=== PATIENT | female | born 1950 | race Caucasian/White ===

== ENCOUNTER 2017-03-26 11:20 | Inpatient (IN) | payer OTHER ==
[~2017-03-26] VITALS: Ht 162.6 cm; Wt 91.1 kg
[~2017-03-26 11:20] MED LIST: ALPR-385 PO; CALCTAB7 PO; CITA20TA9 PO; DSY100 PO; EPP3/2 IM; HYDR25TA4 PO; LEVO50TA6 PO; LRS10 PO; MAGN1TAB19 PO; MCRK20 PO; METO50TA17 PO; MORP1TAB12 PO; MRLP17 PO; MULT-506 PO; NORT10CA3 PO; NRV5 PO; PRAZ1CAP PO; PROC5TAB PO; PROM25TA16 PO; PRT40 PO; PTDOPS OPB; RXC5 PO; TRAM-10 PO
[2017-03-26] MEDS ORDERED: SODIUM CHLORIDE 0.9% 1000ML 1,000 ML IV STA (11:36)
--- NOTE | 2017-03-26 11:44 | EMERGENCY ROOM VISIT NOTE ---
History Report prepared by Fariba: Kuldip Bright Under the Supervision of: Dr. Alexx Ortiz D.O. First contact with patient: 11:34 Chief Complaint: CHEST PAIN Stated Complaint: CHEST PAIN Nursing Triage Summary: Pt states she has had chest pain off and on, center of chest, for the past 10- 11 days, was at her FMD office at [facility] (Dr Spann), pain 8 out of 10, and they summoned EMS. Pt was also nauseated, prehospital gave her 4 mg zofran ODT and 1 ntg sublingual. Pt has a port that was not accessed. IV attempt post NTG per paramedics. Pain remains the same. Pt was saturating 90% at the scene and was placed on 2 liters NC O2. Pts BP prior to NTG 114/90 BP post NTG 83/42 History of Present Illness The patient is a 67 year old female who presents to the Emergency Room with complaints of chest pain. The patient went to see her primary care physician today for chest pain which he describes a pressure. She states the pain is constant and in the middle of her chest. She doesn't a history of pulmonary embolism but was sent to the emergency department by ambulance for an abnormal EKG. The patient states that she does feel short of breath. The pain is also worse with exertion. She's had the pain for 11 days and states it is mostly constant but there are times when it feels better. She was given oxygen and nitroglycerin prior to arrival. Her blood pressure did drop prior to arrival. She was also noted to have a low oxygen saturation and was sent to the emergency department for an evaluation. The patient's pulse oxygen saturation was 90% on room air prior to arrival. In our emergency department she was 89% on room air. She feels significantly improved on oxygen. She also has a boot on her left foot for a "bad ankle sprain" he was put on by an orthopedic physician. The patient denies having any vomiting or diarrhea. She was treated with Zofran prior to arrival for nausea. The patient states that she has not had similar symptoms in the past but does state that she has a history of pulmonary embolism which felt different than this encounter. Although she also states that she is not entirely sure. Source of History: patient Onset: 11 days Position: chest Quality: pressure Timing: other (mostly constant) Modifying Factors (Worsening): exertion Associated Symptoms: + SOB, + nausea, No vomiting, No diarrhea Note: Associated symptoms: Low oxygen saturation. Review of Systems See HPI for pertinent positives & negatives. A total of 10 systems reviewed and were otherwise negative. Past Medical & Surgical Medical Problems: (1) Adjustment disorder with depressed mood (2) Cervical spondylolysis (3) Dyslipidemia (4) HTN (hypertension) (5) Hypothyroidism (6) Intra-abdominal abscess (7) Lumbago (8) Post-op pain (9) PTSD (post-traumatic stress disorder) (10) Scoliosis Surgical Problems: (1) H/O colonoscopy (2) H/O ovarian cystectomy (3) H/O repair of right rotator cuff (4) H/o right knee meniscus repair (5) H/O spinal fusion (6) S/P appendectomy Family History Cancer Cardiac disorder BROTHER Diabetes mellitus FH: CHF (congestive heart failure) Heart disease Hypertension FATHER MOTHER Lung disease Social History Smoking Status: Never Smoker Alcohol Use: none Drug Use: none Marital Status: single Housing Status: lives alone Occupation Status: retired Current/Historical Medications Scheduled Amlodipine Besylate (Amlodipine Besylate), 5 MG PO DAILY Calcium Carbonate-Vitamin D W/ (Caltrate 600 Plus), 1 TAB PO BID Citalopram Hydrobromide (Celexa), 1 TAB PO DAILY Hydrochlorothiazide (Hctz), 25 MG PO DAILY Levothyroxine Sodium (Levothyroxine Sodium), 1 TAB PO DAILY Magnesium Oxide (Mg Supplement (Magnesium Oxide), 400 MG PO BID Metoprolol Tartrate (Metoprolol Tartrate), 50 MG PO BID Morphine Sulfate (Morphine Sulfate Er), 30 MG PO Q12 Multivitamin (Multivitamin), 1 TAB PO DAILY Olopatadine Hydrochloride (Pataday), 1 DROPS OPB DAILY Pantoprazole (Pantoprazole Sodium), 40 MG PO QAM Polyethylene (Miralax), 17 GM PO DAILY Potassium Chloride (Klor-Con M20), 20 MEQ PO BID Prazosin Hcl (Minipress), 1 MG PO HS Trazodone HCl (Trazodone HCl), 100 MG PO HS Scheduled PRN Alprazolam (Xanax), 1 MG PO TID PRN for Anxiety Baclofen (Baclofen), 10 MG PO TID PRN for Muscle Spasm Epinephrine (Epipen 2-Lee), 0.3 MG IM UD PRN for ALLERGIC REACTION Oxycodone HCl (Oxycodone HCl), 5 MG PO QID PRN for Breakthrough Pain Prochlorperazine Maleate (Compazine), 10 MG PO for Nausea Promethazine HCl (Promethazine HCl), 25 MG PO BID PRN for Nausea Tramadol (Ultram), 50 MG PO Q6H PRN for Pain Allergies Coded Allergies: Latex (Verified Allergy, Intermediate, RASH, 03/26/17) Nickel (Verified Allergy, Intermediate, SEVERE DERMATITIS, 03/26/17) Aspirin (Verified Adverse Reaction, Unknown, bleeding ulcers, 03/26/17) 03/26/17--dr flores inquired about aspirin allergy & reviewd history--pt has had bleeding in past while on anticoagulation, as of 03/26/17--no gi ulcers present & aspirin ok to give Physical Exam Vital Signs Date Time Temp Pulse Resp B/P (MAP) Pulse Ox O2 Delivery O2 Flow Rate FiO2 03/26/17 13:11 72 17 125/63 94 Nasal Cannula 2.0 03/26/17 12:16 64 03/26/17 12:04 94 Nasal Cannula 2.0 03/26/17 11:59 61 16 116/63 94 Nasal Cannula 2.0 03/26/17 11:29 93 Nasal Cannula 2.0 03/26/17 11:26 36.9 70 17 89 Room Air Physical Exam GENERAL: Patient is awake and alert. She appears uncomfortable and anxious. She is not diaphoretic at this time. EYES: The conjunctivae are clear. The pupils are round and reactive. EARS, NOSE, MOUTH AND THROAT: The nose is without any evidence of any deformity. Mucous membranes are moist tongue is midline NECK: The neck is nontender and supple. RESPIRATORY: Normal respiratory effort is noted there is no evidence of wheezing rhonchi or rales CARDIOVASCULAR: Regular rate and rhythm noted there no murmurs rubs or gallops normal S1 normal S2 GASTROINTESTINAL: The abdomen is soft. Bowel sounds are present in all quadrants. Abdomen is nontender MUSCULOSKELETAL/EXTREMITIES: There is no evidence of gross deformity. There is a bruit on the left ankle. There is tenderness in the left calf. SKIN: There is no obvious evidence of any rash. Bilateral pedal edema was noted left greater than right. NEUROLOGIC: Patient is awake alert and oriented x3. Medical Decision & Procedures ER Provider Diagnostic Interpretation: Radiology results as stated below per my review and radiologist interpretation: CHEST ONE VIEW PORTABLE CLINICAL HISTORY: Respiratory distress. Dyspnea COMPARISON STUDY: Chest radiograph September 23, 2016. FINDINGS: A left subclavian [id number] is in place. There is no pneumothorax. Hazy bibasilar opacities have developed. There is pulmonary vascular congestion without overt edema. IMPRESSION: Interval development of hazy bibasilar opacities. In part, the findings could be related to overlying soft tissues although airspace disease, pulmonary edema or layering pleural effusions could appear similar. Electronically signed by: Gonsalo Villafana M.D. 03/26/2017 12:30 PM Dictated Date/Time: 03/26/2017 12:[address] ANGIOGRAM OF THE CHEST CLINICAL HISTORY: Atypical chest pain. COMPARISON STUDY: Chest x-ray dated 03/26/2017. Chest CT dated 02/16/2015 and 08/07/2014. TECHNIQUE: Following the IV administration of 100 cc of Optiray 320, CT angiogram of the chest was performed from the upper abdomen to the thoracic inlet utilizing the pulmonary embolus protocol. Images are reviewed in the axial, sagittal, and coronal planes. 3-D MIPS images are created and assessed. IV contrast was administered without complication. CT DOSE: 576.96 mGycm FINDINGS: Thyroid: Imaged portions of the thyroid gland are normal in size and attenuation. Thoracic aorta: There is mild ectasia of the ascending thoracic aorta which measures up to 3.9 cm in diameter. The remainder of the thoracic aorta is normal in caliber and the arch demonstrates standard 3-vessel anatomy. No dissection is seen. A left subclavian central venous infusion port is in place. Pulmonary vasculature: The pulmonary trunk is dilated measuring 3.5 cm in diameter. This suggests pulmonary artery hypertension. There are no filling defects identified in main, lobar, or segmental pulmonary branches to suggest pulmonary embolus. Heart: The heart is enlarged and without pericardial effusion. Lungs and pleural spaces: Emphysematous change is noted. There is volume loss in the left lung with hyperinflation of the right lung. Scarring and fibrosis is seen at the left lung base. Previous surgery/resection is not excluded. There is dependent atelectasis. No airspace consolidation is seen typical for pneumonia. Trace pleural effusions are identified. Diffuse intralobular septal thickening suggests a component of congestive failure. Scattered calcified granulomas are observed. The trachea and central airways are clear. Mediastinum: There are subcentimeter mediastinal lymph nodes. These are not pathologically enlarged by size criteria. A right paratracheal node image #193 measures 9 mm in short axis. Gracia: Clear. Axillae: There is no axillary lymphadenopathy. Upper abdomen: There is evidence of hepatic steatosis. A small hiatal hernia is identified. Skeletal structures: The skeletal structures are osteopenic. There are postoperative changes from extensive thoracolumbar laminectomy. Thoracolumbar scoliosis is observed. There is been resection of several left-sided ribs. No lytic or blastic bony lesions are seen. IMPRESSION: 1. There is no evidence of pulmonary embolus in the main, lobar, or segmental pulmonary arteries. 2. Cardiomegaly and emphysema with evidence of pulmonary artery hypertension. 3. There are trace pleural effusions. Diffuse intralobular septal thickening suggests a component of congestive failure. Clinical correlation will be required. 4. There is volume loss in the left lung with compensatory hyperinflation of the right lung. Correlate clinically for a history of previous surgery. 5. Trace pleural effusions are identified. 6. Hepatic steatosis. 7. There is mild ectasia of the ascending thoracic aorta which measures up to 3.9 cm. This is similar in appearance to prior studies. 8. Additional findings as above. Electronically signed by: Ivan Smith M.D. 03/26/2017 1:51 PM Dictated Date/Time: 03/26/2017 1:43 PM Laboratory Results Test 03/26/17 11:50 03/26/17 11:58 03/26/17 12:03 03/26/17 12:11 White Blood Count 6.68 K/uL (4.8-10.8) Red Blood Count 4.27 M/uL (4.2-5.4) Hemoglobin 13.1 g/dL (12.0-16.0) Hematocrit 37.6 % (37-47) Mean Corpuscular Volume 88.1 fL (80-100) Mean Corpuscular Hemoglobin 30.7 pg (25-34) Mean Corpuscular Hemoglobin Concent 34.8 g/dl (32-36) Platelet Count 227 K/uL (130-400) Mean Platelet Volume 9.5 fL (7.4-10.4) Neutrophils (%) (Auto) 58.8 % Lymphocytes (%) (Auto) 29.9 % Monocytes (%) (Auto) 8.5 % Eosinophils (%) (Auto) 2.1 % Basophils (%) (Auto) 0.6 % Neutrophils # (Auto) 3.92 K/uL (1.4-6.5) Lymphocytes # (Auto) 2.00 K/uL (1.2-3.4) Monocytes # (Auto) 0.57 K/uL (0.11-0.59) Eosinophils # (Auto) 0.14 K/uL (0-0.5) Basophils # (Auto) 0.04 K/uL (0-0.2) Prothrombin Time 10.7 SECONDS (9.0-12.0) Prothromb Time International Ratio 1.0 (0.9-1.1) Total Bilirubin 0.4 mg/dl (0.2-1) Direct Bilirubin 0.1 mg/dl (0-0.2) Aspartate Amino Transf (AST/SGOT) 24 U/L (15-37) Alanine Aminotransferase (ALT/SGPT) 27 U/L (12-78) Alkaline Phosphatase 97 U/L (45-117) Total Creatine Kinase 223 U/L (26-192) Creatine Kinase MB 3.6 ng/ml (0.5-3.6) Creatine Kinase MB Ratio 1.6 (0-3.0) Pro-B-Type Natriuretic Peptide 397 pg/ml (0-900) Total Protein 6.9 gm/dl (6.4-8.2) Albumin 3.6 gm/dl (3.4-5.0) Hepatitis C Antibody NEG (NEG) Bedside D-Dimer > 450 ng/mlFEU (0-450) Bedside Hemoglobin 13.3 g/dl (12.0-16.0) Bedside Hematocrit 39 % (37-47) Bedside Sodium 140 mEq/L (135-144) Bedside Potassium 3.7 mEq/L (3.3-5.0) Bedside Chloride 102 mEq/L (101-112) Bedside Total CO2 26 mEq/l (24-31) Bedside Blood Urea Nitrogen 10 mg/dl (7-18) Bedside Creatinine 0.6 mg/dl (0.6-1.3) Bedside Glucose (other) 112 mg/dl (70-99) Bedside Ionized Calcium (Corbin) 1.17 mmol/l (1.12-1.32) Test 03/26/17 13:55 Urine Color YELLOW Urine Appearance CLEAR (CLEAR) Urine pH 5.5 (4.5-7.5) Urine Specific Casper 1.012 (1.000-1.030) Urine Protein NEG (NEG) Urine Glucose (UA) NEG (NEG) Urine Ketones NEG (NEG) Urine Occult Blood NEG (NEG) Urine Nitrite NEG (NEG) Urine Bilirubin NEG (NEG) Urine Urobilinogen NEG (NEG) Urine Leukocyte Esterase NEG (NEG) Laboratory results per my review. Medications Administered Medications (Trade) Dose Ordered Sig/Pablo Route Start Time Stop Time Status Last Admin Dose Admin Sodium Chloride 1,000 ml @ 999 mls/hr Q1H1M STAT IV 03/26/17 11:36 03/26/17 12:36 DC 03/26/17 11:58 999 MLS/HR Morphine Sulfate (MoRPHine SULFATE INJ) 4 mg Q15M PRN IV 03/26/17 14:00 03/26/17 15:19 DC 03/26/17 14:07 4 MG Ondansetron HCl (Zofran Inj) 4 mg NOW STAT IV 03/26/17 13:59 03/26/17 14:01 DC 03/26/17 14:07 4 MG Pantoprazole Sodium 40 mg/ Syringe 10 ml @ 5 mls/min NOW ONCE IV 03/26/17 14:00 03/26/17 14:01 DC 03/26/17 14:20 5 MLS/MIN Alprazolam (Xanax Tab) 1 mg TID PRN PO 03/26/17 14:15 04/25/17 14:14 03/27/17 07:42 1 MG Baclofen (Lioresal Tab) 10 mg TID PRN PO 03/26/17 14:15 04/25/17 14:14 03/27/17 07:43 10 MG Oxycodone HCl (Roxicodone Immediate Rel Tab) 5 mg QID PRN PO 03/26/17 14:15 04/09/17 14:14 03/27/17 13:06 5 MG Tramadol HCl (Ultram Tab) 50 mg Q6H PRN PO 03/26/17 14:15 04/25/17 14:14 03/27/17 13:47 50 MG ECG Indication: chest pain Rate (beats per minute): 63 Rhythm: normal sinus Findings: nonspecific-ST abn (Anterolateral), T-wave inversion (Anterior), no ectopy Change: no significant change (09/17/2016) ED Course 1135: The patient was evaluated in room A9B. A complete history and physical examination were performed. 1136: Ordered NSS 1000 ml @ 999 mls/hr IV. 1358: I reevaluated the patient and she is resting comfortably. The patient verbally expressed understanding and agreement with the treatment plan. The patient will be evaluated for further treatment. 1359: Ordered Zofran Inj 4 mg IV. 1400: Ordered Pantoprazole Sodium 40 mg/Syringe 10 ml @ 5 mls/min IV, Morphine Sulfate Inj 4 mg IV PRN. 1410: I discussed the patient with Dr. Braulio Simental dye tub operator. She will evaluate the patient for further treatment. Medical Decision Prior records/ancillary studies reviewed. Triage Nursing notes reviewed. The patient's history was concerning for chest pain. Differential diagnosis: Etiologies such as cardiac ischemia, aortic dissection, pulmonary embolism, pneumonia, pneumothorax, musculoskeletal, infections, pericarditis, myocarditis , esophageal rupture, gastrointestinal, as well as others were entertained. Medication Reconciliation: I attest that I have personally reviewed the patient' s current medications list. Blood pressure screening: Patient was found to have normal blood pressure on screening and does not require follow-up. The patient is a 67-year-old female who presented to the emergency department from her primary care physician's office with chest pain and abnormal EKG. The patient had ongoing chest pain or the last 9-10 days. She states the pain is intermittent and sometimes associated with exertion as well as shortness of breath. She has a history of venous thromboembolic disease and is currently being treated for an injury on her left ankle. She has a brace on her left ankle. Initially I thought her condition could be consistent with pulmonary embolism because she had a pulse ox that was low in her history was suggestive of venous thromboembolic disease. The patient had a CT the chest which did not show any acute pulmonary embolism but did show some concerning findings which could be consistent with pulmonary hypertension or possibly congestive changes. I discussed the patient's laboratory and radiographic studies with her. She refused aspirin and was treated with nitroglycerin prior to arrival which caused her to have hypotension. She was given a fluid bolus as well as morphine for pain medication. She was feeling much better on subsequent reevaluation. I discussed this case with the on-call [facility] hospitalist. They've agreed to evaluate the patient in emergency apartment further management and disposition. [place] Drug Monitoring Program Search Results: patient reviewed within database, no issues identified Consults Time Called: 1400 Consulting Physician: Dr. Braulio Simental dye tub operator Returned Call: 1410 I discussed the patient with Dr. Braulio Simental dye tub operator. She will evaluate the patient for further treatment. Impression Primary Impression: Chest pain Additional Impressions: Abnormal EKG Hypoxia Elevated troponin Scribe Attestation The scribe's documentation has been prepared under my direction and personally reviewed by me in its entirety. I confirm that the note above accurately reflects all work, treatment, procedures, and medical decision making performed by me. Departure Information Dispostion Being Evaluated By Hospitalist Referrals Charanjit Spann M.D.([facility]) (PCP) Patient Instructions My [facility] Problem Qualifiers Primary Impression: Chest pain Chest pain type: unspecified Qualified Codes: R07.9 - Chest pain, unspecified
[2017-03-26 12:08] LABS: BASO % 0.6 %; BASO ABS # 0.04 K/uL (0-0.2); COMPLETE YES; EOS % 2.1 %; HEMATOCRIT 37.6 % (37-47); IG% 0.1 %; LYMPH % 29.9 %; MEAN CELL VOLUME 88.1 fL (80-100); MEAN CORPUSCULAR HEMOGLOBIN 30.7 pg (25-34); MEAN CORPUSCULAR HGB CONC 34.8 g/dl (32-36); MEAN PLATELET VOLUME 9.5 fL (7.4-10.4); MONO % 8.5 %; NEUT % 58.8 %; PLATELET COUNT 227 K/uL (130-400); RED BLOOD COUNT 4.27 M/uL (4.2-5.4); WHITE BLOOD COUNT 6.68 K/uL (4.8-10.8)
[2017-03-26 12:21] LABS: PARTIAL THROMBOPLASTIN RATIO 1.1; PROTHROMBIN TIME (PATIENT) 10.7 SECONDS (9.0-12.0)
[2017-03-26 12:24] LABS: ISTAT CREATININE 0.6 mg/dl (0.6-1.3); ISTAT HEMOGLOBIN 13.3 g/dl (12.0-16.0); ISTAT IONIZED CALCIUM 1.17 mmol/l (1.12-1.32)
[2017-03-26] MEDS ORDERED: OPTIRAY 320 IV PRN (12:30)
--- NOTE | 2017-03-26 12:32 | DIAGNOSTIC IMAGING REPORT ---
CHEST ONE VIEW PORTABLE CLINICAL HISTORY: Respiratory distress. Dyspnea COMPARISON STUDY: Chest radiograph September 23, 2016. FINDINGS: A left subclavian [id number] is in place. There is no pneumothorax. Hazy bibasilar opacities have developed. There is pulmonary vascular congestion without overt edema. IMPRESSION: Interval development of hazy bibasilar opacities. In part, the findings could be related to overlying soft tissues although airspace disease, pulmonary edema or layering pleural effusions could appear similar. Electronically signed by: Gonsalo Villafana M.D. 03/26/2017 12:30 PM Dictated Date/Time: 03/26/2017 12:26 PM
[2017-03-26 12:36] LABS: BUN/CREATININE RATIO 15.5 (10-20); CALCIUM 8.8 mg/dl (8.5-10.1); CREATININE 0.69 mg/dl (0.60-1.20); POTASSIUM 3.7 mmol/L (3.5-5.1)
[2017-03-26] MEDS ORDERED: LEVO75TA5 PO (12:42)
[2017-03-26 12:44] LABS: CKMB/CK RATIO 1.6 (0-3.0)
--- NOTE | 2017-03-26 13:53 | DIAGNOSTIC IMAGING REPORT ---
CT ANGIOGRAM OF THE CHEST CLINICAL HISTORY: Atypical chest pain. COMPARISON STUDY: Chest x-ray dated 03/26/2017. Chest CT dated 02/16/2015 and 08/07/2014. TECHNIQUE: Following the IV administration of 100 cc of Optiray 320, CT angiogram of the chest was performed from the upper abdomen to the thoracic inlet utilizing the pulmonary embolus protocol. Images are reviewed in the axial, sagittal, and coronal planes. 3-D MIPS images are created and assessed. IV contrast was administered without complication. CT DOSE: 576.96 mGycm FINDINGS: Thyroid: Imaged portions of the thyroid gland are normal in size and attenuation. Thoracic aorta: There is mild ectasia of the ascending thoracic aorta which measures up to 3.9 cm in diameter. The remainder of the thoracic aorta is normal in caliber and the arch demonstrates standard 3-vessel anatomy. No dissection is seen. A left subclavian central venous infusion port is in place. Pulmonary vasculature: The pulmonary trunk is dilated measuring 3.5 cm in diameter. This suggests pulmonary artery hypertension. There are no filling defects identified in main, lobar, or segmental pulmonary branches to suggest pulmonary embolus. Heart: The heart is enlarged and without pericardial effusion. Lungs and pleural spaces: Emphysematous change is noted. There is volume loss in the left lung with hyperinflation of the right lung. Scarring and fibrosis is seen at the left lung base. Previous surgery/resection is not excluded. There is dependent atelectasis. No airspace consolidation is seen typical for pneumonia. Trace pleural effusions are identified. Diffuse intralobular septal thickening suggests a component of congestive failure. Scattered calcified granulomas are observed. The trachea and central airways are clear. Mediastinum: There are subcentimeter mediastinal lymph nodes. These are not pathologically enlarged by size criteria. A right paratracheal node image #193 measures 9 mm in short axis. Gracia: Clear. Axillae: There is no axillary lymphadenopathy. Upper abdomen: There is evidence of hepatic steatosis. A small hiatal hernia is identified. Skeletal structures: The skeletal structures are osteopenic. There are postoperative changes from extensive thoracolumbar laminectomy. Thoracolumbar scoliosis is observed. There is been resection of several left-sided ribs. No lytic or blastic bony lesions are seen. IMPRESSION: 1. There is no evidence of pulmonary embolus in the main, lobar, or segmental pulmonary arteries. 2. Cardiomegaly and emphysema with evidence of pulmonary artery hypertension. 3. There are trace pleural effusions. Diffuse intralobular septal thickening suggests a component of congestive failure. Clinical correlation will be required. 4. There is volume loss in the left lung with compensatory hyperinflation of the right lung. Correlate clinically for a history of previous surgery. 5. Trace pleural effusions are identified. 6. Hepatic steatosis. 7. There is mild ectasia of the ascending thoracic aorta which measures up to 3.9 cm. This is similar in appearance to prior studies. 8. Additional findings as above. Electronically signed by: Ivan Smith M.D. 03/26/2017 1:51 PM Dictated Date/Time: 03/26/2017 1:43 PM
[2017-03-26] MEDS ORDERED: ONDANSETRON INJ 2 MG/ML 2 ML VIAL IV STA (13:59)
[2017-03-26] MEDS ORDERED: MoRPHine SULFATE 4 MG/ML 1 ML CARP\\VIAL IV PRN (14:00)
[2017-03-26] MEDS ORDERED: PANTOprazole INJ 40 MG in SYRINGE 0 ML IV ONE (14:00)
[2017-03-26 14:19] LABS: URINE APPEARANCE CLEAR (CLEAR); URINE BILIRUBIN NEG (NEG); URINE COLOR YELLOW; URINE NITRITE NEG (NEG); URINE PH 5.5 (4.5-7.5); URINE SPECIFIC GRAVITY 1.012 (1.000-1.030); UROBILINOGEN NEG (NEG)
[2017-03-26 14:20] LABS: MANUAL MICROSCOPIC REQUIRED? NO; REVIEW REQ? NO
[2017-03-26] MEDS ORDERED: POLYETHYLENE (MIRALAX) 17 GM PACK PO PRN (14:30)
[2017-03-26] MEDS ORDERED: ENOXAPARIN 40 MG/0.4 ML SYR SC SCH (14:30)
[2017-03-26] MEDS ORDERED: ACETAMINOPHEN 325 MG TAB PO PRN (14:30)
[2017-03-26] MEDS ORDERED: NITROGLYCERIN 0.4 MG SL PER TAB CHARGE SL PRN (14:30)
[2017-03-26] MEDS ORDERED: IV FLUIDS COMPLETED PRN (14:30)
[2017-03-26 15:00] VITALS: BP 125/69; PULSE 61; TEMP 37; O2SAT 94; Ht 162.6 cm; Wt 91.1 kg
--- NOTE | 2017-03-26 15:06 | History and Physical ---
History & Physical Date & Time of Service: Mar 26, 2017 at 14:49 Chief Complaint: Chest Pain Primary Care Physician: Charanjit Spann M.D.(MARGA) History of Present Illness Source: patient The patient is a 67 year old female with PMH as below who presents to the Emergency Room with complaints of chest pain. Patient is supposed to have Breast reduction surgery next week, for which she did see physician in [facility]. Per her, some EKG changes were noted and she was referred to her PCP to evaluate this further. Patient did not have any chest pain during the evaluation at [facility]. But for past 11 days, she has chest pain, left sided - pressure like , non radiating , with no aggravating/relieving factors, associated with some SOB, nausea, but no palpitations, diaphoresis. Denies any cough, worsening of leg swelling, fever, chills. For this, she went to see her PCP today who did EKG which revealed ST segment depressions, which were reviewed by cardiology as well and was referred to ER for further evaluation. Of note, she was supposed to have Stress echo tomorrow. In ED, she c/o chest pain , left sided. Asking for IV pain medications, prefers IV narcotics. EKG- compared to one on 09/17/16 shows no acute changes, has T wave inversions in leads V-V3, q wave in III, which are old, Troponin slightly elevated 0.258 CXR- bibasilar opacities, CT scan done sec to elevated d dimer- no PE, possible pulmonary edema. Will admit her for chest pain with elevated troponin- for further evaluation and mx. Past Medical/Surgical History Medical Problems: (1) Adjustment disorder with depressed mood Status: Chronic (2) Cervical spondylolysis Status: Chronic (3) Dyslipidemia Status: Chronic (4) HTN (hypertension) Status: Chronic (5) Hypothyroidism Status: Chronic (6) Lumbago Status: Chronic (7) Post-op pain Status: Chronic (8) PTSD (post-traumatic stress disorder) Status: Chronic (9) Scoliosis Status: Chronic Surgical Problems: (1) H/O colonoscopy Permanent Comment: 03/08/2015- ischemic colitis, diverticulosis Status: Chronic (2) H/O ovarian cystectomy Status: Chronic (3) H/O repair of right rotator cuff Status: Chronic (4) H/o right knee meniscus repair Status: Chronic (5) H/O spinal fusion Permanent Comment: 1st surgery in [place], then multiple surgeries Dr. Catherine at [facility] Status: Chronic (6) S/P appendectomy Status: Chronic Family History Cancer Cardiac disorder BROTHER Diabetes mellitus FH: CHF (congestive heart failure) Heart disease Hypertension FATHER MOTHER Lung disease Social History Smoking Status: Never Smoker Drug Use: none Marital Status: single Housing status: lives alone Occupational Status: retired Immunizations History of Influenza Vaccine: N/A Influenza Vaccine Date: Jul 26, 2012 History of Tetanus Vaccine?: Yes Tetanus Immunization Date: Jun 19, 2010 History of Pneumococcal: Yes Pneumococcal Date: Jun 01, 2012 History of Hepatitis B Vaccine: No Multi-Drug Resistant Organisms History of MDRO: No Allergies Coded Allergies: Latex (Unverified Allergy, Intermediate, RASH, 03/26/17) Nickel (Verified Allergy, Intermediate, SEVERE DERMATITIS, 03/26/17) Aspirin (Verified Allergy, Unknown, bleeding ulcers, 03/26/17) Home Medications Scheduled Amlodipine Besylate (Amlodipine Besylate), 5 MG PO DAILY Calcium Carbonate-Vitamin D W/ (Caltrate 600 Plus), 1 TAB PO BID Citalopram Hydrobromide (Celexa), 1 TAB PO DAILY Hydrochlorothiazide (Hctz), 25 MG PO DAILY Levothyroxine Sodium (Levothyroxine Sodium), 1 TAB PO DAILY Magnesium Oxide (Mg Supplement (Magnesium Oxide), 400 MG PO BID Metoprolol Tartrate (Metoprolol Tartrate), 50 MG PO BID Morphine Sulfate (Morphine Sulfate Er), 30 MG PO Q12 Multivitamin (Multivitamin), 1 TAB PO DAILY Olopatadine Hydrochloride (Pataday), 1 DROPS OPB DAILY Pantoprazole (Pantoprazole Sodium), 40 MG PO QAM Polyethylene (Miralax), 17 GM PO DAILY Potassium Chloride (Klor-Con M20), 20 MEQ PO BID Prazosin Hcl (Minipress), 1 MG PO HS Trazodone HCl (Trazodone HCl), 100 MG PO HS Scheduled PRN Alprazolam (Xanax), 1 MG PO TID PRN for Anxiety Baclofen (Baclofen), 10 MG PO TID PRN for Muscle Spasm Epinephrine (Epipen 2-Lee), 0.3 MG IM UD PRN for ALLERGIC REACTION Oxycodone HCl (Oxycodone HCl), 5 MG PO QID PRN for Breakthrough Pain Prochlorperazine Maleate (Compazine), 10 MG PO for Nausea Promethazine HCl (Promethazine HCl), 25 MG PO BID PRN for Nausea Tramadol (Ultram), 50 MG PO Q6H PRN for Pain Review of Systems Constitutional: No fever, No chills Eyes: No worsening of vision, No eye pain ENT: No hearing loss, No nasal symptoms Respiratory: No cough, No sputum, No wheezing Cardiovascular: + chest pain, No edema, No palpitations Abdomen: + nausea, No pain, No vomiting, No diarrhea Genitourinary - Female: No dysuria, No urinary frequency Neurologic: No memory loss, No paralysis Endocrine: No fatigue Hematologic / Lymphatic: No abnormal bleeding/bruising Integumentary: No rash Physical Exam Vital Signs Date Time Temp Pulse Resp B/P (MAP) Pulse Ox O2 Delivery O2 Flow Rate FiO2 03/26/17 14:36 72 17 125/63 94 03/26/17 13:11 72 17 125/63 94 Nasal Cannula 2.0 03/26/17 12:16 64 03/26/17 12:04 94 Nasal Cannula 2.0 03/26/17 11:59 61 16 116/63 94 Nasal Cannula 2.0 03/26/17 11:29 93 Nasal Cannula 2.0 03/26/17 11:26 36.9 70 17 89 Room Air General Appearance: no apparent distress Head: normocephalic, atraumatic Eyes: PERRL ENT: hearing grossly normal Neck: supple, no JVD Respiratory/Chest: lungs clear, + pertinent finding (reproducible tenderness) Cardiovascular: regular rate, rhythm, no edema Abdomen/GI: normal bowel sounds, non tender, soft Extremities/Musculoskelatal: normal inspection, no calf tenderness Neurologic/Psych: alert, oriented x 3, + pertinent finding (no deficits) Skin: normal color Diagnostics Laboratory Results Results Past 24 Hours Test 03/26/17 11:50 03/26/17 12:03 03/26/17 12:11 03/26/17 13:55 Range/Units White Blood Count 6.68 4.8-10.8 K/uL Red Blood Count 4.27 4.2-5.4 M/uL Hemoglobin 13.1 12.0-16.0 g/dL Hematocrit 37.6 37-47 % Mean Corpuscular Volume 88.1 80-100 fL Mean Corpuscular Hemoglobin 30.7 25-34 pg Mean Corpuscular Hemoglobin Concent 34.8 32-36 g/dl Platelet Count 227 130-400 K/uL Mean Platelet Volume 9.5 7.4-10.4 fL Neutrophils (%) (Auto) 58.8 % Lymphocytes (%) (Auto) 29.9 % Monocytes (%) (Auto) 8.5 % Eosinophils (%) (Auto) 2.1 % Basophils (%) (Auto) 0.6 % Neutrophils # (Auto) 3.92 1.4-6.5 K/uL Lymphocytes # (Auto) 2.00 1.2-3.4 K/uL Monocytes # (Auto) 0.57 0.11-0.59 K/uL Eosinophils # (Auto) 0.14 0-0.5 K/uL Basophils # (Auto) 0.04 0-0.2 K/uL RDW Standard Deviation 49.9 36.4-46.3 fL RDW Coefficient of Variation 15.5 11.5-14.5 % Immature Granulocyte % (Auto) 0.1 % Immature Granulocyte # (Auto) 0.01 0.00-0.02 K/uL Prothrombin Time 10.7 9.0-12.0 SECONDS Prothromb Time International Ratio 1.0 0.9-1.1 Activated Partial Thromboplast Time 28.9 21.0-31.0 SECONDS Partial Thromboplastin Ratio 1.1 Sodium Level 142 136-145 mmol/L Potassium Level 3.7 3.5-5.1 mmol/L Chloride Level 106 98-107 mmol/L Carbon Dioxide Level 27 21-32 mmol/L Anion Gap 9.0 17.0 16-25 mmol/L Blood Urea Nitrogen 11 7-18 mg/dl Creatinine 0.69 0.60-1.20 mg/dl Est Creatinine Clear Calc Drug Dose 85.1 ml/min Estimated GFR () 102.9 Estimated GFR (Non- 88.8 BUN/Creatinine Ratio 15.5 10-20 Random Glucose 107 70-99 mg/dl Calcium Level 8.8 8.5-10.1 mg/dl Total Bilirubin 0.4 0.2-1 mg/dl Direct Bilirubin 0.1 0-0.2 mg/dl Aspartate Amino Transf (AST/SGOT) 24 15-37 U/L Alanine Aminotransferase (ALT/SGPT) 27 12-78 U/L Alkaline Phosphatase 97 45-117 U/L Total Creatine Kinase 223 26-192 U/L Creatine Kinase MB 3.6 0.5-3.6 ng/ml Creatine Kinase MB Ratio 1.6 0-3.0 Troponin I 0.258 0-0.045 ng/ml Pro-B-Type Natriuretic Peptide 397 0-900 pg/ml Total Protein 6.9 6.4-8.2 gm/dl Albumin 3.6 3.4-5.0 gm/dl Bedside D-Dimer > 450 0-450 ng/mlFEU Bedside Hemoglobin 13.3 12.0-16.0 g/dl Bedside Hematocrit 39 37-47 % Bedside Sodium 140 135-144 mEq/L Bedside Potassium 3.7 3.3-5.0 mEq/L Bedside Chloride 102 101-112 mEq/L Bedside Total CO2 26 24-31 mEq/l Bedside Blood Urea Nitrogen 10 7-18 mg/dl Bedside Creatinine 0.6 0.6-1.3 mg/dl Bedside Glucose (other) 112 70-99 mg/dl Bedside Ionized Calcium (Corbin) 1.17 1.12-1.32 mmol/l Urine Color YELLOW Urine Appearance CLEAR CLEAR Urine pH 5.5 4.5-7.5 Urine Specific [place] 1.012 1.000-1.030 Urine Protein NEG NEG Urine Glucose (UA) NEG NEG Urine Ketones NEG NEG Urine Occult Blood NEG NEG Urine Nitrite NEG NEG Urine Bilirubin NEG NEG Urine Urobilinogen NEG NEG Urine Leukocyte Esterase NEG NEG Diagnostic Radiology CXR IMPRESSION: Interval development of hazy bibasilar opacities. In part, the findings could be related to overlying soft tissues although airspace disease, pulmonary edema or layering pleural effusions could appear similar. CT CHEST IMPRESSION: 1. There is no evidence of pulmonary embolus in the main, lobar, or segmental pulmonary arteries. 2. Cardiomegaly and emphysema with evidence of pulmonary artery hypertension. 3. There are trace pleural effusions. Diffuse intralobular septal thickening suggests a component of congestive failure. Clinical correlation will be required. 4. There is volume loss in the left lung with compensatory hyperinflation of the right lung. Correlate clinically for a history of previous surgery. 5. Trace pleural effusions are identified. 6. Hepatic steatosis. 7. There is mild ectasia of the ascending thoracic aorta which measures up to 3.9 cm. This is similar in appearance to prior studies. 8. Additional findings as above. Impression Assessment and Plan PROBABLE NSTEMI Sent from PCP office for chest pain, EKG changes, to rule out ischemia. Patient c/o chest pain, atypical, reproducible tenderness, not relieved by NTG. Has had multiple episodes of chest pain in past, non cardiac per notes -EKG in ED- T wave inversions V1-V3, Q wave in Lead III, old compared to EKG . -Troponin 0.258 -Allergic to aspirin, but secondary to ulcer---> will go ahead and give it. -IV Heparin - therapeutic per cardiology -Continue with Metoprolol 50 mg PO BID, start Aspirin, Statin -Trend troponin, Echocardiogram, Lipid panel in AM, HBA1C in AM. CT chest done due to elevated d dimer- No PE, possible pulmonary congestion, but clinically not volume overloaded and BNP 397 -Discussed case with cardiology- Considering cardiac cath depending on Echo results. ABNORMAL CT SCAN -Shows ectasia - ascending thoracic aorta up to 3.9 cm -Possible pulmonary congestion, however clinically no signs of congestion, BNP 397 HX OF CYCLICAL VOMITING SYNDROME Has had this issue in past, currently stable ANEMIA, CHRONIC -Stable CHRONIC PAIN ON NARCOTICS- -On Morphine 30 mg q 12 hours at home -Wants more IV narcotics. Received IV morphine 4 mg in ER\ -On Baclofen TID as at home DEPRESSION/ANXIETY -Continue with citalopram HYPERTENSION -Stable -Continue with home medications HYPOTHYROIDISM -Continue with synthroid DVT proph- IV heparin FULL CODE DISPOSITION Admit to telemetry Level of Care Telemetry Resuscitation Status FULL RESUSCITATION VTE Prophylaxis VTE Risk Assessment Done? Y/N: Yes Risk Level: Moderate Given or contraindicated: Other Anticoagulation (IV HEPARIN)
[2017-03-26] MEDS: NITROGLYCERIN OINT 2% 1GM PACKET EXT SCH ×2 (16:00→21:57)
[2017-03-26] MEDS ORDERED: ATORVASTATIN 40 MG TAB PO ONE (16:00)
[2017-03-26] MEDS: HEPARIN 25,000 UNIT/500ML D5W 500 ML IV PRN (16:23)
--- NOTE | 2017-03-26 16:42 | Cardiology Consultation ---
Cardiology Consultation Date of Consultation: Mar 26, 2017 History of Present Illness Ester Lua is a 67 year old female seen in cardiology consultation per the request of Dr Ruma Ramsey for the evaluation of chest discomfort. Care provider today described 10 days of waxing and waning chest discomfort that is been present at rest. She notes discomfort is worse when she takes a deep breath in. It is also resume when she does minimal movement such as moving her arms in bed. She is very concerned about this and is tearful when I talk to her on the telemetry floor in room 240-2. She has a complex past medical history includes chronic lumbar and thoracic back pain. She has been [place] recently [place] [facility] [place] plans for upcoming breast reduction surgery. As part of her preoperative evaluation she underwent an EKG at [facility] on 03/19/17 revealed sinus rhythm with age- indeterminate inferior infarction pattern with Q waves in lead III and AVF that was a chronic finding. There are also T-wave inversions noted in leads V1 to V3. She was counseled that she needed to follow-up with her primary care provider regarding his EKG changes. Although she states that she has had chest pain for 10 days, reportedly she was not having chest pain at the time of the initial EKG. Multiple tracings reviewed that been performed both at [facility] as well as at [facility], and the anterior T-wave inversions as well as age- indeterminate inferior infarction pattern relatively unchanged dating back to at least July 2016. EKG performed in the emergency department today reveal similar changes. There is concern about new ST segment depression on EKG performed the clinic today 03/26/17 for my review this is a limited tracing due to some degree of baseline artifact, and is somewhat helpful in comparison to the other tracings. The patient has an apparent long-standing history of recurrent chest discomfort and was followed by the [facility] [place] practice for many years. Review of her past records left and right heart catheterization took place at [facility] on 06/18/[address] Vance. Per the procedure note the cardiac catheterization was performed due to ongoing chest pain and shortness of breath with a previous stress test. Right sided hemodynamics. The patient went on to have coronary angiography that revealed a left dominant system with a nondominant right coronary artery. Left anterior descending coronary artery reportedly had mild luminal irregularities in the proximal and midportion graded as 20 and 30% stenosis. There is a noted 30% lesion in the left PDA branch. Ongoing medication therapy and risk factor modification was recommended for what was felt to be noncardiac chest discomfort at that time. The patient was seen by Dr Rodriguez cardiology consultation during an inpatient stay in July 2014 at which time was felt that her chest discomfort was musculoskeletal in etiology. In March 2016 the patient had a nonischemic response to dobutamine stress echocardiogram and [facility]. September 2016 the patient had abdominal surgery and chest pain a very mild elevation in her cardiac enzymes at that time. He was felt that her chest discomfort was not cardiac perhaps related to postoperative pain versus esophageal spasm was felt that the troponin elevation was due to postoperative myocardial demand. The patient was treated conservatively without further cardiac testing at that time. History Past Medical History: 1. Chart history of "aspirin allergy "when I spoke to the patient about this she stated that she was producing diagnosed with "ulcers" told not to take aspirin. She last underwent EGD in August 2016 for hematemesis have a hiatal hernia. There was no evidence of bleeding Bleeding. Her stomach was reportedly normal at that time. 2. History of pulmonary embolism 2012 with noted right bicep hematoma prompting discontinuation of anticoagulants and placement of an inferior vena cava filter 3. Chronic lumbar and thoracic back pain postlaminectomy syndrome 4. Postpolio syndrome 5. Post traumatic stress disorder Past Surgical History: 1. Cardiac catheterization 06/18/12 mild nonobstructive coronary atherosclerosis. 2. Abdominal surgery August 2016 with incision and debridement of infection and abdominal wall hematoma line 3. Colonoscopy findings of diverticulosis and ischemic colitis 3. EGD August 2016 as noted above 4. Spinal fusion, 5 past back surgeries Social History: She is single. She is a nonsmoker. No chronic alcohol use. Family History: Positive for CAD, heart attack and both parents Review Of Systems Patient complains of diffuse pain. She also has chest pain. Allergies Coded Allergies: Latex (Verified Allergy, Intermediate, RASH, 03/26/17) Nickel (Verified Allergy, Intermediate, SEVERE DERMATITIS, 03/26/17) Aspirin (Verified Adverse Reaction, Unknown, bleeding ulcers, 03/26/17) 03/26/17--dr flores inquired about aspirin allergy & reviewd history--pt has had bleeding in past while on anticoagulation, as of 6/8/17--no gi ulcers present & aspirin ok to give Medications Reported Home Medications Medications Dose Route/Sig Max Daily Dose Days Date Category Dose Instructions Levothyroxine Sodium 75 Mcg Tab 1 Tab PO DAILY 03/26/17 Reported Pantoprazole Sodium (Pantoprazole) 40 Mg Tab 40 Mg PO QAM 30 09/22/16 Rx Amlodipine Besylate 5 Mg Tab 5 Mg PO DAILY 09/22/16 Reported Oxycodone HCl 5 Mg Tab 5 Mg PO QID PRN 5 09/22/16 Rx Celexa (Citalopram Hydrobromide) 20 Mg Tab 1 Tab PO DAILY 30 07/09/16 Reported Trazodone HCl 100 Mg Tab 100 Mg PO HS 07/09/16 Reported Hctz (Hydrochlorothiazide) 25 Mg Tab 25 Mg PO DAILY 07/09/16 Reported Compazine (Prochlorperazine Maleate) 5 Mg Tab 10 Mg PO PRN 07/09/16 Reported Morphine Sulfate Er (Morphine Sulfate) 30 Mg Tab 30 Mg PO Q12 10 02/11/16 Rx Xanax (Alprazolam) 1 Mg Tab 1 Mg PO TID PRN 10 02/11/16 Rx Miralax (Polyethylene) 17 Gm Pow 17 Gm PO DAILY 30 02/11/16 Rx Klor-Con M20 (Potassium Chloride) 20 Meq Tabcr 20 Meq PO BID 7 02/11/16 Rx Please take twice daily for 1 week and then have your bloodwork checked. Metoprolol Tartrate 50 Mg Tab 50 Mg PO BID 30 02/11/16 Rx Minipress (Prazosin Hcl) 1 Mg Cap 1 Mg PO HS 02/05/16 Reported Pataday (Olopatadine Hydrochloride) 37 Drops/2.5 Ml Soln 1 Drops OPB DAILY 30 02/05/16 Reported Magnesium Oxide (Magnesium Oxide (Mg Supplement) 400 Mg Tab 400 Mg PO BID 02/05/16 Reported Caltrate 600 Plus (Calcium Carbonate-Vitamin D W/) 1 Tab Tab 1 Tab PO BID 06/26/15 Reported Promethazine HCl 25 Mg Tab 25 Mg PO BID PRN 06/26/15 Reported Epipen 2-Lee (Epinephrine) 0.3 Mg Inj 0.3 Mg IM UD PRN 06/26/15 Reported INJECT INTO OUTTER THIGH FOLLOWING DIRECTIONS ON PACKAGE AND TO GO EMERGENCY ROOM. Ultram (Tramadol HCl) 50 Mg Tab 50 Mg PO Q6H PRN 06/26/15 Reported Baclofen 10 Mg Tab 10 Mg PO TID PRN 06/26/15 Reported Multivitamin (Multivitamins) Tab 1 Tab PO DAILY 08/25/11 Reported Physical Exam Vital Signs (Last 8hrs): Last 8 Hrs Date Time Temp Pulse Resp B/P (MAP) Pulse Ox O2 Delivery O2 Flow Rate FiO2 03/26/17 15:00 37.0 61 18 125/69 94 Nasal Cannula 2.0 03/26/17 14:36 72 17 125/63 94 03/26/17 13:11 72 17 125/63 94 Nasal Cannula 2.0 03/26/17 12:16 64 03/26/17 12:04 94 Nasal Cannula 2.0 03/26/17 11:59 61 16 116/63 94 Nasal Cannula 2.0 03/26/17 11:29 93 Nasal Cannula 2.0 03/26/17 11:26 36.9 70 17 89 Room Air General Appearance: Alert and Oriented x3. Mild distress. Head: Normocephalic Atraumatic. Eyes: PERRLA, EOMI, conjunctiva and sclera clear Neck: Supple. No carotid bruits noted. No JVD. No HJD. Respiratory: Breath sounds clear to auscultation bilaterally. No w/r/r. Cardiovascular: Reg rate and rhythm. S1 and S2 noted. No murmurs, rubs, gallops. PMI non displace. Abdomen: Normal bowel sounds, soft nontender. no abdominal bruits. Extremities: No edema, no clubbing or cyanosis. distal pulses 2/4 bilaterally. Neuro: No focal deficits. Data Last Resulted 03/26/17 11:50 Red Blood Count 4.27, Mean Corpuscular Volume 88.1, Mean Corpuscular Hemoglobin 30.7, Mean Corpuscular Hemoglobin Concent 34.8, Mean Platelet Volume 9.5, Neutrophils (%) (Auto) 58.8, Lymphocytes (%) (Auto) 29.9, Monocytes (%) (Auto) 8.5, Eosinophils (%) (Auto) 2.1, Basophils (%) (Auto) 0.6, Neutrophils # (Auto) 3.92, Lymphocytes # (Auto) 2.00, Monocytes # (Auto) 0.57, Eosinophils # (Auto) 0.14, Basophils # (Auto) 0.04 Last Resulted 03/26/17 11:50 Past 24 Hours Test 03/26/17 11:50 Range/Units Creatine Kinase MB 3.6 0.5-3.6 ng/ml Creatine Kinase MB Ratio 1.6 0-3.0 Prothromb Time International Ratio 1.0 0.9-1.1 Prothrombin Time 10.7 9.0-12.0 SECONDS Total Creatine Kinase 223 H 26-192 U/L Troponin I 0.258 *H 0-0.045 ng/ml EKG tracings as outlined above. CTA was negative for pulmonary embolism. Assessment & Plan Impression: 67-year-old female 1. Chest discomfort, ongoing over several days with no acute EKG changes, mild elevation in CPK and troponin, 0.258 ng/ml. 2. Chronic pain syndrome with chart history of chronic back pain, fibromyalgia , breast reduction surgery being contemplated to help treat her chronic pain. Chronic narcotic analgesic dependence. 3. Family history of ischemic heart disease in both parents 4. Long-standing history of recurrent chest pain, cardiac catheterization 2011 with mild nonobstructive CAD. Discussion/recommendations: The patient had a similar mild elevation in her cardiac enzymes on 09/17/16 and 09/18/16 after abdominal surgery was treated conservatively with observation at that time. Although she describes chest discomfort at present, repeat EKG performed 03/26/17 and 1617 hrs. and reviewed independently by the undersigned is relatively unchanged me with age-indeterminate inferior infarction pattern Q waves in lead III and AVF. She has T-wave inversions in leads V1 to V3 which are unchanged compared to tracings dating back to 2016. She does have mild T-wave changes in the lateral precordial leads V4 to V6 which appear to be new. See no ST segment elevation present. After clarifying that she has not had a true allergy to aspirin, requested that the patient receive 324 mg of aspirin stat PCU. Heparin infusion is going to be initiated. Topical nitroglycerin ointment will be applied. She is to maintain her home dose of metoprolol. Atorvastatin has been ordered to start 40 mg by mouth daily first dose as soon as possible. Stat bedside resting echocardiogram was performed and reviewed by the undersigned revealing left ventricular wall motion. Recommend patient remains in telemetry for further observation and cardiac enzymes are going to be trended. No indication for emergent coronary angiography at the present time, further recommendations be forthcoming as her hospital stay develops. The EKG changes difficult to interpret, as there is a chronic nature to them. If she was free of discomfort I would question based on her past history is the anterior T-wave changes are due to her body habitus rather than ischemia. Given her clinical presentation however I think systemic anticoagulation close observation is warranted. Adrianne Flores, DO
[2017-03-26] MEDS ORDERED: ASPIRIN 81 MG CHEW PO SCH (17:00)
--- NOTE | 2017-03-26 17:02 | ECHOCARDIOGRAM REPORT ---
*NOTICE TO RECEIVING DEMOCRAT AGENCY This information is strictly Confidential and protected under [place] law. [place] law prohibits you from making any further disclosure of this information unless further disclosure is expressly permitted by the written consent of the person to whom it pertains or is authorized by law. A general authorization for the release of medical or other information is not sufficient for this purpose. Hospital accepts no responsibility if the information is made available to any other person, INCLUDING THE PATIENT. Interpretation Summary * Name: JOVANNI DE SANTIAGO Study Date: 03/26/2017 03:29 PM BP: 125/63 mmHg * Patient Location: C.2T\S\S240\S\2 HR: 72 * : 1950 (M/d/yyyy) Gender: Female Height: 64 in * Age: 67 yrs Ethnicity: CA Weight: 205 lb * Ordering Physician: Ruma Ramsey. * Referring Physician: Charanjit Spann) * Performed By: Destini Marroquin RDCS * * Reason For Study: Chest pain * BSA: 2.0 m2 * -- Conclusions -- * The left ventricular wall motion is normal. * Ejection Fraction = 55-60%. * Grade I diastolic dysfunction, (abnormal relaxation pattern). * The right ventricle is normal in size and function. * Doppler findings do not suggest pulmonary hypertension. Procedure Details * A complete two-dimensional transthoracic echocardiogram was performed (2D, M-mode, Doppler and color flow Doppler). * A contrast injection of Definity was performed to improve assessment of LV function. * Contrast was injected into an intravenous site in the central line. * One vial of Definity ultrasound contrast was diluted in normal saline to a total volume of 10 ml. A total of '2' ml of solution was administered during imaging. * Lot # [id number] of Definity utilized for procedure. * Expiration date MAY 05. * The attending nurse who injected the contrast agent was Sam Paul RN. Left Ventricle * The left ventricle is normal in size. * There is normal left ventricular wall thickness. * Left ventricular systolic function is normal. * Ejection Fraction = 55-60%. * The left ventricular wall motion is normal. Right Ventricle * The right ventricle is normal in size and function. * The right ventricular systolic function is normal as assessed by tricuspid annular plane systolic excursion (TAPSE) (normal >1.5 cm). Atria * The left atrial size is normal. * Right atrial size is normal. * There is no evidence of atrial septal defect, but resolution does not allow assessment for a patent foramen ovale. Mitral Valve * The mitral valve is normal. * There is no mitral valve stenosis. * Significant mitral regurgitation is absent. Tricuspid Valve * The tricuspid valve is normal. * There is no tricuspid stenosis. * Significant tricuspid regurgitation is absent. * Doppler findings do not suggest pulmonary hypertension. Aortic Valve * The aortic valve is trileaflet. * Aortic stenosis is absent. * There is no significant aortic regurgitation. Pulmonic Valve * The pulmonary valve is not well seen, but the Doppler examination is normal without significant regurgitation or stenosis. Great Vessels * The aortic root and proximal ascending aorta are normal sized. Pericardium/Pleural * There is no pericardial effusion. Great Vessels * Normal inferior vena cava diameter and respiratory variation suggests normal central venous pressure. Left Ventricular Diastolic Function * Grade I diastolic dysfunction, (abnormal relaxation pattern). MMode 2D Measurements and Calculations IVSd 1.1 cm LVIDd 4.0 cm LVIDs 2.7 cm LVPWd 1.1 cm IVS/LVPW 0.98 FS 31.6 % EDV(Teich) 69.2 ml ESV(Teich) 27.5 ml EF(Teich) 60.2 % EDV(cubed) 63.1 ml ESV(cubed) 20.1 ml EF(cubed) 68.1 % LV mass(C)d 142.0 grams LV mass(C)dI 71.8 grams/m\S\2 SV(Teich) 41.7 ml SI(Teich) 21.1 ml/m\S\2 SV(cubed) 42.9 ml SI(cubed) 21.7 ml/m\S\2 Ao root diam 3.3 cm Ao root area 8.5 cm\S\2 ACS 1.9 cm LA dimension 3.0 cm asc Aorta Diam 3.4 cm LA/Ao 0.91 LVOT diam 2.0 cm LVOT area 3.1 cm\S\2 LVAd ap4 30.0 cm\S\2 LVLd ap4 8.0 cm EDV(MOD-sp4) 93.7 ml EDV(sp4-el) 95.8 ml LVAs ap4 17.1 cm\S\2 LVLs ap4 6.3 cm ESV(MOD-sp4) 37.8 ml ESV(sp4-el) 39.6 ml EF(MOD-sp4) 59.7 % EF(sp4-el) 58.7 % LVAd ap2 30.0 cm\S\2 LVLd ap2 7.8 cm EDV(MOD-sp2) 98.4 ml EDV(sp2-el) 98.0 ml LVAs ap2 16.7 cm\S\2 LVLs ap2 5.8 cm ESV(MOD-sp2) 40.1 ml ESV(sp2-el) 40.7 ml EF(MOD-sp2) 59.2 % EF(sp2-el) 58.5 % LVLd %diff -2.93 % EDV(MOD-bp) 98.9 ml LVLs %diff -7.77 % ESV(MOD-bp) 41.3 ml EF(MOD-bp) 58.3 % SV(MOD-sp4) 56.0 ml SI(MOD-sp4) 28.3 ml/m\S\2 SV(MOD-sp2) 58.2 ml SI(MOD-sp2) 29.5 ml/m\S\2 SV(MOD-bp) 57.6 ml SI(MOD-bp) 29.1 ml/m\S\2 SV(sp4-el) 56.2 ml SI(sp4-el) 28.4 ml/m\S\2 SV(sp2-el) 57.4 ml SI(sp2-el) 29.0 ml/m\S\2 Doppler Measurements and Calculations MV E max bipin 79.5 cm/sec MV A max bipin 92.2 cm/sec MV E/A 0.86 MV dec time 0.28 sec Ao V2 max 121.6 cm/sec Ao max PG 5.9 mmHg Ao max PG (full) 2.7 mmHg SHYAM(V,A) 2.3 cm\S\2 SHYAM(V,D) 2.3 cm\S\2 LV V1 max PG 3.2 mmHg LV V1 max 89.7 cm/sec PA V2 max 78.7 cm/sec PA max PG 2.5 mmHg PA acc slope 476.9 cm/sec\S\2 PA acc time 0.09 sec PI max bipin 156.1 cm/sec PI max PG 9.7 mmHg PI dec slope 220.9 cm/sec\S\2 PI P1/2t 207.0 msec TR max bipin 309.5 cm/sec PA pr(Accel) 37.8 mmHg
[2017-03-26] MEDS: TRAMADOL HCL 50 MG TAB PO PRN (17:38)
[2017-03-26] MEDS: ALPRAZOLAM 0.5 MG TAB PO PRN (17:39)
[2017-03-26 20:04] VITALS: BP 107/58; PULSE 71; TEMP 37; O2SAT 93
[2017-03-26] MEDS: MoRPHine SULFATE CR 15 MG TAB (MS CONTIN) PO SCH (20:05)
[2017-03-26] MEDS: POTASSIUM CHLORIDE 20 MEQ TABCR PO SCH (20:07)
[2017-03-26] MEDS: MAGNESIUM OXIDE 400 MG TAB PO SCH (20:08)
[2017-03-26] MEDS: TRAZODONE HCL 100 MG TAB PO SCH (20:08)
[2017-03-26] MEDS: METOPROLOL TARTRATE 50 MG TAB PO SCH (20:08)
[2017-03-26] MEDS: CALCIUM 600MG + VIT D 400 IU TAB PO SCH (20:09)
[2017-03-26] MEDS: PRAZOSIN HCL 1 MG CAP PO SCH (20:09)
[2017-03-26 20:21] VITALS: O2SAT 95
[2017-03-26 21:56] VITALS: BP 107/67
[2017-03-26 23:55] VITALS: BP 96/61; PULSE 59; TEMP 36.9; O2SAT 94
[2017-03-27] VITALS (18 sets, daily range): BP systolic 97–192; BP diastolic 61–122; PULSE 55–83; TEMP 36.5–37.6; O2SAT 90–96
[2017-03-27 00:34] LABS: PARTIAL THROMBOPLASTIN RATIO 1.8
[2017-03-27] MEDS: HEPARIN 25,000 UNIT/500ML D5W 500 ML IV PRN ×2 (01:12→06:31)
[2017-03-27] MEDS ORDERED: HEPARIN IV BOLUS 3,000 UNIT in SYRINGE 0 ML IV ONE (01:15)
[2017-03-27] MEDS: NITROGLYCERIN OINT 2% 1GM PACKET EXT SCH (04:00)
[2017-03-27] MEDS: OXYCODONE HCL IR 5 MG TAB (IMMEDIATE RELEASE) PO PRN ×2 (04:13→13:06)
[2017-03-27] MEDS: LEVOTHYROXINE 75 MCG TAB PO SCH (05:42)
[2017-03-27] MEDS ORDERED: NURSING VERBAL MED ORDER ONE ×2 (06:30→21:45)
[2017-03-27] MEDS ORDERED: ASPIRIN 81 MG CHEW PO SCH (07:00)
[2017-03-27 07:07] LABS: HEMATOCRIT 38.1 % (37-47); MEAN CELL VOLUME 89.4 fL (80-100); MEAN CORPUSCULAR HEMOGLOBIN 29.1 pg (25-34); MEAN CORPUSCULAR HGB CONC 32.5 g/dl (32-36); MEAN PLATELET VOLUME 9.6 fL (7.4-10.4); PLATELET COUNT 219 K/uL (130-400); RED BLOOD COUNT 4.26 M/uL (4.2-5.4); WHITE BLOOD COUNT 6.54 K/uL (4.8-10.8)
[2017-03-27 07:24] LABS: PARTIAL THROMBOPLASTIN RATIO 2.6
[2017-03-27 07:39] LABS: BUN/CREATININE RATIO 12.2 (10-20); CALCIUM 8.4 mg/dl (8.5-10.1); CREATININE 0.76 mg/dl (0.60-1.20); POTASSIUM 3.7 mmol/L (3.5-5.1)
[2017-03-27] MEDS: MoRPHine SULFATE CR 15 MG TAB (MS CONTIN) PO SCH ×2 (07:41→22:04)
[2017-03-27] MEDS: METOPROLOL TARTRATE 50 MG TAB PO SCH ×2 (07:42→22:08)
[2017-03-27] MEDS: ALPRAZOLAM 0.5 MG TAB PO PRN ×2 (07:42→22:06)
[2017-03-27] MEDS: CALCIUM 600MG + VIT D 400 IU TAB PO SCH ×2 (07:42→21:00)
[2017-03-27] MEDS: MAGNESIUM OXIDE 400 MG TAB PO SCH ×2 (07:42→21:00)
[2017-03-27] MEDS: BACLOFEN 10 MG TAB PO PRN (07:43)
[2017-03-27] MEDS: CITALOPRAM 20 MG TAB PO SCH (07:43)
[2017-03-27] MEDS: ATORVASTATIN 40 MG TAB PO SCH (07:43)
[2017-03-27] MEDS: PANTOprazole SOD 40 MG TAB PO SCH (07:44)
[2017-03-27] MEDS: POTASSIUM CHLORIDE 20 MEQ TABCR PO SCH ×2 (07:44→22:10)
[2017-03-27] MEDS: HYDROCHLOROTHIAZIDE 25 MG TAB PO SCH (07:44)
[2017-03-27] MEDS: MULTIVITAMIN TAB PO SCH (07:44)
[2017-03-27] MEDS: POLYETHYLENE (MIRALAX) 17 GM PACK PO SCH (07:45)
[2017-03-27 07:51] LABS: CHOLESTEROL/HDL RATIO 4.1
--- NOTE | 2017-03-27 08:27 | Progress Note ---
Internal Med Progress Note Date of Service: Mar 27, 2017. Provider Documentation: SUBJECTIVE: Seen and examined at bedside. Complains of 5/10 retrosternal chest pain " Pushing like". Also reports associated SOB on exertion and intermittent dizziness. Denies fever , chills, cough. Troponin trended down. Planned for Cardiac cath today. OBJECTIVE: Vital Signs-as noted below Physical Exam: General Appearance:Moderately built and nourished, no apparent distress Head: normocephalic, Atraumatic Eyes: normal inspection, EOMI, PERRL Neck: supple, Trachea midline Respiratory/Chest: Normal breath sounds, CTA Cardiovascular: S1, S2, No murmur Abdomen/GI:Soft, Non tender, Bowel sounds present Extremities/Musculoskelatal:normal inspection, no edema Neurologic/Psych:AAOX3, grossly no focal neurological deficits Skin: normal color, warm Lab data as noted below. ASSESSMENT & PLAN: CHEST PAIN R/O ACS Presents with atypical chest pain, reproducible tenderness, not relieved by NTG. EKG: T wave inversions V1-V3, Q wave in Lead III, old compared to EKG 09/17/16. Troponin: 0.258, 0.32, 0.36, 0.28 On Aspirin, IV heparin infusion, Metoprolol, Lipitor Heparin currently held for cardiac cath Appreciate Cardiology input Lipid panel:wnl HbA1C: pending CT chest: No PE ECHO: left ventricular wall motion is normal, EF:55-60% ABNORMAL CT SCAN Shows ectasia - ascending thoracic aorta up to 3.9 cm Possible pulmonary congestion: clinically no signs of congestion, BNP 397 H/O CYCLICAL VOMITING SYNDROME Stable ANEMIA, CHRONIC Stable CHRONIC BACK PAIN (THORACIC AND LUMBAR) ON NARCOTICS Continue home dose of Morphine 30 mg Q12H Continue Baclofen TID Patient had plastic surgery at [facility] [place] recently and is planned for breast reduction surgery DEPRESSION/ANXIETY Continue citalopram HYPERTENSION Stable Continue home meds HYPOTHYROIDISM Continue synthroid DVT Px: On IV heparin Code Status: FULL CODE DISPOSITION Continue monitoring in Tele PROCEDURES: ECHO: * The left ventricular wall motion is normal. * Ejection Fraction = 55-60%. * Grade I diastolic dysfunction, (abnormal relaxation pattern). * The right ventricle is normal in size and function. * Doppler findings do not suggest pulmonary hypertension. Vital Signs: Date Time Temp Pulse Resp B/P (MAP) Pulse Ox O2 Delivery O2 Flow Rate FiO2 6/9/17 08:00 92 Room Air 2.0 03/27/17 07:45 36.6 56 19 97/61 (73) 92 Room Air 03/27/17 06:37 37.0 65 18 97/62 96 Nasal Cannula 2.0 03/27/17 04:15 Room Air 03/27/17 04:14 37.0 65 18 97/62 (74) 96 Nasal Cannula 2.0 03/27/17 00:00 Room Air 03/26/17 23:55 36.9 59 18 96/61 (73) 94 Room Air 03/26/17 21:56 107/67 (80) 03/26/17 20:21 95 Nasal Cannula 2.0 03/26/17 20:04 37.0 71 18 107/58 (74) 93 Nasal Cannula 2.0 03/26/17 20:00 Nasal Cannula 2.0 03/26/17 15:00 37.0 61 18 125/69 94 Nasal Cannula 2.0 03/26/17 14:36 72 17 125/63 94 03/26/17 13:11 72 17 125/63 94 Nasal Cannula 2.0 03/26/17 12:16 64 03/26/17 12:04 94 Nasal Cannula 2.0 03/26/17 11:59 61 16 116/63 94 Nasal Cannula 2.0 03/26/17 11:29 93 Nasal Cannula 2.0 03/26/17 11:26 36.9 70 17 89 Room Air Lab Results: Results Past 24 Hours Test 03/26/17 11:50 03/26/17 11:58 03/26/17 12:03 03/26/17 12:11 Range/Units White Blood Count 6.68 4.8-10.8 K/uL Red Blood Count 4.27 4.2-5.4 M/uL Hemoglobin 13.1 12.0-16.0 g/dL Hematocrit 37.6 37-47 % Mean Corpuscular Volume 88.1 80-100 fL Mean Corpuscular Hemoglobin 30.7 25-34 pg Mean Corpuscular Hemoglobin Concent 34.8 32-36 g/dl Platelet Count 227 130-400 K/uL Mean Platelet Volume 9.5 7.4-10.4 fL Neutrophils (%) (Auto) 58.8 % Lymphocytes (%) (Auto) 29.9 % Monocytes (%) (Auto) 8.5 % Eosinophils (%) (Auto) 2.1 % Basophils (%) (Auto) 0.6 % Neutrophils # (Auto) 3.92 1.4-6.5 K/uL Lymphocytes # (Auto) 2.00 1.2-3.4 K/uL Monocytes # (Auto) 0.57 0.11-0.59 K/uL Eosinophils # (Auto) 0.14 0-0.5 K/uL Basophils # (Auto) 0.04 0-0.2 K/uL RDW Standard Deviation 49.9 36.4-46.3 fL RDW Coefficient of Variation 15.5 11.5-14.5 % Immature Granulocyte % (Auto) 0.1 % Immature Granulocyte # (Auto) 0.01 0.00-0.02 K/uL Prothrombin Time 10.7 9.0-12.0 SECONDS Prothromb Time International Ratio 1.0 0.9-1.1 Activated Partial Thromboplast Time 28.9 21.0-31.0 SECONDS Partial Thromboplastin Ratio 1.1 Sodium Level 142 136-145 mmol/L Potassium Level 3.7 3.5-5.1 mmol/L Chloride Level 106 98-107 mmol/L Carbon Dioxide Level 27 21-32 mmol/L Anion Gap 9.0 17.0 16-25 mmol/L Blood Urea Nitrogen 11 7-18 mg/dl Creatinine 0.69 0.60-1.20 mg/dl Est Creatinine Clear Calc Drug Dose 85.1 ml/min Estimated GFR () 102.9 Estimated GFR (Non- 88.8 BUN/Creatinine Ratio 15.5 10-20 Random Glucose 107 70-99 mg/dl Calcium Level 8.8 8.5-10.1 mg/dl Total Bilirubin 0.4 0.2-1 mg/dl Direct Bilirubin 0.1 0-0.2 mg/dl Aspartate Amino Transf (AST/SGOT) 24 15-37 U/L Alanine Aminotransferase (ALT/SGPT) 27 12-78 U/L Alkaline Phosphatase 97 45-117 U/L Total Creatine Kinase 223 26-192 U/L Creatine Kinase MB 3.6 0.5-3.6 ng/ml Creatine Kinase MB Ratio 1.6 0-3.0 Troponin I 0.258 0-0.045 ng/ml Pro-B-Type Natriuretic Peptide 397 0-900 pg/ml Total Protein 6.9 6.4-8.2 gm/dl Albumin 3.6 3.4-5.0 gm/dl Hepatitis C Antibody NEG NEG Bedside D-Dimer > 450 0-450 ng/mlFEU Bedside Hemoglobin 13.3 12.0-16.0 g/dl Bedside Hematocrit 39 37-47 % Bedside Sodium 140 135-144 mEq/L Bedside Potassium 3.7 3.3-5.0 mEq/L Bedside Chloride 102 101-112 mEq/L Bedside Total CO2 26 24-31 mEq/l Bedside Blood Urea Nitrogen 10 7-18 mg/dl Bedside Creatinine 0.6 0.6-1.3 mg/dl Bedside Glucose (other) 112 70-99 mg/dl Bedside Ionized Calcium ([place]) 1.17 1.12-1.32 mmol/l Test 03/26/17 13:55 03/26/17 18:19 03/27/17 00:05 03/27/17 00:40 Range/Units Urine Color YELLOW Urine Appearance CLEAR CLEAR Urine pH 5.5 4.5-7.5 Urine Specific [place] 1.012 1.000-1.030 Urine Protein NEG NEG Urine Glucose (UA) NEG NEG Urine Ketones NEG NEG Urine Occult Blood NEG NEG Urine Nitrite NEG NEG Urine Bilirubin NEG NEG Urine Urobilinogen NEG NEG Urine Leukocyte Esterase NEG NEG Troponin I 0.324 0.364 0-0.045 ng/ml Activated Partial Thromboplast Time 46.2 21.0-31.0 SECONDS Partial Thromboplastin Ratio 1.8 Test 03/27/17 06:55 Range/Units White Blood Count 6.54 4.8-10.8 K/uL Red Blood Count 4.26 4.2-5.4 M/uL Hemoglobin 12.4 12.0-16.0 g/dL Hematocrit 38.1 37-47 % Mean Corpuscular Volume 89.4 80-100 fL Mean Corpuscular Hemoglobin 29.1 25-34 pg Mean Corpuscular Hemoglobin Concent 32.5 32-36 g/dl RDW Standard Deviation 51.7 36.4-46.3 fL RDW Coefficient of Variation 15.9 11.5-14.5 % Platelet Count 219 130-400 K/uL Mean Platelet Volume 9.6 7.4-10.4 fL Activated Partial Thromboplast Time 67.8 21.0-31.0 SECONDS Partial Thromboplastin Ratio 2.6 Sodium Level 145 136-145 mmol/L Potassium Level 3.7 3.5-5.1 mmol/L Chloride Level 108 98-107 mmol/L Carbon Dioxide Level 29 21-32 mmol/L Anion Gap 8.0 3-11 mmol/L Blood Urea Nitrogen 9 7-18 mg/dl Creatinine 0.76 0.60-1.20 mg/dl Est Creatinine Clear Calc Drug Dose 76.8 ml/min Estimated GFR () 92.8 Estimated GFR (Non- 80.0 BUN/Creatinine Ratio 12.2 10-20 Random Glucose 123 70-99 mg/dl Calcium Level 8.4 8.5-10.1 mg/dl Troponin I 0.289 0-0.045 ng/ml Triglycerides Level 124 0-150 mg/dl Cholesterol Level 158 0-200 mg/dl HDL Cholesterol 39 mg/dl LDL Cholesterol, Calculated 94 mg/dl VLDL Cholesterol, Calculated 25 mg/dl Cholesterol/HDL Ratio 4.1
[2017-03-27 08:48] LABS: ESTIMATED AVERAGE GLUCOSE 134 mg/dl; HA1C FLAG Normal (Normal)
[2017-03-27] MEDS ORDERED: PANTOprazole SOD 40 MG TAB PO SCH (09:00)
[2017-03-27] MEDS ORDERED: AMLODIPINE BESYLATE 5 MG TAB PO SCH (09:00)
--- NOTE | 2017-03-27 09:03 | CARDIOLOGY PROGRESS NOTE ---
DATE: 03/27/2017 DATE: 03/27/2017. SUBJECTIVE: The patient is seen and examined at the bedside. She continues to note waxing and waning substernal chest discomfort overnight. Peak troponin 0.364, repeat troponin this a.m. 0.289. Topical nitrates have been removed due to hypotension. The patient did receive her a.m. antihypertensive medications. Pain is currently rated as mild. No dysrhythmias on telemetry. Resting 2D transthoracic echo demonstrates normal wall motion without significant valvular disease. The patient notes chronic back pain which is unchanged as well. She received a.m. dose of metoprolol as well. There is a stated aspirin allergy, however, this was confirmed to not be present. She was told to not take NSAIDs due to history of peptic ulcer disease. Also carries a history of biceps hematoma related to prior warfarin therapy. Complex history noted per initial consultation. REVIEW OF SYSTEMS: Significant for chronic pain, low back pain, chest pain, 4-system review including cardiovascular, pulmonary, gastroenterologic, and neurologic systems otherwise negative. LABORATORY DATA: Sodium 145, potassium 3.7, chloride 108, CO2 is 29, BUN is 9, creatinine is 0.76, triglycerides 124, total cholesterol 158, LDL is 94, HDL is 39. White blood cell count 6.54, hemoglobin is 12.4, platelet count 219. PHYSICAL EXAMINATION: VITAL SIGNS: Temperature is 36.6 degrees centigrade, pulse 56 beats per minute and regular, respiratory rate is 19 breaths per minute, blood pressure is 97/61, SaO2 is 92% on 2 liters. GENERAL: NAD, awake, alert and oriented x3, obese. HEAD, EYES, EARS, NOSE, AND THROAT: Mucous membranes moist. No scleral icterus. Conjunctivae pink. NECK: Supple. There is no JVD or HJR. No carotid bruit. HEART: Regular with a normal S1 and S2. No murmur, rub, or gallop. ABDOMEN: Soft, nontender. No rebound or guarding. Normal bowel sounds. EXTREMITIES: Warm and dry. There is no clubbing, cyanosis, or edema. NEUROLOGIC EXAMINATION: Demonstrates no focal motor deficit. FINAL IMPRESSION: 1. A 67-year-old female with several days of chest discomfort, chronically abnormal ECG, and elevated troponin. No new regional wall motion abnormalities per resting 2D transthoracic echo. 2. Chronic pain syndrome. 3. Family history of premature atherosclerotic coronary disease as well as sudden cardiac . 4. Prior history of nonobstructive coronary artery disease. PLAN AND RECOMMENDATIONS: With recurrent waxing and waning chest discomfort in addition to elevated troponin, left heart catheterization with coronary angiography recommended. The risks, benefits, and alternatives to procedure were discussed in depth including but not limited to risk of myocardial infarction, , dysrhythmia, cerebrovascular accident, nephrotoxicity, adverse medication reaction, or decompensation of her generalized medical condition. The patient voices understanding and is agreeable to have procedure and potential percutaneous intervention if necessary. Would prefer bare metal stenting at this time due to patient's history of peptic ulcer disease as well as complications related to warfarin. Further recommendations pending result of cardiac catheterization.
[2017-03-27] MEDS ORDERED: FENTANYL CITRATE INJ 50 MCG/1 ML 2 ML VIAL ONE (09:09)
[2017-03-27] MEDS ORDERED: MIDAZOLAM HCL 1 MG/ML 2ML VIAL ONE (09:09)
[2017-03-27] MEDS ORDERED: HEPARIN SOD (PORCINE) 1000 UNIT/ML 10 ML VIAL ONE (09:09)
[2017-03-27] MEDS ORDERED: NITROGLYCERIN/D5W 100MCG/ML 20ML SYR ONE (09:09)
[2017-03-27] MEDS ORDERED: NiCARDipine HCL INJ 2.5 MG/ML 10 ML AMP ONE (09:09)
--- NOTE | 2017-03-27 10:01 | Procedure Note ---
Pre-Mod Sedation Assessment General Date of Moderate Sedation: Mar 27, 2017. Vital Signs: Vital Signs Past 12 Hours Date Time Temp Pulse Resp B/P (MAP) Pulse Ox O2 Delivery O2 Flow Rate FiO2 03/27/17 08:00 92 Room Air 2.0 03/27/17 07:45 36.6 56 19 97/61 (73) 92 Room Air 03/27/17 06:37 37.0 65 18 97/62 96 Nasal Cannula 2.0 03/27/17 04:15 Room Air 03/27/17 04:14 37.0 65 18 97/62 (74) 96 Nasal Cannula 2.0 03/27/17 00:00 Room Air 03/26/17 23:55 36.9 59 18 96/61 (73) 94 Room Air Review Cardiovascular: regular rate, rhythm, no edema, no murmur Abdomen: normal bowel sounds, non tender Lungs: chest non-tender, lungs clear, normal breath sounds Pre-Sedation Airway Assessment Oral Cavity: WNL Hx of Sleep Apnea: No Smoking Status: Never Smoker Mallampati Classification: Class III ASA Classification: Class III Procedure Planning Contraindications-for Mod Sed: None Yes Notes The planned sedation has been discussed with the patient and consent obtained. I have identified the patient, determined the appropriateness of sedation and have assessed the patient immediately prior to the procedure. All medicine(s) and interventions are by my order.
[2017-03-27] MEDS ORDERED: EPTIFIBATIDE 2 MG/ML 10 ML VIAL IV ONE (10:03)
[2017-03-27] MEDS ORDERED: EPTIFIBATIDE 0.75 MG/ML 75MG VIAL IV ONE (10:03)
--- NOTE | 2017-03-27 10:03 | Procedure Note ---
Post-Mod Sedation Assessment General Date of Moderate Sedation Mar 27, 2017. Vital Signs: Vital Signs Past 12 Hours Date Time Temp Pulse Resp B/P (MAP) Pulse Ox O2 Delivery O2 Flow Rate FiO2 03/27/17 08:00 92 Room Air 2.0 03/27/17 07:45 36.6 56 19 97/61 (73) 92 Room Air 03/27/17 06:37 37.0 65 18 97/62 96 Nasal Cannula 2.0 03/27/17 04:15 Room Air 03/27/17 04:14 37.0 65 18 97/62 (74) 96 Nasal Cannula 2.0 03/27/17 00:00 Room Air 03/26/17 23:55 36.9 59 18 96/61 (73) 94 Room Air Review - Discharge Criteria Vital Signs Stable: Yes Alert/Oriented/Conversant: Yes Returned to Baseline Mental St: Yes Nausea Absent/Minimal: Yes Pain/Discomfort/Absent/Minimal: Yes Normal/Baseline Respirations: Yes Active Bleeding?: No Pt Received D/C Instructions: N/A Prescriptions Given: None Specific Proced. D/C Criteria Distal Pulses Present (Cardiac: Yes Groin site assessed-Card Cath: N/A Voided Prior To Discharge: N/A Discharged Patients Adult Escort/Transportation: N/A
--- NOTE | 2017-03-27 10:21 | Cardiac Catheterization ---
Procedure Note Procedure Date Mar 27, 2017. Pre-Procedure Diagnosis Non STEMI AUC Score 8 Post-Procedure Diagnosis Severe CAD Procedure(s) Performed Coronary Angiography, Left Heart Cath [employer] Dr. Bailey Cartridge Assembler(s) Clarke [employer] Estimated Blood Loss 5cc Medication(s) Heparin, Nitroglycerin, Norepinephrine, Versed, Lidocaine 1% Summary of Findings 99% subtotal Diagonal branch vessel with FAN 1 flow Hemodynamics Rest Ao: 95/54/72 Final Ao: 132/70/97 LV: 124/5/19 Recommendations PCI without planned CABG Specimens None Radiation Exposure (mGy) 489 Contrast (mls) 95 Anesthesia Moderate Sedation, Start time 0919, End time 0950, Sedation RN: Leslie Cm Disposition Patient remained in color laboratory technician for PCI to Diagonal ACC Data Cardiac Status Clinical evaluation leading to the procedure CAD Presntation: Non STEMI Anginal Classification: CCS IV Heart Failure: No Cardiogenic Shock w/in 24Hrs: No Cardiac Arrest w/in 24Hrs: No Imaging studies past 6 months: No Stress studies past 6 months: No Coronary Anatomy Dominant: Left Left Main (% Stenosis): Normal LAD (% Stenosis): Ostial (20%), Mid (20%), Distal (10%) D1 (% Stenosis): Proximal (99% subtotal with FAN 1 flow) Circumflex (% Stenosis): Ostial (0%), Proximal (10%), Mid (10%), Distal (10%) OM1 (% Stenosis): Ostial (20% ), Proximal (30% followed by mild aneurysmal segment then gives rise to superior sub-branch), Mid (gives rise to two branch vessels, 20% ostium of superior sub-branch.), Distal (mild diffuse luminal irregularities 10-20% severity. ) L PL1 (% Stenosis): Normal L PL2 (% Stenosis): Normal L PDA (% Stenosis): Proximal (30%) RCA (% Stenosis): Normal Closure Device Percutaneous Entry Location: Radial Closure Device: Radial Band Recommendations: PCI without planned CABG PCI Indication: PCI for high risk Non-STEMI Intraprocedure Events Significant Dissection: No Perforation: No
[2017-03-27] MEDS ORDERED: CLOPIDOGREL BISULFATE 300 MG TAB PO ONE (10:44)
[2017-03-27] MEDS ORDERED: ATROPINE SULFATE 0.1 MG/ML 5ML SYR IV PRN (10:45)
[2017-03-27] MEDS ORDERED: LORAZEPAM INJ 0.5 MG in SYRINGE 0.75 ML IV PRN (10:45)
[2017-03-27] MEDS ORDERED: EPTIFIBATIDE BOLUS / DRIP IV ONE (10:45)
[2017-03-27] MEDS ORDERED: ONDANSETRON INJ 2 MG/ML 2 ML VIAL IV PRN (10:45)
--- NOTE | 2017-03-27 10:52 | Procedure Note ---
Post-Mod Sedation Assessment General Date of Moderate Sedation Mar 27, 2017. Vital Signs: Vital Signs Past 12 Hours Date Time Temp Pulse Resp B/P (MAP) Pulse Ox O2 Delivery O2 Flow Rate FiO2 03/27/17 10:45 70 16 130/73 (92) 95 Room Air 03/27/17 10:35 70 16 126/73 (90) 95 Room Air 03/27/17 08:00 92 Room Air 2.0 03/27/17 07:45 36.6 56 19 97/61 (73) 92 Room Air 03/27/17 06:37 37.0 65 18 97/62 96 Nasal Cannula 2.0 03/27/17 04:15 Room Air 03/27/17 04:14 37.0 65 18 97/62 (74) 96 Nasal Cannula 2.0 03/27/17 00:00 Room Air 03/26/17 23:55 36.9 59 18 96/61 (73) 94 Room Air Review - Discharge Criteria Vital Signs Stable: Yes Alert/Oriented/Conversant: Yes Returned to Baseline Mental St: Yes Nausea Absent/Minimal: Yes Pain/Discomfort/Absent/Minimal: Yes Normal/Baseline Respirations: Yes Active Bleeding?: No Pt Received D/C Instructions: N/A Prescriptions Given: None Specific Proced. D/C Criteria Distal Pulses Present (Cardiac: Yes Groin site assessed-Card Cath: N/A Voided Prior To Discharge: N/A Discharged Patients Adult Escort/Transportation: N/A
--- NOTE | 2017-03-27 11:03 | Cardiac Catheterization ---
Procedure Note Procedure Date Mar 27, 2017. Pre-Procedure Diagnosis Non STEMI, CAD AUC Score 9 for PCI Post-Procedure Diagnosis Severe CAD, Successful PCI Procedure(s) Performed Coronary Angiography, PTCA, Bare Metal Stent Anesthesiologist Assistant Dr. Manning Rn Infusion(s) JASON Dotson Estimated Blood Loss 20 ml Medication(s) Clopidogrel (600 mg PO post PCI), Heparin, Integrilin, Nicardipine (Intra- arterial and intracoronary) Summary of Findings Clinical indications: Subtotal proximal LAD diagonal stenosis noted on diagnostic angiography by Dr. Francis Bailey. The diagnostic procedure was performed for continued complaints of chest pain and non ST elevation myocardial infarction. Catheterization site: 6 Angolan glide sheath right radial artery inserted at time of diagnostic angiography. Equipment: 6 Angolan EBU 3.75 guide catheter, [employer] [place] guidewire, [employer] Sprinter 2 x 12 millimeter balloon dilatation catheter, [employer] Integrity 2.25 X 18 millimeter bare metal stent. Interventional protocol: Intravenous heparin and Integrilin were administered prior to intervention. Intracoronary nicardipine was administered prior to intervention. Three balloon inflations with the sprinter balloon to maximum pressure of 8 atmospheres and maximum duration 10 seconds. The stent was deployed at a pressure of 11 atmospheres for duration of 45 seconds. Angiography was then performed with the stent delivery balloon still in place. A 2nd inflation with the stent delivery balloon was then performed to an inflation pressure of 11 atmospheres for duration of 13 seconds. follow-up angiography was then performed from orthogonal projections with the guidewire in place a guidewire withdrawn. The patient was hemodynamically stable throughout the procedure. At the start of the diagnostic procedure the patient had been complaining of chest discomfort. When she was awakened after completion of the PCI procedure she still reported residual chest discomfort. Her monitored leads revealed no ST segment changes of myocardial ischemia or injury. Hemostasis: Terumo TR band. Complications:None Findings: Guiding angiography revealed a subtotal 99 percent proximal LAD diagonal stenosis. FAN 1 flow. Following PTCA FAN 2 flow was present in the diagonal. Following deployment of the stent and post stent deployment balloon inflation the residual stenosis at the stent site was 0-10 percent. No evidence of dissection, thrombus, perforation, or distal embolic event. FAN 3 flow into the diagonal. Plan: The patient was given a 600 milligram loading dose of oral clopidogrel post PCI. She will remain on intravenous Integrilin for at least 6 hours post PCI. Post Integrilin CBC will be assessed. She will be continued on aspirin in addition to the clopidogrel. She should be on dual antiplatelet therapy for at least 3 months. Will be continued on atorvastatin and metoprolol. An Guille inhibitor will be added to her medical regimen. She will have continued cardiology follow-up with the [facility] cardiology service. Hemodynamics Rest Ao: 95/54/72 mm Hg ( at time of diagnostic procedure ) Final Ao: 130/66/95 mm Hg LV: NA Recommendations Medical therapy and/or Counseling, PCI without planned CABG Specimens None Radiation Exposure (mGy) Total of 997 for diagnostic and PCI procedures Contrast (mls) Total of 195 ml Visipaque for both procedures Fluids (cc crystalloids) total of 366 ml Drains none Anesthesia No medications for anesthesia given during PCI procedure Procedural Complication(s) None Disposition PCU ACC Data Cardiac Status Clinical evaluation leading to the procedure CAD Presntation: Non STEMI Anginal Classification: CCS IV Heart Failure: No Cardiogenic Shock w/in 24Hrs: No Cardiac Arrest w/in 24Hrs: No Imaging studies past 6 months: Yes Stress studies past 6 months: No Standard Exercise Stress Test: No Stress Echocardiogram: No Stress Testing w/SPECT MPI: No Cardiac CTA: No Coronary Anatomy Dominant: Left (Please see Dr. Bailey's diagnostic report) Left Ventricular Angiography EF (%): NA Diagnostic Physician's Name: Francis Bailey DO Status: Elective Closure Device Percutaneous Entry Location: Radial Closure Device: Radial Band Recommendations: Medical therapy and/or Counseling, PCI without planned CABG PCI Indication: PCI for high risk Non-STEMI Lesion Segment Name: Proximal LAD diagonal Culprit Artery: Yes Stenosis Prior to Rx (%): 99 Chronic Total Occlusion: No IVUS: No FFR: No Pre-Procedure FAN Flow: 1 Previously Treated Lesion: No Lesion Complexity: Non-High/Non-C Lesion Length (mm): 14 Thrombus Present: Yes Bifurcation Lesion: No Guidewire Across Lesion: Yes Guidewire: Stenosis Post-Procedure (%): 0 Post-Procedure FAN Flow: 3 Device(s) Deployed: Yes Type of Device(s): [employer] Integrity 2.25 by 18 millimeter bare metal stent Intraprocedure Events Significant Dissection: No Perforation: No
[2017-03-27 11:20] LABS: BASO % 0.4 %; BASO ABS # 0.03 K/uL (0-0.2); EOS % 4.7 %; HEMATOCRIT 39.6 % (37-47); IG% 0.1 %; LYMPH % 40.2 %; LYMPH ABS # 2.71 K/uL (1.2-3.4); MEAN CELL VOLUME 88.4 fL (80-100); MEAN CORPUSCULAR HEMOGLOBIN 28.8 pg (25-34); MEAN PLATELET VOLUME 9.3 fL (7.4-10.4); MONO % 9.3 %; NEUT % 45.3 %; PLATELET COUNT 230 K/uL (130-400); RED BLOOD COUNT 4.48 M/uL (4.2-5.4); WHITE BLOOD COUNT 6.74 K/uL (4.8-10.8)
[2017-03-27 11:23] LABS: COMPLETE YES; MEAN CORPUSCULAR HGB CONC 32.6 g/dl (32-36)
[2017-03-27] MEDS ORDERED: EPTIFIBATIDE INJ 75 MG PREMIXED IV SCH (11:30)
[2017-03-27] MEDS: TRAMADOL HCL 50 MG TAB PO PRN (13:47)
[2017-03-27] MEDS: ONDANSETRON INJ 2 MG/ML 2 ML VIAL IV PRN ×2 (13:47→20:43)
[2017-03-27] MEDS ORDERED: HydrALAZINE HCL 20 MG/ML VIAL IV. PRN (14:00)
[2017-03-27] MEDS ORDERED: HydrALAZINE HCL 20 MG/ML VIAL ONE (14:03)
[2017-03-27] MEDS ORDERED: Integrelin infusion --> STOP ORDER ONE (18:00)
[2017-03-27] MEDS: PRAZOSIN HCL 1 MG CAP PO SCH (21:00)
[2017-03-27] MEDS ORDERED: PROMETHAZINE HCL INJ 12.5 MG in SODIUM CHLORIDE 0.9% 50ML 50 ML IV ONE (21:45)
--- NOTE | 2017-03-27 22:02 | DIAGNOSTIC IMAGING REPORT ---
ULTRASOUND VENOUS DOPPLER LWR EXT BILA CLINICAL HISTORY: Elevated d-dimer, R/O DVT CHEST PAIN COMPARISON STUDY: 10/16/2016, 09/18/2016 FINDINGS: Real-time and color flow Doppler imaging were performed. Flow was seen within the femoral, popliteal and calf veins with no intraluminal thrombus demonstrated. The saphenous vein is patent. IMPRESSION: No evidence of lower extremity DVT. Electronically signed by: Jhonny Marsh M.D. 03/27/2017 10:00 PM Dictated Date/Time: 03/27/2017 9:59 PM
[2017-03-27] MEDS: TRAZODONE HCL 100 MG TAB PO SCH (22:08)
[2017-03-28] VITALS (12 sets, daily range): BP systolic 156–177; BP diastolic 76–97; PULSE 63–90; TEMP 37–37.7; O2SAT 86–96
[2017-03-28] MEDS: LEVOTHYROXINE 75 MCG TAB PO SCH (05:46)
[2017-03-28] MEDS: PROMETHAZINE HCL INJ 12.5 MG in SODIUM CHLORIDE 0.9% 50ML 50 ML IV PRN ×3 (05:55→18:03)
[2017-03-28 06:50] LABS: HEMATOCRIT 41.3 % (37-47); MEAN CELL VOLUME 86.2 fL (80-100); MEAN CORPUSCULAR HEMOGLOBIN 28.6 pg (25-34); MEAN CORPUSCULAR HGB CONC 33.2 g/dl (32-36); MEAN PLATELET VOLUME 9.5 fL (7.4-10.4); PLATELET COUNT 286 K/uL (130-400); RED BLOOD COUNT 4.79 M/uL (4.2-5.4); WHITE BLOOD COUNT 11.87 K/uL (4.8-10.8)
[2017-03-28 07:00] LABS: PARTIAL THROMBOPLASTIN RATIO 1.2
[2017-03-28 07:24] LABS: BUN/CREATININE RATIO 10.7 (10-20); CALCIUM 8.5 mg/dl (8.5-10.1); CREATININE 0.65 mg/dl (0.60-1.20); MAGNESIUM 1.8 mg/dl (1.8-2.4); POTASSIUM 2.7 mmol/L (3.5-5.1)
[2017-03-28] MEDS: ONDANSETRON INJ 2 MG/ML 2 ML VIAL IV PRN ×3 (08:05→21:38)
[2017-03-28] MEDS ORDERED: MoRPHine SULFATE 2 MG/ML CARP IV ONE ×3 (08:30→19:30)
[2017-03-28] MEDS ORDERED: ACETAMINOPHEN IV 650 MG in EMPTY BAG 0 ML IV PRN (08:30)
[2017-03-28] MEDS: PANTOprazole SOD 40 MG TAB PO SCH (09:00)
[2017-03-28] MEDS: CITALOPRAM 20 MG TAB PO SCH (09:00)
[2017-03-28] MEDS: POTASSIUM CHLORIDE 20 MEQ TABCR PO SCH ×3 (09:00→21:48)
[2017-03-28] MEDS: ATORVASTATIN 40 MG TAB PO SCH (09:00)
[2017-03-28] MEDS ORDERED: POTASSIUM CHLR 20 MEQ / WTR 20 MEQ in PREMIXED WATER 100 ML IV ONE (09:00)
[2017-03-28] MEDS: MAGNESIUM OXIDE 400 MG TAB PO SCH ×3 (09:00→21:48)
[2017-03-28] MEDS ORDERED: ASPIRIN 81 MG ECTAB PO SCH (09:00)
[2017-03-28] MEDS: MoRPHine SULFATE CR 15 MG TAB (MS CONTIN) PO SCH ×2 (09:00→21:36)
[2017-03-28] MEDS: MULTIVITAMIN TAB PO SCH (09:00)
[2017-03-28] MEDS: CALCIUM 600MG + VIT D 400 IU TAB PO SCH ×3 (09:00→21:48)
[2017-03-28] MEDS: POLYETHYLENE (MIRALAX) 17 GM PACK PO SCH (09:00)
--- NOTE | 2017-03-28 09:24 | Progress Note ---
Internal Med Progress Note Date of Service: Mar 28, 2017. Provider Documentation: SUBJECTIVE: Seen and examined at bedside. Complains of nausea, mild abdominal pain. States chest pain is resolving. Has low grade fever today. OBJECTIVE: Vital Signs-as noted below Physical Exam: General Appearance:Moderately built and nourished, no apparent distress Head: normocephalic, Atraumatic Eyes: normal inspection, EOMI, PERRL Neck: supple, Trachea midline Respiratory/Chest: Normal breath sounds, CTA Cardiovascular: S1, S2, No murmur Abdomen/GI:Soft, Non tender, Bowel sounds present Extremities/Musculoskelatal:normal inspection, no edema Neurologic/Psych:AAOX3, grossly no focal neurological deficits Skin: normal color, warm Lab data as noted below. ASSESSMENT & PLAN: NSTEMI: Proximal LAD diagonal stenosis S/P PCI POD #1 Presents with atypical chest pain, reproducible tenderness, not relieved by NTG. EKG: T wave inversions V1-V3, Q wave in Lead III Troponin: 0.258, 0.32, 0.36, 0.28 Continue Aspirin, Plavix, Statins, BB, lisinopril Appreciate Cardiology input Lipid panel:wnl HbA1C: 6.3 Elevated D-dimer: CT chest: No PE, Venous Doppler: No DVT ECHO: left ventricular wall motion is normal, EF:55-60%, Grade I diastolic dysfunction Leukocytosis: Low grade fever today, Complains of mild abd pain Check UA, CXR, Blood cultures, KUB, Procalcitonin Hypokalemia: Secondary to Vomiting Replace and Monitor ABNORMAL CT SCAN Shows ectasia - ascending thoracic aorta up to 3.9 cm Possible pulmonary congestion: clinically no signs of congestion, BNP 397 H/O CYCLICAL VOMITING SYNDROME Continue Antiemetics PRN ANEMIA, CHRONIC Stable CHRONIC BACK PAIN (THORACIC AND LUMBAR) ON NARCOTICS Continue home dose of Morphine 30 mg Q12H Continue Baclofen TID Patient had plastic surgery at [facility] recently and is planned for breast reduction surgery DEPRESSION/ANXIETY Continue citalopram HYPERTENSION Stable Continue home meds HYPOTHYROIDISM Continue Synthroid DVT Px: Lovenox SQ Code Status: FULL CODE DISPOSITION Continue monitoring in Tele PROCEDURES: ECHO: * The left ventricular wall motion is normal. * Ejection Fraction = 55-60%. * Grade I diastolic dysfunction, (abnormal relaxation pattern). * The right ventricle is normal in size and function. * Doppler findings do not suggest pulmonary hypertension. Vital Signs: Date Time Temp Pulse Resp B/P (MAP) Pulse Ox O2 Delivery O2 Flow Rate FiO2 03/30/17 15:01 36.6 78 17 92 Room Air 03/30/17 11:48 36.6 78 17 112/72 (85) 92 Room Air 03/30/17 09:45 94 Room Air 03/30/17 07:24 36.7 62 18 103/68 (80) 94 Room Air 03/30/17 01:19 61 85/55 (65) 03/30/17 00:00 Room Air 03/29/17 22:52 36.9 72 18 91/66 (74) 91 Room Air 03/29/17 17:54 87 162/76 (104) 03/29/17 16:17 18 178/84 (115) 93 Room Air 03/29/17 16:00 Room Air 03/29/17 15:56 37.1 71 16 98 Nasal Cannula Lab Results: Results Past 24 Hours Test 03/29/17 17:42 03/30/17 05:32 Range/Units Influenza Type A (RT-PCR) Neg for Influ A NEG Influenza Type B (RT-PCR) Neg for Influ B NEG White Blood Count 11.60 4.8-10.8 K/uL Red Blood Count 4.64 4.2-5.4 M/uL Hemoglobin 13.5 12.0-16.0 g/dL Hematocrit 40.3 37-47 % Mean Corpuscular Volume 86.9 80-100 fL Mean Corpuscular Hemoglobin 29.1 25-34 pg Mean Corpuscular Hemoglobin Concent 33.5 32-36 g/dl RDW Standard Deviation 49.7 36.4-46.3 fL RDW Coefficient of Variation 15.6 11.5-14.5 % Platelet Count 286 130-400 K/uL Mean Platelet Volume 9.3 7.4-10.4 fL Activated Partial Thromboplast Time 72.0 21.0-31.0 SECONDS Partial Thromboplastin Ratio 2.8 Sodium Level 140 136-145 mmol/L Potassium Level 3.2 3.5-5.1 mmol/L Chloride Level 103 98-107 mmol/L Carbon Dioxide Level 27 21-32 mmol/L Anion Gap 10.0 3-11 mmol/L Blood Urea Nitrogen 23 7-18 mg/dl Creatinine 1.00 0.60-1.20 mg/dl Est Creatinine Clear Calc Drug Dose 58.1 ml/min Estimated GFR () 66.6 Estimated GFR (Non- 57.4 BUN/Creatinine Ratio 23.1 10-20 Random Glucose 81 70-99 mg/dl Calcium Level 8.4 8.5-10.1 mg/dl Magnesium Level 2.1 1.8-2.4 mg/dl
[2017-03-28] MEDS: ASPIRIN 81 MG ECTAB PO SCH (09:51)
[2017-03-28] MEDS: METOPROLOL TARTRATE 50 MG TAB PO SCH ×2 (09:51→21:32)
[2017-03-28] MEDS: LISINOPRIL 5 MG TAB PO SCH (09:51)
[2017-03-28] MEDS: CLOPIDOGREL BISULFATE 75 MG TAB PO SCH (09:52)
--- NOTE | 2017-03-28 11:08 | Cardiology Follow-Up ---
Subjective General Date of Service: Mar 28, 2017. Pt evaluation today including: conversation w/ patient, physical exam, chart review, lab review, review of studies, review of inpatient medication list History of Present Illness The patient is a 67 year old female seen in follow-up. No recurrent chest discomfort overnight. Complains of nausea and vomiting this morning. Chronic back pain unchanged. No dysrhythmias on telemetry. Allergies Coded Allergies: Latex (Verified Allergy, Intermediate, RASH, 03/26/17) Nickel (Verified Allergy, Intermediate, SEVERE DERMATITIS, 03/26/17) Aspirin (Verified Adverse Reaction, Unknown, bleeding ulcers, 03/26/17) 03/26/17--dr flores inquired about aspirin allergy & reviewd history--pt has had bleeding in past while on anticoagulation, as of 03/26/17--no gi ulcers present & aspirin ok to give Social History Smoking Status: Never Smoker Hx Tobacco Use In Past Year?: No Hx Alcohol Use - Type And Amou: No Hx Substance Use - Type And Am: Yes (Benzo / oramorph) Problem List Medical Problems: (1) Abnormal EKG Status: Acute (2) Avulsion of skin of finger Status: Acute (3) Back strain Status: Acute (4) Chest pain Status: Acute (5) Chest pain Status: Acute (6) Diffuse abdominal pain Status: Acute (7) Elevated troponin Status: Acute (8) Hypoxia Status: Acute (9) Neck pain on right side Status: Acute Review of Systems Respiratory: No cough, No sputum, No wheezing, No shortness of breath, No dyspnea on exertion, No dyspnea at rest, No hemoptysis Cardiac: No chest pain, No orthopnea, No PND, No edema, No claudication, No palpitations Physical Exam Vital Signs Last Vital Signs Documentation Date Time Temp Pulse Resp B/P (MAP) Pulse Ox O2 Delivery O2 Flow Rate FiO2 03/28/17 10:00 96 Nasal Cannula 3.0 03/28/17 09:49 70 172/81 (111) 03/28/17 08:14 37.5 03/28/17 07:55 16 Physical Exam Constitutional: General Apperance: overweight Level of Distress: NAD Head: normocephalic, atraumatic ENMT: normal ENT inspection Lungs: Auscultation: no wheezing, no rales/crackles, no rhonchi Cardiovascular: Heart Auscultation: RRR, normal S1, normal S2, no murmurs Peripheral Pulses: Radial Pulse: normal on the left, normal on the right Abdomen: Bowel Sounds: normal Inspection & Palpation: soft, non-distended, no tenderness, guarding & rebound Extremities: no cyanosis, no edema, no clubbing, no ulcers Neurologic: Gait & Station: pertinent finding Cranial Nerves: grossly intact Assessment and Plan Assessment and Plan FINAL IMPRESSION: 1. NSTEMI s/p BMS to Diagonal branch vessel 2. Chronic pain syndrome. 3. Family history of premature atherosclerotic coronary disease as well as sudden cardiac . 4. HTN - BP elevated this AM in setting of nausea and vomitting PLAN AND RECOMMENDATIONS: Continue Plavix for a minimum of 3 months post metal stent implantation. Aspirin to be continued lifelong. Restart amlodipine 5 mg daily. Continue metoprolol and lisinopril in addition to atorvastatin as previously ordered. We 'll arrange for outpatient cardiology follow-up in 2 weeks. Will sign off at this time. Please call with questions. Laboratory Results Last 24 Hours Test 03/27/17 11:12 03/28/17 06:13 03/28/17 09:36 RDW Standard Deviation 50.4 fL 49.4 fL RDW Coefficient of Variation 15.7 % 15.6 % Immature Granulocyte % (Auto) 0.1 % Immature Granulocyte # (Auto) 0.01 K/uL Nucleated RBC Absolute Count (auto) 0.00 K/uL Nucleated Red Blood Cells % 0.0 % White Blood Count 11.87 K/uL Red Blood Count 4.79 M/uL Hemoglobin 13.7 g/dL Hematocrit 41.3 % Mean Corpuscular Volume 86.2 fL Mean Corpuscular Hemoglobin 28.6 pg Mean Corpuscular Hemoglobin Concent 33.2 g/dl Platelet Count 286 K/uL Mean Platelet Volume 9.5 fL Activated Partial Thromboplast Time 31.0 SECONDS Partial Thromboplastin Ratio 1.2 Sodium Level 138 mmol/L Potassium Level 2.7 mmol/L Chloride Level 99 mmol/L Carbon Dioxide Level 30 mmol/L Anion Gap 9.0 mmol/L Blood Urea Nitrogen 7 mg/dl Creatinine 0.65 mg/dl Est Creatinine Clear Calc Drug Dose 89.3 ml/min Estimated GFR () 105.0 Estimated GFR (Non- 90.6 BUN/Creatinine Ratio 10.7 Random Glucose 138 mg/dl Calcium Level 8.5 mg/dl Magnesium Level 1.8 mg/dl
[2017-03-28] MEDS ORDERED: AMLODIPINE BESYLATE 5 MG TAB PO ONE (12:00)
[2017-03-28 12:21] LABS: URINE APPEARANCE CLEAR (CLEAR); URINE BILIRUBIN NEG (NEG); URINE COLOR YELLOW; URINE NITRITE NEG (NEG); URINE PH 7.5 (4.5-7.5); URINE SPECIFIC GRAVITY 1.017 (1.000-1.030); UROBILINOGEN NEG (NEG); ZZUR CULT IF INDIC CLEAN CATCH NO
[2017-03-28 12:22] LABS: MANUAL MICROSCOPIC REQUIRED? NO; REVIEW REQ? NO; SULFASALICYLIC ACID NEG (NEG)
--- NOTE | 2017-03-28 12:28 | DIAGNOSTIC IMAGING REPORT ---
CHEST ONE VIEW PORTABLE CLINICAL HISTORY: Fever and chest pain. COMPARISON STUDY: Chest radiograph and chest CT March 26, 2017. FINDINGS: The patient is rotated. There is a left subclavian [id number]. Left basilar opacity is noted. There is minimal right lower lung opacity which favors atelectasis. There is no evidence of pulmonary edema. There are median sternotomy wires. Cardiomegaly is unchanged. IMPRESSION: Mild bibasilar opacities. Atelectasis is favored although an infectious process within the left lower lung could appear similar. Electronically signed by: Gonsalo Villafana M.D. 03/28/2017 12:26 PM Dictated Date/Time: 03/28/2017 12:24 PM
[2017-03-28] MEDS: ENOXAPARIN 40 MG/0.4 ML SYR SQ SCH (12:54)
--- NOTE | 2017-03-28 13:52 | DIAGNOSTIC IMAGING REPORT ---
KUB CLINICAL HISTORY: Nausea, vomiting, abdominal pain. COMPARISON STUDY: CT of the abdomen and pelvis October 16, 2016. FINDINGS: Levoscoliosis of the lumbar spine is noted. Gas within the sacroiliac joints with adjacent sclerosis is unchanged since prior CT of October 16, 2016. Calcifications projecting of the right lower quadrant were shown to be within the subcutaneous tissues of the right flank by CT. The bowel gas pattern is normal. Pelvic calcifications reflect phleboliths. A moderate amount of stool is noted within the ascending colon. IMPRESSION: No evidence for a bowel obstruction. Electronically signed by: Gonsalo Villafana M.D. 03/28/2017 1:51 PM Dictated Date/Time: 03/28/2017 1:49 PM
[2017-03-28 16:57] LABS: BUN/CREATININE RATIO 14.6 (10-20); CALCIUM 8.4 mg/dl (8.5-10.1); CREATININE 0.61 mg/dl (0.60-1.20); POTASSIUM 2.8 mmol/L (3.5-5.1)
[2017-03-28] MEDS: ALPRAZOLAM 0.5 MG TAB PO PRN (18:28)
[2017-03-28] MEDS: POTASSIUM CHLR 20 MEQ / WTR 20 MEQ in PREMIXED WATER 100 ML IV SCH ×2 (18:28→20:32)
[2017-03-28] MEDS: OXYCODONE HCL IR 5 MG TAB (IMMEDIATE RELEASE) PO PRN (18:29)
[2017-03-28] MEDS ORDERED: NURSING VERBAL MED ORDER ONE (19:15)
[2017-03-28] MEDS: TRAZODONE HCL 100 MG TAB PO SCH (21:32)
[2017-03-28] MEDS: PRAZOSIN HCL 1 MG CAP PO SCH (21:33)
[2017-03-29] VITALS (10 sets, daily range): BP systolic 91–191; BP diastolic 56–90; PULSE 60–87; TEMP 36.8–37.4; O2SAT 90–98
[2017-03-29] MEDS: LEVOTHYROXINE 75 MCG TAB PO SCH (05:41)
[2017-03-29 06:45] LABS: BASO % 0.3 %; BASO ABS # 0.03 K/uL (0-0.2); COMPLETE YES; EOS % 0.6 %; HEMATOCRIT 40.2 % (37-47); IG% 0.1 %; LYMPH % 36.9 %; LYMPH ABS # 4.36 K/uL (1.2-3.4); MEAN CELL VOLUME 87.6 fL (80-100); MEAN CORPUSCULAR HEMOGLOBIN 29.2 pg (25-34); MEAN CORPUSCULAR HGB CONC 33.3 g/dl (32-36); MEAN PLATELET VOLUME 9.3 fL (7.4-10.4); MONO % 12.4 %; NEUT % 49.7 %; PLATELET COUNT 277 K/uL (130-400); RED BLOOD COUNT 4.59 M/uL (4.2-5.4); WHITE BLOOD COUNT 11.83 K/uL (4.8-10.8)
[2017-03-29 06:51] LABS: PARTIAL THROMBOPLASTIN RATIO 1.1
[2017-03-29 07:22] LABS: BUN/CREATININE RATIO 14.7 (10-20); CALCIUM 8.6 mg/dl (8.5-10.1); CREATININE 1.1 mg/dl (0.60-1.20); MAGNESIUM 2.1 mg/dl (1.8-2.4)
[2017-03-29] MEDS ORDERED: POTASSIUM CHLORIDE 10 MEQ TABCR PO ONE (07:30)
[2017-03-29] MEDS: MULTIVITAMIN TAB PO SCH (08:13)
[2017-03-29] MEDS: POTASSIUM CHLR 20 MEQ / WTR 20 MEQ in PREMIXED WATER 100 ML IV SCH ×2 (08:13→10:05)
[2017-03-29] MEDS: ASPIRIN 81 MG ECTAB PO SCH (08:14)
[2017-03-29] MEDS: BACLOFEN 10 MG TAB PO PRN (08:14)
[2017-03-29] MEDS: CLOPIDOGREL BISULFATE 75 MG TAB PO SCH (08:14)
[2017-03-29] MEDS: ONDANSETRON INJ 2 MG/ML 2 ML VIAL IV PRN ×3 (08:14→21:48)
[2017-03-29] MEDS: CALCIUM 600MG + VIT D 400 IU TAB PO SCH ×2 (08:15→21:17)
[2017-03-29] MEDS: LISINOPRIL 5 MG TAB PO SCH (08:15)
[2017-03-29] MEDS: ATORVASTATIN 40 MG TAB PO SCH (08:15)
[2017-03-29] MEDS: POTASSIUM CHLORIDE 20 MEQ TABCR PO SCH ×3 (08:15→20:09)
[2017-03-29] MEDS: METOPROLOL TARTRATE 50 MG TAB PO SCH ×2 (08:16→20:09)
[2017-03-29] MEDS: PANTOprazole SOD 40 MG TAB PO SCH (08:16)
[2017-03-29] MEDS: CITALOPRAM 20 MG TAB PO SCH (08:16)
[2017-03-29] MEDS: POLYETHYLENE (MIRALAX) 17 GM PACK PO SCH (08:17)
[2017-03-29] MEDS: MAGNESIUM OXIDE 400 MG TAB PO SCH ×2 (08:17→21:17)
--- NOTE | 2017-03-29 08:51 | Progress Note ---
Internal Med Progress Note Date of Service: Mar 29, 2017. Provider Documentation: SUBJECTIVE: Seen and examined at bedside. States feeling better today. Denies nausea, vomiting, abdominal pain, chest pain, cough, SOB. Afebrile today. OBJECTIVE: Vital Signs-as noted below Physical Exam: General Appearance:Moderately built and nourished, no apparent distress Head: normocephalic, Atraumatic Eyes: normal inspection, EOMI, PERRL Neck: supple, Trachea midline Respiratory/Chest: Normal breath sounds, LLL minimal creps Cardiovascular: S1, S2, No murmur Abdomen/GI:Soft, Non tender, Bowel sounds present Extremities/Musculoskelatal:normal inspection, no edema Neurologic/Psych:AAOX3, grossly no focal neurological deficits Skin: normal color, warm Lab data as noted below. ASSESSMENT & PLAN: NSTEMI: Proximal LAD diagonal stenosis S/P PCI POD #2 Presents with atypical chest pain, reproducible tenderness, not relieved by NTG. EKG: T wave inversions V1-V3, Q wave in Lead III Troponin: 0.258, 0.32, 0.36, 0.28 Continue Aspirin, Plavix, Statins, BB, lisinopril Appreciate Cardiology input Lipid panel:wnl HbA1C: 6.3 Elevated D-dimer: CT chest: No PE, Venous Doppler: No DVT ECHO: left ventricular wall motion is normal, EF:55-60%, Grade I diastolic dysfunction Leukocytosis: No left shift Procalcitonin negative Stable Fever resolved UA: No signs of UTI Denies cough, SOB CXR:LLL likely atelectasis Blood cultures:Pending KUB:No obstruction Chronic Hypokalemia: Secondary to Vomiting Replace and Monitor Mg levels:wnl ABNORMAL CT SCAN Shows ectasia - ascending thoracic aorta up to 3.9 cm Possible pulmonary congestion: clinically no signs of congestion, BNP 397 H/O CYCLICAL VOMITING SYNDROME Continue Antiemetics PRN ANEMIA, CHRONIC Stable CHRONIC BACK PAIN (THORACIC AND LUMBAR) ON NARCOTICS Continue home dose of Morphine 30 mg Q12H Continue Baclofen TID Patient had plastic surgery at [facility] recently and is planned for breast reduction surgery DEPRESSION/ANXIETY Continue citalopram HYPERTENSION Stable Continue home meds HYPOTHYROIDISM Continue Synthroid DVT Px: Lovenox SQ Code Status: FULL CODE DISPOSITION Transfer to medical floor Plan to discharge tomorrow if stable PROCEDURES: ECHO: * The left ventricular wall motion is normal. * Ejection Fraction = 55-60%. * Grade I diastolic dysfunction, (abnormal relaxation pattern). * The right ventricle is normal in size and function. * Doppler findings do not suggest pulmonary hypertension. Vital Signs: Date Time Temp Pulse Resp B/P (MAP) Pulse Ox O2 Delivery O2 Flow Rate FiO2 03/30/17 15:01 36.6 78 17 92 Room Air 03/30/17 11:48 36.6 78 17 112/72 (85) 92 Room Air 03/30/17 09:45 94 Room Air 03/30/17 07:24 36.7 62 18 103/68 (80) 94 Room Air 03/30/17 01:19 61 85/55 (65) 03/30/17 00:00 Room Air 03/29/17 22:52 36.9 72 18 91/66 (74) 91 Room Air 03/29/17 17:54 87 162/76 (104) 03/29/17 16:17 18 178/84 (115) 93 Room Air 03/29/17 16:00 Room Air 03/29/17 15:56 37.1 71 16 98 Nasal Cannula Lab Results: Results Past 24 Hours Test 03/29/17 17:42 03/30/17 05:32 Range/Units Influenza Type A (RT-PCR) Neg for Influ A NEG Influenza Type B (RT-PCR) Neg for Influ B NEG White Blood Count 11.60 4.8-10.8 K/uL Red Blood Count 4.64 4.2-5.4 M/uL Hemoglobin 13.5 12.0-16.0 g/dL Hematocrit 40.3 37-47 % Mean Corpuscular Volume 86.9 80-100 fL Mean Corpuscular Hemoglobin 29.1 25-34 pg Mean Corpuscular Hemoglobin Concent 33.5 32-36 g/dl RDW Standard Deviation 49.7 36.4-46.3 fL RDW Coefficient of Variation 15.6 11.5-14.5 % Platelet Count 286 130-400 K/uL Mean Platelet Volume 9.3 7.4-10.4 fL Activated Partial Thromboplast Time 72.0 21.0-31.0 SECONDS Partial Thromboplastin Ratio 2.8 Sodium Level 140 136-145 mmol/L Potassium Level 3.2 3.5-5.1 mmol/L Chloride Level 103 98-107 mmol/L Carbon Dioxide Level 27 21-32 mmol/L Anion Gap 10.0 3-11 mmol/L Blood Urea Nitrogen 23 7-18 mg/dl Creatinine 1.00 0.60-1.20 mg/dl Est Creatinine Clear Calc Drug Dose 58.1 ml/min Estimated GFR () 66.6 Estimated GFR (Non- 57.4 BUN/Creatinine Ratio 23.1 10-20 Random Glucose 81 70-99 mg/dl Calcium Level 8.4 8.5-10.1 mg/dl Magnesium Level 2.1 1.8-2.4 mg/dl
[2017-03-29] MEDS: MoRPHine SULFATE CR 15 MG TAB (MS CONTIN) PO SCH ×2 (09:00→20:06)
[2017-03-29] MEDS ORDERED: AMLODIPINE BESYLATE 5 MG TAB PO SCH (09:00)
[2017-03-29] MEDS: ENOXAPARIN 40 MG/0.4 ML SYR SQ SCH (12:51)
[2017-03-29] MEDS: PROMETHAZINE HCL INJ 12.5 MG in SODIUM CHLORIDE 0.9% 50ML 50 ML IV PRN (13:30)
[2017-03-29] MEDS: OXYCODONE HCL IR 5 MG TAB (IMMEDIATE RELEASE) PO PRN (14:12)
[2017-03-29] MEDS: ALPRAZOLAM 0.5 MG TAB PO PRN (14:12)
[2017-03-29] MEDS ORDERED: HydrALAZINE HCL 20 MG/ML VIAL IV. PRN (15:30)
[2017-03-29] MEDS: TRAMADOL HCL 50 MG TAB PO PRN (15:32)
[2017-03-29] MEDS ORDERED: METOPROLOL TARTRATE 1 MG/ML VIAL IV. PRN (16:45)
[2017-03-29] MEDS ORDERED: CLONIDINE HCL 0.1 MG TAB PO PRN (17:30)
[2017-03-29] MEDS: TRAZODONE HCL 100 MG TAB PO SCH (20:07)
[2017-03-29] MEDS: PRAZOSIN HCL 1 MG CAP PO SCH (20:10)
[2017-03-29 20:19] LABS: INFLUENZA A PCR Neg for Influ A (NEG); INFLUENZA B PCR Neg for Influ B (NEG)
[2017-03-29] MEDS ORDERED: SODIUM CHLORIDE 0.9% 500ML 500 ML IV SCH (23:45)
[2017-03-30] MEDS ORDERED: SODIUM CHLORIDE 0.9% 500ML 500 ML IV SCH (00:45)
[2017-03-30 01:19] VITALS: BP 85/55; PULSE 61
[2017-03-30 06:11] LABS: HEMATOCRIT 40.3 % (37-47); MEAN CELL VOLUME 86.9 fL (80-100); MEAN CORPUSCULAR HEMOGLOBIN 29.1 pg (25-34); MEAN CORPUSCULAR HGB CONC 33.5 g/dl (32-36); MEAN PLATELET VOLUME 9.3 fL (7.4-10.4); PLATELET COUNT 286 K/uL (130-400); RED BLOOD COUNT 4.64 M/uL (4.2-5.4)
[2017-03-30 06:34] LABS: PARTIAL THROMBOPLASTIN RATIO 2.8
[2017-03-30] MEDS: LEVOTHYROXINE 75 MCG TAB PO SCH (06:43)
[2017-03-30 06:44] LABS: BUN/CREATININE RATIO 23.1 (10-20); CALCIUM 8.4 mg/dl (8.5-10.1); MAGNESIUM 2.1 mg/dl (1.8-2.4); POTASSIUM 3.2 mmol/L (3.5-5.1)
--- NOTE | 2017-03-30 07:03 | Clinical Documentation Query ---
Dr. [facility] : CLINICAL DOCUMENTATION QUERY Clinical documentation includes a diagnosis of: Acute hypoxic respiratory failure. Due to stringent requirements by our coding department, multiple clinical indicators associated with this diagnosis must be present in order for this to be coded/captured within the medical record. If appropriate, please document 2 or more of the following clinical indicators in daily progress notes and the discharge summary. If you feel the diagnosis of acute respiratory failure was made in error, or do not agree with it, simply discontinue documentation thereof. Acute Respiratory Failure indicators include: * Respirations >28 * Air hunger * Use of accessory muscles of respiration * Inability to speak in full sentences * Cyanosis * Pulse ox <90% RA or <95% on O2 *pH <7.35 or >7.45 * pO2 < 60 mm Hg (or 10mm below COPD patient's baseline) * pCO2 >50mm Hg (or 10mm above COPD patient's baseline) * mechanical ventilation * Increased work of breathing * Tachypnea IF IN AGREEMENT, YOU MUST DOCUMENT ABOVE DIAGNOSTIC STATEMENT IN DAILY PROGRESS NOTES AND DISCHARGE SUMMARY. This document is not part of the patient's record. Thank You, Jason Garcia, RN [phone]
[2017-03-30 07:24] VITALS: BP 103/68; PULSE 62; TEMP 36.7; O2SAT 94
[2017-03-30] MEDS ORDERED: AMLODIPINE BESYLATE 5 MG TAB PO SCH ×2 (08:00)
[2017-03-30] MEDS: METOPROLOL TARTRATE 50 MG TAB PO SCH (09:40)
[2017-03-30] MEDS: ATORVASTATIN 40 MG TAB PO SCH (09:41)
[2017-03-30] MEDS: POTASSIUM CHLORIDE 20 MEQ TABCR PO SCH (09:41)
[2017-03-30] MEDS: CLOPIDOGREL BISULFATE 75 MG TAB PO SCH (09:41)
[2017-03-30] MEDS: PANTOprazole SOD 40 MG TAB PO SCH (09:42)
[2017-03-30] MEDS: CALCIUM 600MG + VIT D 400 IU TAB PO SCH (09:43)
[2017-03-30] MEDS: MULTIVITAMIN TAB PO SCH (09:43)
[2017-03-30] MEDS: BACLOFEN 10 MG TAB PO PRN (09:43)
[2017-03-30 09:45] VITALS: O2SAT 94
[2017-03-30] MEDS: POLYETHYLENE (MIRALAX) 17 GM PACK PO SCH (09:45)
[2017-03-30] MEDS: MAGNESIUM OXIDE 400 MG TAB PO SCH (09:46)
[2017-03-30] MEDS: ASPIRIN 81 MG ECTAB PO SCH (09:46)
[2017-03-30] MEDS: CITALOPRAM 20 MG TAB PO SCH (09:46)
[2017-03-30] MEDS: MoRPHine SULFATE CR 15 MG TAB (MS CONTIN) PO SCH (09:52)
[2017-03-30 11:48] VITALS: BP 112/72; PULSE 78; TEMP 36.6; O2SAT 92
[2017-03-30] MEDS: HYDROCHLOROTHIAZIDE 25 MG TAB PO SCH (12:20)
[2017-03-30] MEDS: ENOXAPARIN 40 MG/0.4 ML SYR SQ SCH (13:23)
[2017-03-30] MEDS: LISINOPRIL 5 MG TAB PO SCH (13:23)
--- NOTE | 2017-03-30 13:48 | Progress Note ---
Internal Med Progress Note Date of Service: Mar 30, 2017. Provider Documentation: SUBJECTIVE: Seen and examined at bedside. States doing well. Nausea resolved. Denies chest pain, SOB, Cough. Afebrile. No new complaints. OBJECTIVE: Vital Signs-as noted below Physical Exam: General Appearance:Moderately built and nourished, no apparent distress Head: normocephalic, Atraumatic Eyes: normal inspection, EOMI, PERRL Neck: supple, Trachea midline Respiratory/Chest: Normal breath sounds, LLL minimal creps Cardiovascular: S1, S2, No murmur Abdomen/GI:Soft, Non tender, Bowel sounds present Extremities/Musculoskelatal:normal inspection, no edema Neurologic/Psych:AAOX3, grossly no focal neurological deficits Skin: normal color, warm Lab data as noted below. ASSESSMENT & PLAN: NSTEMI: Proximal LAD diagonal stenosis S/P PCI POD #2 Presents with atypical chest pain, reproducible tenderness, not relieved by NTG. EKG: T wave inversions V1-V3, Q wave in Lead III Troponin: 0.258, 0.32, 0.36, 0.28 Continue Aspirin, Plavix, Statins, BB, lisinopril Appreciate Cardiology input Lipid panel:wnl HbA1C: 6.3 Elevated D-dimer: CT chest: No PE, Venous Doppler: No DVT ECHO: left ventricular wall motion is normal, EF:55-60%, Grade I diastolic dysfunction Leukocytosis: No left shift Procalcitonin negative Stable Fever resolved UA: No signs of UTI Denies cough, SOB CXR:LLL likely atelectasis Blood cultures:No growth KUB:No obstruction Chronic Hypokalemia: Secondary to Vomiting Replace and Monitor Mg levels:wnl ABNORMAL CT SCAN Shows ectasia - ascending thoracic aorta up to 3.9 cm Possible pulmonary congestion: clinically no signs of congestion, BNP 397 H/O CYCLICAL VOMITING SYNDROME Continue Antiemetics PRN ANEMIA, CHRONIC Stable CHRONIC BACK PAIN (THORACIC AND LUMBAR) ON NARCOTICS Continue home dose of Morphine 30 mg Q12H Continue Baclofen TID Patient had plastic surgery at [facility] recently and is planned for breast reduction surgery DEPRESSION/ANXIETY Continue citalopram HYPERTENSION Stable Continue home meds HYPOTHYROIDISM Continue Synthroid DVT Px: Lovenox SQ Code Status: FULL CODE DISPOSITION Plan to discharge home today Follow up with on 04/02/17 at 9:45am Follow up with your inner diameter grinder tool on 04/06/17 at 1:40pm PROCEDURES: ECHO: * The left ventricular wall motion is normal. * Ejection Fraction = 55-60%. * Grade I diastolic dysfunction, (abnormal relaxation pattern). * The right ventricle is normal in size and function. * Doppler findings do not suggest pulmonary hypertension. Vital Signs: Date Time Temp Pulse Resp B/P (MAP) Pulse Ox O2 Delivery O2 Flow Rate FiO2 03/30/17 11:48 36.6 78 17 112/72 (85) 92 Room Air 03/30/17 09:45 94 Room Air 03/30/17 07:24 36.7 62 18 103/68 (80) 94 Room Air 03/30/17 01:19 61 85/55 (65) 03/30/17 00:00 Room Air 03/29/17 22:52 36.9 72 18 91/66 (74) 91 Room Air 03/29/17 17:54 87 162/76 (104) 03/29/17 16:17 18 178/84 (115) 93 Room Air 03/29/17 16:00 Room Air 03/29/17 15:56 37.1 71 16 98 Nasal Cannula 03/29/17 15:14 191/90 (123) Lab Results: Results Past 24 Hours Test 03/29/17 17:42 03/30/17 05:32 Range/Units Influenza Type A (RT-PCR) Neg for Influ A NEG Influenza Type B (RT-PCR) Neg for Influ B NEG White Blood Count 11.60 4.8-10.8 K/uL Red Blood Count 4.64 4.2-5.4 M/uL Hemoglobin 13.5 12.0-16.0 g/dL Hematocrit 40.3 37-47 % Mean Corpuscular Volume 86.9 80-100 fL Mean Corpuscular Hemoglobin 29.1 25-34 pg Mean Corpuscular Hemoglobin Concent 33.5 32-36 g/dl RDW Standard Deviation 49.7 36.4-46.3 fL RDW Coefficient of Variation 15.6 11.5-14.5 % Platelet Count 286 130-400 K/uL Mean Platelet Volume 9.3 7.4-10.4 fL Activated Partial Thromboplast Time 72.0 21.0-31.0 SECONDS Partial Thromboplastin Ratio 2.8 Sodium Level 140 136-145 mmol/L Potassium Level 3.2 3.5-5.1 mmol/L Chloride Level 103 98-107 mmol/L Carbon Dioxide Level 27 21-32 mmol/L Anion Gap 10.0 3-11 mmol/L Blood Urea Nitrogen 23 7-18 mg/dl Creatinine 1.00 0.60-1.20 mg/dl Est Creatinine Clear Calc Drug Dose 58.1 ml/min Estimated GFR () 66.6 Estimated GFR (Non- 57.4 BUN/Creatinine Ratio 23.1 10-20 Random Glucose 81 70-99 mg/dl Calcium Level 8.4 8.5-10.1 mg/dl Magnesium Level 2.1 1.8-2.4 mg/dl
[2017-03-30] MEDS ORDERED: PLV75 PO (14:01)
[2017-03-30] MEDS ORDERED: ASPEC81 PO (14:01)
[2017-03-30] MEDS ORDERED: LPT40 PO (14:01)
[2017-03-30] MEDS ORDERED: LSN5 PO (14:01)
--- NOTE | 2017-03-30 14:07 | Discharge Summary ---
Discharge Summary Date of Service Mar 30, 2017. Discharge Summary Admission Date: Mar 27, 2017 at 12:10 Discharge Date: Mar 30, 2017 Discharge Disposition: Home Principal Diagnosis: NSTEMI S/P PCI Procedures: ECHO: * The left ventricular wall motion is normal. * Ejection Fraction = 55-60%. * Grade I diastolic dysfunction, (abnormal relaxation pattern). * The right ventricle is normal in size and function. * Doppler findings do not suggest pulmonary hypertension. Cardiac Catheterization: Findings: Guiding angiography revealed a subtotal 99 percent proximal LAD diagonal stenosis. FAN 1 flow. Following PTCA FAN 2 flow was present in the diagonal. Following deployment of the stent and post stent deployment balloon inflation the residual stenosis at the stent site was 0-10 percent. No evidence of dissection, thrombus, perforation, or distal embolic event. FAN 3 flow into the diagonal. Plan: The patient was given a 600 milligram loading dose of oral clopidogrel post PCI. She will remain on intravenous Integrilin for at least 6 hours post PCI. Post Integrilin CBC will be assessed. She will be continued on aspirin in addition to the clopidogrel. She should be on dual antiplatelet therapy for at least 3 months. Will be continued on atorvastatin and metoprolol. An Guille inhibitor will be added to her medical regimen. She will have continued cardiology follow-up with the [facility] cardiology service. CTA: 1. There is no evidence of pulmonary embolus in the main, lobar, or segmental pulmonary arteries. 2. Cardiomegaly and emphysema with evidence of pulmonary artery hypertension. 3. There are trace pleural effusions. Diffuse intralobular septal thickening suggests a component of congestive failure. Clinical correlation will be required. 4. There is volume loss in the left lung with compensatory hyperinflation of the right lung. Correlate clinically for a history of previous surgery. 5. Trace pleural effusions are identified. 6. Hepatic steatosis. 7. There is mild ectasia of the ascending thoracic aorta which measures up to 3.9 cm. This is similar in appearance to prior studies. 8. Additional findings as above. Venous Doppler: No evidence of lower extremity DVT. KUB: No evidence for a bowel obstruction. Consultations: Cardiology Pending Studies/Follow-Up: Follow up with on 04/02/17 at 9:45am Follow up with your patient registration rep on 04/06/17 at 1:40pm Check your blood pressure regularly as advised. Follow up with if your blood pressure is high to get medications adjusted Medication Reconciliation New Medications: Aspirin (Aspirin EC Low Dose) 81 Mg Ectab 81 MG PO QAM for 30 Days, #30 Atorvastatin (Atorvastatin Calcium) 40 Mg Tab 40 MG PO QAM for 30 Days, #30 TAB 2 Refills Clopidogrel Bisulfate (Clopidogrel) 75 Mg Tab 75 MG PO QAM for 30 Days, #30 TAB 2 Refills Lisinopril (Lisinopril) 5 Mg Tab 5 MG PO QAM for 30 Days, #30 TAB 2 Refills Continued Medications: Alprazolam (Xanax) 1 Mg Tab 1 MG PO TID PRN for Anxiety for 10 Days, #30 TABS Amlodipine Besylate (Amlodipine Besylate) 5 Mg Tab 5 MG PO DAILY, TAB Baclofen (Baclofen) 10 Mg Tab 10 MG PO TID PRN for Muscle Spasm Calcium Carbonate-Vitamin D W/ (Caltrate 600 Plus) 1 Tab Tab 1 TAB PO BID, TAB Citalopram Hydrobromide (Celexa) 20 Mg Tab 1 TAB PO DAILY for 30 Days, #90 TAB 3 Refills Epinephrine (Epipen 2-Lee) 0.3 Mg Inj 0.3 MG IM UD PRN for ALLERGIC REACTION INJECT INTO OUTTER THIGH FOLLOWING DIRECTIONS ON PACKAGE AND TO GO EMERGENCY ROOM. Levothyroxine Sodium (Levothyroxine Sodium) 75 Mcg Tab 1 TAB PO DAILY Magnesium Oxide (Mg Supplement (Magnesium Oxide) 400 Mg Tab 400 MG PO BID Metoprolol Tartrate (Metoprolol Tartrate) 50 Mg Tab 50 MG PO BID for 30 Days, #60 TAB Morphine Sulfate (Morphine Sulfate Er) 30 Mg Tab 30 MG PO Q12 for 10 Days, #20 TAB Multivitamin (Multivitamin) Tab 1 TAB PO DAILY, 0 Refills Olopatadine Hydrochloride (Pataday) 37 Drops/2.5 Ml Soln 1 DROPS OPB DAILY for 30 Days, #2.5 ML 3 Refills Oxycodone HCl (Oxycodone HCl) 5 Mg Tab 5 MG PO QID PRN for Breakthrough Pain for 5 Days, #15 TAB 0 Refills Pantoprazole (Pantoprazole Sodium) 40 Mg Tab 40 MG PO QAM for 30 Days, #30 TAB Polyethylene (Miralax) 17 Gm Pow 17 GM PO DAILY for 30 Days Potassium Chloride (Klor-Con M20) 20 Meq Tabcr 20 MEQ PO BID for 7 Days, #14 TABS Please take twice daily for 1 week and then have your bloodwork checked. Prazosin Hcl (Minipress) 1 Mg Cap 1 MG PO HS Prochlorperazine Maleate (Compazine) 5 Mg Tab 10 MG PO PRN for Nausea, TAB Promethazine HCl (Promethazine HCl) 25 Mg Tab 25 MG PO BID PRN for Nausea Tramadol (Ultram) 50 Mg Tab 50 MG PO Q6H PRN for Pain, TAB Trazodone HCl (Trazodone HCl) 100 Mg Tab 100 MG PO HS Discontinued Medications: Hydrochlorothiazide (Hctz) 25 Mg Tab 25 MG PO DAILY, TAB Admission Information HPI (per Admitting provider): The patient is a 67 year old female with PMH as below who presents to the Emergency Room with complaints of chest pain. Patient is supposed to have Breast reduction surgery next week, for which she did see physician in [facility]. Per her, some EKG changes were noted and she was referred to her PCP to evaluate this further. Patient did not have any chest pain during the evaluation at [facility]. But for past 11 days, she has chest pain, left sided - pressure like , non radiating , with no aggravating/relieving factors, associated with some SOB, nausea, but no palpitations, diaphoresis. Denies any cough, worsening of leg swelling, fever, chills. For this, she went to see her PCP today who did EKG which revealed ST segment depressions, which were reviewed by cardiology as well and was referred to ER for further evaluation. Of note, she was supposed to have Stress echo tomorrow. In ED, she c/o chest pain , left sided. Asking for IV pain medications, prefers IV narcotics. EKG- compared to one on 09/17/16 shows no acute changes, has T wave inversions in leads V-V3, q wave in III, which are old, Troponin slightly elevated 0.258 CXR- bibasilar opacities, CT scan done sec to elevated d dimer- no PE, possible pulmonary edema. Will admit her for chest pain with elevated troponin- for further evaluation and mx. Physical Exam (per Admitting): General Appearance: no apparent distress Head: normocephalic, atraumatic Eyes: PERRL ENT: hearing grossly normal Neck: supple, no JVD Respiratory/Chest: lungs clear, + pertinent finding (reproducible tenderness ) Cardiovascular: regular rate, rhythm, no edema Abdomen/GI: normal bowel sounds, non tender, soft Extremities/Musculoskelatal: normal inspection, no calf tenderness Neurologic/Psych: alert, oriented x 3, + pertinent finding (no deficits) Skin: normal color Hospital Course NSTEMI: Proximal LAD diagonal stenosis S/P PCI POD #2 Presents with atypical chest pain, reproducible tenderness, not relieved by NTG. EKG: T wave inversions V1-V3, Q wave in Lead III Troponin: 0.258, 0.32, 0.36, 0.28 Continue Aspirin, Plavix, Statins, BB, lisinopril Appreciate Cardiology input Lipid panel:wnl HbA1C: 6.3 Elevated D-dimer: CT chest: No PE, Venous Doppler: No DVT ECHO: left ventricular wall motion is normal, EF:55-60%, Grade I diastolic dysfunction Leukocytosis: No left shift Procalcitonin negative Stable Fever resolved UA: No signs of UTI Denies cough, SOB CXR:LLL likely atelectasis Blood cultures:No growth KUB:No obstruction Chronic Hypokalemia: Secondary to Vomiting Replace and Monitor Mg levels:wnl ABNORMAL CT SCAN Shows ectasia - ascending thoracic aorta up to 3.9 cm Possible pulmonary congestion: clinically no signs of congestion, BNP 397 H/O CYCLICAL VOMITING SYNDROME Continue Antiemetics PRN ANEMIA, CHRONIC Stable CHRONIC BACK PAIN (THORACIC AND LUMBAR) ON NARCOTICS Continue home dose of Morphine 30 mg Q12H Continue Baclofen TID Patient had plastic surgery at [facility] recently and is planned for breast reduction surgery DEPRESSION/ANXIETY Continue citalopram HYPERTENSION Stable Continue home meds HYPOTHYROIDISM Continue Synthroid DVT Px: Lovenox SQ Code Status: FULL CODE DISPOSITION Plan to discharge home today Follow up with on 04/02/17 at 9:45am Follow up with your patient registration rep on 04/06/17 at 1:40pm PROCEDURES: ECHO: * The left ventricular wall motion is normal. * Ejection Fraction = 55-60%. * Grade I diastolic dysfunction, (abnormal relaxation pattern). * The right ventricle is normal in size and function. * Doppler findings do not suggest pulmonary hypertension. Total time spent on discharge = 37 minutes This includes examination of the patient, discharge planning, medication reconciliation, and communication with other providers. Discharge Instructions Discharge Instructions Date of Service Mar 30, 2017. Admission Reason for Admission: Chest Pain Discharge Discharge Diagnosis / Problem: NSTEMI S/P PCI Discharge Goals Goal(s): Decrease discomfort, Improve function Activity Recommendations Activity Limitations: resume your previous activity Lifting Limitations: gradually increase as tolerated Exercise/Sports Limitations: gradually increase as tolerated . Instructions / Follow-Up Instructions / Follow-Up Follow up with on 04/02/17 at 9:45am Follow up with your patient registration rep on 04/06/17 at 1:40pm Check your blood pressure regularly as advised. Follow up with if your blood pressure is high to get medications adjusted Home Care: * Take your medications exactly as directed. Don't skip doses. * Remember that recovery after a heart attack takes time. Plan to rest for at lease 4-8 weeks while you recover. Then return to normal activity when your doctor says it's okay. * Ask your doctor about joining a heart rehabilitation program. * Tell your doctor if you are feeling depressed. Feelings of sadness are common after a heart attack, but it is important that you speak to someone if you are feeling overwhelmed by these feelings. * If you are having chest pain, call 911 for an ambulance. Do NOT drive yourself to the hospital. * Ask your family members to learn CPR. * Learn to take your own blood pressure and pulse. Keep a record of your results. Ask your doctor when you should seek emergency medical attention. He or she will tell you which blood pressure reading is dangerous. Lifestyle Changes: * Maintain a healthy weight. Get help to lose any extra pounds. * Cut back on salt. * Limit canned, dried, packaged, and fast foods. * Don't add salt to your food. * Season foods with herbs instead of salt when you cook. * Break the smoking habit. Enroll in a stop-smoking program to improve your chances of success. * Limit fatty foods. * Check your lipid levels regularly. (Your doctor can show you how to do this.) * Build up your activity according to your doctor's recommendation. * Ask your doctor when it's okay to resume sexual activity. * Tell your doctor about any erectile dysfunction (ED) medication you are taking. Some ED medications are not safe if you take certain heart medications. * Try to manage stress. Follow Up: It is important for you to keep your follow up appointments with your medical provider. Current Hospital Diet Patient's current hospital diet: AHA Diet (Heart Healthy), Low Sodium Diet (2gm Na) Discharge Diet Recommended Diet: AHA Diet (Heart Healthy), Low Sodium Diet (2gm Na) Procedures Procedures Performed: PCI Pending Studies Studies pending at discharge: no Laboratory Results Hemoglobin A1c Test 03/27/17 06:55 Range/Units Estimated Average Glucose 134 mg/dl Hemoglobin A1c 6.3 H 4.5-5.6 % Lipid Panel Test 03/27/17 06:55 Range/Units Triglycerides Level 124 0-150 mg/dl Cholesterol Level 158 0-200 mg/dl HDL Cholesterol 39 mg/dl Cholesterol/HDL Ratio 4.1 LDL Cholesterol, Calculated 94 mg/dl Medical Emergencies . Who to Call and When: Medical Emergencies: If at any time you feel your situation is an emergency, please call 911 immediately. Call 911 immediately or go to your nearest Emergency Room if you experience any of the following: Warning Signs and Symptoms of a Heart Attack * Chest pain that is not relieved by medication * Shortness of breath . Non-Emergent Contact Non-Emergency issues call your: Primary Care Provider, Qa Consultant Call Non-Emergent contact if: you have a fever, your pain is not controlled, your pain is worsening, your pain is unusual for you, you have any medication questions . . "Provider Documentation" section prepared by Venkatesh Banks. . AMI Core Measures Reason no ASA as I/P: Treatment provided - N/A Reason no ASA at D/C: Treatment provided - N/A Reason no statin as I/P: Treatment provided - N/A Reason no statin at D/C: Treatment provided - N/A VTE Core Measure Inpt VTE Proph given/why not?: Other Anticoagulation (IV HEPARIN), SCD's
[2017-03-30 15:01] VITALS: BP 112/72; PULSE 78; TEMP 36.6; O2SAT 92
[2017-06-18] MEDS ORDERED: TRAZ100T29 PO (14:32)
[2017-06-18] MEDS ORDERED: ALPR1TAB3 PO (14:32)
[2017-06-18] MEDS ORDERED: METO25TA56 PO (14:32)
== END 2017-03-30 16:00 | disposition home or self-care (01) | DRG 249 ==
LOC: EDBD 11:20 → C.EDA 11:25 → C.2T 14:17 → ENRESERV 14:24 → OBSVTOIN 03-27 12:10 → C.2T 03-28 15:33 → ENRESERV 03-29 09:31 → C.4E 03-29 10:28
PROVIDERS: ADMIT Internal Medicine; ATTEND Internal Medicine
PROC: B2111ZZ Fluoroscopy of Multiple Coronary Arteries using Low Osmolar Contrast (ICD-10-PCS; 2017-03-27)
PROC: 4A023N7 Measurement of Cardiac Sampling and Pressure, Left Heart, Percutaneous Approach (ICD-10-PCS; 2017-03-27)
PROC: B2111ZZ Fluoroscopy of Multiple Coronary Arteries using Low Osmolar Contrast (ICD-10-PCS; principal; 2017-03-27 08:00)
PROC: 02703DZ Dilation of Coronary Artery, One Artery with Intraluminal Device, Percutaneous Approach (ICD-10-PCS; principal; 2017-03-27 08:00)
PROC: 3E033PZ Introduction of Platelet Inhibitor into Peripheral Vein, Percutaneous Approach (ICD-10-PCS; principal; 2017-03-27 08:00)
DX: I21.4 Non-ST elevation (NSTEMI) myocardial infarction (principal); I25.10 Atherosclerotic heart disease of native coronary artery without angina pectoris; F43.21 Adjustment disorder with depressed mood; M47.892 Other spondylosis, cervical region; E03.9 Hypothyroidism, unspecified; F43.10 Post-traumatic stress disorder, unspecified; Z98.1 Arthrodesis status; Z83.3 Family history of diabetes mellitus; E78.5 Hyperlipidemia, unspecified; I10 Essential (primary) hypertension; M41.9 Scoliosis, unspecified; Z91.040 Latex allergy status; D64.9 Anemia, unspecified; G89.29 Other chronic pain; K76.0 Fatty (change of) liver, not elsewhere classified; E87.6 Hypokalemia; S61.209A Unspecified open wound of unspecified finger without damage to nail, initial encounter; I77.810 Thoracic aortic ectasia; Z82.49 Family history of ischemic heart disease and other diseases of the circulatory system; M79.7 Fibromyalgia; S39.012A Strain of muscle, fascia and tendon of lower back, initial encounter; R09.02 Hypoxemia; X58.XXXA Exposure to other specified factors, initial encounter; Y92.009 Unspecified place in unspecified non-institutional (private) residence as the place of occurrence of the external cause

== ENCOUNTER 2017-06-03 12:27 | Emergency (ER) | payer OTHER ==
[~2017-06-03 12:27] MED LIST changes: +ASPEC81 PO; -HYDR25TA4 PO; -LEVO50TA6 PO; +LEVO75TA5 PO; +LPT40 PO; +LSN5 PO; -NORT10CA3 PO; +PLV75 PO
[2017-06-03 12:33] VITALS: TEMP 37.2; Ht 162.6 cm
[2017-06-03] MEDS ORDERED: SODIUM CHLORIDE 0.9% 500ML 500 ML IV STA (13:20)
[2017-06-03] MEDS ORDERED: IBUPROFEN 200 MG TAB PO STA (13:20)
[2017-06-03] MEDS ORDERED: ACETAMINOPHEN 500 MG TAB PO STA (13:20)
[2017-06-03] MEDS ORDERED: TRAMADOL HCL 50 MG TAB PO PRN (13:30)
[2017-06-03] MEDS ORDERED: FAMOTIDINE 20 MG TAB PO ONE (13:30)
--- NOTE | 2017-06-03 13:40 | EMERGENCY ROOM VISIT NOTE ---
History Report prepared by Fariba: Zachariah Geronimo Under the Supervision of: Dr. Oskar Corado M.D. First contact with patient: 12:46 Chief Complaint: OTHER COMPLAINT Stated Complaint: SEVER PAIN IN BACK,DIZZY,R HIP/L FOOT PAIN History of Present Illness The patient is a 67 year old white female with a past medical history of IA this summer, PE, DVT, and a filter placement then removal, and a broken left foot who presents to the ED with a cc of worsening right hip pain, left foot pain, and shooting left lower back pain beginning four days ago. Positive headache and fever. Negative sore throat, congestion, cough, urinary symptoms, troubles with bowel or bladder, alcohol use, tobacco use, drug use, or recent falls. She takes aspirin and Plavix, though denies Eliquis or Xarelto. She took Tylenol for pain. She uses a walker. Source of History: patient Onset: four days ago Position: back, foot (left), other (right) Quality: other (shooting) Timing: worsening Associated Symptoms: + fevers, + headache, No sorethroat, No cough, No urinary symptoms Review of Systems See HPI for pertinent positives and negatives. A total of ten systems were reviewed and were otherwise negative. Past Medical & Surgical Medical Problems: (1) Adjustment disorder with depressed mood (2) Cervical spondylolysis (3) Dyslipidemia (4) HTN (hypertension) (5) Hypothyroidism (6) Intra-abdominal abscess (7) Lumbago (8) Post-op pain (9) PTSD (post-traumatic stress disorder) (10) Scoliosis Surgical Problems: (1) H/O colonoscopy (2) H/O ovarian cystectomy (3) H/O repair of right rotator cuff (4) H/o right knee meniscus repair (5) H/O spinal fusion (6) S/P appendectomy Family History Cancer Cardiac disorder BROTHER Diabetes mellitus FH: CHF (congestive heart failure) Heart disease Hypertension FATHER MOTHER Lung disease Social History Smoking Status: Never Smoker Alcohol Use: none Drug Use: none Marital Status: single Housing Status: lives alone Occupation Status: retired Current/Historical Medications Scheduled Amlodipine Besylate (Amlodipine Besylate), 5 MG PO DAILY Aspirin (Aspirin EC Low Dose), 81 MG PO QAM Atorvastatin (Atorvastatin Calcium), 40 MG PO QAM Calcium Carbonate-Vitamin D W/ (Caltrate 600 Plus), 1 TAB PO BID Citalopram Hydrobromide (Celexa), 1 TAB PO DAILY Clopidogrel Bisulfate (Clopidogrel), 75 MG PO QAM Levothyroxine Sodium (Levothyroxine Sodium), 1 TAB PO DAILY Lisinopril (Lisinopril), 5 MG PO QAM Magnesium Oxide (Mg Supplement (Magnesium Oxide), 400 MG PO BID Metoprolol Tartrate (Metoprolol Tartrate), 50 MG PO BID Morphine Sulfate (Morphine Sulfate Er), 30 MG PO Q12 Multivitamin (Multivitamin), 1 TAB PO DAILY Olopatadine Hydrochloride (Pataday), 1 DROPS OPB DAILY Pantoprazole (Pantoprazole Sodium), 40 MG PO QAM Polyethylene (Miralax), 17 GM PO DAILY Potassium Chloride (Klor-Con M20), 20 MEQ PO BID Prazosin Hcl (Minipress), 1 MG PO HS Trazodone HCl (Trazodone HCl), 100 MG PO HS Scheduled PRN Alprazolam (Xanax), 1 MG PO TID PRN for Anxiety Baclofen (Baclofen), 10 MG PO TID PRN for Muscle Spasm Epinephrine (Epipen 2-Lee), 0.3 MG IM UD PRN for ALLERGIC REACTION Oxycodone HCl (Oxycodone HCl), 5 MG PO QID PRN for Breakthrough Pain Prochlorperazine Maleate (Compazine), 10 MG PO for Nausea Promethazine HCl (Promethazine HCl), 25 MG PO BID PRN for Nausea Tramadol (Ultram), 50 MG PO Q6H PRN for Pain Tramadol (Ultram), 50 MG PO Q4H PRN for Pain Allergies Coded Allergies: Latex (Verified Allergy, Intermediate, RASH, 03/26/17) Nickel (Verified Allergy, Intermediate, SEVERE DERMATITIS, 03/26/17) Aspirin (Verified Adverse Reaction, Unknown, bleeding ulcers, 03/26/17) 03/26/17--dr flores inquired about aspirin allergy & reviewd history--pt has had bleeding in past while on anticoagulation, as of 03/26/17--no gi ulcers present & aspirin ok to give Physical Exam Vital Signs Date Time Temp Pulse Resp B/P (MAP) Pulse Ox O2 Delivery O2 Flow Rate FiO2 06/03/17 18:18 94 18 111/71 91 06/03/17 17:48 94 18 111/71 91 Room Air 06/03/17 16:02 96 18 137/74 92 Room Air 06/03/17 14:11 86 18 99/67 92 Room Air 06/03/17 12:33 37.2 96 18 103/74 93 Room Air Physical Exam GENERAL: Awake, alert, uncomfortable-appearing, NAD HENT: Normocephalic, atraumatic. EYES: Normal conjunctiva. Sclera non-icteric. NECK: Supple. No nuchal rigidity. FROM. RESPIRATORY: CTAB, no rhonchi, wheezing, crackles CARDIAC: RRR, no MRG ABDOMEN: Soft, NTND, BS+ MSK: Mild left lower back and left lower rib pain TTP. Right sided lateral hip pain NVI distally. SP/DP/Tib nerve intact. Dorsal mid foot pain. No erythema, calor, NVI distally. Toes warm. Allodynia. No chest wall TTP, no LE edema NEURO: GCS 15, CN 2-12 intact, moves all 4s on command SKIN: No rash or jaundice noted. Medical Decision & Procedures ER Provider Diagnostic Interpretation: X-ray: Per my interpretation, radiologist review. RIGHT PELVIS/UNILATERAL HIP 2-3VIEWS CLINICAL HISTORY: 67 years-old Female presenting with left foot pain, right hip pain, dizziness. TECHNIQUE: Single frontal view of the pelvis and frontal and frog-leg lateral views of the right hip were obtained. COMPARISON: Correlation made to CT from 10/16/2016. FINDINGS: Symphysis pubis and sacroiliac joints congruent. Evidence of osteitis condensans ilii. Bilateral hip joints congruent. No significant degenerative change of the right hip. No acute fracture or malalignment. Extensive surgical material projects over the lower lumbar region. Moderate stool burden noted in the colon, most prominently in the cecum. Extensive degenerative and postsurgical change in the lumbar spine. IMPRESSION: No acute osseous injury of the pelvis or right hip. Electronically signed by: To Watters M.D. 06/03/2017 3:07 PM Dictated Date/Time: 06/03/2017 3:04 PM LEFT FOOT MIN 3 VIEWS ROUTINE CLINICAL HISTORY: pain pain COMPARISON: None. DISCUSSION: Nondisplaced cortical fracture indeterminate age base proximal phalanx fifth toe. Mild soft tissue edema. Moderate generalized degenerative change. Heel spur. There is no evidence for soft tissue swelling. IMPRESSION: Nondisplaced cortical fracture of indeterminate age base proximal phalanx fifth toe. Moderate degenerative change. Heel spur. The above report was generated using voice recognition software. It may contain grammatical, syntax or spelling errors. Electronically signed by: Dann Felix M.D. 06/03/2017 3:05 PM Dictated Date/Time: 06/03/2017 3:03 PM Atypical chest pain. Dizziness. CLINICAL HISTORY: PAIN, DIZZY COMPARISON STUDY: 03/28/2017 FINDINGS: The heart is enlarged. There is a left subclavian A-Port catheter present. There is mild central vascular prominence without evidence of overt edema. Bibasilar opacities are likely atelectatic. There are no pleural effusions. There is no lobar consolidation.[ IMPRESSION: Stable cardiomegaly. Mild central vascular prominence without evidence of overt edema. Bibasilar opacities, likely atelectatic. Electronically signed by: Jhonny Marsh M.D. 06/03/2017 3:05 PM Dictated Date/Time: 06/03/2017 3:03 PM Laboratory Results 06/03/17 13:53 Red Blood Count 4.10, Mean Corpuscular Volume 88.8, Mean Corpuscular Hemoglobin 30.7, Mean Corpuscular Hemoglobin Concent 34.6, Mean Platelet Volume 9.6, Neutrophils (%) (Auto) 67.2, Lymphocytes (%) (Auto) 20.5, Monocytes (%) (Auto) 9.3, Eosinophils (%) (Auto) 2.5, Basophils (%) (Auto) 0.2, Neutrophils # (Auto) 8.55, Lymphocytes # (Auto) 2.61, Monocytes # (Auto) 1.19, Eosinophils # (Auto) 0.32, Basophils # (Auto) 0.03 06/03/17 13:54 Test 06/03/17 13:53 06/03/17 13:54 06/03/17 13:57 06/03/17 17:25 White Blood Count 12.74 K/uL (4.8-10.8) Red Blood Count 4.10 M/uL (4.2-5.4) Hemoglobin 12.6 g/dL (12.0-16.0) Hematocrit 36.4 % (37-47) Mean Corpuscular Volume 88.8 fL (80-100) Mean Corpuscular Hemoglobin 30.7 pg (25-34) Mean Corpuscular Hemoglobin Concent 34.6 g/dl (32-36) Platelet Count 218 K/uL (130-400) Mean Platelet Volume 9.6 fL (7.4-10.4) Neutrophils (%) (Auto) 67.2 % Lymphocytes (%) (Auto) 20.5 % Monocytes (%) (Auto) 9.3 % Eosinophils (%) (Auto) 2.5 % Basophils (%) (Auto) 0.2 % Neutrophils # (Auto) 8.55 K/uL (1.4-6.5) Lymphocytes # (Auto) 2.61 K/uL (1.2-3.4) Monocytes # (Auto) 1.19 K/uL (0.11-0.59) Eosinophils # (Auto) 0.32 K/uL (0-0.5) Basophils # (Auto) 0.03 K/uL (0-0.2) RDW Standard Deviation 46.2 fL (36.4-46.3) RDW Coefficient of Variation 14.1 % (11.5-14.5) Immature Granulocyte % (Auto) 0.3 % Immature Granulocyte # (Auto) 0.04 K/uL (0.00-0.02) Venous Blood pH 7.40 (7.36-7.41) Venous Blood Partial Pressure CO2 43 mmHg (38.0-50.0) Venous Blood Partial Pressure O2 37 mmHg Venous Blood HCO3 26 mmol/L Venous Blood Oxygen Saturation 67.4 % Venous Blood Base Excess 1.1 mEq/L Anion Gap 7.0 mmol/L (3-11) Estimated GFR () 103.9 Estimated GFR (Non- 89.7 BUN/Creatinine Ratio 20.3 (10-20) Calcium Level 8.4 mg/dl (8.5-10.1) Phosphorus Level 3.4 mg/dl (2.5-4.9) Magnesium Level 1.6 mg/dl (1.8-2.4) Bedside Troponin I < 0.030 ng/ml (0-0.045) Urine Color YELLOW Urine Appearance CLEAR (CLEAR) Urine pH 5.0 (4.5-7.5) Urine Specific [place] 1.013 (1.000-1.030) Urine Protein NEG (NEG) Urine Glucose (UA) NEG (NEG) Urine Ketones NEG (NEG) Urine Occult Blood 1+ (NEG) Urine Nitrite NEG (NEG) Urine Bilirubin NEG (NEG) Urine Urobilinogen NEG (NEG) Urine Leukocyte Esterase NEG (NEG) Urine WBC (Auto) 1-5 /hpf (0-5) Urine RBC (Auto) 0-4 /hpf (0-4) Urine Hyaline Casts (Auto) 0 /lpf (0-5) Urine Epithelial Cells (Auto) 0-5 /lpf (0-5) Urine Bacteria (Auto) NEG (NEG) Laboratory results reviewed by me Medications Administered Medications (Trade) Dose Ordered Sig/Pablo Route Start Time Stop Time Status Last Admin Dose Admin Acetaminophen (Tylenol Tab) 1,000 mg NOW STAT PO 06/03/17 13:20 06/03/17 13:24 DC 06/03/17 14:03 1,000 MG Tramadol HCl (Ultram Tab) 50 mg Q4H PRN PO 06/03/17 13:30 07/03/17 13:29 06/03/17 14:09 50 MG Famotidine (Pepcid Tab) 20 mg NOW ONCE PO 06/03/17 13:30 06/03/17 13:31 DC 06/03/17 14:01 20 MG Sodium Chloride 500 ml @ 500 mls/hr Q1H STAT IV 06/03/17 13:20 06/03/17 14:19 DC 06/03/17 14:06 500 MLS/HR Magnesium Oxide (Mag-Ox Tab) 800 mg ONE STAT PO 06/03/17 14:44 06/03/17 14:46 DC 06/03/17 16:06 800 MG Potassium Chloride (Klor-Con Tab) 40 meq ONE STAT PO 06/03/17 14:45 06/03/17 14:47 DC 06/03/17 16:07 40 MEQ Cyclobenzaprine HCl (Flexeril Tab) 10 mg ONE STAT PO 06/03/17 16:03 06/03/17 16:05 DC 06/03/17 16:06 10 MG Heparin Sodium (Porcine) (Heparin 100 Unit/ml 5ml Flush) 5 ml STK-MED ONCE .ROUTE 06/03/17 18:10 06/03/17 18:11 DC 06/03/17 18:10 5 ML ECG Indication: back/shoulder pain Rate (beats per minute): 88 Rhythm: normal sinus Findings: Q waves (Inferior in lead 3 and AVF), left axis deviation, other (T- Wave flattening in the anterior leads. No other STS or TWI) Comparison ECG Date: 03/28/17 Change: no significant change ED Course 1246: The patient was evaluated in room A10. A complete history and physical exam was performed. 1535: I reevaluated the patient, and she is waiting for medications and a urine sample 1636: I revaluated the patient, and she was doing well. 1805: I reevaluated the patient. Discussed results and discharge instructions: She verbalized understanding and agreement. The patient is ready for discharge. Medical Decision The patient is a 67 year old white female with a past medical history of IA this summer, PE, DVT, and a filter placement then removal, and a broken left foot who presents to the ED with a cc of worsening right hip pain, left foot pain, and shooting left lower back pain beginning four days ago. Positive headache and fever. Negative sore throat, congestion, cough, urinary symptoms, troubles with bowel or bladder, alcohol use, tobacco use, drug use, or recent falls. Differential Diagnoses include: Chronic pain, electrolyte abnormality, atypical chest pain, UTI, pyelonephritis, and sciatica. Patient was seen and evaluated at the bedside. Patient did complain of some left-sided flank and rib as well as right hip and left foot pain. Her pain was out of proportion to exam. Patient had no evidence of any shingles. Patient was given pain medication which mildly improved her pain. There was concern for possible atypical referred chest pain given her recent IA. Patient had a negative troponin and her EKG did not show any acute ischemic changes. Patient' s plain films were negative for any acute fracture. She was noted to have a left fifth cortical phalanx fracture. I spoke the patient is apparently old patient does have a hard sole shoe at home. Patient's UA was negative for infection. Patient's pain was improved and patient was able to ambulate at her baseline with the assistance of a walker. Patient was told that if she had any worsening or persistent symptoms she should see her PCP or return to the emergency department. Patient was given strict follow-up discharge, return precautions. Patient agreed with plan of care patient was discharged home. Medication Reconcilliation Current Medication List: was personally reviewed by me Blood Pressure Screening Patient's blood pressure: Normal blood pressure Impression Primary Impression: Closed fracture of phalanx of right fifth toe Additional Impressions: Hypokalemia Hypomagnesemia Chronic pain Scribe Attestation The scribe's documentation has been prepared under my direction and personally reviewed by me in its entirety. I confirm that the note above accurately reflects all work, treatment, procedures, and medical decision making performed by me. Departure Information Dispostion Home / Self-Care Prescriptions Tramadol (Ultram) 50 Mg Tab 50 MG PO Q4H Y for Pain, #15 TAB Prov: Oskar Corado M.D. 06/03/17 Referrals Charanjit Spann M.D.([facility]) (PCP) Forms HOME CARE DOCUMENTATION FORM, IMPORTANT VISIT INFORMATION, WORK / SCHOOL INSTRUCTIONS Patient Instructions ED Fracture, Toe, Open ([place]), Hypokalemia Dc, Hypomagnesemia Dc, My [facility] Additional Instructions Please return to the emergency department if you have worsening or recurrent symptoms not amenable to at-home treatment. Please call for a follow-up appointment with her primary care physician. Please take your medications as prescribed. If you have other concerns and/or complaints please feel free to also call your primary care physician's office or return the ED for further evaluation, management, and treatment. Work Instructions Return To Work: 2 days Specific Date: 06/05/17 Problem Qualifiers Primary Impression: Closed fracture of phalanx of right fifth toe Encounter type: subsequent encounter Fracture healing: with routine healing Qualified Codes: S92.501D - Displaced unspecified fracture of right lesser toe(s), subsequent encounter for fracture with routine healing Additional Impressions: Chronic pain Chronic pain type: other chronic pain Qualified Codes: G89.29 - Other chronic pain
[2017-06-03 14:08] LABS: VEN BLD GAS O2 SATURATION 67.4 %; VEN BLOOD GAS BASE EXCESS 1.1 mEq/L
[2017-06-03 14:18] LABS: BASO % 0.2 %; BASO ABS # 0.03 K/uL (0-0.2); COMPLETE YES; EOS % 2.5 %; HEMATOCRIT 36.4 % (37-47); IG% 0.3 %; LYMPH % 20.5 %; LYMPH ABS # 2.61 K/uL (1.2-3.4); MEAN CELL VOLUME 88.8 fL (80-100); MEAN CORPUSCULAR HEMOGLOBIN 30.7 pg (25-34); MEAN CORPUSCULAR HGB CONC 34.6 g/dl (32-36); MEAN PLATELET VOLUME 9.6 fL (7.4-10.4); MONO % 9.3 %; NEUT % 67.2 %; PLATELET COUNT 218 K/uL (130-400); WHITE BLOOD COUNT 12.74 K/uL (4.8-10.8)
[2017-06-03 14:32] LABS: BLOOD UREA NITROGEN 14 mg/dl (7-18); BUN/CREATININE RATIO 20.3 (10-20); CALCIUM 8.4 mg/dl (8.5-10.1); CARBON DIOXIDE 25 mmol/L (21-32); CHLORIDE 103 mmol/L (98-107); CREATININE 0.67 mg/dl (0.60-1.20); GLUCOSE 86 mg/dl (70-99); MAGNESIUM 1.6 mg/dl (1.8-2.4); PHOSPHORUS 3.4 mg/dl (2.5-4.9); POTASSIUM 3.2 mmol/L (3.5-5.1); SODIUM 135 mmol/L (136-145)
[2017-06-03] MEDS ORDERED: MAGNESIUM OXIDE 400 MG TAB PO STA (14:44)
[2017-06-03] MEDS ORDERED: POTASSIUM CHLORIDE 20 MEQ TABCR PO STA (14:45)
--- NOTE | 2017-06-03 15:06 | DIAGNOSTIC IMAGING REPORT ---
LEFT FOOT MIN 3 VIEWS ROUTINE CLINICAL HISTORY: pain pain COMPARISON: None. DISCUSSION: Nondisplaced cortical fracture indeterminate age base proximal phalanx fifth toe. Mild soft tissue edema. Moderate generalized degenerative change. Heel spur. There is no evidence for soft tissue swelling. IMPRESSION: Nondisplaced cortical fracture of indeterminate age base proximal phalanx fifth toe. Moderate degenerative change. Heel spur. The above report was generated using voice recognition software. It may contain grammatical, syntax or spelling errors. Electronically signed by: Dann Felix M.D. 06/03/2017 3:05 PM Dictated Date/Time: 06/03/2017 3:03 PM
--- NOTE | 2017-06-03 15:06 | DIAGNOSTIC IMAGING REPORT ---
Atypical chest pain. Dizziness. CLINICAL HISTORY: PAIN, DIZZY COMPARISON STUDY: 03/28/2017 FINDINGS: The heart is enlarged. There is a left subclavian A-Port catheter present. There is mild central vascular prominence without evidence of overt edema. Bibasilar opacities are likely atelectatic. There are no pleural effusions. There is no lobar consolidation.[ IMPRESSION: Stable cardiomegaly. Mild central vascular prominence without evidence of overt edema. Bibasilar opacities, likely atelectatic. Electronically signed by: Jhonny Marsh M.D. 06/03/2017 3:05 PM Dictated Date/Time: 06/03/2017 3:03 PM
--- NOTE | 2017-06-03 15:08 | DIAGNOSTIC IMAGING REPORT ---
RIGHT PELVIS/UNILATERAL HIP 2-3VIEWS CLINICAL HISTORY: 67 years-old Female presenting with left foot pain, right hip pain, dizziness. TECHNIQUE: Single frontal view of the pelvis and frontal and frog-leg lateral views of the right hip were obtained. COMPARISON: Correlation made to CT from 10/16/2016. FINDINGS: Symphysis pubis and sacroiliac joints congruent. Evidence of osteitis condensans ilii. Bilateral hip joints congruent. No significant degenerative change of the right hip. No acute fracture or malalignment. Extensive surgical material projects over the lower lumbar region. Moderate stool burden noted in the colon, most prominently in the cecum. Extensive degenerative and postsurgical change in the lumbar spine. IMPRESSION: No acute osseous injury of the pelvis or right hip. Electronically signed by: To Watters M.D. 06/03/2017 3:07 PM Dictated Date/Time: 06/03/2017 3:04 PM
[2017-06-03] MEDS ORDERED: CYCLOBENZAPRINE HCL 5 MG TAB PO STA (16:03)
[2017-06-03 17:38] LABS: URINE APPEARANCE CLEAR (CLEAR); URINE BILIRUBIN NEG (NEG); URINE COLOR YELLOW; URINE EPITHELIAL CELL AUTO 0-5 /lpf (0-5); URINE NITRITE NEG (NEG); URINE SPECIFIC GRAVITY 1.013 (1.000-1.030); UROBILINOGEN NEG (NEG); ZZUR CULT IF INDIC CLEAN CATCH NO
[2017-06-03 17:41] LABS: MANUAL MICROSCOPIC REQUIRED? NO; REVIEW REQ? NO
[2017-06-03] MEDS ORDERED: TRAM-10 PO (18:00)
[2017-06-03 18:18] VITALS: BP 111/71; PULSE 94; O2SAT 91
[2017-06-04] MEDS ORDERED: CYCLOBENZAPRINE HCL 5 MG TAB PO SCH (09:00)
[2017-06-18] MEDS ORDERED: TRAZ100T29 PO (14:32)
[2017-06-18] MEDS ORDERED: METO25TA56 PO (14:32)
[2017-06-18] MEDS ORDERED: ALPR1TAB3 PO (14:32)
== END 2017-06-03 18:20 | disposition home or self-care (01) ==
LOC: C.EDB 12:29 → C.EDA 18:20
DX: S92.501A Displaced unspecified fracture of right lesser toe(s), initial encounter for closed fracture (principal); X58.XXXA Exposure to other specified factors, initial encounter; G89.29 Other chronic pain; E87.6 Hypokalemia; E83.42 Hypomagnesemia; I10 Essential (primary) hypertension; E78.5 Hyperlipidemia, unspecified; E03.9 Hypothyroidism, unspecified; Z98.1 Arthrodesis status; Z98.890 Other specified postprocedural states; Z79.82 Long term (current) use of aspirin; Z79.899 Other long term (current) drug therapy; Z80.9 Family history of malignant neoplasm, unspecified; Z82.49 Family history of ischemic heart disease and other diseases of the circulatory system; Z83.3 Family history of diabetes mellitus

== ENCOUNTER 2017-08-05 12:45 | Emergency (ER) | payer OTHER ==
[~2017-08-05] VITALS: Ht 162.6 cm; Wt 79.0 kg
[~2017-08-05 12:45] MED LIST changes: -ALPR-385 PO; +ALPR1TAB3 PO; +METO25TA56 PO; -METO50TA17 PO; -RXC5 PO; +TRAZ100T29 PO
[2017-08-05 12:46] VITALS: Ht 162.6 cm; Wt 79.0 kg
[2017-08-05] MEDS ORDERED: ACETAMINOPHEN 500 MG TAB PO STA (13:06)
[2017-08-05] MEDS ORDERED: SODIUM CHLORIDE 0.9% 1000ML 1,000 ML IV STA (13:06)
[2017-08-05] MEDS ORDERED: ONDANSETRON INJ 2 MG/ML 2 ML VIAL IV STA (13:06)
[2017-08-05] MEDS ORDERED: OPTIRAY 320 IV PRN (13:15)
[2017-08-05] MEDS ORDERED: TRAMADOL HCL 50 MG TAB PO STA (13:19)
[2017-08-05] MEDS ORDERED: DIAZEPAM 2MG TAB PO ONE (13:30)
--- NOTE | 2017-08-05 13:40 | EMERGENCY ROOM VISIT NOTE ---
History Report prepared by [employer]avi[employer]foreign: Alex Nugent Under the Supervision of: Dr. Oskar Corado M.D. First contact with patient: 12:52 Chief Complaint: FEVER Stated Complaint: HIGH FEVER, VOMITING, PAIN ALL OVER History of Present Illness The patient is a 67 year old white female with a past medical history of NSTEMI , CAD s/p PCI to LAD, HTN who presents to the ED with a cc of waxing and waning fevers beginning a few weeks ago. Fever peaked at 105 degrees last night. Positive low back pain, right sided abdominal pain, dark colored urine, vomiting and body aches. Negative cough, sore throat, ear pain, rashes, chest pain, SOB, loss of bowel or bladder continence. Had diarrhea four days ago but has resolved. No recent travel. No known sick contacts. Most recent back surgery was seven years ago. Taking medications as prescribed. On aspirin and Plavix. No drug, alcohol or tobacco use. Source of History: patient Onset: a few weeks ago Symptom Intensity: 105 degrees Quality: other (fevers) Timing: waxes/wanes Associated Symptoms: + vomiting, + abdominal pain (right side), + back pain (low), + urinary symptoms (dark colored urine), No sorethroat, No cough, No chest pain, No SOB, No rash Note: Positive: body aches. Negative: ear pain, loss of bowel or bladder continence. Review of Systems See HPI for pertinent positives and negatives. A total of ten systems were reviewed and were otherwise negative. Past Medical & Surgical Medical Problems: (1) Adjustment disorder with depressed mood (2) Cervical spondylolysis (3) Dyslipidemia (4) HTN (hypertension) (5) Hypothyroidism (6) Intra-abdominal abscess (7) Lumbago (8) Post-op pain (9) PTSD (post-traumatic stress disorder) (10) Scoliosis Surgical Problems: (1) H/O colonoscopy (2) H/O ovarian cystectomy (3) H/O repair of right rotator cuff (4) H/o right knee meniscus repair (5) H/O spinal fusion (6) S/P appendectomy Family History Cancer Cardiac disorder BROTHER Diabetes mellitus FH: CHF (congestive heart failure) Heart disease Hypertension FATHER MOTHER Lung disease Social History Smoking Status: Never Smoker Alcohol Use: none Drug Use: none Marital Status: single Housing Status: lives alone Occupation Status: retired Current/Historical Medications Scheduled Amlodipine Besylate (Amlodipine Besylate), 5 MG PO DAILY Aspirin (Aspirin EC Low Dose), 81 MG PO QAM Atorvastatin (Atorvastatin Calcium), 40 MG PO QAM Calcium Carbonate-Vitamin D W/ (Caltrate 600 Plus), 1 TAB PO BID Citalopram Hydrobromide (Celexa), 1 TAB PO DAILY Clopidogrel Bisulfate (Clopidogrel), 75 MG PO QAM Levothyroxine Sodium (Levothyroxine Sodium), 1 TAB PO DAILY Lisinopril (Lisinopril), 5 MG PO QAM Magnesium Oxide (Mg Supplement (Magnesium Oxide), 400 MG PO BID Metoprolol Tartrate (Lopressor) (Lopressor), 1 TAB PO BID Morphine Sulfate (Morphine Sulfate Er), 30 MG PO Q12 Multivitamin (Multivitamin), 1 TAB PO DAILY Olopatadine Hydrochloride (Pataday), 1 DROPS OPB DAILY Pantoprazole (Pantoprazole Sodium), 40 MG PO QAM Polyethylene (Miralax), 17 GM PO DAILY Potassium Chloride (Klor-Con M20), 20 MEQ PO BID Prazosin Hcl (Minipress), 1 MG PO HS Trazodone HCl (Trazodone HCl), 100 MG PO HS Trazodone Hcl (Trazodone), 100 MG PO HS Scheduled PRN Alprazolam (Xanax), 1 MG PO BID PRN for Anxiety/Agitation Baclofen (Baclofen), 10 MG PO TID PRN for Muscle Spasm Epinephrine (Epipen 2-Lee), 0.3 MG IM UD PRN for ALLERGIC REACTION Prochlorperazine Maleate (Compazine), 10 MG PO for Nausea Promethazine HCl (Promethazine HCl), 25 MG PO BID PRN for Nausea Tramadol (Ultram), 50 MG PO Q4H PRN for Pain Allergies Coded Allergies: Latex (Verified Allergy, Intermediate, RASH, 03/26/17) Nickel (Verified Allergy, Intermediate, SEVERE DERMATITIS, 03/26/17) Aspirin (Verified Adverse Reaction, Unknown, bleeding ulcers, 03/26/17) 03/26/17--dr flores inquired about aspirin allergy & reviewd history--pt has had bleeding in past while on anticoagulation, as of 03/26/17--no gi ulcers present & aspirin ok to give Physical Exam Vital Signs Date Time Temp Pulse Resp B/P (MAP) Pulse Ox O2 Delivery O2 Flow Rate FiO2 08/05/17 18:50 37.2 82 20 112/69 98 Room Air 08/05/17 17:05 112/69 08/05/17 17:04 37.6 85 20 112/69 95 Room Air 08/05/17 16:40 79 17 08/05/17 16:02 37.6 08/05/17 15:30 83 13 08/05/17 15:25 82 14 08/05/17 15:20 82 9 08/05/17 15:15 82 16 08/05/17 15:10 93 14 08/05/17 15:05 85 18 08/05/17 15:00 88 19 08/05/17 14:55 87 20 08/05/17 14:50 82 18 08/05/17 14:45 83 19 08/05/17 14:40 88 13 08/05/17 14:35 83 14 08/05/17 14:30 81 17 08/05/17 14:25 84 18 08/05/17 14:20 90 17 08/05/17 14:15 87 16 08/05/17 14:10 87 16 08/05/17 14:05 89 17 08/05/17 14:00 86 14 08/05/17 13:55 87 17 08/05/17 13:50 90 20 08/05/17 13:45 90 17 08/05/17 13:40 89 16 08/05/17 13:37 90 08/05/17 12:46 38.0 108 18 106/69 92 Room Air Physical Exam GENERAL: Awake, alert, well-appearing, NAD HENT: Normocephalic, atraumatic. EYES: Normal conjunctiva. Sclera non-icteric. NECK: Supple. No nuchal rigidity. FROM. No signs of meningismus. RESPIRATORY: CTAB, no rhonchi, wheezing, crackles CARDIAC: RRR, no MRG ABDOMEN: Soft, ND, BS+. Diffuse abdominal TTP. MSK: No chest wall TTP, no LE edema NEURO: GCS 15, CN 2-12 intact, moves all 4s on command. No sensory deficits in lower extremities. No saddle anesthesia. Motor and sensory intact to SP/DP and tib nerves. SKIN: No rash or jaundice noted. Medical Decision & Procedures ER Provider Diagnostic Interpretation: Radiology results as stated below per my review and radiologist interpretation: CHEST ONE VIEW PORTABLE FINDINGS: A left subclavian [id number] remains in place. There is no pneumothorax. Cardiomediastinal silhouette is stable. Megaly is unchanged. Bibasilar opacities favor atelectasis. There is no evidence of pulmonary edema. IMPRESSION: 1. No acute cardiopulmonary findings. 2. Bibasilar opacities which favor atelectasis. Electronically signed by: Gonsalo Villafana M.D. 08/05/2017 2:[address] SCAN OF THE ABDOMEN AND PELVIS WITH IV CONTRAST FINDINGS: Lung bases: There is left basilar scarring with chronic volume loss at the left lung base. There is associated leftward shift the mediastinum. No airspace consolidation or pleural effusion is seen. The heart is top normal in size and there is trace pericardial fluid. The lung bases are clear. There is a small hiatal hernia. Liver: The contrast-enhanced liver is top normal in size. The liver demonstrates diffusely diminished attenuation consistent with hepatic steatosis. There is no intrahepatic biliary ductal dilatation. The hepatic veins and portal veins are patent. Gallbladder: Unremarkable. Spleen: Normal in size and attenuation. Pancreas: The pancreas is moderately atrophic grossly unremarkable. Adrenal glands: Unremarkable. Kidneys: The contrast enhanced kidneys demonstrate mild cortical atrophy and are without hydronephrosis. The kidneys enhance symmetrically. Bilateral subcentimeter cortical hypodensities likely represent cysts but are too small for definitive characterization. A 4 mm nonobstructing calculus is again seen in the upper pole of the left kidney. A circumaortic left renal vein is incidentally noted. Abdominal vasculature: The abdominal aorta is normal in course and caliber noting moderate atherosclerotic calcification. Bowel: Postoperative change suggests ileocolic resection with ileocolic anastomosis. No bowel obstruction is seen. There is moderate fecal retention noted in the right colon. There is mild colonic diverticulosis without CT evidence of acute diverticulitis. The appendix is not identified and reported surgically absent Peritoneum: There is no intraperitoneal free air or abdominal ascites. There is a tiny fat-containing umbilical hernia. There is marked fatty atrophy of the left rectus muscle. Lymphadenopathy: None. Pelvic viscera: The bladder is normal as visualized. A small exophytic uterine fibroid is again suggested. No adnexal lesion is seen. Numerous calcified phleboliths are present in the pelvis. Gluteal soft tissue calcifications are observed. Skeletal structures: The skeletal structures are osteopenic. No lytic or blastic bony lesions are identified. There are postoperative changes from extensive laminectomy throughout the entirety of the visualized thoracolumbar spine. There is thoracolumbar scoliosis. Advanced sclerotic changes are seen involving the sacroiliac joints. A bone graft donor site is noted in the left ilium. Postoperative or posttraumatic changes are again seen in the left posterior 8th and 10th ribs. An intrathecal lead catheter fragment versus cerclage wire is present at the level of L3. Soft tissues: Induration/scarring is again seen within the ventral abdominal pannus. No fluid collection is identified. IMPRESSION: 1. There are no acute infectious or inflammatory findings in the abdomen or pelvis. 2. Moderate fecal retention is noted in the right colon. 3. Suspect fibroid uterus. 4. Hepatic steatosis. 5. Extensive postoperative change is again noted in the thoracolumbar spine. There is a cerclage wire versus intrathecal lead fragment present at the level of L3. This is similar to prior studies. 6. Small nonobstructing left renal calculus. 7. Additional findings as above. Electronically signed by: Ivan Smith M.D. 08/05/2017 5:38 PM Laboratory Results 08/05/17 14:25 Red Blood Count 3.60, Mean Corpuscular Volume 90.0, Mean Corpuscular Hemoglobin 29.7, Mean Corpuscular Hemoglobin Concent 33.0, Mean Platelet Volume 9.6, Neutrophils (%) (Auto) 67.3, Lymphocytes (%) (Auto) 19.2, Monocytes (%) (Auto) 10.0, Eosinophils (%) (Auto) 1.9, Basophils (%) (Auto) 0.2, Neutrophils # (Auto ) 9.59, Lymphocytes # (Auto) 2.74, Monocytes # (Auto) 1.43, Eosinophils # (Auto ) 0.27, Basophils # (Auto) 0.03 08/05/17 13:40 Test 08/05/17 13:40 08/05/17 13:41 08/05/17 14:22 08/05/17 14:25 Est Creatinine Clear Calc Drug Dose 73.0 ml/min Estimated GFR () 95.8 Estimated GFR (Non- 82.7 BUN/Creatinine Ratio 19.3 (10-20) Calcium Level 7.3 mg/dl (8.5-10.1) Total Bilirubin 0.5 mg/dl (0.2-1) Direct Bilirubin 0.2 mg/dl (0-0.2) Aspartate Amino Transf (AST/SGOT) 20 U/L (15-37) Alanine Aminotransferase (ALT/SGPT) 18 U/L (12-78) Alkaline Phosphatase 76 U/L (45-117) Total Protein 6.0 gm/dl (6.4-8.2) Albumin 2.6 gm/dl (3.4-5.0) Lipase 45 U/L (73-393) Lactic Acid Level 1.3 mmol/L (0.4-2.0) Magnesium Level 1.2 mg/dl (1.8-2.4) Troponin I < 0.015 ng/ml (0-0.045) Bedside Hemoglobin 11.2 g/dl (12.0-16.0) Bedside Hematocrit 33 % (37-47) Bedside Sodium 134 mEq/L (135-144) Bedside Potassium 4.2 mEq/L (3.3-5.0) Bedside Chloride 100 mEq/L (101-112) Bedside Total CO2 26 mEq/l (24-31) Anion Gap 13.0 mmol/L (16-25) Bedside Blood Urea Nitrogen 18 mg/dl (7-18) Bedside Creatinine 0.9 mg/dl (0.6-1.3) Bedside Glucose (other) 105 mg/dl (70-99) Bedside Ionized Calcium ([place]) 0.97 mmol/l (1.12-1.32) White Blood Count 14.26 K/uL (4.8-10.8) Red Blood Count 3.60 M/uL (4.2-5.4) Hemoglobin 10.7 g/dL (12.0-16.0) Hematocrit 32.4 % (37-47) Mean Corpuscular Volume 90.0 fL (80-100) Mean Corpuscular Hemoglobin 29.7 pg (25-34) Mean Corpuscular Hemoglobin Concent 33.0 g/dl (32-36) Platelet Count 260 K/uL (130-400) Mean Platelet Volume 9.6 fL (7.4-10.4) Neutrophils (%) (Auto) 67.3 % Lymphocytes (%) (Auto) 19.2 % Monocytes (%) (Auto) 10.0 % Eosinophils (%) (Auto) 1.9 % Basophils (%) (Auto) 0.2 % Neutrophils # (Auto) 9.59 K/uL (1.4-6.5) Lymphocytes # (Auto) 2.74 K/uL (1.2-3.4) Monocytes # (Auto) 1.43 K/uL (0.11-0.59) Eosinophils # (Auto) 0.27 K/uL (0-0.5) Basophils # (Auto) 0.03 K/uL (0-0.2) RDW Standard Deviation 48.0 fL (36.4-46.3) RDW Coefficient of Variation 14.4 % (11.5-14.5) Immature Granulocyte % (Auto) 1.4 % Immature Granulocyte # (Auto) 0.20 K/uL (0.00-0.02) Test 08/05/17 14:30 08/05/17 16:55 Influenza Type A Antigen Neg for Influ A (NEG) Influenza Type B Antigen Neg for Influ B (NEG) Urine Color YELLOW Urine Appearance CLEAR (CLEAR) Urine pH 5.0 (4.5-7.5) Urine Specific [place] 1.014 (1.000-1.030) Urine Protein NEG (NEG) Urine Glucose (UA) NEG (NEG) Urine Ketones NEG (NEG) Urine Occult Blood NEG (NEG) Urine Nitrite NEG (NEG) Urine Bilirubin NEG (NEG) Urine Urobilinogen NEG (NEG) Urine Leukocyte Esterase NEG (NEG) Laboratory results reviewed by me Medications Administered Medications (Trade) Dose Ordered Sig/Pablo Route Start Time Stop Time Status Last Admin Dose Admin Sodium Chloride 1,000 ml @ 999 mls/hr Q1H1M STAT IV 08/05/17 13:06 08/05/17 14:06 DC 08/05/17 13:36 999 MLS/HR Ondansetron HCl (Zofran Inj) 4 mg NOW STAT IV 08/05/17 13:06 08/05/17 13:09 DC 08/05/17 13:36 4 MG Acetaminophen (Tylenol Tab) 1,000 mg NOW STAT PO 08/05/17 13:06 08/05/17 13:09 DC 08/05/17 13:38 1,000 MG Tramadol HCl (Ultram Tab) 50 mg NOW STAT PO 08/05/17 13:19 08/05/17 13:20 DC 08/05/17 13:30 50 MG Diazepam (Valium Tab) 2 mg NOW ONCE PO 08/05/17 13:30 08/05/17 13:31 DC 08/05/17 13:30 2 MG Magnesium Oxide (Mag-Ox Tab) 800 mg ONE STAT PO 08/05/17 14:23 08/05/17 14:25 DC 08/05/17 16:00 800 MG Potassium Chloride (Thelma Ciel Elix) 40 meq NOW STAT PO 08/05/17 14:23 08/05/17 14:25 DC 08/05/17 16:02 40 MEQ Sodium Chloride 500 ml @ 500 mls/hr Q1H STAT IV 08/05/17 15:28 08/05/17 16:27 DC 08/05/17 16:01 500 MLS/HR ECG Indication: back/shoulder pain Rate (beats per minute): 79 Rhythm: normal sinus Findings: other (Normal intervals. LAD. Questionable Q waves inferiorly. No other STS changes or TWI. Baseline artifact noted.) Comparison ECG Date: June 03, 2017 Change: no significant change ED Course 1256: The patient was evaluated in room A2. A complete history and physical exam was performed. 1306: Ordered Tylenol Tab 1000 mg PO, Zofran Inj 4 mg IV, Sodium Chloride 1000 ml @ 999 mls/hr IV. 1319: Ordered Ultram Tab 50 mg PO. 1330: Ordered Valium Tab 2 mg PO. 1423: Ordered Thelma Ciel Elix 40 meq PO, Mag-Ox Tab 800 mg PO. 1528: Ordered Sodium Chloride 500 ml @ 500 mls/hr IV. 1920: I reevaluated the patient. Discussed results and discharge instructions: she verbalized understanding and agreement. The patient is ready for discharge. Medical Decision The patient is a 67 year old white female with a past medical history of NSTEMI , CAD s/p PCI to LAD, HTN who presents to the ED with a cc of waxing and waning fevers beginning a few weeks ago. Differential diagnosis: Etiologies such as viral syndrome, otitis, pharyngitis, pneumonia, influenza, meningitis, urinary tract infection, sepsis, bacteremia, as well as others were entertained. Patient was seen and evaluated at the bedside. Patient isn't complaining of feeling sick for the last several weeks. Patient states she had a documented fever of 105 at home. Patient has been complaining of some right-sided flank and abdominal pain. Patient does have a history of chronic back pain and spinal fusion. Last operation was possibly 7 weeks prior. Patient is nontender weight loss, saddle anesthesia, bowel or bladder incontinence, numbness tingling or weakness of the bilateral lower extremities. She is somewhat limited secondary to pain. Patient is having ED treatment plan and is on the known narcs list. Patient denies any sore throat, congestion, cough. Patient denies any chest pain or shortness of breath. Patient does have fairly severe diffuse abdominal pain that is worse on the right abdomen. Patient white count of 14,000. Patient had a CT the abdomen pelvis is negative for acute inflammatory or infectious disease. Patient's hemoglobin was 11. Patient had no major abnormalities in her LFTs or lipase. Patient urine negative. Patient's white count had been as high as 12,000 her last visit. Patient was sleeping comfortably at the bedside when reassessed. Patient still was stating that she had some back pain. Patient is on the no narcotics less given a prior history of a respiratory arrest secondary to narcotic medication in the past. Patient was given additional pain medications. I did discuss the patient's CT of the abdomen pelvis particularly looking at the lumbar spine with the on-call radiologist who made the read. He took a look at this one as well as the old one and stated that there was no significant change noted and unlikely to be an infective process within the spine. We discussed this as we are unable to get an MRI of the spine given this questionable lead that is at L3 could be an issue within the MRI. I discussed the results with the patient. Furthermore given the patient's chronicity of her purported fever if it was truly in her back she would likely be very sick at this time. Patient was then able to call for a ride was able to ambulate albeit with pain with the assistance of a walker. Patient was given strict follow-up, discharge, and return precautions. Patient was also told to follow-up with her prior spinal surgeon who is at [facility] given the concern for this persistent and chronic back pain. Patient was also told to follow up with whomever had placed her prior nerve stimulator in the past. Given upon reassessment patient had no bowel or bladder incontinence or saddle anesthesia, no lower extremity numbness. Medication Reconcilliation Current Medication List: was personally reviewed by me Blood Pressure Screening Patient's blood pressure: Normal blood pressure Blood pressure disposition: Did not require urgent referral Consults Time Called: 1912 Consulting Physician: Dr. Smith -Radiology Returned Call: 1914 Discussed the patient's case. Dr. Smith reformatted previous CT scans for comparison. He states that an abscess is very unlikely. He notes that there is stool with some fecal retention on the current CT. Impression Primary Impression: Fever Additional Impression: Abdominal pain Scribe Attestation The scribe's documentation has been prepared under my direction and personally reviewed by me in its entirety. I confirm that the note above accurately reflects all work, treatment, procedures, and medical decision making performed by me. Departure Information Dispostion Home / Self-Care Referrals Charanjit Spann M.D.([facility]) (PCP) Patient Instructions ED Fever Unconf Cause Ch, My [facility] Additional Instructions Please return to the emergency department if you have worsening or recurrent symptoms not amenable to at-home treatment. Please call for a follow-up appointment with her primary care physician. Please take your medications as prescribed. If you have other concerns and/or complaints please feel free to also call your primary care physician's office or return the ED for further evaluation, management, and treatment. You have been examined and treated today on an emergency basis only. This is not a substitute for, or an effort to provide, complete comprehensive medical care. It is impossible to recognize and treat all injuries or illnesses in a single emergency department visit. It is therefore important that you follow up closely with [facility]. Call as soon as possible for an appointment. Thank you for your time and consideration. I look forward to speaking with you again soon. Please don't hesitate to call us if you have any questions. Problem Qualifiers Primary Impression: Fever Fever type: unspecified Qualified Codes: R50.9 - Fever, unspecified Additional Impression: Abdominal pain Abdominal location: right upper quadrant Qualified Codes: R10.11 - Right upper quadrant pain
[2017-08-05 14:10] LABS: BUN/CREATININE RATIO 19.3 (10-20); CALCIUM 7.3 mg/dl (8.5-10.1); CREATININE 0.74 mg/dl (0.60-1.20); POTASSIUM 3.4 mmol/L (3.5-5.1)
[2017-08-05 14:13] LABS: MAGNESIUM 1.2 mg/dl (1.8-2.4)
[2017-08-05] MEDS ORDERED: POTASSIUM CHLORIDE 20 MEQ/15 ML UDC PO STA (14:23)
[2017-08-05] MEDS ORDERED: MAGNESIUM OXIDE 400 MG TAB PO STA (14:23)
[2017-08-05 14:35] LABS: ISTAT CREATININE 0.9 mg/dl (0.6-1.3); ISTAT HEMOGLOBIN 11.2 g/dl (12.0-16.0); ISTAT IONIZED CALCIUM 0.97 mmol/l (1.12-1.32)
--- NOTE | 2017-08-05 14:45 | DIAGNOSTIC IMAGING REPORT ---
CHEST ONE VIEW PORTABLE CLINICAL HISTORY: Abdominal pain. Fever. Vomiting. COMPARISON STUDY: Chest radiograph June 03, 2017. FINDINGS: A left subclavian Dhknqa-s-Giye remains in place. There is no pneumothorax. Cardiomediastinal silhouette is stable. Megaly is unchanged. Bibasilar opacities favor atelectasis. There is no evidence of pulmonary edema. IMPRESSION: 1. No acute cardiopulmonary findings. 2. Bibasilar opacities which favor atelectasis. Electronically signed by: Gonsalo Villafana M.D. 08/05/2017 2:44 PM Dictated Date/Time: 08/05/2017 2:43 PM
[2017-08-05 14:50] LABS: HEMATOCRIT 32.4 % (37-47); MEAN CORPUSCULAR HEMOGLOBIN 29.7 pg (25-34); MEAN PLATELET VOLUME 9.6 fL (7.4-10.4); PLATELET COUNT 260 K/uL (130-400); WHITE BLOOD COUNT 14.26 K/uL (4.8-10.8)
[2017-08-05 15:00] LABS: BASO % 0.2 %; BASO ABS # 0.03 K/uL (0-0.2); COMPLETE YES; EOS % 1.9 %; IG% 1.4 %; LYMPH % 19.2 %; LYMPH ABS # 2.74 K/uL (1.2-3.4); NEUT % 67.3 %
[2017-08-05] MEDS ORDERED: SODIUM CHLORIDE 0.9% 500ML 500 ML IV STA (15:28)
[2017-08-05 17:15] LABS: URINE APPEARANCE CLEAR (CLEAR); URINE BILIRUBIN NEG (NEG); URINE COLOR YELLOW; URINE NITRITE NEG (NEG); URINE SPECIFIC GRAVITY 1.014 (1.000-1.030); UROBILINOGEN NEG (NEG); ZZUR CULT IF INDIC CLEAN CATCH NO
[2017-08-05 17:23] LABS: MANUAL MICROSCOPIC REQUIRED? NO; REVIEW REQ? NO
--- NOTE | 2017-08-05 17:40 | DIAGNOSTIC IMAGING REPORT ---
CT SCAN OF THE ABDOMEN AND PELVIS WITH IV CONTRAST CLINICAL HISTORY: Generalized abdominal pain. Fever. COMPARISON STUDY: Prior abdominal CT scans, most recently dated 10/16/2016. TECHNIQUE: Following the IV administration of 119 cc of Optiray 320, CT scan of the abdomen and pelvis is performed from the lung bases to the proximal femora. Images are reviewed in the axial, sagittal, and coronal planes. IV contrast was administered without complication. Automated dose control exposure was utilized. CT DOSE: 990.72 mGy.cm FINDINGS: Lung bases: There is left basilar scarring with chronic volume loss at the left lung base. There is associated leftward shift the mediastinum. No airspace consolidation or pleural effusion is seen. The heart is top normal in size and there is trace pericardial fluid. The lung bases are clear. There is a small hiatal hernia. Liver: The contrast-enhanced liver is top normal in size. The liver demonstrates diffusely diminished attenuation consistent with hepatic steatosis. There is no intrahepatic biliary ductal dilatation. The hepatic veins and portal veins are patent. Gallbladder: Unremarkable. Spleen: Normal in size and attenuation. Pancreas: The pancreas is moderately atrophic grossly unremarkable. Adrenal glands: Unremarkable. Kidneys: The contrast enhanced kidneys demonstrate mild cortical atrophy and are without hydronephrosis. The kidneys enhance symmetrically. Bilateral subcentimeter cortical hypodensities likely represent cysts but are too small for definitive characterization. A 4 mm nonobstructing calculus is again seen in the upper pole of the left kidney. A circumaortic left renal vein is incidentally noted. Abdominal vasculature: The abdominal aorta is normal in course and caliber noting moderate atherosclerotic calcification. Bowel: Postoperative change suggests ileocolic resection with ileocolic anastomosis. No bowel obstruction is seen. There is moderate fecal retention noted in the right colon. There is mild colonic diverticulosis without CT evidence of acute diverticulitis. The appendix is not identified and reported surgically absent Peritoneum: There is no intraperitoneal free air or abdominal ascites. There is a tiny fat-containing umbilical hernia. There is marked fatty atrophy of the left rectus muscle. Lymphadenopathy: None. Pelvic viscera: The bladder is normal as visualized. A small exophytic uterine fibroid is again suggested. No adnexal lesion is seen. Numerous calcified phleboliths are present in the pelvis. Gluteal soft tissue calcifications are observed. Skeletal structures: The skeletal structures are osteopenic. No lytic or blastic bony lesions are identified. There are postoperative changes from extensive laminectomy throughout the entirety of the visualized thoracolumbar spine. There is thoracolumbar scoliosis. Advanced sclerotic changes are seen involving the sacroiliac joints. A bone graft donor site is noted in the left ilium. Postoperative or posttraumatic changes are again seen in the left posterior 8th and 10th ribs. An intrathecal lead catheter fragment versus cerclage wire is present at the level of L3. Soft tissues: Induration/scarring is again seen within the ventral abdominal pannus. No fluid collection is identified. IMPRESSION: 1. There are no acute infectious or inflammatory findings in the abdomen or pelvis. 2. Moderate fecal retention is noted in the right colon. 3. Suspect fibroid uterus. 4. Hepatic steatosis. 5. Extensive postoperative change is again noted in the thoracolumbar spine. There is a cerclage wire versus intrathecal lead fragment present at the level of L3. This is similar to prior studies. 6. Small nonobstructing left renal calculus. 7. Additional findings as above. Electronically signed by: Ivan Smith M.D. 08/05/2017 5:38 PM Dictated Date/Time: 08/05/2017 5:29 PM
[2017-08-05 18:50] VITALS: TEMP 37.2
[2017-08-05] MEDS ORDERED: ACETAMINOPHEN 325 MG TAB PO STA (20:05)
[2017-08-05] MEDS ORDERED: CYCLOBENZAPRINE HCL 5 MG TAB PO ONE (20:15)
[2017-08-05 20:50] VITALS: BP 115/76; PULSE 88; O2SAT 98
[2017-08-06] MEDS ORDERED: CYCLOBENZAPRINE HCL 5 MG TAB PO SCH (09:00)
== END 2017-08-05 20:50 | disposition home or self-care (01) ==
LOC: C.EDB 12:47 → C.EDA 20:50
DX: R50.9 Fever, unspecified (principal); R10.9 Unspecified abdominal pain; I10 Essential (primary) hypertension; E78.5 Hyperlipidemia, unspecified; E03.9 Hypothyroidism, unspecified; G89.29 Other chronic pain; M54.9 Dorsalgia, unspecified; Z98.1 Arthrodesis status; Z96.651 Presence of right artificial knee joint; Z98.890 Other specified postprocedural states; Z79.82 Long term (current) use of aspirin; Z79.899 Other long term (current) drug therapy; Z88.6 Allergy status to analgesic agent; Z91.040 Latex allergy status; Z91.09 Other allergy status, other than to drugs and biological substances; Z80.9 Family history of malignant neoplasm, unspecified; Z83.3 Family history of diabetes mellitus; Z82.49 Family history of ischemic heart disease and other diseases of the circulatory system

== ENCOUNTER 2017-08-07 18:50 | Inpatient (IN) | payer OTHER ==
[~2017-08-07] VITALS: Ht 162.6 cm; Wt 90.1 kg
[2017-08-07] MEDS ORDERED: MoRPHine SULFATE IR 15 MG TAB (IMMEDIATE RELEASE) PO STA (19:40)
[2017-08-07] MEDS ORDERED: METOCLOPRAMIDE HCL INJ 5 MG/ML 2 ML VIAL IV STA (19:40)
[2017-08-07] MEDS ORDERED: SODIUM CHLORIDE 0.9% 1000ML 1,000 ML IV STA (19:40)
--- NOTE | 2017-08-07 20:42 | DIAGNOSTIC IMAGING REPORT ---
CHEST ONE VIEW PORTABLE CLINICAL HISTORY: Torus of breath COMPARISON STUDY: 08/05/2017 FINDINGS: The heart remains mildly enlarged. There is a left-sided A-Port catheter unchanged in position. There is stable mild interstitial thickening. There is no lobar consolidation. Bibasilar opacities remain stable and are likely atelectatic. There is a thoracic scoliosis. There are no significant pleural effusions.[ IMPRESSION: 1. Stable cardiomegaly and mild interstitial thickening 2. Bibasilar opacities likely atelectatic Electronically signed by: Jhonny Marsh M.D. 08/07/2017 8:41 PM Dictated Date/Time: 08/07/2017 8:40 PM
[2017-08-07 20:58] LABS: BASO % 0.2 %; BASO ABS # 0.02 K/uL (0-0.2); COMPLETE YES; EOS % 0.5 %; HEMATOCRIT 34.6 % (37-47); IG% 0.5 %; LYMPH % 17.5 %; LYMPH ABS # 2.32 K/uL (1.2-3.4); MEAN CELL VOLUME 87.8 fL (80-100); MEAN CORPUSCULAR HEMOGLOBIN 30.7 pg (25-34); MEAN PLATELET VOLUME 9.5 fL (7.4-10.4); MONO % 6.1 %; NEUT % 75.2 %; PLATELET COUNT 365 K/uL (130-400); RED BLOOD COUNT 3.94 M/uL (4.2-5.4); WHITE BLOOD COUNT 13.24 K/uL (4.8-10.8)
[2017-08-07] MEDS ORDERED: ASPI81TA28 PO (21:21)
[2017-08-07] MEDS ORDERED: TRAM-10 PO (21:21)
[2017-08-07] MEDS ORDERED: POLY335019 PO (21:21)
[2017-08-07] MEDS ORDERED: CLOP1TAB15 PO (21:21)
[2017-08-07] MEDS ORDERED: LISI-729 PO (21:21)
[2017-08-07] MEDS ORDERED: PANT40TA PO (21:21)
[2017-08-07] MEDS ORDERED: CITA10TA8 PO (21:21)
[2017-08-07] MEDS ORDERED: ATOR-24 PO (21:21)
[2017-08-07] MEDS ORDERED: MRPSR30 PO (21:21)
[2017-08-07] MEDS ORDERED: POTA20TA16 PO (21:24)
[2017-08-07 21:27] LABS: BUN/CREATININE RATIO 11.5 (10-20); CREATININE 0.57 mg/dl (0.60-1.20); POTASSIUM 3.5 mmol/L (3.5-5.1)
[2017-08-07] MEDS ORDERED: OXYCODONE HCL IR 5 MG TAB (IMMEDIATE RELEASE) PO STA (21:49)
[2017-08-07 22:21] LABS: URINE APPEARANCE CLEAR (CLEAR); URINE BILIRUBIN NEG (NEG); URINE COLOR YELLOW; URINE NITRITE NEG (NEG); URINE PH 8.5 (4.5-7.5); URINE SPECIFIC GRAVITY 1.006 (1.000-1.030); UROBILINOGEN NEG (NEG); ZZUR CULT IF INDIC CLEAN CATCH NO
[2017-08-07 22:29] LABS: MANUAL MICROSCOPIC REQUIRED? NO; REVIEW REQ? NO
--- NOTE | 2017-08-07 23:01 | EMERGENCY ROOM VISIT NOTE ---
History Report prepared by Fariba: Cherie Lizarraga Under the Supervision of: Dr. Adan Baxter M.D. 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 She states that the pain is so severe that she can no longer get up to go to the bathroom. She had her last dose of morphine last night around 1999. She usually takes some at 0800 in the morning, but was unable to keep her medications down. She has been having nausea and vomiting. She has a history of cyclic vomiting. She reports having throughout her entire body. She has a headache and back pain. She has a history of migraines and back surgery. She complains of fever and chills. She denies any urinary symptoms. She notes that she was seen in the ED several days ago and was discharged on antibiotics for an infection although this is not documented in her ED visit. Later patient remember that she saw an oral surgeon outpatient who thought she may have a dental infection/abscess and was started on Augmentin. Her pain has worsened since her last ED visit. 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 A total of ten systems were reviewed and were otherwise negative. Past Medical & Surgical Medical Problems: (1) Adjustment disorder with depressed mood (2) Cervical spondylolysis (3) Dyslipidemia (4) HTN (hypertension) (5) Hypothyroidism (6) Intra-abdominal abscess (7) Lumbago (8) Post-op pain (9) PTSD (post-traumatic stress disorder) (10) Scoliosis (11) Sepsis Surgical Problems: (1) H/O colonoscopy (2) H/O ovarian cystectomy (3) H/O repair of right rotator cuff (4) H/o right knee meniscus repair (5) H/O spinal fusion (6) S/P appendectomy Family History Cancer Cardiac disorder BROTHER Diabetes mellitus FH: CHF (congestive heart failure) Heart disease Hypertension FATHER MOTHER Lung disease Social History Smoking Status: Never Smoker Alcohol Use: none Drug Use: none Marital Status: single Housing Status: lives alone Occupation Status: retired Current/Historical Medications Scheduled Amlodipine Besylate (Amlodipine Besylate), 5 MG PO DAILY Aspirin (Aspirin Ec), 81 MG PO DAILY Atorvastatin (Lipitor), 40 MG PO DAILY Calcium Carbonate-Vitamin D W/ (Caltrate 600 Plus), 1 TAB PO BID Citalopram Hydrobromide (Celexa), 10 MG PO DAILY Clopidogrel (Plavix), 75 MG PO DAILY Levothyroxine Sodium (Levothyroxine Sodium), 1 TAB PO DAILY Lisinopril (Zestril), 5 MG PO DAILY Magnesium Oxide (Mg Supplement (Magnesium Oxide), 400 MG PO BID Metoprolol Tartrate (Lopressor) (Lopressor), 1 TAB PO BID Morphine Sulfate (Morphine Sulfate ER), 1 TAB PO Q12 Multivitamin (Multivitamin), 1 TAB PO DAILY Olopatadine Hydrochloride (Pataday), 1 DROPS OPB DAILY Pantoprazole (Protonix), 40 MG PO DAILY Polyethylene Glycol 3350 (Miralax), 17 GM PO DAILY Potassium Ext Rel (Klor-Con), 20 MEQ PO BID Prazosin Hcl (Minipress), 1 MG PO HS Trazodone HCl (Trazodone HCl), 100 MG PO HS Scheduled PRN Alprazolam (Xanax), 1 MG PO BID PRN for Anxiety/Agitation Baclofen (Baclofen), 10 MG PO TID PRN for Muscle Spasm Epinephrine (Epipen 2-Lee), 0.3 MG IM UD PRN for ALLERGIC REACTION Prochlorperazine Maleate (Compazine), 10 MG PO for Nausea Promethazine HCl (Promethazine HCl), 25 MG PO BID PRN for Nausea Tramadol (Ultram), 50 MG PO Q4H PRN for Pain Allergies Coded Allergies: Latex (Verified Allergy, Intermediate, RASH, 08/07/17) Nickel (Verified Allergy, Intermediate, SEVERE DERMATITIS, 08/07/17) Aspirin (Verified Adverse Reaction, Unknown, bleeding ulcers, 08/07/17) 03/26/17--dr flores inquired about aspirin allergy & reviewd history--pt has had bleeding in past while on anticoagulation, as of 03/26/17--no gi ulcers present & aspirin ok to give Physical Exam Vital Signs Date Time Temp Pulse Resp B/P (MAP) Pulse Ox O2 Delivery O2 Flow Rate FiO2 08/08/17 00:25 68 08/07/17 23:49 74 133/78 95 Room Air 08/07/17 22:10 98 157/84 08/07/17 21:00 80 129/83 92 Room Air 08/07/17 20:14 83 08/07/17 19:17 37.7 87 145/91 91 Room Air Physical Exam GENERAL: Awake, alert, chronically ill-appearing, uncomfortable, in no distress HENT: Normocephalic, atraumatic. Dry mucous membranes. Mild erosion and ttp to anterior upper gingiva without fluctuance. EYES: Normal conjunctiva. Sclera non-icteric. NECK: Supple. No nuchal rigidity. FROM. No JVD. RESPIRATORY: Clear to auscultation. CARDIAC: Regular rate, normal rhythm. Extremities warm and well perfused. Pulses equal. ABDOMEN: Soft, non-distended. Histrionic generalized pain repsonse to light touch but without discrete focal abd ttp. No rebound or guarding. No masses. RECTAL: Deferred. MUSCULOSKELETAL: Diffuse tenderness to light touch throughout the whole body. No discrete point tenderness in the back. +right straight leg raise. LOWER EXTREMITIES: Calves are equal size bilaterally and non-tender. No edema. No discoloration. 5/5 strength and SILT in BLE NEURO: Normal sensorium. No sensory or motor deficits noted. SKIN: No rash or jaundice noted. Medical Decision & Procedures ER Provider Diagnostic Interpretation: Radiology results as stated below per my review and radiologist interpretation: CHEST ONE VIEW PORTABLE CLINICAL HISTORY: Torus of breath COMPARISON STUDY: 08/05/2017 FINDINGS: The heart remains mildly enlarged. There is a left-sided A-Port catheter unchanged in position. There is stable mild interstitial thickening. There is no lobar consolidation. Bibasilar opacities remain stable and are likely atelectatic. There is a thoracic scoliosis. There are no significant pleural effusions.[ IMPRESSION: 1. Stable cardiomegaly and mild interstitial thickening 2. Bibasilar opacities likely atelectatic Electronically signed by: Jhonny Marsh M.D. 08/07/2017 8:41 PM Dictated Date/Time: 08/07/2017 8:40 PM Laboratory Results 08/07/17 20:41 Test 08/07/17 20:41 08/07/17 22:00 08/08/17 00:10 RDW Standard Deviation 45.8 fL (36.4-46.3) RDW Coefficient of Variation 14.3 % (11.5-14.5) White Blood Count 13.24 K/uL (4.8-10.8) Red Blood Count 3.94 M/uL (4.2-5.4) Hemoglobin 12.1 g/dL (12.0-16.0) Hematocrit 34.6 % (37-47) Mean Corpuscular Volume 87.8 fL (80-100) Mean Corpuscular Hemoglobin 30.7 pg (25-34) Mean Corpuscular Hemoglobin Concent 35.0 g/dl (32-36) Platelet Count 365 K/uL (130-400) Mean Platelet Volume 9.5 fL (7.4-10.4) Neutrophils (%) (Auto) 75.2 % Lymphocytes (%) (Auto) 17.5 % Monocytes (%) (Auto) 6.1 % Eosinophils (%) (Auto) 0.5 % Basophils (%) (Auto) 0.2 % Neutrophils # (Auto) 9.96 K/uL (1.4-6.5) Lymphocytes # (Auto) 2.32 K/uL (1.2-3.4) Monocytes # (Auto) 0.81 K/uL (0.11-0.59) Eosinophils # (Auto) 0.07 K/uL (0-0.5) Basophils # (Auto) 0.02 K/uL (0-0.2) Immature Granulocyte % (Auto) 0.5 % Immature Granulocyte # (Auto) 0.06 K/uL (0.00-0.02) Activated Partial Thromboplast Time 35.5 SECONDS (21.0-31.0) Partial Thromboplastin Ratio 1.4 Anion Gap 7.0 mmol/L (3-11) Est Creatinine Clear Calc Drug Dose 96.5 ml/min Estimated GFR () 109.6 Estimated GFR (Non- 94.6 BUN/Creatinine Ratio 11.5 (10-20) Lactic Acid Level 0.6 mmol/L (0.4-2.0) Calcium Level 9.0 mg/dl (8.5-10.1) Magnesium Level 1.8 mg/dl (1.8-2.4) Total Bilirubin 0.6 mg/dl (0.2-1) Direct Bilirubin 0.2 mg/dl (0-0.2) Aspartate Amino Transf (AST/SGOT) 22 U/L (15-37) Alanine Aminotransferase (ALT/SGPT) 21 U/L (12-78) Alkaline Phosphatase 91 U/L (45-117) Pro-B-Type Natriuretic Peptide 442 pg/ml (0-900) Total Protein 7.2 gm/dl (6.4-8.2) Albumin 2.9 gm/dl (3.4-5.0) Lipase 85 U/L (73-393) Urine Color YELLOW Urine Appearance CLEAR (CLEAR) Urine pH 8.5 (4.5-7.5) Urine Specific [place] 1.006 (1.000-1.030) Urine Protein NEG (NEG) Urine Glucose (UA) NEG (NEG) Urine Ketones 1+ (NEG) Urine Occult Blood NEG (NEG) Urine Nitrite NEG (NEG) Urine Bilirubin NEG (NEG) Urine Urobilinogen NEG (NEG) Urine Leukocyte Esterase NEG (NEG) Procalcitonin < 0.05 ng/ml (0-0.5) Laboratory results reviewed by me Medications Administered Medications (Trade) Dose Ordered Sig/Pablo Route Start Time Stop Time Status Last Admin Dose Admin Sodium Chloride 1,000 ml @ 999 mls/hr Q1H1M STAT IV 08/07/17 19:40 08/07/17 20:40 DC 08/07/17 21:04 999 MLS/HR Metoclopramide HCl (Reglan Inj) 10 mg NOW STAT IV 08/07/17 19:40 08/07/17 19:48 DC 08/07/17 21:05 10 MG Oxycodone HCl (Roxicodone Immediate Rel Tab) 10 mg NOW STAT PO 08/07/17 21:49 08/07/17 21:51 DC 08/07/17 22:08 10 MG Acetaminophen (Tylenol Tab) 650 mg NOW STAT PO 08/07/17 23:54 08/07/17 23:55 DC 08/08/17 02:15 650 MG Ketorolac Tromethamine (Toradol Inj) 15 mg NOW STAT IV 08/08/17 01:09 08/08/17 01:16 DC 08/08/17 02:13 15 MG Metronidazole (Flagyl / Nss) 500 mg NOW STAT IV 08/08/17 01:17 08/08/17 01:18 DC 08/08/17 02:12 500 MG ECG Indication: weakness Rate (beats per minute): 81 Rhythm: normal sinus Findings: no acute ischemic change, other (normal intervals) ED Course 1932: The patient was evaluated in room C2B. A complete history and physical exam was performed. 0: Morphine Sulfate 15 mg PO, Reglan Inj 10 mg IV, NSS 1000 ml @ 999 mls/hr IV. 2148: Oxycodone HCl 10 mg PO. 2214: Upon reexamination, the patient was stable. I discussed the test results and treatment plan with her and her family. The rn case management will speak with her about potential rehab placement. 2300: The rn case management has spoken with the patient. She is agreeable to [facility]. 2320: [facility] does not have any available beds. The patient will be evaluated for further management. The rn case management has updated the patient. 2337: I discussed the patient's case with Dr. Kraft, [facility] hospitalist. The patient will be evaluated for further treatment and disposition. Medical Decision I reviewed the patient's past medical history, medications, and the nursing notes as described above. Differential diagnosis: chronic pain syndrome, chronic back pain, lumbar radiculopathy, UTI, pyelonephritis, diverticulitis, gastroenteritis, gastritis, pneumonia, bronchitis, ACS. The patient is a 67-year-old woman with a past medical history of chronic back pain status post spinal fusion, cyclic vomiting who presents to emergency Department with worsening back and abdominal pain after being seen in the ED 2 days prior for similar symptoms with negative evaluation out presents to the ED because of worsening of the symptoms. Patient reports that she has had a recurrence of her vomiting and thus was unable to take her normal oral medications which include 30 mg of extended release oral morphine twice a day. She reports recently being seen by oral surgery for a question of a frontal upper periapical dental abscess being managed conservatively with oral antibiotics patient is on Augmentin twice a day. Otherwise on exam the patient has diffuse pain throughout but has 5 out of 5 strength in the lower extremities. WBC is 13 which is improved from 2 days ago. Labs otherwise unremarkable including lactate wnl. Chest x-ray is unchanged. UA negative for infection. She does appear clinically dry and reported improvement in her pain after IV fluid hydration, Reglan, oxycodone. Of note the patient did have a CT scan of her abdomen and pelvis 2 days ago that showed no acute findings. Moreover given an unidentified chronic and stable foreign body makes MRI not possible. Nonetheless the patient has no red flag symptoms of urinary retention or bowel incontinence. Despite mild improvement given patient's worsening from her already poor functional baseline in the setting of her chronic back pain and fatigue she would benefit from inpatient rehabilitation for continued supportive care and physical optimization. This was discussed with the family and the patient and all were agreeable. Patient was instructed to continue her oral antibiotics and to follow-up with her oral surgeon as planned. CM assisting for placement to [facility]. Unfortunately, no beds available at [facility] at this time and so patient was admitted to medicine for further management. Case was discussed with Dr. Aliyah Hong [facility] movement the patient for further management. Medication Reconcilliation Current Medication List: was personally reviewed by me Blood Pressure Screening Patient's blood pressure: Normal blood pressure Blood pressure disposition: Did not require urgent referral Consults Time Called: 2323 Consulting Physician: Dr. Kraft [facility] Hospitalist Returned Call: 2330 Discussed the patient's case. The patient will be evaluated for further treatment and disposition. Impression Primary Impression: Dehydration Additional Impression: Lumbar radiculopathy Scribe Attestation The scribe's documentation has been prepared under my direction and personally reviewed by me in its entirety. I confirm that the note above accurately reflects all work, treatment, procedures, and medical decision making performed by me. Departure Information Dispostion Being Evaluated By Hospitalist Referrals Charanjit Spann M.D.([facility]) (PCP) Patient Instructions My [facility] Problem Qualifiers
[2017-08-07] MEDS ORDERED: ACETAMINOPHEN 325 MG TAB PO STA (23:54)
[2017-08-08] MEDS ORDERED: ACETAMINOPHEN 325 MG TAB PO PRN
[2017-08-08 00:16] LABS: PARTIAL THROMBOPLASTIN RATIO 1.4
[2017-08-08 00:21] LABS: MAGNESIUM 1.8 mg/dl (1.8-2.4)
[2017-08-08] MEDS ORDERED: KETOROLAC TROMETHAMINE 30 MG/ML VIAL IV STA (01:09)
[2017-08-08] MEDS ORDERED: METRONIDAZOLE / NSS 500 MG in PREMIXED NSS 100 ML IV ONE (01:15)
[2017-08-08] MEDS ORDERED: METRONIDAZOLE 500MG / 100ML NSS IV STA (01:17)
[2017-08-08] MEDS ORDERED: HYDROmorphone INJ 0.5 MG/0.5 ML SYR IV PRN (01:30)
[2017-08-08] MEDS ORDERED: OPTIRAY 320 IV PRN (01:30)
[2017-08-08] MEDS ORDERED: ONDANSETRON INJ 2 MG/ML 2 ML VIAL IV PRN (01:30)
[2017-08-08] MEDS ORDERED: POLYETHYLENE (MIRALAX) 17 GM PACK PO PRN (01:30)
--- NOTE | 2017-08-08 01:57 | DIAGNOSTIC IMAGING REPORT ---
CT SCAN OF THE RIGHT HIP WITH IV CONTRAST CLINICAL HISTORY: Right hip pain. Fever. COMPARISON STUDY: Pelvic CT dated 08/05/2017. TECHNIQUE: CT scan of the right hip is performed from the bony pelvis to the proximal femora. Images reviewed in the axial, sagittal, and coronal planes. IV contrast was administered without complication A dose lowering technique was utilized adhering to the principles of ALARA. CT DOSE: 514.53 mGy.cm FINDINGS: The skeletal structures are osteopenic. No fracture is identified involving the right hip or the visualized right hemipelvis. Advanced sclerotic change is noted in the sacroiliac joints. Spondylosis and postoperative change is partially visualized in the lower lumbar spine. Mild arthritic change and joint space loss is noted in the right hip. Enthesophytes arise in the greater trochanter of the right femur. No significant joint effusion is seen. The soft tissues overlying the right hip are normal as visualized. No fluid collection is seen. The bladder is normal as imaged. Uterine fibroids are noted. No adnexal lesion is seen. There is no right pelvic sidewall or inguinal lymphadenopathy. The right iliac and femoral vessels are patent as imaged. IMPRESSION: 1. No acute bony abnormality is seen involving the right hip. 2. The overlying soft tissues are normal in appearance. 3. Advanced sclerotic change is identified in the sacroiliac joints. Electronically signed by: Ivan Smith M.D. 08/08/2017 1:56 AM Dictated Date/Time: 08/08/2017 1:51 AM
[2017-08-08 02:47] VITALS: BP 135/79; PULSE 83; TEMP 36.8; O2SAT 93
[2017-08-08] MEDS ORDERED: NSS + 20MEQ KCL 1000ML 1,000 ML IV ONE (03:15)
[2017-08-08 03:21] VITALS: BP 135/79; PULSE 83; TEMP 36.8; O2SAT 93; Ht 162.6 cm; Wt 90.1 kg
[2017-08-08] MEDS: LEVOTHYROXINE 75 MCG TAB PO SCH (06:13)
--- NOTE | 2017-08-08 06:16 | HISTORY & PHYSICAL EXAMINATION ---
DATE OF ADMISSION: 08/08/2017 PRIMARY CARE DOCTOR: Charanjit Spann MD. CHIEF COMPLAINT: Right hip pain. HISTORY OF PRESENT ILLNESS: History obtained from patient and records. Medical history significant for recurrent chronic pain, hypertension, history of CAD sp stenting, mood disorder, scoliosis as per records, chronic pain on narcotics. hx Cdif Recent confinement March 2017 for non-ST elevation MD. Patient found to have subtotal proximal LAD stenosis status post PCI. Patient discharged home. Last few days, the patient noted right hip pain w/ radiation to the right lower extremity different from her usual back pain. No recent falls or trauma. No extremity weakness or numbness. No bowel or bladder incontinence. Stools also noted to be loose. No abdominal pain The patient also noted a low grade fever a few days ago. Ongoing course of Augmentin for a sinus infection. Patient was seen at the Emergency Room a few days ago. CAT scan of the abdomen and pelvis showed moderate fecal retention, fibroid uterus, hepatic steatosis, postop changes in the thoracolumbar spine, small left renal calculus. Patient discharged home despite being uncomfortable. Patient returned to the Emergency Room with worsening pain, unable to walk. MEDICAL HISTORY: As above. SURGERIES: She has had back surgery, gynecologic procedures, shoulder surgery, appendectomy and knee surgery. HOME MEDICATIONS: Include Augmentin, Celexa, Plavix, EpiPen, levothyroxine, Zestril, mag oxide, Lopressor, morphine sulfate, multivitamins, MiraLax, Prazosin, Compazine, Protonix, Klor-Con, promethazine, tramadol, trazodone. ALLERGIES: ASPIRIN, LATEX. FAMILY HISTORY: Diabetes, heart disease. PERSONAL SOCIAL HISTORY: Smoker, no chronic intake of alcoholic beverages. 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 REVIEW OF SYSTEMS: As per HPI, all other ROS negative. PHYSICAL EXAMINATION: VITAL SIGNS: Blood pressure was noted to be 130/78, pulse rate 74, RR 18, temperature is 37.6, sats 92% on room air. GENERAL: Uncomfortable obese, no respiratory distress. SKIN: Normal color, warm. HEENT: [place] conjunctivae. No ptosis. Dry buccal mucosa. NECK: Short neck, supple. CHEST: Decreased breath sounds. No anterior chest wall tenderness. CV: Regular rate and rhythm. Palpable lower extremity pulses. ABDOMEN: Some distention, nontender. BACK : Tenderness on the right hip. Positive straight leg raise/cross leg raise test. EXTREMITIES: Minimal LE edema, no tenderness. No gross deformities. NEUROLOGIC: No gross focality, coherent. LABORATORY DATA: Hemoglobin was 12.1, hematocrit 34, white blood cell count 13.64, platelets 365. Sodium 136, potassium 3.5, chloride 102, CO2 27, BUN 7, creatinine 0.5, glucose noted to be 92. Lactic acid was 0.6. UA, ketones. Chest x-ray, atelectasis. Hip CT, no acute bony abnormality, sclerotic changes, sacroiliac joint. ASSESSMENT: 1. Sepsis. Rule out recurrent Clostridium diff Ongoing Augmentin prescription for sinusitis. 2. Right hip pain, unclear etiology. Different from chronic back pain as per patient History of back surgery. Chronic pain on narcotics. 3. Coronary artery disease, post stenting. 4. Hypertension, stable PLAN: GMF CS, stool C. difficile Flagyl for now for presumptive C. diff. in light of sepsis criteria until C. diff ruled out. Discontinue Flagyl if stool C. diff negative. Analgesia Orthopedics consult R hip pain (Dr. Copeland as per patient's request.) DVT prophylaxis, Lovenox subQ. Full code. MTDD
[2017-08-08 06:58] VITALS: BP 156/72; PULSE 89; TEMP 36.5; O2SAT 96
[2017-08-08 07:34] LABS: BASO % 0.3 %; BASO ABS # 0.03 K/uL (0-0.2); COMPLETE YES; EOS % 2.2 %; HEMATOCRIT 34.9 % (37-47); IG% 0.7 %; LYMPH ABS # 1.98 K/uL (1.2-3.4); MEAN CELL VOLUME 88.6 fL (80-100); MEAN CORPUSCULAR HEMOGLOBIN 30.2 pg (25-34); MEAN CORPUSCULAR HGB CONC 34.1 g/dl (32-36); MEAN PLATELET VOLUME 9.7 fL (7.4-10.4); MONO % 8.2 %; NEUT % 66.6 %; PLATELET COUNT 300 K/uL (130-400); RED BLOOD COUNT 3.94 M/uL (4.2-5.4)
[2017-08-08 07:51] LABS: INR 1.1 (0.9-1.1); PROTHROMBIN TIME (PATIENT) 11.3 SECONDS (9.0-12.0)
[2017-08-08] MEDS: PATADAY~ORDER AWAITING ACTION SCH ×2 (08:38→15:32)
[2017-08-08] MEDS: MoRPHine SULFATE CR 15 MG TAB (MS CONTIN) PO SCH ×2 (08:47→21:45)
[2017-08-08] MEDS: BACLOFEN 10 MG TAB PO PRN (08:48)
[2017-08-08] MEDS: AMOXICILLIN/CLAVULANATE TAB 875 MG TAB PO SCH ×2 (08:49→17:08)
[2017-08-08] MEDS: LISINOPRIL 5 MG TAB PO SCH (08:49)
[2017-08-08] MEDS: CLOPIDOGREL BISULFATE 75 MG TAB PO SCH (08:49)
[2017-08-08] MEDS: AMLODIPINE BESYLATE 5 MG TAB PO SCH (08:49)
[2017-08-08] MEDS: PANTOprazole SOD 40 MG TAB PO SCH (08:49)
[2017-08-08] MEDS: MULTIVITAMIN TAB PO SCH (08:49)
[2017-08-08] MEDS: ASPIRIN 81 MG ECTAB PO SCH (08:50)
[2017-08-08] MEDS: CITALOPRAM 20 MG TAB PO SCH (08:50)
[2017-08-08] MEDS: ATORVASTATIN 20 MG TAB PO SCH (08:50)
[2017-08-08] MEDS: METOPROLOL TARTRATE 25 MG TAB PO SCH ×2 (08:50→21:40)
[2017-08-08] MEDS ORDERED: LIDODERM (LIDOCAINE) PATCH 5% TD ONE (11:17)
[2017-08-08] MEDS: TRAMADOL HCL 50 MG TAB PO PRN ×2 (11:29→17:08)
[2017-08-08] MEDS: ENOXAPARIN 40 MG/0.4 ML SYR SQ SCH (11:31)
--- NOTE | 2017-08-08 11:41 | Progress Note ---
Medicine Progress Note Date & Time of Visit: Aug 08, 2017 at 11:34. Subjective seen resting in bed, mild distress due to pain states pain is mostly from lumbar spine radiating to the right hip denies paresthesias on the right leg denies diarrhea, abdominal pain, tooth pain, cough no other symptoms Objective Last 8 Hrs Date Time Temp Pulse Resp B/P (MAP) Pulse Ox O2 Delivery O2 Flow Rate FiO2 08/08/17 09:00 Room Air 08/08/17 06:58 36.5 89 20 156/72 (100) 96 Room Air Physical Exam: General- oriented x 3, not in distress, speaks in sentences with no effort Eyes- EOMI, anicteric ENT- oropharynx clear Neck- supple, no JVD Lungs- clear to auscultation and percussion Heart- regular rhythm; no murmur, no gallop, no rub appreciated Abdomen- normal bowel sounds, soft, nontender, no masses or hepatosplenomegaly Back- no swelling/erythema/warmth, (+) moderate tenderness Extremities- no pretibial edema, no calf tenderness; peripheral pulses intact poor hip flexion of the right leg due to pain Neuro- alert, oriented x 3;no gross focal deficits Skin- warm & dry Laboratory Results: Last 24 Hours Test 08/07/17 20:41 08/07/17 22:00 08/08/17 00:10 08/08/17 07:07 White Blood Count 13.24 K/uL 9.00 K/uL Red Blood Count 3.94 M/uL 3.94 M/uL Hemoglobin 12.1 g/dL 11.9 g/dL Hematocrit 34.6 % 34.9 % Mean Corpuscular Volume 87.8 fL 88.6 fL Mean Corpuscular Hemoglobin 30.7 pg 30.2 pg Mean Corpuscular Hemoglobin Concent 35.0 g/dl 34.1 g/dl Platelet Count 365 K/uL 300 K/uL Mean Platelet Volume 9.5 fL 9.7 fL Neutrophils (%) (Auto) 75.2 % 66.6 % Lymphocytes (%) (Auto) 17.5 % 22.0 % Monocytes (%) (Auto) 6.1 % 8.2 % Eosinophils (%) (Auto) 0.5 % 2.2 % Basophils (%) (Auto) 0.2 % 0.3 % Neutrophils # (Auto) 9.96 K/uL 5.99 K/uL Lymphocytes # (Auto) 2.32 K/uL 1.98 K/uL Monocytes # (Auto) 0.81 K/uL 0.74 K/uL Eosinophils # (Auto) 0.07 K/uL 0.20 K/uL Basophils # (Auto) 0.02 K/uL 0.03 K/uL RDW Standard Deviation 45.8 fL 47.3 fL RDW Coefficient of Variation 14.3 % 14.5 % Immature Granulocyte % (Auto) 0.5 % 0.7 % Immature Granulocyte # (Auto) 0.06 K/uL 0.06 K/uL Activated Partial Thromboplast Time 35.5 SECONDS Partial Thromboplastin Ratio 1.4 Sodium Level 136 mmol/L Potassium Level 3.5 mmol/L Chloride Level 102 mmol/L Carbon Dioxide Level 27 mmol/L Anion Gap 7.0 mmol/L Blood Urea Nitrogen 7 mg/dl Creatinine 0.57 mg/dl Est Creatinine Clear Calc Drug Dose 96.5 ml/min Estimated GFR () 109.6 Estimated GFR (Non- 94.6 BUN/Creatinine Ratio 11.5 Random Glucose 92 mg/dl Lactic Acid Level 0.6 mmol/L Calcium Level 9.0 mg/dl Magnesium Level 1.8 mg/dl Total Bilirubin 0.6 mg/dl Direct Bilirubin 0.2 mg/dl Aspartate Amino Transf (AST/SGOT) 22 U/L Alanine Aminotransferase (ALT/SGPT) 21 U/L Alkaline Phosphatase 91 U/L Pro-B-Type Natriuretic Peptide 442 pg/ml Total Protein 7.2 gm/dl Albumin 2.9 gm/dl Lipase 85 U/L Urine Color YELLOW Urine Appearance CLEAR Urine pH 8.5 Urine Specific [place] 1.006 Urine Protein NEG Urine Glucose (UA) NEG Urine Ketones 1+ Urine Occult Blood NEG Urine Nitrite NEG Urine Bilirubin NEG Urine Urobilinogen NEG Urine Leukocyte Esterase NEG Procalcitonin < 0.05 ng/ml Prothrombin Time 11.3 SECONDS Prothromb Time International Ratio 1.1 Date/Time Source Procedure Growth Status 08/08/17 00:10 Blood Blood Culture Pending Received 08/08/17 00:05 Blood Blood Culture Pending Received Assessment & Plan 67 year old female with history of Chronic Pain, CAD s/p Stent, HTN, Mood disorder presenting with low back pain radiating to the right hip. LOW BACK PAIN HISTORY OF LUMBAR SPINE SURGERIES - MRI lumbar spine cannot be performed as patient has intrathecal device seen on Ct abd/pelvis 2 days ago Skeletal structures: The skeletal structures are osteopenic. No lytic or blastic bony lesions are identified. There are postoperative changes from extensive laminectomy throughout the entirety of the visualized thoracolumbar spine. There is thoracolumbar scoliosis. Advanced sclerotic changes are seen involving the sacroiliac joints. A bone graft donor site is noted in the left ilium. Postoperative or posttraumatic changes are again seen in the left posterior 8th and 10th ribs. An intrathecal lead catheter fragment versus cerclage wire is present at the level of L3. - add Lidoderm patch, Warm compress continue usual Morphine, PRN Tramadol, Baclofen - titrate analgesics accordingly - will consult Ortho Spine RIGHT HIP PAIN - may be radiculopathy - CT hip: mild arthritis, osteophytes - pain management as noted above Dr. Copeland consulted - monitor DIARRHEA - resolving - check for C diff - on empiric Flagyl Dental Infection - complete Augmentin History of CAD s/p Stent - continue ASA, Plavix, Metoprolol, Lisinopril History of Chronic Pain - pain management as noted above Mood Disorder - continue Trazodone, Citalopram DVT Proph lovenox Disposition pending lives at home PT/OT ordered Current Inpatient Medications: Current Inpatient Medications Medications (Trade) Dose Ordered Sig/Pablo Route Start Time Stop Time Status Last Admin Dose Admin Acetaminophen (Tylenol Tab) 650 mg Q6H PRN PO 08/08/17 00:00 09/07/17 00:00 Ioversol (Optiray 320) 100 ml UD PRN IV 08/08/17 01:30 08/12/17 01:29 Enoxaparin Sodium (Lovenox Inj) 40 mg Q24H SQ 08/08/17 10:00 09/07/17 09:59 Alprazolam (Xanax Tab) 1 mg BID PRN PO 08/08/17 01:30 09/07/17 01:29 Amlodipine Besylate (Norvasc Tab) 5 mg DAILY PO 08/08/17 09:00 09/07/17 08:59 08/08/17 08:49 5 MG Aspirin (Ecotrin Tab) 81 mg DAILY PO 08/08/17 09:00 09/07/17 08:59 08/08/17 08:50 81 MG Atorvastatin Calcium (Lipitor Tab) 40 mg DAILY PO 08/08/17 09:00 09/07/17 08:59 08/08/17 08:50 40 MG Baclofen (Lioresal Tab) 10 mg TID PRN PO 08/08/17 01:30 09/07/17 01:29 08/08/17 08:48 10 MG Citalopram Hydrobromide (celeXA TAB) 10 mg DAILY PO 08/08/17 09:00 09/07/17 08:59 08/08/17 08:50 10 MG Clopidogrel Bisulfate (plAVix TAB) 75 mg DAILY PO 08/08/17 09:00 09/07/17 08:59 08/08/17 08:49 75 MG Levothyroxine Sodium (Synthroid Tab) 75 mcg DAILYBB PO 08/08/17 06:30 09/07/17 06:29 Lisinopril (Zestril Tab) 5 mg DAILY PO 08/08/17 09:00 09/07/17 08:59 08/08/17 08:49 5 MG Metoprolol Tartrate (Lopressor Tab) 25 mg BID PO 08/08/17 09:00 09/07/17 08:59 08/08/17 08:50 25 MG Multivitamins (Multivitamin Tab) 1 tab DAILY PO 08/08/17 09:00 09/07/17 08:59 08/08/17 08:49 1 TAB Pantoprazole Sodium (Protonix Tab) 40 mg DAILY PO 08/08/17 09:00 09/07/17 08:59 08/08/17 08:49 40 MG Tramadol HCl (Ultram Tab) 50 mg Q4H PRN PO 08/08/17 01:30 09/07/17 01:29 Trazodone HCl (Desyrel Tab) 100 mg HS PO 08/08/17 21:00 09/07/17 20:59 Morphine Sulfate (Oramorph Sr Tab) 30 mg Q12 PO 08/08/17 09:00 09/07/17 08:59 08/08/17 08:47 30 MG Miscellaneous Information (Order Awaiting Action) 1 ea QS N/A 08/08/17 08:00 09/07/17 07:59 Prazosin HCl (Prazosin) 1 mg HS PO 08/08/17 21:00 09/07/17 20:59 Ondansetron HCl (Zofran Inj) 4 mg Q6H PRN IV 08/08/17 01:30 09/07/17 01:29 Hydromorphone HCl (Dilaudid Inj) 0.5 mg Q6H PRN IV 08/08/17 01:30 08/22/17 01:29 Potassium Chloride/Sodium Chloride 1,000 ml @ 75 mls/hr [id number] ONCE IV 08/08/17 03:15 08/08/17 16:34 08/08/17 03:44 75 MLS/HR Amoxicillin/ Clavulanate Potassium (Augmentin Tab) 875 mg BIDM PO 08/08/17 08:00 08/10/17 07:59 08/08/17 08:49 875 MG Polyethylene (Miralax Powder Packet) 17 gm DAILY PRN PO 08/08/17 01:30 09/07/17 01:29 Metronidazole (Flagyl Tab) 500 mg TID PO 08/08/17 12:00 08/18/17 11:59
[2017-08-08] MEDS: METRONIDAZOLE 500 MG TAB PO SCH ×2 (12:09→22:22)
--- NOTE | 2017-08-08 13:54 | Orthopedic Consultation ---
Orthopedic Consultation Date of Consultation: Aug 08, 2017. Attending Physician: Kyler Pineda MD Reason for Consultation: Right-sided leg pain History of Present Illness 67-year-old female who has a past medical history of a previous lumbar fusion and need for revision secondary to broken hardware last surgery being about 10 years ago with the first fusion being about [address] Catherine. She's had difficulty off and on with her hip for a number of years. She's never had experience any with pain like this. She states that she has had sciatica in the past and this is worse. She locates her pain posteriorly and states the pain radiates down the leg into the foot. She has been unable to walk secondary to this pain for the last 2 or 3 days. It started about 4 days ago. No acute trauma. No recent illnesses. Past Medical/Surgical History Medical Problems: (1) Abdominal pain Status: Acute (2) Abnormal EKG Status: Acute (3) Avulsion of skin of finger Status: Acute (4) Back strain Status: Acute (5) Chest pain Status: Acute (6) Chest pain Status: Acute (7) Closed fracture of phalanx of right fifth toe Status: Acute (8) Dehydration Status: Acute (9) Diffuse abdominal pain Status: Acute (10) Elevated troponin Status: Acute (11) Fever Status: Acute (12) Hypokalemia Status: Acute (13) Hypomagnesemia Status: Acute (14) Hypoxia Status: Acute (15) Lumbar radiculopathy Status: Acute (16) Neck pain on right side Status: Acute Family History Cancer Cardiac disorder BROTHER Diabetes mellitus FH: CHF (congestive heart failure) Heart disease Hypertension FATHER MOTHER Lung disease Social History Smoking Status: Never Smoker Drug Use: none Marital Status: single Housing Status: lives alone Occupation Status: retired Allergies Coded Allergies: Latex (Verified Allergy, Intermediate, RASH, 08/07/17) Nickel (Verified Allergy, Intermediate, SEVERE DERMATITIS, 08/07/17) Aspirin (Verified Adverse Reaction, Unknown, bleeding ulcers, 08/07/17) 03/26/17--dr flores inquired about aspirin allergy & reviewd history--pt has had bleeding in past while on anticoagulation, as of 03/26/17--no gi ulcers present & aspirin ok to give Home Medications Scheduled Amlodipine Besylate (Amlodipine Besylate), 5 MG PO DAILY Aspirin (Aspirin Ec), 81 MG PO DAILY Atorvastatin (Lipitor), 40 MG PO DAILY Calcium Carbonate-Vitamin D W/ (Caltrate 600 Plus), 1 TAB PO BID Citalopram Hydrobromide (Celexa), 10 MG PO DAILY Clopidogrel (Plavix), 75 MG PO DAILY Levothyroxine Sodium (Levothyroxine Sodium), 1 TAB PO DAILY Lisinopril (Zestril), 5 MG PO DAILY Magnesium Oxide (Mg Supplement (Magnesium Oxide), 400 MG PO BID Metoprolol Tartrate (Lopressor) (Lopressor), 1 TAB PO BID Morphine Sulfate (Morphine Sulfate ER), 1 TAB PO Q12 Multivitamin (Multivitamin), 1 TAB PO DAILY Olopatadine Hydrochloride (Pataday), 1 DROPS OPB DAILY Pantoprazole (Protonix), 40 MG PO DAILY Polyethylene Glycol 3350 (Miralax), 17 GM PO DAILY Potassium Ext Rel (Klor-Con), 20 MEQ PO BID Prazosin Hcl (Minipress), 1 MG PO HS Trazodone HCl (Trazodone HCl), 100 MG PO HS Scheduled PRN Alprazolam (Xanax), 1 MG PO BID PRN for Anxiety/Agitation Baclofen (Baclofen), 10 MG PO TID PRN for Muscle Spasm Epinephrine (Epipen 2-Lee), 0.3 MG IM UD PRN for ALLERGIC REACTION Prochlorperazine Maleate (Compazine), 10 MG PO for Nausea Promethazine HCl (Promethazine HCl), 25 MG PO BID PRN for Nausea Tramadol (Ultram), 50 MG PO Q4H PRN for Pain Current Inpatient Medications Current Inpatient Medications Medications (Trade) Dose Ordered Sig/Pablo Route Start Time Stop Time Status Last Admin Dose Admin Acetaminophen (Tylenol Tab) 650 mg Q6H PRN PO 08/08/17 00:00 09/07/17 00:00 Ioversol (Optiray 320) 100 ml UD PRN IV 08/08/17 01:30 08/12/17 01:29 Enoxaparin Sodium (Lovenox Inj) 40 mg Q24H SQ 08/08/17 10:00 09/07/17 09:59 08/08/17 11:31 40 MG Alprazolam (Xanax Tab) 1 mg BID PRN PO 08/08/17 01:30 09/07/17 01:29 Amlodipine Besylate (Norvasc Tab) 5 mg DAILY PO 08/08/17 09:00 09/07/17 08:59 08/08/17 08:49 5 MG Aspirin (Ecotrin Tab) 81 mg DAILY PO 08/08/17 09:00 09/07/17 08:59 08/08/17 08:50 81 MG Atorvastatin Calcium (Lipitor Tab) 40 mg DAILY PO 08/08/17 09:00 09/07/17 08:59 08/08/17 08:50 40 MG Baclofen (Lioresal Tab) 10 mg TID PRN PO 08/08/17 01:30 09/07/17 01:29 08/08/17 08:48 10 MG Citalopram Hydrobromide (celeXA TAB) 10 mg DAILY PO 08/08/17 09:00 09/07/17 08:59 08/08/17 08:50 10 MG Clopidogrel Bisulfate (plAVix TAB) 75 mg DAILY PO 08/08/17 09:00 09/07/17 08:59 08/08/17 08:49 75 MG Levothyroxine Sodium (Synthroid Tab) 75 mcg DAILYBB PO 08/08/17 06:30 09/07/17 06:29 Lisinopril (Zestril Tab) 5 mg DAILY PO 08/08/17 09:00 09/07/17 08:59 08/08/17 08:49 5 MG Metoprolol Tartrate (Lopressor Tab) 25 mg BID PO 08/08/17 09:00 09/07/17 08:59 08/08/17 08:50 25 MG Multivitamins (Multivitamin Tab) 1 tab DAILY PO 08/08/17 09:00 09/07/17 08:59 08/08/17 08:49 1 TAB Pantoprazole Sodium (Protonix Tab) 40 mg DAILY PO 08/08/17 09:00 09/07/17 08:59 08/08/17 08:49 40 MG Tramadol HCl (Ultram Tab) 50 mg Q4H PRN PO 08/08/17 01:30 09/07/17 01:29 Trazodone HCl (Desyrel Tab) 100 mg HS PO 08/08/17 21:00 09/07/17 20:59 Morphine Sulfate (Oramorph Sr Tab) 30 mg Q12 PO 08/08/17 09:00 09/07/17 08:59 08/08/17 08:47 30 MG Miscellaneous Information (Order Awaiting Action) 1 ea QS N/A 08/08/17 08:00 09/07/17 07:59 Prazosin HCl (Prazosin) 1 mg HS PO 08/08/17 21:00 09/07/17 20:59 Ondansetron HCl (Zofran Inj) 4 mg Q6H PRN IV 08/08/17 01:30 09/07/17 01:29 Hydromorphone HCl (Dilaudid Inj) 0.5 mg Q6H PRN IV 08/08/17 01:30 08/22/17 01:29 Potassium Chloride/Sodium Chloride 1,000 ml @ 75 mls/hr [id number] ONCE IV 08/08/17 03:15 08/08/17 16:34 08/08/17 03:44 75 MLS/HR Amoxicillin/ Clavulanate Potassium (Augmentin Tab) 875 mg BIDM PO 08/08/17 08:00 08/10/17 07:59 08/08/17 08:49 875 MG Polyethylene (Miralax Powder Packet) 17 gm DAILY PRN PO 08/08/17 01:30 09/07/17 01:29 08/08/17 11:31 17 GM Metronidazole (Flagyl Tab) 500 mg TID PO 08/08/17 12:00 08/18/17 11:59 08/08/17 12:09 500 MG Lidocaine (Lidoderm Patch 5%) 1 patch QAM TD 08/09/17 09:00 09/08/17 08:59 Miscellaneous (Remove Lidoderm Patch) 1 ea DAILY@21 N/A 08/08/17 21:00 09/07/17 20:59 Physical Exam Date Time Temp Pulse Resp B/P (MAP) Pulse Ox O2 Delivery O2 Flow Rate FiO2 08/08/17 09:00 Room Air 08/08/17 06:58 36.5 89 20 156/72 (100) 96 Room Air 08/08/17 03:21 36.8 83 18 135/79 93 Room Air 08/08/17 02:47 36.8 83 18 135/79 (97) 93 Room Air 08/08/17 01:52 87 135/82 91 Room Air 08/08/17 00:25 68 08/07/17 23:49 74 133/78 95 Room Air 08/07/17 22:10 98 157/84 08/07/17 21:00 80 129/83 92 Room Air 08/07/17 20:14 83 08/07/17 19:17 37.7 87 145/91 91 Room Air Right lower extremity: Right touch sensation and motor function distally is intact she is able to use FHL, EHL, dorsiflex and plantar flex the foot without deficit. She has no pain with rotation of the leg. She denies any groin pain. She has pain with lifting of the leg that she locates posteriorly and radiates down the leg. Mild tenderness to palpation of the greater trochanter. No tenderness to palpation anteriorly. She is exquisitely tender posteriorly along the region of the SI joint as well as along the lumbar spine. There is a longitudinal incision going along the entirety of the spine that is well-healed. General Appearance: + mild distress Head: normocephalic Eyes: normal inspection Neck: supple Cardiovascular: regular rate, rhythm Laboratory Results Last 24 Hours Test 08/07/17 20:41 08/07/17 22:00 08/08/17 00:10 08/08/17 07:07 White Blood Count 13.24 K/uL 9.00 K/uL Red Blood Count 3.94 M/uL 3.94 M/uL Hemoglobin 12.1 g/dL 11.9 g/dL Hematocrit 34.6 % 34.9 % Mean Corpuscular Volume 87.8 fL 88.6 fL Mean Corpuscular Hemoglobin 30.7 pg 30.2 pg Mean Corpuscular Hemoglobin Concent 35.0 g/dl 34.1 g/dl Platelet Count 365 K/uL 300 K/uL Mean Platelet Volume 9.5 fL 9.7 fL Neutrophils (%) (Auto) 75.2 % 66.6 % Lymphocytes (%) (Auto) 17.5 % 22.0 % Monocytes (%) (Auto) 6.1 % 8.2 % Eosinophils (%) (Auto) 0.5 % 2.2 % Basophils (%) (Auto) 0.2 % 0.3 % Neutrophils # (Auto) 9.96 K/uL 5.99 K/uL Lymphocytes # (Auto) 2.32 K/uL 1.98 K/uL Monocytes # (Auto) 0.81 K/uL 0.74 K/uL Eosinophils # (Auto) 0.07 K/uL 0.20 K/uL Basophils # (Auto) 0.02 K/uL 0.03 K/uL RDW Standard Deviation 45.8 fL 47.3 fL RDW Coefficient of Variation 14.3 % 14.5 % Immature Granulocyte % (Auto) 0.5 % 0.7 % Immature Granulocyte # (Auto) 0.06 K/uL 0.06 K/uL Activated Partial Thromboplast Time 35.5 SECONDS Partial Thromboplastin Ratio 1.4 Sodium Level 136 mmol/L Potassium Level 3.5 mmol/L Chloride Level 102 mmol/L Carbon Dioxide Level 27 mmol/L Anion Gap 7.0 mmol/L Blood Urea Nitrogen 7 mg/dl Creatinine 0.57 mg/dl Est Creatinine Clear Calc Drug Dose 96.5 ml/min Estimated GFR () 109.6 Estimated GFR (Non- 94.6 BUN/Creatinine Ratio 11.5 Random Glucose 92 mg/dl Lactic Acid Level 0.6 mmol/L Calcium Level 9.0 mg/dl Magnesium Level 1.8 mg/dl Total Bilirubin 0.6 mg/dl Direct Bilirubin 0.2 mg/dl Aspartate Amino Transf (AST/SGOT) 22 U/L Alanine Aminotransferase (ALT/SGPT) 21 U/L Alkaline Phosphatase 91 U/L Pro-B-Type Natriuretic Peptide 442 pg/ml Total Protein 7.2 gm/dl Albumin 2.9 gm/dl Lipase 85 U/L Urine Color YELLOW Urine Appearance CLEAR Urine pH 8.5 Urine Specific [place] 1.006 Urine Protein NEG Urine Glucose (UA) NEG Urine Ketones 1+ Urine Occult Blood NEG Urine Nitrite NEG Urine Bilirubin NEG Urine Urobilinogen NEG Urine Leukocyte Esterase NEG Procalcitonin < 0.05 ng/ml Prothrombin Time 11.3 SECONDS Prothromb Time International Ratio 1.1 Assessment & Plan Likely radicular leg pain from the lumbar spine CT scan of the pelvis is normal. She has some degenerative change posts in the femoral acetabular joint as well as over the greater trochanter. She does have some tenderness over the greater trochanter but this isn't really correlating with the symptoms she is experiencing. My feeling is that her pain is coming from the lumbar spine. We will order some lumbar x-rays. There is question as to a wider seen on her CT the pelvis. She doesn't have a history of placement of a lumbar stimulator. Possible this is an old hardware. We will check lumbar spine x-rays have spoken to Dr. Lin about the patient. His lumbar x- rays demonstrate that there is no stimulator and this is old hardware then he would like an MRI of the lumbar spine.
[2017-08-08 15:04] VITALS: BP 134/74; PULSE 68; TEMP 36.6; O2SAT 94
[2017-08-08] MEDS: ALPRAZOLAM 0.5 MG TAB PO PRN (19:09)
[2017-08-08] MEDS ORDERED: PRAZOSIN HCL 1 MG CAP PO SCH (21:00)
[2017-08-08] MEDS: TRAZODONE HCL 100 MG TAB PO SCH (21:38)
[2017-08-08 22:55] VITALS: BP 132/79; PULSE 76; TEMP 36.8; O2SAT 91
[2017-08-09] MEDS: TRAMADOL HCL 50 MG TAB PO PRN ×3 (02:50→15:45)
[2017-08-09] MEDS: LEVOTHYROXINE 75 MCG TAB PO SCH (05:39)
[2017-08-09 06:43] LABS: BUN/CREATININE RATIO 13.7 (10-20); CALCIUM 7.9 mg/dl (8.5-10.1); CREATININE 0.64 mg/dl (0.60-1.20); POTASSIUM 3.7 mmol/L (3.5-5.1)
[2017-08-09 07:12] VITALS: BP 171/81; PULSE 74; TEMP 36.7; O2SAT 92
[2017-08-09] MEDS: CLOPIDOGREL BISULFATE 75 MG TAB PO SCH (08:18)
[2017-08-09] MEDS: ENOXAPARIN 40 MG/0.4 ML SYR SQ SCH (08:18)
[2017-08-09] MEDS: LIDODERM (LIDOCAINE) PATCH 5% TD SCH (08:18)
[2017-08-09] MEDS: BACLOFEN 10 MG TAB PO PRN ×2 (08:18→15:46)
[2017-08-09] MEDS: PANTOprazole SOD 40 MG TAB PO SCH (08:19)
[2017-08-09] MEDS: ASPIRIN 81 MG ECTAB PO SCH (08:19)
[2017-08-09] MEDS: MULTIVITAMIN TAB PO SCH (08:19)
[2017-08-09] MEDS: AMLODIPINE BESYLATE 5 MG TAB PO SCH (08:19)
[2017-08-09] MEDS: CITALOPRAM 20 MG TAB PO SCH (08:19)
[2017-08-09] MEDS: LISINOPRIL 5 MG TAB PO SCH (08:19)
[2017-08-09] MEDS: ATORVASTATIN 20 MG TAB PO SCH (08:19)
[2017-08-09] MEDS: AMOXICILLIN/CLAVULANATE TAB 875 MG TAB PO SCH ×2 (08:20→17:21)
[2017-08-09] MEDS: METOPROLOL TARTRATE 25 MG TAB PO SCH ×2 (08:20→20:42)
[2017-08-09] MEDS: METRONIDAZOLE 500 MG TAB PO SCH ×2 (08:24→15:45)
[2017-08-09] MEDS: MoRPHine SULFATE CR 15 MG TAB (MS CONTIN) PO SCH ×2 (08:25→20:40)
[2017-08-09] MEDS: PATADAY~ORDER AWAITING ACTION SCH ×3 (08:41→15:57)
--- NOTE | 2017-08-09 10:29 | Orthopedic Consultation ---
Orthopedic Consultation Date of Consultation: Aug 09, 2017. Attending Physician: Kyler Pineda MD Reason for Consultation: Back pain History of Present Illness Very pleasant 67-year-old female massive fairly extensive history of spinal surgery in the past. She underwent thoracolumbar decompression depression fusion for scoliosis partially 20 years ago. She required significant revision procedure partially 10 years ago. Her surgery was performed by Dr. Catherine at [facility]. I recently she had onset of significant right buttock SI joint pain. She denies any trauma fall or event. Symptoms are limiting her ability to ambulate. She usually uses a walker to ambulate about her home. She states she normally can walk short distances without difficulty. Her current symptoms limit her ability to stand and ambulate. The pain radiates in the buttock posterior thigh below the knee. Left lower extremities asymptomatic. There are discussion this morning she is in bed. She's not having any significant pain and leg. Denies any fevers chills. She denies any change in bowel bladder function. Past Medical/Surgical History Medical Problems: (1) Abdominal pain Status: Acute (2) Abnormal EKG Status: Acute (3) Avulsion of skin of finger Status: Acute (4) Back strain Status: Acute (5) Chest pain Status: Acute (6) Chest pain Status: Acute (7) Closed fracture of phalanx of right fifth toe Status: Acute (8) Dehydration Status: Acute (9) Diffuse abdominal pain Status: Acute (10) Elevated troponin Status: Acute (11) Fever Status: Acute (12) Hypokalemia Status: Acute (13) Hypomagnesemia Status: Acute (14) Hypoxia Status: Acute (15) Lumbar radiculopathy Status: Acute (16) Neck pain on right side Status: Acute Family History Cancer Cardiac disorder BROTHER Diabetes mellitus FH: CHF (congestive heart failure) Heart disease Hypertension FATHER MOTHER Lung disease Social History Smoking Status: Never Smoker Drug Use: none Marital Status: single Housing Status: lives alone Occupation Status: retired Allergies Coded Allergies: Latex (Verified Allergy, Intermediate, RASH, 08/07/17) Nickel (Verified Allergy, Intermediate, SEVERE DERMATITIS, 08/07/17) Aspirin (Verified Adverse Reaction, Unknown, bleeding ulcers, 08/07/17) 03/26/17--dr flores inquired about aspirin allergy & reviewd history--pt has had bleeding in past while on anticoagulation, as of 03/26/17--no gi ulcers present & aspirin ok to give Home Medications Scheduled Amlodipine Besylate (Amlodipine Besylate), 5 MG PO DAILY Aspirin (Aspirin Ec), 81 MG PO DAILY Atorvastatin (Lipitor), 40 MG PO DAILY Calcium Carbonate-Vitamin D W/ (Caltrate 600 Plus), 1 TAB PO BID Citalopram Hydrobromide (Celexa), 10 MG PO DAILY Clopidogrel (Plavix), 75 MG PO DAILY Levothyroxine Sodium (Levothyroxine Sodium), 1 TAB PO DAILY Lisinopril (Zestril), 5 MG PO DAILY Magnesium Oxide (Mg Supplement (Magnesium Oxide), 400 MG PO BID Metoprolol Tartrate (Lopressor) (Lopressor), 1 TAB PO BID Morphine Sulfate (Morphine Sulfate ER), 1 TAB PO Q12 Multivitamin (Multivitamin), 1 TAB PO DAILY Olopatadine Hydrochloride (Pataday), 1 DROPS OPB DAILY Pantoprazole (Protonix), 40 MG PO DAILY Polyethylene Glycol 3350 (Miralax), 17 GM PO DAILY Potassium Ext Rel (Klor-Con), 20 MEQ PO BID Prazosin Hcl (Minipress), 1 MG PO HS Trazodone HCl (Trazodone HCl), 100 MG PO HS Scheduled PRN Alprazolam (Xanax), 1 MG PO BID PRN for Anxiety/Agitation Baclofen (Baclofen), 10 MG PO TID PRN for Muscle Spasm Epinephrine (Epipen 2-Lee), 0.3 MG IM UD PRN for ALLERGIC REACTION Prochlorperazine Maleate (Compazine), 10 MG PO for Nausea Promethazine HCl (Promethazine HCl), 25 MG PO BID PRN for Nausea Tramadol (Ultram), 50 MG PO Q4H PRN for Pain Current Inpatient Medications Current Inpatient Medications Medications (Trade) Dose Ordered Sig/Pablo Route Start Time Stop Time Status Last Admin Dose Admin Acetaminophen (Tylenol Tab) 650 mg Q6H PRN PO 08/08/17 00:00 09/07/17 00:00 Ioversol (Optiray 320) 100 ml UD PRN IV 08/08/17 01:30 08/12/17 01:29 Enoxaparin Sodium (Lovenox Inj) 40 mg Q24H SQ 08/08/17 10:00 09/07/17 09:59 08/09/17 08:18 40 MG Alprazolam (Xanax Tab) 1 mg BID PRN PO 08/08/17 01:30 09/07/17 01:29 08/08/17 19:09 1 MG Amlodipine Besylate (Norvasc Tab) 5 mg DAILY PO 08/08/17 09:00 09/07/17 08:59 08/09/17 08:19 5 MG Aspirin (Ecotrin Tab) 81 mg DAILY PO 08/08/17 09:00 09/07/17 08:59 08/09/17 08:19 81 MG Atorvastatin Calcium (Lipitor Tab) 40 mg DAILY PO 08/08/17 09:00 09/07/17 08:59 08/09/17 08:19 40 MG Baclofen (Lioresal Tab) 10 mg TID PRN PO 08/08/17 01:30 09/07/17 01:29 08/09/17 08:18 10 MG Citalopram Hydrobromide (celeXA TAB) 10 mg DAILY PO 08/08/17 09:00 09/07/17 08:59 08/09/17 08:19 10 MG Clopidogrel Bisulfate (plAVix TAB) 75 mg DAILY PO 08/08/17 09:00 09/07/17 08:59 08/09/17 08:18 75 MG Levothyroxine Sodium (Synthroid Tab) 75 mcg DAILYBB PO 08/08/17 06:30 09/07/17 06:29 08/09/17 05:39 75 MCG Lisinopril (Zestril Tab) 5 mg DAILY PO 08/08/17 09:00 09/07/17 08:59 08/09/17 08:19 5 MG Metoprolol Tartrate (Lopressor Tab) 25 mg BID PO 08/08/17 09:00 09/07/17 08:59 08/09/17 08:20 25 MG Multivitamins (Multivitamin Tab) 1 tab DAILY PO 08/08/17 09:00 09/07/17 08:59 08/09/17 08:19 1 TAB Pantoprazole Sodium (Protonix Tab) 40 mg DAILY PO 08/08/17 09:00 09/07/17 08:59 08/09/17 08:19 40 MG Tramadol HCl (Ultram Tab) 50 mg Q4H PRN PO 08/08/17 01:30 09/07/17 01:29 08/09/17 02:50 50 MG Trazodone HCl (Desyrel Tab) 100 mg HS PO 08/08/17 21:00 09/07/17 20:59 08/08/17 21:38 100 MG Morphine Sulfate (Oramorph Sr Tab) 30 mg Q12 PO 08/08/17 09:00 09/07/17 08:59 08/09/17 08:25 30 MG Miscellaneous Information (Order Awaiting Action) 1 ea QS N/A 08/08/17 08:00 09/07/17 07:59 Ondansetron HCl (Zofran Inj) 4 mg Q6H PRN IV 08/08/17 01:30 09/07/17 01:29 Hydromorphone HCl (Dilaudid Inj) 0.5 mg Q6H PRN IV 08/08/17 01:30 08/22/17 01:29 Amoxicillin/ Clavulanate Potassium (Augmentin Tab) 875 mg BIDM PO 08/08/17 08:00 08/10/17 07:59 08/09/17 08:20 875 MG Polyethylene (Miralax Powder Packet) 17 gm DAILY PRN PO 08/08/17 01:30 09/07/17 01:29 08/08/17 11:31 17 GM Metronidazole (Flagyl Tab) 500 mg TID PO 08/08/17 12:00 08/18/17 11:59 08/09/17 08:24 500 MG Lidocaine (Lidoderm Patch 5%) 1 patch QAM TD 08/09/17 09:00 09/08/17 08:59 08/09/17 08:18 1 PATCH Miscellaneous (Remove Lidoderm Patch) 1 ea DAILY@21 N/A 08/08/17 21:00 09/07/17 20:59 08/08/17 21:00 1 EA Heparin Sodium (Porcine) (Heparin 100 Unit/ml 5ml Flush) 5 ml PRN PRN FLUSH 08/08/17 18:00 09/07/17 17:59 08/09/17 05:28 5 ML Prazosin HCl (Prazosin) 1 mg HS PO 08/09/17 21:00 09/07/17 20:59 Physical Exam Date Time Temp Pulse Resp B/P (MAP) Pulse Ox O2 Delivery O2 Flow Rate FiO2 08/09/17 08:00 Room Air 08/09/17 07:12 36.7 74 18 171/81 (111) 92 Room Air 08/09/17 00:05 Room Air 08/08/17 22:55 36.8 76 22 132/79 (96) 91 Room Air 08/08/17 20:05 Room Air 08/08/17 16:00 Room Air 08/08/17 15:04 36.6 68 18 134/74 (94) 94 Room Air Patient is alert and oriented appropriately to questioning. She exhibits full sensation to light touch and cold bilateral x-rays. She has increased discomfort with log roll however does not in the groin is more in the posterior lumbosacral junction. She has no gross tension signs. She exhibits reasonable strength to plantar flexion dorsiflexion quadriceps bilaterally. I'm able to reproduce some discomfort with palpation the right SI joint. She is obvious the uncomfortable moving about the bed. Laboratory Results Last 24 Hours Test 08/09/17 05:30 Sodium Level 141 mmol/L Potassium Level 3.7 mmol/L Chloride Level 107 mmol/L Carbon Dioxide Level 26 mmol/L Anion Gap 8.0 mmol/L Blood Urea Nitrogen 9 mg/dl Creatinine 0.64 mg/dl Est Creatinine Clear Calc Drug Dose 90.2 ml/min Estimated GFR () 105.5 Estimated GFR (Non- 91.0 BUN/Creatinine Ratio 13.7 Random Glucose 90 mg/dl Calcium Level 7.9 mg/dl Assessment & Plan Assessment back pain with sciatica. Plan at this time I suspect she may have some underlying significant SI joint dysfunction. CAT scan of the pelvis does demonstrate significant sclerosis of the bilateral SI joints. This would be expected considering the length and duration of her fusion mass at the thoracolumbar spine. Would like to obtain x-rays of the thoracolumbar spine as well as an MRI of the lumbar spine and pelvis. There is been some concern regarding metal in her spine. She does have evidence of sublaminar wires throughout the thoracic spine. This would not limit her from having an MRI. She's had MRIs in the past without difficulty
[2017-08-09] MEDS: ALPRAZOLAM 0.5 MG TAB PO PRN (11:05)
--- NOTE | 2017-08-09 11:48 | DIAGNOSTIC IMAGING REPORT ---
LUMBAR SPINE 2 OR 3 VIEWS CLINICAL HISTORY: back pain COMPARISON STUDY: 06/26/2015 FINDINGS: There is a thoracolumbar scoliosis. There are postsurgical changes of an extensive spinal fusion. Advanced arthritic changes are present within the SI joints right greater than left. No acute fractures are visualized. The bones are osteopenic. IMPRESSION: 1. Postsurgical changes of an extensive spinal fusion 2. No acute fractures 3. Scoliosis 4. Arthritic changes within the SI joints Electronically signed by: Jhonny Marsh M.D. 08/09/2017 11:47 AM Dictated Date/Time: 08/09/2017 11:46 AM
[2017-08-09] MEDS ORDERED: LORAZEPAM 0.5 MG TAB PO PRN (12:30)
[2017-08-09] MEDS ORDERED: NURSING VERBAL MED ORDER ONE (13:00)
[2017-08-09] MEDS ORDERED: LORAZEPAM INJ 0.5 MG in SYRINGE 0.75 ML IV SCH (13:15)
--- NOTE | 2017-08-09 14:53 | DIAGNOSTIC IMAGING REPORT ---
MRI LUMBAR SPINE W/O CONTRAST CLINICAL HISTORY: back and leg pain TECHNIQUE: Sagittal and axial T1, T2 and STIR images were obtained. COMPARISON STUDY: 01/15/2015 OBSERVATIONS: There are postsurgical changes of an extensive spinal fusion. There are no suspicious areas of marrow replacement. There is a prominent scoliosis. L1-2: There is mild facet joint arthropathy. There is minimal indentation of the posterior lateral aspect of the thecal sac to the right of midline. There is mild bilateral foraminal narrowing L2-3: There is minor facet joint arthropathy. There is no significant spinal stenosis. There is mild bilateral foraminal narrowing L3-4: There is no significant spinal stenosis. There is mild bilateral foraminal narrowing L4-5: No disc protrusions or extrusions. No evidence of spinal canal or neural foraminal compromise. L5-S1: There is disc desiccation. There is no significant spinal or foraminal stenosis. There is a small fluid collection posterior to the fusion mass at the L4 level. This remains unchanged from the prior study and is felt to be postsurgical and chronic. The conus medullaris and cauda equina appear normal. IMPRESSION: No significant change from the prior 2014 study. Scoliosis and extensive lumbar fusion. No focal disc herniations. No significant spinal stenosis. Minor multilevel foraminal narrowing. Electronically signed by: Jhonny Marsh M.D. 08/09/2017 2:52 PM Dictated Date/Time: 08/09/2017 2:48 PM
--- NOTE | 2017-08-09 16:01 | DIAGNOSTIC IMAGING REPORT ---
PELVIS WITHOUT CONTRAST (MRI) CLINICAL HISTORY: Severe back and right hip pain. Inability to bear weight on the right hip. COMPARISON STUDY: 01/15/2015 FINDINGS: There are no areas of marrow replacement to indicate neoplasm. There are no areas of marrow edema to indicate occult right hip fracture. There are mild osteoarthritic changes involving the right hip. There is extensive bilateral SI joint edema. There are SI joint erosive changes. The findings are indicative of a bilateral sacroiliitis. There is no pathologic joint effusion within either hip There is right-sided rectus femoris, gluteus medius and gluteus minimus atrophy. IMPRESSION: 1. No evidence of neoplasm 2. No evidence of occult hip fracture 3. Bilateral sacroiliitis 4. Right-sided rectus femoris, gluteus minimus, and gluteus medius atrophy Electronically signed by: Jhonny Marsh M.D. 08/09/2017 4:00 PM Dictated Date/Time: 08/09/2017 3:51 PM
--- NOTE | 2017-08-09 17:26 | Progress Note ---
Medicine Progress Note Date & Time of Visit: Aug 09, 2017 at 17:17. Subjective patient seen resting in bed, sitting up , having dinner states back pain is somewhat improved today, still has difficulty ambulating denies leg weakness, incontinence (+) 3 loose BMs today non bloody no abdominal pain Objective Last 8 Hrs Date Time Temp Pulse Resp B/P (MAP) Pulse Ox O2 Delivery O2 Flow Rate FiO2 08/09/17 16:00 Room Air Physical Exam: General- oriented x 3, not in distress, speaks in sentences with no effort Eyes- anicteric Neck- no JVD Lungs- clear breath sounds bilaterally Heart- regular rhythm; no murmur, normal rate Abdomen- normal bowel sounds, non distended, soft, nontender Back- no swelling/erythema/warmth, (+) moderate tenderness to the lumbar spine and right buttock region Extremities- no pretibial edema, no calf tenderness; peripheral pulses intact poor hip flexion of the right leg due to pain Neuro- alert, oriented x 3;no gross focal deficits Skin- warm & dry Laboratory Results: Last 24 Hours Test 08/09/17 05:30 Sodium Level 141 mmol/L Potassium Level 3.7 mmol/L Chloride Level 107 mmol/L Carbon Dioxide Level 26 mmol/L Anion Gap 8.0 mmol/L Blood Urea Nitrogen 9 mg/dl Creatinine 0.64 mg/dl Est Creatinine Clear Calc Drug Dose 90.2 ml/min Estimated GFR () 105.5 Estimated GFR (Non- 91.0 BUN/Creatinine Ratio 13.7 Random Glucose 90 mg/dl Calcium Level 7.9 mg/dl Assessment & Plan 67 year old female with history of Chronic Pain, CAD s/p Stent, HTN, Mood disorder presenting with low back pain radiating to the right hip. LOW BACK PAIN, LIKELY SECONDARY TO SACROILIITIS HISTORY OF LUMBAR SPINE SURGERIES - MRI pelvis: 1. No evidence of neoplasm 2. No evidence of occult hip fracture 3. Bilateral sacroiliitis 4. Right-sided rectus femoris, gluteus minimus, and gluteus medius atrophy - MRI lumbar spine: : No significant change from the prior 2014 study. Scoliosis and extensive lumbar fusion. No focal disc herniations. No significant spinal stenosis. Minor multilevel foraminal narrowing. - added Lidoderm patch, Warm compress continue usual Morphine, PRN Tramadol, Baclofen - pain slightly improving, still has difficulty ambulating - discussed with Dr. Lin- Pain management consult for possible injection recommended will consult Pain Management service - will likely need transitioning to rehab RIGHT HIP PAIN - CT hip: mild arthritis, osteophytes - pain management as noted above Dr. Howe consulted, appreciate the recommendations - monitor DIARRHEA - (+) 3 loose bms today check c diff stool - on empiric Flagyl--> patient reports she has had at least 3 episodes of c diff colitis--> change to Vanco PO QID - ff up stool for C diff Dental Infection - complete Augmentin Tx x 1 more day (last day tomorrow) History of CAD s/p Stent - continue ASA, Plavix, Metoprolol, Lisinopril History of Chronic Pain - pain management as noted above Mood Disorder - continue Trazodone, Citalopram DVT Proph lovenox Disposition pending lives at home PT/OT ordered, may need inpatient Rehab upon discharge Current Inpatient Medications: Current Inpatient Medications Medications (Trade) Dose Ordered Sig/Pablo Route Start Time Stop Time Status Last Admin Dose Admin Acetaminophen (Tylenol Tab) 650 mg Q6H PRN PO 08/08/17 00:00 09/07/17 00:00 Ioversol (Optiray 320) 100 ml UD PRN IV 08/08/17 01:30 08/12/17 01:29 Enoxaparin Sodium (Lovenox Inj) 40 mg Q24H SQ 08/08/17 10:00 09/07/17 09:59 08/09/17 08:18 40 MG Alprazolam (Xanax Tab) 1 mg BID PRN PO 08/08/17 01:30 09/07/17 01:29 08/09/17 11:05 1 MG Amlodipine Besylate (Norvasc Tab) 5 mg DAILY PO 08/08/17 09:00 09/07/17 08:59 08/09/17 08:19 5 MG Aspirin (Ecotrin Tab) 81 mg DAILY PO 08/08/17 09:00 09/07/17 08:59 08/09/17 08:19 81 MG Atorvastatin Calcium (Lipitor Tab) 40 mg DAILY PO 08/08/17 09:00 09/07/17 08:59 08/09/17 08:19 40 MG Baclofen (Lioresal Tab) 10 mg TID PRN PO 08/08/17 01:30 09/07/17 01:29 08/09/17 15:46 10 MG Citalopram Hydrobromide (celeXA TAB) 10 mg DAILY PO 08/08/17 09:00 09/07/17 08:59 08/09/17 08:19 10 MG Clopidogrel Bisulfate (plAVix TAB) 75 mg DAILY PO 08/08/17 09:00 09/07/17 08:59 08/09/17 08:18 75 MG Levothyroxine Sodium (Synthroid Tab) 75 mcg DAILYBB PO 08/08/17 06:30 09/07/17 06:29 08/09/17 05:39 75 MCG Lisinopril (Zestril Tab) 5 mg DAILY PO 08/08/17 09:00 09/07/17 08:59 08/09/17 08:19 5 MG Metoprolol Tartrate (Lopressor Tab) 25 mg BID PO 08/08/17 09:00 09/07/17 08:59 08/09/17 08:20 25 MG Multivitamins (Multivitamin Tab) 1 tab DAILY PO 08/08/17 09:00 09/07/17 08:59 08/09/17 08:19 1 TAB Pantoprazole Sodium (Protonix Tab) 40 mg DAILY PO 08/08/17 09:00 09/07/17 08:59 08/09/17 08:19 40 MG Tramadol HCl (Ultram Tab) 50 mg Q4H PRN PO 08/08/17 01:30 09/07/17 01:29 08/09/17 15:45 50 MG Trazodone HCl (Desyrel Tab) 100 mg HS PO 08/08/17 21:00 09/07/17 20:59 08/08/17 21:38 100 MG Morphine Sulfate (Oramorph Sr Tab) 30 mg Q12 PO 08/08/17 09:00 09/07/17 08:59 08/09/17 08:25 30 MG Miscellaneous Information (Order Awaiting Action) 1 ea QS N/A 08/08/17 08:00 09/07/17 07:59 Ondansetron HCl (Zofran Inj) 4 mg Q6H PRN IV 08/08/17 01:30 09/07/17 01:29 Hydromorphone HCl (Dilaudid Inj) 0.5 mg Q6H PRN IV 08/08/17 01:30 08/22/17 01:29 Amoxicillin/ Clavulanate Potassium (Augmentin Tab) 875 mg BIDM PO 08/08/17 08:00 08/10/17 07:59 08/09/17 08:20 875 MG Polyethylene (Miralax Powder Packet) 17 gm DAILY PRN PO 08/08/17 01:30 09/07/17 01:29 08/08/17 11:31 17 GM Metronidazole (Flagyl Tab) 500 mg TID PO 08/08/17 12:00 08/18/17 11:59 08/09/17 15:45 500 MG Lidocaine (Lidoderm Patch 5%) 1 patch QAM TD 08/09/17 09:00 09/08/17 08:59 08/09/17 08:18 1 PATCH Miscellaneous (Remove Lidoderm Patch) 1 ea DAILY@21 N/A 08/08/17 21:00 09/07/17 20:59 08/08/17 21:00 1 EA Heparin Sodium (Porcine) (Heparin 100 Unit/ml 5ml Flush) 5 ml PRN PRN FLUSH 08/08/17 18:00 09/07/17 17:59 08/09/17 13:16 5 ML Prazosin HCl (Prazosin) 1 mg HS PO 08/09/17 21:00 09/07/17 20:59
[2017-08-09] MEDS: VANCOMYCIN HCL 125 MG/2.5ML SOLN PO SCH (17:47)
[2017-08-09] MEDS: RASPBERRY SYRUP 5 ML UDP PO SCH (17:47)
[2017-08-09 17:48] VITALS: BP 126/75; PULSE 86; TEMP 36.8; O2SAT 96
[2017-08-09] MEDS: TRAZODONE HCL 100 MG TAB PO SCH (20:41)
[2017-08-09] MEDS: PRAZOSIN HCL 1 MG CAP PO SCH (20:41)
[2017-08-09 20:43] VITALS: BP 142/87; PULSE 81
[2017-08-09 23:01] VITALS: BP 144/86; PULSE 61; TEMP 36.6; O2SAT 92
[2017-08-10] MEDS: RASPBERRY SYRUP 5 ML UDP PO SCH ×5 (00:29→23:48)
[2017-08-10] MEDS: ALPRAZOLAM 0.5 MG TAB PO PRN ×2 (00:29→10:43)
[2017-08-10] MEDS: VANCOMYCIN HCL 125 MG/2.5ML SOLN PO SCH ×5 (00:29→23:47)
[2017-08-10] MEDS: LEVOTHYROXINE 75 MCG TAB PO SCH (06:09)
[2017-08-10 06:14] LABS: BUN/CREATININE RATIO 13.8 (10-20); CALCIUM 8.3 mg/dl (8.5-10.1); CREATININE 0.67 mg/dl (0.60-1.20); POTASSIUM 3.7 mmol/L (3.5-5.1)
[2017-08-10 07:29] VITALS: BP 151/84; PULSE 87; TEMP 36.4; O2SAT 94
[2017-08-10] MEDS: BACLOFEN 10 MG TAB PO PRN (07:50)
[2017-08-10] MEDS: CLOPIDOGREL BISULFATE 75 MG TAB PO SCH (07:50)
[2017-08-10] MEDS: PATADAY~ORDER AWAITING ACTION SCH ×4 (07:50→23:48)
[2017-08-10] MEDS: LISINOPRIL 5 MG TAB PO SCH (07:51)
[2017-08-10] MEDS: ASPIRIN 81 MG ECTAB PO SCH (07:51)
[2017-08-10] MEDS: AMLODIPINE BESYLATE 5 MG TAB PO SCH (07:51)
[2017-08-10] MEDS: METOPROLOL TARTRATE 25 MG TAB PO SCH ×2 (07:51→21:46)
[2017-08-10] MEDS: PANTOprazole SOD 40 MG TAB PO SCH (07:51)
[2017-08-10] MEDS: MULTIVITAMIN TAB PO SCH (07:52)
[2017-08-10] MEDS: CITALOPRAM 20 MG TAB PO SCH (07:52)
[2017-08-10] MEDS: LIDODERM (LIDOCAINE) PATCH 5% TD SCH (07:52)
[2017-08-10 08:00] VITALS: O2SAT 94
[2017-08-10] MEDS: MoRPHine SULFATE CR 15 MG TAB (MS CONTIN) PO SCH ×2 (08:56→21:47)
--- NOTE | 2017-08-10 09:38 | Pain Management Consultation ---
Pain Management Consultation Date of Consultation Aug 10, 2017. Reason for Consultation Acute on chronic pain Pain Location 1 - 2 - History Patient is a 67-year-old white female who was admitted due to acute intractable right-sided lumbosacral pain with radiation towards the gluteal and hip and posterior thigh. She reports occasional pain with travel to the posterior ankle on the right side only. She has a history of chronic low back pain on chronic opiate therapy status post multiple lumbar spine surgeries most recently approximately 10 years ago. She reported onset of her current pain a few days prior to admission without a fall or known injury. She describes the pain as constant, aching, throbbing and sharp in characteristic aggravated with movements. She indicates her pain as ranging between a 2-10/10. She reports moderate pain across the entire lumbar region but it is predominately right- sided at this time. She denies radiation to the groin. She reports chronic use of extended release morphine in the outpatient setting with tramadol for breakthrough pain. She reports antibiotic therapy recently per her dentist and was scheduled this week for dental surgery for abscess. She further reports a history of bare-metal stent placed earlier this summer and remains on Plavix therapy. The patient denies footdrop or falling. She does utilize a 4 point walker for immature activity in the home. She denies any bowel or bladder incontinence and has no further constitutional complaints. Plan of care discussed with Dr. Nette Browne. Past Medical/Surgical History (1) Intra-abdominal abscess (2) Groin pain (3) Chronic pain (4) Sepsis (5) Dehydration (6) Lumbar radiculopathy (7) Scoliosis (8) Cervical spondylolysis (9) HTN (hypertension) (10) Dyslipidemia (11) Adjustment disorder with depressed mood (12) Lumbago (13) Post-op pain (14) PTSD (post-traumatic stress disorder) (15) Hypothyroidism (16) H/O spinal fusion (17) H/O colonoscopy (18) H/o right knee meniscus repair (19) H/O repair of right rotator cuff (20) H/O ovarian cystectomy (21) S/P appendectomy Family History Cancer Cardiac disorder BROTHER Diabetes mellitus FH: CHF (congestive heart failure) Heart disease Hypertension FATHER MOTHER Lung disease Social / Work History Smoking Status: Never smoker Smokeless Tobacco Use: No Alcohol Use: socially Drug Use: none Marital Status: single Housing Status: lives alone Occupation: retired Allergies Coded Allergies: Latex (Verified Allergy, Intermediate, RASH, 08/07/17) Nickel (Verified Allergy, Intermediate, SEVERE DERMATITIS, 08/07/17) Aspirin (Verified Adverse Reaction, Unknown, bleeding ulcers, 08/07/17) 03/26/17--dr flores inquired about aspirin allergy & reviewd history--pt has had bleeding in past while on anticoagulation, as of 03/26/17--no gi ulcers present & aspirin ok to give Medications Current Inpatient Medications Medications (Trade) Dose Ordered Sig/Pablo Route Start Time Stop Time Status Last Admin Dose Admin Acetaminophen (Tylenol Tab) 650 mg Q6H PRN PO 08/08/17 00:00 09/07/17 00:00 Ioversol (Optiray 320) 100 ml UD PRN IV 08/08/17 01:30 08/12/17 01:29 Enoxaparin Sodium (Lovenox Inj) 40 mg Q24H SQ 08/08/17 10:00 09/07/17 09:59 08/09/17 08:18 40 MG Alprazolam (Xanax Tab) 1 mg BID PRN PO 08/08/17 01:30 09/07/17 01:29 08/10/17 00:29 1 MG Amlodipine Besylate (Norvasc Tab) 5 mg DAILY PO 08/08/17 09:00 09/07/17 08:59 08/10/17 07:51 5 MG Aspirin (Ecotrin Tab) 81 mg DAILY PO 08/08/17 09:00 09/07/17 08:59 08/10/17 07:51 81 MG Baclofen (Lioresal Tab) 10 mg TID PRN PO 08/08/17 01:30 09/07/17 01:29 08/10/17 07:50 10 MG Citalopram Hydrobromide (celeXA TAB) 10 mg DAILY PO 08/08/17 09:00 09/07/17 08:59 08/10/17 07:52 10 MG Clopidogrel Bisulfate (plAVix TAB) 75 mg DAILY PO 08/08/17 09:00 09/07/17 08:59 08/10/17 07:50 75 MG Levothyroxine Sodium (Synthroid Tab) 75 mcg DAILYBB PO 08/08/17 06:30 09/07/17 06:29 08/10/17 06:09 75 MCG Lisinopril (Zestril Tab) 5 mg DAILY PO 08/08/17 09:00 09/07/17 08:59 08/10/17 07:51 5 MG Metoprolol Tartrate (Lopressor Tab) 25 mg BID PO 08/08/17 09:00 09/07/17 08:59 08/10/17 07:51 25 MG Multivitamins (Multivitamin Tab) 1 tab DAILY PO 08/08/17 09:00 09/07/17 08:59 08/10/17 07:52 1 TAB Pantoprazole Sodium (Protonix Tab) 40 mg DAILY PO 08/08/17 09:00 09/07/17 08:59 08/10/17 07:51 40 MG Tramadol HCl (Ultram Tab) 50 mg Q4H PRN PO 08/08/17 01:30 09/07/17 01:29 08/09/17 15:45 50 MG Trazodone HCl (Desyrel Tab) 100 mg HS PO 08/08/17 21:00 09/07/17 20:59 08/09/17 20:41 100 MG Morphine Sulfate (Oramorph Sr Tab) 30 mg Q12 PO 08/08/17 09:00 09/07/17 08:59 08/10/17 08:56 30 MG Miscellaneous Information (Order Awaiting Action) 1 ea QS N/A 08/08/17 08:00 09/07/17 07:59 Ondansetron HCl (Zofran Inj) 4 mg Q6H PRN IV 08/08/17 01:30 09/07/17 01:29 Hydromorphone HCl (Dilaudid Inj) 0.5 mg Q6H PRN IV 08/08/17 01:30 08/22/17 01:29 Polyethylene (Miralax Powder Packet) 17 gm DAILY PRN PO 08/08/17 01:30 09/07/17 01:29 08/08/17 11:31 17 GM Lidocaine (Lidoderm Patch 5%) 1 patch QAM TD 08/09/17 09:00 09/08/17 08:59 08/10/17 07:52 1 PATCH Miscellaneous (Remove Lidoderm Patch) 1 ea DAILY@21 N/A 08/08/17:00 09/07/17 20:59 08/09/17 20:41 1 EA Heparin Sodium (Porcine) (Heparin 100 Unit/ml 5ml Flush) 5 ml PRN PRN FLUSH 08/08/17 18:00 09/07/17 17:59 08/10/17 05:32 5 ML Prazosin HCl (Prazosin) 1 mg HS PO 08/09/17 21:00 09/07/17 20:59 08/09/17 20:41 1 MG Vancomycin HCl (Vancomycin Oral Soln) 125 mg Taper Q6H PO 08/09/17 18:00 09/20/17 17:59 08/10/17 06:08 125 MG Raspberry (Raspberry Syrup 5ml Cup) 5 ml Q6H PO 08/09/17 18:00 08/23/17 17:59 08/10/17 06:08 5 ML Review of Systems Patient denies complaints related to cardiac, pulmonary, GI, , endocrine, neurologic, hepatic, renal, ENT, dermatologic or musculoskeletal other than those described above in history of present illness. Physical Exam Height & Weight: Height 5 feet, 4.00 inches. Weight 90.100 (Kilograms) 198 (Pounds) Last Vital Signs Documentation Date Time Temp Pulse Resp B/P (MAP) Pulse Ox O2 Delivery O2 Flow Rate FiO2 08/10/17 08:00 94 Room Air 08/10/17 07:29 36.4 87 20 151/84 (106) Exam: General: Patient sitting upon entering the room in no obvious acute distress. Speech and thought process appropriate. Mood and affect flat. Cognition intact. Back/spine: Complete loss of lumbar lordosis with multiple well-healed midline surgical incisions. Patient is hyperalgesic in the lumbosacral region to light palpation. She is tender over the lower lumbar facet and SI joint locations with difficulty localizing due to hyperalgesic response. No definitive myoneural trigger points were appreciated. Range of motion limited in all planes. Lower extremities: SLR negative bilaterally in the sitting position-moderate increase in axial low back pain bilaterally. Patient unable/unwilling to perform Shonda maneuver. Internal and external rotation of the right hip reproduced low back/gluteal pain. Strength testing is 5/5 the distal lower extremities without deficits. Resisted knee flexion and hip flexion/extension aggravated axial low back pain complaint. Sensation was intact distally to sharp and dull without deficits. Neurologic: Cranial nerves grossly intact. Ambulatory function not witnessed. No evidence of ankle clonus. Laboratory Laboratory Results (Last CBC): 08/08/17 07:07 Red Blood Count 3.94 L, Mean Corpuscular Volume 88.6, Mean Corpuscular Hemoglobin 30.2, Mean Corpuscular Hemoglobin Concent 34.1, Mean Platelet Volume 9.7, Neutrophils (%) (Auto) 66.6, Lymphocytes (%) (Auto) 22.0, Monocytes (%) ( Auto) 8.2, Eosinophils (%) (Auto) 2.2, Basophils (%) (Auto) 0.3, Neutrophils # ( Auto) 5.99, Lymphocytes # (Auto) 1.98, Monocytes # (Auto) 0.74 H, Eosinophils # (Auto) 0.20, Basophils # (Auto) 0.03 Imaging MRI: reports reviewed MRI Findings Patient: JOVANNI DE SANTIAGO Address1: [address] [place] [address] Rec: [id number] Address2: Acct ID: [id number] [facility] Zip: [place] [address] Date: 1950 Sex: F Room/Bed: [facility] Ref Phy: Charanjit Spann M.D.(MARGA) SC: C.MED Att Phy: Kyler Pineda MD Report #: [id number] Barbara Phy: Charanjit Spann M.D.(MARGA) Test: LSWOC Admit Phy: Latrell Kraft M.D. Can Filling Machine Operator: ARY Interpreting Phy: Jhonny Marsh M.D. Diagnosis: SEPSIS Ordering Phy: Omid Lin D.O. Service Date: 08/09/17 Admit Date: 08/07/1710/21/17 MNE: [id number] CONF: DICTATED BY: Jhonny Marsh M.D.]] CC: Omid Lin D.O. Panlilio, Robin A., MD Taylor, William F.JR, M.D.(MARGA) Endcc: [~ rep ct add3]] MRI LUMBAR SPINE W/O CONTRAST CLINICAL HISTORY: back and leg pain TECHNIQUE: Sagittal and axial T1, T2 and STIR images were obtained. COMPARISON STUDY: 01/15/2015 OBSERVATIONS: There are postsurgical changes of an extensive spinal fusion. There are no suspicious areas of marrow replacement. There is a prominent scoliosis. L1-2: There is mild facet joint arthropathy. There is minimal indentation of the posterior lateral aspect of the thecal sac to the right of midline. There is mild bilateral foraminal narrowing L2-3: There is minor facet joint arthropathy. There is no significant spinal stenosis. There is mild bilateral foraminal narrowing L3-4: There is no significant spinal stenosis. There is mild bilateral foraminal narrowing L4-5: No disc protrusions or extrusions. No evidence of spinal canal or neural foraminal compromise. L5-S1: There is disc desiccation. There is no significant spinal or foraminal stenosis. There is a small fluid collection posterior to the fusion mass at the L4 level. This remains unchanged from the prior study and is felt to be postsurgical and chronic. The conus medullaris and cauda equina appear normal. IMPRESSION: No significant change from the prior 2014 study. Scoliosis and extensive lumbar fusion. No focal disc herniations. No significant spinal stenosis. Minor multilevel foraminal narrowing. Electronically signed by: Jhonny Marsh M.D. 08/09/2017 2:52 PM Dictated Date/Time: 08/09/2017 2:48 PM The status of this report is Signed. Draft = Not yet reviewed or approved by Radiologist. Signed = Reviewed and approved by Radiologist. Patient: JOVANNI DE SANTIAGO Address1: [address] [place] [address] Rec: [id number] [facility] [id number] Zip: [place] [address] Date: 1950 Sex: F Room/Bed: [facility] Ref Phy: Charanjit Spann M.D.(MARGA) SC: C.MED Att Phy: Kyler Pineda MD Report #: [id number] Barbara Phy: Charanjit Spann M.D.(MARGA) Test: PWO Admit Phy: Latrell Kraft M.D. Can Filling Machine Operator: ARY Interpreting Phy: Jhonny Marsh M.D. Diagnosis: SEPSIS Ordering Phy: Omid LinO. Service Date: 08/09/17 Admit Date: 08/07/1710/21/17 MNE: [id number] CONF: DICTATED BY: Jhonny Marsh M.D.]] CC: Omid Lin D.O. Panlilio, Robin A., MD Taylor, William F.JR, M.D.(MARGA) Endcc: [~ rep ct add3]] PELVIS WITHOUT CONTRAST (MRI) CLINICAL HISTORY: Severe back and right hip pain. Inability to bear weight on the right hip. COMPARISON STUDY: 01/15/2015 FINDINGS: There are no areas of marrow replacement to indicate neoplasm. There are no areas of marrow edema to indicate occult right hip fracture. There are mild osteoarthritic changes involving the right hip. There is extensive bilateral SI joint edema. There are SI joint erosive changes. The findings are indicative of a bilateral sacroiliitis. There is no pathologic joint effusion within either hip There is right-sided rectus femoris, gluteus medius and gluteus minimus atrophy. IMPRESSION: 1. No evidence of neoplasm 2. No evidence of occult hip fracture 3. Bilateral sacroiliitis 4. Right-sided rectus femoris, gluteus minimus, and gluteus medius atrophy Electronically signed by: Jhonny Marsh M.D. 08/09/2017 4:00 PM Dictated Date/Time: 08/09/2017 3:51 PM The status of this report is Signed. Draft = Not yet reviewed or approved by Radiologist. Signed = Reviewed and approved by Radiologist. CT: reports reviewed CT Findings Patient: JOVANNI DE SANTIAGO Address1: [address] [place] [address] Rec: [id number] Address2: Acct ID: [id number] [facility] Zip: [place] [address] Date: 1950 Sex: F Room/Bed: Ref Phy: Charanjit Spann M.D.(MARGA) SC: CRYSTAL Att Phy: Report #: [id number] Barbara Phy: Charanjit Spann M.D.(MARGA) Test: HIPW Admit Phy: Can Filling Machine Operator: TERE Interpreting Phy: Ivan Smith M.D. Diagnosis: BACK/HIP PAIN Ordering Phy: Latrell Kraft M.D. Service Date: 08/08/17 Admit Date: 08/07/17 MNE: [id number] CONF: DICTATED BY: Ivan Smith M.D.]] CC: Adan Baxter M.D. Oconer, Joseph N., M.D. Taylor, William F.JR, M.D.(MARGA) Endcc: [~ rep ct add3]] CT SCAN OF THE RIGHT HIP WITH IV CONTRAST CLINICAL HISTORY: Right hip pain. Fever. COMPARISON STUDY: Pelvic CT dated 08/05/2017. TECHNIQUE: CT scan of the right hip is performed from the bony pelvis to the proximal femora. Images reviewed in the axial, sagittal, and coronal planes. IV contrast was administered without complication A dose lowering technique was utilized adhering to the principles of ALARA. CT DOSE: 514.53 mGy.cm FINDINGS: The skeletal structures are osteopenic. No fracture is identified involving the right hip or the visualized right hemipelvis. Advanced sclerotic change is noted in the sacroiliac joints. Spondylosis and postoperative change is partially visualized in the lower lumbar spine. Mild arthritic change and joint space loss is noted in the right hip. Enthesophytes arise in the greater trochanter of the right femur. No significant joint effusion is seen. The soft tissues overlying the right hip are normal as visualized. No fluid collection is seen. The bladder is normal as imaged. Uterine fibroids are noted. No adnexal lesion is seen. There is no right pelvic sidewall or inguinal lymphadenopathy. The right iliac and femoral vessels are patent as imaged. IMPRESSION: 1. No acute bony abnormality is seen involving the right hip. 2. The overlying soft tissues are normal in appearance. 3. Advanced sclerotic change is identified in the sacroiliac joints. Electronically signed by: Ivan Smith M.D. 08/08/2017 1:56 AM Dictated Date/Time: 08/08/2017 1:51 AM The status of this report is Signed. Draft = Not yet reviewed or approved by Radiologist. Signed = Reviewed and approved by Radiologist. Radiology: reports reviewed Radiology Findings Patient: JOVANNI DE SANTIAGO Address1: [address] [place] [address] Rec: [id number] Address2: Acct ID: [id number] [facility] Zip: [place] [address] Date: 1950 Sex: F Room/Bed: N275-2 Ref Phy: Charanjit Spann M.D.(MARGA) SC: C.MED Att Phy: Kyler Pineda MD Report #: [id number] Barbara Phy: Charanjit Spann M.D.(MARGA) Test: [id number] Admit Phy: Latrell Kraft M.D. Can Filling Machine Operator: LY Interpreting Phy: Jhonny Marsh M.D. Diagnosis: SEPSIS Ordering Phy: Omid Lin D.O. Service Date: 08/09/17 Admit Date: 08/07/1710/21/17 MNE: PWRSCRIBE CONF: DICTATED BY: Jhonny Marsh M.D.]] CC: Omid Lin D.O. Panlilio, Robin A., MD Taylor, William F.JR, M.D.(MARGA) Endcc: [~ rep ct add3]] LUMBAR SPINE 2 OR 3 VIEWS CLINICAL HISTORY: back pain COMPARISON STUDY: 06/26/2015 FINDINGS: There is a thoracolumbar scoliosis. There are postsurgical changes of an extensive spinal fusion. Advanced arthritic changes are present within the SI joints right greater than left. No acute fractures are visualized. The bones are osteopenic. IMPRESSION: 1. Postsurgical changes of an extensive spinal fusion 2. No acute fractures 3. Scoliosis 4. Arthritic changes within the SI joints Electronically signed by: Jhonny Marsh M.D. 08/09/2017 11:47 AM Dictated Date/Time: 08/09/2017 11:46 AM The status of this report is Signed. Draft = Not yet reviewed or approved by Radiologist. Signed = Reviewed and approved by Radiologist. [place] Drug Monitoring Program Search Results: patient reviewed within database Drug Monitoring Findings: Patient has 50 controlled prescriptions in the past 1 year with 9 prescribers and 3 pharmacies upon review of PDMP. Assessment 1. Sacroiliitis 2. Lumbar postlaminectomy syndrome 3. Chronic opioid dependency 4. Lumbar radicular pain 5. Dental abscess 6. History of bare-metal stent placement March 2017 on clopidogrel therapy 7. Mood disorder Recommendations 1. Patient appears to have evidence of sacroiliitis but is currently a poor candidate for interventional procedure due to dental abscess on antibiotic therapy, vancomycin therapy for possible C. difficile as well as her antiplatelet therapy with clopidogrel status post bare metal stent placement. Would recommend the above issues be resolved prior to consideration of interventional treatment. 2. Consider Medrol Dosepak should there be no contraindication given her current comorbid medical conditions. Will leave to the discretion of hospitalist service. 3. Patient may continue with her chronic extended release morphine and tramadol for breakthrough pain without change in recommendation 4. Continue with Lidoderm patch applied to the affected area. Thank you for allowing us to participate in the care of Mrs. De Santiago
[2017-08-10] MEDS: ENOXAPARIN 40 MG/0.4 ML SYR SQ SCH (10:38)
--- NOTE | 2017-08-10 11:32 | Progress Note ---
Progress Note Date of Service Aug 10, 2017. Progress Note I reviewed with the patient today the results of her MRIs. Again MRI lumbar spine is relatively benign. The MRI of the pelvis does show severe advanced bilateral sacroiliitis. Again I believe this is the major source of her discomfort. When she is cleared of concerns regarding sepsis or infection she would benefit from a trial of SI joint injections. Ultimately she may require SI joint fusion. She understands and agrees.
--- NOTE | 2017-08-10 12:58 | Progress Note ---
Medicine Progress Note Date & Time of Visit: Aug 10, 2017 at 12:54. Subjective patient seen resting in bed, not in distress states back pain is slightly improved today denies leg pain /paresthesias had 3 BMs overnight, pasty no abdominal pain, fever/chills denies other symptoms Objective Last 8 Hrs Date Time Temp Pulse Resp B/P (MAP) Pulse Ox O2 Delivery O2 Flow Rate FiO2 08/10/17 08:00 94 Room Air 08/10/17 07:29 36.4 87 20 151/84 (106) 94 Room Air Physical Exam: General- oriented x 3, not in distress, speaks in sentences with no effort Eyes- anicteric Neck- no JVD Lungs- clear breath sounds bilaterally, no rales/wheezes Heart- regular rhythm; no murmur, normal rate Abdomen- normal bowel sounds, non distended, soft, nontender Back- no swelling/erythema/warmth, (+) moderate tenderness to the lumbar spine and right buttock region Extremities- no pretibial edema, no calf tenderness; peripheral pulses intact poor hip flexion of the right leg due to pain Neuro- alert, oriented x 3;no gross focal deficits Skin- warm & dry Laboratory Results: Last 24 Hours Test 08/10/17 05:34 Sodium Level 143 mmol/L Potassium Level 3.7 mmol/L Chloride Level 108 mmol/L Carbon Dioxide Level 27 mmol/L Anion Gap 8.0 mmol/L Blood Urea Nitrogen 9 mg/dl Creatinine 0.67 mg/dl Est Creatinine Clear Calc Drug Dose 86.2 ml/min Estimated GFR () 103.9 Estimated GFR (Non- 89.7 BUN/Creatinine Ratio 13.8 Random Glucose 90 mg/dl Calcium Level 8.3 mg/dl Assessment & Plan 67 year old female with history of Chronic Pain, CAD s/p Stent, HTN, Mood disorder presenting with low back pain radiating to the right hip. LOW BACK PAIN, LIKELY SECONDARY TO SACROILIITIS HISTORY OF LUMBAR SPINE SURGERIES - MRI pelvis: 1. No evidence of neoplasm 2. No evidence of occult hip fracture 3. Bilateral sacroiliitis 4. Right-sided rectus femoris, gluteus minimus, and gluteus medius atrophy - MRI lumbar spine: : No significant change from the prior 2014 study. Scoliosis and extensive lumbar fusion. No focal disc herniations. No significant spinal stenosis. Minor multilevel foraminal narrowing. - added Lidoderm patch, Warm compress continued usual Morphine, PRN Tramadol, Baclofen - pain gradually improving daily , still has difficulty ambulating discussed with Dr. Lin- Pain management consult for possible injection recommended consulted Pain Management service--> patient not a good candidate for SI joint injection due to dental infection under antibiotic treatment recommend Medrol dosepack but patient declines due to side effects will add Ofirmev IV PRN for pain - will need to transition to Rehab in 1-2 days RIGHT HIP PAIN - CT hip: mild arthritis, osteophytes - pain management as noted above Dr. Howe consulted, appreciate the recommendations - monitor DIARRHEA - (+) 3 pasty BMs over night check c diff stool: pending - on empiric Flagyl--> patient reports she has had at least 3 episodes of c diff colitis--> change to Vanco PO QID day 2 - ff up stool for C diff Dental Infection - completed Augmentin Tx -denies pain on her tooth History of CAD s/p Stent - continue ASA, Plavix, Metoprolol, Lisinopril HTN - not at goal increase Lisinopril History of Chronic Pain - pain management as noted above Mood Disorder - continue Trazodone, Citalopram DVT Proph lovenox Disposition pending lives at home PT/OT ordered, inpatient Rehab upon discharge when accepted Current Inpatient Medications: Current Inpatient Medications Medications (Trade) Dose Ordered Sig/Pablo Route Start Time Stop Time Status Last Admin Dose Admin Acetaminophen (Tylenol Tab) 650 mg Q6H PRN PO 08/08/17 00:00 09/07/17 00:00 Ioversol (Optiray 320) 100 ml UD PRN IV 08/08/17 01:30 08/12/17 01:29 Enoxaparin Sodium (Lovenox Inj) 40 mg Q24H SQ 08/08/17 10:00 09/07/17 09:59 08/10/17 10:38 40 MG Alprazolam (Xanax Tab) 1 mg BID PRN PO 08/08/17 01:30 09/07/17 01:29 08/10/17 10:43 1 MG Amlodipine Besylate (Norvasc Tab) 5 mg DAILY PO 08/08/17 09:00 09/07/17 08:59 08/10/17 07:51 5 MG Aspirin (Ecotrin Tab) 81 mg DAILY PO 08/08/17 09:00 09/07/17 08:59 08/10/17 07:51 81 MG Baclofen (Lioresal Tab) 10 mg TID PRN PO 08/08/17 01:30 09/07/17 01:29 08/10/17 07:50 10 MG Citalopram Hydrobromide (celeXA TAB) 10 mg DAILY PO 08/08/17 09:00 09/07/17 08:59 08/10/17 07:52 10 MG Clopidogrel Bisulfate (plAVix TAB) 75 mg DAILY PO 08/08/17 09:00 09/07/17 08:59 08/10/17 07:50 75 MG Levothyroxine Sodium (Synthroid Tab) 75 mcg DAILYBB PO 08/08/17 06:30 09/07/17 06:29 08/10/17 06:09 75 MCG Lisinopril (Zestril Tab) 5 mg DAILY PO 08/08/17 09:00 09/07/17 08:59 08/10/17 07:51 5 MG Metoprolol Tartrate (Lopressor Tab) 25 mg BID PO 08/08/17 09:00 09/07/17 08:59 08/10/17 07:51 25 MG Multivitamins (Multivitamin Tab) 1 tab DAILY PO 08/08/17 09:00 09/07/17 08:59 08/10/17 07:52 1 TAB Pantoprazole Sodium (Protonix Tab) 40 mg DAILY PO 08/08/17 09:00 09/07/17 08:59 08/10/17 07:51 40 MG Tramadol HCl (Ultram Tab) 50 mg Q4H PRN PO 08/08/17 01:30 09/07/17 01:29 08/09/17 15:45 50 MG Trazodone HCl (Desyrel Tab) 100 mg HS PO 08/08/17 21:00 09/07/17 20:59 08/09/17 20:41 100 MG Morphine Sulfate (Oramorph Sr Tab) 30 mg Q12 PO 08/08/17 09:00 09/07/17 08:59 08/10/17 08:56 30 MG Miscellaneous Information (Order Awaiting Action) 1 ea QS N/A 08/08/17 08:00 09/07/17 07:59 Ondansetron HCl (Zofran Inj) 4 mg Q6H PRN IV 08/08/17 01:30 09/07/17 01:29 Hydromorphone HCl (Dilaudid Inj) 0.5 mg Q6H PRN IV 08/08/17 01:30 08/22/17 01:29 Polyethylene (Miralax Powder Packet) 17 gm DAILY PRN PO 08/08/17 01:30 09/07/17 01:29 08/08/17 11:31 17 GM Lidocaine (Lidoderm Patch 5%) 1 patch QAM TD 08/09/17 09:00 09/08/17 08:59 08/10/17 07:52 1 PATCH Miscellaneous (Remove Lidoderm Patch) 1 ea DAILY@21 N/A 08/08/17 21:00 09/07/17 20:59 08/09/17 20:41 1 EA Heparin Sodium (Porcine) (Heparin 100 Unit/ml 5ml Flush) 5 ml PRN PRN FLUSH 08/08/17 18:00 09/07/17 17:59 08/10/17 05:32 5 ML Prazosin HCl (Prazosin) 1 mg HS PO 08/09/17 21:00 09/07/17 20:59 08/09/17 20:41 1 MG Vancomycin HCl (Vancomycin Oral Soln) 125 mg Taper Q6H PO 08/09/17 18:00 09/20/17 17:59 08/10/17 11:58 125 MG Raspberry (Raspberry Syrup 5ml Cup) 5 ml Q6H PO 08/09/17 18:00 08/23/17 17:59 08/10/17 11:58 5 ML
[2017-08-10 15:41] VITALS: BP 152/98; PULSE 67; TEMP 36.7; O2SAT 92
[2017-08-10 16:00] VITALS: O2SAT 92
[2017-08-10] MEDS: ACETAMINOPHEN IV 100 ML IV PRN (17:32)
[2017-08-10] MEDS: TRAMADOL HCL 50 MG TAB PO PRN ×2 (19:40→23:54)
[2017-08-10] MEDS: TRAZODONE HCL 100 MG TAB PO SCH (21:47)
[2017-08-10] MEDS: PRAZOSIN HCL 1 MG CAP PO SCH (21:48)
[2017-08-11] VITALS (9 sets, daily range): BP systolic 120–146; BP diastolic 78–96; PULSE 67–84; TEMP 36.6–36.9; O2SAT 91–97
[2017-08-11] MEDS: VANCOMYCIN HCL 125 MG/2.5ML SOLN PO SCH ×4 (05:41→23:55)
[2017-08-11] MEDS: RASPBERRY SYRUP 5 ML UDP PO SCH ×4 (05:41→23:55)
[2017-08-11] MEDS: LEVOTHYROXINE 75 MCG TAB PO SCH (05:46)
[2017-08-11 05:57] LABS: BASO % 0.7 %; BASO ABS # 0.05 K/uL (0-0.2); COMPLETE YES; EOS % 4.2 %; HEMATOCRIT 34.1 % (37-47); IG% 0.1 %; LYMPH % 34.6 %; LYMPH ABS # 2.45 K/uL (1.2-3.4); MEAN CELL VOLUME 88.3 fL (80-100); MEAN CORPUSCULAR HEMOGLOBIN 29.8 pg (25-34); MEAN CORPUSCULAR HGB CONC 33.7 g/dl (32-36); MONO % 7.3 %; NEUT % 53.1 %; PLATELET COUNT 433 K/uL (130-400); RED BLOOD COUNT 3.86 M/uL (4.2-5.4); WHITE BLOOD COUNT 7.08 K/uL (4.8-10.8)
[2017-08-11 06:34] LABS: BUN/CREATININE RATIO 18.2 (10-20); CALCIUM 8.5 mg/dl (8.5-10.1); CREATININE 0.63 mg/dl (0.60-1.20); POTASSIUM 3.7 mmol/L (3.5-5.1)
[2017-08-11] MEDS: PATADAY~ORDER AWAITING ACTION SCH ×3 (08:00→23:42)
[2017-08-11] MEDS: CLOPIDOGREL BISULFATE 75 MG TAB PO SCH (09:28)
[2017-08-11] MEDS: LISINOPRIL 10 MG TAB PO SCH (09:28)
[2017-08-11] MEDS: MULTIVITAMIN TAB PO SCH (09:28)
[2017-08-11] MEDS: BACLOFEN 10 MG TAB PO PRN ×2 (09:28→16:23)
[2017-08-11] MEDS: AMLODIPINE BESYLATE 5 MG TAB PO SCH (09:28)
[2017-08-11] MEDS: CITALOPRAM 20 MG TAB PO SCH (09:29)
[2017-08-11] MEDS: ASPIRIN 81 MG ECTAB PO SCH (09:29)
[2017-08-11] MEDS: PANTOprazole SOD 40 MG TAB PO SCH (09:29)
[2017-08-11] MEDS: LIDODERM (LIDOCAINE) PATCH 5% TD SCH (09:29)
[2017-08-11] MEDS: METOPROLOL TARTRATE 25 MG TAB PO SCH ×2 (09:29→20:36)
[2017-08-11] MEDS: ENOXAPARIN 40 MG/0.4 ML SYR SQ SCH (09:30)
[2017-08-11] MEDS: MoRPHine SULFATE CR 15 MG TAB (MS CONTIN) PO SCH ×2 (09:31→20:35)
[2017-08-11] MEDS: TRAMADOL HCL 50 MG TAB PO PRN ×2 (09:38→19:18)
[2017-08-11] MEDS: ALPRAZOLAM 0.5 MG TAB PO PRN ×2 (11:52→23:55)
--- NOTE | 2017-08-11 12:40 | Progress Note ---
Internal Med Progress Note Date of Service: Aug 11, 2017. Provider Documentation: SUBJECTIVE: Seen and examined at bedside States having lower back pain and Right hip pain Diarrhea resolved Aaron Nausea, vomiting, abd pain, chest pain, SOB No other complaints OBJECTIVE: Vital Signs-as noted below Physical Exam: General Appearance:Moderately built and nourished, no apparent distress Head: normocephalic, Atraumatic Eyes: normal inspection, EOMI, PERRL Neck: supple, Trachea midline Respiratory/Chest: Normal breath sounds, CTA Cardiovascular: S1, S2, No murmur Abdomen/GI:Soft, Non tender, Bowel sounds present Back:tenderness of lumbar spine and right buttock region Extremities/Musculoskelatal:normal inspection, no edema Neurologic/Psych:grossly no focal neurological deficits Skin: normal color, warm Lab data as noted below. ASSESSMENT & PLAN: Patient is a 67 yr old female with history of Chronic Pain, CAD s/p Stent, HTN, Mood disorder presenting with low back pain radiating to the right hip. LOW BACK PAIN, Likely secondary to Sacroiliitis H/O Lumbar Spine surgeries MRI pelvis: 1. No evidence of neoplasm 2. No evidence of occult hip fracture 3. Bilateral sacroiliitis 4. Right-sided rectus femoris, gluteus minimus, and gluteus medius atrophy MRI lumbar spine: : No significant change from the prior 2014 study. Scoliosis and extensive lumbar fusion. No focal disc herniations. No significant spinal stenosis. Minor multilevel foraminal narrowing. On Lidoderm patch, Warm compress continued usual Morphine, PRN Tramadol, Baclofen pain gradually improving still has difficulty with ambulation Discussed with Dr. Lin- Pain management consult for possible injection recommended Patient not a good candidate for SI joint injection due to dental infection under antibiotic treatment Recommend Medrol Dosepak but patient declines due to side effects Continue Ofirmev IV PRN for pain Will need Rehab RIGHT HIP PAIN CT hip: mild arthritis, osteophytes pain management as noted above Dr. Howe consulted, appreciate the recommendations monitor DIARRHEA Currently no diarrhea per staff check c diff stool: pending on empiric Flagyl--> patient reports she has had at least 3 episodes of c diff colitis--> change to Vanco PO QID day 3 Dental Infection completed Augmentin Tx denies pain on her tooth History of CAD s/p Stent continue ASA, Plavix, Metoprolol, Lisinopril HTN Continue increased Lisinopril History of Chronic Pain pain management as noted above Mood Disorder continue Trazodone, Citalopram DVT Px lovenox SQ Disposition lives at home PT/OT ordered, inpatient Rehab upon discharge when accepted Vital Signs: Date Time Temp Pulse Resp B/P (MAP) Pulse Ox O2 Delivery O2 Flow Rate FiO2 08/11/17 10:51 36.9 75 18 144/87 (106) 91 Room Air 08/11/17 08:00 92 Room Air 08/11/17 07:29 36.6 67 18 145/91 (109) 92 Room Air 08/11/17 00:06 36.6 75 20 146/84 (104) 93 Room Air 08/11/17 00:00 Room Air 08/10/17 16:00 92 Room Air 08/10/17 15:41 36.7 67 18 152/98 (116) 92 Room Air Lab Results: Results Past 24 Hours Test 08/11/17 05:34 Range/Units White Blood Count 7.08 4.8-10.8 K/uL Red Blood Count 3.86 4.2-5.4 M/uL Hemoglobin 11.5 12.0-16.0 g/dL Hematocrit 34.1 37-47 % Mean Corpuscular Volume 88.3 80-100 fL Mean Corpuscular Hemoglobin 29.8 25-34 pg Mean Corpuscular Hemoglobin Concent 33.7 32-36 g/dl Platelet Count 433 130-400 K/uL Mean Platelet Volume 9.0 7.4-10.4 fL Neutrophils (%) (Auto) 53.1 % Lymphocytes (%) (Auto) 34.6 % Monocytes (%) (Auto) 7.3 % Eosinophils (%) (Auto) 4.2 % Basophils (%) (Auto) 0.7 % Neutrophils # (Auto) 3.75 1.4-6.5 K/uL Lymphocytes # (Auto) 2.45 1.2-3.4 K/uL Monocytes # (Auto) 0.52 0.11-0.59 K/uL Eosinophils # (Auto) 0.30 0-0.5 K/uL Basophils # (Auto) 0.05 0-0.2 K/uL RDW Standard Deviation 45.6 36.4-46.3 fL RDW Coefficient of Variation 14.2 11.5-14.5 % Immature Granulocyte % (Auto) 0.1 % Immature Granulocyte # (Auto) 0.01 0.00-0.02 K/uL Sodium Level 141 136-145 mmol/L Potassium Level 3.7 3.5-5.1 mmol/L Chloride Level 107 98-107 mmol/L Carbon Dioxide Level 27 21-32 mmol/L Anion Gap 7.0 3-11 mmol/L Blood Urea Nitrogen 12 7-18 mg/dl Creatinine 0.63 0.60-1.20 mg/dl Est Creatinine Clear Calc Drug Dose 91.6 ml/min Estimated GFR () 106.1 Estimated GFR (Non- 91.5 BUN/Creatinine Ratio 18.2 10-20 Random Glucose 87 70-99 mg/dl Calcium Level 8.5 8.5-10.1 mg/dl
[2017-08-11] MEDS: ACETAMINOPHEN IV 100 ML IV PRN (18:33)
[2017-08-11] MEDS: TRAZODONE HCL 100 MG TAB PO SCH (20:36)
[2017-08-11] MEDS: PRAZOSIN HCL 1 MG CAP PO SCH (20:37)
[2017-08-12] MEDS: RASPBERRY SYRUP 5 ML UDP PO SCH ×2 (06:15→11:41)
[2017-08-12] MEDS: VANCOMYCIN HCL 125 MG/2.5ML SOLN PO SCH (06:15)
[2017-08-12] MEDS: LEVOTHYROXINE 75 MCG TAB PO SCH (06:16)
[2017-08-12 06:31] LABS: BUN/CREATININE RATIO 20.9 (10-20); CALCIUM 8.5 mg/dl (8.5-10.1); CREATININE 0.62 mg/dl (0.60-1.20); POTASSIUM 3.6 mmol/L (3.5-5.1)
[2017-08-12 07:34] VITALS: BP 124/72; PULSE 57; TEMP 36.4; O2SAT 93
[2017-08-12 07:45] VITALS: O2SAT 92
[2017-08-12] MEDS: PATADAY~ORDER AWAITING ACTION SCH (07:55)
[2017-08-12] MEDS: BACLOFEN 10 MG TAB PO PRN (07:56)
[2017-08-12] MEDS: METOPROLOL TARTRATE 25 MG TAB PO SCH (07:56)
[2017-08-12] MEDS: CLOPIDOGREL BISULFATE 75 MG TAB PO SCH (07:56)
[2017-08-12] MEDS: MULTIVITAMIN TAB PO SCH (07:56)
[2017-08-12] MEDS: PANTOprazole SOD 40 MG TAB PO SCH (07:56)
[2017-08-12] MEDS: CITALOPRAM 20 MG TAB PO SCH (07:56)
[2017-08-12] MEDS: AMLODIPINE BESYLATE 5 MG TAB PO SCH (07:57)
[2017-08-12] MEDS: LISINOPRIL 10 MG TAB PO SCH (07:57)
[2017-08-12] MEDS: ASPIRIN 81 MG ECTAB PO SCH (07:57)
[2017-08-12] MEDS: LIDODERM (LIDOCAINE) PATCH 5% TD SCH (07:57)
[2017-08-12] MEDS: ALPRAZOLAM 0.5 MG TAB PO PRN (08:04)
[2017-08-12] MEDS: MoRPHine SULFATE CR 15 MG TAB (MS CONTIN) PO SCH (08:04)
[2017-08-12 08:05] VITALS: BP 143/81; PULSE 76; TEMP 36.7; O2SAT 92
[2017-08-12] MEDS: ENOXAPARIN 40 MG/0.4 ML SYR SQ SCH (09:50)
[2017-08-12] MEDS: TRAMADOL HCL 50 MG TAB PO PRN (09:52)
--- NOTE | 2017-08-12 11:39 | Progress Note ---
Internal Med Progress Note Date of Service: Aug 12, 2017. Provider Documentation: SUBJECTIVE: Seen and examined at bedside Lower back pain and Right hip pain is controlled Diarrhea resolved Aaron Nausea, vomiting, abd pain, chest pain, SOB No other complaints OBJECTIVE: Vital Signs-as noted below Physical Exam: General Appearance:Moderately built and nourished, no apparent distress Head: normocephalic, Atraumatic Eyes: normal inspection, EOMI, PERRL Neck: supple, Trachea midline Respiratory/Chest: Normal breath sounds, CTA Cardiovascular: S1, S2, No murmur Abdomen/GI:Soft, Non tender, Bowel sounds present Back:tenderness of lumbar spine and right buttock region Extremities/Musculoskelatal:normal inspection, no edema Neurologic/Psych:grossly no focal neurological deficits Skin: normal color, warm Lab data as noted below. ASSESSMENT & PLAN: Patient is a 67 yr old female with history of Chronic Pain, CAD s/p Stent, HTN, Mood disorder presenting with low back pain radiating to the right hip. LOW BACK PAIN, Likely secondary to Sacroiliitis H/O Lumbar Spine surgeries MRI pelvis: 1. No evidence of neoplasm 2. No evidence of occult hip fracture 3. Bilateral sacroiliitis 4. Right-sided rectus femoris, gluteus minimus, and gluteus medius atrophy MRI lumbar spine: : No significant change from the prior 2014 study. Scoliosis and extensive lumbar fusion. No focal disc herniations. No significant spinal stenosis. Minor multilevel foraminal narrowing. On Lidoderm patch, Warm compress continued usual Morphine, PRN Tramadol, Baclofen pain gradually improving still has difficulty with ambulation, planned to be discharged to rehab Discussed with Dr. Lin- Pain management consult for possible injection recommended Patient not a good candidate for SI joint injection due to dental infection under antibiotic treatment Recommend Medrol Dosepak but patient declines due to side effects On Ofirmev IV PRN for pain RIGHT HIP PAIN CT hip: mild arthritis, osteophytes pain management as noted above Dr. Howe consulted, appreciate the recommendations monitor DIARRHEA Currently no diarrhea per staff check c diff stool: Negative on empiric Flagyl--> patient reports she has had at least 3 episodes of c diff colitis--> change to Vanco PO QID day 4 Will DC Vancomycin Dental Infection completed Augmentin Tx denies pain on her tooth History of CAD s/p Stent continue ASA, Plavix, Metoprolol, Lisinopril HTN Continue increased Lisinopril History of Chronic Pain pain management as noted above Mood Disorder continue Trazodone, Citalopram DVT Px lovenox SQ Disposition lives at home Plan to discharge to Rehab facility today Follow up with your PCP in 1 week after being discharged from [facility] Follow up with your Orthopedic surgeon in 2-4 weeks as recommended Seek immediate medical attention if your symptoms reoccur or worsen Vital Signs: Date Time Temp Pulse Resp B/P (MAP) Pulse Ox O2 Delivery O2 Flow Rate FiO2 08/12/17 09:13 36.7 76 18 92 Room Air 08/12/17 08:05 36.7 76 18 143/81 (101) 92 Room Air 08/12/17 07:45 92 Room Air 08/12/17 07:34 36.4 57 16 124/72 (89) 93 Room Air 08/12/17 00:05 Room Air 08/11/17 23:38 36.8 72 16 120/78 (92) 93 Room Air 08/11/17 20:32 75 146/96 (113) 08/11/17 16:00 97 Room Air 08/11/17 15:13 84 97 08/11/17 14:55 36.8 73 18 131/85 (100) 91 Room Air Lab Results: Results Past 24 Hours Test 08/12/17 05:25 Range/Units Sodium Level 142 136-145 mmol/L Potassium Level 3.6 3.5-5.1 mmol/L Chloride Level 108 98-107 mmol/L Carbon Dioxide Level 28 21-32 mmol/L Anion Gap 7.0 3-11 mmol/L Blood Urea Nitrogen 13 7-18 mg/dl Creatinine 0.62 0.60-1.20 mg/dl Est Creatinine Clear Calc Drug Dose 93.1 ml/min Estimated GFR () 106.6 Estimated GFR (Non- 92.0 BUN/Creatinine Ratio 20.9 10-20 Random Glucose 92 70-99 mg/dl Calcium Level 8.5 8.5-10.1 mg/dl Microbiology Results 08/11/17 C.difficile Toxin B Gene (PCR) - Final, Complete No C. difficile toxin B gene detected
[2017-08-12] MEDS ORDERED: TRAM-10 PO (11:42)
[2017-08-12] MEDS ORDERED: MRPSR30 PO (11:42)
[2017-08-12] MEDS ORDERED: LDDP5 TD (11:42)
--- NOTE | 2017-08-12 11:45 | Discharge Summary ---
Discharge Summary Date of Service Aug 12, 2017. Discharge Summary Admission Date: Aug 08, 2017 at 01:19 Discharge Date: Aug 12, 2017 Discharge Disposition: Rehab Principal Diagnosis: Sacroiliitis Procedures: MRI L-Spine: No significant change from the prior 2014 study. Scoliosis and extensive lumbar fusion. No focal disc herniations. No significant spinal stenosis. Minor multilevel foraminal narrowing. Pelvic MRI: 1. No evidence of neoplasm 2. No evidence of occult hip fracture 3. Bilateral sacroiliitis 4. Right-sided rectus femoris, gluteus minimus, and gluteus medius atrophy Consultations: Orthopedics, Pain management Pending Studies/Follow-Up: Follow up with your PCP in 1 week after being discharged from Rehab facility Follow up with your Orthopedic surgeon in 2-4 weeks as recommended Seek immediate medical attention if your symptoms reoccur or worsen Medication Reconciliation New Medications: Lidocaine (Lidocaine) 1 Patch Tdsy 1 PATCH TD QAM for 3 Days, #3 Continued Medications: Alprazolam (Xanax) 1 Mg Tab 1 MG PO BID PRN for Anxiety/Agitation, TAB Amlodipine Besylate (Amlodipine Besylate) 5 Mg Tab 5 MG PO DAILY, TAB Aspirin (Aspirin Ec) 81 Mg Tab 81 MG PO DAILY Atorvastatin (Lipitor) 40 Mg Tab 40 MG PO DAILY, TAB Baclofen (Baclofen) 10 Mg Tab 10 MG PO TID PRN for Muscle Spasm Calcium Carbonate-Vitamin D W/ (Caltrate 600 Plus) 1 Tab Tab 1 TAB PO BID, TAB Citalopram Hydrobromide (Celexa) 10 Mg Tab 10 MG PO DAILY, TAB Clopidogrel (Plavix) 75 Mg Tab 75 MG PO DAILY, TAB Epinephrine (Epipen 2-Lee) 0.3 Mg Inj 0.3 MG IM UD PRN for ALLERGIC REACTION INJECT INTO OUTTER THIGH FOLLOWING DIRECTIONS ON PACKAGE AND TO GO EMERGENCY ROOM. Levothyroxine Sodium (Levothyroxine Sodium) 75 Mcg Tab 1 TAB PO DAILY Lisinopril (Zestril) 5 Mg Tab 5 MG PO DAILY, TAB Magnesium Oxide (Mg Supplement (Magnesium Oxide) 400 Mg Tab 400 MG PO BID Metoprolol Tartrate (Lopressor) (Lopressor) 25 Mg Tab 1 TAB PO BID for 90 Days, #180 TAB 1 Refill Morphine Sulfate (Morphine Sulfate ER) 30 Mg Tabcr 1 TAB PO Q12 for 3 Days, #6 (This prescription has been renewed) Multivitamin (Multivitamin) Tab 1 TAB PO DAILY, 0 Refills Olopatadine Hydrochloride (Pataday) 37 Drops/2.5 Ml Soln 1 DROPS OPB DAILY for 30 Days, #2.5 ML 3 Refills Pantoprazole (Protonix) 40 Mg Tab 40 MG PO DAILY, TAB Polyethylene Glycol 3350 (Miralax) 1 Pow Pow 17 GM PO DAILY, GM Potassium Ext Rel (Klor-Con) 20 Meq Tabcr 20 MEQ PO BID, TAB Prazosin Hcl (Minipress) 1 Mg Cap 1 MG PO HS Prochlorperazine Maleate (Compazine) 5 Mg Tab 10 MG PO PRN for Nausea, TAB Promethazine HCl (Promethazine HCl) 25 Mg Tab 25 MG PO BID PRN for Nausea Tramadol (Ultram) 50 Mg Tab 50 MG PO Q4H PRN for Pain for 3 Days, #12 TAB (This prescription has been renewed) Trazodone HCl (Trazodone HCl) 100 Mg Tab 100 MG PO HS Admission Information HPI (per Admitting provider): CHIEF COMPLAINT: Right hip pain. HISTORY OF PRESENT ILLNESS: History obtained from patient and records. Medical history significant for recurrent chronic pain, hypertension, history of CAD sp stenting, mood disorder, scoliosis as per records, chronic pain on narcotics. hx Cdif Recent confinement March 2017 for non-ST elevation UT. Patient found to have subtotal proximal LAD stenosis status post PCI. Patient discharged home. Last few days, the patient noted right hip pain w/ radiation to the right lower extremity different from her usual back pain. No recent falls or trauma. No extremity weakness or numbness. No bowel or bladder incontinence. Stools also noted to be loose. No abdominal pain The patient also noted a low grade fever a few days ago. Ongoing course of Augmentin for a sinus infection. Patient was seen at the Emergency Room a few days ago. CAT scan of the abdomen and pelvis showed moderate fecal retention, fibroid uterus, hepatic steatosis, postop changes in the thoracolumbar spine, small left renal calculus. Patient discharged home despite being uncomfortable. Patient returned to the Emergency Room with worsening pain, unable to walk. Physical Exam (per Admitting): PHYSICAL EXAMINATION: VITAL SIGNS: Blood pressure was noted to be 130/78, pulse rate 74, RR 18, temperature is 37.6, sats 92% on room air. GENERAL: Uncomfortable obese, no respiratory distress. SKIN: Normal color, warm. HEENT: Sabattus palpebrae conjunctivae. No ptosis. Dry buccal mucosa. NECK: Short neck, supple. CHEST: Decreased breath sounds. No anterior chest wall tenderness. CV: Regular rate and rhythm. Palpable lower extremity pulses. ABDOMEN: Some distention, nontender. BACK : Tenderness on the right hip. Positive straight leg raise/cross leg raise test. EXTREMITIES: Minimal LE edema, no tenderness. No gross deformities. NEUROLOGIC: No gross focality, coherent. Hospital Course Patient is a 67 yr old female with history of Chronic Pain, CAD s/p Stent, HTN, Mood disorder presenting with low back pain radiating to the right hip. LOW BACK PAIN, Likely secondary to Sacroiliitis H/O Lumbar Spine surgeries MRI pelvis: 1. No evidence of neoplasm 2. No evidence of occult hip fracture 3. Bilateral sacroiliitis 4. Right-sided rectus femoris, gluteus minimus, and gluteus medius atrophy MRI lumbar spine: : No significant change from the prior 2014 study. Scoliosis and extensive lumbar fusion. No focal disc herniations. No significant spinal stenosis. Minor multilevel foraminal narrowing. On Lidoderm patch, Warm compress continued usual Morphine, PRN Tramadol, Baclofen pain gradually improving still has difficulty with ambulation, planned to be discharged to rehab Discussed with Dr. Lin- Pain management consult for possible injection recommended Patient not a good candidate for SI joint injection due to dental infection under antibiotic treatment Recommend Medrol Dosepak but patient declines due to side effects On Ofirmev IV PRN for pain RIGHT HIP PAIN CT hip: mild arthritis, osteophytes pain management as noted above Dr. Howe consulted, appreciate the recommendations monitor DIARRHEA Currently no diarrhea per staff check c diff stool: Negative on empiric Flagyl--> patient reports she has had at least 3 episodes of c diff colitis--> change to Vanco PO QID day 4 Will DC Vancomycin Dental Infection completed Augmentin Tx denies pain on her tooth History of CAD s/p Stent continue ASA, Plavix, Metoprolol, Lisinopril HTN Continue increased Lisinopril History of Chronic Pain pain management as noted above Mood Disorder continue Trazodone, Citalopram DVT Px lovenox SQ Disposition lives at home Plan to discharge to Rehab facility today Follow up with your PCP in 1 week after being discharged from [facility] Follow up with your Orthopedic surgeon in 2-4 weeks as recommended Seek immediate medical attention if your symptoms reoccur or worsen Total time spent on discharge = 37 minutes This includes examination of the patient, discharge planning, medication reconciliation, and communication with other providers. Discharge Instructions Discharge Instructions Date of Service Aug 12, 2017. Admission Reason for Admission: Sepsis Discharge Discharge Diagnosis / Problem: Sacroiliitis Discharge Goals Goal(s): Decrease discomfort, Improve function Activity Recommendations Activity Limitations: resume your previous activity Exercise/Sports Limitations: as tolerated . Instructions / Follow-Up Instructions / Follow-Up Follow up with your PCP in 1 week after being discharged from Rehab facility Follow up with your Orthopedic surgeon in 2-4 weeks as recommended Seek immediate medical attention if your symptoms reoccur or worsen Current Hospital Diet Patient's current hospital diet: AHA Diet (Heart Healthy) Discharge Diet Recommended Diet: AHA Diet (Heart Healthy) Pending Studies Studies pending at discharge: no Medical Emergencies . Who to Call and When: Medical Emergencies: If at any time you feel your situation is an emergency, please call 911 immediately. . Non-Emergent Contact Non-Emergency issues call your: Primary Care Provider, Surgeon Call Non-Emergent contact if: you have a fever, your pain is not controlled, your pain is worsening, your pain is unusual for you, your pain is concerning you, you have any medication questions . . "Provider Documentation" section prepared by Venkatesh Banks. . VTE Core Measure Inpt VTE Proph given/why not?: Enoxaparin (Lovenox)SQ <Electronically signed by Venkatesh Banks MD> Signed: 08/12/17 1144 Signed: The status of this report is Signed * If report status is Draft, the document has not been finalized by the responsible provider.
[2017-08-12 15:15] VITALS: BP 119/75; PULSE 62; TEMP 36.7; O2SAT 92
== END 2017-08-12 17:16 | DRG 552 ==
LOC: EDBD 18:50 → C.EDC 18:51 → C.MED 08-08 01:19 → ENRESERV 08-08 01:52
PROVIDERS: ADMIT Internal Medicine; ATTEND Internal Medicine
DX: M46.1 Sacroiliitis, not elsewhere classified (principal); F11.20 Opioid dependence, uncomplicated; M16.11 Unilateral primary osteoarthritis, right hip; M25.751 Osteophyte, right hip; R19.7 Diarrhea, unspecified; E86.0 Dehydration; M54.16 Radiculopathy, lumbar region; M96.1 Postlaminectomy syndrome, not elsewhere classified; I25.10 Atherosclerotic heart disease of native coronary artery without angina pectoris; F39 Unspecified mood [affective] disorder; I10 Essential (primary) hypertension; E78.5 Hyperlipidemia, unspecified; E03.9 Hypothyroidism, unspecified; F43.21 Adjustment disorder with depressed mood; I25.2 Old myocardial infarction; F43.10 Post-traumatic stress disorder, unspecified; F17.200 Nicotine dependence, unspecified, uncomplicated; Z51.81 Encounter for therapeutic drug level monitoring; Z79.899 Other long term (current) drug therapy; Z79.82 Long term (current) use of aspirin; Z79.02 Long term (current) use of antithrombotics/antiplatelets; Z98.1 Arthrodesis status; Z86.19 Personal history of other infectious and parasitic diseases; Z95.5 Presence of coronary angioplasty implant and graft; Z83.3 Family history of diabetes mellitus; Z82.49 Family history of ischemic heart disease and other diseases of the circulatory system

== ENCOUNTER → 2017-10-09 | Outpatient (CLI) | payer OTHER ==
[~2017-10-09] MED LIST changes: +AMOX875T PO; -ASPEC81 PO; +ASPI81TA28 PO; +ATOR-24 PO; +CIPR-255 PO; +CITA10TA8 PO; -CITA20TA9 PO; +CLOP1TAB15 PO; +ESOM20CA PO; +FENT25DI10 TOP; +HYDR25TA5 PO; +LDDP5 TD; +LISI-729 PO; +LISI10TA PO; -LPT40 PO; -LSN5 PO; -MCRK20 PO; +METR-163 PO; -MORP1TAB12 PO; -MRLP17 PO; +MRPSR30 PO; +MULTCAP94 PO; +NTRSL3 UT; +ONDA8TAB62 SL; +PANT40TA PO; -PLV75 PO; +POLY335019 PO; +POTA-639 PO; +PROM1SUP19 PR; -PRT40 PO; +TRAZ-162 PO; -TRAZ100T29 PO; +TRMCR515 TOP; +ZNF4 PO
== END | disposition home or self-care (01) ==
LOC: C.PATH 14:56
PROVIDERS: ATTEND Dentist Oral and Maxillofacial Pathology
DX: L98.0 Pyogenic granuloma (principal)

== ENCOUNTER 2017-11-03 20:29 | Emergency (ER) | payer OTHER ==
[~2017-11-03] VITALS: Ht 162.6 cm; Wt 90.9 kg
[~2017-11-03 20:29] MED LIST changes: -CIPR-255 PO; -METR-163 PO; -OPTIRAY 320 IV PRN
[2017-11-03 20:35] VITALS: TEMP 36.6; Ht 162.6 cm; Wt 90.9 kg
[2017-11-03] MEDS ORDERED: KETOROLAC TROMETHAMINE 30 MG/ML VIAL IV STA (20:46)
[2017-11-03] MEDS ORDERED: CIPROFLOXACIN 500 MG TAB PO STA (20:46)
[2017-11-03] MEDS ORDERED: METRONIDAZOLE 250 MG TAB PO STA (20:46)
[2017-11-03] MEDS ORDERED: CIPR-255 PO (21:11)
[2017-11-03] MEDS ORDERED: METR-163 PO (21:11)
--- NOTE | 2017-11-03 21:12 | EMERGENCY ROOM VISIT NOTE ---
History Report prepared by Fariba: Finn Al Under the Supervision of: Dr. Michael Chavez D.O. First contact with patient: 20:35 Chief Complaint: ABNORMAL DIAGNOSTIC TESTING Stated Complaint: PAIN IN ABD, [place], SENT BY DOC AFTER CT History of Present Illness The patient is a 67 year old female who presents to the Emergency Room with complaints of severe, constant, left sided abdominal pain beginning last evening. The patient states she has not felt well and has had a fever for 6 days. She reports she was evaluated by an at home nurse earlier today. The patient notes she was evaluated by her PCP and had a CT and chest x-ray that showed mild diverticulitis. She states she has a history of diverticulitis and was septic in the same location a year ago. The patient reports she developed a headache today. Source of History: patient Onset: last evening Position: abdomen (left sided) Symptom Intensity: severe Timing: constant Associated Symptoms: + fevers (6 days ago), + headache (today) Review of Systems See HPI for pertinent positives & negatives. A total of 10 systems reviewed and were otherwise negative. Past Medical & Surgical Medical Problems: (1) Adjustment disorder with depressed mood (2) Cervical spondylolysis (3) Dyslipidemia (4) HTN (hypertension) (5) Hypothyroidism (6) Intra-abdominal abscess (7) Lumbago (8) Post-op pain (9) PTSD (post-traumatic stress disorder) (10) Scoliosis (11) Sepsis Surgical Problems: (1) H/O colonoscopy (2) H/O ovarian cystectomy (3) H/O repair of right rotator cuff (4) H/o right knee meniscus repair (5) H/O spinal fusion (6) S/P appendectomy Family History Cancer Cardiac disorder BROTHER Diabetes mellitus FH: CHF (congestive heart failure) Heart disease Hypertension FATHER MOTHER Lung disease Social History Smoking Status: Never Smoker Alcohol Use: none Drug Use: none Marital Status: single Housing Status: lives alone Occupation Status: retired Current/Historical Medications Scheduled Amlodipine Besylate (Amlodipine Besylate), 5 MG PO DAILY Aspirin (Aspirin Ec), 81 MG PO DAILY Atorvastatin (Lipitor), 40 MG PO DAILY Calcium Carbonate-Vitamin D W/ (Caltrate 600 Plus), 1 TAB PO BID Ciprofloxacin Hcl (Cipro), 500 MG PO BID Citalopram Hydrobromide (Celexa), 10 MG PO DAILY Clopidogrel (Plavix), 75 MG PO DAILY Levothyroxine Sodium (Levothyroxine Sodium), 1 TAB PO DAILY Lisinopril (Zestril), 5 MG PO DAILY Magnesium Oxide (Mg Supplement (Magnesium Oxide), 400 MG PO BID Metoprolol Tartrate (Lopressor) (Lopressor), 1 TAB PO BID Metronidazole (Flagyl), 500 MG PO BID Morphine Sulfate (Morphine Sulfate ER), 1 TAB PO Q12 Multivitamin (Multivitamin), 1 TAB PO DAILY Olopatadine Hydrochloride (Pataday), 1 DROPS OPB DAILY Pantoprazole (Protonix), 40 MG PO DAILY Polyethylene Glycol 3350 (Miralax), 17 GM PO DAILY Potassium Ext Rel (Klor-Con), 20 MEQ PO BID Prazosin Hcl (Minipress), 1 MG PO HS Trazodone HCl (Trazodone HCl), 100 MG PO HS Scheduled PRN Alprazolam (Xanax), 1 MG PO BID PRN for Anxiety/Agitation Baclofen (Baclofen), 10 MG PO TID PRN for Muscle Spasm Epinephrine (Epipen 2-Lee), 0.3 MG IM UD PRN for ALLERGIC REACTION Prochlorperazine Maleate (Compazine), 10 MG PO for Nausea Promethazine HCl (Promethazine HCl), 25 MG PO BID PRN for Nausea Tramadol (Ultram), 50 MG PO Q4H PRN for Pain Allergies Coded Allergies: Latex (Verified Allergy, Intermediate, RASH, 11/03/17) Nickel (Verified Allergy, Intermediate, SEVERE DERMATITIS, 11/03/17) Aspirin (Verified Adverse Reaction, Unknown, bleeding ulcers, 08/07/17) 03/26/17--dr flores inquired about aspirin allergy & reviewd history--pt has had bleeding in past while on anticoagulation, as of 03/26/17--no gi ulcers present & aspirin ok to give Physical Exam Vital Signs Date Time Temp Pulse Resp B/P (MAP) Pulse Ox O2 Delivery O2 Flow Rate FiO2 11/03/17 21:15 88 18 111/78 93 11/03/17 20:35 36.6 88 18 111/78 93 Room Air Physical Exam CONSTITUTIONAL/VITAL SIGNS: Reviewed / noted above. GENERAL: Non-toxic in appearance. INTEGUMENTARY: Warm, dry, and [place]. HEAD: Normocephalic. EYES: without scleral icterus or trauma. ENT/OROPHARYNX: clear and moist. LYMPHADENOPATHY/NECK: Is supple without lymphadenopathy or meningismus. RESPIRATORY: Lungs clear and equal. CARDIOVASCULAR: Regular rate and rhythm. GI/ABDOMEN: Soft and tenderness in her LLQ upon palpation. No organomegaly or pulsatile mass. No rebound or guarding. Normal bowel sounds. EXTREMITIES: Warm and well perfused. BACK: No CVA tenderness. NEUROLOGICAL: Intact without focal deficits. PSYCHIATRIC: normal affect. MUSCULOSKELETAL: Normally developed with good muscle tone. Medical Decision & Procedures Medications Administered Medications (Trade) Dose Ordered Sig/Pablo Route Start Time Stop Time Status Last Admin Dose Admin Ketorolac Tromethamine (Toradol Inj) 30 mg NOW STAT IV 11/03/17 20:46 11/03/17 20:48 DC 11/03/17 21:05 30 MG Ciprofloxacin (Cipro Tab) 500 mg NOW STAT PO 11/03/17 20:46 11/03/17 20:48 DC 11/03/17 21:05 500 MG Metronidazole (Flagyl Tab) 500 mg NOW STAT PO 11/03/17 20:46 11/03/17 20:48 DC 11/03/17 21:05 500 MG ED Course 2039: Previous medical records were reviewed. The patient was evaluated in room C08. A complete history and physical examination was performed. I discussed the results of the physical exam with the patient. I also discussed the treatment plan and discharge instructions. She will receive her medication and then be discharged home. 2045: Ordered Metronidazol 500 mg PO, Ciprofloxacin 500 mg PO, Ketorolac Tromethamine 30 mg IV Medical Decision Differential considered: pancreatitis, hepatitis, or acute cholecystitis, AAA, UTI, pyelonephritis, kidney stones, appendicitis, diverticulitis, shingles, bowel obstruction mesenteric ischemia, intussusception, hernia, testicular torsion, ovarian torsion, ruptured ovarian cyst, ectopic , . This is a 67-year-old female who presents to the ED with a chief complaint of left lower quadrant abdominal pain the patient was sent here after having an outpatient CT scan that showed mild diverticulitis. The patient's exam is consistent with this with left lower quadrant abdominal tenderness. Patient was also complaining of a migraine headache. She was treated with IV Toradol. She was given Cipro and Flagyl by mouth. She was discharged on these. Medication Reconcilliation Current Medication List: was personally reviewed by me Blood Pressure Screening Patient's blood pressure: Normal blood pressure Blood pressure disposition: Did not require urgent referral Impression Primary Impression: Diverticulitis Scribe Attestation The scribe's documentation has been prepared under my direction and personally reviewed by me in its entirety. I confirm that the note above accurately reflects all work, treatment, procedures, and medical decision making performed by me. Departure Information Dispostion Home / Self-Care Prescriptions Metronidazole (Flagyl) 500 Mg Tab 500 MG PO BID, #20 TAB Prov: Michael Chavez D.O. 11/03/17 Ciprofloxacin Hcl (CIPRO) 500 Mg Tab 500 MG PO BID, #20 TAB Prov: Michael Chavez D.O. 11/03/17 Referrals Charanjit Spann M.D.(MARGA) (PCP) Forms HOME CARE DOCUMENTATION FORM, IMPORTANT VISIT INFORMATION, WORK / SCHOOL INSTRUCTIONS Patient Instructions My [facility] Additional Instructions Cipro and Flagyl as prescribed. Follow-up with your doctor for further care and evaluation in 1-2 days. Return to the emergency department for worsening or new symptoms or any concerns. You have been examined and treated today on an emergency basis only. This is not a substitute for, or an effort to provide, complete comprehensive medical care. It is impossible to recognize and treat all injuries or illnesses in a single emergency department visit. It is therefore important that you follow up closely with your doctor. Call as soon as possible for an appointment.
[2017-11-03 21:15] VITALS: BP 111/78; PULSE 88; O2SAT 93
== END 2017-11-03 21:16 | disposition home or self-care (01) ==
LOC: C.EDB 20:31 → C.EDC 21:16
DX: K57.92 Diverticulitis of intestine, part unspecified, without perforation or abscess without bleeding (principal); R51 Headache; I10 Essential (primary) hypertension; F43.21 Adjustment disorder with depressed mood; Z79.899 Other long term (current) drug therapy; E03.9 Hypothyroidism, unspecified

== ENCOUNTER → 2017-11-03 | Outpatient (CLI) | payer OTHER ==
[~2017-11-03] MED LIST changes: -AMOX875T PO; -ESOM20CA PO; -FENT25DI10 TOP; -HYDR25TA5 PO; -LISI10TA PO; -MULTCAP94 PO; -NTRSL3 UT; -ONDA8TAB62 SL; +OPTIRAY 320 IV PRN; -POTA-639 PO; +POTA20TA16 PO; -PROM1SUP19 PR; -TRAZ-162 PO; -TRMCR515 TOP; -ZNF4 PO
--- NOTE | 2017-11-03 19:59 | DIAGNOSTIC IMAGING REPORT ---
ABD/PELVIS IV AND ORAL CONT CT DOSE: 728.49 mGy.cm HISTORY: Pelvic pain. Abdominal pain. AB PAIN, R/O DIVERTICULITIS TECHNIQUE: Multiaxial CT images of the abdomen and pelvis were performed following the use of intravenous and oral contrast. A dose lowering technique was utilized adhering to the principles of ALARA. COMPARISON STUDY: 12/06/2016 FINDINGS: Lung bases are clear. Mild fatty infiltration of liver. Gallbladder is negative for distention. Spleen is uniform in appearance as is the pancreas. Several mid mesenteric and peripancreatic nodes unchanged. No bulky adenopathy. Mild cortical scarring of the kidneys with no evidence for hydronephrosis. Chronic sigmoid and descending colonic diverticulosis. Potential minimal acute diverticular change best seen transaxial image 47. Trace pericolonic infiltrative change. No evidence for abscess collection or obstruction. Small fibroid uterus is again noted and appears stable. Bowel pattern throughout is nonobstructive. IMPRESSION: 1. Minimal diverticulitis distal descending colon at the juncture with the sigmoid. 2. No evidence for abscess collection or obstruction. 3. Trace right colonic infiltrative change. 4. Stable small fibroid uterus. The above report was generated using voice recognition software. It may contain grammatical, syntax or spelling errors. Electronically signed by: Dann Felix M.D. 11/03/2017 7:58 PM Dictated Date/Time: 11/03/2017 7:53 PM
== END | disposition home or self-care (01) ==
LOC: C.CTS 17:38
PROVIDERS: ATTEND Family Medicine
DX: R10.32 Left lower quadrant pain (principal); K57.32 Diverticulitis of large intestine without perforation or abscess without bleeding; D25.9 Leiomyoma of uterus, unspecified

== ENCOUNTER → 2017-11-16 | Outpatient (CLI) | payer OTHER ==
[~2017-11-16] MED LIST changes: +CIPR-255 PO; -LDDP5 TD; +METR-163 PO
[2017-11-16 14:03] LABS: BASO % 0.7 %; BASO ABS # 0.05 K/uL (0-0.2); EOS % 3.6 %; EOS ABS # 0.26 K/uL (0-0.5); HEMATOCRIT 40.6 % (37-47); HEMOGLOBIN 13.7 g/dL (12.0-16.0); IG# 0.02 K/uL (0.00-0.02); LYMPH % 33.8 %; LYMPH ABS # 2.47 K/uL (1.2-3.4); MEAN CELL VOLUME 87.7 fL (80-100); MEAN CORPUSCULAR HEMOGLOBIN 29.6 pg (25-34); MEAN CORPUSCULAR HGB CONC 33.7 g/dl (32-36); MEAN PLATELET VOLUME 9.5 fL (7.4-10.4); MONO % 8.2 %; NEUT % 53.4 %; PLATELET COUNT 230 K/uL (130-400); RED CELL DISTRIBUTION WIDTH CV 14.7 % (11.5-14.5)
[2017-11-16 14:28] LABS: ALBUMIN 3.8 gm/dl (3.4-5.0); ALT/SGPT 27 U/L (12-78); BLOOD UREA NITROGEN 15 mg/dl (7-18); CALCIUM 9.2 mg/dl (8.5-10.1); CARBON DIOXIDE 24 mmol/L (21-32); CREATININE 0.82 mg/dl (0.60-1.20); GLUCOSE 123 mg/dl (70-99); SODIUM 139 mmol/L (136-145)
[2017-11-16 14:31] LABS: ALKALINE PHOSPHATASE 115 U/L (45-117); AST/SGOT 22 U/L (15-37); TOTAL PROTEIN 7.5 gm/dl (6.4-8.2)
== END | disposition home or self-care (01) ==
LOC: C.LAB 11:09
PROVIDERS: ATTEND Family Medicine
DX: R10.32 Left lower quadrant pain (principal); K57.32 Diverticulitis of large intestine without perforation or abscess without bleeding

== ENCOUNTER 2019-01-25 11:05 | Observation (INO) ==
[2019-01-25] MEDS ORDERED: ACETAMINOPHEN 1,000 MG/100 ML VIAL IV ONE (12:14)
[2019-01-25] MEDS ORDERED: METOCLOPRAMIDE HCL INJ 5 MG/ML 2 ML VIAL IV STA (12:14)
[2019-01-25] MEDS ORDERED: FAMOTIDINE 20MG/5ML IV PUSH IV STA (12:14)
[2019-01-25] MEDS ORDERED: SODIUM CHLORIDE 0.9% 1000ML 1,000 ML IV SCH (12:15)
[2019-01-25 12:26] LABS: Basophils # (auto) 0.01 K/uL (0-0.2); Basophils % (auto) 0.1 %; Eosinophils # (auto) 0.01 K/uL (0-0.5); Eosinophils % (auto) 0.1 %; Hematocrit (blood only) 44.1 % (37-47); Hemoglobin 15.7 g/dL (12.0-16.0); Immature Granulocytes # (auto) 0.03 K/uL (0.00-0.02); Immature Granulocytes % (auto) 0.2 %; Mean Corpuscular Hgb Conc 35.6 g/dL (32-36); Mean Corpuscular Volume 85.6 fL (80-100); Mean Platelet Volume 9.4 fL (7.4-10.4); Monocytes # (auto) 0.52 K/uL (0.11-0.59); Monocytes % (auto) 3.8 %; Neutrophils # (auto) 11.13 K/uL (1.4-6.5); Neutrophils % (auto) 81.8 %; Platelet Count 290 K/uL (130-400); RDW Coefficient of Variation 13.2 % (11.5-14.5); RDW Standard Deviation 41.3 fL (36.4-46.3); Red Blood Count 5.15 M/uL (4.2-5.4)
--- NOTE | 2019-01-25 12:40 | XRay Report ---
XR chest 1V portable CLINICAL HISTORY: abd Pain pain COMPARISON STUDY: 04/30/2018 FINDINGS: Mild stable cardia megaly. Matang-a-Uhyf present within the superior vena cava. Lungs are considered clear. Chronic bibasilar interstitial change. IMPRESSION: Chronic change. Mild stable cardiomegaly. No acute process. The above report was generated using voice recognition software. It may contain grammatical, syntax or spelling errors. Electronically signed by: Dann Felix M.D. 01/25/2019 12:38 PM
[2019-01-25 12:43] LABS: Alanine Aminotransferase 42 U/L (12-78); Albumin Level 4.2 gm/dl (3.4-5.0); Aspartate Aminotransferase 22 U/L (15-37); BUN Creatinine Ratio 22.3 (10-20); Bilirubin Direct 0.2 mg/dl (0-0.2); Blood Urea Nitrogen 21 mg/dl (7-18); Calcium 9.5 mg/dl (8.5-10.1); Carbon Dioxide 25 mmol/L (21-32); Chloride 102 mmol/L (98-107); Creatinine Clr Calc Pharmacy 57.8 ml/min; Est GFR (African American) 71.2; Est GFR (Non-African American) 61.5; Glucose 177 mg/dl (70-99); Potassium 3.2 mmol/L (3.5-5.1); Sodium 137 mmol/L (136-145)
[2019-01-25 12:48] LABS: Albumin Globulin Ratio 1.1 (0.9-2); Alkaline Phosphatase 117 U/L (45-117); Bilirubin,Total 0.7 mg/dl (0.2-1); Globulin 3.7 gm/dl (2.5-4.0); Phosphorus 2.5 mg/dl (2.5-4.9); Total Protein 7.9 gm/dl (6.4-8.2); Troponin I < 0.015 ng/ml (0-0.045)
[2019-01-25 13:18] LABS: Magnesium 1.7 mg/dl (1.8-2.4)
[2019-01-25] MEDS ORDERED: PROCHLORPERAZINE 2 ML IV ONE (13:29)
[2019-01-25] MEDS ORDERED: fentaNYL citrate 100 MCG/2 ML VIAL IV STA (13:29)
[2019-01-25] MEDS ORDERED: IOVERSOL 100ml IV PRN (13:52)
[2019-01-25] MEDS ORDERED: MAGNESIUM SULFATE / D5W 1 GM/100 ML BAG IV ONE ×2 (13:54→20:00)
--- NOTE | 2019-01-25 14:08 | CT Scan Report ---
CT SCAN OF THE ABDOMEN AND PELVIS WITH IV CONTRAST CLINICAL HISTORY: Generalized abdominal pain. Nausea and vomiting. COMPARISON STUDY: Abdominal CT dated 05/01/2018. TECHNIQUE: Following the IV administration of 93 cc of Optiray 320, CT scan of the abdomen and pelvi s is performed from the lung bases to the proximal femora. Images are reviewed in the axial, sagittal , and coronal planes. IV contrast was administered without complication. A dose lowering technique wa s utilized adhering to the principles of ALARA. CT DOSE: 925.12 mGycm FINDINGS: Lung bases: The heart is top normal in size and without pericardial effusion. The lung bases are enio r noting bibasilar scarring/atelectasis. There is a small to moderate hiatal hernia. Liver: The contrast-enhanced liver is normal in size, contour, and attenuation. There is no intrahepa tic biliary ductal dilatation. The hepatic veins and portal veins are patent. Gallbladder: Unremarkable. Spleen: Normal in size and attenuation. Pancreas: Unremarkable. Adrenal glands: Unremarkable. Kidneys: The contrast enhanced kidneys demonstrate mild cortical atrophy and are without hydronephros is. The kidneys enhance symmetrically. Scattered subcentimeter cortical hypodensities likely represen t cysts but are too small for definitive characterization. A 5 mm nonobstructing calculus is present in the upper pole of the left kidney. Abdominal vasculature: The abdominal aorta is normal in course and caliber noting moderate to advance d atherosclerotic calcification. Bowel: There is mild colonic diverticulosis without CT evidence of acute diverticulitis. No bowel obs truction is seen. Mild/moderate colonic fecal retention is observed. Question mild wall thickening ve rsus underdistention of the right colon. Faint pericolonic stranding is noted. The appendix is not i dentified and reported surgically absent. Peritoneum: There is no intraperitoneal free air or abdominal ascites. Lymphadenopathy: None. Pelvic viscera: The bladder is normal as imaged. There are uterine fibroids. No adnexal lesion is see n. Large gluteal soft tissue calcifications are noted. Skeletal structures: The skeletal structures are osteopenic. There is moderate to advanced lumbar sac ral spondylosis and scoliosis with evidence of DISH. Extensive postlaminectomy change is seen through out the thoracolumbar spine. Advanced degenerative sclerosis is seen in the sacroiliac joints. No lyt ic or blastic lesions are seen. IMPRESSION: 1. Question a mild nonspecific colitis of the right colon. Clinical correlation will be required. 2. Mild colonic diverticulosis without CT evidence of acute diverticulitis. 3. Fibroid uterus. 4. Additional findings as above. Electronically signed by: Ivan Smith M.D. 01/25/2019 2:06 PM
[2019-01-25] MEDS ORDERED: SODIUM CHLORIDE 0.9% 1000ML 1,000 ML IV ONE (14:20)
[2019-01-25] MEDS ORDERED: SUCRALFATE 1 GM/10 ML UDC PO STA (15:14)
[2019-01-25 15:28] LABS: Appearance Urine Clear (Clear); Bilirubin Urine Negative (Negative); Blood Urine Negative (Negative); Color Urine Yellow; Glucose Urine UA Negative (Negative); Ketones Urine Trace (Negative); Leukocyte Esterase Urine Negative (Negative); Nitrite Urine Negative (Negative); Protein Urine Negative (Negative); Specific Gravity Urine > 1.045 (1.000-1.030); Urobilinogen Urine Negative (Negative); pH Urine 5.5 (4.5-7.5)
[2019-01-25] MEDS ORDERED: PROMETHAZINE HCL 25 MG in SODIUM CHLORIDE 0.9% 50 ML IV STA (15:59)
[2019-01-25] MEDS ORDERED: POTASSIUM CHLORIDE 20 MEQ TABCR PO STA (16:23)
[2019-01-25] MEDS ORDERED: PROMETHAZINE 25 MG/51 ML NSS IV ONE (16:30)
[2019-01-25] MEDS ORDERED: LORazepam 1 MG/2 ML VIAL IV STA (18:09)
--- NOTE | 2019-01-25 18:39 | History & Physical Report ---
Date of Service January 25, 2019 Assessment & Plan (1) Cyclic vomiting syndrome: This is a 68 yr old F with signifcant PMH of CAD, HTN, HLD, Hypothyroidism, Chronic pain syndrome, multiple thoracic/lumbar spinal surgeries, post polio syndrome, hx of PTSD who presents to [facility] secondary to intractable n/v x 1 day. In ED CMP revealed potassium 3.2, BUN 21, creatinine 0.94, glucose 177, mag 1.7 LFTs and lipase WNL She was afebrile, WBC 13k Urinalysis negative for infection CXR w/o acute abn CT abd/pelvis revealed nonspecific mild right-sided colitis otherwise no acute abnormality Patient received IV Reglan, Compazine, Phenergan without significant relief She also received 1 g IV mag for magnesium supplementation IV fentanyl for pain relief IV famotidine and Carafate for history of gastritis With intractable nausea vomiting patient will be admitted to observation Admit to med/surg telemetry given hypertension, tachycardia and prolonged QT Spoke with GI Dr. Connor recommending bowel rest, IV antiemetics and fluids IV NS + 40meq KCL 100cc/hr IV/NE phenergan 25mg q6hr prn IV morphine q4hr prn for pain relief bowel rest/clear liquids as tolerated appreciate GI recommendations (2) Hypomagnesemia: repleted with 1g IV mag in ED will repeat additional 1g check mag in a.m. (3) Hypokalemia: Secondary to GI loss Ordered KCl 40 M EQ po; however patient unable to tolerate will add KCL 40meq per Liter of normal saline repeat bmp in am. (4) CAD (coronary artery disease): No chest pain or shortness of breath No acute EKG changes, troponin negative Continue ASA, statin, metoprolol, lisinopril for risk reduction management (5) Hypertension: Blood pressure currently uncontrolled likely in the setting of abdominal pain, nausea, vomiting Treat pain for better BP control Continue amlodipine, lisinopril and metoprolol Hold HCTZ in setting of volume contraction (6) Chronic pain: Patient was to place fentanyl patch yesterday morning 37 mcg as she removed her previous patch but did not do so secondary to ill feeling continue to hold fentanyl patch and place on PRN IV narcotic including morphine will avoid nsaids given hx of chronic gastritis (7) Dyslipidemia: continue statin (8) Depression: Mood currently stable Patient is on multiple antidepressant/antipsychotics including trazodone, Abilify, amitriptyline, mirapex, BuSpar Symptoms likely secondary to cyclic vomiting syndrome however there is concern for serotonin syndrome given multiple serotonergic drug EKG reveals significant QT prolongation Hold trazodone, Mirapex for now Reduce Amitriptyline from 50 mg daily to 25 mg daily Follow EKG closely would not hesitate to involve psychiatry secondary to multiple psychiatric medication (9) QT prolongation: QTC 624ms on most recent ECG holding trazodone and mirapex, amitriptyline reduced to 25mg consider reducing abilify/consulting psych (10) Restless leg syndrome: -Hold Mirapex secondary to concern for QT prolongation and serotonin syndrome (11) Hypothyroidism: check TSH/T4 Continue levothyroxine (12) Hyperglycemia: bsg 177, pt has not had much to eat or drink no hx of T2DM check A1C as well as accuchecks (13) DVT prophylaxis: -SCDS and SQ heparin, per records hx of PE Disposition: to be determined Follow up: PCP Dr. Spann upon discharge Patient was seen and examined in collaboration with Dr. Manning, please see addendum History of Present Illness Chief Complaint: N/V x 1 day. Primary Care Provider: Charanjit Spann MD This is a 68 yr old F with signifcant PMH of CAD, HTN, HLD, Hypothyroidism, Chronic pain syndrome, multiple thoracic/lumbar spinal surgeries, post polio syndrome, hx of PTSD who presents to [facility] secondary to intractable n/v x 1 day. No family at bedside. She has hx of cyclic vomiting syndrome. Last time > 1 year ago. Complains of chills, sweats, lightheaded, dizziness, nausea, recurrent emesis, blood streaked emesis, diffuse abdominal pain. Abdominal pain is constant, diffuse, described as "aching," nothing makes better or worse. Currently 8/10. Poor appetite, unable to tolerate anything po. No new change in medications except increase in amitriptyline from 25mg to 50mg. States her fentanyl patch was removed yesterday morning and she did not place another one due to feeling so poorly. She has a port a cath in [facility] secondary to her recurrent CVS. She denies recent illness, syncope, fall, documented fever, chest pain, palpitations, sob, diarrhea, dysuria, hematuria, increased urg/freq with urination, hematochezia, melena. Last BM yesterday, normal for her. Allergies Allergy/AdvReac Type Severity Reaction Status Date / Time latex Allergy Intermediate RASH Verified 01/25/19 14:31 nickel Allergy Intermediate SEVERE Verified 01/25/19 14:31 DERMATITIS NSAIDS (Non-Steroidal Allergy Intermediate HX OF Verified 01/25/19 14:31 Anti-Inflamma BLEEDING ULCERS aspirin AdvReac Intermediate bleeding Verified 01/25/19 14:31 ulcers Home Medications Home Medications Medication Instructions Recorded Confirmed Type amitriptyline 50 mg PO HS 12/13/18 01/25/19 History amlodipine 5 mg PO QAM 12/13/18 01/25/19 History aripiprazole 10 mg PO HS 12/13/18 01/25/19 History aspirin 81 mg PO QAM 12/13/18 01/25/19 History atorvastatin 40 mg PO QAM 12/13/18 01/25/19 History buspirone 10 mg PO TID 12/13/18 01/25/19 History hydrochlorothiazide 25 mg PO QAM 12/13/18 01/25/19 History hydroxyzine HCl 50 mg PO HS 12/13/18 01/25/19 History levothyroxine 75 mcg PO QAM 12/13/18 01/25/19 History lisinopril 5 mg PO QAM 12/13/18 01/25/19 History metoprolol tartrate 25 mg PO BID 12/13/18 01/25/19 History tizanidine 4 mg PO Q8H PRN 12/13/18 01/25/19 History fentanyl 1 patch TRANSDERMAL Q72H 01/25/19 01/25/19 History pramipexole 0.125 mg PO HS 01/25/19 01/25/19 History tramadol 50 mg PO TID PRN 01/25/19 01/25/19 History trazodone 200 mg PO HS 01/25/19 01/25/19 History Past Med/Surg History Medical History CAD (coronary artery disease) (Chronic) Hypertension (Chronic) Myocardial Infarction (Chronic) 2 YEARS AGO Pulmonary embolism (Chronic) 2 YEARS OLD (UNSURE OF REASON) Deep vein thrombosis (Chronic) 4 YEARS AGO Migraine (Chronic) Restless leg syndrome (Chronic) Anxiety (Chronic) Depression (Chronic) Post traumatic stress disorder (Chronic) Anemia (Chronic) HX OF Hypothyroidism (Chronic) Colitis (Chronic) Osteoarthritis (Chronic) Degenerative disc disease (Chronic) Hyperlipidemia Surgical History History of heart artery stent (Chronic) 2017- STENT PLACED AT [facility] (DR. DAVILA) History of adenoidectomy (Chronic) History of tonsillectomy (Chronic) History of appendectomy (Chronic) History of colonoscopy (Chronic) History of esophagogastroduodenoscopy (EGD) (Chronic) Fusion of spine (Chronic) LUMBAR History of laminectomy (Chronic) LUMBAR Ovarian cyst (Chronic) X 2 History of anesthesia reaction (Chronic) WOKE UP IN MIDDLE OF SPINAL SURGERIES History of cataract surgery (Chronic) LEFT Family History Other Hypertension Social History Communication Ability: Effective Beliefs That Will Affect Care: None marital status: Current Living Situation: Alone current occupational status: retired Feels Safe at Home: Yes Safety Concerns: Feels Safe At This Time Smoking Status: Never smoker Hx Alcohol Use: No Hx Substance Use: No Review of Systems All systems reviewed & are unremarkable except as noted in HPI & below Physical Exam Vital Signs (Past 24 Hours): Last Vital Signs Temp 37.5 C 01/25/19 11:10 Pulse 115 H 01/25/19 17:37 Resp 26 H 01/25/19 17:37 BP 169/97 H 01/25/19 16:20 Pulse Ox 97 01/25/19 17:37 Physical Exam: Gen: WD/WN, F, ill appearing, +distress secondary to pain,sitting up in bed, answers questions appropriately Head: Normocephalic, Atraumatic Eyes: Sclera normal, no conjunctival injection, PERRLA, EOMI ENT: Gross hearing intact, normal pharynx, mucous membranes moist Neck: supple, no adenopathy, No JVD, no bruit, Resp: Clear to auscultation b/l, no wheeze, rales, rhonchi. 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 Extremities: No edema bilaterally Skin: warm, moist, no rash, negative turgor, cap refill < 2sec Neuro: Alert and oriented x 3, speech normal, good mood/affect, cran nerve 2-12 intact grossly : deferred Results & Data Laboratory Results Short CBC 01/25/19 Range/Units 12:13 WBC 13.60 H (4.8-10.8) K/uL Hgb 15.7 (12.0-16.0) g/dL Hct 44.1 (37-47) % Plt Count 290 (130-400) K/uL BMP 01/25/19 12:13 Sodium 137 Potassium 3.2 L Chloride 102 Carbon Dioxide 25 BUN 21 H Creatinine 0.94 Glucose 177 H Calcium 9.5 Cardiac Enzymes 01/25/19 01/25/19 Range/Units 12:13 15:44 Troponin I < 0.015 < 0.015 (0-0.045) ng/ml Liver Function 01/25/19 Range/Units 12:13 Total Bilirubin 0.7 (0.2-1) mg/dl Direct Bilirubin 0.2 (0-0.2) mg/dl AST 22 (15-37) U/L ALT 42 (12-78) U/L Alkaline Phosphatase 117 (45-117) U/L Albumin 4.2 (3.4-5.0) gm/dl Urine 01/25/19 Range/Units 15:14 Urine Color Yellow Urine Appearance Clear (Clear) Urine pH 5.5 (4.5-7.5) Ur Specific [place] > 1.045 H (1.000-1.030) Urine Protein Negative (Negative) Urine Glucose (UA) Negative (Negative) Diagnostic Findings CT abd/pelvis: IMPRESSION: 1. Question a mild nonspecific colitis of the right colon. Clinical correlation will be required. 2. Mild colonic diverticulosis without CT evidence of acute diverticulitis. 3. Fibroid uterus. 4. Additional findings as above. Medications Administered Ioversol (Optiray 320 100ml) 93 ml IV ONCE PRN PRN Reason: Interaction Checking Stop: 01/29/19 13:51 Last Admin: 01/25/19 13:53 Dose: 93 ml Documented by: [id number] Discontinued Medications Famotidine (Pepcid 20mg Iv Push) 20 mg IV ONE STA Stop: 01/25/19 12:15 Last Admin: 01/25/19 12:24 Dose: 20 mg Documented by: [id number] Fentanyl Citrate (Fentanyl Citrate) 50 mcg IV NOW STA Stop: 01/25/19 13:30 Last Admin: 01/25/19 13:35 Dose: 50 mcg Documented by: [id number] Acetaminophen (Ofirmev) 1,000 mg in 100 mls @ 400 mls/hr IV NOW ONE Stop: 01/25/19 12:28 Last Infusion: 01/25/19 12:52 Dose: 0 mls/hr Documented by: [id number] Admin: 01/25/19 12:24 Dose: 400 mls/hr Documented by: [id number] Sodium Chloride (Nss 1000ml) 1,000 mls @ 999 mls/hr IV .Q1H1M COLT Stop: 01/25/19 13:15 Last Infusion: 01/25/19 13:26 Dose: 0 mls/hr Documented by: [id number] Admin: 01/25/19 12:24 Dose: 999 mls/hr Documented by: [id number] Prochlorperazine (Compazine) 2 mls @ 1 mls/min IV ONE ONE Stop: 01/25/19 13:30 Last Admin: 01/25/19 13:35 Dose: 1 mls/min Documented by: [id number] Magnesium Sulfate/Dextrose (Magnesium Sulfate / D5w) 1 gm in 100 mls @ 100 mls/hr IV ONE ONE Stop: 01/25/19 14:53 Last Infusion: 01/25/19 15:44 Dose: 0 mls/hr Documented by: [id number] Admin: 01/25/19 14:22 Dose: 100 mls/hr Documented by: [id number] Sodium Chloride (Nss 1000ml) 1,000 mls @ 999 mls/hr IV .Q1H1M ONE Stop: 01/25/19 15:20 Last Infusion: 01/25/19 16:04 Dose: 0 mls/hr Documented by: [id number] Admin: 01/25/19 14:47 Dose: 999 mls/hr Documented by: [id number] Promethazine HCl 25 mg/ Sodium (Chloride) 51 mls @ 204 mls/hr IV NOW STA Stop: 01/25/19 16:13 Last Admin: 01/25/19 16:33 Dose: Not Given Documented by: [id number] Lorazepam (Ativan) 1 mg in 2 mls @ 2 mls/min IV NOW STA Stop: 01/25/19 18:10 Last Admin: 01/25/19 18:33 Dose: 2 mls/min Documented by: [id number] Metoclopramide HCl (Reglan) 10 mg IV NOW STA Stop: 01/25/19 12:15 Last Admin: 01/25/19 12:24 Dose: 10 mg Documented by: [id number] Promethazine HCl (Phenergan) Confirm Administered Dose 25 mg IV .[facility] Stop: 01/25/19 16:31 Last Admin: 01/25/19 16:33 Dose: 25 mg Documented by: [id number] ECG Rate (beats per minute): 101 Rhythm: sinus tachycardia Findings: + prolonged QT Code Status & VTE Plan Code Status Full Code VTE Prophylaxis Plan VTE Prophylaxis will be ordered: Yes Supervising Physician Co-Signing Physician Notes I have seen and examined the patient and have discussed the case with the provider above. I agree with the assessment and plan as stated. DO Nigel
[2019-01-25] MEDS ORDERED: PROMETHAZINE HCL 25 MG SUPP PR PRN (19:15)
[2019-01-25] MEDS ORDERED: POLYETHYLENE (MIRALAX) 17 GM PACK PO PRN (19:15)
[2019-01-25] MEDS ORDERED: MAGNESIUM HYDROXIDE SUSP 30 ML UDC PO PRN (19:15)
[2019-01-25] MEDS ORDERED: ALUMINUM/MAGNESIUM SUSP 30 ML UDC PO PRN (19:15)
[2019-01-25] MEDS ORDERED: TRAMADOL HCL 50 MG TABLET PO PRN (19:15)
[2019-01-25] MEDS ORDERED: ACETAMINOPHEN 325 MG TAB PO PRN (19:15)
[2019-01-25] MEDS: MoRPHine SULFATE 4 MG/ML 1 ML CARP\\VIAL IV PRN (19:23)
[2019-01-25] MEDS: POTASSIUM CHLORIDE 40 MEQ in SODIUM CHLORIDE 0.9% 1000ML 1,000 ML IV SCH (19:47)
--- NOTE | 2019-01-25 20:40 | Emergency Department Note ---
Entered by Maria Ines Tom acting as a scribe for Adan Baxter MD History of Present Illness General Chief complaint: Vomiting Stated complaint: vomit Time Seen by Provider: 01/25/19 12:12 Source: patient Limitations: no limitations History of Present Illness Provider complaint: nausea and vomiting Onset (ago): day(s) 4 Maximum Pain Intensity: 8 Associated symptoms: + denies other symptoms (diarrhea, congestion ), + fever/chills (fevers no chills ) and + other (+abdominal pain, +dizziness ); no cough Treatments prior to arrival: none The patient is a 68 year old female who presents to the Emergency Room with complaints of nausea and vomiting that began 4 days prior to arrival. The patient states that she has fevers (highest last night at 101), dizziness, and abdominal pain. The patient denies any chills, diarrhea, cough, or congestion. The patient states that she has a history of nausea and vomiting and states that her last episode like this was last year. The patient states that her symptoms feel like her previous episode. The patient denies taking any nausea medication on a daily basis and states that she didn't take any medications prior to arrival. The patient states that she still has her gallbladder. The patient denies taking any blood thinners. The patient denies any allergies to IV contrast. Home Medications Home Medications Medication Instructions Recorded Confirmed Type amitriptyline 50 mg PO HS 12/13/18 01/25/19 History amlodipine 5 mg PO QAM 12/13/18 01/25/19 History aripiprazole 10 mg PO HS 12/13/18 01/25/19 History aspirin 81 mg PO QAM 12/13/18 01/25/19 History atorvastatin 40 mg PO QAM 12/13/18 01/25/19 History buspirone 10 mg PO TID 12/13/18 01/25/19 History hydrochlorothiazide 25 mg PO QAM 12/13/18 01/25/19 History hydroxyzine HCl 50 mg PO HS 12/13/18 01/25/19 History levothyroxine 75 mcg PO QAM 12/13/18 01/25/19 History lisinopril 5 mg PO QAM 12/13/18 01/25/19 History metoprolol tartrate 25 mg PO BID 12/13/18 01/25/19 History tizanidine 4 mg PO Q8H PRN 12/13/18 01/25/19 History fentanyl 1 patch TRANSDERMAL Q72H 01/25/19 01/25/19 History pramipexole 0.125 mg PO HS 01/25/19 01/25/19 History tramadol 50 mg PO TID PRN 01/25/19 01/25/19 History trazodone 200 mg PO HS 01/25/19 01/25/19 History Allergies Allergy/AdvReac Type Severity Reaction Status Date / Time latex Allergy Intermediate RASH Verified 01/25/19 14:31 nickel Allergy Intermediate SEVERE Verified 01/25/19 14:31 DERMATITIS NSAIDS (Non-Steroidal Allergy Intermediate HX OF Verified 01/25/19 14:31 Anti-Inflamma BLEEDING ULCERS aspirin AdvReac Intermediate bleeding Verified 01/25/19 14:31 ulcers Past Med/Surg History Medical History CAD (coronary artery disease) (Chronic) Hypertension (Chronic) Myocardial Infarction (Chronic) 2 YEARS AGO Pulmonary embolism (Chronic) 2 YEARS OLD (UNSURE OF REASON) Deep vein thrombosis (Chronic) 4 YEARS AGO Migraine (Chronic) Restless leg syndrome (Chronic) Anxiety (Chronic) Depression (Chronic) Post traumatic stress disorder (Chronic) Anemia (Chronic) HX OF Hypothyroidism (Chronic) Colitis (Chronic) Osteoarthritis (Chronic) Degenerative disc disease (Chronic) Hyperlipidemia Surgical History History of heart artery stent (Chronic) 2017- STENT PLACED AT [facility] (DR. DAVILA) History of adenoidectomy (Chronic) History of tonsillectomy (Chronic) History of appendectomy (Chronic) History of colonoscopy (Chronic) History of esophagogastroduodenoscopy (EGD) (Chronic) Fusion of spine (Chronic) LUMBAR History of laminectomy (Chronic) LUMBAR Ovarian cyst (Chronic) X 2 History of anesthesia reaction (Chronic) WOKE UP IN MIDDLE OF SPINAL SURGERIES History of cataract surgery (Chronic) LEFT Family History Other Hypertension Social History Preferred Language: Macedonian Communication Ability: Effective Hospice Team Lead Required: No Beliefs That Will Affect Care: None Current Living Situation: Alone current occupational status: retired Feels Safe at Home: Yes Safety Concerns: Feels Safe At This Time Smoking Status: Never smoker Hx Alcohol Use: No Hx Substance Use: No Review of Systems See HPI for pertinent positives & negatives. and A total of 10 systems reviewed and were otherwise negative See HPI for pertinent positives & negatives. A total of 10 systems reviewed and were otherwise negative. Physical Exam Vital Signs Vital Signs - 24 hr 01/25/19 11:09 01/25/19 11:10 01/25/19 11:19 Temperature 37.5 C Temperature Source Oral Sepsis Recent Fever Within 48 Hours No Sepsis New/Unexplained Change in Mental Status No Sepsis Action Taken by Nursing No Action Required Pulse Rate 108 H 112 H 112 H Pulse Rate [Apical] Pulse Rate [Finger] Pulse Rate from SpO2 Sensor 112 H 112 H Pulse Rhythm Regular Pulse Strength [Finger] Respiratory Rate 14 18 18 Respiratory Effort / Characteristics Non-Labored Spontaneous Respiratory Depth Normal Respiratory Pattern Regular Blood Pressure 151/87 H 151/87 H Blood Pressure [Left Arm] Blood Pressure [Right Arm] Blood Pressure Mean 108 108 Blood Pressure Mean [Left Arm] Blood Pressure Mean [Right Arm] Blood Pressure Position [Left Arm] Blood Pressure Position [Right Arm] Pulse Oximetry 96 96 96 Oxygen Delivery Method Room Air 01/25/19 11:20 01/25/19 11:30 01/25/19 11:40 Temperature Temperature Source Sepsis Recent Fever Within 48 Hours Sepsis New/Unexplained Change in Mental Status Sepsis Action Taken by Nursing Pulse Rate 113 H 108 H 111 H Pulse Rate [Apical] Pulse Rate [Finger] Pulse Rate from SpO2 Sensor 111 H 111 H 113 H Pulse Rhythm Pulse Strength [Finger] Respiratory Rate 14 14 17 Respiratory Effort / Characteristics Respiratory Depth Respiratory Pattern Blood Pressure Blood Pressure [Left Arm] Blood Pressure [Right Arm] Blood Pressure Mean Blood Pressure Mean [Left Arm] Blood Pressure Mean [Right Arm] Blood Pressure Position [Left Arm] Blood Pressure Position [Right Arm] Pulse Oximetry 97 95 97 Oxygen Delivery Method 01/25/19 11:50 01/25/19 12:00 01/25/19 12:10 Temperature Temperature Source Sepsis Recent Fever Within 48 Hours Sepsis New/Unexplained Change in Mental Status Sepsis Action Taken by Nursing Pulse Rate 117 H 112 H 113 H Pulse Rate [Apical] Pulse Rate [Finger] Pulse Rate from SpO2 Sensor 117 H 112 H 113 H Pulse Rhythm Pulse Strength [Finger] Respiratory Rate 16 20 16 Respiratory Effort / Characteristics Respiratory Depth Respiratory Pattern Blood Pressure Blood Pressure [Left Arm] Blood Pressure [Right Arm] Blood Pressure Mean Blood Pressure Mean [Left Arm] Blood Pressure Mean [Right Arm] Blood Pressure Position [Left Arm] Blood Pressure Position [Right Arm] Pulse Oximetry 95 95 94 Oxygen Delivery Method 01/25/19 12:20 01/25/19 12:30 01/25/19 12:40 Temperature Temperature Source Sepsis Recent Fever Within 48 Hours Sepsis New/Unexplained Change in Mental Status Sepsis Action Taken by Nursing Pulse Rate 111 H 116 H 111 H Pulse Rate [Apical] Pulse Rate [Finger] Pulse Rate from SpO2 Sensor 111 H 119 H 108 H Pulse Rhythm Pulse Strength [Finger] Respiratory Rate 18 12 17 Respiratory Effort / Characteristics Respiratory Depth Respiratory Pattern Blood Pressure Blood Pressure [Left Arm] Blood Pressure [Right Arm] Blood Pressure Mean Blood Pressure Mean [Left Arm] Blood Pressure Mean [Right Arm] Blood Pressure Position [Left Arm] Blood Pressure Position [Right Arm] Pulse Oximetry 96 98 95 Oxygen Delivery Method 01/25/19 12:50 01/25/19 13:00 01/25/19 13:12 Temperature Temperature Source Sepsis Recent Fever Within 48 Hours Sepsis New/Unexplained Change in Mental Status Sepsis Action Taken by Nursing Pulse Rate 113 H 104 H 93 H Pulse Rate [Apical] Pulse Rate [Finger] Pulse Rate from SpO2 Sensor 112 H Pulse Rhythm Pulse Strength [Finger] Respiratory Rate 13 18 18 Respiratory Effort / Characteristics Respiratory Depth Respiratory Pattern Blood Pressure Blood Pressure [Left Arm] Blood Pressure [Right Arm] Blood Pressure Mean Blood Pressure Mean [Left Arm] Blood Pressure Mean [Right Arm] Blood Pressure Position [Left Arm] Blood Pressure Position [Right Arm] Pulse Oximetry 97 Oxygen Delivery Method 01/25/19 13:20 01/25/19 13:30 01/25/19 13:53 Temperature Temperature Source Sepsis Recent Fever Within 48 Hours Sepsis New/Unexplained Change in Mental Status Sepsis Action Taken by Nursing Pulse Rate 112 H 108 H 110 H Pulse Rate [Apical] Pulse Rate [Finger] Pulse Rate from SpO2 Sensor Pulse Rhythm Pulse Strength [Finger] Respiratory Rate 12 20 Respiratory Effort / Characteristics Respiratory Depth Respiratory Pattern Blood Pressure Blood Pressure [Left Arm] Blood Pressure [Right Arm] Blood Pressure Mean Blood Pressure Mean [Left Arm] Blood Pressure Mean [Right Arm] Blood Pressure Position [Left Arm] Blood Pressure Position [Right Arm] Pulse Oximetry Oxygen Delivery Method 01/25/19 14:00 01/25/19 14:04 01/25/19 14:10 Temperature Temperature Source Sepsis Recent Fever Within 48 Hours Sepsis New/Unexplained Change in Mental Status Sepsis Action Taken by Nursing Pulse Rate 106 H 107 H 108 H Pulse Rate [Apical] Pulse Rate [Finger] Pulse Rate from SpO2 Sensor 106 H 106 H 109 H Pulse Rhythm Pulse Strength [Finger] Respiratory Rate 18 21 26 H Respiratory Effort / Characteristics Respiratory Depth Respiratory Pattern Blood Pressure 163/88 H Blood Pressure [Left Arm] Blood Pressure [Right Arm] Blood Pressure Mean 113 Blood Pressure Mean [Left Arm] Blood Pressure Mean [Right Arm] Blood Pressure Position [Left Arm] Blood Pressure Position [Right Arm] Pulse Oximetry 96 95 94 Oxygen Delivery Method 01/25/19 14:20 01/25/19 14:30 01/25/19 14:40 Temperature Temperature Source Sepsis Recent Fever Within 48 Hours Sepsis New/Unexplained Change in Mental Status Sepsis Action Taken by Nursing Pulse Rate 103 H 106 H 107 H Pulse Rate [Apical] Pulse Rate [Finger] Pulse Rate from SpO2 Sensor 104 H 107 H 98 H Pulse Rhythm Pulse Strength [Finger] Respiratory Rate 14 16 18 Respiratory Effort / Characteristics Respiratory Depth Respiratory Pattern Blood Pressure Blood Pressure [Left Arm] Blood Pressure [Right Arm] Blood Pressure Mean Blood Pressure Mean [Left Arm] Blood Pressure Mean [Right Arm] Blood Pressure Position [Left Arm] Blood Pressure Position [Right Arm] Pulse Oximetry 97 96 95 Oxygen Delivery Method 01/25/19 14:50 01/25/19 15:00 01/25/19 15:13 Temperature Temperature Source Sepsis Recent Fever Within 48 Hours Sepsis New/Unexplained Change in Mental Status Sepsis Action Taken by Nursing Pulse Rate 103 H 106 H Pulse Rate [Apical] Pulse Rate [Finger] Pulse Rate from SpO2 Sensor 100 H 107 H 108 H Pulse Rhythm Pulse Strength [Finger] Respiratory Rate 20 27 H Respiratory Effort / Characteristics Respiratory Depth Respiratory Pattern Blood Pressure Blood Pressure [Left Arm] Blood Pressure [Right Arm] Blood Pressure Mean Blood Pressure Mean [Left Arm] Blood Pressure Mean [Right Arm] Blood Pressure Position [Left Arm] Blood Pressure Position [Right Arm] Pulse Oximetry 97 96 94 Oxygen Delivery Method 01/25/19 15:16 01/25/19 15:20 01/25/19 15:30 Temperature Temperature Source Sepsis Recent Fever Within 48 Hours Sepsis New/Unexplained Change in Mental Status Sepsis Action Taken by Nursing Pulse Rate 110 H 110 H Pulse Rate [Apical] 105 H Pulse Rate [Finger] Pulse Rate from SpO2 Sensor 109 H 111 H Pulse Rhythm Pulse Strength [Finger] Respiratory Rate 20 26 H 25 H Respiratory Effort / Characteristics Non-Labored Respiratory Depth Normal Respiratory Pattern Blood Pressure Blood Pressure [Left Arm] 163/88 H Blood Pressure [Right Arm] Blood Pressure Mean Blood Pressure Mean [Left Arm] 113 Blood Pressure Mean [Right Arm] Blood Pressure Position [Left Arm] Blood Pressure Position [Right Arm] Pulse Oximetry 97 96 98 Oxygen Delivery Method Room Air 01/25/19 15:40 01/25/19 15:50 01/25/19 16:00 Temperature Temperature Source Sepsis Recent Fever Within 48 Hours Sepsis New/Unexplained Change in Mental Status Sepsis Action Taken by Nursing Pulse Rate 107 H 115 H 110 H Pulse Rate [Apical] Pulse Rate [Finger] Pulse Rate from SpO2 Sensor 107 H 115 H 110 H Pulse Rhythm Pulse Strength [Finger] Respiratory Rate 21 24 25 H Respiratory Effort / Characteristics Respiratory Depth Respiratory Pattern Blood Pressure 169/97 H Blood Pressure [Left Arm] Blood Pressure [Right Arm] Blood Pressure Mean 121 Blood Pressure Mean [Left Arm] Blood Pressure Mean [Right Arm] Blood Pressure Position [Left Arm] Blood Pressure Position [Right Arm] Pulse Oximetry 97 98 97 Oxygen Delivery Method 01/25/19 16:10 01/25/19 16:20 01/25/19 16:30 Temperature Temperature Source Sepsis Recent Fever Within 48 Hours Sepsis New/Unexplained Change in Mental Status Sepsis Action Taken by Nursing Pulse Rate 112 H 115 H Pulse Rate [Apical] Pulse Rate [Finger] Pulse Rate from SpO2 Sensor 112 H 116 H 114 H Pulse Rhythm Pulse Strength [Finger] Respiratory Rate 12 19 19 Respiratory Effort / Characteristics Respiratory Depth Respiratory Pattern Blood Pressure 169/97 H Blood Pressure [Left Arm] Blood Pressure [Right Arm] Blood Pressure Mean 121 Blood Pressure Mean [Left Arm] Blood Pressure Mean [Right Arm] Blood Pressure Position [Left Arm] Blood Pressure Position [Right Arm] Pulse Oximetry 97 96 96 Oxygen Delivery Method 01/25/19 16:40 01/25/19 16:50 01/25/19 17:00 Temperature Temperature Source Sepsis Recent Fever Within 48 Hours Sepsis New/Unexplained Change in Mental Status Sepsis Action Taken by Nursing Pulse Rate 113 H 120 H 118 H Pulse Rate [Apical] Pulse Rate [Finger] Pulse Rate from SpO2 Sensor 105 H 120 H 118 H Pulse Rhythm Pulse Strength [Finger] Respiratory Rate 20 19 20 Respiratory Effort / Characteristics Respiratory Depth Respiratory Pattern Blood Pressure 191/110 H Blood Pressure [Left Arm] Blood Pressure [Right Arm] Blood Pressure Mean 137 Blood Pressure Mean [Left Arm] Blood Pressure Mean [Right Arm] Blood Pressure Position [Left Arm] Blood Pressure Position [Right Arm] Pulse Oximetry 94 92 95 Oxygen Delivery Method 01/25/19 17:10 01/25/19 17:20 01/25/19 17:30 Temperature Temperature Source Sepsis Recent Fever Within 48 Hours Sepsis New/Unexplained Change in Mental Status Sepsis Action Taken by Nursing Pulse Rate 113 H 107 H 110 H Pulse Rate [Apical] Pulse Rate [Finger] Pulse Rate from SpO2 Sensor 112 H 108 H 110 H Pulse Rhythm Pulse Strength [Finger] Respiratory Rate 15 21 19 Respiratory Effort / Characteristics Respiratory Depth Respiratory Pattern Blood Pressure Blood Pressure [Left Arm] Blood Pressure [Right Arm] Blood Pressure Mean Blood Pressure Mean [Left Arm] Blood Pressure Mean [Right Arm] Blood Pressure Position [Left Arm] Blood Pressure Position [Right Arm] Pulse Oximetry 96 96 96 Oxygen Delivery Method 01/25/19 17:37 01/25/19 17:40 01/25/19 17:50 Temperature Temperature Source Sepsis Recent Fever Within 48 Hours Sepsis New/Unexplained Change in Mental Status Sepsis Action Taken by Nursing Pulse Rate 112 H 113 H Pulse Rate [Apical] 115 H Pulse Rate [Finger] Pulse Rate from SpO2 Sensor 112 H 113 H Pulse Rhythm Pulse Strength [Finger] Respiratory Rate 26 H 15 19 Respiratory Effort / Characteristics Respiratory Depth Shallow Respiratory Pattern Tachypnea Blood Pressure Blood Pressure [Left Arm] Blood Pressure [Right Arm] Blood Pressure Mean Blood Pressure Mean [Left Arm] Blood Pressure Mean [Right Arm] Blood Pressure Position [Left Arm] Blood Pressure Position [Right Arm] Pulse Oximetry 97 97 96 Oxygen Delivery Method Room Air 01/25/19 18:00 01/25/19 18:33 01/25/19 18:34 Temperature Temperature Source Sepsis Recent Fever Within 48 Hours Sepsis New/Unexplained Change in Mental Status Sepsis Action Taken by Nursing Pulse Rate 113 H 117 H 117 H Pulse Rate [Apical] Pulse Rate [Finger] Pulse Rate from SpO2 Sensor 114 H 117 H 117 H Pulse Rhythm Pulse Strength [Finger] Respiratory Rate 16 18 15 Respiratory Effort / Characteristics Respiratory Depth Respiratory Pattern Blood Pressure 200/115 H 186/112 H Blood Pressure [Left Arm] Blood Pressure [Right Arm] Blood Pressure Mean 143 136 Blood Pressure Mean [Left Arm] Blood Pressure Mean [Right Arm] Blood Pressure Position [Left Arm] Blood Pressure Position [Right Arm] Pulse Oximetry 96 97 96 Oxygen Delivery Method 01/25/19 18:40 01/25/19 19:15 01/25/19 21:24 Temperature 36.8 C Temperature Source Oral Sepsis Recent Fever Within 48 Hours Sepsis New/Unexplained Change in Mental Status Sepsis Action Taken by Nursing Pulse Rate 112 H 112 H Pulse Rate [Apical] 112 H 116 H Pulse Rate [Finger] Pulse Rate from SpO2 Sensor 113 H Pulse Rhythm Pulse Strength [Finger] Respiratory Rate 27 H 18 Respiratory Effort / Characteristics Respiratory Depth Respiratory Pattern Blood Pressure 189/100 H Blood Pressure [Left Arm] 184/112 H 189/107 H Blood Pressure [Right Arm] Blood Pressure Mean 129 Blood Pressure Mean [Left Arm] 136 134 Blood Pressure Mean [Right Arm] Blood Pressure Position [Left Arm] Right Lateral Blood Pressure Position [Right Arm] Pulse Oximetry 96 96 Oxygen Delivery Method Room Air 01/25/19 23:00 01/25/19 23:45 Temperature 36.4 C L Temperature Source Oral Sepsis Recent Fever Within 48 Hours Sepsis New/Unexplained Change in Mental Status Sepsis Action Taken by Nursing Pulse Rate 113 H Pulse Rate [Apical] Pulse Rate [Finger] 101 H Pulse Rate from SpO2 Sensor Pulse Rhythm Pulse Strength [Finger] Normal Respiratory Rate 19 Respiratory Effort / Characteristics Respiratory Depth Normal Respiratory Pattern Blood Pressure Blood Pressure [Left Arm] Blood Pressure [Right Arm] 144/87 H Blood Pressure Mean Blood Pressure Mean [Left Arm] Blood Pressure Mean [Right Arm] 106 Blood Pressure Position [Left Arm] Blood Pressure Position [Right Arm] Lying Pulse Oximetry 93 Oxygen Delivery Method Room Air GENERAL: Awake, alert, uncomfortable-appearing, in no distress HENT: Normocephalic, atraumatic. Oropharynx with dry mucous membranes and otherwise unremarkable. EYES: Normal conjunctiva. Sclera non-icteric. NECK: Supple. No nuchal rigidity. FROM. No JVD. RESPIRATORY: Clear to auscultation. CARDIAC: Tachycardic rate, normal rhythm. Extremities warm and well perfused. Pulses equal. ABDOMEN: Soft, non-distended. Generalized tenderness to palpation. No rebound or guarding. No masses. RECTAL: Deferred. MUSCULOSKELETAL: Chest examination reveals no tenderness. The back is symmetrical on inspection without obvious abnormality. There is no CVA tenderness to palpation. No joint edema. LOWER EXTREMITIES: Calves are equal size bilaterally and non-tender. No edema. No discoloration. NEURO: Normal sensorium. No sensory or motor deficits noted. SKIN: No rash or jaundice noted. Course 1214: The patient was evaluated in room B10, and a complete history and physical examination were performed. 1518: I discussed the patient's case with Dr. Tracee Weber who will evaluate the patient for further hospitalization. Consultations Consultation #1: Dr. Tracee Weber Time: 15:18 Administered Medications Amitriptyline HCl (Elavil) 25 mg PO HS [facility] Stop: 02/24/19 20:59 Last Admin: 01/25/19 22:12 Dose: Not Given Documented by: [id number] Aripiprazole (Abilify) 10 mg PO HS [facility] Stop: 02/24/19 20:59 Last Admin: 01/25/19 22:12 Dose: Not Given Documented by: [id number] Buspirone HCl (Buspar) 10 mg PO TID [facility] Stop: 02/24/19 20:59 Last Admin: 01/25/19 22:12 Dose: Not Given Documented by: [id number] Hydroxyzine HCl (Vistaril) 50 mg PO [facility] Stop: 02/24/19 20:59 Last Admin: 01/25/19 22:12 Dose: Not Given Documented by: [id number] Promethazine HCl 25 mg/ Sodium (Chloride) 51 mls @ 204 mls/hr IV Q6H PRN PRN Reason: Nausea And Vomiting Stop: 02/24/19 19:14 Last Infusion: 01/25/19 21:23 Dose: 0 mls/hr Documented by: [id number] Admin: 01/25/19 21:04 Dose: 204 mls/hr Documented by: [id number] Potassium Chloride 40 meq/ (Sodium Chloride) 1,020 mls @ 100 mls/hr IV .[id number] [facility] Stop: 02/24/19 19:14 Last Admin: 01/25/19 19:47 Dose: 100 mls/hr Documented by: [id number] Metoprolol Tartrate (Lopressor) 25 mg PO BID [facility] Stop: 02/24/19 20:59 Last Admin: 01/25/19 22:12 Dose: Not Given Documented by: [id number] Morphine Sulfate (Morphine Sulfate) 4 mg IV Q4H PRN PRN Reason: Severe Pain Stop: 02/08/19 19:05 Last Admin: 01/25/19 19:23 Dose: 4 mg Documented by: [id number] Discontinued Medications Famotidine (Pepcid 20mg Iv Push) 20 mg IV ONE STA Stop: 01/25/19 12:15 Last Admin: 01/25/19 12:24 Dose: 20 mg Documented by: [id number] Fentanyl Citrate (Fentanyl Citrate) 50 mcg IV NOW STA Stop: 01/25/19 13:30 Last Admin: 01/25/19 13:35 Dose: 50 mcg Documented by: [id number] Acetaminophen (Ofirmev) 1,000 mg in 100 mls @ 400 mls/hr IV NOW ONE Stop: 01/25/19 12:28 Last Infusion: 01/25/19 12:52 Dose: 0 mls/hr Documented by: [id number] Admin: 01/25/19 12:24 Dose: 400 mls/hr Documented by: [id number] Sodium Chloride (Nss 1000ml) 1,000 mls @ 999 mls/hr IV .Q1H1M COLT Stop: 01/25/19 13:15 Last Infusion: 01/25/19 13:26 Dose: 0 mls/hr Documented by: [id number] Admin: 01/25/19 12:24 Dose: 999 mls/hr Documented by: [id number] Prochlorperazine (Compazine) 2 mls @ 1 mls/min IV ONE ONE Stop: 01/25/19 13:30 Last Admin: 01/25/19 13:35 Dose: 1 mls/min Documented by: [id number] Magnesium Sulfate/Dextrose (Magnesium Sulfate / D5w) 1 gm in 100 mls @ 100 mls/hr IV ONE ONE Stop: 01/25/19 14:53 Last Infusion: 01/25/19 15:44 Dose: 0 mls/hr Documented by: [id number] Admin: 01/25/19 14:22 Dose: 100 mls/hr Documented by: [id number] Sodium Chloride (Nss 1000ml) 1,000 mls @ 999 mls/hr IV .Q1H1M ONE Stop: 01/25/19 15:20 Last Infusion: 01/25/19 16:04 Dose: 0 mls/hr Documented by: [id number] Admin: 01/25/19 14:47 Dose: 999 mls/hr Documented by: [id number] Promethazine HCl 25 mg/ Sodium (Chloride) 51 mls @ 204 mls/hr IV NOW STA Stop: 01/25/19 16:13 Last Admin: 01/25/19 16:33 Dose: Not Given Documented by: [id number] Lorazepam (Ativan) 1 mg in 2 mls @ 2 mls/min IV NOW STA Stop: 01/25/19 18:10 Last Admin: 01/25/19 18:33 Dose: 2 mls/min Documented by: [id number] Magnesium Sulfate/Dextrose (Magnesium Sulfate / D5w) 1 gm in 100 mls @ 100 mls/hr IV ONE ONE Stop: 01/25/19 20:59 Last Infusion: 01/25/19 21:04 Dose: 0 mls/hr Documented by: [id number] Admin: 01/25/19 20:09 Dose: 100 mls/hr Documented by: [id number] Ioversol (Optiray 320 100ml) 93 ml IV ONCE PRN PRN Reason: Interaction Checking Stop: 01/29/19 13:51 Last Admin: 01/25/19 13:53 Dose: 93 ml Documented by: [id number] Metoclopramide HCl (Reglan) 10 mg IV NOW STA Stop: 01/25/19 12:15 Last Admin: 01/25/19 12:24 Dose: 10 mg Documented by: [id number] Metoprolol Tartrate (Lopressor) 2.5 mg IV NOW STA Stop: 01/25/19 21:40 Last Admin: 01/25/19 22:08 Dose: 2.5 mg Documented by: [id number] Morphine Sulfate (Morphine Sulfate) 4 mg IV NOW STA Stop: 01/25/19 22:04 Last Admin: 01/25/19 22:26 Dose: 4 mg Documented by: [id number] Potassium Chloride (Klor-Con M20) 40 meq PO NOW STA Stop: 01/25/19 16:24 Last Admin: 01/25/19 21:29 Dose: Not Given Documented by: [id number] Potassium Chloride (Klor-Con M20) 40 meq PO NOW ONE Stop: 01/25/19 21:01 Last Admin: 01/25/19 22:12 Dose: Not Given Documented by: [id number] Promethazine HCl (Phenergan) Confirm Administered Dose 25 mg IV .STK-MED ONE Stop: 01/25/19 16:31 Last Admin: 01/25/19 16:33 Dose: 25 mg Documented by: [id number] Sucralfate (Carafate) 1 gm PO NOW STA Stop: 01/25/19 15:15 Last Admin: 01/25/19 21:29 Dose: Not Given Documented by: [id number] Medical Decision Making Differential Diagnosis Differential diagnoses includes but is not limited to gastritis, peptic ulcer disease, GERD, gallbladder disease, pancreatitis, small bowel obstruction, acute coronary syndrome, pericarditis, ischemic bowel, irritable bowel disease, irritable bowel syndrome, appendicitis, diverticulitis, malignancy, hernia, urinary tract infection, torsion, /ectopic , perforation, trauma, infectious. Home Medications Current Medication List: was personally reviewed by me Laboratory Data Attestation: I reviewed the patient's lab results. Result diagrams: 01/25/19 12:13 01/25/19 12:13 Lab Results 01/25/19 01/25/19 01/25/19 Range/Units 12:13 12:13 15:14 WBC 13.60 H (4.8-10.8) K/uL RBC 5.15 (4.2-5.4) M/uL Hgb 15.7 (12.0-16.0) g/dL Hct 44.1 (37-47) % MCV 85.6 (80-100) fL MCH 30.5 (25-34) pg MCHC 35.6 (32-36) g/dL RDW Std Deviation 41.3 (36.4-46.3) fL RDW Coeff of [place] 13.2 (11.5-14.5) % Plt Count 290 (130-400) K/uL MPV 9.4 (7.4-10.4) fL Immature Gran % (Auto) 0.2 % Neut % (Auto) 81.8 % Lymph % (Auto) 14.0 % [place] % (Auto) 3.8 % Eos % (Auto) 0.1 % Baso % (Auto) 0.1 % Immature Gran # (Auto) 0.03 H (0.00-0.02) K/uL Neut # (Auto) 11.13 H (1.4-6.5) K/uL Lymph # (Auto) 1.90 (1.2-3.4) K/uL [place] # (Auto) 0.52 (0.11-0.59) K/uL Eos # (Auto) 0.01 (0-0.5) K/uL Baso # (Auto) 0.01 (0-0.2) K/uL Sodium 137 (136-145) mmol/L Potassium 3.2 L (3.5-5.1) mmol/L Chloride 102 (98-107) mmol/L Carbon Dioxide 25 (21-32) mmol/L Anion Gap 10.0 (3-11) BUN 21 H (7-18) mg/dl Creatinine 0.94 (0.6-1.2) mg/dl Est Cr Clr Drug Dosing 57.8 ml/min Est GFR ( Amer) 71.2 Est GFR (Non-Af Amer) 61.5 BUN/Creatinine Ratio 22.3 H (10-20) Glucose 177 H (70-99) mg/dl POC Glucose (70-99) Calcium 9.5 (8.5-10.1) mg/dl Phosphorus 2.5 (2.5-4.9) mg/dl Magnesium 1.7 L (1.8-2.4) mg/dl Total Bilirubin 0.7 (0.2-1) mg/dl Direct Bilirubin 0.2 (0-0.2) mg/dl AST 22 (15-37) U/L ALT 42 (12-78) U/L Alkaline Phosphatase 117 (45-117) U/L Troponin I < 0.015 (0-0.045) ng/ml Total Protein 7.9 (6.4-8.2) gm/dl Albumin 4.2 (3.4-5.0) gm/dl Globulin 3.7 (2.5-4.0) gm/dl Albumin/Globulin Ratio 1.1 (0.9-2) Lipase 87 (73-393) U/L TSH (0.300-4.500) uIu/ml Urine Color Yellow Urine Appearance Clear (Clear) Urine pH 5.5 (4.5-7.5) Ur Specific [place] > 1.045 H (1.000-1.030) Urine Protein Negative (Negative) Urine Glucose (UA) Negative (Negative) Urine Ketones Trace H (Negative) Urine Blood Negative (Negative) Urine Nitrite Negative (Negative) Urine Bilirubin Negative (Negative) Urine Urobilinogen Negative (Negative) Ur Leukocyte Esterase Negative (Negative) 01/25/19 01/25/19 01/25/19 Range/Units 15:44 15:44 21:20 WBC (4.8-10.8) K/uL RBC (4.2-5.4) M/uL Hgb (12.0-16.0) g/dL Hct (37-47) % MCV (80-100) fL MCH (25-34) pg MCHC (32-36) g/dL RDW Std Deviation (36.4-46.3) fL RDW Coeff of [place] (11.5-14.5) % Plt Count (130-400) K/uL MPV (7.4-10.4) fL Immature Gran % (Auto) % Neut % (Auto) % Lymph % (Auto) % [place] % (Auto) % Eos % (Auto) % Baso % (Auto) % Immature Gran # (Auto) (0.00-0.02) K/uL Neut # (Auto) (1.4-6.5) K/uL Lymph # (Auto) (1.2-3.4) K/uL [place] # (Auto) (0.11-0.59) K/uL Eos # (Auto) (0-0.5) K/uL Baso # (Auto) (0-0.2) K/uL Sodium (136-145) mmol/L Potassium (3.5-5.1) mmol/L Chloride (98-107) mmol/L Carbon Dioxide (21-32) mmol/L Anion Gap (3-11) BUN (7-18) mg/dl Creatinine (0.6-1.2) mg/dl Est Cr Clr Drug Dosing ml/min Est GFR ( Amer) Est GFR (Non-Af Amer) BUN/Creatinine Ratio (10-20) Glucose (70-99) mg/dl POC Glucose 142 H (70-99) Calcium (8.5-10.1) mg/dl Phosphorus (2.5-4.9) mg/dl Magnesium (1.8-2.4) mg/dl Total Bilirubin (0.2-1) mg/dl Direct Bilirubin (0-0.2) mg/dl AST (15-37) U/L ALT (12-78) U/L Alkaline Phosphatase (45-117) U/L Troponin I < 0.015 (0-0.045) ng/ml Total Protein (6.4-8.2) gm/dl Albumin (3.4-5.0) gm/dl Globulin (2.5-4.0) gm/dl Albumin/Globulin Ratio (0.9-2) Lipase (73-393) U/L TSH 0.432 (0.300-4.500) uIu/ml Urine Color Urine Appearance (Clear) Urine pH (4.5-7.5) Ur Specific [place] (1.000-1.030) Urine Protein (Negative) Urine Glucose (UA) (Negative) Urine Ketones (Negative) Urine Blood (Negative) Urine Nitrite (Negative) Urine Bilirubin (Negative) Urine Urobilinogen (Negative) Ur Leukocyte Esterase (Negative) Imaging Data Radiologist's Impression: Radiology results as stated below per my review and the radiologist's interpretation: XR chest 1V portable CLINICAL HISTORY: abd Pain pain COMPARISON STUDY: 04/30/2018 FINDINGS: Mild stable cardia megaly. [id number] present within the superior vena cava. Lungs are considered clear. Chronic bibasilar interstitial change. IMPRESSION: Chronic change. Mild stable cardiomegaly. No acute process. The above report was generated using voice recognition software. It may contain grammatical, syntax or spelling errors. Electronically signed by: Dann Felix M.D. 01/25/2019 12:[address] SCAN OF THE ABDOMEN AND PELVIS WITH IV CONTRAST CLINICAL HISTORY: Generalized abdominal pain. Nausea and vomiting. COMPARISON STUDY: Abdominal CT dated 05/01/2018. TECHNIQUE: Following the IV administration of 93 cc of Optiray 320, CT scan of the abdomen and pelvis is performed from the lung bases to the proximal femora. Images are reviewed in the axial, sagittal, and coronal planes. IV contrast was administered without complication. A dose lowering technique was utilized adhering to the principles of ALARA. CT DOSE: 925.12 mGycm FINDINGS: Lung bases: The heart is top normal in size and without pericardial effusion. The lung bases are clear noting bibasilar scarring/atelectasis. There is a small to moderate hiatal hernia. Liver: The contrast-enhanced liver is normal in size, contour, and attenuation. There is no intrahepatic biliary ductal dilatation. The hepatic veins and portal veins are patent. Gallbladder: Unremarkable. Spleen: Normal in size and attenuation. Pancreas: Unremarkable. Adrenal glands: Unremarkable. Kidneys: The contrast enhanced kidneys demonstrate mild cortical atrophy and are without hydronephrosis. The kidneys enhance symmetrically. Scattered subcentimeter cortical hypodensities likely represent cysts but are too small for definitive characterization. A 5 mm nonobstructing calculus is present in the upper pole of the left kidney. Abdominal vasculature: The abdominal aorta is normal in course and caliber noting moderate to advanced atherosclerotic calcification. Bowel: There is mild colonic diverticulosis without CT evidence of acute diverticulitis. No bowel obstruction is seen. Mild/moderate colonic fecal retention is observed. Question mild wall thickening versus underdistention of the right colon. Faint pericolonic stranding is noted. The appendix is not identified and reported surgically absent. Peritoneum: There is no intraperitoneal free air or abdominal ascites. Lymphadenopathy: None. Pelvic viscera: The bladder is normal as imaged. There are uterine fibroids. No adnexal lesion is seen. Large gluteal soft tissue calcifications are noted. Skeletal structures: The skeletal structures are osteopenic. There is moderate to advanced lumbar sacral spondylosis and scoliosis with evidence of DISH. Extensive postlaminectomy change is seen throughout the thoracolumbar spine. Advanced degenerative sclerosis is seen in the sacroiliac joints. No lytic or blastic lesions are seen. IMPRESSION: 1. Question a mild nonspecific colitis of the right colon. Clinical correlation will be required. 2. Mild colonic diverticulosis without CT evidence of acute diverticulitis. 3. Fibroid uterus. 4. Additional findings as above. Electronically signed by: Ivan Smith M.D. 01/25/2019 2:06 PM ECG Data Attestation: I personally reviewed and interpreted this ECG as follows: Indication: nausea and vomiting Rate (beats per minute): 106 Rhythm: sinus tachycardia Findings: + other (nonspecific ST abnormalities) and + 1st degree AV block Comparison ECG Date: from (Repeat EKG 01/25/2019) Change: no significant change Blood Pressure Blood Pressure Findings: Elevated blood pressure Blood Pressure Disposition: further management by hospitalist LU Witt The patient is a pleasant 68-year-old woman with a past medical history of cyclic vomiting, chronic pain who presents emergency department with worsening nausea and vomiting over the past several days with associated generalized abdominal pain per hpi. On arrival patient is fatigued and uncomfortable but no acute distress, afebrile with heart rate in the 110s and vital signs otherwise stable. Patient appears clinically dry. She has generalized abdominal tendern ess without peritoneal signs. EKG initially interpreted by machine for possible ST elevation MS however finding more consistent with nonspecific ST changes, repeat EKG unchanged. Troponin negative in the setting of greater than 24 hours of constant symptoms. Repeat 3-hour troponin again negative. Thus cardiac etiology unlikely. WBC 13.6, nonspecific. H/H and platelets within normal limits. Chemistry without acidosis. Magnesium 1.7 with repletion provided. LFTs unremarkable. Lipase within normal limits. UA with trace ketones consistent with the patient's clinically dry appearance but otherwise negative for infection. The abdomen pelvis with question of mild right-sided colitis, how ever given the patient denies any diarrhea findings are not necessarily consistent with patient's presentation. Patient was feeling improved after IV fluids, APAP, Pepcid,, Reglan, Compazine however still with abdominal discomfort and nausea where she feels she cannot tolerate oral intake. Thus, given the patient's persistent symptoms which are likely related to her history of cyclic vomiting reasonable to admit the patient for further management. Of note, the patient does report that she normally wears a fentanyl patch but she did not put this on today because she felt ill. However given that her symptoms began while still wearing her patch, symptoms are thought to be less likely to be related to withdrawal at this time. Case was discussed with Dr. Manning, [facility] [place] [place] hospitalist, who will evaluate the patient for admission. Impression & Plan Cyclical vomiting Discharge Plan Visit Data *Final* Discharge Date/Time: 01/25/19 18:45 Chief Complaint: Vomiting Stated Complaint: vomit ED Provider: Adan Baxter Discharge Problem: Cyclical vomiting Patient Disposition: Admitted As Inpatient Discharge Instructions Interventions: ED Discharge Assessment Last Done: 01/25/19 18:45 Discharge Problem: Cyclical vomiting Qualifiers: Vomiting Intractability: unspecified Nausea presence: with nausea Qualified Code(s): G43.A0 - Cyclical vomiting, not intractable The scribe's documentation has been prepared under my direction and personally reviewed by me in its entirety. I confirm that the note above accurately reflects all work, treatment, procedures, and medical decision making performed by me.
[2019-01-25] MEDS ORDERED: POTASSIUM CHLORIDE 20 MEQ TABCR PO ONE (21:00)
[2019-01-25] MEDS: PROMETHAZINE HCL 25 MG in SODIUM CHLORIDE 0.9% 50 ML IV PRN (21:04)
[2019-01-25] MEDS ORDERED: METOPROLOL TARTRATE 1 MG/ML VIAL IV STA (21:39)
[2019-01-25] MEDS ORDERED: OXYCODONE HCL IR 5 MG TAB (IMMEDIATE RELEASE) PO PRN (22:03)
[2019-01-25] MEDS ORDERED: MoRPHine SULFATE 4 MG/ML 1 ML CARP\\VIAL IV STA (22:03)
[2019-01-25] MEDS: ARIPiprazole 10 MG TAB PO SCH (22:12)
[2019-01-25] MEDS: AMITRIPTYLINE HCL 25 MG TAB PO SCH (22:12)
[2019-01-25] MEDS: METOPROLOL TARTRATE 25 MG TAB PO SCH (22:12)
[2019-01-25] MEDS ORDERED: HEPARIN 100 UNIT/ML 5ML FLUSH FLUSH PRN (23:38)
[2019-01-26] MEDS: MoRPHine SULFATE 4 MG/ML 1 ML CARP\\VIAL IV PRN ×2 (03:50→09:01)
[2019-01-26] MEDS: PROMETHAZINE HCL 25 MG in SODIUM CHLORIDE 0.9% 50 ML IV PRN ×3 (03:58→20:01)
[2019-01-26] MEDS: LEVOTHYROXINE SODIUM 75 MCG TABLET PO SCH (05:41)
[2019-01-26] MEDS: POTASSIUM CHLORIDE 40 MEQ in SODIUM CHLORIDE 0.9% 1000ML 1,000 ML IV SCH ×2 (05:42→15:48)
[2019-01-26 06:45] LABS: Basophils # (auto) 0.05 K/uL (0-0.2); Basophils % (auto) 0.3 %; Eosinophils # (auto) 0.08 K/uL (0-0.5); Eosinophils % (auto) 0.5 %; Hematocrit (blood only) 39.3 % (37-47); Hemoglobin 13.2 g/dL (12.0-16.0); Immature Granulocytes # (auto) 0.03 K/uL (0.00-0.02); Immature Granulocytes % (auto) 0.2 %; Lymphocytes # (auto) 3.74 K/uL (1.2-3.4); Lymphocytes % (auto) 25.4 %; Mean Corpuscular Hgb Conc 33.6 g/dL (32-36); Mean Corpuscular Volume 88.5 fL (80-100); Mean Platelet Volume 9.2 fL (7.4-10.4); Monocytes # (auto) 1.42 K/uL (0.11-0.59); Monocytes % (auto) 9.6 %; Neutrophils # (auto) 9.41 K/uL (1.4-6.5); Platelet Count 265 K/uL (130-400); RDW Coefficient of Variation 13.6 % (11.5-14.5); Red Blood Count 4.44 M/uL (4.2-5.4); White Blood Count 14.73 K/uL (4.8-10.8)
[2019-01-26 06:59] LABS: Albumin Level 3.5 gm/dl (3.4-5.0); BUN Creatinine Ratio 21.7 (10-20); Calcium 8.8 mg/dl (8.5-10.1); Creatinine Clr Calc Pharmacy 82.9 ml/min; Est GFR (African American) 104.1; Est GFR (Non-African American) 89.8; Magnesium 2.3 mg/dl (1.8-2.4); Potassium 3.6 mmol/L (3.5-5.1)
[2019-01-26 07:02] LABS: Albumin Globulin Ratio 1.1 (0.9-2); Bilirubin,Total 0.8 mg/dl (0.2-1); Globulin 3.2 gm/dl (2.5-4.0); Total Protein 6.7 gm/dl (6.4-8.2)
[2019-01-26 07:27] LABS: Estimated Average Glucose 137 mg/dl; Hemoglobin A1C 6.4 % (4.5-5.6)
--- NOTE | 2019-01-26 10:10 | Gastrointestinal Consultation ---
Date of Consultation January 26, 2019 Assessment & Plan (1) Cyclic vomiting syndrome: 69 year old female with history of CVS admitted w/ nausea, vomiting. She has mild leykocytosis w/ stable H&H, plt count. Her LFTs and lipase are non- elevated. CT w/ ?colitis but denies any diarrheal illness. She had a c-scopy 08/05 and recall was not recommended. Since started on anti-emetic regimen w. relief of her vomiting but persistent nausea. To trial clear this AM. Work up of leukocytosis Would collect stool culture, c.diff if she developed diarrhea No plan for repeat c-scopy given recent endoscopic evaluation NPO for bowel rest but can trial clears when ready IV PPI BID while admitted then PO once daily at discharge Would continue anti-emetics as ordered for now If symptoms persist, can discuss emend GI will sign off. Thank you for allowing us to participate in the care of this patient. Please call with any acute changes, questions or concerns. Please see addendum below with additional recommendation from my supervising physician. Present on Admission?: Yes Supervising Physician Co-Signing Physician Notes Late entry: Patient was jory and examined with NUPUR Tsai on 01/26. Her note reflects our findings and plan. History of Present Illness Reason for Consultation: CVS Requesting Physician: Braulio Attending Physician: Ruma Ramsye History of Present Illness 69 year old female admitted w/ N/V, history of CVS, HTN, HLD, Hypothyroidism, Chronic pain syndrome, multiple thoracic/lumbar spinal surgeries and PTSD. GI asked to evalaute for N/V. Pt was seen and evaluated, chart reviewed. Endorses abd pain, N/V that started about 48 hours ago. Emesis was clear, bile to start. Notes as she had persistent vomiting would occasionalyl see blood tinged emesis but denies any coffee ground emesis or hematemesis. Since arrival, started on anti-emetics w/ relief of vomiting. No emesis since ED. Has yet to move her bowels. Denies prior black/bloody stools. No sick contacts. no fever, chills, CP ,SOB. EGD 2015: medium-sized hiatus hernia. No evidence of bleeding, perhaps patient had a Molly -Ferrari tear.-Normal stomach.-Normal examined duodenum Colonoscopy 2017: Preparation of the colon was poor. Sigmoid diverticulosis. The examination was otherwise normal CT 2019: Question a mild nonspecific colitis of the right colon. Clinical correlation will be required.Mild colonic diverticulosis without CT evidence of acute diverticulitis.Fibroid uterus. Allergies Allergy/AdvReac Type Severity Reaction Status Date / Time latex Allergy Intermediate RASH Verified 01/25/19 14:31 nickel Allergy Intermediate SEVERE Verified 01/25/19 14:31 DERMATITIS NSAIDS (Non-Steroidal Allergy Intermediate HX OF Verified 01/25/19 14:31 Anti-Inflamma BLEEDING ULCERS aspirin AdvReac Intermediate bleeding Verified 01/25/19 14:31 ulcers Home Medications Home Medications Medication Instructions Recorded Confirmed Type amitriptyline 50 mg PO HS 12/13/18 01/25/19 History amlodipine 5 mg PO QAM 12/13/18 01/25/19 History aripiprazole 10 mg PO HS 12/13/18 01/25/19 History aspirin 81 mg PO QAM 12/13/18 01/25/19 History atorvastatin 40 mg PO QAM 12/13/18 01/25/19 History buspirone 10 mg PO TID 12/13/18 01/25/19 History hydrochlorothiazide 25 mg PO QAM 12/13/18 01/25/19 History hydroxyzine HCl 50 mg PO HS 12/13/18 01/25/19 History levothyroxine 75 mcg PO QAM 12/13/18 01/25/19 History lisinopril 5 mg PO QAM 12/13/18 01/25/19 History metoprolol tartrate 25 mg PO BID 12/13/18 01/25/19 History tizanidine 4 mg PO Q8H PRN 12/13/18 01/25/19 History fentanyl 1 patch TRANSDERMAL Q72H 01/25/19 01/25/19 History pramipexole 0.125 mg PO HS 01/25/19 01/25/19 History tramadol 50 mg PO TID PRN 01/25/19 01/25/19 History trazodone 200 mg PO HS 01/25/19 01/25/19 History Patient History Medical History CAD (coronary artery disease) (Chronic) Hypertension (Chronic) Myocardial Infarction (Chronic) 2 YEARS AGO Pulmonary embolism (Chronic) 2 YEARS OLD (UNSURE OF REASON) Deep vein thrombosis (Chronic) 4 YEARS AGO Migraine (Chronic) Restless leg syndrome (Chronic) Anxiety (Chronic) Depression (Chronic) Post traumatic stress disorder (Chronic) Anemia (Chronic) HX OF Hypothyroidism (Chronic) Colitis (Chronic) Osteoarthritis (Chronic) Degenerative disc disease (Chronic) Hyperlipidemia Surgical History History of heart artery stent (Chronic) 2017- STENT PLACED AT [facility] (DR. DAVILA) History of adenoidectomy (Chronic) History of tonsillectomy (Chronic) History of appendectomy (Chronic) History of colonoscopy (Chronic) History of esophagogastroduodenoscopy (EGD) (Chronic) Fusion of spine (Chronic) LUMBAR History of laminectomy (Chronic) LUMBAR Ovarian cyst (Chronic) X 2 History of anesthesia reaction (Chronic) WOKE UP IN MIDDLE OF SPINAL SURGERIES History of cataract surgery (Chronic) LEFT Family History Other Hypertension Social History Communication Ability: Effective Beliefs That Will Affect Care: None marital status: Current Living Situation: Alone current occupational status: retired Feels Safe at Home: Yes Safety Concerns: Feels Safe At This Time Smoking Status: Never smoker Hx Alcohol Use: No Hx Substance Use: No Review of Systems Constitutional: no fever, no body aches, no weakness and no weight loss Respiratory: no cough, no dyspnea, no snoring and no wheezing Cardiovascular: no chest pain, no radiating jaw, neck or arm pain and no syncope Gastrointestinal: + belching, + heartburn and + nausea; no abdominal pain, no bloating, no early satiety, no vomiting, no coffee ground emesis, no hematemesis, no pain with swallowing, no dysphagia, no cramping, no excessive flatulence, no change in bowel habits, no change in stools, no constipation, no diarrhea/loose stools, no fecal incontinence, no constant urge to pass stools, no blood in stools, no melena and no problem reported Physical Exam Vital Signs (Past 24 Hours): Last Vital Signs Temp 36.7 C 01/26/19 07:17 Pulse 107 H 01/26/19 07:43 Resp 18 01/26/19 07:17 BP 129/87 01/26/19 07:17 Pulse Ox 94 01/26/19 07:17 Constitutional: well nourished, cooperative and comfortable; no acute distress Respiratory: normal respiratory effort, lungs clear to auscultation Cardiovascular: Rate/Rhythm: + tachycardic Heart Sounds: normal S1 and normal S2 Gastrointestinal (Abdomen): normal bowel sounds, soft, nontender, no hepatosplenomegaly Skin: no rashes, warm and dry Results & Data Laboratory Results 01/26/19 01/26/19 01/26/19 Range/Units 07:38 05:47 05:47 WBC (4.8-10.8) K/uL RBC (4.2-5.4) M/uL Hgb (12.0-16.0) g/dL Hct (37-47) % MCV (80-100) fL MCH (25-34) pg MCHC (32-36) g/dL RDW Std Deviation (36.4-46.3) fL RDW Coeff of [place] (11.5-14.5) % Plt Count (130-400) K/uL MPV (7.4-10.4) fL Immature Gran % (Auto) % Neut % (Auto) % Lymph % (Auto) % [place] % (Auto) % Eos % (Auto) % Baso % (Auto) % Immature Gran # (Auto) (0.00-0.02) K/uL Neut # (Auto) (1.4-6.5) K/uL Lymph # (Auto) (1.2-3.4) K/uL [place] # (Auto) (0.11-0.59) K/uL Eos # (Auto) (0-0.5) K/uL Baso # (Auto) (0-0.2) K/uL Sodium 141 (136-145) mmol/L Potassium 3.6 (3.5-5.1) mmol/L Chloride 108 H (98-107) mmol/L Carbon Dioxide 28 (21-32) mmol/L Anion Gap 5.0 (3-11) BUN 14 (7-18) mg/dl Creatinine 0.64 D (0.6-1.2) mg/dl Est Cr Clr Drug Dosing 82.9 ml/min Est GFR ( Amer) 104.1 Est GFR (Non-Af Amer) 89.8 BUN/Creatinine Ratio 21.7 H (10-20) Glucose 109 H (70-99) mg/dl POC Glucose 109 H (70-99) Estimat Average Glucose 137 mg/dl Hemoglobin A1c 6.4 H (4.5-5.6) % Calcium 8.8 (8.5-10.1) mg/dl Phosphorus (2.5-4.9) mg/dl Magnesium 2.3 (1.8-2.4) mg/dl Total Bilirubin 0.8 (0.2-1) mg/dl Direct Bilirubin (0-0.2) mg/dl AST 16 (15-37) U/L ALT 31 (12-78) U/L Alkaline Phosphatase 91 (45-117) U/L Troponin I (0-0.045) ng/ml Total Protein 6.7 (6.4-8.2) gm/dl Albumin 3.5 (3.4-5.0) gm/dl Globulin 3.2 (2.5-4.0) gm/dl Albumin/Globulin Ratio 1.1 (0.9-2) Lipase (73-393) U/L TSH (0.300-4.500) uIu/ml Urine Color Urine Appearance (Clear) Urine pH (4.5-7.5) Ur Specific [place] (1.000-1.030) Urine Protein (Negative) Urine Glucose (UA) (Negative) Urine Ketones (Negative) Urine Blood (Negative) Urine Nitrite (Negative) Urine Bilirubin (Negative) Urine Urobilinogen (Negative) Ur Leukocyte Esterase (Negative) 01/26/19 01/25/19 01/25/19 Range/Units 05:47 21:20 15:44 WBC 14.73 H (4.8-10.8) K/uL RBC 4.44 (4.2-5.4) M/uL Hgb 13.2 (12.0-16.0) g/dL Hct 39.3 (37-47) % MCV 88.5 (80-100) fL MCH 29.7 (25-34) pg MCHC 33.6 (32-36) g/dL RDW Std Deviation 44.0 (36.4-46.3) fL RDW Coeff of [place] 13.6 (11.5-14.5) % Plt Count 265 (130-400) K/uL MPV 9.2 (7.4-10.4) fL Immature Gran % (Auto) 0.2 % Neut % (Auto) 64.0 % Lymph % (Auto) 25.4 % [place] % (Auto) 9.6 % Eos % (Auto) 0.5 % Baso % (Auto) 0.3 % Immature Gran # (Auto) 0.03 H (0.00-0.02) K/uL Neut # (Auto) 9.41 H (1.4-6.5) K/uL Lymph # (Auto) 3.74 H (1.2-3.4) K/uL [place] # (Auto) 1.42 H (0.11-0.59) K/uL Eos # (Auto) 0.08 (0-0.5) K/uL Baso # (Auto) 0.05 (0-0.2) K/uL Sodium (136-145) mmol/L Potassium (3.5-5.1) mmol/L Chloride (98-107) mmol/L Carbon Dioxide (21-32) mmol/L Anion Gap (3-11) BUN (7-18) mg/dl Creatinine (0.6-1.2) mg/dl Est Cr Clr Drug Dosing ml/min Est GFR ( Amer) Est GFR (Non-Af Amer) BUN/Creatinine Ratio (10-20) Glucose (70-99) mg/dl POC Glucose 142 H (70-99) Estimat Average Glucose mg/dl Hemoglobin A1c (4.5-5.6) % Calcium (8.5-10.1) mg/dl Phosphorus (2.5-4.9) mg/dl Magnesium (1.8-2.4) mg/dl Total Bilirubin (0.2-1) mg/dl Direct Bilirubin (0-0.2) mg/dl AST (15-37) U/L ALT (12-78) U/L Alkaline Phosphatase (45-117) U/L Troponin I (0-0.045) ng/ml Total Protein (6.4-8.2) gm/dl Albumin (3.4-5.0) gm/dl Globulin (2.5-4.0) gm/dl Albumin/Globulin Ratio (0.9-2) Lipase (73-393) U/L TSH 0.432 (0.300-4.500) uIu/ml Urine Color Urine Appearance (Clear) Urine pH (4.5-7.5) Ur Specific [place] (1.000-1.030) Urine Protein (Negative) Urine Glucose (UA) (Negative) Urine Ketones (Negative) Urine Blood (Negative) Urine Nitrite (Negative) Urine Bilirubin (Negative) Urine Urobilinogen (Negative) Ur Leukocyte Esterase (Negative) 01/25/19 01/25/19 01/25/19 Range/Units 15:44 15:14 12:13 WBC (4.8-10.8) K/uL RBC (4.2-5.4) M/uL Hgb (12.0-16.0) g/dL Hct (37-47) % MCV (80-100) fL MCH (25-34) pg MCHC (32-36) g/dL RDW Std Deviation (36.4-46.3) fL RDW Coeff of [place] (11.5-14.5) % Plt Count (130-400) K/uL MPV (7.4-10.4) fL Immature Gran % (Auto) % Neut % (Auto) % Lymph % (Auto) % [place] % (Auto) % Eos % (Auto) % Baso % (Auto) % Immature Gran # (Auto) (0.00-0.02) K/uL Neut # (Auto) (1.4-6.5) K/uL Lymph # (Auto) (1.2-3.4) K/uL [place] # (Auto) (0.11-0.59) K/uL Eos # (Auto) (0-0.5) K/uL Baso # (Auto) (0-0.2) K/uL Sodium 137 (136-145) mmol/L Potassium 3.2 L (3.5-5.1) mmol/L Chloride 102 (98-107) mmol/L Carbon Dioxide 25 (21-32) mmol/L Anion Gap 10.0 (3-11) BUN 21 H (7-18) mg/dl Creatinine 0.94 (0.6-1.2) mg/dl Est Cr Clr Drug Dosing 57.8 ml/min Est GFR ( Amer) 71.2 Est GFR (Non-Af Amer) 61.5 BUN/Creatinine Ratio 22.3 H (10-20) Glucose 177 H (70-99) mg/dl POC Glucose (70-99) Estimat Average Glucose mg/dl Hemoglobin A1c (4.5-5.6) % Calcium 9.5 (8.5-10.1) mg/dl Phosphorus 2.5 (2.5-4.9) mg/dl Magnesium 1.7 L (1.8-2.4) mg/dl Total Bilirubin 0.7 (0.2-1) mg/dl Direct Bilirubin 0.2 (0-0.2) mg/dl AST 22 (15-37) U/L ALT 42 (12-78) U/L Alkaline Phosphatase 117 (45-117) U/L Troponin I < 0.015 < 0.015 (0-0.045) ng/ml Total Protein 7.9 (6.4-8.2) gm/dl Albumin 4.2 (3.4-5.0) gm/dl Globulin 3.7 (2.5-4.0) gm/dl Albumin/Globulin Ratio 1.1 (0.9-2) Lipase 87 (73-393) U/L TSH (0.300-4.500) uIu/ml Urine Color Yellow Urine Appearance Clear (Clear) Urine pH 5.5 (4.5-7.5) Ur Specific [place] > 1.045 H (1.000-1.030) Urine Protein Negative (Negative) Urine Glucose (UA) Negative (Negative) Urine Ketones Trace H (Negative) Urine Blood Negative (Negative) Urine Nitrite Negative (Negative) Urine Bilirubin Negative (Negative) Urine Urobilinogen Negative (Negative) Ur Leukocyte Esterase Negative (Negative) 01/25/19 Range/Units 12:13 WBC 13.60 H (4.8-10.8) K/uL RBC 5.15 (4.2-5.4) M/uL Hgb 15.7 (12.0-16.0) g/dL Hct 44.1 (37-47) % MCV 85.6 (80-100) fL MCH 30.5 (25-34) pg MCHC 35.6 (32-36) g/dL RDW Std Deviation 41.3 (36.4-46.3) fL RDW Coeff of [place] 13.2 (11.5-14.5) % Plt Count 290 (130-400) K/uL MPV 9.4 (7.4-10.4) fL Immature Gran % (Auto) 0.2 % Neut % (Auto) 81.8 % Lymph % (Auto) 14.0 % [place] % (Auto) 3.8 % Eos % (Auto) 0.1 % Baso % (Auto) 0.1 % Immature Gran # (Auto) 0.03 H (0.00-0.02) K/uL Neut # (Auto) 11.13 H (1.4-6.5) K/uL Lymph # (Auto) 1.90 (1.2-3.4) K/uL [place] # (Auto) 0.52 (0.11-0.59) K/uL Eos # (Auto) 0.01 (0-0.5) K/uL Baso # (Auto) 0.01 (0-0.2) K/uL Sodium (136-145) mmol/L Potassium (3.5-5.1) mmol/L Chloride (98-107) mmol/L Carbon Dioxide (21-32) mmol/L Anion Gap (3-11) BUN (7-18) mg/dl Creatinine (0.6-1.2) mg/dl Est Cr Clr Drug Dosing ml/min Est GFR ( Amer) Est GFR (Non-Af Amer) BUN/Creatinine Ratio (10-20) Glucose (70-99) mg/dl POC Glucose (70-99) Estimat Average Glucose mg/dl Hemoglobin A1c (4.5-5.6) % Calcium (8.5-10.1) mg/dl Phosphorus (2.5-4.9) mg/dl Magnesium (1.8-2.4) mg/dl Total Bilirubin (0.2-1) mg/dl Direct Bilirubin (0-0.2) mg/dl AST (15-37) U/L ALT (12-78) U/L Alkaline Phosphatase (45-117) U/L Troponin I (0-0.045) ng/ml Total Protein (6.4-8.2) gm/dl Albumin (3.4-5.0) gm/dl Globulin (2.5-4.0) gm/dl Albumin/Globulin Ratio (0.9-2) Lipase (73-393) U/L TSH (0.300-4.500) uIu/ml Urine Color Urine Appearance (Clear) Urine pH (4.5-7.5) Ur Specific [place] (1.000-1.030) Urine Protein (Negative) Urine Glucose (UA) (Negative) Urine Ketones (Negative) Urine Blood (Negative) Urine Nitrite (Negative) Urine Bilirubin (Negative) Urine Urobilinogen (Negative) Ur Leukocyte Esterase (Negative)
--- NOTE | 2019-01-26 11:08 | Hospitalist Progress Note ---
Date of Service January 26, 2019 Assessment & Plan (1) Cyclic vomiting syndrome: This is a 68 yr old F with significant PMH of CAD, HTN, HLD, Hypothyroidism, Chronic pain syndrome, multiple thoracic/lumbar spinal surgeries, post polio syndrome, hx of PTSD who presents to [facility] secondary to intractable n/v x 1 day. Patient is a known case of cyclical nausea and vomiting with multiple admissions in past Prior hx of similar symptoms with admissions. Leucocytosis with WBC 14.73k- Worsened Work up- LFTs and lipase WNL, CT abd/pelvis- ? Mild nonspecific colitis of right colon, mild colonic diverticulosis, fibroid uterus, UA -neg for infection, CXR- no active disease. On IV Phenergan as needed Discontinue IV Morphine, Decrease frequency of Oxycodone to q 6 hour prn, On tramadol p.o. as needed for pain GI consulted (2) Hypomagnesemia: (3) Hypokalemia: On IV NS with k supplement Resolved (4) CAD (coronary artery disease): No chest pain or shortness of breath No acute EKG changes, troponin negative Continue ASA, statin, metoprolol, lisinopril for risk reduction management (5) Hypertension: Blood pressure stable Continue amlodipine, lisinopril and metoprolol Hold HCTZ in setting of volume contraction (6) Chronic pain: Patient is a known case of chronic pain syndrome, seen by pain management in the past. Does have lumbosacral radiculopathic pain, chronic, sacroiliitis as per prior notes. At home she is on fentanyl 37 mcg q [address] fentanyl patch day of admission morning as she removed her previous patch but did not do so secondary to ill feeling -Will restart fentanyl per home med dosage 37 mcg and discontinue IV narcotics and PO narcotics -will avoid nsaids given hx of chronic gastritis (7) Dyslipidemia: continue statin (8) Depression: Mood currently stable Patient is on multiple antidepressant/antipsychotics including trazodone, Abilify, amitriptyline, mirapex, BuSpar. Held Mirapex, Trazodone on admission, Amitriptyline dose reduced to 25 mg from 50 mg. -QTC has come down to 442 -Monitor QTC -Psychiatry consulted (9) QT prolongation: QTC 624 ms on most recent ECG, now 442 holding trazodone and mirapex, amitriptyline reduced to 25mg Psychiatry consulted (10) Restless leg syndrome: -Holding Mirapex due to QTC prolongation (11) Hypothyroidism: TSH- Normal Continue levothyroxine (12) Hyperglycemia: no hx of T2DM HBA1C 6.4. Discontinue accuchecks (13) DVT prophylaxis: -SCDS and SQ heparin, per records hx of PE Disposition: Expected discharge home when stable Follow up: PCP Dr. Spann upon discharge Subjective Patient is very anxious. Does complain of nausea, on IV medications as needed. Just demanded a dose of antiemetic. No episodes of vomiting since yesterday. Does complain of generalized abdominal pain, using IV morphine for the same. On clear liquid diet, tolerating with antiemetics. Physical Exam Vital Signs (Past 24 Hours): Last Vital Signs Temp 36.7 C 01/26/19 07:17 Pulse 107 H 01/26/19 07:43 Resp 18 01/26/19 07:17 BP 129/87 01/26/19 07:17 Pulse Ox 94 01/26/19 07:17 Physical Exam: GENERAL- AAOX3, No acute distress, anxious NECK- Supple, no JVD LUNGS- Air entry bilaterally equal. No rales, rhonchi, crackles, wheezes heard. HEART- Regular rate and rhythm. No murmurs ABDOMEN- Soft, generalized tenderness even on superficial palpation, nondi stended, bowel sounds present EXTREMITIES- Good peripheral pulses, no edema
[2019-01-26] MEDS: METOPROLOL TARTRATE 25 MG TAB PO SCH ×2 (11:31→20:02)
[2019-01-26] MEDS: ATORVASTATIN 40 MG TAB PO SCH (11:31)
[2019-01-26] MEDS: LISINOPRIL 5 MG TAB PO SCH (11:31)
[2019-01-26] MEDS: AMLODIPINE BESYLATE 5 MG TAB PO SCH (11:32)
[2019-01-26] MEDS: OXYCODONE HCL IR 5 MG TAB (IMMEDIATE RELEASE) PO PRN (15:51)
[2019-01-26] MEDS: AMITRIPTYLINE HCL 25 MG TAB PO SCH (20:01)
[2019-01-26] MEDS: ARIPiprazole 10 MG TAB PO SCH (20:02)
[2019-01-27] MEDS: OXYCODONE HCL IR 5 MG TAB (IMMEDIATE RELEASE) PO PRN ×2 (01:14→09:57)
[2019-01-27] MEDS: POTASSIUM CHLORIDE 40 MEQ in SODIUM CHLORIDE 0.9% 1000ML 1,000 ML IV SCH (02:00)
[2019-01-27] MEDS: LEVOTHYROXINE SODIUM 75 MCG TABLET PO SCH (06:01)
[2019-01-27 06:07] LABS: Hematocrit (blood only) 37.2 % (37-47); Hemoglobin 12.6 g/dL (12.0-16.0); Mean Corpuscular Hgb Conc 33.9 g/dL (32-36); Mean Corpuscular Volume 89.4 fL (80-100); Mean Platelet Volume 9.2 fL (7.4-10.4); Platelet Count 228 K/uL (130-400); RDW Coefficient of Variation 13.6 % (11.5-14.5); RDW Standard Deviation 44.8 fL (36.4-46.3); Red Blood Count 4.16 M/uL (4.2-5.4); White Blood Count 9.04 K/uL (4.8-10.8)
[2019-01-27 06:42] LABS: BUN Creatinine Ratio 16.6 (10-20); Calcium 8.5 mg/dl (8.5-10.1); Creatinine Clr Calc Pharmacy 72.7 ml/min; Est GFR (Non-African American) 82.9; Potassium 4.1 mmol/L (3.5-5.1)
[2019-01-27] MEDS: PROMETHAZINE HCL 25 MG in SODIUM CHLORIDE 0.9% 50 ML IV PRN (09:26)
[2019-01-27] MEDS: LISINOPRIL 5 MG TAB PO SCH (09:56)
[2019-01-27] MEDS: METOPROLOL TARTRATE 25 MG TAB PO SCH (09:56)
[2019-01-27] MEDS: ATORVASTATIN 40 MG TAB PO SCH (09:56)
[2019-01-27] MEDS: AMLODIPINE BESYLATE 5 MG TAB PO SCH (09:56)
--- NOTE | 2019-01-27 11:01 | Hospitalist Progress Note ---
Date of Service January 27, 2019 Assessment & Plan (1) Cyclic vomiting syndrome: This is a 68 yr old F with significant PMH of CAD, HTN, HLD, Hypothyroidism, Chronic pain syndrome, multiple thoracic/lumbar spinal surgeries, post polio syndrome, hx of PTSD who presents to [facility] secondary to intractable n/v x 1 day. Patient is a known case of cyclical nausea and vomiting with multiple admissions in past and evaluation. Colonoscopy 07/2018- No recall was recommended. No associated diarrhea Prior hx of similar symptoms with admissions. Leucocytosis has resolved. Work up- LFTs and lipase WNL, CT abd/pelvis- ? Mild nonspecific colitis of right colon, mild colonic diverticulosis, fibroid uterus, UA -neg for infection, CXR- no active disease. -Discontinued IV narcotics yesterday. Doing well -Not using IV anti emetics now -GI consulted- no further recommendations except PPI once a day on discharge. (2) Hypomagnesemia: Resolved (3) Hypokalemia: On IV NS with k supplement- Discontinue Resolved (4) CAD (coronary artery disease): No chest pain or shortness of breath No acute EKG changes, troponin negative Continue ASA, statin, metoprolol, lisinopril for risk reduction management (5) Hypertension: Blood pressure slightly elevated. Ok to restart HCTZ which was held on admission Continue amlodipine, lisinopril and metoprolol (6) Chronic pain: Patient is a known case of chronic pain syndrome, seen by pain management in the past. Does have lumbosacral radiculopathic pain, chronic, sacroiliitis as per prior notes. At home she is on fentanyl 37 mcg q [address] fentanyl patch day of admission morning as she removed her previous patch but did not do so secondary to ill feeling -Restart fentanyl per home med dosage 37 mcg and discontinue IV narcotics and PO narcotics -will avoid nsaids given hx of chronic gastritis (7) Dyslipidemia: continue statin (8) Depression: Mood currently stable Patient is on multiple antidepressant/antipsychotics including trazodone, Abilify, amitriptyline, mirapex, BuSpar. Held Mirapex, Trazodone on admission, Amitriptyline dose reduced to 25 mg from 50 mg. -QTC has come down to 442 -Patient had a psychiatry appt today, will get one for tomorrow. Can reviewe the medication list tomorrow and follow up outpatient (9) Restless leg syndrome: -Holding Mirapex due to QTC prolongation. She only takes it prn at home (10) Hypothyroidism: TSH- Normal Continue levothyroxine (11) Hyperglycemia: no hx of T2DM HBA1C 6.4. Discontinue accuchecks (12) DVT prophylaxis: -SCDS and SQ heparin, per records hx of PE Disposition: Ok to discharge today evening once able to tolerate PO, Agreeable with the plan Follow up: PCP Dr. Spann upon discharge Subjective Patient is feeling better. No vomiting since admitted. Nausea has improved as well. Abdominal pain has improved Tolerating clear liquid diet well. Eager to advance diet. Physical Exam Vital Signs (Past 24 Hours): Last Vital Signs Temp 36.6 C 01/27/19 07:05 Pulse 64 01/27/19 10:28 Resp 18 01/27/19 07:05 BP 170/95 H 01/27/19 07:05 Pulse Ox 92 01/27/19 07:05 Physical Exam: GENERAL- AAOX3, No acute distress, anxious LUNGS- Air entry bilaterally equal. No rales, rhonchi, crackles, wheezes heard. HEART- Regular rate and rhythm. No murmurs ABDOMEN- Soft, non tender, non distended, Bowel sounds heard. EXTREMITIES- Good peripheral pulses, no edema
[2019-01-27] MEDS ORDERED: hydroCHLOROthiazide 25 MG TAB PO SCH (11:15)
[2019-01-27] MEDS ORDERED: INSULIN REGULAR 250 UNITS in SODIUM CHLORIDE 0.9% 247.5 ML IV SCH (11:15)
[2019-01-27 12:49] LABS: BUN Creatinine Ratio 12.7 (10-20); Calcium 9.1 mg/dl (8.5-10.1); Creatinine Clr Calc Pharmacy 64.4 ml/min; Est GFR (African American) 82.2; Est GFR (Non-African American) 70.9; Magnesium 1.8 mg/dl (1.8-2.4); Phosphorus 2.8 mg/dl (2.5-4.9); Potassium 4.1 mmol/L (3.5-5.1)
[2019-01-27] MEDS ORDERED: INSULIN ASPART 100 UNITS/ML 3 ML PEN SC SCH (13:00)
--- NOTE | 2019-01-27 15:40 | Discharge Summary ---
Date of Service January 27, 2019 Admission HPI Per Admitting Provider This is a 68 yr old F with signifcant PMH of CAD, HTN, HLD, Hypothyroidism, Chronic pain syndrome, multiple thoracic/lumbar spinal surgeries, post polio syndrome, hx of PTSD who presents to [facility] secondary to intractable n/v x 1 day. No family at bedside. She has hx of cyclic vomiting syndrome. Last time > 1 year ago. Complains of chills, sweats, lightheaded, dizziness, nausea, recurrent emesis, blood streaked emesis, diffuse abdominal pain. Abdominal pain is constant, diffuse, described as "aching," nothing makes better or worse. Currently 8/10. Poor appetite, unable to tolerate anything po. No new change in medications except increase in amitriptyline from 25mg to 50mg. States her fentanyl patch was removed yesterday morning and she did not place another one due to feeling so poorly. She has a port a cath in [facility] secondary to her recurrent CVS. She denies recent illness, syncope, fall, documented fever, chest pain, palpitations, sob, diarrhea, dysuria, hematuria, increased urg/freq with urination, hematochezia, melena. Last BM yesterday, normal for her. Principal Diagnosis 1. Cyclic Vomiting Syndrome 2. Hypomagnesemia 3. Hypokalemia 4. Prolonged QTC SECONDARY DIAGNOSIS ON DISCHARGE 1. Hypothyroidism 2. Depression/Anxiety 3. Chronic pain syndrome 4. CAD 5. Pre diabetes 6. Hypertension 7. Dyslipidemia Discharge Exam GENERAL- AAOX3, No acute distress LUNGS- Air entry bilaterally equal. No rales, rhonchi, crackles, wheezes heard. HEART- Regular rate and rhythm. No murmurs ABDOMEN- Soft, non tender, non distended, Bowel sounds heard. EXTREMITIES- Good peripheral pulses, no edema Discharge Data Allergies Allergy/AdvReac Type Severity Reaction Status Date / Time latex Allergy Intermediate RASH Verified 01/25/19 14:31 nickel Allergy Intermediate SEVERE Verified 01/25/19 14:31 DERMATITIS NSAIDS (Non-Steroidal Allergy Intermediate HX OF Verified 01/25/19 14:31 Anti-Inflamma BLEEDING ULCERS aspirin AdvReac Intermediate bleeding Verified 01/25/19 14:31 ulcers Consultations 01/25/19 15:14 ED Decision to Admit Stat 01/25/19 16:21 Consult Gastroenterology Routine 01/25/19 19:15 Consult Case Management - Discharge Planning Routine Ordered Studies 01/25/19 12:19 CT abd pelvis IV con only Stat Hospital Course (1) Cyclic vomiting syndrome: This is a 68 yr old F with significant PMH of CAD, HTN, HLD, Hypothyroidism, Chronic pain syndrome, multiple thoracic/lumbar spinal surgeries, post polio syndrome, hx of PTSD who presents to [facility] secondary to intractable n/v x 1 day. Patient is a known case of cyclical nausea and vomiting with multiple admissions in past and evaluation. Colonoscopy 07/2018- No recall was recommended. No associated diarrhea Prior hx of similar symptoms with admissions. Leucocytosis has resolved. Work up- LFTs and lipase WNL, CT abd/pelvis- ? Mild nonspecific colitis of right colon, mild colonic diverticulosis, fibroid uterus, UA -neg for infection, CXR- no active disease. -Tolerating advanced diet- regular well -Discontinued IV narcotics. Doing well -Not using IV anti emetics now -GI consulted- no further recommendations except PPI once a day on discharge. (2) Hypomagnesemia: Resolved (3) Hypokalemia: On IV NS with k supplement- Discontinue Resolved (4) CAD (coronary artery disease): No chest pain or shortness of breath No acute EKG changes, troponin negative Continue ASA, statin, metoprolol, lisinopril for risk reduction management (5) Hypertension: Blood pressure slightly elevated. Restarted held HCTZ today Continue amlodipine, lisinopril and metoprolol (6) Chronic pain: Patient is a known case of chronic pain syndrome, seen by pain management in the past. Does have lumbosacral radiculopathic pain, chronic, sacroiliitis as per prior notes. At home she is on fentanyl 37 mcg q [address] fentanyl patch day of admission morning as she removed her previous patch but did not do so secondary to ill feeling -Didnt receive fentanyl patch while in the hospital -Received IV Narcotics for a day - discontinued and doing well without it -Continue with Fentanyl patch q72 hours as prior to home -Tramadol 50 mg PO TID prn (7) Dyslipidemia: continue statin (8) Depression: Mood currently stable Patient is on multiple antidepressant/antipsychotics including trazodone, Abilify, amitriptyline, mirapex, BuSpar. Held Mirapex, Trazodone on admission, Amitriptyline dose reduced to 25 mg from 50 mg due to prolonged QTC. However, will continue with all home meds at [employer] doses and recommend follow up with psychiatry in 1-2 days (already had an appt scheduled for today which she will reschedule in next few days) -QTC has come down to 442 -Monitor QTC outpatient while on multiple medications (9) Restless leg syndrome: Restarted Mirapex PRN . She only takes it once in a while (10) Hypothyroidism: TSH- Normal Continue levothyroxine (11) Hyperglycemia: No hx of T2DM HBA1C 6.4. Discontinued accuchecks Need to follow up outpatient Lifestyle modifications discussed (12) DVT prophylaxis: -SCDS and SQ heparin, per records hx of PE Disposition: Ok to discharge today Eager to be discharged Follow up: PCP Dr. Spann upon discharge Total Time Total Time Spent Total Time Spent (In Minutes): 25 minutes Discharge Plan Discharge Items Patient Disposition: Home - Self-Care Reason For Visit: CYCLIC VOMITING SYNDROME Discharge Diagnosis: Cyclic Vomiting Syndrome Condition: Good Discharge Goals: Decrease discomfort Activity: Resume your previous activity Non-emergency contact: Primary Care Provider Call non-emergency contact if: your symptoms worsen Follow-up/Referrals: Charanjit Spann MD [Primary Care Provider] - 01/31/19 11:20 am Diet: Low Fat and Low Sodium (2gm) Addtl Provider Instructions: MEDICATION CHANGES: No changes made to your medication regimen Prescriptions: Continued atorvastatin 40 mg Tablet 40 mg PO QAM RF: 0 amlodipine 5 mg Tablet 5 mg PO QAM RF: 0 aspirin 81 mg Tablet,Delayed Release (Dr/Ec) 81 mg PO QAM RF: 0 levothyroxine 75 mcg Tablet 75 mcg PO QAM RF: 0 buspirone 10 mg Tablet 10 mg PO TID RF: 0 lisinopril 5 mg Tablet 5 mg PO QAM RF: 0 hydrochlorothiazide 25 mg Tablet 25 mg PO QAM RF: 0 metoprolol tartrate 25 mg Tablet 25 mg PO BID RF: 0 tizanidine 4 mg Capsule 4 mg PO Q8H PRN (Reason: Pain) RF: 0 hydroxyzine HCl 50 mg Tablet 50 mg PO HS RF: 0 amitriptyline 50 mg Tablet 50 mg PO HS RF: 0 aripiprazole 10 mg Tablet 10 mg PO HS RF: 0 trazodone 100 mg tablet 200 mg PO HS RF: 0 tramadol 50 mg Tablet 50 mg PO TID PRN (Reason: Pain) RF: 0 pramipexole 0.125 mg Tablet 0.125 mg PO HS RF: 0 fentanyl 37.5 mcg/hour Patch 72 Hour 1 patch TRANSDERMAL Q72H RF: 0 Stand-Alone Forms: [facility]/Other Patient Handouts: Prediabetes, Diabetes Meal Planning Discharge Orders: Discharge Order (Routine); Ordered 01/27/19 Ordered By: Ruma Ramsey Admission Data Admit Date/Time: 01/25/19 16:21 Attending Provider: Ruma Ramsey Admit Provider: Nanda Manning Primary Care Provider: Charanjit Spann Other Providers: Nanda Manning ; Leydi Connor Service: Telemetry Medical Other Pending Studies at Discharge: No
== END 2019-01-27 16:23 | disposition home or self-care (01) ==
LOC: ED 11:05 → 2W 11:05 → SUATTDRO 16:21 → 2W 18:45

== ENCOUNTER 2019-05-12 09:46 | Inpatient (IN) ==
[2019-05-12] MEDS ORDERED: DiphenhydrAMINE HCL 50 MG/ML VIAL IV STA (10:44)
[2019-05-12] MEDS ORDERED: SODIUM CHLORIDE 0.9% 1000ML 2,000 ML IV ONE (10:44)
[2019-05-12] MEDS ORDERED: ONDANSETRON INJ 2 MG/ML 2 ML VIAL IV STA (10:44)
[2019-05-12] MEDS ORDERED: MoRPHine SULFATE 4 MG/ML 1 ML CARP\\VIAL IV STA ×2 (10:44→13:19)
[2019-05-12 11:08] LABS: Basophils # (auto) 0.04 K/uL (0-0.2); Basophils % (auto) 0.3 %; Eosinophils # (auto) 0.09 K/uL (0-0.5); Eosinophils % (auto) 0.6 %; Hematocrit (blood only) 43.3 % (37-47); Hemoglobin 15.4 g/dL (12.0-16.0); Immature Granulocytes # (auto) 0.02 K/uL (0.00-0.02); Immature Granulocytes % (auto) 0.1 %; Lymphocytes # (auto) 3.39 K/uL (1.2-3.4); Lymphocytes % (auto) 22.3 %; Mean Corpuscular Hgb Conc 35.6 g/dL (32-36); Mean Corpuscular Volume 87.8 fL (80-100); Mean Platelet Volume 9.4 fL (7.4-10.4); Monocytes # (auto) 0.95 K/uL (0.11-0.59); Monocytes % (auto) 6.3 %; Neutrophils # (auto) 10.68 K/uL (1.4-6.5); Neutrophils % (auto) 70.4 %; Platelet Count 301 K/uL (130-400); RDW Coefficient of Variation 14.5 % (11.5-14.5); RDW Standard Deviation 46.4 fL (36.4-46.3); Red Blood Count 4.93 M/uL (4.2-5.4); White Blood Count 15.17 K/uL (4.8-10.8)
[2019-05-12 11:16] LABS: Alanine Aminotransferase 27 U/L (12-78); Albumin Level 4.1 gm/dl (3.4-5.0); Aspartate Aminotransferase 21 U/L (15-37); Blood Urea Nitrogen 17 mg/dl (7-18); Calcium 9.2 mg/dl (8.5-10.1); Carbon Dioxide 22 mmol/L (21-32); Chloride 103 mmol/L (98-107); Creatinine Clr Calc Pharmacy 55.1 ml/min; Est GFR (African American) 66.4; Est GFR (Non-African American) 57.3; Glucose 165 mg/dl (70-99); Potassium 3.2 mmol/L (3.5-5.1); Sodium 138 mmol/L (136-145)
[2019-05-12 11:21] LABS: Albumin Globulin Ratio 1.1 (0.9-2); Alkaline Phosphatase 113 U/L (45-117); Bilirubin,Total 0.7 mg/dl (0.2-1); Globulin 3.8 gm/dl (2.5-4.0); Total Protein 7.9 gm/dl (6.4-8.2); Troponin I < 0.015 ng/ml (0-0.045)
--- NOTE | 2019-05-12 12:05 | CT Scan Report ---
ABDOMEN AND PELVIS CT WITHOUT CONTRAST CT DOSE: 645.69 mGy.cm HISTORY: Acute generalized abdominal pain with nausea and vomiting ab pain, n/v TECHNIQUE: Multiaxial CT images of the abdomen and pelvis were performed without contrast. A dose lo wering technique was utilized adhering to the principles of ALARA. COMPARISON STUDY: CT abdomen and pelvis 04/20/2019. FINDINGS: Subsegmental left greater than right bibasilar opacities suggest atelectasis/scarring. Additionally, there are a few pleural calcifications noted about the left lung base. There is no pneumatosis or pne umoperitoneum. The imaged inferior cardiac chambers are unremarkable. Limited evaluation of the solid abdominal organs without the use of IV contrast. Spleen, gallbladder, liver, pancreas and adrenal glands appear unremarkable. No biliary ductal dilation. Mild nonspecific bilateral perinephric stranding. 4 mm nonobstructing calculus of the superior pole left kidney. No r enal or ureteral calculi identified. Ureters and urinary bladder are within normal limits. Pedunculat ed leiomyoma about the posterior uterine fundus redemonstrated, 1.8 cm. No adnexal mass lesions. Calc ified plaque of the abdominal aorta without aneurysm. No adenopathy. Moderate sized hiatal hernia. No bowel obstruction. Long segment mild circumferential bowel wall thic kening is noted about the ascending colon. No significant surrounding pericolonic stranding. Colonic diverticulosis without acute diverticulitis. Appendix is not definitively seen. No secondary signs of acute appendicitis. There is no ascites or mesenteric inflammation. Postoperative changes of the pepe tral abdominal wall. Demineralized appearance of the bones with multilevel degenerative changes of th e spine, pelvis and hips. Evidence of prior hardware removal about the lumbar spine. Calcified granul omata about the subcutaneous gluteal distributions. Chronic sacroiliitis changes with unchanged scler osis of the SI joints. Levoscoliosis of the thoracolumbar spine. IMPRESSION: 1. No bowel obstruction, pneumatosis or pneumoperitoneum. 2. Mild circumferential wall thickening about the ascending colon. Although this may be secondary to partial distention, a nonspecific colitis is a differential consideration. Consider correlation with colonoscopy if clinically warranted. 3. Nonobstructing left nephrolithiasis. 4. Fibroid uterus. 5. Moderate sized hiatal hernia. 6. Additional findings as above. Electronically signed by: Ariel López M.D. 05/12/2019 12:04 PM
[2019-05-12] MEDS ORDERED: PROMETHAZINE 25 MG/51 ML BAG IV STA (12:29)
[2019-05-12] MEDS ORDERED: PROCHLORPERAZINE 2 ML IV ONE (13:19)
[2019-05-12] MEDS ORDERED: SODIUM CHLORIDE 0.9% 1000ML 1,000 ML IV ONE (13:19)
[2019-05-12] MEDS ORDERED: POTASSIUM CHLORIDE / WTR 10 MEQ/100 ML PLCT IV ONE (15:06)
--- NOTE | 2019-05-12 17:20 | History & Physical Report ---
Date of Service May 12, 2019 Assessment & Plan (1) Intractable nausea and vomiting: This is a 69yo F with a PMH of cyclical vomiting syndrome, CAD (s/p stent), HTN, hypothyroidism, chronic pain syndrome and other medical problems listed below who presents with intractable vomiting starting last evening. -History of CVS, with a port in place -Intractable vomiting since yesterday -Will continue IV Phenergan as needed, IV pepcid BID -Monitor hgb -- currently stable at 15.4 -Replaced Fentanyl patch for pain control -IV fluids, clears as tolerated (2) Hypokalemia: Potassium 3.2 -Replacing with K riders (3) CAD (coronary artery disease): H/o stent in 2017 -EKG without ischemic change, troponin negative -Continue aspirin, statin, Lopressor (4) Hypertension: Continue home amlodipine, Lopressor -Holding HCTZ, lisinopril in setting of vomiting, dehydration (5) Restless leg syndrome: Continue Mirapex (6) Hypothyroidism: Continue levothyroxine (7) Mood disorder: Recently stopped Abilify and started Latuda? Need to confirm -Trazodone HS DVT Ppx: SCDs in setting of blood-tinged emesis. May need to transition to SQ Lovenox if hgb remains stable Code status: FULL PCP: Maria Ines Dispo: Med tele observation. Plan to return home once medically stable. Patient seen in collaboration with Dr. De La Cruz. Please see addendum. History of Present Illness Chief Complaint: cyclical vomiting Primary Care Provider: Charanjit Spann MD This is a 69yo F with a PMH of cyclical vomiting syndrome, CAD (s/p stent), HTN, hypothyroidism, chronic pain syndrome and other medical problems listed below who presents with intractable vomiting starting last evening. Patient has history of cyclic vomiting syndrome, most recently admitted in January 2018 but seen in the ED earlier this month for similar symptoms. Endorses diffuse abdominal pain that is constant and aching, similar to previous episodes of intractable vomiting. Has had multiple episodes of bilious vomit with blood- tinged episodes today. Tried taking PO Phenergan at home last evening but could not tolerate. Removed her Fentanyl patch yesterday and did not place another due to feeling poorly. Has a port a cath in L chest wall due to recurrent cyclical vomiting syndrome. Had diarrhea 2 days ago that has since resolved. Denies fever, chills, lightheadedness, visual changes, chest pain, palpitations, SOB, dysuria, diarrhea or constipation. Allergies Allergy/AdvReac Type Severity Reaction Status Date / Time latex Allergy Intermediate RASH Verified 05/12/19 11:23 nickel Allergy Intermediate SEVERE Verified 05/12/19 11:23 DERMATITIS NSAIDS (Non-Steroidal Allergy Intermediate HX OF Verified 05/12/19 11:23 Anti-Inflamma BLEEDING ULCERS aspirin AdvReac Intermediate bleeding Verified 05/12/19 11:23 ulcers Home Medications Home Medications Medication Instructions Recorded Confirmed Type amlodipine [Norvasc] 5 mg PO QAM 12/13/18 05/12/19 History aspirin 81 mg PO QAM 12/13/18 05/12/19 History atorvastatin [Lipitor] 40 mg PO QAM 12/13/18 05/12/19 History buspirone 10 mg PO TID 12/13/18 05/12/19 History hydrochlorothiazide 25 mg PO QAM 12/13/18 05/12/19 History hydroxyzine HCl 50 mg PO HS 12/13/18 05/12/19 History levothyroxine 75 mcg PO QAM 12/13/18 05/12/19 History lisinopril 5 mg PO QAM 12/13/18 05/12/19 History metoprolol tartrate 25 mg PO BID 12/13/18 05/12/19 History tizanidine [Zanaflex] 4 mg PO BID PRN 12/13/18 05/12/19 History fentanyl 1 patch TRANSDERMAL Q72H 01/25/19 05/12/19 History pramipexole [Mirapex] 0.125 mg PO HS 01/25/19 05/12/19 History tramadol [Ultram] 50 mg PO Q8 PRN 01/25/19 05/12/19 History potassium chloride [Klor-Con M20] 20 meq PO BID 03/30/19 05/12/19 History amitriptyline 25 mg PO HS 05/12/19 05/12/19 History ipratropium-albuterol [Combivent 1 puff INHALATION QID 05/12/19 05/12/19 History Respimat] lurasidone [Latuda] 20 mg PO HS 05/12/19 05/12/19 History ondansetron HCl [Zofran] 8 mg PO Q6H PRN 05/12/19 05/12/19 History polyethylene glycol 3350 17 g PO DAILY PRN 05/12/19 05/12/19 History prochlorperazine maleate 10 mg PO BID PRN 05/12/19 05/12/19 History promethazine 25 mg PO Q6H PRN 05/12/19 05/12/19 History promethazine [Phenergan] 25 mg TX Q6H PRN 05/12/19 05/12/19 History trazodone 200 mg PO HS 05/12/19 05/12/19 History Past Med/Surg History Medical History CAD (coronary artery disease) (Chronic) Hypertension (Chronic) Myocardial Infarction (Chronic) 2 YEARS AGO Pulmonary embolism (Chronic) 2 YEARS OLD (UNSURE OF REASON) Deep vein thrombosis (Chronic) 4 YEARS AGO Migraine (Chronic) Restless leg syndrome (Chronic) Anxiety (Chronic) Depression (Chronic) Post traumatic stress disorder (Chronic) Anemia (Chronic) HX OF Hypothyroidism (Chronic) Colitis (Chronic) Osteoarthritis (Chronic) Degenerative disc disease (Chronic) Hyperlipidemia Surgical History History of heart artery stent (Chronic) 2017- STENT PLACED AT [facility] (DR. DAVILA) History of adenoidectomy (Chronic) History of tonsillectomy (Chronic) History of appendectomy (Chronic) History of colonoscopy (Chronic) History of esophagogastroduodenoscopy (EGD) (Chronic) Fusion of spine (Chronic) LUMBAR History of laminectomy (Chronic) LUMBAR Ovarian cyst (Chronic) X 2 History of anesthesia reaction (Chronic) WOKE UP IN MIDDLE OF SPINAL SURGERIES History of cataract surgery (Chronic) LEFT Family History Other Hypertension Social History Preferred Language: Thai Communication Ability: Effective Beliefs That Will Affect Care: None marital status: Current Living Situation: Alone current occupational status: retired Feels Safe at Home: Yes Smoking Status: Never smoker Second Hand Exposure: No Hx Alcohol Use: No Hx Substance Use: No Review of Systems Review of Systems: At least ten systems reviewed and negative except as noted in the HPI. Physical Exam Physical Exam: General Appearance: WD/WN, ill appearing 2/2 pain, vomiting. Cooperative with exam Head: normocephalic, atraumatic Eyes: normal inspection, PERRL, EOMI ENT: hearing grossly normal, pharynx normal (dry mucous membranes) Neck: supple, no JVD, no adenopathy Respiratory/Chest: Left chest wall port. Lungs clear to auscultation. No wheezes, rales or rhonci. No respiratory distress or accessory muscle use Cardiovascular: regular rate, rhythm, no murmur, normal peripheral pulses Abdomen/GI: normal bowel sounds, soft, diffusely tender to palpation, no guarding Extremities/Musculoskelatal: normal inspection, no calf tenderness, normal capillary refill, no pedal edema Neurologic/Psych: alert, anxious mood/affect, oriented x 3 Skin: normal color, warm/dry Results & Data Vital Signs (Past 12 Hours) Vital Signs Temp Pulse Pulse Resp BP BP Pulse Ox 05/12/19 17:00 84 154/71 H 95 05/12/19 16:09 88 L 05/12/19 16:00 80 18 168/86 H 91 05/12/19 14:45 98 H 17 168/88 H 97 05/12/19 13:34 102 H 19 148/82 H 92 05/12/19 12:01 99 H 20 165/87 H 05/12/19 11:22 86 17 91 05/12/19 11:05 83 18 165/87 H 89 L 05/12/19 10:44 94 05/12/19 09:39 37.0 C 93 H 20 127/81 94 Laboratory Results Short CBC 05/12/19 Range/Units 10:11 WBC 15.17 H (4.8-10.8) K/uL Hgb 15.4 (12.0-16.0) g/dL Hct 43.3 (37-47) % Plt Count 301 (130-400) K/uL BMP 05/12/19 10:11 Sodium 138 Potassium 3.2 L Chloride 103 Carbon Dioxide 22 BUN 17 Creatinine 0.99 Glucose 165 H Calcium 9.2 Cardiac Enzymes 05/12/19 05/12/19 Range/Units 10:11 10:11 Troponin I < 0.015 Cancelled (0-0.045) ng/ml Liver Function 05/12/19 Range/Units 10:11 Total Bilirubin 0.7 (0.2-1) mg/dl AST 21 (15-37) U/L ALT 27 (12-78) U/L Alkaline Phosphatase 113 (45-117) U/L Albumin 4.1 (3.4-5.0) gm/dl Diagnostic Findings CT abd/pelvis: IMPRESSION: 1. No bowel obstruction, pneumatosis or pneumoperitoneum. 2. Mild circumferential wall thickening about the ascending colon. Although this may be secondary to partial distention, a nonspecific colitis is a differential consideration. Consider correlation with colonoscopy if clinically warranted. 3. Nonobstructing left nephrolithiasis. 4. Fibroid uterus. 5. Moderate sized hiatal hernia. 6. Additional findings as above. ECG Rhythm: sinus rhythm Findings: + PVC Additional Comments: QTC of 466 (has been prolonged in the past) Supervising Physician Co-Signing Physician Notes I saw this patient with the physician food and nutrition services assistant, I participated in the history, physical, review of systems, and physical exam. I reviewed the medications with the patient and the physician food and nutrition services assistant and helped reconcile the medications. I helped take a detailed family and social history as well. I formulated the assessment and plan personally with the physician food and nutrition services assistant and went over it with the patient. ROS-No Headache, No Visual Changes, + Nausea, + Vomiting, No Fever, No Chills, No Neck Pain or Stiffness, No Chest Pain, No Palpitations, No SOB, No ASENCIO, No Cough, No Sputum, No Wheezing, No Abdominal Pain, No Diarrhea, No Hematemesis, No Hemoptysis, No Unexpected Weight Loss, No Flank pain, No Melena, No Hematochezia, No Frequency, No Urgency, No Burning, No Hematuria, No Rashes, No Diaphoresis. Appetite is Normal Physical Exam Gen-AAO x 3, NAD, Afebrile, obese, tearful Head-NCAT, EOMI, PERRLA, Anicteric Sclera, No Posterior Pharyngeal Erythema Neck-Supple, No JVD, No Thyromegaly, No Masses, No LAD, No Bruits Lungs-Clear to Auscultation Bilaterally, No Rales, No Rhonchi, No Wheezing, No Crepitus Chest-No S4, +S1, +S2, No S3, No Murmurs, No Rubs, No Gallops, No Ectopy Abdomen-Soft, Bowel Sounds Present, Non Tender, Non Distended, No Hepatomegaly, No Splenomegaly, No Palpable Masses, No Rebound, No Rigidity, No Guarding Musculoskeletal-Full Range of Motion Bilaterally, No CVAT Extremities-No Cyanosis, No Clubbing, No Edema Nuero-Cranial Nerves II-XII grossly intact, Motor WNL, DTRs WNL, Strength WNL, Non Focal Psych-Normal Mood (1) Intractable nausea and vomiting Vomiting type: cyclical vomiting Qualified Code(s): G43.A1 - Cyclical vomiting, intractable
--- NOTE | 2019-05-12 17:21 | Emergency Department Note ---
Entered by Charlene Diaz acting as a scribe for Oskar Corado MD History of Present Illness General Chief complaint: Vomiting Stated complaint: nausea Time Seen by Provider: 05/12/19 10:32 Source: patient Mode of arrival: ambulatory Limitations: no limitations History of Present Illness Onset (ago): day(s) (last night) Location: head and abdomen Severity: similar to prior episodes (Cyclic vomiting syndrome) Pain Consistency: + constant Associated symptoms: + headaches, + nausea/vomiting and + other (The patient complains of diarrhea. The patient denies abdominal pain. ) Treatments prior to arrival: none ( Ferrogen ) The patient is a 69 white female w/ PMHx CAD, hypertension, myocardial infarction, heart artery stent, pulmonary embolism, DVT, anxiety, depression, PTSD, adenoidectomy, tonsillectomy, anemia, hypothyroidism, colitis, appendectomy, fusion of spine, DDD, cyclical vomiting, ovarian cystectomy, and appendectomy who presents to the ED w/ CC of constant vomiting beginning last night. She states that these symptoms are similar to past episodes of cyclical vomiting. The patient complains of nausea and headache. She notes that she had diarrhea two days ago. She reports using phenergan but states that she vomited it back up. The patient denies abdominal pain. The patient denies taking blood thinners, trauma, changes in diet, recent travel, or sick contacts. The patient had a negative CT non-contrast completed on 04/20/2019. Home Medications Home Medications Medication Instructions Recorded Confirmed Type amlodipine [Norvasc] 5 mg PO QAM 12/13/18 05/12/19 History aspirin 81 mg PO QAM 12/13/18 05/12/19 History atorvastatin [Lipitor] 40 mg PO QAM 12/13/18 05/12/19 History buspirone 10 mg PO TID 12/13/18 05/12/19 History hydrochlorothiazide 25 mg PO QAM 12/13/18 05/12/19 History hydroxyzine HCl 50 mg PO HS 12/13/18 05/12/19 History levothyroxine 75 mcg PO QAM 12/13/18 05/12/19 History lisinopril 5 mg PO QAM 12/13/18 05/12/19 History metoprolol tartrate 25 mg PO BID 12/13/18 05/12/19 History tizanidine [Zanaflex] 4 mg PO BID PRN 12/13/18 05/12/19 History fentanyl 1 patch TRANSDERMAL Q72H 01/25/19 05/12/19 History pramipexole [Mirapex] 0.125 mg PO HS 01/25/19 05/12/19 History tramadol [Ultram] 50 mg PO Q8 PRN 01/25/19 05/12/19 History potassium chloride [Klor-Con M20] 20 meq PO BID 03/30/19 05/12/19 History amitriptyline 25 mg PO HS 05/12/19 05/12/19 History ipratropium-albuterol [Combivent 1 puff INHALATION QID 05/12/19 05/12/19 History Respimat] lurasidone [Latuda] 20 mg PO HS 05/12/19 05/12/19 History ondansetron HCl [Zofran] 8 mg PO Q6H PRN 05/12/19 05/12/19 History polyethylene glycol 3350 17 g PO DAILY PRN 05/12/19 05/12/19 History prochlorperazine maleate 10 mg PO BID PRN 05/12/19 05/12/19 History promethazine 25 mg PO Q6H PRN 05/12/19 05/12/19 History promethazine [Phenergan] 25 mg NV Q6H PRN 05/12/19 05/12/19 History trazodone 200 mg PO HS 05/12/19 05/12/19 History Allergies Allergy/AdvReac Type Severity Reaction Status Date / Time latex Allergy Intermediate RASH Verified 05/12/19 11:23 nickel Allergy Intermediate SEVERE Verified 05/12/19 11:23 DERMATITIS NSAIDS (Non-Steroidal Allergy Intermediate HX OF Verified 05/12/19 11:23 Anti-Inflamma BLEEDING ULCERS aspirin AdvReac Intermediate bleeding Verified 05/12/19 11:23 ulcers Past Med/Surg History Medical History CAD (coronary artery disease) (Chronic) Hypertension (Chronic) Myocardial Infarction (Chronic) 2 YEARS AGO Pulmonary embolism (Chronic) 2 YEARS OLD (UNSURE OF REASON) Deep vein thrombosis (Chronic) 4 YEARS AGO Migraine (Chronic) Restless leg syndrome (Chronic) Anxiety (Chronic) Depression (Chronic) Post traumatic stress disorder (Chronic) Anemia (Chronic) HX OF Hypothyroidism (Chronic) Colitis (Chronic) Osteoarthritis (Chronic) Degenerative disc disease (Chronic) Hyperlipidemia Surgical History History of heart artery stent (Chronic) 2017- STENT PLACED AT [facility] (DR. DAVILA) History of adenoidectomy (Chronic) History of tonsillectomy (Chronic) History of appendectomy (Chronic) History of colonoscopy (Chronic) History of esophagogastroduodenoscopy (EGD) (Chronic) Fusion of spine (Chronic) LUMBAR History of laminectomy (Chronic) LUMBAR Ovarian cyst (Chronic) X 2 History of anesthesia reaction (Chronic) WOKE UP IN MIDDLE OF SPINAL SURGERIES History of cataract surgery (Chronic) LEFT Family History Other Hypertension Social History Preferred Language: Maori Communication Ability: Effective Beliefs That Will Affect Care: None marital status: Current Living Situation: Alone current occupational status: retired Feels Safe at Home: Yes Smoking Status: Never smoker Second Hand Exposure: No Hx Alcohol Use: No Hx Substance Use: No Review of Systems See HPI for pertinent positives & negatives. and A total of 10 systems reviewed and were otherwise negative Physical Exam Vital Signs Vital Signs - 24 hr 05/12/19 09:39 05/12/19 10:44 05/12/19 11:05 Temperature 37.0 C Temperature Source Oral Sepsis Recent Fever Within 48 Hours No Sepsis New/Unexplained Change in Mental Status No Sepsis Action Taken by Nursing No Action Required Oxygen Flow Rate - Titration Pulse Oximetry Post Tiitration Pulse Rate 93 H 83 Pulse Rate [Apical] Pulse Rate from SpO2 Sensor 87 Pulse Rhythm [Apical] Respiratory Rate 20 18 Respiratory Effort / Characteristics Non-Labored Spontaneous Respiratory Depth Normal Respiratory Pattern Blood Pressure 127/81 165/87 H Blood Pressure [Right Arm] Blood Pressure Mean 96 113 Blood Pressure Mean [Right Arm] Blood Pressure Position Lying Blood Pressure Position [Right Arm] Pulse Oximetry 94 94 89 L Oxygen Delivery Method Room Air Room Air Oxygen Flow Rate 05/12/19 11:22 05/12/19 12:01 05/12/19 13:34 Temperature Temperature Source Sepsis Recent Fever Within 48 Hours Sepsis New/Unexplained Change in Mental Status Sepsis Action Taken by Nursing Oxygen Flow Rate - Titration Pulse Oximetry Post Tiitration Pulse Rate 86 Pulse Rate [Apical] 99 H 102 H Pulse Rate from SpO2 Sensor 86 Pulse Rhythm [Apical] Regular Respiratory Rate 17 20 19 Respiratory Effort / Characteristics Non-Labored Non-Labored Respiratory Depth Normal Normal Respiratory Pattern Regular Blood Pressure Blood Pressure [Right Arm] 165/87 H 148/82 H Blood Pressure Mean Blood Pressure Mean [Right Arm] 113 104 Blood Pressure Position Blood Pressure Position [Right Arm] Sitting Pulse Oximetry 91 92 Oxygen Delivery Method Room Air Room Air Oxygen Flow Rate 05/12/19 14:45 05/12/19 16:00 05/12/19 16:09 Temperature Temperature Source Sepsis Recent Fever Within 48 Hours Sepsis New/Unexplained Change in Mental Status Sepsis Action Taken by Nursing Oxygen Flow Rate - Titration 2 Pulse Oximetry Post Tiitration 94 Pulse Rate Pulse Rate [Apical] 98 H 80 Pulse Rate from SpO2 Sensor Pulse Rhythm [Apical] Regular Respiratory Rate 17 18 Respiratory Effort / Characteristics Respiratory Depth Respiratory Pattern Blood Pressure Blood Pressure [Right Arm] 168/88 H 168/86 H Blood Pressure Mean Blood Pressure Mean [Right Arm] 114 113 Blood Pressure Position Blood Pressure Position [Right Arm] Sitting Pulse Oximetry 97 91 88 L Oxygen Delivery Method Room Air Room Air Room Air Oxygen Flow Rate 0 GENERAL: Uncomfortable appearing, well nourished, mild distress. EYE EXAM: Normal conjunctiva. PERRL, no anisocoria and EOM's grossly intact w/o pain. OROPHARYNX: Moist mucus membranes. Grossly normal dentition. NECK: Supple, no nuchal rigidity, no adenopathy, non-tender. no signs of meningismus. CHEST: She has a port in the left chest. LUNGS: Clear to auscultation. Normal chest wall mechanics. HEART: NSR, no MRG. ABDOMEN: Abdomen soft, normo-active bowel sounds, no masses, no rebound or guarding. Mild diffuse abdominal discomfort, not peritonitic. BACK: No CVA TTP. SKIN: No rashes and no bruising. UPPER EXTREMITIES: Upper extremities are grossly normal. LOWER EXTREMITIES: No pitting edema. No calf pain. NEURO EXAM: A&O x3, cranial nerves II-XII grossly intact, normal speech, moves all 4 extremities on command w/o issue. Course 1041: Past medical records reviewed. The patient was evaluated in room A10. A complete history and physical examination was performed. The patient had a negative CT non-contrast completed on 04/20/2019. 1310: The patient states that her nausea has improved a little. 1454: I reviewed the patient's case with Huong Simental. She will evaluate the patient for further management. Consultations Consultation #1: [id number]: I reviewed the patient's case with Huong Simental. She will evaluate the patient for further management. Time: 14:54 Administered Medications Discontinued Medications Diphenhydramine HCl (Benadryl) 25 mg IV NOW STA Stop: 05/12/19 10:45 Last Admin: 05/12/19 11:01 Dose: 25 mg Documented by: [id number] Sodium Chloride (Nss 1000ml) 2,000 mls @ 999 mls/hr IV .Q2H1M ONE Stop: 05/12/19 12:44 Last Infusion: 05/12/19 13:01 Dose: 0 mls/hr Documented by: [id number] Admin: 05/12/19 11:00 Dose: 999 mls/hr Documented by: [id number] Promethazine HCl (Phenergan) 25 mg in 51 mls @ 204 mls/hr IV NOW STA Stop: 05/12/19 12:43 Last Infusion: 05/12/19 12:55 Dose: 0 mls/hr Documented by: [id number] Admin: 05/12/19 12:40 Dose: 204 mls/hr Documented by: [id number] Prochlorperazine (Compazine) 2 mls @ 1 mls/min IV ONE ONE Stop: 05/12/19 13:20 Last Admin: 05/12/19 13:30 Dose: 1 mls/min Documented by: [id number] Sodium Chloride (Nss 1000ml) 1,000 mls @ 999 mls/hr IV .Q1H1M ONE Stop: 05/12/19 14:19 Last Infusion: 05/12/19 14:37 Dose: 0 mls/hr Documented by: [id number] Admin: 05/12/19 13:36 Dose: 999 mls/hr Documented by: [id number] Potassium Chloride (K Sai / Wtr) 10 meq in 100 mls @ 100 mls/hr IV ONE ONE Stop: 05/12/19 16:05 Last Infusion: 05/12/19 16:32 Dose: 0 mls/hr Documented by: [id number] Admin: 05/12/19 15:30 Dose: 100 mls/hr Documented by: [id number] Morphine Sulfate (Morphine Sulfate) 4 mg IV NOW STA Stop: 05/12/19 10:45 Last Admin: 05/12/19 11:01 Dose: 4 mg Documented by: [id number] Morphine Sulfate (Morphine Sulfate) 4 mg IV NOW STA Stop: 05/12/19 13:20 Last Admin: 05/12/19 13:30 Dose: 4 mg Documented by: [id number] Ondansetron HCl (Zofran) 8 mg IV NOW STA Stop: 05/12/19 10:45 Last Admin: 05/12/19 11:01 Dose: 8 mg Documented by: [id number] Medical Decision Making Differential Diagnosis Differential diagnosis Gastroenteritis, food borne illness, infections, appendicitis, diverticulitis, inflammatory bowel disease, obstruction, GI bleed, biliary pathology, as well as other etiologies were entertained. Medical Records Attestation: I reviewed the patient's medical records. Home Medications Current Medication List: was personally reviewed by me Laboratory Data Attestation: I reviewed the patient's lab results. Result diagrams: 05/12/19 10:11 05/12/19 10:11 Lab Results 05/12/19 05/12/19 05/12/19 Range/Units 10:11 10:11 10:11 WBC 15.17 H (4.8-10.8) K/uL RBC 4.93 (4.2-5.4) M/uL Hgb 15.4 (12.0-16.0) g/dL Hct 43.3 (37-47) % MCV 87.8 (80-100) fL MCH 31.2 (25-34) pg MCHC 35.6 (32-36) g/dL RDW Std Deviation 46.4 H (36.4-46.3) fL RDW Coeff of [place] 14.5 (11.5-14.5) % Plt Count 301 (130-400) K/uL MPV 9.4 (7.4-10.4) fL Immature Gran % (Auto) 0.1 % Neut % (Auto) 70.4 % Lymph % (Auto) 22.3 % [place] % (Auto) 6.3 % Eos % (Auto) 0.6 % Baso % (Auto) 0.3 % Immature Gran # (Auto) 0.02 (0.00-0.02) K/uL Neut # (Auto) 10.68 H (1.4-6.5) K/uL Lymph # (Auto) 3.39 (1.2-3.4) K/uL [place] # (Auto) 0.95 H (0.11-0.59) K/uL Eos # (Auto) 0.09 (0-0.5) K/uL Baso # (Auto) 0.04 (0-0.2) K/uL Sodium 138 (136-145) mmol/L Potassium 3.2 L (3.5-5.1) mmol/L Chloride 103 (98-107) mmol/L Carbon Dioxide 22 (21-32) mmol/L Anion Gap 13.0 H (3-11) BUN 17 (7-18) mg/dl Creatinine 0.99 (0.6-1.2) mg/dl Est Cr Clr Drug Dosing 55.1 ml/min Est GFR ( Amer) 66.4 Est GFR (Non-Af Amer) 57.3 BUN/Creatinine Ratio 17.0 (10-20) Glucose 165 H (70-99) mg/dl Calcium 9.2 (8.5-10.1) mg/dl Magnesium 2.0 Cancelled (1.8-2.4) mg/dl Total Bilirubin 0.7 (0.2-1) mg/dl AST 21 (15-37) U/L ALT 27 (12-78) U/L Alkaline Phosphatase 113 (45-117) U/L Troponin I < 0.015 Cancelled (0-0.045) ng/ml Total Protein 7.9 (6.4-8.2) gm/dl Albumin 4.1 (3.4-5.0) gm/dl Globulin 3.8 (2.5-4.0) gm/dl Albumin/Globulin Ratio 1.1 (0.9-2) Lipase 90 (73-393) U/L Imaging Data Radiologist's Impression: Radiology results as stated below per my review and the radiologist's interpretation: ABDOMEN AND PELVIS CT WITHOUT CONTRAST CT DOSE: 645.69 mGy.cm HISTORY: Acute generalized abdominal pain with nausea and vomiting ab pain, n/v TECHNIQUE: Multiaxial CT images of the abdomen and pelvis were performed without contrast. A dose lowering technique was utilized adhering to the principles of ALARA. COMPARISON STUDY: CT abdomen and pelvis 04/20/2019. FINDINGS: Subsegmental left greater than right bibasilar opacities suggest atelectasis/scarring. Additionally, there are a few pleural calcifications noted about the left lung base. There is no pneumatosis or pneumoperitoneum. The imaged inferior cardiac chambers are unremarkable. Limited evaluation of the solid abdominal organs without the use of IV contrast. Spleen, gallbladder, liver, pancreas and adrenal glands appear unremarkable. No biliary ductal dilation. Mild nonspecific bilateral perinephric stranding. 4 mm nonobstructing calculus of the superior pole left kidney. No renal or ureteral calculi identified. Ureters and urinary bladder are within normal limits. Pedunculated leiomyoma about the posterior uterine fundus redemonstrated, 1.8 cm. No adnexal mass lesions. Calcified plaque of the abdominal aorta without aneurysm. No adenopathy. Moderate sized hiatal hernia. No bowel obstruction. Long segment mild circumferential bowel wall thickening is noted about the ascending colon. No significant surrounding pericolonic stranding. Colonic diverticulosis without acute diverticulitis. Appendix is not definitively seen. No secondary signs of acute appendicitis. There is no ascites or mesenteric inflammation. Postoperative changes of the ventral abdominal wall. Demineralized appearance of the bones with multilevel degenerative changes of the spine, pelvis and hips. Evidence of prior hardware removal about the lumbar spine. Calcified granulomata about the subcutaneous gluteal distributions. Chronic sacroiliitis changes with unchanged sclerosis of the SI joints. Levoscoliosis of the thoracolumbar spine. IMPRESSION: 1. No bowel obstruction, pneumatosis or pneumoperitoneum. 2. Mild circumferential wall thickening about the ascending colon. Although this may be secondary to partial distention, a nonspecific colitis is a differential consideration. Consider correlation with colonoscopy if clinically warranted. 3. Nonobstructing left nephrolithiasis. 4. Fibroid uterus. 5. Moderate sized hiatal hernia. 6. Additional findings as above. Electronically signed by: Ariel López M.D. 05/12/2019 12:04 PM Dictated: 05/12/19 1154 Transcribed: 05/12/19 1154 ECG Data Attestation: I personally reviewed and interpreted this ECG as follows: Indication: vomiting Rate (beats per minute): 75 Rhythm: sinus rhythm Findings: + other (normal axis), + PVC (occasional), + T-wave inversion (lead 3, anteriorly) and + left axis deviation Comparison ECG Date: from (04/20/2019) Change: no significant change (April 2019) Blood Pressure Blood Pressure Findings: Elevated blood pressure Blood Pressure Disposition: further management by hospitalist MDM Narrative The patient is a 69 white female w/ PMHx CAD, hypertension, myocardial infarction, heart artery stent, pulmonary embolism, DVT, anxiety, depression, PTSD, adenoidectomy, tonsillectomy, anemia, hypothyroidism, colitis, appendectomy, fusion of spine, DDD, cyclical vomiting, ovarian cystectomy, and appendectomy who presents to the ED w/ CC of constant vomiting beginning last night. Patient was seen and evaluated the bedside. The patient does have some issues with internal last seen April 22 for similar. The patient does have a known history of CAD and hypertension. The patient's blood work does show mild white count of 15 but normal H&H and platelet count. The patient does have some mild hypokalemia which was ordered for replacement IV. The patient's LFTs and lipase are unremarkable. Troponin was not detectable and the patient's EKG was nonischemic. Patient was trialed multiple rounds of antiemetics and pain medications but was unable to still tolerate by mouth and was still vomiting. Patient CT shows a nonspecific colitis without any other acute findings. Patient is a fibroid uterus but does not complain of any menstrual bleeding. Patient also does have a hiatal hernia which may be contributory. I did discuss this with the hospitalist. The patient was subsequently admitted to the medicine service. Impression & Plan Intractable nausea and vomiting, Dehydration Discharge Plan Visit Data Chief Complaint: Vomiting Stated Complaint: nausea ED Provider: Oskar Corado Discharge Problem: Intractable nausea and vomiting, Dehydration Patient Disposition: Being Evaluated by Hospitalist Discharge Instructions Interventions: ED Discharge Assessment Last Done: 05/12/19 17:08 Discharge Problem: Intractable nausea and vomiting Qualifiers: Vomiting type: cyclical vomiting Qualified Code(s): G43.A1 - Cyclical vomiting, intractable The scribe's documentation has been prepared under my direction and personally reviewed by me in its entirety. I confirm that the note above accurately reflects all work, treatment, procedures, and medical decision making performed by me.
[2019-05-12] MEDS ORDERED: ACETAMINOPHEN 325 MG TAB PO PRN (17:24)
[2019-05-12] MEDS ORDERED: METOPROLOL TARTRATE 1 MG/ML VIAL IV STA (18:13)
[2019-05-12] MEDS: PROMETHAZINE HCL 25 MG in SODIUM CHLORIDE 0.9% 50 ML IV PRN (18:27)
[2019-05-12] MEDS: fentaNYL 12 MCG/HR TDSY TD SCH (18:32)
[2019-05-12] MEDS: fentaNYL 25 MCG/HR TDSY TD SCH (18:34)
[2019-05-12] MEDS: POTASSIUM CHLORIDE / WTR 10 MEQ/100 ML PLCT IV SCH ×2 (18:45→19:53)
[2019-05-12] MEDS: SODIUM CHLORIDE 0.9% 1000ML 1,000 ML IV SCH (18:49)
[2019-05-12] MEDS: METOPROLOL TARTRATE 1 MG/ML VIAL IV SCH (19:32)
[2019-05-12] MEDS: LORazepam 0.5 MG/1 ML VIAL IV PRN (19:45)
[2019-05-12] MEDS: IPRATROPIUM BROMIDE/ALBUTEROL respimat INH INH SCH (19:52)
[2019-05-12] MEDS: AMITRIPTYLINE HCL 25 MG TAB PO SCH (21:42)
[2019-05-12] MEDS: TRAZODONE HCL 100 MG TAB PO SCH (21:42)
[2019-05-12] MEDS: PRAMIPEXOLE DIHYDROCHLO 0.25 MG TAB PO SCH (21:43)
[2019-05-12] MEDS: LURASIDONE HCL 40 MG TAB PO SCH (21:43)
[2019-05-12] MEDS: FAMOTIDINE 20 MG in SYRINGE 3 ML IV SCH (22:11)
[2019-05-13] MEDS: PROMETHAZINE HCL 25 MG in SODIUM CHLORIDE 0.9% 50 ML IV PRN ×2 (00:38→19:04)
[2019-05-13] MEDS: METOPROLOL TARTRATE 1 MG/ML VIAL IV SCH ×6 (00:38→19:26)
[2019-05-13] MEDS: CHECK FENTANYL PATCH PLACEMENT SCH ×3 (00:39→15:52)
[2019-05-13] MEDS: ACETAMINOPHEN 65 ML IV PRN ×3 (02:44→21:59)
[2019-05-13] MEDS: LORazepam 0.5 MG/1 ML VIAL IV PRN ×2 (02:44→16:54)
[2019-05-13] MEDS: SODIUM CHLORIDE 0.9% 1000ML 1,000 ML IV SCH ×2 (05:00→17:02)
[2019-05-13] MEDS: ONDANSETRON INJ 2 MG/ML 2 ML VIAL IV PRN (05:01)
[2019-05-13] MEDS: LEVOTHYROXINE SODIUM 75 MCG TABLET PO SCH (05:06)
[2019-05-13 06:36] LABS: Hematocrit (blood only) 36.9 % (37-47); Hemoglobin 12.8 g/dL (12.0-16.0); Mean Corpuscular Hgb Conc 34.7 g/dL (32-36); Mean Corpuscular Volume 86.2 fL (80-100); Mean Platelet Volume 9.1 fL (7.4-10.4); Platelet Count 251 K/uL (130-400); RDW Coefficient of Variation 14.4 % (11.5-14.5); RDW Standard Deviation 44.5 fL (36.4-46.3); Red Blood Count 4.28 M/uL (4.2-5.4); White Blood Count 13.67 K/uL (4.8-10.8)
[2019-05-13 07:29] LABS: BUN Creatinine Ratio 16.6 (10-20); Calcium 8.4 mg/dl (8.5-10.1); Creatinine Clr Calc Pharmacy 87.9 ml/min; Est GFR (African American) 105.1; Est GFR (Non-African American) 90.7; Magnesium 1.8 mg/dl (1.8-2.4); Potassium 3.3 mmol/L (3.5-5.1)
--- NOTE | 2019-05-13 07:35 | Hospitalist Progress Note ---
Date of Service May 13, 2019 Assessment & Plan (1) Intractable nausea and vomiting: This is a 68 yr old F with significant PMH of CAD, HTN, HLD, Hypothyroidism, Chronic pain syndrome, multiple thoracic/lumbar spinal surgeries, post polio syndrome, hx of PTSD who presents to [facility] secondary to intractable n/v x 1 day. Patient is a known case of cyclical nausea and vomiting with multiple admissions in past and evaluation. Colonoscopy 07/2018- No recall was recommended. No associated diarrhea Prior hx of similar symptoms with admissions. Has a port in situ -Using IV Phenergan every 6 hours, Zofran, IV Ativan [id number]. Avoid narcotics. -IV fluids -Clear liquids---> Advance as tolerated -On fentanyl patch as at home. -GI was consulted during last admission- No further recommendations except PPI once a day on discharge. (2) Hypokalemia: Refusing PO pills. -IV KCL ordered -Monitor (3) CAD (coronary artery disease): H/o stent in 2017 -EKG without ischemic change, troponin negative -Continue aspirin, statin, Lopressor (4) Hypertension: Uncontrolled as refusing PO medications -IV Lopressor 5 mg q 4 hours -Will add IV hydralazine 10 mg q 8 hours PRN for SBP > 180 -Refusing home amlodipine, Lopressor as it is PO -Holding HCTZ, lisinopril in setting of vomiting, dehydration (5) Restless leg syndrome: -Continue Mirapex (6) Hypothyroidism: -Continue levothyroxine (7) Mood disorder: -Recently stopped Abilify and started Latuda? Need to confirm -Trazodone HS DVT Ppx: SCDs in setting of blood-tinged emesis. May need to transition to SQ Lovenox if hgb remains stable Code status: FULL PCP: Maria Ines Dispo: Observation status Continues to be on IV meds and refusing PO due to persistent nausea Subjective Patient states that she is not feeling good and using IV Phenergan, IV Zofran, IV Ativan [id number]. Denies any pain. No vomiting but continues to have nausea. Does not want to eat anything due to nausea. Refused to take PO medications so BP up to 180s Physical Exam Physical Exam: GENERAL- AAOX3, Anxious NECK- Supple, no JVD LUNGS- Air entry bilaterally equal. No rales, rhonchi, crackles, wheezes heard. HEART- Regular rate and rhythm. No murmurs ABDOMEN- Soft, generalized tenderness even on superficial palpation, nondistended, bowel sounds present EXTREMITIES- Good peripheral pulses, no edema Results & Data Vital Signs (Past 12 Hours) Vital Signs Temp Pulse Pulse Resp BP BP Pulse Ox 05/13/19 07:22 36.8 C 76 20 121/78 87 L 05/13/19 05:01 80 158/83 H 05/13/19 04:08 37.1 C 84 18 175/81 H 93 05/13/19 03:17 87 05/13/19 00:38 95 H 182/91 H 05/13/19 00:31 94 H 182/91 H 05/12/19 22:42 36.9 C 92 H 20 161/84 H 96 05/12/19 19:37 37.7 C H 103 H 178/109 H 92 (1) Intractable nausea and vomiting Vomiting type: cyclical vomiting Qualified Code(s): G43.A1 - Cyclical vomiting, intractable
[2019-05-13] MEDS ORDERED: POTASSIUM CHLORIDE 20 MEQ TABCR PO STA (07:52)
[2019-05-13] MEDS: FAMOTIDINE 20 MG in SYRINGE 3 ML IV SCH ×2 (09:34→21:59)
[2019-05-13] MEDS: AMLODIPINE BESYLATE 5 MG TAB PO SCH (09:37)
[2019-05-13] MEDS: ASPIRIN 81 MG ECTAB PO SCH (09:37)
[2019-05-13] MEDS: ATORVASTATIN 40 MG TAB PO SCH (09:37)
[2019-05-13] MEDS: POTASSIUM CHLORIDE 20 MEQ TABCR PO SCH ×2 (09:37→20:20)
[2019-05-13] MEDS: IPRATROPIUM BROMIDE/ALBUTEROL respimat INH INH SCH ×4 (09:38→22:00)
[2019-05-13] MEDS ORDERED: POTASSIUM ACETATE 10 MEQ in 0.9 % SODIUM CHLORIDE 100 ML IV STA (13:28)
[2019-05-13] MEDS: HydrALAZINE HCL 20 MG/ML VIAL IV PRN ×2 (14:45→22:28)
[2019-05-13] MEDS: POTASSIUM CHLORIDE / WTR 10 MEQ/100 ML PLCT IV SCH ×2 (14:51→16:59)
[2019-05-13] MEDS: TRAZODONE HCL 100 MG TAB PO SCH (20:20)
[2019-05-13] MEDS: AMITRIPTYLINE HCL 25 MG TAB PO SCH (20:20)
[2019-05-13] MEDS: LURASIDONE HCL 40 MG TAB PO SCH (20:35)
[2019-05-13] MEDS: PRAMIPEXOLE DIHYDROCHLO 0.25 MG TAB PO SCH (20:35)
[2019-05-14] MEDS: CHECK FENTANYL PATCH PLACEMENT SCH ×4 (00:01→23:46)
[2019-05-14] MEDS: METOPROLOL TARTRATE 1 MG/ML VIAL IV SCH ×7 (00:01→23:46)
[2019-05-14] MEDS: PROMETHAZINE HCL 25 MG in SODIUM CHLORIDE 0.9% 50 ML IV PRN ×3 (03:14→22:14)
[2019-05-14] MEDS: LORazepam 0.5 MG/1 ML VIAL IV PRN ×3 (03:14→19:33)
[2019-05-14] MEDS: SODIUM CHLORIDE 0.9% 1000ML 1,000 ML IV SCH ×2 (05:29→15:33)
[2019-05-14] MEDS: ONDANSETRON INJ 2 MG/ML 2 ML VIAL IV PRN ×4 (05:31→23:46)
[2019-05-14] MEDS: LEVOTHYROXINE SODIUM 75 MCG TABLET PO SCH (06:23)
[2019-05-14 06:50] LABS: Hematocrit (blood only) 42.9 % (37-47); Hemoglobin 15.1 g/dL (12.0-16.0); Mean Corpuscular Hgb Conc 35.2 g/dL (32-36); Mean Platelet Volume 8.9 fL (7.4-10.4); Platelet Count 290 K/uL (130-400); RDW Coefficient of Variation 14.2 % (11.5-14.5); RDW Standard Deviation 45.2 fL (36.4-46.3); Red Blood Count 4.93 M/uL (4.2-5.4); White Blood Count 13.59 K/uL (4.8-10.8)
[2019-05-14 07:20] LABS: BUN Creatinine Ratio 14.5 (10-20); Calcium 8.7 mg/dl (8.5-10.1); Creatinine Clr Calc Pharmacy 80.5 ml/min; Est GFR (African American) 102.5; Est GFR (Non-African American) 88.4; Magnesium 1.8 mg/dl (1.8-2.4); Potassium 3.2 mmol/L (3.5-5.1)
[2019-05-14] MEDS: FAMOTIDINE 20 MG in SYRINGE 3 ML IV SCH ×2 (08:09→20:49)
[2019-05-14] MEDS: IPRATROPIUM BROMIDE/ALBUTEROL respimat INH INH SCH ×4 (08:10→22:14)
[2019-05-14] MEDS: ASPIRIN 81 MG ECTAB PO SCH (08:10)
[2019-05-14] MEDS: POTASSIUM CHLORIDE 20 MEQ TABCR PO SCH ×2 (08:10→23:46)
[2019-05-14] MEDS: ATORVASTATIN 40 MG TAB PO SCH (08:11)
[2019-05-14] MEDS: AMLODIPINE BESYLATE 5 MG TAB PO SCH ×2 (08:11→10:44)
[2019-05-14] MEDS: POTASSIUM CHLORIDE / WTR 10 MEQ/100 ML PLCT IV SCH ×4 (09:32→12:26)
--- NOTE | 2019-05-14 12:37 | Hospitalist Progress Note ---
Date of Service May 14, 2019 Assessment & Plan (1) Intractable nausea and vomiting: This is a 68 yr old F with significant PMH of CAD, HTN, HLD, Hypothyroidism, Chronic pain syndrome, multiple thoracic/lumbar spinal surgeries, post polio syndrome, hx of PTSD who presents to [facility] secondary to intractable n/v x 1 day. Patient is a known case of cyclical nausea and vomiting with multiple admissions in past and evaluation. Colonoscopy 07/2018- No recall was recommended. No associated diarrhea Prior hx of similar symptoms with admissions. Has a port in situ -Using IV Phenergan every 6 hours, Zofran, IV Ativan [id number]. Avoid narcotics. -IV fluids -Clear liquids---> Advance as tolerated -On fentanyl patch as at home. -GI was consulted during last admission- No further recommendations except PPI once a day on discharge. (2) Hypokalemia: Refusing PO pills. -IV KCL 4 bags ordered -Monitor (3) CAD (coronary artery disease): H/o stent in 2017 -EKG without ischemic change, troponin negative -Continue aspirin, statin, Lopressor (4) Hypertension: Uncontrolled as refusing PO medications -IV Lopressor 5 mg q 4 hours -Added IV hydralazine 10 mg q 8 hours PRN for SBP > 180 -Refusing home amlodipine, Lopressor as it is PO (Encouraged her to take it today) -Holding HCTZ, lisinopril in setting of vomiting, dehydration (5) Restless leg syndrome: -Continue Mirapex (6) Hypothyroidism: -Continue levothyroxine (7) Mood disorder: -Recently stopped Abilify and started Latuda? Need to confirm -Trazodone HS DVT Ppx: SCDs in setting of blood-tinged emesis. May need to transition to SQ Lovenox if hgb remains stable Code status: FULL PCP: Maria Ines Dispo: Observation status Continues to be on IV meds and refusing PO due to persistent nausea Encouraging her to advance diet and take PO medications Subjective Patient states that she is not feeling good and using IV Phenergan, IV Zofran, IV Ativan [id number]. Denies any pain. No vomiting but continues to have nausea. Does not want to eat anything due to nausea. Refused to take PO medications so BP up to 170s Physical Exam Physical Exam: GENERAL- AAOX3, Anxious NECK- Supple, no JVD LUNGS- Air entry bilaterally equal. No rales, rhonchi, crackles, wheezes heard. HEART- Regular rate and rhythm. No murmurs ABDOMEN- Soft, generalized tenderness even on superficial palpation, nondisten ded, bowel sounds present EXTREMITIES- Good peripheral pulses, no edema Results & Data Vital Signs (Past 12 Hours) Vital Signs Temp Pulse Pulse Resp BP BP Pulse Ox 05/14/19 12:28 83 178/102 H 05/14/19 08:09 87 178/98 H 05/14/19 07:26 79 05/14/19 07:15 36.9 C 84 16 190/106 H 95 05/14/19 04:27 88 172/100 H 05/14/19 04:23 37.0 C 88 18 172/100 H 95 (1) Intractable nausea and vomiting Vomiting type: cyclical vomiting Qualified Code(s): G43.A1 - Cyclical vomiting, intractable
[2019-05-14] MEDS ORDERED: POTASSIUM CHLORIDE 20 MEQ TABCR PO STA (15:45)
[2019-05-14] MEDS: ACETAMINOPHEN 65 ML IV PRN (16:18)
[2019-05-14] MEDS: TRAZODONE HCL 100 MG TAB PO SCH (20:51)
[2019-05-14] MEDS: LURASIDONE HCL 40 MG TAB PO SCH (20:52)
[2019-05-14] MEDS: PRAMIPEXOLE DIHYDROCHLO 0.25 MG TAB PO SCH (20:52)
[2019-05-14] MEDS: AMITRIPTYLINE HCL 25 MG TAB PO SCH (20:53)
[2019-05-15] MEDS: METOPROLOL TARTRATE 1 MG/ML VIAL IV SCH ×6 (04:19→23:46)
[2019-05-15] MEDS: LORazepam 0.5 MG/1 ML VIAL IV PRN (04:20)
[2019-05-15] MEDS: SODIUM CHLORIDE 0.9% 1000ML 1,000 ML IV SCH ×2 (04:20→15:06)
[2019-05-15] MEDS: PROMETHAZINE HCL 25 MG in SODIUM CHLORIDE 0.9% 50 ML IV PRN ×3 (05:58→19:47)
[2019-05-15] MEDS: LEVOTHYROXINE SODIUM 75 MCG TABLET PO SCH (05:59)
[2019-05-15 07:24] LABS: BUN Creatinine Ratio 17.3 (10-20); Calcium 8.2 mg/dl (8.5-10.1); Creatinine Clr Calc Pharmacy 83.7 ml/min; Est GFR (African American) 103.5; Est GFR (Non-African American) 89.3; Potassium 3.3 mmol/L (3.5-5.1)
[2019-05-15] MEDS: CHECK FENTANYL PATCH PLACEMENT SCH ×3 (07:49→23:46)
[2019-05-15] MEDS: ACETAMINOPHEN 65 ML IV PRN ×3 (07:49→21:00)
[2019-05-15] MEDS: FAMOTIDINE 20 MG in SYRINGE 3 ML IV SCH ×2 (08:35→20:49)
[2019-05-15] MEDS: POTASSIUM CHLORIDE 20 MEQ TABCR PO SCH ×4 (08:35→20:52)
[2019-05-15] MEDS: ATORVASTATIN 40 MG TAB PO SCH (08:35)
[2019-05-15] MEDS: AMLODIPINE BESYLATE 5 MG TAB PO SCH (08:35)
[2019-05-15] MEDS: IPRATROPIUM BROMIDE/ALBUTEROL respimat INH INH SCH ×4 (08:37→20:53)
[2019-05-15] MEDS: ASPIRIN 81 MG ECTAB PO SCH (08:37)
[2019-05-15] MEDS ORDERED: AMLODIPINE BESYLATE 5 MG TAB PO ONE (09:00)
[2019-05-15] MEDS: LISINOPRIL 5 MG TAB PO SCH (09:29)
[2019-05-15] MEDS: fentaNYL 12 MCG/HR TDSY TD SCH (16:56)
[2019-05-15] MEDS: fentaNYL 25 MCG/HR TDSY TD SCH (16:56)
[2019-05-15] MEDS: ONDANSETRON INJ 2 MG/ML 2 ML VIAL IV PRN ×2 (17:56→23:45)
[2019-05-15] MEDS: HEPARIN 100 UNIT/ML 5ML FLUSH FLUSH PRN ×2 (20:09→23:47)
[2019-05-15] MEDS: PRAMIPEXOLE DIHYDROCHLO 0.25 MG TAB PO SCH (20:51)
[2019-05-15] MEDS: AMITRIPTYLINE HCL 25 MG TAB PO SCH (20:52)
[2019-05-15] MEDS: TRAZODONE HCL 100 MG TAB PO SCH (20:53)
[2019-05-15] MEDS: LURASIDONE HCL 40 MG TAB PO SCH (20:57)
[2019-05-16] MEDS: PROMETHAZINE HCL 25 MG in SODIUM CHLORIDE 0.9% 50 ML IV PRN ×2 (03:55→12:42)
[2019-05-16] MEDS: METOPROLOL TARTRATE 1 MG/ML VIAL IV SCH ×3 (03:55→12:41)
[2019-05-16] MEDS: HEPARIN 100 UNIT/ML 5ML FLUSH FLUSH PRN ×3 (05:54→13:03)
[2019-05-16] MEDS: LEVOTHYROXINE SODIUM 75 MCG TABLET PO SCH (06:31)
[2019-05-16 06:53] LABS: Calcium 8.7 mg/dl (8.5-10.1); Creatinine Clr Calc Pharmacy 62.5 ml/min; Est GFR (African American) 77.7; Potassium 3.4 mmol/L (3.5-5.1)
[2019-05-16] MEDS ORDERED: POTASSIUM CHLORIDE 20 MEQ TABCR PO STA (08:28)
[2019-05-16] MEDS: ASPIRIN 81 MG ECTAB PO SCH (08:37)
[2019-05-16] MEDS: AMLODIPINE BESYLATE 5 MG TAB PO SCH (08:37)
[2019-05-16] MEDS: ATORVASTATIN 40 MG TAB PO SCH (08:37)
[2019-05-16] MEDS: LISINOPRIL 5 MG TAB PO SCH (08:37)
[2019-05-16] MEDS: IPRATROPIUM BROMIDE/ALBUTEROL respimat INH INH SCH ×2 (08:38→12:42)
[2019-05-16] MEDS: CHECK FENTANYL PATCH PLACEMENT SCH ×2 (08:38→16:01)
[2019-05-16] MEDS: POTASSIUM CHLORIDE 20 MEQ TABCR PO SCH ×2 (08:39→21:06)
[2019-05-16] MEDS: ONDANSETRON INJ 2 MG/ML 2 ML VIAL IV PRN (08:48)
[2019-05-16] MEDS: FAMOTIDINE 20 MG in SYRINGE 3 ML IV SCH (09:21)
--- NOTE | 2019-05-16 12:43 | Hospitalist Progress Note ---
Date of Service May 16, 2019 Assessment & Plan (1) Intractable nausea and vomiting: This is a 68 yr old F with significant PMH of CAD, HTN, HLD, Hypothyroidism, Chronic pain syndrome, multiple thoracic/lumbar spinal surgeries, post polio syndrome, hx of PTSD who presents to [facility] secondary to intractable n/v x 1 day. Patient is a known case of cyclical nausea and vomiting with multiple admissions in past and evaluation. Colonoscopy 07/2018- No recall was recommended. No associated diarrhea Prior hx of similar symptoms with admissions. Has a port in situ -Contributing factor: Psychological -Per RN, no episodes of vomiting seen since admission. Still continued to use [id number] IV Phenergan, Zofran, Ativan. Ativan was discontinued yesterday. Did not give any narcotics throughout admission. -Tolerating regular diet, though decreased intake. -On fentanyl patch as at home. -GI was consulted during last admission- No further recommendations except PPI once a day on discharge. (2) Hypokalemia: Replaced with Kcl 40 meq x 1 tab (3) CAD (coronary artery disease): H/o stent in 2017 -EKG without ischemic change, troponin negative -Continue aspirin, statin, Lopressor (4) Hypertension: Uncontrolled as was refusing PO medications -Finally taking PO home medications-amlodipine 10 mg, lisinopril 5 mg, metoprolol 25 mg twice daily (5) Restless leg syndrome: -Continue Mirapex (6) Hypothyroidism: -Continue levothyroxine (7) Mood disorder: Depressed mood is contributing to her current symptoms -Recently stopped Abilify and started Latuda? -Trazodone HS -Denies any suicidal ideations or attempts. -Offered to be seen by psychiatrist, refused. -Do strongly recommend outpatient psychiatric follow ups DVT Ppx: SCDs in setting of blood-tinged emesis. May need to transition to SQ Lovenox if hgb remains stable Code status: FULL PCP: Maria Ines Dispo: Observation status Ok to discharge today evening. Subjective Patient is feeling a little better today. Did ambulate yesterday. Continues to be emotional and mood depressed. Denies any suicidal ideations. Asked if she would want to see a psychiatrist, refused. Denies any abdominal pain, vomiting. No episodes of vomiting since admitted to the hospital as reported by RN. Nausea has improved Tolerating p.o. diet though decreased appetite and intake Physical Exam Physical Exam: GENERAL- AAOX3, Emotional NECK- Supple, no JVD LUNGS- Air entry bilaterally equal. No rales, rhonchi, crackles, wheezes heard. HEART- Regular rate and rhythm. No murmurs ABDOMEN- Soft, non tender, nondistended, bowel sounds present EXTREMITIES- Good peripheral pulses, no edema MOOD- Depressed Results & Data Vital Signs (Past 12 Hours) Vital Signs Temp Pulse Pulse Resp BP BP Pulse Ox 05/16/19 12:10 36.9 C 110 H 20 119/79 91 05/16/19 07:07 37.1 C 89 18 163/95 H 93 05/16/19 03:55 94 H 154/97 H 05/16/19 03:10 37 C 94 H 18 154/97 H 93 (1) Intractable nausea and vomiting Vomiting type: cyclical vomiting Qualified Code(s): G43.A1 - Cyclical vomiting, intractable
[2019-05-16] MEDS ORDERED: ACETAMINOPHEN 325 MG TAB PO PRN (12:44)
[2019-05-16] MEDS ORDERED: IPRATROPIUM BROMIDE/ALBUTEROL respimat INH INH PRN (12:44)
[2019-05-16] MEDS ORDERED: FAMOTIDINE 20 MG TAB PO SCH (21:00)
[2019-05-16] MEDS: AMITRIPTYLINE HCL 25 MG TAB PO SCH (21:05)
[2019-05-16] MEDS: TRAZODONE HCL 100 MG TAB PO SCH (21:05)
[2019-05-16] MEDS: PRAMIPEXOLE DIHYDROCHLO 0.25 MG TAB PO SCH (21:06)
[2019-05-16] MEDS: LURASIDONE HCL 40 MG TAB PO SCH (21:06)
[2019-05-16] MEDS: METOPROLOL TARTRATE 25 MG TAB PO SCH (21:06)
[2019-05-16] MEDS: PANTOprazole 40 MG TAB PO SCH (21:57)
[2019-05-17] MEDS: CHECK FENTANYL PATCH PLACEMENT SCH ×4 (00:27→23:41)
[2019-05-17] MEDS: TRAMADOL HCL 50 MG TABLET PO PRN (00:57)
[2019-05-17] MEDS: LEVOTHYROXINE SODIUM 75 MCG TABLET PO SCH (06:00)
[2019-05-17 06:03] LABS: Hematocrit (blood only) 36.5 % (37-47); Hemoglobin 12.7 g/dL (12.0-16.0); Mean Corpuscular Hgb Conc 34.8 g/dL (32-36); Mean Corpuscular Volume 86.7 fL (80-100); Platelet Count 246 K/uL (130-400); RDW Coefficient of Variation 14.7 % (11.5-14.5); RDW Standard Deviation 46.1 fL (36.4-46.3); Red Blood Count 4.21 M/uL (4.2-5.4); White Blood Count 20.82 K/uL (4.8-10.8)
[2019-05-17 06:41] LABS: BUN Creatinine Ratio 11.8 (10-20); Calcium 8.4 mg/dl (8.5-10.1); Creatinine Clr Calc Pharmacy 26.7 ml/min; Est GFR (African American) 28.1; Est GFR (Non-African American) 24.2; Potassium 3.6 mmol/L (3.5-5.1)
[2019-05-17] MEDS: LISINOPRIL 5 MG TAB PO SCH (07:31)
[2019-05-17] MEDS: METOPROLOL TARTRATE 25 MG TAB PO SCH ×2 (07:32→20:53)
[2019-05-17] MEDS: AMLODIPINE BESYLATE 5 MG TAB PO SCH (07:32)
[2019-05-17] MEDS: PANTOprazole 40 MG TAB PO SCH ×2 (07:32→20:42)
[2019-05-17] MEDS: ATORVASTATIN 40 MG TAB PO SCH (07:33)
[2019-05-17] MEDS: POTASSIUM CHLORIDE 20 MEQ TABCR PO SCH ×2 (07:33→20:42)
[2019-05-17] MEDS: ASPIRIN 81 MG ECTAB PO SCH (07:33)
--- NOTE | 2019-05-17 11:38 | Hospitalist Progress Note ---
Date of Service May 17, 2019 Assessment & Plan (1) Blood in the stool: Likely Lower GI bleeding Patient was about to be discharged yesterday evening after improving after cyclical nausea/vomiting episode. However, in the evening she had a large bowel movement with fresh red blood noted by RN to palpation. Prior history of similar episode a few weeks ago. FOBT +ve EGD few years ago, colonoscopy last year with inadequate prep per patient -WBC went up to 20.82, HB 12.7 (Range - 12-13) -Hold Aspirin -Protonix 40 mg PO BID started -Monitor H & H -GI consulted--> discussed case with BOB (2) Intractable nausea and vomiting: Patient is a known case of cyclical nausea and vomiting with multiple admissions in past and evaluation. Colonoscopy 07/2018- No recall was recommended. No associated diarrhea Prior hx of similar symptoms with admissions. Has a port in situ -Contributing factor: Depression, anxiety -Per RN, no episodes of vomiting seen since admission. Still continued to use [id number] IV Phenergan, Zofran, Ativan. So IVs were discontinued. -Tolerated diet but decreased appetite -On fentanyl patch as at home. Avoid narcotics (3) JERE (acute kidney injury): -Creatinine bumped up to 2.02 from 0.87 today -BP dropped down from 150s to 90s -IV Fluids at 100 cc/hour -Monitor trend (4) Hypokalemia: Resolved (5) CAD (coronary artery disease): H/o stent in 2017 -EKG without ischemic change, troponin negative -On aspirin, statin, Lopressor --> Hold aspirin (6) Hypertension: Uncontrolled as was refusing PO medications. Now BP dropping -On home dose - amlodipine 10 mg, lisinopril 5 mg, metoprolol 25 mg twice daily with holding parameters (7) Restless leg syndrome: -Continue Mirapex (8) Hypothyroidism: -Continue levothyroxine (9) Mood disorder: Depressed mood is contributing to her current symptoms -Recently stopped Abilify and started Latuda? -Trazodone HS -Denies any suicidal ideations or attempts. -Offered to be seen by psychiatrist, refused. -Do strongly recommend outpatient psychiatric follow ups DVT Ppx: SCDs in setting of blood-tinged emesis. May need to transition to SQ Lovenox if hgb remains stable Code status: FULL PCP: Maria Ines Dispo: Observation status Ok to discharge today evening. Subjective Patient was feeling better yesterday. Was planning to discharge her yesterday evening when she had a large bowel movement with fresh red blood as per RN, patient. No more episodes since then. Does mention that she had similar episode few weeks ago. Abdominal pain has almost resolved. No nausea, vomiting anymore. Was tolerating p.o. but continued to have poor appetite Physical Exam Physical Exam: GENERAL- AAOX3, Emotional, Not in acute distressed NECK- Supple, no JVD LUNGS- Air entry bilaterally equal. No rales, rhonchi, crackles, wheezes heard. HEART- Regular rate and rhythm. No murmurs ABDOMEN- Soft, non tender, nondistended, bowel sounds present EXTREMITIES- Good peripheral pulses, no edema MOOD- Depressed Results & Data Vital Signs (Past 12 Hours) Vital Signs Temp Pulse Resp BP BP Pulse Ox 05/17/19 07:00 36.7 C 70 20 94/61 L 93 05/17/19 03:15 36.5 C 75 18 92/61 L 91 05/17/19 00:06 36.9 C 77 18 93/63 L 91 (1) Intractable nausea and vomiting Vomiting type: cyclical vomiting Qualified Code(s): G43.A1 - Cyclical vomiting, intractable
[2019-05-17] MEDS: SODIUM CHLORIDE 0.9% 1000ML 1,000 ML IV SCH ×2 (12:12→21:15)
--- NOTE | 2019-05-17 14:26 | Gastrointestinal Consultation ---
Date of Consultation May 17, 2019 Assessment & Plan (1) Rectal bleeding: Patient with a hx of CVS, now reporting BRBPR as well as mild lower abdominal pain. Recent CTAP showing mild circumferential wall thickening of the ascending colon. Prior hx of ischemic colitis. Last colonoscopy in July of 2018 with a poor prep. Would recommend outpatient colonoscopy with a 2 day prep for further evaluation. Supervising Physician Co-Signing Physician Notes Late entry: Patient was seen and examined on 05/17 with Anh Cheng PA-C whose note reflects our findings and plan. History of Present Illness Reason for Consultation: GI bleed Requesting Physician: Ruma Ramsey Attending Physician: Leydi Connor DO History of Present Illness 69yo F with a PMH of CAD (s/p stent), HTN, hypothyroidism, chronic pain syndrome and cyclic vomiting syndrome, who was admitted with intractable n/v. She was improving and was to be discharged to home, however she started to have rectal bleeding last evening. We have been asked to see her. She has a hx of ischemic colitis in 2014. Last colonoscopy was just this past July, but with a poor preparation. This showed diverticulosis but no additional findings. Repeat was not requested as her last one was only a few years prior. She tells me that for the past week, she has been having BMs about 4-5 times daily. Since yesterday, she has had BRB with BMs. Stool was tested today and negative for Cdiff. Blood work shows an elevated WBC of 20.82, Hgb of 12.7, BUN of 24 and creat of 2.02. She reports lower abdominal pain, initially she points to the LLQ, but then c hanges to indicate the RLQ. She reports this as an alternating achy and sharp pain. She continues with nausea but denies any heartburn/reflux. Last EGD was in 2015, showing only a medium hiatal hernia. She is not on a PPI at home. Recent CTAP 05/12/19 showed mild circumferential wall thickening of the ascending colon. Allergies Allergy/AdvReac Type Severity Reaction Status Date / Time latex Allergy Intermediate RASH Verified 05/12/19 11:23 nickel Allergy Intermediate SEVERE Verified 05/12/19 11:23 DERMATITIS NSAIDS (Non-Steroidal Allergy Intermediate HX OF Verified 05/12/19 11:23 Anti-Inflamma BLEEDING ULCERS aspirin AdvReac Intermediate bleeding Verified 05/12/19 11:23 ulcers Home Medications Home Medications Medication Instructions Recorded Confirmed Type amlodipine [Norvasc] 5 mg PO QAM 12/13/18 05/12/19 History atorvastatin [Lipitor] 40 mg PO QAM 12/13/18 05/12/19 History buspirone 10 mg PO TID 12/13/18 05/12/19 History hydroxyzine HCl 50 mg PO HS 12/13/18 05/12/19 History levothyroxine 75 mcg PO QAM 12/13/18 05/12/19 History metoprolol tartrate 25 mg PO BID 12/13/18 05/12/19 History tizanidine [Zanaflex] 4 mg PO BID PRN 12/13/18 05/12/19 History fentanyl 1 patch TRANSDERMAL Q72H 01/25/19 05/12/19 History pramipexole [Mirapex] 0.125 mg PO HS 01/25/19 05/12/19 History tramadol [Ultram] 50 mg PO Q8 PRN 01/25/19 05/12/19 History potassium chloride [Klor-Con M20] 20 meq PO BID 03/30/19 05/12/19 History Combivent Respimat 1 puff INHALATION QID 05/12/19 05/12/19 History Latuda 20 mg PO HS 05/12/19 05/12/19 History amitriptyline 25 mg PO HS 05/12/19 05/12/19 History ondansetron HCl [Zofran] 8 mg PO Q6H PRN 05/12/19 05/12/19 History polyethylene glycol 3350 17 g PO DAILY PRN 05/12/19 05/12/19 History prochlorperazine maleate 10 mg PO BID PRN 05/12/19 05/12/19 History promethazine 25 mg PO Q6H PRN 05/12/19 05/12/19 History promethazine [Phenergan] 25 mg MO Q6H PRN 05/12/19 05/12/19 History trazodone 200 mg PO HS 05/12/19 05/12/19 History pantoprazole 40 mg PO BID 30 Days #60 tab 05/18/19 Rx Patient History Medical History CAD (coronary artery disease) (Chronic) Hypertension (Chronic) Myocardial Infarction (Chronic) 2 YEARS AGO Pulmonary embolism (Chronic) 2 YEARS OLD (UNSURE OF REASON) Deep vein thrombosis (Chronic) 4 YEARS AGO Migraine (Chronic) Restless leg syndrome (Chronic) Anxiety (Chronic) Depression (Chronic) Post traumatic stress disorder (Chronic) Anemia (Chronic) HX OF Hypothyroidism (Chronic) Colitis (Chronic) Osteoarthritis (Chronic) Degenerative disc disease (Chronic) Hyperlipidemia Surgical History History of heart artery stent (Chronic) 2017- STENT PLACED AT [facility] (DR. DAVILA) History of adenoidectomy (Chronic) History of tonsillectomy (Chronic) History of appendectomy (Chronic) History of colonoscopy (Chronic) History of esophagogastroduodenoscopy (EGD) (Chronic) Fusion of spine (Chronic) LUMBAR History of laminectomy (Chronic) LUMBAR Ovarian cyst (Chronic) X 2 History of anesthesia reaction (Chronic) WOKE UP IN MIDDLE OF SPINAL SURGERIES History of cataract surgery (Chronic) LEFT Family History Other Hypertension Social History Preferred Language: [place] Communication Ability: Effective [employer] Paper Interleafer Required: No Beliefs That Will Affect Care: None marital status: Current Living Situation: Alone current occupational status: retired Other Information That Helps Us Care for You: No Feels Safe at Home: Yes Safety Concerns: Feels Safe At This Time Smoking Status: Never smoker Second Hand Exposure: No Hx Alcohol Use: No Hx Substance Use: No Review of Systems Constitutional: no fever, no chills, no fatigue and no weight loss Eyes: no eye pain and no worsening vision Ear, Nose, Mouth, Throat: no ear pain, no hearing loss, no nasal congestion and no sore throat Respiratory: no cough, no chest congestion and no wheezing Cardiovascular: no chest pain and no dyspnea Gastrointestinal: as per Subjective / HPI Genitourinary: no dysuria and no urinary incontinence Musculoskeletal: no joint pain Integumentary: no rash and no pruritus Neurologic: no tingling, no numbness and no dizziness Psychiatric: no suicidal ideation and no confusion Endocrine: no cold intolerance and no heat intolerance Hematologic / Lymphatic: no easy bleeding and no easy bruising Allergy / Immunological: no problem reported Physical Exam Constitutional: no acute distress Eyes: + anicteric sclerae ENMT: external ear and nose normal, oropharynx normal Neck: normal visual inspection Respiratory: normal respiratory effort, lungs clear to auscultation Cardiovascular: Rate/Rhythm: regular rate and regular rhythm Heart Sounds: no murmur Gastrointestinal (Abdomen): Inspection/Auscultation: normal bowel sounds Percussion/Palpation: + abdomen tender (mild diffuse tenderness to palpation) and abdomen soft Musculoskeletal: Head/Neck/Chest: normocephalic and head atraumatic Skin: no rashes, warm and dry Neurologic: moves all extremities; no focal motor deficits Psychiatric: Orientation: alert and oriented x 3 Results & Data Vital Signs (Past 12 Hours) Vital Signs Temp Pulse Resp BP Pulse Ox 05/17/19 11:00 36.7 C 68 20 89/58 L 91 05/17/19 07:00 36.7 C 70 20 94/61 L 93 05/17/19 03:15 36.5 C 75 18 92/61 L 91 Laboratory Results - last 24 hr 05/17/19 05/17/19 05/17/19 05:47 05:47 10:15 WBC 20.82 H RBC 4.21 Hgb 12.7 Hct 36.5 L MCV 86.7 MCH 30.2 MCHC 34.8 RDW Std Deviation 46.1 RDW Coeff of Arden 14.7 H Plt Count 246 MPV 9.0 Sodium 135 L Potassium 3.6 Chloride 102 Carbon Dioxide 24 Anion Gap 9.0 BUN 24 H D Creatinine 2.02 H D Est Cr Clr Drug Dosing 26.7 Est GFR ( Amer) 28.1 Est GFR (Non-Af Amer) 24.2 BUN/Creatinine Ratio 11.8 Glucose 92 Calcium 8.4 L Stool Occult Bld Scrn Stl C. diff Tox B Gene Negative Cdiff Gene 05/17/19 10:15 WBC RBC Hgb Hct MCV MCH MCHC RDW Std Deviation RDW Coeff of Arden Plt Count MPV Sodium Potassium Chloride Carbon Dioxide Anion Gap BUN Creatinine Est Cr Clr Drug Dosing Est GFR ( Amer) Est GFR (Non-Af Amer) BUN/Creatinine Ratio Glucose Calcium Stool Occult Bld Scrn Positive A Stl C. diff Tox B Gene CTAP 05/12/19: IMPRESSION: 1. No bowel obstruction, pneumatosis or pneumoperitoneum. 2. Mild circumferential wall thickening about the ascending colon. Although this may be secondary to partial distention, a nonspecific colitis is a differential consideration. Consider correlation with colonoscopy if clinically warranted. 3. Nonobstructing left nephrolithiasis. 4. Fibroid uterus. 5. Moderate sized hiatal hernia. 6. Additional findings as above.
[2019-05-17] MEDS ORDERED: ONDANSETRON INJ 2 MG/ML 2 ML VIAL IV PRN (17:27)
[2019-05-17] MEDS: TRAZODONE HCL 100 MG TAB PO SCH (20:40)
[2019-05-17] MEDS: PRAMIPEXOLE DIHYDROCHLO 0.25 MG TAB PO SCH (20:41)
[2019-05-17] MEDS: LURASIDONE HCL 40 MG TAB PO SCH (20:42)
[2019-05-17] MEDS: AMITRIPTYLINE HCL 25 MG TAB PO SCH (21:15)
[2019-05-18] MEDS: TRAMADOL HCL 50 MG TABLET PO PRN (02:47)
[2019-05-18] MEDS: LEVOTHYROXINE SODIUM 75 MCG TABLET PO SCH (05:38)
[2019-05-18 06:18] LABS: Basophils # (auto) 0.04 K/uL (0-0.2); Basophils % (auto) 0.3 %; Eosinophils # (auto) 0.28 K/uL (0-0.5); Eosinophils % (auto) 1.8 %; Hemoglobin 10.9 g/dL (12.0-16.0); Immature Granulocytes # (auto) 0.04 K/uL (0.00-0.02); Immature Granulocytes % (auto) 0.3 %; Lymphocytes # (auto) 3.27 K/uL (1.2-3.4); Lymphocytes % (auto) 20.6 %; Mean Corpuscular Hgb Conc 34.1 g/dL (32-36); Mean Corpuscular Volume 88.6 fL (80-100); Mean Platelet Volume 9.1 fL (7.4-10.4); Monocytes # (auto) 1.66 K/uL (0.11-0.59); Monocytes % (auto) 10.5 %; Neutrophils # (auto) 10.57 K/uL (1.4-6.5); Neutrophils % (auto) 66.5 %; Platelet Count 219 K/uL (130-400); RDW Standard Deviation 48.6 fL (36.4-46.3); Red Blood Count 3.61 M/uL (4.2-5.4); White Blood Count 15.86 K/uL (4.8-10.8)
[2019-05-18 07:02] LABS: Albumin Globulin Ratio 0.9 (0.9-2); Albumin Level 2.5 gm/dl (3.4-5.0); BUN Creatinine Ratio 16.6 (10-20); Bilirubin,Total 0.3 mg/dl (0.2-1); Calcium 7.5 mg/dl (8.5-10.1); Creatinine Clr Calc Pharmacy 56.7 ml/min; Est GFR (African American) 69.8; Est GFR (Non-African American) 60.3; Globulin 2.8 gm/dl (2.5-4.0); Magnesium 1.7 mg/dl (1.8-2.4); Potassium 3.6 mmol/L (3.5-5.1); Total Protein 5.3 gm/dl (6.4-8.2)
[2019-05-18] MEDS: METOPROLOL TARTRATE 25 MG TAB PO SCH (07:40)
[2019-05-18] MEDS: ATORVASTATIN 40 MG TAB PO SCH (07:40)
[2019-05-18] MEDS: SODIUM CHLORIDE 0.9% 1000ML 1,000 ML IV SCH ×2 (07:40→16:42)
[2019-05-18] MEDS: PANTOprazole 40 MG TAB PO SCH (07:40)
[2019-05-18] MEDS: CHECK FENTANYL PATCH PLACEMENT SCH ×2 (07:41→16:37)
[2019-05-18] MEDS: POTASSIUM CHLORIDE 20 MEQ TABCR PO SCH (07:41)
--- NOTE | 2019-05-18 13:02 | Hospitalist Progress Note ---
Date of Service May 18, 2019 Assessment & Plan (1) Blood in the stool: Likely Lower GI bleeding Patient was about to be discharged 05/16 evening after improving after cyclical nausea/vomiting episode. However, in the evening she had a large bowel movement with fresh red blood noted by RN.. Prior history of similar episode a few weeks ago. FOBT +ve EGD few years ago, colonoscopy last year with inadequate prep per patient -WBC went up to 20.82, HB 12.7 (Range - 12-13) --> WBC trending down to 15k, HB - 10.9 -Hold Aspirin -Protonix 40 mg PO BID started empirically -GI consulted --> discussed case with BOB--> Plan is for outpatient EGD/Colonoscopy on 05/31/2019 -Stool studies including c diff ordered and pending collection (Ordered as complained of diarrhea but per RN, no stools noted) (2) Intractable nausea and vomiting: Patient is a known case of cyclical nausea and vomiting with multiple admissions in past and evaluation. Colonoscopy 07/2018- No recall was recommended. No associated diarrhea Prior hx of similar symptoms with admissions. Has a port in situ -Contributing factor: Depression, anxiety -Per RN, no episodes of vomiting seen since admission. Still continued to use [id number] IV Phenergan, Zofran, Ativan. So IVs were discontinued. -Tolerated diet better now -On fentanyl patch as at home. Avoid narcotics (3) JERE (acute kidney injury): -Creatinine bumped up to 2.02 from 0.87 and came down in 24 hours after IVF to baseline -Monitor outpatient (4) Hypokalemia: Resolved (5) CAD (coronary artery disease): H/o stent in 2017 -EKG without ischemic change, troponin negative -On aspirin, statin, Lopressor --> Hold aspirin (6) Hypertension: Uncontrolled as was refusing PO medications. Later BP dropped, now better with IVF -On home dose - amlodipine 10 mg, lisinopril 5 mg, metoprolol 25 mg twice daily with holding parameters (7) Restless leg syndrome: -Continue Mirapex (8) Hypothyroidism: -Continue levothyroxine (9) Mood disorder: Depressed mood is contributing to her current symptoms -Recently stopped Abilify and started Latuda? -Trazodone HS -Denies any suicidal ideations or attempts. -Offered to be seen by psychiatrist, refused. -Do strongly recommend outpatient psychiatric follow ups DVT Ppx: SCDs in setting of blood-tinged emesis. May need to transition to SQ Lovenox if hgb remains stable Code status: FULL PCP: Maria Ines Dispo: Observation status changed to inpatient status on 05/17/19 as BRBPR episode. Ok to discharge today evening with EGD/Colonoscopy scheduled for 05/31/2019 at [facility] GI cleared for discharge Subjective Patient is doing much better. She has not had any bloody bowel movement since 48 hours. Nausea vomiting has resolved. Tolerating p.o. diet well. No fever, chills. No abdominal pain Physical Exam Physical Exam: GENERAL- AAOX3, Emotional, Not in acute distressed NECK- Supple, no JVD LUNGS- Air entry bilaterally equal. No rales, rhonchi, crackles, wheezes heard. HEART- Regular rate and rhythm. No murmurs ABDOMEN- Soft, non tender, nondistended, bowel sounds present EXTREMITIES- Good peripheral pulses, no edema MOOD- Depressed Results & Data Vital Signs (Past 12 Hours) Vital Signs Temp Pulse Resp BP BP Pulse Ox 05/18/19 11:13 36.9 C 69 20 120/80 91 05/18/19 07:06 36.8 C 71 20 103/67 90 05/18/19 05:09 37.3 C 73 20 99/64 L 92 (1) Intractable nausea and vomiting Vomiting type: cyclical vomiting Qualified Code(s): G43.A1 - Cyclical vomiting, intractable
--- NOTE | 2019-05-18 13:25 | Gastroenterology Progress Note ---
Date of Service May 18, 2019 Assessment & Plan (1) Rectal bleeding: Patient with a hx of CVS, now with BRBPR as well as mild lower abdominal pain. Recent CTAP showing mild circumferential wall thickening of the ascending colon. Prior hx of ischemic colitis. Last colonoscopy in July of 2018 with a poor prep. Arranged for OP appointment for EGD and colonoscopy with a 2 day prep on 05/31/19 for further evaluation. Patient will be called with procedure time. Supervising Physician Co-Signing Physician Notes I have seen and examined the patient with Francisca Adkins whose note reflects our findings and plan. Subjective Patient continues with lower abdominal discomfort and reports multiple bloody BMs. WBC improving, Hgb 10.9, renal function normalized. Tolerating diet. No further emesis. Review of Systems Constitutional: no fever, no chills, no fatigue and no weight loss Eyes: no eye pain and no worsening vision Ear, Nose, Mouth, Throat: no ear pain, no hearing loss, no nasal congestion and no sore throat Respiratory: no cough, no chest congestion and no wheezing Cardiovascular: no chest pain and no dyspnea Gastrointestinal: as per Subjective / HPI Genitourinary: no dysuria and no urinary incontinence Musculoskeletal: no joint pain Integumentary: no rash and no pruritus Neurologic: no tingling, no numbness and no dizziness Psychiatric: no suicidal ideation and no confusion Endocrine: no cold intolerance and no heat intolerance Hematologic / Lymphatic: no easy bleeding and no easy bruising Allergy / Immunological: no problem reported Physical Exam Constitutional: no acute distress Eyes: + anicteric sclerae ENMT: external ear and nose normal, oropharynx normal Neck: normal visual inspection Respiratory: normal respiratory effort, lungs clear to auscultation Cardiovascular: Rate/Rhythm: regular rate and regular rhythm Heart Sounds: no murmur Gastrointestinal (Abdomen): Inspection/Auscultation: normal bowel sounds Percussion/Palpation: + abdomen tender (RLQ) and abdomen soft Musculoskeletal: Head/Neck/Chest: normocephalic and head atraumatic Skin: no rashes, warm and dry Neurologic: moves all extremities; no focal motor deficits Psychiatric: Orientation: alert and oriented x 3 Results & Data Vital Signs (Past 12 Hours) Vital Signs Temp Pulse Resp BP BP Pulse Ox 05/18/19 11:13 36.9 C 69 20 120/80 91 05/18/19 07:06 36.8 C 71 20 103/67 90 05/18/19 05:09 37.3 C 73 20 99/64 L 92 Laboratory Results - last 24 hr 05/18/19 05/18/19 06:06 06:06 WBC 15.86 H RBC 3.61 L Hgb 10.9 L Hct 32.0 L MCV 88.6 MCH 30.2 MCHC 34.1 RDW Std Deviation 48.6 H RDW Coeff of Arden 15.0 H Plt Count 219 MPV 9.1 Immature Gran % (Auto) 0.3 Neut % (Auto) 66.5 Lymph % (Auto) 20.6 Lares % (Auto) 10.5 Eos % (Auto) 1.8 Baso % (Auto) 0.3 Immature Gran # (Auto) 0.04 H Neut # (Auto) 10.57 H Lymph # (Auto) 3.27 Lares # (Auto) 1.66 H Eos # (Auto) 0.28 Baso # (Auto) 0.04 Sodium 138 Potassium 3.6 Chloride 108 H Carbon Dioxide 25 Anion Gap 5.0 BUN 16 Creatinine 0.95 D Est Cr Clr Drug Dosing 56.7 Est GFR ( Amer) 69.8 Est GFR (Non-Af Amer) 60.3 BUN/Creatinine Ratio 16.6 Glucose 129 H Calcium 7.5 L Magnesium 1.7 L Total Bilirubin 0.3 AST 11 L ALT 16 Alkaline Phosphatase 91 Total Protein 5.3 L Albumin 2.5 L Globulin 2.8 Albumin/Globulin Ratio 0.9
--- NOTE | 2019-05-18 15:48 | Discharge Summary ---
Date of Service May 18, 2019 Admission HPI Per Admitting Provider This is a 69yo F with a PMH of cyclical vomiting syndrome, CAD (s/p stent), HTN, hypothyroidism, chronic pain syndrome and other medical problems listed below who presents with intractable vomiting starting last evening. Patient has history of cyclic vomiting syndrome, most recently admitted in January 2018 but seen in the ED earlier this month for similar symptoms. Endorses diffuse abdominal pain that is constant and aching, similar to previous episodes of intractable vomiting. Has had multiple episodes of bilious vomit with blood- tinged episodes today. Tried taking PO Phenergan at home last evening but could not tolerate. Removed her Fentanyl patch yesterday and did not place another due to feeling poorly. Has a port a cath in L chest wall due to recurrent cyclical vomiting syndrome. Had diarrhea 2 days ago that has since resolved. Denies fever, chills, lightheadedness, visual changes, chest pain, palpitations, SOB, dysuria, diarrhea or constipation. Principal Diagnosis 1. Cyclical nausea/vomiting syndrome 2. Bright red blood per rectum 3. Acute kidney injury Secondary diagnoses on discharge 1. History of CAD with stent 2. Hypertension 3. Restless leg syndrome 4. Hypothyroidism 5. Mood disorder Discharge Exam GENERAL- AAOX3, Emotional, Not in acute distressed NECK- Supple, no JVD LUNGS- Air entry bilaterally equal. No rales, rhonchi, crackles, wheezes heard. HEART- Regular rate and rhythm. No murmurs ABDOMEN- Soft, non tender, nondistended, bowel sounds present EXTREMITIES- Good peripheral pulses, no edema MOOD- Depressed Discharge Data Allergies Allergy/AdvReac Type Severity Reaction Status Date / Time latex Allergy Intermediate RASH Verified 05/12/19 11:23 nickel Allergy Intermediate SEVERE Verified 05/12/19 11:23 DERMATITIS NSAIDS (Non-Steroidal Allergy Intermediate HX OF Verified 05/12/19 11:23 Anti-Inflamma BLEEDING ULCERS aspirin AdvReac Intermediate bleeding Verified 05/12/19 11:23 ulcers Consultations 05/12/19 15:06 ED Decision to Admit Stat 05/17/19 10:44 Consult Gastroenterology Routine Ordered Studies 05/12/19 11:33 CT abd pelvis wo con Stat Hospital Course (1) Blood in the stool: Likely Lower GI bleeding Patient was about to be discharged 05/16 evening after improving after cyclical nausea/vomiting episode. However, in the evening she had a large bowel movement with fresh red blood noted by RN.. Prior history of similar episode a few weeks ago. FOBT +ve EGD few years ago, colonoscopy last year with inadequate prep per patient -WBC went up to 20.82, HB 12.7 (Range - 12-13) --> WBC trending down to 15k, HB - 10.9 -Hold Aspirin till next GI appt for EGD/Colonoscopy -Protonix 40 mg PO BID started empirically -GI consulted --> discussed case with BOB--> Plan is for outpatient EGD/C olonoscopy on 05/31/2019 -Stool studies ordered. C diff - negative, Follow up rest of the stool studies (2) Intractable nausea and vomiting: Patient is a known case of cyclical nausea and vomiting with multiple admissions in past and evaluation. Colonoscopy 07/2018- No recall was recommended. No associated diarrhea Prior hx of similar symptoms with admissions. Has a port in situ -Per RN, no episodes of vomiting seen since admission. Still continued to use [id number] IV Phenergan, Zofran, Ativan. So IVs were discontinued. -Tolerated diet better now . No more nausea, vomiting -On fentanyl patch as at home. Avoid narcotics -For EGD on 05/31/2019 -Appreciate GI inputs (3) JERE (acute kidney injury): -Creatinine bumped up to 2.02 from 0.87 and came down in 24 hours after IVF to baseline -Monitor outpatient (4) Hypokalemia: Resolved (5) CAD (coronary artery disease): H/o stent in 2017 -EKG without ischemic change, troponin negative -On aspirin, statin, Lopressor --> Hold aspirin (6) Hypertension: Uncontrolled as was refusing PO medications. Later BP dropped, now better with IVF -On home dose - amlodipine 10 mg, lisinopril 5 mg, metoprolol 25 mg twice daily with holding parameters (7) Restless leg syndrome: -Continue Mirapex (8) Hypothyroidism: -Continue levothyroxine (9) Mood disorder: Depressed mood is contributing to her current symptoms -Recently stopped Abilify and started Latuda? -Trazodone HS -Denies any suicidal ideations or attempts. -Offered to be seen by psychiatrist, refused. -Do strongly recommend outpatient psychiatric follow ups DVT Ppx: SCDs in setting of blood-tinged emesis. May need to transition to SQ Lovenox if hgb remains stable Code status: FULL PCP: Maria Ines Dispo: Observation status changed to inpatient status on 05/17/19 as BRBPR episode. Ok to discharge today evening with EGD/Colonoscopy scheduled for 05/31/2019 at [facility] GI cleared for discharge Total Time Total Time Spent Total Time Spent (In Minutes): 40 minute Discharge Plan Discharge Items Patient Disposition: Home - Self-Care Reason For Visit: CYCLIC VOMITING SYNDROME Discharge Diagnosis: Cyclical vomiting syndrome Bright red blood per rectum Hypokalemia Discharge Goals: Decrease discomfort Activity: Resume your previous activity Non-emergency contact: Primary Care Provider Call non-emergency contact if: your symptoms worsen Follow-up/Referrals: Leydi Connor [Physician] - (May 31/2019- FOR EGD/COLONOSCOPY. You will receive call from [facility] for time) Charanjit Spann MD [Primary Care Provider] - 05/23/19 11:20 am Diet: Low Sodium (2gm) Addtl Provider Instructions: You were admitted to hospital for nausea and vomiting. You are scheduled for EGD/colonoscopy on 05/31/2019 at [facility]. You will receive a call from there for the timing and preparation specifics. Medication changes Hold Aspirin as you had blood in your stool - hold till next appointment with PCP -Hold amlodipine 5 mg, HCTZ as BP is low -New medication- Protonix 40 mg PO twice a day till further directed by GI MONITOR BP outpatient as held amlodipine, HCTZ ASA held due to bright red blood per rectum Prescriptions: New pantoprazole 40 mg Tablet,Delayed Release (Dr/Ec) 40 mg PO BID 30 Days Qty: 60 RF: 0 Continued atorvastatin [Lipitor] 40 mg Tablet 40 mg PO QAM RF: 0 amlodipine [Norvasc] 5 mg Tablet 5 mg PO QAM RF: 0 levothyroxine 75 mcg Tablet 75 mcg PO QAM RF: 0 buspirone 10 mg Tablet 10 mg PO TID RF: 0 metoprolol tartrate 25 mg Tablet 25 mg PO BID RF: 0 tizanidine [Zanaflex] 4 mg Capsule 4 mg PO BID PRN (Reason: Pain) RF: 0 hydroxyzine HCl 50 mg Tablet 50 mg PO HS RF: 0 tramadol [Ultram] 50 mg Tablet 50 mg PO Q8 PRN (Reason: severe pain) RF: 0 pramipexole [Mirapex] 0.125 mg Tablet 0.125 mg PO HS RF: 0 fentanyl 37.5 mcg/hour Patch 72 Hour 1 patch TRANSDERMAL Q72H RF: 0 potassium chloride [Klor-Con M20] 20 mEq tablet,ER particles/crystals 20 meq PO BID RF: 0 prochlorperazine maleate 5 mg tablet 10 mg PO BID PRN (Reason: Nausea) RF: 0 amitriptyline 25 mg tablet 25 mg PO HS RF: 0 trazodone 100 mg tablet 200 mg PO HS RF: 0 polyethylene glycol 3350 17 gram Powder In Packet 17 g PO DAILY PRN (Reason: Nausea) RF: 0 promethazine [Phenergan] 25 mg Suppository 25 mg SD Q6H PRN (Reason: Nausea) RF: 0 ondansetron HCl [Zofran] 8 mg Tablet 8 mg PO Q6H PRN (Reason: Nausea) RF: 0 promethazine 25 mg Tablet 25 mg PO Q6H PRN (Reason: Nausea) RF: 0 Latuda 20 mg tablet 20 mg PO HS RF: 0 Combivent Respimat 20-100 mcg/actuation Mist 1 puff INHALATION QID RF: 0 Discontinued aspirin 81 mg Tablet,Delayed Release (Dr/Ec) 81 mg PO QAM RF: 0 lisinopril 5 mg Tablet 5 mg PO QAM RF: 0 hydrochlorothiazide 25 mg Tablet 25 mg PO QAM RF: 0 Stand-Alone Forms: [facility] Discharge Orders: Discharge Order (Routine); Ordered 05/18/19 Ordered By: Ruma Ramsey Admission Data Admit Date/Time: 05/12/19 16:34 Attending Provider: Ruma Ramsey Admit Provider: Stan De La Cruz Primary Care Provider: Charanjit Spann Other Providers: Stan De La Cruz ; Leydi Connor Service: Telemetry Medical
[2019-05-18] MEDS ORDERED: HEPARIN 100 UNIT/ML 5ML FLUSH ONE (16:35)
[2019-05-18] MEDS: fentaNYL 12 MCG/HR TDSY TD SCH (16:38)
[2019-05-18] MEDS: fentaNYL 25 MCG/HR TDSY TD SCH (16:38)
== END 2019-05-18 18:28 | disposition home or self-care (01) | DRG 103 ==
LOC: ED 09:46 → 2W 16:34

== ENCOUNTER 2019-05-26 17:05 | Inpatient (IN) ==
[2019-05-26] MEDS ORDERED: ACETAMINOPHEN 1,000 MG/100 ML VIAL IV STA (17:50)
[2019-05-26] MEDS ORDERED: PROCHLORPERAZINE 2 ML IV ONE (17:50)
[2019-05-26] MEDS ORDERED: SODIUM CHLORIDE 0.9% 1000ML 1,000 ML IV SCH (18:00)
--- NOTE | 2019-05-26 18:07 | XRay Report ---
SINGLE VIEW CHEST CLINICAL HISTORY: Atypical chest pain. FINDINGS: An AP, portable, upright chest radiograph is compared to study dated 03/30/2019 and correlat ed with chest CT dated 04/30/2018. The examination is degraded by portable technique and patient rotat ion. A left subclavian central venous infusion port is unchanged in position. Midline sternotomy wir es are noted. The heart is enlarged and there is atherosclerotic calcification of the thoracic aorta. There is mild pulmonary vascular congestion. Emphysema and chronic interstitial thickening are simil ar to previous. There are bibasilar airspace opacities, right greater than left. No large pleural eff usion or pneumothorax is seen. Scattered calcified granulomas are observed. The skeletal structures a re osteopenic. The bony thorax is grossly intact. Degenerative change and scoliosis are noted in the thoracic spine. IMPRESSION: 1. Cardiomegaly and mild pulmonary vascular congestion. 2. There are bibasilar airspace opacities. This could represent atelectasis versus an infectious/infl ammatory pneumonitis. Clinical correlation will be required. 3. Emphysema. Electronically signed by: Ivan Smith M.D. 05/26/2019 6:05 PM
[2019-05-26 18:29] LABS: Basophils # (auto) 0.03 K/uL (0-0.2); Basophils % (auto) 0.2 %; Eosinophils # (auto) 0.39 K/uL (0-0.5); Eosinophils % (auto) 2.4 %; Hemoglobin 10.8 g/dL (12.0-16.0); Immature Granulocytes # (auto) 0.05 K/uL (0.00-0.02); Immature Granulocytes % (auto) 0.3 %; Lymphocytes # (auto) 2.92 K/uL (1.2-3.4); Lymphocytes % (auto) 18.3 %; Mean Corpuscular Hgb Conc 33.8 g/dL (32-36); Mean Corpuscular Volume 89.4 fL (80-100); Monocytes # (auto) 1.18 K/uL (0.11-0.59); Monocytes % (auto) 7.4 %; Neutrophils # (auto) 11.39 K/uL (1.4-6.5); Neutrophils % (auto) 71.4 %; Platelet Count 346 K/uL (130-400); RDW Standard Deviation 46.3 fL (36.4-46.3); Red Blood Count 3.58 M/uL (4.2-5.4); White Blood Count 15.96 K/uL (4.8-10.8)
[2019-05-26 18:46] LABS: Alanine Aminotransferase 17 U/L (12-78); Aspartate Aminotransferase 16 U/L (15-37); BUN Creatinine Ratio 16.3 (10-20); Bilirubin Direct 0.1 mg/dl (0-0.2); Blood Urea Nitrogen 20 mg/dl (7-18); Calcium 8.7 mg/dl (8.5-10.1); Carbon Dioxide 30 mmol/L (21-32); Chloride 99 mmol/L (98-107); Creatinine Clr Calc Pharmacy 45.2 ml/min; Est GFR (African American) 50.6; Est GFR (Non-African American) 43.7; Glucose 102 mg/dl (70-99); Magnesium 1.7 mg/dl (1.8-2.4); Phosphorus 3.8 mg/dl (2.5-4.9); Potassium 3.3 mmol/L (3.5-5.1); Sodium 135 mmol/L (136-145)
[2019-05-26 18:49] LABS: Albumin Globulin Ratio 0.9 (0.9-2); Alkaline Phosphatase 88 U/L (45-117); Bilirubin,Total 0.4 mg/dl (0.2-1); Globulin 3.5 gm/dl (2.5-4.0); Total Protein 6.5 gm/dl (6.4-8.2); Troponin I < 0.015 ng/ml (0-0.045)
[2019-05-26] MEDS ORDERED: SODIUM CHLORIDE 0.9% 1000ML 1,000 ML IV ONE (19:05)
[2019-05-26] MEDS ORDERED: DICYCLOMINE HCL 10 MG/ML 2 ML AMP/VIAL IM ONE (19:08)
--- NOTE | 2019-05-26 19:14 | Emergency Department Note ---
Entered by Mishel Huff acting as a scribe for Adan Baxter MD History of Present Illness General Chief complaint: Illness Stated complaint: AB PAIN Time Seen by Provider: 05/26/19 17:29 Source: patient Limitations: no limitations History of Present Illness Onset (ago): day(s) 1 Location: abdomen (right-sided ) Pain Consistency: + constant Maximum Pain Intensity: 9 Quality: + other (abdominal pain) Associated symptoms: + denies other symptoms (change in BMs), + fever/chills and + other (body aches, intermittent nausea) Treatments prior to arrival: none The patient is a 69 year old female who presents to the Emergency Room with complaints of constant right-sided abdominal pain that worsened last night. She reports that she had abdominal discomfort for the past week. The patient complains of a fever of 100 degrees. She complains of body aches and intermittent nausea. The patient denies any change in BMs, stating that her last BM was yesterday. She reports that she was released from the hospital about a week ago after experiencing cyclic vomiting syndrome. 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 Home Medications Home Medications Medication Instructions Recorded Confirmed Type amlodipine [Norvasc] 5 mg PO QAM 12/13/18 05/26/19 History atorvastatin [Lipitor] 40 mg PO QAM 12/13/18 05/26/19 History buspirone 10 mg PO TID 12/13/18 05/26/19 History hydroxyzine HCl 75 mg PO HS 12/13/18 05/26/19 History levothyroxine 75 mcg PO QAM 12/13/18 05/26/19 History metoprolol tartrate 25 mg PO BID 12/13/18 05/26/19 History tizanidine [Zanaflex] 4 mg PO BID PRN 12/13/18 05/26/19 History pramipexole [Mirapex] 0.125 mg PO HS 01/25/19 05/26/19 History tramadol [Ultram] 50 mg PO Q8 PRN 01/25/19 05/26/19 History potassium chloride [Klor-Con M20] 20 meq PO BID 03/30/19 05/26/19 History ondansetron HCl [Zofran] 8 mg PO Q6H PRN 05/12/19 05/26/19 History polyethylene glycol 3350 17 g PO DAILY PRN 05/12/19 05/26/19 History prochlorperazine maleate 10 mg PO BID PRN 05/12/19 05/26/19 History promethazine 25 mg PO Q6H PRN 05/12/19 05/26/19 History trazodone 200 mg PO HS 05/12/19 05/26/19 History pantoprazole 40 mg PO BID 30 Days #60 tab 05/18/19 05/26/19 Rx C,E,zinc,copper [id number] 1 cap PO QAM 05/23/19 05/26/19 History [Ocuvite Adult 50 Plus] aspirin [Aspir-81] 81 mg PO QAM 05/23/19 05/26/19 History calcium carbonate-vitamin D3 1 cap PO BID 05/23/19 05/26/19 History [Calcium 600 + D(3)] epinephrine 0.3 mg IM Q3H PRN 05/23/19 05/26/19 History hydrochlorothiazide 25 mg PO QAM 05/23/19 05/26/19 History lisinopril 5 mg PO QAM 05/23/19 05/26/19 History magnesium oxide 400 mg PO BID 05/23/19 05/26/19 History nitroglycerin [Nitrostat] 0.3 mg SUBLINGUAL UD 05/23/19 05/26/19 History nystatin 1 applic TOPICAL TID PRN 05/23/19 05/26/19 History olopatadine 1 drp OPHTHALMIC (EYE) QAM 05/23/19 05/26/19 History fentanyl [Duragesic] 1 patch TOPICAL [id number] 05/26/19 05/26/19 History fentanyl [Duragesic] 1 patch TOPICAL [id number] 05/26/19 05/26/19 History ipratropium-albuterol [Combivent 1 puff INHALATION QID PRN 05/26/19 05/26/19 History Respimat] Allergies Allergy/AdvReac Type Severity Reaction Status Date / Time latex Allergy Intermediate Rash Verified 05/26/19 18:58 nickel Allergy Intermediate SEVERE Verified 05/26/19 18:58 DERMATITIS NSAIDS (Non-Steroidal Allergy Intermediate HX OF Verified 05/26/19 18:58 Anti-Inflamma BLEEDING ULCERS-TO AVOID aspirin AdvReac Intermediate bleeding Verified 05/26/19 18:58 ulcers Past Med/Surg History Medical History CAD (coronary artery disease) (Chronic) Hypertension (Chronic) Myocardial Infarction (Chronic) 2 YEARS AGO Pulmonary embolism (Chronic) 2 YEARS OLD (UNSURE OF REASON) Deep vein thrombosis (Chronic) 4 YEARS AGO Migraine (Chronic) Restless leg syndrome (Chronic) Anxiety (Chronic) Depression (Chronic) Post traumatic stress disorder (Chronic) Anemia (Chronic) HX OF Hypothyroidism (Chronic) Colitis (Chronic) Osteoarthritis (Chronic) Degenerative disc disease (Chronic) Chronic back pain TO BILAT LEGS Hyperlipidemia Kidney stones Osteoarthritis SOB (shortness of breath) on exertion Surgical History History of heart artery stent (Chronic) 2017- STENT PLACED AT [facility] (DR. DAVILA) History of adenoidectomy (Chronic) History of tonsillectomy (Chronic) History of appendectomy (Chronic) History of colonoscopy (Chronic) History of esophagogastroduodenoscopy (EGD) (Chronic) Fusion of spine (Chronic) LUMBAR History of laminectomy (Chronic) LUMBAR Ovarian cyst (Chronic) X 2 History of anesthesia reaction (Chronic) WOKE UP IN MIDDLE OF SPINAL SURGERIES History of cataract surgery (Chronic) LEFT AND RIGHT History of vascular access device PORT LEFT UPPER CHEST-IN PLACE Family History Other Hypertension Social History Preferred Language: Greenlandic Communication Ability: Effective Enterer Required: No Beliefs That Will Affect Care: None marital status: Current Living Situation: Alone current occupational status: retired Feels Safe at Home: Yes Smoking Status: Never smoker Second Hand Exposure: No ; Hx Alcohol Use: No Hx Substance Use: No Review of Systems See HPI for pertinent positives & negatives. and A total of 10 systems reviewed and were otherwise negative Physical Exam Vital Signs Vital Signs - 24 hr 05/26/19 17:13 05/26/19 17:18 05/26/19 17:20 Temperature Temperature Source Sepsis Recent Fever Within 48 Hours Sepsis Action Taken by Nursing Pulse Rate 67 66 69 Pulse Rate from SpO2 Sensor 67 66 69 Respiratory Rate 18 19 20 Respiratory Depth Respiratory Pattern Blood Pressure 105/60 Blood Pressure Mean 75 Pulse Oximetry 89 L 89 L 86 L Oxygen Delivery Method Room Air Oxygen Flow Rate 05/26/19 17:30 05/26/19 17:31 05/26/19 17:36 Temperature 37.0 C Temperature Source Oral Sepsis Recent Fever Within 48 Hours Yes Sepsis Action Taken by Nursing No Action Required Pulse Rate 66 70 Pulse Rate from SpO2 Sensor 66 Respiratory Rate 21 26 H Respiratory Depth Shallow Respiratory Pattern Tachypnea Blood Pressure 105/60 Blood Pressure Mean 75 Pulse Oximetry 92 86 L 96 Oxygen Delivery Method Nasal Cannula Room Air Nasal Cannula Oxygen Flow Rate 2 2 05/26/19 17:40 05/26/19 17:50 05/26/19 18:00 Temperature Temperature Source Sepsis Recent Fever Within 48 Hours Sepsis Action Taken by Nursing Pulse Rate 66 63 70 Pulse Rate from SpO2 Sensor 66 63 71 Respiratory Rate 18 17 14 Respiratory Depth Respiratory Pattern Blood Pressure Blood Pressure Mean Pulse Oximetry 93 95 97 Oxygen Delivery Method Oxygen Flow Rate 05/26/19 18:10 05/26/19 18:20 05/26/19 18:24 Temperature Temperature Source Sepsis Recent Fever Within 48 Hours Sepsis Action Taken by Nursing Pulse Rate 62 60 Pulse Rate from SpO2 Sensor 62 60 Respiratory Rate 21 17 Respiratory Depth Respiratory Pattern Blood Pressure 86/47 L Blood Pressure Mean 60 Pulse Oximetry 98 99 92 Oxygen Delivery Method Nasal Cannula Oxygen Flow Rate 2 05/26/19 18:30 05/26/19 18:33 05/26/19 18:40 Temperature Temperature Source Sepsis Recent Fever Within 48 Hours Sepsis Action Taken by Nursing Pulse Rate 62 60 59 L Pulse Rate from SpO2 Sensor 62 62 59 L Respiratory Rate 18 19 17 Respiratory Depth Respiratory Pattern Blood Pressure 90/56 L Blood Pressure Mean 67 Pulse Oximetry 95 97 98 Oxygen Delivery Method Oxygen Flow Rate 05/26/19 18:50 05/26/19 19:00 05/26/19 19:10 Temperature Temperature Source Sepsis Recent Fever Within 48 Hours Sepsis Action Taken by Nursing Pulse Rate 60 65 Pulse Rate from SpO2 Sensor 60 Respiratory Rate 16 16 13 Respiratory Depth Respiratory Pattern Blood Pressure 82/49 L Blood Pressure Mean 60 Pulse Oximetry 97 Oxygen Delivery Method Oxygen Flow Rate 05/26/19 19:15 05/26/19 19:42 05/26/19 19:50 Temperature Temperature Source Sepsis Recent Fever Within 48 Hours Sepsis Action Taken by Nursing Pulse Rate 62 64 65 Pulse Rate from SpO2 Sensor 62 64 65 Respiratory Rate 18 19 16 Respiratory Depth Respiratory Pattern Blood Pressure 90/49 L 103/58 L Blood Pressure Mean 62 73 Pulse Oximetry 98 96 94 Oxygen Delivery Method Oxygen Flow Rate 05/26/19 20:00 05/26/19 20:10 05/26/19 20:20 Temperature Temperature Source Sepsis Recent Fever Within 48 Hours Sepsis Action Taken by Nursing Pulse Rate 66 67 72 Pulse Rate from SpO2 Sensor 66 67 71 Respiratory Rate 16 19 12 Respiratory Depth Respiratory Pattern Blood Pressure 98/52 L Blood Pressure Mean 67 Pulse Oximetry 94 94 93 Oxygen Delivery Method Oxygen Flow Rate 05/26/19 20:30 05/26/19 20:40 05/26/19 20:50 Temperature Temperature Source Sepsis Recent Fever Within 48 Hours Sepsis Action Taken by Nursing Pulse Rate 65 65 69 Pulse Rate from SpO2 Sensor 65 Respiratory Rate 16 15 16 Respiratory Depth Respiratory Pattern Blood Pressure 98/63 L Blood Pressure Mean 74 Pulse Oximetry 95 Oxygen Delivery Method Oxygen Flow Rate 05/26/19 21:00 05/26/19 21:10 05/26/19 21:20 Temperature Temperature Source Sepsis Recent Fever Within 48 Hours Sepsis Action Taken by Nursing Pulse Rate 64 65 62 Pulse Rate from SpO2 Sensor 65 64 62 Respiratory Rate 16 15 14 Respiratory Depth Respiratory Pattern Blood Pressure 106/57 L Blood Pressure Mean 73 Pulse Oximetry 92 92 90 Oxygen Delivery Method Oxygen Flow Rate 05/26/19 21:30 05/26/19 21:40 05/26/19 21:50 Temperature Temperature Source Sepsis Recent Fever Within 48 Hours Sepsis Action Taken by Nursing Pulse Rate 65 62 61 Pulse Rate from SpO2 Sensor 65 Respiratory Rate 15 12 13 Respiratory Depth Respiratory Pattern Blood Pressure 102/49 L Blood Pressure Mean 66 Pulse Oximetry 92 Oxygen Delivery Method Oxygen Flow Rate GENERAL: Awake, alert, chronically ill-appearing, in no distress HENT: Normocephalic, atraumatic. Oropharynx with dry mucous membranes and otherwise unremarkable. EYES: Normal conjunctiva. Sclera non-icteric. NECK: Supple. No nuchal rigidity. FROM. No JVD. RESPIRATORY: Diminish BS at bases otherwise clear. CARDIAC: Regular rate, normal rhythm. Extremities warm and well perfused. Pulses equal. ABDOMEN: Soft, non-distended. Mild right flank and lower abdominal discomfort without discrete tenderness. No rebound or guarding. No masses. RECTAL: Deferred. MUSCULOSKELETAL: Chest examination reveals no tenderness. The back is symmetrical on inspection without obvious abnormality. There is no CVA tenderness to palpation. No joint edema. LOWER EXTREMITIES: Calves are equal size bilaterally and non-tender. No edema. No discoloration. NEURO: Normal sensorium. No sensory or motor deficits noted. SKIN: No rash or jaundice noted. Course 1738: The patient was evaluated in room B12. A complete history and physical exam was performed. 2006: [facility]. He will further evaluate the patient. 2026: I updated the patient on the plan, and she was in agreement. Consultations Consultation #1: [facility] tim zhao case. He will further evaluate the patient. Time: 20:07 Administered Medications Piperacillin Sod/Tazobactam Sod (Zosyn) 4.5 gm in 120 mls @ 30 mls/hr IV NOW ONE Stop: 05/26/19 23:57 Last Infusion: 05/26/19 22:55 Dose: 0 mls/hr Documented by: [id number] Admin: 05/26/19 20:52 Dose: 30 mls/hr Documented by: [id number] Discontinued Medications Dexamethasone (Decadron) 10 mg IV NOW STA Stop: 05/26/19 21:03 Last Admin: 05/26/19 21:46 Dose: 10 mg Documented by: [id number] Dicyclomine HCl (Bentyl) 20 mg IM NOW ONE Stop: 05/26/19 19:09 Last Admin: 05/26/19 19:15 Dose: 20 mg Documented by: [id number] Acetaminophen (Ofirmev) 1,000 mg in 100 mls @ 400 mls/hr IV NOW STA Stop: 05/26/19 18:04 Last Infusion: 05/26/19 19:02 Dose: 0 mls/hr Documented by: [id number] Admin: 05/26/19 18:29 Dose: 400 mls/hr Documented by: [id number] Sodium Chloride (Nss 1000ml) 1,000 mls @ 999 mls/hr IV .Q1H1M COLT Stop: 05/26/19 19:00 Last Infusion: 05/26/19 19:55 Dose: 0 mls/hr Documented by: [id number] Admin: 05/26/19 18:32 Dose: 999 mls/hr Documented by: [id number] Prochlorperazine (Compazine) 2 mls @ 1 mls/min IV ONE ONE Stop: 05/26/19 17:51 Last Admin: 05/26/19 18:33 Dose: 1 mls/min Documented by: [id number] Sodium Chloride (Nss 1000ml) 1,000 mls @ 999 mls/hr IV .Q1H1M ONE Stop: 05/26/19 20:05 Last Infusion: 05/26/19 20:57 Dose: 0 mls/hr Documented by: [id number] Admin: 05/26/19 19:42 Dose: 999 mls/hr Documented by: [id number] Magnesium Sulfate/Dextrose (Magnesium Sulfate / D5w) 1 gm in 100 mls @ 100 mls/hr IV Q1H COLT Stop: 05/26/19 21:14 Last Infusion: 05/26/19 22:02 Dose: 0 mls/hr Documented by: [id number] Admin: 05/26/19 20:57 Dose: 100 mls/hr Documented by: [id number] Infusion: 05/26/19 20:42 Dose: 100 mls/hr Documented by: [id number] Admin: 05/26/19 19:42 Dose: 100 mls/hr Documented by: [id number] Medical Decision Making Differential Diagnosis Etiologies such as biliary colic, cholecystitis, hepatitis, perihepatitis, panc reatitis, cardiac disease, pancreatitis, gastritis, peptic ulcer disease, appendicitis, ovarian torsion, ectopic , pelvic inflammatory disease, cystitis, diverticulitis, mesenteric ischemia, inflammatory bowel disease, ileus, bowel obstruction, aortic pathology, shingles, as well as others were considered. Medical Records Attestation: I reviewed the patient's medical records. Home Medications Current Medication List: was personally reviewed by me Laboratory Data Attestation: I reviewed the patient's lab results. Result diagrams: 05/26/19 18:20 05/26/19 18:20 Lab Results 05/26/19 05/26/19 05/26/19 Range/Units 18:20 18:20 18:20 WBC 15.96 H (4.8-10.8) K/uL RBC 3.58 L (4.2-5.4) M/uL Hgb 10.8 L (12.0-16.0) g/dL Hct 32.0 L (37-47) % MCV 89.4 (80-100) fL MCH 30.2 (25-34) pg MCHC 33.8 (32-36) g/dL RDW Std Deviation 46.3 (36.4-46.3) fL RDW Coeff of [place] 14.0 (11.5-14.5) % Plt Count 346 (130-400) K/uL MPV 9.0 (7.4-10.4) fL Immature Gran % (Auto) 0.3 % Neut % (Auto) 71.4 % Lymph % (Auto) 18.3 % [place] % (Auto) 7.4 % Eos % (Auto) 2.4 % Baso % (Auto) 0.2 % Immature Gran # (Auto) 0.05 H (0.00-0.02) K/uL Neut # (Auto) 11.39 H (1.4-6.5) K/uL Lymph # (Auto) 2.92 (1.2-3.4) K/uL [place] # (Auto) 1.18 H (0.11-0.59) K/uL Eos # (Auto) 0.39 (0-0.5) K/uL Baso # (Auto) 0.03 (0-0.2) K/uL Sodium 135 L (136-145) mmol/L Potassium 3.3 L (3.5-5.1) mmol/L Chloride 99 (98-107) mmol/L Carbon Dioxide 30 (21-32) mmol/L Anion Gap 5.0 (3-11) BUN 20 H (7-18) mg/dl Creatinine 1.24 H (0.6-1.2) mg/dl Est Cr Clr Drug Dosing 45.2 ml/min Est GFR ( Amer) 50.6 Est GFR (Non-Af Amer) 43.7 BUN/Creatinine Ratio 16.3 (10-20) Glucose 102 H (70-99) mg/dl Lactate (0.4-2.0) mmol/L Calcium 8.7 (8.5-10.1) mg/dl Phosphorus 3.8 (2.5-4.9) mg/dl Magnesium 1.7 L (1.8-2.4) mg/dl Total Bilirubin 0.4 (0.2-1) mg/dl Direct Bilirubin 0.1 (0-0.2) mg/dl AST 16 (15-37) U/L ALT 17 (12-78) U/L Alkaline Phosphatase 88 (45-117) U/L Troponin I < 0.015 (0-0.045) ng/ml NT-Pro-B Natriuret Pep 155 (0-900) pg/ml Total Protein 6.5 (6.4-8.2) gm/dl Albumin 3.0 L (3.4-5.0) gm/dl Globulin 3.5 (2.5-4.0) gm/dl Albumin/Globulin Ratio 0.9 (0.9-2) Lipase 52 L (73-393) U/L 05/26/19 Range/Units 20:26 WBC (4.8-10.8) K/uL RBC (4.2-5.4) M/uL Hgb (12.0-16.0) g/dL Hct (37-47) % MCV (80-100) fL MCH (25-34) pg MCHC (32-36) g/dL RDW Std Deviation (36.4-46.3) fL RDW Coeff of [place] (11.5-14.5) % Plt Count (130-400) K/uL MPV (7.4-10.4) fL Immature Gran % (Auto) % Neut % (Auto) % Lymph % (Auto) % [place] % (Auto) % Eos % (Auto) % Baso % (Auto) % Immature Gran # (Auto) (0.00-0.02) K/uL Neut # (Auto) (1.4-6.5) K/uL Lymph # (Auto) (1.2-3.4) K/uL [place] # (Auto) (0.11-0.59) K/uL Eos # (Auto) (0-0.5) K/uL Baso # (Auto) (0-0.2) K/uL Sodium (136-145) mmol/L Potassium (3.5-5.1) mmol/L Chloride (98-107) mmol/L Carbon Dioxide (21-32) mmol/L Anion Gap (3-11) BUN (7-18) mg/dl Creatinine (0.6-1.2) mg/dl Est Cr Clr Drug Dosing ml/min Est GFR ( Amer) Est GFR (Non-Af Amer) BUN/Creatinine Ratio (10-20) Glucose (70-99) mg/dl Lactate 1.0 (0.4-2.0) mmol/L Calcium (8.5-10.1) mg/dl Phosphorus (2.5-4.9) mg/dl Magnesium (1.8-2.4) mg/dl Total Bilirubin (0.2-1) mg/dl Direct Bilirubin (0-0.2) mg/dl AST (15-37) U/L ALT (12-78) U/L Alkaline Phosphatase (45-117) U/L Troponin I (0-0.045) ng/ml NT-Pro-B Natriuret Pep (0-900) pg/ml Total Protein (6.4-8.2) gm/dl Albumin (3.4-5.0) gm/dl Globulin (2.5-4.0) gm/dl Albumin/Globulin Ratio (0.9-2) Lipase (73-393) U/L Imaging Data Radiologist's Impression: Radiology results as stated below per my review and the radiologist's interpretation: SINGLE VIEW CHEST CLINICAL HISTORY: Atypical chest pain. FINDINGS: An AP, portable, upright chest radiograph is compared to study dated 03/30/2019 and correlated with chest CT dated 04/30/2018. The examination is degraded by portable technique and patient rotation. A left subclavian central venous infusion port is unchanged in position. Midline sternotomy wires are noted. The heart is enlarged and there is atherosclerotic calcification of the thoracic aorta. There is mild pulmonary vascular congestion. Emphysema and chronic interstitial thickening are similar to previous. There are bibasilar airspace opacities, right greater than left. No large pleural effusion or pneumothorax is seen. Scattered calcified granulomas are observed. The skeletal structures are osteopenic. The bony thorax is grossly intact. Degenerative change and scoliosis are noted in the thoracic spine. IMPRESSION: 1. Cardiomegaly and mild pulmonary vascular congestion. 2. There are bibasilar airspace opacities. This could represent atelectasis versus an infectious/inflammatory pneumonitis. Clinical correlation will be required. 3. Emphysema. Electronically signed by: Ivan Smith M.D. 05/26/2019 6:[address] SCAN OF THE BRAIN WITHOUT IV CONTRAST CLINICAL HISTORY: Fall. COMPARISON STUDY: CT of the brain dated 02/26/2019. TECHNIQUE: Unenhanced axial CT scan of the brain is performed from the vertex to the skull base. A dose lowering technique was utilized adhering to the principles of ALARA. FINDINGS: Brain parenchyma: The brain parenchyma is normal in appearance. There is no hemorrhage, mass effect, or evidence of acute territorial ischemia by CT criteria. Hernandez-white matter differentiation is preserved. No extra-axial fluid collection is seen. Ventricles, sulci, cisterns: Normal in configuration. Intracranial vasculature: There is mild atherosclerotic calcification of the cavernous carotid and vertebral arteries. Calvarium: There is no depressed calvarial fracture. Sinuses and mastoids: The paranasal sinuses are clear. The mastoid air cells are well pneumatized. Orbits: The bony orbits are grossly intact. IMPRESSION: No acute intracranial abnormality. Electronically signed by: Ivan Smith M.D. 05/26/2019 5:50 PM ECG Data Attestation: I personally reviewed and interpreted this ECG as follows: Indication: abdominal pain Rate (beats per minute): 63 Rhythm: normal sinus Findings: + other (normal axis, no overt acute ischemia) Comparison ECG Date: from (05/12/19) Change: no significant change Blood Pressure Blood Pressure Findings: Low blood pressure Blood Pressure Disposition: further management by hospitalist LU Witt The patient is a pleasant 69-year-old woman with a pmhx of Migraines, chronic pain syndrome, DVT/PE no longer on AC, CAD s/p PCI, RLS, anxiety resents emergency department with feverishness and right flank pain with nausea in setting of being discharged on Thursday after admission for cyclic vomiting per hpi. On arrival the patient is chronically ill-appearing but no acute distress, afebrile stable vital signs. Patient appears clinically dry. She has mild right flank and lower abdominal discomfort without discrete tenderness. EKG unremarkable without evidence of acute ischemia. CXR with bibasilar opacity suspicious for pneumonia/pneumonitis. WC 15.9 similar to prior value. H/H 10.8/32 similar to prior range of values. Platelets within normal limits. Chemistry without acidosis. BUN 20 and creatinine 1.24 slightly increased from patient's recent discharge. Magnesium 1.7 with repletion provided. Troponin negative. LFTs unremarkable. CT abdomen pelvis performed and further clarifies basilar opacities again suspicious for pneumonia/pneumonitis. There is additional evidence of possible colitis. Given the patient's hypoxia, leukocytosis and elevated BUN reasonable admit the patient for further management. Given the patient's recent hospitalization blood cultures will be d rawn and patient will treated initially with Zosyn. Case was discussed with Dr. Miller, [facility] hospitalist, who will evaluate the patient for admission. Impression & Plan Pneumonia, Acute kidney injury, Hypomagnesemia Discharge Plan Visit Data *Final* Discharge Date/Time: 05/26/19 22:48 Chief Complaint: Illness Stated Complaint: AB PAIN ED Provider: Adan Baxter Discharge Problem: Pneumonia, Acute kidney injury, Hypomagnesemia Patient Disposition: Admitted As Inpatient Discharge Instructions Interventions: ED Discharge Assessment Last Done: 05/26/19 22:48 The scribe's documentation has been prepared under my direction and personally reviewed by me in its entirety. I confirm that the note above accurately reflects all work, treatment, procedures, and medical decision making performed by me.
[2019-05-26] MEDS: MAGNESIUM SULFATE / D5W 1 GM/100 ML BAG IV SCH ×2 (19:42→20:57)
--- NOTE | 2019-05-26 19:48 | CT Scan Report ---
CT SCAN OF THE ABDOMEN AND PELVIS WITHOUT IV CONTRAST CLINICAL HISTORY: Nausea. Right-sided abdominal pain. COMPARISON STUDY: Multiple recent prior abdominal CT scans, most recently dated 05/12/2019. TECHNIQUE: CT scan of the abdomen and pelvis is performed from the lung bases to the proximal femora. Images are reviewed in the axial, sagittal, and coronal planes. IV contrast was not administered for this examination as per the referring clinician. Note that the examination was performed in suboptim al fashion without oral and IV contrast. A dose lowering technique was utilized adhering to the princ iplcarmela of KAYLEN. CT DOSE: 850.73 mGy.cm FINDINGS: Lung bases: The heart is normal in size and without pericardial effusion. Postoperative change is sug gested at the left lung base. Trace pleural effusions are identified. Patchy airspace consolidation i s seen at the right lung base. Scarring/atelectasis is noted at both lung bases. There is a small hia jazlyn hernia. Liver: The unenhanced liver is normal in size, contour, and attenuation. There is no intrahepatic mikey iary ductal dilatation. Gallbladder: Unremarkable. Spleen: Normal in size and attenuation. Pancreas: The unenhanced pancreas is mildly atrophic and grossly unremarkable. Adrenal glands: Unremarkable. Kidneys: The unenhanced kidneys demonstrate cortical atrophy and are without hydronephrosis. There is a 4 mm nonobstructing calculus in the left upper pole. No right renal calculi are identified. There is no evidence of contour deforming renal mass lesion. Abdominal vasculature: The abdominal aorta is normal in course and caliber noting moderate to advance d atherosclerotic calcification. Bowel: There is mild colonic diverticulosis without CT evidence of acute diverticulitis. No bowel obs truction is seen. Fecal retention is noted in the right colon. Question mild wall thickening of the d escending colon with faint pericolonic infiltration. The appendix is not identified and reported reed gically absent. Peritoneum: There is no intraperitoneal free air or abdominal ascites. Lymphadenopathy: None. Pelvic viscera: The bladder is partially decompressed and grossly unremarkable. Uterine fibroids are suggested. No adnexal lesion is seen. Large gluteal calcifications are again noted. Skeletal structures: The skeletal structures are osteopenic. There is moderate to advanced lumbosacra l spondylosis and scoliosis with evidence of DISH. Extensive postlaminectomy change is seen throughou t the thoracolumbar spine. Advanced degenerative sclerosis is seen in the sacroiliac joints. A bone g raft donor site is noted in the left ilium. No lytic or blastic lesions are seen. Chronic change is n oted in the left lower ribs. A fragment of an intrathecal catheter is again seen within the central c anal in the upper lumbar region. IMPRESSION: 1. Suboptimal examination without oral and IV contrast. 2. Dependent airspace consolidation is seen at the right lung base and there are trace pleural effusi ons. The appearance suggests pneumonia/aspiration pneumonitis. Clinical correlation will be required and radiographic follow-up to resolution is recommended. 3. Question a mild colitis of the descending colon. Clinical correlation will be required. 4. Left-sided nephrolithiasis. 5. Additional chronic changes as above. Electronically signed by: Ivan Smith M.D. 05/26/2019 7:47 PM
[2019-05-26] MEDS ORDERED: PIPERACILLIN/TAZOBACTAM 4.5 GM/120 ML BAG IV ONE (19:58)
[2019-05-26] MEDS ORDERED: DEXAMETHASONE SOD INJ 4 MG/ML VIAL IV STA (21:02)
[2019-05-26 22:40] LABS: Appearance Urine Clear (Clear); Bacteria Urine Automated Negative (Negative); Bilirubin Urine Negative (Negative); Blood Urine Negative (Negative); Color Urine Yellow; Glucose Urine UA Negative (Negative); Ketones Urine Negative (Negative); Leukocyte Esterase Urine Trace (Negative); Nitrite Urine Negative (Negative); Protein Urine Negative (Negative); RBC Urine Automated 0-4 /hpf (0-4); Specific Gravity Urine 1.011 (1.000-1.030); Urobilinogen Urine Negative (Negative)
[2019-05-26] MEDS ORDERED: POLYETHYLENE (MIRALAX) 17 GM PACK PO PRN (23:21)
[2019-05-26] MEDS ORDERED: TRAMADOL HCL 50 MG TABLET PO PRN (23:21)
[2019-05-26] MEDS ORDERED: NITROGLYCERIN 0.3 MG/1 TAB 100 TAB BTL SL SCH (23:21)
[2019-05-26] MEDS ORDERED: PROCHLORPERAZINE MALEATE 5 MG TAB PO PRN (23:21)
[2019-05-26] MEDS ORDERED: ONDANSETRON 8 MG TABLET PO PRN (23:21)
[2019-05-26] MEDS ORDERED: EPINEPHrine INJ 1 MG/ML AMP IM PRN (23:21)
[2019-05-26] MEDS ORDERED: POTASSIUM CHLORIDE 10 MEQ TABCR PO STA (23:21)
[2019-05-26] MEDS ORDERED: IPRATROPIUM BROMIDE/ALBUTEROL respimat INH INH PRN (23:21)
[2019-05-26] MEDS ORDERED: NITROGLYCERIN SL 0.4 MG/TAB TAB SL PRN (23:21)
[2019-05-26] MEDS ORDERED: PIPERACILL/TAZOBAC CONSULT ACTIVE PRN (23:21)
[2019-05-26] MEDS ORDERED: PROMETHAZINE HCL 25 MG TAB PO PRN (23:21)
[2019-05-26] MEDS ORDERED: HYDROmorphone INJ 0.5 MG/0.5 ML SYR IV STA (23:21)
[2019-05-27] MEDS ORDERED: MAGNESIUM SULFATE / D5W 1 GM/100 ML BAG IV ONE
[2019-05-27] MEDS ORDERED: DOXYCYCLINE HYCLATE 100 MG in DEXTROSE 5% 100 ML IV SCH
--- NOTE | 2019-05-27 00:42 | History and Physical Report ---
DATE OF ADMISSION: 05/26/2019 CHIEF COMPLAINT: Not feeling well. HISTORY OF PRESENT ILLNESS: A 69-year-old female with past medical history significant for cyclic vomiting syndrome, CAD status post stent, hypertension, hypothyroidism, chronic pain syndrome, restless legs syndrome, hypokalemia, mood disorder, who was recently in the hospital with intractable nausea and vomiting that got improved. Also during hospitalization she has some blood in the stool. Her aspirin was held and she was supposed to follow with GI as outpatient on 05/31/2019 for outpatient EGD and colonoscopy. Also at discharge her lisinopril and hydrochlorothiazide was held for hypotension as her blood pressure was dropping at that time. But the patient says after going home, her PCP advised to take those medications and she says since discharge she was not feeling well, but last 1 or 2 days she was feeling dizzy, nauseous and having pain in the right lower chest, radiating to her right upper abdomen, so went to family doctor where she was found to be hypotensive and advised to come to the ER. In the ER, when she came in, her systolic blood pressure was in the 80s, improved with fluids. White count was 15,000. Magnesium was 1.7, potassium was 3.3. Chest x-ray showed bibasilar airspace opacities, possible pneumonitis. CT of the abdomen and pelvis showed consolidation in the right lung base, possible aspiration pneumonitis and question of mild colitis of the descending colon. The patient received IV Zosyn in the ER. Complaining of pain in the lower chest when taking deep breaths, requests for pain medications, and also temp spike at home and the PCP's office. Denies any cough. Denies shortness of breath. Nauseous but no vomiting. Normal bowel and bladder movements. No burning micturition, no hematuria. Denies any black stools or blood in the stools. Appetite is okay, sleeping okay. Ambulating okay. Lives alone. Denies any headache, no blurred vision, no earache, no runny nose, no sore throat, no difficulty swallowing. No rash. Currently resting comfortably and hemodynamically stable. ALLERGIES: ADVIL, ASPIRIN, LATEX, NICKEL, NSAIDS, AND ASPIRIN. PAST MEDICAL HISTORY: As mentioned above. PAST SURGICAL HISTORY: I and D of infection of abdominal wall hematoma, colonoscopy, skin panniculectomy, incision of right tendon sheath of the wrist, appendectomy, spinal fusion x5, back surgeries, removal of ovarian cyst, right meniscal repair, right rotator cuff repair, right trigger finger release. MEDICATIONS: The patient is on levothyroxine 75 mcg daily, Zofran 8 mg p.o. q. 6 hours p.r.n., Protonix 40 mg p.o. b.i.d., Phenergan 25 mg p.o. q. 6 hours p.r.n., fentanyl 37.5 mcg q. 72 hours, Lipitor 40 mg p.o. daily, lisinopril 5 mg p.o. daily, Mirapex 0.125 mg at bedtime, tramadol 50 mg p.o. every 8 hours p.r.n., Lopressor 25 mg p.o. b.i.d., amlodipine 5 mg p.o. daily, olopatadine ophthalmic solution 1 drop in both eyes daily, Zanaflex 4 mg p.o. b.i.d. p.r.n., hydrochlorothiazide 25 mg p.o. daily, Compazine 10 mg p.o. b.i.d. p.r.n., Combivent 1 puff 4 times daily, potassium chloride 20 mEq p.o. b.i.d., BuSpar 10 mg p.o. t.i.d., nitroglycerin p.r.n., aspirin 81 mg p.o. daily, MiraLax 17 g daily p.r.n., epinephrine p.r.n., trazodone 200 mg p.o. at bedtime, calcium carbonate plus vitamin D one tablet b.i.d., Ocuvite Adult 50 one capsule daily, magnesium oxide 400 mg p.o. b.i.d. FAMILY HISTORY: Significant for father has glaucoma, aunt has breast cancer, sister has heart disorder, father has hypertension, mother has hypertension. SOCIAL HISTORY: Lives alone. No smoking, no alcohol, no drug use. REVIEW OF SYMPTOMS: As per HPI. Rest of review of systems negative. PHYSICAL EXAMINATION: GENERAL: The patient is obese, not in acute distress. VITAL SIGNS: Temperature 37, pulse 62, respiratory rate 12, blood pressure 102/49, oxygen 92% on 2 liters. HEENT: No pallor, no icterus. Pupils equal, round, reactive to light. NECK: No JVD, no neck masses, no carotid bruits. CARDIOVASCULAR: S1, S2 heard, regular rate and rhythm, no murmur, no gallop. RESPIRATORY SYSTEM: Normal AP diameter. No accessory muscle use. No wheezing, no crackles. ABDOMEN: Soft, bowel sounds present. Right upper quadrant tenderness present. No guarding, no rigidity, no distention. CENTRAL NERVOUS SYSTEM: Cranial nerves II-XII grossly intact. Nonfocal. EXTREMITIES: No edema, no erythema. LABORATORY DATA: WBC 15.9, hemoglobin 10.8, hematocrit 32, platelets 346. Sodium 135, potassium 3.3, chloride 99, bicarbonate 30, BUN 20, creatinine 1.2, serum glucose 102, lactate 1, calcium 8.7, phosphorus 3.8, magnesium 1.7, total bilirubin 0.4, direct bilirubin 0.1, AST 16, ALT 17, alkaline phosphatase 88, troponin I less than 0.015. BNP 155, lipase 52. IMAGING DATA: CT of the abdomen and pelvis, dependent airspace consolidation is seen in the right lung base and there is trace pleural effusions. Appearance suggests pneumonia, aspiration pneumonitis, question of mild colitis of the descending colon, left-sided nephrolithiasis. Chest x-ray, cardiomegaly, mild pulmonary vascular congestion, bibasilar airspace opacities. EKG: Normal sinus rhythm with rate of 63, no acute ST changes seen. ASSESSMENT AND PLAN: A 69-year-old female who was recently in the hospital for cyclic vomiting syndrome and also at that time she also had GI bleed. Has plan for outpatient EGD and colonoscopy on 05/31/2019. She presents with not feeling well at home, fever, dizziness, and hypotension and found to have right lower lobe pneumonia. 1. Right lower lobe pneumonia, was recently in the hospital, possible aspiration pneumonitis. At this time, she is not having nausea or vomiting. Placed on IV Zosyn in the ER. Will continue IV Zosyn and also placed on IV doxycycline to cover for any atypical coverage and follow the cultures and follow the response. Patient does not have any cough. We will place on clear liquid diet for now. The patient is also having severe pain in the chest when taking deep breaths and was hypotensive on presentation, can consider CT scan of the chest to rule out pulmonary embolism. 2. Hypotension. Last admission, the lisinopril and hydrochlorothiazide was stopped, but the patient is still taking them. She says she was advised to take it by PCP. Will hold her lisinopril and hydrochlorothiazide. Amlodipine and Lopressor with holing parameters.On Iv fluids. 3. History of hypertension. Will continue Lopressor and amlodipine withholding parameters and hold her above medications and follow the blood pressure in the hospital. 4. History of gastrointestinal bleed. The patient currently denies any ongoing gastrointestinal bleed. Aspirin is held from last admission. Hemoglobin is stable at 10.8. Plan for EGD and colonoscopy on 05/31/2019 as outpatient. To consider Consulting GI while she is in the hospital. 5. Mild colitis on the CAT scan. Antibiotics as above . Clear liquid diet for now. 6. Chronic pain. Continue her fentanyl patch, IV Tylenol p.r.n. 7. Electrolyte abnormalities, low potassium and low magnesium, will replace. 8. History of coronary artery disease. Continue Lopressor withholding parameters. Continue with statin. Holding aspirin for GI bleed. 9. Restless legs syndrome. Continue Mirapex. 10. Hypothyroidism. Continue Synthroid. 11. Mood disorder. Recently Abilify was stopped. The patient states she is no longer taking Elavil. On trazodone at bedtime. Question if started on Latuda. Needs psychiatric followup. Currently seems to be stable. 12. Deep venous thrombosis prophylaxis, sequential compression devices for now. 13. Disposition: Admit to med/surg tele. Level 1 full code. PT, OT prior to discharge. Social service to help with discharge planning. [facility]
[2019-05-27] MEDS ORDERED: fentaNYL 25 MCG/HR TDSY TD SCH ×2 (01:00→08:00)
[2019-05-27] MEDS ORDERED: fentaNYL 12 MCG/HR TDSY TD SCH (01:00)
[2019-05-27] MEDS: SODIUM CHLORIDE 0.9% 1000ML 1,000 ML IV SCH ×3 (01:06→15:30)
[2019-05-27] MEDS ORDERED: Nursing to Pharmacy Communication PRN (01:24)
[2019-05-27] MEDS: PIPERACILLIN/TAZOBACTAM 4.5 GM in DEXTROSE 5% 100 ML IV SCH ×3 (04:22→18:36)
[2019-05-27] MEDS: LEVOTHYROXINE SODIUM 75 MCG TABLET PO SCH (05:42)
--- NOTE | 2019-05-27 07:44 | Hospitalist Progress Note ---
Date of Service May 27, 2019 Assessment & Plan (1) Pneumonia: A 69-year-old female who was recently in the hospital for cyclic vomiting syndrome and also had some GI bleeding. Has plan for outpatient EGD and colonoscopy on 05/31/2019. She went to see PCP and c/o lower chest pain, pleuritic, requesting for pain medications, fever spike at home. BP was found to be in 80s so she was sent to ED for further evaluation. Patient is known to our practice for multiple admissions, chronic cyclical vomiting syndrome. Right lower chest pain/ Flank pain : CXR-mild pulmonary vascular congestion, bibasilar opacitiesatelectasis versus infectious/inflammatory pneumonitis. CT abd/pelvis-dependent airspace consolidation in the right lung base, trace pleural effusionpneumonia/possible aspiration pneumonitis. Clinically has no cough, SOB, No fever spikes at PCP office or here. WBC trending down. Doubt if it is aspiration pneumonitis as no episodes of vomiting for more than a week. -Received IV Zosyn in ER. Empicially on IV Zosyn, Doxycycline. Will continue with antibiotics for now and narrow down soon -Work up - CT abd/pelvis-suboptimal exam as no contrast, dependent airspace consolidation in right lung base with trace pleural effusions, likely pneumonia/aspiration pneumonitis. Radiographic follow-up to resolution recommended. Mild colitis in descending colon. -CTA chest ordered- pending results JERE : Baseline around 0.9 , now 1.24 -IVF --> Decrease rate to 75 cc/hours -Hold lisinopril -Monitor trend Hypertension : - Last admission, the lisinopril and hydrochlorothiazide was stopped, but the patient is still taking them. She says she was advised to take it by PCP. She does have labile BP. -Held lisinopril, hydrochlorothiazide, amlodipine. Continue with Metoprolol tartrate 25 mg PO BID. Restart amlodipine as blood pressure going up again. Monitor History of gastrointestinal bleed. The patient currently denies any ongoing gastrointestinal bleed. Aspirin is he ld from last admission. -Hemoglobin is stable at 10.8. -Plan for EGD and colonoscopy on 05/31/2019 as outpatient. Continue with this plan if stabilizes prior to admission. Hx of Cyclical vomiting -Multiple admissions for the same. -Nausea but no vomiting Mild colitis on the CAT scan -Clinically has no abdominal pain, diarrhea. -On IV Zosyn as above -Monitor Hypokalemia/Hypomagnesemia -Mg 1.7,K 3.3 on admission -Resolved -Monitor Chronic pain. -Continue her fentanyl patch, IV Tylenol p.r.n. -Avoid narcotics History of coronary artery disease. -Continue Lopressor withholding parameters. -Continue with statin. -Holding aspirin for recent GI bleed. Restless legs syndrome. -Continue Mirapex. Hypothyroidism. -Continue Synthroid. Mood disorder. Recently Abilify was stopped. The patient states she is no longer taking Elavil. On trazodone at bedtime. Question if started on Latuda. -Needs psychiatric followup. -Currently seems to be stable. Deep venous thrombosis prophylaxis, sequential compression devices for now. Full code Disposition: -PT, OT prior to discharge. -Social service to help with discharge planning. Subjective Patient came in with complaint of right flank/lower chest pain for few days. Denies any vomiting episodes. No cough, shortness of breath, chest tightness associated with that. Denies any urinary symptoms. Does have some nausea which is somewhat chronic. Denies any diarrhea. No complaint of blood in stools. Asking for food. Physical Exam Physical Exam: GENERAL- AAOX3, Emotional, Not in acute distressed NECK- Supple, no JVD LUNGS- Air entry bilaterally equal. No rales, rhonchi, crackles, wheezes heard. HEART- Regular rate and rhythm. No murmurs ABDOMEN- Soft, non tender, nondistended, bowel sounds present EXTREMITIES- Good peripheral pulses, no edema MOOD- Depressed Results & Data Vital Signs (Past 12 Hours) Vital Signs Temp Pulse Pulse Resp BP BP BP 05/27/19 07:21 36.5 C 67 20 149/78 H 05/27/19 04:38 36.6 C 62 16 147/85 H 05/26/19 23:25 36.4 C L 66 18 110/72 05/26/19 23:20 67 05/26/19 22:48 36.6 C 05/26/19 22:40 60 17 05/26/19 22:30 56 L 14 111/62 05/26/19 22:20 59 L 17 05/26/19 22:10 57 L 19 05/26/19 22:00 05/26/19 21:50 61 13 05/26/19 21:40 62 12 05/26/19 21:30 65 15 102/49 L 05/26/19 21:20 62 14 05/26/19 21:10 65 15 05/26/19 21:00 64 16 106/57 L 05/26/19 20:50 69 16 05/26/19 20:40 65 15 05/26/19 20:30 65 16 98/63 L 05/26/19 20:20 72 12 05/26/19 20:10 67 19 05/26/19 20:00 66 16 98/52 L 05/26/19 19:50 65 16 05/26/19 19:42 64 19 103/58 L Pulse Ox 05/27/19 07:21 91 05/27/19 04:38 92 05/26/19 23:25 93 05/26/19 23:20 05/26/19 22:48 05/26/19 22:40 92 05/26/19 22:30 93 05/26/19 22:20 05/26/19 22:10 05/26/19 22:00 90 05/26/19 21:50 05/26/19 21:40 05/26/19 21:30 92 05/26/19 21:20 90 05/26/19 21:10 92 05/26/19 21:00 92 05/26/19 20:50 05/26/19 20:40 05/26/19 20:30 95 05/26/19 20:20 93 05/26/19 20:10 94 05/26/19 20:00 94 05/26/19 19:50 94 05/26/19 19:42 96 (1) Pneumonia Laterality: bilateral Lung location: lower lobe of lung Pneumonia type: due to unspecified organism Qualified Code(s): J18.1 - Lobar pneumonia, unspecified organism
[2019-05-27 07:45] LABS: Basophils # (auto) 0.02 K/uL (0-0.2); Basophils % (auto) 0.2 %; Eosinophils # (auto) 0.01 K/uL (0-0.5); Eosinophils % (auto) 0.1 %; Hematocrit (blood only) 33.6 % (37-47); Hemoglobin 11.3 g/dL (12.0-16.0); Immature Granulocytes # (auto) 0.04 K/uL (0.00-0.02); Immature Granulocytes % (auto) 0.3 %; Lymphocytes # (auto) 1.08 K/uL (1.2-3.4); Lymphocytes % (auto) 8.5 %; Mean Corpuscular Hgb Conc 33.6 g/dL (32-36); Mean Corpuscular Volume 88.4 fL (80-100); Mean Platelet Volume 9.4 fL (7.4-10.4); Monocytes # (auto) 0.21 K/uL (0.11-0.59); Monocytes % (auto) 1.7 %; Neutrophils # (auto) 11.36 K/uL (1.4-6.5); Neutrophils % (auto) 89.2 %; Platelet Count 344 K/uL (130-400); RDW Coefficient of Variation 13.7 % (11.5-14.5); RDW Standard Deviation 44.9 fL (36.4-46.3); White Blood Count 12.72 K/uL (4.8-10.8)
[2019-05-27 08:15] LABS: Calcium 8.8 mg/dl (8.5-10.1); Creatinine Clr Calc Pharmacy 55.4 ml/min; Est GFR (African American) 65.6; Est GFR (Non-African American) 56.6; Magnesium 2.2 mg/dl (1.8-2.4); Potassium 3.7 mmol/L (3.5-5.1)
[2019-05-27] MEDS: PANTOprazole 40 MG TAB PO SCH ×2 (08:19→21:14)
[2019-05-27] MEDS: ATORVASTATIN 40 MG TAB PO SCH (08:20)
[2019-05-27] MEDS: AMLODIPINE BESYLATE 5 MG TAB PO SCH (08:20)
[2019-05-27] MEDS: POTASSIUM CHLORIDE 20 MEQ TABCR PO SCH ×2 (08:21→21:15)
[2019-05-27] MEDS: METOPROLOL TARTRATE 25 MG TAB PO SCH ×2 (08:21→21:14)
[2019-05-27] MEDS: [UNRECOGNIZED DRUG - REMARK] SCH ×2 (08:25→15:30)
[2019-05-27] MEDS: fentaNYL 12 MCG/HR TDSY TD SCH (08:25)
[2019-05-27] MEDS ORDERED: CEROVITE ADV FORMULA TAB PO SCH (09:00)
[2019-05-27] MEDS ORDERED: CALCIUM 600MG + VIT D 400 IU TAB PO SCH (09:00)
[2019-05-27] MEDS ORDERED: NON-FORMULARY MEDICATION (Olopatadine 1 DROPS) OP SCH (09:00)
[2019-05-27] MEDS ORDERED: MAGNESIUM OXIDE 400 MG TAB PO SCH (09:00)
[2019-05-27] MEDS: ACETAMINOPHEN 65 ML IV PRN ×2 (09:03→23:05)
[2019-05-27] MEDS: CALCIUM 600MG + VIT D 400 IU TAB PO SCH (18:38)
[2019-05-27] MEDS: MAGNESIUM OXIDE 400 MG TAB PO SCH (18:39)
[2019-05-27] MEDS: TRAZODONE HCL 100 MG TAB PO SCH (21:13)
[2019-05-27] MEDS: DOXYCYCLINE HYCLATE 100 MG CAP PO SCH (21:15)
[2019-05-27] MEDS: PRAMIPEXOLE DIHYDROCHLO 0.25 MG TAB PO SCH (21:16)
[2019-05-27] MEDS: NYSTATIN CR 15 GM TUBE EXT SCH (22:39)
[2019-05-28] MEDS: [UNRECOGNIZED DRUG - REMARK] SCH ×4 (00:09→23:24)
[2019-05-28] MEDS: PIPERACILLIN/TAZOBACTAM 4.5 GM in DEXTROSE 5% 100 ML IV SCH ×2 (01:24→10:42)
[2019-05-28] MEDS: TIZANIDINE HCL 4 MG TABLET PO PRN (03:26)
[2019-05-28] MEDS: SODIUM CHLORIDE 0.9% 1000ML 1,000 ML IV SCH (03:26)
[2019-05-28] MEDS: MAGNESIUM OXIDE 400 MG TAB PO SCH ×2 (05:50→22:18)
[2019-05-28] MEDS: CALCIUM 600MG + VIT D 400 IU TAB PO SCH ×2 (05:51→22:18)
[2019-05-28] MEDS: CEROVITE ADV FORMULA TAB PO SCH (05:52)
[2019-05-28] MEDS: LEVOTHYROXINE SODIUM 75 MCG TABLET PO SCH (05:52)
[2019-05-28 06:10] LABS: Hematocrit (blood only) 30.4 % (37-47); Hemoglobin 10.2 g/dL (12.0-16.0); Mean Corpuscular Hgb Conc 33.6 g/dL (32-36); Mean Corpuscular Volume 87.6 fL (80-100); Mean Platelet Volume 9.5 fL (7.4-10.4); Platelet Count 303 K/uL (130-400); RDW Coefficient of Variation 13.9 % (11.5-14.5); RDW Standard Deviation 44.4 fL (36.4-46.3); Red Blood Count 3.47 M/uL (4.2-5.4); White Blood Count 13.97 K/uL (4.8-10.8)
[2019-05-28 06:46] LABS: Albumin Level 2.7 gm/dl (3.4-5.0); BUN Creatinine Ratio 13.7 (10-20); Calcium 8.4 mg/dl (8.5-10.1); Creatinine Clr Calc Pharmacy 71.9 ml/min; Est GFR (Non-African American) 77.7; Potassium 3.4 mmol/L (3.5-5.1)
[2019-05-28 06:49] LABS: Albumin Globulin Ratio 0.8 (0.9-2); Bilirubin,Total 0.2 mg/dl (0.2-1); Globulin 3.3 gm/dl (2.5-4.0)
[2019-05-28] MEDS ORDERED: POTASSIUM CHLORIDE 20 MEQ TABCR PO STA (07:58)
[2019-05-28] MEDS ORDERED: [UNRECOGNIZED DRUG - REMARK] SCH (07:59)
[2019-05-28] MEDS ORDERED: fentaNYL 25 MCG/HR TDSY TD SCH (08:00)
[2019-05-28] MEDS: ATORVASTATIN 40 MG TAB PO SCH (08:26)
[2019-05-28] MEDS: PANTOprazole 40 MG TAB PO SCH ×2 (08:26→22:19)
[2019-05-28] MEDS: METOPROLOL TARTRATE 25 MG TAB PO SCH ×2 (08:26→22:17)
[2019-05-28] MEDS: DOXYCYCLINE HYCLATE 100 MG CAP PO SCH (08:28)
[2019-05-28] MEDS: POTASSIUM CHLORIDE 20 MEQ TABCR PO SCH ×2 (08:29→22:21)
[2019-05-28] MEDS ORDERED: AMLODIPINE BESYLATE 5 MG TAB PO SCH (09:00)
[2019-05-28] MEDS: NYSTATIN CR 15 GM TUBE EXT SCH ×2 (10:40→22:19)
[2019-05-28] MEDS: AMLODIPINE BESYLATE 5 MG TAB PO SCH (10:40)
--- NOTE | 2019-05-28 10:55 | Hospitalist Progress Note ---
Date of Service May 28, 2019 Assessment & Plan (1) Pneumonia: A 69-year-old female who was recently in the hospital for cyclic vomiting syndrome and also had some GI bleeding. Has plan for outpatient EGD and colonoscopy on 05/31/2019. She went to see PCP and c/o lower chest pain, pleuritic, requesting for pain medications, fever spike at home. BP was found to be in 80s so she was sent to ED for further evaluation. Patient is known to our practice for multiple admissions, chronic cyclical vomiting syndrome. Right lower chest pain/ Flank pain : Improving CXR-mild pulmonary vascular congestion, bibasilar opacitiesatelectasis versus infectious/inflammatory pneumonitis. CT abd/pelvis-dependent airspace consolidation in the right lung base, trace pleural effusionpneumonia/possible aspiration pneumonitis. Clinically has no cough, SOB, No fever spikes at PCP office or here. WBC trending down. Doubt if it is aspiration pneumonitis as no episodes of vomiting for more than a week. But improving with antibiotics. -Received IV Zosyn in ER. Empicially on IV Zosyn, Doxycycline--> Day 2. Will discontinue IV zosyn and change to Augmentin to complete course of 7 days of antibiotics. -Work up - CT abd/pelvis-suboptimal exam as no contrast, dependent airspace consolidation in right lung base with trace pleural effusions, likely pneumonia/aspiration pneumonitis. Radiographic follow-up to resolution recommended. Mild colitis in descending colon. -CTA chest ordered- pending results JERE : Resolved Baseline around 0.9 , now 0.77 -IVF --> Ok to discontinue -Restart lisinopril as Creatinine stabilized and BP going up. -Monitor trend Hypertension : - Last admission, the lisinopril and hydrochlorothiazide was stopped, but the patient is still taking them. She says she was advised to take it by PCP. She does have labile BP. -Held lisinopril, hydrochlorothiazide, amlodipine. Continue with Metoprolol tartrate 25 mg PO BID. Restarted amlodipine. Today will restart lisinopril. Continue to hold HCTZ. Monitor History of gastrointestinal bleed. The patient currently denies any ongoing gastrointestinal bleed. Aspirin is held from last admission. -Hemoglobin is stable at 10.8. -Plan for EGD and colonoscopy on 05/31/2019 as outpatient. Says she cant do the prep in 2 days. I will request GI to reschedule this. Hx of Cyclical vomiting -Multiple admissions for the same. -Nausea but no vomiting -Tolerating PO diet well. Mild colitis on the CAT scan -Clinically has no abdominal pain, diarrhea or concerns for colitis. -On IV Zosyn as above- Day 2 --> Change to Augmentin with probiotics -Monitor Hypokalemia/Hypomagnesemia -Replete -Monitor Chronic pain. -Continue her fentanyl patch, IV Tylenol p.r.n. -Avoid narcotics History of coronary artery disease. -Continue Lopressor withholding parameters. -Continue with statin. -Holding aspirin for recent GI bleed. Restless legs syndrome. -Continue Mirapex. Hypothyroidism. -Continue Synthroid. Mood disorder. Recently Abilify was stopped. The patient states she is no longer taking Elavil. On trazodone at bedtime. Question if started on Latuda. -Needs psychiatric followup. -Currently seems to be stable. Deep venous thrombosis prophylaxis, sequential compression devices for now. Full code Disposition: -PT, OT prior to discharge. -Social service to help with discharge planning. Likely discharge in 1-2 days if continues to feel better Subjective Patient is feeling much better today. Does have mild right lower chest/flank pain, improving. No nausea, vomiting. No cough, shortness of breath, leg swelling. No fever, chills. Tolerating p.o. diet well. Physical Exam Physical Exam: GENERAL- AAOX3, Emotional, Not in acute distressed NECK- Supple, no JVD LUNGS- Air entry bilaterally equal. No rales, rhonchi, crackles, wheezes heard. HEART- Regular rate and rhythm. No murmurs ABDOMEN- Soft, non tender, nondistended, bowel sounds present EXTREMITIES- Good peripheral pulses, no edema MOOD- Depressed Results & Data Vital Signs (Past 12 Hours) Vital Signs Temp Pulse Pulse Resp BP Pulse Ox 05/28/19 07:40 54 L 05/28/19 07:26 36.4 C L 56 L 16 135/80 90 05/28/19 04:58 36.4 C L 66 18 164/94 H 92 05/28/19 00:00 83 (1) Pneumonia Laterality: bilateral Lung location: lower lobe of lung Pneumonia type: due to unspecified organism Qualified Code(s): J18.1 - Lobar pneumonia, unspecified organism
[2019-05-28] MEDS: HEPARIN 100 UNIT/ML 5ML FLUSH FLUSH PRN ×2 (11:43→17:22)
[2019-05-28] MEDS: ACETAMINOPHEN 325 MG TAB PO PRN ×2 (11:43→23:51)
[2019-05-28] MEDS: SACCHAROMYCES BOULARDII 250 MG CAP PO SCH (12:33)
[2019-05-28] MEDS: LISINOPRIL 20 MG TAB PO SCH (12:33)
[2019-05-28] MEDS: hydroCHLOROthiazide 25 MG TAB PO SCH (15:09)
[2019-05-28] MEDS ORDERED: HydrALAZINE HCL 20 MG/ML VIAL IV PRN (16:16)
[2019-05-28] MEDS: AMOXICILLIN/CLAVULANATE 875 MG TAB PO SCH (17:15)
[2019-05-28] MEDS ORDERED: LORazepam 1 MG/2 ML VIAL IV STA (17:45)
[2019-05-28] MEDS: ONDANSETRON INJ 2 MG/ML 2 ML VIAL IV PRN (19:35)
[2019-05-28] MEDS: PRAMIPEXOLE DIHYDROCHLO 0.25 MG TAB PO SCH (22:20)
[2019-05-28] MEDS: TRAZODONE HCL 100 MG TAB PO SCH (22:21)
[2019-05-29] MEDS: HEPARIN 100 UNIT/ML 5ML FLUSH FLUSH PRN ×4 (00:22→18:36)
[2019-05-29] MEDS: ONDANSETRON INJ 2 MG/ML 2 ML VIAL IV PRN ×2 (01:44→18:36)
[2019-05-29] MEDS: LEVOTHYROXINE SODIUM 75 MCG TABLET PO SCH (05:24)
[2019-05-29 05:41] LABS: Hematocrit (blood only) 31.8 % (37-47); Hemoglobin 10.8 g/dL (12.0-16.0); Mean Corpuscular Volume 88.1 fL (80-100); Mean Platelet Volume 9.3 fL (7.4-10.4); Platelet Count 352 K/uL (130-400); RDW Coefficient of Variation 14.2 % (11.5-14.5); RDW Standard Deviation 45.8 fL (36.4-46.3); Red Blood Count 3.61 M/uL (4.2-5.4); White Blood Count 15.18 K/uL (4.8-10.8)
[2019-05-29 06:06] LABS: BUN Creatinine Ratio 15.7 (10-20); Calcium 8.4 mg/dl (8.5-10.1); Creatinine Clr Calc Pharmacy 85.7 ml/min; Est GFR (African American) 103.5; Est GFR (Non-African American) 89.3; Magnesium 1.5 mg/dl (1.8-2.4); Potassium 3.8 mmol/L (3.5-5.1)
[2019-05-29 06:11] LABS: Troponin I 0.018 ng/ml (0-0.045)
[2019-05-29] MEDS: CALCIUM 600MG + VIT D 400 IU TAB PO SCH ×2 (06:31→18:34)
[2019-05-29] MEDS: MAGNESIUM OXIDE 400 MG TAB PO SCH ×2 (06:31→18:34)
[2019-05-29] MEDS: CEROVITE ADV FORMULA TAB PO SCH (06:32)
[2019-05-29] MEDS: MAGNESIUM SULFATE / D5W 1 GM/100 ML BAG IV SCH ×3 (09:09→11:18)
[2019-05-29] MEDS: [UNRECOGNIZED DRUG - REMARK] SCH ×2 (09:10→16:27)
[2019-05-29] MEDS: METOPROLOL TARTRATE 25 MG TAB PO SCH ×2 (09:10→21:39)
[2019-05-29] MEDS: TIZANIDINE HCL 4 MG TABLET PO PRN (09:10)
[2019-05-29] MEDS: hydroCHLOROthiazide 25 MG TAB PO SCH (09:11)
[2019-05-29] MEDS: AMOXICILLIN/CLAVULANATE 875 MG TAB PO SCH ×2 (09:11→16:28)
[2019-05-29] MEDS: POTASSIUM CHLORIDE 20 MEQ TABCR PO SCH ×2 (09:11→21:41)
[2019-05-29] MEDS: SACCHAROMYCES BOULARDII 250 MG CAP PO SCH (09:12)
[2019-05-29] MEDS: PANTOprazole 40 MG TAB PO SCH ×2 (09:12→21:38)
[2019-05-29] MEDS: AMLODIPINE BESYLATE 5 MG TAB PO SCH (09:12)
[2019-05-29] MEDS: ATORVASTATIN 40 MG TAB PO SCH (09:12)
[2019-05-29] MEDS: LISINOPRIL 20 MG TAB PO SCH (09:12)
[2019-05-29] MEDS: NYSTATIN CR 15 GM TUBE EXT SCH ×2 (09:14→21:41)
--- NOTE | 2019-05-29 11:35 | Hospitalist Progress Note ---
Date of Service May 29, 2019 Assessment & Plan (1) Pneumonia: A 69-year-old female who was recently in the hospital for cyclic vomiting syndrome and also had some GI bleeding. Has plan for outpatient EGD and colonoscopy on 05/31/2019. She went to see PCP and c/o lower chest pain, pleuritic, requesting for pain medications, fever spike at home. BP was found to be in 80s so she was sent to ED for further evaluation. Patient is known to our practice for multiple admissions, chronic cyclical vomiting syndrome. Right lower chest pain/ Flank pain : Improved CXR-mild pulmonary vascular congestion, bibasilar opacitiesatelectasis versus infectious/inflammatory pneumonitis. CT abd/pelvis-dependent airspace consolidation in the right lung base, trace pleural effusionpneumonia/possible aspiration pneumonitis. Clinically has no cough, SOB, No fever spikes at PCP office or here. Doubt if it is aspiration pneumonitis as no episodes of vomiting for more than a week. But improving with antibiotics. -Received IV Zosyn in ER. S/P IV Zosyn, Doxycycline--> Day 2. Discontinued IV zosyn and change to Augmentin to complete course of 7 days of antibiotics on 05/28/19 -Work up - CT abd/pelvis-suboptimal exam as no contrast, dependent airspace consolidation in right lung base with trace pleural effusions, likely pneumonia/aspiration pneumonitis. Radiographic follow-up to resolution recommended. Mild colitis in descending colon. -CTA chest JERE : Resolved Baseline around 0.9 , now 0.77 -S/P IVF -Restarted lisinopril as Creatinine stabilized and BP going up. -Monitor trend Hypertension : - Last admission, the lisinopril and hydrochlorothiazide was stopped, but the patient is still taking them. She says she was advised to take it by PCP. She does have labile BP. -Held lisinopril, hydrochlorothiazide, amlodipine. Continue with Metoprolol tartrate 25 mg PO BID. Restarted amlodipine, lisinopril, HCTZ again as BP up. Monitor outpatient History of gastrointestinal bleed. The patient currently denies any ongoing gastrointestinal bleed. Aspirin is held from last admission. -Hemoglobin is stable at 10.8. -Plan for EGD and colonoscopy on 05/31/2019 as outpatient. Says she cant do the prep in 2 days and already requested them to cancel it Hx of Cyclical vomiting -Multiple admissions for the same. -On and off Nausea but no vomiting -Tolerating PO diet well. Mild colitis on the CAT scan -Clinically has no abdominal pain, diarrhea or concerns for colitis. -S/P IV Zosyn as above- Day 2 --> Changed to Augmentin with probiotics -Monitor Hypokalemia/Hypomagnesemia -Resolved Chronic pain. -Continue her fentanyl patch, IV Tylenol p.r.n. -Avoid narcotics History of coronary artery disease. -Continue Lopressor withholding parameters. -Continue with statin. -Holding aspirin for recent GI bleed--> Will restart as no episodes since last discharge and has CAD. Restless legs syndrome. -Continue Mirapex. Hypothyroidism. -Continue Synthroid. Mood disorder. Recently Abilify was stopped. The patient states she is no longer taking Elavil. On trazodone at bedtime. Question if started on Latuda. -Needs psychiatric followup. -Currently seems to be stable. Deep venous thrombosis prophylaxis, sequential compression devices for now. Full code Disposition: -PT, OT- cleared for discharge -Social service to help with discharge planning Subjective Patient had an episode of chest pain yesterday. EKG did not show acute changes, troponin x2-. Today she feels much better. No nausea, vomiting. No cough, shortness of breath, leg swelling. No fever, chills. Tolerating p.o. diet well. Wants to be discharged home as her dog housekeeper caregiver is leaving tomorrow. Physical Exam Physical Exam: GENERAL- AAOX3, Emotional, Not in acute distressed NECK- Supple, no JVD LUNGS- Air entry bilaterally equal. No rales, rhonchi, crackles, wheezes heard. HEART- Regular rate and rhythm. No murmurs ABDOMEN- Soft, non tender, nondistended, bowel sounds present EXTREMITIES- Good peripheral pulses, no edema MOOD- Depressed Results & Data Vital Signs (Past 12 Hours) Vital Signs Temp Pulse Pulse Resp BP Pulse Ox 05/29/19 07:19 36.5 C 61 18 129/77 94 05/29/19 03:13 37.0 C 67 18 116/67 93 05/29/19 00:52 103 H (1) Pneumonia Laterality: bilateral Lung location: lower lobe of lung Pneumonia type: due to unspecified organism Qualified Code(s): J18.1 - Lobar pneumonia, unspecified organism
[2019-05-29] MEDS ORDERED: LORazepam 0.5 MG TAB PO STA (21:14)
[2019-05-29] MEDS: TRAZODONE HCL 100 MG TAB PO SCH (21:38)
[2019-05-29] MEDS: PRAMIPEXOLE DIHYDROCHLO 0.25 MG TAB PO SCH (21:39)
[2019-05-30] MEDS: [UNRECOGNIZED DRUG - REMARK] SCH ×2 (00:47→08:31)
[2019-05-30] MEDS: HEPARIN 100 UNIT/ML 5ML FLUSH FLUSH PRN ×2 (05:34→11:55)
[2019-05-30 06:06] LABS: Hematocrit (blood only) 35.1 % (37-47); Hemoglobin 11.7 g/dL (12.0-16.0); Mean Corpuscular Hgb Conc 33.3 g/dL (32-36); Mean Corpuscular Volume 88.2 fL (80-100); Mean Platelet Volume 9.5 fL (7.4-10.4); Platelet Count 364 K/uL (130-400); RDW Standard Deviation 45.4 fL (36.4-46.3); Red Blood Count 3.98 M/uL (4.2-5.4); White Blood Count 9.12 K/uL (4.8-10.8)
[2019-05-30] MEDS: CALCIUM 600MG + VIT D 400 IU TAB PO SCH (06:10)
[2019-05-30] MEDS: LEVOTHYROXINE SODIUM 75 MCG TABLET PO SCH (06:10)
[2019-05-30] MEDS: CEROVITE ADV FORMULA TAB PO SCH (06:11)
[2019-05-30] MEDS: MAGNESIUM OXIDE 400 MG TAB PO SCH (06:11)
[2019-05-30 06:34] LABS: Calcium 8.8 mg/dl (8.5-10.1); Creatinine Clr Calc Pharmacy 74.3 ml/min; Est GFR (African American) 92.9; Est GFR (Non-African American) 80.2; Magnesium 2.2 mg/dl (1.8-2.4); Potassium 4.2 mmol/L (3.5-5.1)
[2019-05-30 07:25] VITALS: PULSE 72; O2SAT 91
[2019-05-30] MEDS: AMOXICILLIN/CLAVULANATE 875 MG TAB PO SCH (08:10)
[2019-05-30] MEDS: PANTOprazole 40 MG TAB PO SCH (08:10)
[2019-05-30] MEDS: ATORVASTATIN 40 MG TAB PO SCH (08:10)
[2019-05-30] MEDS: SACCHAROMYCES BOULARDII 250 MG CAP PO SCH (08:10)
[2019-05-30] MEDS: LISINOPRIL 20 MG TAB PO SCH (08:11)
[2019-05-30] MEDS: hydroCHLOROthiazide 25 MG TAB PO SCH (08:11)
[2019-05-30] MEDS: AMLODIPINE BESYLATE 5 MG TAB PO SCH (08:11)
[2019-05-30] MEDS: METOPROLOL TARTRATE 25 MG TAB PO SCH (08:11)
[2019-05-30] MEDS: POTASSIUM CHLORIDE 20 MEQ TABCR PO SCH (08:11)
[2019-05-30] MEDS: fentaNYL 12 MCG/HR TDSY TD SCH (08:32)
--- NOTE | 2019-05-30 10:08 | Hospitalist Progress Note ---
Date of Service May 30, 2019 Assessment & Plan (1) Pneumonia: A 69-year-old female who was recently in the hospital for cyclic vomiting syndrome and also had some GI bleeding. Has plan for outpatient EGD and colonoscopy on 05/31/2019. She went to see PCP and c/o lower chest pain, pleuri tic, requesting for pain medications, fever spike at home. BP was found to be in 80s so she was sent to ED for further evaluation. Patient is known to our practice for multiple admissions, chronic cyclical vomiting syndrome. Right lower chest pain/ Flank pain : Improved CXR- Mild pulmonary vascular congestion, bibasilar opacitiesatelectasis versus infectious/inflammatory pneumonitis. CT abd/pelvis-dependent airspace consolidation in the right lung base, trace pleural effusionpneumonia/possible aspiration pneumonitis. Clinically has no cough, SOB, No fever spikes at PCP office or here. Doubt if it is aspiration pneumonitis as no episodes of vomiting for more than a week. But improving with antibiotics. -Received IV Zosyn in ER. S/P IV Zosyn, Doxycycline--> Day 2. Discontinued IV zosyn and changed to Augmentin to complete course of 7 days of antibiotics on 05/28/19 - Day 3/7 -Work up - CT abd/pelvis-suboptimal exam as no contrast, dependent airspace consolidation in right lung base with trace pleural effusions, likely pneumonia/aspiration pneumonitis. Radiographic follow-up to resolution recommended. Mild colitis in descending colon. -CTA chest JERE : Resolved Baseline around 0.9 , now 0.77 -S/P IVF -Restarted lisinopril as Creatinine stabilized and BP going up. Hypertension : - Last admission, the lisinopril and hydrochlorothiazide was stopped, but the patient is still taking them. She says she was advised to take it by PCP. She does have labile BP. BP was low on admission. -Held lisinopril, hydrochlorothiazide, amlodipine initially. Continue with Metoprolol tartrate 25 mg PO BID. Restarted amlodipine, lisinopril, HCTZ again as BP went up. Monitor outpatient History of gastrointestinal bleed. The patient currently denies any ongoing gastrointestinal bleed. Aspirin is held from last admission. I had held ASA during last admission due to episodes of bleeding and EGD/ Colonoscopy scheduled for 05/31/19. But she canceled it herself. Not re scheduled it yet. -Hemoglobin is stable, No more episodes since last discharge. As has CAD with stent, restarted Aspirin. Instructed to re schedule EGD/Colonoscopy JACK and if has bleeding, call PCP or come to ER. Hx of Cyclical vomiting -Multiple admissions for the same. -On and off Nausea but no vomiting -Tolerating PO diet well. Mild colitis on the CAT scan -Clinically has no abdominal pain, diarrhea or concerns for colitis. -S/P IV Zosyn as above- Day 2 --> Changed to Augmentin with probiotics -Monitor Hypokalemia/Hypomagnesemia -Resolved Chronic pain. -Continue her fentanyl patch, IV Tylenol p.r.n. -Avoid narcotics History of coronary artery disease. -Continue Lopressor withholding parameters. -Continue with statin. -Restarted Aspirin as above Restless legs syndrome. -Continue Mirapex. Hypothyroidism. -Continue Synthroid. Mood disorder. Recently Abilify was stopped. The patient states she is no longer taking Elavil. On trazodone at bedtime. Question if started on Latuda. -Needs psychiatric followup. -Currently seems to be stable. Deep venous thrombosis prophylaxis, sequential compression devices for now. Full code Disposition: -PT, OT- cleared for discharge -Patient is very eager to be discharged today. -OK to discharge home today. Subjective Patient is feeling much better today. Patient is eager to be discharged home. No nausea, vomiting. No cough, shortness of breath, leg swelling. No fever, chills. No melena or fresh red blood in stool Tolerating p.o. diet well. Physical Exam Physical Exam: GENERAL- AAOX3, not in acute distress NECK- Supple, no JVD LUNGS- Air entry bilaterally equal. No rales, rhonchi, crackles, wheezes heard. HEART- Regular rate and rhythm. No murmurs ABDOMEN- Soft, non tender, nondistended, bowel sounds present EXTREMITIES- Good peripheral pulses, no edema MOOD- Depressed Results & Data Vital Signs (Past 12 Hours) Vital Signs Temp Pulse Pulse Resp BP BP Pulse Ox 05/30/19 07:24 36.7 C 72 18 145/85 H 91 05/30/19 06:08 66 144/86 H 05/30/19 04:07 36.7 C 81 18 168/88 H 92 05/29/19 23:12 69 05/29/19 22:26 36.7 C 71 18 121/79 92 (1) Pneumonia Laterality: bilateral Lung location: lower lobe of lung Pneumonia type: due to unspecified organism Qualified Code(s): J18.1 - Lobar pneumonia, unspecified organism
--- NOTE | 2019-05-30 10:14 | Discharge Summary ---
Date of Service May 30, 2019 Admission HPI Per Admitting Provider HISTORY OF PRESENT ILLNESS: A 69-year-old female with past medical history significant for cyclic vomiting syndrome, CAD status post stent, hypertension, hypothyroidism, chronic pain syndrome, restless legs syndrome, hypokalemia, mood disorder, who was recently in the hospital with intractable nausea and vomiting that got improved. Also during hospitalization she has some blood in the stool. Her aspirin was held and she was supposed to follow with GI as outpatient on 05/31/2019 for outpatient EGD and colonoscopy. Also at discharge her lisinopril and hydrochlorothiazide was held for hypotension as her blood pressure was dropping at that time. But the patient says after going home, her PCP advised to take those medications and she says since discharge she was not feeling well, but last 1 or 2 days she was feeling dizzy, nauseous and having pain in the right lower chest, radiating to her right upper abdomen, so went to family doctor where she was found to be hypotensive and advised to come to the ER. In the ER, when she came in, her systolic blood pressure was in the 80s, improved with fluids. White count was 15,000. Magnesium was 1.7, potassium was 3.3. Chest x-ray showed bibasilar airspace opacities, possible pneumonitis. CT of the abdomen and pelvis showed consolidation in the right lung base, possible aspiration pneumonitis and question of mild colitis of the descending colon. The patient received IV Zosyn in the ER. Complaining of pain in the lower chest when taking deep breaths, requests for pain medications, and also temp spike at home and the PCP's office. Denies any cough. Denies shortness of breath. Nauseous but no vomiting. Normal bowel and bladder movements. No burning micturition, no hematuria. Denies any black stools or blood in the stools. Appetite is okay, sleeping okay. Ambulating okay. Lives alone. Denies any headache, no blurred vision, no earache, no runny nose, no sore throat, no difficulty swallowing. No rash. Currently resting comfortably and hemodynamically stable. Principal Diagnosis 1. Possible pneumonia 2. Mild acute kidney injury Secondary diagnoses on discharge 1. Hypertension 2. History of GI bleed 4. History of cyclical vomiting 5. History of CAD with stent 6. Restless leg syndrome 7. Hypothyroidism 8. Mood disorder 9. Chronic pain next para Discharge Exam GENERAL- AAOX3, not in acute distress NECK- Supple, no JVD LUNGS- Air entry bilaterally equal. No rales, rhonchi, crackles, wheezes heard. HEART- Regular rate and rhythm. No murmurs ABDOMEN- Soft, non tender, nondistended, bowel sounds present EXTREMITIES- Good peripheral pulses, no edema MOOD- Depressed Discharge Data Allergies Allergy/AdvReac Type Severity Reaction Status Date / Time latex Allergy Intermediate Rash Verified 05/26/19 18:58 nickel Allergy Intermediate SEVERE Verified 05/26/19 18:58 DERMATITIS NSAIDS (Non-Steroidal Allergy Intermediate HX OF Verified 05/26/19 18:58 Anti-Inflamma BLEEDING ULCERS-TO AVOID aspirin AdvReac Intermediate bleeding Verified 05/26/19 18:58 ulcers Consultations 05/26/19 19:58 ED Decision to Admit Stat Ordered Studies 05/26/19 19:10 CT abd pelvis wo con Stat 05/26/19 21:54 CT angio chest PE protocol Urgent Hospital Course (1) Pneumonia: A 69-year-old female who was recently in the hospital for cyclic vomiting syndrome and also had some GI bleeding. Has plan for outpatient EGD and colonoscopy on 05/31/2019. She went to see PCP and c/o lower chest pain, pleuritic, requesting for pain medications, fever spike at home. BP was found to be in 80s so she was sent to ED for further evaluation. Patient is known to our practice for multiple admissions, chronic cyclical vomiting syndrome. Right lower chest pain/ Flank pain : Resolved Possible Pneumonia CXR- Mild pulmonary vascular congestion, bibasilar opacitiesatelectasis versus infectious/inflammatory pneumonitis. CT abd/pelvis-dependent airspace consolidation in the right lung base, trace pleural effusionpneumonia/possible aspiration pneumonitis. Clinically has no cough, SOB, No fever spikes at PCP office or here. Doubt if it is aspiration pneumonitis as no episodes of vomiting for more than a week. But improving with antibiotics. -Received IV Zosyn in ER. S/P IV Zosyn, Doxycycline--> Day 2. Discontinued IV zosyn and changed to Augmentin to complete course of 7 days of antibiotics on 05/28/19 - Day 3/7 -Work up - CT abd/pelvis-suboptimal exam as no contrast, dependent airspace consolidation in right lung base with trace pleural effusions, likely pneumonia/aspiration pneumonitis. Radiographic follow-up to resolution recommended. Mild colitis in descending colon. -CTA chest JERE : Resolved Baseline around 0.9 , now 0.77 -S/P IVF -Restarted lisinopril as Creatinine stabilized and BP going up. Hypertension : - Last admission, the lisinopril and hydrochlorothiazide was stopped, but the patient is still taking them. She says she was advised to take it by PCP. She does have labile BP. BP was low on admission. -Held lisinopril, hydrochlorothiazide, amlodipine initially. Continue with Metoprolol tartrate 25 mg PO BID. Restarted amlodipine, lisinopril, HCTZ again as BP went up. Monitor outpatient History of gastrointestinal bleed. The patient currently denies any ongoing gastrointestinal bleed. Aspirin is held from last admission. I had held ASA during last admission due to episodes of bleeding and EGD/ Colonoscopy scheduled for 05/31/19. But she canceled it herself. Not re scheduled it yet. -Hemoglobin is stable, No more episodes since last discharge. As has CAD with stent, restarted Aspirin. Instructed to re schedule EGD/Colonoscopy JACK and if has bleeding, call PCP or come to ER. Hx of Cyclical vomiting -Multiple admissions for the same. -On and off Nausea but no vomiting -Tolerating PO diet well. Mild colitis on the CAT scan -Clinically has no abdominal pain, diarrhea or concerns for colitis. -S/P IV Zosyn as above- Day 2 --> Changed to Augmentin with probiotics -Monitor Hypokalemia/Hypomagnesemia -Resolved Chronic pain. -Continue her fentanyl patch, IV Tylenol p.r.n. -Avoid narcotics History of coronary artery disease. -Continue Lopressor withholding parameters. -Continue with statin. -Restarted Aspirin as above Restless legs syndrome. -Continue Mirapex. Hypothyroidism. -Continue Synthroid. Mood disorder. Recently Abilify was stopped. The patient states she is no longer taking Elavil. On trazodone at bedtime. Question if started on Latuda. -Needs psychiatric followup. -Currently seems to be stable. Deep venous thrombosis prophylaxis, sequential compression devices for now. Full code Disposition: -PT, OT- cleared for discharge -Patient is very eager to be discharged today. -OK to discharge home today. Total Time Total Time Spent Total Time Spent (In Minutes): 38 minutes Discharge Plan Discharge Items Patient Disposition: Home - Self-Care Reason For Visit: ILLNESS Discharge Diagnosis: 1. Possible pneumonia 2. Mild acute kidney injury Discharge Goals: Decrease discomfort Activity: Resume your previous activity Non-emergency contact: Primary Care Provider Call non-emergency contact if: your symptoms worsen Follow-up/Referrals: Charanjit Spann MD [Primary Care Provider] - 06/03/19 12:30 pm Diet: Low Sodium (2gm) Addtl Provider Instructions: You were admitted to the hospital for right lower chest pain/ Pain, possible pneumonia. You were given IV antibiotics, oral antibiotics, IV fluids. Medication changes 1. Continue with lisinopril, hydrochlorothiazide, amlodipine, metoprolol for yo ur blood pressure as prior to admission. 2. Restart aspirin 81 mg daily. 3. New medicationAugmentin p.o. twice a day for 4 more days to complete course of 7 days of antibiotics for possible pneumonia. 4. Recommend outpatient probiotics to be taken along with Augmentin Monitor 1. Blood pressure especially when you have episodes of vomiting. 2. Monitor for any fresh red blood in stool or dark tarry stools. If significant bleeding, call middle school director or PCP or come to ED. Please call gastroenterology to reschedule your EGD/colonoscopy since one is scheduled on 05/31/2019 was canceled. Prescriptions: New amoxicillin-pot clavulanate 875-125 mg Tablet 1 tab PO BIDM 4 Days Qty: 8 RF: 0 Florastor 250 mg Capsule 250 mg PO DAILY 30 Days Qty: 30 RF: 0 Continued nitroglycerin [Nitrostat] 0.3 mg Tablet, Sublingual 0.3 mg sublingual UD RF: 0 aspirin [Aspir-81] 81 mg Tablet,Delayed Release (Dr/Ec) 81 mg PO QAM RF: 0 magnesium oxide 400 mg (241.3 mg magnesium) Tablet 400 mg PO BID RF: 0 lisinopril 5 mg Tablet 5 mg PO QAM RF: 0 hydrochlorothiazide 25 mg Tablet 25 mg PO QAM RF: 0 nystatin 100,000 unit/gram Powder 1 applic TOPICAL TID PRN (Reason: BREAKOUTS) RF: 0 Calcium 600 + D(3) 600 mg calcium- 200 unit Capsule 1 cap PO BID RF: 0 olopatadine 0.2 % Drops 1 drp OPHTHALMIC (EYE) QAM RF: 0 epinephrine 0.3 mg/0.3 mL Syringe 0.3 mg IM Q3H PRN (Reason: Allergic Reaction) RF: 0 Ocuvite Adult 50 Plus 250-5-1 mg Capsule 1 cap PO QAM RF: 0 atorvastatin [Lipitor] 40 mg Tablet 40 mg PO QAM RF: 0 amlodipine [Norvasc] 5 mg Tablet 5 mg PO QAM RF: 0 levothyroxine 75 mcg Tablet 75 mcg PO QAM RF: 0 buspirone 10 mg Tablet 10 mg PO TID RF: 0 metoprolol tartrate 25 mg Tablet 25 mg PO BID RF: 0 tizanidine [Zanaflex] 4 mg Capsule 4 mg PO BID PRN (Reason: Muscle Spasm) RF: 0 hydroxyzine HCl 50 mg Tablet 75 mg PO HS RF: 0 tramadol [Ultram] 50 mg Tablet 50 mg PO Q8 PRN (Reason: severe pain) RF: 0 pramipexole [Mirapex] 0.125 mg Tablet 0.125 mg PO HS RF: 0 potassium chloride [Klor-Con M20] 20 mEq tablet,ER particles/crystals 20 meq PO BID RF: 0 prochlorperazine maleate 5 mg tablet 10 mg PO BID PRN (Reason: Nausea) RF: 0 trazodone 100 mg tablet 200 mg PO HS RF: 0 polyethylene glycol 3350 17 gram Powder In Packet 17 g PO DAILY PRN (Reason: Constipation) RF: 0 ondansetron HCl [Zofran] 8 mg Tablet 8 mg PO Q6H PRN (Reason: Nausea) RF: 0 promethazine 25 mg Tablet 25 mg PO Q6H PRN (Reason: Nausea) RF: 0 pantoprazole 40 mg Tablet,Delayed Release (Dr/Ec) 40 mg PO BID 30 Days Qty: 60 RF: 0 fentanyl [Duragesic] 25 mcg/hr patch 72 hour 1 patch topical [id number] RF: 0 fentanyl [Duragesic] 12 mcg/hr patch 72 hour 1 patch topical [id number] RF: 0 Combivent Respimat 20-100 mcg/actuation Mist 1 puff INHALATION QID PRN (Reason: Shortness Of Breath Or Wheezing) RF: 0 Stand-Alone Forms: My [facility] Discharge Orders: Discharge Order (Routine); Ordered 05/30/19 Ordered By: Ruma Ramsey Admission Data Admit Date/Time: 05/26/19 21:51 Attending Provider: Ruma Ramsey Admit Provider: Reyes Miller Primary Care Provider: Charanjit Spann Other Providers: Reyes Miller Service: Telemetry Medical
[2019-05-30] MEDS: NYSTATIN CR 15 GM TUBE EXT SCH (11:11)
[2019-05-30 11:24] VITALS: BP 146/91; TEMP 97.9
== END 2019-05-30 12:45 | disposition home or self-care (01) | DRG 194 ==
LOC: ED 17:05 → 2N 21:51

== ENCOUNTER 2019-06-18 14:55 | Inpatient (IN) ==
[2019-06-18] MEDS ORDERED: SODIUM CHLORIDE 0.9% 1000ML 1,000 ML IV SCH (15:30)
[2019-06-18 15:46] LABS: Basophils # (auto) 0.05 K/uL (0-0.2); Basophils % (auto) 0.2 %; Eosinophils # (auto) 0.54 K/uL (0-0.5); Eosinophils % (auto) 2.2 %; Hematocrit (blood only) 37.9 % (37-47); Hemoglobin 12.6 g/dL (12.0-16.0); Immature Granulocytes # (auto) 0.06 K/uL (0.00-0.02); Immature Granulocytes % (auto) 0.2 %; Lymphocytes # (auto) 3.89 K/uL (1.2-3.4); Lymphocytes % (auto) 16.1 %; Mean Corpuscular Hemoglobin 29.4 pg (25-34); Mean Corpuscular Hgb Conc 33.2 g/dL (32-36); Mean Corpuscular Volume 88.3 fL (80-100); Mean Platelet Volume 9.4 fL (7.4-10.4); Monocytes # (auto) 1.77 K/uL (0.11-0.59); Monocytes % (auto) 7.3 %; Platelet Count 302 K/uL (130-400); RDW Coefficient of Variation 14.9 % (11.5-14.5); RDW Standard Deviation 48.1 fL (36.4-46.3); Red Blood Count 4.29 M/uL (4.2-5.4); White Blood Count 24.11 K/uL (4.8-10.8)
[2019-06-18 15:58] LABS: INR 1.1 (0.9-1.1); Partial Thromboplastin Ratio 1.2; Partial Thromboplastin Time 31.3 Seconds (21.0-31.0); Prothrombin Time 11.1 Seconds (9.0-12.0)
[2019-06-18 16:03] LABS: Alanine Aminotransferase 16 U/L (12-78); Albumin Level 3.7 gm/dl (3.4-5.0); Aspartate Aminotransferase 11 U/L (15-37); BUN Creatinine Ratio 10.6 (10-20); Blood Urea Nitrogen 22 mg/dl (7-18); Calcium 8.9 mg/dl (8.5-10.1); Carbon Dioxide 26 mmol/L (21-32); Chloride 102 mmol/L (98-107); Creatinine Clr Calc Pharmacy 27.9 ml/min; Est GFR (African American) 27.7; Est GFR (Non-African American) 23.9; Glucose 119 mg/dl (70-99); Potassium 3.5 mmol/L (3.5-5.1); Sodium 135 mmol/L (136-145)
[2019-06-18 16:06] LABS: Alkaline Phosphatase 95 U/L (45-117); Globulin 3.6 gm/dl (2.5-4.0); Total Protein 7.3 gm/dl (6.4-8.2)
--- NOTE | 2019-06-18 16:15 | XRay Report ---
XR chest 1V portable CLINICAL HISTORY: 69 years-old Female presenting with Sepsis, weakness, low blood pressure. TECHNIQUE: Portable upright AP view of the chest was obtained. COMPARISON: 05/26/[address] from FINDINGS: Breakage of median sternotomy wires noted. Curvilinear radiodensity projecting over the right heart i s of uncertain etiology but unchanged from prior exam. Left subclavian Mediport terminates at the sup erior cavoatrial junction. Atherosclerosis of the aortic arch. Cardiac silhouette enlarged. Bandlike opacity at the right lung base. No new focal opacity. No large effusion or pneumothorax. Scoliotic cu rvature of the thoracic spine. IMPRESSION: 1. Cardiomegaly. 2. Minimal right basilar atelectasis slightly decreased from prior. Electronically signed by: To Watters M.D. 06/18/2019 4:14 PM
[2019-06-18] MEDS ORDERED: SODIUM CHLORIDE 0.9% 1000ML 1,000 ML IV ONE (16:30)
[2019-06-18] MEDS ORDERED: PIPERACILL/TAZOBAC CONSULT ACTIVE PRN (16:32)
[2019-06-18] MEDS ORDERED: PIPERACILLIN/TAZOBACTAM 4.5 GM/120 ML BAG IV ONE (16:32)
[2019-06-18] MEDS ORDERED: VANCOMYCIN HCL 2,250 MG in SODIUM CHLORIDE 0.9% 500 ML IV ONE (16:33)
[2019-06-18] MEDS ORDERED: VANCOMYCIN CONSULT ACTIVE PRN (16:33)
[2019-06-18] MEDS ORDERED: LEVOFLOXACIN/D5W 750 MG/150 ML BAG IV SCH (16:45)
[2019-06-18] MEDS ORDERED: ACETAMINOPHEN 325 MG TAB PO STA (16:47)
[2019-06-18 16:56] LABS: Troponin I < 0.015 ng/ml (0-0.045)
--- NOTE | 2019-06-18 18:19 | History & Physical Report ---
Date of Service June 18, 2019 Assessment & Plan (1) Sepsis: (2) Pneumonia: This is a 69yo F with a PMH of CAD (s/p stent), HTN, hypothyroidism, chronic pain syndrome, cyclical vomiting syndrome and recent aspiration PNA with presents with fever and weakness for the past 3 days. -Meets sepsis criteria with fever this morning at 102.8, BP of 66/51 and leukocytosis of 24 -BP improved after 2 L IV fluids. Lactate and procalcitonin wnl -Recently admitted with aspiration PNA, treated with zosyn and then completed PO courses of doxy, then clinda -CXR with minimal right basilar atelectasis slightly decreased from prior. Ordered CT chest without contrast -Blood cultures pending (from both port and peripheral sites) -Continue empiric vanc and zosyn -IV fluid resuscitation (3) Acute respiratory failure with hypoxia: Hypoxic at 87% initially, now 94% on 4 L NC (does not require home O2) -In setting of pneumonia -Wean O2 as tolerated (4) Acute kidney injury: Creatinine elevated at 2.04 (baseline ~0.7-0.8) -In setting of poor PO intake, lisinopril, hctz -Hold HCTZ, lisinopril -Daily BMP (5) Hypertension: Continue amlodipine and Lopressor with hold parameters -Holding HCTZ, lisinopril in acute kidney injury (6) CAD (coronary artery disease): H/o stent in 2017 -Endorses chest discomfort upon arrival that since resolved -EKG with ? inferior lead changes, initial troponin negative -Continue trending troponin -Continue aspirin, statin, lopressor with hold parameters (7) Hypothyroidism: Continue levothyroxine (8) Mood disorder: Continue Buspar, trazodone HS (9) Restless leg syndrome: Continue Mirapex DVT Ppx: SCDs for now with h/o rectal bleed Code status: FULL PCP: Maria Ines Dispo: OBSERVATION as readmit. May need to be changed to in-patient status. Plan to return home once medically stable. Patient seen in collaboration with Dr. Miller. Please see addendum. History of Present Illness Chief Complaint: Fever, cough, generalized weakness Primary Care Provider: Charanjit Spann MD This is a 69yo F with a PMH of CAD (s/p stent), HTN, hypothyroidism, chronic pain syndrome, cyclical vomiting syndrome and recent aspiration PNA with presents with fever and weakness for the past 3 days. Patient was recently admitted from May 26- for possible aspiration pneumonia and acute kidney injury. In April, patient was admitted for cyclic vomiting syndrome and potentially aspirated at that point or after. Was treated with Zosyn and doxy and discharged on 7-day course of doxy. Followed up with PCP, who gave an additional 7-day course of clindamycin. Patient was feeling well until approximately 3 days ago, when she noted that her blood pressure was low, devel oped fever (T-max of 102.8 this morning) as well as generalized weakness. Had some chest tightness and shortness of breath this morning prior to arrival that of since resolved. Denies any sputum production or wheezing. Minimal nausea but no vomiting. No dysuria, diarrhea or constipation. Initially presented with hypotension with BP 66/51 and hypoxia at 87% on room air. Does not require home O2. Afebrile. Was given 2 L of IV fluid resuscitation with improved BP to 92/50. Also with leukocytosis of 24 K but lactic and procalcitonin levels within normal limits. Creatinine elevated at 2.04. Has been told recently to discontinue lisinopril and hydrochlorothiazide due to worsening kidney function, but patient recently resumed due to labile hypertension and reported home BP with systolic BP >200. Has noted a low BP for the past few days with associated lightheadedness. CXR with cardiomegaly and minimal right basilar atelectasis slightly decreased from prior. UA is pending. Allergies Allergy/AdvReac Type Severity Reaction Status Date / Time latex Allergy Intermediate Rash Verified 06/18/19 16:31 nickel Allergy Intermediate SEVERE Verified 06/18/19 16:31 DERMATITIS NSAIDS (Non-Steroidal Allergy Intermediate HX OF Verified 06/18/19 16:31 Anti-Inflamma BLEEDING ULCERS-TO AVOID aspirin AdvReac Intermediate bleeding Verified 06/18/19 16:31 ulcers Home Medications Home Medications Medication Instructions Recorded Confirmed Type amlodipine [Norvasc] 5 mg PO QAM 12/13/18 06/18/19 History atorvastatin [Lipitor] 40 mg PO QAM 12/13/18 06/18/19 History buspirone 10 mg PO TID 12/13/18 06/18/19 History hydroxyzine HCl 75 mg PO HS 12/13/18 06/18/19 History levothyroxine 75 mcg PO QAM 12/13/18 06/18/19 History metoprolol tartrate 25 mg PO BID 12/13/18 06/18/19 History tizanidine [Zanaflex] 4 mg PO BID PRN 12/13/18 06/18/19 History pramipexole [Mirapex] 0.125 mg PO HS 01/25/19 06/18/19 History tramadol [Ultram] 50 mg PO Q8 PRN 01/25/19 06/18/19 History potassium chloride [Klor-Con M20] 20 meq PO BID 03/30/19 06/18/19 History ondansetron HCl [Zofran] 8 mg PO Q6H PRN 05/12/19 06/18/19 History polyethylene glycol 3350 17 g PO DAILY PRN 05/12/19 06/18/19 History prochlorperazine maleate 10 mg PO BID PRN 05/12/19 06/18/19 History promethazine 25 mg PO Q6H PRN 05/12/19 06/18/19 History trazodone 200 mg PO HS 05/12/19 06/18/19 History Calcium 600 + D(3) 1 cap PO BID 05/23/19 06/18/19 History Ocuvite Adult 50 Plus 1 cap PO QAM 05/23/19 06/18/19 History aspirin [Aspir-81] 81 mg PO QAM 05/23/19 06/18/19 History epinephrine 0.3 mg IM Q3H PRN 05/23/19 06/18/19 History hydrochlorothiazide 25 mg PO QAM 05/23/19 06/18/19 History lisinopril 5 mg PO QAM 05/23/19 06/18/19 History magnesium oxide 400 mg PO BID 05/23/19 06/18/19 History nitroglycerin [Nitrostat] 0.3 mg SUBLINGUAL UD 05/23/19 06/18/19 History nystatin 1 applic TOPICAL TID PRN 05/23/19 06/18/19 History olopatadine 1 drp OPHTHALMIC (EYE) QAM 05/23/19 06/18/19 History Combivent Respimat 1 puff INHALATION QID PRN 05/26/19 06/18/19 History fentanyl [Duragesic] 1 patch TOPICAL [id number] 05/26/19 06/18/19 History fentanyl [Duragesic] 1 patch TOPICAL [id number] 05/26/19 06/18/19 History Saccharomyces boulardii [Florastor] 250 mg PO DAILY 30 Days #30 cap 05/30/19 06/18/19 Rx Past Med/Surg History Medical History CAD (coronary artery disease) (Chronic) Hypertension (Chronic) Myocardial Infarction (Chronic) 2 YEARS AGO Pulmonary embolism (Chronic) 4 YEARS OLD (UNSURE OF REASON) Deep vein thrombosis (Chronic) 4 YEARS AGO Migraine (Chronic) Restless leg syndrome (Chronic) Anxiety (Chronic) Depression (Chronic) Post traumatic stress disorder (Chronic) Anemia (Chronic) HX OF Hypothyroidism (Chronic) Colitis (Chronic) Osteoarthritis (Chronic) Degenerative disc disease (Chronic) Chronic back pain TO BILAT LEGS Hyperlipidemia Kidney stones Osteoarthritis SOB (shortness of breath) on exertion Surgical History History of heart artery stent (Chronic) 2017- STENT PLACED AT [facility] (DR. DAVILA) History of adenoidectomy (Chronic) History of tonsillectomy (Chronic) History of appendectomy (Chronic) History of colonoscopy (Chronic) History of esophagogastroduodenoscopy (EGD) (Chronic) Fusion of spine (Chronic) LUMBAR History of laminectomy (Chronic) LUMBAR Ovarian cyst (Chronic) X 2 History of anesthesia reaction (Chronic) WOKE UP IN MIDDLE OF SPINAL SURGERIES History of cataract surgery (Chronic) LEFT AND RIGHT History of vascular access device PORT LEFT UPPER CHEST-IN PLACE Family History Other Hypertension Social History Preferred Language: Occitan Communication Ability: Effective Statistical Consultant Required: No Beliefs That Will Affect Care: None marital status: Current Living Situation: Alone current occupational status: retired Other Information That Helps Us Care for You: No Feels Safe at Home: Yes Safety Concerns: Feels Safe At This Time Smoking Status: Never smoker Second Hand Exposure: No ; Hx Alcohol Use: No Hx Substance Use: No Review of Systems Review of Systems: At least ten systems reviewed and negative except as noted in the HPI. Physical Exam Physical Exam: General Appearance: WD/WN, vitals as above, NAD, sitting up in bed, pleasant, conversing easily, appears chronically ill, 93% on 4L NC O2 Head: normocephalic, atraumatic Eyes: normal inspection, PERRL, conjunctivae normal, anicteric sclerae ENT: external ear and nose normal, oropharynx with dry mucous membranes Neck: trachea midline, no thyromegaly normal visual inspection Respiratory: normal respiratory effort, lungs with decreased air movement bi laterally, no wheeze, rales, rhonchi. Normal insp/exp effort, no accessory muscle use Cardiovascular: regular rate, rhythm, no murmur, normal peripheral pulses. Vessels: no JVD or carotid bruit Chest: normal inspection of chest. L chest port, no surrounding edema/erythema Abdomen/GI: normal bowel sounds, soft, nontender, no hepatosplenomegaly Extremities/Musculoskelatal: no cyanosis or clubbing, extremities motor strength 5/5 Neurologic: PERRL, EOMI, accommodation nl, no face palsy, no dysarthria CN's II-XI intact bilaterally and moves all extremities Psychiatric: A+Ox3, euthymic affect Skin: no rashes, normal color, warm/dry Results & Data Vital Signs (Past 12 Hours) Vital Signs Temp Pulse Pulse Resp BP BP Pulse Ox 06/18/19 17:55 68 16 92/51 L 93 06/18/19 17:35 69 20 92/51 L 92 06/18/19 17:00 69 19 126/62 96 06/18/19 16:31 70 20 97/43 L 97 06/18/19 16:00 69 20 92/50 L 97 06/18/19 15:45 72 20 85/45 L 94 06/18/19 15:40 67 20 92/47 L 92 06/18/19 15:36 71 12 89/45 L 92 06/18/19 15:28 75 20 66/51 L 92 06/18/19 15:25 78 87 L 06/18/19 15:10 87 L 06/18/19 14:57 36.8 C 83 16 101/66 96 Laboratory Results Short CBC 06/18/19 Range/Units 15:25 WBC 24.11 H (4.8-10.8) K/uL Hgb 12.6 (12.0-16.0) g/dL Hct 37.9 (37-47) % Plt Count 302 (130-400) K/uL BMP 06/18/19 15:25 Sodium 135 L Potassium 3.5 Chloride 102 Carbon Dioxide 26 BUN 22 H Creatinine 2.04 H Glucose 119 H Calcium 8.9 Cardiac Enzymes 06/18/19 Range/Units 15:25 Troponin I < 0.015 (0-0.045) ng/ml Liver Function 06/18/19 Range/Units 15:25 Total Bilirubin 1.0 (0.2-1) mg/dl AST 11 L (15-37) U/L ALT 16 (12-78) U/L Alkaline Phosphatase 95 (45-117) U/L Albumin 3.7 (3.4-5.0) gm/dl Diagnostic Findings CXR: IMPRESSION: 1. Cardiomegaly. 2. Minimal right basilar atelectasis slightly decreased from prior. Supervising Physician Co-Signing Physician Notes Care coordinated with Huong Murphy. Agree with above note. Patient seen and examined. Please refer to her notes for full details. Vital signs reviewed. Physical exam: General exam: Alert and oriented. Not in acute distress. CVS: S1 and S2 heard, regular rate and rhythm, no murmurs. RS: Clear to auscultation, no wheezing or crackles. ABD: Soft, bowel sounds present, nontender, no distention. ERP DEVELOPER: Nonfocal. EXT: No edema, no erythema. Labs: Reviewed. Assessment and plan: 69 Who was recently admitted for nausea/vomiting and hospitalization complicated by possible gi bleed and anemia and was discharge to followup as out patient was readmitted for aspiration pneumonia and hypotension. Improved and discharged comes back with not feeling well, , hypotension, fevers . On presentation was hypotensive. Improved with fluids, Leukocytosis. Sepsis Source unclear will do ct chest follow cultures has a port-possible line infection? continue iv vanco and zosyn and iv ns@125ml/hr close monitor in tele HTN Plan was to stop lisnopril and hctz but was restarted as blood pressure got elevated labile htn to continue amlodipine and lopressor with hold parameters hold lisinopril and hctz Kevin from above fluids holding hctz and lisnoipril follow labs Other diagnosis and plan of care as per []. Reyes quinones MD. (1) Sepsis Sepsis acute organ dysfunction status: unspecified Sepsis type: sepsis due to unspecified organism Qualified Code(s): A41.9 - Sepsis, unspecified organism (2) Pneumonia Laterality: unspecified laterality Lung location: unspecified part of lung Pneumonia type: due to unspecified organism Qualified Code(s): J18.9 - Pneumonia, unspecified organism
[2019-06-18] MEDS ORDERED: ACETAMINOPHEN 325 MG TAB PO PRN (19:24)
[2019-06-18] MEDS ORDERED: ONDANSETRON INJ 2 MG/ML 2 ML VIAL IV PRN (19:24)
[2019-06-18] MEDS ORDERED: TIZANIDINE HCL 4 MG TABLET PO PRN (19:24)
[2019-06-18] MEDS ORDERED: EPINEPHRINE ADULT AUTO-INJECT 0.3 MG SYR IM PRN (19:24)
[2019-06-18] MEDS ORDERED: POLYETHYLENE (MIRALAX) 17 GM PACK PO PRN (19:24)
[2019-06-18] MEDS ORDERED: IPRATROPIUM BROMIDE/ALBUTEROL respimat INH INH PRN (19:24)
[2019-06-18] MEDS ORDERED: TRAMADOL HCL 50 MG TABLET PO PRN (19:24)
[2019-06-18] MEDS ORDERED: NYSTATIN POWDER 15GM BTL EXT PRN (19:24)
[2019-06-18] MEDS ORDERED: NITROGLYCERIN 0.3 MG/1 TAB 100 TAB BTL SL SCH (20:30)
--- NOTE | 2019-06-18 20:47 | CT Scan Report ---
CT chest wo con CLINICAL HISTORY: 69 years-old Female presenting with sepsis 2/2 ? PNA. TECHNIQUE: Multidetector CT imaging of the chest was performed without the use of intravenous contras t. IV contrast: None. One or more dose lowering techniques were used consistent with the principles o f ALARA (as low as reasonably achievable), including automatic exposure control, mA or kV adjustment to individual patient size, and/or use of iterative reconstruction. COMPARISON: 05/18/2018. CT DOSE (mGy.cm): The estimated cumulative dose is 468.14 mGy.cm. 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 Soft tissues: Left subclavian Mediport terminates in the lower SVC. Normal thyroid. No axillary, supr aclavicular, or mediastinal lymphadenopathy. Evaluation of the jaime limited without intravenous contr ast. Few scattered subcentimeter mediastinal lymph nodes are nonspecific. Trace atherosclerosis of th e aorta. Normal heart size. Coronary artery calcification. No pericardial or pleural effusion. Upper abdomen normal. Lungs and airways: No pneumothorax. Central airways patent. Pulmonary arteries are not significantly enlarged relative to adjacent bronchi. No interlobular septal thickening. Mild upper lobe predominant centrilobular and paraseptal emphysema. Bandlike opacities extensively in the left lower lobe and to a lesser degree in the dependent right lower lobe and medial right middle lobe likely extensive atel ectasis. Musculoskeletal: Degenerative changes of the spine. Posterior thoracic fusion wires. Postsurgical robbie nges of the posterior lateral left eighth rib. IMPRESSION: 1. Emphysema. No focal infiltrate to suggest pneumonia. 2. Scattered basilar predominant atelectasis or scarring. Electronically signed by: To Watters M.D. 06/18/2019 8:46 PM
[2019-06-18] MEDS ORDERED: fentaNYL 25 MCG/HR TDSY TD SCH (21:00)
[2019-06-18] MEDS ORDERED: fentaNYL 12 MCG/HR TDSY TD SCH (21:00)
[2019-06-18] MEDS: SODIUM CHLORIDE 0.9% 1000ML 1,000 ML IV SCH (21:10)
[2019-06-18] MEDS: METOPROLOL TARTRATE 25 MG TAB PO SCH (21:12)
[2019-06-18] MEDS: POTASSIUM CHLORIDE 20 MEQ TABCR PO SCH (21:14)
[2019-06-18] MEDS: MAGNESIUM OXIDE 400 MG TAB PO SCH (21:14)
[2019-06-18] MEDS: TRAZODONE HCL 100 MG TAB PO SCH (21:15)
[2019-06-18] MEDS: CALCIUM 600MG + VIT D 400 IU TAB PO SCH (21:16)
[2019-06-18] MEDS: PRAMIPEXOLE DIHYDROCHLO 0.25 MG TAB PO SCH (21:16)
[2019-06-18] MEDS: PIPERACILLIN/TAZOBACTAM 3.375 GM in DEXTROSE 5% 100 ML IV SCH (21:17)
--- NOTE | 2019-06-18 21:19 | Pharmacy Report ---
Pharmacy Abx Dose Short Note - Date of Service June 18, 2019 - Assessment & Plan Assessment 69 year old F receiving Vancomycin/Zosyn for treatment of sepsis secondary to pneumonia Day # 1 of antimicrobial therapy. Pt admitted for sepsis secondary to pneumonia. Recent admission for possible aspiration pneumonia. She developed a fever (tmax 102.8) as well as generalized weakness. Had some chest tightness and shortness of breath. Denies any sputum production or wheezing. Plan Vancomycin * Estimated PK parameters: Vd = 0.7 L/kg; Mateo 0.028 hr-1; T1/2 24.5 hrs * Patient CrCl elevated from baseline * Received Vancomycin 2250mg loading dose (24.3 mg/kg) * Did not order maintenance dose since kidney function may improve. Zosyn: * Received Zosyn 4.5gm IV loading dose. * Continue with Zosyn 3.375gm IV q8h extended infusion Pharmacy will continue to follow and will adjust dose/frequency as necessary. Thank you.
[2019-06-18 22:39] LABS: Appearance Urine Clear (Clear); Bilirubin Urine Negative (Negative); Blood Urine Negative (Negative); Color Urine Yellow; Glucose Urine UA Negative (Negative); Ketones Urine Negative (Negative); Leukocyte Esterase Urine Negative (Negative); Nitrite Urine Negative (Negative); Protein Urine Negative (Negative); Specific Gravity Urine 1.014 (1.000-1.030); Urobilinogen Urine Negative (Negative)
[2019-06-19] MEDS: CHECK FENTANYL PATCH PLACEMENT SCH ×4 (00:14→23:32)
[2019-06-19] MEDS ORDERED: HEPARIN 100 UNIT/ML 5ML FLUSH FLUSH PRN (00:33)
[2019-06-19 04:04] LABS: Hematocrit (blood only) 35.3 % (37-47); Hemoglobin 11.6 g/dL (12.0-16.0); Mean Corpuscular Hemoglobin 28.9 pg (25-34); Mean Corpuscular Hgb Conc 32.9 g/dL (32-36); Mean Corpuscular Volume 87.8 fL (80-100); Mean Platelet Volume 9.3 fL (7.4-10.4); Platelet Count 243 K/uL (130-400); RDW Coefficient of Variation 14.9 % (11.5-14.5); RDW Standard Deviation 47.9 fL (36.4-46.3); Red Blood Count 4.02 M/uL (4.2-5.4); White Blood Count 11.95 K/uL (4.8-10.8)
[2019-06-19 04:21] LABS: BUN Creatinine Ratio 13.9 (10-20); Blood Urea Nitrogen 16 mg/dl (7-18); Calcium 8.6 mg/dl (8.5-10.1); Carbon Dioxide 28 mmol/L (21-32); Chloride 111 mmol/L (98-107); Creatinine Clr Calc Pharmacy 46.6 ml/min; Est GFR (African American) 53.7; Est GFR (Non-African American) 46.4; Glucose 129 mg/dl (70-99); Troponin I < 0.015 ng/ml (0-0.045)
[2019-06-19 04:36] LABS: Sodium 142 mmol/L (136-145)
[2019-06-19] MEDS: LEVOTHYROXINE SODIUM 75 MCG TABLET PO SCH (06:14)
[2019-06-19] MEDS: PIPERACILLIN/TAZOBACTAM 3.375 GM in DEXTROSE 5% 100 ML IV SCH ×3 (06:14→21:51)
[2019-06-19] MEDS: SODIUM CHLORIDE 0.9% 1000ML 1,000 ML IV SCH ×3 (06:14→20:35)
[2019-06-19] MEDS: ASPIRIN 81 MG ECTAB PO SCH (08:01)
[2019-06-19] MEDS: CALCIUM 600MG + VIT D 400 IU TAB PO SCH ×2 (08:01→20:37)
[2019-06-19] MEDS: SACCHAROMYCES BOULARDII 250 MG CAP PO SCH (08:01)
[2019-06-19] MEDS: POTASSIUM CHLORIDE 20 MEQ TABCR PO SCH ×2 (08:01→20:37)
[2019-06-19] MEDS: CEROVITE ADV FORMULA TAB PO SCH (08:02)
[2019-06-19] MEDS: MAGNESIUM OXIDE 400 MG TAB PO SCH ×2 (08:02→20:36)
[2019-06-19] MEDS: ATORVASTATIN 40 MG TAB PO SCH (08:02)
[2019-06-19] MEDS: METOPROLOL TARTRATE 25 MG TAB PO SCH ×2 (08:02→20:38)
[2019-06-19] MEDS: AMLODIPINE BESYLATE 5 MG TAB PO SCH (08:02)
--- NOTE | 2019-06-19 12:04 | Hospitalist Progress Note ---
Date of Service June 19, 2019 Assessment & Plan (1) SIRS (systemic inflammatory response syndrome): Present with fever and weakness on admission Febrile with Temp 102.8, leukocytosis of 24 and hypotension in the ER Lactate and procalcitonin wnl CT chest showed Emphysema. No focal infiltrate to suggest pneumonia. CXR showed minimal right basilar atelectasis slightly decreased from prior. Blood cultures pending (from both port and peripheral sites) Received IV vanco, Levaquin and Zosyn in the ER Continue empiric vanc and zosyn Clinically improves (2) Acute respiratory failure with hypoxia: Possible related to Bronchitis Hypoxic at 87% initially on admission CT chest showed Emphysema. No focal infiltrate to suggest pneumonia. Saturated well on RA Clinically improves (3) Acute kidney injury: Possible related to poor oral intake, hypotension and diuretic Creatinine elevated at 2.04 on admission (baseline ~0.7-0.8) Received IVF Continue to hold lisinopril and HCTZ Monitor BMP (4) Hypertension: BP stable Continue amlodipine and Lopressor with hold parameters Continue to hold HCTZ, lisinopril in acute kidney injury (5) CAD (coronary artery disease): H/o stent in 2017 Pleuritic chest pain on presentation Troponin x 3 negative Continue aspirin, statin, lopressor with hold parameters (6) Hypothyroidism: Continue levothyroxine (7) Mood disorder: Continue Buspar, trazodone HS (8) Restless leg syndrome: Continue Mirapex Weakness Possible related to acute illness Has been feeling better Will let ambulate in the Hallway with nursing by her side Fall precaution DVT Ppx: SCDs for now with h/o rectal bleed Code status: FULL PCP: Maria Ines Dispo: Will discharge home once medically stable Subjective Pt was seen and examined Lying in bed with no distress Pt said that she feels much better today Denies any chest pain, palpitation, dizziness and SOB Physical Exam Physical Exam: General- No acute distress Head- atraumatic Eyes- PERRL, EOMI, ENT- oropharynx clear Neck- supple, no JVD Lungs- clear to auscultation Heart- regular rhythm; no murmur Abdomen- normal bowel sounds, soft, nontender Extremities- no calf tenderness Neuro- alert, oriented x 3; PERRL, EOMI; no facial palsy; no dysarthria Skin- warm & dry Results & Data Vital Signs (Past 12 Hours) Vital Signs Temp Pulse Pulse Pulse Resp BP BP 06/19/19 11:06 36.7 C 62 18 111/69 06/19/19 08:10 71 06/19/19 07:24 37.1 C 76 16 136/79 06/19/19 03:45 36.6 C 71 14 156/91 H Pulse Ox 06/19/19 11:06 91 06/19/19 08:10 06/19/19 07:24 90 06/19/19 03:45 94
--- NOTE | 2019-06-19 12:06 | Emergency Department Note ---
Entered by Pat James acting as a scribe for History of Present Illness General Chief complaint: Hypotension Stated complaint: HYPOTENSION Time Seen by Provider: 06/18/19 15:02 Source: patient History of Present Illness Onset (ago): day(s) (this morning) Severity: moderate (81/40) Pain Consistency: + other (episode) Quality: + other (hypotension) Associated symptoms: + denies other symptoms (abdominal pain, urinary symptoms, abnormal bowel movements), + chest pain, + cough, + fever/chills (fever) and + shortness of breath; no nausea/vomiting (vomiting) and no rash The patient is a 69 year old female w/ PMHx CAD, HTN, NH, PE, DVT, Migraine, Anxiety, Depression, PTSD, Anemia, Hypothyroidism, Kidney Stones, Colitis., Osteoarthritis, and HLD who presents to the ED w/ CC of an episode of hypotension starting this morning. The patient states that a few weeks ago she was admitted to the hospital for hypotension for a week. She states that when she was discharged and followed up with her PCP she was taken off all her medications for hypertension. She reports that since then she has been keeping track of her blood pressures. The patient states that this past week she has had blood pressures that are 200 something over 100 something. She reports that she decided to take a Lisinopril, but today she was having low blood pressures of 94/53, 86/41, and 81/40. She states that she called her PCP who told her to come to the ED. The patient complains of a fever of 103, a dry cough, nondescript chest pain, and shortness of breath. She notes that she is on Clindamycin because she has aspiration pneumonia from her last visit in the hospital with her cyclical vomiting syndrome. The patient denies vomiting, abdominal pain, urinary symptoms, abnormal bowel movements, rash, and a history of cancer. Home Medications Home Medications Medication Instructions Recorded Confirmed Type amlodipine [Norvasc] 5 mg PO QAM 12/13/18 06/18/19 History atorvastatin [Lipitor] 40 mg PO QAM 12/13/18 06/18/19 History buspirone 10 mg PO TID 12/13/18 06/18/19 History hydroxyzine HCl 75 mg PO HS 12/13/18 06/18/19 History levothyroxine 75 mcg PO QAM 12/13/18 06/18/19 History metoprolol tartrate 25 mg PO BID 12/13/18 06/18/19 History tizanidine [Zanaflex] 4 mg PO BID PRN 12/13/18 06/18/19 History pramipexole [Mirapex] 0.125 mg PO HS 01/25/19 06/18/19 History tramadol [Ultram] 50 mg PO Q8 PRN 01/25/19 06/18/19 History potassium chloride [Klor-Con M20] 20 meq PO BID 03/30/19 06/18/19 History ondansetron HCl [Zofran] 8 mg PO Q6H PRN 05/12/19 06/18/19 History polyethylene glycol 3350 17 g PO DAILY PRN 05/12/19 06/18/19 History prochlorperazine maleate 10 mg PO BID PRN 05/12/19 06/18/19 History promethazine 25 mg PO Q6H PRN 05/12/19 06/18/19 History trazodone 200 mg PO HS 05/12/19 06/18/19 History Calcium 600 + D(3) 1 cap PO BID 05/23/19 06/18/19 History Ocuvite Adult 50 Plus 1 cap PO QAM 05/23/19 06/18/19 History aspirin [Aspir-81] 81 mg PO QAM 05/23/19 06/18/19 History epinephrine 0.3 mg IM Q3H PRN 05/23/19 06/18/19 History hydrochlorothiazide 25 mg PO QAM 05/23/19 06/18/19 History lisinopril 5 mg PO QAM 05/23/19 06/18/19 History magnesium oxide 400 mg PO BID 05/23/19 06/18/19 History nitroglycerin [Nitrostat] 0.3 mg SUBLINGUAL UD 05/23/19 06/18/19 History nystatin 1 applic TOPICAL TID PRN 05/23/19 06/18/19 History olopatadine 1 drp OPHTHALMIC (EYE) QAM 05/23/19 06/18/19 History Combivent Respimat 1 puff INHALATION QID PRN 05/26/19 06/18/19 History fentanyl [Duragesic] 1 patch TOPICAL [id number] 05/26/19 06/18/19 History fentanyl [Duragesic] 1 patch TOPICAL [id number] 05/26/19 06/18/19 History Saccharomyces boulardii [Florastor] 250 mg PO DAILY 30 Days #30 cap 05/30/19 06/18/19 Rx Allergies Allergy/AdvReac Type Severity Reaction Status Date / Time latex Allergy Intermediate Rash Verified 06/18/19 16:31 nickel Allergy Intermediate SEVERE Verified 06/18/19 16:31 DERMATITIS NSAIDS (Non-Steroidal Allergy Intermediate HX OF Verified 06/18/19 16:31 Anti-Inflamma BLEEDING ULCERS-TO AVOID aspirin AdvReac Intermediate bleeding Verified 06/18/19 16:31 ulcers Past Med/Surg History Medical History CAD (coronary artery disease) (Chronic) Hypertension (Chronic) Myocardial Infarction (Chronic) 2 YEARS AGO Pulmonary embolism (Chronic) 2 YEARS OLD (UNSURE OF REASON) Deep vein thrombosis (Chronic) 4 YEARS AGO Migraine (Chronic) Restless leg syndrome (Chronic) Anxiety (Chronic) Depression (Chronic) Post traumatic stress disorder (Chronic) Anemia (Chronic) HX OF Hypothyroidism (Chronic) Colitis (Chronic) Osteoarthritis (Chronic) Degenerative disc disease (Chronic) Chronic back pain TO BILAT LEGS Hyperlipidemia Kidney stones Osteoarthritis SOB (shortness of breath) on exertion Surgical History History of heart artery stent (Chronic) 2017-1 STENT PLACED AT [facility] (DR. DAVILA) History of adenoidectomy (Chronic) History of tonsillectomy (Chronic) History of appendectomy (Chronic) History of colonoscopy (Chronic) History of esophagogastroduodenoscopy (EGD) (Chronic) Fusion of spine (Chronic) LUMBAR History of laminectomy (Chronic) LUMBAR Ovarian cyst (Chronic) X 2 History of anesthesia reaction (Chronic) WOKE UP IN MIDDLE OF SPINAL SURGERIES History of cataract surgery (Chronic) LEFT AND RIGHT History of vascular access device PORT LEFT UPPER CHEST-IN PLACE Family History Other Hypertension Social History Preferred Language: Eritrean Communication Ability: Effective 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 and A total of 10 systems reviewed and were otherwise negative Physical Exam Vital Signs Vital Signs - 24 hr 06/18/19 14:57 06/18/19 15:10 06/18/19 15:25 Temperature 36.8 C Temperature Source Oral Sepsis Recent Fever Within 48 Hours No Sepsis New/Unexplained Change in Mental Status No Sepsis Action Taken by Nursing No Action Required Pulse Rate 83 78 Pulse Rate [Apical] Pulse Rhythm Regular Pulse Rhythm [Apical] Pulse Strength [Apical] Respiratory Rate 16 Respiratory Effort / Characteristics Non-Labored Respiratory Depth Normal Respiratory Pattern Blood Pressure 101/66 Blood Pressure [Right Arm] Blood Pressure Mean 77 Blood Pressure Mean [Right Arm] Blood Pressure Position [Right Arm] Pulse Oximetry 96 87 L 87 L Oxygen Delivery Method Room Air Room Air Room Air Oxygen Flow Rate 06/18/19 15:28 06/18/19 15:36 06/18/19 15:40 Temperature Temperature Source Sepsis Recent Fever Within 48 Hours Sepsis New/Unexplained Change in Mental Status Sepsis Action Taken by Nursing Pulse Rate Pulse Rate [Apical] 75 71 67 Pulse Rhythm Pulse Rhythm [Apical] Regular Regular Regular Pulse Strength [Apical] Normal Normal Normal Respiratory Rate 20 12 20 Respiratory Effort / Characteristics Non-Labored Spontaneous Non-Labored Spontaneous Non-Labored Spontaneous Respiratory Depth Normal Normal Normal Respiratory Pattern Regular Regular Regular Blood Pressure Blood Pressure [Right Arm] 66/51 L 89/45 L 92/47 L Blood Pressure Mean Blood Pressure Mean [Right Arm] 56 59 62 Blood Pressure Position [Right Arm] Sitting Sitting Sitting Pulse Oximetry 92 92 92 Oxygen Delivery Method Nasal Cannula Nasal Cannula Nasal Cannula Oxygen Flow Rate 2 2 3 06/18/19 15:45 06/18/19 16:00 06/18/19 16:31 Temperature Temperature Source Sepsis Recent Fever Within 48 Hours Sepsis New/Unexplained Change in Mental Status Sepsis Action Taken by Nursing Pulse Rate Pulse Rate [Apical] 72 69 70 Pulse Rhythm Pulse Rhythm [Apical] Regular Regular Regular Pulse Strength [Apical] Normal Normal Normal Respiratory Rate 20 20 20 Respiratory Effort / Characteristics Non-Labored Spontaneous Non-Labored Spontaneous Non-Labored Spontaneous Respiratory Depth Normal Normal Normal Respiratory Pattern Regular Regular Regular Blood Pressure Blood Pressure [Right Arm] 85/45 L 92/50 L 97/43 L Blood Pressure Mean Blood Pressure Mean [Right Arm] 58 64 61 Blood Pressure Position [Right Arm] Sitting Sitting Sitting Pulse Oximetry 94 97 97 Oxygen Delivery Method Nasal Cannula Nasal Cannula Nasal Cannula Oxygen Flow Rate 2 4 4 06/18/19 17:00 06/18/19 17:35 06/18/19 17:55 Temperature Temperature Source Sepsis Recent Fever Within 48 Hours Sepsis New/Unexplained Change in Mental Status Sepsis Action Taken by Nursing Pulse Rate Pulse Rate [Apical] 69 69 68 Pulse Rhythm Pulse Rhythm [Apical] Regular Regular Regular Pulse Strength [Apical] Normal Normal Normal Respiratory Rate 19 20 16 Respiratory Effort / Characteristics Non-Labored Spontaneous Non-Labored Spontaneous Non-Labored Spontaneous Respiratory Depth Normal Normal Normal Respiratory Pattern Regular Regular Regular Blood Pressure Blood Pressure [Right Arm] 126/62 92/51 L 92/51 L Blood Pressure Mean Blood Pressure Mean [Right Arm] 83 64 64 Blood Pressure Position [Right Arm] Sitting Sitting Sitting Pulse Oximetry 96 92 93 Oxygen Delivery Method Nasal Cannula Nasal Cannula Nasal Cannula Oxygen Flow Rate 4 4 4 GENERAL: Mildly ill appearing, well nourished. Nasal cannula in place. EYE EXAM: Normal conjunctiva. PERRL, no anisocoria and EOM's grossly intact w/o pain. OROPHARYNX: Moist mucous membranes. Grossly normal dentition. NECK: Supple, no nuchal rigidity, no adenopathy, non-tender. No signs of meningismus. LUNGS: Clear to auscultation. Normal chest wall mechanics. HEART: NSR, no MRG. ABDOMEN: Abdomen soft, non-tender, normo-active bowel sounds, no masses, no rebound or guarding. BACK: No CVA TTP. SKIN: No rashes and no bruising. UPPER EXTREMITIES: Upper extremities are grossly normal. LOWER EXTREMITIES: No pitting edema. No calf pain. NEURO EXAM: A&O x3, cranial nerves II-XII grossly intact, normal speech, moves all 4 extremities on command w/o issue. Course 1516: Past medical records reviewed. The patient was evaluated in room C8. A complete history and physical exam was performed. 1636: I reevaluated the patient and updated her on her test results. I discussed the treatment plan with her. She verbally agrees and understands. 1647: I discussed the patient's case with BOB Helm Hospitalist. She will evaluate the patient for further management under Dr. Miller's service. Consultations Consultation #1: I discussed the patient's case with BOB Helmist. She will evaluate the patient for further management under Dr. Miller's service. Time: 16:47 Administered Medications Amlodipine Besylate (Norvasc) 5 mg PO QAM [facility] Stop: 07/19/19 08:59 Last Admin: 06/19/19 08:02 Dose: 5 mg Documented by: [id number] Aspirin (Ecotrin Ectab) 81 mg PO QAM [facility] Stop: 07/19/19 08:59 Last Admin: 06/19/19 08:01 Dose: 81 mg Documented by: [id number] Atorvastatin Calcium (Lipitor) 40 mg PO QAM [facility] Stop: 07/19/19 08:59 Last Admin: 06/19/19 08:02 Dose: 40 mg Documented by: [id number] Buspirone HCl (Buspar) 10 mg PO TID COLT Stop: 07/18/19 20:59 Last Admin: 06/19/19 08:01 Dose: 10 mg Documented by: [id number] Admin: 06/18/19 21:16 Dose: 10 mg Documented by: [id number] Fentanyl (Duragesic) 25 mcg TD Q72H COLT Stop: 07/02/19 20:59 Last Admin: 06/18/19 21:24 Dose: 25 mcg Documented by: [id number] Fentanyl (Duragesic) 12 mcg TD Q72H COLT Stop: 07/02/19 20:59 Last Admin: 06/18/19 21:25 Dose: 12 mcg Documented by: [id number] Hydroxyzine HCl (Vistaril) 75 mg PO HS COLT Stop: 07/18/19 20:59 Last Admin: 06/18/19 21:13 Dose: 75 mg Documented by: [id number] Sodium Chloride (Nss 1000ml) 1,000 mls @ 125 mls/hr IV .Q8H COLT Stop: 07/18/19 19:23 Last Admin: 06/19/19 06:14 Dose: 125 mls/hr Documented by: [id number] Infusion: 06/19/19 05:10 Dose: 125 mls/hr Documented by: [id number] Admin: 06/18/19 21:10 Dose: 125 mls/hr Documented by: [id number] Piperacillin Sod/Tazobactam (Sod 3.375 gm/ Dextrose) 115 mls @ 28.75 mls/hr IV Q8H [facility]; Protocol Stop: 06/25/19 21:59 Last Infusion: 06/19/19 10:14 Dose: 0 mls/hr Documented by: [id number] Admin: 06/19/19 06:14 Dose: 28.8 mls/hr Documented by: [id number] Infusion: 06/19/19 01:17 Dose: 0 mls/hr Documented by: [id number] Admin: 06/18/19 21:17 Dose: 28.8 mls/hr Documented by: [id number] Levothyroxine [facility] ([facility]throid) [facility] Stop: 07/19/19 06:29 Last Admin: 06/19/19 06:14 Dose: 75 mcg Documented by: [id number] Magnesium Oxide (Mag-Ox) 400 mg PO BID [facility] Stop: 07/18/19 20:59 Last Admin: 06/19/19 08:02 Dose: 400 mg Documented by: [id number] Admin: 06/18/19 21:14 Dose: 400 mg Documented by: [id number] Metoprolol Tartrate (Lopressor) 25 mg PO BID [facility] Stop: 07/18/19 20:59 Last Admin: 06/19/19 08:02 Dose: 25 mg Documented by: [id number] Admin: 06/18/19 21:12 Dose: 25 mg Documented by: [id number] Miscellaneous (Order Awaiting Action) 1 ea N/A QS [facility] Stop: 07/19/19 00:00 Last Admin: 06/19/19 08:03 Dose: Not Given Documented by: [id number] Admin: 06/19/19 00:11 Dose: Not Given Documented by: [id number] Miscellaneous (Fentanyl Patch Check Placement) 1 ea N/A QS [facility] Stop: 07/19/19 00:00 Last Admin: 06/19/19 08:03 Dose: 1 ea Documented by: [id number] Admin: 06/19/19 00:14 Dose: 1 ea Documented by: [id number] Multivitamins/Minerals (Multivitamin W/ Minerals Tab) 1 tab PO QAM COLT Stop: 07/19/19 08:59 Last Admin: 06/19/19 08:02 Dose: 1 tab Documented by: [id number] Multivitamins/Minerals (Caltrate Plus) 1 tab PO BID COLT Stop: 07/18/19 20:59 Last Admin: 06/19/19 08:01 Dose: 1 tab Documented by: [id number] Admin: 06/18/19 21:16 Dose: 1 tab Documented by: [id number] Potassium Chloride (Klor-Con M20) 20 meq PO BID COLT Stop: 07/18/19 20:59 Last Admin: 06/19/19 08:01 Dose: 20 meq Documented by: [id number] Admin: 06/18/19 21:14 Dose: 20 meq Documented by: [id number] Pramipexole Dihydrochloride (Mirapex) 0.125 mg PO HS COLT Stop: 07/18/19 20:59 Last Admin: 06/18/19 21:16 Dose: 0.125 mg Documented by: [id number] Saccharomyces Boulardii (Florastor) 250 mg PO DAILY COLT Stop: 07/19/19 08:59 Last Admin: 06/19/19 08:01 Dose: 250 mg Documented by: [id number] Tizanidine HCl (Zanaflex) 4 mg PO BID PRN PRN Reason: Muscle Spasm Stop: 07/18/19 19:23 Last Admin: 06/19/19 08:07 Dose: 4 mg Documented by: [id number] Trazodone HCl (Desyrel) 200 mg PO HS COLT Stop: 07/18/19 20:59 Last Admin: 06/18/19 21:15 Dose: 200 mg Documented by: [id number] Discontinued Medications Acetaminophen (Tylenol) 650 mg PO NOW STA Stop: 06/18/19 16:48 Last Admin: 06/18/19 16:54 Dose: 650 mg Documented by: [id number] Sodium Chloride (Nss 1000ml) 1,000 mls @ 999 mls/hr IV .Q1H1M COLT Stop: 06/18/19 16:30 Last Infusion: 06/18/19 16:41 Dose: 0 mls/hr Documented by: [id number] Admin: 06/18/19 15:28 Dose: 999 mls/hr Documented by: [id number] Sodium Chloride (Nss 1000ml) 1,000 mls @ 999 mls/hr IV .Q1H1M ONE Stop: 06/18/19 17:30 Last Infusion: 06/18/19 17:43 Dose: 0 mls/hr Documented by: [id number] Admin: 06/18/19 16:42 Dose: 999 mls/hr Documented by: [id number] Piperacillin Sod/Tazobactam Sod (Zosyn) 4.5 gm in 120 mls @ 240 mls/hr IV NOW ONE Stop: 06/18/19 17:01 Last Infusion: 06/18/19 17:24 Dose: 0 mls/hr Documented by: [id number] Admin: 06/18/19 16:54 Dose: 240 mls/hr Documented by: [id number] Vancomycin HCl 2,250 mg/ (Sodium Chloride) 545 mls @ 200 mls/hr IV NOW ONE Stop: 06/18/19 19:16 Last Infusion: 06/18/19 22:30 Dose: 0 mls/hr Documented by: [id number] Admin: 06/18/19 18:03 Dose: 200 mls/hr Documented by: [id number] Levofloxacin/Dextrose (Levaquin/D5w) 750 mg in 150 mls @ 100 mls/hr IV Q24H COLT Stop: 06/20/19 16:44 Last Infusion: 06/18/19 19:05 Dose: 0 mls/hr Documented by: [id number] Admin: 06/18/19 16:54 Dose: 100 mls/hr Documented by: [id number] Medical Decision Making Differential Diagnosis Differential Diagnosis includes but is not limited to dehydration, stroke, anemia, hypoglycemia, hyponatremia, hypernatremia, urinary tract infection, pneumonia, bronchitis, sepsis, gastroenteritis, additional abdominal pathology, metabolic abnormalities and infections. Medical Records Attestation: I reviewed the patient's medical records. Home Medications Current Medication List: was personally reviewed by me Laboratory Data Attestation: I reviewed the patient's lab results. Result diagrams: 06/19/19 03:24 06/19/19 03:24 Lab Results 06/18/19 06/18/19 06/18/19 Range/Units 15:25 15:25 15:25 WBC 24.11 H (4.8-10.8) K/uL RBC 4.29 (4.2-5.4) M/uL Hgb 12.6 (12.0-16.0) g/dL Hct 37.9 (37-47) % MCV 88.3 (80-100) fL MCH 29.4 (25-34) pg MCHC 33.2 (32-36) g/dL RDW Std Deviation 48.1 H (36.4-46.3) fL RDW Coeff of [place]den 14.9 H (11.5-14.5) % Plt Count 302 (130-400) K/uL MPV 9.4 (7.4-10.4) fL Immature Gran % (Auto) 0.2 % Neut % (Auto) 74.0 % Lymph % (Auto) 16.1 % [place] % (Auto) 7.3 % Eos % (Auto) 2.2 % Baso % (Auto) 0.2 % Immature Gran # (Auto) 0.06 H (0.00-0.02) K/uL Neut # (Auto) 17.80 H (1.4-6.5) K/uL Lymph # (Auto) 3.89 H (1.2-3.4) K/uL [place] # (Auto) 1.77 H (0.11-0.59) K/uL Eos # (Auto) 0.54 H (0-0.5) K/uL Baso # (Auto) 0.05 (0-0.2) K/uL PT 11.1 (9.0-12.0) Seconds INR 1.1 (0.9-1.1) APTT 31.3 H (21.0-31.0) Seconds PTT Ratio 1.2 Sodium 135 L (136-145) mmol/L Potassium 3.5 (3.5-5.1) mmol/L Chloride 102 (98-107) mmol/L Carbon Dioxide 26 (21-32) mmol/L Anion Gap 7.0 (3-11) BUN 22 H (7-18) mg/dl Creatinine 2.04 H (0.6-1.2) mg/dl Est Cr Clr Drug Dosing 27.9 ml/min Est GFR ( Amer) 27.7 Est GFR (Non-Af Amer) 23.9 BUN/Creatinine Ratio 10.6 (10-20) Glucose 119 H (70-99) mg/dl POC Lactic Acid Clay (0.90-1.70) mmol/L Lactate (0.4-2.0) mmol/L Calcium 8.9 (8.5-10.1) mg/dl Total Bilirubin 1.0 (0.2-1) mg/dl AST 11 L (15-37) U/L ALT 16 (12-78) U/L Alkaline Phosphatase 95 (45-117) U/L Troponin I < 0.015 (0-0.045) ng/ml Total Protein 7.3 (6.4-8.2) gm/dl Albumin 3.7 (3.4-5.0) gm/dl Globulin 3.6 (2.5-4.0) gm/dl Albumin/Globulin Ratio 1.0 (0.9-2) Procalcitonin (0-0.5) ng/ml Hepatitis C Ab Screen (Neg) 06/18/19 06/18/19 06/18/19 Range/Units 15:25 15:25 15:32 WBC (4.8-10.8) K/uL RBC (4.2-5.4) M/uL Hgb (12.0-16.0) g/dL Hct (37-47) % MCV (80-100) fL MCH (25-34) pg MCHC (32-36) g/dL RDW Std Deviation (36.4-46.3) fL RDW Coeff of [place]den (11.5-14.5) % Plt Count (130-400) K/uL MPV (7.4-10.4) fL Immature Gran % (Auto) % Neut % (Auto) % Lymph % (Auto) % [place] % (Auto) % Eos % (Auto) % Baso % (Auto) % Immature Gran # (Auto) (0.00-0.02) K/uL Neut # (Auto) (1.4-6.5) K/uL Lymph # (Auto) (1.2-3.4) K/uL [place] # (Auto) (0.11-0.59) K/uL Eos # (Auto) (0-0.5) K/uL Baso # (Auto) (0-0.2) K/uL PT (9.0-12.0) Seconds INR (0.9-1.1) APTT (21.0-31.0) Seconds PTT Ratio Sodium (136-145) mmol/L Potassium (3.5-5.1) mmol/L Chloride (98-107) mmol/L Carbon Dioxide (21-32) mmol/L Anion Gap (3-11) BUN (7-18) mg/dl Creatinine (0.6-1.2) mg/dl Est Cr Clr Drug Dosing ml/min Est GFR ( Amer) Est GFR (Non-Af Amer) BUN/Creatinine Ratio (10-20) Glucose (70-99) mg/dl POC Lactic Acid Clay 1.51 (0.90-1.70) mmol/L Lactate (0.4-2.0) mmol/L Calcium (8.5-10.1) mg/dl Total Bilirubin (0.2-1) mg/dl AST (15-37) U/L ALT (12-78) U/L Alkaline Phosphatase (45-117) U/L Troponin I (0-0.045) ng/ml Total Protein (6.4-8.2) gm/dl Albumin (3.4-5.0) gm/dl Globulin (2.5-4.0) gm/dl Albumin/Globulin Ratio (0.9-2) Procalcitonin < 0.05 (0-0.5) ng/ml Hepatitis C Ab Screen Neg (Neg) 06/18/19 Range/Units 15:53 WBC (4.8-10.8) K/uL RBC (4.2-5.4) M/uL Hgb (12.0-16.0) g/dL Hct (37-47) % MCV (80-100) fL MCH (25-34) pg MCHC (32-36) g/dL RDW Std Deviation (36.4-46.3) fL RDW Coeff of [place]den (11.5-14.5) % Plt Count (130-400) K/uL MPV (7.4-10.4) fL Immature Gran % (Auto) % Neut % (Auto) % Lymph % (Auto) % [place] % (Auto) % Eos % (Auto) % Baso % (Auto) % Immature Gran # (Auto) (0.00-0.02) K/uL Neut # (Auto) (1.4-6.5) K/uL Lymph # (Auto) (1.2-3.4) K/uL [place] # (Auto) (0.11-0.59) K/uL Eos # (Auto) (0-0.5) K/uL Baso # (Auto) (0-0.2) K/uL PT (9.0-12.0) Seconds INR (0.9-1.1) APTT (21.0-31.0) Seconds PTT Ratio Sodium (136-145) mmol/L Potassium (3.5-5.1) mmol/L Chloride (98-107) mmol/L Carbon Dioxide (21-32) mmol/L Anion Gap (3-11) BUN (7-18) mg/dl Creatinine (0.6-1.2) mg/dl Est Cr Clr Drug Dosing ml/min Est GFR ( Amer) Est GFR (Non-Af Amer) BUN/Creatinine Ratio (10-20) Glucose (70-99) mg/dl POC Lactic Acid Clay (0.90-1.70) mmol/L Lactate 1.8 (0.4-2.0) mmol/L Calcium (8.5-10.1) mg/dl Total Bilirubin (0.2-1) mg/dl AST (15-37) U/L ALT (12-78) U/L Alkaline Phosphatase (45-117) U/L Troponin I (0-0.045) ng/ml Total Protein (6.4-8.2) gm/dl Albumin (3.4-5.0) gm/dl Globulin (2.5-4.0) gm/dl Albumin/Globulin Ratio (0.9-2) Procalcitonin (0-0.5) ng/ml Hepatitis C Ab Screen (Neg) Imaging Data Radiologist's Impression: Radiology results as stated below per my review and the radiologist's interpretation: XR chest 1V portable CLINICAL HISTORY: 69 years-old Female presenting with Sepsis, weakness, low blood pressure. TECHNIQUE: Portable upright AP view of the chest was obtained. COMPARISON: 05/26/[address] from FINDINGS: Breakage of median sternotomy wires noted. Curvilinear radiodensity projecting over the right heart is of uncertain etiology but unchanged from prior exam. Left subclavian Mediport terminates at the superior cavoatrial junction. Atherosclerosis of the aortic arch. Cardiac silhouette enlarged. Bandlike opac ity at the right lung base. No new focal opacity. No large effusion or pneumothorax. Scoliotic curvature of the thoracic spine. IMPRESSION: 1. Cardiomegaly. 2. Minimal right basilar atelectasis slightly decreased from prior. Electronically signed by: To Watters M.D. 06/18/2019 4:14 PM ECG Data Attestation: I personally reviewed and interpreted this ECG as follows: Indication: SOB/dyspnea Rate (beats per minute): 78 Rhythm: normal sinus Findings: + other (normal intervals), + Q waves (inferiorly), + T-wave inversion (V2 and lead 3) and + left axis deviation Comparison ECG Date: from (05/28/2019) Change: the following changes noted (PVCs are no longer present and the Q wave is old) Blood Pressure Blood Pressure Findings: Low blood pressure Blood Pressure Disposition: further management by hospitalist LU Narrative The patient is a 69 year old female w/ PMHx CAD, HTN, NH, PE, DVT, Migraine, Anxiety, Depression, PTSD, Anemia, Hypothyroidism, Kidney Stones, Colitis., Osteoarthritis, and HLD who presents to the ED w/ CC of an episode of hypotension starting this morning. Was seen and evaluate. The patient did present with concern for lower blood pressure and associated fever. The patient was recently admitted and discharged with a diagnosis of aspiration pneumonia secondary to cyclical vomiting. Upon presentation the patient was mildly ill in appearance. The patient was given IV fluids and blood work was obtained. The patient was initially little hypoxic and at 88% the patient has complained of a nonproductive cough. The patient did have a white count greater than 24 with a left shift. The patient's chest x-ray did not show any obvious consolidation but given the concerns with the hypoxia fever and elevated white counts I believe the pneumonia is a real possibility. The patient was covered for possible resistance given the recent treatment with clindamycin as an outpatient for aspiration pneumonia. Patient was subsequently admitted to the medicine service. Impression & Plan Sepsis, Pneumonia, Hypoxia Critical Care Time Critical Care Time: Yes Total Critical Care Time: 52 I have personally spent greater than 52 minutes of critical care time in direct management of this patient. This includes bedside care, interpretation of diagnostic studies, and testing, discussion with consultants, patient, and family members, and other require inpatient management activities. This 52 minutes is in excess of all separately billable procedures. Discharge Plan Visit Data *Final* Discharge Date/Time: 06/18/19 19:11 Chief Complaint: Hypotension Stated Complaint: HYPOTENSION ED Provider: Oskar Corado Discharge Problem: Sepsis, Pneumonia, Hypoxia Patient Disposition: Admitted As Inpatient Discharge Instructions Interventions: ED Discharge Assessment Last Done: 06/18/19 19:11 Discharge Problem: Sepsis Qualifiers: Sepsis type: sepsis due to unspecified organism Sepsis acute organ dysfunction status: unspecified Qualified Code(s): A41.9 - Sepsis, unspecified organism Pneumonia Qualifiers: Pneumonia type: due to unspecified organism Laterality: unspecified laterality Lung location: unspecified part of lung Qualified Code(s): J18.9 - Pneumonia, unspecified organism The scribe's documentation has been prepared under my direction and personally reviewed by me in its entirety. I confirm that the note above accurately reflects all work, treatment, procedures, and medical decision making performed by me.
[2019-06-19] MEDS ORDERED: Nursing to Pharmacy Communication ONE (16:15)
[2019-06-19] MEDS ORDERED: COUGH DROP (SUGAR FREE) LOZ 24 LOZ/1 BOX BUCCAL PRN (16:28)
[2019-06-19] MEDS ORDERED: COUGH DROP (SUGAR FREE) LOZ 24 LOZ/1 BOX BUCCAL ONE (16:28)
[2019-06-19] MEDS ORDERED: guaiFENesin SUGAR FREE 100 MG/5 ML UDC PO PRN (16:43)
[2019-06-19] MEDS: PRAMIPEXOLE DIHYDROCHLO 0.25 MG TAB PO SCH (20:37)
[2019-06-19] MEDS: TRAZODONE HCL 100 MG TAB PO SCH (20:38)
[2019-06-20] MEDS ORDERED: LORazepam 0.5 MG TAB PO STA (02:35)
[2019-06-20 06:14] LABS: Hematocrit (blood only) 36.2 % (37-47); Mean Corpuscular Hemoglobin 29.2 pg (25-34); Mean Corpuscular Hgb Conc 33.1 g/dL (32-36); Mean Corpuscular Volume 88.1 fL (80-100); Mean Platelet Volume 9.6 fL (7.4-10.4); Platelet Count 274 K/uL (130-400); RDW Coefficient of Variation 14.5 % (11.5-14.5); RDW Standard Deviation 46.8 fL (36.4-46.3); Red Blood Count 4.11 M/uL (4.2-5.4); White Blood Count 8.98 K/uL (4.8-10.8)
[2019-06-20] MEDS: PIPERACILLIN/TAZOBACTAM 3.375 GM in DEXTROSE 5% 100 ML IV SCH ×2 (06:14→14:24)
[2019-06-20] MEDS: LEVOTHYROXINE SODIUM 75 MCG TABLET PO SCH (06:15)
[2019-06-20 06:52] LABS: BUN Creatinine Ratio 9.7 (10-20); Calcium 8.9 mg/dl (8.5-10.1); Creatinine Clr Calc Pharmacy 67.1 ml/min; Est GFR (African American) 83.4
[2019-06-20] MEDS: METOPROLOL TARTRATE 25 MG TAB PO SCH (08:10)
[2019-06-20] MEDS: AMLODIPINE BESYLATE 5 MG TAB PO SCH (08:10)
[2019-06-20] MEDS: ATORVASTATIN 40 MG TAB PO SCH (08:10)
[2019-06-20] MEDS: ASPIRIN 81 MG ECTAB PO SCH (08:10)
[2019-06-20] MEDS: CHECK FENTANYL PATCH PLACEMENT SCH ×2 (08:10→16:49)
[2019-06-20] MEDS: CEROVITE ADV FORMULA TAB PO SCH (08:10)
[2019-06-20] MEDS: POTASSIUM CHLORIDE 20 MEQ TABCR PO SCH (08:11)
[2019-06-20] MEDS: MAGNESIUM OXIDE 400 MG TAB PO SCH (08:11)
[2019-06-20] MEDS: SACCHAROMYCES BOULARDII 250 MG CAP PO SCH (08:11)
[2019-06-20] MEDS: CALCIUM 600MG + VIT D 400 IU TAB PO SCH (08:11)
[2019-06-20] MEDS: SODIUM CHLORIDE 0.9% 1000ML 1,000 ML IV SCH (10:01)
[2019-06-20] MEDS ORDERED: hydroCHLOROthiazide 25 MG TAB PO SCH (10:15)
[2019-06-20] MEDS ORDERED: LISINOPRIL 5 MG TAB PO SCH (10:15)
--- NOTE | 2019-06-20 13:53 | Hospitalist Progress Note ---
Date of Service June 20, 2019 Assessment & Plan (1) SIRS (systemic inflammatory response syndrome): Present with fever and weakness on admission Febrile with Temp 102.8 (as per pt), leukocytosis of 24 and hypotension in the ER Lactate and procalcitonin wnl CT chest showed Emphysema. No focal infiltrate to suggest pneumonia. CXR showed minimal right basilar atelectasis slightly decreased from prior. Blood cultures collected on 06/18 no growth so far (from both port and peripheral sites) Received IV vanco, Levaquin and Zosyn in the ER Vanco was discontinue since MRSA screen negative On IV zosyn Clinically improves (2) Acute respiratory failure with hypoxia: Possible related to Bronchitis Hypoxic at 87% initially on admission CT chest showed Emphysema. No focal infiltrate to suggest pneumonia. Saturated well on RA On IV Zosyn, will change to oral Clinically improves (3) Acute kidney injury: Possible related to poor oral intake, hypotension and diuretic Creatinine elevated at 2.04 on admission (baseline ~0.7-0.8) Creatinine today 0.8 Lisinopril and HCTZ resumed Check BMP in 1 week Resolved (4) Hypertension: BP elevated Continue amlodipine and Lopressor with hold parameters HCTZ, lisinopril were on hold for acute kidney injury, now resume Continue monitor BMP and bring BP log on your next appt with PCP (5) CAD (coronary artery disease): H/o stent in 2017 Pleuritic chest pain on presentation Troponin x 3 negative Continue aspirin, statin, lopressor with hold parameters (6) Hypothyroidism: Continue levothyroxine (7) Mood disorder: Continue Buspar, trazodone HS (8) Restless leg syndrome: Continue Mirapex Weakness Possible related to acute illness Has been feeling better Has been ambulated in the Hallway with nurse by her side Fall precaution DVT Ppx: SCDs for now with h/o rectal bleed Code status: FULL PCP: Maria Ines Dispo: Will discharge home today Follow up appointment with your PCP Dr. Spann on 06/23 @ 10AM Follow up with your nephrology Dr. Becker on 06/24 @ 11:20 AM Check BMP within 1 week Monitor your blood pressure Subjective Pt was seen and examined Lying in bed with no distress Pt said that she feels much better Denies any chest pain, palpitation, dizziness and SOB Physical Exam Physical Exam: General- No acute distress Head- atraumatic Eyes- PERRL, EOMI, ENT- oropharynx clear Neck- supple, no JVD Lungs- clear to auscultation Heart- regular rhythm; no murmur Abdomen- normal bowel sounds, soft, nontender Extremities- no calf tenderness Neuro- alert, oriented x 3; PERRL, EOMI; no facial palsy; no dysarthria Skin- warm & dry Results & Data Vital Signs (Past 12 Hours) Vital Signs Temp Pulse Pulse Resp BP BP Pulse Ox 06/20/19 10:59 37.1 C 63 18 159/88 H 92 06/20/19 08:10 61 06/20/19 07:54 36.5 C 67 18 183/93 H 93 06/20/19 03:32 36.8 C 67 18 161/90 H 91
[2019-06-20] MEDS ORDERED: DOXYCYCLINE HYCLATE 100 MG CAP PO SCH (15:00)
[2019-06-20] MEDS ORDERED: fentaNYL 25 MCG/HR TDSY TD SCH (16:00)
[2019-06-20] MEDS ORDERED: fentaNYL 12 MCG/HR TDSY TD SCH (16:00)
[2019-06-21] MEDS ORDERED: CHECK FENTANYL PATCH PLACEMENT SCH
--- NOTE | 2019-06-21 08:57 | Discharge Summary ---
Date of Service June 20, 2019 Admission HPI Per Admitting Provider This is a 69yo F with a PMH of CAD (s/p stent), HTN, hypothyroidism, chronic pain syndrome, cyclical vomiting syndrome and recent aspiration PNA with presents with fever and weakness for the past 3 days. Patient was recently admitted from May 26- for possible aspiration pneumonia and acute kidney injury. In April, patient was admitted for cyclic vomiting syndrome and potentially aspirated at that point or after. Was treated with Zosyn and doxy and discharged on 7-day course of doxy. Followed up with PCP, who gave an additional 7-day course of clindamycin. Patient was feeling well until approximately 3 days ago, when she noted that her blood pressure was low, developed fever (T-max of 102.8 this morning) as well as generalized weakness. Had some chest tightness and shortness of breath this morning prior to arrival that of since resolved. Denies any sputum production or wheezing. Minimal nausea but no vomiting. No dysuria, diarrhea or constipation. Initially presented with hypotension with BP 66/51 and hypoxia at 87% on room air. Does not require home O2. Afebrile. Was given 2 L of IV fluid resuscitation with improved BP to 92/50. Also with leukocytosis of 24 K but lactic and procal citonin levels within normal limits. Creatinine elevated at 2.04. Has been told recently to discontinue lisinopril and hydrochlorothiazide due to worsening kidney function, but patient recently resumed due to labile hypertension and reported home BP with systolic BP >200. Has noted a low BP for the past few days with associated lightheadedness. CXR with cardiomegaly and minimal right basilar atelectasis slightly decreased from prior. UA is pending. Admission Exam Per Admitting Provider General Appearance: WD/WN, vitals as above, NAD, sitting up in bed, pleasant, conversing easily, appears chronically ill, 93% on 4L NC O2 Head: normocephalic, atraumatic Eyes: normal inspection, PERRL, conjunctivae normal, anicteric sclerae ENT: external ear and nose normal, oropharynx with dry mucous membranes Neck: trachea midline, no thyromegaly normal visual inspection Respiratory: normal respiratory effort, lungs with decreased air movement bilaterally, no wheeze, rales, rhonchi. Normal insp/exp effort, no accessory muscle use Cardiovascular: regular rate, rhythm, no murmur, normal peripheral pulses. Vessels: no JVD or carotid bruit Chest: normal inspection of chest. L chest port, no surrounding edema/erythema Abdomen/GI: normal bowel sounds, soft, nontender, no hepatosplenomegaly Extremities/Musculoskelatal: no cyanosis or clubbing, extremities motor strength 5/5 Neurologic: PERRL, EOMI, accommodation nl, no face palsy, no dysarthria CN's II-XI intact bilaterally and moves all extremities Psychiatric: A+Ox3, euthymic affect Skin: no rashes, normal color, warm/dry Principal Diagnosis SIRS (systemic inflammatory response syndrome) Acute respiratory failure with hypoxia Acute Kidney Injury Hypertension Restless leg syndrome Hypothyroidism CAD (coronary artery disease) Weakness Discharge Exam General- No acute distress Head- atraumatic Eyes- PERRL, EOMI, ENT- oropharynx clear Neck- supple, no JVD Lungs- clear to auscultation Heart- regular rhythm; no murmur Abdomen- normal bowel sounds, soft, nontender Extremities- no calf tenderness Neuro- alert, oriented x 3; PERRL, EOMI; no facial palsy; no dysarthria Skin- warm & dry Discharge Data Allergies Allergy/AdvReac Type Severity Reaction Status Date / Time latex Allergy Intermediate Rash Verified 06/18/19 16:31 nickel Allergy Intermediate SEVERE Verified 06/18/19 16:31 DERMATITIS NSAIDS (Non-Steroidal Allergy Intermediate HX OF Verified 06/18/19 16:31 Anti-Inflamma BLEEDING ULCERS-TO AVOID aspirin AdvReac Intermediate bleeding Verified 06/18/19 16:31 ulcers Consultations 06/18/19 16:47 ED Decision to Admit Stat Ordered Studies 06/18/19 20:18 CT chest wo con Routine CT chest wo con CLINICAL HISTORY: 69 years-old Female presenting with sepsis 2/2 ? PNA. TECHNIQUE: Multidetector CT imaging of the chest was performed without the use of intravenous contrast. IV contrast: None. One or more dose lowering techniques were used consistent with the principles of ALARA (as low as reasonably achievable), including automatic exposure control, mA or kV adjustment to individual patient size, and/or use of iterative reconstruction. COMPARISON: 05/18/2018. CT DOSE (mGy.cm): The estimated cumulative dose is 468.14 mGy.cm. FINDINGS: Supervisor Sample topogram: Unremarkable. Soft tissues: Left subclavian Mediport terminates in the lower SVC. Normal thyroid. No axillary, supraclavicular, or mediastinal lymphadenopathy. Evaluation of the jaime limited without intravenous contrast. Few scattered subcentimeter mediastinal lymph nodes are nonspecific. Trace atherosclerosis of the aorta. Normal heart size. Coronary artery calcification. No pericardial or pleural effusion. Upper abdomen normal. Lungs and airways: No pneumothorax. Central airways patent. Pulmonary arteries are not significantly enlarged relative to adjacent bronchi. No interlobular septal thickening. Mild upper lobe predominant centrilobular and paraseptal emphysema. Bandlike opacities extensively in the left lower lobe and to a lesser degree in the dependent right lower lobe and medial right middle lobe likely extensive atelectasis. Musculoskeletal: Degenerative changes of the spine. Posterior thoracic fusion wires. Postsurgical changes of the posterior lateral left eighth rib. IMPRESSION: 1. Emphysema. No focal infiltrate to suggest pneumonia. 2. Scattered basilar predominant atelectasis or scarring. Electronically signed by: To Watters M.D. 06/18/2019 8:46 PM Dictated: 06/18/192039 Transcribed: 06/18/192039 XR chest 1V portable CLINICAL HISTORY: 69 years-old Female presenting with Sepsis, weakness, low blood pressure. TECHNIQUE: Portable upright AP view of the chest was obtained. COMPARISON: 05/26/[address] from FINDINGS: Breakage of median sternotomy wires noted. Curvilinear radiodensity projecting over the right heart is of uncertain etiology but unchanged from prior exam. Left subclavian Mediport terminates at the superior cavoatrial junction. Athe rosclerosis of the aortic arch. Cardiac silhouette enlarged. Bandlike opacity at the right lung base. No new focal opacity. No large effusion or pneumothorax. Scoliotic curvature of the thoracic spine. IMPRESSION: 1. Cardiomegaly. 2. Minimal right basilar atelectasis slightly decreased from prior. Electronically signed by: To Watters M.D. 06/18/2019 4:14 PM Dictated: 06/18/19 1611 Transcribed: 06/18/19 1611 Hospital Course (1) SIRS (systemic inflammatory response syndrome): Present with fever and weakness on admission Febrile with Temp 102.8 (as per pt), leukocytosis of 24 and hypotension in the ER Lactate and procalcitonin wnl CT chest showed Emphysema. No focal infiltrate to suggest pneumonia. CXR showed minimal right basilar atelectasis slightly decreased from prior. Blood cultures collected on 06/18 no growth so far (from both port and peripheral sites) Received IV vanco, Levaquin and Zosyn in the ER Vanco was discontinue since MRSA screen negative On IV zosyn Clinically improves (2) Acute respiratory failure with hypoxia: Possible related to Bronchitis Hypoxic at 87% initially on admission CT chest showed Emphysema. No focal infiltrate to suggest pneumonia. Saturated well on RA On IV Zosyn, will change to oral Clinically improves (3) Acute kidney injury: Possible related to poor oral intake, hypotension and diuretic Creatinine elevated at 2.04 on admission (baseline ~0.7-0.8) Creatinine today 0.8 Lisinopril and HCTZ resumed Check BMP in 1 week Resolved (4) Hypertension: BP elevated Continue amlodipine and Lopressor with hold parameters HCTZ, lisinopril were on hold for acute kidney injury, now resume Continue monitor BMP and bring BP log on your next appt with PCP (5) CAD (coronary artery disease): H/o stent in 2017 Pleuritic chest pain on presentation Troponin x 3 negative Continue aspirin, statin, lopressor with hold parameters (6) Hypothyroidism: Continue levothyroxine (7) Mood disorder: Continue Buspar, trazodone HS (8) Restless leg syndrome: Continue Mirapex Weakness Possible related to acute illness Has been feeling better Has been ambulated in the Hallway with nurse by her side Fall precaution DVT Ppx: SCDs for now with h/o rectal bleed Code status: FULL PCP: Maria Ines Dispo: Will discharge home today Follow up appointment with your PCP Dr. Spann on 06/23 @ 10AM Follow up with your nephrology Dr. Becker on 06/24 @ 11:20 AM Check BMP within 1 week Monitor your blood pressure Total Time Total Time Spent Total Time Spent (In Minutes): 35 minutes Total Time Includes: Examination of the Patient, Discharge Planning, Medication Reconciliation, Communication With Other Providers and Other Discharge Plan Discharge Items Patient Disposition: Home - Self-Care Reason For Visit: SEPSIS 2/2 PNA Discharge Diagnosis: SIRS (systemic inflammatory response syndrome) Acute respiratory failure with hypoxia Acute Kidney Injury Hypertension Restless leg syndrome Hypothyroidism CAD (coronary artery disease) Weakness Discharge Goals: Decrease discomfort, Improve disease control, Increase independence and Improve nutritional status Activity: Resume your previous activity Activity Comment: As tolerated Non-emergency contact: Primary Care Provider and 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 Spann on 06/23 @ 10AM Follow up with your nephrology Dr. Becker on 06/24 @ 11:20 AM Check BMP within 1 week to monitor kidney function Monitor your blood pressure and bring your blood pressure log at your next appointment with your physician blood culture negative so far for bacteria, your physician will be able to discuss the final result with you Do not drive or operate any machine while on fentanyl patch If you become drowsy and lethargy, please hold next dose or remove the fentanyl patch Fall precaution Prescriptions: New doxycycline hyclate 100 mg tablet 100 mg PO BID 4 Days Qty: 8 RF: 0 Continued nitroglycerin [Nitrostat] 0.3 mg Tablet, Sublingual 0.3 mg sublingual UD RF: 0 aspirin [Aspir-81] 81 mg Tablet,Delayed Release (Dr/Ec) 81 mg PO QAM RF: 0 magnesium oxide 400 mg (241.3 mg magnesium) Tablet 400 mg PO BID RF: 0 lisinopril 5 mg Tablet 5 mg PO QAM RF: 0 hydrochlorothiazide 25 mg Tablet 25 mg PO QAM RF: 0 nystatin 100,000 unit/gram Powder 1 applic TOPICAL TID PRN (Reason: BREAKOUTS) RF: 0 Calcium 600 + D(3) 600 mg calcium- 200 unit Capsule 1 cap PO BID RF: 0 olopatadine 0.2 % Drops 1 drp OPHTHALMIC (EYE) QAM RF: 0 epinephrine 0.3 mg/0.3 mL Syringe 0.3 mg IM Q3H PRN (Reason: Allergic Reaction) RF: 0 Ocuvite Adult 50 Plus 250-5-1 mg Capsule 1 cap PO QAM RF: 0 atorvastatin [Lipitor] 40 mg Tablet 40 mg PO QAM RF: 0 amlodipine [Norvasc] 5 mg Tablet 5 mg PO QAM RF: 0 levothyroxine 75 mcg Tablet 75 mcg PO QAM RF: 0 buspirone 10 mg Tablet 10 mg PO TID RF: 0 metoprolol tartrate 25 mg Tablet 25 mg PO BID RF: 0 tizanidine [Zanaflex] 4 mg Capsule 4 mg PO BID PRN (Reason: Muscle Spasm) RF: 0 hydroxyzine HCl 50 mg Tablet 75 mg PO HS RF: 0 tramadol [Ultram] 50 mg Tablet 50 mg PO Q8 PRN (Reason: severe pain) RF: 0 pramipexole [Mirapex] 0.125 mg Tablet 0.125 mg PO HS RF: 0 potassium chloride [Klor-Con M20] 20 mEq tablet,ER particles/crystals 20 meq PO BID RF: 0 prochlorperazine maleate 5 mg tablet 10 mg PO BID PRN (Reason: Nausea) RF: 0 trazodone 100 mg tablet 200 mg PO HS RF: 0 polyethylene glycol 3350 17 gram Powder In Packet 17 g PO DAILY PRN (Reason: Constipation) RF: 0 ondansetron HCl [Zofran] 8 mg Tablet 8 mg PO Q6H PRN (Reason: Nausea) RF: 0 promethazine 25 mg Tablet 25 mg PO Q6H PRN (Reason: Nausea) RF: 0 fentanyl [Duragesic] 25 mcg/hr patch 72 hour 1 patch topical [id number] RF: 0 fentanyl [Duragesic] 12 mcg/hr patch 72 hour 1 patch topical [id number] RF: 0 Combivent Respimat 20-100 mcg/actuation Mist 1 puff INHALATION QID PRN (Reason: Shortness Of Breath Or Wheezing) RF: 0 Florastor 250 mg Capsule 250 mg PO DAILY 30 Days Qty: 30 RF: 0 Stand-Alone Forms: [facility] Discharge Orders: Discharge Order (Routine); Ordered 06/20/19 Ordered By: Carissa Trevino Admission Data Admit Date/Time: 06/19/19 12:28 Attending Provider: Carissa Trevino Admit Provider: Reyes Miller Primary Care Provider: Charanjit Spann Other Providers: Reyes Miller Service: Telemetry Other Interventions: Discharge Summary Assessment (RN) Last Done: 06/20/19 17:01 DC Date/Time DO NOT enter until pt leaves facility: 06/20/19 18:20
== END 2019-06-20 18:20 | disposition home or self-care (01) | DRG 871 ==
LOC: ED 14:55 → 2S 14:55

== ENCOUNTER 2019-07-03 16:00 | Inpatient (IN) ==
[2019-07-03] MEDS ORDERED: ALBUT/IPRATROP 3MG/0.5MG NEB 3 ML VIAL INH STA (16:26)
[2019-07-03] MEDS ORDERED: MoRPHine SULFATE 4 MG/ML 1 ML CARP\\VIAL IV STA ×2 (16:57→18:21)
[2019-07-03 17:30] LABS: Base Excess VBG 2.8 mEq/L; Oxygen Saturation VBG 72.9 %; pH VBG 7.41 (7.36-7.41)
[2019-07-03 17:33] LABS: Basophils # (auto) 0.07 K/uL (0-0.2); Basophils % (auto) 0.8 %; Eosinophils # (auto) 0.57 K/uL (0-0.5); Eosinophils % (auto) 6.2 %; Hematocrit (blood only) 34.2 % (37-47); Hemoglobin 11.4 g/dL (12.0-16.0); Immature Granulocytes # (auto) 0.01 K/uL (0.00-0.02); Immature Granulocytes % (auto) 0.1 %; Lymphocytes # (auto) 2.61 K/uL (1.2-3.4); Lymphocytes % (auto) 28.6 %; Mean Corpuscular Hgb Conc 33.3 g/dL (32-36); Mean Corpuscular Volume 88.4 fL (80-100); Mean Platelet Volume 9.2 fL (7.4-10.4); Monocytes # (auto) 0.68 K/uL (0.11-0.59); Monocytes % (auto) 7.4 %; Neutrophils # (auto) 5.19 K/uL (1.4-6.5); Neutrophils % (auto) 56.9 %; Platelet Count 285 K/uL (130-400); RDW Coefficient of Variation 14.6 % (11.5-14.5); RDW Standard Deviation 46.7 fL (36.4-46.3); Red Blood Count 3.87 M/uL (4.2-5.4); White Blood Count 9.13 K/uL (4.8-10.8)
[2019-07-03 17:45] LABS: Partial Thromboplastin Ratio 0.9; Partial Thromboplastin Time 25.1 Seconds (21.0-31.0); Prothrombin Time 10.6 Seconds (9.0-12.0)
[2019-07-03 17:53] LABS: Alanine Aminotransferase 20 U/L (12-78); Albumin Level 3.1 gm/dl (3.4-5.0); Aspartate Aminotransferase 17 U/L (15-37); BUN Creatinine Ratio 19.1 (10-20); Bilirubin Direct < 0.1 mg/dl (0-0.2); Blood Urea Nitrogen 15 mg/dl (7-18); Carbon Dioxide 27 mmol/L (21-32); Chloride 106 mmol/L (98-107); Creatinine Clr Calc Pharmacy 72.8 ml/min; Est GFR (African American) 88.6; Est GFR (Non-African American) 76.5; Glucose 119 mg/dl (70-99); Magnesium 1.8 mg/dl (1.8-2.4); Potassium 4.5 mmol/L (3.5-5.1); Sodium 140 mmol/L (136-145)
[2019-07-03] MEDS ORDERED: ALBUT/IPRATROP 3MG/0.5MG NEB 3 ML VIAL NEB STA ×2 (17:57→19:27)
[2019-07-03] MEDS ORDERED: methylPREDNISolone 125 MG/2 ML VIAL IV STA (17:57)
[2019-07-03 17:58] LABS: Albumin Globulin Ratio 0.8 (0.9-2); Alkaline Phosphatase 104 U/L (45-117); Bilirubin,Total 0.3 mg/dl (0.2-1); Globulin 3.9 gm/dl (2.5-4.0); NT Pro B Type Natriuretic Pept 236 pg/ml (0-900); Troponin I < 0.015 ng/ml (0-0.045)
--- NOTE | 2019-07-03 18:05 | XRay Report ---
XR chest 2V routine CLINICAL HISTORY: Chest pain and shortness of breath. COMPARISON STUDY: Chest radiograph and chest CT June 18, 2019. FINDINGS: Left subclavian [id number]-[id number] is in place. There are median sternotomy wires. No pneumothor ax or pleural effusion is noted. Cardiomediastinal silhouette is stable. Minimal left lung opacity fa vors atelectasis or scarring. IMPRESSION: Minimal left mid and lower lung opacity which favors atelectasis or scarring. Electronically signed by: Gonsalo Villafana M.D. 07/03/2019 6:04 PM
[2019-07-03] MEDS ORDERED: ACETAMINOPHEN 500 MG TAB PO STA (18:21)
[2019-07-03 18:36] LABS: Appearance Urine Clear (Clear); Bilirubin Urine Negative (Negative); Blood Urine Negative (Negative); Color Urine Yellow; Glucose Urine UA Negative (Negative); Ketones Urine Negative (Negative); Leukocyte Esterase Urine Negative (Negative); Nitrite Urine Negative (Negative); Protein Urine Negative (Negative); Urobilinogen Urine Negative (Negative)
[2019-07-03] MEDS ORDERED: OPTIRAY 320 125ml IV PRN (19:07)
--- NOTE | 2019-07-03 19:23 | CT Scan Report ---
CT ANGIOGRAPHY OF THE CHEST, PULMONARY EMBOLUS PROTOCOL CLINICAL HISTORY: Shortness of breath and cough. COMPARISON STUDY: Chest CT June 18, 2019. Chest radiograph performed earlier today. TECHNIQUE: Following IV administration of 120 mL of Optiray-320, helical axial images of the chest we re obtained utilizing the pulmonary embolus protocol. Maximal intensity projections and sagittal and coronal reformats were viewed on an independent 3D workstation. IV contrast was administered withou t complication. Automated exposure control was utilized for the study. A dose lowering technique wa s utilized adhering to the principles of ALARA. CT DOSE: 878.45 mGy.cm FINDINGS: Left subclavian Eavjti-f-Mrjf is in place. There are median sternotomy wires. No pulmonary emboli are identified. The heart is mildly enlarged. There is no thoracic aortic dissection. Moderat e coronary artery calcification is noted. Postoperative findings within the spine are noted. There is scoliosis. Postoperative findings within the left chest wall are noted. Subpleural opacity is unchan ged. This favors scarring. There is no consolidation to suggest pneumonia. Mild emphysema is present. There is no pneumothorax or pleural effusion. No suspicious osseous lesions within the bony thorax a re noted. Upper abdomen is unremarkable. IMPRESSION: 1. No pulmonary emboli identified. 2. No acute intrathoracic findings. No change in appearance of the chest. Subpleural left lung opacit ies suggestive of scarring or atelectasis. 2. Mild emphysema. Electronically signed by: Gonsalo Villafana M.D. 07/03/2019 7:20 PM
[2019-07-03] MEDS ORDERED: MAGNESIUM SULFATE / D5W 1 GM/100 ML BAG IV ONE (19:38)
--- NOTE | 2019-07-03 20:18 | History & Physical Report ---
Date of Service July 03, 2019 Assessment & Plan (1) Acute hypoxemic respiratory failure: COPD on previous imaging, no previous diagnosis Secondary to viral bronchitis Rule out flu Rule out underlying pulmonary hypertension Hypertensive urgency secondary to abrupt cessation of multiple home antihypertensives Possible beta-dory withdrawal Anxiety contributory Worsening migraine attack from uncontrolled blood pressure CAD sp stenting hyperlipidemia on statin Rx Chronic anemia, hemoglobin at baseline chronic pain on narcotics prediabetes as per records, hemoglobin A1c of 6.19 January 2019 Medical telemetry Supplemental O2 Baseline ABG Flu swab short course prednisone course, nebs RTC TTE rule out for pulmonary hypertension Outpatient PFTs May benefit from Pulmonary evaluation Resume home beta-dory Rx; may need gradual addition of other previous home Rx Update hemoglobin A1c DVT prophylaxis. Lovenox subcu Full code History of Present Illness Chief Complaint: High blood pressure, shortness of breath, headache Primary Care Provider: Charanjit Spann MD History obtained from patient and records. Medical history significant for CAD sp stenting, HTN, hyperlipidemia, PTSD/mood disorder, post polio syndrome/scoliosis as per records, chronic pain on narcotics, prediabetes as per records, chronic anemia baseline hemoglobin of 11, migraine. Recent confinement 2 weeks ago for respiratory failure secondary to bronchitis, acute renal failure. Patient improved upon discharge. Erratic BP at home as per records. High and low. Worsening migraine with erratic BP episodes. SBP range 120-180s as per patient. Patient seen on follow-up at PCPs office 2 days ago. SBP noted to be 100. Patient's PCP recommended stopping home JULIA inhibitor, lisinopril, HCTZ, Norvasc, and beta-dory. Patient instructed to take Norvasc as needed. Yesterday, patient noted cough symptoms productive of clear sputum with some shortness of breath. Unknown sick contacts. SBP at home 192 230s as per outpatient records unresponsive to clonidine Rx. Patient complaining of worsening shortness of breath, throbbing right-sided migraine attack , back pain symptoms. At the ER, O2 sats noted to be 80s on room air. Patient received Solu-Medrol and neb treatment for possible COPD exacerbation. 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 Allergies Allergy/AdvReac Type Severity Reaction Status Date / Time latex Allergy Intermediate Rash Verified 06/18/19 16:31 nickel Allergy Intermediate SEVERE Verified 06/18/19 16:31 DERMATITIS NSAIDS (Non-Steroidal Allergy Intermediate HX OF Verified 06/18/19 16:31 Anti-Inflamma BLEEDING ULCERS-TO AVOID aspirin AdvReac Intermediate bleeding Verified 06/18/19 16:31 ulcers Home Medications Home Medications Medication Instructions Recorded Confirmed Type atorvastatin [Lipitor] 40 mg PO QAM 12/13/18 07/03/19 History buspirone 10 mg PO TID 12/13/18 07/03/19 History hydroxyzine HCl 75 mg PO HS 12/13/18 07/03/19 History levothyroxine 75 mcg PO QAM 12/13/18 07/03/19 History tizanidine [Zanaflex] 4 mg PO BID PRN 12/13/18 07/03/19 History pramipexole [Mirapex] 0.125 mg PO HS 01/25/19 07/03/19 History tramadol [Ultram] 50 mg PO Q8 PRN 01/25/19 07/03/19 History potassium chloride [Klor-Con M20] 20 meq PO BID 03/30/19 07/03/19 History ondansetron HCl [Zofran] 8 mg PO Q6H PRN 05/12/19 07/03/19 History polyethylene glycol 3350 17 g PO DAILY PRN 05/12/19 07/03/19 History prochlorperazine maleate 10 mg PO BID PRN 05/12/19 07/03/19 History promethazine 25 mg PO Q6H PRN 05/12/19 07/03/19 History trazodone 200 mg PO HS 05/12/19 07/03/19 History Calcium 600 + D(3) 1 cap PO BID 05/23/19 07/03/19 History Ocuvite Adult 50 Plus 1 cap PO QAM 05/23/19 07/03/19 History aspirin [Aspir-81] 81 mg PO QAM 05/23/19 07/03/19 History epinephrine 0.3 mg IM Q3H PRN 05/23/19 07/03/19 History magnesium oxide 400 mg PO BID 05/23/19 07/03/19 History nitroglycerin [Nitrostat] 0.3 mg SUBLINGUAL UD 05/23/19 07/03/19 History nystatin 1 applic TOPICAL TID PRN 05/23/19 07/03/19 History olopatadine 1 drp OPHTHALMIC (EYE) QAM 05/23/19 07/03/19 History fentanyl [Duragesic] 1 patch TOPICAL [id number] 05/26/19 07/03/19 History fentanyl [Duragesic] 1 patch TOPICAL [id number] 05/26/19 07/03/19 History clonidine HCl 0.2 mg PO QAM 07/03/19 07/03/19 History mirtazapine 7.5 mg PO HS 07/03/19 07/03/19 History pantoprazole 40 mg PO QAM 07/03/19 07/03/19 History Past Med/Surg History Medical History CAD (coronary artery disease) (Chronic) Hypertension (Chronic) Myocardial Infarction (Chronic) 2 YEARS AGO Pulmonary embolism (Chronic) 2 YEARS OLD (UNSURE OF REASON) Deep vein thrombosis (Chronic) 4 YEARS AGO Migraine (Chronic) Restless leg syndrome (Chronic) Anxiety (Chronic) Depression (Chronic) Post traumatic stress disorder (Chronic) Anemia (Chronic) HX OF Hypothyroidism (Chronic) Colitis (Chronic) Osteoarthritis (Chronic) Degenerative disc disease (Chronic) Chronic back pain TO BILAT LEGS Hyperlipidemia Kidney stones Osteoarthritis SOB (shortness of breath) on exertion Surgical History History of heart artery stent (Chronic) 2017- STENT PLACED AT [facility] (DR. DAVILA) History of adenoidectomy (Chronic) History of tonsillectomy (Chronic) History of appendectomy (Chronic) History of colonoscopy (Chronic) History of esophagogastroduodenoscopy (EGD) (Chronic) Fusion of spine (Chronic) LUMBAR History of laminectomy (Chronic) LUMBAR Ovarian cyst (Chronic) X 2 History of anesthesia reaction (Chronic) WOKE UP IN MIDDLE OF SPINAL SURGERIES History of cataract surgery (Chronic) LEFT AND RIGHT History of vascular access device PORT LEFT UPPER CHEST-IN PLACE Family History Other Hypertension Social History Preferred Language: Swedish Communication Ability: Effective Personal Development Coach Required: No Beliefs That Will Affect Care: None marital status: Current Living Situation: Alone current occupational status: retired Feels Safe at Home: Yes Safety Concerns: Feels Safe At This Time Smoking Status: Never smoker Second Hand Exposure: No ; Hx Alcohol Use: No Hx Substance Use: No Review of Systems Review of Systems: As per HPI, all 10 systems reviewed, all other ROS negative Physical Exam Physical Exam: GENERAL: uncomfortable, obese, no respiratory distress SKIN: Pallor, warm HEENT: Wearing sunglasses, pale palpebral conjunctivae, no ptosis, dry buccal mucosa NECK : Supple, short neck, no tenderness CHEST : Decreased breath sounds, no tenderness HEART : RRR, no obvious murmurs ABDOMEN: Some distention, nontender EXTREMITIES : Minimal LE swelling, no LE tenderness, no other conspicuous deformities noted NEUROLOGIC : Coherent, no facial asymmetry, no other gross focality Results & Data Vital Signs (Past 12 Hours) Vital Signs Temp Pulse Pulse Resp BP BP Pulse Ox 07/03/19 20:00 165/86 H 92 07/03/19 19:50 91 07/03/19 19:40 96 07/03/19 19:37 83 18 94 07/03/19 19:32 91 H 24 158/97 H 92 07/03/19 19:30 158/97 H 90 07/03/19 19:28 154/97 H 07/03/19 19:00 90 07/03/19 18:21 70 16 94 07/03/19 18:20 94 07/03/19 17:40 71 91 07/03/19 17:30 94 07/03/19 17:20 65 92 07/03/19 17:10 67 91 07/03/19 17:00 77 94 07/03/19 16:50 75 92 07/03/19 16:40 91 07/03/19 16:30 134/92 92 07/03/19 16:20 92 07/03/19 16:10 94 07/03/19 16:09 36.8 C 73 73 10 L 153/99 H 153/99 H 87 L 07/03/19 16:08 76 18 90 07/03/19 16:04 77 10 L 153/99 H 88 L Laboratory Results Laboratory Results WBC 9.13 K/uL (4.8-10.8) 07/03/19 17:15 RBC 3.87 M/uL (4.2-5.4) L 07/03/19 17:15 Hgb 11.4 g/dL (12.0-16.0) L 07/03/19 17:15 Hct 34.2 % (37-47) L 07/03/19 17:15 MCV 88.4 fL (80-100) 07/03/19 17:15 MCH 29.5 pg (25-34) 07/03/19 17:15 MCHC 33.3 g/dL (32-36) 07/03/19 17:15 RDW Std Deviation 46.7 fL (36.4-46.3) H 07/03/19 17:15 RDW Coeff of [place] 14.6 % (11.5-14.5) H 07/03/19 17:15 Plt Count 285 K/uL (130-400) 07/03/19 17:15 MPV 9.2 fL (7.4-10.4) 07/03/19 17:15 Immature Gran % (Auto) 0.1 % 07/03/19 17:15 Neut % (Auto) 56.9 % 07/03/19 17:15 Lymph % (Auto) 28.6 % 07/03/19 17:15 Cameron % (Auto) 7.4 % 07/03/19 17:15 Eos % (Auto) 6.2 % 07/03/19 17:15 Baso % (Auto) 0.8 % 07/03/19 17:15 Immature Gran # (Auto) 0.01 K/uL (0.00-0.02) 07/03/19 17:15 Neut # (Auto) 5.19 K/uL (1.4-6.5) 07/03/19 17:15 Lymph # (Auto) 2.61 K/uL (1.2-3.4) 07/03/19 17:15 Cameron # (Auto) 0.68 K/uL (0.11-0.59) H 07/03/19 17:15 Eos # (Auto) 0.57 K/uL (0-0.5) H 07/03/19 17:15 Baso # (Auto) 0.07 K/uL (0-0.2) 07/03/19 17:15 PT 10.6 Seconds (9.0-12.0) 07/03/19 17:15 INR 1.0 (0.9-1.1) 07/03/19 17:15 APTT 25.1 Seconds (21.0-31.0) 07/03/19 17:15 PTT Ratio 0.9 07/03/19 17:15 VBG pH 7.41 (7.36-7.41) 07/03/19 17:19 VBG pCO2 46 mmHg (38-50) 07/03/19 17:19 VBG pO2 41 mmHg 07/03/19 17:19 VBG HCO3 28 mmol/L 07/03/19 17:19 VBG O2 Saturation 72.9 % 07/03/19 17:19 VBG Base Excess 2.8 mEq/L 07/03/19 17:19 Barometric Pressure 735.0 mm/Hg 07/03/19 17:19 Sodium 140 mmol/L (136-145) 07/03/19 17:15 Potassium 4.5 mmol/L (3.5-5.1) 07/03/19 17:15 Chloride 106 mmol/L (98-107) 07/03/19 17:15 Carbon Dioxide 27 mmol/L (21-32) 07/03/19 17:15 Anion Gap 7.0 (3-11) 07/03/19 17:15 BUN 15 mg/dl (7-18) 07/03/19 17:15 Creatinine 0.78 mg/dl (0.6-1.2) 07/03/19 17:15 Est Cr Clr Drug Dosing 72.8 ml/min 07/03/19 17:15 Est GFR ( Amer) 88.6 07/03/19 17:15 Est GFR (Non-Af Amer) 76.5 07/03/19 17:15 BUN/Creatinine Ratio 19.1 (10-20) 07/03/19 17:15 Glucose 119 mg/dl (70-99) H 07/03/19 17:15 Lactate 1.2 mmol/L (0.4-2.0) 07/03/19 17:26 Calcium 8.0 mg/dl (8.5-10.1) L 07/03/19 17:15 Magnesium 1.8 mg/dl (1.8-2.4) 07/03/19 17:15 Total Bilirubin 0.3 mg/dl (0.2-1) 07/03/19 17:15 Direct Bilirubin < 0.1 mg/dl (0-0.2) 07/03/19 17:15 AST 17 U/L (15-37) 07/03/19 17:15 ALT 20 U/L (12-78) 07/03/19 17:15 Alkaline Phosphatase 104 U/L (45-117) 07/03/19 17:15 Troponin I < 0.015 ng/ml (0-0.045) 07/03/19 17:15 NT-Pro-B Natriuret Pep 236 pg/ml (0-900) 07/03/19 17:15 Total Protein 7.0 gm/dl (6.4-8.2) 07/03/19 17:15 Albumin 3.1 gm/dl (3.4-5.0) L 07/03/19 17:15 Globulin 3.9 gm/dl (2.5-4.0) 07/03/19 17:15 Albumin/Globulin Ratio 0.8 (0.9-2) L 07/03/19 17:15 Lipase 46 U/L (73-393) L 07/03/19 17:15 Urine Color Yellow 07/03/19 18:15 Urine Appearance Clear (Clear) 07/03/19 18:15 Urine pH 7.0 (4.5-7.5) 07/03/19 18:15 Ur Specific [place] 1.010 (1.000-1.030) 07/03/19 18:15 Urine Protein Negative (Negative) 07/03/19 18:15 Urine Glucose (UA) Negative (Negative) 07/03/19 18:15 Urine Ketones Negative (Negative) 07/03/19 18:15 Urine Blood Negative (Negative) 07/03/19 18:15 Urine Nitrite Negative (Negative) 07/03/19 18:15 Urine Bilirubin Negative (Negative) 07/03/19 18:15 Urine Urobilinogen Negative (Negative) 07/03/19 18:15 Ur Leukocyte Esterase Negative (Negative) 07/03/19 18:[address] head: No acute intracranial CT chest: 1. No pulmonary emboli identified. 2. No acute intrathoracic findings. No change in appearance of the chest. Subpleural left lung opacities suggestive of scarring or atelectasis. 2. Mild emphysema. EKG as per my interpretation: Rate 55, sinus bradycardia, LAD, LAFB, inferior infarct
[2019-07-03] MEDS ORDERED: TRAMADOL HCL 50 MG TABLET PO STA (20:20)
--- NOTE | 2019-07-03 20:31 | Emergency Department Note ---
Entered by Corina Britt acting as a scribe for Jamaal Bentley History of Present Illness General Chief complaint: Referred by Doctor Stated complaint: REFERRED BY DOCTOR, HTN, SOB Time Seen by Provider: 07/03/19 16:31 Source: patient History of Present Illness Onset (ago): day(s) 2 Location: chest Pain Consistency: + constant Maximum Pain Intensity: 7 Current Pain Intensity: 7 Quality: + other (pressure) Associated symptoms: + denies other symptoms (denies blood with cough, blood in stool and urine), + chest pain and + cough The patient is a 69 year old female who presents to the Emergency Room with complaints of persistent chest pain that started 2 days ago. She reports that this is her 4th time in hospital since March. She believes she has some type of infection, but is not sure what the source is. She was referred to [facility] by Hola Anders, who is the patients PCP. She has experienced shortness of breath and chest pain, which she describes as a pressure in the middle of her chest. She states that the pain does not radiate anywhere else, and rates it as a 7. The patient also complains of cough with sputum, but denies the presence of blood. She denies vomiting and blood in her stool or urine. She notes that she has a port that was placed about 10 years ago for cyclic vomiting. The patient travelled 2 weeks ago to the [facility], and has had no recent surgeries or traumas. The patient has no history of smoking. Home Medications Home Medications Medication Instructions Recorded Confirmed Type atorvastatin [Lipitor] 40 mg PO QAM 12/13/18 07/03/19 History buspirone 10 mg PO TID 12/13/18 07/03/19 History hydroxyzine HCl 75 mg PO HS 12/13/18 07/03/19 History levothyroxine 75 mcg PO QAM 12/13/18 07/03/19 History tizanidine [Zanaflex] 4 mg PO BID PRN 12/13/18 07/03/19 History pramipexole [Mirapex] 0.125 mg PO HS 01/25/19 07/03/19 History tramadol [Ultram] 50 mg PO Q8 PRN 01/25/19 07/03/19 History potassium chloride [Klor-Con M20] 20 meq PO BID 03/30/19 07/03/19 History ondansetron HCl [Zofran] 8 mg PO Q6H PRN 05/12/19 07/03/19 History polyethylene glycol 3350 17 g PO DAILY PRN 05/12/19 07/03/19 History prochlorperazine maleate 10 mg PO BID PRN 05/12/19 07/03/19 History promethazine 25 mg PO Q6H PRN 05/12/19 07/03/19 History trazodone 200 mg PO HS 05/12/19 07/03/19 History Calcium 600 + D(3) 1 cap PO BID 05/23/19 07/03/19 History Ocuvite Adult 50 Plus 1 cap PO QAM 05/23/19 07/03/19 History aspirin [Aspir-81] 81 mg PO QAM 05/23/19 07/03/19 History epinephrine 0.3 mg IM Q3H PRN 05/23/19 07/03/19 History magnesium oxide 400 mg PO BID 05/23/19 07/03/19 History nitroglycerin [Nitrostat] 0.3 mg SUBLINGUAL UD 05/23/19 07/03/19 History nystatin 1 applic TOPICAL TID PRN 05/23/19 07/03/19 History olopatadine 1 drp OPHTHALMIC (EYE) QAM 05/23/19 07/03/19 History fentanyl [Duragesic] 1 patch TOPICAL CQ72HR 05/26/19 07/03/19 History fentanyl [Duragesic] 1 patch TOPICAL [id number] 05/26/19 07/03/19 History clonidine HCl 0.2 mg PO QAM 07/03/19 07/03/19 History mirtazapine 7.5 mg PO HS 07/03/19 07/03/19 History pantoprazole 40 mg PO QAM 07/03/19 07/03/19 History Allergies Allergy/AdvReac Type Severity Reaction Status Date / Time latex Allergy Intermediate Rash Verified 06/18/19 16:31 nickel Allergy Intermediate SEVERE Verified 06/18/19 16:31 DERMATITIS NSAIDS (Non-Steroidal Allergy Intermediate HX OF Verified 06/18/19 16:31 Anti-Inflamma BLEEDING ULCERS-TO AVOID aspirin AdvReac Intermediate bleeding Verified 06/18/19 16:31 ulcers Past Med/Surg History Medical History CAD (coronary artery disease) (Chronic) Hypertension (Chronic) Myocardial Infarction (Chronic) 2 YEARS AGO Pulmonary embolism (Chronic) 2 YEARS OLD (UNSURE OF REASON) Deep vein thrombosis (Chronic) 4 YEARS AGO Migraine (Chronic) Restless leg syndrome (Chronic) Anxiety (Chronic) Depression (Chronic) Post traumatic stress disorder (Chronic) Anemia (Chronic) HX OF Hypothyroidism (Chronic) Colitis (Chronic) Osteoarthritis (Chronic) Degenerative disc disease (Chronic) Chronic back pain TO BILAT LEGS Hyperlipidemia Kidney stones Osteoarthritis SOB (shortness of breath) on exertion Surgical History History of heart artery stent (Chronic) 2017- STENT PLACED AT [facility] (DR. DAVILA) History of adenoidectomy (Chronic) History of tonsillectomy (Chronic) History of appendectomy (Chronic) History of colonoscopy (Chronic) History of esophagogastroduodenoscopy (EGD) (Chronic) Fusion of spine (Chronic) LUMBAR History of laminectomy (Chronic) LUMBAR Ovarian cyst (Chronic) X 2 History of anesthesia reaction (Chronic) WOKE UP IN MIDDLE OF SPINAL SURGERIES History of cataract surgery (Chronic) LEFT AND RIGHT History of vascular access device PORT LEFT UPPER CHEST-IN PLACE Family History Other Hypertension Social History Preferred Language: British Communication Ability: Effective Life Enrichment Director Required: No Beliefs That Will Affect Care: None marital status: Current Living Situation: Alone current occupational status: retired Feels Safe at Home: Yes Smoking Status: Never smoker Second Hand Exposure: No ; Hx Alcohol Use: No Hx Substance Use: No Review of Systems See HPI for pertinent positives & negatives. and A total of 10 systems reviewed and were otherwise negative Physical Exam Vital Signs Vital Signs - 24 hr 07/03/19 16:04 07/03/19 16:08 07/03/19 16:09 Temperature 36.8 C Temperature Source Oral Sepsis Recent Fever Within 48 Hours No Sepsis New/Unexplained Change in Mental Status No Sepsis Action Taken by Nursing No Action Required Pulse Rate 77 76 73 Pulse Rate [Finger] 73 Pulse Rate from SpO2 Sensor 76 76 Respiratory Rate 10 L 18 10 L Respiratory Effort / Characteristics Blood Pressure 153/99 H 153/99 H Blood Pressure [Right Arm] 153/99 H Blood Pressure Mean 117 117 Blood Pressure Mean [Right Arm] 117 Pulse Oximetry 88 L 90 87 L Oxygen Delivery Method Room Air Nasal Cannula Room Air Oxygen Flow Rate 2 07/03/19 16:10 07/03/19 16:20 07/03/19 16:30 Temperature Temperature Source Sepsis Recent Fever Within 48 Hours Sepsis New/Unexplained Change in Mental Status Sepsis Action Taken by Nursing Pulse Rate Pulse Rate [Finger] Pulse Rate from SpO2 Sensor 77 76 74 Respiratory Rate Respiratory Effort / Characteristics Blood Pressure 134/92 Blood Pressure [Right Arm] Blood Pressure Mean 106 Blood Pressure Mean [Right Arm] Pulse Oximetry 94 92 92 Oxygen Delivery Method Nasal Cannula Nasal Cannula Nasal Cannula Oxygen Flow Rate 2 2 2 07/03/19 16:40 07/03/19 16:50 07/03/19 17:00 Temperature Temperature Source Sepsis Recent Fever Within 48 Hours Sepsis New/Unexplained Change in Mental Status Sepsis Action Taken by Nursing Pulse Rate 75 77 Pulse Rate [Finger] Pulse Rate from SpO2 Sensor 80 74 76 Respiratory Rate Respiratory Effort / Characteristics Blood Pressure Blood Pressure [Right Arm] Blood Pressure Mean Blood Pressure Mean [Right Arm] Pulse Oximetry 91 92 94 Oxygen Delivery Method Nasal Cannula Nasal Cannula Nasal Cannula Oxygen Flow Rate 2 2 2 07/03/19 17:10 07/03/19 17:20 07/03/19 17:30 Temperature Temperature Source Sepsis Recent Fever Within 48 Hours Sepsis New/Unexplained Change in Mental Status Sepsis Action Taken by Nursing Pulse Rate 67 65 Pulse Rate [Finger] Pulse Rate from SpO2 Sensor 73 66 88 Respiratory Rate Respiratory Effort / Characteristics Blood Pressure Blood Pressure [Right Arm] Blood Pressure Mean Blood Pressure Mean [Right Arm] Pulse Oximetry 91 92 94 Oxygen Delivery Method Nasal Cannula Nasal Cannula Nasal Cannula Oxygen Flow Rate 2 2 2 07/03/19 17:40 07/03/19 18:20 07/03/19 18:21 Temperature Temperature Source Sepsis Recent Fever Within 48 Hours Sepsis New/Unexplained Change in Mental Status Sepsis Action Taken by Nursing Pulse Rate 71 Pulse Rate [Finger] 70 Pulse Rate from SpO2 Sensor 71 68 Respiratory Rate 16 Respiratory Effort / Characteristics Blood Pressure Blood Pressure [Right Arm] Blood Pressure Mean Blood Pressure Mean [Right Arm] Pulse Oximetry 91 94 94 Oxygen Delivery Method Nasal Cannula Nasal Cannula Room Air Oxygen Flow Rate 2 2 07/03/19 18:30 07/03/19 18:40 07/03/19 18:50 Temperature Temperature Source Sepsis Recent Fever Within 48 Hours Sepsis New/Unexplained Change in Mental Status Sepsis Action Taken by Nursing Pulse Rate Pulse Rate [Finger] Pulse Rate from SpO2 Sensor 84 87 88 Respiratory Rate Respiratory Effort / Characteristics Blood Pressure Blood Pressure [Right Arm] Blood Pressure Mean Blood Pressure Mean [Right Arm] Pulse Oximetry Oxygen Delivery Method Nasal Cannula Nasal Cannula Nasal Cannula Oxygen Flow Rate 2 2 2 07/03/19 19:00 07/03/19 19:28 07/03/19 19:30 Temperature Temperature Source Sepsis Recent Fever Within 48 Hours Sepsis New/Unexplained Change in Mental Status Sepsis Action Taken by Nursing Pulse Rate Pulse Rate [Finger] Pulse Rate from SpO2 Sensor 87 84 86 Respiratory Rate Respiratory Effort / Characteristics Blood Pressure 154/97 H 158/97 H Blood Pressure [Right Arm] Blood Pressure Mean 116 117 Blood Pressure Mean [Right Arm] Pulse Oximetry 90 90 Oxygen Delivery Method Nasal Cannula Nasal Cannula Nasal Cannula Oxygen Flow Rate 2 2 2 07/03/19 19:32 07/03/19 19:37 07/03/19 19:40 Temperature Temperature Source Sepsis Recent Fever Within 48 Hours Sepsis New/Unexplained Change in Mental Status Sepsis Action Taken by Nursing Pulse Rate Pulse Rate [Finger] 91 H 83 Pulse Rate from SpO2 Sensor 83 Respiratory Rate 24 18 Respiratory Effort / Characteristics Non-Labored Spontaneous Blood Pressure Blood Pressure [Right Arm] 158/97 H Blood Pressure Mean Blood Pressure Mean [Right Arm] 117 Pulse Oximetry 92 94 96 Oxygen Delivery Method Nasal Cannula Nasal Cannula Nasal Cannula Oxygen Flow Rate 2 3 2 07/03/19 19:50 07/03/19 20:00 Temperature Temperature Source Sepsis Recent Fever Within 48 Hours Sepsis New/Unexplained Change in Mental Status Sepsis Action Taken by Nursing Pulse Rate Pulse Rate [Finger] Pulse Rate from SpO2 Sensor 88 92 H Respiratory Rate Respiratory Effort / Characteristics Blood Pressure 165/86 H Blood Pressure [Right Arm] Blood Pressure Mean 112 Blood Pressure Mean [Right Arm] Pulse Oximetry 91 92 Oxygen Delivery Method Nasal Cannula Nasal Cannula Oxygen Flow Rate 2 2 GENERAL: She is oriented to person, place, and time. She appears well-developed and well-nourished. She does not appear distressed. HENT: Exam performed. Head: Normocephalic and atraumatic. Right Ear: External ear normal. No mastoid tenderness. Left Ear: External ear normal. No mastoid tenderness. Mouth/Throat: The oropharynx is clear and moist. No trismus in the jaw. No dental abscesses or uvula swelling. No oropharyngeal exudate or tonsillar abscesses. EYES: Conjunctivae and EOM are normal. Pupils are equal, round, and reactive to light. Right eye exhibits no discharge. Left eye exhibits no discharge. No scleral icterus. NECK: Normal range of motion. Neck supple. No JVD present. No spinous process tenderness present. No carotid bruit present. No rigidity. No tracheal deviation and normal range of motion present. No Brudzinski's sign and no Kernig's sign noted. CV: Normal rate, regular rhythm, normal heart sounds and intact distal pulses. There is no peripheral edema. Palpable radial pulses bue. PULM/CHEST: Rales and rhonchi over the right lower lobe. No respiratory distress. No stridor. She has no wheezes. Chest Wall: She exhibits no tenderness. ABD: The abdomen is soft. Bowel sounds are normal. She has no distension. No mass is present. There is no tenderness. There is no rebound, no guarding, no Sylvester's sign and no tenderness at McBurney's point. Rovsig negative MUSC/SKEL: Normal range of motion. There is no peripheral edema, tenderness or deformity. LYMPH: No cervical adenopathy. NEURO: She is alert and oriented to person, place, and time. She has normal strength. No cranial nerve deficit or sensory deficit. Coordination and gait normal. GCS eye subscore is 4. GCS verbal subscore is 5. GCS motor subscore is 6. cerbellar tests wnl. SKIN: Skin is warm and dry. She is not diaphoretic. PSYCH: She has a normal mood and affect. Her behavior is normal. Judgment and thought content normal. Course 1632: Past medical records reviewed. The patient was evaluated in room C02B. A complete history and physical exam was performed. The patient was in the hospital from June 18- June 20 for SIRS. She had a CT of the chest w/o contrast on June 18, which showed emphysema and no focal infiltrate. Patient was found to be hypoxic on room air on arrival. She is needed placed on 2 L nasal cannula which improved her oxygen saturation. 1919: The patient's vital signs are stable, and labs and imaging are within normal limits. The patient reports minimal improvement with DuoNeb treatment and Solumedrol. I spoke to Barber Kraft, [facility] hospitalist, who agreed to take over the care of the patient. The patient verbally expressed understanding and agreement of the treatment plan. The patient will be evaluated for further treatment. Administered Medications Magnesium Sulfate/Dextrose (Magnesium Sulfate / D5w) 1 gm in 100 mls @ 100 mls/hr IV ONE ONE Stop: 07/03/19 20:37 Last Admin: 07/03/19 20:03 Dose: 100 mls/hr Documented by: [id number] Ioversol (Optiray 320 125ml) 120 ml IV ONCE PRN PRN Reason: Interaction Checking Stop: 07/07/19 19:06 Last Admin: 07/03/19 19:08 Dose: 120 ml Documented by: [id number] Discontinued Medications Acetaminophen (Tylenol) 1,000 mg PO NOW STA Stop: 07/03/19 18:22 Last Admin: 07/03/19 18:41 Dose: 1,000 mg Documented by: [id number] Albuterol (Duoneb) 3 ml INH NOW STA Stop: 07/03/19 16:27 Last Admin: 07/03/19 16:41 Dose: Not Given Documented by: [id number] Albuterol (Duoneb) 3 ml NEB NOW STA Stop: 07/03/19 17:58 Last Admin: 07/03/19 18:17 Dose: 3 ml Documented by: [id number] Albuterol (Duoneb) 3 ml NEB NOW STA Stop: 07/03/19 19:28 Last Admin: 07/03/19 19:36 Dose: 3 ml Documented by: [id number] Methylprednisolone (Solumedrol) 125 mg IV NOW STA Stop: 07/03/19 17:58 Last Admin: 07/03/19 18:44 Dose: 125 mg Documented by: [id number] Morphine Sulfate (Morphine Sulfate) 4 mg IV NOW STA Stop: 07/03/19 16:58 Last Admin: 07/03/19 17:21 Dose: 4 mg Documented by: [id number] Morphine Sulfate (Morphine Sulfate) 2 mg IV NOW STA Stop: 07/03/19 18:22 Last Admin: 07/03/19 19:30 Dose: 2 mg Documented by: [id number] Medical Decision Making Medical Records Attestation: I reviewed the patient's medical records. Home Medications Current Medication List: was personally reviewed by me Laboratory Data Attestation: I reviewed the patient's lab results. Result diagrams: 07/03/19 17:15 07/03/19 17:15 Lab Results 07/03/19 07/03/19 07/03/19 Range/Units 17:15 17:15 17:15 WBC 9.13 (4.8-10.8) K/uL RBC 3.87 L (4.2-5.4) M/uL Hgb 11.4 L (12.0-16.0) g/dL Hct 34.2 L (37-47) % MCV 88.4 (80-100) fL MCH 29.5 (25-34) pg MCHC 33.3 (32-36) g/dL RDW Std Deviation 46.7 H (36.4-46.3) fL RDW Coeff of Arden 14.6 H (11.5-14.5) % Plt Count 285 (130-400) K/uL MPV 9.2 (7.4-10.4) fL Immature Gran % (Auto) 0.1 % Neut % (Auto) 56.9 % Lymph % (Auto) 28.6 % Mckenzie % (Auto) 7.4 % Eos % (Auto) 6.2 % Baso % (Auto) 0.8 % Immature Gran # (Auto) 0.01 (0.00-0.02) K/uL Neut # (Auto) 5.19 (1.4-6.5) K/uL Lymph # (Auto) 2.61 (1.2-3.4) K/uL Mckenzie # (Auto) 0.68 H (0.11-0.59) K/uL Eos # (Auto) 0.57 H (0-0.5) K/uL Baso # (Auto) 0.07 (0-0.2) K/uL PT 10.6 (9.0-12.0) Seconds INR 1.0 (0.9-1.1) APTT 25.1 (21.0-31.0) Seconds PTT Ratio 0.9 VBG pH (7.36-7.41) VBG pCO2 (38-50) mmHg VBG pO2 mmHg VBG HCO3 mmol/L VBG O2 Saturation % VBG Base Excess mEq/L Barometric Pressure mm/Hg Sodium 140 (136-145) mmol/L Potassium 4.5 (3.5-5.1) mmol/L Chloride 106 (98-107) mmol/L Carbon Dioxide 27 (21-32) mmol/L Anion Gap 7.0 (3-11) BUN 15 (7-18) mg/dl Creatinine 0.78 (0.6-1.2) mg/dl Est Cr Clr Drug Dosing 72.8 ml/min Est GFR ( Amer) 88.6 Est GFR (Non-Af Amer) 76.5 BUN/Creatinine Ratio 19.1 (10-20) Glucose 119 H (70-99) mg/dl Lactate (0.4-2.0) mmol/L Calcium 8.0 L (8.5-10.1) mg/dl Magnesium 1.8 (1.8-2.4) mg/dl Total Bilirubin 0.3 (0.2-1) mg/dl Direct Bilirubin < 0.1 (0-0.2) mg/dl AST 17 (15-37) U/L ALT 20 (12-78) U/L Alkaline Phosphatase 104 (45-117) U/L Troponin I < 0.015 (0-0.045) ng/ml NT-Pro-B Natriuret Pep 236 (0-900) pg/ml Total Protein 7.0 (6.4-8.2) gm/dl Albumin 3.1 L (3.4-5.0) gm/dl Globulin 3.9 (2.5-4.0) gm/dl Albumin/Globulin Ratio 0.8 L (0.9-2) Lipase 46 L (73-393) U/L Urine Color Urine Appearance (Clear) Urine pH (4.5-7.5) Ur Specific [place] (1.000-1.030) Urine Protein (Negative) Urine Glucose (UA) (Negative) Urine Ketones (Negative) Urine Blood (Negative) Urine Nitrite (Negative) Urine Bilirubin (Negative) Urine Urobilinogen (Negative) Ur Leukocyte Esterase (Negative) 07/03/19 07/03/19 07/03/19 Range/Units 17:19 17:26 18:15 WBC (4.8-10.8) K/uL RBC (4.2-5.4) M/uL Hgb (12.0-16.0) g/dL Hct (37-47) % MCV (80-100) fL MCH (25-34) pg MCHC (32-36) g/dL RDW Std Deviation (36.4-46.3) fL RDW Coeff of Arden (11.5-14.5) % Plt Count (130-400) K/uL MPV (7.4-10.4) fL Immature Gran % (Auto) % Neut % (Auto) % Lymph % (Auto) % Mckenzie % (Auto) % Eos % (Auto) % Baso % (Auto) % Immature Gran # (Auto) (0.00-0.02) K/uL Neut # (Auto) (1.4-6.5) K/uL Lymph # (Auto) (1.2-3.4) K/uL Mckenzie # (Auto) (0.11-0.59) K/uL Eos # (Auto) (0-0.5) K/uL Baso # (Auto) (0-0.2) K/uL PT (9.0-12.0) Seconds INR (0.9-1.1) APTT (21.0-31.0) Seconds PTT Ratio VBG pH 7.41 (7.36-7.41) VBG pCO2 46 (38-50) mmHg VBG pO2 41 mmHg VBG HCO3 28 mmol/L VBG O2 Saturation 72.9 % VBG Base Excess 2.8 mEq/L Barometric Pressure 735.0 mm/Hg Sodium (136-145) mmol/L Potassium (3.5-5.1) mmol/L Chloride (98-107) mmol/L Carbon Dioxide (21-32) mmol/L Anion Gap (3-11) BUN (7-18) mg/dl Creatinine (0.6-1.2) mg/dl Est Cr Clr Drug Dosing ml/min Est GFR ( Amer) Est GFR (Non-Af Amer) BUN/Creatinine Ratio (10-20) Glucose (70-99) mg/dl Lactate 1.2 (0.4-2.0) mmol/L Calcium (8.5-10.1) mg/dl Magnesium (1.8-2.4) mg/dl Total Bilirubin (0.2-1) mg/dl Direct Bilirubin (0-0.2) mg/dl AST (15-37) U/L ALT (12-78) U/L Alkaline Phosphatase (45-117) U/L Troponin I (0-0.045) ng/ml NT-Pro-B Natriuret Pep (0-900) pg/ml Total Protein (6.4-8.2) gm/dl Albumin (3.4-5.0) gm/dl Globulin (2.5-4.0) gm/dl Albumin/Globulin Ratio (0.9-2) Lipase (73-393) U/L Urine Color Yellow Urine Appearance Clear (Clear) Urine pH 7.0 (4.5-7.5) Ur Specific [place] 1.010 (1.000-1.030) Urine Protein Negative (Negative) Urine Glucose (UA) Negative (Negative) Urine Ketones Negative (Negative) Urine Blood Negative (Negative) Urine Nitrite Negative (Negative) Urine Bilirubin Negative (Negative) Urine Urobilinogen Negative (Negative) Ur Leukocyte Esterase Negative (Negative) Imaging Data Radiologist's Impression: Radiology results as stated below per my review and the radiologist's interpretation: XR chest 2V routine CLINICAL HISTORY: Chest pain and shortness of breath. COMPARISON STUDY: Chest radiograph and chest CT June 18, 2019. FINDINGS: Left subclavian [id number] is in place. There are median sternotomy wires. No pneumothorax or pleural effusion is noted. Cardiomediastinal silhouette is stable. Minimal left lung opacity favors atelectasis or scarring. IMPRESSION: Minimal left mid and lower lung opacity which favors atelectasis or scarring. Electronically signed by: Gonsalo Villafana M.D. 07/03/2019 6:04 PM ECG Data Attestation: I personally reviewed and interpreted this ECG as follows: Indication: chest pain Rate (beats per minute): 57 Rhythm: sinus rhythm Findings: + other (PQ, QRS, and QTC intervals are within normal limits. ) and + T-wave inversion (in lead 3 only); no ST depression and no ST elevation Blood Pressure Blood Pressure Findings: Elevated blood pressure Blood Pressure Disposition: further management by hospitalist LU Witt 1632: Past medical records reviewed. The patient was evaluated in room C02B. A complete history and physical exam was performed. The patient was in the hospital from June 18- June 20 for SIRS. She had a CT of the chest w/o contrast on June 18, which showed emphysema and no focal infiltrate. Patient was found to be hypoxic on room air on arrival. She is needed placed on 2 L nasal cannula which improved her oxygen saturation. 1919: The patient's vital signs are stable, and labs and imaging are within normal limits. The patient reports minimal improvement with DuoNeb treatment and Solumedrol. I spoke to Barber Kraft, [facility] hospitalist, who agreed to take over the care of the patient. The patient verbally expressed understanding and agreement of the treatment plan. The patient will be evaluated for further andrew tment. Impression & Plan Hypoxia, Emphysema of lung Critical Care Time Critical Care Time: Yes Total Critical Care Time: 72 I have personally spent 72 minutes of critical care time in the direct management of this patient. This includes bedside care, interpretation of diagnostic studies, and testing, discussion with consultants, patient, and family members, and other required patient management activities. This 72 minutes is in excess of all separately billable procedures. Discharge Plan Visit Data Chief Complaint: Referred by Doctor Stated Complaint: REFERRED BY DOCTOR, HTN, SOB ED Provider: Jamaal Bentley Discharge Problem: Hypoxia, Emphysema of lung Forms Stand Alone Forms: My [facility] Prescriptions Prescriptions: No Action nitroglycerin [Nitrostat] 0.3 mg Tablet, Sublingual 0.3 mg sublingual UD RF: 0 aspirin [Aspir-81] 81 mg Tablet,Delayed Release (Dr/Ec) 81 mg PO QAM RF: 0 magnesium oxide 400 mg (241.3 mg magnesium) Tablet 400 mg PO BID RF: 0 nystatin 100,000 unit/gram Powder 1 applic TOPICAL TID PRN (Reason: BREAKOUTS) RF: 0 Calcium 600 + D(3) 600 mg calcium- 200 unit Capsule 1 cap PO BID RF: 0 olopatadine 0.2 % Drops 1 drp OPHTHALMIC (EYE) QAM RF: 0 epinephrine 0.3 mg/0.3 mL Syringe 0.3 mg IM Q3H PRN (Reason: Allergic Reaction) RF: 0 Ocuvite Adult 50 Plus 250-5-1 mg Capsule 1 cap PO QAM RF: 0 clonidine HCl 0.1 mg tablet 0.2 mg PO QAM RF: 0 pantoprazole 40 mg tablet,delayed release (DR/EC) 40 mg PO QAM RF: 0 mirtazapine 7.5 mg tablet 7.5 mg PO HS RF: 0 atorvastatin [Lipitor] 40 mg Tablet 40 mg PO QAM RF: 0 levothyroxine 75 mcg Tablet 75 mcg PO QAM RF: 0 buspirone 10 mg Tablet 10 mg PO TID RF: 0 tizanidine [Zanaflex] 4 mg Capsule 4 mg PO BID PRN (Reason: Muscle Spasm) RF: 0 hydroxyzine HCl 50 mg Tablet 75 mg PO HS RF: 0 tramadol [Ultram] 50 mg Tablet 50 mg PO Q8 PRN (Reason: severe pain) RF: 0 pramipexole [Mirapex] 0.125 mg Tablet 0.125 mg PO HS RF: 0 potassium chloride [Klor-Con M20] 20 mEq tablet,ER particles/crystals 20 meq PO BID RF: 0 prochlorperazine maleate 5 mg tablet 10 mg PO BID PRN (Reason: Nausea) RF: 0 trazodone 100 mg tablet 200 mg PO HS RF: 0 polyethylene glycol 3350 17 gram Powder In Packet 17 g PO DAILY PRN (Reason: Constipation) RF: 0 ondansetron HCl [Zofran] 8 mg Tablet 8 mg PO Q6H PRN (Reason: Nausea) RF: 0 promethazine 25 mg Tablet 25 mg PO Q6H PRN (Reason: Nausea) RF: 0 fentanyl [Duragesic] 25 mcg/hr patch 72 hour 1 patch topical [id number] RF: 0 fentanyl [Duragesic] 12 mcg/hr patch 72 hour 1 patch topical [id number] RF: 0 Discharge Problem: Emphysema of lung Qualifiers: Emphysema type: unspecified Qualified Code(s): J43.9 - Emphysema, unspecified The scribe's documentation has been prepared under my direction and personally reviewed by me in its entirety. I confirm that the note above accurately reflects all work, treatment, procedures, and medical decision making performed by me.
[2019-07-03] MEDS ORDERED: METOPROLOL TARTRATE 25 MG TAB PO SCH (20:35)
--- NOTE | 2019-07-03 21:20 | CT Scan Report ---
CT OF THE HEAD WITHOUT CONTRAST CLINICAL HISTORY: Headache. COMPARISON STUDY: Head CT April 20, 2019. CT DOSE: 537.48 mGy.cm TECHNIQUE: Helical axial images of the head were obtained without IV contrast. Automated exposure con trol was utilized for the study. A dose lowering technique was utilized adhering to the principles o f ALARA. FINDINGS: Intravascular contrast from recent contrast-enhanced chest CT is noted. No acute intracrani al hemorrhage, midline shift or mass effect is present. The ventricular system is unremarkable. The b asilar cisterns are patent. No extra-axial collections are present. There are no findings to suggest acute dural sinus thrombosis or acute territorial infarct. No significant calvarial abnormalities are present. Visualized portions of the sinuses and mastoid air cells are clear. IMPRESSION: No acute intracranial findings. Electronically signed by: Gonsalo Villafana M.D. 07/03/2019 9:19 PM
[2019-07-03 21:39] LABS: Influenza A virus by PCR Neg for Influ A (Neg); Influenza B virus by PCR Neg for Influ B (Neg)
[2019-07-03] MEDS ORDERED: GLUCAGON FOR INJ 1 MG VIAL SQ PRN (22:12)
[2019-07-03] MEDS ORDERED: fentaNYL 25 MCG/HR TDSY TD SCH (22:12)
[2019-07-03] MEDS ORDERED: CARBOHYDRATES FOR HYPOGLYCEMIA PO PRN (22:12)
[2019-07-03] MEDS ORDERED: NITROGLYCERIN SL 0.4 MG/TAB TAB SL PRN (22:12)
[2019-07-03] MEDS ORDERED: ACETAMINOPHEN 325 MG TAB PO PRN (22:12)
[2019-07-03] MEDS ORDERED: LORazepam 0.25 MG/0.5 ML VIAL IV PRN (22:12)
[2019-07-03] MEDS ORDERED: TRAMADOL HCL 50 MG TABLET PO PRN (22:12)
[2019-07-03] MEDS ORDERED: POLYETHYLENE (MIRALAX) 17 GM PACK PO PRN (22:12)
[2019-07-03] MEDS ORDERED: DEXTROSE 50% 50 ML SYRINGE IV PRN (22:12)
[2019-07-03] MEDS ORDERED: INSULIN GLARGINE SOLOSTAR 100 UNITS/ML 3 ML PEN SQ STA (22:12)
[2019-07-03] MEDS ORDERED: GLUCOSE 40% GEL 15 GM TUBE PO PRN (22:12)
[2019-07-03] MEDS ORDERED: fentaNYL 12 MCG/HR TDSY TD SCH (22:12)
[2019-07-03] MEDS ORDERED: GLUCOSE 10 TABS/TUBE PO PRN (22:12)
[2019-07-03] MEDS ORDERED: SODIUM CHLORIDE 0.45 % 1,000 ML IV STA (22:12)
[2019-07-03] MEDS ORDERED: PROMETHAZINE HCL 12.5 MG in SODIUM CHLORIDE 0.9% 50 ML IV PRN (22:12)
[2019-07-03 23:07] LABS: Base Excess ABG -1.1 mEq/L (-9-1.8); HCO3 ABG 24 mmol/L (19-24); Oxygen Saturation ABG 92.7 % (90-95); PCO2 ABG 40 mmHg (35-46); PO2 ABG 67 mm/Hg (80-95)
[2019-07-03 23:13] LABS: Allen Test Pos (Pos)
[2019-07-03] MEDS: INSULIN ASPART 100 UNITS/ML 3 ML PEN SC SCH (23:42)
[2019-07-03] MEDS: MIRTAZAPINE TAB 15 MG TAB PO SCH (23:43)
[2019-07-04] MEDS ORDERED: fentaNYL 25 MCG/HR TDSY TD SCH ×2 (00:20→01:00)
[2019-07-04] MEDS ORDERED: [UNRECOGNIZED DRUG - REMARK] SCH (01:00)
[2019-07-04] MEDS ORDERED: fentaNYL 12 MCG/HR TDSY TD SCH (01:00)
[2019-07-04] MEDS ORDERED: XOPENEX/ATROVENT 1.25mg/0.5MG NEB COMBO NEB SCH (01:00)
[2019-07-04] MEDS: LEVALBUTEROL 1.25MG/0.5ML NEB INH SCH ×3 (01:04→12:51)
[2019-07-04] MEDS: IPRATROPIUM BROMIDE NEB SOLN 0.02% 2.5 ML VIAL INH SCH ×3 (01:04→12:51)
[2019-07-04] MEDS: MoRPHine SULFATE 4 MG/ML 1 ML CARP\\VIAL IV PRN ×4 (03:22→21:55)
[2019-07-04] MEDS: TIZANIDINE HCL 4 MG TABLET PO PRN ×2 (05:44→18:04)
[2019-07-04 06:25] LABS: Basophils # (auto) 0.01 K/uL (0-0.2); Basophils % (auto) 0.1 %; Hematocrit (blood only) 38.4 % (37-47); Hemoglobin 12.7 g/dL (12.0-16.0); Immature Granulocytes # (auto) 0.03 K/uL (0.00-0.02); Immature Granulocytes % (auto) 0.2 %; Lymphocytes # (auto) 1.49 K/uL (1.2-3.4); Lymphocytes % (auto) 12.1 %; Mean Corpuscular Hgb Conc 33.1 g/dL (32-36); Mean Corpuscular Volume 87.7 fL (80-100); Mean Platelet Volume 9.5 fL (7.4-10.4); Monocytes # (auto) 0.18 K/uL (0.11-0.59); Monocytes % (auto) 1.5 %; Neutrophils # (auto) 10.57 K/uL (1.4-6.5); Neutrophils % (auto) 86.1 %; Platelet Count 282 K/uL (130-400); RDW Coefficient of Variation 14.4 % (11.5-14.5); RDW Standard Deviation 45.9 fL (36.4-46.3); Red Blood Count 4.38 M/uL (4.2-5.4); White Blood Count 12.28 K/uL (4.8-10.8)
[2019-07-04 07:02] LABS: BUN Creatinine Ratio 14.1 (10-20); Blood Urea Nitrogen 13 mg/dl (7-18); Calcium 9.7 mg/dl (8.5-10.1); Carbon Dioxide 27 mmol/L (21-32); Chloride 104 mmol/L (98-107); Creatinine Clr Calc Pharmacy 62.7 ml/min; Est GFR (African American) 73.6; Est GFR (Non-African American) 63.5; Glucose 191 mg/dl (70-99); Sodium 138 mmol/L (136-145)
[2019-07-04 07:07] LABS: Troponin I < 0.015 ng/ml (0-0.045)
[2019-07-04 07:15] LABS: Estimated Average Glucose 137 mg/dl; Hemoglobin A1C 6.4 % (4.5-5.6)
[2019-07-04] MEDS: CHECK FENTANYL SCH ×4 (07:44→17:01)
[2019-07-04] MEDS ORDERED: INSULIN GLARGINE SOLOSTAR 100 UNITS/ML 3 ML PEN SQ SCH (09:00)
[2019-07-04] MEDS: DOCUSATE SODIUM 100 MG CAP PO SCH (09:19)
[2019-07-04] MEDS: predniSONE 20 MG TAB PO SCH (09:19)
[2019-07-04] MEDS: CEROVITE ADV FORMULA TAB PO SCH (09:20)
[2019-07-04] MEDS: ENOXAPARIN INJ 30 MG/0.3 ML SYR SQ SCH (09:20)
[2019-07-04] MEDS: PANTOprazole 40 MG TAB PO SCH (09:20)
[2019-07-04] MEDS: ASPIRIN 81 MG ECTAB PO SCH (09:21)
[2019-07-04] MEDS: ATORVASTATIN 40 MG TAB PO SCH (09:21)
[2019-07-04] MEDS: INSULIN GLARGINE SOLOSTAR 100 UNITS/ML 3 ML PEN SQ SCH (09:22)
[2019-07-04] MEDS: INSULIN ASPART 100 UNITS/ML 3 ML PEN SC SCH ×4 (09:23→20:33)
--- NOTE | 2019-07-04 12:37 | Hospitalist Progress Note ---
Date of Service July 04, 2019 Assessment & Plan (1) Hypertensive urgency: Was brought to the ER after she stopped taking all her BP meds that was instructed by her physician She Said that her BP has been running high in the last few days Pt said that she has episodic HTN, tachycardia, diaphoresis and anxiety SBP at home was in the 230 Will resume BP meds Will review outpatient chart to check if she had work up done for Pheochromocytoma ECHO showed no wall motion abnormality and EF above 70 Acute respiratory failure with hypoxia Oxygen sat 87 on RA and RR 10 on admission Possible related to COPD exacerbation CTA chest negative for PE CXR showed minimal left mid and lower lung opacity which favors atelectasis or scarring. Received IV solumedrol IV in the ER Continue prednisone for now Headache Mostly related to Elevated BP CT head negative for acute intracranial abnormality Continue current management CAD (coronary artery disease): H/o stent in 2017 Denies any chest pain Continue aspirin, statin, lopressor with hold parameters Hypothyroidism: Continue levothyroxine Mood disorder: Continue Buspar, trazodone HS Restless leg syndrome: Continue Mirapex DVT Ppx: On Lovenox subq Code status: FULL PCP: Maria Ines High Pt was was seen and examined Sitting in bed with no distress Pt said that she is having headache when her BP elevates She said that the morphine helps with the headache but would like to get it more frequent I explained to her that i will not give her morphine q4hr because it will increase her risk of dependence She said that her blood pressure fluctuates from high and low Denies any chest pain, palpitation, dizziness and fever Physical Exam Physical Exam: General- No acute distress Head- atraumatic Eyes- PERRL, EOMI, ENT- oropharynx clear Neck- supple, no JVD Lungs- clear to auscultation Heart- regular rhythm; no murmur Abdomen- normal bowel sounds, soft, nontender Extremities- no calf tenderness Neuro- alert, oriented x 3; PERRL, EOMI; no facial palsy; no dysarthria Skin- warm & dry Results & Data Vital Signs (Past 12 Hours) Vital Signs Temp Pulse Pulse Resp BP BP Pulse Ox 07/04/19 11:02 36.6 C 66 18 177/78 H 91 07/04/19 07:54 36.6 C 79 18 160/74 H 90 07/04/19 07:29 63 07/04/19 07:01 57 L 16 96 07/04/19 04:00 36.6 C 74 20 147/73 H 93 07/04/19 01:04 80 18 95
[2019-07-04] MEDS ORDERED: HydrALAZINE HCL 20 MG/ML VIAL IV PRN (13:55)
[2019-07-04] MEDS ORDERED: LEVALBUTEROL 1.25MG/0.5ML NEB INH PRN (13:57)
[2019-07-04] MEDS ORDERED: IPRATROPIUM BROMIDE NEB SOLN 0.02% 2.5 ML VIAL INH PRN (13:57)
[2019-07-04] MEDS: AMLODIPINE BESYLATE 5 MG TAB PO SCH (14:28)
[2019-07-04] MEDS: PRAMIPEXOLE DIHYDROCHLO 0.25 MG TAB PO SCH (20:19)
[2019-07-04] MEDS: TRAZODONE HCL 100 MG TAB PO SCH (20:20)
[2019-07-04] MEDS: MIRTAZAPINE TAB 15 MG TAB PO SCH (21:18)
[2019-07-05] MEDS: CHECK FENTANYL SCH ×6 (01:08→16:25)
[2019-07-05] MEDS ORDERED: fentaNYL 25 MCG/HR TDSY TD ONE (01:15)
[2019-07-05] MEDS: MoRPHine SULFATE 4 MG/ML 1 ML CARP\\VIAL IV PRN ×3 (05:32→18:30)
[2019-07-05] MEDS: ATORVASTATIN 40 MG TAB PO SCH (08:17)
[2019-07-05] MEDS: ASPIRIN 81 MG ECTAB PO SCH (08:18)
[2019-07-05] MEDS: predniSONE 20 MG TAB PO SCH (08:18)
[2019-07-05] MEDS: AMLODIPINE BESYLATE 5 MG TAB PO SCH (08:18)
[2019-07-05] MEDS: PANTOprazole 40 MG TAB PO SCH (08:18)
[2019-07-05] MEDS: DOCUSATE SODIUM 100 MG CAP PO SCH (08:18)
[2019-07-05] MEDS: CEROVITE ADV FORMULA TAB PO SCH (08:18)
[2019-07-05] MEDS: INSULIN ASPART 100 UNITS/ML 3 ML PEN SC SCH ×3 (08:22→16:58)
[2019-07-05] MEDS: INSULIN GLARGINE SOLOSTAR 100 UNITS/ML 3 ML PEN SQ SCH (08:23)
[2019-07-05] MEDS: ENOXAPARIN INJ 30 MG/0.3 ML SYR SQ SCH (08:24)
[2019-07-05] MEDS ORDERED: hydroCHLOROthiazide 25 MG TAB PO SCH (09:15)
--- NOTE | 2019-07-05 09:55 | Nephrology Consultation ---
Date of Consultation July 05, 2019 Assessment & Plan (1) Hypertensive urgency: Patient with labile hypertension recently. Based on home blood pressure readings, blood pressure has been uncontrolled for over a week. Recommend starting hydrochlorthiazide 25 mg daily. Target systolic blood pressure less than 140. Patient's headache and back pain should be controlled as this can aggravate blood pressure. Patient should not take clonidine on a as needed basis as it causes rebound hypertension. Patient can be discharged if blood pressure improves. She will continue further work-up for causes of secondary hypertension as an outpatient when she follows up with Dr. Becker (2) Hypoxia: Likely due to bronchitis. Patient is on prednisone which also increase his blood pressure. Recommend down titrating or even stopping prednisone. Pat ient saturating well on room air. History of Present Illness Reason for Consultation: Uncontrolled hypertension Requesting Physician: Carissa Trevino MD Attending Physician: Carissa Trevino MD History of Present Illness This is a 69yoF with PMH of CAD sp stenting, HTN, hyperlipidemia, PTSD/mood disorder, post polio syndrome/scoliosis as per records, chronic pain on narc otics, prediabetes as per records, chronic anemia baseline hemoglobin of 11 and migraine who was admitted on 07/03/2019 with uncontrolled hypertension. Had systolic blood pressure was 200s. I am seeing her for labile hypertension. She was recently admitted for bronchitis and acute renal failure in setting of sepsis. Her antihypertensives were stopped. She was previously on amlodipine, metoprolol, hydrochlorothiazide and lisinopril. 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 Patient has a log of home blood pressures and these have been consistently high between 160- 190 for the past 1 week. She was admitted this time again with shortness of breath and cough. Blood pressure is improving now in the 160s. She is on amlodipine 5 mg daily. She is also complaining of headache and back pain. No vomiting or diarrhea. No urinary symptoms. Allergies Allergy/AdvReac Type Severity Reaction Status Date / Time latex Allergy Intermediate Rash Verified 06/18/19 16:31 nickel Allergy Intermediate SEVERE Verified 06/18/19 16:31 DERMATITIS NSAIDS (Non-Steroidal Allergy Intermediate HX OF Verified 06/18/19 16:31 Anti-Inflamma BLEEDING ULCERS-TO AVOID aspirin AdvReac Intermediate bleeding Verified 06/18/19 16:31 ulcers Home Medications Home Medications Medication Instructions Recorded Confirmed Type atorvastatin [Lipitor] 40 mg PO QAM 12/13/18 07/03/19 History buspirone 10 mg PO TID 12/13/18 07/03/19 History hydroxyzine HCl 75 mg PO HS 12/13/18 07/03/19 History levothyroxine 75 mcg PO QAM 12/13/18 07/03/19 History tizanidine [Zanaflex] 4 mg PO BID PRN 12/13/18 07/03/19 History pramipexole [Mirapex] 0.125 mg PO HS 01/25/19 07/03/19 History tramadol [Ultram] 50 mg PO Q8 PRN 01/25/19 07/03/19 History potassium chloride [Klor-Con M20] 20 meq PO BID 03/30/19 07/03/19 History ondansetron HCl [Zofran] 8 mg PO Q6H PRN 05/12/19 07/03/19 History polyethylene glycol 3350 17 g PO DAILY PRN 05/12/19 07/03/19 History prochlorperazine maleate 10 mg PO BID PRN 05/12/19 07/03/19 History promethazine 25 mg PO Q6H PRN 05/12/19 07/03/19 History trazodone 200 mg PO HS 05/12/19 07/03/19 History Calcium 600 + D(3) 1 cap PO BID 05/23/19 07/03/19 History Ocuvite Adult 50 Plus 1 cap PO QAM 05/23/19 07/03/19 History aspirin [Aspir-81] 81 mg PO QAM 05/23/19 07/03/19 History epinephrine 0.3 mg IM Q3H PRN 05/23/19 07/03/19 History magnesium oxide 400 mg PO BID 05/23/19 07/03/19 History nitroglycerin [Nitrostat] 0.3 mg SUBLINGUAL UD 05/23/19 07/03/19 History nystatin 1 applic TOPICAL TID PRN 05/23/19 07/03/19 History olopatadine 1 drp OPHTHALMIC (EYE) QAM 05/23/19 07/03/19 History fentanyl [Duragesic] 1 patch TOPICAL [id number] 05/26/19 07/03/19 History fentanyl [Duragesic] 1 patch TOPICAL [id number] 05/26/19 07/03/19 History clonidine HCl 0.2 mg PO QAM 07/03/19 07/03/19 History mirtazapine 7.5 mg PO HS 07/03/19 07/03/19 History pantoprazole 40 mg PO QAM 07/03/19 07/03/19 History Patient History Medical History CAD (coronary artery disease) (Chronic) Hypertension (Chronic) Myocardial Infarction (Chronic) 2 YEARS AGO Pulmonary embolism (Chronic) 2 YEARS OLD (UNSURE OF REASON) Deep vein thrombosis (Chronic) 4 YEARS AGO Migraine (Chronic) Restless leg syndrome (Chronic) Anxiety (Chronic) Depression (Chronic) Post traumatic stress disorder (Chronic) Anemia (Chronic) HX OF Hypothyroidism (Chronic) Colitis (Chronic) Osteoarthritis (Chronic) Degenerative disc disease (Chronic) Chronic back pain TO BILAT LEGS Hyperlipidemia Kidney stones Osteoarthritis SOB (shortness of breath) on exertion Surgical History History of heart artery stent (Chronic) 2017- STENT PLACED AT [facility] (DR. DAVILA) History of adenoidectomy (Chronic) History of tonsillectomy (Chronic) History of appendectomy (Chronic) History of colonoscopy (Chronic) History of esophagogastroduodenoscopy (EGD) (Chronic) Fusion of spine (Chronic) LUMBAR History of laminectomy (Chronic) LUMBAR Ovarian cyst (Chronic) X 2 History of anesthesia reaction (Chronic) WOKE UP IN MIDDLE OF SPINAL SURGERIES History of cataract surgery (Chronic) LEFT AND RIGHT History of vascular access device PORT LEFT UPPER CHEST-IN PLACE Family History Other Hypertension Social History Preferred Language: Spanish Communication Ability: Effective Nozzle Tender Required: No Beliefs That Will Affect Care: None marital status: Single Current Living Situation: Alone current occupational status: retired Feels Safe at Home: Yes Safety Concerns: Feels Safe At This Time Smoking Status: Never smoker Second Hand Exposure: No ; Hx Alcohol Use: No Hx Substance Use: No Review of Systems Review of Systems: All systems reviewed & are unremarkable except as noted in HPI & below Physical Exam Physical Exam: General exam: Appears comfortable, no acute distress HEENT: Pupils are equal and reactive to light Neck: No JVD, neck is supple trachea is midline Respiratory system: Clear breath sounds bilaterally. Gastrointestinal: Abdomen is soft, non distended, non tender, bowel sounds are present CVS: Regular rate and rhythm. No murmurs, rubs or gallops Musculoskeletal: No joint or muscle tenderness Extremities: Non tender, no edema, peripheral pulses are present Neuro: Oriented, no tremors, no focal neurological deficits Skin: No rashes Results & Data Vital Signs (Past 12 Hours) Vital Signs Temp Pulse Pulse Resp BP BP Pulse Ox 07/05/19 08:30 80 158/75 H 07/05/19 07:00 66 07/05/19 06:39 36.4 C 70 18 176/99 H 92 07/05/19 04:00 36.5 C 69 20 170/82 H 92 07/04/19 23:55 69 07/04/19 23:24 36.5 C 72 21 159/88 H 90 Laboratory Results Laboratory Results - last 24 hr 07/04/19 07/04/19 07/04/19 11:27 16:20 20:31 POC Glucose 209 H 175 H 149 H 07/05/19 07:38 POC Glucose 113 H
[2019-07-05] MEDS ORDERED: LORazepam 0.5 MG TAB PO PRN (16:55)
[2019-07-05] MEDS: TIZANIDINE HCL 4 MG TABLET PO PRN (19:32)
--- NOTE | 2019-07-05 19:32 | Hospitalist Progress Note ---
Date of Service July 05, 2019 Assessment & Plan (1) Hypertensive urgency: Was brought to the ER after she stopped taking all her BP meds that was instructed by her physician She Said that her BP has been running high in the last few days Pt said that she has episodic HTN, tachycardia, diaphoresis and anxiety SBP at home was in the 230 On Amlodipine 5 mg daily Nephro on board recommended to resume HCTZ 25 mg daily Patient should not take clonidine on a as needed basis as it causes rebound hypertension. She will need outpatient work-up for causes of secondary hypertension ECHO showed no wall motion abnormality and EF above 70 Advised pt to follow a low salt diet Follow up with your PCP Dr. Spann on 07/07 @ 9:45 AM Acute respiratory failure with hypoxia Oxygen sat 87 on RA and RR 10 on admission Possible related to COPD exacerbation CTA chest negative for PE CXR showed minimal left mid and lower lung opacity which favors atelectasis or scarring. Received IV solumedrol IV in the ER Will dicharge on a low dose of prednisone Headache Mostly related to Elevated BP CT head negative for acute intracranial abnormality Continue current management CAD (coronary artery disease): H/o stent in 2017 Denies any chest pain Continue aspirin, statin, lopressor with hold parameters Hypothyroidism: Continue levothyroxine Mood disorder: Continue Buspar, trazodone HS Restless leg syndrome: Continue Mirapex DVT Ppx: On Lovenox subq Code status: FULL Disposition Discharge home today Subjective Pt was seen and examined Lying in bed with no distress Pt said that she is very anxious about her BP She is asking for something to calm her down I explained to her that anxiety will make her BP elevates She is very anxious to go home today Denies any chest pain, palpitation, dizziness and SOB Physical Exam Physical Exam: General- No acute distress Head- atraumatic Eyes- PERRL, EOMI, ENT- oropharynx clear Neck- supple, no JVD Lungs- clear to auscultation Heart- regular rhythm; no murmur Abdomen- normal bowel sounds, soft, nontender Extremities- no calf tenderness Neuro- alert, oriented x 3; PERRL, EOMI; no facial palsy; no dysarthria Skin- warm & dry Results & Data Vital Signs (Past 12 Hours) Vital Signs Temp Pulse Pulse Resp BP BP Pulse Ox 07/05/19 18:50 36.5 C 81 18 161/97 H 94 07/05/19 16:36 83 07/05/19 16:31 69 07/05/19 16:23 160/92 H 07/05/19 15:01 36.6 C 74 17 173/83 H 92 07/05/19 14:17 78 16 167/84 H 07/05/19 11:55 187/94 H 07/05/19 11:00 36.8 C 75 18 93 07/05/19 08:30 80 158/75 H
[2019-07-05] MEDS: TRAZODONE HCL 100 MG TAB PO SCH (19:36)
[2019-07-05] MEDS: PRAMIPEXOLE DIHYDROCHLO 0.25 MG TAB PO SCH (19:38)
[2019-07-05] MEDS: MIRTAZAPINE TAB 15 MG TAB PO SCH (19:40)
[2019-07-07] MEDS ORDERED: 25 mcg patch: fentaNYL PATCH REMOVE & WASTE SCH (00:59)
--- NOTE | 2019-07-08 09:27 | Discharge Summary ---
Date of Service July 05, 2019 Admission HPI Per Admitting Provider History obtained from patient and records. Medical history significant for CAD sp stenting, HTN, hyperlipidemia, PTSD/mood disorder, post polio syndrome/scoliosis as per records, chronic pain on narcotics, prediabetes as per records, chronic anemia baseline hemoglobin of 11, migraine. Recent confinement 2 weeks ago for respiratory failure secondary to bronchitis, acute renal failure. Patient improved upon discharge. Erratic BP at home as per records. High and low. Worsening migraine with erratic BP episodes. SBP range 120-180s as per patient. Patient seen on follow-up at PCPs office 2 days ago. SBP noted to be 100. Patient's PCP recommended stopping home JULIA inhibitor, lisinopril, HCTZ, Norvasc, and beta-dory. Patient instructed to take Norvasc as needed. Yesterday, patient noted cough symptoms productive of clear sputum with some shortness of breath. Unknown sick contacts. SBP at home 192 230s as per outpatient records unresponsive to clonidine Rx. Patient complaining of worsening shortness of breath, throbbing right-sided migraine attack , back pain symptoms. At the ER, O2 sats noted to be 80s on room air. Patient received Solu-Medrol and neb treatment for possible COPD exacerbation. 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 Admission Exam Per Admitting Provider GENERAL: uncomfortable, obese, no respiratory distress SKIN: Pallor, warm HEENT: Wearing sunglasses, pale palpebral conjunctivae, no ptosis, dry buccal mucosa NECK : Supple, short neck, no tenderness CHEST : Decreased breath sounds, no tenderness HEART : RRR, no obvious murmurs ABDOMEN: Some distention, nontender EXTREMITIES : Minimal LE swelling, no LE tenderness, no other conspicuous deformities noted NEUROLOGIC : Coherent, no facial asymmetry, no other gross focality Principal Diagnosis Hypertensive Urgency Acute respiratory failure with hypoxia Headache Restless leg syndrome Hypothyroidism CAD (coronary artery disease) Mood disorder Discharge Exam General- No acute distress Head- atraumatic Eyes- PERRL, EOMI, ENT- oropharynx clear Neck- supple, no JVD Lungs- clear to auscultation Heart- regular rhythm; no murmur Abdomen- normal bowel sounds, soft, nontender Extremities- no calf tenderness Neuro- alert, oriented x 3; PERRL, EOMI; no facial palsy; no dysarthria Skin- warm & dry Discharge Data Allergies Allergy/AdvReac Type Severity Reaction Status Date / Time latex Allergy Intermediate Rash Verified 06/18/19 16:31 nickel Allergy Intermediate SEVERE Verified 06/18/19 16:31 DERMATITIS NSAIDS (Non-Steroidal Allergy Intermediate HX OF Verified 06/18/19 16:31 Anti-Inflamma BLEEDING ULCERS-TO AVOID aspirin AdvReac Intermediate bleeding Verified 06/18/19 16:31 ulcers Consultations 07/03/19 19:27 ED Decision to Admit Stat 07/05/19 08:25 Consult Nephrology Routine Ordered Studies 07/03/19 18:04 CT angio chest PE protocol Stat 07/03/19 20:16 CT head/brain wo con Stat CT OF THE HEAD WITHOUT CONTRAST CLINICAL HISTORY: Headache. COMPARISON STUDY: Head CT April 20, 2019. CT DOSE: 537.48 mGy.cm TECHNIQUE: Helical axial images of the head were obtained without IV contrast. Automated exposure control was utilized for the study. A dose lowering technique was utilized adhering to the principles of ALARA. FINDINGS: Intravascular contrast from recent contrast-enhanced chest CT is noted. No acute intracranial hemorrhage, midline shift or mass effect is present. The ventricular system is unremarkable. The basilar cisterns are patent. No extra-axial collections are present. There are no findings to suggest acute dural sinus thrombosis or acute territorial infarct. No significant calvarial abnormalities are present. Visualized portions of the sinuses and mastoid air cells are clear. IMPRESSION: No acute intracranial findings. Electronically signed by: Gonsalo Villafana M.D. 07/03/2019 9:19 PM Dictated: 07/03/192116 Transcribed: 07/03/192116 CT ANGIOGRAPHY OF THE CHEST, PULMONARY EMBOLUS PROTOCOL CLINICAL HISTORY: Shortness of breath and cough. COMPARISON STUDY: Chest CT June 18, 2019. Chest radiograph performed earlier today. TECHNIQUE: Following IV administration of 120 mL of Optiray-320, helical axial images of the chest were obtained utilizing the pulmonary embolus protocol. Maximal intensity projections and sagittal and coronal reformats were viewed on an independent 3D workstation. IV contrast was administered without complication. Automated exposure control was utilized for the study. A dose lowering technique was utilized adhering to the principles of ALARA. CT DOSE: 878.45 mGy.cm FINDINGS: Left subclavian Ypxgwx-d-Obop is in place. There are median sternotomy wires. No pulmonary emboli are identified. The heart is mildly enlarged. There is no thoracic aortic dissection. Moderate coronary artery calcification is noted. Postoperative findings within the spine are noted. There is scoliosis. Postoperative findings within the left chest wall are noted. Subpleural opacity is unchanged. This favors scarring. There is no consolidation to suggest pneumonia. Mild emphysema is present. There is no pneumothorax or pleural effusion. No suspicious osseous lesions within the bony thorax are noted. Upper abdomen is unremarkable. IMPRESSION: 1. No pulmonary emboli identified. 2. No acute intrathoracic findings. No change in appearance of the chest. Subpleural left lung opacities suggestive of scarring or atelectasis. 2. Mild emphysema. Electronically signed by: Gonsalo Villafana M.D. 07/03/2019 7:20 PM Dictated: 07/03/191912 Transcribed: 07/03/191912 XR chest 2V routine CLINICAL HISTORY: Chest pain and shortness of breath. COMPARISON STUDY: Chest radiograph and chest CT June 18, 2019. FINDINGS: Left subclavian Oqrocx-f-Dudn is in place. There are median sternotomy wires. No pneumothorax or pleural effusion is noted. Cardiomediastinal silhouette is stable. Minimal left lung opacity favors atelectasis or scarring. IMPRESSION: Minimal left mid and lower lung opacity which favors atelectasis or scarring. Electronically signed by: Gonsalo Villafana M.D. 07/03/2019 6:04 PM Dictated: 07/03/191800 Transcribed: 07/03/191800 Hospital Course (1) Hypertensive urgency: Was brought to the ER after she stopped taking all her BP meds that was instructed by her physician She Said that her BP has been running high in the last few days Pt said that she has episodic HTN, tachycardia, diaphoresis and anxiety SBP at home was in the 230 On Amlodipine 5 mg daily Nephro on board recommended to resume HCTZ 25 mg daily Patient should not take clonidine on a as needed basis as it causes rebound hypertension. She will need outpatient work-up for causes of secondary hypertension ECHO showed no wall motion abnormality and EF above 70 Advised pt to follow a low salt diet Follow up with your PCP Dr. Spann on 07/07 @ 9:45 AM Acute respiratory failure with hypoxia Oxygen sat 87 on RA and RR 10 on admission Possible related to COPD exacerbation CTA chest negative for PE CXR showed minimal left mid and lower lung opacity which favors atelectasis or scarring. Received IV solumedrol IV in the ER Will dicharge on a low dose of prednisone Headache Mostly related to Elevated BP CT head negative for acute intracranial abnormality Continue current management CAD (coronary artery disease): H/o stent in 2017 Denies any chest pain Continue aspirin, statin, lopressor with hold parameters Hypothyroidism: Continue levothyroxine Mood disorder: Continue Buspar, trazodone HS Restless leg syndrome: Continue Mirapex DVT Ppx: On Lovenox subq Code status: FULL Disposition Discharge home today Total Time Total Time Spent Total Time Spent (In Minutes): 35 minutes Total Time Includes: Examination of the Patient, Discharge Planning, Medication Reconciliation, Communication With Other Providers and Other Discharge Plan Discharge Items Patient Disposition: Home - Self-Care Reason For Visit: RESP FAILURE Discharge Diagnosis: Hypertensive Urgency Activity: Resume your previous activity Non-emergency contact: Primary Care Provider and Denture Contour Wire Specialist Call non-emergency contact if: you have any medication questions and your temperature is above 101 Follow-up/Referrals: Charanjit Spann MD [Primary Care Provider] - Diet: Heart Healthy and Low Sodium (2gm) Addtl Attending Provider Instructions: Follow up with your primary care provider Dr. Spann on 07/07 @ 9:45 AM Follow up a low sat diet Monitor Blood pressure and bring your blood pressure log at your next follow appointment with your physician Pending Studies at Discharge: No Stand-Alone Forms: My [facility] Medications and DC Order Prescriptions: New amlodipine [Norvasc] 5 mg Tablet 5 mg PO QAM 30 Days Qty: 30 RF: 0 hydrochlorothiazide 25 mg Tablet 25 mg PO QAM 30 Days Qty: 30 RF: 0 Continued nitroglycerin [Nitrostat] 0.3 mg Tablet, Sublingual 0.3 mg sublingual UD RF: 0 aspirin [Aspir-81] 81 mg Tablet,Delayed Release (Dr/Ec) 81 mg PO QAM RF: 0 magnesium oxide 400 mg (241.3 mg magnesium) Tablet 400 mg PO BID RF: 0 nystatin 100,000 unit/gram Powder 1 applic TOPICAL TID PRN (Reason: BREAKOUTS) RF: 0 Calcium 600 + D(3) 600 mg calcium- 200 unit Capsule 1 cap PO BID RF: 0 olopatadine 0.2 % Drops 1 drp OPHTHALMIC (EYE) QAM RF: 0 epinephrine 0.3 mg/0.3 mL Syringe 0.3 mg IM Q3H PRN (Reason: Allergic Reaction) RF: 0 Ocuvite Adult 50 Plus 250-5-1 mg Capsule 1 cap PO QAM RF: 0 pantoprazole 40 mg tablet,delayed release (DR/EC) 40 mg PO QAM RF: 0 mirtazapine 7.5 mg tablet 7.5 mg PO HS RF: 0 atorvastatin [Lipitor] 40 mg Tablet 40 mg PO QAM RF: 0 levothyroxine 75 mcg Tablet 75 mcg PO QAM RF: 0 buspirone 10 mg Tablet 10 mg PO TID RF: 0 tizanidine [Zanaflex] 4 mg Capsule 4 mg PO BID PRN (Reason: Muscle Spasm) RF: 0 hydroxyzine HCl 50 mg Tablet 75 mg PO HS RF: 0 tramadol [Ultram] 50 mg Tablet 50 mg PO Q8 PRN (Reason: severe pain) RF: 0 pramipexole [Mirapex] 0.125 mg Tablet 0.125 mg PO HS RF: 0 potassium chloride [Klor-Con M20] 20 mEq tablet,ER particles/crystals 20 meq PO BID RF: 0 prochlorperazine maleate 5 mg tablet 10 mg PO BID PRN (Reason: Nausea) RF: 0 trazodone 100 mg tablet 200 mg PO HS RF: 0 polyethylene glycol 3350 17 gram Powder In Packet 17 g PO DAILY PRN (Reason: Constipation) RF: 0 ondansetron HCl [Zofran] 8 mg Tablet 8 mg PO Q6H PRN (Reason: Nausea) RF: 0 promethazine 25 mg Tablet 25 mg PO Q6H PRN (Reason: Nausea) RF: 0 fentanyl [Duragesic] 25 mcg/hr patch 72 hour 1 patch topical [id number] RF: 0 fentanyl [Duragesic] 12 mcg/hr patch 72 hour 1 patch topical [id number] RF: 0 Discontinued clonidine HCl 0.1 mg tablet 0.2 mg PO QAM RF: 0 Discharge Orders: Discharge Order (Routine); Ordered 07/05/19 Ordered By: Carissa Pineda/Other Patient Handouts: Prediabetes, Diabetes Meal Planning Admission Data Admit Date/Time: 07/03/19 21:31 Attending Provider: Carissa Trevino Admit Provider: Latrell Kraft Primary Care Provider: Charanjit Spann Other Providers: Latrell Kraft ; Nando Bhatt Other Interventions: Discharge Summary Assessment (RN) Last Done: 07/05/19 20:30 DC Date/Time DO NOT enter until pt leaves facility: 07/05/19 21:01
== END 2019-07-05 21:01 | disposition home or self-care (01) | DRG 190 ==
LOC: ED 16:00 → 2W 21:31
DX: G43.909 Migraine, unspecified, not intractable, without status migrainosus; Z79.899 Other long term (current) drug therapy; Z86.718 Personal history of other venous thrombosis and embolism; Z86.711 Personal history of pulmonary embolism; Y63.6 Underdosing and nonadministration of necessary drug, medicament or biological substance; Z82.49 Family history of ischemic heart disease and other diseases of the circulatory system; I25.10 Atherosclerotic heart disease of native coronary artery without angina pectoris; E78.5 Hyperlipidemia, unspecified; Z88.6 Allergy status to analgesic agent; J20.8 Acute bronchitis due to other specified organisms; G89.29 Other chronic pain; J96.01 Acute respiratory failure with hypoxia; I10 Essential (primary) hypertension; E03.9 Hypothyroidism, unspecified; F41.9 Anxiety disorder, unspecified; F32.9 Major depressive disorder, single episode, unspecified; J44.0 Chronic obstructive pulmonary disease with (acute) lower respiratory infection; Z95.5 Presence of coronary angioplasty implant and graft; Z91.040 Latex allergy status; J44.1 Chronic obstructive pulmonary disease with (acute) exacerbation; Z79.891 Long term (current) use of opiate analgesic; Z91.048 Other nonmedicinal substance allergy status; I25.2 Old myocardial infarction; G25.81 Restless legs syndrome; T46.5X6A Underdosing of other antihypertensive drugs, initial encounter; Z79.82 Long term (current) use of aspirin; I16.0 Hypertensive urgency

== ENCOUNTER 2019-07-30 12:26 | Inpatient (IN) ==
[~2019-07-30 12:26] MED LIST changes: -ALPR1TAB3 PO; -ASPI81TA28 PO; -ATOR-24 PO; -CALCTAB7 PO; -CIPR-255 PO; -CITA10TA8 PO; -CLOP1TAB15 PO; -DSY100 PO; -EPP3/2 IM; +HydrALAZINE HCL 20 MG/ML VIAL IV ONE; -LEVO75TA5 PO; -LISI-729 PO; -LRS10 PO; -MAGN1TAB19 PO; -METO25TA56 PO; -METR-163 PO; -MRPSR30 PO; -MULT-506 PO; -NRV5 PO; -PANT40TA PO; -POLY335019 PO; -POTA20TA16 PO; -PRAZ1CAP PO; -PROC5TAB PO; -PROM25TA16 PO; -PTDOPS OPB; -TRAM-10 PO
[2019-07-30] MEDS ORDERED: PROMETHAZINE HCL 25 MG in SODIUM CHLORIDE 0.9% 50 ML IV STA (12:39)
[2019-07-30] MEDS ORDERED: ONDANSETRON INJ 2 MG/ML 2 ML VIAL IV STA ×2 (12:39→14:32)
[2019-07-30] MEDS ORDERED: KETOROLAC TROMETHAMINE 15 MG/ML VIAL IV ONE (12:39)
[2019-07-30] MEDS ORDERED: SODIUM CHLORIDE 0.9% 1000ML 2,000 ML IV ONE (12:39)
[2019-07-30] MEDS ORDERED: PROMETHAZINE 25 MG/51 ML NSS IV ONE (12:44)
--- NOTE | 2019-07-30 13:48 | XRay Report ---
XR abdomen 2V w PA chest HISTORY: 69 years-old Female vomiting acute vomiting COMPARISON: Chest radiographs and CTA chest 07/03/2019 TECHNIQUE: PA view of the chest with lateral decubitus and supine views of the abdomen FINDINGS: Cardiac silhouette is enlarged, unchanged. Prior median sternotomy. Stable positioning of left subcla vian Cnckav-m-Joms catheter. No pneumothorax. Unchanged blunting of the costophrenic angles. Hazy lef t greater than right bibasilar opacities. There is no pneumothorax or overt pulmonary edema. Degenera tive changes of the shoulders and spine. Thoracolumbar sigmoidal scoliosis. There is no pneumatosis or pneumoperitoneum identified. No definite urolith. Bowel gas pattern appear s nonobstructive. Multiple pelvic basin calcifications suggest probable phleboliths. Severe degenerat dawn changes of the SI joints. Multilevel degenerative bony fusion of the lumbar spine. IMPRESSION: 1. Cardiomegaly without overt pulmonary edema. 2. Bibasilar opacities suggest atelectasis with pneumonitis considered less likely. 3. Nonobstructive bowel gas pattern. 4. No pneumoperitoneum. The above report was generated using voice recognition software. It may contain grammatical, syntax o r spelling errors. Electronically signed by: Ariel López M.D. 07/30/2019 1:47 PM
[2019-07-30 14:15] LABS: Basophils # (auto) 0.02 K/uL (0-0.2); Basophils % (auto) 0.1 %; Hematocrit (blood only) 41.3 % (37-47); Hemoglobin 14.4 g/dL (12.0-16.0); Immature Granulocytes # (auto) 0.04 K/uL (0.00-0.02); Immature Granulocytes % (auto) 0.2 %; Lymphocytes # (auto) 1.63 K/uL (1.2-3.4); Lymphocytes % (auto) 9.4 %; Mean Corpuscular Hemoglobin 29.3 pg (25-34); Mean Corpuscular Hgb Conc 34.9 g/dL (32-36); Mean Corpuscular Volume 84.1 fL (80-100); Mean Platelet Volume 9.3 fL (7.4-10.4); Monocytes # (auto) 0.97 K/uL (0.11-0.59); Monocytes % (auto) 5.6 %; Neutrophils # (auto) 14.68 K/uL (1.4-6.5); Neutrophils % (auto) 84.7 %; Platelet Count 399 K/uL (130-400); RDW Coefficient of Variation 14.3 % (11.5-14.5); Red Blood Count 4.91 M/uL (4.2-5.4); White Blood Count 17.34 K/uL (4.8-10.8)
[2019-07-30 14:25] LABS: Albumin Level 4.1 gm/dl (3.4-5.0); BUN Creatinine Ratio 26.6 (10-20); Calcium 9.4 mg/dl (8.5-10.1); Creatinine Clr Calc Pharmacy 67.9 ml/min; Est GFR (Non-African American) 74.2; Potassium 3.4 mmol/L (3.5-5.1)
[2019-07-30 14:28] LABS: Bilirubin,Total 0.5 mg/dl (0.2-1); Globulin 4.1 gm/dl (2.5-4.0); Total Protein 8.2 gm/dl (6.4-8.2)
[2019-07-30] MEDS ORDERED: METOCLOPRAMIDE HCL INJ 5 MG/ML 2 ML VIAL IV STA (14:32)
[2019-07-30] MEDS: POTASSIUM CHLORIDE / WTR 10 MEQ/100 ML PLCT IV SCH ×2 (15:01→17:09)
[2019-07-30] MEDS ORDERED: LABETALOL HCL IV 5 MG/ML 20ML IV STA (15:02)
[2019-07-30] MEDS ORDERED: PANTOprazole 80 MG in DEXTROSE 5% 100 ML IV SCH (16:00)
--- NOTE | 2019-07-30 16:25 | Emergency Department Note ---
Entered by Zaida Sanderson acting as a scribe for History of Present Illness General Chief complaint: Vomiting Stated complaint: vomit Time Seen by Provider: 07/30/19 12:28 Source: patient History of Present Illness Onset (ago): hour(s) (this morning) Location: abdomen Pain Consistency: + other (episodic ) Quality: + other (vomiting) Associated symptoms: + other (Positive abdominal cramping. Negative urinary symptoms, vaginal discharge, vaginal bleeding. ); no chest pain and no cough The patient is a 69 year old female who presents to the ED with complaints of vomiting beginning this morning. As per nursing staff, the patient has cyclic vomiting syndrome and was last at the ED on 07/28. The patient states she has had this syndrome for the past couple decades. She states she has flare ups about every month. She has abdominal cramping but she denies any urinary symptoms, vaginal discharge, vaginal bleeding, cough, chest pain. She notes that she has been admitted multiple times for this before in the past. Patient denies any fevers, cough, congestion, chest pain or shortness of breath. She notes that there are no exacerbating or remitting factors but she was unable to take her Phenergan which she normally takes. She is unable to keep any of her medications down. Home Medications Home Medications Medication Instructions Recorded Confirmed Type atorvastatin [Lipitor] 40 mg PO QAM 12/13/18 07/30/19 History buspirone 10 mg PO TID 12/13/18 07/30/19 History hydroxyzine HCl 75 mg PO HS 12/13/18 07/30/19 History levothyroxine 75 mcg PO QAM 12/13/18 07/30/19 History tizanidine [Zanaflex] 4 mg PO BID PRN 12/13/18 07/30/19 History pramipexole [Mirapex] 0.125 mg PO HS 01/25/19 07/30/19 History tramadol [Ultram] 50 mg PO Q8 PRN 01/25/19 07/30/19 History potassium chloride [Klor-Con M20] 20 meq PO BID 03/30/19 07/30/19 History ondansetron HCl [Zofran] 8 mg PO Q6H PRN 05/12/19 07/30/19 History polyethylene glycol 3350 17 g PO DAILY PRN 05/12/19 07/30/19 History prochlorperazine maleate 10 mg PO BID PRN 05/12/19 07/30/19 History promethazine 25 mg PO Q6H PRN 05/12/19 07/30/19 History trazodone 200 mg PO HS 05/12/19 07/30/19 History Calcium 600 + D(3) 1 cap PO BID 05/23/19 07/30/19 History Ocuvite Adult 50 Plus 1 cap PO QAM 05/23/19 07/30/19 History aspirin [Aspir-81] 81 mg PO QAM 05/23/19 07/30/19 History epinephrine 0.3 mg IM Q3H PRN 05/23/19 07/30/19 History magnesium oxide 400 mg PO BID 05/23/19 07/30/19 History nitroglycerin [Nitrostat] 0.3 mg SUBLINGUAL UD 05/23/19 07/30/19 History nystatin 1 applic TOPICAL TID PRN 05/23/19 07/30/19 History olopatadine 1 drp OPHTHALMIC (EYE) QAM 05/23/19 07/30/19 History fentanyl [Duragesic] 1 patch TOPICAL CQ72HR 05/26/19 07/30/19 History fentanyl [Duragesic] 1 patch TOPICAL CQ72HR 05/26/19 07/30/19 History mirtazapine 7.5 mg PO HS 07/03/19 07/30/19 History pantoprazole 40 mg PO QAM 07/03/19 07/30/19 History amlodipine [Norvasc] 5 mg PO QAM 30 Days #30 tab 07/05/19 07/30/19 Rx hydrochlorothiazide 25 mg PO QAM 30 Days #30 tab 07/05/19 07/30/19 Rx Allergies Allergy/AdvReac Type Severity Reaction Status Date / Time latex Allergy Intermediate Rash Verified 07/30/19 13:57 nickel Allergy Intermediate SEVERE Verified 07/30/19 13:57 DERMATITIS NSAIDS (Non-Steroidal Allergy Intermediate HX OF Verified 07/30/19 13:57 Anti-Inflamma BLEEDING ULCERS-TO AVOID aspirin AdvReac Intermediate bleeding Verified 07/30/19 13:57 ulcers Past Med/Surg History Medical History CAD (coronary artery disease) (Chronic) Hypertension (Chronic) Myocardial Infarction (Chronic) 2 YEARS AGO Pulmonary embolism (Chronic) 2 YEARS OLD (UNSURE OF REASON) Deep vein thrombosis (Chronic) 4 YEARS AGO Migraine (Chronic) Restless leg syndrome (Chronic) Anxiety (Chronic) Depression (Chronic) Post traumatic stress disorder (Chronic) Anemia (Chronic) HX OF Hypothyroidism (Chronic) Colitis (Chronic) Osteoarthritis (Chronic) Degenerative disc disease (Chronic) Chronic back pain TO BILAT LEGS Hyperlipidemia Kidney stones Osteoarthritis SOB (shortness of breath) on exertion Surgical History History of heart artery stent (Chronic) 2017- STENT PLACED AT [facility] (DR. DAVILA) History of adenoidectomy (Chronic) History of tonsillectomy (Chronic) History of appendectomy (Chronic) History of colonoscopy (Chronic) History of esophagogastroduodenoscopy (EGD) (Chronic) Fusion of spine (Chronic) LUMBAR History of laminectomy (Chronic) LUMBAR Ovarian cyst (Chronic) X 2 History of anesthesia reaction (Chronic) WOKE UP IN MIDDLE OF SPINAL SURGERIES History of cataract surgery (Chronic) LEFT AND RIGHT History of vascular access device PORT LEFT UPPER CHEST-IN PLACE Family History Other Hypertension Social History Preferred Language: Kinyarwanda Communication Ability: Effective Campaign Marketing Specialist Required: No Beliefs That Will Affect Care: None marital status: Single Current Living Situation: Alone current occupational status: retired Feels Safe at Home: Yes Smoking Status: Never smoker Second Hand Exposure: No ; Hx Alcohol Use: No Hx Substance Use: No Review of Systems See HPI for pertinent positives & negatives. and A total of 10 systems reviewed and were otherwise negative Physical Exam Vital Signs Vital Signs - 24 hr 07/30/19 12:34 07/30/19 12:39 07/30/19 13:53 Temperature 37.1 C Temperature Source Oral Sepsis Recent Fever Within 48 Hours No Sepsis New/Unexplained Change in Mental Status No Sepsis Action Taken by Nursing No Action Required Pulse Rate 108 H Pulse Rate from SpO2 Sensor 96 H Respiratory Rate 20 Blood Pressure 163/93 H 185/109 H Blood Pressure Mean 116 134 Pulse Oximetry 94 93 Oxygen Delivery Method Room Air Room Air Room Air 07/30/19 14:00 07/30/19 14:31 07/30/19 14:39 Temperature Temperature Source Sepsis Recent Fever Within 48 Hours Sepsis New/Unexplained Change in Mental Status Sepsis Action Taken by Nursing Pulse Rate Pulse Rate from SpO2 Sensor 88 94 H Respiratory Rate Blood Pressure 119/82 180/154 H 191/88 H Blood Pressure Mean 94 162 122 Pulse Oximetry 94 94 Oxygen Delivery Method Room Air Room Air 07/30/19 15:00 07/30/19 15:12 Temperature Temperature Source Sepsis Recent Fever Within 48 Hours Sepsis New/Unexplained Change in Mental Status Sepsis Action Taken by Nursing Pulse Rate 105 H 92 H Pulse Rate from SpO2 Sensor Respiratory Rate 23 24 Blood Pressure 181/110 H 168/120 H Blood Pressure Mean 133 136 Pulse Oximetry 91 93 Oxygen Delivery Method Room Air Room Air GENERAL: : Sitting up in bed. Dry heaving. Chronically ill appearing. Disheveled EYE EXAM: normal conjunctiva OROPHARYNX: no exudate, no erythema, lips, buccal mucosa, and tongue normal and mucous membranes are moist NECK: supple, no nuchal rigidity, no adenopathy, non-tender LUNGS: Clear to auscultation. Normal chest wall mechanics HEART: no murmurs, S1 normal and S2 normal ABDOMEN: abdomen soft, non-tender, normo-active bowel sounds, no masses, no rebound or guarding. BACK: Back is symmetrical on inspection and there is no deformity, no midline tenderness, no CVA tenderness. SKIN: no rashes and no bruising UPPER EXTREMITIES: upper extremities are grossly normal. LOWER EXTREMITIES: No pitting edema. NEURO EXAM: Normal sensorium, cranial nerves II-XII grossly intact, normal spe ech, no gross weakness of arms, no gross weakness of legs. Course ED COURSE: Vital signs were reviewed and showed hypertensive The patients medical record was reviewed The above diagnostic studies were performed and reviewed. ED treatments and interventions as stated above. 1233: The patient was evaluated in room C6. A complete history and physical examination was performed. 1400: I checked on the patient at this time. She is feeling slightly better and does not have vomiting. 1433: I checked on the patient at this time. She has more vomiting. 1500: Discussed the patient's case [facility] The patient will be evaluated for further management by Dr[facility]. 1505: Upon reevaluation, the patient still has vomiting. I discussed my findings with the patient and she understands and agrees with the treatment plan. Based on the patients age, coexisting illnesses, exam and lab findings the decision to treat as an inpatient was made. The patient remained stable while under my care. The patient will be evaluated for further management. Administered Medications Potassium Chloride (K Sai / Wtr) 10 meq in 100 mls @ 100 mls/hr IV Q1H COLT Stop: 07/30/19 16:59 Last Admin: 07/30/19 15:01 Dose: 100 mls/hr Documented by: [id number] Discontinued Medications Promethazine HCl 25 mg/ Sodium (Chloride) 51 mls @ 204 mls/hr IV NOW STA Stop: 07/30/19 12:53 Last Infusion: 07/30/19 13:56 Dose: 0 mls/hr Documented by: [id number] Admin: 07/30/19 13:09 Dose: 204 mls/hr Documented by: [id number] Sodium Chloride (Nss 1000ml) 2,000 mls @ 999 mls/hr IV .Q2H1M ONE Stop: 07/30/19 14:39 Last Admin: 07/30/19 13:10 Dose: 999 mls/hr Documented by: [id number] Ketorolac Tromethamine (Toradol) 10 mg IV NOW ONE Stop: 07/30/19 12:40 Last Admin: 07/30/19 13:10 Dose: 10 mg Documented by: [id number] Labetalol HCl (Normodyne) 10 mg IV NOW STA Stop: 07/30/19 15:03 Last Admin: 07/30/19 15:08 Dose: 10 mg Documented by: [id number] Cosigned by: [id number] Metoclopramide HCl (Reglan) 10 mg IV NOW STA Stop: 07/30/19 14:33 Last Admin: 07/30/19 14:39 Dose: 10 mg Documented by: [id number] Ondansetron HCl (Zofran) 4 mg IV NOW STA Stop: 07/30/19 12:40 Last Admin: 07/30/19 13:10 Dose: 4 mg Documented by: [id number] Ondansetron HCl (Zofran) 4 mg IV NOW STA Stop: 07/30/19 14:33 Last Admin: 07/30/19 14:39 Dose: 4 mg Documented by: [id number] Promethazine HCl (Phenergan) Confirm Administered Dose 25 mg IV .The [employer] ONE Stop: 07/30/19 12:45 Last Admin: 07/30/19 13:10 Dose: Not Given Documented by: [id number] Medical Decision Making Differential Diagnosis Differential diagnoses includes but is not limited to gastritis, peptic ulcer disease, GERD, gallbladder disease, pancreatitis, small bowel obstruction, acute coronary syndrome, pericarditis, ischemic bowel, irritable bowel disease, irritable bowel syndrome, appendicitis, diverticulitis, malignancy, hernia, urinary tract infection, torsion, /ectopic (if female), perforation, trauma, infectious. Medical Records Attestation: I reviewed the patient's medical records. Home Medications Current Medication List: was personally reviewed by me Laboratory Data Attestation: I reviewed the patient's lab results. Result diagrams: 07/30/19 13:40 07/30/19 13:40 Lab Results 07/30/19 07/30/19 Range/Units 13:40 13:40 WBC 17.34 H (4.8-10.8) K/uL RBC 4.91 (4.2-5.4) M/uL Hgb 14.4 (12.0-16.0) g/dL Hct 41.3 (37-47) % MCV 84.1 (80-100) fL MCH 29.3 (25-34) pg MCHC 34.9 (32-36) g/dL RDW Std Deviation 44.0 (36.4-46.3) fL RDW Coeff of [place] 14.3 (11.5-14.5) % Plt Count 399 (130-400) K/uL MPV 9.3 (7.4-10.4) fL Immature Gran % (Auto) 0.2 % Neut % (Auto) 84.7 % Lymph % (Auto) 9.4 % [place] % (Auto) 5.6 % Eos % (Auto) 0.0 % Baso % (Auto) 0.1 % Immature Gran # (Auto) 0.04 H (0.00-0.02) K/uL Neut # (Auto) 14.68 H (1.4-6.5) K/uL Lymph # (Auto) 1.63 (1.2-3.4) K/uL [place] # (Auto) 0.97 H (0.11-0.59) K/uL Eos # (Auto) 0.00 (0-0.5) K/uL Baso # (Auto) 0.02 (0-0.2) K/uL Sodium 136 (136-145) mmol/L Potassium 3.4 L (3.5-5.1) mmol/L Chloride 104 (98-107) mmol/L Carbon Dioxide 25 (21-32) mmol/L Anion Gap 8.0 (3-11) BUN 21 H (7-18) mg/dl Creatinine 0.80 (0.6-1.2) mg/dl Est Cr Clr Drug Dosing 67.9 ml/min Est GFR ( Amer) 86.0 Est GFR (Non-Af Amer) 74.2 BUN/Creatinine Ratio 26.6 H (10-20) Glucose 209 H (70-99) mg/dl Calcium 9.4 (8.5-10.1) mg/dl Total Bilirubin 0.5 (0.2-1) mg/dl AST 17 (15-37) U/L ALT 32 (12-78) U/L Alkaline Phosphatase 103 (45-117) U/L Total Protein 8.2 (6.4-8.2) gm/dl Albumin 4.1 (3.4-5.0) gm/dl Globulin 4.1 H (2.5-4.0) gm/dl Albumin/Globulin Ratio 1.0 (0.9-2) Lipase 71 L (73-393) U/L Imaging Data Radiologist's Impression: Radiology results as stated below per my review and the radiologist's interpretation: XR abdomen 2V w PA chest HISTORY: 69 years-old Female vomiting acute vomiting COMPARISON: Chest radiographs and CTA chest 07/03/2019 TECHNIQUE: PA view of the chest with lateral decubitus and supine views of the abdomen FINDINGS: Cardiac silhouette is enlarged, unchanged. Prior median sternotomy. Stable positioning of left subclavian Efhyif-p-[id number] catheter. No pneumothorax. Unchanged blunting of the costophrenic angles. Hazy left greater than right bibasilar opacities. There is no pneumothorax or overt pulmonary edema. Degenerative changes of the shoulders and spine. Thoracolumbar sigmoidal scoliosis. There is no pneumatosis or pneumoperitoneum identified. No definite urolith. Bowel gas pattern appears nonobstructive. Multiple pelvic basin calcifications suggest probable phleboliths. Severe degenerative changes of the SI joints. Multilevel degenerative bony fusion of the lumbar spine. IMPRESSION: 1. Cardiomegaly without overt pulmonary edema. 2. Bibasilar opacities suggest atelectasis with pneumonitis considered less likely. 3. Nonobstructive bowel gas pattern. 4. No pneumoperitoneum. The above report was generated using voice recognition software. It may contain grammatical, syntax or spelling errors. Electronically signed by: Ariel López M.D. 07/30/2019 1:47 PM Blood Pressure Blood Pressure Findings: Elevated blood pressure Blood Pressure Disposition: further management by hospitalist LU Narrative Patient is a 69-year-old female with a past medical history of CAD, narcotic dependence and cyclical vomiting syndrome who presents the ER for persistent vomiting which started this morning. She notes this feels exactly like her previous episodes. She denies any marijuana smoking. Labs were obtained and IV was established. Patient was significantly hypertensive with systolics in the 190s. Labs show leukocytosis 17,000. No significant anemia. BMP with mild hypokalemia. LFTs bilirubin was unremarkable. Lipase was normal. Complete benign abdominal exam. Patient was given IV fluids, IV Zofran, IV Phenergan, IV Reglan and additional Zofran. She had improvement of her symptoms but still persistent vomiting. Obstruction series was unremarkable. Patient was updated bedside. Discussed with the hospitalist. She was given IV labetalol secondary to her hypertension per her request the hospitalist. She was admitted for furt her work-up. Impression & Plan Cyclical vomiting syndrome, Hypokalemia, Hypertension Discharge Plan Visit Data Chief Complaint: Vomiting Stated Complaint: vomit ED Provider: Krystian Molina Discharge Problem: Cyclical vomiting syndrome, Hypokalemia, Hypertension Patient Disposition: Being Evaluated by Hospitalist Forms Stand Alone Forms: My [employer] Prescriptions Prescriptions: No Action nitroglycerin [Nitrostat] 0.3 mg Tablet, Sublingual 0.3 mg sublingual UD RF: 0 aspirin [Aspir-81] 81 mg Tablet,Delayed Release (Dr/Ec) 81 mg PO QAM RF: 0 magnesium oxide 400 mg (241.3 mg magnesium) Tablet 400 mg PO BID RF: 0 nystatin 100,000 unit/gram Powder 1 applic TOPICAL TID PRN (Reason: BREAKOUTS) RF: 0 Calcium 600 + D(3) 600 mg calcium- 200 unit Capsule 1 cap PO BID RF: 0 olopatadine 0.2 % Drops 1 drp OPHTHALMIC (EYE) QAM RF: 0 epinephrine 0.3 mg/0.3 mL Syringe 0.3 mg IM Q3H PRN (Reason: Allergic Reaction) RF: 0 Ocuvite Adult 50 Plus 250-5-1 mg Capsule 1 cap PO QAM RF: 0 pantoprazole 40 mg tablet,delayed release (DR/EC) 40 mg PO QAM RF: 0 mirtazapine 7.5 mg tablet 7.5 mg PO HS RF: 0 amlodipine [Norvasc] 5 mg Tablet 5 mg PO QAM 30 Days Qty: 30 RF: 0 hydrochlorothiazide 25 mg Tablet 25 mg PO QAM 30 Days Qty: 30 RF: 0 atorvastatin [Lipitor] 40 mg Tablet 40 mg PO QAM RF: 0 levothyroxine 75 mcg Tablet 75 mcg PO QAM RF: 0 buspirone 10 mg Tablet 10 mg PO TID RF: 0 tizanidine [Zanaflex] 4 mg Capsule 4 mg PO BID PRN (Reason: Muscle Spasm) RF: 0 hydroxyzine HCl 50 mg Tablet 75 mg PO HS RF: 0 tramadol [Ultram] 50 mg Tablet 50 mg PO Q8 PRN (Reason: severe pain) RF: 0 pramipexole [Mirapex] 0.125 mg Tablet 0.125 mg PO HS RF: 0 potassium chloride [Klor-Con M20] 20 mEq tablet,ER particles/crystals 20 meq PO BID RF: 0 prochlorperazine maleate 5 mg tablet 10 mg PO BID PRN (Reason: Nausea) RF: 0 trazodone 100 mg tablet 200 mg PO HS RF: 0 polyethylene glycol 3350 17 gram Powder In Packet 17 g PO DAILY PRN (Reason: Constipation) RF: 0 ondansetron HCl [Zofran] 8 mg Tablet 8 mg PO Q6H PRN (Reason: Nausea) RF: 0 promethazine 25 mg Tablet 25 mg PO Q6H PRN (Reason: Nausea) RF: 0 fentanyl [Duragesic] 25 mcg/hr patch 72 hour 1 patch topical [id number] RF: 0 fentanyl [Duragesic] 12 mcg/hr patch 72 hour 1 patch topical [id number] RF: 0 Referrals Referrals: Charanjit Spann MD [Primary Care Provider] - Discharge Problem: Hypertension Qualifiers: Hypertension type: unspecified Qualified Code(s): I10 - Essential (primary) h ypertension The scribe's documentation has been prepared under my direction and personally reviewed by me in its entirety. I confirm that the note above accurately reflects all work, treatment, procedures, and medical decision making performed by me.
[2019-07-30 16:29] LABS: Magnesium 1.9 mg/dl (1.8-2.4)
[2019-07-30] MEDS ORDERED: ACETAMINOPHEN 325 MG TAB PO PRN (16:52)
[2019-07-30] MEDS ORDERED: AMLODIPINE BESYLATE 5 MG TAB PO SCH (16:52)
[2019-07-30] MEDS: PANTOprazole 40 MG in DEXTROSE 5% 100 ML IV SCH ×2 (16:54→22:36)
--- NOTE | 2019-07-30 16:54 | History & Physical Report ---
Date of Service July 30, 2019 Assessment & Plan (1) Cyclical vomiting: (2) Intractable nausea and vomiting: HEME POSITIVE GASTRIC CONTENTS -Admit to [facility] with telemetry -Patient presenting from home with reports of persistent nausea and vomiting that began at 5 AM this morning -History of cyclic vomiting syndrome -Continue supportive care with IVF, PRN antiemetics -Gastric contents tested heme positive - ? Due to gastritis /Molly-Ferrari tear from persistent vomiting -Hgb stable at 14.4 -PPI bolus and drip -GI consult -EGD 2015 showed hiatal hernia; colonoscopy 2017 showed sigmoid diverticulosis -Abdominal pain on exam likely secondary to persistent vomiting, if does not improve consider CT ABD/pelvis (3) Hypertensive urgency: -Has BP noted to be 190/120 -Weekly multifactorial secondary to missed morning medications and persistent vomiting -Received IV labetalol 10 mg in the ED -Continue home amlodipine -Provide additional PRN labetalol if needed -will hold HCTZ due to persistent vomiting and while receiving IVF (4) Diarrhea: -Check stool culture and C. difficile (5) Leukocytosis: -WBC 17 K -Likely stress-induced due to vomiting -No obvious sources of infection at this time (6) CAD (coronary artery disease): -Appears stable, no reports of chest pain -Holding aspirin due to heme positive emesis -Continue statin (7) Chronic pain: -Continue chronic frontal patch (8) Mood disorder: (9) Depression: (10) Anxiety: -Continue home medications (11) Hypothyroidism: -Continue levothyroxine (12) DVT prophylaxis: -SCDs due to heme positive emesis History of Present Illness Chief Complaint: Nausea and vomiting Primary Care Provider: Charanjit Spann MD 69-year-old female who presents to the ED with nausea and vomiting. Patient reports she woke up at around 5 AM and felt very nauseous and has had several episodes of vomiting. She denies hematemesis however describes emesis as coffee-ground at times. She has diffuse abdominal pain. No fevers or chills. She reports she developed diarrhea yesterday. Denies bright red bleeding per rectum and dark tarry stools. No chest pain or shortness of breath. She denies lightheadedness, dizziness, diaphoresis, syncopal events. No urinary symptoms. In the ED, chest and abdominal x-ray is negative for acute findings. Gastric contents tested heme positive. Labs show WBC 17 K, K+ 3.4, other labs unremarkable. BP is hypertensive. Patient was given IVF, IV Reglan, IV Zofran, IV Phenergan with minimal relief in symptoms. She was also given labetalol for the high blood pressure. Allergies Allergy/AdvReac Type Severity Reaction Status Date / Time latex Allergy Intermediate Rash Verified 07/30/19 13:57 nickel Allergy Intermediate SEVERE Verified 07/30/19 13:57 DERMATITIS NSAIDS (Non-Steroidal Allergy Intermediate HX OF Verified 07/30/19 13:57 Anti-Inflamma BLEEDING ULCERS-TO AVOID aspirin AdvReac Intermediate bleeding Verified 07/30/19 13:57 ulcers Home Medications Home Medications Medication Instructions Recorded Confirmed Type atorvastatin [Lipitor] 40 mg PO QAM 12/13/18 07/30/19 History buspirone 10 mg PO TID 12/13/18 07/30/19 History hydroxyzine HCl 75 mg PO HS 12/13/18 07/30/19 History levothyroxine 75 mcg PO QAM 12/13/18 07/30/19 History tizanidine [Zanaflex] 4 mg PO BID PRN 12/13/18 07/30/19 History pramipexole [Mirapex] 0.125 mg PO HS 01/25/19 07/30/19 History tramadol [Ultram] 50 mg PO Q8 PRN 01/25/19 07/30/19 History potassium chloride [Klor-Con M20] 20 meq PO BID 03/30/19 07/30/19 History ondansetron HCl [Zofran] 8 mg PO Q6H PRN 05/12/19 07/30/19 History polyethylene glycol 3350 17 g PO DAILY PRN 05/12/19 07/30/19 History prochlorperazine maleate 10 mg PO BID PRN 05/12/19 07/30/19 History promethazine 25 mg PO Q6H PRN 05/12/19 07/30/19 History trazodone 200 mg PO HS 05/12/19 07/30/19 History Calcium 600 + D(3) 1 cap PO BID 05/23/19 07/30/19 History Ocuvite Adult 50 Plus 1 cap PO QAM 05/23/19 07/30/19 History aspirin [Aspir-81] 81 mg PO QAM 05/23/19 07/30/19 History epinephrine 0.3 mg IM Q3H PRN 05/23/19 07/30/19 History magnesium oxide 400 mg PO BID 05/23/19 07/30/19 History nitroglycerin [Nitrostat] 0.3 mg SUBLINGUAL UD 05/23/19 07/30/19 History nystatin 1 applic TOPICAL TID PRN 05/23/19 07/30/19 History olopatadine 1 drp OPHTHALMIC (EYE) QAM 05/23/19 07/30/19 History fentanyl [Duragesic] 1 patch TOPICAL CQ72HR 05/26/19 07/30/19 History fentanyl [Duragesic] 1 patch TOPICAL CQ72HR 05/26/19 07/30/19 History mirtazapine 7.5 mg PO HS 07/03/19 07/30/19 History pantoprazole 40 mg PO QAM 07/03/19 07/30/19 History amlodipine [Norvasc] 5 mg PO QAM 30 Days #30 tab 07/05/19 07/30/19 Rx hydrochlorothiazide 25 mg PO QAM 30 Days #30 tab 07/05/19 07/30/19 Rx Past Med/Surg History Medical History Hyperlipidemia (Chronic) Chronic pain (Chronic) Scoliosis (Chronic) Cervical spondylolysis (Chronic) Dyslipidemia (Chronic) Cyclical vomiting (Chronic) Mood disorder (Chronic) CAD (coronary artery disease) (Chronic) 2016-BMS to LAD Hypertension (Chronic) Myocardial Infarction (Chronic) 2 YEARS AGO Pulmonary embolism (Chronic) 2 YEARS OLD (UNSURE OF REASON) Deep vein thrombosis (Chronic) 4 YEARS AGO Migraine (Chronic) Restless leg syndrome (Chronic) Anxiety (Chronic) Depression (Chronic) Post traumatic stress disorder (Chronic) Anemia (Chronic) HX OF Hypothyroidism (Chronic) Colitis (Chronic) Osteoarthritis (Chronic) Degenerative disc disease (Chronic) Surgical History History of vascular access device (Chronic) PORT LEFT UPPER CHEST-IN PLACE H/O spinal fusion (Chronic) "1[place] in [place], then [place] [facility] [place] H/O repair of right rotator cuff (Chronic) H/O ovarian cystectomy (Chronic) History of heart artery stent (Chronic) 2017- STENT PLACED AT [facility] (DR. DAVILA) History of adenoidectomy (Chronic) History of tonsillectomy (Chronic) History of appendectomy (Chronic) Fusion of spine (Chronic) LUMBAR History of laminectomy (Chronic) LUMBAR Ovarian cyst (Chronic) X 2 History of anesthesia reaction (Chronic) WOKE UP IN MIDDLE OF SPINAL SURGERIES History of cataract surgery (Chronic) LEFT AND RIGHT Family History Mother Hypertension Father Hypertension Social History Preferred Language: Arabic Communication Ability: Effective Patient Access Manager Required: No Beliefs That Will Affect Care: None marital status: Single Current Living Situation: Alone current occupational status: retired Feels Safe at Home: Yes Smoking Status: Never smoker Second Hand Exposure: No ; Hx Alcohol Use: No Hx Substance Use: No Review of Systems Review of Systems: ROS per HPI, all other systems reviewed and negative Physical Exam Constitutional: WD/WN, vitals as above + ill appearing; no acute distress Eyes: PERRL, conjunctivae normal, anicteric sclerae ENMT: external ear and nose normal, oropharynx normal Respiratory: normal respiratory effort, lungs clear to auscultation Cardiovascular: Rate/Rhythm: regular rate and regular rhythm Vessels: normal peripheral pulses Extremities: no edema Gastrointestinal (Abdomen): Inspection/Auscultation: normal bowel sounds; abdomen not distended Percussion/Palpation: + abdomen tender (Diffusely) and abdomen soft; no hepatosplenomegaly Musculoskeletal: no cyanosis or clubbing, extremities motor strength 5/5 Skin: no rashes, warm and dry Neurologic: PERRL, EOMI, accommodation nl, no face palsy, no dysarthria Psychiatric: A+Ox3, euthymic affect Results & Data Vital Signs (Past 12 Hours) Vital Signs Temp Pulse Resp BP Pulse Ox 07/30/19 16:30 84 27 H 169/93 H 93 07/30/19 16:00 83 27 H 174/91 H 93 07/30/19 15:30 82 23 190/120 H 91 07/30/19 15:12 92 H 24 168/120 H 93 07/30/19 15:00 105 H 23 181/110 H 91 07/30/19 14:39 191/88 H 07/30/19 14:31 180/154 H 94 07/30/19 14:00 119/82 94 07/30/19 13:53 185/109 H 93 07/30/19 12:39 37.1 C 108 H 20 163/93 H 94 Laboratory Results Short CBC 07/30/19 Range/Units 13:40 WBC 17.34 H (4.8-10.8) K/uL Hgb 14.4 (12.0-16.0) g/dL Hct 41.3 (37-47) % Plt Count 399 (130-400) K/uL BMP 07/30/19 13:40 Sodium 136 Potassium 3.4 L Chloride 104 Carbon Dioxide 25 BUN 21 H Creatinine 0.80 Glucose 209 H Calcium 9.4 Liver Function 07/30/19 Range/Units 13:40 Total Bilirubin 0.5 (0.2-1) mg/dl AST 17 (15-37) U/L ALT 32 (12-78) U/L Alkaline Phosphatase 103 (45-117) U/L Albumin 4.1 (3.4-5.0) gm/dl Diagnostic Findings CHEST/ABD X-RAY IMPRESSION: 1. Cardiomegaly without overt pulmonary edema. 2. Bibasilar opacities suggest atelectasis with pneumonitis considered less likely. 3. Nonobstructive bowel gas pattern. 4. No pneumoperitoneum. Code Status & VTE Plan Code Status Patient is a full code as per my discussion with her. VTE Prophylaxis Plan VTE Prophylaxis will be ordered: Yes Supervising Physician Co-Signing Physician Notes Attending addendum The patient was seen and examined in the emergency room She woke up with abdominal discomfort associated with nausea vomiting and diarrhea since this morning She lives alone and denies to have any special food as of last night or yesterday She has had this problem before and known to have cyclic vomiting syndrome without apparent cause Has been feeling any better since admission On examination Moderate distress at rest due to abdominal discomfort and nausea Noted to have high blood pressure but otherwise hemodynamically stable Chest-clear to auscultate bilaterally Heart-S1, S2-regular Abdomen-not distended, soft, tender in the epigastrium, bowel sounds present Extremities-trace edema bilateral [employer]-she is alert awake and oriented x3, Admission labs and imaging studies reviewed Noted to have heme positive vomitus-likely has Molly-Ferrari tear secondary to vomiting We will get intravenous fluids and symptomatic management for nausea and vomiting GI consulted And agree with assessment plan as outlined above by Tika Sotelo
[2019-07-30] MEDS ORDERED: SODIUM CHLORIDE 0.9% 1000ML 1,000 ML IV SCH (18:00)
[2019-07-30] MEDS ORDERED: HYDROmorphone INJ 0.5 MG/0.5 ML SYR IV STA (18:11)
[2019-07-30] MEDS: ONDANSETRON INJ 2 MG/ML 2 ML VIAL IV PRN (18:30)
[2019-07-30 19:16] LABS: Hematocrit (blood only) 39.3 % (37-47); Hemoglobin 13.6 g/dL (12.0-16.0)
[2019-07-30] MEDS: fentaNYL 12 MCG/HR TDSY TD SCH (19:33)
[2019-07-30] MEDS: fentaNYL 25 MCG/HR TDSY TD SCH (19:33)
[2019-07-30 19:59] LABS: Appearance Urine Clear (Clear); Bacteria Urine Automated Negative (Negative); Bilirubin Urine Negative (Negative); Blood Urine Negative (Negative); Color Urine Yellow; Glucose Urine UA Trace (Negative); Ketones Urine Negative (Negative); Leukocyte Esterase Urine Negative (Negative); Nitrite Urine Negative (Negative); Protein Urine Trace (Negative); RBC Urine Automated 0-4 /hpf (0-4); Specific Gravity Urine 1.017 (1.000-1.030); Urobilinogen Urine Negative (Negative); pH Urine 6.5 (4.5-7.5)
[2019-07-30] MEDS: PROMETHAZINE HCL 12.5 MG in SODIUM CHLORIDE 0.9% 50 ML IV PRN (20:28)
[2019-07-30] MEDS ORDERED: LORazepam 0.25 MG/0.5 ML VIAL IV STA (20:38)
[2019-07-30] MEDS ORDERED: LACTATED RINGER'S 1,000 ML IV ONE (20:40)
[2019-07-30] MEDS ORDERED: CARBOHYDRATES FOR HYPOGLYCEMIA PO PRN (20:52)
[2019-07-30] MEDS ORDERED: GLUCOSE 40% GEL 15 GM TUBE PO PRN (20:52)
[2019-07-30] MEDS ORDERED: GLUCOSE 10 TABS/TUBE PO PRN (20:52)
[2019-07-30] MEDS ORDERED: GLUCAGON FOR INJ 1 MG VIAL SQ PRN (20:52)
[2019-07-30] MEDS ORDERED: DEXTROSE 50% 50 ML SYRINGE IV PRN (20:52)
[2019-07-30] MEDS ORDERED: metroNIDAZOLE 500 MG/100 ML BAG IV STA (20:59)
[2019-07-30] MEDS ORDERED: ACETAMINOPHEN 65 ML IV ONE (21:00)
[2019-07-30] MEDS ORDERED: POTASSIUM CHLORIDE 40 MEQ in SODIUM CHLORIDE 0.9% 1000ML 1,000 ML IV STA (21:01)
[2019-07-30] MEDS ORDERED: MAGNESIUM SULFATE / D5W 1 GM/100 ML BAG IV ONE (21:30)
[2019-07-30] MEDS: PRAMIPEXOLE DIHYDROCHLO 0.25 MG TAB PO SCH (21:46)
[2019-07-30] MEDS: MAGNESIUM OXIDE 400 MG TAB PO SCH (21:46)
[2019-07-30] MEDS: TRAZODONE HCL 100 MG TAB PO SCH (21:46)
[2019-07-30] MEDS: CALCIUM 600MG + VIT D 400 IU TAB PO SCH (21:46)
[2019-07-30] MEDS: INSULIN ASPART 100 UNITS/ML 3 ML PEN SC SCH (21:49)
[2019-07-30] MEDS: MIRTAZAPINE TAB 15 MG TAB PO SCH (21:49)
[2019-07-30] MEDS ORDERED: IOVERSOL 100ml IV PRN (22:25)
[2019-07-30] MEDS: LORazepam 0.25 MG/0.5 ML VIAL IV ONE ×2 (22:40→22:47)
--- NOTE | 2019-07-30 22:44 | CT Scan Report ---
ABDOMEN AND PELVIS CT WITH IV CONTRAST CT DOSE: 684.78 mGy.cm HISTORY: Acute abdominal pain with fever worsening abd pain, fever TECHNIQUE: Multiaxial CT images of the abdomen and pelvis were performed following the IV administrat ion of 93 cc of Optiray 320, A dose lowering technique was utilized adhering to the principles of AL MARTHA. COMPARISON STUDY: Acute abdominal series radiographs of same day, CT abdomen and pelvis 05/26/2019 and 01/25/2019. FINDINGS: Chronic left hemidiaphragmatic elevation with subsegmental bibasilar atelectasis/scarring. No pneumat osis or pneumoperitoneum. The imaged inferior cardiac chambers appear unremarkable. Trace pericardial effusion. The liver, spleen, gallbladder, pancreas and adrenal glands appear unremarkable. 4 mm nono bstructing calculus of the superior pole left kidney. 9 mm intermediate attenuating lesion of the int erpolar anterior right kidney is indeterminate and unchanged from 01/25/2019. Ureters are unremarkable. No obstructive uropathy. Urinary bladder, uterus and adnexa are unremarkable. Calcified plaque of th e abdominal aorta without aneurysm. No adenopathy. Small hiatal hernia with mild wall thickening of the distal esophagus. No bowel obstruction. Mild col onic diverticulosis without acute diverticulitis. Partial distention with wall thickening of the colo n. The appendix is surgically absent. No ascites or mesenteric inflammation. Multiple calcific granul omata of the gluteal subcutaneous tissues. Metallic wire noted about the posterior aspect of the mid lumbar spine. Severe degenerative changes of the SI joints with multilevel degenerative bony fusion. Lumbar levoscoliosis. IMPRESSION: 1. No bowel obstruction. 2. Circumferential wall thickening of the colon involving the ascending, transverse and descending se gments may be secondary to partial distention versus a mild colitis. Correlate clinically. 3. Nonobstructing left nephrolithiasis. 4. Small hiatal hernia with mild wall thickening of the distal esophagus. 5. Colonic diverticulosis without acute diverticulitis. 6. Additional findings as above. Electronically signed by: Ariel López M.D. 07/30/2019 10:41 PM
[2019-07-30] MEDS ORDERED: HydrALAZINE HCL 20 MG/ML VIAL IV ONE (22:45)
[2019-07-30] MEDS: CHECK FENTANYL PATCH PLACEMENT SCH (23:43)
[2019-07-30] MEDS: TRAMADOL HCL 50 MG TABLET PO PRN (23:56)
[2019-07-31] MEDS ORDERED: LORazepam 0.5 MG/1 ML VIAL IV STA (00:41)
[2019-07-31] MEDS ORDERED: AMLODIPINE BESYLATE 5 MG TAB PO SCH (00:45)
[2019-07-31] MEDS: ONDANSETRON INJ 2 MG/ML 2 ML VIAL IV PRN ×3 (01:25→17:30)
[2019-07-31] MEDS: PANTOprazole 40 MG in DEXTROSE 5% 100 ML IV SCH ×4 (03:13→20:23)
[2019-07-31] MEDS ORDERED: LABETALOL HCL IV 5 MG/ML 20ML IV STA (03:21)
[2019-07-31] MEDS: PROMETHAZINE HCL 12.5 MG in SODIUM CHLORIDE 0.9% 50 ML IV PRN ×2 (03:30→22:06)
--- NOTE | 2019-07-31 04:20 | Hospitalist Progress Note ---
Date of Service July 31, 2019 Subjective Overnight developments : Worsening abdominal discomfort, nausea/vomiting episodes, fever spike upon arrival at the floor as per RN. Patient refusing oral medications. SBP 180 to 190s as per RN. CT abdomen pelvis: 1. No bowel obstruction. 2. Circumferential wall thickening of the colon involving the ascending, transverse and descending segments may be secondary to partial distention versus a mild colitis. Correlate clinically. 3. Nonobstructing left nephrolithiasis. 4. Small hiatal hernia with mild wall thickening of the distal esophagus. 5. Colonic diverticulosis without acute diverticulitis. AP Colitis History of nonbloody diarrhea as per records Rule out C. difficile Possible sepsis Hypertensive urgency Cultures, check lactic acid Follow C. difficile IV Flagyl 1 dose for now given possible sepsis. Oral vancomycin course if stool C. difficile positive Increased Norvasc dose, initiate Coreg if still uncontrolled (prior beta-dory Rx for hx CAD, CHF as per records) Will relay to AM provider Results & Data Vital Signs (Past 12 Hours) Vital Signs Temp Pulse Pulse Resp BP BP BP 07/31/19 03:18 36.8 C 116 H 18 187/110 H 07/31/19 01:14 100 H 195/119 H 07/30/19 23:36 36.8 C 100 H 18 189/95 H 07/30/19 23:21 37.7 C H 97 H 20 187/92 H 07/30/19 22:31 101 H 07/30/19 20:06 37.7 C H 92 H 20 183/81 H 07/30/19 19:04 91 H 07/30/19 17:17 37.3 C 20 195/100 H 07/30/19 16:30 84 27 H 169/93 H Pulse Ox 07/31/19 03:18 92 07/31/19 01:14 07/30/19 23:36 93 07/30/19 23:21 94 07/30/19 22:31 07/30/19 20:06 92 07/30/19 19:04 07/30/19 17:17 91 07/30/19 16:30 93
[2019-07-31] MEDS ORDERED: AMLODIPINE BESYLATE 5 MG TAB PO ONE (04:21)
[2019-07-31] MEDS: LEVOTHYROXINE SODIUM 75 MCG TABLET PO SCH (05:56)
[2019-07-31] MEDS ORDERED: METOPROLOL TARTRATE 25 MG TAB PO SCH (06:25)
[2019-07-31 06:27] LABS: Hematocrit (blood only) 39.4 % (37-47); Hemoglobin 13.7 g/dL (12.0-16.0); Mean Corpuscular Hemoglobin 29.3 pg (25-34); Mean Corpuscular Hgb Conc 34.8 g/dL (32-36); Mean Corpuscular Volume 84.4 fL (80-100); Mean Platelet Volume 8.9 fL (7.4-10.4); Platelet Count 411 K/uL (130-400); RDW Coefficient of Variation 14.3 % (11.5-14.5); RDW Standard Deviation 44.4 fL (36.4-46.3); Red Blood Count 4.67 M/uL (4.2-5.4); White Blood Count 15.46 K/uL (4.8-10.8)
[2019-07-31 06:51] LABS: Calcium 8.7 mg/dl (8.5-10.1); Creatinine Clr Calc Pharmacy 80.7 ml/min; Est GFR (African American) 102.5; Est GFR (Non-African American) 88.4; Potassium 3.4 mmol/L (3.5-5.1)
[2019-07-31] MEDS ORDERED: POTASSIUM CHLORIDE 20 MEQ TABCR PO STA (07:47)
[2019-07-31] MEDS: carvediloL 3.125 MG TAB PO SCH ×2 (08:47→20:30)
[2019-07-31] MEDS: CHECK FENTANYL PATCH PLACEMENT SCH ×3 (08:49→23:23)
[2019-07-31] MEDS: ATORVASTATIN 40 MG TAB PO SCH (08:49)
[2019-07-31] MEDS: CALCIUM 600MG + VIT D 400 IU TAB PO SCH ×2 (08:49→20:30)
[2019-07-31] MEDS: MAGNESIUM OXIDE 400 MG TAB PO SCH ×2 (08:50→20:31)
[2019-07-31] MEDS: CEROVITE ADV FORMULA TAB PO SCH (08:50)
[2019-07-31] MEDS: INSULIN ASPART 100 UNITS/ML 3 ML PEN SC SCH ×4 (09:07→21:35)
[2019-07-31] MEDS: TRAMADOL HCL 50 MG TABLET PO PRN ×2 (11:34→18:59)
[2019-07-31] MEDS ORDERED: Nursing to Pharmacy Communication ONE (13:43)
--- NOTE | 2019-07-31 14:10 | Hospitalist Progress Note ---
Date of Service July 31, 2019 Assessment & Plan (1) Intractable nausea and vomiting: (2) Cyclical vomiting: HEME POSITIVE GASTRIC CONTENTS Present on admission with episodes of nausea an vomiting CT abd/pelvis showed circumferential wall thickening of the colon involving the ascending, transverse and descending segments may be secondary to partial distention versus a mild colitis. KUB showed nonobstructive bowel gas pattern. Continue clear liquid diet gastro on board On PPI drip, will transition to IV BID Hemoglobin stable Continue Phenergan and Zofran Continue IV flagyl for now Clinically improves significantly Hypertensive urgency Amlodipine increased to 10 mg daily HCTZ 25 mg on board due to vomiting Advised pt to follow a low salt diet Will add Hydralazine PRN Elevated WBC Possible related to colitis vs reactive Temp 37.7 WBC trending down Continue Flagyl IV for now Monitor CBC CAD (coronary artery disease) H/o stent in 2017 Denies any chest pain Continue aspirin, statin, lopressor with hold parameters Hypothyroidism Continue levothyroxine Mood disorder: Continue Buspar, trazodone HS Restless leg syndrome: Continue Mirapex DVT Ppx: On Lovenox subq Code status: FULL Subjective Pt was seen and examined. Lying in bed sleeping. When I woke her, she said that she feels sick She said she feels nauseated but has not vomited since last night She said that she does have abdominal tenderness Denies any chest pain, palpitation, dizziness and SOB Physical Exam Physical Exam: General- No acute distress Head- atraumatic Eyes- PERRL, EOMI, ENT- oropharynx clear Neck- supple, no JVD Lungs- clear to auscultation Heart- regular rhythm; no murmur Abdomen- normal bowel sounds, +tenderness Extremities- no calf tenderness Neuro- alert, oriented x 3; PERRL, EOMI; no facial palsy; no dysarthria Skin- warm & dry Results & Data Vital Signs (Past 12 Hours) Vital Signs Temp Pulse Resp BP Pulse Ox 07/31/19 11:48 36.8 C 95 H 20 185/110 H 95 07/31/19 07:47 37.0 C 101 H 20 177/100 H 93 07/31/19 05:50 98 H 166/94 H 07/31/19 03:18 36.8 C 116 H 18 187/110 H 92
[2019-07-31] MEDS ORDERED: LABETALOL HCL IV 5 MG/ML 20ML IV ONE (19:15)
[2019-07-31] MEDS ORDERED: HydrALAZINE HCL 20 MG/ML VIAL IV PRN (19:16)
[2019-07-31] MEDS: PRAMIPEXOLE DIHYDROCHLO 0.25 MG TAB PO SCH (20:31)
[2019-07-31] MEDS: TRAZODONE HCL 100 MG TAB PO SCH (20:31)
[2019-07-31] MEDS: MIRTAZAPINE TAB 15 MG TAB PO SCH (20:32)
[2019-07-31] MEDS ORDERED: carvediloL 3.125 MG TAB PO ONE (21:04)
[2019-08-01] MEDS: PANTOprazole 40 MG in DEXTROSE 5% 100 ML IV SCH ×2 (01:05→06:39)
[2019-08-01] MEDS: ONDANSETRON INJ 2 MG/ML 2 ML VIAL IV PRN ×3 (01:07→14:41)
[2019-08-01] MEDS: PROMETHAZINE HCL 12.5 MG in SODIUM CHLORIDE 0.9% 50 ML IV PRN ×2 (05:08→19:06)
[2019-08-01] MEDS: LEVOTHYROXINE SODIUM 75 MCG TABLET PO SCH (05:25)
[2019-08-01] MEDS ORDERED: HydrALAZINE HCL 20 MG/ML VIAL IV PRN ×2 (05:39→08:38)
[2019-08-01] MEDS: carvediloL 6.25 MG TAB PO SCH ×2 (06:38→20:00)
[2019-08-01] MEDS: AMLODIPINE BESYLATE 5 MG TAB PO SCH (06:38)
[2019-08-01] MEDS: INSULIN ASPART 100 UNITS/ML 3 ML PEN SC SCH ×4 (07:28→20:46)
[2019-08-01] MEDS: CHECK FENTANYL PATCH PLACEMENT SCH ×2 (07:38→15:43)
[2019-08-01] MEDS: MAGNESIUM OXIDE 400 MG TAB PO SCH ×2 (08:13→20:01)
[2019-08-01] MEDS: CALCIUM 600MG + VIT D 400 IU TAB PO SCH ×2 (08:13→20:00)
[2019-08-01] MEDS: ATORVASTATIN 40 MG TAB PO SCH (08:13)
[2019-08-01] MEDS: CEROVITE ADV FORMULA TAB PO SCH (08:13)
[2019-08-01] MEDS ORDERED: POTASSIUM CHLORIDE 20 MEQ TABCR PO STA (08:42)
[2019-08-01] MEDS ORDERED: carvediloL 6.25 MG TAB PO SCH (09:00)
[2019-08-01] MEDS ORDERED: AMLODIPINE BESYLATE 5 MG TAB PO SCH (09:00)
--- NOTE | 2019-08-01 09:07 | Gastrointestinal Consultation ---
Date of Consultation August 01, 2019 Assessment & Plan (1) Diarrhea: 69 year old female with history of CVS admitted w/ nausea, vomiting and diarrhea. She has mild leykocytosis w/ stable H&H, plt count. Her LFTs and lipase are non-elevated and her BUN is normal. CT w/ ?colitis which has been on prior CTs as well but she does note recent issues with watery, frequent stools. There was concern for heme + gastric specimen, she did have an episode of emesis this AM which was clear w/o any coffee ground appearance or hematemesis Submit stool studies OP colonoscopy NPO for bowel rest but can trial clears when ready IV PPI BID while admitted then PO once daily at discharge Would continue anti-emetics (zofran, phenergan) as ordered for now If symptoms persist, can discuss emend Thank you for allowing us to participate in the care of this patient. Please call with any acute changes, questions or concerns. Please see addendum below with additional recommendation from my supervising physician. Present on Admission?: Yes (2) Intractable nausea and vomiting: Present on Admission?: Yes Supervising Physician Co-Signing Physician Notes I have performed a history and physical examination of this patient and reviewed the electronic medical record. Specifically, on physical examination there is mild abdominal tenderness. I suggest a trial of Imitrex for her cyclic vomiting. I have discussed the case with NUPUR Allen. The above note reflects my findings, conclusions, and recommendations. Alexx Mckenzie MD History of Present Illness Reason for Consultation: N/V Requesting Physician: Uriel Attending Physician: Carissa Trevino MD History of Present Illness 69 year old female admitted w/ N/V, history of CVS, HTN, HLD, Hypothyroidism, Chronic pain syndrome, multiple thoracic/lumbar spinal surgeries and PTSD. GI asked to evalaute for N/V. Pt was seen and evaluated, chart reviewed. Endorses abd pain, N/V that started about 48 hours ago. Emesis was clear, bile to start. Suggests that two days ago she noted some BRB in her vomit but has had clear, bilious emesis since. She did just vomit earlier this AM and this appears to be clear. No black/bloody stools. She does have epigastric abd pain. Constant. Slightly improved w/ emesis. CT: No bowel obstruction.Circumferential wall thickening of the colon involving the ascending, transverse and descending segments may be secondary to partial distention versus a mild colitis. Correlate clinically.Nonobstructing left ne phrolithiasis. Small hiatal hernia with mild wall thickening of the distal esophagus. Colonic diverticulosis without acute diverticulitis.Additional findings as above. Allergies Allergy/AdvReac Type Severity Reaction Status Date / Time latex Allergy Intermediate Rash Verified 07/30/19 13:57 nickel Allergy Intermediate SEVERE Verified 07/30/19 13:57 DERMATITIS NSAIDS (Non-Steroidal Allergy Intermediate HX OF Verified 07/30/19 13:57 Anti-Inflamma BLEEDING ULCERS-TO AVOID aspirin AdvReac Intermediate bleeding Verified 07/30/19 13:57 ulcers Home Medications Home Medications Medication Instructions Recorded Confirmed Type atorvastatin [Lipitor] 40 mg PO QAM 12/13/18 07/30/19 History buspirone 10 mg PO TID 12/13/18 07/30/19 History hydroxyzine HCl 75 mg PO HS 12/13/18 07/30/19 History levothyroxine 75 mcg PO QAM 12/13/18 07/30/19 History tizanidine [Zanaflex] 4 mg PO BID PRN 12/13/18 07/30/19 History pramipexole [Mirapex] 0.125 mg PO HS 01/25/19 07/30/19 History tramadol [Ultram] 50 mg PO Q8 PRN 01/25/19 07/30/19 History potassium chloride [Klor-Con M20] 20 meq PO BID 03/30/19 07/30/19 History ondansetron HCl [Zofran] 8 mg PO Q6H PRN 05/12/19 07/30/19 History polyethylene glycol 3350 17 g PO DAILY PRN 05/12/19 07/30/19 History prochlorperazine maleate 10 mg PO BID PRN 05/12/19 07/30/19 History promethazine 25 mg PO Q6H PRN 05/12/19 07/30/19 History trazodone 200 mg PO HS 05/12/19 07/30/19 History Calcium 600 + D(3) 1 cap PO BID 05/23/19 07/30/19 History Ocuvite Adult 50 Plus 1 cap PO QAM 05/23/19 07/30/19 History aspirin [Aspir-81] 81 mg PO QAM 05/23/19 07/30/19 History epinephrine 0.3 mg IM Q3H PRN 05/23/19 07/30/19 History magnesium oxide 400 mg PO BID 05/23/19 07/30/19 History nitroglycerin [Nitrostat] 0.3 mg SUBLINGUAL UD 05/23/19 07/30/19 History nystatin 1 applic TOPICAL TID PRN 05/23/19 07/30/19 History olopatadine 1 drp OPHTHALMIC (EYE) QAM 05/23/19 07/30/19 History fentanyl [Duragesic] 1 patch TOPICAL [id number] 05/26/19 07/30/19 History fentanyl [Duragesic] 1 patch TOPICAL [id number] 05/26/19 07/30/19 History mirtazapine 7.5 mg PO HS 07/03/19 07/30/19 History pantoprazole 40 mg PO QAM 07/03/19 07/30/19 History amlodipine [Norvasc] 5 mg PO QAM 30 Days #30 tab 07/05/19 07/30/19 Rx hydrochlorothiazide 25 mg PO QAM 30 Days #30 tab 07/05/19 07/30/19 Rx Patient History Medical History Hyperlipidemia (Chronic) Chronic pain (Chronic) Scoliosis (Chronic) Cervical spondylolysis (Chronic) Dyslipidemia (Chronic) Cyclical vomiting (Chronic) Mood disorder (Chronic) CAD (coronary artery disease) (Chronic) 2016-BMS to LAD Hypertension (Chronic) Myocardial Infarction (Chronic) 2 YEARS AGO Pulmonary embolism (Chronic) 2 YEARS OLD (UNSURE OF REASON) Deep vein thrombosis (Chronic) 4 YEARS AGO Migraine (Chronic) Restless leg syndrome (Chronic) Anxiety (Chronic) Depression (Chronic) Post traumatic stress disorder (Chronic) Anemia (Chronic) HX OF Hypothyroidism (Chronic) Colitis (Chronic) Osteoarthritis (Chronic) Degenerative disc disease (Chronic) Surgical History History of vascular access device (Chronic) PORT LEFT UPPER CHEST-IN PLACE H/O spinal fusion (Chronic) "1st surgery in [place], then multiple surgeries Dr. Catherine at [facility] [place]" H/O repair of right rotator cuff (Chronic) H/O ovarian cystectomy (Chronic) History of heart artery stent (Chronic) 2017- STENT PLACED AT [facility] [place] (DR. DAVILA) History of adenoidectomy (Chronic) History of tonsillectomy (Chronic) History of appendectomy (Chronic) Fusion of spine (Chronic) LUMBAR History of laminectomy (Chronic) LUMBAR Ovarian cyst (Chronic) X 2 History of anesthesia reaction (Chronic) WOKE UP IN MIDDLE OF SPINAL SURGERIES History of cataract surgery (Chronic) LEFT AND RIGHT Family History Mother Hypertension Father Hypertension Social History Preferred Language: Kazakh Communication Ability: Effective Doctor Of Naprapathic Medicine Required: No Beliefs That Will Affect Care: None marital status: Single Current Living Situation: Alone current occupational status: retired Other Information That Helps Us Care for You: No Feels Safe at Home: Yes Safety Concerns: Feels Safe At This Time Smoking Status: Never smoker Second Hand Exposure: No ; Hx Alcohol Use: No Hx Substance Use: No Review of Systems Constitutional: no fever and no chills Respiratory: no cough Cardiovascular: no chest pain Gastrointestinal: + abdominal pain, + heartburn, + nausea and + vomiting; no coffee ground emesis, no hematemesis, no pain with swallowing, no dysphagia, no cramping, no excessive flatulence, no change in bowel habits, no change in stools, no constipation, no diarrhea/loose stools, no fecal incontinence, no constant urge to pass stools, no melena and no problem reported Physical Exam Constitutional: no acute distress and not ill appearing Neck: trachea midline Cardiovascular: Rate/Rhythm: regular rate and regular rhythm Gastrointestinal (Abdomen): Inspection/Auscultation: abdomen normal to inspection and normal bowel sounds Percussion/Palpation: + abdomen tender and abdomen soft; no guarding and abdomen not rigid Skin: no rashes, warm and dry Results & Data Vital Signs (Past 12 Hours) Vital Signs Temp Pulse Pulse Resp BP BP Pulse Ox 08/01/19 08:27 173/103 H 08/01/19 07:14 93 H 08/01/19 07:00 37.0 C 98 H 16 180/104 H 90 08/01/19 05:25 95 H 173/100 H 08/01/19 03:30 36.9 C 86 20 181/107 H 92 08/01/19 01:48 90 07/31/19 22:30 36.9 C 95 H 18 158/92 H 95 07/31/19 21:46 169/85 H
[2019-08-01 09:24] LABS: Hemoglobin 14.7 g/dL (12.0-16.0); Mean Corpuscular Hemoglobin 28.9 pg (25-34); Mean Corpuscular Hgb Conc 34.2 g/dL (32-36); Mean Corpuscular Volume 84.5 fL (80-100); Mean Platelet Volume 8.8 fL (7.4-10.4); Platelet Count 400 K/uL (130-400); RDW Standard Deviation 43.4 fL (36.4-46.3); Red Blood Count 5.09 M/uL (4.2-5.4); White Blood Count 12.63 K/uL (4.8-10.8)
[2019-08-01] MEDS: hydroCHLOROthiazide 25 MG TAB PO SCH (09:38)
[2019-08-01 09:57] LABS: BUN Creatinine Ratio 20.8 (10-20); Calcium 9.4 mg/dl (8.5-10.1); Creatinine Clr Calc Pharmacy 77.7 ml/min; Est GFR (African American) 101.5; Est GFR (Non-African American) 87.6; Potassium 3.6 mmol/L (3.5-5.1)
[2019-08-01] MEDS: PANTOprazole 40 MG in SYRINGE 0 ML IV SCH ×2 (11:47→20:01)
[2019-08-01] MEDS: TRAMADOL HCL 50 MG TABLET PO PRN (13:49)
[2019-08-01] MEDS: LORazepam 0.5 MG TAB PO PRN (16:14)
[2019-08-01] MEDS ORDERED: LABETALOL HCL IV 5 MG/ML 20ML IV ONE (19:00)
--- NOTE | 2019-08-01 19:33 | Hospitalist Progress Note ---
Date of Service August 01, 2019 Assessment & Plan (1) Intractable nausea and vomiting: (2) Cyclical vomiting: HEME POSITIVE GASTRIC CONTENTS Present on admission with episodes of nausea an vomiting CT abd/pelvis showed circumferential wall thickening of the colon involving the ascending, transverse and descending segments may be secondary to partial distention versus a mild colitis. KUB showed nonobstructive bowel gas pattern. Continue clear liquid diet gastro on board recommended intranasal imitrex (not sure if this is a good option due to elevate BP ) Transition to IV PPI BID Hemoglobin stable Continue Phenergan and Zofran Continue IV flagyl for now Will encourage to try clear liquid diet Hypertensive urgency Seems to be related with Anxiety Continue Amlodipine 10 mg daily Will HCTZ 25 mg since Vomiting improves Advised pt to follow a low salt diet On Hydralazine PRN Elevated WBC Possible related to colitis vs reactive Temp 37.7 WBC trending down to 12K Continue Flagyl IV for now Monitor CBC CAD (coronary artery disease) H/o stent in 2017 Denies any chest pain Continue aspirin, statin, lopressor with hold parameters Hypothyroidism Continue levothyroxine Mood disorder: Continue Buspar, trazodone HS Anxiety Anxiety has gotten worst As been request for Ativan Psych Consult as per patient request Restless leg syndrome: Continue Mirapex DVT Ppx: On Lovenox subq Code status: FULL Subjective Pt was seen and examined Lying in bed with no distress Pt said that she is not feeling well She said that she is very anxious She said that the Ativan works and asking for more Last episode of vomiting was this morning Has not been eating much due to dry hives Physical Exam Physical Exam: General- No acute distress Head- atraumatic Eyes- PERRL, EOMI, ENT- oropharynx clear Neck- supple, no JVD Lungs- clear to auscultation Heart- regular rhythm; no murmur Abdomen- normal bowel sounds, +tenderness Extremities- no calf tenderness Neuro- alert, oriented x 3; PERRL, EOMI; no facial palsy; no dysarthria Skin- warm & dry Results & Data Vital Signs (Past 12 Hours) Vital Signs Temp Pulse Resp BP BP Pulse Ox 08/01/19 19:28 36.7 C 93 H 17 153/93 H 96 08/01/19 18:04 167/105 H 08/01/19 16:52 174/110 H 08/01/19 15:40 24 170/109 H 08/01/19 15:22 97 08/01/19 11:00 36.7 C 98 H 18 175/109 H 93 08/01/19 09:33 150/86 H 08/01/19 08:27 173/103 H
[2019-08-01] MEDS: PRAMIPEXOLE DIHYDROCHLO 0.25 MG TAB PO SCH (20:01)
[2019-08-01] MEDS: TRAZODONE HCL 100 MG TAB PO SCH (20:01)
[2019-08-01] MEDS: MIRTAZAPINE TAB 15 MG TAB PO SCH (20:02)
[2019-08-02] MEDS: CHECK FENTANYL PATCH PLACEMENT SCH ×4 (00:05→23:48)
[2019-08-02] MEDS: PROMETHAZINE HCL 12.5 MG in SODIUM CHLORIDE 0.9% 50 ML IV PRN (00:39)
[2019-08-02] MEDS: LORazepam 0.5 MG TAB PO PRN ×2 (04:19→15:34)
[2019-08-02] MEDS: LEVOTHYROXINE SODIUM 75 MCG TABLET PO SCH (06:30)
[2019-08-02] MEDS: HEPARIN 100 UNIT/ML 5ML FLUSH FLUSH PRN ×2 (07:30→09:34)
[2019-08-02] MEDS: INSULIN ASPART 100 UNITS/ML 3 ML PEN SC SCH ×4 (08:17→21:11)
[2019-08-02] MEDS: MAGNESIUM OXIDE 400 MG TAB PO SCH ×2 (08:18→21:08)
[2019-08-02] MEDS: CALCIUM 600MG + VIT D 400 IU TAB PO SCH ×2 (08:18→21:08)
[2019-08-02] MEDS: CEROVITE ADV FORMULA TAB PO SCH (08:18)
[2019-08-02] MEDS: hydroCHLOROthiazide 25 MG TAB PO SCH (08:18)
[2019-08-02] MEDS: carvediloL 6.25 MG TAB PO SCH ×2 (08:18→21:14)
[2019-08-02] MEDS: ATORVASTATIN 40 MG TAB PO SCH (08:18)
[2019-08-02] MEDS: ONDANSETRON INJ 2 MG/ML 2 ML VIAL IV PRN (08:19)
[2019-08-02] MEDS: AMLODIPINE BESYLATE 5 MG TAB PO SCH (08:19)
[2019-08-02] MEDS: PANTOprazole 40 MG in SYRINGE 0 ML IV SCH ×2 (08:19→21:07)
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
[2019-08-02 10:21] LABS: BUN Creatinine Ratio 24.1 (10-20); Calcium 9.6 mg/dl (8.5-10.1); Creatinine Clr Calc Pharmacy 57.1 ml/min; Est GFR (African American) 70.7; Potassium 3.3 mmol/L (3.5-5.1)
[2019-08-02] MEDS: SODIUM CHLORIDE 0.9% 1000ML 1,000 ML IV SCH (13:39)
[2019-08-02] MEDS: TRAMADOL HCL 50 MG TABLET PO PRN (15:34)
--- NOTE | 2019-08-02 17:16 | Hospitalist Progress Note ---
Date of Service August 02, 2019 Assessment & Plan (1) Intractable nausea and vomiting: (2) Cyclical vomiting: HEME POSITIVE GASTRIC CONTENTS Present on admission with episodes of nausea an vomiting CT abd/pelvis showed circumferential wall thickening of the colon involving the ascending, transverse and descending segments may be secondary to partial distention versus a mild colitis. KUB showed nonobstructive bowel gas pattern. Continue clear liquid diet gastro on board recommended intranasal imitrex (not sure if this is a good option due to elevate BP ) Continue IV PPI BID Hemoglobin stable Continue Phenergan and Zofran Continue IV flagyl for now Tolerated diet as tolerated Hypertensive urgency Seems to be related with Anxiety BP improved Continue Amlodipine 10 mg daily resumed HCTZ 25 mg since Vomiting improves Advised pt to follow a low salt diet On Hydralazine PRN Hyponatremia Due to poor oral intake due to nausea and vomiting Na dropped to 126 today Starting on IVF with NSS If Na continues to drop, will hold HCTZ again Monitor BMP Elevated WBC Possible related to colitis vs reactive Temp 37.7 WBC trending down to 12K Continue Flagyl IV for now Monitor CBC CAD (coronary artery disease) H/o stent in 2017 Denies any chest pain Continue aspirin, statin, lopressor with hold parameters Hypothyroidism Continue levothyroxine Mood disorder: Continue Buspar, trazodone HS Anxiety Anxiety has gotten worst As been asking for more for Ativan Psych on board recommended to start on hydralazine prn for anxiety Due to history of abusing benzodiazepines and narcotic medications no benzo on discharge OK to continue Lorazepam 0.5 mg q12h prn while inpatient Continue monitor closely Restless leg syndrome: Continue Mirapex DVT Ppx: On Lovenox subq Code status: FULL Subjective Pt was seen and examined Lying in bed with no distress Pt has been sleeping for most of the day today She said that she vomited this morning She said that she feels a little better today Nurse said that she asked for a chicken salad for dinner She said that her nausea improves Denies any chest pain, palpitation and SOB Physical Exam Physical Exam: General- No acute distress Head- atraumatic Eyes- PERRL, EOMI, ENT- oropharynx clear Neck- supple, no JVD Lungs- clear to auscultation Heart- regular rhythm; no murmur Abdomen- normal bowel sounds, +tenderness Extremities- no calf tenderness Neuro- alert, oriented x 3; PERRL, EOMI; no facial palsy; no dysarthria Skin- warm & dry Results & Data Vital Signs (Past 12 Hours) Vital Signs Temp Pulse Pulse Pulse Resp BP BP 08/02/19 15:27 36.9 C 92 H 18 136/79 08/02/19 14:54 101 H 08/02/19 08:37 100 H 08/02/19 08:03 37.2 C 100 H 17 155/92 H Pulse Ox 08/02/19 15:27 90 08/02/19 14:54 08/02/19 08:37 08/02/19 08:03 91
[2019-08-02] MEDS: fentaNYL 12 MCG/HR TDSY TD SCH (18:05)
[2019-08-02] MEDS: fentaNYL 25 MCG/HR TDSY TD SCH (18:05)
[2019-08-02] MEDS: TRAZODONE HCL 100 MG TAB PO SCH (21:08)
[2019-08-02] MEDS: MIRTAZAPINE TAB 15 MG TAB PO SCH (21:09)
[2019-08-02] MEDS: PRAMIPEXOLE DIHYDROCHLO 0.25 MG TAB PO SCH (21:09)
[2019-08-03] MEDS: SODIUM CHLORIDE 0.9% 1000ML 1,000 ML IV SCH ×2 (02:41→17:05)
[2019-08-03] MEDS: LORazepam 0.5 MG TAB PO PRN ×2 (04:57→17:47)
[2019-08-03] MEDS: LEVOTHYROXINE SODIUM 75 MCG TABLET PO SCH (04:58)
[2019-08-03 06:11] LABS: Hematocrit (blood only) 40.9 % (37-47); Hemoglobin 14.1 g/dL (12.0-16.0); Mean Corpuscular Hemoglobin 28.7 pg (25-34); Mean Corpuscular Hgb Conc 34.5 g/dL (32-36); Mean Corpuscular Volume 83.3 fL (80-100); Mean Platelet Volume 8.7 fL (7.4-10.4); Platelet Count 356 K/uL (130-400); RDW Standard Deviation 42.5 fL (36.4-46.3); Red Blood Count 4.91 M/uL (4.2-5.4); White Blood Count 12.41 K/uL (4.8-10.8)
[2019-08-03 06:51] LABS: BUN Creatinine Ratio 30.5 (10-20); Calcium 8.6 mg/dl (8.5-10.1); Creatinine Clr Calc Pharmacy 61.7 ml/min; Est GFR (African American) 77.7; Potassium 3.1 mmol/L (3.5-5.1)
[2019-08-03] MEDS: carvediloL 6.25 MG TAB PO SCH ×2 (08:32→20:41)
[2019-08-03] MEDS: CEROVITE ADV FORMULA TAB PO SCH (08:32)
[2019-08-03] MEDS: AMLODIPINE BESYLATE 5 MG TAB PO SCH (08:32)
[2019-08-03] MEDS: ATORVASTATIN 40 MG TAB PO SCH (08:32)
[2019-08-03] MEDS: MAGNESIUM OXIDE 400 MG TAB PO SCH ×2 (08:33→20:42)
[2019-08-03] MEDS: hydroCHLOROthiazide 25 MG TAB PO SCH (08:33)
[2019-08-03] MEDS: CALCIUM 600MG + VIT D 400 IU TAB PO SCH ×2 (08:33→20:41)
[2019-08-03] MEDS: INSULIN ASPART 100 UNITS/ML 3 ML PEN SC SCH ×4 (08:34→20:47)
[2019-08-03] MEDS: CHECK FENTANYL PATCH PLACEMENT SCH ×2 (08:34→16:21)
[2019-08-03] MEDS: PANTOprazole 40 MG in SYRINGE 0 ML IV SCH (08:37)
[2019-08-03] MEDS: TRAMADOL HCL 50 MG TABLET PO PRN ×2 (08:51→17:05)
[2019-08-03] MEDS: ONDANSETRON INJ 2 MG/ML 2 ML VIAL IV PRN ×2 (08:52→15:03)
[2019-08-03] MEDS ORDERED: POTASSIUM CHLORIDE 20 MEQ TABCR PO STA (10:25)
[2019-08-03] MEDS: POTASSIUM CHLORIDE / WTR 10 MEQ/100 ML PLCT IV SCH ×3 (11:26→13:27)
--- NOTE | 2019-08-03 11:58 | Hospitalist Progress Note ---
Date of Service August 03, 2019 Assessment & Plan (1) Intractable nausea and vomiting: HEME POSITIVE GASTRIC CONTENTS -Admit to [facility] with telemetry -Patient presented from home with reports of persistent nausea and vomiting that began at 5 AM this morning -History of cyclic vomiting syndrome -Managed with supportive care including intravenous fluid and intravenous PPI initially -Gastric contents tested heme positive - ? Due to gastritis /Molly-Ferrari tear from persistent vomiting -EGD 2015 showed hiatal hernia; colonoscopy 2018 showed sigmoid diverticulosis -Appreciate GI input and recommendation -Clinically little better -Diet advanced (2) Cyclical vomiting: HEME POSITIVE GASTRIC CONTENTS Present on admission with episodes of nausea an vomiting CT abd/pelvis showed circumferential wall thickening of the colon involving the ascending, transverse and descending segments may be secondary to partial distention versus a mild colitis. KUB showed nonobstructive bowel gas pattern. Has been getting symptomatic management Clinically better and diet advanced No more vomiting as of this morning Hypertensive urgency Seems to be related with Anxiety BP improved Continue Amlodipine 10 mg daily resumed HCTZ 25 mg since Vomiting improves Blood pressure is controlled Hyponatremia Due to poor oral intake due to nausea and vomiting Na dropped to 126 today Starting on IVF with NSS If Na continues to drop, will hold HCTZ again Sodium level has been normal today at 134 Elevated WBC Possible related to colitis vs reactive Temp 37.7 WBC trending down to 12K Continue Flagyl IV for now CBC remains at 12.4,slightly elevated CAD (coronary artery disease) H/o stent in 2017 Continue aspirin, statin, lopressor with hold parameters Denies any chest pain Hypothyroidism Continue levothyroxine Mood disorder: Continue Buspar, trazodone HS Anxiety Anxiety has gotten worst As been asking for more for Ativan Psych on board recommended to start on hydralazine prn for anxiety Due to history of abusing benzodiazepines and narcotic medications no benzo on discharge OK to continue Lorazepam 0.5 mg q12h prn while inpatient Continue monitor closely Will not provide any benzodiazepines on discharge PT and OT has been ordered Like to be discharged this afternoon or tomorrow morning Restless leg syndrome: Continue Mirapex DVT Ppx: On Lovenox subq Code status: FULL Subjective 08/03 The patient was seen and examined in medical telemetry unit She denies any nausea and vomiting today but has had nausea last night She remains weak and lethargic the hospital and has not been up and about Denies any significant symptoms today and has been tolerating advance diet Review of Systems Review of Systems: All systems reviewed and are unremarkable except as noted below Gastrointestinal: + bloating and + nausea; no abdominal pain and no vomiting Musculoskeletal: No acute arthritis in any of the joint Physical Exam Physical Exam: Lying in bed comfortably, does look depressed Constitutional: WD/WN, vitals as above + ill appearing; no acute distress Eyes: PERRL, conjunctivae normal, anicteric sclerae ENMT: external ear and nose normal, oropharynx normal Neck: trachea midline, no thyromegaly Respiratory: normal respiratory effort; no respiratory distress Cardiovascular: Rate/Rhythm: regular rate and regular rhythm Vessels: normal peripheral pulses Extremities: no edema Gastrointestinal (Abdomen): Inspection/Auscultation: normal bowel sounds; abdomen not distended Percussion/Palpation: abdomen soft; abdomen nontender (Diffusely) and no hepatosplenomegaly Musculoskeletal: No acute arthritis in any joint Skin: no rashes, warm and dry Neurologic: moves all extremities; no focal motor deficits Alert, 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 Generally weak Psychiatric: A+Ox3, euthymic affect Results & Data Vital Signs (Past 12 Hours) Vital Signs Temp Pulse Pulse Resp BP BP Pulse Ox 08/03/19 07:24 82 08/03/19 07:12 36.6 C 80 20 125/79 92 08/03/19 04:14 36.6 C 78 18 126/85 92 Laboratory Results Short CBC 08/03/19 Range/Units 06:00 WBC 12.41 H (4.8-10.8) K/uL Hgb 14.1 (12.0-16.0) g/dL Hct 40.9 (37-47) % Plt Count 356 (130-400) K/uL BMP 08/03/19 06:00 Sodium 134 L D Potassium 3.1 L Chloride 100 Carbon Dioxide 27 BUN 27 H Creatinine 0.87 Glucose 97 Calcium 8.6 Medications Administered Current Inpatient Medications Acetaminophen (Tylenol) 650 mg PO Q4H PRN PRN Reason: pain/fever Stop: 08/29/19 16:51 Amlodipine Besylate (Norvasc) 10 mg PO [facility] Stop: 08/31/19 05:44 Last Admin: 08/03/19 08:32 Dose: 10 mg Documented by: Atorvastatin Calcium (Lipitor) 40 mg PO [facility] Stop: 08/30/19 08:59 Last Admin: 08/03/19 08:32 Dose: 40 mg Documented by: Buspirone HCl (Buspar) 10 mg PO TID [facility] Stop: 08/29/19 20:59 Last Admin: 08/03/19 08:32 Dose: 10 mg Documented by: Carvedilol (Coreg) 6.25 mg PO BID [facility] Stop: 08/31/19 05:44 Last Admin: 08/03/19 08:32 Dose: 6.25 mg Documented by: Dextrose (Dextrose 50%) 25 - 50 ml IV UD PRN; Protocol PRN Reason: Hypoglycemia Protocol Stop: 08/29/19 20:51 Fentanyl (Duragesic) 25 mcg TD Q72H [facility] Stop: 08/13/19 17:59 Last Admin: 08/02/19 18:05 Dose: 25 mcg Documented by: Fentanyl (Duragesic) 12 mcg TD Q72H [facility] Stop: 08/13/19 17:59 Last Admin: 08/02/19 18:05 Dose: 12 mcg Documented by: Glucagon (Glucagen) 1 mg SQ UD PRN; Protocol PRN Reason: Hypoglycemia Protocol Stop: 08/29/19 20:51 Glucose (Dex4 Glucose) 4 - 8 tabs PO UD PRN; Protocol PRN Reason: Hypoglycemia Protocol Stop: 08/29/19 20:51 Glucose (Glucose 40%) 15 - 30 gm PO UD PRN; Protocol PRN Reason: Hypoglycemia Protocol Stop: 08/29/19 20:51 Heparin Sodium (Porcine) (Heparin Sod 100 Unit/Ml Flush) 5 ml FLUSH PRN PRN PRN Reason: Flush Stop: 08/30/19 00:29 Last Admin: 08/02/19 09:34 Dose: 5 ml Documented by: Hydralazine HCl (Hydralazine Hcl) 10 mg IV Q6H PRN PRN Reason: SBP above 170 Stop: 08/30/19 19:15 Last Admin: 08/01/19 15:41 Dose: 10 mg Documented by: Hydrochlorothiazide (Hctz) 25 mg PO QAM [facility] Stop: 08/31/19 09:29 Last Admin: 08/03/19 08:33 Dose: 25 mg Documented by: Hydroxyzine HCl (Vistaril) 25 mg PO Q4H PRN PRN Reason: Anxiety Stop: 09/01/19 12:09 Last Admin: 08/02/19 19:40 Dose: 25 mg Documented by: Hydroxyzine HCl (Vistaril) 100 mg PO HS COLT Stop: 09/01/19 20:59 Last Admin: 08/02/19 21:09 Dose: 100 mg Documented by: Promethazine HCl 12.5 mg/ (Sodium Chloride) 50.5 mls @ 202 mls/hr IV Q6H PRN PRN Reason: Nausea And Vomiting Stop: 08/29/19 16:51 Last Infusion: 08/02/19 00:54 Dose: Infused Documented by: Pantoprazole Sodium 40 mg/ (Syringe) 10 mls @ 5 mls/min IV BID@0900,2100 [facility] Stop: 08/31/19 08:59 Last Admin: 08/03/19 08:37 Dose: 5 mls/min Documented by: Sodium Chloride (Nss 1000ml) 1,000 mls @ 70 mls/hr IV .[id number] [facility] Stop: 09/01/19 12:44 Last Admin: 08/03/19 02:41 Dose: 70 mls/hr Documented by: Potassium Chloride (K Sai / Wtr) 10 meq in 100 mls @ 100 mls/hr IV Q1H COLT Stop: 08/03/19 13:59 Last Admin: 08/03/19 11:26 Dose: 100 mls/hr Documented by: Insulin Aspart (Novolog Flexpen) 0 units SC ACHS COLT Stop: 08/29/19 20:59 Last Admin: 08/03/19 08:34 Dose: Not Given Documented by: Ioversol (Optiray 320 100ml) 93 ml IV ONCE PRN PRN Reason: Interaction Checking Stop: 08/03/19 22:24 Last Admin: 07/30/19 22:27 Dose: 93 ml Documented by: Levothyroxine Sodium (Synthroid) 75 mcg PO DAILYBB COLT Stop: 08/30/19 06:29 Last Admin: 08/03/19 04:58 Dose: 75 mcg Documented by: Lorazepam (Ativan) 0.5 mg PO Q12H PRN PRN Reason: Anxiety Stop: 08/31/19 15:41 Last Admin: 08/03/19 04:57 Dose: 0.5 mg Documented by: Magnesium Oxide (Mag-Ox) 400 mg PO BID [facility] Stop: 08/29/19 20:59 Last Admin: 08/03/19 08:33 Dose: 400 mg Documented by: Mirtazapine (Remeron) 7.5 mg PO HS [facility] Stop: 08/29/19 20:59 Last Admin: 08/02/19 21:09 Dose: 7.5 mg Documented by: Miscellaneous (Fentanyl Patch Check Placement) 1 ea N/A QS [facility] Stop: 08/30/19 00:00 Last Admin: 08/03/19 08:34 Dose: 1 ea Documented by: Hannahcellaneous (Fentanyl Patch Remove & Waste) 1 ea N/A Q3D [facility] Stop: 09/01/19 17:59 Last Admin: 08/02/19 18:05 Dose: 1 ea Documented by: Hannahcellaneous (Order Awaiting Action) 1 ea N/A QS [facility] Stop: 08/30/19 00:00 Last Admin: 08/03/19 08:33 Dose: Not Given Documented by: Miscellaneous (Fentanyl Patch Remove & Waste) 1 ea N/A Q3D [facility] Stop: 09/01/19 17:59 Last Admin: 08/02/19 18:05 Dose: 1 ea Documented by: Miscellaneous (Carbohydrates For Hypoglycemia) 15 - 30 gm PO UD PRN PRN Reason: Hypoglycemia Treatment Stop: 08/29/19 20:51 Multivitamins/Minerals (Caltrate Plus) 1 tab PO BID [facility] Stop: 08/29/19 20:59 Last Admin: 08/03/19 08:33 Dose: 1 tab Documented by: Multivitamins/Minerals (Multivitamin W/ Minerals Tab) 1 tab PO QAM [facility] Stop: 08/30/19 08:59 Last Admin: 08/03/19 08:32 Dose: 1 tab Documented by: Ondansetron HCl (Zofran) 4 mg IV Q6H PRN PRN Reason: Nausea Stop: 08/29/19 16:51 Last Admin: 08/03/19 08:52 Dose: 4 mg Documented by: Pramipexole Dihydrochloride (Mirapex) 0.125 mg PO HS [facility] Stop: 08/29/19 20:59 Last Admin: 08/02/19 21:09 Dose: 0.125 mg Documented by: Tramadol HCl (Ultram) 50 mg PO Q8 PRN PRN Reason: severe pain Stop: 08/29/19 16:51 Last Admin: 08/03/19 08:51 Dose: 50 mg Documented by: Trazodone HCl (Desyrel) 200 mg PO HS COLT Stop: 08/29/19 20:59 Last Admin: 08/02/19 21:08 Dose: 200 mg Documented by:
[2019-08-03] MEDS: PANTOprazole 40 MG TAB PO SCH (20:40)
[2019-08-03] MEDS: MIRTAZAPINE TAB 15 MG TAB PO SCH (20:42)
[2019-08-03] MEDS: TRAZODONE HCL 100 MG TAB PO SCH (20:42)
[2019-08-03] MEDS: PRAMIPEXOLE DIHYDROCHLO 0.25 MG TAB PO SCH (20:42)
[2019-08-04] MEDS: CHECK FENTANYL PATCH PLACEMENT SCH ×2 (00:14→09:29)
[2019-08-04] MEDS: ONDANSETRON INJ 2 MG/ML 2 ML VIAL IV PRN (01:47)
[2019-08-04] MEDS: LORazepam 0.5 MG TAB PO PRN (06:30)
[2019-08-04] MEDS: SODIUM CHLORIDE 0.9% 1000ML 1,000 ML IV SCH (06:30)
[2019-08-04] MEDS: LEVOTHYROXINE SODIUM 75 MCG TABLET PO SCH (06:31)
[2019-08-04] MEDS: carvediloL 6.25 MG TAB PO SCH (08:46)
[2019-08-04] MEDS: AMLODIPINE BESYLATE 5 MG TAB PO SCH (08:46)
[2019-08-04] MEDS: CALCIUM 600MG + VIT D 400 IU TAB PO SCH (08:46)
[2019-08-04] MEDS: CEROVITE ADV FORMULA TAB PO SCH (08:46)
[2019-08-04] MEDS: hydroCHLOROthiazide 25 MG TAB PO SCH (08:46)
[2019-08-04] MEDS: PANTOprazole 40 MG TAB PO SCH (08:46)
[2019-08-04] MEDS: ATORVASTATIN 40 MG TAB PO SCH (08:46)
[2019-08-04] MEDS: MAGNESIUM OXIDE 400 MG TAB PO SCH (08:46)
[2019-08-04] MEDS: INSULIN ASPART 100 UNITS/ML 3 ML PEN SC SCH (08:47)
[2019-08-04 09:30] LABS: Basophils # (auto) 0.05 K/uL (0-0.2); Basophils % (auto) 0.5 %; Eosinophils # (auto) 0.46 K/uL (0-0.5); Hematocrit (blood only) 37.6 % (37-47); Hemoglobin 12.5 g/dL (12.0-16.0); Immature Granulocytes # (auto) 0.02 K/uL (0.00-0.02); Immature Granulocytes % (auto) 0.2 %; Lymphocytes # (auto) 2.73 K/uL (1.2-3.4); Lymphocytes % (auto) 29.9 %; Mean Corpuscular Hemoglobin 28.3 pg (25-34); Mean Corpuscular Hgb Conc 33.2 g/dL (32-36); Mean Corpuscular Volume 85.3 fL (80-100); Mean Platelet Volume 8.8 fL (7.4-10.4); Monocytes # (auto) 1.31 K/uL (0.11-0.59); Monocytes % (auto) 14.4 %; Neutrophils # (auto) 4.55 K/uL (1.4-6.5); Platelet Count 312 K/uL (130-400); RDW Coefficient of Variation 14.1 % (11.5-14.5); RDW Standard Deviation 44.2 fL (36.4-46.3); Red Blood Count 4.41 M/uL (4.2-5.4); White Blood Count 9.12 K/uL (4.8-10.8)
--- NOTE | 2019-08-04 09:46 | Communication Note ---
Date of Service: August 04, 2019 Received records from [facility] regarding outpatient psychiatric treatment. Lurasidone 20mg was listed as an active medication, not originally entered on patient's home medication list. It has been restarted, to be taken daily with dinner. Home psychiatric medication list includes: 1. Mirtazapine 7.5mg qHS 2. Hydroxyzine 75mg qHS 3. Latuda 20mg qHS with food 4. Buspirone 10mg TID; with 10mg prn dose available once daily 5. Trazodone 200mg qHS Continue current treatment plan, with hydroxyzine 25mg q4h prn being offered for anxiety. She has only utilized one dose per day over the last two days. Review of patient's case with psychiatric nurse liaison suggested patient was to be evaluated today to determine if appropriate to return home, or if an inpatient physical rehabilitation stay would be recommended. We will continue to follow along with her case. Will need to confirm she has scheduled aftercare appointments at [facility] for therapy and psychiatry.
[2019-08-04 09:56] LABS: Potassium 3.1 mmol/L (3.5-5.1)
--- NOTE | 2019-08-04 10:01 | Hospitalist Progress Note ---
Date of Service August 04, 2019 Assessment & Plan (1) Intractable nausea and vomiting: (2) Cyclical vomiting: Cyclic vomitting syndrome HEME POSITIVE GASTRIC CONTENTS - likely 2/2 gastritis vs wesly-naseem tear from vomiting Present on admission with episodes of nausea an vomiting CT abd/pelvis showed circumferential wall thickening of the colon involving the ascending, transverse and descending segments may be secondary to partial distention versus a mild colitis. KUB showed nonobstructive bowel gas pattern. Has been getting symptomatic management Clinically better and diet advanced No more vomiting, but continues with nausea GI on board - recommend daily PPI, supportive care fo [facility], recommend OP colonoscopy EGD 2015 showed hiatal hernia; colonoscopy 2017 showed sigmoid diverticulosis Hypokalemia K 3.1 today give 40meq x 1 now and 20meq at Noon will discharge home on daily potassium supplements Hypertensive urgency HTN Seems to be related with Anxiety BP improved Continue Amlodipine 10 mg daily, HCTZ 25 mg Blood pressure is controlled Hyponatremia 2/2 to N/V and poor po intake Na 137 today Elevated WBC Possible related to colitis vs reactive she remains afebrile WBC now normal CAD (coronary artery disease) H/o stent in 2017 Continue aspirin, statin, lopressor with hold parameters Denies any chest pain Hypothyroidism Continue levothyroxine Mood disorder/Anxiety: Psych on board Pt to be on latuda per [facility] Continue Buspar, trazodone HS, Remeron restart Latuda recently started on hydroxyzine which is improving sx Due to history of abusing benzodiazepines and narcotic medications no benzo on discharge OK to continue Lorazepam 0.5 mg q12h prn while inpatient Continue monitor closely Will not provide any benzodiazepines on discharge Restless leg syndrome: Continue Mirapex DVT Ppx: On Lovenox subq Code status: FULL Disposition: Discharge today Supervising Physician Co-Signing Physician Notes Attending addendum The patient was seen and examined in the medical telemetry unit She denies any symptoms today except some weakness Complains of nausea but no vomiting as of this morning She will be going home this afternoon On examination No apparent distress at rest Hemodynamically stable Chest-clear to auscultate bilaterally Heart-S1-S2, regular Abdomen-soft, distended, nontender, bowel some present Extremities-trace edema bilateral 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 No focal neuro deficit Labs noted today. Potassium is low at 3.1 We will give supplemental potassium and will have regular dose of potassium at discharge Follow-up appointment with primary care doc within 7 days Agree with assessment plan as outlined above. Ritika Sotelo Subjective Patient was seen and examined in room 275-2. Follow-up cyclic vomiting syndrome. Patient overall feels much improved today. Continues to have nausea and generalized abdominal pain, but without vomiting. She had one BM yesterday described as diarrhea. She denies any fever, chills, sweats, lightheadedness, dizziness, chest pain, shortness of breath, emesis, dysuria, increased urge ncy/frequency with urination, melena, hematochezia. Nurse at bedside states patient tolerating p.o. intake much improved. She feels ready for discharge today. He was back to her baseline. Review of Systems Review of Systems: All systems reviewed & are unremarkable except as noted in HPI & below Physical Exam Physical Exam: Gen: WD/WN, anxious and slightly tearful, female, NAD, A&O x3 HEENT: Normocephalic, atraumatic, conjunctivae moist, sclerae anicteric, mucous membranes moist. Lung: Clear to Auscultation bilaterally, no wheezes/rales/rhonchi Heart: Regular rate, regular rhythm, normal S1/S2, no rubs, or gallops Abdomen: Soft, generalized abdominal tenderness, no rebound, guarding, rigidity, ND +BS x 4 Extremities: No edema Skin: Warm, no rash, negative turgor. Results & Data Vital Signs (Past 12 Hours) Vital Signs Temp Pulse Pulse Resp BP BP Pulse Ox 08/04/19 07:26 88 08/04/19 07:00 36.7 C 88 18 121/77 91 08/04/19 04:11 36.6 C 87 20 115/74 92 08/04/19 00:18 88 08/03/19 23:24 36.8 C 88 20 118/71 92 Laboratory Results Short CBC 08/04/19 Range/Units 09:17 WBC 9.12 (4.8-10.8) K/uL Hgb 12.5 (12.0-16.0) g/dL Hct 37.6 (37-47) % Plt Count 312 (130-400) K/uL Medications Administered Amlodipine Besylate (Norvasc) mg PO QAM [facility] Stop: 08/31/19 05:44 Last Admin: 08/04/19 08:46 Dose: 10 mg Documented by: [id number] Admin: 08/03/19 08:32 Dose: 10 mg Documented by: [id number] Admin: 08/02/19 08:19 Dose: 10 mg Documented by: [id number] Admin: 08/01/19 06:38 Dose: 10 mg Documented by: [id number] Atorvastatin Calcium ([facility]) [facility] Stop: 08/30/19 08:59 Last Admin: 08/04/19 08:46 Dose: 40 mg Documented by: [id number] Admin: 08/03/19 08:32 Dose: 40 mg Documented by: [id number] Admin: 08/02/19 08:18 Dose: 40 mg Documented by: [id number] Admin: 08/01/19 08:13 Dose: 40 mg Documented by: [id number] Admin: 07/31/19 08:49 Dose: 40 mg Documented by: [id number] Buspirone HCl (Buspar) 10 mg PO TID [facility] Stop: 08/29/19 20:59 Last Admin: 08/04/19 08:46 Dose: 10 mg Documented by: [id number] Admin: 08/03/19 20:41 Dose: 10 mg Documented by: [id number] Admin: 08/03/19 13:27 Dose: 10 mg Documented by: [id number] Admin: 08/03/19 08:32 Dose: 10 mg Documented by: [id number] Admin: 08/02/19 21:09 Dose: 10 mg Documented by: [id number] Admin: 08/02/19 13:39 Dose: 10 mg Documented by: [id number] Admin: 08/02/19 08:18 Dose: 10 mg Documented by: [id number] Admin: 08/01/19 20:00 Dose: 10 mg Documented by: [id number] Admin: 08/01/19 13:49 Dose: 10 mg Documented by: [id number] Admin: 08/01/19 08:13 Dose: 10 mg Documented by: [id number] Admin: 07/31/19 20:30 Dose: 10 mg Documented by: [id number] Admin: 07/31/19 14:22 Dose: 10 mg Documented by: [id number] Admin: 07/31/19 08:49 Dose: 10 mg Documented by: [id number] Admin: 07/30/19 21:46 Dose: Not Given Documented by: [id number] Carvedilol (Coreg) 6.25 mg PO BID COLT Stop: 08/31/19 05:44 Last Admin: 08/04/19 08:46 Dose: 6.25 mg Documented by: [id number] Admin: 08/03/19 20:41 Dose: 6.25 mg Documented by: [id number] Admin: 08/03/19 08:32 Dose: 6.25 mg Documented by: [id number] Admin: 08/02/19 21:14 Dose: 6.25 mg Documented by: [id number] Admin: 08/02/19 08:18 Dose: 6.25 mg Documented by: [id number] Admin: 08/01/19 20:00 Dose: 6.25 mg Documented by: [id number] Admin: 08/01/19 06:38 Dose: 6.25 mg Documented by: [id number] Fentanyl (Duragesic) 25 mcg TD Q72H COLT Stop: 08/13/19 17:59 Last Admin: 08/02/19 18:05 Dose: 25 mcg Documented by: [id number] Admin: 07/30/19 19:33 Dose: 25 mcg Documented by: [id number] Fentanyl (Duragesic) 12 mcg TD Q72H COLT Stop: 08/13/19 17:59 Last Admin: 08/02/19 18:05 Dose: 12 mcg Documented by: [id number] Admin: 07/30/19 19:33 Dose: 12 mcg Documented by: [id number] Heparin Sodium (Porcine) (Heparin Sod 100 Unit/Ml Flush) 5 ml FLUSH PRN PRN PRN Reason: Flush Stop: 08/30/19 00:29 Last Admin: 08/02/19 09:34 Dose: 5 ml Documented by: [id number] Admin: 08/02/19 07:30 Dose: 5 ml Documented by: [id number] Hydralazine HCl (Hydralazine Hcl) 10 mg IV Q6H PRN PRN Reason: SBP above 170 Stop: 08/30/19 19:15 Last Admin: 08/01/19 15:41 Dose: 10 mg Documented by: [id number] Hydrochlorothiazide (Hctz) 25 mg PO QAM [facility] Stop: 08/31/19 09:29 Last Admin: 08/04/19 08:46 Dose: 25 mg Documented by: [id number] Admin: 08/03/19 08:33 Dose: 25 mg Documented by: [id number] Admin: 08/02/19 08:18 Dose: 25 mg Documented by: [id number] Admin: 08/01/19 09:38 Dose: 25 mg Documented by: [id number] Hydroxyzine HCl (Vistaril) 25 mg PO Q4H PRN PRN Reason: Anxiety Stop: 09/01/19 12:09 Last Admin: 08/03/19 19:36 Dose: 25 mg Documented by: [id number] Admin: 08/02/19 19:40 Dose: 25 mg Documented by: [id number] Hydroxyzine HCl (Vistaril) 100 mg PO HS COLT Stop: 09/01/19 20:59 Last Admin: 08/03/19 20:40 Dose: 100 mg Documented by: [id number] Admin: 08/02/19 21:09 Dose: 100 mg Documented by: [id number] Promethazine HCl 12.5 mg/ (Sodium Chloride) 50.5 mls @ 202 mls/hr IV Q6H PRN PRN Reason: Nausea And Vomiting Stop: 08/29/19 16:51 Last Infusion: 08/02/19 00:54 Dose: 0 mls/hr Documented by: [id number] Admin: 08/02/19 00:39 Dose: 202 mls/hr Documented by: [id number] Infusion: 08/01/19 19:33 Dose: 0 mls/hr Documented by: [id number] Admin: 08/01/19 19:06 Dose: 202 mls/hr Documented by: [id number] Infusion: 08/01/19 05:28 Dose: 0 mls/hr Documented by: [id number] Admin: 08/01/19 05:08 Dose: 202 mls/hr Documented by: [id number] Infusion: 07/31/19 22:40 Dose: 0 mls/hr Documented by: [id number] Admin: 07/31/19 22:06 Dose: 202 mls/hr Documented by: [id number] Infusion: 07/31/19 03:52 Dose: 0 mls/hr Documented by: [id number] Admin: 07/31/19 03:30 Dose: 202 mls/hr Documented by: [id number] Infusion: 07/30/19 20:46 Dose: 0 mls/hr Documented by: [id number] Admin: 07/30/19 20:28 Dose: 202 mls/hr Documented by: [id number] Sodium Chloride (Nss 1000ml) 1,000 mls @ 70 mls/hr IV .[id number] COLT Stop: 09/01/19 12:44 Last Admin: 08/04/19 06:30 Dose: 70 mls/hr Documented by: [id number] Infusion: 08/04/19 06:30 Dose: 70 mls/hr Documented by: [id number] Admin: 08/03/19 17:05 Dose: 70 mls/hr Documented by: [id number] Infusion: 08/03/19 16:59 Dose: 70 mls/hr Documented by: [id number] Admin: 08/03/19 02:41 Dose: 70 mls/hr Documented by: [id number] Infusion: 08/03/19 02:41 Dose: 70 mls/hr Documented by: [id number] Admin: 08/02/19 13:39 Dose: 70 mls/hr Documented by: [id number] Insulin Aspart (Novolog Flexpen) 0 units SC ACHS COLT Stop: 08/29/19 20:59 Last Admin: 08/04/19 08:47 Dose: Not Given Documented by: [id number] Cosigned by: [id number] Admin: 08/03/19 20:47 Dose: Not Given Documented by: [id number] Cosigned by: [id number] Admin: 08/03/19 17:45 Dose: Not Given Documented by: [id number] Cosigned by: [id number] Admin: 08/03/19 13:05 Dose: Not Given Documented by: [id number] Cosigned by: [id number] Admin: 08/03/19 08:34 Dose: Not Given Documented by: [id number] Cosigned by: [id number] Admin: 08/02/19 21:11 Dose: Not Given Documented by: [id number] Cosigned by: [id number] Admin: 08/02/19 17:41 Dose: Not Given Documented by: [id number] Cosigned by: [id number] Admin: 08/02/19 12:17 Dose: Not Given Documented by: [id number] Cosigned by: [id number] Admin: 08/02/19 08:17 Dose: Not Given Documented by: [id number] Cosigned by: [id number] Admin: 08/01/19 20:46 Dose: Not Given Documented by: [id number] Cosigned by: [id number] Admin: 08/01/19 17:02 Dose: Not Given Documented by: [id number] Cosigned by: [id number] Admin: 08/01/19 11:47 Dose: Not Given Documented by: [id number] Cosigned by: [id number] Admin: 08/01/19 07:28 Dose: Not Given Documented by: [id number] Cosigned by: [id number] Admin: 07/31/19 21:35 Dose: Not Given Documented by: [id number] Admin: 07/31/19 17:29 Dose: Not Given Documented by: [id number] Cosigned by: [id number] Admin: 07/31/19 12:29 Dose: Not Given Documented by: [id number] Cosigned by: [id number] Admin: 07/31/19 09:07 Dose: Not Given Documented by: [id number] Cosigned by: [id number] Admin: 07/30/19 21:49 Dose: Not Given Documented by: [id number] Cosigned by: [id number] Levothyroxine Sodium (Synthroid) 75 mcg PO DAILYBB COLT Stop: 08/30/19 06:29 Last Admin: 08/04/19 06:31 Dose: 75 mcg Documented by: [id number] Admin: 08/03/19 04:58 Dose: 75 mcg Documented by: [id number] Admin: 08/02/19 06:30 Dose: 75 mcg Documented by: [id number] Admin: 08/01/19 05:25 Dose: 75 mcg Documented by: [id number] Admin: 07/31/19 05:56 Dose: 75 mcg Documented by: [id number] Lorazepam (Ativan) 0.5 mg PO Q12H PRN PRN Reason: Anxiety Stop: 08/31/19 15:41 Last Admin: 08/04/19 06:30 Dose: 0.5 mg Documented by: [id number] Admin: 08/03/19 17:47 Dose: 0.5 mg Documented by: [id number] Admin: 08/03/19 04:57 Dose: 0.5 mg Documented by: [id number] Admin: 08/02/19 15:34 Dose: 0.5 mg Documented by: [id number] Admin: 08/02/19 04:19 Dose: 0.5 mg Documented by: [id number] Admin: 08/01/19 16:14 Dose: 0.5 mg Documented by: [id number] Magnesium Oxide (Mag-Ox) 400 mg PO BID COLT Stop: 08/29/19 20:59 Last Admin: 08/04/19 08:46 Dose: 400 mg Documented by: [id number] Admin: 08/03/19 20:42 Dose: 400 mg Documented by: [id number] Admin: 08/03/19 08:33 Dose: 400 mg Documented by: [id number] Admin: 08/02/19 21:08 Dose: 400 mg Documented by: [id number] Admin: 08/02/19 08:18 Dose: 400 mg Documented by: [id number] Admin: 08/01/19 20:01 Dose: 400 mg Documented by: [id number] Admin: 08/01/19 08:13 Dose: 400 mg Documented by: [id number] Admin: 07/31/19 20:31 Dose: 400 mg Documented by: [id number] Admin: 07/31/19 08:50 Dose: 400 mg Documented by: [id number] Admin: 07/30/19 21:46 Dose: Not Given Documented by: [id number] Mirtazapine (Remeron) 7.5 mg PO HS COLT Stop: 08/29/19 20:59 Last Admin: 08/03/19 20:42 Dose: 7.5 mg Documented by: [id number] Admin: 08/02/19 21:09 Dose: 7.5 mg Documented by: [id number] Admin: 08/01/19 20:02 Dose: 7.5 mg Documented by: [id number] Admin: 07/31/19 20:32 Dose: 7.5 mg Documented by: [id number] Admin: 07/30/19 21:49 Dose: Not Given Documented by: [id number] Miscellaneous (Fentanyl Patch Check Placement) 1 ea N/A QS COLT Stop: 08/30/19 00:00 Last Admin: 08/04/19 09:29 Dose: 1 ea Documented by: [id number] Admin: 08/04/19 00:14 Dose: 1 ea Documented by: [id number] Admin: 08/03/19 16:21 Dose: 1 ea Documented by: [id number] Admin: 08/03/19 08:34 Dose: 1 ea Documented by: [id number] Admin: 08/02/19 23:48 Dose: 1 ea Documented by: [id number] Admin: 08/02/19 16:53 Dose: 1 ea Documented by: [id number] Admin: 08/02/19 08:18 Dose: 1 ea Documented by: [id number] Admin: 08/02/19 00:05 Dose: 1 ea Documented by: [id number] Admin: 08/01/19 15:43 Dose: 1 ea Documented by: [id number] Admin: 08/01/19 07:38 Dose: 1 ea Documented by: [id number] Admin: 07/31/19 23:23 Dose: 1 ea Documented by: [id number] Admin: 07/31/19 15:30 Dose: 1 ea Documented by: [id number] Admin: 07/31/19 08:49 Dose: 1 ea Documented by: [id number] Admin: 07/30/19 23:43 Dose: 1 ea Documented by: [id number] Miscellaneous (Fentanyl Patch Remove & Waste) 1 ea N/A Q3D COLT Stop: 09/01/19 17:59 Last Admin: 08/02/19 18:05 Dose: 1 ea Documented by: [id number] Cosigned by: [id number] Miscellaneous (Order Awaiting Action) 1 ea N/A QS COLT Stop: 08/30/19 00:00 Last Admin: 08/04/19 09:28 Dose: Not Given Documented by: [id number] Admin: 08/04/19 00:15 Dose: Not Given Documented by: [id number] Admin: 08/03/19 16:11 Dose: Not Given Documented by: [id number] Admin: 08/03/19 08:33 Dose: Not Given Documented by: [id number] Admin: 08/02/19 23:48 Dose: Not Given Documented by: [id number] Admin: 08/02/19 16:53 Dose: Not Given Documented by: [id number] Admin: 08/02/19 06:56 Dose: Not Given Documented by: [id number] Admin: 08/02/19 00:01 Dose: Not Given Documented by: [id number] Admin: 08/01/19 15:45 Dose: Not Given Documented by: [id number] Admin: 08/01/19 09:04 Dose: Not Given Documented by: [id number] Admin: 07/31/19 23:23 Dose: Not Given Documented by: [id number] Admin: 07/31/19 15:31 Dose: Not Given Documented by: [id number] Admin: 07/31/19 08:49 Dose: Not Given Documented by: [id number] Admin: 07/30/19 23:44 Dose: Not Given Documented by: [id number] Miscellaneous (Fentanyl Patch Remove & Waste) 1 ea N/A Q3D COLT Stop: 09/01/19 17:59 Last Admin: 08/02/19 18:05 Dose: 1 ea Documented by: [id number] Cosigned by: [id number] Multivitamins/Minerals (Caltrate Plus) 1 tab PO BID COLT Stop: 08/29/19 20:59 Last Admin: 08/04/19 08:46 Dose: 1 tab Documented by: [id number] Admin: 08/03/19 20:41 Dose: 1 tab Documented by: [id number] Admin: 08/03/19 08:33 Dose: 1 tab Documented by: [id number] Admin: 08/02/19 21:08 Dose: 1 tab Documented by: [id number] Admin: 08/02/19 08:18 Dose: 1 tab Documented by: [id number] Admin: 08/01/19 20:00 Dose: 1 tab Documented by: [id number] Admin: 08/01/19 08:13 Dose: 1 tab Documented by: [id number] Admin: 07/31/19 20:30 Dose: 1 tab Documented by: [id number] Admin: 07/31/19 08:49 Dose: 1 tab Documented by: [id number] Admin: 07/30/19 21:46 Dose: Not Given Documented by: [id number] Multivitamins/Minerals (Multivitamin W/ Minerals Tab) 1 tab PO QAM COLT Stop: 08/30/19 08:59 Last Admin: 08/04/19 08:46 Dose: 1 tab Documented by: [id number] Admin: 08/03/19 08:32 Dose: 1 tab Documented by: [id number] Admin: 08/02/19 08:18 Dose: 1 tab Documented by: [id number] Admin: 08/01/19 08:13 Dose: 1 tab Documented by: [id number] Admin: 07/31/19 08:50 Dose: 1 tab Documented by: [id number] Ondansetron HCl (Zofran) 4 mg IV Q6H PRN PRN Reason: Nausea Stop: 08/29/19 16:51 Last Admin: 08/04/19 01:47 Dose: 4 mg Documented by: [id number] Admin: 08/03/19 15:03 Dose: 4 mg Documented by: [id number] Admin: 08/03/19 08:52 Dose: 4 mg Documented by: [id number] Admin: 08/02/19 08:19 Dose: 4 mg Documented by: [id number] Admin: 08/01/19 14:41 Dose: 4 mg Documented by: [id number] Admin: 08/01/19 08:41 Dose: 4 mg Documented by: [id number] Admin: 08/01/19 01:07 Dose: 4 mg Documented by: [id number] Admin: 07/31/19 17:30 Dose: 4 mg Documented by: [id number] Admin: 07/31/19 09:40 Dose: 4 mg Documented by: [id number] Admin: 07/31/19 01:25 Dose: 4 mg Documented by: [id number] Admin: 07/30/19 18:30 Dose: 4 mg Documented by: [id number] Pantoprazole Sodium (Protonix) 40 mg PO BID COLT Stop: 09/02/19 20:59 Last Admin: 08/04/19 08:46 Dose: 40 mg Documented by: [id number] Admin: 08/03/19 20:40 Dose: 40 mg Documented by: [id number] Pramipexole Dihydrochloride (Mirapex) 0.125 mg PO HS COLT Stop: 08/29/19 20:59 Last Admin: 08/03/19 20:42 Dose: 0.125 mg Documented by: [id number] Admin: 08/02/19 21:09 Dose: 0.125 mg Documented by: [id number] Admin: 08/01/19 20:01 Dose: 0.125 mg Documented by: [id number] Admin: 07/31/19 20:31 Dose: 0.125 mg Documented by: [id number] Admin: 07/30/19 21:46 Dose: Not Given Documented by: [id number] Tramadol HCl (Ultram) 50 mg PO Q8 PRN PRN Reason: severe pain Stop: 08/29/19 16:51 Last Admin: 08/03/19 17:05 Dose: 50 mg Documented by: [id number] Admin: 08/03/19 08:51 Dose: 50 mg Documented by: [id number] Admin: 08/02/19 15:34 Dose: 50 mg Documented by: [id number] Admin: 08/01/19 13:49 Dose: 50 mg Documented by: [id number] Admin: 07/31/19 18:59 Dose: 50 mg Documented by: [id number] Admin: 07/31/19 11:34 Dose: 50 mg Documented by: [id number] Admin: 07/30/19 23:56 Dose: 50 mg Documented by: [id number] Trazodone HCl (Desyrel) 200 mg PO HS [facility] Stop: 08/29/19 20:59 Last Admin: 08/03/19 20:42 Dose: 200 mg Documented by: [id number] Admin: 08/02/19 21:08 Dose: 200 mg Documented by: [id number] Admin: 08/01/19 20:01 Dose: 200 mg Documented by: [id number] Admin: 07/31/19 20:31 Dose: 200 mg Documented by: [id number] Admin: 07/30/19 21:46 Dose: Not Given Documented by: [id number] Discontinued Medications [facility] Stop: 08/29/19 16:51 Last Admin: 07/30/19 18:09 Dose: 5 mg Documented by: [id number] Amlodipine Besylate (Norvasc) 5 mg PO [facility] Stop: 08/30/19 00:44 Last Admin: 07/31/19 01:24 Dose: 5 mg Documented by: [id number] Amlodipine Besylate (Norvasc) 5 mg PO NOW ONE Stop: 07/31/19 04:22 Last Admin: 07/31/19 05:56 Dose: 5 mg Documented by: [id number] Carvedilol (Coreg) 3.125 mg PO BID [facility] Stop: 08/30/19 06:29 Last Admin: 07/31/19 20:30 Dose: 3.125 mg Documented by: [id number] Admin: 07/31/19 08:47 Dose: 3.125 mg Documented by: [id number] Carvedilol (Coreg) 3.125 mg PO NOW ONE Stop: 07/31/19 21:05 Last Admin: 07/31/19 21:44 Dose: 3.125 mg Documented by: [id number] Hydralazine HCl (Hydralazine Hcl) 5 mg IV NOW ONE Stop: 07/30/19 22:46 Last Admin: 07/30/19 23:37 Dose: 5 mg Documented by: [id number] Hydralazine HCl (Hydralazine Hcl) 10 mg IV Q6H PRN PRN Reason: sbp Stop: 08/30/19 19:15 Last Admin: 08/01/19 07:30 Dose: 10 mg Documented by: [id number] Hydromorphone HCl (Dilaudid) 0.25 mg IV NOW STA Stop: 07/30/19 18:12 Last Admin: 07/30/19 18:28 Dose: 0.25 mg Documented by: [id number] Hydroxyzine HCl (Vistaril) 75 mg PO HS COLT Stop: 08/29/19 20:59 Last Admin: 08/01/19 20:02 Dose: 75 mg Documented by: [id number] Admin: 07/31/19 20:33 Dose: 75 mg Documented by: [id number] Admin: 07/30/19 21:49 Dose: Not Given Documented by: [id number] Promethazine HCl 25 mg/ Sodium (Chloride) 51 mls @ 204 mls/hr IV NOW STA Stop: 07/30/19 12:53 Last Infusion: 07/30/19 13:56 Dose: 0 mls/hr Documented by: [id number] Admin: 07/30/19 13:09 Dose: 204 mls/hr Documented by: [id number] Sodium Chloride (Nss 1000ml) 2,000 mls @ 999 mls/hr IV .Q2H1M ONE Stop: 07/30/19 14:39 Last Infusion: 07/30/19 16:33 Dose: 0 mls/hr Documented by: [id number] Admin: 07/30/19 13:10 Dose: 999 mls/hr Documented by: [id number] Potassium Chloride (K Sai / Wtr) 10 meq in 100 mls @ 100 mls/hr IV Q1H COLT Stop: 07/30/19 16:59 Last Infusion: 07/30/19 18:18 Dose: 0 mls/hr Documented by: [id number] Admin: 07/30/19 17:09 Dose: 100 mls/hr Documented by: [id number] Infusion: 07/30/19 16:33 Dose: 0 mls/hr Documented by: [id number] Admin: 07/30/19 15:01 Dose: 100 mls/hr Documented by: [id number] Pantoprazole Sodium 80 mg/ (Dextrose) 120 mls @ 480 mls/hr IV TODAY@1600 COLT Stop: 07/30/19 16:14 Last Infusion: 07/30/19 17:09 Dose: 0 mls/hr Documented by: [id number] Admin: 07/30/19 16:33 Dose: 480 mls/hr Documented by: [id number] Pantoprazole Sodium 40 mg/ (Dextrose) 100 mls @ 20 mls/hr IV Q5H COLT Stop: 08/29/19 16:29 Last Infusion: 08/01/19 11:18 Dose: 0 mls/hr Documented by: [id number] Infusion: 08/01/19 11:17 Dose: 0 mls/hr Documented by: [id number] Admin: 08/01/19 06:39 Dose: 20 mls/hr Documented by: [id number] Infusion: 08/01/19 06:27 Dose: 20 mls/hr Documented by: [id number] Infusion: 08/01/19 05:27 Dose: 20 mls/hr Documented by: [id number] Infusion: 08/01/19 05:05 Dose: 0 mls/hr Documented by: [id number] Admin: 08/01/19 01:05 Dose: 20 mls/hr Documented by: [id number] Infusion: 08/01/19 01:05 Dose: 20 mls/hr Documented by: [id number] Admin: 07/31/19 20:23 Dose: 20 mls/hr Documented by: [id number] Infusion: 07/31/19 20:23 Dose: 20 mls/hr Documented by: [id number] Admin: 07/31/19 15:24 Dose: 20 mls/hr Documented by: [id number] Infusion: 07/31/19 15:24 Dose: 20 mls/hr Documented by: [id number] Admin: 07/31/19 10:56 Dose: 20 mls/hr Documented by: [id number] Infusion: 07/31/19 08:50 Dose: 0 mls/hr Documented by: [id number] Admin: 07/31/19 03:13 Dose: 20 mls/hr Documented by: [id number] Infusion: 07/31/19 03:13 Dose: 20 mls/hr Documented by: [id number] Admin: 07/30/19 22:36 Dose: 20 mls/hr Documented by: [id number] Infusion: 07/30/19 21:54 Dose: 20 mls/hr Documented by: [id number] Admin: 07/30/19 16:54 Dose: 20 mls/hr Documented by: [id number] Sodium Chloride (Nss 1000ml) 1,000 mls @ 100 mls/hr IV .Q10H COLT Stop: 08/29/19 17:59 Last Infusion: 07/30/19 20:47 Dose: 0 mls/hr Documented by: [id number] Admin: 07/30/19 18:05 Dose: 100 mls/hr Documented by: [id number] Acetaminophen (Ofirmev) 65 mls @ 200 mls/hr IV NOW ONE Stop: 07/30/19 21:19 Last Infusion: 07/30/19 22:56 Dose: 0 mls/hr Documented by: [id number] Admin: 07/30/19 22:35 Dose: 200 mls/hr Documented by: [id number] Lactated Ringer's (Lr) 1,000 mls @ 50 mls/hr IV .Q20H ONE Stop: 07/31/19 16:39 Last Admin: 07/31/19 11:18 Dose: Not Given Documented by: [id number] Metronidazole (Flagyl) 500 mg in 100 mls @ 100 mls/hr IV NOW STA Stop: 07/30/19 21:58 Last Infusion: 07/30/19 23:44 Dose: 0 mls/hr Documented by: [id number] Admin: 07/30/19 21:38 Dose: 100 mls/hr Documented by: [id number] Potassium Chloride 40 meq/ (Sodium Chloride) 1,020 mls @ 50 mls/hr IV .[id number] STA Stop: 07/31/19 17:24 Last Infusion: 07/31/19 17:32 Dose: 0 mls/hr Documented by: [id number] Admin: 07/30/19 21:43 Dose: 50 mls/hr Documented by: [id number] Magnesium Sulfate/Dextrose (Magnesium Sulfate / D5w) 1 gm in 100 mls @ 100 mls/hr IV ONE ONE Stop: 07/30/19 22:29 Last Infusion: 07/30/19 23:57 Dose: 0 mls/hr Documented by: [id number] Admin: 07/30/19 22:57 Dose: 100 mls/hr Documented by: [id number] Lorazepam (Ativan) 0.25 mg in 0.5 mls @ 0.5 mls/min IV NOW ONE Stop: 07/30/19 21:46 Last Admin: 07/30/19 22:47 Dose: 0.5 mls/min Documented by: [id number] Lorazepam (Ativan) 0.5 mg in 1 mls @ 1 mls/min IV NOW STA Stop: 07/31/19 00:42 Last Admin: 07/31/19 01:24 Dose: 1 mls/min Documented by: [id number] Pantoprazole Sodium 40 mg/ (Syringe) 10 mls @ 5 mls/min IV BID@0900,2100 COLT Stop: 08/31/19 08:59 Last Admin: 08/03/19 08:37 Dose: 5 mls/min Documented by: [id number] Admin: 08/02/19 21:07 Dose: 5 mls/min Documented by: [id number] Admin: 08/02/19 08:19 Dose: 5 mls/min Documented by: [id number] Admin: 08/01/19 20:01 Dose: 5 mls/min Documented by: [id number] Admin: 08/01/19 11:47 Dose: 5 mls/min Documented by: [id number] Potassium Chloride (K Sai / Wtr) 10 meq in 100 mls @ 100 mls/hr IV Q1H COLT Stop: 08/03/19 13:59 Last Infusion: 08/03/19 14:28 Dose: 0 mls/hr Documented by: [id number] Admin: 08/03/19 13:27 Dose: 100 mls/hr Documented by: [id number] Infusion: 08/03/19 13:26 Dose: 0 mls/hr Documented by: [id number] Admin: 08/03/19 12:27 Dose: 100 mls/hr Documented by: [id number] Infusion: 08/03/19 12:26 Dose: 100 mls/hr Documented by: [id number] Admin: 08/03/19 11:26 Dose: 100 mls/hr Documented by: [id number] Ioversol (Optiray 320 100ml) 93 ml IV ONCE PRN PRN Reason: Interaction Checking Stop: 08/03/19 22:24 Last Admin: 07/30/19 22:27 Dose: 93 ml Documented by: [id number] Ketorolac Tromethamine (Toradol) 10 mg IV NOW ONE Stop: 07/30/19 12:40 Last Admin: 07/30/19 13:10 Dose: 10 mg Documented by: [id number] Labetalol HCl (Normodyne) 10 mg IV NOW STA Stop: 07/30/19 15:03 Last Admin: 07/30/19 15:08 Dose: 10 mg Documented by: [id number] Cosigned by: [id number] Labetalol HCl (Normodyne) 10 mg IV NOW STA Stop: 07/31/19 03:22 Last Admin: 07/31/19 03:35 Dose: 10 mg Documented by: [id number] Cosigned by: [id number] Labetalol HCl (Normodyne) 5 mg IV NOW ONE Stop: 07/31/19 19:16 Last Admin: 07/31/19 19:39 Dose: 5 mg Documented by: [id number] Cosigned by: [id number] Labetalol HCl (Normodyne) 5 mg IV ONE ONE Stop: 08/01/19 19:01 Last Admin: 08/01/19 18:59 Dose: 5 mg Documented by: [id number] Cosigned by: [id number] Metoclopramide HCl (Reglan) 10 mg IV NOW STA Stop: 07/30/19 14:33 Last Admin: 07/30/19 14:39 Dose: 10 mg Documented by: [id number] Metoprolol Tartrate (Lopressor) 25 mg PO BID COLT Stop: 08/30/19 06:24 Last Admin: 07/31/19 11:17 Dose: Not Given Documented by: [id number] Ondansetron HCl (Zofran) 4 mg IV NOW STA Stop: 07/30/19 12:40 Last Admin: 07/30/19 13:10 Dose: 4 mg Documented by: [id number] Ondansetron HCl (Zofran) 4 mg IV NOW STA Stop: 07/30/19 14:33 Last Admin: 07/30/19 14:39 Dose: 4 mg Documented by: [id number] Potassium Chloride (Klor-Con M20) 40 meq PO NOW STA Stop: 07/31/19 07:48 Last Admin: 07/31/19 08:47 Dose: 40 meq Documented by: [id number] Potassium Chloride (Klor-Con M20) 30 meq PO NOW STA Stop: 08/01/19 08:43 Last Admin: 08/01/19 11:07 Dose: Not Given Documented by: [id number] Potassium Chloride (Klor-Con M20) 20 meq PO NOW STA Stop: 08/03/19 10:26 Last Admin: 08/03/19 11:25 Dose: 20 meq Documented by: [id number] Promethazine HCl (Phenergan) Confirm Administered Dose 25 mg IV .STK-MED ONE Stop: 07/30/19 12:45 Last Admin: 07/30/19 13:10 Dose: Not Given Documented by: [id number]
[2019-08-04 10:08] LABS: BUN Creatinine Ratio 19.5 (10-20); Creatinine Clr Calc Pharmacy 57.1 ml/min; Est GFR (African American) 70.7; Magnesium 1.8 mg/dl (1.8-2.4)
[2019-08-04] MEDS ORDERED: POTASSIUM CHLORIDE 20 MEQ TABCR PO ONE ×2 (10:30→12:00)
--- NOTE | 2019-08-04 11:25 | Discharge Summary ---
Date of Service August 04, 2019 Admission HPI Per Admitting Provider Ester Lua is a 69-year-old female admitted medically on 07/30/19 after presenting to the ED with nausea and vomiting. Pt has a history of cyclical vomiting syndrome, and has required inpatient hospitalizations for this in the past. PMH includes hypothyroidism, osteoarthritis, HLD, scoliosis, cervical spondylolysis, CAD, HTN, history of PR, RLS, migraines, anxiety, depression, and PTSD. Psychiatric consultation was requested to evaluate patient for severe anxiety. Patient's case was reviewed with psychiatric nurse liaison and psychiatrist. Hospital documentation reviewed prior to evaluation. Pt was cooperative with psychiatric evaluation. She admits to this provider, "I don't feel very good at all." She states she has been experiencing vomiting for the past "several days." Her medical issues have reportedly been contributing to exacerbation of anxiety and worsening depression. Pt states she has experienced symptoms of depression and anxiety for "over a year." She admits that these episodes have correlated with worsening health. Pt states that she had been getting poor sleep for the past "couple years." In the last 3 nights, the patient claims she has only gotten 2 hours of sleep. She admits this is in- part due to her frequent vomiting. Pt reports poor appetite, low energy, decreased motivation/productivity, difficulty attending to ADLs, feeling "scattered" and feelings of hopelessness. Pt reports thoughts of feeling life is not worth living in this amount of pain, but denies plan or intent to harm herself. She does admit that she would be concerned about returning home in her current condition due to the presence of these thoughts. Pt denies previous inpatient psychiatric treatment, but admits to having had at least two intentional overdoses. The last overdose was over 15 years ago. Pt admits to increased anxiety and occasional panic attacks - reporting the most recent was yesterday while in the hospital. Pt admits that being hospitalized is greatly contributing to her anxiety. Pt verbalized agreement with signing and [facility] so that outpatient records could be obtained from her outpatient psychiatric prescriber at [facility]. Pt denies HI, SIB, A/V hallucinations, paranoia, significant criteria for raegan/hypomania, OCD, PTSD, eating disorder, and other specific psychiatric symptoms. Admission Exam Per Admitting Provider Constitutional: WD/WN, vitals as above + ill appearing; no acute distress Eyes: PERRL, conjunctivae normal, anicteric sclerae ENMT: externl ear and nose normal, oropharynx normal Respirtory: normal respiratory effort, lungs clear to auscultation Cardiovascular: Rate/Rhythm: regular rate and regular rhythm Vessels: normal peripheral pulses Extremities: no edema Gastrointestinal (Abdomen): Inspection/Auscultation: normal bowel sounds; abdomen not distended Percussion/Palpation: + abdomen tender (Diffusely) and abdomen soft; no hepatosplenomegaly Musculoskeletal: no cyanosis or clubbing, extremities motor strength 5/5 Skin: no rashes, warm and dry Neurologic: PERRL, EOMI, accommodation nl, no face palsy, no dysarthria Psychiatric: A+Ox3, euthymic affect Principal Diagnosis Cyclic vomiting syndrome Electrolyte abnormality with hyponatremia and hypokalemia Nonspecific colitis Hypertension with hypertensive urgency Anxiety Discharge Exam Gen: WD/WN, anxious and slightly tearful, female, NAD, A&O x3 HEENT: Normocephalic, atraumatic, conjunctivae moist, sclerae anicteric, mucous membranes moist. Lung: Clear to Auscultation bilaterally, no wheezes/rales/rhonchi Heart: Regular rate, regular rhythm, normal S1/S2, no rubs, or gallops Abdomen: Soft, generalized abdominal tenderness, no rebound, guarding, rigidity, ND +BS x 4 Extremities: No edema Skin: Warm, no rash, negative turgor. Discharge Data Allergies Allergy/AdvReac Type Severity Reaction Status Date / Time latex Allergy Intermediate Rash Verified 07/30/19 13:57 nickel Allergy Intermediate SEVERE Verified 07/30/19 13:57 DERMATITIS NSAIDS (Non-Steroidal Allergy Intermediate HX OF Verified 07/30/19 13:57 Anti-Inflamma BLEEDING ULCERS-TO AVOID aspirin AdvReac Intermediate bleeding Verified 07/30/19 13:57 ulcers Consultations Consultation GI: (1) Diarrhea: 69 year old female with history of CVS admitted w/ nausea, vomiting and diarrhea. She has mild leykocytosis w/ stable H&H, plt count. Her LFTs and lipase are non-elevated and her BUN is normal. CT w/ ?colitis which has been on prior CTs as well but she does note recent issues with watery, frequent stools. There was concern for heme + gastric specimen, she did have an episode of emesis this AM which was clear w/o any coffee ground appearance or hematemesis Submit stool studies OP colonoscopy NPO for bowel rest but can trial clears when ready IV PPI BID while admitted then PO once daily at discharge Would continue anti-emetics (zofran, phenergan) as ordered for now If symptoms persist, can discuss emend Thank you for allowing us to participate in the care of this patient. Please call with any acute changes, questions or concerns. Please see addendum below with additional recommendation from my supervising physician. Present on Admission?: Yes (2) Intractable nausea and vomiting: Present on Admission?: Yes Consultation Psych: Impression 69-year-old female admitted medically on 07/30/2019 due to intractable nausea and vomiting. Patient has a history of cyclical vomiting syndrome, and has required inpatient hospitalizations for this in the past. Psychiatric consultation was requested to evaluate patient for severe anxiety. Patient psychiatric medications are managed through [facility], and she was agreeable with signing a release of information for these records to be obtained. She reports her greatest concerns at this time are anxiety and difficulty sleeping. Reviewed with patient her current medication regimen and appropriate medication changes to target these concerns. Patient questioned if lorazepam could be provided more frequently to manage her anxiety. Reviewed with patient that lorazepam, although helpful as a acute rescue medication, is not recommended for continued use at this time. It was explained that she is on several medications that target anxiety that could be optimized. Concerns about interactions between rather strong pain medications and benzodiazepines were also explained to the patient, risks of this include sedation, confusion, respiratory depression, and other significant concerns. Patient also has a reported history of abusing benzodiazepines and narcotic medications, as it was reported she was found unresponsive in 2012 due to this activity. Agree with current dosing schedule of lorazepam on an inpatient basis; however, would recommend the medication not be continued on discharge. Discussed with patient the recommendation to add PRN hydroxyzine 25 mg every 4 hours to manage acute anxiety. We will also increase her at bedtime dose to 100 mg to assist with difficulty sleeping. We will begin with these medication recommendations, and review outpatient records when available for further considerations. Goal will be to manage patient's anxiety to a suitable degree, but also somewhat hesitant to make major medication adjustments that could worsen nausea and vomiting and this acute phase. Of note, patient filled a prescription for 20 mg of lurasidone on 07/11/19 and this medication was not listed on patient's home medication regimen. We will confirm with [facility] records that this medication has not been discontinued, and add to medication regimen if it remains active. Additional future considerations include: Could consider discontinuation of mirtazapine, as 7.5mg is a rather low dose, and not likely providing significant benefit in regard to targeting mood/anxiety or improving sleep. Hydroxyzine can be titrated beyond 100mg if needed to continue to treatment insomnia. Trazodone could also be titrated beyond 200mg if it has historically been helpful for sleep, would likely also provide additional benefits for mood and anxiety. It is possible to optimize the most effective medications in order to reduce polypharmacy. Would advice against prescribing any habit-forming or abusable sleep aids. Will await outpatient records before making any other changes; as it seems her history is somewhat complicated and more information would be beneficial. Dr. Lina Alvarenga was directly involved in review and discussion of the patient's case and participated in medical decision making regarding treatment recommendations. (1) Anxiety: 08/02/19 - Added hydroxyzine 25mg q4h prn, which should be used as primary medication to manage acute anxiety - Increased hydroxyzine to 100mg qHS to improve sleep - Would not advise increasing lorazepam frequency beyond the currently scheduled time - would advise against prescribing lorazepam on discharge - Continue mirtazapine, trazodone, and buspirone as scheduled - will request records from [facility] for additional information on patient's medication history - Will make additional recommendations based on response and length of stay - as it may be possible to reduce HS polypharmacy by consolidating medications - Pt is established with both therapy and medication management at [facility]; recommend follow-up as scheduled - At this time, patient does not meet criteria for inpatient psychiatric treatment - please update our service about any changes in perceived safety Ordered Studies CT Abd/Pelvis: IMPRESSION: 1. No bowel obstruction. 2. Circumferential wall thickening of the colon involving the ascending, transverse and descending segments may be secondary to partial distention versus a mild colitis. Correlate clinically. 3. Nonobstructing left nephrolithiasis. 4. Small hiatal hernia with mild wall thickening of the distal esophagus. 5. Colonic diverticulosis without acute diverticulitis. 6. Additional findings as above. CXR: IMPRESSION: 1. Cardiomegaly without overt pulmonary edema. 2. Bibasilar opacities suggest atelectasis with pneumonitis considered less likely. 3. Nonobstructive bowel gas pattern. 4. No pneumoperitoneum. Hospital Course (1) Intractable nausea and vomiting: (2) Cyclical vomiting: Cyclic vomitting syndrome HEME POSITIVE GASTRIC CONTENTS - likely 2/2 gastritis vs wesly-naseem tear from vomiting Present on admission with episodes of nausea an vomiting CT abd/pelvis showed circumferential wall thickening of the colon involving the ascending, transverse and descending segments may be secondary to partial distention versus a mild colitis. KUB showed nonobstructive bowel gas pattern. [place] to be a nonspecific colitis -improved with supportive care IV Fluids, antiemetics, bowel rest Did not require antibiotics Leukocytosis resolved - felt to be reactive Clinically better and diet advanced No more vomiting, but continues with nausea GI on board - recommend daily PPI, supportive care fo CVS, recommend OP colonoscopy EGD 2015 showed hiatal hernia; colonoscopy 2017 showed sigmoid diverticulosis Hypokalemia K 3.1 day of discharge give 40meq x 1 now and 20meq at Noon will discharge home on daily potassium supplements Hypertensive urgency HTN Seems to be related with Anxiety BP improved Amlodipine increased to 10mg daily and Coreg 6.25mg was added twice daily continue HCTZ 25 mg Blood pressure is controlled Hyponatremia 2/2 to N/V and poor po intake Na 137 today Elevated WBC Possible related to colitis vs reactive she remains afebrile WBC now normal CAD (coronary artery disease) H/o stent in 2017 Continue aspirin, statin, BB Denies any chest pain Hypothyroidism Continue levothyroxine Mood disorder/Anxiety: Psych on board Pt to be on latuda per [facility] Continue Buspar, trazodone HS, Remeron restart Latuda recently started on hydroxyzine which is improving sx Due to history of abusing benzodiazepines and narcotic medications no benzo on discharge OK to continue Lorazepam 0.5 mg q12h prn while inpatient Continue monitor closely Will not provide any benzodiazepines on discharge Restless leg syndrome: Continue Mirapex Total Time Total Time Spent Total Time Spent (In Minutes): 75 minutes Total Time Includes: Examination of the Patient, Discharge Planning, Medication Reconciliation and Communication With Other Providers Discharge Plan Discharge Items Patient Disposition: Home - Self-Care Reason For Visit: INTRACTABLE N/V Discharge Diagnosis: Cyclic Vomiting Syndrome Electrolyte abnormality - low sodium, low potassium in setting of GI Loss High Blood Pressure Anxiety Condition on Discharge: Good Activity: Resume your previous activity Bathing: No limitations Exercise/Sports: Gradually increase as tolerated Driving/Machine Use: Resume 3 days after discharge Weightbearing: Full weightbearing Non-emergency contact: Primary Care Provider, Chief Of Planning and Psychiatrist Call non-emergency contact if: you have any medication questions, your pain is not controlled, your pain is worsening, your pain is unusual for you, your pain is concerning for you and your temperature is above 101 Follow-up/Referrals: [facility] [Outside] - 08/08/19 11:00 am (follow up appointment with Alba) Katelyn Blanco [Nurse Practitioner] - 08/09/19 12:15 pm Charanjit Spann MD [Primary Care Provider] - 08/10/19 9:45 am Diet: Heart Healthy Ambulatory Orders: Basic Metabolic Panel (Routine) Timeframe: 5 Days Location: Determined by Patient Ordered By: Ritika Pagan Attending Provider Instructions: MEDICATION CHANGES: Amlodipine has been increased to 10mg daily Your Hydroxyzine has been increased to 100mg at bed time You have been started on Hydroxyzine 25mg every 6hrs as needed for anxiety You have been started on Coreg 6.25mg twice daily for high blood pressure SUMMARY OF HOSPITAL STAY You were admitted to [facility] due to intractable nausea and vomiting likely secondary to your Cyclic vomiting syndrome You tested gastric contents (vomit) tested positive for blood, likely secondary to multiple episodes of vomiting Your symptoms improved with supportive care with IV fluids, anti-emetics and bowel rest You electrolytes were abnormal including sodium and potassium. These have since been replaced You were seen and evaluated by the GI team who recommends out patient colonoscopy - a follow up appt has been arranged You were seen and evaluated by inpatient psychiatry team who increased your hydroxyzine to 100mg at bed time and 25mg every 6hrs as needed Your symptoms have improved and you are being discharge home PENDING TEST RESULTS: None RECOMMENDATIONS FOR FOLLOW-UP: Please keep all scheduled follow up appointments as scheduled including PCP, GI and Psychiatry Take all other medications as previously prescribed You are scheduled to have basic metabolic panel (lab work) to monitor your potassium level with in 5 days of discharge Your blood pressure was very high during your stay in the hospital. Your amlodipine was increased to 10mg daily. You were also started on a new medication for blood pressure called Coreg twice daily. I advise you to check your blood pressure twice daily and keep a log of your blood pressure. Take this log with you to your follow up appointment with Dr. Spann. Goal blood pressure for you is < 140/90. OTHER INSTRUCTIONS: Seek medical attention if you have: * temperature above 101 * chest pain or trouble breathing * abdominal pain, nausea, vomiting * diarrhea, dark stools or bloody stools * any unanswered questions or concerns Call 911 if symptoms are severe. Please take good care of yourself. Call if you have any questions or problems. You can reach a [facility] hospitalist on duty at [facility] 24 hours a day by calling [phone]. My pager number # is [phone]. Pending Studies at Discharge: No Stand-Alone Forms: My [facility] Medications and DC Order Prescriptions: New hydroxyzine HCl 25 mg Tablet 25 mg PO Q6H PRN (Reason: anxiety) 14 Days Qty: 56 RF: 0 hydrochlorothiazide 25 mg Tablet 25 mg PO QAM 30 Days Qty: 30 RF: 0 hydroxyzine HCl 25 mg tablet 100 mg PO HS 30 Days Qty: 120 RF: 0 carvedilol 6.25 mg Tablet 6.25 mg PO BID 30 Days Qty: 60 RF: 0 amlodipine [Norvasc] 5 mg Tablet 10 mg PO QAM 30 Days Qty: 60 RF: 0 Continued nitroglycerin [Nitrostat] 0.3 mg Tablet, Sublingual 0.3 mg sublingual UD RF: 0 aspirin [Aspir-81] 81 mg Tablet,Delayed Release (Dr/Ec) 81 mg PO QAM RF: 0 magnesium oxide 400 mg (241.3 mg magnesium) Tablet 400 mg PO BID RF: 0 nystatin 100,000 unit/gram Powder 1 applic TOPICAL TID PRN (Reason: BREAKOUTS) RF: 0 Calcium 600 + D(3) 600 mg calcium- 200 unit Capsule 1 cap PO BID RF: 0 olopatadine 0.2 % Drops 1 drp OPHTHALMIC (EYE) QAM RF: 0 epinephrine 0.3 mg/0.3 mL Syringe 0.3 mg IM Q3H PRN (Reason: Allergic Reaction) RF: 0 Ocuvite Adult 50 Plus 250-5-1 mg Capsule 1 cap PO QAM RF: 0 pantoprazole 40 mg tablet,delayed release (DR/EC) 40 mg PO QAM RF: 0 mirtazapine 7.5 mg tablet 7.5 mg PO HS RF: 0 buspirone 10 mg PO DAILY PRN (Reason: Anxiety) RF: 0 Latuda 20 mg Tablet 20 mg PO HS RF: 0 atorvastatin [Lipitor] 40 mg Tablet 40 mg PO QAM RF: 0 levothyroxine 75 mcg Tablet 75 mcg PO QAM RF: 0 buspirone 10 mg Tablet 10 mg PO TID RF: 0 tizanidine [Zanaflex] 4 mg Capsule 4 mg PO BID PRN (Reason: Muscle Spasm) RF: 0 tramadol [Ultram] 50 mg Tablet 50 mg PO Q8 PRN (Reason: severe pain) RF: 0 pramipexole [Mirapex] 0.125 mg Tablet 0.125 mg PO HS RF: 0 potassium chloride [Klor-Con M20] 20 mEq tablet,ER particles/crystals 20 meq PO BID RF: 0 prochlorperazine maleate 5 mg tablet 10 mg PO BID PRN (Reason: Nausea) RF: 0 trazodone 100 mg tablet 200 mg PO HS RF: 0 polyethylene glycol 3350 17 gram Powder In Packet 17 g PO DAILY PRN (Reason: Constipation) RF: 0 ondansetron HCl [Zofran] 8 mg Tablet 8 mg PO Q6H PRN (Reason: Nausea) RF: 0 promethazine 25 mg Tablet 25 mg PO Q6H PRN (Reason: Nausea) RF: 0 fentanyl [Duragesic] 25 mcg/hr patch 72 hour 1 patch topical [id number] RF: 0 fentanyl [Duragesic] 12 mcg/hr patch 72 hour 1 patch topical [id number] RF: 0 Discontinued hydroxyzine HCl 50 mg Tablet 75 mg PO HS RF: 0 Discharge Orders: Discharge Order (Routine); Ordered 08/04/19 Ordered By: Ritika Tran Admission Data Admit Date/Time: 07/30/19 15:31 Attending Provider: Ramírez Sotelo Admit Provider: Ramírez Sotelo Primary Care Provider: Charanjit Spann Other Providers: Ramírez Sotelo ; Lisandro Lechuga ; Magdi Bowdne ; Carissa Trevino Supervising Physician Co-Signing Physician Notes Attending addendum: The patient was seen and examined before discharge today She has been feeling a lot better and except minimal weakness she denies any other significant symptoms Her nausea persists but no more vomiting Denies any other symptoms at this morning On examination Sitting at the edge of the bed without any symptoms Chest-decreased breath sounds bilaterally without any crackles Heart S1-S2 regular-, Abdomen-soft nontender, bowel sounds present Extremities-trace edema bilateral Discharge instructions and medications reviewed Agree with the plan as outlined above by BOB Shepherd DR
[2019-08-04] MEDS ORDERED: LURASIDONE HCL 40 MG TAB PO SCH (15:30)
== END 2019-08-04 12:13 | disposition home or self-care (01) | DRG 391 ==
LOC: ED 12:26 → 2N 15:31 → SUATTDRO 15:31 → 2N 16:28

== ENCOUNTER 2019-08-21 13:52 | Inpatient (IN) ==
[2019-08-21] MEDS ORDERED: SODIUM CHLORIDE 0.9% 1000ML 1,000 ML IV ONE (14:14)
[2019-08-21 15:09] LABS: Influenza A virus by PCR Neg for Influ A (Neg); Influenza B virus by PCR Neg for Influ B (Neg)
[2019-08-21 15:47] LABS: Basophils # (auto) 0.03 K/uL (0-0.2); Basophils % (auto) 0.4 %; Hematocrit (blood only) 35.3 % (37-47); Hemoglobin 11.7 g/dL (12.0-16.0); Immature Granulocytes # (auto) 0.01 K/uL (0.00-0.02); Immature Granulocytes % (auto) 0.1 %; Lymphocytes # (auto) 2.33 K/uL (1.2-3.4); Lymphocytes % (auto) 27.7 %; Mean Corpuscular Hgb Conc 33.1 g/dL (32-36); Mean Corpuscular Volume 84.4 fL (80-100); Mean Platelet Volume 8.9 fL (7.4-10.4); Monocytes # (auto) 0.79 K/uL (0.11-0.59); Monocytes % (auto) 9.4 %; Neutrophils # (auto) 4.74 K/uL (1.4-6.5); Neutrophils % (auto) 56.4 %; Platelet Count 300 K/uL (130-400); RDW Coefficient of Variation 14.4 % (11.5-14.5); RDW Standard Deviation 44.6 fL (36.4-46.3); Red Blood Count 4.18 M/uL (4.2-5.4)
[2019-08-21 16:04] LABS: Alanine Aminotransferase 18 U/L (12-78); Albumin Level 3.3 gm/dl (3.4-5.0); Aspartate Aminotransferase 14 U/L (15-37); Bilirubin Direct 0.2 mg/dl (0-0.2); Blood Urea Nitrogen 9 mg/dl (7-18); Calcium 9.1 mg/dl (8.5-10.1); Carbon Dioxide 30 mmol/L (21-32); Chloride 104 mmol/L (98-107); Est GFR (African American) 88.6; Est GFR (Non-African American) 76.5; Glucose 109 mg/dl (70-99); Lipase 34 U/L (73-393); Potassium 3.7 mmol/L (3.5-5.1); Sodium 140 mmol/L (136-145)
[2019-08-21 16:05] LABS: INR 1.1 (0.9-1.1); Partial Thromboplastin Ratio 0.9; Partial Thromboplastin Time 24.2 Seconds (21.0-31.0); Prothrombin Time 10.9 Seconds (9.0-12.0)
[2019-08-21 16:09] LABS: Alkaline Phosphatase 95 U/L (45-117); Bilirubin,Total 0.6 mg/dl (0.2-1); Total Protein 6.9 gm/dl (6.4-8.2); Troponin I < 0.015 ng/ml (0-0.045)
--- NOTE | 2019-08-21 17:07 | Ultrasound Report ---
ULTRASOUND RIGHT LOWER EXTREMITY VENOUS CLINICAL HISTORY: Right lower extremity edema and erythema. COMPARISON STUDY: Bilateral lower extremity venous ultrasound dated 03/27/2017. TECHNIQUE: Real-time, grayscale, and color Doppler sonography of the deep veins of the right lower ex tremity was performed from the inguinal crease to the calf. Compression and augmentation were utilize d. FINDINGS: There is no sonographic evidence of deep venous thrombosis identified in the right lower ex tremity. The common femoral, superficial femoral, and popliteal veins are patent and normally philippe sible. The greater saphenous vein and the profunda femoris vein at the junction with the common femor al vein are clear. The visualized calf veins are patent. Soft tissue edema is noted in the calf. IMPRESSION: There is no sonographic evidence of deep venous thrombosis identified in the right lower extremity. Electronically signed by: Ivan Smith M.D. 08/21/2019 5:05 PM
[2019-08-21 17:18] LABS: D Dimer 730 ug/L FEU (0-500)
[2019-08-21] MEDS ORDERED: OPTIRAY 320 125ml IV PRN (17:44)
--- NOTE | 2019-08-21 18:07 | CT Scan Report ---
CT ANGIOGRAM OF THE CHEST CLINICAL HISTORY: Dyspnea. COMPARISON STUDY: Chest x-ray dated 07/30/2019. Chest CT scans dated 07/03/2019 and 02/16/2015. TECHNIQUE: Following the IV administration of 81 cc of Optiray 320, CT angiogram of the chest was per formed from the upper abdomen to the thoracic inlet utilizing the pulmonary embolus protocol. Images are reviewed in the axial, sagittal, and coronal planes. 3-D MIPS images are created and assessed. IV contrast was administered without complication. A dose lowering technique was utilized adhering to the principles of ALARA. CT DOSE: 508.13 mGy.cm FINDINGS: Thyroid: Imaged portions of the thyroid gland are normal in size and attenuation. Thoracic aorta: The thoracic aorta is normal in caliber and demonstrates standard 3-vessel arch anato my. No dissection is seen. Pulmonary vasculature: The pulmonary trunk is dilated measuring 3.5 cm in diameter. This suggests pul monary artery hypertension. There are no filling defects identified in main, lobar, or segmental pulm onary branches to suggest pulmonary embolus. Heart: A left subclavian central venous infusion port is in place. The heart is enlarged and without pericardial effusion. The coronary arteries are densely calcified. Lungs and pleural spaces: Emphysematous change is noted. There is volume loss in the left lung with p ostoperative change and scarring/fibrosis at the left lung base. Scarring/atelectasis is also noted a t the right lung base. No airspace consolidation is seen typical for pneumonia. Mild intralobular sep jazlyn thickening is identified. There are scattered calcified granulomas. Mediastinum: Mildly enlarged paratracheal node on image #179 is unchanged and measures 11 mm in short axis. Gracia: Prominent right hilar nodes measure up to 13 mm in short axis. Axillae: There is no axillary lymphadenopathy. Upper abdomen: There is a small hiatal hernia. Partially visualized upper abdominal viscera is within normal limits. Skeletal structures: The skeletal structures are osteopenic. Degenerative change and scoliosis are no марина throughout the thoracic spine with extensive postlaminectomy change. Postoperative change is note d within several left-sided ribs. No lytic or blastic bony lesions are seen. IMPRESSION: 1. There is no evidence of pulmonary embolus in the main, lobar, or segmental pulmonary arteries. 2. Cardiomegaly and emphysema with evidence of pulmonary artery hypertension. 3. There is no airspace consolidation or pleural effusion. Chronic parenchymal changes are detailed a chiqui. 4. Mild intralobular septal thickening is noted in the upper lobes. This could represent a component of mild acute versus chronic congestion. Clinical correlation will be required. 5. Additional findings as above. Electronically signed by: Ivan Smith M.D. 08/21/2019 6:06 PM
[2019-08-21] MEDS ORDERED: ALBUT/IPRATROP 3MG/0.5MG NEB 3 ML VIAL NEB STA (18:39)
[2019-08-21] MEDS ORDERED: PIPERACILL/TAZOBAC CONSULT ACTIVE PRN (18:58)
[2019-08-21] MEDS ORDERED: PIPERACILLIN/TAZOBACTAM 3.375 GM in DEXTROSE 5% 100 ML IV SCH (19:00)
[2019-08-21] MEDS ORDERED: PRAMIPEXOLE DIHYDROCHLO 0.25 MG TAB PO PRN (19:01)
--- NOTE | 2019-08-21 19:20 | History & Physical Report ---
Date of Service August 21, 2019 Assessment & Plan (1) Cellulitis of right lower extremity: -right lower extremity cellulitis -right lower extremity erythema and swelling and pain x 3 days -send blood cultures -empirically start on Zosyn -acetaminophen prn (2) Hypoxia: -Patient denies supplementary oxygen use at home. She reports she is in the workup for sleep study a outpatient to investigate whether she has obstructive sleep apnea but does not have CPAP at home. -Patient denies smoking history or history of asthma -emergency room physician started patient on supplementary oxygen as oxygen saturation was 88% -continue supplementary oxygen for now and titrate down as needed to target above 92% -CTA in the ED on this admission did not show evidence of pulmonary embolism -no lung congestion on CT imaging -no sonographic evidence of deep venous thrombosis identified in the right lower extremity (3) Bilateral lower extremity edema: -continue home dose HCTZ 25 mg daily -IV Lasix 20 mg x 1 given in the ED -monitor leg swelling and renal function before resuming Lasix -no lung congestion on CT imaging -echocardiogram in 06/2019 with normal systolic function -send BNP -patient denies use of steroids recently -a possibility of the swelling may be from recent hospital discharge in July 2019 in which patient was started on amlodipine (4) Hypertension: -continue home dose HCTZ 25 mg daily -IV Lasix 20 mg x 1 given in the ED -monitor leg swelling and renal function before resuming Lasix -continue home dose amlodipine 10 mg daily -outpatient chart review of carvedilol 12.5 mg tablet as 1 tab by mouth BID; but last hospital discharge in July 2019 discharge as carvedilol 6.25 mg BID which will be the dosing being continued for now History of Cyclic vomiting syndrome -no current vomiting symptoms -anti-emetics prn CAD (coronary artery disease) -history of stent in 2017 -Continue aspirin, statin, carvedilol Hypothyroidism -Continue levothyroxine Mood disorder/Anxiety -mood currently is stable; on multiple medications: -mirtazapine 7.5 mg tablet HS -buspirone 10 mg TID -Latuda 20 mg Tablet HS -Trazadone 200 mg HS History of chronic back pain -secondary to history of back surgeries -on Fentanyl patches chronically -pain appears controlled at this time Restless leg syndrome -Continue Mirapex DVT prophylaxis: Lovenox 40 mg daily Full Code son Hanna in [place] [phone] History of Present Illness This is a 69 year old Female who presented to the emergency after being sent by primary care doctor because right lower extremity erythema and swelling and pain x 3 days. patient also reported shortness of breath. With these symptoms, the primary care doctor sent patient to emergency room to rule out pulmonary embolism or DVT. CTA in the ED on this admission did not show evidence of pulmonary embolism. no lung congestion on CT imaging. no sonographic evidence of deep venous thrombosis identified in the right lower extremity. However, emergency room physician started patient on supplementary oxygen as oxygen saturation was 88%. Patient denies supplementary oxygen use at home. She reports she is in the workup for sleep study a outpatient to investigate whether she has obstructive sleep apnea but does not have CPAP at home. -Patient denies smoking history or history of asthma. she reports that the bilateral swelling of her legs are new for her. Patient denies symptoms of fever. no chest pain. no palpitations. no abdomen pain. Primary Care Provider: Charanjit Spann MD Allergies Allergy/AdvReac Type Severity Reaction Status Date / Time latex Allergy Intermediate Rash Verified 08/21/19 14:45 nickel Allergy Intermediate SEVERE Verified 08/21/19 14:45 DERMATITIS NSAIDS (Non-Steroidal Allergy Intermediate HX OF Verified 08/21/19 14:45 Anti-Inflamma BLEEDING ULCERS-TO AVOID aspirin AdvReac Intermediate bleeding Verified 08/21/19 14:45 ulcers Home Medications Home Medications Medication Instructions Recorded Confirmed Type atorvastatin [Lipitor] 40 mg PO QAM 12/13/18 08/21/19 History buspirone 10 mg PO TID 12/13/18 08/21/19 History levothyroxine 75 mcg PO QAM 12/13/18 08/21/19 History tizanidine [Zanaflex] 4 mg PO BID PRN 12/13/18 08/21/19 History pramipexole [Mirapex] 0.125 mg PO HS PRN 01/25/19 08/21/19 History tramadol [Ultram] 50 mg PO Q8 PRN 01/25/19 08/21/19 History potassium chloride [Klor-Con M20] 20 meq PO BID 03/30/19 08/21/19 History ondansetron HCl [Zofran] 8 mg PO Q6H PRN 05/12/19 08/21/19 History polyethylene glycol 3350 17 g PO DAILY PRN 05/12/19 08/21/19 History prochlorperazine maleate 10 mg PO BID PRN 05/12/19 08/21/19 History promethazine 25 mg PO Q6H PRN 05/12/19 08/21/19 History Calcium 600 + D(3) 1 cap PO BID 05/23/19 08/21/19 History Ocuvite Adult 50 Plus 1 cap PO QAM 05/23/19 08/21/19 History aspirin [Aspir-81] 81 mg PO QAM 05/23/19 08/21/19 History epinephrine 0.3 mg IM Q3H PRN 05/23/19 08/21/19 History magnesium oxide 400 mg PO BID 05/23/19 08/21/19 History nitroglycerin [Nitrostat] 0.3 mg SUBLINGUAL UD PRN 05/23/19 08/21/19 History nystatin 1 applic TOPICAL TID PRN 05/23/19 08/21/19 History olopatadine 1 drp OPHTHALMIC (EYE) QAM 05/23/19 08/21/19 History fentanyl [Duragesic] 1 patch TOPICAL [id number] 05/26/19 08/21/19 History fentanyl [Duragesic] 1 patch TOPICAL [id number] 05/26/19 08/21/19 History mirtazapine 7.5 mg PO HS 07/03/19 08/21/19 History pantoprazole 40 mg PO QAM 07/03/19 08/21/19 History Latuda 20 mg PO QPM 08/04/19 08/21/19 History carvedilol 6.25 mg PO BID 30 Days #60 tab 08/04/19 08/21/19 Rx hydrochlorothiazide 25 mg PO QAM 30 Days #30 tab 08/04/19 08/21/19 Rx amlodipine [Norvasc] 10 mg PO QAM 08/21/19 08/21/19 History hydroxyzine HCl 100 mg PO HS 08/21/19 08/21/19 History trazodone 200 mg PO HS 08/21/19 08/21/19 History Past Med/Surg History Social History Preferred Language: German Communication Ability: Effective Superintendent Stations Required: No Beliefs That Will Affect Care: None marital status: Single Current Living Situation: Alone current occupational status: retired Feels Safe at Home: Yes Safety Concerns: Feels Safe At This Time Smoking Status: Never smoker Second Hand Exposure: No ; Hx Alcohol Use: No Hx Substance Use: No Review of Systems Review of Systems: All systems reviewed & are unremarkable except as noted in HPI & below Physical Exam Eyes: PERRL, conjunctivae normal, anicteric sclerae EOM intact bilaterally Neck: normal visual inspection Cardiovascular: Rate/Rhythm: regular rate and regular rhythm Gastrointestinal (Abdomen): normal bowel sounds, soft, nontender, no hepatosplenomegaly Musculoskeletal: Head/Neck/Chest: normocephalic and head atraumatic bilateral 1+ edema of lower extremities with erythema of the right leg Neurologic: PERRL, EOMI, accommodation nl, no face palsy, no dysarthria CN's II-XI intact bilaterally Psychiatric: A+Ox3, euthymic affect Results & Data Vital Signs (Past 12 Hours) Vital Signs Temp Pulse Pulse Resp BP Pulse Ox 08/21/19 18:55 78 18 95 08/21/19 18:34 77 15 93 08/21/19 18:02 76 19 92 08/21/19 18:01 76 20 175/86 H 93 08/21/19 18:00 77 19 92 08/21/19 17:30 75 18 134/83 91 08/21/19 17:09 80 12 92 08/21/19 16:30 83 23 123/82 08/21/19 16:27 88 L 08/21/19 16:00 77 22 140/72 93 08/21/19 15:41 75 21 130/75 94 08/21/19 15:30 72 16 08/21/19 15:00 68 14 08/21/19 14:30 63 13 08/21/19 14:25 99 08/21/19 14:22 64 17 08/21/19 14:18 60 13 124/70 91 08/21/19 13:56 36.5 C 86 16 92/67 L 99
[2019-08-21] MEDS ORDERED: PIPERACILLIN/TAZOBACTAM 4.5 GM in DEXTROSE 5% 100 ML IV ONE (20:00)
[2019-08-21] MEDS ORDERED: ACETAMINOPHEN 325 MG TAB PO PRN (20:09)
[2019-08-21] MEDS ORDERED: FUROSEMIDE 20 MG in SYRINGE 0 ML IV ONE (20:15)
--- NOTE | 2019-08-21 20:27 | Emergency Department Note ---
Entered by Mariel Nieto acting as a scribe for Jamaal Bentley History of Present Illness General Chief complaint: Shortness of Breath/Dyspnea Stated complaint: DVT Time Seen by Provider: 08/21/19 14:09 Source: patient History of Present Illness Onset (ago): day(s) (couple) Location: lower extremity (right leg swelling) Pain Consistency: + other (worsening) Maximum Pain Intensity: 7 Relieved By: + none Associated symptoms: + denies other symptoms (coughing up blood, diarrhea, suicidal ideations, and homicidal ideation), + shortness of breath and + other (right leg pain); no chest pain and no nausea/vomiting The patient is a 69 year old F who presents to the Emergency Room with complaints of worsening lower right leg swelling that occurred a couple of days ago. The patient notes that she got her lower right leg wrapped by the on-call doctor at [facility]. She adds that she is in the ED because she is afraid of a blood clot. She notes that she is currently experiencing right leg pain and shortness of breath. She denies that she is currently experiencing chest pain, coughing up blood, nausea, vomiting, diarrhea, suicidal and homicidal ideations. She notes that the last time she had a blood clot, was 4 years ago, in her lung and leg. She adds that she was placed on IV blood thinning medications in the ED which caused her to experience internal bleeding. She notes that this is why she is not currently on any blood thinning medications. Home Medications Home Medications Medication Instructions Recorded Confirmed Type atorvastatin [Lipitor] 40 mg PO QAM 12/13/18 08/21/19 History buspirone 10 mg PO TID 12/13/18 08/21/19 History levothyroxine 75 mcg PO QAM 12/13/18 08/21/19 History tizanidine [Zanaflex] 4 mg PO BID PRN 12/13/18 08/21/19 History pramipexole [Mirapex] 0.125 mg PO HS PRN 01/25/19 08/21/19 History tramadol [Ultram] 50 mg PO Q8 PRN 01/25/19 08/21/19 History potassium chloride [Klor-Con M20] 20 meq PO BID 03/30/19 08/21/19 History ondansetron HCl [Zofran] 8 mg PO Q6H PRN 05/12/19 08/21/19 History polyethylene glycol 3350 17 g PO DAILY PRN 05/12/19 08/21/19 History prochlorperazine maleate 10 mg PO BID PRN 05/12/19 08/21/19 History promethazine 25 mg PO Q6H PRN 05/12/19 08/21/19 History Calcium 600 + D(3) 1 cap PO BID 05/23/19 08/21/19 History Ocuvite Adult 50 Plus 1 cap PO QAM 05/23/19 08/21/19 History aspirin [Aspir-81] 81 mg PO QAM 05/23/19 08/21/19 History epinephrine 0.3 mg IM Q3H PRN 05/23/19 08/21/19 History magnesium oxide 400 mg PO BID 05/23/19 08/21/19 History nitroglycerin [Nitrostat] 0.3 mg SUBLINGUAL UD PRN 05/23/19 08/21/19 History nystatin 1 applic TOPICAL TID PRN 05/23/19 08/21/19 History olopatadine 1 drp OPHTHALMIC (EYE) QAM 05/23/19 08/21/19 History fentanyl [Duragesic] 1 patch TOPICAL [id number] 05/26/19 08/21/19 History fentanyl [Duragesic] 1 patch TOPICAL [id number] 05/26/19 08/21/19 History mirtazapine 7.5 mg PO HS 07/03/19 08/21/19 History pantoprazole 40 mg PO QAM 07/03/19 08/21/19 History Latuda 20 mg PO QPM 08/04/19 08/21/19 History carvedilol 6.25 mg PO BID 30 Days #60 tab 08/04/19 08/21/19 Rx hydrochlorothiazide 25 mg PO QAM 30 Days #30 tab 08/04/19 08/21/19 Rx amlodipine [Norvasc] 10 mg PO QAM 08/21/19 08/21/19 History hydroxyzine HCl 100 mg PO HS 08/21/19 08/21/19 History trazodone 200 mg PO HS 08/21/19 08/21/19 History Allergies Allergy/AdvReac Type Severity Reaction Status Date / Time latex Allergy Intermediate Rash Verified 08/21/19 14:45 nickel Allergy Intermediate SEVERE Verified 08/21/19 14:45 DERMATITIS NSAIDS (Non-Steroidal Allergy Intermediate HX OF Verified 08/21/19 14:45 Anti-Inflamma BLEEDING ULCERS-TO AVOID aspirin AdvReac Intermediate bleeding Verified 08/21/19 14:45 ulcers Past Med/Surg History Social History Preferred Language: Icelandic Communication Ability: Effective [employer] Consultant Required: No Beliefs That Will Affect Care: None marital status: Single Current Living Situation: Alone current occupational status: retired Feels Safe at Home: Yes Safety Concerns: Feels Safe At This Time Smoking Status: Never smoker Second Hand Exposure: No ; Hx Alcohol Use: No Hx Substance Use: No Review of Systems See HPI for pertinent positives & negatives. and A total of 10 systems reviewed and were otherwise negative Physical Exam Vital Signs Vital Signs - 24 hr 08/21/19 13:56 08/21/19 14:18 08/21/19 14:22 Temperature 36.5 C Temperature Source Oral Sepsis Recent Fever Within 48 Hours No Sepsis New/Unexplained Change in Mental Status No Sepsis Action Taken by Nursing No Action Required Pulse Rate 86 60 64 Pulse Rate [Apical] Pulse Rate from SpO2 Sensor 60 64 Respiratory Rate 16 13 17 Respiratory Effort / Characteristics Non-Labored Respiratory Depth Normal Blood Pressure 92/67 L 124/70 Blood Pressure [Right Arm] Blood Pressure Mean 75 88 Blood Pressure Mean [Right Arm] Blood Pressure Position Sitting Pulse Oximetry 99 91 Oxygen Delivery Method Room Air Oxygen Flow Rate 08/21/19 14:25 08/21/19 14:30 08/21/19 15:00 Temperature Temperature Source Sepsis Recent Fever Within 48 Hours Sepsis New/Unexplained Change in Mental Status Sepsis Action Taken by Nursing Pulse Rate 63 68 Pulse Rate [Apical] Pulse Rate from SpO2 Sensor 62 Respiratory Rate 13 14 Respiratory Effort / Characteristics Respiratory Depth Blood Pressure Blood Pressure [Right Arm] Blood Pressure Mean Blood Pressure Mean [Right Arm] Blood Pressure Position Pulse Oximetry 99 Oxygen Delivery Method Room Air Oxygen Flow Rate 08/21/19 15:30 08/21/19 15:41 08/21/19 16:00 Temperature Temperature Source Sepsis Recent Fever Within 48 Hours Sepsis New/Unexplained Change in Mental Status Sepsis Action Taken by Nursing Pulse Rate 72 75 77 Pulse Rate [Apical] Pulse Rate from SpO2 Sensor 70 74 Respiratory Rate 16 21 22 Respiratory Effort / Characteristics Respiratory Depth Blood Pressure 130/75 140/72 Blood Pressure [Right Arm] Blood Pressure Mean 93 94 Blood Pressure Mean [Right Arm] Blood Pressure Position Pulse Oximetry 94 93 Oxygen Delivery Method Oxygen Flow Rate 08/21/19 16:27 08/21/19 16:30 08/21/19 17:09 Temperature Temperature Source Sepsis Recent Fever Within 48 Hours Sepsis New/Unexplained Change in Mental Status Sepsis Action Taken by Nursing Pulse Rate 83 80 Pulse Rate [Apical] Pulse Rate from SpO2 Sensor 78 Respiratory Rate 23 12 Respiratory Effort / Characteristics Respiratory Depth Blood Pressure 123/82 Blood Pressure [Right Arm] Blood Pressure Mean 95 Blood Pressure Mean [Right Arm] Blood Pressure Position Pulse Oximetry 88 L 92 Oxygen Delivery Method Room Air Oxygen Flow Rate 08/21/19 17:30 08/21/19 18:00 08/21/19 18:01 Temperature Temperature Source Sepsis Recent Fever Within 48 Hours Sepsis New/Unexplained Change in Mental Status Sepsis Action Taken by Nursing Pulse Rate 75 77 76 Pulse Rate [Apical] Pulse Rate from SpO2 Sensor 75 77 77 Respiratory Rate 18 19 20 Respiratory Effort / Characteristics Respiratory Depth Blood Pressure 134/83 175/86 H Blood Pressure [Right Arm] Blood Pressure Mean 100 115 Blood Pressure Mean [Right Arm] Blood Pressure Position Pulse Oximetry 91 92 93 Oxygen Delivery Method Oxygen Flow Rate 08/21/19 18:02 08/21/19 18:34 08/21/19 18:55 Temperature Temperature Source Sepsis Recent Fever Within 48 Hours Sepsis New/Unexplained Change in Mental Status Sepsis Action Taken by Nursing Pulse Rate 76 77 Pulse Rate [Apical] 78 Pulse Rate from SpO2 Sensor 76 77 Respiratory Rate 19 15 18 Respiratory Effort / Characteristics Spontaneous Respiratory Depth Blood Pressure Blood Pressure [Right Arm] Blood Pressure Mean Blood Pressure Mean [Right Arm] Blood Pressure Position Pulse Oximetry 92 93 95 Oxygen Delivery Method Nasal Cannula Nasal Cannula Oxygen Flow Rate 2 1.5 08/21/19 19:20 Temperature Temperature Source Sepsis Recent Fever Within 48 Hours Sepsis New/Unexplained Change in Mental Status Sepsis Action Taken by Nursing Pulse Rate Pulse Rate [Apical] 79 Pulse Rate from SpO2 Sensor Respiratory Rate 20 Respiratory Effort / Characteristics Respiratory Depth Blood Pressure Blood Pressure [Right Arm] 138/78 Blood Pressure Mean Blood Pressure Mean [Right Arm] 98 Blood Pressure Position Pulse Oximetry 92 Oxygen Delivery Method Nasal Cannula Oxygen Flow Rate 2 GENERAL: She is oriented to person, place, and time. She appears well-developed and well-nourished. She does not appear distressed. HENT: Exam performed. - Head: Normocephalic and atraumatic. - Right Ear: External ear normal. No mastoid tenderness. - Left Ear: External ear normal. No mastoid tenderness. - Mouth/Throat: The oropharynx is clear and moist. No trismus in the jaw. No dental abscesses or uvula swelling. No oropharyngeal exudate or tonsillar abscesses. EYES: Conjunctivae and EOM are normal. Pupils are equal, round, and reactive to light. Right eye exhibits no discharge. Left eye exhibits no discharge. No scleral icterus. NECK: Normal range of motion. Neck supple. No JVD present. No spinous process tenderness present. No carotid bruit present. No rigidity. No tracheal deviation and normal range of motion present. No Brudzinski's sign and no Kernig's sign noted. CV: Normal rate, regular rhythm, normal heart sounds and intact distal pulses. There is no peripheral edema. Palpable radial pulses bue. PULM/CHEST: Effort normal and breath sounds normal. No respiratory distress. No stridor. She has no wheezes. She has no rales. Chest Wall: She exhibits no tenderness. ABD: The abdomen is soft. Bowel sounds are normal. She has no distension. No mass is present. There is no tenderness. There is no rebound, no guarding, no Mu rphy's sign and no tenderness at McBurney's point. Rovsig negative MUSC/SKEL: Normal range of motion. There is no peripheral edema, tenderness or deformity. LYMPH: No cervical adenopathy. NEURO: She is alert and oriented to person, place, and time. She has normal strength. No cranial nerve deficit or sensory deficit. Coordination and gait normal. GCS eye subscore is 4. GCS verbal subscore is 5. GCS motor subscore is 6. cerbellar tests wnl. SKIN: Skin is warm and dry. She is not diaphoretic. Mild erythema over the posterior right lower extremity. PSYCH: She has a normal mood and affect. Her behavior is normal. Judgment and thought content normal. Course 1412: The patient was evaluated in room C9. A complete history and physical exam was performed. The EMR was reviewed and shows that the patient has a history of cyclic vomiting syndrome, mood disorder, HTN, CAD, PE, DVT, migraines, PTSD, and an appendectomy. The records also shows that the patient was discharged on August 04 after having cyclic vomiting and hyponatremia. The patient was met with psychiatric at that time. 1832: The patient became hypoxic on room air. She was started on 2L nasal cannula. Labs within normal limits with the exception of an elevated d-dimer test. Ultrasound negative for DVT. Given the patient's hypoxia and elevated d- dimer, CTA was performed to rule out PE. CTA negative for PE. The patient is still not wheezing on physical exam. Given the patient's long history of emphysema, the patient will be admitted to the [facility] service. I reviewed the patient's case with Dr. Carreno, [facility] Hospitalist. He will evaluate the patient for further management. Administered Medications Ioversol (Optiray 320 125ml) 81 ml IV ONCE PRN PRN Reason: Interaction Checking Stop: 08/25/19 17:43 Last Admin: 08/21/19 17:45 Dose: 81 ml Documented by: [id number] Discontinued Medications Albuterol (Duoneb) 3 ml NEB NOW STA Stop: 08/21/19 18:40 Last Admin: 08/21/19 18:52 Dose: 3 ml Documented by: [id number] Sodium Chloride (Nss 1000ml) 1,000 mls @ 999 mls/hr IV .Q1H1M ONE Stop: 08/21/19 15:14 Last Infusion: 08/21/19 16:56 Dose: 0 mls/hr Documented by: [id number] Admin: 08/21/19 15:42 Dose: 999 mls/hr Documented by: [id number] Medical Decision Making Medical Records Attestation: I reviewed the patient's medical records. Home Medications Current Medication List: was personally reviewed by me Laboratory Data Attestation: I reviewed the patient's lab results. Result diagrams: 08/21/19 15:35 08/21/19 15:36 Lab Results 08/21/19 08/21/19 08/21/19 Range/Units 15:35 15:35 15:36 WBC 8.40 (4.8-10.8) K/uL RBC 4.18 L (4.2-5.4) M/uL Hgb 11.7 L (12.0-16.0) g/dL Hct 35.3 L (37-47) % MCV 84.4 (80-100) fL MCH 28.0 (25-34) pg MCHC 33.1 (32-36) g/dL RDW Std Deviation 44.6 (36.4-46.3) fL RDW Coeff of [place] 14.4 (11.5-14.5) % Plt Count 300 (130-400) K/uL MPV 8.9 (7.4-10.4) fL Immature Gran % (Auto) 0.1 % Neut % (Auto) 56.4 % Lymph % (Auto) 27.7 % [place] % (Auto) 9.4 % Eos % (Auto) 6.0 % Baso % (Auto) 0.4 % Immature Gran # (Auto) 0.01 (0.00-0.02) K/uL Neut # (Auto) 4.74 (1.4-6.5) K/uL Lymph # (Auto) 2.33 (1.2-3.4) K/uL [place] # (Auto) 0.79 H (0.11-0.59) K/uL Eos # (Auto) 0.50 (0-0.5) K/uL Baso # (Auto) 0.03 (0-0.2) K/uL ESR (0-21) mm/hr PT (9.0-12.0) Seconds INR (0.9-1.1) APTT (21.0-31.0) Seconds PTT Ratio D-Dimer (0-500) ug/L FEU Sodium 140 (136-145) mmol/L Potassium 3.7 (3.5-5.1) mmol/L Chloride 104 (98-107) mmol/L Carbon Dioxide 30 (21-32) mmol/L Anion Gap 6.0 (3-11) BUN 9 (7-18) mg/dl Creatinine 0.78 (0.6-1.2) mg/dl Est Cr Clr Drug Dosing 72.0 ml/min Est GFR ( Amer) 88.6 Est GFR (Non-Af Amer) 76.5 BUN/Creatinine Ratio 12.0 (10-20) Glucose 109 H (70-99) mg/dl Lactate 1.3 (0.4-2.0) mmol/L Calcium 9.1 (8.5-10.1) mg/dl Total Bilirubin 0.6 (0.2-1) mg/dl Direct Bilirubin 0.2 (0-0.2) mg/dl AST 14 L (15-37) U/L ALT 18 (12-78) U/L Alkaline Phosphatase 95 (45-117) U/L Troponin I < 0.015 (0-0.045) ng/ml C-Reactive Protein (0-0.29) mg/dl NT-Pro-B Natriuret Pep (0-900) pg/ml Total Protein 6.9 (6.4-8.2) gm/dl Albumin 3.3 L (3.4-5.0) gm/dl Lipase 34 L (73-393) U/L 08/21/19 08/21/19 08/21/19 Range/Units 15:36 15:36 15:36 WBC (4.8-10.8) K/uL RBC (4.2-5.4) M/uL Hgb (12.0-16.0) g/dL Hct (37-47) % MCV (80-100) fL MCH (25-34) pg MCHC (32-36) g/dL RDW Std Deviation (36.4-46.3) fL RDW Coeff of [place]den (11.5-14.5) % Plt Count (130-400) K/uL MPV (7.4-10.4) fL Immature Gran % (Auto) % Neut % (Auto) % Lymph % (Auto) % [place] % (Auto) % Eos % (Auto) % Baso % (Auto) % Immature Gran # (Auto) (0.00-0.02) K/uL Neut # (Auto) (1.4-6.5) K/uL Lymph # (Auto) (1.2-3.4) K/uL [place] # (Auto) (0.11-0.59) K/uL Eos # (Auto) (0-0.5) K/uL Baso # (Auto) (0-0.2) K/uL ESR 19 (0-21) mm/hr PT 10.9 (9.0-12.0) Seconds INR 1.1 (0.9-1.1) APTT 24.2 (21.0-31.0) Seconds PTT Ratio 0.9 D-Dimer 730 H* (0-500) ug/L FEU Sodium (136-145) mmol/L Potassium (3.5-5.1) mmol/L Chloride (98-107) mmol/L Carbon Dioxide (21-32) mmol/L Anion Gap (3-11) BUN (7-18) mg/dl Creatinine (0.6-1.2) mg/dl Est Cr Clr Drug Dosing ml/min Est GFR ( Amer) Est GFR (Non-Af Amer) BUN/Creatinine Ratio (10-20) Glucose (70-99) mg/dl Lactate (0.4-2.0) mmol/L Calcium (8.5-10.1) mg/dl Total Bilirubin (0.2-1) mg/dl Direct Bilirubin (0-0.2) mg/dl AST (15-37) U/L ALT (12-78) U/L Alkaline Phosphatase (45-117) U/L Troponin I (0-0.045) ng/ml C-Reactive Protein (0-0.29) mg/dl NT-Pro-B Natriuret Pep (0-900) pg/ml Total Protein (6.4-8.2) gm/dl Albumin (3.4-5.0) gm/dl Lipase (73-393) U/L 08/21/19 08/21/19 Range/Units 15:36 15:36 WBC (4.8-10.8) K/uL RBC (4.2-5.4) M/uL Hgb (12.0-16.0) g/dL Hct (37-47) % MCV (80-100) fL MCH (25-34) pg MCHC (32-36) g/dL RDW Std Deviation (36.4-46.3) fL RDW Coeff of [place] (11.5-14.5) % Plt Count (130-400) K/uL MPV (7.4-10.4) fL Immature Gran % (Auto) % Neut % (Auto) % Lymph % (Auto) % [place] % (Auto) % Eos % (Auto) % Baso % (Auto) % Immature Gran # (Auto) (0.00-0.02) K/uL Neut # (Auto) (1.4-6.5) K/uL Lymph # (Auto) (1.2-3.4) K/uL [place] # (Auto) (0.11-0.59) K/uL Eos # (Auto) (0-0.5) K/uL Baso # (Auto) (0-0.2) K/uL ESR (0-21) mm/hr PT (9.0-12.0) Seconds INR (0.9-1.1) APTT (21.0-31.0) Seconds PTT Ratio D-Dimer (0-500) ug/L FEU Sodium (136-145) mmol/L Potassium (3.5-5.1) mmol/L Chloride (98-107) mmol/L Carbon Dioxide (21-32) mmol/L Anion Gap (3-11) BUN (7-18) mg/dl Creatinine (0.6-1.2) mg/dl Est Cr Clr Drug Dosing ml/min Est GFR ( Amer) Est GFR (Non-Af Amer) BUN/Creatinine Ratio (10-20) Glucose (70-99) mg/dl Lactate (0.4-2.0) mmol/L Calcium (8.5-10.1) mg/dl Total Bilirubin (0.2-1) mg/dl Direct Bilirubin (0-0.2) mg/dl AST (15-37) U/L ALT (12-78) U/L Alkaline Phosphatase (45-117) U/L Troponin I (0-0.045) ng/ml C-Reactive Protein < 0.29 (0-0.29) mg/dl NT-Pro-B Natriuret Pep 124 (0-900) pg/ml Total Protein (6.4-8.2) gm/dl Albumin (3.4-5.0) gm/dl Lipase (73-393) U/L Imaging Data Radiologist's Impression: Radiology results as stated below per my review and the radiologist's interpretation: CT ANGIOGRAM OF THE CHEST CLINICAL HISTORY: Dyspnea. COMPARISON STUDY: Chest x-ray dated 07/30/2019. Chest CT scans dated 07/03/2019 and 02/16/2015. TECHNIQUE: Following the IV administration of 81 cc of Optiray 320, CT angiogram of the chest was performed from the upper abdomen to the thoracic inlet utilizing the pulmonary embolus protocol. Images are reviewed in the axial, sagittal, and coronal planes. 3-D MIPS images are created and assessed. IV contrast was administered without complication. A dose lowering technique was utilized adhering to the principles of ALARA. CT DOSE: 508.13 mGy.cm FINDINGS: Thyroid: Imaged portions of the thyroid gland are normal in size and attenuation. Thoracic aorta: The thoracic aorta is normal in caliber and demonstrates standard 3-vessel arch anatomy. No dissection is seen. Pulmonary vasculature: The pulmonary trunk is dilated measuring 3.5 cm in diameter. This suggests pulmonary artery hypertension. There are no filling defects identified in main, lobar, or segmental pulmonary branches to suggest pulmonary embolus. Heart: A left subclavian central venous infusion port is in place. The heart is enlarged and without pericardial effusion. The coronary arteries are densely calcified. Lungs and pleural spaces: Emphysematous change is noted. There is volume loss in the left lung with postoperative change and scarring/fibrosis at the left lung base. Scarring/atelectasis is also noted at the right lung base. No airspace consolidation is seen typical for pneumonia. Mild intralobular septal thickening is identified. There are scattered calcified granulomas. Mediastinum: Mildly enlarged paratracheal node on image #179 is unchanged and measures 11 mm in short axis. Gracia: Prominent right hilar nodes measure up to 13 mm in short axis. Axillae: There is no axillary lymphadenopathy. Upper abdomen: There is a small hiatal hernia. Partially visualized upper abdominal viscera is within normal limits. Skeletal structures: The skeletal structures are osteopenic. Degenerative change and scoliosis are noted throughout the thoracic spine with extensive p ostlaminectomy change. Postoperative change is noted within several left-sided ribs. No lytic or blastic bony lesions are seen. IMPRESSION: 1. There is no evidence of pulmonary embolus in the main, lobar, or segmental pulmonary arteries. 2. Cardiomegaly and emphysema with evidence of pulmonary artery hypertension. 3. There is no airspace consolidation or pleural effusion. Chronic parenchymal changes are detailed above. 4. Mild intralobular septal thickening is noted in the upper lobes. This could represent a component of mild acute versus chronic congestion. Clinical correlation will be required. 5. Additional findings as above. Electronically signed by: Ivan Smith M.D. 08/21/2019 6:06 PM ULTRASOUND RIGHT LOWER EXTREMITY VENOUS CLINICAL HISTORY: Right lower extremity edema and erythema. COMPARISON STUDY: Bilateral lower extremity venous ultrasound dated 03/27/2017. TECHNIQUE: Real-time, grayscale, and color Doppler sonography of the deep veins of the right lower extremity was performed from the inguinal crease to the calf. Compression and augmentation were utilized. FINDINGS: There is no sonographic evidence of deep venous thrombosis identified in the right lower extremity. The common femoral, superficial femoral, and popli teal veins are patent and normally compressible. The greater saphenous vein and the profunda femoris vein at the junction with the common femoral vein are clear. The visualized calf veins are patent. Soft tissue edema is noted in the calf. IMPRESSION: There is no sonographic evidence of deep venous thrombosis identified in the right lower extremity. Electronically signed by: Ivan Smith M.D. 08/21/2019 5:05 PM ECG Data Attestation: I personally reviewed and interpreted this ECG as follows: Indication: + SOB/dyspnea Rate (beats per minute): 67 Rhythm: + sinus rhythm ECG Intervals/blocks: + Normal QRS ECG ST segments: no ST depression and no ST elevation ECG Findings: + Other (GA, QRS, and QTc intervals within normal limits) Blood Pressure Blood Pressure Findings: Elevated blood pressure Blood Pressure Disposition: further management by hospitalist LU Narrative 1412: The patient was evaluated in room C9. A complete history and physical exam was performed. The EMR was reviewed and shows that the patient has a history of cyclic vomiting syndrome, mood disorder, HTN, CAD, PE, DVT, migraines, PTSD, and an appendectomy. The records also shows that the patient was discharged on August 04 after having cyclic vomiting and hyponatremia. The patient was met with psychiatric at that time. 1833: The patient became hypoxic on room air. She was started on 2L nasal cannula. Labs within normal limits with the exception of an elevated d-dimer test. Ultrasound negative for DVT. Given the patient's hypoxia and elevated d- dimer, CTA was performed to rule out PE. CTA negative for PE. The patient is still not wheezing on physical exam. Given the patient's long history of emphysema, the patient will be admitted to the [facility] service. I reviewed the patient's case with Dr. Carreno, [facility] Hospitalist. He will evaluate the patient for further management. Impression & Plan Hypoxia Critical Care Time Critical Care Time: Yes Total Critical Care Time: 57 I have personally spent 57 minutes of critical care time in the direct management of this patient. This includes bedside care, interpretation of diagnostic studies, and testing, discussion with consultants, patient, and family members, and other required patient management activities. This 57 minutes is in excess of all separately billable procedures. Discharge Plan Visit Data *Final* Discharge Date/Time: 08/21/19 19:54 Chief Complaint: Shortness of Breath/Dyspnea Stated Complaint: DVT ED Provider: Jamaal Bentley Discharge Problem: Hypoxia Patient Disposition: Admitted As Inpatient Discharge Instructions Interventions: ED Discharge Assessment Last Done: 08/21/19 19:54 The scribe's documentation has been prepared under my direction and personally reviewed by me in its entirety. I confirm that the note above accurately reflects all work, treatment, procedures, and medical decision making performed by me.
[2019-08-21] MEDS ORDERED: fentaNYL 25 MCG/HR TDSY TD SCH (21:00)
[2019-08-21] MEDS: ONDANSETRON INJ 2 MG/ML 2 ML VIAL IV SCH (21:03)
[2019-08-21] MEDS: TRAZODONE HCL 100 MG TAB PO SCH (21:06)
[2019-08-21] MEDS: MIRTAZAPINE TAB 15 MG TAB PO SCH (21:06)
[2019-08-21] MEDS: CALCIUM 600MG + VIT D 400 IU TAB PO SCH (21:06)
[2019-08-21] MEDS: CARVEDILOL 6.25 MG TAB PO SCH (21:06)
[2019-08-22] MEDS: CHECK FENTANYL PATCH PLACEMENT SCH ×3 (00:08→15:35)
[2019-08-22] MEDS: PIPERACILLIN/TAZOBACTAM 4.5 GM in DEXTROSE 5% 100 ML IV SCH ×2 (01:19→08:42)
[2019-08-22] MEDS: ONDANSETRON INJ 2 MG/ML 2 ML VIAL IV SCH ×4 (01:19→20:26)
[2019-08-22 05:19] LABS: Basophils # (auto) 0.03 K/uL (0-0.2); Basophils % (auto) 0.4 %; Eosinophils # (auto) 0.46 K/uL (0-0.5); Eosinophils % (auto) 6.7 %; Hematocrit (blood only) 35.3 % (37-47); Hemoglobin 11.6 g/dL (12.0-16.0); Lymphocytes # (auto) 1.84 K/uL (1.2-3.4); Lymphocytes % (auto) 26.7 %; Mean Corpuscular Hgb Conc 32.9 g/dL (32-36); Mean Corpuscular Volume 85.1 fL (80-100); Mean Platelet Volume 8.8 fL (7.4-10.4); Monocytes # (auto) 0.64 K/uL (0.11-0.59); Monocytes % (auto) 9.3 %; Neutrophils # (auto) 3.91 K/uL (1.4-6.5); Neutrophils % (auto) 56.9 %; Platelet Count 297 K/uL (130-400); RDW Coefficient of Variation 14.4 % (11.5-14.5); RDW Standard Deviation 44.9 fL (36.4-46.3); Red Blood Count 4.15 M/uL (4.2-5.4); White Blood Count 6.88 K/uL (4.8-10.8)
[2019-08-22] MEDS: LEVOTHYROXINE SODIUM 75 MCG TABLET PO SCH (05:24)
[2019-08-22 05:36] LABS: Albumin Level 2.9 gm/dl (3.4-5.0); BUN Creatinine Ratio 11.5 (10-20); Calcium 8.7 mg/dl (8.5-10.1); Creatinine Clr Calc Pharmacy 63.8 ml/min; Est GFR (African American) 76.6; Est GFR (Non-African American) 66.1; Magnesium 1.6 mg/dl (1.8-2.4); Potassium 3.3 mmol/L (3.5-5.1)
[2019-08-22 05:39] LABS: Albumin Globulin Ratio 0.9 (0.9-2); Bilirubin,Total 0.6 mg/dl (0.2-1); Globulin 3.4 gm/dl (2.5-4.0); Phosphorus 5.3 mg/dl (2.5-4.9); Total Protein 6.3 gm/dl (6.4-8.2)
[2019-08-22] MEDS: CEROVITE ADV FORMULA TAB PO SCH (08:42)
[2019-08-22] MEDS: hydroCHLOROthiazide 25 MG TAB PO SCH (08:42)
[2019-08-22] MEDS: ATORVASTATIN 40 MG TAB PO SCH (08:42)
[2019-08-22] MEDS: ASPIRIN 81 MG ECTAB PO SCH (08:42)
[2019-08-22] MEDS: AMLODIPINE BESYLATE 5 MG TAB PO SCH (08:42)
[2019-08-22] MEDS: PANTOprazole 40 MG TAB PO SCH (08:42)
[2019-08-22] MEDS: CARVEDILOL 6.25 MG TAB PO SCH ×2 (08:42→20:36)
[2019-08-22] MEDS: CALCIUM 600MG + VIT D 400 IU TAB PO SCH ×2 (08:43→20:30)
[2019-08-22] MEDS: ENOXAPARIN INJ 40 MG/0.4 ML SYR SQ SCH (08:43)
[2019-08-22] MEDS ORDERED: POTASSIUM CHLORIDE 20 MEQ TABCR PO STA (11:44)
--- NOTE | 2019-08-22 12:44 | Hospitalist Progress Note ---
Date of Service August 22, 2019 Assessment & Plan (1) Cellulitis of right lower extremity: Right leg cellulitis No fevers since admission Blood cultures in lab Was on zosyn Will change to ceftriaxone for now (2) Hypoxia: Denied supplementary oxygen use at home. States she is in the workup for sleep study a outpatient to investigate whether she has obstructive sleep apnea but does not have CPAP at home. In the ER, patient was started on supplementary oxygen as oxygen saturation was 88% CTA in the ED on this admission did not show evidence of pulmonary embolism nor pneumonia. Patient does report cough and headache. Stated she had low grade temp before admission. Possible URI Currently on 1l/min of oxygen. Has not had any low spO2 since after that recording in ER. Take off oxygen and monitor (3) Bilateral lower extremity edema: Left leg edema has resolved. Still has some swelling around right cellulitic leg Got lasix yesterday I/O yesterday was 1540/[address] chest not suggestive of heart failure Continue home dose HCTZ 25 mg daily Echocardiogram in 06/2019 with normal systolic function (4) Hypertension: Continue home dose HCTZ 25 mg daily, amlodipine 10 mg daily and coreg 6.125mg bid (5) CAD (coronary artery disease): s/p stent in 2017 Continue aspirin, statin, carvedilol (6) Mood disorder: Stable Continue home meds -mirtazapine 7.5 mg tablet HS, buspirone 10 mg TID, Latuda 20 mg Tablet HS, Trazadone 200 mg HS (7) Restless leg syndrome: Continue Mirapex (8) Hypothyroidism: Continue levothyroxine (9) Chronic pain: Chronic back pain secondary to history of back surgeries On Fentanyl patches chronically (10) DVT prophylaxis: Lovenox sq Full Code son Hanna in [place] [phone] Subjective Patient reports she feels much better. No fevers, chills, nausea or vomiting. Still has dry cough but improving Denied any shortness of breath today Reports leg swelling is improved. Stated she occasionally has feet swelling but never involving the legs. Still has right leg pain Review of Systems Review of Systems: All systems reviewed and unremarkable except for mentioned above. Physical Exam Constitutional: well developed and well nourished; no acute distress Eyes: PERRL, conjunctivae normal, anicteric sclerae ENMT: external ear and nose normal, oropharynx normal Neck: trachea midline, no thyromegaly Respiratory: normal respiratory effort, lungs clear to auscultation Cardiovascular: RRR, no murmur, no edema Heart Sounds: normal S1 and normal S2 Gastrointestinal (Abdomen): normal bowel sounds, soft, nontender, no hepatosplenomegaly Musculoskeletal: Erythema and tenderness over medial part of distal right leg associated with swelling. No swelling of left leg Neurologic: PERRL, EOMI, accommodation nl, no face palsy, no dysarthria Psychiatric: A+Ox3, euthymic affect Results & Data Vital Signs (Past 12 Hours) Vital Signs Temp Pulse Resp BP Pulse Ox 08/22/19 11:45 36.8 C 67 15 140/65 92 08/22/19 08:46 93 08/22/19 08:20 93 08/22/19 07:50 36.6 C 67 19 138/61 91 08/22/19 05:24 93 08/22/19 01:24 93 Laboratory Results Short CBC 08/21/19 08/22/19 Range/Units 15:35 04:45 WBC 8.40 6.88 (4.8-10.8) K/uL Hgb 11.7 L 11.6 L (12.0-16.0) g/dL Hct 35.3 L 35.3 L (37-47) % Plt Count 300 297 (130-400) K/uL BMP 08/21/19 08/22/19 15:36 04:45 Sodium 140 141 Potassium 3.7 3.3 L Chloride 104 102 Carbon Dioxide 30 33 H BUN 9 10 Creatinine 0.78 0.88 Glucose 109 H 127 H Calcium 9.1 8.7 Cardiac Enzymes 08/21/19 Range/Units 15:36 Troponin I < 0.015 (0-0.045) ng/ml Liver Function 08/21/19 08/22/19 Range/Units 15:36 04:45 Total Bilirubin 0.6 0.6 (0.2-1) mg/dl Direct Bilirubin 0.2 (0-0.2) mg/dl AST 14 L 11 L (15-37) U/L ALT 18 17 (12-78) U/L Alkaline Phosphatase 95 88 (45-117) U/L Albumin 3.3 L 2.9 L (3.4-5.0) gm/dl
[2019-08-22] MEDS: cefTRIAXone SODIUM 2,000 MG in DEXTROSE 5% 50 ML IV SCH (15:41)
[2019-08-22] MEDS ORDERED: TRAMADOL HCL 50 MG TABLET PO PRN (16:46)
[2019-08-22] MEDS: MIRTAZAPINE TAB 15 MG TAB PO SCH (20:28)
[2019-08-22] MEDS: TRAZODONE HCL 100 MG TAB PO SCH (20:30)
[2019-08-23] MEDS: CHECK FENTANYL PATCH PLACEMENT SCH ×3 (00:26→15:23)
[2019-08-23] MEDS ORDERED: LORazepam 0.5 MG TAB PO STA ×2 (00:43→22:15)
[2019-08-23] MEDS: ONDANSETRON INJ 2 MG/ML 2 ML VIAL IV SCH ×4 (02:15→19:56)
[2019-08-23] MEDS: LEVOTHYROXINE SODIUM 75 MCG TABLET PO SCH (05:36)
[2019-08-23 06:22] LABS: Hematocrit (blood only) 36.9 % (37-47); Mean Corpuscular Hemoglobin 27.9 pg (25-34); Mean Corpuscular Hgb Conc 32.5 g/dL (32-36); Mean Corpuscular Volume 85.8 fL (80-100); Mean Platelet Volume 9.4 fL (7.4-10.4); Platelet Count 294 K/uL (130-400); RDW Coefficient of Variation 14.4 % (11.5-14.5); White Blood Count 5.41 K/uL (4.8-10.8)
[2019-08-23 06:58] LABS: BUN Creatinine Ratio 13.5 (10-20); Calcium 9.2 mg/dl (8.5-10.1); Creatinine Clr Calc Pharmacy 79.1 ml/min; Est GFR (African American) 99.3; Est GFR (Non-African American) 85.7; Potassium 3.5 mmol/L (3.5-5.1)
[2019-08-23] MEDS: CARVEDILOL 6.25 MG TAB PO SCH ×2 (08:45→20:02)
[2019-08-23] MEDS: CALCIUM 600MG + VIT D 400 IU TAB PO SCH ×2 (08:45→19:59)
[2019-08-23] MEDS: hydroCHLOROthiazide 25 MG TAB PO SCH (08:46)
[2019-08-23] MEDS: ASPIRIN 81 MG ECTAB PO SCH (08:46)
[2019-08-23] MEDS: ATORVASTATIN 40 MG TAB PO SCH (08:46)
[2019-08-23] MEDS: ENOXAPARIN INJ 40 MG/0.4 ML SYR SQ SCH (08:46)
[2019-08-23] MEDS: CEROVITE ADV FORMULA TAB PO SCH (08:47)
[2019-08-23] MEDS: PANTOprazole 40 MG TAB PO SCH (08:47)
[2019-08-23] MEDS: AMLODIPINE BESYLATE 5 MG TAB PO SCH (08:47)
[2019-08-23] MEDS: cefTRIAXone SODIUM 2,000 MG in DEXTROSE 5% 50 ML IV SCH (15:33)
[2019-08-23] MEDS ORDERED: LURASIDONE HCL 40 MG TAB PO SCH (16:30)
--- NOTE | 2019-08-23 17:32 | Hospitalist Progress Note ---
Date of Service August 23, 2019 Assessment & Plan (1) Cellulitis of right lower extremity: Was sent from PCP office for RLE erythema, tenderness and swelling Doppler of LE showed no sonographic evidence of deep venous thrombosis identified in the right lower extremity. Blood cultures no growth Was starting on IV Zosyn, then transition to IV Rocephin RLE erythema resolved Pain and swelling improve Will transition to Keflex for 7 days (2) Hypoxia: Denied supplementary oxygen use at home. States she is in the workup for sleep study a outpatient to investigate whether she has obstructive sleep apnea but does not have CPAP at home. In the ER, patient was started on supplementary oxygen as oxygen saturation was 88% CTA in the ED on this admission did not show evidence of pulmonary embolism nor pneumonia. Saturated on RA currently (3) Bilateral lower extremity edema: Swelling improves significantly BNP and CT chest not suggestive of heart failure Continue home dose HCTZ 25 mg daily Echocardiogram in 06/2019 with normal systolic function Clinically improves (4) Hypertension: Continue home dose HCTZ 25 mg daily, amlodipine 10 mg daily and coreg 6.125mg bid BP stable (5) CAD (coronary artery disease): s/p stent in 2017 Continue aspirin, statin, carvedilol Stable (6) Mood disorder: Stable Continue home meds -mirtazapine 7.5 mg tablet HS, buspirone 10 mg TID, Latuda 20 mg Tablet HS, Trazadone 200 mg HS (7) Restless leg syndrome: Continue Mirapex (8) Hypothyroidism: Continue levothyroxine (9) Chronic pain: Chronic back pain secondary to history of back surgeries On Fentanyl patches chronically (10) DVT prophylaxis: Lovenox sq CODE STATUS Full Code Disposition Follow up with your primary care provider Dr. Spann on 08/26@ 11:00 Subjective Pt was seen and examined Lying in bed with no distress Erythema resolved in the leg Denies any chest pain, palpitation, dizziness and SOB Physical Exam Physical Exam: General- No acute distress Head- atraumatic Eyes- PERRL, EOMI, ENT- oropharynx clear Neck- supple, no JVD Lungs- clear to auscultation Heart- regular rhythm; no murmur Abdomen- normal bowel sounds, +tenderness Extremities- no calf tenderness, erythema improves significantly Neuro- alert, oriented x 3; PERRL, EOMI; no facial palsy; no dysarthria Skin- warm & dry Results & Data Vital Signs (Past 12 Hours) Vital Signs Temp Pulse Resp BP Pulse Ox 08/23/19 15:12 36.8 C 76 18 107/67 91 08/23/19 13:29 94 08/23/19 08:42 75 122/79 93 08/23/19 07:15 36.7 C 72 18 135/75 92
[2019-08-23] MEDS: cephALEXin 500 MG CAP PO SCH (19:55)
[2019-08-23] MEDS: TRAZODONE HCL 100 MG TAB PO SCH (20:01)
[2019-08-23] MEDS: MIRTAZAPINE TAB 15 MG TAB PO SCH (20:01)
[2019-08-24] MEDS: CHECK FENTANYL PATCH PLACEMENT SCH ×2 (00:20→07:56)
[2019-08-24] MEDS: ONDANSETRON INJ 2 MG/ML 2 ML VIAL IV SCH ×2 (02:54→09:12)
[2019-08-24] MEDS: LEVOTHYROXINE SODIUM 75 MCG TABLET PO SCH (06:09)
[2019-08-24 06:50] LABS: Hematocrit (blood only) 38.2 % (37-47); Hemoglobin 12.7 g/dL (12.0-16.0); Mean Corpuscular Hemoglobin 28.2 pg (25-34); Mean Corpuscular Hgb Conc 33.2 g/dL (32-36); Mean Corpuscular Volume 84.9 fL (80-100); Mean Platelet Volume 9.2 fL (7.4-10.4); Platelet Count 337 K/uL (130-400); RDW Coefficient of Variation 14.3 % (11.5-14.5); RDW Standard Deviation 44.4 fL (36.4-46.3); White Blood Count 7.41 K/uL (4.8-10.8)
[2019-08-24 07:26] LABS: BUN Creatinine Ratio 11.8 (10-20); Calcium 9.7 mg/dl (8.5-10.1); Creatinine Clr Calc Pharmacy 67.7 ml/min; Est GFR (African American) 82.2; Est GFR (Non-African American) 70.9; Potassium 3.3 mmol/L (3.5-5.1)
[2019-08-24] MEDS: cephALEXin 500 MG CAP PO SCH (07:58)
[2019-08-24] MEDS: ASPIRIN 81 MG ECTAB PO SCH (09:13)
[2019-08-24] MEDS: CALCIUM 600MG + VIT D 400 IU TAB PO SCH (09:13)
[2019-08-24] MEDS: CARVEDILOL 6.25 MG TAB PO SCH (09:13)
[2019-08-24] MEDS: CEROVITE ADV FORMULA TAB PO SCH (09:14)
[2019-08-24] MEDS: hydroCHLOROthiazide 25 MG TAB PO SCH (09:14)
[2019-08-24] MEDS: ENOXAPARIN INJ 40 MG/0.4 ML SYR SQ SCH (09:14)
[2019-08-24] MEDS: ATORVASTATIN 40 MG TAB PO SCH (09:14)
[2019-08-24] MEDS: PANTOprazole 40 MG TAB PO SCH (09:15)
[2019-08-24] MEDS: AMLODIPINE BESYLATE 5 MG TAB PO SCH (09:15)
--- NOTE | 2019-08-24 10:21 | Discharge Summary ---
Date of Service August 24, 2019 Admission HPI Per Admitting Provider This is a 69 year old Female who presented to the emergency after being sent by primary care doctor because right lower extremity erythema and swelling and pain x 3 days. patient also reported shortness of breath. With these symptoms, the primary care doctor sent patient to emergency room to rule out pulmonary embolism or DVT. CTA in the ED on this admission did not show evidence of pulmonary embolism. no lung congestion on CT imaging. no sonographic evidence of deep venous thrombosis identified in the right lower extremity. However, emergency room physician started patient on supplementary oxygen as oxygen sa turation was 88%. Patient denies supplementary oxygen use at home. She reports she is in the workup for sleep study a outpatient to investigate whether she has obstructive sleep apnea but does not have CPAP at home. -Patient denies smoking history or history of asthma. she reports that the bilateral swelling of her legs are new for her. Patient denies symptoms of fever. no chest pain. no palpitations. no abdomen pain. Admission Exam Per Admitting Provider Eyes: PERRL, conjunctivae normal, anicteric sclerae EOM intact bilaterally Neck: normal visual inspection Cardiovascular: regular rate and regular rhythm Gastrointestinal: normal bowel sounds, soft, nontender, no hepatosplenomegaly Musculoskeletal: Head/Neck/Chest: normocephalic and head atraumatic bilateral 1+ edema of lower extremities with erythema of the right leg Neurologic: PERRL, EOMI, accommodation nl, no face palsy, no dysarthria CN's II-XI intact bilaterally Psychiatric: A+Ox3, euthymic affect Principal Diagnosis Cellulitis of right lower extremity Hypoxia Bilateral lower extremity edema: Hypertension CAD (coronary artery disease): Mood disorder Restless leg syndrome Hypothyroidism: Chronic pain: Discharge Exam General- No acute distress Head- atraumatic Eyes- PERRL, EOMI, ENT- oropharynx clear Neck- supple, no JVD Lungs- clear to auscultation Heart- regular rhythm; no murmur Abdomen- normal bowel sounds, +tenderness Extremities- no calf tenderness, erythema improves significantly Neuro- alert, oriented x 3; PERRL, EOMI; no facial palsy; no dysarthria Skin- warm & dry Discharge Data Allergies Allergy/AdvReac Type Severity Reaction Status Date / Time latex Allergy Intermediate Rash Verified 08/21/19 14:45 nickel Allergy Intermediate SEVERE Verified 08/21/19 14:45 DERMATITIS NSAIDS (Non-Steroidal Allergy Intermediate HX OF Verified 08/21/19 14:45 Anti-Inflamma BLEEDING ULCERS-TO AVOID aspirin AdvReac Intermediate bleeding Verified 08/21/19 14:45 ulcers Consultations 08/21/19 18:36 ED Decision to Admit Stat Ordered Studies 08/21/19 14:15 US venous doppler LE RT Stat 08/21/19 17:27 CT angio chest PE protocol Stat CT ANGIOGRAM OF THE CHEST CLINICAL HISTORY: Dyspnea. COMPARISON STUDY: Chest x-ray dated 07/30/2019. Chest CT scans dated 07/03/2019 and 02/16/2015. TECHNIQUE: Following the IV administration of 81 cc of Optiray 320, CT angiogram of the chest was performed from the upper abdomen to the thoracic inlet utilizing the pulmonary embolus protocol. Images are reviewed in the axial, sagittal, and coronal planes. 3-D MIPS images are created and assessed. IV contrast was administered without complication. A dose lowering technique was utilized adhering to the principles of ALARA. CT DOSE: 508.13 mGy.cm FINDINGS: Thyroid: Imaged portions of the thyroid gland are normal in size and attenuation. Thoracic aorta: The thoracic aorta is normal in caliber and demonstrates standard 3-vessel arch anatomy. No dissection is seen. Pulmonary vasculature: The pulmonary trunk is dilated measuring 3.5 cm in diameter. This suggests pulmonary artery hypertension. There are no filling defects identified in main, lobar, or segmental pulmonary branches to suggest pulmonary embolus. Heart: A left subclavian central venous infusion port is in place. The heart is enlarged and without pericardial effusion. The coronary arteries are densely calcified. Lungs and pleural spaces: Emphysematous change is noted. There is volume loss in the left lung with postoperative change and scarring/fibrosis at the left lung base. Scarring/atelectasis is also noted at the right lung base. No airspace consolidation is seen typical for pneumonia. Mild intralobular septal thickening is identified. There are scattered calcified granulomas. Mediastinum: Mildly enlarged paratracheal node on image #179 is unchanged and measures 11 mm in short axis. Gracia: Prominent right hilar nodes measure up to 13 mm in short axis. Axillae: There is no axillary lymphadenopathy. Upper abdomen: There is a small hiatal hernia. Partially visualized upper abdominal viscera is within normal limits. Skeletal structures: The skeletal structures are osteopenic. Degenerative change and scoliosis are noted throughout the thoracic spine with extensive postlaminectomy change. Postoperative change is noted within several left-sided ribs. No lytic or blastic bony lesions are seen. IMPRESSION: 1. There is no evidence of pulmonary embolus in the main, lobar, or segmental pulmonary arteries. 2. Cardiomegaly and emphysema with evidence of pulmonary artery hypertension. 3. There is no airspace consolidation or pleural effusion. Chronic parenchymal changes are detailed above. 4. Mild intralobular septal thickening is noted in the upper lobes. This could represent a component of mild acute versus chronic congestion. Clinical correlation will be required. 5. Additional findings as above. Electronically signed by: Ivan Smith M.D. 08/21/2019 6:06 PM Dictated: 08/21/[id number] Transcribed: 08/21/191757 ULTRASOUND RIGHT LOWER EXTREMITY VENOUS CLINICAL HISTORY: Right lower extremity edema and erythema. COMPARISON STUDY: Bilateral lower extremity venous ultrasound dated 03/27/2017. TECHNIQUE: Real-time, grayscale, and color Doppler sonography of the deep veins of the right lower extremity was performed from the inguinal crease to the calf. Compression and augmentation were utilized. FINDINGS: There is no sonographic evidence of deep venous thrombosis identified in the right lower extremity. The common femoral, superficial femoral, and popliteal veins are patent and normally compressible. The greater saphenous vein and the profunda femoris vein at the junction with the common femoral vein are clear. The visualized calf veins are patent. Soft tissue edema is noted in the calf. IMPRESSION: There is no sonographic evidence of deep venous thrombosis identified in the right lower extremity. Electronically signed by: Ivan Smith M.D. 08/21/2019 5:05 PM Dictated: 08/21/191704 Transcribed: 08/21/191704 Hospital Course (1) Cellulitis of right lower extremity: Was sent from PCP office for RLE erythema, tenderness and swelling Doppler of LE showed no sonographic evidence of deep venous thrombosis identified in the right lower extremity. Blood cultures no growth Was starting on IV Zosyn, then transition to IV Rocephin RLE erythema resolved Pain and swelling improve Will transition to Keflex for 7 days (2) Hypoxia: Denied supplementary oxygen use at home. States she is in the workup for sleep study a outpatient to investigate whether she has obstructive sleep apnea but does not have CPAP at home. In the ER, patient was started on supplementary oxygen as oxygen saturation was 88% CTA in the ED on this admission did not show evidence of pulmonary embolism nor pneumonia. Saturated on RA currently (3) Bilateral lower extremity edema: Swelling improves significantly BNP and CT chest not suggestive of heart failure Continue home dose HCTZ 25 mg daily Echocardiogram in 06/2019 with normal systolic function Clinically improves (4) Hypertension: Continue home dose HCTZ 25 mg daily, amlodipine 10 mg daily and coreg 6.125mg bid BP stable (5) CAD (coronary artery disease): s/p stent in 2017 Continue aspirin, statin, carvedilol Stable (6) Mood disorder: Stable Continue home meds -mirtazapine 7.5 mg tablet HS, buspirone 10 mg TID, Latuda 20 mg Tablet HS, Trazadone 200 mg HS (7) Restless leg syndrome: Continue Mirapex (8) Hypothyroidism: Continue levothyroxine (9) Chronic pain: Chronic back pain secondary to history of back surgeries On Fentanyl patches chronically (10) DVT prophylaxis: Lovenox sq CODE STATUS Full Code Disposition Follow up with your primary care provider Dr. Spann on 08/26@ 11:00 Total Time Total Time Spent Total Time Spent (In Minutes): 35 minutes Total Time Includes: Examination of the Patient, Discharge Planning, Medication Reconciliation, Communication With Other Providers and Other Discharge Plan Discharge Items Patient Disposition: Home - Self-Care Reason For Visit: RIGHT LOWER EXTREMITY CELLULITIS, HYPOXIA Discharge Diagnosis: Cellulitis of right lower extremity Hypoxia Bilateral lower extremity edema: Hypertension Activity: Resume your previous activity Activity Comment: As tolerated Non-emergency contact: Primary Care Provider Call non-emergency contact if: you have any medication questions and your t emperature is above 101 Follow-up/Referrals: Charanjit Spann MD [Primary Care Provider] - Diet: Regular Addtl Attending Provider Instructions: Follow up with your primary care provider Dr. Spann on 08/26 @ 11:00 AM Continue follow up with your provider for outpatient sleep study Do not drive and operate any machine while on fentanyl patch Pending Studies at Discharge: No Stand-Alone Forms: [facility], Smoking Cessation Medications and DC Order Prescriptions: New cephalexin 500 mg Capsule 500 mg PO BIDM 7 Days Qty: 14 RF: 0 Continued nitroglycerin [Nitrostat] 0.3 mg Tablet, Sublingual 0.3 mg sublingual UD PRN (Reason: Chest Pain) RF: 0 aspirin [Aspir-81] 81 mg Tablet,Delayed Release (Dr/Ec) 81 mg PO QAM RF: 0 magnesium oxide 400 mg (241.3 mg magnesium) Tablet 400 mg PO BID RF: 0 nystatin 100,000 unit/gram Powder 1 applic TOPICAL TID PRN (Reason: BREAKOUTS) RF: 0 Calcium 600 + D(3) 600 mg calcium- 200 unit Capsule 1 cap PO BID RF: 0 olopatadine 0.2 % Drops 1 drp OPHTHALMIC (EYE) QAM RF: 0 epinephrine 0.3 mg/0.3 mL Syringe 0.3 mg IM Q3H PRN (Reason: Allergic Reaction) RF: 0 Ocuvite Adult 50 Plus 250-5-1 mg Capsule 1 cap PO QAM RF: 0 pantoprazole 40 mg tablet,delayed release (DR/EC) 40 mg PO QAM RF: 0 mirtazapine 7.5 mg tablet 7.5 mg PO HS RF: 0 Latuda 20 mg Tablet 20 mg PO QPM RF: 0 hydrochlorothiazide 25 mg Tablet 25 mg PO QAM 30 Days Qty: 30 RF: 0 carvedilol 6.25 mg Tablet 6.25 mg PO BID 30 Days Qty: 60 RF: 0 atorvastatin [Lipitor] 40 mg Tablet 40 mg PO QAM RF: 0 levothyroxine 75 mcg Tablet 75 mcg PO QAM RF: 0 buspirone 10 mg Tablet 10 mg PO TID RF: 0 tizanidine [Zanaflex] 4 mg Capsule 4 mg PO BID PRN (Reason: Muscle Spasm) RF: 0 tramadol [Ultram] 50 mg Tablet 50 mg PO Q8 PRN (Reason: severe pain) RF: 0 pramipexole [Mirapex] 0.125 mg Tablet 0.125 mg PO HS PRN (Reason: Restless Leg(S)) RF: 0 potassium chloride [Klor-Con M20] 20 mEq tablet,ER particles/crystals 20 meq PO BID RF: 0 prochlorperazine maleate 5 mg tablet 10 mg PO BID PRN (Reason: Nausea) RF: 0 polyethylene glycol 3350 17 gram Powder In Packet 17 g PO DAILY PRN (Reason: Constipation) RF: 0 ondansetron HCl [Zofran] 8 mg Tablet 8 mg PO Q6H PRN (Reason: Nausea) RF: 0 promethazine 25 mg Tablet 25 mg PO Q6H PRN (Reason: Nausea) RF: 0 fentanyl [Duragesic] 25 mcg/hr patch 72 hour 1 patch topical [id number] RF: 0 fentanyl [Duragesic] 12 mcg/hr patch 72 hour 1 patch topical [id number] RF: 0 hydroxyzine HCl 25 mg tablet 100 mg PO HS RF: 0 amlodipine [Norvasc] 5 mg tablet 10 mg PO QAM RF: 0 trazodone 100 mg tablet 200 mg PO HS RF: 0 Discharge Orders: Discharge Order (Routine); Ordered 08/23/19 Ordered By: Carissa Pineda/Other Patient Handouts: Cellulitis Dc Admission Data Admit Date/Time: 08/21/19 19:24 Attending Provider: Carissa Trevino Admit Provider: Stan Carreno Primary Care Provider: Charanjit Spann Other Providers: Stan Carreno ; Soco Nguyen I. Other Interventions: Discharge Summary Assessment (RN) Last Done: 08/24/19 10:14
== END 2019-08-24 11:42 | disposition home or self-care (01) | DRG 603 ==
LOC: ED 13:52 → SUATTDRO 19:24 → 3W 19:24

== ENCOUNTER 2019-11-18 13:18 | Inpatient (IN) ==
[2019-11-18] MEDS ORDERED: HYDROmorphone INJ 0.5 MG/0.5 ML SYR IV STA ×3 (14:30→18:59)
[2019-11-18 15:49] LABS: Basophils # (auto) 0.03 K/uL (0-0.2); Basophils % (auto) 0.4 %; Eosinophils # (auto) 0.32 K/uL (0-0.5); Eosinophils % (auto) 3.8 %; Hematocrit (blood only) 42.1 % (37-47); Hemoglobin 14.4 g/dL (12.0-16.0); Immature Granulocytes # (auto) 0.01 K/uL (0.00-0.02); Immature Granulocytes % (auto) 0.1 %; Lymphocytes # (auto) 2.54 K/uL (1.2-3.4); Lymphocytes % (auto) 30.1 %; Mean Corpuscular Hemoglobin 28.4 pg (25-34); Mean Corpuscular Hgb Conc 34.2 g/dL (32-36); Mean Platelet Volume 9.1 fL (7.4-10.4); Monocytes % (auto) 11.8 %; Neutrophils # (auto) 4.55 K/uL (1.4-6.5); Neutrophils % (auto) 53.8 %; Platelet Count 331 K/uL (130-400); RDW Coefficient of Variation 16.7 % (11.5-14.5); RDW Standard Deviation 50.3 fL (36.4-46.3); Red Blood Count 5.07 M/uL (4.2-5.4); White Blood Count 8.45 K/uL (4.8-10.8)
[2019-11-18 16:05] LABS: Albumin Level 3.9 gm/dl (3.4-5.0); BUN Creatinine Ratio 18.1 (10-20); Calcium 9.5 mg/dl (8.5-10.1); Creatinine Clr Calc Pharmacy 70.6 ml/min; Est GFR (African American) 88.6; Est GFR (Non-African American) 76.5; Potassium 3.4 mmol/L (3.5-5.1)
[2019-11-18 16:08] LABS: Bilirubin,Total 0.6 mg/dl (0.2-1); Globulin 4.1 gm/dl (2.5-4.0)
--- NOTE | 2019-11-18 16:35 | CT Scan Report ---
ABDOMEN AND PELVIS CT WITHOUT CONTRAST CT DOSE: 677.63 mGy.cm HISTORY: Acute right flank and right hip pain rt flank pain and into hip TECHNIQUE: Multiaxial CT images of the abdomen and pelvis were performed without contrast. A dose lo wering technique was utilized adhering to the principles of ALARA. COMPARISON STUDY: CT abdomen and pelvis 07/30/2019 FINDINGS: Chronic left hemidiaphragmatic elevation with left basilar atelectasis/scarring. Pleural calcificatio ns at the level of the left lung base are also noted. There is no pneumatosis or pneumoperitoneum. Ca rdiomegaly. Limited evaluation of the solid abdominal organs without the use of IV contrast. Within t he limitations of the exam the spleen, pancreas, gallbladder and adrenal glands are unremarkable. [place] er is also unremarkable. 4 mm nonobstructing calculus of the superior pole left kidney. No ureteral calculi or obstructive uro ector identified. The ureters appear normal. Phleboliths are noted within the pelvis. Urinary bladder , uterus and adnexa are unremarkable. Calcified plaque of the aorta without aneurysm. No adenopathy. Small hiatal hernia with mild wall thickening of the distal esophagus redemonstrated. No small bowel obstruction. Colonic diverticulosis without acute diverticulitis. Terminal ileum is unremarkable. Aleisha endectomy. No ascites or mesenteric inflammation. Soft tissue calcifications of the upper right thigh . Metallic wires noted about the mid lumbar spine. Severe degenerative changes of the SI joints with erosions. Multilevel degenerative bony fusion and lumbar levoscoliosis. No acute fracture identified. Evidence of prior hardware removal of the lumbar spine. No acute fracture or dislocation identified, specifically the right hip appears intact. IMPRESSION: 1. No bowel obstruction or bowel wall thickening. Prior appendectomy. 2. Colonic diverticulosis without acute diverticulitis. 3. Nonobstructing left nephrolithiasis. No ureteral calculi or obstructive uropathy. 4. Small hiatal hernia with mild wall thickening of the distal esophagus. 5. Bilateral sacroiliitis. 6. Additional findings as above. ACT 112: Negative or not required by law. The above report was generated using voice recognition software. It may contain grammatical, syntax o r spelling errors. Electronically signed by: Ariel López M.D. 11/18/2019 4:34 PM
--- NOTE | 2019-11-18 17:25 | Ultrasound Report ---
US venous doppler LE RT HISTORY: 69 years-old Female eval for DVT acute pain and swelling of the right lower extremity COMPARISON: Duplex venous Doppler study 08/21/2019 TECHNIQUE: Multiple real-time sonographic images of the right lower extremity deep venous structures were obtained assessing grayscale appearance, color and spectral flow FINDINGS: Flow, compressibility, phasicity and augmentation of the right lower extremity deep venous structures . IMPRESSION: No sonographic evidence of deep venous thrombosis. ACT 112: Negative or not required by law. The above report was generated using voice recognition software. It may contain grammatical, syntax o r spelling errors. Electronically signed by: Ariel López M.D. 11/18/2019 5:24 PM
[2019-11-18 19:01] LABS: Appearance Urine Clear (Clear); Bilirubin Urine Negative (Negative); Blood Urine Negative (Negative); Color Urine Yellow; Glucose Urine UA Negative (Negative); Ketones Urine Negative (Negative); Leukocyte Esterase Urine Negative (Negative); Nitrite Urine Negative (Negative); Protein Urine Negative (Negative); Specific Gravity Urine 1.017 (1.000-1.030); Urobilinogen Urine Negative (Negative); pH Urine 6.5 (4.5-7.5)
--- NOTE | 2019-11-18 20:06 | Emergency Department Note ---
Entered by Olivia Mcdaniel acting as a scribe for Jason Vallejo MD History of Present Illness General Chief complaint: Leg Injury/Pain Time Seen by Provider: 11/18/19 14:23 Source: patient Mode of arrival: wheelchair Limitations: no limitations History of Present Illness Onset (ago): day(s) 2 Location: back (low back) and hip (right hip) Radiation: non-radiation Pain Consistency: + constant Maximum Pain Intensity: 8 Current Pain Intensity: 8 Relieved By: + none Exacerbated By: + movement Associated symptoms: + other (-abdominal pain, -hematuria or dysuria); no chest pain, no fever/chills, no nausea/vomiting and no shortness of breath Treatments prior to arrival: other (Fentanyl patch) The patient is a 69 year old female who presents to the ED with complaints of right hip and low back pain. She states last week she fractured her right foot and was placed in a walking boot by [facility]. She states after being placed in the boot, she was unable to walk because of pain in her right hip and low back. She rates her discomfort as an 8/10 in severity. Movement worsens her pain. She denies any falls. She denies any numbness or weakness in the legs. She denies any recent fevers or chills or saddle anesthesia. She denies any chest pain, shortness of breath, nausea, vomiting or abdominal pain. The patient states she is on a fentanyl patch for her history of back pain. She notes her current pain feels like her typical back pain. She denies any recent hematuria or dysuria. She does have a history of a DVT in her left leg. She is not currently on blood thinners. Home Medications Home Medications Medication Instructions Recorded Confirmed Type atorvastatin [Lipitor] 40 mg PO QAM 12/13/18 11/18/19 History buspirone 10 mg PO TID 12/13/18 11/18/19 History levothyroxine 75 mcg PO QAM 12/13/18 11/18/19 History tizanidine [Zanaflex] 4 mg PO BID PRN 12/13/18 11/18/19 History pramipexole [Mirapex] 0.125 mg PO HS PRN 01/25/19 11/18/19 History tramadol [Ultram] 50 mg PO Q8 PRN 01/25/19 11/18/19 History potassium chloride [Klor-Con M20] 20 meq PO BID 03/30/19 11/18/19 History ondansetron HCl [Zofran] 8 mg PO Q6H PRN 05/12/19 11/18/19 History polyethylene glycol 3350 17 g PO DAILY PRN 05/12/19 11/18/19 History prochlorperazine maleate 10 mg PO BID PRN 05/12/19 11/18/19 History promethazine 25 mg PO Q6H PRN 05/12/19 11/18/19 History Calcium 600 + D(3) 1 cap PO BID 05/23/19 11/18/19 History Ocuvite Adult 50 Plus 1 cap PO QAM 05/23/19 11/18/19 History aspirin [Aspir-81] 81 mg PO QAM 05/23/19 11/18/19 History epinephrine 0.3 mg IM Q3H PRN 05/23/19 11/18/19 History magnesium oxide 400 mg PO BID 05/23/19 11/18/19 History nitroglycerin [Nitrostat] 0.3 mg SUBLINGUAL UD PRN 05/23/19 11/18/19 History nystatin 1 applic TOPICAL TID PRN 05/23/19 11/18/19 History olopatadine 1 drp OPB QAM 05/23/19 11/18/19 History fentanyl [Duragesic] 1 patch TOPICAL [id number] 05/26/19 11/18/19 History fentanyl [Duragesic] 1 patch TOPICAL [id number] 05/26/19 11/18/19 History mirtazapine 7.5 mg PO HS 07/03/19 11/18/19 History pantoprazole 40 mg PO QAM 07/03/19 11/18/19 History Latuda 20 mg PO QPM 08/04/19 11/18/19 History amlodipine [Norvasc] 10 mg PO QAM 08/21/19 11/18/19 History hydroxyzine HCl 100 mg PO HS 08/21/19 11/18/19 History trazodone 200 mg PO HS 08/21/19 11/18/19 History acetaminophen [Tylenol Extra 500 mg PO Q6H PRN 11/18/19 11/18/19 History Strength] Allergies Allergy/AdvReac Type Severity Reaction Status Date / Time latex Allergy Intermediate Rash Verified 11/18/19 14:54 nickel Allergy Intermediate SEVERE Verified 11/18/19 14:54 DERMATITIS NSAIDS (Non-Steroidal Allergy Intermediate HX OF Verified 11/18/19 14:54 Anti-Inflamma BLEEDING ULCERS-TO AVOID aspirin AdvReac Intermediate bleeding Verified 11/18/19 14:54 ulcers Past Med/Surg History Medical History Anemia (Chronic) HX OF Anxiety (Chronic) CAD (coronary artery disease) (Chronic) 2017-[facility] to LAD Cervical spondylolysis (Chronic) Chronic pain (Chronic) Colitis (Chronic) Cyclical vomiting (Chronic) Deep vein thrombosis (Chronic) 4 YEARS AGO Degenerative disc disease (Chronic) Depression (Chronic) Dyslipidemia (Chronic) Hyperlipidemia (Chronic) Hypertension (Chronic) Hypothyroidism (Chronic) Migraine (Chronic) Mood disorder (Chronic) Myocardial Infarction (Chronic) 2 YEARS AGO Osteoarthritis (Chronic) Post traumatic stress disorder (Chronic) Pulmonary embolism (Chronic) 2 YEARS OLD (UNSURE OF REASON) Restless leg syndrome (Chronic) Scoliosis (Chronic) Surgical History Fusion of spine (Chronic) LUMBAR H/O ovarian cystectomy (Chronic) H/O repair of right rotator cuff (Chronic) H/O spinal fusion (Chronic) "1st surgery in [place], then multiple surgeries Dr. Catherine at [facility]" History of adenoidectomy (Chronic) History of anesthesia reaction (Chronic) WOKE UP IN MIDDLE OF SPINAL SURGERIES History of appendectomy (Chronic) History of cataract surgery (Chronic) LEFT AND RIGHT History of heart artery stent (Chronic) 2017-1 STENT PLACED AT [facility] (DR. DAVILA) History of laminectomy (Chronic) LUMBAR History of tonsillectomy (Chronic) History of vascular access device (Chronic) PORT LEFT UPPER CHEST-IN PLACE Ovarian cyst (Chronic) X 2 Family History Mother Hypertension Father Hypertension Social History Preferred Language: Icelandic Communication Ability: Effective Perishable Fruit Inspector Required: No Beliefs That Will Affect Care: None marital status: Single Current Living Situation: Alone current occupational status: retired Other Information That Helps Us Care for You: No Feels Safe at Home: Yes Safety Concerns: Feels Safe At This Time Smoking Status: Never smoker Second Hand Exposure: No ; Hx Alcohol Use: No Hx Substance Use: No Review of Systems See HPI for pertinent positives & negatives. and A total of 10 systems reviewed and were otherwise negative Physical Exam Vital Signs Vital Signs - 24 hr 11/18/19 13:37 11/18/19 14:19 11/18/19 15:18 Temperature 36.7 C Temperature Source Oral Pulse Rate 78 Pulse Rate [Right Finger] 70 75 Pulse Rhythm [Right Finger] Pulse Strength [Right Finger] Respiratory Rate 18 18 16 Respiratory Effort / Characteristics Non-Labored Spontaneous Respiratory Depth Normal Respiratory Pattern Blood Pressure 122/74 Blood Pressure [Right Arm] 131/72 117/69 Blood Pressure Mean 90 Blood Pressure Mean [Right Arm] 91 85 Blood Pressure Position [Right Arm] Pulse Oximetry 92 92 92 Oxygen Delivery Method Room Air Room Air Room Air Sepsis Recent Fever Within 48 Hours No Sepsis New/Unexplained Change in Mental Status No Sepsis Action Taken by Nursing No Action Required 11/18/19 16:37 11/18/19 17:32 11/18/19 17:35 Temperature Temperature Source Pulse Rate Pulse Rate [Right Finger] 75 73 79 Pulse Rhythm [Right Finger] Regular Pulse Strength [Right Finger] Normal Respiratory Rate 16 22 20 Respiratory Effort / Characteristics Non-Labored Spontaneous Respiratory Depth Normal Respiratory Pattern Blood Pressure Blood Pressure [Right Arm] 120/76 131/77 131/77 Blood Pressure Mean Blood Pressure Mean [Right Arm] 90 95 95 Blood Pressure Position [Right Arm] Lying Pulse Oximetry 92 92 92 Oxygen Delivery Method Room Air Room Air Room Air Nasal Cannula Sepsis Recent Fever Within 48 Hours Sepsis New/Unexplained Change in Mental Status Sepsis Action Taken by Nursing 11/18/19 18:22 11/18/19 19:53 Temperature Temperature Source Pulse Rate Pulse Rate [Right Finger] 81 73 Pulse Rhythm [Right Finger] Pulse Strength [Right Finger] Respiratory Rate 19 12 Respiratory Effort / Characteristics Non-Labored Spontaneous Respiratory Depth Normal Respiratory Pattern Regular Blood Pressure Blood Pressure [Right Arm] 128/85 130/81 Blood Pressure Mean Blood Pressure Mean [Right Arm] 99 97 Blood Pressure Position [Right Arm] Pulse Oximetry 93 93 Oxygen Delivery Method Room Air Room Air Sepsis Recent Fever Within 48 Hours Sepsis New/Unexplained Change in Mental Status Sepsis Action Taken by Nursing General: Non-ill appearing older female in no acute distress. HEENT: Normal cephalic atraumatic. Pupils are equal round and reactive to light. Extraocular movements are intact. Oropharynx is pink with moist mucous membranes. No swelling of the mouth lips or tongue. Neck: Supple with a midline trachea. No meningeal signs or stiffness, no JVD or bruits. No Stridor. Chest: Clear to auscultation bilaterally. No wheezes or rhonchi. No increased work of breathing. Heart: regular rate and rhythm. Abdomen: Soft nontender, nondistended without rebound guarding or rigidity. Extremities: No cyanosis clubbing or edema. No calf tenderness or asymmetry Spine/Back. Tender to palpation in the lower back and right flank, pain with movement of the right leg. No CVA tenderness Skin: Good turgor without rashes. Neurologic exam: Cranial nerves two through 12 are intact. Motor and sensation are intact and symmetrical throughout. Course Course 1434: The patient was evaluated in room B3B and a complete history and physical were performed. 1630: I reevaluated the patient. She is resting comfortably. 1899: I reevaluated the patient. She does not feel she is safe to go home. I have ordered more pain medicine and will consult with the hospital medicine team. 1903: I discussed the patients case with NUPUR Vega, [facility] Hospitalist. The patient will be further evaluated. Administered Medications Discontinued Medications Hydromorphone HCl (Dilaudid) 0.5 mg IV NOW STA Stop: 11/18/19 14:31 Last Admin: 11/18/19 15:40 Dose: 0.5 mg Documented by: [id number] Hydromorphone HCl (Dilaudid) 0.5 mg IV NOW STA Stop: 11/18/19 18:36 Last Admin: 11/18/19 18:40 Dose: 0.5 mg Documented by: [id number] Hydromorphone HCl (Dilaudid) 0.5 mg IV NOW STA Stop: 11/18/19 19:00 Last Admin: 11/18/19 19:54 Dose: 0.5 mg Documented by: [id number] Medical Decision Making Differential Diagnosis The differential diagnoses considered include DVT, musculoskeletal, trauma, kidney stone, infection, electrolyte or metabolic abnormality. Medical Records Attestation: I reviewed the patient's medical records. Home Medications Current Medication List: was personally reviewed by me Laboratory Data Attestation: I reviewed the patient's lab results. Result diagrams: 11/18/19 15:30 11/18/19 15:30 Lab Results 11/18/19 11/18/19 11/18/19 Range/Units 15:30 15:30 15:30 WBC 8.45 (4.8-10.8) K/uL RBC 5.07 (4.2-5.4) M/uL Hgb 14.4 (12.0-16.0) g/dL Hct 42.1 (37-47) % MCV 83.0 (80-100) fL MCH 28.4 (25-34) pg MCHC 34.2 (32-36) g/dL RDW Std Deviation 50.3 H (36.4-46.3) fL RDW Coeff of Arden 16.7 H (11.5-14.5) % Plt Count 331 (130-400) K/uL MPV 9.1 (7.4-10.4) fL Immature Gran % (Auto) 0.1 % Neut % (Auto) 53.8 % Lymph % (Auto) 30.1 % Ramsey % (Auto) 11.8 % Eos % (Auto) 3.8 % Baso % (Auto) 0.4 % Immature Gran # (Auto) 0.01 (0.00-0.02) K/uL Neut # (Auto) 4.55 (1.4-6.5) K/uL Lymph # (Auto) 2.54 (1.2-3.4) K/uL Ramsey # (Auto) 1.00 H (0.11-0.59) K/uL Eos # (Auto) 0.32 (0-0.5) K/uL Baso # (Auto) 0.03 (0-0.2) K/uL Sodium 138 (136-145) mmol/L Potassium 3.4 L (3.5-5.1) mmol/L Chloride 104 (98-107) mmol/L Carbon Dioxide 29 (21-32) mmol/L Anion Gap 5.0 (3-11) BUN 14 (7-18) mg/dl Creatinine 0.78 (0.6-1.2) mg/dl Est Cr Clr Drug Dosing 70.6 ml/min Est GFR ( Amer) 88.6 Est GFR (Non-Af Amer) 76.5 BUN/Creatinine Ratio 18.1 (10-20) Glucose 105 H (70-99) mg/dl Calcium 9.5 (8.5-10.1) mg/dl Magnesium 1.9 (1.8-2.4) mg/dl Total Bilirubin 0.6 (0.2-1) mg/dl AST 18 (15-37) U/L ALT 25 (12-78) U/L Alkaline Phosphatase 94 (45-117) U/L Total Protein 8.0 (6.4-8.2) gm/dl Albumin 3.9 (3.4-5.0) gm/dl Globulin 4.1 H (2.5-4.0) gm/dl Albumin/Globulin Ratio 1.0 (0.9-2) Lipase 57 L (73-393) U/L Urine Color Urine Appearance (Clear) Urine pH (4.5-7.5) Ur Specific Pierpont (1.000-1.030) Urine Protein (Negative) Urine Glucose (UA) (Negative) Urine Ketones (Negative) Urine Blood (Negative) Urine Nitrite (Negative) Urine Bilirubin (Negative) Urine Urobilinogen (Negative) Ur Leukocyte Esterase (Negative) Hepatitis C Ab Screen (Neg) 11/18/19 11/18/19 Range/Units 15:31 18:30 WBC (4.8-10.8) K/uL RBC (4.2-5.4) M/uL Hgb (12.0-16.0) g/dL Hct (37-47) % MCV (80-100) fL MCH (25-34) pg MCHC (32-36) g/dL RDW Std Deviation (36.4-46.3) fL RDW Coeff of Arden (11.5-14.5) % Plt Count (130-400) K/uL MPV (7.4-10.4) fL Immature Gran % (Auto) % Neut % (Auto) % Lymph % (Auto) % Ramsey % (Auto) % Eos % (Auto) % Baso % (Auto) % Immature Gran # (Auto) (0.00-0.02) K/uL Neut # (Auto) (1.4-6.5) K/uL Lymph # (Auto) (1.2-3.4) K/uL Ramsey # (Auto) (0.11-0.59) K/uL Eos # (Auto) (0-0.5) K/uL Baso # (Auto) (0-0.2) K/uL Sodium (136-145) mmol/L Potassium (3.5-5.1) mmol/L Chloride (98-107) mmol/L Carbon Dioxide (21-32) mmol/L Anion Gap (3-11) BUN (7-18) mg/dl Creatinine (0.6-1.2) mg/dl Est Cr Clr Drug Dosing ml/min Est GFR ( Amer) Est GFR (Non-Af Amer) BUN/Creatinine Ratio (10-20) Glucose (70-99) mg/dl Calcium (8.5-10.1) mg/dl Magnesium (1.8-2.4) mg/dl Total Bilirubin (0.2-1) mg/dl AST (15-37) U/L ALT (12-78) U/L Alkaline Phosphatase (45-117) U/L Total Protein (6.4-8.2) gm/dl Albumin (3.4-5.0) gm/dl Globulin (2.5-4.0) gm/dl Albumin/Globulin Ratio (0.9-2) Lipase (73-393) U/L Urine Color Yellow Urine Appearance Clear (Clear) Urine pH 6.5 (4.5-7.5) Ur Specific [place] 1.017 (1.000-1.030) Urine Protein Negative (Negative) Urine Glucose (UA) Negative (Negative) Urine Ketones Negative (Negative) Urine Blood Negative (Negative) Urine Nitrite Negative (Negative) Urine Bilirubin Negative (Negative) Urine Urobilinogen Negative (Negative) Ur Leukocyte Esterase Negative (Negative) Hepatitis C Ab Screen Neg (Neg) Imaging Data Radiologist's Impression: Radiology results as stated below per my review and the radiologist's interpretation: ABDOMEN AND PELVIS CT WITHOUT CONTRAST CT DOSE: 677.63 mGy.cm HISTORY: Acute right flank and right hip pain rt flank pain and into hip TECHNIQUE: Multiaxial CT images of the abdomen and pelvis were performed without contrast. A dose lowering technique was utilized adhering to the principles of ALARA. COMPARISON STUDY: CT abdomen and pelvis 07/30/2019 FINDINGS: Chronic left hemidiaphragmatic elevation with left basilar atelectasis/scarring. Pleural calcifications at the level of the left lung base are also noted. There is no pneumatosis or pneumoperitoneum. Cardiomegaly. Limited evaluation of the solid abdominal organs without the use of IV contrast. Within the limitations of the exam the spleen, pancreas, gallbladder and adrenal glands are unremarkable. Liver is also unremarkable. 4 mm nonobstructing calculus of the superior pole left kidney. No ureteral calculi or obstructive uropathy identified. The ureters appear normal. Phleboliths are noted within the pelvis. Urinary bladder, uterus and adnexa are unremarkable. Calcified plaque of the aorta without aneurysm. No adenopathy. Small hiatal hernia with mild wall thickening of the distal esophagus redemonstrated. No small bowel obstruction. Colonic diverticulosis without acute diverticulitis. Terminal ileum is unremarkable. Appendectomy. No ascites or mese nteric inflammation. Soft tissue calcifications of the upper right thigh. Metallic wires noted about the mid lumbar spine. Severe degenerative changes of the SI joints with erosions. Multilevel degenerative bony fusion and lumbar levoscoliosis. No acute fracture identified. Evidence of prior hardware removal of the lumbar spine. No acute fracture or dislocation identified, specifically the right hip appears intact. IMPRESSION: 1. No bowel obstruction or bowel wall thickening. Prior appendectomy. 2. Colonic diverticulosis without acute diverticulitis. 3. Nonobstructing left nephrolithiasis. No ureteral calculi or obstructive uropathy. 4. Small hiatal hernia with mild wall thickening of the distal esophagus. 5. Bilateral sacroiliitis. 6. Additional findings as above. ACT 112: Negative or not required by law. The above report was generated using voice recognition software. It may contain grammatical, syntax or spelling errors. Electronically signed by: Ariel López M.D. 11/18/2019 4:34 PM US venous doppler LE RT HISTORY: 69 years-old Female eval for DVT acute pain and swelling of the right lower extremity COMPARISON: Duplex venous Doppler study 08/21/2019 TECHNIQUE: Multiple real-time sonographic images of the right lower extremity deep venous structures were obtained assessing grayscale appearance, color and spectral flow FINDINGS: Flow, compressibility, phasicity and augmentation of the right lower extremity deep venous structures. IMPRESSION: No sonographic evidence of deep venous thrombosis. ACT 112: Negative or not required by law. The above report was generated using voice recognition software. It may contain grammatical, syntax or spelling errors. Electronically signed by: Ariel López M.D. 11/18/2019 5:24 PM MDM Narrative This patient comes in as described above. she is having pain in her right hip and back. She tells me she broke her right foot and was in a boot for 2 days but the boot was causing her worse in his symptoms so she stopped it. The foot is not causing any problems. She said when she broke her foot she did not fall so there is no injury to the back or hip. She has chronic back problems. She has no new numbness weakness. no change in bowel or bladder function. No fever or chills. IV access was established and she was given Dilaudid 0.5 mg IV. I did a CAT scan of her abdomen it was unremarkable. Ultrasound the right leg shows no DVT. She has no acute electrolyte or metabolic abnormality. she has nothing that shows any definite UTI. She did receive additional Dilaudid IV. she has a difficult time walking she tells me she lives by herself and does not feel she safe to go home. I did have her case briefer talk to her the patient does not feel that she is safe to be at home and does not feel she can participate in rehab yet. I did consult [facility] to admit/observe her for further inpatient treatment and evaluation for her back and hip pain. Impression & Plan Low back pain, Hip pain, right, Ambulatory dysfunction, Intractable back pain Discharge Plan Visit Data *Final* Discharge Date/Time: 11/18/19 21:07 Chief Complaint: Leg Injury/Pain ED Provider: Jason Vallejo Discharge Problem: Low back pain, Hip pain, right, Ambulatory dysfunction, Intractable back pain Patient Disposition: Admitted As Inpatient Discharge Instructions Interventions: ED Discharge Assessment Last Done: 11/18/19 21:07 Discharge Problem: Low back pain Qualifiers: Chronicity: acute Back pain laterality: right Sciatica presence: with sciatica Sciatica laterality: sciatica of right side Qualified Code(s): M54.41 - Lumbago with sciatica, right side The scribe's documentation has been prepared under my direction and personally reviewed by me in its entirety. I confirm that the note above accurately reflect s all work, treatment, procedures, and medical decision making performed by me.
[2019-11-18] MEDS ORDERED: POTASSIUM CHLORIDE 20 MEQ TABCR PO STA (20:09)
[2019-11-18] MEDS ORDERED: TRAMADOL HCL 50 MG TABLET PO PRN (20:09)
--- NOTE | 2019-11-18 20:41 | History & Physical Report ---
Date of Service November 18, 2019 Assessment & Plan (1) Intractable back pain: Secondary to fall due to gait instability after orthotic device use for recent right ankle sprain CAD sp stenting HTN, stable hyperlipidemia on statin Rx PTSD/mood disorder, at baseline post polio syndrome/scoliosis as per records chronic pain on Fentanyl patch prediabetes as per records, recent hemoglobin A1c of 6.22 June 2019 OBS GMF Analgesia, Lidoderm patch trial for radiculopathy symptoms PT OT eval Update hemoglobin A1c DVT prophylaxis. Lovenox subcu Full code History of Present Illness Chief Complaint: Intractable back pain Primary Care Provider: Charanjit Spann MD History obtained from patient and records. Medical history significant for CAD sp stenting, HTN, hyperlipidemia, PTSD/mood disorder, post polio syndrome/scoliosis as per records, chronic pain on Fentanyl patch, prediabetes as per records, migraine. Recent confinement August 2019 for cellulitis right lower extremity. Last week, patient caught her foot trying to get out of a car. Subsequent right foot/ankle swelling. No R ankle/tibia/fibula fractures on outpatient imaging. Right foot x-ray showed soft tissue swelling. Seen by [facility] outpatient 3 days ago. Impression was right lateral ankle sprain. Medial malleolus fracture felt to be chronic and not from acute injury as per note. Walking boot for right foot recommended. Gait instability noted today after patient tried using right foot boot causing patient to fall down landing on her bottom. Achy right hip/low back pain. No head trauma. No chest pain, no S OB. No unusual urinary incontinence. Intractable back pain at the ER. 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 Allergies Allergy/AdvReac Type Severity Reaction Status Date / Time latex Allergy Intermediate Rash Verified 11/18/19 14:54 nickel Allergy Intermediate SEVERE Verified 11/18/19 14:54 DERMATITIS NSAIDS (Non-Steroidal Allergy Intermediate HX OF Verified 11/18/19 14:54 Anti-Inflamma BLEEDING ULCERS-TO AVOID aspirin AdvReac Intermediate bleeding Verified 11/18/19 14:54 ulcers Home Medications Home Medications Medication Instructions Recorded Confirmed Type atorvastatin [Lipitor] 40 mg PO QAM 12/13/18 11/18/19 History buspirone 10 mg PO TID 12/13/18 11/18/19 History levothyroxine 75 mcg PO QAM 12/13/18 11/18/19 History tizanidine [Zanaflex] 4 mg PO BID PRN 12/13/18 11/18/19 History pramipexole [Mirapex] 0.125 mg PO HS PRN 01/25/19 11/18/19 History tramadol [Ultram] 50 mg PO Q8 PRN 01/25/19 11/18/19 History potassium chloride [Klor-Con M20] 20 meq PO BID 03/30/19 11/18/19 History ondansetron HCl [Zofran] 8 mg PO Q6H PRN 05/12/19 11/18/19 History polyethylene glycol 3350 17 g PO DAILY PRN 05/12/19 11/18/19 History prochlorperazine maleate 10 mg PO BID PRN 05/12/19 11/18/19 History promethazine 25 mg PO Q6H PRN 05/12/19 11/18/19 History Calcium 600 + D(3) 1 cap PO BID 05/23/19 11/18/19 History Ocuvite Adult 50 Plus 1 cap PO QAM 05/23/19 11/18/19 History aspirin [Aspir-81] 81 mg PO QAM 05/23/19 11/18/19 History epinephrine 0.3 mg IM Q3H PRN 05/23/19 11/18/19 History magnesium oxide 400 mg PO BID 05/23/19 11/18/19 History nitroglycerin [Nitrostat] 0.3 mg SUBLINGUAL UD PRN 05/23/19 11/18/19 History nystatin 1 applic TOPICAL TID PRN 05/23/19 11/18/19 History olopatadine 1 drp OPB QAM 05/23/19 11/18/19 History fentanyl [Duragesic] 1 patch TOPICAL [id number] 05/26/19 11/18/19 History fentanyl [Duragesic] 1 patch TOPICAL [id number] 05/26/19 11/18/19 History mirtazapine 7.5 mg PO HS 07/03/19 11/18/19 History pantoprazole 40 mg PO QAM 07/03/19 11/18/19 History Latuda 20 mg PO QPM 08/04/19 11/18/19 History amlodipine [Norvasc] 10 mg PO QAM 08/21/19 11/18/19 History hydroxyzine HCl 100 mg PO HS 08/21/19 11/18/19 History trazodone 200 mg PO HS 08/21/19 11/18/19 History acetaminophen [Tylenol Extra 500 mg PO Q6H PRN 11/18/19 11/18/19 History Strength] Past Med/Surg History Medical History Anemia (Chronic) HX OF Anxiety (Chronic) CAD (coronary artery disease) (Chronic) 2017- to LAD Cervical spondylolysis (Chronic) Chronic pain (Chronic) Colitis (Chronic) Cyclical vomiting (Chronic) Deep vein thrombosis (Chronic) 4 YEARS AGO Degenerative disc disease (Chronic) Depression (Chronic) Dyslipidemia (Chronic) Hyperlipidemia (Chronic) Hypertension (Chronic) Hypothyroidism (Chronic) Migraine (Chronic) Mood disorder (Chronic) Myocardial Infarction (Chronic) 2 YEARS AGO Osteoarthritis (Chronic) Post traumatic stress disorder (Chronic) Pulmonary embolism (Chronic) 2 YEARS OLD (UNSURE OF REASON) Restless leg syndrome (Chronic) Scoliosis (Chronic) Surgical History Fusion of spine (Chronic) LUMBAR H/O ovarian cystectomy (Chronic) H/O repair of right rotator cuff (Chronic) H/O spinal fusion (Chronic) "1st surgery in [place], then multiple surgeries Dr. Catherine at [facility] [place]" History of adenoidectomy (Chronic) History of anesthesia reaction (Chronic) WOKE UP IN MIDDLE OF SPINAL SURGERIES History of appendectomy (Chronic) History of cataract surgery (Chronic) LEFT AND RIGHT History of heart artery stent (Chronic) 2017- STENT PLACED AT [facility] (DR. 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 Required: No Beliefs That Will Affect Care: None marital status: Single Current Living Situation: Alone current occupational status: retired Other Information That Helps Us Care for You: No Feels Safe at Home: Yes Safety Concerns: Feels Safe At This Time Smoking Status: Never smoker Second Hand Exposure: No ; Hx Alcohol Use: No Hx Substance Use: No Review of Systems Review of Systems: As per HPI, all 10 systems reviewed, all other ROS negative Physical Exam Physical Exam: GENERAL: uncomfortable, obese, no respiratory distress SKIN: Normal color, warm HEENT: pale palpebral conjunctivae, no ptosis, dry buccal mucosa NECK : Supple, short neck, no tenderness CHEST : Decreased breath sounds, no tenderness HEART : RRR, no obvious murmurs ABDOMEN: Some distention, nontender BACK : Low back tenderness, positive R straight leg raise test EXTREMITIES : Minimal LE swelling, minimal right foot swelling with tenderness, no other conspicuous deformities noted NEUROLOGIC : Coherent, no facial asymmetry, no other gross focality Results & Data Vital Signs (Past 12 Hours) Vital Signs Temp Pulse Pulse Resp BP BP Pulse Ox 11/18/19 19:53 73 12 130/81 93 11/18/19 18:22 81 19 128/85 93 11/18/19 17:35 79 20 131/77 92 11/18/19 17:32 73 22 131/77 92 11/18/19 16:37 75 16 120/76 92 11/18/19 15:18 75 16 117/69 92 11/18/19 14:19 70 18 131/72 92 11/18/19 13:37 36.7 C 78 18 122/74 92 Laboratory Results Laboratory Results WBC 8.45 K/uL (4.8-10.8) 11/18/19 15:30 RBC 5.07 M/uL (4.2-5.4) 11/18/19 15:30 Hgb 14.4 g/dL (12.0-16.0) 11/18/19 15:30 Hct 42.1 % (37-47) 11/18/19 15:30 MCV 83.0 fL (80-100) 11/18/19 15:30 MCH 28.4 pg (25-34) 11/18/19 15:30 MCHC 34.2 g/dL (32-36) 11/18/19 15:30 RDW Std Deviation 50.3 fL (36.4-46.3) H 11/18/19 15:30 RDW Coeff of [place] 16.7 % (11.5-14.5) H 11/18/19 15:30 Plt Count 331 K/uL (130-400) 11/18/19 15:30 MPV 9.1 fL (7.4-10.4) 11/18/19 15:30 Immature Gran % (Auto) 0.1 % 11/18/19 15:30 Neut % (Auto) 53.8 % 11/18/19 15:30 Lymph % (Auto) 30.1 % 11/18/19 15:30 [place] % (Auto) 11.8 % 11/18/19 15:30 Eos % (Auto) 3.8 % 11/18/19 15:30 Baso % (Auto) 0.4 % 11/18/19 15:30 Immature Gran # (Auto) 0.01 K/uL (0.00-0.02) 11/18/19 15:30 Neut # (Auto) 4.55 K/uL (1.4-6.5) 11/18/19 15:30 Lymph # (Auto) 2.54 K/uL (1.2-3.4) 11/18/19 15:30 [place] # (Auto) 1.00 K/uL (0.11-0.59) H 11/18/19 15:30 Eos # (Auto) 0.32 K/uL (0-0.5) 11/18/19 15:30 Baso # (Auto) 0.03 K/uL (0-0.2) 11/18/19 15:30 Sodium 138 mmol/L (136-145) 11/18/19 15:30 Potassium 3.4 mmol/L (3.5-5.1) L 11/18/19 15:30 Chloride 104 mmol/L (98-107) 11/18/19 15:30 Carbon Dioxide 29 mmol/L (21-32) 11/18/19 15:30 Anion Gap 5.0 (3-11) 11/18/19 15:30 BUN 14 mg/dl (7-18) 11/18/19 15:30 Creatinine 0.78 mg/dl (0.6-1.2) 11/18/19 15:30 Est Cr Clr Drug Dosing 70.6 ml/min 11/18/19 15:30 Est GFR ( Amer) 88.6 11/18/19 15:30 Est GFR (Non-Af Amer) 76.5 11/18/19 15:30 BUN/Creatinine Ratio 18.1 (10-20) 11/18/19 15:30 Glucose 105 mg/dl (70-99) H 11/18/19 15:30 Calcium 9.5 mg/dl (8.5-10.1) 11/18/19 15:30 Total Bilirubin 0.6 mg/dl (0.2-1) 11/18/19 15:30 AST 18 U/L (15-37) 11/18/19 15:30 ALT 25 U/L (12-78) 11/18/19 15:30 Alkaline Phosphatase 94 U/L (45-117) 11/18/19 15:30 Total Protein 8.0 gm/dl (6.4-8.2) 11/18/19 15:30 Albumin 3.9 gm/dl (3.4-5.0) 11/18/19 15:30 Globulin 4.1 gm/dl (2.5-4.0) H 11/18/19 15:30 Albumin/Globulin Ratio 1.0 (0.9-2) 11/18/19 15:30 Lipase 57 U/L (73-393) L 11/18/19 15:30 Urine Color Yellow 11/18/19 18:30 Urine Appearance Clear (Clear) 11/18/19 18:30 Urine pH 6.5 (4.5-7.5) 11/18/19 18:30 Ur Specific [place] 1.017 (1.000-1.030) 11/18/19 18:30 Urine Protein Negative (Negative) 11/18/19 18:30 Urine Glucose (UA) Negative (Negative) 11/18/19 18:30 Urine Ketones Negative (Negative) 11/18/19 18:30 Urine Blood Negative (Negative) 11/18/19 18:30 Urine Nitrite Negative (Negative) 11/18/19 18:30 Urine Bilirubin Negative (Negative) 11/18/19 18:30 Urine Urobilinogen Negative (Negative) 11/18/19 18:30 Ur Leukocyte Esterase Negative (Negative) 11/18/19 18:[address] of the pelvis: 1. No bowel obstruction or bowel wall thickening. Prior appendectomy. 2. Colonic diverticulosis without acute diverticulitis. 3. Nonobstructing left nephrolithiasis. No ureteral calculi or obstructive uropathy. 4. Small hiatal hernia with mild wall thickening of the distal esophagus. 5. Bilateral sacroiliitis. 6. Additional findings as above. RLE venous Dopplers: No sonographic evidence of deep venous thrombosis.
[2019-11-18] MEDS ORDERED: MoRPHine SULFATE 4 MG/ML 1 ML CARP\\VIAL IV PRN (20:48)
[2019-11-18] MEDS ORDERED: ACETAMINOPHEN 325 MG TAB PO PRN (20:48)
[2019-11-18] MEDS ORDERED: PROMETHAZINE HCL 12.5 MG in SODIUM CHLORIDE 0.9% 50 ML IV PRN (21:34)
[2019-11-18] MEDS ORDERED: PRAMIPEXOLE DIHYDROCHLO 0.25 MG TAB PO PRN (21:34)
[2019-11-18] MEDS ORDERED: TRAZODONE HCL 100 MG TAB PO SCH (21:34)
[2019-11-18] MEDS ORDERED: POLYETHYLENE (MIRALAX) 17 GM PACK PO PRN (21:34)
[2019-11-18] MEDS ORDERED: TIZANIDINE HCL 4 MG TABLET PO PRN (21:34)
[2019-11-18] MEDS ORDERED: fentaNYL 12 MCG/HR TDSY TD SCH (22:00)
[2019-11-18] MEDS ORDERED: fentaNYL 25 MCG/HR TDSY TD SCH (22:00)
[2019-11-18] MEDS ORDERED: NSS + 20MEQ KCL 20 MEQ/1,000 ML BAG IV ONE (22:00)
[2019-11-18] MEDS: CALCIUM 600MG + VIT D 400 IU TAB PO SCH (23:16)
[2019-11-18] MEDS: LIDOCAINE 5% 1 PATCH TD SCH (23:18)
[2019-11-18] MEDS: OXYCODONE HCL IR 5 MG TAB (IMMEDIATE RELEASE) PO PRN (23:25)
[2019-11-18] MEDS: MIRTAZAPINE TAB 15 MG TAB PO SCH (23:26)
[2019-11-19] MEDS: CHECK FENTANYL PATCH PLACEMENT SCH ×3 (00:08→17:41)
[2019-11-19] MEDS: OXYCODONE HCL IR 5 MG TAB (IMMEDIATE RELEASE) PO PRN (05:00)
[2019-11-19 06:34] LABS: Basophils # (auto) 0.04 K/uL (0-0.2); Basophils % (auto) 0.5 %; Eosinophils # (auto) 0.47 K/uL (0-0.5); Eosinophils % (auto) 6.4 %; Hematocrit (blood only) 41.3 % (37-47); Hemoglobin 13.7 g/dL (12.0-16.0); Lymphocytes # (auto) 2.83 K/uL (1.2-3.4); Lymphocytes % (auto) 38.2 %; Mean Corpuscular Hemoglobin 27.8 pg (25-34); Mean Corpuscular Hgb Conc 33.2 g/dL (32-36); Mean Corpuscular Volume 83.9 fL (80-100); Mean Platelet Volume 9.1 fL (7.4-10.4); Monocytes # (auto) 0.92 K/uL (0.11-0.59); Monocytes % (auto) 12.4 %; Neutrophils # (auto) 3.14 K/uL (1.4-6.5); Neutrophils % (auto) 42.5 %; Platelet Count 324 K/uL (130-400); RDW Coefficient of Variation 16.7 % (11.5-14.5); RDW Standard Deviation 51.1 fL (36.4-46.3); Red Blood Count 4.92 M/uL (4.2-5.4)
[2019-11-19] MEDS: LEVOTHYROXINE SODIUM 75 MCG TABLET PO SCH (06:34)
[2019-11-19 07:11] LABS: BUN Creatinine Ratio 18.1 (10-20); Creatinine Clr Calc Pharmacy 67.7 ml/min; Est GFR (African American) 82.2; Est GFR (Non-African American) 70.9; Magnesium 1.9 mg/dl (1.8-2.4); Potassium 3.6 mmol/L (3.5-5.1)
[2019-11-19] MEDS ORDERED: PANTOprazole 40 MG TAB PO SCH (09:00)
[2019-11-19] MEDS ORDERED: ASPIRIN 81 MG ECTAB PO SCH (09:00)
[2019-11-19] MEDS: CALCIUM 600MG + VIT D 400 IU TAB PO SCH ×2 (09:59→21:02)
[2019-11-19] MEDS: AMLODIPINE BESYLATE 5 MG TAB PO SCH (09:59)
[2019-11-19] MEDS: ENOXAPARIN INJ 40 MG/0.4 ML SYR SQ SCH (10:00)
[2019-11-19] MEDS: ATORVASTATIN 40 MG TAB PO SCH (10:00)
[2019-11-19] MEDS ORDERED: IBUPROFEN 600 MG TAB PO PRN (10:23)
[2019-11-19] MEDS: ACETAMINOPHEN 500 MG TAB PO SCH ×2 (11:19→21:04)
--- NOTE | 2019-11-19 14:42 | Hospitalist Progress Note ---
Date of Service November 19, 2019 Subjective Patient sprained her right ankle approximately one week ago and was seen by orthopedics as outpatient. Xray revealed evidence of an old (not acute) fracture of the malleolus and she was diagnosed with an acute sprain. She was given a boot to walk around with 24/7 and started to notice right hip and lower back pain that became severe prompting an ER visit. She is on chronic Fentanyl for chronic post-operative back pain. She states the morphine helped her overn ight, and that is really the only thing that has worked. She doesn't like th ice application but does prefer the heat. She is otherwise able to move slowly to a standing position and denies any loss of sensation. Review of Systems Review of Systems: All systems reviewed & are unremarkable except as noted in Subjective Physical Exam Physical Exam: CONSTITUTIONAL: WNWD, vitals as above, generally well- appearing but guarded. EYES: normal conjunctivae, no scleral icterus ENT: MMM RESPIRATORY: clear to auscultation bilaterally, no crackles, rales or wheezes, normal respiratory effort CARDIOVASCULAR: regular rate and rhythm, S1 and 2 heard without murmurs, gallops or rubs, no JVD, no peripheral edema GASTROINTESTINAL: soft, nontender, nondistended MUSCULOSKELETAL: strength 5/5 throughout, head is normocephalic and atraumatic, ambulatory. She is severely tender to palpation around her lumbar paraspinal musculature on both sides R>L. No pain to palpation of right gluteus or piriformis. She also had some lateral right upper thigh pain to palpation. SKIN: warm and dry NEUROLOGIC: CN 2-12 grossly intact, normal cognition, normal speech, attempted to perform SLR but she was too painful on the right side. PSYCHIATRIC: alert cooperative and oriented to person, place and time. Results & Data ([facility]) Vital Signs (Past 12 Hours) Vital Signs Temp Pulse Resp BP Pulse Ox 11/19/19 07:41 36.5 C 75 16 153/87 H 93 Laboratory Results Short CBC 11/18/19 11/19/19 Range/Units 15:30 05:33 WBC 8.45 7.40 (4.8-10.8) K/uL Hgb 14.4 13.7 (12.0-16.0) g/dL Hct 42.1 41.3 (37-47) % Plt Count 331 324 (130-400) K/uL BMP 11/18/19 11/19/19 15:30 05:33 Sodium 138 139 Potassium 3.4 L 3.6 Chloride 104 105 Carbon Dioxide 29 27 BUN 14 15 Creatinine 0.78 0.83 Glucose 105 H 124 H Calcium 9.5 9.0 Liver Function 11/18/19 Range/Units 15:30 Total Bilirubin 0.6 (0.2-1) mg/dl AST 18 (15-37) U/L ALT 25 (12-78) U/L Alkaline Phosphatase 94 (45-117) U/L Albumin 3.9 (3.4-5.0) gm/dl Urine 11/18/19 Range/Units 18:30 Urine Color Yellow Urine Appearance Clear (Clear) Urine pH 6.5 (4.5-7.5) Ur Specific [place] 1.017 (1.000-1.030) Urine Protein Negative (Negative) Urine Glucose (UA) Negative (Negative) Diagnostic Findings ABDOMEN AND PELVIS CT WITHOUT CONTRAST FINDINGS: Chronic left hemidiaphragmatic elevation with left basilar atelectasis/scarring. Pleural calcifications at the level of the left lung base are also noted. There is no pneumatosis or pneumoperitoneum. Cardiomegaly. Limited evaluation of the solid abdominal organs without the use of IV contrast. Within the limitations of the exam the spleen, pancreas, gallbladder and adrenal glands are unremarkable. Liver is also unremarkable. 4 mm nonobstructing calculus of the superior pole left kidney. No ureteral calculi or obstructive uropathy identified. The ureters appear normal. Phleboliths are noted within the pelvis. Urinary bladder, uterus and adnexa are unremarkable. Calcified plaque of the aorta without aneurysm. No adenopathy. Small hiatal hernia with mild wall thickening of the distal esophagus redemonstrated. No small bowel obstruction. Colonic diverticulosis without acute diverticulitis. Terminal ileum is unremarkable. Appendectomy. No ascites or mesenteric inflammation. Soft tissue calcifications of the upper right thigh. Metallic wires noted about the mid lumbar spine. Severe degenerative changes of the SI joints with erosions. Multilevel degenerative bony fusion and lumbar levoscoliosis. No acute fracture identified. Evidence of prior hardware removal of the lumbar spine. No acute fracture or dislocation identified, specifically the right hip appears intact. IMPRESSION: 1. No bowel obstruction or bowel wall thickening. Prior appendectomy. 2. Colonic diverticulosis without acute diverticulitis. 3. Nonobstructing left nephrolithiasis. No ureteral calculi or obstructive uropathy. 4. Small hiatal hernia with mild wall thickening of the distal esophagus. 5. Bilateral sacroiliitis. 6. Additional findings as above. US venous doppler LE RT FINDINGS: Flow, compressibility, phasicity and augmentation of the right lower extremity deep venous structures. IMPRESSION: No sonographic evidence of deep venous thrombosis. Medications Administered Current Inpatient Medications Acetaminophen (Tylenol) 1,000 mg PO Q8 [facility] Stop: 12/19/19 10:59 Last Admin: 11/19/19 11:19 Dose: 1,000 mg Documented by: Amlodipine Besylate (Norvasc) 10 mg PO QAM [facility] Stop: 12/19/19 08:59 Last Admin: 11/19/19 09:59 Dose: 10 mg Documented by: Aspirin (Ecotrin Ectab) 81 mg PO QAM [facility] Stop: 12/19/19 08:59 Last Admin: 11/19/19 09:59 Dose: 81 mg Documented by: Atorvastatin Calcium (Lipitor) 40 mg PO QAM [facility] Stop: 12/19/19 08:59 Last Admin: 11/19/19 10:00 Dose: 40 mg Documented by: Buspirone HCl (Buspar) 10 mg PO TID [facility] Stop: 12/18/19 21:33 Last Admin: 11/19/19 14:21 Dose: 10 mg Documented by: Diazepam (Valium) 5 mg PO TID [facility] Stop: 12/19/19 14:29 Enoxaparin Sodium (Lovenox) 40 mg SQ QAM [facility] Stop: 12/19/19 08:59 Last Admin: 11/19/19 10:00 Dose: 40 mg Documented by: Fentanyl (Duragesic) 25 mcg TD Q72H [facility] Stop: 12/02/19 21:59 Last Admin: 11/18/19 23:25 Dose: 25 mcg Documented by: Fentanyl (Duragesic) 12 mcg TD Q72H [facility] Stop: 12/02/19 21:59 Last Admin: 11/18/19 23:24 Dose: 12 mcg Documented by: Heparin Sodium (Porcine) (Heparin Sod 100 Unit/Ml Flush) 5 ml FLUSH PRN PRN PRN Reason: Flush Stop: 12/19/19 01:14 Hydroxyzine HCl (Vistaril) 100 mg PO [facility] Stop: 12/18/19 21:33 Last Admin: 11/18/19 23:17 Dose: 100 mg Documented by: Promethazine HCl 12.5 mg/ (Sodium Chloride) 50.5 mls @ 202 mls/hr IV Q6H PRN PRN Reason: Nausea And Vomiting Stop: 12/18/19 21:33 Ibuprofen (Motrin) 600 mg PO Q8H [facility] Stop: 12/19/19 21:59 Levothyroxine Sodium (Synthroid) 75 mcg PO DAILYBB [facility] Stop: 12/19/19 06:29 Last Admin: 11/19/19 06:34 Dose: 75 mcg Documented by: Lidocaine (Lidoderm 5%) 1 patch TD DAILY@2200 [facility] Stop: 12/18/19 21:59 Last Admin: 11/18/19 23:18 Dose: 1 patch Documented by: Lurasidone HCl (Latuda) 20 mg PO QDD [facility] Stop: 12/19/19 16:29 Mirtazapine (Remeron) 7.5 mg PO [facility] Stop: 12/18/19 21:33 Last Admin: 11/18/19 23:26 Dose: 7.5 mg Documented by: Miscellaneous (Remove Lidoderm Patch) 1 ea N/A DAILY@1000 [facility] Stop: 12/19/19 09:59 Last Admin: 11/19/19 10:01 Dose: 1 ea Documented by: Miscellaneous (Fentanyl Patch Remove & Waste) 2 ea N/A Q3D@2159 [facility] Stop: 12/21/19 21:58 Miscellaneous (Fentanyl Patch Check Placement) 2 ea N/A QS [facility] Stop: 12/19/19 00:00 Last Admin: 11/19/19 08:23 Dose: 2 ea Documented by: Miscellaneous (Order Awaiting Action) 1 ea N/A QAM [facility] Stop: 12/19/19 08:59 Last Admin: 11/19/19 09:58 Dose: Not Given Documented by: Multivitamins/Minerals (Caltrate Plus) 1 tab PO BID [facility] Stop: 12/18/19 21:33 Last Admin: 11/19/19 09:59 Dose: 1 tab Documented by: Pantoprazole Sodium (Protonix) 40 mg PO BID [facility] Stop: 12/19/19 20:59 Polyethylene Glycol (Miralax Powder Packet) 17 gm PO DAILY PRN PRN Reason: Constipation Stop: 12/18/19 21:33 Pramipexole Dihydrochloride (Mirapex) 0.125 mg PO HS PRN PRN Reason: Restless Leg(S) Stop: 12/18/19 21:33 Trazodone HCl (Desyrel) 200 mg PO HS [facility] Stop: 12/18/19 21:33 Last Admin: 11/18/19 23:26 Dose: 200 mg Documented by:
[2019-11-19] MEDS: diazePAM 5 MG TABLET PO SCH ×2 (14:56→21:03)
[2019-11-19] MEDS: HEPARIN 100 UNIT/ML 5ML FLUSH FLUSH PRN (14:56)
[2019-11-19] MEDS ORDERED: LURASIDONE HCL 40 MG TAB PO SCH (16:30)
[2019-11-19] MEDS: PANTOprazole 40 MG TAB PO SCH (21:02)
[2019-11-19] MEDS: MIRTAZAPINE TAB 15 MG TAB PO SCH (21:03)
[2019-11-19] MEDS: LIDOCAINE 5% 1 PATCH TD SCH (21:04)
[2019-11-19] MEDS: IBUPROFEN 600 MG TAB PO SCH (21:04)
[2019-11-20] MEDS: CHECK FENTANYL PATCH PLACEMENT SCH ×3 (00:41→16:19)
[2019-11-20] MEDS ORDERED: LORazepam 0.5 MG TAB PO STA (01:21)
[2019-11-20] MEDS: ACETAMINOPHEN 500 MG TAB PO SCH ×2 (05:54→14:22)
[2019-11-20] MEDS: IBUPROFEN 600 MG TAB PO SCH ×2 (05:55→14:22)
[2019-11-20] MEDS: LEVOTHYROXINE SODIUM 75 MCG TABLET PO SCH (05:55)
[2019-11-20] MEDS: HEPARIN 100 UNIT/ML 5ML FLUSH FLUSH PRN ×2 (06:00→15:20)
[2019-11-20 06:22] LABS: Hematocrit (blood only) 42.5 % (37-47); Hemoglobin 14.1 g/dL (12.0-16.0); Mean Corpuscular Hemoglobin 27.8 pg (25-34); Mean Corpuscular Hgb Conc 33.2 g/dL (32-36); Mean Corpuscular Volume 83.7 fL (80-100); Mean Platelet Volume 9.2 fL (7.4-10.4); Platelet Count 308 K/uL (130-400); RDW Coefficient of Variation 16.4 % (11.5-14.5); RDW Standard Deviation 49.8 fL (36.4-46.3); Red Blood Count 5.08 M/uL (4.2-5.4); White Blood Count 6.58 K/uL (4.8-10.8)
[2019-11-20 06:53] LABS: BUN Creatinine Ratio 19.8 (10-20); Calcium 9.3 mg/dl (8.5-10.1); Creatinine Clr Calc Pharmacy 71.2 ml/min; Est GFR (African American) 87.3; Est GFR (Non-African American) 75.3; Potassium 3.4 mmol/L (3.5-5.1)
[2019-11-20] MEDS: ENOXAPARIN INJ 40 MG/0.4 ML SYR SQ SCH (08:52)
[2019-11-20] MEDS: ATORVASTATIN 40 MG TAB PO SCH (08:52)
[2019-11-20] MEDS: CALCIUM 600MG + VIT D 400 IU TAB PO SCH (08:52)
[2019-11-20] MEDS: diazePAM 5 MG TABLET PO SCH ×2 (08:53→14:22)
[2019-11-20] MEDS: AMLODIPINE BESYLATE 5 MG TAB PO SCH (08:53)
[2019-11-20] MEDS: PANTOprazole 40 MG TAB PO SCH (09:49)
--- NOTE | 2019-11-20 14:40 | Discharge Summary ---
Date of Service November 20, 2019 Admission HPI Per Admitting Provider History obtained from patient and records. Medical history significant for CAD sp stenting, HTN, hyperlipidemia, PTSD/mood disorder, post polio syndrome/scoliosis as per records, chronic pain on Fentanyl patch, prediabetes as per records, migraine. Recent confinement August 2019 for cellulitis right lower extremity. Last week, patient caught her foot trying to get out of a car. Subsequent right foot/ankle swelling. No R ankle/tibia/fibula fractures on outpatient imaging. Right foot x-ray showed soft tissue swelling. Seen by [facility] outpatient 3 days ago. Impression was right lateral ankle sprain. Medial malleolus fracture felt to be chronic and not from acute injury as per note. Walking boot for right foot recommended. Gait instability noted today after patient tried using right foot boot causing patient to fall down landing on her bottom. Achy right hip/low back pain. No head trauma. No chest pain, no S OB. No unusual urinary incontinence. Intractable back pain at the ER. 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 Admission Exam Per Admitting Provider GENERAL: uncomfortable, obese, no respiratory distress SKIN: Normal color, warm HEENT: pale palpebral conjunctivae, no ptosis, dry buccal mucosa NECK : Supple, short neck, no tenderness CHEST : Decreased breath sounds, no tenderness HEART : RRR, no obvious murmurs ABDOMEN: Some distention, nontender BACK : Low back tenderness, positive R straight leg raise test EXTREMITIES : Minimal LE swelling, minimal right foot swelling with tenderness, no other conspicuous deformities noted NEUROLOGIC : Coherent, no facial asymmetry, no other gross focality Principal Diagnosis Acute on chronic pain pain-musculoskeletal etiology Discharge Data Allergies Allergy/AdvReac Type Severity Reaction Status Date / Time latex Allergy Intermediate Rash Verified 11/18/19 14:54 nickel Allergy Intermediate SEVERE Verified 11/18/19 14:54 DERMATITIS NSAIDS (Non-Steroidal Allergy Intermediate HX OF Verified 11/18/19 14:54 Anti-Inflamma BLEEDING ULCERS-TO AVOID aspirin AdvReac Intermediate bleeding Verified 11/18/19 14:54 ulcers Consultations 11/18/19 19:06 ED Decision to Admit Stat 11/18/19 20:48 Consult Case Management - Discharge Planning Stat Ordered Studies 11/18/19 14:30 CT abd pelvis wo con Stat US venous doppler LE RT Stat Hospital Course (1) Low back pain: 69-year-old female with a history of chronic opiate use presented with intractable back pain. She reported using a walking boot given to her by orthopedic provider after an ankle sprain. She subsequently developed nontraumatic compensatory right-sided lower back pain and right hip pain after a few days. She was admitted to the hospitalist service and placed on a Lidoderm patch with additional opiates to help manage her pain. The following day she was placed on a trial of Valium and NSAIDs which helped her significantly overnight and she was able to walk more closely to her baseline the following day. Physical therapy evaluated her and cleared her for safety to return home. At time of discharge she was hemodynamically stable and afebrile and tolerating p.o. She was mentating and ambulating at baseline. Physical exam revealed improved tenderness in the lower back area to palpation and improved range of motion throughout. She was sent home in stable condition with close primary care follow-up recommended. Total Time Total Time Spent Total Time Spent (In Minutes): 60 Total Time Includes: Examination of the Patient, Discharge Planning, Medication Reconciliation and Communication With Other Providers Discharge Plan Discharge Items Patient Disposition: Home - Home Health Services Reason For Visit: BACK PAIN Discharge Diagnosis: Acute on chronic pain pain-musculoskeletal etiology Condition on Discharge: Good Activity: Resume your previous activity Non-emergency contact: Primary Care Provider Call non-emergency contact if: you have any medication questions, your symptoms worsen, your pain is not controlled, your pain is worsening, your pain is unusual for you, your pain is concerning for you and you have a fever Follow-up/Referrals: Charanjit Spann MD [Primary Care Provider] - Diet: Heart Healthy Addtl Attending Provider Instructions: Please take all medications as instructed on discharge list below. You are being sent home with additional Home Health services for physical and occupational therapy. Out of caution, it is recommended that you avoid TRAZODONE and ZANAFLEX while taking the VALIUM to avoid potentially severe medication interactions. Please do not drink ALCOHOL while taking the VALIUM, either. To make it easier on your stomach while on the IBUPROFEN, please consider taking PROTONIX provided twice daily, holding your daily baby ASPIRIN, and taking the IBUPROFEN with food. It is recommended that you follow up with your primary care physician within one week to ensure you are still doing well with your pain after going home. Someone from our office will contact you regarding this on Thursday. As we discussed it will be important to call your Orthopedics office regarding your intolerance of the walking boot they provided, as they may want you to have an alternative therapy. It was a pleasure taking care of you! Please call if you have any questions or problems. You can reach a [facility] hospitalist on duty at [facility] 24 hours a day by calling [phone]. Take care of yourself. Nanda Manning, [facility] Center[facility] Pending Studies at Discharge: No Stand-Alone Forms: My [facility], Smoking Cessation Medications and DC Order Prescriptions: New acetaminophen 500 mg Tablet 1,000 mg PO Q8 7 Days Qty: 42 RF: 1 ibuprofen 600 mg Tablet 600 mg PO Q8H 7 Days Qty: 21 RF: 1 diazepam 5 mg Tablet 5 mg PO TID 7 Days Qty: 21 RF: 0 lidocaine 5 % Adhesive Patch,Medicated 1 patch transdermal DAILY@2200 7 Days Qty: 15 RF: 1 pantoprazole 40 mg Tablet,Delayed Release (Dr/Ec) 40 mg PO BID 7 Days Qty: 14 RF: 1 Continued nitroglycerin [Nitrostat] 0.3 mg Tablet, Sublingual 0.3 mg sublingual UD PRN (Reason: Chest Pain) RF: 0 aspirin [Aspir-81] 81 mg Tablet,Delayed Release (Dr/Ec) 81 mg PO QAM RF: 0 magnesium oxide 400 mg (241.3 mg magnesium) Tablet 400 mg PO BID RF: 0 nystatin 100,000 unit/gram Powder 1 applic TOPICAL TID PRN (Reason: BREAKOUTS) RF: 0 Calcium 600 + D(3) 600 mg calcium- 200 unit Capsule 1 cap PO BID RF: 0 olopatadine 0.2 % Drops 1 drp OPB QAM RF: 0 epinephrine 0.3 mg/0.3 mL Syringe 0.3 mg IM Q3H PRN (Reason: Allergic Reaction) RF: 0 Ocuvite Adult 50 Plus 250-5-1 mg Capsule 1 cap PO QAM RF: 0 pantoprazole 40 mg tablet,delayed release (DR/EC) 40 mg PO QAM RF: 0 mirtazapine 7.5 mg tablet 7.5 mg PO HS RF: 0 Latuda 20 mg Tablet 20 mg PO QPM RF: 0 atorvastatin [Lipitor] 40 mg Tablet 40 mg PO QAM RF: 0 levothyroxine 75 mcg Tablet 75 mcg PO QAM RF: 0 buspirone 10 mg Tablet 10 mg PO TID RF: 0 tramadol [Ultram] 50 mg Tablet 50 mg PO Q8 PRN (Reason: severe pain) RF: 0 pramipexole [Mirapex] 0.125 mg Tablet 0.125 mg PO HS PRN (Reason: Restless Leg(S)) RF: 0 potassium chloride [Klor-Con M20] 20 mEq tablet,ER particles/crystals 20 meq PO BID RF: 0 prochlorperazine maleate 5 mg tablet 10 mg PO BID PRN (Reason: Nausea) RF: 0 polyethylene glycol 3350 17 gram Powder In Packet 17 g PO DAILY PRN (Reason: Constipation) RF: 0 ondansetron HCl [Zofran] 8 mg Tablet 8 mg PO Q6H PRN (Reason: Nausea) RF: 0 promethazine 25 mg Tablet 25 mg PO Q6H PRN (Reason: Nausea) RF: 0 fentanyl [Duragesic] 25 mcg/hr patch 72 hour 1 patch topical [id number] RF: 0 fentanyl [Duragesic] 12 mcg/hr patch 72 hour 1 patch topical [id number] RF: 0 hydroxyzine HCl 25 mg tablet 100 mg PO HS RF: 0 amlodipine [Norvasc] 5 mg tablet 10 mg PO QAM RF: 0 Discontinued tizanidine [Zanaflex] 4 mg Capsule 4 mg PO BID PRN (Reason: Muscle Spasm) RF: 0 trazodone 100 mg tablet 200 mg PO HS RF: 0 acetaminophen [Tylenol Extra Strength] 500 mg Tablet 500 mg PO Q6H PRN (Reason: Pain) RF: 0 Discharge Orders: Discharge Order (Routine); Ordered 11/20/19 Ordered By: Nanda Pineda/Other Patient Handouts: Back Pain Relieve Admission Data Admit Date/Time: 11/19/19 14:36 Attending Provider: Nanda Manning Admit Provider: Latrell Kraft Primary Care Provider: Charanjit Spann Other Providers: [facility],Health ; [facility] ; [facility] Other Interventions: Discharge Summary Assessment (RN) Last Done: 11/20/19 15:08 DC Date/Time DO NOT enter until pt leaves facility: 11/20/19 17:03
== END 2019-11-20 17:03 | disposition home health service (06) | DRG 552 ==
LOC: ED 13:18 → 3W 13:18

== ENCOUNTER 2020-01-30 16:45 | Inpatient (IN) ==
--- NOTE | 2020-01-30 17:30 | Emergency Department Note ---
History of Present Illness General Chief complaint: Shortness of Breath/Dyspnea Stated complaint: SOB, FEVER Time Seen by Provider: 01/30/20 16:50 History of Present Illness Maximum Pain Intensity: 8 The patient is a 70-year-old female who presented to the emergency department from her primary care physician's office for an evaluation of cough fever and hypoxia. The patient started noticing cough and difficulty breathing over the last few days. She also complains of severe headache as well as joint pain. The patient has no specific exposure to coronavirus but when she was seen by her primary care physician she was sent to our emergency department specifically for a work-up of coronavirus. The patient states that she also has been noticing nausea but no vomiting. She is had no diarrhea. She denies having any leg swelling or leg pain but does complain of joint pain in her lower extremities. The patient complains of very significant weakness over her entire body. She di d take Tylenol for the fever recently. Home Medications Home Medications Medication Instructions Recorded Confirmed Type atorvastatin [Lipitor] 40 mg PO QAM 12/13/18 01/30/20 History buspirone 10 mg PO TID 12/13/18 01/30/20 History levothyroxine 75 mcg PO QAM 12/13/18 01/30/20 History pramipexole [Mirapex] 0.125 mg PO HS PRN 01/25/19 01/30/20 History tramadol [Ultram] 50 mg PO Q8 PRN 01/25/19 01/30/20 History potassium chloride [Klor-Con M20] 20 meq PO BID 03/30/19 01/30/20 History ondansetron HCl [Zofran] 8 mg PO Q6H PRN 05/12/19 01/30/20 History polyethylene glycol 3350 17 g PO DAILY PRN 05/12/19 01/30/20 History prochlorperazine maleate 10 mg PO BID PRN 05/12/19 01/30/20 History promethazine 25 mg PO Q6H PRN 05/12/19 01/30/20 History Calcium 600 + D(3) 1 cap PO BID 05/23/19 01/30/20 History Ocuvite Adult 50 Plus 1 cap PO QAM 05/23/19 01/30/20 History aspirin [Aspir-81] 81 mg PO QAM 05/23/19 01/30/20 History epinephrine 0.3 mg IM Q3H PRN 05/23/19 01/30/20 History magnesium oxide 400 mg PO BID 05/23/19 01/30/20 History nitroglycerin [Nitrostat] 0.3 mg SUBLINGUAL UD PRN 05/23/19 01/30/20 History nystatin 1 applic TOPICAL TID PRN 05/23/19 01/30/20 History olopatadine 1 drp OPB QAM 05/23/19 01/30/20 History fentanyl [Duragesic] 1 patch TOPICAL [id number] 05/26/19 01/30/20 History fentanyl [Duragesic] 1 patch TOPICAL [id number] 05/26/19 01/30/20 History mirtazapine 7.5 mg PO HS 07/03/19 01/30/20 History pantoprazole 40 mg PO QAM 07/03/19 01/30/20 History Latuda 20 mg PO QPM 08/04/19 01/30/20 History amlodipine [Norvasc] 10 mg PO QAM 08/21/19 01/30/20 History hydroxyzine HCl 100 mg PO HS 08/21/19 01/30/20 History acetaminophen 1,000 mg PO Q8 7 Days #42 tab 11/20/19 01/30/20 Rx gabapentin 600 mg PO HS 01/30/20 01/30/20 History ibuprofen 600 mg PO Q8H PRN 01/30/20 01/30/20 History Allergies Allergy/AdvReac Type Severity Reaction Status Date / Time latex Allergy Intermediate Rash Verified 01/30/20 19:40 nickel Allergy Intermediate SEVERE Verified 01/30/20 19:40 DERMATITIS NSAIDS (Non-Steroidal Allergy Intermediate HX OF Verified 01/30/20 19:40 Anti-Inflamma BLEEDING ULCERS-TO AVOID aspirin AdvReac Intermediate bleeding Verified 01/30/20 19:40 ulcers Past Med/Surg History Medical History Anemia (Chronic) HX OF Anxiety (Chronic) CAD (coronary artery disease) (Chronic) 2017-[facility] to LAD Cervical spondylolysis (Chronic) Chronic pain (Chronic) Colitis (Chronic) Cyclical vomiting (Chronic) Deep vein thrombosis (Chronic) 4 YEARS AGO Degenerative disc disease (Chronic) Depression (Chronic) Dyslipidemia (Chronic) Hyperlipidemia (Chronic) Hypertension (Chronic) Hypothyroidism (Chronic) Migraine (Chronic) Mood disorder (Chronic) Myocardial Infarction (Chronic) 2 YEARS AGO Osteoarthritis (Chronic) Post traumatic stress disorder (Chronic) Pulmonary embolism (Chronic) 2 YEARS OLD (UNSURE OF REASON) Restless leg syndrome (Chronic) Scoliosis (Chronic) Surgical History Fusion of spine (Chronic) LUMBAR H/O ovarian cystectomy (Chronic) H/O repair of right rotator cuff (Chronic) H/O spinal fusion (Chronic) "1st surgery in [place], then multiple surgeries Dr. Catherine at [facility] [place]" History of adenoidectomy (Chronic) History of anesthesia reaction (Chronic) WOKE UP IN MIDDLE OF SPINAL SURGERIES History of appendectomy (Chronic) History of cataract surgery (Chronic) LEFT AND RIGHT History of heart artery stent (Chronic) 2017- STENT PLACED AT [facility] (DR. DAVILA) History of laminectomy (Chronic) LUMBAR History of tonsillectomy (Chronic) History of vascular access device (Chronic) PORT LEFT UPPER CHEST-IN PLACE Ovarian cyst (Chronic) X 2 Family History Mother Hypertension Father Hypertension Social History Preferred Language: [place] Communication Ability: Effective Delivery Technician Required: No Beliefs That Will Affect Care: None marital status: Single Current Living Situation: Alone current occupational status: retired Other Information That Helps Us Care for You: No Feels Safe at Home: Yes Safety Concerns: Feels Safe At This Time Smoking Status: Never smoker Second Hand Exposure: No ; Hx Alcohol Use: No Hx Substance Use: No Review of Systems See HPI for pertinent positives & negatives. and A total of 10 systems reviewed and were otherwise negative Physical Exam Vital Signs Vital Signs - 24 hr 01/30/20 16:53 01/30/20 18:43 01/30/20 19:02 Temperature 37.2 C 37.1 C Temperature Source Oral Oral Pulse Rate 90 Pulse Rate [Apical] 81 Pulse Rate from SpO2 Sensor 86 Pulse Rhythm [Apical] Regular Pulse Strength [Apical] Normal Respiratory Rate 14 16 23 Respiratory Effort / Characteristics Non-Labored Spontaneous Non-Labored Spontaneous Respiratory Depth Normal Normal Respiratory Pattern Regular Regular Blood Pressure 126/84 145/50 H Blood Pressure [Left Arm] 115/86 Blood Pressure Mean 98 65 Blood Pressure Mean [Left Arm] 95 Blood Pressure Position [Left Arm] Sitting Pulse Oximetry 83 L 91 95 Oxygen Delivery Method Room Air Nasal Cannula Nasal Cannula Oxygen Flow Rate 4 4 Sepsis Recent Fever Within 48 Hours Yes Sepsis New/Unexplained Change in Mental Status No Sepsis Action Taken by Nursing No Action Required 01/30/20 19:31 01/30/20 20:00 01/30/20 20:31 Temperature Temperature Source Pulse Rate 86 Pulse Rate [Apical] Pulse Rate from SpO2 Sensor 88 89 89 Pulse Rhythm [Apical] Pulse Strength [Apical] Respiratory Rate 12 18 Respiratory Effort / Characteristics Respiratory Depth Respiratory Pattern Blood Pressure 136/81 147/75 H 118/66 Blood Pressure [Left Arm] Blood Pressure Mean 110 93 97 Blood Pressure Mean [Left Arm] Blood Pressure Position [Left Arm] Pulse Oximetry 90 94 95 Oxygen Delivery Method Oxygen Flow Rate Sepsis Recent Fever Within 48 Hours Sepsis New/Unexplained Change in Mental Status Sepsis Action Taken by Nursing 01/30/20 20:45 01/30/20 21:00 01/30/20 21:01 Temperature Temperature Source Pulse Rate Pulse Rate [Apical] Pulse Rate from SpO2 Sensor 83 96 H 105 H Pulse Rhythm [Apical] Pulse Strength [Apical] Respiratory Rate Respiratory Effort / Characteristics Respiratory Depth Respiratory Pattern Blood Pressure 132/83 Blood Pressure [Left Arm] Blood Pressure Mean 88 Blood Pressure Mean [Left Arm] Blood Pressure Position [Left Arm] Pulse Oximetry 85 L 89 L 95 Oxygen Delivery Method Room Air Nasal Cannula Nasal Cannula Oxygen Flow Rate 3 3 Sepsis Recent Fever Within 48 Hours Sepsis New/Unexplained Change in Mental Status Sepsis Action Taken by Nursing 01/30/20 21:18 01/30/20 21:30 01/30/20 22:00 Temperature Temperature Source Pulse Rate Pulse Rate [Apical] 88 Pulse Rate from SpO2 Sensor 87 88 Pulse Rhythm [Apical] Pulse Strength [Apical] Respiratory Rate 22 Respiratory Effort / Characteristics Spontaneous Respiratory Depth Respiratory Pattern Blood Pressure 154/92 H Blood Pressure [Left Arm] Blood Pressure Mean 111 Blood Pressure Mean [Left Arm] Blood Pressure Position [Left Arm] Pulse Oximetry 94 95 90 Oxygen Delivery Method Nasal Cannula Nasal Cannula Nasal Cannula Oxygen Flow Rate 4 3 3 Sepsis Recent Fever Within 48 Hours Sepsis New/Unexplained Change in Mental Status Sepsis Action Taken by Nursing 01/30/20 22:22 04/13/20 22:30 Temperature Temperature Source Pulse Rate 76 74 Pulse Rate [Apical] Pulse Rate from SpO2 Sensor 75 73 Pulse Rhythm [Apical] Pulse Strength [Apical] Respiratory Rate 14 16 Respiratory Effort / Characteristics Respiratory Depth Respiratory Pattern Blood Pressure 141/90 H 122/74 Blood Pressure [Left Arm] Blood Pressure Mean 103 89 Blood Pressure Mean [Left Arm] Blood Pressure Position [Left Arm] Pulse Oximetry 96 97 Oxygen Delivery Method Nasal Cannula Nasal Cannula Oxygen Flow Rate 4 4 Sepsis Recent Fever Within 48 Hours Sepsis New/Unexplained Change in Mental Status Sepsis Action Taken by Nursing GENERAL: The patient is awake and alert. She is somewhat anxious appearing and appears to be uncomfortable. EYES: The conjunctivae are clear. The pupils are round and reactive. EARS, NOSE, MOUTH AND THROAT: The nose is without any evidence of any deformity. Mucous membranes are dry NECK: The neck is nontender and supple. RESPIRATORY: Shallow respirations were noted. There were diminished breath sounds in the left lung field. Rales were noted at both bases. CARDIOVASCULAR: Regular rate and rhythm noted there no murmurs rubs or gallops normal S1 normal S2. GASTROINTESTINAL: The abdomen is soft. Abdomen is nontender. MUSCULOSKELETAL/EXTREMITIES: There is no evidence of gross deformity full range of motion is noted in the hips and shoulders. SKIN: Trace pedal edema was noted bilaterally. NEUROLOGIC: Patient is awake alert and oriented x3. Course Course 2000: I discussed this case with Dr. Avendaño who is on-call for the [facility] hospitalist group. He is agreed to evaluate the patient in the emergency department for further management and disposition. Administered Medications Amlodip[facility] ([facility]) [facility] Stop: 03/01/20 08:59 Last Admin: 01/31/20 08:24 Dose: 10 mg Documented by: [id number] Aspirin (Ecotrin Ectab) 81 mg PO QAM [facility] Stop: 03/01/20 08:59 Last Admin: 01/31/20 08:24 Dose: 81 mg Documented by: [id number] Atorvastatin Calcium (Lipitor) 40 mg PO QAM [facility] Stop: 03/01/20 08:59 Last Admin: 01/31/20 08:24 Dose: 40 mg Documented by: [id number] Buspirone HCl (Buspar) 10 mg PO TID [facility] Stop: 03/01/20 08:59 Last Admin: 04/14/20 08:24 Dose: 10 mg Documented by: [id number] Fentanyl (Duragesic) 25 mcg TD Q3D@0900 [facility] Stop: 02/14/20 08:59 Last Admin: 01/31/20 08:43 Dose: 25 mcg Documented by: [id number] Fentanyl (Duragesic) 12 mcg TD Q3D@0900 [facility] Stop: 02/14/20 08:59 Last Admin: 01/31/20 08:43 Dose: 12 mcg Documented by: [id number] Gabapentin (Neurontin) 600 mg PO HS [facility] Stop: 03/01/20 00:59 Last Admin: 01/31/20 01:36 Dose: 600 mg Documented by: [id number] Guaifenesin (Mucinex) 600 mg PO Q12 [facility] Stop: 03/01/20 00:59 Last Admin: 01/31/20 08:23 Dose: 600 mg Documented by: [id number] Admin: 01/31/20 01:35 Dose: 600 mg Documented by: [id number] Heparin Sodium/Dextrose (Heparin Sodium/Dextrose) 25,000 units in 500 mls @ 25 mls/hr IV .Q20H [facility]; Protocol Stop: 02/29/20 22:44 Last Titration: 01/31/20 11:05 Dose: 1,250 units/hr, 25 mls/hr Documented by: [id number] Cosigned by: [id number] Titration: 01/31/20 06:56 Dose: 1,250 units/hr, 25 mls/hr Documented by: [id number] Cosigned by: [id number] Admin: 01/30/20 23:25 Dose: 1,250 units/hr, 25 mls/hr Documented by: [id number] Cosigned by: [id number] Potassium Chloride 40 meq/ (Sodium Chloride) 1,020 mls @ 50 mls/hr IV .[id number] ONE Stop: 01/31/20 21:23 Last Admin: 01/31/20 01:37 Dose: 50 mls/hr Documented by: [id number] Levothyroxine Sodium (Synthroid) 75 mcg PO DAILYBB [facility] Stop: 03/01/20 06:29 Last Admin: 01/31/20 06:22 Dose: 75 mcg Documented by: [id number] Miscellaneous (Fentanyl Patch Remove & Waste) 1 ea N/A Q3D@0859 [facility] Stop: 03/01/20 08:58 Last Admin: 01/31/20 08:43 Dose: Not Given Documented by: [id number] Miscellaneous (Fentanyl Patch Check Placement) 1 ea N/A QS COLT Stop: 03/01/20 07:59 Last Admin: 01/31/20 08:41 Dose: Not Given Documented by: [id number] Miscellaneous (Fentanyl Patch Remove & Waste) 1 ea N/A Q72H COLT Stop: 03/01/20 08:58 Last Admin: 01/31/20 08:43 Dose: Not Given Documented by: [id number] Miscellaneous (Fentanyl Patch Check Placement) 1 ea N/A QS [facility] Stop: 03/01/20 07:59 Last Admin: 01/31/20 08:42 Dose: Not Given Documented by: [id number] Multivitamins/Minerals (Multivitamin W/ Minerals Tab) 1 tab PO QAM [facility] Stop: 03/01/20 08:59 Last Admin: 01/31/20 08:24 Dose: 1 tab Documented by: [id number] Pantoprazole Sodium (Protonix) 40 mg PO QAM [facility] Stop: 03/01/20 08:59 Last Admin: 01/31/20 08:25 Dose: 40 mg Documented by: [id number] Tramadol HCl (Ultram) 25 - 50 mg PO Q4H PRN PRN Reason: Pain Stop: 02/29/20 20:41 Last Admin: 01/31/20 06:29 Dose: 50 mg Documented by: [id number] Admin: 01/30/20 23:07 Dose: 50 mg Documented by: [id number] Discontinued Medications Albuterol (Duoneb) 3 ml NEB NOW STA Stop: 01/30/20 20:42 Last Admin: 01/30/20 21:13 Dose: 3 ml Documented by: [id number] Heparin Sodium/Dextrose (Heparin Sodium/Dextrose) Confirm Administered Dose 25,000 units IV .STK-MED ONE Stop: 01/30/20 23:13 Last Admin: 01/30/20 23:31 Dose: Not Given Documented by: [id number] Potassium Chloride (K Sai / Wtr) 10 meq in 100 mls @ 100 mls/hr IV ONE ONE Stop: 01/30/20 19:22 Last Infusion: 01/30/20 20:21 Dose: 0 mls/hr Documented by: [id number] Admin: 01/30/20 19:16 Dose: 100 mls/hr Documented by: [id number] Magnesium Sulfate/Dextrose (Magnesium Sulfate / D5w) 1 gm in 100 mls @ 100 mls/hr IV Q1H COLT Stop: 01/30/20 23:44 Last Admin: 01/31/20 01:53 Dose: Not Given Documented by: [id number] Infusion: 01/31/20 01:33 Dose: 0 mls/hr Documented by: [id number] Admin: 01/30/20 23:07 Dose: 100 mls/hr Documented by: [id number] Ioversol (Optiray 320 125ml) 118 ml IV ONCE PRN PRN Reason: Interaction Checking Stop: 02/03/20 21:44 Last Admin: 01/30/20 21:46 Dose: 1 ml Documented by: [id number] Ketorolac Tromethamine (Toradol) 15 mg IV NOW ONE Stop: 01/30/20 22:51 Last Admin: 01/30/20 23:04 Dose: Not Given Documented by: [id number] Miscellaneous (Order Awaiting Action) 1 ea N/A QS COLT Stop: 03/01/20 07:59 Last Admin: 01/31/20 08:26 Dose: Not Given Documented by: [id number] Morphine Sulfate (Morphine Sulfate) 2 mg IV NOW STA Stop: 01/30/20 21:37 Last Admin: 01/30/20 22:35 Dose: Not Given Documented by: [id number] Potassium Chloride (Klor-Con M10) 20 meq PO NOW STA Stop: 01/30/20 18:24 Last Admin: 01/30/20 19:16 Dose: 20 meq Documented by: [id number] Potassium Chloride (Klor-Con M10) 50 meq PO NOW STA Stop: 01/30/20 20:40 Last Admin: 01/30/20 23:07 Dose: 50 meq Documented by: [id number] Potassium Chloride (Klor-Con M10) Confirm Administered Dose 50 meq PO .STK-MED ONE Stop: 01/30/20 23:01 Last Admin: 01/30/20 23:31 Dose: Not Given Documented by: [id number] Potassium Chloride (Klor-Con M10) 50 meq PO ONE ONE Stop: 01/31/20 01:01 Last Admin: 01/31/20 01:34 Dose: 50 meq Documented by: [id number] Potassium Chloride (Klor-Con M20) 40 meq PO NOW STA Stop: 01/31/20 08:14 Last Admin: 01/31/20 08:42 Dose: 40 meq Documented by: [id number] Sumatriptan Succinate (Imitrex) 6 mg SQ NOW STA Stop: 01/30/20 22:40 Last Admin: 01/30/20 23:08 Dose: 6 mg Documented by: [id number] Medical Decision Making Differential Diagnosis Reactive airway disease, pneumonia, pneumothorax, COPD, CHF, infections, cardiac ischemia, pulmonary embolism, musculoskeletal, gastrointestinal, as well as other pathologies. Medical Records Attestation: I reviewed the patient's medical records. Home Medications Current Medication List: was personally reviewed by me Laboratory Data Attestation: I reviewed the patient's lab results. Result diagrams: 01/31/20 06:56 01/31/20 06:56 Lab Results 01/30/20 01/30/20 01/30/20 Range/Units 17:25 17:25 17:25 WBC 10.72 (4.8-10.8) K/uL RBC 4.04 L (4.2-5.4) M/uL Hgb 11.8 L (12.0-16.0) g/dL Hct 34.0 L (37-47) % MCV 84.2 (80-100) fL MCH 29.2 (25-34) pg MCHC 34.7 (32-36) g/dL RDW Std Deviation 44.4 (36.4-46.3) fL RDW Coeff of [place] 14.7 H (11.5-14.5) % Plt Count 253 (130-400) K/uL MPV 9.8 (7.4-10.4) fL Immature Gran % (Auto) 0.1 % Neut % (Auto) 57.0 % Lymph % (Auto) 27.1 % [place] % (Auto) 12.3 % Eos % (Auto) 3.1 % Baso % (Auto) 0.4 % Immature Gran # (Auto) 0.01 (0.00-0.02) K/uL Neut # (Auto) 6.12 (1.4-6.5) K/uL Lymph # (Auto) 2.90 (1.2-3.4) K/uL [place] # (Auto) 1.32 H (0.11-0.59) K/uL Eos # (Auto) 0.33 (0-0.5) K/uL Baso # (Auto) 0.04 (0-0.2) K/uL PT 11.2 (9.0-12.0) Seconds INR 1.1 (0.9-1.1) APTT 25.3 (21.0-31.0) Seconds PTT Ratio 0.9 D-Dimer (0-500) ug/L FEU VBG pH (7.36-7.41) VBG pCO2 (38-50) mmHg VBG pO2 mmHg VBG HCO3 mmol/L VBG O2 Saturation % VBG Base Excess mEq/L Barometric Pressure mm/Hg Sodium 135 L (136-145) mmol/L Potassium 2.3 L* (3.5-5.1) mmol/L Chloride 98 (98-107) mmol/L Carbon Dioxide 33 H (21-32) mmol/L Anion Gap 5.0 (3-11) BUN 18 (7-18) mg/dl Creatinine 0.92 (0.6-1.2) mg/dl Est Cr Clr Drug Dosing 61.2 ml/min Est GFR ( Amer) 72.1 Est GFR (Non-Af Amer) 62.2 BUN/Creatinine Ratio 19.0 (10-20) Glucose 133 H (70-99) mg/dl Lactate (0.4-2.0) mmol/L Calcium 8.3 L (8.5-10.1) mg/dl Magnesium 1.8 (1.8-2.4) mg/dl Total Bilirubin 0.6 (0.2-1) mg/dl AST 110 H (15-37) U/L ALT 52 (12-78) U/L Alkaline Phosphatase 91 (45-117) U/L Troponin I < 0.015 (0-0.045) ng/ml Total Protein 6.7 (6.4-8.2) gm/dl Albumin 3.2 L (3.4-5.0) gm/dl Globulin 3.5 (2.5-4.0) gm/dl Albumin/Globulin Ratio 0.9 (0.9-2) Procalcitonin (0-0.5) ng/ml Urine Color Urine Appearance (Clear) Urine pH (4.5-7.5) Ur Specific [place] (1.000-1.030) Urine Protein (Negative) Urine Glucose (UA) (Negative) Urine Ketones (Negative) Urine Blood (Negative) Urine Nitrite (Negative) Urine Bilirubin (Negative) Urine Urobilinogen (Negative) Ur Leukocyte Esterase (Negative) Adenovirus (PCR) (NotDetected) B. pertussis DNA (PCR) (NotDetected) B.parapertussis DNA PCR (NotDetected) C. pneumoniae DNA (PCR) (NotDetected) Coronavirus OC43 (PCR) (NotDetected) Coronavirus HKU1 (PCR) (NotDetected) Coronavirus 229E (PCR) (NotDetected) Coronavirus NL63 (PCR) (NotDetected) Human Metapneumovir PCR (NotDetected) Influenza Type A (PCR) (NotDetected) Influenza Type B (PCR) (NotDetected) M. pneumoniae (PCR) (NotDetected) Parainfluenza 1 (PCR) (NotDetected) Parainfluenza 2 (PCR) (NotDetected) Parainfluenza 3 (PCR) (NotDetected) Parainfluenza 4 (PCR) (NotDetected) RSV (PCR) (NotDetected) Entero/Rhino (PCR) (NotDetected) 01/30/20 01/30/20 01/30/20 Range/Units 17:25 17:25 17:25 WBC (4.8-10.8) K/uL RBC (4.2-5.4) M/uL Hgb (12.0-16.0) g/dL Hct (37-47) % MCV (80-100) fL MCH (25-34) pg MCHC (32-36) g/dL RDW Std Deviation (36.4-46.3) fL RDW Coeff of [place] (11.5-14.5) % Plt Count (130-400) K/uL MPV (7.4-10.4) fL Immature Gran % (Auto) % Neut % (Auto) % Lymph % (Auto) % [place] % (Auto) % Eos % (Auto) % Baso % (Auto) % Immature Gran # (Auto) (0.00-0.02) K/uL Neut # (Auto) (1.4-6.5) K/uL Lymph # (Auto) (1.2-3.4) K/uL [place] # (Auto) (0.11-0.59) K/uL Eos # (Auto) (0-0.5) K/uL Baso # (Auto) (0-0.2) K/uL PT (9.0-12.0) Seconds INR (0.9-1.1) APTT (21.0-31.0) Seconds PTT Ratio D-Dimer (0-500) ug/L FEU VBG pH 7.42 H (7.36-7.41) VBG pCO2 56 H (38-50) mmHg VBG pO2 43 mmHg VBG HCO3 35 mmol/L VBG O2 Saturation 74.0 % VBG Base Excess 9.1 mEq/L Barometric Pressure 724.0 mm/Hg Sodium (136-145) mmol/L Potassium (3.5-5.1) mmol/L Chloride (98-107) mmol/L Carbon Dioxide (21-32) mmol/L Anion Gap (3-11) BUN (7-18) mg/dl Creatinine (0.6-1.2) mg/dl Est Cr Clr Drug Dosing ml/min Est GFR ( Amer) Est GFR (Non-Af Amer) BUN/Creatinine Ratio (10-20) Glucose (70-99) mg/dl Lactate 1.1 (0.4-2.0) mmol/L Calcium (8.5-10.1) mg/dl Magnesium (1.8-2.4) mg/dl Total Bilirubin (0.2-1) mg/dl AST (15-37) U/L ALT (12-78) U/L Alkaline Phosphatase (45-117) U/L Troponin I (0-0.045) ng/ml Total Protein (6.4-8.2) gm/dl Albumin (3.4-5.0) gm/dl Globulin (2.5-4.0) gm/dl Albumin/Globulin Ratio (0.9-2) Procalcitonin < 0.05 (0-0.5) ng/ml Urine Color Urine Appearance (Clear) Urine pH (4.5-7.5) Ur Specific [place] (1.000-1.030) Urine Protein (Negative) Urine Glucose (UA) (Negative) Urine Ketones (Negative) Urine Blood (Negative) Urine Nitrite (Negative) Urine Bilirubin (Negative) Urine Urobilinogen (Negative) Ur Leukocyte Esterase (Negative) Adenovirus (PCR) (NotDetected) B. pertussis DNA (PCR) (NotDetected) B.parapertussis DNA PCR (NotDetected) C. pneumoniae DNA (PCR) (NotDetected) Coronavirus OC43 (PCR) (NotDetected) Coronavirus HKU1 (PCR) (NotDetected) Coronavirus 229E (PCR) (NotDetected) Coronavirus NL63 (PCR) (NotDetected) Human Metapneumovir PCR (NotDetected) Influenza Type A (PCR) (NotDetected) Influenza Type B (PCR) (NotDetected) M. pneumoniae (PCR) (NotDetected) Parainfluenza 1 (PCR) (NotDetected) Parainfluenza 2 (PCR) (NotDetected) Parainfluenza 3 (PCR) (NotDetected) Parainfluenza 4 (PCR) (NotDetected) RSV (PCR) (NotDetected) Entero/Rhino (PCR) (NotDetected) 01/30/20 01/30/20 01/30/20 Range/Units 17:25 17:25 17:30 WBC (4.8-10.8) K/uL RBC (4.2-5.4) M/uL Hgb (12.0-16.0) g/dL Hct (37-47) % MCV (80-100) fL MCH (25-34) pg MCHC (32-36) g/dL RDW Std Deviation (36.4-46.3) fL RDW Coeff of [place] (11.5-14.5) % Plt Count (130-400) K/uL MPV (7.4-10.4) fL Immature Gran % (Auto) % Neut % (Auto) % Lymph % (Auto) % [place] % (Auto) % Eos % (Auto) % Baso % (Auto) % Immature Gran # (Auto) (0.00-0.02) K/uL Neut # (Auto) (1.4-6.5) K/uL Lymph # (Auto) (1.2-3.4) K/uL [place] # (Auto) (0.11-0.59) K/uL Eos # (Auto) (0-0.5) K/uL Baso # (Auto) (0-0.2) K/uL PT (9.0-12.0) Seconds INR (0.9-1.1) APTT (21.0-31.0) Seconds PTT Ratio D-Dimer 920 H* (0-500) ug/L FEU VBG pH (7.36-7.41) VBG pCO2 (38-50) mmHg VBG pO2 mmHg VBG HCO3 mmol/L VBG O2 Saturation % VBG Base Excess mEq/L Barometric Pressure mm/Hg Sodium (136-145) mmol/L Potassium (3.5-5.1) mmol/L Chloride (98-107) mmol/L Carbon Dioxide (21-32) mmol/L Anion Gap (3-11) BUN (7-18) mg/dl Creatinine (0.6-1.2) mg/dl Est Cr Clr Drug Dosing ml/min Est GFR ( Amer) Est GFR (Non-Af Amer) BUN/Creatinine Ratio (10-20) Glucose (70-99) mg/dl Lactate (0.4-2.0) mmol/L Calcium (8.5-10.1) mg/dl Magnesium (1.8-2.4) mg/dl Total Bilirubin (0.2-1) mg/dl AST (15-37) U/L ALT (12-78) U/L Alkaline Phosphatase (45-117) U/L Troponin I (0-0.045) ng/ml Total Protein (6.4-8.2) gm/dl Albumin (3.4-5.0) gm/dl Globulin (2.5-4.0) gm/dl Albumin/Globulin Ratio (0.9-2) Procalcitonin (0-0.5) ng/ml Urine Color Urine Appearance (Clear) Urine pH (4.5-7.5) Ur Specific [place] (1.000-1.030) Urine Protein (Negative) Urine Glucose (UA) (Negative) Urine Ketones (Negative) Urine Blood (Negative) Urine Nitrite (Negative) Urine Bilirubin (Negative) Urine Urobilinogen (Negative) Ur Leukocyte Esterase (Negative) Adenovirus (PCR) Not Detected (NotDetected) B. pertussis DNA (PCR) Not Detected (NotDetected) B.parapertussis DNA PCR Not Detected (NotDetected) C. pneumoniae DNA (PCR) Not Detected (NotDetected) Coronavirus OC43 (PCR) Not Detected (NotDetected) Coronavirus HKU1 (PCR) Not Detected (NotDetected) Coronavirus 229E (PCR) Not Detected (NotDetected) Coronavirus NL63 (PCR) Not Detected (NotDetected) Human Metapneumovir PCR Not Detected (NotDetected) Influenza Type A (PCR) Not Detected Neg for Influ A (NotDetected) Influenza Type B (PCR) Not Detected Neg for Influ B (NotDetected) M. pneumoniae (PCR) Not Detected (NotDetected) Parainfluenza 1 (PCR) Not Detected (NotDetected) Parainfluenza 2 (PCR) Not Detected (NotDetected) Parainfluenza 3 (PCR) Not Detected (NotDetected) Parainfluenza 4 (PCR) Not Detected (NotDetected) RSV (PCR) Not Detected (NotDetected) Entero/Rhino (PCR) Not Detected (NotDetected) 01/30/20 Range/Units 20:15 WBC (4.8-10.8) K/uL RBC (4.2-5.4) M/uL Hgb (12.0-16.0) g/dL Hct (37-47) % MCV (80-100) fL MCH (25-34) pg MCHC (32-36) g/dL RDW Std Deviation (36.4-46.3) fL RDW Coeff of [place] (11.5-14.5) % Plt Count (130-400) K/uL MPV (7.4-10.4) fL Immature Gran % (Auto) % Neut % (Auto) % Lymph % (Auto) % [place] % (Auto) % Eos % (Auto) % Baso % (Auto) % Immature Gran # (Auto) (0.00-0.02) K/uL Neut # (Auto) (1.4-6.5) K/uL Lymph # (Auto) (1.2-3.4) K/uL [place] # (Auto) (0.11-0.59) K/uL Eos # (Auto) (0-0.5) K/uL Baso # (Auto) (0-0.2) K/uL PT (9.0-12.0) Seconds INR (0.9-1.1) APTT (21.0-31.0) Seconds PTT Ratio D-Dimer (0-500) ug/L FEU VBG pH (7.36-7.41) VBG pCO2 (38-50) mmHg VBG pO2 mmHg VBG HCO3 mmol/L VBG O2 Saturation % VBG Base Excess mEq/L Barometric Pressure mm/Hg Sodium (136-145) mmol/L Potassium (3.5-5.1) mmol/L Chloride (98-107) mmol/L Carbon Dioxide (21-32) mmol/L Anion Gap (3-11) BUN (7-18) mg/dl Creatinine (0.6-1.2) mg/dl Est Cr Clr Drug Dosing ml/min Est GFR ( Amer) Est GFR (Non-Af Amer) BUN/Creatinine Ratio (10-20) Glucose (70-99) mg/dl Lactate (0.4-2.0) mmol/L Calcium (8.5-10.1) mg/dl Magnesium (1.8-2.4) mg/dl Total Bilirubin (0.2-1) mg/dl AST (15-37) U/L ALT (12-78) U/L Alkaline Phosphatase (45-117) U/L Troponin I (0-0.045) ng/ml Total Protein (6.4-8.2) gm/dl Albumin (3.4-5.0) gm/dl Globulin (2.5-4.0) gm/dl Albumin/Globulin Ratio (0.9-2) Procalcitonin (0-0.5) ng/ml Urine Color Yellow Urine Appearance Clear (Clear) Urine pH 6.0 (4.5-7.5) Ur Specific [place] 1.015 (1.000-1.030) Urine Protein Negative (Negative) Urine Glucose (UA) Negative (Negative) Urine Ketones Negative (Negative) Urine Blood Negative (Negative) Urine Nitrite Negative (Negative) Urine Bilirubin Negative (Negative) Urine Urobilinogen Negative (Negative) Ur Leukocyte Esterase Negative (Negative) Adenovirus (PCR) (NotDetected) B. pertussis DNA (PCR) (NotDetected) B.parapertussis DNA PCR (NotDetected) C. pneumoniae DNA (PCR) (NotDetected) Coronavirus OC43 (PCR) (NotDetected) Coronavirus HKU1 (PCR) (NotDetected) Coronavirus 229E (PCR) (NotDetected) Coronavirus NL63 (PCR) (NotDetected) Human Metapneumovir PCR (NotDetected) Influenza Type A (PCR) (NotDetected) Influenza Type B (PCR) (NotDetected) M. pneumoniae (PCR) (NotDetected) Parainfluenza 1 (PCR) (NotDetected) Parainfluenza 2 (PCR) (NotDetected) Parainfluenza 3 (PCR) (NotDetected) Parainfluenza 4 (PCR) (NotDetected) RSV (PCR) (NotDetected) Entero/Rhino (PCR) (NotDetected) Imaging Data Radiologist's Impression: XR chest 1V portable CLINICAL HISTORY: SEPSIS dyspnea COMPARISON STUDY: 07/30/2019 FINDINGS: Mild chronic stable cardiomegaly. Central catheter in superior vena cava. Chronic bibasilar interstitial change. Chronic left basilar pleural reactive change. IMPRESSION: Chronic stable cardiomegaly with chronic bibasilar interstitial as well as pleural thickening type change. ACT 112: Negative or not required by law. The above report was generated using voice recognition software. It may contain grammatical, syntax or spelling errors. Electronically signed by: Dann Felix M.D. 01/30/2020 6:24 PM Dictated: 01/30/201822 Transcribed: 01/30/201822 ECG Data Attestation: I personally reviewed and interpreted this ECG as follows: Indication: + SOB/dyspnea Rate (beats per minute): 82 Additional Comments: EKG was obtained in the emergency department. My interpretation is normal sinus rhythm at [address]pm[address] Inferior and lateral ST segment depressions were noted. There was no ectopy. ST segment abnormalities are new compared to a tracing from August 23, 2019. Blood Pressure Blood Pressure Findings: Elevated blood pressure Blood Pressure Disposition: further management by hospitalist MDM Narrative The patient is a 70-year-old female who presented to the emergency department for an evaluation of cough. The patient had low-grade fever and cough. She was at her primary care physician's office and was also noted to have hypoxia. She was sent to the emergency department specifically for an evaluation as well as a work-up for possible coronavirus. The patient was found to have a chest x-ray which revealed no acute infiltrate. She was feeling much better on supplemental oxygen. I discussed the patient's laboratory and radiographic studies with her. Because of her hypoxia as well as the possibility for underlying coronavirus I discussed her case with the on-call [facility] hospitalist group. They have agreed to evaluate the patient in the emergency department for further management and disposition. Impression & Plan Hypoxia, Cough, Headache Discharge Plan Visit Data *Final* Discharge Date/Time: 01/30/20 23:41 Chief Complaint: Shortness of Breath/Dyspnea Stated Complaint: SOB, FEVER ED Provider: Alexx Ortiz Discharge Problem: Hypoxia, Cough, Headache Patient Disposition: Admitted As Inpatient Condition: Good Discharge Instructions Interventions: ED Discharge Assessment Last Done: 01/30/20 23:41 Discharge Problem: Headache Qualifiers: Headache type: unspecified Headache chronicity pattern: acute headache Intrac tability: not intractable Qualified Code(s): R51 - Headache
[2020-01-30 17:51] LABS: Basophils # (auto) 0.04 K/uL (0-0.2); Basophils % (auto) 0.4 %; Eosinophils # (auto) 0.33 K/uL (0-0.5); Eosinophils % (auto) 3.1 %; Hemoglobin 11.8 g/dL (12.0-16.0); Immature Granulocytes # (auto) 0.01 K/uL (0.00-0.02); Immature Granulocytes % (auto) 0.1 %; Lymphocytes % (auto) 27.1 %; Mean Corpuscular Hemoglobin 29.2 pg (25-34); Mean Corpuscular Hgb Conc 34.7 g/dL (32-36); Mean Corpuscular Volume 84.2 fL (80-100); Mean Platelet Volume 9.8 fL (7.4-10.4); Monocytes # (auto) 1.32 K/uL (0.11-0.59); Monocytes % (auto) 12.3 %; Neutrophils # (auto) 6.12 K/uL (1.4-6.5); Platelet Count 253 K/uL (130-400); RDW Coefficient of Variation 14.7 % (11.5-14.5); RDW Standard Deviation 44.4 fL (36.4-46.3); Red Blood Count 4.04 M/uL (4.2-5.4); White Blood Count 10.72 K/uL (4.8-10.8)
[2020-01-30 17:53] LABS: Base Excess VBG 9.1 mEq/L; pH VBG 7.42 (7.36-7.41)
[2020-01-30 18:04] LABS: INR 1.1 (0.9-1.1); Partial Thromboplastin Ratio 0.9; Partial Thromboplastin Time 25.3 Seconds (21.0-31.0); Prothrombin Time 11.2 Seconds (9.0-12.0)
[2020-01-30 18:22] LABS: Alanine Aminotransferase 52 U/L (12-78); Albumin Globulin Ratio 0.9 (0.9-2); Albumin Level 3.2 gm/dl (3.4-5.0); Alkaline Phosphatase 91 U/L (45-117); Aspartate Aminotransferase 110 U/L (15-37); Bilirubin,Total 0.6 mg/dl (0.2-1); Blood Urea Nitrogen 18 mg/dl (7-18); Calcium 8.3 mg/dl (8.5-10.1); Carbon Dioxide 33 mmol/L (21-32); Chloride 98 mmol/L (98-107); Creatinine Clr Calc Pharmacy 61.2 ml/min; Est GFR (African American) 72.1; Est GFR (Non-African American) 62.2; Globulin 3.5 gm/dl (2.5-4.0); Glucose 133 mg/dl (70-99); Magnesium 1.8 mg/dl (1.8-2.4); Potassium 2.3 mmol/L (3.5-5.1); Sodium 135 mmol/L (136-145); Total Protein 6.7 gm/dl (6.4-8.2); Troponin I < 0.015 ng/ml (0-0.045)
[2020-01-30] MEDS ORDERED: POTASSIUM CHLORIDE / WTR 10 MEQ/100 ML PLCT IV ONE (18:23)
[2020-01-30] MEDS ORDERED: POTASSIUM CHLORIDE 10 MEQ TABCR PO STA ×2 (18:23→20:39)
--- NOTE | 2020-01-30 18:26 | XRay Report ---
XR chest 1V portable CLINICAL HISTORY: SEPSIS dyspnea COMPARISON STUDY: 07/30/2019 FINDINGS: Mild chronic stable cardiomegaly. Central catheter in superior vena cava. Chronic bibasilar interstitial change. Chronic left basilar pleural reactive change. IMPRESSION: Chronic stable cardiomegaly with chronic bibasilar interstitial as well as pleural thick ening type change. ACT 112: Negative or not required by law. The above report was generated using voice recognition software. It may contain grammatical, syntax or spelling errors. Electronically signed by: Dann Felix M.D. 01/30/2020 6:24 PM
[2020-01-30 18:27] LABS: Influenza A virus by PCR Neg for Influ A (Neg); Influenza B virus by PCR Neg for Influ B (Neg)
[2020-01-30 19:34] LABS: Adenovirus PCR Not Detected (NotDetected); Bordetella parapertussis PCR Not Detected (NotDetected); Bordetella pertussis PCR Not Detected (NotDetected); Chlamydia pneumoniae PCR Not Detected (NotDetected); Coronavirus 229E PCR Not Detected (NotDetected); Coronavirus HKU1 PCR Not Detected (NotDetected); Coronavirus NL63 PCR Not Detected (NotDetected); Coronavirus OC43PCR Not Detected (NotDetected); Human Metapneumovirus PCR Not Detected (NotDetected); Influenza A PCR Not Detected (NotDetected); Influenza B PCR Not Detected (NotDetected); Mycoplasma pneumoniae PCR Not Detected (NotDetected); Parainfluenza Virus 1 PCR Not Detected (NotDetected); Parainfluenza Virus 2 PCR Not Detected (NotDetected); Parainfluenza Virus 3 PCR Not Detected (NotDetected); Parainfluenza Virus 4 PCR Not Detected (NotDetected); Respiratory Syncytial VirusPCR Not Detected (NotDetected); Rhinovirus/Enterovirus PCR Not Detected (NotDetected)
[2020-01-30 20:29] LABS: Appearance Urine Clear (Clear); Bilirubin Urine Negative (Negative); Blood Urine Negative (Negative); Color Urine Yellow; Glucose Urine UA Negative (Negative); Ketones Urine Negative (Negative); Leukocyte Esterase Urine Negative (Negative); Nitrite Urine Negative (Negative); Protein Urine Negative (Negative); Specific Gravity Urine 1.015 (1.000-1.030); Urobilinogen Urine Negative (Negative)
[2020-01-30 20:32] LABS: D Dimer 920 ug/L FEU (0-500)
[2020-01-30] MEDS ORDERED: ALBUT/IPRATROP 3MG/0.5MG NEB 3 ML VIAL NEB STA (20:41)
[2020-01-30] MEDS ORDERED: PROMETHAZINE HCL 12.5 MG in SODIUM CHLORIDE 0.9% 50 ML IV PRN (21:36)
[2020-01-30] MEDS ORDERED: MoRPHine SULFATE 2 MG/ML CARP IV STA (21:36)
--- NOTE | 2020-01-30 21:37 | History & Physical Report ---
Date of Service January 30, 2020 Assessment & Plan (1) Acute hypoxemic respiratory failure: Differentials include : Viral pneumonitis (rule out COVID-19) Recurrent PE Hypokalemia secondary to illness Acute migraine attack prior to illness hx CAD sp stenting HTN, stable hyperlipidemia on statin Rx PTSD/mood disorder hx post polio syndrome/scoliosis as per records chronic pain on Fentanyl patch prediabetes as per records, hemoglobin A1c of 6.19 November 2019 New onset anemia Medical telemetry Supplemental O2 Supportive management for viral pneumonitis for now until COVID-19 testing results available Isolation precautions until COVID-19 testing results back. VQ scan, LE venous Dopplers for PE work-up (CT angio precluded by unavailability of requisite IV access for contrast dye) IV Heparin until recurrent PE/DVT ruled out Replace potassium Imitrex for migraine attack, judicious narcotic use Anemia work-up, transfuse if hemoglobin less than 8 and or for symptomatic anemia DVT prophylaxis. IV heparin Full code Text document was generated using [employer] voice recognition software. It may contain grammatical or spelling errors. Kindly contact undersigned for clarification of any documentation item in question. History of Present Illness Chief Complaint: Shortness of breath Primary Care Provider: Charanjit Spann MD History obtained from patient and records. Medical history significant for CAD sp stenting, HTN, hyperlipidemia, PTSD/mood disorder, post polio syndrome/scoliosis as per records, chronic pain on Fentanyl patch, prediabetes as per records, migraine. Recent confinement November 2019 for low back pain. Few days history of dry cough, low-grade fever at home, and shortness of breath. No chest pain. No known sick contacts/recent out-of-town travel. Denies abdominal pain/black/bloody stools. Good BM. Fair appetite. Worsening migraine symptoms with new onset neck pain without antecedent trauma. O2 sats 80s upon arrival at the ER. 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 Allergies Allergy/AdvReac Type Severity Reaction Status Date / Time latex Allergy Intermediate Rash Verified 01/30/20 19:40 nickel Allergy Intermediate SEVERE Verified 01/30/20 19:40 DERMATITIS NSAIDS (Non-Steroidal Allergy Intermediate HX OF Verified 01/30/20 19:40 Anti-Inflamma BLEEDING ULCERS-TO AVOID aspirin AdvReac Intermediate bleeding Verified 01/30/20 19:40 ulcers Home Medications Home Medications Medication Instructions Recorded Confirmed Type atorvastatin [Lipitor] 40 mg PO QAM 12/13/18 01/30/20 History buspirone 10 mg PO TID 12/13/18 01/30/20 History levothyroxine 75 mcg PO QAM 12/13/18 01/30/20 History pramipexole [Mirapex] 0.125 mg PO HS PRN 01/25/19 01/30/20 History tramadol [Ultram] 50 mg PO Q8 PRN 01/25/19 01/30/20 History potassium chloride [Klor-Con M20] 20 meq PO BID 03/30/19 01/30/20 History ondansetron HCl [Zofran] 8 mg PO Q6H PRN 05/12/19 01/30/20 History polyethylene glycol 3350 17 g PO DAILY PRN 05/12/19 01/30/20 History prochlorperazine maleate 10 mg PO BID PRN 05/12/19 01/30/20 History promethazine 25 mg PO Q6H PRN 05/12/19 01/30/20 History Calcium 600 + D(3) 1 cap PO BID 05/23/19 01/30/20 History Ocuvite Adult 50 Plus 1 cap PO QAM 05/23/19 01/30/20 History aspirin [Aspir-81] 81 mg PO QAM 05/23/19 01/30/20 History epinephrine 0.3 mg IM Q3H PRN 05/23/19 01/30/20 History magnesium oxide 400 mg PO BID 05/23/19 01/30/20 History nitroglycerin [Nitrostat] 0.3 mg SUBLINGUAL UD PRN 05/23/19 01/30/20 History nystatin 1 applic TOPICAL TID PRN 05/23/19 01/30/20 History olopatadine 1 drp OPB QAM 05/23/19 01/30/20 History fentanyl [Duragesic] 1 patch TOPICAL [id number] 05/26/19 01/30/20 History fentanyl [Duragesic] 1 patch TOPICAL [id number] 05/26/19 01/30/20 History mirtazapine 7.5 mg PO HS 07/03/19 01/30/20 History pantoprazole 40 mg PO QAM 07/03/19 01/30/20 History Latuda 20 mg PO QPM 08/04/19 01/30/20 History amlodipine [Norvasc] 10 mg PO QAM 08/21/19 01/30/20 History hydroxyzine HCl 100 mg PO HS 08/21/19 01/30/20 History acetaminophen 1,000 mg PO Q8 7 Days #42 tab 11/20/19 01/30/20 Rx gabapentin 600 mg PO HS 01/30/20 01/30/20 History ibuprofen 600 mg PO Q8H PRN 01/30/20 01/30/20 History Past Med/Surg History Medical History Anemia (Chronic) HX OF Anxiety (Chronic) CAD (coronary artery disease) (Chronic) 2017-BMS to LAD Cervical spondylolysis (Chronic) Chronic pain (Chronic) Colitis (Chronic) Cyclical vomiting (Chronic) Deep vein thrombosis (Chronic) 4 YEARS AGO Degenerative disc disease (Chronic) Depression (Chronic) Dyslipidemia (Chronic) Hyperlipidemia (Chronic) Hypertension (Chronic) Hypothyroidism (Chronic) Migraine (Chronic) Mood disorder (Chronic) Myocardial Infarction (Chronic) 2 YEARS AGO Osteoarthritis (Chronic) Post traumatic stress disorder (Chronic) Pulmonary embolism (Chronic) 2 YEARS OLD (UNSURE OF REASON) Restless leg syndrome (Chronic) Scoliosis (Chronic) Surgical History Fusion of spine (Chronic) LUMBAR H/O ovarian cystectomy (Chronic) H/O repair of right rotator cuff (Chronic) H/O spinal fusion (Chronic) "1st surgery in [place], then multiple surgeries Dr. Catherine at [facility]" History of adenoidectomy (Chronic) History of anesthesia reaction (Chronic) WOKE UP IN MIDDLE OF SPINAL SURGERIES History of appendectomy (Chronic) History of cataract surgery (Chronic) LEFT AND RIGHT History of heart artery stent (Chronic) 2017- STENT PLACED AT [facility] (DR. 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 Beliefs That Will Affect Care: None marital status: Single Current Living Situation: Alone current occupational status: retired Other Information That Helps Us Care for You: No Feels Safe at Home: Yes Safety Concerns: Feels Safe At This Time Smoking Status: Never smoker Second Hand Exposure: No ; Hx Alcohol Use: No Hx Substance Use: No Review of Systems Review of Systems: As per HPI, all 10 systems reviewed, all other ROS negative Physical Exam Physical Exam: GENERAL: uncomfortable, obese, no respiratory distress SKIN: Normal color, warm HEENT: pink palpebral conjunctivae, no ptosis, dry buccal mucosa, nasal cannula in place NECK : Short neck, some limitation in neck motion CHEST : Decreased breath sounds, no tenderness HEART : RRR, no obvious murmurs ABDOMEN: Some distention, nontender EXTREMITIES : Minimal LE swelling, no LE tenderness, no other conspicuous deformities noted NEUROLOGIC : Coherent, no facial asymmetry, no other gross focality Results & Data Results & Data ([facility]) Vital Signs (Past 12 Hours) Vital Signs Temp Pulse Pulse Resp BP BP Pulse Ox 01/30/20 21:18 88 22 94 01/30/20 20:31 118/66 95 01/30/20 20:00 18 147/75 H 94 01/30/20 19:31 86 12 136/81 90 01/30/20 19:02 23 145/50 H 95 01/30/20 18:43 37.1 C 81 16 115/86 91 01/30/20 16:53 37.2 C 90 14 126/84 83 L Laboratory Results Laboratory Results WBC 10.72 K/uL (4.8-10.8) 01/30/20 17:25 RBC 4.04 M/uL (4.2-5.4) L 01/30/20 17:25 Hgb 11.8 g/dL (12.0-16.0) L 01/30/20 17:25 Hct 34.0 % (37-47) L 01/30/20 17:25 MCV 84.2 fL (80-100) 01/30/20 17:25 MCH 29.2 pg (25-34) 01/30/20: MCHC 34.7 g/dL (32-36) 01/30/20: RDW Std Deviation 44.4 fL (36.4-46.3) 01/30/20: RDW Coeff of [place] 14.7 % (11.5-14.5) H 01/30/20: Plt Count 253 K/uL (130-400) 01/30/20: MPV 9.8 fL (7.4-10.4) 01/30/20: Immature Gran % (Auto) 0.1 % 01/30/20: Neut % (Auto) 57.0 % 01/30/20: Lymph % (Auto) 27.1 % 01/30/20: [place] % (Auto) 12.3 % 01/30/20: Eos % (Auto) 3.1 % 01/30/20: Baso % (Auto) 0.4 % 01/30/20: Immature Gran # (Auto) 0.01 K/uL (0.00-0.02) 01/30/20: Neut # (Auto) 6.12 K/uL (1.4-6.5) 01/30/20: Lymph # (Auto) 2.90 K/uL (1.2-3.4) 01/30/20: [place] # (Auto) 1.32 K/uL (0.11-0.59) H 01/30/20: Eos # (Auto) 0.33 K/uL (0-0.5) 01/30/20: Baso # (Auto) 0.04 K/uL (0-0.2) 01/30/20: PT 11.2 Seconds (9.0-12.0) 01/30/20: INR 1.1 (0.9-1.1) 01/30/20: APTT 25.3 Seconds (21.0-31.0) 01/30/20: PTT Ratio 0.9 01/30/20: D-Dimer 920 ug/L FEU (0-500) H* 01/30/20 17:30 VBG pH 7.42 (7.36-7.41) H 01/30/20 17:25 VBG pCO2 56 mmHg (38-50) H 01/30/20 17:25 VBG pO2 43 mmHg 01/30/20 17:25 VBG HCO3 35 mmol/L 01/30/20 17:25 VBG O2 Saturation 74.0 % 01/30/20 17:25 VBG Base Excess 9.1 mEq/L 01/30/20 17:25 Barometric Pressure 724.0 mm/Hg 01/30/20 17:25 Sodium 135 mmol/L (136-145) L 01/30/20 17:25 Potassium 2.3 mmol/L (3.5-5.1) L* 01/30/20 17:25 Chloride 98 mmol/L (98-107) 01/30/20 17:25 Carbon Dioxide 33 mmol/L (21-32) H 01/30/20 17:25 Anion Gap 5.0 (3-11) 01/30/20 17:25 BUN 18 mg/dl (7-18) 01/30/20 17:25 Creatinine 0.92 mg/dl (0.6-1.2) 01/30/20 17:25 Est Cr Clr Drug Dosing 61.2 ml/min 01/30/20 17:25 Est GFR ( Amer) 72.1 01/30/20 17:25 Est GFR (Non-Af Amer) 62.2 01/30/20 17:25 BUN/Creatinine Ratio 19.0 (10-20) 01/30/20 17:25 Glucose 133 mg/dl (70-99) H 01/30/20 17:25 Lactate 1.1 mmol/L (0.4-2.0) 01/30/20 17:25 Calcium 8.3 mg/dl (8.5-10.1) L 01/30/20 17:25 Magnesium 1.8 mg/dl (1.8-2.4) 01/30/20 17:25 Total Bilirubin 0.6 mg/dl (0.2-1) 01/30/20 17:25 AST 110 U/L (15-37) H 01/30/20 17:25 ALT 52 U/L (12-78) 01/30/20 17:25 Alkaline Phosphatase 91 U/L (45-117) 01/30/20 17:25 Troponin I < 0.015 ng/ml (0-0.045) 01/30/20 17:25 Total Protein 6.7 gm/dl (6.4-8.2) 01/30/20: Albumin 3.2 gm/dl (3.4-5.0) L 01/30/20: Globulin 3.5 gm/dl (2.5-4.0) 01/30/20: Albumin/Globulin Ratio 0.9 (0.9-2) 01/30/20: Procalcitonin < 0.05 ng/ml (0-0.5) 01/30/20: Urine Color Yellow 01/30/20 20:15 Urine Appearance Clear (Clear) 01/30/20 20:15 Urine pH 6.0 (4.5-7.5) 01/30/20 20:15 Ur Specific [place] 1.015 (1.000-1.030) 01/30/20 20:15 Urine Protein Negative (Negative) 01/30/20 20:15 Urine Glucose (UA) Negative (Negative) 01/30/20 20:15 Urine Ketones Negative (Negative) 01/30/20 20: Urine Blood Negative (Negative) 01/30/20 20:15 Urine Nitrite Negative (Negative) 01/30/20 20:15 Urine Bilirubin Negative (Negative) 01/30/20 20:15 Urine Urobilinogen Negative (Negative) 01/30/20 20:15 Ur Leukocyte Esterase Negative (Negative) 01/30/20 20:15 Adenovirus (PCR) Not Detected (NotDetected) 01/30/20 17:25 B. pertussis DNA (PCR) Not Detected (NotDetected) 01/30/20 17:25 B.parapertussis DNA PCR Not Detected (NotDetected) 01/30/20 17:25 C. pneumoniae DNA (PCR) Not Detected (NotDetected) 01/30/20 17:25 Coronavirus OC43 (PCR) Not Detected (NotDetected) 01/30/20 17:25 Coronavirus HKU1 (PCR) Not Detected (NotDetected) 01/30/20 17:25 Coronavirus 229E (PCR) Not Detected (NotDetected) 01/30/20 17:25 Coronavirus NL63 (PCR) Not Detected (NotDetected) 01/30/20 17:25 Human Metapneumovir PCR Not Detected (NotDetected) 01/30/20 17:25 Influenza Type A (PCR) Neg for Influ A (Neg) 01/30/20 17:25 Influenza Type A (PCR) Not Detected (NotDetected) 01/30/20 17:25 Influenza Type B (PCR) Neg for Influ B (Neg) 01/30/20 17:25 Influenza Type B (PCR) Not Detected (NotDetected) 01/30/20 17:25 M. pneumoniae (PCR) Not Detected (NotDetected) 01/30/20 17:25 Parainfluenza 1 (PCR) Not Detected (NotDetected) 01/30/20 17:25 Parainfluenza 2 (PCR) Not Detected (NotDetected) 01/30/20 17:25 Parainfluenza 3 (PCR) Not Detected (NotDetected) 01/30/20 17:25 Parainfluenza 4 (PCR) Not Detected (NotDetected) 01/30/20 17:25 RSV (PCR) Not Detected (NotDetected) 01/30/20 17:25 Entero/Rhino (PCR) Not Detected (NotDetected) 01/30/20 17:25 Diagnostic Findings Chest x-ray : Chronic stable cardiomegaly with chronic bibasilar interstitial as well as pleural thickening type change. CT head:No acute intracranial abnormality. CT cervical spine:No fractures within the cervical spine. Generalized degenerative change EKG as per my interpretation : Rate 80, NSR, LAD, LAFB, inferior infarct, T wave flattening inferior, and septal leads
[2020-01-30] MEDS ORDERED: OPTIRAY 320 125ml IV PRN (21:45)
[2020-01-30] MEDS ORDERED: SUMAtriptan succinate 6 MG/0.5 ML VIAL SQ STA (22:39)
--- NOTE | 2020-01-30 22:40 | CT Scan Report ---
CT head/brain wo con CT DOSE: 729.78 mGycm HISTORY: Mental status change avalos TECHNIQUE: Multiaxial CT images of the head were performed without the use of intravenous contrast. A dose lowering technique was utilized adhering to the principles of ALARA. Comparison: 07/03/2019 Findings: The paranasal sinuses and mastoid air cells are clear. The calvarium and skull base are int act. The ventricles and sulci are within normal limits. There is no mass, hematoma, midline shift, or acute infarct. Impression: No acute intracranial abnormality. ACT 112: Negative or not required by law. The above report was generated using voice recognition software. It may contain grammatical, syntax or spelling errors. Electronically signed by: Dann Felix M.D. 01/30/2020 10:39 PM
--- NOTE | 2020-01-30 22:42 | CT Scan Report ---
CT cervical spine wo con CT DOSE: 418.06 mGycm HISTORY: Pain neck pain TECHNIQUE: Multiaxial CT images of the cervical spine were performed and reformatted in the sagittal and coronal plane without the use of contrast. A dose lowering technique was utilized adhering to th e principles of ALARA. COMPARISON: None. FINDINGS: No fractures. No subluxation. Prevertebral soft tissues and the C1-C2 interval are intact. No pneumothorax. Moderate generalized degenerative change throughout. IMPRESSION:: No fractures within the cervical spine. Generalized degenerative change ACT 112: Negative or not required by law. The above report was generated using voice recognition software. It may contain grammatical, syntax or spelling errors. Electronically signed by: Dann Felix M.D. 01/30/2020 10:41 PM
[2020-01-30] MEDS ORDERED: KETOROLAC TROMETHAMINE 15 MG/ML VIAL IV ONE (22:50)
[2020-01-30] MEDS ORDERED: POTASSIUM CHLORIDE 10 MEQ TABCR PO ONE (23:00)
[2020-01-30] MEDS ORDERED: Heparin IV Standard *NO* Bolus IV SCH (23:00)
[2020-01-30] MEDS: MAGNESIUM SULFATE / D5W 1 GM/100 ML BAG IV SCH (23:07)
[2020-01-30] MEDS: TRAMADOL HCL 50 MG TABLET PO PRN (23:07)
[2020-01-30] MEDS ORDERED: HEPARIN 25000 UNIT/500 ML D5W IV ONE (23:12)
[2020-01-30] MEDS: HEPARIN SODIUM/DEXTROSE 25,000 UNITS/500 ML BAG IV SCH (23:25)
[2020-01-31] MEDS ORDERED: TIZANIDINE HCL 4 MG TABLET PO PRN (00:26)
[2020-01-31] MEDS ORDERED: POLYETHYLENE (MIRALAX) 17 GM PACK PO PRN (00:26)
[2020-01-31] MEDS ORDERED: ACETAMINOPHEN 325 MG TAB PO PRN (00:26)
[2020-01-31] MEDS ORDERED: ALBUT/IPRATROP 3MG/0.5MG NEB 3 ML VIAL NEB PRN (00:26)
[2020-01-31] MEDS ORDERED: PRAMIPEXOLE DIHYDROCHLO 0.25 MG TAB PO PRN (00:26)
[2020-01-31] MEDS ORDERED: OXYCODONE HCL IR 5 MG TAB (IMMEDIATE RELEASE) PO PRN (00:26)
[2020-01-31] MEDS ORDERED: IBUPROFEN 600 MG TAB PO PRN (00:34)
[2020-01-31] MEDS ORDERED: POTASSIUM CHLORIDE 10 MEQ TABCR PO ONE (01:00)
[2020-01-31] MEDS ORDERED: POTASSIUM CHLORIDE 40 MEQ in SODIUM CHLORIDE 0.9% 1000ML 1,000 ML IV ONE (01:00)
[2020-01-31] MEDS: guaiFENesin 600 MG TABCR PO SCH ×3 (01:35→19:59)
[2020-01-31] MEDS: GABAPENTIN 600 MG TAB PO SCH ×2 (01:36→19:56)
[2020-01-31] MEDS ORDERED: HEPARIN 100 UNIT/ML 5ML FLUSH FLUSH PRN (01:43)
[2020-01-31] MEDS: MAGNESIUM SULFATE / D5W 1 GM/100 ML BAG IV SCH (01:53)
[2020-01-31] MEDS: LEVOTHYROXINE SODIUM 75 MCG TABLET PO SCH (06:22)
[2020-01-31] MEDS: TRAMADOL HCL 50 MG TABLET PO PRN ×2 (06:29→17:15)
[2020-01-31] MEDS ORDERED: XOPENEX/ATROVENT 1.25mg/0.5MG NEB COMBO NEB SCH (07:00)
[2020-01-31] MEDS ORDERED: LEVALBUTEROL 1.25MG/0.5ML NEB INH SCH (07:00)
[2020-01-31] MEDS ORDERED: IPRATROPIUM BROMIDE NEB SOLN 0.02% 2.5 ML VIAL INH SCH (07:00)
--- NOTE | 2020-01-31 07:00 | Ultrasound Report ---
ULTRASOUND BILATERAL LOWER EXTREMITY VENOUS CLINICAL HISTORY: Lower extremity edema. COMPARISON STUDY: Right lower extremity venous ultrasound dated 11/18/2019. Bilateral lower extremity venous ultrasound dated 03/27/2017. TECHNIQUE: Real-time, grayscale, and color Doppler sonography of the deep veins of the right and left lower extremity was performed from the inguinal crease to the calf. Compression and augmentation wer e utilized. FINDINGS: Right lower extremity: There is age indeterminant nonocclusive deep venous thrombosis identified in t he right calf within one of the posterior tibial veins. The Remaining calf vessels are patent. The co mmon femoral, superficial femoral, and popliteal veins are patent and normally compressible. The grea ter saphenous vein and the profunda femoris vein at the junction with the common femoral vein are cachorro ar. Left lower extremity: There is no sonographic evidence of deep venous thrombosis in the left lower ex tremity. The common femoral, superficial femoral, and popliteal veins are patent and normally philippe sible. The greater saphenous vein and the profunda femoris vein at the junction with the common femor al vein are clear. The visualized calf veins are patent. IMPRESSION: 1. There is age indeterminant and nonocclusive deep venous thrombosis identified in the right calf wi thin 1 of the posterior tibial veins. 2. The remaining deep veins of the right lower extremity are clear. 3. There is no sonographic evidence of deep venous thrombosis in the left lower extremity. ACT 112: Negative or not required by law. Electronically signed by: Ivan Smith M.D. 01/31/2020 6:59 AM
[2020-01-31 07:24] LABS: Basophils # (auto) 0.03 K/uL (0-0.2); Basophils % (auto) 0.4 %; Eosinophils # (auto) 0.36 K/uL (0-0.5); Hematocrit (blood only) 34.1 % (37-47); Hemoglobin 11.4 g/dL (12.0-16.0); Immature Granulocytes # (auto) 0.02 K/uL (0.00-0.02); Immature Granulocytes % (auto) 0.3 %; Lymphocytes # (auto) 2.23 K/uL (1.2-3.4); Lymphocytes % (auto) 30.7 %; Mean Corpuscular Hemoglobin 28.7 pg (25-34); Mean Corpuscular Hgb Conc 33.4 g/dL (32-36); Mean Corpuscular Volume 85.9 fL (80-100); Mean Platelet Volume 9.8 fL (7.4-10.4); Monocytes # (auto) 0.74 K/uL (0.11-0.59); Monocytes % (auto) 10.2 %; Neutrophils # (auto) 3.88 K/uL (1.4-6.5); Neutrophils % (auto) 53.4 %; Platelet Count 263 K/uL (130-400); RDW Coefficient of Variation 14.9 % (11.5-14.5); RDW Standard Deviation 46.1 fL (36.4-46.3); Red Blood Count 3.97 M/uL (4.2-5.4); Reticulocyte % 2.9 % (0.5-2.0); Reticulocytes # 0.12 10^6/uL (0.02-0.10); White Blood Count 7.26 K/uL (4.8-10.8)
[2020-01-31 08:08] LABS: BUN Creatinine Ratio 18.3 (10-20); Blood Urea Nitrogen 13 mg/dl (7-18); Calcium 8.5 mg/dl (8.5-10.1); Carbon Dioxide 34 mmol/L (21-32); Chloride 104 mmol/L (98-107); Creatinine Clr Calc Pharmacy 82.8 ml/min; Est GFR (African American) 101.3; Est GFR (Non-African American) 87.4; Ferritin 65.2 ng/ml (8-388); Glucose 121 mg/dl (70-99); Iron 37 mcg/dl (35-150); Potassium 2.8 mmol/L (3.5-5.1); Sodium 141 mmol/L (136-145); Total Iron Binding Capacity 252 mcg/dl (250-450); Transferrin 206 mg/dl (200-360); Troponin I < 0.015 ng/ml (0-0.045)
[2020-01-31] MEDS ORDERED: POTASSIUM CHLORIDE 20 MEQ TABCR PO STA ×2 (08:13→16:25)
[2020-01-31] MEDS: ASPIRIN 81 MG ECTAB PO SCH (08:24)
[2020-01-31] MEDS: ATORVASTATIN 40 MG TAB PO SCH (08:24)
[2020-01-31] MEDS: AMLODIPINE BESYLATE 5 MG TAB PO SCH (08:24)
[2020-01-31] MEDS: CEROVITE ADV FORMULA TAB PO SCH (08:24)
[2020-01-31] MEDS: PANTOprazole 40 MG TAB PO SCH (08:25)
[2020-01-31] MEDS: CHECK FENTANYL PATCH PLACEMENT SCH ×6 (08:41→23:07)
[2020-01-31] MEDS ORDERED: fentaNYL 25 MCG/HR TDSY TD SCH (09:00)
[2020-01-31] MEDS ORDERED: fentaNYL 12 MCG/HR TDSY TD SCH (09:00)
[2020-01-31 10:13] LABS: Partial Thromboplastin Ratio 2.2
--- NOTE | 2020-01-31 13:21 | Hospitalist Progress Note ---
Date of Service January 31, 2020 Assessment & Plan (1) Acute hypoxemic respiratory failure: Acute respiratory failure with hypoxia H/O moderate to severe obstructive sleep apnea, nocturnal hypoxemia To R/O COVID; R/O Acute PE Unclear etiology CXR:Chronic stable cardiomegaly with chronic bibasilar interstitial as well as pleural thickening type change. Influenza screen, bio fire negative SARS coV-2: Pending Elevated D-Dimer NM Perfusion scan:pending Procalcitonin: <0.05 Troponin X 2:Negative Continue IV heparin for now Consider CTA, ECHO once COVID ruled out Continue supplemental oxygen as needed Chest pain, SOB improved and patient denies cough Continue isolation precautions till COVID-19 ruled out Age indeterminant DVT: --Venous Doppler:There is age indeterminant and nonocclusive deep venous thrombosis identified in the right calf within 1 of the posterior tibial veins. The remaining deep veins of the right lower extremity are clear. There is no sonographic evidence of deep venous thrombosis in the left lower extremity. 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 Obstructive sleep apnea Nocturnal hypoxemia CPAP at bedtime DVT Px: on IV heparin Code Status Full code Disposition Lives alone at home PT OT prior to discharge Admission and Anticipated Discharge Date Admission Date: January 30, 2020 Subjective Patient is seen and examined at bedside States feeling better today States having bilateral leg pain right greater than left Shortness of breath improved Chest pain resolved Denies any cough, dizziness, nausea, abdominal pain Review of Systems Review of Systems: All systems reviewed & are unremarkable except as noted in HPI & below Physical Exam Physical Exam: Physical Exam: Vitals signs as noted above General Appearance:Obese, no apparent distress Head: normocephalic, Atraumatic Eyes: normal inspection, EOMI Neck: supple, Trachea midline Respiratory/Chest: Normal breath sounds, CTA Cardiovascular: S1, S2, No murmur Abdomen/GI:Soft, Non tender, Bowel sounds present Extremities/Musculoskelatal:normal inspection, +Calf tender R> L Neurologic/Psych:AAOX3, grossly no focal neurological deficits Skin: normal color, warm Results & Data Results & Data ([facility]) Vital Signs (Past 12 Hours) Vital Signs Temp Pulse Pulse Resp BP Pulse Ox 01/31/20 11:37 36.6 C 76 18 114/69 92 01/31/20 08:05 20 92 01/31/20 08:00 36.9 C 80 20 123/72 86 L 01/31/20 07:18 95 H Laboratory Results Short CBC 01/30/20 01/31/20 Range/Units 17:25 06:56 WBC 10.72 7.26 (4.8-10.8) K/uL Hgb 11.8 L 11.4 L (12.0-16.0) g/dL Hct 34.0 L 34.1 L (37-47) % Plt Count 253 263 (130-400) K/uL BMP 01/30/20 01/31/20 17:25 06:56 Sodium 135 L 141 Potassium 2.3 L* 2.8 L D Chloride 98 104 Carbon Dioxide 33 H 34 H BUN 18 13 Creatinine 0.92 0.68 Glucose 133 H 121 H Calcium 8.3 L 8.5 Cardiac Enzymes 01/30/20 01/31/20 Range/Units 17:25 06:56 Troponin I < 0.015 < 0.015 (0-0.045) ng/ml Liver Function 01/30/20 Range/Units 17:25 Total Bilirubin 0.6 (0.2-1) mg/dl AST 110 H (15-37) U/L ALT 52 (12-78) U/L Alkaline Phosphatase 91 (45-117) U/L Albumin 3.2 L (3.4-5.0) gm/dl Urine 01/30/20 Range/Units 20:15 Urine Color Yellow Urine Appearance Clear (Clear) Urine pH 6.0 (4.5-7.5) Ur Specific Mcdonald 1.015 (1.000-1.030) Urine Protein Negative (Negative) Urine Glucose (UA) Negative (Negative)
[2020-01-31] MEDS ORDERED: ARTIFICIAL TEARS OP PRN (14:13)
[2020-01-31 15:47] LABS: BUN Creatinine Ratio 11.7 (10-20); Calcium 8.5 mg/dl (8.5-10.1); Creatinine Clr Calc Pharmacy 70.4 ml/min; Est GFR (African American) 85.4; Est GFR (Non-African American) 73.7; Potassium 3.1 mmol/L (3.5-5.1)
--- NOTE | 2020-01-31 15:53 | Electrocardiogram Report ---
Test Reason : Blood Pressure : / mmHG Vent. Rate : 082 BPM Atrial Rate : 082 BPM P-R Int : 184 ms QRS Dur : 102 ms QT Int : 384 ms P-R-T Axes : 057 -17 038 degrees QTc Int : 448 ms Normal sinus rhythm Low voltage QRS Inferior infarct (cited on or before 18-JUN-2019) Cannot rule out Anterior infarct , age undetermined Abnormal ECG When compared with ECG of 23-AUG-2019 04:59, QRS axis Shifted right Minimal criteria for Anterior infarct are now Present Confirmed by Broderick Stewart ([id number]) on 01/31/2020 3:52:49 PM Referred By: Charanjit Spann Confirmed By:Broderick Stewart
[2020-01-31] MEDS: HEPARIN SODIUM/DEXTROSE 25,000 UNITS/500 ML BAG IV SCH (17:16)
[2020-01-31] MEDS ORDERED: LURASIDONE HCL 40 MG TAB PO SCH (21:00)
[2020-01-31] MEDS ORDERED: MIRTAZAPINE TAB 15 MG TAB PO SCH (21:00)
[2020-01-31] MEDS ORDERED: LORazepam 0.5 MG TAB PO STA (23:48)
[2020-02-01 03:25] LABS: SARS CoV2 RNA (COVID-19) NOT DETECTED (NOT DETECTED)
[2020-02-01] MEDS: LEVOTHYROXINE SODIUM 75 MCG TABLET PO SCH (06:14)
[2020-02-01 06:21] LABS: Hemoglobin 11.6 g/dL (12.0-16.0); Mean Corpuscular Hemoglobin 29.5 pg (25-34); Mean Corpuscular Hgb Conc 34.1 g/dL (32-36); Mean Corpuscular Volume 86.5 fL (80-100); Mean Platelet Volume 9.4 fL (7.4-10.4); Platelet Count 249 K/uL (130-400); RDW Coefficient of Variation 15.3 % (11.5-14.5); RDW Standard Deviation 47.4 fL (36.4-46.3); Red Blood Count 3.93 M/uL (4.2-5.4); White Blood Count 7.59 K/uL (4.8-10.8)
[2020-02-01 06:41] LABS: Partial Thromboplastin Ratio 3.4
[2020-02-01 06:48] LABS: Albumin Level 2.8 gm/dl (3.4-5.0); BUN Creatinine Ratio 12.3 (10-20); Calcium 8.5 mg/dl (8.5-10.1); Creatinine Clr Calc Pharmacy 77.9 ml/min; Est GFR (African American) 109.3; Est GFR (Non-African American) 94.3; Magnesium 1.7 mg/dl (1.8-2.4); Potassium 2.9 mmol/L (3.5-5.1)
[2020-02-01 06:51] LABS: Albumin Globulin Ratio 0.8 (0.9-2); Bilirubin,Total 0.5 mg/dl (0.2-1); Globulin 3.7 gm/dl (2.5-4.0); Total Protein 6.5 gm/dl (6.4-8.2)
[2020-02-01 07:12] LABS: Partial Thromboplastin Time 94.1 Seconds (21.0-31.0)
[2020-02-01] MEDS ORDERED: POTASSIUM CHLORIDE 20 MEQ TABCR PO ONE ×2 (08:00→13:00)
[2020-02-01] MEDS: MAGNESIUM SULFATE / D5W 1 GM/100 ML BAG IV SCH ×2 (08:11→09:12)
[2020-02-01] MEDS: AMLODIPINE BESYLATE 5 MG TAB PO SCH (08:12)
[2020-02-01] MEDS: ATORVASTATIN 40 MG TAB PO SCH (08:12)
[2020-02-01] MEDS: ASPIRIN 81 MG ECTAB PO SCH (08:12)
[2020-02-01] MEDS: guaiFENesin 600 MG TABCR PO SCH (08:12)
[2020-02-01] MEDS: CEROVITE ADV FORMULA TAB PO SCH (08:13)
[2020-02-01] MEDS: PANTOprazole 40 MG TAB PO SCH (08:13)
[2020-02-01] MEDS: CHECK FENTANYL PATCH PLACEMENT SCH ×2 (08:14)
[2020-02-01] MEDS: HEPARIN SODIUM/DEXTROSE 25,000 UNITS/500 ML BAG IV SCH (08:18)
[2020-02-01] MEDS: POTASSIUM CHLORIDE / WTR 10 MEQ/100 ML PLCT IV SCH ×2 (08:22→09:12)
[2020-02-01] MEDS ORDERED: MAGNESIUM OXIDE 400 MG TAB PO SCH (09:00)
--- NOTE | 2020-02-01 11:58 | Nuclear Medicine Report ---
NM pul perfusion HISTORY: 70 years-old Female sob, covid test negative, pls relay result to acute shortness of lynn ath COMPARISON: Duplex venous Doppler study 01/31/2020, CTA chest 08/21/2019, VQ scan 09/18/2016 TECHNIQUE: Pulmonary perfusion study was obtained following the intravenous administration of 5.6 mCi technetium 99 MAA. Ventilation portion of the study was not conducted secondary to current instituti onal droplet precautions. FINDINGS: A chest radiograph was obtained on 01/30/2020 which demonstrated cardiomegaly with emphysema and chron ic bibasilar interstitial coarsening. No large segmental perfusion defects identified. There is however decreased perfusion within the left lung base which appears unchanged from the 2016 study. This is likely related to cardiomegaly with l eft lung base atelectasis. IMPRESSION: Low probability of pulmonary embolus. ACT 112: Negative or not required by law. The above report was generated using voice recognition software. It may contain grammatical, syntax o r spelling errors. Electronically signed by: Ariel López M.D. 02/01/2020 11:56 AM
[2020-02-01 12:34] LABS: Potassium 3.3 mmol/L (3.5-5.1)
[2020-02-01 12:36] LABS: Magnesium 2.1 mg/dl (1.8-2.4)
[2020-02-01 12:37] LABS: Partial Thromboplastin Ratio 1.7
[2020-02-01 12:39] LABS: Partial Thromboplastin Time 46.1 Seconds (21.0-31.0)
--- NOTE | 2020-02-01 13:32 | Hospitalist Progress Note ---
Date of Service February 01, 2020 Assessment & Plan (1) Acute hypoxemic respiratory failure: Acute respiratory failure with hypoxia H/O moderate to severe obstructive sleep apnea, nocturnal hypoxemia Age indeterminant DVT -oxygen saturation measured as 86% in the ED -CXR: Chronic stable cardiomegaly with chronic bibasilar interstitial as well as pleural thickening type change. -Influenza screen, bio fire negative -SARS coV-2: Pending -Elevated D-Dimer -Venous Doppler 01/31/2020: There is age indeterminant and nonocclusive deep venous thrombosis identified in the right calf within 1 of the posterior tibial veins. The remaining deep veins of the right lower extremity are clear. There is no sonographic evidence of deep venous thrombosis in the left lower extremity -patient was given supplementary oxygen in hospital stay -Patient was placed on IV heparin anticoagulation empirically in the hospital because of respiratory symptoms without presence of acute lung infiltrates (only Chronic bibasilar interstitial change. Chronic left basilar pleural reactive change.) -Patient could not get imaging studies to rule out pulmonary embolism until initial COVID-19 test returned with results and the results on 02/01/2020 is negative (no COVID 19) and because of problems with obtaining IV access for CTA scan -A Nuclear Ventilation/Perfusion was requested but only the Perfusion portion could be performed on 02/01/2020 as per current hospital policy and the results of "Low probability of pulmonary embolus" -patient on room air and discussed with patient the pulmonary embolism is likely ruled out, but hospitalist did recommend systemic anticoagulation because of continued right leg pain. Hospitalist advised against Xarelto or Eliquis because of history of GI bleed risks. Hospitalist advised Warfarin but noted that this would require further bridging with Warfarin and patient did not wish to stay for this strategy. Patient prefers to not be anticoagulated as outpatient at this time and wishes to go home -For pain management of affected right leg, Hospitalist Doctor recommends no m ore than 2000 mg a day of acetaminophen for any further right leg pain, Ice to leg and Right Leg Elevation when laying on the bed, and ambulation as tolerated. Hospitalist Doctor also recommends follow up with primary care doctor -Patient has upcoming primary care appointment with 02/06/2020 11:20 AM Provider Coleman Vidal MD Department [facility] but because recently the clinics have not been able to see patients in the clinics in person and so a telemedicine primary care encounter can be done with Dr. Charanjit Spann. In either outpatient follow up methods, advise that patient talk with primary care doctor in regards to deep vein thrombosis Hypokalemia Hypomagnesemia H/O cyclic vomiting syndrome - Patient should continue home oral magnesium and oral potassium supplements. 02/01/2020 serum potassium was 2.9 and increased to 3.3 with IV and oral supplements. additional 40 of potassium meq given before. 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 breathing on room air. no chest pain. no shortness of breath. speaks in full sentences. no vomiting. test results and medical management discussed thoroughly. Patient wishes to go home Review of Systems Review of Systems: All systems reviewed & are unremarkable except as noted in HPI & below Physical Exam Constitutional: WD/WN, vitals as above + obese Eyes: PERRL, conjunctivae normal, anicteric sclerae EOM intact bilaterally ENMT: external ear and nose normal, oropharynx normal Neck: normal visual inspection Respiratory: normal respiratory effort, lungs clear to auscultation Cardiovascular: Rate/Rhythm: regular rate and regular rhythm Gastrointestinal (Abdomen): normal bowel sounds, soft, nontender, no hepatosplenomegaly Musculoskeletal: Head/Neck/Chest: normocephalic Extremities: + lower leg abnormality (right leg/calf pain on palpation) Neurologic: PERRL, EOMI, accommodation nl, no face palsy, no dysarthria Psychiatric: A+Ox3, euthymic affect Results & Data Results & Data ([facility]) Vital Signs (Past 12 Hours) Vital Signs Temp Pulse Pulse Pulse Resp BP Pulse Ox 02/01/20 13:21 36.5 C 76 89 22 139/80 91 02/01/20 12:00 36.5 C 89 22 139/80 91 02/01/20 09:41 36.7 C 78 20 149/92 H 02/01/20 07:13 80 02/01/20 05:24 36.6 C 78 18 124/77 90
--- NOTE | 2020-02-01 13:33 | Discharge Summary ---
Date of Service February 01, 2020 Admission HPI Per Admitting Provider History obtained from patient and records. Medical history significant for CAD sp stenting, HTN, hyperlipidemia, PTSD/mood disorder, post polio syndrome/scoliosis as per records, chronic pain on Fentanyl patch, prediabetes as per records, migraine. Recent confinement November 2019 for low back pain. Few days history of dry cough, low-grade fever at home, and shortness of breath. No chest pain. No known sick contacts/recent out-of-town travel. Denies abdominal pain/black/bloody stools. Good BM. Fair appetite. Worsening migraine symptoms with new onset neck pain without antecedent trauma. O2 sats 80s upon arrival at the ER. 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 Principal Diagnosis Acute Respiratory Failure with Hypoxia (resolved), Elevated D-Dimer, Deep Vein Thrombosis, Hypokalemia, Hypomagnesemia , Obstructive Sleep Apnea Discharge Exam Constitutional WD/WN, vitals as above + obese Eyes PERRL, conjunctivae normal, anicteric sclerae EOM intact bilaterally ENMT external ear and nose normal, oropharynx normal Neck normal visual inspection Respiratory normal respiratory effort, lungs clear to auscultation Cardiovascular Rate/Rhythm: regular rate and regular rhythm Gastrointestinal (Abdomen) normal bowel sounds, soft, nontender, no hepatosplenomegaly Musculoskeletal Head/Neck/Chest: normocephalic Extremities: + lower leg abnormality (right leg/calf pain on palpation) Neurologic PERRL, EOMI, accommodation nl, no face palsy, no dysarthria Psychiatric A+Ox3, euthymic affect Discharge Data Allergies Allergy/AdvReac Type Severity Reaction Status Date / Time latex Allergy Intermediate Rash Verified 01/30/20 19:40 nickel Allergy Intermediate SEVERE Verified 01/30/20 19:40 DERMATITIS NSAIDS (Non-Steroidal Allergy Intermediate HX OF Verified 01/30/20 19:40 Anti-Inflamma BLEEDING ULCERS-TO AVOID aspirin AdvReac Intermediate bleeding Verified 01/30/20 19:40 ulcers Consultations 01/30/20 19:54 ED Decision to Admit Stat Ordered Studies 01/30/20 21:34 CT cervical spine wo con Urgent CT head/brain wo con Urgent 01/31/20 00:26 US venous doppler LE BI Routine Hospital Course (1) Acute hypoxemic respiratory failure: Acute respiratory failure with hypoxia H/O moderate to severe obstructive sleep apnea, nocturnal hypoxemia Age indeterminant DVT -oxygen saturation measured as 86% in the ED -CXR: Chronic stable cardiomegaly with chronic bibasilar interstitial as well as pleural thickening type change. -Influenza screen, bio fire negative -SARS coV-2: Pending -Elevated D-Dimer -Venous Doppler 01/31/2020: There is age indeterminant and nonocclusive deep venous thrombosis identified in the right calf within 1 of the posterior tibial veins. The remaining deep veins of the right lower extremity are clear. There is no sonographic evidence of deep venous thrombosis in the left lower extremity -patient was given supplementary oxygen in hospital stay -Patient was placed on IV heparin anticoagulation empirically in the hospital because of respiratory symptoms without presence of acute lung infiltrates (only Chronic bibasilar interstitial change. Chronic left basilar pleural reactive change.) -Patient could not get imaging studies to rule out pulmonary embolism until initial COVID-19 test returned with results and the results on 02/01/2020 is negative (no COVID 19) and because of problems with obtaining IV access for CTA scan -A Nuclear Ventilation/Perfusion was requested but only the Perfusion portion could be performed on 02/01/2020 as per current hospital policy and the results of "Low probability of pulmonary embolus" -patient on room air and discussed with patient the pulmonary embolism is likely ruled out, but hospitalist did recommend systemic anticoagulation because of continued right leg pain. Hospitalist advised against Xarelto or Eliquis because of history of GI bleed risks. Hospitalist advised Warfarin but noted that this would require further bridging with Warfarin and patient did not wish to stay for this strategy. Patient prefers to not be anticoagulated as outpatient at this time and wishes to go home -For pain management of affected right leg, Hospitalist Doctor recommends no more than 2000 mg a day of acetaminophen for any further right leg pain, Ice to leg and Right Leg Elevation when laying on the bed, and ambulation as tolerated. Hospitalist Doctor also recommends follow up with primary care doctor -Patient has upcoming primary care appointment with 02/06/2020 11:20 AM Provider Coleman Vidal MD Department [facility] but because recently the clinics have not been able to see patients in the clinics in person and so a telemedicine primary care encounter can be done with Dr. Charanjit Spann. In either outpatient follow up methods, advise that patient talk with primary care doctor in regards to deep vein thrombosis Hypokalemia Hypomagnesemia H/O cyclic vomiting syndrome - Patient should continue home oral magnesium and oral potassium supplements. 02/01/2020 serum potassium was 2.9 and increased to 3.3 with IV and oral supplements. additional 40 of potassium meq given before. 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 Obstructive sleep apnea Nocturnal hypoxemia -CPAP at bedtime Discharge Diagnosis: Acute Respiratory Failure with Hypoxia (resolved), Elevated D-Dimer, Deep Vein Thrombosis, Hypokalemia, Hypomagnesemia , Obstructive Sleep Apnea Total Time Total Time Spent Total Time Spent (In Minutes): 40 minutes Total Time Includes: Examination of the Patient, Discharge Planning, Medication Reconciliation and Communication With Other Providers Discharge Plan Discharge Items Patient Disposition: Home - Home Health Services Reason For Visit: RESP FAILURE Discharge Diagnosis: Acute Respiratory Failure with Hypoxia (resolved), Elevated D-Dimer, Deep Vein Thrombosis, Hypokalemia, Hypomagnesemia, Obstructive Sleep Apnea Condition on Discharge: Good Activity: Resume your previous activity Non-emergency contact: Primary Care Provider Call non-emergency contact if: you have any medication questions Follow-up/Referrals: Charanjit Spann MD [Primary Care Provider] - 02/06/20 11:20 am Diet: Regular and Heart Healthy Addtl Attending Provider Instructions: Patient has upcoming primary care appointment with 02/06/2020 11:20 AM Provider Coleman Vidal MD Department [facility] but because recently the clinics have not been able to see patients in the clinics in person and so a telemedicine primary care encounter can be done with Dr. Charanjit Spann. In either outpatient follow up methods, advise that patient talk with primary care doctor in regards to deep vein thrombosis Venous Doppler 01/31/2020: There is age indeterminant and nonocclusive deep venous thrombosis identified in the right calf within 1 of the posterior tibial veins. The remaining deep veins of the right lower extremity are clear. There is no sonographic evidence of deep venous thrombosis in the left lower extremity Patient was placed on IV heparin anticoagulation empirically in the hospital because of respiratory symptoms without presence of acute lung infiltrates (only Chronic bibasilar interstitial change. Chronic left basilar pleural reactive change.) Patient could not get imaging studies to rule out pulmonary embolism until initial COVID-19 test returned with results and the results on 02/01/2020 is negative (no COVID 19) and because of problems with obtaining IV access for CTA scan A Nuclear Ventilation/Perfusion was requested but only the Perfusion portion could be performed as per current hospital policy and the results of "Low probability of pulmonary embolus" Discussed with patient the pulmonary embolism is likely ruled out, but hospitalist did recommend systemic anticoagulation because of continued right leg pain. Hospitalist advised against Xarelto or Eliquis because of history of GI bleed risks. Hospitalist advised Warfarin but noted that this would require further bridging with Warfarin and patient did not wish to stay for this strategy. Patient prefers to not be anticoagulated as outpatient at this time and wishes to go home For pain management of affected right leg, Hospitalist Doctor recommends no more than 2000 mg a day of acetaminophen for any further right leg pain, Ice to leg and Right Leg Elevation when laying on the bed, and ambulation as tolerated. Hospitalist Doctor also recommends follow up with primary care doctor Patient should continue home oral magnesium and oral potassium supplements. 02/01/2020 serum potassium was 2.9 and increased to 3.3 with IV and oral supplements. additional 40 of potassium meq given before. 02/01/2020 serum magnesium 1.7 and increased to 2.1 after IV magnesium Pending Studies at Discharge: No Stand-Alone Forms: [employer], Smoking Cessation Medications and DC Order Prescriptions: New acetaminophen 325 mg tablet 325 mg PO Q6H PRN (Reason: fever or pain) 5 Days Qty: 20 RF: 0 Continued nitroglycerin [Nitrostat] 0.3 mg Tablet, Sublingual 0.3 mg sublingual UD PRN (Reason: Chest Pain) RF: 0 aspirin [Aspir-81] 81 mg Tablet,Delayed Release (Dr/Ec) 81 mg PO QAM RF: 0 magnesium oxide 400 mg (241.3 mg magnesium) Tablet 400 mg PO BID RF: 0 nystatin 100,000 unit/gram Powder 1 applic TOPICAL TID PRN (Reason: BREAKOUTS) RF: 0 Calcium 600 + D(3) 600 mg calcium- 200 unit Capsule 1 cap PO BID RF: 0 olopatadine 0.2 % Drops 1 drp OPB QAM RF: 0 epinephrine 0.3 mg/0.3 mL Syringe 0.3 mg IM Q3H PRN (Reason: Allergic Reaction) RF: 0 Ocuvite Adult 50 Plus 250-5-1 mg Capsule 1 cap PO QAM RF: 0 pantoprazole 40 mg tablet,delayed release (DR/EC) 40 mg PO QAM RF: 0 mirtazapine 7.5 mg tablet 7.5 mg PO HS RF: 0 Latuda 20 mg Tablet 20 mg PO QPM RF: 0 gabapentin 300 mg capsule 600 mg PO HS RF: 0 atorvastatin [Lipitor] 40 mg Tablet 40 mg PO QAM RF: 0 levothyroxine 75 mcg Tablet 75 mcg PO QAM RF: 0 buspirone 10 mg Tablet 10 mg PO TID RF: 0 tramadol [Ultram] 50 mg Tablet 50 mg PO Q8 PRN (Reason: severe pain) RF: 0 pramipexole [Mirapex] 0.125 mg Tablet 0.125 mg PO HS PRN (Reason: Restless Leg(S)) RF: 0 potassium chloride [Klor-Con M20] 20 mEq tablet,ER particles/crystals 20 meq PO BID RF: 0 prochlorperazine maleate 5 mg tablet 10 mg PO BID PRN (Reason: Nausea) RF: 0 polyethylene glycol 3350 17 gram Powder In Packet 17 g PO DAILY PRN (Reason: Constipation) RF: 0 ondansetron HCl [Zofran] 8 mg Tablet 8 mg PO Q6H PRN (Reason: Nausea) RF: 0 promethazine 25 mg Tablet 25 mg PO Q6H PRN (Reason: Nausea) RF: 0 fentanyl [Duragesic] 25 mcg/hr patch 72 hour 1 patch topical [id number] RF: 0 fentanyl [Duragesic] 12 mcg/hr patch 72 hour 1 patch topical [id number] RF: 0 hydroxyzine HCl 25 mg tablet 100 mg PO HS RF: 0 amlodipine [Norvasc] 5 mg tablet 10 mg PO QAM RF: 0 Discontinued ibuprofen 600 mg tablet 600 mg PO Q8H PRN (Reason: Pain) RF: 0 acetaminophen 500 mg Tablet 1,000 mg PO Q8 7 Days Qty: 42 RF: 1 Discharge Orders: Discharge Order (Routine); Ordered 02/01/20 Ordered By: Stan Carreno Admission Data Admit Date/Time: 01/30/20 22:50 Attending Provider: Stan Carreno Admit Provider: Latrell Kraft Primary Care Provider: Charanjit Spann Other Providers: Latrell Kraft ; [facility]
== END 2020-02-01 14:35 | disposition home health service (06) | DRG 189 ==
LOC: ED 16:45 → SUATTDRO 22:50 → 2W 22:50

== ENCOUNTER 2020-02-27 12:30 | Inpatient (IN) ==
--- NOTE | 2020-02-27 13:15 | Emergency Department Note ---
Impression & Plan Hypoxia, SOB (shortness of breath), Weakness, Edema ED Provider Note NAME: JOVANNI DE SANTIAGO AGE: 70 SEX: F : 1950 ARRIVES VIA: Walk-In INFORMANT: [Patient] ED PROVIDER(S): [Ivan Vang MD] CHIEF COMPLAINT: Shortness of breath, right leg swelling HISTORY OF PRESENT ILLNESS: The patient is a 70-year-old female presents to the ED with shortness of breath and increased swelling of her right leg. The patient has noticed these symptoms for a few days now. Today is the worst day. In triage, her O2 saturation was documented at 85%, she was placed on oxygen. Of note, she does not wear oxygen regularly. The patient has noticed that her right leg is more swollen and red. It is more painful. Pain is moderate in severity. Touching the area makes the pain worse, nothing makes the pain better. She has a known DVT in this leg diagnosed last month. She is not currently on anticoagulation because of issues in the past with internal bleeding. There has been no increased cough. She has had no known coronavirus exposures. She was tested for coronavirus last month and her test was negative. There has been no vomiting, no diarrhea. She does not have any chest pain. She does feel bloated, she feels that her pants are tighter, she feels that she has gained fluid. She does take hydrochlorothiazide regularly. REVIEW OF SYSTEMS: See HPI for pertinent positives and negatives. A total of ten systems were reviewed and were otherwise negative. PMHx/PSHx: See Below SOCIAL HISTORY: See Below. PHYSICAL EXAM: GENERAL: Patient is in no acute distress. HEENT: No acute trauma, normocephalic atraumatic, mucous membranes moist, no femi al congestion, no scleral icterus. NECK: No stridor, no adenopathy, no meningismus, trachea is midline. LUNGS: Clear to auscultation bilaterally, no wheeze, no rhonchi, breath sounds equal. HEART: Without murmurs gallops or rubs, regular rate and rhythm. ABDOMEN: Soft, nontender, bowel sounds positive, no hernias, no peritonitis. EXTREMITIES: No cyanosis. The patient does have edema to her right lower extremity. There is some erythema involving the ankle, dorsal foot and distal right leg. The entire area of erythema is tender to touch. There is some slight increased warmth. No drainage. NEUROLOGIC: Oriented x 3, no acute motor or sensory deficits, no focal weakness. SKIN: No rash, no jaundice, no diaphoresis. DIFFERENTIAL DIAGNOSIS: Infection, dehydration, metabolic abnormality, worsening DVT, PE, CHF, hypo/hyperglycemia, electrolyte disturbance, anemia, hypoxia, cardiac sources, intracerebral event, toxicologic, neurologic, as well as other pathologies. EMERGENCY DEPARTMENT COURSE/PROCEDURES: ECG: Indication is shortness of breath. There is a sinus bradycardia with a rate of 56. There are no PVCs, no ST elevation. A potential old inferior infarct was noted. Continuous Cardiac Monitoring: An order was placed for continuous cardiac monitoring. The monitor shows a rate of 68 with normal sinus rhythm. MEDICAL DECISION MAKING: There is no leukocytosis. Patient does not have any concerning anemia. There is a normal platelet count. No coagulopathy. Renal panel testing does show a lower potassium at 3, no kidney failure. Lactic acid level is not elevated making sepsis less likely. No concerning liver enzyme elevation. EKG shows a sinus bradycardia, no acute ischemia. Cardiac enzyme testing x1 is not consistent with acute cardiac injury. Chest film shows potential atelectasis or pneumonia. Chest CT does not show PE, there was no pneumonia seen. Right leg ultrasound does not show any DVT. The deep venous clot seen previously has resolved. The patient presents with shortness of breath, edema. She was concerned for worsening DVT or possibly PE. The patient received IV potassium to replace her lower value. The patient presents hypoxic, short of breath and weak. The cause for her findings is unclear. She is not stable for discharge with the hypoxia diagnosis. She is still requiring oxygen supplementation. She does not wear oxygen as an outpatient. Further work-up, possibly a pulmonary consult is required. I spoke to the patient, I talked with case management. The on-call hospitalist has been consulted. Past Med/Surg History Medical History Anemia (Chronic) HX OF Anxiety (Chronic) CAD (coronary artery disease) (Chronic) 2017-[facility] to LAD Cervical spondylolysis (Chronic) Chronic pain (Chronic) Colitis (Chronic) Cyclical vomiting (Chronic) Deep vein thrombosis (Chronic) 4 YEARS AGO Degenerative disc disease (Chronic) Depression (Chronic) Dyslipidemia (Chronic) Hyperlipidemia (Chronic) Hypertension (Chronic) Hypothyroidism (Chronic) Migraine (Chronic) Mood disorder (Chronic) Myocardial Infarction (Chronic) 2 YEARS AGO Osteoarthritis (Chronic) Post traumatic stress disorder (Chronic) Pulmonary embolism (Chronic) 2 YEARS OLD (UNSURE OF REASON) Restless leg syndrome (Chronic) Scoliosis (Chronic) Surgical History Fusion of spine (Chronic) LUMBAR H/O ovarian cystectomy (Chronic) H/O repair of right rotator cuff (Chronic) H/O spinal fusion (Chronic) "1st surgery in [place], then multiple surgeries Dr. Catherine at [facility] [place]" History of adenoidectomy (Chronic) History of anesthesia reaction (Chronic) WOKE UP IN MIDDLE OF SPINAL SURGERIES History of appendectomy (Chronic) History of cataract surgery (Chronic) LEFT AND RIGHT History of heart artery stent (Chronic) 2017- STENT PLACED AT [facility] (DR. DAVILA) History of laminectomy (Chronic) LUMBAR History of tonsillectomy (Chronic) History of vascular access device (Chronic) PORT LEFT UPPER CHEST-IN PLACE Ovarian cyst (Chronic) X 2 Family History Mother Hypertension Father Hypertension Social History Preferred Language: [place] Communication Ability: Effective Pit Clerk Required: No Beliefs That Will Affect Care: None marital status: Current Living Situation: Alone current occupational status: retired Other Information That Helps Us Care for You: No Feels Safe at Home: Yes Safety Concerns: Feels Safe At This Time Smoking Status: Never smoker Second Hand Exposure: No ; Hx Alcohol Use: No Hx Substance Use: No Allergies Allergies Allergy/AdvReac Type Severity Reaction Status Date / Time latex Allergy Intermediate Rash Verified 02/27/20 16:45 nickel Allergy Intermediate SEVERE Verified 02/27/20 16:45 DERMATITIS NSAIDS (Non-Steroidal Allergy Intermediate HX OF Verified 02/27/20 16:45 Anti-Inflamma BLEEDING ULCERS-TO AVOID aspirin AdvReac Intermediate bleeding Verified 02/27/20 16:45 ulcers Home Meds Home Medications Medication Instructions Recorded Confirmed atorvastatin [Lipitor] 40 mg PO QAM 12/13/18 02/27/20 buspirone 10 mg PO TID 12/13/18 02/27/20 levothyroxine 75 mcg PO QAM 12/13/18 02/27/20 pramipexole [Mirapex] 0.125 mg PO HS PRN 01/25/19 02/27/20 tramadol [Ultram] 50 mg PO Q8 PRN 01/25/19 02/27/20 potassium chloride [Klor-Con M20] 20 meq PO BID 03/30/19 02/27/20 ondansetron HCl [Zofran] 8 mg PO Q6H PRN 05/12/19 02/27/20 polyethylene glycol 3350 17 g PO DAILY PRN 05/12/19 02/27/20 prochlorperazine maleate 10 mg PO BID PRN 05/12/19 02/27/20 promethazine 25 mg PO Q6H PRN 05/12/19 02/27/20 Calcium 600 + D(3) 1 cap PO BID 05/23/19 02/27/20 Ocuvite Adult 50 Plus 1 cap PO QAM 05/23/19 02/27/20 aspirin [Aspir-81] 81 mg PO QAM 05/23/19 02/27/20 epinephrine 0.3 mg IM Q3H PRN 05/23/19 02/27/20 magnesium oxide 400 mg PO BID 05/23/19 02/27/20 nitroglycerin [Nitrostat] 0.3 mg SUBLINGUAL UD PRN 05/23/19 02/27/20 nystatin 1 applic TOPICAL TID PRN 05/23/19 02/27/20 olopatadine 1 drp OPB QAM 05/23/19 02/27/20 fentanyl [Duragesic] 1 patch TOPICAL [id number] 05/26/19 02/27/20 fentanyl [Duragesic] 1 patch TOPICAL [id number] 05/26/19 02/27/20 mirtazapine 7.5 mg PO HS 07/03/19 02/27/20 pantoprazole 40 mg PO QAM 07/03/19 02/27/20 Latuda 20 mg PO QPM 08/04/19 02/27/20 hydroxyzine HCl 100 mg PO HS 08/21/19 02/27/20 gabapentin 600 mg PO HS 01/30/20 02/27/20 amlodipine 20 mg PO DAILY 02/27/20 02/27/20 carvedilol 12.5 mg PO BID 02/27/20 02/27/20 diazepam 5 mg PO BID PRN 02/27/20 02/27/20 hydrochlorothiazide 25 mg PO DAILY 02/27/20 02/27/20 trazodone 300 mg PO HS 02/27/20 02/27/20 Results & Data (ED) Vital Signs Vital Signs - 24 hr 02/27/20 12:31 02/27/20 12:33 02/27/20 13:09 Temperature 37.0 C Temperature Source Oral Pulse Rate 80 Pulse Rate from SpO2 Sensor Respiratory Rate 20 Respiratory Effort / Characteristics Non-Labored Non-Labored Respiratory Depth Normal Normal Respiratory Pattern Regular Blood Pressure 136/69 Blood Pressure Mean 91 Blood Pressure Position Sitting Pulse Oximetry 85 L 86 L Oxygen Delivery Method Oxymask Room Air Oxymask Oxygen Flow Rate 2 2 Sepsis Recent Fever Within 48 Hours No Sepsis New/Unexplained Change in Mental Status No Sepsis Action Taken by Nursing No Action Required Oxygen Flow Rate - Titration 7 Fraction of Inspired Oxygen - Titration 94 02/27/20 15:07 02/27/20 15:10 02/27/20 15:20 Temperature Temperature Source Pulse Rate 55 L 56 L 54 L Pulse Rate from SpO2 Sensor 55 L 56 L 55 L Respiratory Rate 12 9 L 19 Respiratory Effort / Characteristics Respiratory Depth Respiratory Pattern Blood Pressure 95/58 L 92/53 L 100/60 Blood Pressure Mean 75 78 65 Blood Pressure Position Pulse Oximetry 90 90 95 Oxygen Delivery Method Oxymask Oxymask Oxymask Oxygen Flow Rate Sepsis Recent Fever Within 48 Hours Sepsis New/Unexplained Change in Mental Status Sepsis Action Taken by Nursing Oxygen Flow Rate - Titration Fraction of Inspired Oxygen - Titration 02/27/20 16:33 02/27/20 17:00 02/27/20 17:30 Temperature Temperature Source Pulse Rate 61 60 60 Pulse Rate from SpO2 Sensor 61 61 60 Respiratory Rate 25 H 8 L 22 Respiratory Effort / Characteristics Respiratory Depth Respiratory Pattern Blood Pressure 113/70 105/68 103/63 Blood Pressure Mean 83 78 79 Blood Pressure Position Pulse Oximetry 95 89 L 91 Oxygen Delivery Method Oxygen Flow Rate Sepsis Recent Fever Within 48 Hours Sepsis New/Unexplained Change in Mental Status Sepsis Action Taken by Nursing Oxygen Flow Rate - Titration Fraction of Inspired Oxygen - Titration Home Medications Current Medication List: was personally reviewed by me Laboratory Data Attestation: I reviewed the patient's lab results. Result diagrams: 02/27/20 13:50 02/27/20 13:50 Lab Results 02/27/20 02/27/20 02/27/20 Range/Units 13:50 13:50 13:50 WBC 8.36 (4.8-10.8) K/uL RBC 3.92 L (4.2-5.4) M/uL Hgb 11.3 L (12.0-16.0) g/dL Hct 34.1 L (37-47) % MCV 87.0 (80-100) fL MCH 28.8 (25-34) pg MCHC 33.1 (32-36) g/dL RDW Std Deviation 47.7 H (36.4-46.3) fL RDW Coeff of [place] 15.3 H (11.5-14.5) % Plt Count 237 (130-400) K/uL MPV 9.8 (7.4-10.4) fL Immature Gran % (Auto) 0.2 % Neut % (Auto) 53.8 % Lymph % (Auto) 28.0 % [place] % (Auto) 11.6 % Eos % (Auto) 5.9 % Baso % (Auto) 0.5 % Immature Gran # (Auto) 0.02 (0.00-0.02) K/uL Neut # (Auto) 4.50 (1.4-6.5) K/uL Lymph # (Auto) 2.34 (1.2-3.4) K/uL [place] # (Auto) 0.97 H (0.11-0.59) K/uL Eos # (Auto) 0.49 (0-0.5) K/uL Baso # (Auto) 0.04 (0-0.2) K/uL PT 11.3 (9.0-12.0) Seconds INR 1.1 (0.9-1.1) APTT 28.8 (21.0-31.0) Seconds PTT Ratio 1.0 Sodium 139 (136-145) mmol/L Potassium 3.0 L (3.5-5.1) mmol/L Chloride 102 (98-107) mmol/L Carbon Dioxide 31 (21-32) mmol/L Anion Gap 6.0 (3-11) BUN 14 (7-18) mg/dl Creatinine 0.77 (0.6-1.2) mg/dl Est Cr Clr Drug Dosing 73.1 ml/min Est GFR ( Amer) 89.4 Est GFR (Non-Af Amer) 77.1 BUN/Creatinine Ratio 18.5 (10-20) Glucose 123 H (70-99) mg/dl Lactate (0.4-2.0) mmol/L Calcium 8.2 L (8.5-10.1) mg/dl Magnesium 1.9 (1.8-2.4) mg/dl Total Bilirubin 0.4 (0.2-1) mg/dl AST 23 (15-37) U/L ALT 22 (12-78) U/L Alkaline Phosphatase 77 (45-117) U/L Troponin I < 0.015 (0-0.045) ng/ml NT-Pro-B Natriuret Pep (0-900) pg/ml Total Protein 6.6 (6.4-8.2) gm/dl Albumin 3.0 L (3.4-5.0) gm/dl Globulin 3.6 (2.5-4.0) gm/dl Albumin/Globulin Ratio 0.8 L (0.9-2) TSH 0.940 (0.300-4.500) uIu/ml 02/27/20 02/27/20 Range/Units 13:50 13:50 WBC (4.8-10.8) K/uL RBC (4.2-5.4) M/uL Hgb (12.0-16.0) g/dL Hct (37-47) % MCV (80-100) fL MCH (25-34) pg MCHC (32-36) g/dL RDW Std Deviation (36.4-46.3) fL RDW Coeff of [place] (11.5-14.5) % Plt Count (130-400) K/uL MPV (7.4-10.4) fL Immature Gran % (Auto) % Neut % (Auto) % Lymph % (Auto) % [place] % (Auto) % Eos % (Auto) % Baso % (Auto) % Immature Gran # (Auto) (0.00-0.02) K/uL Neut # (Auto) (1.4-6.5) K/uL Lymph # (Auto) (1.2-3.4) K/uL [place] # (Auto) (0.11-0.59) K/uL Eos # (Auto) (0-0.5) K/uL Baso # (Auto) (0-0.2) K/uL PT (9.0-12.0) Seconds INR (0.9-1.1) APTT (21.0-31.0) Seconds PTT Ratio Sodium (136-145) mmol/L Potassium (3.5-5.1) mmol/L Chloride (98-107) mmol/L Carbon Dioxide (21-32) mmol/L Anion Gap (3-11) BUN (7-18) mg/dl Creatinine (0.6-1.2) mg/dl Est Cr Clr Drug Dosing ml/min Est GFR ( Amer) Est GFR (Non-Af Amer) BUN/Creatinine Ratio (10-20) Glucose (70-99) mg/dl Lactate 1.4 (0.4-2.0) mmol/L Calcium (8.5-10.1) mg/dl Magnesium (1.8-2.4) mg/dl Total Bilirubin (0.2-1) mg/dl AST (15-37) U/L ALT (12-78) U/L Alkaline Phosphatase (45-117) U/L Troponin I (0-0.045) ng/ml NT-Pro-B Natriuret Pep 531 (0-900) pg/ml Total Protein (6.4-8.2) gm/dl Albumin (3.4-5.0) gm/dl Globulin (2.5-4.0) gm/dl Albumin/Globulin Ratio (0.9-2) TSH (0.300-4.500) uIu/ml Administered Medications Discontinued Medications Furosemide (Lasix) 40 mg IV NOW STA Stop: 02/27/20 18:14 Last Admin: 02/27/20 19:01 Dose: 40 mg Documented by: [id number] Potassium Chloride (K Sai / Wtr) 10 meq in 100 mls @ 100 mls/hr IV ONE ONE Stop: 02/27/20 15:33 Last Infusion: 02/27/20 17:34 Dose: 0 mls/hr Documented by: [id number] Admin: 02/27/20 16:35 Dose: 100 mls/hr Documented by: [id number] Ioversol (Optiray 320 125ml) 120 ml IV ONCE PRN PRN Reason: Interaction Checking Stop: 03/02/20 16:32 Last Admin: 02/27/20 16:33 Dose: 120 ml Documented by: [id number] Potassium Chloride (Klor-Con M20) 40 meq PO NOW STA Stop: 02/27/20 18:14 Last Admin: 02/27/20 19:01 Dose: 40 meq Documented by: [id number] Imaging Data Radiologist's Impression: XR chest 1V portable HISTORY: 70 years-old Female weakness acute weakness COMPARISON: Chest radiograph 01/30/2020, CT abdomen pelvis 11/18/2019. TECHNIQUE: Portable AP view of the chest FINDINGS: Patient is slightly rotated. Left subclavian [id number]-[id number] catheter redemonstrated. Prior median sternotomy. Cardiomegaly. Radiodensities project in the left lung base including a nodular 3.0 cm opacity are new from comparison. Additionally, there are subtle bibasilar and left midlung opacities. No pneumot horax, large pleural effusion or overt pulmonary edema. Degenerative changes of the shoulders and spine. Sigmoidal scoliosis of the thoracolumbar spine. IMPRESSION: 1. Mild bibasilar and left midlung opacities suggest atelectasis versus pneumonitis. 2. Additional radiodensities projecting over the left lung base are new from 01/30/2020 and may be external to the patient. 3. Cardiomegaly without overt pulmonary edema. RIGHT LOWER EXTREMITY VENOUS DOPPLER CLINICAL HISTORY: poss worse dvt COMPARISON STUDY: Bilateral lower extremity venous Doppler ultrasound January 31, 2020. TECHNIQUE: Sonography of the deep venous system of the right lower extremity was performed. Compression and augmentation were evaluated. FINDINGS: The right common femoral, superficial femoral and popliteal veins were compressible. Augmentation was normal. Flow was shown within the deep calf vessels. The thrombus within the right posterior tibial vein on exam of January 31, 2020 was not visualized on this exam IMPRESSION: No evidence of deep venous thrombus within the right lower extremity. The thrombus within the right posterior tibial vein on exam of January 31, 2020 was not visualized on this exam. CT ANGIOGRAM OF THE CHEST CLINICAL HISTORY: Shortness of breath. SUSPECTED PULMONARY EMBOLISM. COMPARISON STUDY: Chest x-ray dated 02/27/2020, CT scan dated 08/21/2019 TECHNIQUE: Following the IV administration of 120 mL of Optiray-320, CT angiogram of the thorax was performed from the thoracic inlet to the lung bases utilizing the pulmonary embolus protocol. Images are reviewed in the axial, sagittal, and coronal planes. IV contrast was administered without complication. MIP imaging was performed. A dose lowering technique was utilized adhering to the principles of ALARA. CT DOSE: 553.08 mGycm FINDINGS: There are stable borderline enlarged mediastinal and right hilar lymph nodes. The ascending thoracic aorta measures 35 mm. There are coronary artery calcifications present. There are no pulmonary artery filling defects to indicate acute pulmonary embolism. Evaluation is mildly limited due to respiratory motion artifact. There are no significant pleural effusions There are dependent basilar opacities, statistically atelectatic. There is equivocal mild septal edema. There are postsurgical changes of an extensive posterior spinal fusion IMPRESSION: 1. No evidence of acute pulmonary embolism 2. Mild cardiomegaly. Coronary calcifications. Suspected mild pulmonary arterial hypertension. 3. Dependent airspace opacity statistically atelectatic 4. Equivocal mild septal edema 5. Study mildly compromised due to respiratory motion artifact Blood Pressure Blood Pressure Findings: Normal blood pressure Discharge Plan Visit Data *Final* Discharge Date/Time: 02/27/20 19:15 Chief Complaint: Shortness of Breath/Dyspnea Stated Complaint: blood clot calf, sob ED Provider: Ivan Vang Discharge Problem: Hypoxia, SOB (shortness of breath), Weakness, Edema Patient Disposition: Admitted As Inpatient Condition: Fair Discharge Instructions Interventions: ED Discharge Assessment Last Done: 02/27/20 19:15 Discharge Problem: Edema Qualifiers: Edema type: unspecified Qualified Code(s): R60.9 - Edema, unspecified
--- NOTE | 2020-02-27 13:38 | XRay Report ---
XR chest 1V portable HISTORY: 70 years-old Female weakness acute weakness COMPARISON: Chest radiograph 01/30/2020, CT abdomen pelvis 11/18/2019. TECHNIQUE: Portable AP view of the chest FINDINGS: Patient is slightly rotated. Left subclavian [id number]-o-Yrnj catheter redemonstrated. Prior median ster notomy. Cardiomegaly. Radiodensities project in the left lung base including a nodular 3.0 cm opacity are new from comparison. Additionally, there are subtle bibasilar and left midlung opacities. No pne umothorax, large pleural effusion or overt pulmonary edema. Degenerative changes of the shoulders and spine. Sigmoidal scoliosis of the thoracolumbar spine. IMPRESSION: 1. Mild bibasilar and left midlung opacities suggest atelectasis versus pneumonitis. 2. Additional radiodensities projecting over the left lung base are new from 01/30/2020 and may be ext ernal to the patient. 3. Cardiomegaly without overt pulmonary edema. ACT 112: Negative or not required by law. The above report was generated using voice recognition software. It may contain grammatical, syntax o r spelling errors. Electronically signed by: Ariel López M.D. 02/27/2020 1:36 PM
[2020-02-27 14:00] LABS: Basophils # (auto) 0.04 K/uL (0-0.2); Basophils % (auto) 0.5 %; Eosinophils # (auto) 0.49 K/uL (0-0.5); Eosinophils % (auto) 5.9 %; Hematocrit (blood only) 34.1 % (37-47); Hemoglobin 11.3 g/dL (12.0-16.0); Immature Granulocytes # (auto) 0.02 K/uL (0.00-0.02); Immature Granulocytes % (auto) 0.2 %; Lymphocytes # (auto) 2.34 K/uL (1.2-3.4); Mean Corpuscular Hemoglobin 28.8 pg (25-34); Mean Corpuscular Hgb Conc 33.1 g/dL (32-36); Mean Platelet Volume 9.8 fL (7.4-10.4); Monocytes # (auto) 0.97 K/uL (0.11-0.59); Monocytes % (auto) 11.6 %; Neutrophils % (auto) 53.8 %; Platelet Count 237 K/uL (130-400); RDW Coefficient of Variation 15.3 % (11.5-14.5); RDW Standard Deviation 47.7 fL (36.4-46.3); Red Blood Count 3.92 M/uL (4.2-5.4); White Blood Count 8.36 K/uL (4.8-10.8)
[2020-02-27 14:18] LABS: Alanine Aminotransferase 22 U/L (12-78); Aspartate Aminotransferase 23 U/L (15-37); BUN Creatinine Ratio 18.5 (10-20); Blood Urea Nitrogen 14 mg/dl (7-18); Calcium 8.2 mg/dl (8.5-10.1); Carbon Dioxide 31 mmol/L (21-32); Chloride 102 mmol/L (98-107); Creatinine Clr Calc Pharmacy 73.1 ml/min; Est GFR (African American) 89.4; Est GFR (Non-African American) 77.1; Glucose 123 mg/dl (70-99); Magnesium 1.9 mg/dl (1.8-2.4); Sodium 139 mmol/L (136-145)
[2020-02-27 14:21] LABS: INR 1.1 (0.9-1.1); Partial Thromboplastin Time 28.8 Seconds (21.0-31.0); Prothrombin Time 11.3 Seconds (9.0-12.0)
[2020-02-27 14:28] LABS: Albumin Globulin Ratio 0.8 (0.9-2); Alkaline Phosphatase 77 U/L (45-117); Bilirubin,Total 0.4 mg/dl (0.2-1); Globulin 3.6 gm/dl (2.5-4.0); Total Protein 6.6 gm/dl (6.4-8.2); Troponin I < 0.015 ng/ml (0-0.045)
[2020-02-27] MEDS ORDERED: POTASSIUM CHLORIDE / WTR 10 MEQ/100 ML PLCT IV ONE (14:34)
--- NOTE | 2020-02-27 16:28 | Ultrasound Report ---
RIGHT LOWER EXTREMITY VENOUS DOPPLER CLINICAL HISTORY: poss worse dvt COMPARISON STUDY: Bilateral lower extremity venous Doppler ultrasound January 31, 2020. TECHNIQUE: Sonography of the deep venous system of the right lower extremity was performed. Compress ion and augmentation were evaluated. FINDINGS: The right common femoral, superficial femoral and popliteal veins were compressible. Augme ntation was normal. Flow was shown within the deep calf vessels. The thrombus within the right mechanical engineering specialist ior tibial vein on exam of January 31, 2020 was not visualized on this exam IMPRESSION: No evidence of deep venous thrombus within the right lower extremity. The thrombus within the right posterior tibial vein on exam of January 31, 2020 was not visualized on this exam. ACT 112: Negative or not required by law. Electronically signed by: Gonsalo Villafana M.D. 02/27/2020 4:27 PM
[2020-02-27] MEDS ORDERED: OPTIRAY 320 125ml IV PRN (16:33)
--- NOTE | 2020-02-27 16:45 | CT Scan Report ---
CT ANGIOGRAM OF THE CHEST CLINICAL HISTORY: Shortness of breath. SUSPECTED PULMONARY EMBOLISM. COMPARISON STUDY: Chest x-ray dated 02/27/2020, CT scan dated 08/21/2019 TECHNIQUE: Following the IV administration of 120 mL of Optiray-320, CT angiogram of the thorax was p erformed from the thoracic inlet to the lung bases utilizing the pulmonary embolus protocol. Images a re reviewed in the axial, sagittal, and coronal planes. IV contrast was administered without complica tion. MIP imaging was performed. A dose lowering technique was utilized adhering to the principles o f ALARA. CT DOSE: 553.08 mGycm FINDINGS: There are stable borderline enlarged mediastinal and right hilar lymph nodes. The ascending thoracic aorta measures 35 mm. There are coronary artery calcifications present. There are no pulmonary artery filling defects to indicate acute pulmonary embolism. Evaluation is mil dly limited due to respiratory motion artifact. There are no significant pleural effusions There are dependent basilar opacities, statistically atelectatic. There is equivocal mild septal candi a. There are postsurgical changes of an extensive posterior spinal fusion IMPRESSION: 1. No evidence of acute pulmonary embolism 2. Mild cardiomegaly. Coronary calcifications. Suspected mild pulmonary arterial hypertension. 3. Dependent airspace opacity statistically atelectatic 4. Equivocal mild septal edema 5. Study mildly compromised due to respiratory motion artifact ACT 112: Negative or not required by law. Electronically signed by: Jhonny Marsh M.D. 02/27/2020 4:44 PM
[2020-02-27 18:05] LABS: Base Excess ABG 4.7 mEq/L (-9-1.8); HCO3 ABG 31 mmol/L (19-24); Oxygen Saturation ABG 92.5 % (90-95); PCO2 ABG 56 mmHg (35-46); PO2 ABG 70 mmHg (80-95); pH ABG 7.36 (7.35-7.45)
[2020-02-27 18:06] LABS: Allen Test Pos (Pos)
[2020-02-27] MEDS ORDERED: FUROSEMIDE 40 MG/4 ML VIAL IV STA (18:13)
[2020-02-27] MEDS ORDERED: POTASSIUM CHLORIDE 20 MEQ TABCR PO STA (18:13)
[2020-02-27] MEDS ORDERED: POLYETHYLENE (MIRALAX) 17 GM PACK PO PRN (19:36)
[2020-02-27] MEDS ORDERED: ACETAMINOPHEN 325 MG TAB PO PRN (19:36)
[2020-02-27] MEDS ORDERED: fentaNYL 25 MCG/HR TDSY TD SCH (20:00)
[2020-02-27] MEDS ORDERED: fentaNYL 12 MCG/HR TDSY TD SCH (20:00)
--- NOTE | 2020-02-27 20:23 | History & Physical Report ---
Date of Service February 27, 2020 Assessment & Plan (1) Acute respiratory failure with hypoxia: -admit to med/surg with tele -patient presenting from home with reports of shortness of breath, lower extremity edema (R>L), and right calf pain -recent admission to [facility] 01/29-01/31 for hypoxia. During admission, COVID testing was negative. Patient underwent a VQ with perfusion only that showed low PE probability. Venous doppler show age indeterminate non occlusive DVT in the right posterior tibial vein. Patient was offered anticoagulation with Lovenox bridge to Coumadin however she declined due to history of GI bleeding. -in the ED today, patient was hypoxic on room air at 85% which improved with 3L via oxymask -RLE venous doppler no longer shows the previous thrombus. CTA chest negative for PE. -given lower extremity edema and reported 10lb weight gain, consider CHF. Will trial Lasix 40mg IV x 1. Echo 06/2019 EF > 70%, grade I diastolic dysfunction. Update echo. Check proBNP. Also noted that patient is on a high dose of amlodipine (20mg daily) which could be contributing to lower extremity edema. Will reduce dose to 10mg daily. -check ABG -history of severe HOLLY, unable to tolerate CPAP -monitor response to above treatments, may need pulmonary eval (2) Chest pain: (3) CAD (coronary artery disease): -patient reports chest pain yesterday morning that resolved after 3 SL nitro -initial trop negative, EKG without acute ST changes -continue to cycle cardiac enzymes and check resting echo -cardio consult for chest pain and possible CHF -continue ASA, statin, beta dory (4) Hypertension: -BP currently controlled -reducing amlodipine dose as above, holding HCTZ while receiving IV Lasix, continue carvedilol (5) Chronic pain: -continue home fentanyl patch and PRN tramdol (6) Hypothyroidism: -continue levothyroxine (7) Anxiety: (8) Depression: -continue home meds (9) DVT prophylaxis: -SQ Lovenox Admission and Anticipated Discharge Date Admission Date: February 27, 2020 History of Present Illness Chief Complaint: Shortness of Breath, Right Leg Swelling and Pain Primary Care Provider: Charanjit Spann MD 70 year old female with PMH CAD, HTN, chronic pain, cyclic vomiting, and other problems listed below who presents to the ED with reports of shortness of breath and right leg pain and swelling. Patient recently admitted to [facility] 01/29-01/31 for evaluation of hypoxia. During admission, COVID testing was negative. Patient underwent a VQ with perfusion only that showed low PE probability. Venous doppler show age indeterminate non occlusive DVT in the right posterior tibial vein. Patient was offered anticoagulation with Lovenox bridge to Coumadin however she declined and was discharged. She was able to be weaned from oxygen before discharge as well. Patient reports yesterday morning she woke up with left sided chest pain that was radiating into her left shoulder. She took 3 SL nitro and the pain subsequently subsided. No further episodes of chest pain. Patient notes worsening shortness of breath with exertion as well as at rest that began yesterday as well. She notes increasing BLLE edema, right greater than left, and reports right calf pain. She reports a 10lb weight gain over the past week. No cough or sputum production. Denies fever and chills. No lightheadedness, dizziness, diaphoresis, or syncopal event. Denies abdominal pain, nausea, vomiting, and diarrhea. No urinary symptoms. Upon arrival to the ED, patient is found to be hypoxic on room air at 85%. This improved with oxygen 3L via oxymak. RLE venous doppler is negative for DVT. CTA chest is negative for PE. Allergies Allergy/AdvReac Type Severity Reaction Status Date / Time latex Allergy Intermediate Rash Verified 02/27/20 16:45 nickel Allergy Intermediate SEVERE Verified 02/27/20 16:45 DERMATITIS NSAIDS (Non-Steroidal Allergy Intermediate HX OF Verified 02/27/20 16:45 Anti-Inflamma BLEEDING ULCERS-TO AVOID aspirin AdvReac Intermediate bleeding Verified 02/27/20 16:45 ulcers Home Medications Home Medications Medication Instructions Recorded Confirmed Type atorvastatin [Lipitor] 40 mg PO QAM 12/13/18 02/27/20 History buspirone 10 mg PO TID 12/13/18 02/27/20 History levothyroxine 75 mcg PO QAM 12/13/18 02/27/20 History pramipexole [Mirapex] 0.125 mg PO HS PRN 01/25/19 02/27/20 History tramadol [Ultram] 50 mg PO Q8 PRN 01/25/19 02/27/20 History potassium chloride [Klor-Con M20] 20 meq PO BID 03/30/19 02/27/20 History ondansetron HCl [Zofran] 8 mg PO Q6H PRN 05/12/19 02/27/20 History polyethylene glycol 3350 17 g PO DAILY PRN 05/12/19 02/27/20 History prochlorperazine maleate 10 mg PO BID PRN 05/12/19 02/27/20 History promethazine 25 mg PO Q6H PRN 05/12/19 02/27/20 History Calcium 600 + D(3) 1 cap PO BID 05/23/19 02/27/20 History Ocuvite Adult 50 Plus 1 cap PO QAM 05/23/19 02/27/20 History aspirin [Aspir-81] 81 mg PO QAM 05/23/19 02/27/20 History epinephrine 0.3 mg IM Q3H PRN 05/23/19 02/27/20 History magnesium oxide 400 mg PO BID 05/23/19 02/27/20 History nitroglycerin [Nitrostat] 0.3 mg SUBLINGUAL UD PRN 05/23/19 02/27/20 History nystatin 1 applic TOPICAL TID PRN 05/23/19 02/27/20 History olopatadine 1 drp OPB QAM 05/23/19 02/27/20 History fentanyl [Duragesic] 1 patch TOPICAL [id number] 05/26/19 02/27/20 History fentanyl [Duragesic] 1 patch TOPICAL [id number] 05/26/19 02/27/20 History mirtazapine 7.5 mg PO HS 07/03/19 02/27/20 History pantoprazole 40 mg PO QAM 07/03/19 02/27/20 History Latuda 20 mg PO QPM 08/04/19 02/27/20 History hydroxyzine HCl 100 mg PO HS 08/21/19 02/27/20 History gabapentin 600 mg PO HS 01/30/20 02/27/20 History amlodipine 20 mg PO DAILY 02/27/20 02/27/20 History carvedilol 12.5 mg PO BID 02/27/20 02/27/20 History diazepam 5 mg PO BID PRN 02/27/20 02/27/20 History hydrochlorothiazide 25 mg PO DAILY 02/27/20 02/27/20 History trazodone 300 mg PO HS 02/27/20 02/27/20 History Past Med/Surg History Medical History (Updated 02/28/20 @ 17:22 by Yoel Ramos DO) Anemia (Chronic) HX OF Anxiety (Chronic) CAD (coronary artery disease) (Chronic) 2017-BMS to LAD Cervical spondylolysis (Chronic) Chronic pain (Chronic) Colitis (Chronic) Cyclical vomiting (Chronic) Deep vein thrombosis (Chronic) 4 YEARS AGO Degenerative disc disease (Chronic) Depression (Chronic) Dyslipidemia (Chronic) GI bleed history of. declining anticoagulation due to hx of GIB. Hyperlipidemia (Chronic) Hypertension (Chronic) Hypothyroidism (Chronic) Migraine (Chronic) Mood disorder (Chronic) Myocardial Infarction (Chronic) 2 YEARS AGO Osteoarthritis (Chronic) Post traumatic stress disorder (Chronic) Pulmonary embolism (Chronic) 2 YEARS OLD (UNSURE OF REASON) Restless leg syndrome (Chronic) Scoliosis (Chronic) Surgical History Fusion of spine (Chronic) LUMBAR H/O ovarian cystectomy (Chronic) H/O repair of right rotator cuff (Chronic) H/O spinal fusion (Chronic) "1st surgery in [place], then multiple surgeries Dr. Catherine at [facility]" History of adenoidectomy (Chronic) History of anesthesia reaction (Chronic) WOKE UP IN MIDDLE OF SPINAL SURGERIES History of appendectomy (Chronic) History of cataract surgery (Chronic) LEFT AND RIGHT History of heart artery stent (Chronic) 2017- STENT PLACED AT [facility] (DR. DAVILA) History of laminectomy (Chronic) LUMBAR History of tonsillectomy (Chronic) History of vascular access device (Chronic) PORT LEFT UPPER CHEST-IN PLACE Ovarian cyst (Chronic) X 2 Family History Mother Hypertension Father Hypertension Social History Preferred Language: Uzbek Communication Ability: Effective Mattress Maker Required: No Beliefs That Will Affect Care: None marital status: Single Current Living Situation: Alone current occupational status: retired Other Information That Helps Us Care for You: No Feels Safe at Home: Yes Safety Concerns: Feels Safe At This Time Smoking Status: Never smoker Second Hand Exposure: No ; Hx Alcohol Use: No Hx Substance Use: No Review of Systems Review of Systems: ROS per HPI, all other systems reviewed and negative Physical Exam Constitutional: WD/WN, vitals as above Eyes: PERRL, conjunctivae normal, anicteric sclerae ENMT: external ear and nose normal, oropharynx normal Respiratory: normal respiratory effort; no respiratory distress Auscultation: + crackles (faint, BL bases) Cardiovascular: Rate/Rhythm: regular rate and regular rhythm Vessels: normal peripheral pulses Extremities: + edema (+1-2 pitting BLLE, R > L ) Gastrointestinal (Abdomen): normal bowel sounds, soft, nontender, no hepatosplenomegaly Musculoskeletal: no cyanosis or clubbing, extremities motor strength 5/5 Skin: no rashes, warm and dry Neurologic: PERRL, EOMI, accommodation nl, no face palsy, no dysarthria Psychiatric: A+Ox3, euthymic affect Results & Data Results & Data ([facility]) Vital Signs (Past 12 Hours) Vital Signs Temp Pulse Pulse Resp BP BP Pulse Ox 02/27/20 19:03 68 18 115/60 93 02/27/20 19:00 57 L 13 115/60 92 02/27/20 18:30 63 12 115/63 90 02/27/20 18:00 67 25 H 97/60 L 91 02/27/20 17:30 60 22 103/63 91 02/27/20 17:00 60 8 L 105/68 89 L 02/27/20 16:33 61 25 H 113/70 95 02/27/20 15:20 54 L 19 100/60 95 02/27/20 15:10 56 L 9 L 92/53 L 90 02/27/20 15:07 55 L 12 95/58 L 90 02/27/20 13:09 86 L 02/27/20 12:33 37.0 C 80 20 136/69 85 L Laboratory Results Short CBC 02/27/20 Range/Units 13:50 WBC 8.36 (4.8-10.8) K/uL Hgb 11.3 L (12.0-16.0) g/dL Hct 34.1 L (37-47) % Plt Count 237 (130-400) K/uL BMP 02/27/20 13:50 Sodium 139 Potassium 3.0 L Chloride 102 Carbon Dioxide 31 BUN 14 Creatinine 0.77 Glucose 123 H Calcium 8.2 L Cardiac Enzymes 02/27/20 Range/Units 13:50 Troponin I < 0.015 (0-0.045) ng/ml Liver Function 02/27/20 Range/Units 13:50 Total Bilirubin 0.4 (0.2-1) mg/dl AST 23 (15-37) U/L ALT 22 (12-78) U/L Alkaline Phosphatase 77 (45-117) U/L Albumin 3.0 L (3.4-5.0) gm/dl Diagnostic Findings CTA CHEST IMPRESSION: 1. No evidence of acute pulmonary embolism 2. Mild cardiomegaly. Coronary calcifications. Suspected mild pulmonary arterial hypertension. 3. Dependent airspace opacity statistically atelectatic 4. Equivocal mild septal edema 5. Study mildly compromised due to respiratory motion artifact RLE VENOUS DOPPLER IMPRESSION: No evidence of deep venous thrombus within the right lower extremity. The thrombus within the right posterior tibial vein on exam of January 31, 2020 was not visualized on this exam. CXR IMPRESSION: 1. Mild bibasilar and left midlung opacities suggest atelectasis versus pneumo nitis. 2. Additional radiodensities projecting over the left lung base are new from 01/30/2020 and may be external to the patient. 3. Cardiomegaly without overt pulmonary edema. Code Status & VTE Plan Code Status Patient is a full code as per my discussion with her. VTE Prophylaxis Plan VTE Prophylaxis will be ordered: Yes Supervising Physician Co-Signing Physician Notes Attending Addendum: delayed entry date of service noted above care coordinated with NUPUR Doherty please refer to her notes for full details, I agree with her notes patient seen and examined, records reviewed by myself as well on exam, patient seen resting in bed, somewhat tired, on 2 L oxymask no active shortness of breath, chest pain reports RLE pain no fever/chills, cough, sputum production no other symptoms VS noted and reviewed oriented x 3, not in distress, speaks in sentences with no effort nor accessory muscle use normal rate, regular rhythm, no murmurs clear breath sounds bilaterally non distended, soft, nontender (+) grade 1 lower leg edema, erythema, warmth no neuro deficits WBC 8.3 Hg [address] chest: septal edema ASSESSMENT AND PLAN ACUTE ON CHRONIC CHF EXACERBATION lasix 40mg IV re-eval in AM echo cardiology consulted CAD Chest pain r/o ACS serial troponin echo other diagnoses and plan of care as per NUPUR Doherty's notes Kyler Pineda MD
[2020-02-27] MEDS ORDERED: carvediloL 12.5 MG TAB PO SCH (21:00)
[2020-02-27] MEDS ORDERED: TRAZODONE HCL 100 MG TAB PO SCH (21:00)
[2020-02-27] MEDS ORDERED: MAGNESIUM OXIDE 400 MG TAB PO SCH (21:00)
[2020-02-27] MEDS ORDERED: MIRTAZAPINE TAB 15 MG TAB PO SCH (21:00)
[2020-02-27] MEDS ORDERED: POTASSIUM CHLORIDE 20 MEQ TABCR PO ONE (21:00)
[2020-02-27] MEDS ORDERED: CALCIUM 600MG + VIT D 400 IU TAB PO SCH (21:00)
[2020-02-27] MEDS ORDERED: POTASSIUM CHLORIDE 20 MEQ TABCR PO SCH (21:00)
[2020-02-27] MEDS ORDERED: GABAPENTIN 300 MG CAP PO SCH (21:00)
[2020-02-27] MEDS: TRAMADOL HCL 50 MG TABLET PO PRN (21:20)
[2020-02-27] MEDS: ENOXAPARIN INJ 40 MG/0.4 ML SYR SQ SCH (21:21)
[2020-02-27] MEDS: POTASSIUM CHLORIDE 20 MEQ TABCR PO SCH (21:22)
[2020-02-27] MEDS: GABAPENTIN 300 MG CAP PO SCH (21:23)
[2020-02-27] MEDS: MIRTAZAPINE TAB 15 MG TAB PO SCH (21:24)
[2020-02-27] MEDS: TRAZODONE HCL 100 MG TAB PO SCH (21:25)
[2020-02-27] MEDS: MAGNESIUM OXIDE 400 MG TAB PO SCH (21:25)
[2020-02-27] MEDS: LURASIDONE HCL 40 MG TAB PO SCH (21:26)
[2020-02-28] MEDS: CHECK FENTANYL PATCH PLACEMENT SCH ×3 (00:54→16:01)
[2020-02-28] MEDS ORDERED: TRAMADOL HCL 50 MG TABLET PO STA (01:07)
[2020-02-28 02:14] LABS: Hematocrit (blood only) 33.7 % (37-47); Hemoglobin 11.1 g/dL (12.0-16.0); Mean Corpuscular Hemoglobin 28.7 pg (25-34); Mean Corpuscular Hgb Conc 32.9 g/dL (32-36); Mean Corpuscular Volume 87.1 fL (80-100); Mean Platelet Volume 9.2 fL (7.4-10.4); Platelet Count 227 K/uL (130-400); RDW Coefficient of Variation 15.2 % (11.5-14.5); RDW Standard Deviation 48.3 fL (36.4-46.3); Red Blood Count 3.87 M/uL (4.2-5.4); White Blood Count 7.33 K/uL (4.8-10.8)
[2020-02-28 02:32] LABS: BUN Creatinine Ratio 14.9 (10-20); Blood Urea Nitrogen 11 mg/dl (7-18); Calcium 7.8 mg/dl (8.5-10.1); Carbon Dioxide 35 mmol/L (21-32); Chloride 103 mmol/L (98-107); Creatinine Clr Calc Pharmacy 80.4 ml/min; Est GFR (African American) 98.6; Est GFR (Non-African American) 85.1; Glucose 115 mg/dl (70-99); Potassium 3.2 mmol/L (3.5-5.1); Sodium 143 mmol/L (136-145)
[2020-02-28 02:36] LABS: Troponin I < 0.015 ng/ml (0-0.045)
[2020-02-28] MEDS: LEVOTHYROXINE SODIUM 75 MCG TABLET PO SCH (04:11)
[2020-02-28] MEDS ORDERED: LEVOTHYROXINE SODIUM 75 MCG TABLET PO SCH (06:30)
[2020-02-28] MEDS: TRAMADOL HCL 50 MG TABLET PO PRN ×2 (08:49→16:02)
[2020-02-28] MEDS: MAGNESIUM OXIDE 400 MG TAB PO SCH ×2 (08:50→20:34)
[2020-02-28] MEDS: PANTOprazole 40 MG TAB PO SCH (08:51)
[2020-02-28] MEDS: CALCIUM 600MG + VIT D 400 IU TAB PO SCH ×2 (08:51→20:37)
[2020-02-28] MEDS: carvediloL 12.5 MG TAB PO SCH ×2 (08:51→20:32)
[2020-02-28] MEDS: POTASSIUM CHLORIDE 20 MEQ TABCR PO SCH ×2 (08:51→20:34)
[2020-02-28] MEDS: CEROVITE ADV FORMULA TAB PO SCH (08:52)
[2020-02-28] MEDS: ASPIRIN 81 MG ECTAB PO SCH (08:52)
[2020-02-28] MEDS: ATORVASTATIN 40 MG TAB PO SCH (08:52)
[2020-02-28] MEDS: AMLODIPINE BESYLATE 5 MG TAB PO SCH (08:52)
[2020-02-28] MEDS ORDERED: CEROVITE ADV FORMULA TAB PO SCH (09:00)
[2020-02-28] MEDS ORDERED: ASPIRIN 81 MG ECTAB PO SCH (09:00)
[2020-02-28] MEDS ORDERED: AMLODIPINE BESYLATE 5 MG TAB PO SCH (09:00)
[2020-02-28] MEDS ORDERED: ATORVASTATIN 40 MG TAB PO SCH (09:00)
[2020-02-28] MEDS ORDERED: PANTOprazole 40 MG TAB PO SCH (09:00)
[2020-02-28] MEDS ORDERED: POTASSIUM CHLORIDE 20 MEQ TABCR PO STA (09:58)
--- NOTE | 2020-02-28 10:17 | Hospitalist Progress Note ---
Date of Service February 28, 2020 Assessment & Plan (1) Acute diastolic (congestive) heart failure: (2) Acute respiratory failure with hypoxia: Acute on Chronic Diastolic CHF exacerbation per [employer]UST[employer]IA Doherty's notes: -patient presenting from home with reports of shortness of breath, lower extr emity edema (R>L), and right calf pain -recent admission to [facility] 01/29-01/31 for hypoxia. During admission, COVID testing was negative. Patient underwent a VQ with perfusion only that showed low PE prob ability. Venous doppler show age indeterminate non occlusive DVT in the right posterior tibial vein. Patient was offered anticoagulation with Lovenox bridge to Coumadin however she declined due to history of GI bleeding. -in the ED today, patient was hypoxic on room air at 85% which improved with 3L via oxymask -RLE venous doppler no longer shows the previous thrombus. CTA chest negative for PE. -given lower extremity edema and reported 10lb weight gain, consider CHF. Will trial Lasix 40mg IV x 1. Echo 06/2019 EF > 70%, grade I diastolic dysfunction. Update echo. Check proBNP. Also noted that patient is on a high dose of amlodipine (20mg daily) which could be contributing to lower extremity edema. Will reduce dose to 10mg daily. -history of severe HOLLY, unable to tolerate CPAP 02/28/20 clinically improved, no dyspnea, still at 2 L oxymask- wean off another dose of Lasix 20mg IV today with additional K echo: pending [employer] Commerce Web Developer consulted, appreciate the recommendations (3) Cellulitis of right leg: start Cephalexin 500mg QID with probiotics monitor daily (4) Chest pain: (5) CAD (coronary artery disease): -patient reports chest pain day prior to admission that resolved after 3 SL nitro - trop x 3 negative EKG no signs of acute ischemic - echo: pending - [employer] Commerce Web Developer consulted -continue ASA, statin, beta dory (6) Hypertension: -BP currently controlled -reducing amlodipine dose (from usual 20mg to 10mg), holding HCTZ while receiving IV Lasix, continue carvedilol (7) Chronic pain: -continue home fentanyl patch and PRN tramdol (8) Hypothyroidism: -continue levothyroxine (9) Anxiety: (10) Depression: -continue home meds (11) DVT prophylaxis: -SQ Lovenox Admission and Anticipated Discharge Date Admission Date: February 27, 2020 Subjective ff up for volume overload, acute on chronic diastolic CHF exacerbation, hypoxia seen resting in bed, watching TV, more comfortable on 2 L via oxymask states she feels improved today compared to yesterday no dyspnea, no cough/sputum/chills denies chest pain mild R Lower leg discomfort no other symptoms Review of Systems Review of Systems: All systems reviewed & are unremarkable except as noted in HPI & below Physical Exam Physical Exam: General- oriented x 3, not in distress, speaks in sentences with no effort or accessory muscle use Eyes- anicteric Neck- no JVD Lungs- clear breath sounds bilaterally, no rales/wheezes Heart- normal rate, regular rhythm; no murmurs Abdomen- normal bowel sounds, nondistended, soft, nontender Extremities- (+) grade 1 lower leg edema r>l right lower leg: mild erythema/warmth, no tenderness Neuro- alert, oriented x 3; no gross focal neurologic deficits Skin- warm & dry Results & Data Results & Data ([facility]) Vital Signs (Past 12 Hours) Vital Signs Temp Pulse Pulse Resp BP Pulse Ox Pulse Ox 02/28/20 09:55 62 02/28/20 07:28 62 02/28/20 07:11 36.8 C 67 18 134/79 91 02/28/20 04:10 37.1 C 61 19 117/70 94 02/28/20 01:29 64 02/27/20 23:55 37.1 C 62 20 118/71 93 02/27/20 23:45 93 Laboratory Results Laboratory Results - last 24 hr 02/27/20 02/27/20 02/27/20 13:50 13:50 13:50 WBC 8.36 RBC 3.92 L Hgb 11.3 L Hct 34.1 L MCV 87.0 MCH 28.8 MCHC 33.1 RDW Std Deviation 47.7 H RDW Coeff of Arden 15.3 H Plt Count 237 MPV 9.8 Immature Gran % (Auto) 0.2 Neut % (Auto) 53.8 Lymph % (Auto) 28.0 Garrett % (Auto) 11.6 Eos % (Auto) 5.9 Baso % (Auto) 0.5 Immature Gran # (Auto) 0.02 Neut # (Auto) 4.50 Lymph # (Auto) 2.34 Garrett # (Auto) 0.97 H Eos # (Auto) 0.49 Baso # (Auto) 0.04 PT 11.3 INR 1.1 APTT 28.8 PTT Ratio 1.0 ABG pH ABG pCO2 ABG pO2 ABG HCO3 ABG O2 Saturation ABG Base Excess Kaleb Test Barometric Pressure Oxygen Given Sodium 139 Potassium 3.0 L Chloride 102 Carbon Dioxide 31 Anion Gap 6.0 BUN 14 Creatinine 0.77 Est Cr Clr Drug Dosing 73.1 Est GFR ( Amer) 89.4 Est GFR (Non-Af Amer) 77.1 BUN/Creatinine Ratio 18.5 Glucose 123 H Lactate Calcium 8.2 L Magnesium 1.9 Total Bilirubin 0.4 AST 23 ALT 22 Alkaline Phosphatase 77 Troponin I < 0.015 NT-Pro-B Natriuret Pep Total Protein 6.6 Albumin 3.0 L Globulin 3.6 Albumin/Globulin Ratio 0.8 L TSH 0.940 02/27/20 02/27/20 02/27/20 13:50 13:50 17:54 WBC RBC Hgb Hct MCV MCH MCHC RDW Std Deviation RDW Coeff of Arden Plt Count MPV Immature Gran % (Auto) Neut % (Auto) Lymph % (Auto) Garrett % (Auto) Eos % (Auto) Baso % (Auto) Immature Gran # (Auto) Neut # (Auto) Lymph # (Auto) Garrett # (Auto) Eos # (Auto) Baso # (Auto) PT INR APTT PTT Ratio ABG pH 7.36 ABG pCO2 56 H ABG pO2 70 L ABG HCO3 31 H ABG O2 Saturation 92.5 ABG Base Excess 4.7 H Kaleb Test Pos Barometric Pressure 731.4 Oxygen Given FLOW RATE 7 Sodium Potassium Chloride Carbon Dioxide Anion Gap BUN Creatinine Est Cr Clr Drug Dosing Est GFR ( Amer) Est GFR (Non-Af Amer) BUN/Creatinine Ratio Glucose Lactate 1.4 Calcium Magnesium Total Bilirubin AST ALT Alkaline Phosphatase Troponin I NT-Pro-B Natriuret Pep 531 Total Protein Albumin Globulin Albumin/Globulin Ratio TSH 02/27/20 02/28/20 02/28/20 20:23 02:04 02:04 WBC 7.33 RBC 3.87 L Hgb 11.1 L Hct 33.7 L MCV 87.1 MCH 28.7 MCHC 32.9 RDW Std Deviation 48.3 H RDW Coeff of Arden 15.2 H Plt Count 227 MPV 9.2 Immature Gran % (Auto) Neut % (Auto) Lymph % (Auto) Garrett % (Auto) Eos % (Auto) Baso % (Auto) Immature Gran # (Auto) Neut # (Auto) Lymph # (Auto) Garrett # (Auto) Eos # (Auto) Baso # (Auto) PT INR APTT PTT Ratio ABG pH ABG pCO2 ABG pO2 ABG HCO3 ABG O2 Saturation ABG Base Excess Kaleb Test Barometric Pressure Oxygen Given Sodium 143 Potassium 3.2 L Chloride 103 Carbon Dioxide 35 H Anion Gap 5.0 BUN 11 Creatinine 0.71 Est Cr Clr Drug Dosing 80.4 Est GFR ( Amer) 98.6 Est GFR (Non-Af Amer) 85.1 BUN/Creatinine Ratio 14.9 Glucose 115 H Lactate Calcium 7.8 L Magnesium Total Bilirubin AST ALT Alkaline Phosphatase Troponin I < 0.015 < 0.015 NT-Pro-B Natriuret Pep Total Protein Albumin Globulin Albumin/Globulin Ratio TSH
[2020-02-28] MEDS ORDERED: FUROSEMIDE 20 MG in SYRINGE 0 ML IV ONE (10:30)
[2020-02-28] MEDS: HEPARIN 100 UNIT/ML 5ML FLUSH FLUSH PRN ×2 (10:43→17:04)
[2020-02-28] MEDS ORDERED: FUROSEMIDE 40 MG in SYRINGE 0 ML IV SCH (12:00)
[2020-02-28] MEDS ORDERED: POTASSIUM CHLORIDE 20 MEQ TABCR PO ONE (12:15)
[2020-02-28] MEDS: LACTOBACILLUS ACIDOPHILUS (FLORANEX) TAB PO SCH ×2 (12:18→16:02)
[2020-02-28] MEDS: cephALEXin 500 MG CAP PO SCH ×3 (12:19→20:32)
[2020-02-28] MEDS: LURASIDONE HCL 40 MG TAB PO SCH (16:03)
[2020-02-28] MEDS ORDERED: fentaNYL 25 MCG/HR TDSY TD SCH (16:30)
[2020-02-28] MEDS ORDERED: fentaNYL 12 MCG/HR TDSY TD SCH (16:30)
--- NOTE | 2020-02-28 16:31 | Cardiology Consultation ---
Date of Consultation February 28, 2020 Assessment & Plan (1) Acute diastolic (congestive) heart failure: (2) Chest pain: (3) Acute respiratory failure with hypoxia: (4) Hypoxia: (5) CAD (coronary artery disease): (6) Pulmonary embolism: (7) GI bleed: The patient presents with acute decompensated diastolic heart failure and will require diuresis. 2D echocardiogram shows no new wall motion abnormalities and diastolic dysfunction with normal LV systolic function. I do not believe this represents an acute ischemic event and believe the most prudent course of action would be to titrate her medications and discharge to home with outpatient nuclear stress testing to follow. To that end, we will give her 2 doses of IV Lasix today and follow her volume status clinically. Ideally, I would like to add spironolactone as well however I am not sure her blood pressure be able to handle at this point. Electrolytes should be followed and replaced as necessary. History of Present Illness Reason for Consultation: SOB Requesting Physician: Dr. Pineda Attending Physician: Kyler Pineda MD History of Present Illness It was my pleasure to see Ms. Lua in consultation today February 28, 2020. She is a very pleasant yet medically complex 70-year-old woman who was previously followed with Dr. Mendez of our cardiology practice. She presented to [facility] emergency department on 02/27/2020 with complaints of chest heaviness. She states that that a.m. she woke up with a heaviness sensation across her chest. She took 3 sublingual nitroglycerin and eventually the pain subsided without further recurrence. She was concerned though and sought attention at the emergency department. Upon further questioning she admits that she has been having worsening shortness of breath that began a few days prior to presentation along with increasing lower extremity edema particularly on the right. She states that she is had approximately 10 pound weight gain in the past week. She was recently made to [facility] for hypoxia and her work-up at that time was unremarkable. She is currently resting comfortably without complaint. She does have a history of coronary artery disease receiving PCI to the LAD in the past and states that her presenting chest discomfort was in no way similar to the chest discomfort associated prior to stenting. Allergies Allergy/AdvReac Type Severity Reaction Status Date / Time latex Allergy Intermediate Rash Verified 02/27/20 16:45 nickel Allergy Intermediate SEVERE Verified 02/27/20 16:45 DERMATITIS NSAIDS (Non-Steroidal Allergy Intermediate HX OF Verified 02/27/20 16:45 Anti-Inflamma BLEEDING ULCERS-TO AVOID aspirin AdvReac Intermediate bleeding Verified 02/27/20 16:45 ulcers Home Medications Home Medications Medication Instructions Recorded Confirmed Type atorvastatin [Lipitor] 40 mg PO QAM 12/13/18 02/27/20 History buspirone 10 mg PO TID 12/13/18 02/27/20 History levothyroxine 75 mcg PO QAM 12/13/18 02/27/20 History pramipexole [Mirapex] 0.125 mg PO HS PRN 01/25/19 02/27/20 History tramadol [Ultram] 50 mg PO Q8 PRN 01/25/19 02/27/20 History potassium chloride [Klor-Con M20] 20 meq PO BID 03/30/19 02/27/20 History ondansetron HCl [Zofran] 8 mg PO Q6H PRN 05/12/19 02/27/20 History polyethylene glycol 3350 17 g PO DAILY PRN 05/12/19 02/27/20 History prochlorperazine maleate 10 mg PO BID PRN 05/12/19 02/27/20 History promethazine 25 mg PO Q6H PRN 05/12/19 02/27/20 History Calcium 600 + D(3) 1 cap PO BID 05/23/19 02/27/20 History Ocuvite Adult 50 Plus 1 cap PO QAM 05/23/19 02/27/20 History aspirin [Aspir-81] 81 mg PO QAM 05/23/19 02/27/20 History epinephrine 0.3 mg IM Q3H PRN 05/23/19 02/27/20 History magnesium oxide 400 mg PO BID 05/23/19 02/27/20 History nitroglycerin [Nitrostat] 0.3 mg SUBLINGUAL UD PRN 05/23/19 02/27/20 History nystatin 1 applic TOPICAL TID PRN 05/23/19 02/27/20 History olopatadine 1 drp OPB QAM 05/23/19 02/27/20 History fentanyl [Duragesic] 1 patch TOPICAL [id number] 05/26/19 02/27/20 History fentanyl [Duragesic] 1 patch TOPICAL [id number] 05/26/19 02/27/20 History mirtazapine 7.5 mg PO HS 07/03/19 02/27/20 History pantoprazole 40 mg PO QAM 07/03/19 02/27/20 History Latuda 20 mg PO QPM 08/04/19 02/27/20 History hydroxyzine HCl 100 mg PO HS 08/21/19 02/27/20 History gabapentin 600 mg PO HS 01/30/20 02/27/20 History amlodipine 20 mg PO DAILY 02/27/20 02/27/20 History carvedilol 12.5 mg PO BID 02/27/20 02/27/20 History diazepam 5 mg PO BID PRN 02/27/20 02/27/20 History hydrochlorothiazide 25 mg PO DAILY 02/27/20 02/27/20 History trazodone 300 mg PO HS 02/27/20 02/27/20 History Patient History Medical History Anemia (Chronic) HX OF Anxiety (Chronic) CAD (coronary artery disease) (Chronic) 2016-BMS to [facility]AD Cervical spondylolysis (Chronic) Chronic pain (Chronic) Colitis (Chronic) Cyclical vomiting (Chronic) Deep vein thrombosis (Chronic) 4 YEARS AGO Degenerative disc disease (Chronic) Depression (Chronic) Dyslipidemia (Chronic) Hyperlipidemia (Chronic) Hypertension (Chronic) Hypothyroidism (Chronic) Migraine (Chronic) Mood disorder (Chronic) Myocardial Infarction (Chronic) 2 YEARS AGO Osteoarthritis (Chronic) Post traumatic stress disorder (Chronic) Pulmonary embolism (Chronic) 2 YEARS OLD (UNSURE OF REASON) Restless leg syndrome (Chronic) Scoliosis (Chronic) Surgical History Fusion of spine (Chronic) LUMBAR H/O ovarian cystectomy (Chronic) H/O repair of right rotator cuff (Chronic) H/O spinal fusion (Chronic) "1st surgery in [place], then multiple surgeries Dr. Catherine at [facility] [place]" History of adenoidectomy (Chronic) History of anesthesia reaction (Chronic) WOKE UP IN MIDDLE OF SPINAL SURGERIES History of appendectomy (Chronic) History of cataract surgery (Chronic) LEFT AND RIGHT History of heart artery stent (Chronic) 2016- STENT PLACED AT [facility] (DR. MENDEZ) History of laminectomy (Chronic) LUMBAR History of tonsillectomy (Chronic) History of vascular access device (Chronic) PORT LEFT UPPER CHEST-IN PLACE Ovarian cyst (Chronic) X 2 Family History Mother Hypertension Father Hypertension Social History Preferred Language: Lao Communication Ability: Effective [employer] Installer Required: No Beliefs That Will Affect Care: None marital status: Single Current Living Situation: Alone current occupational status: retired Other Information That Helps Us Care for You: No Feels Safe at Home: Yes Safety Concerns: Feels Safe At This Time Smoking Status: Never smoker Second Hand Exposure: No ; Hx Alcohol Use: No Hx Substance Use: No Review of Systems Review of Systems: All systems reviewed & are unremarkable except as noted in HPI & below Physical Exam Physical Exam: General: Awake, alert and oriented x 3. No acute distress. HEENT: Normocephalic, atraumatic. Pupils equal, round and reactive to light and accommodation. Extraocular muscles are intact. Anicteric sclera. Moist mucous membranes. Neck: No JVD. No bruit. Cardiovascular: Regular. Positive S-4. Normal S-1 and S-2. No S-3. No murmurs or rubs. Pulmonary: Clear to auscultation B/L. No rales, rhonchi or wheezing Abdomen: Bowel sounds x 4, soft. No rebound, guarding or tenderness. No organomegaly. Extremities: No clubbing, cyanosis or edema. +2 pedal pulses bilaterally. Skin: Warm and dry. Results & Data ([facility]) Vital Signs (Past 12 Hours) Vital Signs Temp Pulse Pulse Resp BP BP Pulse Ox 02/28/20 11:28 36.5 C 78 02/28/20 11:00 128/84 02/28/20 09:55 62 02/28/20 07:28 62 02/28/20 07:11 36.8 C 67 18 134/79 91 02/28/20 04:10 37.1 C 61 19 117/70 94 Laboratory Results Laboratory Results - last 24 hr 02/27/20 02/27/20 02/27/20 13:50 17:54 20:23 WBC RBC Hgb Hct MCV MCH MCHC RDW Std Deviation RDW Coeff of Arden Plt Count MPV ABG pH 7.36 ABG pCO2 56 H ABG pO2 70 L ABG HCO3 31 H ABG O2 Saturation 92.5 ABG Base Excess 4.7 H Kaleb Test Pos Barometric Pressure 731.4 Oxygen Given FLOW RATE 7 Sodium Potassium Chloride Carbon Dioxide Anion Gap BUN Creatinine Est Cr Clr Drug Dosing Est GFR ( Amer) Est GFR (Non-Af Amer) BUN/Creatinine Ratio Glucose Calcium Troponin I < 0.015 NT-Pro-B Natriuret Pep 531 02/28/20 02/28/20 02:04 02:04 WBC 7.33 RBC 3.87 L Hgb 11.1 L Hct 33.7 L MCV 87.1 MCH 28.7 MCHC 32.9 RDW Std Deviation 48.3 H RDW Coeff of Arden 15.2 H Plt Count 227 MPV 9.2 ABG pH ABG pCO2 ABG pO2 ABG HCO3 ABG O2 Saturation ABG Base Excess Kaleb Test Barometric Pressure Oxygen Given Sodium 143 Potassium 3.2 L Chloride 103 Carbon Dioxide 35 H Anion Gap 5.0 BUN 11 Creatinine 0.71 Est Cr Clr Drug Dosing 80.4 Est GFR ( Amer) 98.6 Est GFR (Non-Af Amer) 85.1 BUN/Creatinine Ratio 14.9 Glucose 115 H Calcium 7.8 L Troponin I < 0.015 NT-Pro-B Natriuret Pep Medications Administered Current Inpatient Medications Acetaminophen (Tylenol) 650 mg PO Q4H PRN PRN Reason: Pain or Fever Stop: 03/28/20 19:35 Amlodipine Besylate (Norvasc) 10 mg PO DAILY@0800 [facility] Stop: 03/29/20 07:59 Last Admin: 02/28/20 08:52 Dose: 10 mg Documented by: Aspirin (Ecotrin Ectab) 81 mg PO DAILY@0800 [facility] Stop: 03/29/20 07:59 Last Admin: 02/28/20 08:52 Dose: 81 mg Documented by: Atorvastatin Calcium (Lipitor) 40 mg PO DAILY@0800 [facility] Stop: 03/29/20 07:59 Last Admin: 02/28/20 08:52 Dose: 40 mg Documented by: Buspirone HCl (Buspar) 10 mg PO TID@0800,1200,2000 [facility] Stop: 03/29/20 07:59 Last Admin: 02/28/20 12:18 Dose: 10 mg Documented by: Carvedilol (Coreg) 12.5 mg PO BID@799,1999 [facility] Stop: 03/29/20 07:59 Last Admin: 02/28/20 08:51 Dose: 12.5 mg Documented by: Cephalexin HCl (Keflex) 500 mg PO Q6H [facility] Stop: 03/06/20 13:59 Last Admin: 02/28/20 13:45 Dose: 500 mg Documented by: Enoxaparin Sodium (Lovenox) 40 mg SQ Q24H [facility] Stop: 03/28/20 19:59 Last Admin: 02/27/20 21:21 Dose: 40 mg Documented by: Fentanyl (Duragesic) 25 mcg TD Q3D [facility] Stop: 03/13/20 16:29 Last Admin: 02/28/20 16:59 Dose: 25 mcg Documented by: Fentanyl (Duragesic) 12 mcg TD Q3D [facility] Stop: 03/13/20 16:29 Last Admin: 02/28/20 16:59 Dose: 12 mcg Documented by: Gabapentin (Neurontin) 600 mg PO DAILY@1999 [facility] Stop: 03/28/20 20:59 Last Admin: 02/27/20 21:23 Dose: 600 mg Documented by: Heparin Sodium (Porcine) (Heparin Sod 100 Unit/Ml Flush) 5 ml FLUSH PRN PRN PRN Reason: Flush Stop: 03/28/20 20:34 Last Admin: 02/28/20 17:04 Dose: 5 ml Documented by: Hydroxyzine HCl (Vistaril) 100 mg PO DAILY@1999 [facility] Stop: 03/28/20 20:59 Last Admin: 02/27/20 21:21 Dose: 100 mg Documented by: Furosemide 40 mg/ Syringe 4 mls @ 4 mls/min IV BID@0800,1800 [facility] Stop: 03/29/20 17:59 Last Admin: 02/28/20 17:02 Dose: 4 mls/min Documented by: Lactobacillus Acidophilus (Floranex) 4 tab PO TID@0800,1200,1700 [facility] Stop: 03/29/20 11:59 Last Admin: 02/28/20 16:02 Dose: 4 tab Documented by: Lactobacillus Acidophilus (Floranex) 4 tab PO HS@1999 [facility] Stop: 06/11/20 19:59 Levothyroxine Sodium (Synthroid) 75 mcg PO DAILY@0400 [facility] Stop: 03/29/20 03:59 Last Admin: 02/28/20 04:11 Dose: 75 mcg Documented by: Lurasidone HCl (Latuda) 20 mg PO DAILY@1700 [facility] Stop: 03/28/20 19:59 Last Admin: 02/28/20 16:03 Dose: 20 mg Documented by: Magnesium Oxide (Mag-Ox) 400 mg PO BID@ [facility] Stop: 03/28/20 20:59 Last Admin: 02/28/20 08:50 Dose: 400 mg Documented by: Mirtazapine (Remeron) 7.5 mg PO DAILY@1999 [facility] Stop: 03/28/20 20:59 Last Admin: 02/27/20 21:24 Dose: 7.5 mg Documented by: Miscellaneous (Order Awaiting Action) 1 ea N/A QS [facility] Stop: 03/29/20 00:00 Last Admin: 02/28/20 16:02 Dose: Not Given Documented by: Miscellaneous (Fentanyl Patch Remove & Waste) 1 ea N/A Q3D [facility] Stop: 04/01/20 16:29 Miscellaneous (Fentanyl Patch Check Placement) 1 ea N/A QS [facility] Stop: 03/30/20 00:00 Multivitamins/Minerals (Caltrate Plus) 1 tab PO BID@ [facility] Stop: 03/29/20 07:59 Last Admin: 02/28/20 08:51 Dose: 1 tab Documented by: Multivitamins/Minerals (Multivitamin W/ Minerals Tab) 1 tab PO DAILY@0800 [facility] Stop: 03/29/20 07:59 Last Admin: 02/28/20 08:52 Dose: 1 tab Documented by: Pantoprazole Sodium (Protonix) 40 mg PO DAILY@0800 [facility] Stop: 03/29/20 07:59 Last Admin: 02/28/20 08:51 Dose: 40 mg Documented by: Polyethylene Glycol (Miralax Powder Packet) 17 gm PO DAILY PRN PRN Reason: Constipation Stop: 03/28/20 19:35 Potassium Chloride (Klor-Con M20) 40 meq PO BID@ [facility] Stop: 03/29/20 19:59 Tramadol HCl (Ultram) 50 mg PO Q8H PRN PRN Reason: severe pain Stop: 03/28/20 19:35 Last Admin: 02/28/20 16:02 Dose: 50 mg Documented by: Trazodone HCl (Desyrel) 300 mg PO DAILY@1999 [facility] Stop: 03/28/20 20:59 Last Admin: 02/27/20 21:25 Dose: 300 mg Documented by:
[2020-02-28] MEDS: FUROSEMIDE 40 MG in SYRINGE 0 ML IV SCH (17:02)
[2020-02-28] MEDS ORDERED: LACTOBACILLUS ACIDOPHILUS (FLORANEX) TAB PO SCH (20:00)
[2020-02-28] MEDS: MIRTAZAPINE TAB 15 MG TAB PO SCH (20:33)
[2020-02-28] MEDS: GABAPENTIN 300 MG CAP PO SCH (20:34)
[2020-02-28] MEDS: TRAZODONE HCL 100 MG TAB PO SCH (20:37)
[2020-02-28] MEDS: ENOXAPARIN INJ 40 MG/0.4 ML SYR SQ SCH (20:39)
--- NOTE | 2020-02-28 22:04 | Electrocardiogram Report ---
Test Reason : Blood Pressure : / mmHG Vent. Rate : 056 BPM Atrial Rate : 056 BPM P-R Int : 184 ms QRS Dur : 094 ms QT Int : 480 ms P-R-T Axes : 044 -17 020 degrees QTc Int : 463 ms Sinus bradycardia Low voltage QRS Inferior infarct (cited on or before 18-JUN-2019) Nonspecific T wave abnormality Abnormal ECG When compared with ECG of 30-JAN-2020 16:58, No significant change was found Confirmed by Broderick Stewart ([id number]) on 02/28/2020 10:04:01 PM Referred By: REFERRED SELF Confirmed By:Broderick Stewart
[2020-02-29] MEDS: cephALEXin 500 MG CAP PO SCH ×3 (01:05→14:55)
[2020-02-29] MEDS: CHECK FENTANYL PATCH PLACEMENT SCH ×2 (01:05→07:55)
[2020-02-29] MEDS: LEVOTHYROXINE SODIUM 75 MCG TABLET PO SCH (04:22)
--- NOTE | 2020-02-29 05:30 | Electrocardiogram Report ---
Test Reason : Blood Pressure : / mmHG Vent. Rate : 061 BPM Atrial Rate : 061 BPM P-R Int : 182 ms QRS Dur : 094 ms QT Int : 460 ms P-R-T Axes : 064 -16 036 degrees QTc Int : 463 ms Normal sinus rhythm Low voltage QRS Cannot rule out Anterior infarct , age undetermined Possible Inferior infarct Abnormal ECG When compared with ECG of 27-FEB-2020 14:28, No significant change was found Confirmed by Broderick Stewart ([id number]) on 02/29/2020 5:30:25 AM Referred By: REFERRED SELF Confirmed By:Broderick Stewart
[2020-02-29] MEDS: carvediloL 12.5 MG TAB PO SCH (07:51)
[2020-02-29] MEDS: ATORVASTATIN 40 MG TAB PO SCH (07:51)
[2020-02-29] MEDS: POTASSIUM CHLORIDE 20 MEQ TABCR PO SCH (07:51)
[2020-02-29] MEDS: AMLODIPINE BESYLATE 5 MG TAB PO SCH (07:52)
[2020-02-29] MEDS: LACTOBACILLUS ACIDOPHILUS (FLORANEX) TAB PO SCH ×2 (07:52→11:11)
[2020-02-29] MEDS: ASPIRIN 81 MG ECTAB PO SCH (07:53)
[2020-02-29] MEDS: CALCIUM 600MG + VIT D 400 IU TAB PO SCH (07:53)
[2020-02-29] MEDS: MAGNESIUM OXIDE 400 MG TAB PO SCH (07:54)
[2020-02-29] MEDS: FUROSEMIDE 40 MG in SYRINGE 0 ML IV SCH (07:54)
[2020-02-29] MEDS: PANTOprazole 40 MG TAB PO SCH (07:54)
[2020-02-29] MEDS: HEPARIN 100 UNIT/ML 5ML FLUSH FLUSH PRN ×2 (08:00→17:18)
[2020-02-29] MEDS: TRAMADOL HCL 50 MG TABLET PO PRN (08:07)
[2020-02-29] MEDS ORDERED: POTASSIUM CHLORIDE 20 MEQ TABCR PO STA (09:14)
[2020-02-29] MEDS: CEROVITE ADV FORMULA TAB PO SCH (11:10)
[2020-02-29] MEDS ORDERED: FUROSEMIDE 20 MG TAB PO PRN (12:05)
--- NOTE | 2020-02-29 13:09 | Hospitalist Progress Note ---
Date of Service February 29, 2020 Assessment & Plan (1) Acute respiratory failure with hypoxia: Acute on Chronic Diastolic CHF exacerbation Pulmonary embolism has been ruled out Recent admission to [facility] 01/29-01/31 for hypoxia. During admission, COVID testing was negative. Patient underwent a VQ with perfusion only that showed low PE probability. Venous doppler show age indeterminate non occlusive DVT in the right posterior tibial vein. Patient was offered anticoagulation with Lovenox bridge to Coumadin however she declined due to history of GI bleeding. Clinically improved, no dyspnea, still at 2 L oxymask- wean off Another dose of Lasix 20mg IV on 02/28/2020 with additional K 2D echocardiogram shows no new wall motion abnormalities and diastolic dysfunction with normal LV systolic function. Appreciate cardiology input and recommendation Clinically much better 2 steps O2 saturation test showed she will need oxygen with ambulation She wants to go home today and hopefully she will be discharged this afternoon Right Leg Cellulitis -RLE venous doppler no longer shows the previous thrombus. CTA chest negative for PE. -given lower extremity edema and reported 10lb weight gain, consider CHF. Will trial Lasix 40mg IV x 1. Echo 06/2019 EF > 70%, grade I diastolic dysfunction. Update echo. Check proBNP. Also noted that patient is on a high dose of amlodipine (20mg daily) which could be contributing to lower extremity edema. Will reduce dose to 10mg daily. Continue current antibiotic - (2) Chest pain: No acute ACS Likely will have outpatient nuclear stress testing in future (3) CAD (coronary artery disease): -patient reports chest pain day prior to admission that resolved after 3 SL nitro - trop x 3 negative EKG no signs of acute ischemic -continue ASA, statin, beta dory (4) Hypertension: -BP currently controlled -reducing amlodipine dose (from usual 20mg to 10mg), holding HCTZ while receiving IV Lasix, continue carvedilol (5) Chronic pain: -continue home fentanyl patch and PRN tramdol (6) Hypothyroidism: -continue levothyroxine (7) Anxiety: (8) Depression: -continue home meds (9) DVT prophylaxis: -SQ Lovenox Likely discharge this afternoon Admission and Anticipated Discharge Date Admission Date: February 27, 2020 Subjective The patient was seen and examined in medical telemetry unit She denies any complaints of shortness of breath and/or chest pain at rest Her leg swelling and redness have improved She has been ambulating without any significant shortness of breath and she wants to go home Review of Systems Review of Systems: All systems reviewed and are unremarkable except as noted below Respiratory: + dyspnea on exertion; no cough and no dyspnea Cardiovascular: no chest pain and no dyspnea at rest Physical Exam Physical Exam: Lying in bed comfortably Constitutional: well developed, well nourished and + obese; no acute distress and not ill appearing Eyes: PERRL, conjunctivae normal, anicteric sclerae ENMT: external ear and nose normal, oropharynx normal Neck: trachea midline, no thyromegaly Respiratory: normal respiratory effort; no respiratory distress Auscultation: lungs clear to auscultation bilaterally Cardiovascular: Rate/Rhythm: regular rate and regular rhythm Heart Sounds: no murmur Extremities: + edema (Bilateral leg edema with dusky discoloration involving the right leg) Gastrointestinal (Abdomen): Inspection/Auscultation: abdomen normal to inspection and normal bowel sounds; abdomen not distended Percussion/Palpation: abdomen soft; abdomen nontender Musculoskeletal: No acute arthritis in any joints Neurologic: moves all extremities; no focal motor deficits Lymphatic: no cervical or axillary lymphadenopathy Results & Data Results & Data ([facility]) Vital Signs (Past 12 Hours) Vital Signs Temp Pulse Pulse Pulse Pulse Pulse Pulse 02/29/20 11:17 36.7 C 59 L 02/29/20 09:36 81 83 61 54 L 02/29/20 07:28 61 02/29/20 07:21 36.7 C 69 02/29/20 04:00 36.9 C 54 L Resp Resp Resp Resp Resp BP BP 02/29/20 11:17 18 100/64 02/29/20 09:36 20 18 18 18 02/29/20 07:28 02/29/20 07:21 18 148/84 H 02/29/20 04:00 20 118/73 Pulse Ox Pulse Ox Pulse Ox Pulse Ox Pulse Ox 02/29/20 11:17 94 02/29/20 09:36 90 86 L 91 91 02/29/20 07:28 02/29/20 07:21 90 02/29/20 04:00 95 Diagnostic Findings CTA: IMPRESSION: 1. No evidence of acute pulmonary embolism 2. Mild cardiomegaly. Coronary calcifications. Suspected mild pulmonary arterial hypertension. 3. Dependent airspace opacity statistically atelectatic 4. Equivocal mild septal edema 5. Study mildly compromised due to respiratory motion artifact Medications Administered Current Inpatient Medications Acetaminophen (Tylenol) 650 mg PO Q4H PRN PRN Reason: Pain or Fever Stop: 03/28/20 19:35 Last Admin: 02/29/20 11:14 Dose: 650 mg Documented by: Amlodipine Besylate (Norvasc) 10 mg PO DAILY@0800 [facility] Stop: 03/29/20 07:59 Last Admin: 02/29/20 07:52 Dose: 10 mg Documented by: Aspirin (Ecotrin Ectab) 81 mg PO DAILY@0800 [facility] Stop: 03/29/20 07:59 Last Admin: 02/29/20 07:53 Dose: 81 mg Documented by: Atorvastatin Calcium (Lipitor) 40 mg PO DAILY@0800 [facility] Stop: 03/29/20 07:59 Last Admin: 02/29/20 07:51 Dose: 40 mg Documented by: Buspirone HCl (Buspar) 10 mg PO TID@0800,1200,1999 [facility] Stop: 03/29/20 07:59 Last Admin: 02/29/20 11:11 Dose: 10 mg Documented by: Carvedilol (Coreg) 12.5 mg PO BID@00,1999 [facility] Stop: 03/29/20 07:59 Last Admin: 02/29/20 07:51 Dose: 12.5 mg Documented by: Cephalexin HCl (Keflex) 500 mg PO Q6H [facility] Stop: 03/06/20 13:59 Last Admin: 02/29/20 07:50 Dose: 500 mg Documented by: Enoxaparin Sodium (Lovenox) 40 mg SQ Q24H [facility] Stop: 03/28/20 19:59 Last Admin: 02/28/20 20:39 Dose: 40 mg Documented by: Fentanyl (Duragesic) 25 mcg TD Q3D [facility] Stop: 03/13/20 16:29 Last Admin: 02/28/20 16:59 Dose: 25 mcg Documented by: Fentanyl (Duragesic) 12 mcg TD Q3D [facility] Stop: 03/13/20 16:29 Last Admin: 02/28/20 16:59 Dose: 12 mcg Documented by: Furosemide (Lasix) 20 mg PO QAM [facility] Stop: 03/31/20 08:59 Furosemide (Lasix) 20 mg PO QPM PRN PRN Reason: Shortness Of Breath Stop: 03/30/20 20:59 Gabapentin (Neurontin) 600 mg PO DAILY@1999 [facility] Stop: 03/28/20 20:59 Last Admin: 02/28/20 20:34 Dose: 600 mg Documented by: Heparin Sodium (Porcine) (Heparin Sod 100 Unit/Ml Flush) 5 ml FLUSH PRN PRN PRN Reason: Flush Stop: 03/28/20 20:34 Last Admin: 02/29/20 08:00 Dose: 5 ml Documented by: Hydroxyzine HCl (Vistaril) 100 mg PO DAILY@1999 [facility] Stop: 03/28/20 20:59 Last Admin: 02/28/20 20:36 Dose: 100 mg Documented by: Lactobacillus Acidophilus (Floranex) 4 tab PO TID@0800,1200,170 [facility] Stop: 03/29/20 11:59 Last Admin: 02/29/20 11:11 Dose: 4 tab Documented by: Lactobacillus Acidophilus (Floranex) 4 tab PO HS@1999 [facility] Stop: 03/29/20 19:59 Last Admin: 02/28/20 20:38 Dose: 4 tab Documented by: Levothyroxine Sodium (Synthroid) 75 mcg PO DAILY@040 [facility] Stop: 03/29/20 03:59 Last Admin: 02/29/20 04:22 Dose: 75 mcg Documented by: Lurasidone HCl (Latuda) 20 mg PO DAILY@170 [facility] Stop: 03/28/20 19:59 Last Admin: 02/28/20 16:03 Dose: 20 mg Documented by: Magnesium Oxide (Mag-Ox) 400 mg PO BID@ [facility] Stop: 03/28/20 20:59 Last Admin: 02/29/20 07:54 Dose: 400 mg Documented by: Mirtazapine (Remeron) 7.5 mg PO DAILY@1999 [facility] Stop: 03/28/20 20:59 Last Admin: 02/28/20 20:33 Dose: 7.5 mg Documented by: Miscellaneous (Order Awaiting Action) 1 ea N/A QS [facility] Stop: 03/29/20 00:00 Last Admin: 02/29/20 07:55 Dose: Not Given Documented by: Miscellaneous (Fentanyl Patch Remove & Waste) 1 ea N/A Q3D [facility] Stop: 04/01/20 16:29 Miscellaneous (Fentanyl Patch Check Placement) 1 ea N/A QS [facility] Stop: 03/30/20 00:00 Last Admin: 02/29/20 07:55 Dose: 1 ea Documented by: Multivitamins/Minerals (Caltrate Plus) 1 tab PO BID@ [facility] Stop: 03/29/20 07:59 Last Admin: 02/29/20 07:53 Dose: 1 tab Documented by: Multivitamins/Minerals (Multivitamin W/ Minerals Tab) 1 tab PO DAILY@08 [facility] Stop: 03/29/20 07:59 Last Admin: 02/29/20 11:10 Dose: 1 tab Documented by: Pantoprazole Sodium (Protonix) 40 mg PO DAILY@08 [facility] Stop: 03/29/20 07:59 Last Admin: 02/29/20 07:54 Dose: 40 mg Documented by: Polyethylene Glycol (Miralax Powder Packet) 17 gm PO DAILY PRN PRN Reason: Constipation Stop: 03/28/20 19:35 Potassium Chloride (Klor-Con M20) 40 meq PO BID@ [facility] Stop: 03/29/20 19:59 Last Admin: 02/29/20 07:51 Dose: 40 meq Documented by: Tramadol HCl (Ultram) 50 mg PO Q8H PRN PRN Reason: severe pain Stop: 03/28/20 19:35 Last Admin: 02/29/20 08:07 Dose: 50 mg Documented by: Trazodone HCl (Desyrel) 300 mg PO DAILY@1999 [facility] Stop: 03/28/20 20:59 Last Admin: 02/28/20 20:37 Dose: 300 mg Documented by:
--- NOTE | 2020-02-29 14:06 | Cardiology Progress Note ---
Date of Service February 29, 2020 Assessment & Plan (1) Acute diastolic (congestive) heart failure: (2) Chest pain: (3) Acute respiratory failure with hypoxia: (4) Hypoxia: (5) CAD (coronary artery disease): (6) Pulmonary embolism: (7) GI bleed: The patient presents with acute decompensated diastolic heart failure and will require diuresis. 2D echocardiogram shows no new wall motion abnormalities and diastolic dysfunction with normal LV systolic function. I do not believe this represents an acute ischemic event and believe the most prudent course of action would be to titrate her medications and discharge to home with outpatient nuclear stress testing to follow. She has diuresed very well and she may be discharged to home from a cardiac standpoint. She should be started on Lasix 20 mg p.o. every morning with an afternoon dose as needed along with potassium supplementation. A BMP should be drawn in 1 week as an outpatient as well. My office will call to arrange follow-up as an outpatient. Subjective Patient seen and examined, medical records reviewed. States that she is feeling well. Has not had any recurrences of chest discomfort and her breathing is back to baseline. Lower extremity edema has also improved. She is tolerating her medications well and has had brisk diuresis overnight. Telemetry reviewed: Normal sinus rhythm without arrhythmia or significant ectopy. Review of Systems Review of Systems: All systems reviewed & are unremarkable except as noted in HPI & below Physical Exam Physical Exam: General: Awake, alert and oriented x 3. No acute distress. HEENT: Normocephalic, atraumatic. Pupils equal, round and reactive to light and accommodation. Extraocular muscles are intact. Anicteric sclera. Moist mucous membranes. Neck: No JVD. No bruit. Cardiovascular: Regular. Positive S-4. Normal S-1 and S-2. No S-3. No murmurs or rubs. Pulmonary: Clear to auscultation B/L. No rales, rhonchi or wheezing Abdomen: Bowel sounds x 4, soft. No rebound, guarding or tenderness. No organomegaly. Extremities: No clubbing, cyanosis or edema. +2 pedal pulses bilaterally. Skin: Warm and dry. Results & Data Vital Signs (Past 12 Hours) Vital Signs Temp Pulse Pulse Pulse Pulse Pulse Pulse 02/29/20 11:17 36.7 C 59 L 02/29/20 09:36 81 83 61 54 L 02/29/20 07:28 61 02/29/20 07:21 36.7 C 69 02/29/20 04:00 36.9 C 54 L Resp Resp Resp Resp Resp BP BP 02/29/20 11:17 18 100/64 02/29/20 09:36 20 18 18 18 02/29/20 07:28 02/29/20 07:21 18 148/84 H 02/29/20 04:00 20 118/73 Pulse Ox Pulse Ox Pulse Ox Pulse Ox Pulse Ox 02/29/20 11:17 94 02/29/20 09:36 90 86 L 91 91 02/29/20 07:28 02/29/20 07:21 90 02/29/20 04:00 95
--- NOTE | 2020-03-01 05:58 | Electrocardiogram Report ---
Test Reason : Blood Pressure : / mmHG Vent. Rate : 061 BPM Atrial Rate : 061 BPM P-R Int : 190 ms QRS Dur : 090 ms QT Int : 440 ms P-R-T Axes : 066 -25 025 degrees QTc Int : 442 ms Sinus rhythm with marked sinus arrhythmia Low voltage QRS Cannot rule out Anterior infarct (cited on or before 18-JUN-2019) Nonspecific T wave abnormality Abnormal ECG When compared with ECG of 28-FEB-2020 06:50, No significant change was found Confirmed by Broderick Stewart ([id number]) on 03/01/2020 5:58:43 AM Referred By: REFERRED SELF Confirmed By:Broderick Stewart
--- NOTE | 2020-03-01 07:57 | Discharge Summary ---
Date of Service March 01, 2020 Admission HPI Per Admitting Provider 70 year old female with PMH CAD, HTN, chronic pain, cyclic vomiting, and other problems listed below who presents to the ED with reports of shortness of breath and right leg pain and swelling. Patient recently admitted to [facility] 01/29-01/31 for evaluation of hypoxia. During admission, COVID testing was negative. Patient underwent a VQ with perfusion only that showed low PE probability. Venous doppler show age indeterminate non occlusive DVT in the right posterior tibial vein. Patient was offered anticoagulation with Lovenox bridge to Coumadin however she declined and was discharged. She was able to be weaned from oxygen before discharge as well. Patient reports yesterday morning she woke up with left sided chest pain that was radiating into her left shoulder. She took 3 SL nitro and the pain subsequently subsided. No further episodes of chest pain. Patient notes worsening shortness of breath with exertion as well as at rest that began yesterday as well. She notes increasing BLLE edema, right greater than left, and reports right calf pain. She reports a 10lb weight gain over the past week. No cough or sputum production. Denies fever and chills. No lightheadedness, dizziness, diaphoresis, or syncopal event. Denies abdominal pain, nausea, vomiting, and diarrhea. No urinary symptoms. Upon arrival to the ED, patient is found to be hypoxic on room air at 85%. This improved with oxygen 3L via oxymak. RLE venous doppler is negative for DVT. CTA chest is negative for PE. Admission Exam Per Admitting Provider Constitutional: WD/WN, vitals as above Eyes: PERRL, conjunctivae normal, anicteric sclerae ENMT: external ear and nose normal, oropharynx normal Respiratory: normal respiratory effort; no respiratory distress Auscu ltation: + crackles (faint, BL bases) Cardiovascular: Rate/Rhythm: regular rate and regular rhythm Vessels: normal peripheral pulses Extremities: + edema (+1-2 pitting BLLE, R > L ) Gastrointestinal (Abdomen): normal bowel sounds, soft, nontender, no hepatosplenomegaly Musculoskeletal: no cyanosis or clubbing, extremities motor strength 5/5 Skin: no rashes, warm and dry Neurologic: PERRL, EOMI, accommodation nl, no face palsy, no dysarthria Psychiatric: A+Ox3, euthymic affect Principal Diagnosis Acute on chronic diastolic congestive heart failure, acute respiratory failure with hypoxemia, right leg cellulitis, CAD, hypertension Discharge Exam Constitutional well developed, well nourished and + obese; no acute distress and not ill appearing Eyes PERRL, conjunctivae normal, anicteric sclerae ENMT external ear and nose normal, oropharynx normal Neck trachea midline, no thyromegaly Respiratory normal respiratory effort; no respiratory distress Auscultation: lungs clear to auscultation bilaterally Cardiovascular Rate/Rhythm: regular rate and regular rhythm Heart Sounds: no murmur Extremities: + edema (Bilateral leg edema with dusky discoloration involving the right leg) Gastrointestinal (Abdomen) Inspection/Auscultation: abdomen normal to inspection and normal bowel sounds; abdomen not distended Percussion/Palpation: abdomen soft; abdomen nontender Neurologic moves all extremities; no focal motor deficits Lymphatic no cervical or axillary lymphadenopathy Discharge Data Allergies Allergy/AdvReac Type Severity Reaction Status Date / Time latex Allergy Intermediate Rash Verified 02/27/20 16:45 nickel Allergy Intermediate SEVERE Verified 02/27/20 16:45 DERMATITIS NSAIDS (Non-Steroidal Allergy Intermediate HX OF Verified 02/27/20 16:45 Anti-Inflamma BLEEDING ULCERS-TO AVOID aspirin AdvReac Intermediate bleeding Verified 02/27/20 16:45 ulcers Consultations 02/27/20 17:26 ED Decision to Admit Stat 02/27/20 19:36 Consult Cardiology Routine Ordered Studies 02/27/20 13:08 US venous doppler LE RT Stat 02/27/20 14:59 CT angio chest PE protocol Stat Hospital Course (1) Acute respiratory failure with hypoxia: Acute on Chronic Diastolic CHF exacerbation Pulmonary embolism has been ruled out Recent admission to [facility] 01/29-01/31 for hypoxia. During admission, COVID testing was negative. Patient underwent a VQ with perfusion only that showed low PE probability. Venous doppler show age indeterminate non occlusive DVT in the right posterior tibial vein. Patient was offered anticoagulation with Lovenox bridge to Coumadin however she declined due to history of GI bleeding. Clinically improved, no dyspnea, still at 2 L oxymask- wean off Another dose of Lasix 20mg IV on 02/28/2020 with additional K 2D echocardiogram shows no new wall motion abnormalities and diastolic dysfunction with normal LV systolic function. Appreciate cardiology input and recommendation Clinically much better 2 steps O2 saturation test showed she will need oxygen with ambulation She wants to go home today and hopefully she will be discharged this afternoon Right Leg Cellulitis -RLE venous doppler no longer shows the previous thrombus. CTA chest negative for PE. -given lower extremity edema and reported 10lb weight gain, consider CHF. Will trial Lasix 40mg IV x 1. Echo 06/2019 EF > 70%, grade I diastolic dysfunction. Update echo. Check proBNP. Also noted that patient is on a high dose of amlodipine (20mg daily) which could be contributing to lower extremity edema. Will reduce dose to 10mg daily. Continue current antibiotic - (2) Chest pain: No acute ACS Likely will have outpatient nuclear stress testing in future (3) CAD (coronary artery disease): -patient reports chest pain day prior to admission that resolved after 3 SL nitro - trop x 3 negative EKG no signs of acute ischemic -continue ASA, statin, beta dory (4) Hypertension: -BP currently controlled -reducing amlodipine dose (from usual 20mg to 10mg), holding HCTZ while receiving IV Lasix, continue carvedilol (5) Chronic pain: -continue home fentanyl patch and PRN tramdol (6) Hypothyroidism: -continue levothyroxine (7) Anxiety: (8) Depression: -continue home meds (9) DVT prophylaxis: -SQ Lovenox Likely discharge this afternoon Total Time Total Time Spent Total Time Spent (In Minutes): 35 minutes Total Time Includes: Examination of the Patient, Discharge Planning, Medication Reconciliation and Communication With Other Providers Discharge Plan Discharge Items Patient Disposition: Home - Self-Care Reason For Visit: HYPOXIA Discharge Diagnosis: Acute on chronic diastolic congestive heart failure, acute respiratory failure with hypoxemia, right leg cellulitis, CAD, hypertension Condition on Discharge: Fair Activity: Resume your previous activity Non-emergency contact: Primary Care Provider Call non-emergency contact if: you have any medication questions and your symptoms worsen Follow-up/Referrals: Charanjit Spann MD [Primary Care Provider] - 03/07/20 10:40 am (03/07/2020 10:40 AM Adelso Baez DO [facility]. Please have a basic metabolic panel done during your visit to monitor kidney function and electrolytes. Cardiology office will call with an appointment ) Diet: Heart Healthy Addtl Attending Provider Instructions: Please take precaution to avoid falls Please take oxygen as prescribed Pending Studies at Discharge: No Stand-Alone Forms: My [facility], Smoking Cessation Medications and DC Order Prescriptions: New cephalexin 500 mg Capsule 500 mg PO .3 times daily Qty: 15 RF: 0 furosemide 20 mg Tablet 20 mg PO QAM Qty: 30 RF: 0 furosemide 20 mg Tablet 20 mg PO QPM PRN (Reason: edema) Qty: 30 RF: 0 Continued nitroglycerin [Nitrostat] 0.3 mg Tablet, Sublingual 0.3 mg sublingual UD PRN (Reason: Chest Pain) RF: 0 aspirin [Aspir-81] 81 mg Tablet,Delayed Release (Dr/Ec) 81 mg PO QAM RF: 0 magnesium oxide 400 mg (241.3 mg magnesium) Tablet 400 mg PO BID RF: 0 nystatin 100,000 unit/gram Powder 1 applic TOPICAL TID PRN (Reason: BREAKOUTS) RF: 0 Calcium 600 + D(3) 600 mg calcium- 200 unit Capsule 1 cap PO BID RF: 0 olopatadine 0.2 % Drops 1 drp OPB QAM RF: 0 epinephrine 0.3 mg/0.3 mL Syringe 0.3 mg IM Q3H PRN (Reason: Allergic Reaction) RF: 0 Ocuvite Adult 50 Plus 250-5-1 mg Capsule 1 cap PO QAM RF: 0 pantoprazole 40 mg tablet,delayed release (DR/EC) 40 mg PO QAM RF: 0 mirtazapine 7.5 mg tablet 7.5 mg PO HS RF: 0 Latuda 20 mg Tablet 20 mg PO QPM RF: 0 gabapentin 300 mg capsule 600 mg PO HS RF: 0 carvedilol 12.5 mg tablet 12.5 mg PO BID RF: 0 amlodipine 10 mg tablet 20 mg PO DAILY RF: 0 trazodone 150 mg tablet 300 mg PO HS RF: 0 diazepam 5 mg tablet 5 mg PO BID PRN (Reason: Anxiety) RF: 0 atorvastatin [Lipitor] 40 mg Tablet 40 mg PO QAM RF: 0 levothyroxine 75 mcg Tablet 75 mcg PO QAM RF: 0 buspirone 10 mg Tablet 10 mg PO TID RF: 0 tramadol [Ultram] 50 mg Tablet 50 mg PO Q8 PRN (Reason: severe pain) RF: 0 pramipexole [Mirapex] 0.125 mg Tablet 0.125 mg PO HS PRN (Reason: Restless Leg(S)) RF: 0 potassium chloride [Klor-Con M20] 20 mEq tablet,ER particles/crystals 20 meq PO BID RF: 0 prochlorperazine maleate 5 mg tablet 10 mg PO BID PRN (Reason: Nausea) RF: 0 polyethylene glycol 3350 17 gram Powder In Packet 17 g PO DAILY PRN (Reason: Constipation) RF: 0 ondansetron HCl [Zofran] 8 mg Tablet 8 mg PO Q6H PRN (Reason: Nausea) RF: 0 promethazine 25 mg Tablet 25 mg PO Q6H PRN (Reason: Nausea) RF: 0 fentanyl [Duragesic] 25 mcg/hr patch 72 hour 1 patch topical [id number] RF: 0 fentanyl [Duragesic] 12 mcg/hr patch 72 hour 1 patch topical [id number] RF: 0 hydroxyzine HCl 25 mg tablet 100 mg PO HS RF: 0 Discontinued hydrochlorothiazide 25 mg tablet 25 mg PO DAILY RF: 0 Discharge Orders: Discharge Order (Routine); Ordered 02/29/20 Ordered By: Ramírez Sotelo Admission Data Admit Date/Time: 02/27/20 17:41 Attending Provider: Ramírez Sotelo Admit Provider: Kyler Pineda Primary Care Provider: Charanjit Spann Other Providers: Kyler Pineda ; Yoel Ramos Other Interventions: Discharge Summary Assessment (RN) Last Done: 02/29/20 15:43 DC Date/Time DO NOT enter until pt leaves facility: 02/29/20 18:41
[2020-03-01] MEDS ORDERED: FUROSEMIDE 20 MG TAB PO SCH (09:00)
== END 2020-02-29 18:41 | disposition home or self-care (01) | DRG 291 ==
LOC: ED 12:30 → SUATTDRO 17:41 → 2N 17:41

== ENCOUNTER 2020-04-02 17:24 | Inpatient (IN) ==
[2020-04-02] MEDS ORDERED: PROCHLORPERAZINE 2 ML IV ONE (17:37)
[2020-04-02] MEDS ORDERED: DEXAMETHASONE **PF** INJ 10 MG/ML VIAL IV ONE (17:37)
[2020-04-02] MEDS ORDERED: ACETAMINOPHEN 1,000 MG/100 ML VIAL IV STA (17:37)
[2020-04-02] MEDS ORDERED: SODIUM CHLORIDE 0.9% 500 ML IV ONE (17:37)
[2020-04-02] MEDS ORDERED: DiphenhydrAMINE HCL 50 MG/ML VIAL IV STA (17:37)
--- NOTE | 2020-04-02 18:05 | Emergency Department Note ---
Impression & Plan Migraine, Chronic pain ED Provider Note NAME: JOVANNI DE SANTIAGO AGE: 70 SEX: F ARRIVES VIA: Ambulance INFORMANT: Patient, ED PROVIDER(S): Adan Baxter MD CHIEF COMPLAINT: Migraine PLAN: Disposition: Admit MEDICAL DECISION MAKING: The patient is a pleasant 70-year-old woman with a past medical history of chronic migraines, chronic pain syndrome, CAD, hypertension, osteoarthritis, laminectomy who presents emerged department with development of migraine which began yesterday that she reports is typical of her migraines and began abruptly focused on the right side of her head. Prior to this she reports feeling healthy and denies any fevers, chills, cough, congestion, nausea, vomiting, diarrhea, urinary symptoms. On arrival patient is comfortable no acute distress, afebrile stable vital signs. She is neurologically intact. She mabel ears clinically dry. Given the patient reports that her migraine is typical in character and severity in the setting of her reassuring exam we did agree there is no need for blood work or imaging at this time. Will treat with migraine cocktail. Unfortunately the patient's sx did not improved with initial IVF, Compazine, Apap, Diphenhydramine, Decadron. Therefore CT head was performed and was negative. Subsequently given Haldol in 500cc NSS but also denied improvement. Magnesium given but also denies improvement. Thus, patient was agreeable with admission for intractable migraine. Depakote ordered for additional attempt at symptoms improvement. Case was discussed with Dr. Miller, [facility] hospitalist, who will evaluate the patient for admission. Additional blood work per admitting team. Triage Nursing notes reviewed and agree them. Prior medical records reviewed Vital Signs: reviewed and remarkable for no significant abnormalities Differential diagnosis: Migraine headache, meningitis, sinusitis, CO exposure, ICH, SAH, infection, tumor, headache, sinus thrombosis, arterial dissection, as well as other pa thologies. ER treatment provided: See below. Imaging studies: CT SCAN OF THE BRAIN WITHOUT IV CONTRAST CLINICAL HISTORY: Migraine headache. COMPARISON STUDY: CT of the brain dated 01/30/2020. TECHNIQUE: Unenhanced axial CT scan of the brain is performed from the vertex to the skull base. A dose lowering technique was utilized adhering to the principles of ALARA. CT DOSE: 614.27 mGy.cm FINDINGS: Brain parenchyma: There is mild age-related involutional change. There is no hemorrhage, mass effect, or evidence of acute territorial ischemia by CT criteria. Hernandez-white matter differentiation is preserved. No extra-axial fluid collection is seen. Ventricles, sulci, cisterns: Prominent secondary to involutional change. Intracranial vasculature: There is atherosclerotic calcification of the cavernous carotid and vertebral arteries. Calvarium: Unremarkable. Sinuses and mastoids: The visualized paranasal sinuses are clear. The mastoid air cells are well pneumatized. Orbits: The bony orbits are grossly intact. There are bilateral ocular lens implants. IMPRESSION: There is no hemorrhage, mass effect, or evidence of acute territo rial ischemia by CT criteria. Consultation(s): Case was discussed with Dr. Miller, [facility] hospitalist, who will evaluate the patient for admission. HPI: The patient is a pleasant 70-year-old woman with a past medical history of chronic migraines, chronic pain syndrome, CAD, hypertension, osteoarthritis, laminectomy who presents emerged department with development of migraine which began yesterday that she reports is typical of her migraines and began abruptly focused on the right side of her head. Prior to this she reports feeling healt hy and denies any fevers, chills, cough, congestion, nausea, vomiting, diarrhea, urinary symptoms. ROS: See above HPI for pertinent positives & negatives. A total of 10 systems reviewed and were otherwise negative. PAST MEDICAL HISTORY:See Below PAST SURGICAL HISTORY:See Below FAMILY HISTORY:See Below SOCIAL HISTORY:See Below HOME MEDICATIONS:See Below ALLERGIES:See Below VITALS:See Below PHYSICAL EXAMINATION: GENERAL: Awake, alert, uncomfortable-appearing, in no distress HENT: Normocephalic, atraumatic. Oropharynx with dry mucous membranes and otherwise unremarkable. EYES: Normal conjunctiva. Sclera non-icteric. EOMI. No nystamgus. PEARRL. NECK: Supple. No nuchal rigidity. FROM. No JVD. RESPIRATORY: Clear to auscultation. CARDIAC: Regular rate, normal rhythm. Extremities warm and well perfused. Pulses equal. ABDOMEN: Soft, non-distended. No tenderness to palpation. No rebound or guarding. No masses. RECTAL: Deferred. MUSCULOSKELETAL: Chest examination reveals no tenderness. The back is symmetrical on inspection without obvious abnormality. There is no CVA tenderness to palpation. No joint edema. LOWER EXTREMITIES: Calves are equal size bilaterally and non-tender. No edema. No discoloration. NEURO: Normal sensorium. No sensory or motor deficits noted. 5/5 strength and SILT x 4 extremities. Cerebellar function intact including glrqrq-zv-[id number], alternating palms, [id number]. DTRs wnl. No clonus. SKIN: No rash or jaundice noted. Adan Baxter MD Past Med/Surg History Medical History Anemia (Chronic) HX OF Anxiety (Chronic) CAD (coronary artery disease) (Chronic) 2017-[facility] to [facility] Cervical spondylolysis (Chronic) Chronic pain (Chronic) Colitis (Chronic) Cyclical vomiting (Chronic) Deep vein thrombosis (Chronic) 4 YEARS AGO Degenerative disc disease (Chronic) Depression (Chronic) Dyslipidemia (Chronic) GI bleed history of. declining anticoagulation due to hx of GIB. Hyperlipidemia (Chronic) Hypertension (Chronic) Hypothyroidism (Chronic) Migraine (Chronic) Mood disorder (Chronic) Myocardial Infarction (Chronic) 2 YEARS AGO Osteoarthritis (Chronic) Post traumatic stress disorder (Chronic) Pulmonary embolism (Chronic) 2 YEARS OLD (UNSURE OF REASON) Restless leg syndrome (Chronic) Scoliosis (Chronic) Surgical History Fusion of spine (Chronic) LUMBAR H/O ovarian cystectomy (Chronic) H/O repair of right rotator cuff (Chronic) H/O spinal fusion (Chronic) "1st surgery in [place], then multiple surgeries Dr. Catherine at [facility]" History of adenoidectomy (Chronic) History of anesthesia reaction (Chronic) WOKE UP IN MIDDLE OF SPINAL SURGERIES History of appendectomy (Chronic) History of cataract surgery (Chronic) LEFT AND RIGHT History of heart artery stent (Chronic) 2017- STENT PLACED AT [facility] (DR. 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: No Beliefs That Will Affect Care: None marital status: Single Current Living Situation: Alone current occupational status: retired Other Information That Helps Us Care for You: No Feels Safe at Home: Yes Safety Concerns: Feels Safe At This Time Smoking Status: Never smoker Second Hand Exposure: No ; Hx Alcohol Use: No Hx Substance Use: No Allergies Allergies Allergy/AdvReac Type Severity Reaction Status Date / Time latex Allergy Intermediate Rash Verified 04/03/20 00:24 nickel Allergy Intermediate SEVERE Verified 04/03/20 00:24 DERMATITIS NSAIDS (Non-Steroidal Allergy Intermediate HX OF Verified 04/03/20 00:24 Anti-Inflamma BLEEDING ULCERS-TO AVOID aspirin AdvReac Intermediate bleeding Verified 04/03/20 00:24 ulcers Home Meds Home Medications Medication Instructions Recorded Confirmed atorvastatin [Lipitor] 40 mg PO QAM 12/13/18 04/02/20 buspirone 10 mg PO TID 12/13/18 04/02/20 levothyroxine 75 mcg PO QAM 12/13/18 04/02/20 pramipexole [Mirapex] 0.125 mg PO HS PRN 01/25/19 04/03/20 tramadol [Ultram] 50 mg PO Q8 PRN 01/25/19 04/02/20 polyethylene glycol 3350 17 g PO DAILY PRN 05/12/19 04/03/20 prochlorperazine maleate 10 mg PO BID PRN 05/12/19 04/03/20 promethazine 25 mg PO Q6H PRN 05/12/19 04/03/20 Calcium 600 + D(3) 1 cap PO BID 05/23/19 04/02/20 Ocuvite Adult 50 Plus 1 cap PO QAM 05/23/19 04/03/20 aspirin [Aspir-81] 81 mg PO QAM 05/23/19 04/02/20 epinephrine 0.3 mg IM Q3H PRN 05/23/19 04/03/20 magnesium oxide 400 mg PO BID 05/23/19 04/03/20 nitroglycerin [Nitrostat] 0.3 mg SUBLINGUAL UD PRN 05/23/19 04/03/20 olopatadine 1 drp OPB QAM 05/23/19 04/03/20 fentanyl [Duragesic] 1 patch TOPICAL [id number] 05/26/19 04/03/20 fentanyl [Duragesic] 1 patch TOPICAL [id number] 05/26/19 04/03/20 mirtazapine 7.5 mg PO HS 07/03/19 04/03/20 pantoprazole 40 mg PO QAM 07/03/19 04/03/20 Latuda 20 mg PO QPM 08/04/19 04/02/20 gabapentin 600 mg PO HS 01/30/20 04/03/20 amlodipine 10 mg PO DAILY 02/27/20 04/03/20 carvedilol 12.5 mg PO BID 02/27/20 04/02/20 diazepam 5 mg PO HS PRN 02/27/20 04/02/20 hydroxyzine HCl 25 mg PO BID PRN 04/03/20 04/03/20 tizanidine 4 mg PO BID PRN 04/03/20 04/03/20 trazodone 200 mg PO HS 04/03/20 04/03/20 Previous Rx's Medication Instructions Recorded furosemide 20 mg PO QAM #30 tab 02/29/20 furosemide 20 mg PO QPM PRN #30 tab 02/29/20 Results & Data (ED) Vital Signs Vital Signs - 24 hr 04/02/20 17:33 04/02/20 17:45 04/02/20 17:47 Temperature 36.7 C Temperature Source Oral Pulse Rate 90 91 H 98 H Pulse Rate [Apical] Pulse Rate from SpO2 Sensor 90 90 Respiratory Rate 21 20 17 Respiratory Effort / Characteristics Non-Labored Respiratory Depth Normal Blood Pressure 169/89 H 151/89 H Blood Pressure [Right Arm] Blood Pressure Mean 111 109 Blood Pressure Mean [Right Arm] Blood Pressure Position Sitting Pulse Oximetry 92 92 92 Oxygen Delivery Method Room Air Sepsis Recent Fever Within 48 Hours No Sepsis Action Taken by Nursing No Action Required 04/02/20 17:50 04/02/20 17:53 04/02/20 18:00 Temperature Temperature Source Pulse Rate 91 H 98 H 88 Pulse Rate [Apical] Pulse Rate from SpO2 Sensor 91 H 98 H Respiratory Rate 18 26 H 23 Respiratory Effort / Characteristics Respiratory Depth Blood Pressure 171/105 H 151/89 H Blood Pressure [Right Arm] Blood Pressure Mean 131 119 Blood Pressure Mean [Right Arm] Blood Pressure Position Pulse Oximetry 92 92 Oxygen Delivery Method Sepsis Recent Fever Within 48 Hours Sepsis Action Taken by Nursing 04/02/20 18:10 04/02/20 18:20 04/02/20 18:30 Temperature Temperature Source Pulse Rate 84 80 78 Pulse Rate [Apical] Pulse Rate from SpO2 Sensor Respiratory Rate 13 22 19 Respiratory Effort / Characteristics Respiratory Depth Blood Pressure 151/92 H Blood Pressure [Right Arm] Blood Pressure Mean 115 Blood Pressure Mean [Right Arm] Blood Pressure Position Pulse Oximetry Oxygen Delivery Method Sepsis Recent Fever Within 48 Hours Sepsis Action Taken by Nursing 04/02/20 18:31 04/02/20 18:48 04/02/20 20:00 Temperature Temperature Source Pulse Rate 73 84 Pulse Rate [Apical] 81 Pulse Rate from SpO2 Sensor Respiratory Rate 16 14 13 Respiratory Effort / Characteristics Respiratory Depth Blood Pressure 150/94 H Blood Pressure [Right Arm] 151/92 H Blood Pressure Mean 122 Blood Pressure Mean [Right Arm] 111 Blood Pressure Position Pulse Oximetry 92 90 Oxygen Delivery Method Room Air Sepsis Recent Fever Within 48 Hours Sepsis Action Taken by Nursing 04/02/20 20:30 04/02/20 21:00 04/02/20 21:30 Temperature Temperature Source Pulse Rate 86 80 82 Pulse Rate [Apical] Pulse Rate from SpO2 Sensor Respiratory Rate 20 18 20 Respiratory Effort / Characteristics Respiratory Depth Blood Pressure 147/89 H 127/68 142/75 H Blood Pressure [Right Arm] Blood Pressure Mean 102 81 92 Blood Pressure Mean [Right Arm] Blood Pressure Position Pulse Oximetry 90 91 94 Oxygen Delivery Method Room Air Sepsis Recent Fever Within 48 Hours Sepsis Action Taken by Nursing 04/02/20 22:00 04/02/20 22:30 04/02/20 23:55 Temperature Temperature Source Pulse Rate 83 86 Pulse Rate [Apical] 94 H Pulse Rate from SpO2 Sensor Respiratory Rate 20 13 21 Respiratory Effort / Characteristics Respiratory Depth Blood Pressure 134/75 135/65 Blood Pressure [Right Arm] 160/96 H Blood Pressure Mean 107 104 Blood Pressure Mean [Right Arm] 117 Blood Pressure Position Pulse Oximetry 91 93 92 Oxygen Delivery Method Room Air Sepsis Recent Fever Within 48 Hours Sepsis Action Taken by Nursing Administered Medications Heparin Sodium (Porcine) (Heparin Sod 100 Unit/Ml Flush) 5 ml FLUSH PRN PRN PRN Reason: Flush Stop: 05/03/20 01:54 Last Admin: 04/03/20 02:01 Dose: 5 ml Documented by: [id number] Discontinued Medications Dexamethasone Sodium Phosphate (Decadron Pf) 10 mg IV NOW ONE Stop: 04/02/20 17:38 Last Admin: 04/02/20 17:55 Dose: 10 mg Documented by: [id number] Diphenhydramine HCl (Benadryl) 25 mg IV NOW STA Stop: 04/02/20 17:38 Last Admin: 04/02/20 17:54 Dose: 25 mg Documented by: [id number] Hydromorphone HCl (Dilaudid) 1 mg IV NOW STA Stop: 04/03/20 01:40 Last Admin: 04/03/20 01:50 Dose: 1 mg Documented by: [id number] Sodium Chloride (Nss) 500 mls @ 999 mls/hr IV .Q31M ONE Stop: 04/02/20 18:07 Last Infusion: 04/02/20 18:53 Dose: 0 mls/hr Documented by: [id number] Admin: 04/02/20 17:55 Dose: 999 mls/hr Documented by: [id number] Acetaminophen (Ofirmev) 1,000 mg in 100 mls @ 400 mls/hr IV NOW STA Stop: 04/02/20 17:51 Last Infusion: 04/02/20 19:09 Dose: 0 mls/hr Documented by: [id number] Infusion: 04/02/20 18:50 Dose: 400 mls/hr Documented by: [id number] Admin: 04/02/20 17:55 Dose: 400 mls/hr Documented by: [id number] Prochlorperazine (Compazine) 2 mls @ 1 mls/min IV ONE ONE Stop: 04/02/20 17:38 Last Admin: 04/02/20 17:55 Dose: 1 mls/min Documented by: [id number] Haloperidol Lactate 5 mg/ (Sodium Chloride) 501 mls @ 999 mls/hr IV NOW STA Stop: 04/02/20 20:43 Last Infusion: 04/02/20 21:21 Dose: 0 mls/hr Documented by: [id number] Admin: 04/02/20 20:49 Dose: 999 mls/hr Documented by: [id number] Magnesium Sulfate/Dextrose (Magnesium Sulfate / D5w) 1 gm in 100 mls @ 50 mls/hr IV ONE ONE Stop: 04/03/20 00:36 Last Infusion: 04/02/20 23:47 Dose: 0 mls/hr Documented by: [id number] Admin: 04/02/20 22:45 Dose: 50 mls/hr Documented by: [id number] Valproic Acid 1,000 mg/ (Dextrose) 110 mls @ 110 mls/hr IV NOW STA Stop: 04/02/20 23:12 Last Infusion: 04/03/20 00:50 Dose: 0 mls/hr Documented by: [id number] Admin: 04/02/20 23:54 Dose: 110 mls/hr Documented by: [id number] Blood Pressure Blood Pressure Findings: Elevated blood pressure Blood Pressure Disposition: elevated BP felt to be situational Discharge Plan Visit Data *Final* Discharge Date/Time: 04/03/20 01:05 Chief Complaint: Headache ED Provider: Adan Baxter Discharge Problem: Migraine, Chronic pain Patient Disposition: Admitted As Inpatient Discharge Instructions Interventions: ED Discharge Assessment Last Done: 04/03/20 01:05 Discharge Problem: Migraine Qualifiers: Migraine type: unspecified Status migrainosus presence: without status migrainosus Intractability: intractable Qualified Code(s): G43.919 - Migraine, unspecified, intractable, without status migrainosus
[2020-04-02] MEDS ORDERED: HALOPERIDOL LACTATE 5 MG in SODIUM CHLORIDE 0.9% 500 ML IV STA (20:13)
--- NOTE | 2020-04-02 20:49 | CT Scan Report ---
CT SCAN OF THE BRAIN WITHOUT IV CONTRAST CLINICAL HISTORY: Migraine headache. COMPARISON STUDY: CT of the brain dated 01/30/2020. TECHNIQUE: Unenhanced axial CT scan of the brain is performed from the vertex to the skull base. A do se lowering technique was utilized adhering to the principles of ALARA. CT DOSE: 614.27 mGy.cm FINDINGS: Brain parenchyma: There is mild age-related involutional change. There is no hemorrhage, mass effect, or evidence of acute territorial ischemia by CT criteria. Hernandez-white matter differentiation is prese rved. No extra-axial fluid collection is seen. Ventricles, sulci, cisterns: Prominent secondary to involutional change. Intracranial vasculature: There is atherosclerotic calcification of the cavernous carotid and vertebr al arteries. Calvarium: Unremarkable. Sinuses and mastoids: The visualized paranasal sinuses are clear. The mastoid air cells are well pneu matized. Orbits: The bony orbits are grossly intact. There are bilateral ocular lens implants. IMPRESSION: There is no hemorrhage, mass effect, or evidence of acute territorial ischemia by CT calin chaves. ACT 112: Negative or not required by law. Electronically signed by: Ivan Smith M.D. 04/02/2020 8:47 PM
[2020-04-02] MEDS ORDERED: MAGNESIUM SULFATE / D5W 1 GM/100 ML BAG IV ONE (22:37)
[2020-04-02] MEDS ORDERED: VALPROATE SOD 1,000 MG in DEXTROSE 5% 100 ML IV STA (23:11)
[2020-04-03] MEDS ORDERED: EPINEPHRINE ADULT AUTO-INJECT 0.3 MG SYR IM PRN (01:39)
[2020-04-03] MEDS ORDERED: TRAMADOL HCL 50 MG TABLET PO PRN (01:39)
[2020-04-03] MEDS ORDERED: HYDROmorphone INJ 1 MG/ML SYRINGE IV STA (01:39)
[2020-04-03] MEDS ORDERED: POLYETHYLENE (MIRALAX) 17 GM PACK PO PRN (01:39)
[2020-04-03] MEDS ORDERED: ACETAMINOPHEN 325 MG TAB PO PRN (01:39)
[2020-04-03] MEDS ORDERED: PRAMIPEXOLE DIHYDROCHLO 0.25 MG TAB PO PRN (01:39)
[2020-04-03] MEDS ORDERED: FUROSEMIDE 20 MG TAB PO PRN (01:39)
[2020-04-03] MEDS ORDERED: ONDANSETRON INJ 2 MG/ML 2 ML VIAL IV PRN (01:39)
[2020-04-03] MEDS ORDERED: TIZANIDINE HCL 4 MG TABLET PO PRN (01:39)
[2020-04-03] MEDS ORDERED: diazePAM 5 MG TABLET PO PRN (01:39)
[2020-04-03] MEDS: HEPARIN 100 UNIT/ML 5ML FLUSH FLUSH PRN ×5 (02:01→22:29)
--- NOTE | 2020-04-03 03:15 | History and Physical Report ---
DATE OF ADMISSION: 04/03/2020 CHIEF COMPLAINT: Severe headache. HISTORY OF PRESENT ILLNESS: This 70-year-old female with past medical history significant for hyperlipidemia, hypothyroidism, prediabetes, hypertension, CAD, GERD, idiopathic scoliosis, cervical spondylolysis, postpolio syndrome, chronic pain syndrome, failed back surgical syndrome, recurrent depression, obesity, history of non-ST elevated myocardial infarction, generalized anxiety disorder, history of DVT, presents with severe headache. The patient has history of migraines. She says last episode was in August. She does not take any pain medication for migraine. Since yesterday 5 a.m., she started to have severe pain in the right side of the head, it was not getting better, so she came to the ER. It is her typical migraine. In the ER, she received Decadron, Benadryl, Compazine, Tylenol, magnesium, Haldol. ER physician as per algorithm is going to give Depakote. The patient says that her neurologist told her that to give morphine when she has severe pain.She was requesting for morphine. She says lights bothering her, sounds bothering her and denies any dizziness, no blurred vision, no earache, no runny nose, no sore throat, no cough, no chest pain, no shortness of breath, no fever, no chills. Nausea is better. No abdominal pain. Normal bowel and bladder movements. Otherwise, ambulates okay. ALLERGIES: LATEX, NICKEL, NSAIDS AND ASPIRIN. PAST MEDICAL HISTORY: As mentioned above. PAST SURGICAL HISTORY: I and D of the infection of the abdominal wall hematoma, colonoscopy, cataract surgery, EGDs, excision of excessive skin and subcutaneous tissue including lipectomy, abdominal infraumbilical panniculectomy, incision of the right wrist tendon sheath, spinal fuse surgery x5, appendectomy, ovarian cystectomy, right meniscal repair, right rotator cuff repair, right trigger finger release. MEDICATIONS: The patient is on Mirapex 0.125 mg p.o. at bedtime p.r.n., atorvastatin 40 mg p.o. a.m., Lasix 20 mg daily and 20 mg p.m. p.r.n., Zanaflex 4 mg p.o. t.i.d. p.r.n., fentanyl patch 37.5 mcg q.72 hours, hydrochlorothiazide 25 mg p.o. daily, amlodipine 10 mg p.o. daily, Valium 5 mg p.o. at bedtime p.r.n., tramadol 50 mg p.o. t.i.d. p.r.n., gabapentin 600 mg p.o. at bedtime, Protonix 40 mg p.o. daily, levothyroxine 75 mcg p.o. daily, promethazine 25 mg p.o. q. 6 hours p.r.n., hydroxyzine 25 mg p.o. q. 6 hours p.r.n. for anxiety, atorvastatin 100 mg p.o. at bedtime, Coreg 12.5 mg p.o. b.i.d., Latuda 20 mg p.o. daily, Remeron 7.5 mg p.o. every night, nitroglycerin 0.3 mg sublingual p.r.n., olopatadine 0.2% ophthalmic solution 1 drop into both eyes daily, potassium chloride 20 mEq p.o. b.i.d., BuSpar 10 mg p.o. t.i.d., aspirin 81 mg p.o. daily, MiraLax 17 g p.o. daily p.r.n., epinephrine p.r.n. for allergy, trazodone 200 mg p.o. at bedtime, calcium carbonate plus vitamin D 1 tablet b.i.d., multivitamins 1 tablet daily, magnesium oxide 400 mg p.o. b.i.d. FAMILY HISTORY: Significant for aunt has breast cancer. Father has glaucoma, legally blind in one eye. Sister has heart disorder. Father has hypertension. Mother has hypertension. SOCIAL HISTORY: Single. No smoking, no alcohol, no drug use. REVIEW OF SYMPTOMS: As per HPI. Rest of review of symptoms negative. PHYSICAL EXAMINATION: GENERAL: The patient is obese, seems to be having significant pain. VITAL SIGNS: Temperature 36.7, pulse 94, respiratory rate 21, blood pressure 160/96, oxygen 92% on room air. HEENT: No pallor, no icterus. Pupils equal, round, reactive to light. NECK: No JVD, no neck masses seen. CARDIOVASCULAR: S1, S2 heard, regular rate and rhythm, no murmur, no gallop. RESPIRATORY SYSTEM: Normal AP diameter. No accessory muscle use. No wheezing, no crackles. ABDOMEN: Soft, bowel sounds present, nontender. No distention. CENTRAL NERVOUS SYSTEM: Alert and oriented. Obeys commands. Moves extremities. EXTREMITIES: Mild trace pedal edema present, no erythema seen. LABORATORY DATA: Not done. IMAGING: CT of the head, no acute findings. ASSESSMENT AND PLAN: This is a 70-year-old female who presents with migraine attack. 1. Severe headache, intractable migraine, The patient received multiple medicines in the ER, but not helping. The patient requests for pain medication. We will give IV Dilaudid p.r.n. and monitor. If still not getting better, we will consider MRI, monitor in the medical floor. 2. History of coronary artery disease. Continue home medication of statin, aspirin, Coreg. Currently stable. 3. History of chronic pain syndrome: Continue home fentanyl patch. 4. Depression and anxiety: Continue Valium p.r.n., hydroxyzine, Remeron, BuSpar, trazodone. 5. Hyperlipidemia. Continue statin. 6. Hypertension. Continue her diuretics and Coreg, amlodipine and hydrochlorothiazide. Monitor the blood pressure. 7. Gastroesophageal reflux disease: On PPI. 8. Hypothyroidism: On Synthroid. 9. Pre-diabetes. We will follow HbA1c level. 10. Deep venous thrombosis prophylaxis, sequential compression devices. DISPOSITION: Observe in medical floor. Level 1 full code. Expect discharge home and follow with family doctor. MICHELLE
[2020-04-03] MEDS: HYDROmorphone INJ 0.5 MG/0.5 ML SYR IV PRN ×5 (05:49→22:29)
[2020-04-03] MEDS: LEVOTHYROXINE SODIUM 75 MCG TABLET PO SCH (05:49)
[2020-04-03 06:26] LABS: Hematocrit (blood only) 40.9 % (37-47); Hemoglobin 14.1 g/dL (12.0-16.0); Immature Granulocytes # (auto) 0.01 K/uL (0.00-0.02); Immature Granulocytes % (auto) 0.1 %; Lymphocytes # (auto) 1.96 K/uL (1.2-3.4); Lymphocytes % (auto) 21.1 %; Mean Corpuscular Hemoglobin 29.1 pg (25-34); Mean Corpuscular Hgb Conc 34.5 g/dL (32-36); Mean Corpuscular Volume 84.3 fL (80-100); Mean Platelet Volume 8.9 fL (7.4-10.4); Monocytes # (auto) 0.16 K/uL (0.11-0.59); Monocytes % (auto) 1.7 %; Neutrophils # (auto) 7.17 K/uL (1.4-6.5); Neutrophils % (auto) 77.1 %; Platelet Count 327 K/uL (130-400); RDW Coefficient of Variation 14.8 % (11.5-14.5); RDW Standard Deviation 45.3 fL (36.4-46.3); Red Blood Count 4.85 M/uL (4.2-5.4)
[2020-04-03 06:44] LABS: Estimated Average Glucose 140 mg/dl; Hemoglobin A1C 6.5 % (4.5-5.6)
[2020-04-03 07:04] LABS: Calcium 9.3 mg/dl (8.5-10.1); Creatinine Clr Calc Pharmacy 70.4 ml/min; Est GFR (African American) 89.4; Est GFR (Non-African American) 77.1; Magnesium 2.1 mg/dl (1.8-2.4); Potassium 3.8 mmol/L (3.5-5.1)
[2020-04-03] MEDS: CALCIUM 600MG + VIT D 400 IU TAB PO SCH ×2 (08:14→20:28)
[2020-04-03] MEDS: MAGNESIUM OXIDE 400 MG TAB PO SCH ×2 (08:15→20:28)
[2020-04-03] MEDS: AMLODIPINE BESYLATE 5 MG TAB PO SCH (08:15)
[2020-04-03] MEDS: PANTOprazole 40 MG TAB PO SCH (08:15)
[2020-04-03] MEDS: carvediloL 12.5 MG TAB PO SCH ×2 (08:15→20:28)
[2020-04-03] MEDS: FUROSEMIDE 20 MG TAB PO SCH (08:15)
[2020-04-03] MEDS: POTASSIUM CHLORIDE 20 MEQ TABCR PO SCH ×2 (08:16→20:27)
[2020-04-03] MEDS: ASPIRIN 81 MG ECTAB PO SCH (08:16)
[2020-04-03] MEDS: ATORVASTATIN 40 MG TAB PO SCH (08:16)
[2020-04-03] MEDS: CEROVITE ADV FORMULA TAB PO SCH (08:18)
[2020-04-03] MEDS ORDERED: 25mcg patch: fentaNYL PATCH REMOVE & WASTE SCH ×2 (08:59→16:59)
[2020-04-03] MEDS ORDERED: 12mcg patch: fentaNYL PATCH REMOVE & WASTE SCH (08:59)
[2020-04-03] MEDS ORDERED: fentaNYL 12 MCG/HR TDSY TD SCH (09:00)
[2020-04-03] MEDS ORDERED: fentaNYL 25 MCG/HR TDSY TD SCH ×2 (09:00→17:00)
[2020-04-03] MEDS: CHECK FENTANYL SCH ×3 (15:51→23:56)
[2020-04-03] MEDS ORDERED: CHECK FENTANYL SCH (16:00)
[2020-04-03] MEDS ORDERED: Nursing to Pharmacy Communication SCH (16:00)
--- NOTE | 2020-04-03 18:55 | Hospitalist Progress Note ---
Date of Service April 03, 2020 Assessment & Plan (1) Intractable migraine: -This is a 70-year-old female who presents with migraine attack. -patient is upgraded from observation status to full admission because of intractable migraine headache which has improved in severity so far but still p ersistent -continue current pain regimen and will need re-assessment tomorrow History of chronic pain syndrome -Continue home fentanyl patch. -Depression and anxiety -Continue Valium p.r.n., hydroxyzine, Remeron, BuSpar, trazodone. History of coronary artery disease -Continue home medication of statin, aspirin, Coreg. Hyperlipidemia -Continue statin. Hypertension -Continue her diuretics and Coreg, amlodipine and hydrochlorothiazide. Gastroesophageal reflux disease -On PPI. Hypothyroidism -On Synthroid. Pre-diabetes vs borderline diabetes -HbA1c 6.5 -counseling on diet and excercise Deep venous thrombosis prophylaxis, sequential compression devices. Admission and Anticipated Discharge Date Admission Date: April 03, 2020 Subjective Patient reporting relief with the headaches but still persistent. She will be upgraded to full admission for the intractable migraine headache. no chest pain. no shortness of breath. no abdomen pain. no nausea. no vomiting. no visual disturbances Review of Systems Review of Systems: All systems reviewed & are unremarkable except as noted in Subjective Physical Exam Eyes: PERRL, conjunctivae normal, anicteric sclerae EOM intact bilaterally Neck: trachea midline, no thyromegaly normal visual inspection Respiratory: normal respiratory effort, lungs clear to auscultation Cardiovascular: Rate/Rhythm: regular rhythm Gastrointestinal (Abdomen): normal bowel sounds, soft, nontender, no hepatosplenomegaly Musculoskeletal: Head/Neck/Chest: normocephalic and head atraumatic Neurologic: PERRL, EOMI, accommodation nl, no face palsy, no dysarthria CN's II-XI intact bilaterally Psychiatric: A+Ox3, euthymic affect Results & Data Results & Data ([facility]) Vital Signs (Past 12 Hours) Vital Signs Temp Resp BP Pulse Ox 04/03/20 07:27 36.5 C 16 132/78 93
[2020-04-03] MEDS ORDERED: LURASIDONE HCL 40 MG TAB PO SCH (21:00)
[2020-04-03] MEDS ORDERED: TRAZODONE HCL 100 MG TAB PO SCH ×2 (21:00)
[2020-04-03] MEDS ORDERED: GABAPENTIN 300 MG CAP PO SCH (21:00)
[2020-04-03] MEDS ORDERED: MIRTAZAPINE TAB 15 MG TAB PO SCH (21:00)
[2020-04-04] MEDS: LEVOTHYROXINE SODIUM 75 MCG TABLET PO SCH (05:59)
[2020-04-04] MEDS: HYDROmorphone INJ 0.5 MG/0.5 ML SYR IV PRN ×3 (06:02→14:02)
[2020-04-04] MEDS: HEPARIN 100 UNIT/ML 5ML FLUSH FLUSH PRN ×3 (06:03→17:13)
[2020-04-04] MEDS: PANTOprazole 40 MG TAB PO SCH (08:48)
[2020-04-04] MEDS: carvediloL 12.5 MG TAB PO SCH (08:48)
[2020-04-04] MEDS: CALCIUM 600MG + VIT D 400 IU TAB PO SCH (08:48)
[2020-04-04] MEDS: MAGNESIUM OXIDE 400 MG TAB PO SCH (08:48)
[2020-04-04] MEDS: FUROSEMIDE 20 MG TAB PO SCH (08:48)
[2020-04-04] MEDS: ATORVASTATIN 40 MG TAB PO SCH (08:48)
[2020-04-04] MEDS: CHECK FENTANYL SCH ×4 (08:49→16:31)
[2020-04-04] MEDS: ASPIRIN 81 MG ECTAB PO SCH (08:49)
[2020-04-04] MEDS: AMLODIPINE BESYLATE 5 MG TAB PO SCH (08:49)
[2020-04-04] MEDS: POTASSIUM CHLORIDE 20 MEQ TABCR PO SCH (08:49)
[2020-04-04] MEDS: CEROVITE ADV FORMULA TAB PO SCH (08:49)
--- NOTE | 2020-04-04 14:18 | Hospitalist Progress Note ---
Date of Service April 04, 2020 Assessment & Plan (1) Intractable migraine: -This is a 70-year-old female who presents with migraine attack. Acute migraine attack -CT head: No acute process There is no hemorrhage, mass effect, or evidence of acute territorial ischemia by CT criteria. -Patient was given Decadron, Compazine, Benadryl, etc. at the ER While admitted, she was given PRN Dilaudid with improvement of symptoms -Patient today reports migraine is almost resolved She reports that she is ready to go back home today -We will prescribe Tylenol 1 g 3 times daily PRN for headache, will also start with magnesium and B2 for migraine prophylaxis -Follow-up with PCP on Thursday as per discharge instructions History of chronic pain syndrome -Continue home fentanyl patch. -Depression and anxiety Stable -Continue Valium p.r.n., hydroxyzine, Remeron, BuSpar, trazodone. History of coronary artery disease No cardiac symptoms -Continue home medication of statin, aspirin, Coreg. Hyperlipidemia -Continue statin. Hypertension Stable -Continue her diuretics and Coreg, amlodipine and hydrochlorothiazide. Gastroesophageal reflux disease -On PPI. Hypothyroidism -On Synthroid. Pre-diabetes vs borderline diabetes -HbA1c 6.5 -counseling on diet and excercise Deep venous thrombosis prophylaxis, sequential compression devices. Plan of care discussed with patient in detail and at length All questions answered She is understanding, agreeable, comfortable with plan of care Admission and Anticipated Discharge Date Admission Date: April 03, 2020 Subjective Follow-up for intractable migraine Seen resting in bed, comfortable, in good spirits States she feels much better today, right-sided headache is almost resolved Denies dizziness, changes in vision, focal weakness or numbness, nausea No chest pain, shortness of breath, palpitations No other symptoms States that she is ready and would like to be discharged today Review of Systems Review of Systems: All systems reviewed & are unremarkable except as noted in HPI & below Physical Exam Physical Exam: General- oriented x 3, not in distress, speaks in sentences with no effort or accessory muscle use Head- atraumatic Eyes- PERRL, EOMI, anicteric ENT- oropharynx clear Neck- supple, no JVD, no adenopathy, no thyromegaly; carotids +2/2, no bruits appreciated Lungs- clear to auscultation bilaterally, no rales/wheezes Heart- normal rate, regular rhythm; no murmur, no gallop, no rub appreciated Abdomen- normal bowel sounds, nondistended, soft, nontender, no masses or hepatosplenomegaly Extremities-trace edema left lower leg, no edema on the right lower leg, no calf tenderness; peripheral pulses intact Neuro- alert, oriented x 3; CN 2-12 grossly intact; motor 5/5 bilaterally;sensation 100% on all extremities; no other gross focal neurologic deficits Skin- warm & dry Results & Data Results & Data ([facility]) Vital Signs (Past 12 Hours) Vital Signs Temp Pulse Resp BP Pulse Ox 04/04/20 07:24 36.6 C 61 18 153/88 H 94
--- NOTE | 2020-04-04 14:50 | Ultrasound Report ---
LEFT LOWER EXTREMITY VENOUS DOPPLER CLINICAL HISTORY: left leg edema, r/o DVT COMPARISON STUDY: Bilateral lower extremity venous Doppler ultrasound January 31, 2020 TECHNIQUE: Sonography of the deep venous system of the left lower extremity was performed. Compressi on and augmentation were evaluated. FINDINGS: The left common femoral, superficial femoral and popliteal veins were compressible. Augmen tation was normal. Flow was shown within the deep calf vessels. IMPRESSION: No evidence of deep venous thrombus within the left lower extremity. ACT 112: Negative or not required by law. Electronically signed by: Gonsalo Villafana M.D. 04/04/2020 2:48 PM
--- NOTE | 2020-04-04 16:39 | Discharge Summary ---
Date of Service April 04, 2020 Admission HPI Per Admitting Provider CHIEF COMPLAINT: Severe headache. HISTORY OF PRESENT ILLNESS: This 70-year-old female with past medical history significant for hyperlipidemia, hypothyroidism, prediabetes, hypertension, CAD, GERD, idiopathic scoliosis, cervical spondylolysis, postpolio syndrome, chronic pain syndrome, failed back surgical syndrome, recurrent depression, obesity, history of non-ST elevated myocardial infarction, generalized anxiety disorder, history of DVT, presents with severe headache. The patient has history of migraines. She says last episode was in August. She does not take any pain medication for migraine. Since yesterday 5 a.m., she started to have severe pain in the right side of the head, it was not getting better, so she came to the ER. It is her typical migraine. In the ER, she received Decadron, Benadryl, Compazine, Tylenol, magnesium, Haldol. ER physician as per algorithm is going to give Depakote. The patient says that her neurologist told her that to give morphine when she has severe pain.She was requesting for morphine. She says lights bothering her, sounds bothering her and denies any dizziness, no blurred vision, no earache, no runny nose, no sore throat, no cough, no chest pain, no shortness of breath, no fever, no chills. Nausea is better. No abdominal pain. Normal bowel and bladder movements. Otherwise, ambulates okay. Admission Exam Per Admitting Provider PHYSICAL EXAMINATION: GENERAL: The patient is obese, seems to be having significant pain. VITAL SIGNS: Temperature 36.7, pulse 94, respiratory rate 21, blood pressure 160/96, oxygen 92% on room air. HEENT: No pallor, no icterus. Pupils equal, round, reactive to light. NECK: No JVD, no neck masses seen. CARDIOVASCULAR: S1, S2 heard, regular rate and rhythm, no murmur, no gallop. RESPIRATORY SYSTEM: Normal AP diameter. No accessory muscle use. No wheezing, no crackles. ABDOMEN: Soft, bowel sounds present, nontender. No distention. CENTRAL NERVOUS SYSTEM: Alert and oriented. Obeys commands. Moves extremities. EXTREMITIES: Mild trace pedal edema present, no erythema seen. Principal Diagnosis ACUTE MIGRAINE ATTACK Discharge Exam General- oriented x 3, not in distress, speaks in sentences with no effort or accessory muscle use Head- atraumatic Eyes- PERRL, EOMI, anicteric ENT- oropharynx clear Neck- supple, no JVD, no adenopathy, no thyromegaly; carotids +2/2, no bruits appreciated Lungs- clear to auscultation bilaterally, no rales/wheezes Heart- normal rate, regular rhythm; no murmur, no gallop, no rub appreciated Abdomen- normal bowel sounds, nondistended, soft, nontender, no masses or hepatosplenomegaly Extremities-trace edema left lower leg, no edema on the right lower leg, no calf tenderness; peripheral pulses intact Neuro- alert, oriented x 3; CN 2-12 grossly intact; motor 5/5 bilaterally;se nsation 100% on all extremities; no other gross focal neurologic deficits Skin- warm & dry Discharge Data Allergies Allergy/AdvReac Type Severity Reaction Status Date / Time latex Allergy Intermediate Rash Verified 04/03/20 00:24 nickel Allergy Intermediate SEVERE Verified 04/03/20 00:24 DERMATITIS NSAIDS (Non-Steroidal Allergy Intermediate HX OF Verified 04/03/20 00:24 Anti-Inflamma BLEEDING ULCERS-TO AVOID aspirin AdvReac Intermediate bleeding Verified 04/03/20 00:24 ulcers Consultations 04/02/20 23:15 ED Decision to Admit Stat 04/03/20 01:39 Consult Case Management - Discharge Planning Routine Ordered Studies 04/02/20 19:47 CT head/brain wo con Stat FINDINGS: Brain parenchyma: There is mild age-related involutional change. There is no hemorrhage, mass effect, or evidence of acute territorial ischemia by CT criteria. Hernandez-white matter differentiation is preserved. No extra-axial fluid collection is seen. Ventricles, sulci, cisterns: Prominent secondary to involutional change. Intracranial vasculature: There is atherosclerotic calcification of the cavernous carotid and vertebral arteries. Calvarium: Unremarkable. Sinuses and mastoids: The visualized paranasal sinuses are clear. The mastoid air cells are well pneumatized. Orbits: The bony orbits are grossly intact. There are bilateral ocular lens implants. IMPRESSION: There is no hemorrhage, mass effect, or evidence of acute territorial ischemia by CT criteria. 04/04/20 14:30 US venous doppler LE LT Stat FINDINGS: The left common femoral, superficial femoral and popliteal veins were compressible. Augmentation was normal. Flow was shown within the deep calf vessels. IMPRESSION: No evidence of deep venous thrombus within the left lower extremity. Hospital Course (1) Intractable migraine: Acute migraine attack -CT head: No acute process There is no hemorrhage, mass effect, or evidence of acute territorial ischemia by CT criteria. -Patient was given Decadron, Compazine, Benadryl, etc. at the ER While admitted, she was given PRN Dilaudid with subsequent resolution of symptoms -recommended Tylenol 1 g 3 times daily PRN for headache, will also start vitamin b2 400mg daily for migraine prophylaxis, already on Magnesium supplement -Follow-up with PCP on Thursday as per discharge instructions History of coronary artery disease No cardiac symptoms -Continue home medication of statin, aspirin, Coreg. Hyperlipidemia -Continue statin. Hypertension Stable -Continue her diuretics and Coreg, amlodipine and hydrochlorothiazide. History of chronic pain syndrome -Continue home fentanyl patch. Depression and anxiety Stable -Continue Valium p.r.n., hydroxyzine, Remeron, BuSpar, trazodone. Gastroesophageal reflux disease -On PPI. Hypothyroidism -On Synthroid. Pre-diabetes vs borderline diabetes -HbA1c 6.5 -counseling on diet and exerrcise Plan of care discussed with patient in detail and at length All questions answered She is understanding, agreeable, comfortable with plan of care Total Time Total Time Spent Total Time Spent (In Minutes): 45 minutes Discharge Plan Discharge Items Patient Disposition: Home - Self-Care Reason For Visit: SEVERE HEADACHE Discharge Diagnosis: Acute Migraine Attack Activity: Resume your previous activity Activity Comment: Resume activity gradually as tolerated Lifting: Gradually increase as tolerated Exercise/Sports: Gradually increase as tolerated Driving/Machine Use: No driving Non-emergency contact: Primary Care Provider Call non-emergency contact if: you have any medication questions, your symptoms worsen, your pain is not controlled, your pain is worsening, your pain is unusual for you, your pain is concerning for you and you have a fever Follow-up/Referrals: Charanjit Vasquez MD [Primary Care Provider] - 04/09/20 10:40 am Diet: Heart Healthy Addtl Attending Provider Instructions: YOUR NEW MEDICATIONS IS VITAMIN B2 400MG DAILY FOR MIGRAINE PROPHYLAXIS. YOU MAY ALSO USE TYLENOL 1,000MG (EVERY 4-6 HOURS NEEDED) THREE TIMES A DAY NEED FOR MIGRAINE HEADACHE. DO NOT EXCEED MORE THAN 3,000MG OF TYLENOL WITHIN 24 HOURS. CALL PRIMARY CARE PHYSICIAN OR RETURN TO THE ER IMMEDIATELY IF WITH RECURRENCE OR WORSENING OF SYMPTOMS. PLEASE FOLLOW UP WITH DR. SALEEM (ASSOCIATE OF DR. VASQUEZ) ON THURSDAY APRIL 09, 2020 AT 10:40AM. Pending Studies at Discharge: No Stand-Alone Forms: My [facility] [employer], Smoking Cessation Medications and DC Order Prescriptions: New riboflavin (vitamin B2) 400 mg tablet 400 mg PO DAILY Qty: 30 RF: 1 Continued nitroglycerin [Nitrostat] 0.3 mg Tablet, Sublingual 0.3 mg sublingual UD PRN (Reason: Chest Pain) RF: 0 aspirin [Aspir-81] 81 mg Tablet,Delayed Release (Dr/Ec) 81 mg PO QAM RF: 0 magnesium oxide 400 mg (241.3 mg magnesium) Tablet 400 mg PO BID RF: 0 Calcium 600 + D(3) 600 mg calcium- 200 unit Capsule 1 cap PO BID RF: 0 olopatadine 0.2 % Drops 1 drp OPB QAM RF: 0 epinephrine 0.3 mg/0.3 mL Syringe 0.3 mg IM Q3H PRN (Reason: Allergic Reaction) RF: 0 Ocuvite Adult 50 Plus 250-5-1 mg Capsule 1 cap PO QAM RF: 0 pantoprazole 40 mg tablet,delayed release (DR/EC) 40 mg PO QAM RF: 0 mirtazapine 7.5 mg tablet 7.5 mg PO HS RF: 0 Latuda 20 mg Tablet 20 mg PO QPM RF: 0 gabapentin 300 mg capsule 600 mg PO HS RF: 0 carvedilol 12.5 mg tablet 12.5 mg PO BID RF: 0 amlodipine 10 mg tablet 10 mg PO DAILY RF: 0 diazepam 5 mg tablet 5 mg PO HS PRN (Reason: Anxiety) RF: 0 furosemide 20 mg Tablet 20 mg PO QAM Qty: 30 RF: 0 furosemide 20 mg Tablet 20 mg PO QPM PRN (Reason: edema) Qty: 30 RF: 0 atorvastatin [Lipitor] 40 mg Tablet 40 mg PO QAM RF: 0 levothyroxine 75 mcg Tablet 75 mcg PO QAM RF: 0 buspirone 10 mg Tablet 10 mg PO TID RF: 0 tramadol [Ultram] 50 mg Tablet 50 mg PO Q8 PRN (Reason: severe pain) RF: 0 pramipexole [Mirapex] 0.125 mg Tablet 0.125 mg PO HS PRN (Reason: Restless Leg(S)) RF: 0 prochlorperazine maleate 5 mg tablet 10 mg PO BID PRN (Reason: Nausea) RF: 0 polyethylene glycol 3350 17 gram Powder In Packet 17 g PO DAILY PRN (Reason: Constipation) RF: 0 promethazine 25 mg Tablet 25 mg PO Q6H PRN (Reason: Nausea) RF: 0 fentanyl [Duragesic] 25 mcg/hr patch 72 hour 1 patch topical [id number] RF: 0 fentanyl [Duragesic] 12 mcg/hr patch 72 hour 1 patch topical [id number] RF: 0 hydroxyzine HCl 25 mg tablet 25 mg PO BID PRN (Reason: Anxiety) RF: 0 tizanidine 4 mg tablet 4 mg PO BID PRN (Reason: Muscle Spasm) RF: 0 trazodone 100 mg Tablet 200 mg PO HS RF: 0 Discharge Orders: Discharge Order (Routine); Ordered 04/04/20 Ordered By: Kyler Pineda/Other Patient Handouts: A1C Admission Data Admit Date/Time: 04/03/20 18:55 Attending Provider: Kyler Pineda Admit Provider: Reyes Miller Primary Care Provider: Charanjit Vasquez Other Providers: Reyes Miller ; Stan Carreno
== END 2020-04-04 17:22 | disposition home or self-care (01) | DRG 103 ==
LOC: 3N 17:24 → ED 17:24 → 3N 04-03 01:05 → SUATTDRO 04-03 18:55

== ENCOUNTER 2020-04-11 11:07 | Inpatient (IN) ==
[2020-04-11 12:12] LABS: Basophils # (auto) 0.05 K/uL (0-0.2); Basophils % (auto) 0.5 %; Eosinophils # (auto) 0.36 K/uL (0-0.5); Eosinophils % (auto) 3.6 %; Hematocrit (blood only) 43.2 % (37-47); Hemoglobin 14.8 g/dL (12.0-16.0); Immature Granulocytes # (auto) 0.01 K/uL (0.00-0.02); Immature Granulocytes % (auto) 0.1 %; Lymphocytes # (auto) 2.89 K/uL (1.2-3.4); Lymphocytes % (auto) 29.1 %; Mean Corpuscular Hemoglobin 29.3 pg (25-34); Mean Corpuscular Hgb Conc 34.3 g/dL (32-36); Mean Corpuscular Volume 85.5 fL (80-100); Mean Platelet Volume 9.2 fL (7.4-10.4); Monocytes # (auto) 0.88 K/uL (0.11-0.59); Monocytes % (auto) 8.9 %; Neutrophils # (auto) 5.73 K/uL (1.4-6.5); Neutrophils % (auto) 57.8 %; Platelet Count 301 K/uL (130-400); RDW Coefficient of Variation 15.1 % (11.5-14.5); Red Blood Count 5.05 M/uL (4.2-5.4); White Blood Count 9.92 K/uL (4.8-10.8)
[2020-04-11 12:33] LABS: Albumin Level 3.8 gm/dl (3.4-5.0); BUN Creatinine Ratio 18.2 (10-20); Calcium 9.5 mg/dl (8.5-10.1); Creatinine Clr Calc Pharmacy 60.1 ml/min; Est GFR (African American) 76.1; Est GFR (Non-African American) 65.6; Potassium 3.6 mmol/L (3.5-5.1)
[2020-04-11 12:35] LABS: INR 1.1 (0.9-1.1); Partial Thromboplastin Ratio 2.2; Prothrombin Time 11.2 Seconds (9.0-12.0)
[2020-04-11 12:36] LABS: Bilirubin,Total 0.5 mg/dl (0.2-1); Globulin 3.9 gm/dl (2.5-4.0); Total Protein 7.7 gm/dl (6.4-8.2)
[2020-04-11] MEDS ORDERED: PROCHLORPERAZINE 5 MG/ML 2 ML VIAL IV STA (12:49)
[2020-04-11] MEDS ORDERED: DiphenhydrAMINE HCL 50 MG/ML VIAL IV STA (12:49)
[2020-04-11] MEDS ORDERED: MAGNESIUM SULFATE / D5W 1 GM/100 ML BAG IV STA (12:50)
[2020-04-11 12:52] LABS: Partial Thromboplastin Time 61.1 Seconds (21.0-31.0)
--- NOTE | 2020-04-11 12:57 | Emergency Department Note ---
History of Present Illness General Chief complaint: Headache Time Seen by Provider: 04/11/20 12:33 Source: patient History of Present Illness Provider complaint: Headache Onset (ago): hour(s) Location: head and left Radiation: non-radiation Pain Consistency: + constant Maximum Pain Intensity: 8 Quality: + other (Throbbing) Exacerbated By: + other (Bright lights) Associated symptoms: + nausea/vomiting (Nausea without vomiting) and + weakness (Generalized); no chest pain, no cough, no fever/chills and no shortness of breath This is a 70-year-old female with a history of chronic migraines presenting with a migraine headache starting late yesterday evening. The patient describes it as her usual headache. Its on the left side of her head. She describes it as throbbing. It is worse with bright lights. She rates it an 8 out of 10 in severity. It is not the worst headache of her life. She states she was just recently admitted for migraines and discharged last week. Prior to that she stated that her migraines were getting better and she was not having any. She denies any head injury. She denies any recent fever, cough or cold symptoms, ch est discomfort, shortness of breath, abdominal pain, black or bloody stools or known COVID-19 exposure. She does state that the headache is accompanied by some nausea. She has not vomiting. She denies any focal numbness or weakness. She does state that sometime about 3 AM in the morning she got up to go to the bathroom. She slid down to the ground because she felt her legs go weak. She stated it was more on the right side than the left. She try to get up but she felt weak all over. She denies any other associated symptoms. She currently states she feels weak and has difficulty getting up. She called her PCP who told her to go to the emergency department and called an ambulance for her. Home Medications Home Medications Medication Instructions Recorded Confirmed Type atorvastatin [Lipitor] 40 mg PO QAM 12/13/18 04/11/20 History buspirone 10 mg PO TID 12/13/18 04/11/20 History levothyroxine 75 mcg PO QAM 12/13/18 04/11/20 History pramipexole [Mirapex] 0.125 mg PO HS PRN 01/25/19 04/11/20 History tramadol [Ultram] 50 mg PO Q8 PRN 01/25/19 04/11/20 History polyethylene glycol 3350 17 g PO DAILY PRN 05/12/19 04/11/20 History prochlorperazine maleate 10 mg PO BID PRN 05/12/19 04/11/20 History promethazine 25 mg PO Q6H PRN 05/12/19 04/11/20 History Calcium 600 + D(3) 1 cap PO BID 05/23/19 04/11/20 History Ocuvite Adult 50 Plus 1 cap PO QAM 05/23/19 04/11/20 History aspirin [Aspir-81] 81 mg PO QAM 05/23/19 04/11/20 History epinephrine 0.3 mg IM Q3H PRN 05/23/19 04/11/20 History magnesium oxide 400 mg PO BID 05/23/19 04/11/20 History nitroglycerin [Nitrostat] 0.3 mg SUBLINGUAL UD PRN 05/23/19 04/11/20 History olopatadine 1 drp OPB QAM 05/23/19 04/11/20 History fentanyl [Duragesic] 1 patch TOPICAL [id number] 05/26/19 04/11/20 History fentanyl [Duragesic] 1 patch TOPICAL [id number] 05/26/19 04/11/20 History mirtazapine 7.5 mg PO HS 07/03/19 04/11/20 History pantoprazole 40 mg PO QAM 07/03/19 04/11/20 History Latuda 20 mg PO QPM 08/04/19 04/11/20 History gabapentin 600 mg PO HS 01/30/20 04/11/20 History amlodipine 10 mg PO DAILY 02/27/20 04/11/20 History carvedilol 12.5 mg PO BID 02/27/20 04/11/20 History diazepam 5 mg PO HS PRN 02/27/20 04/11/20 History furosemide 20 mg PO QAM #30 tab 02/29/20 04/11/20 Rx furosemide 20 mg PO QPM PRN #30 tab 02/29/20 04/11/20 Rx hydroxyzine HCl 25 mg PO BID PRN 04/03/20 04/11/20 History tizanidine 4 mg PO BID PRN 04/03/20 04/11/20 History trazodone 200 mg PO HS 04/03/20 04/11/20 History riboflavin (vitamin B2) 400 mg PO DAILY #30 tab 04/04/20 04/11/20 Rx Allergies Allergy/AdvReac Type Severity Reaction Status Date / Time latex Allergy Intermediate Rash Verified 04/11/20 11:28 nickel Allergy Intermediate SEVERE Verified 04/11/20 11:28 DERMATITIS NSAIDS (Non-Steroidal Allergy Intermediate HX OF Verified 04/11/20 11:28 Anti-Inflamma BLEEDING ULCERS-TO AVOID aspirin AdvReac Intermediate bleeding Verified 04/11/20 11:28 ulcers Past Med/Surg History Medical History (Updated 04/11/20 @ 18:05 by Francis Avery MD) Anemia (Chronic) HX OF Anxiety (Chronic) CAD (coronary artery disease) (Chronic) 2017-BMS to LAD Cervical spondylolysis (Chronic) Chronic heart failure with preserved ejection fraction (HFpEF) Chronic pain (Chronic) Colitis (Chronic) Cyclical vomiting (Chronic) Deep vein thrombosis (Chronic) 4 YEARS AGO Degenerative disc disease (Chronic) Depression (Chronic) Dyslipidemia (Chronic) GI bleed history of. declining anticoagulation due to hx of GIB. Hyperlipidemia (Chronic) Hypertension (Chronic) Hypothyroidism (Chronic) Migraine (Chronic) Mood disorder (Chronic) Myocardial Infarction (Chronic) 2 YEARS AGO Osteoarthritis (Chronic) Post traumatic stress disorder (Chronic) Pulmonary embolism (Chronic) 2 YEARS OLD (UNSURE OF REASON) Restless leg syndrome (Chronic) Scoliosis (Chronic) Surgical History Fusion of spine (Chronic) LUMBAR H/O ovarian cystectomy (Chronic) H/O repair of right rotator cuff (Chronic) H/O spinal fusion (Chronic) "1st surgery in [place], then multiple [place] Dr. Catherine [place] [facility] [place] History of adenoidectomy (Chronic) History of anesthesia reaction (Chronic) WOKE UP IN MIDDLE OF SPINAL SURGERIES History of appendectomy (Chronic) History of cataract surgery (Chronic) LEFT AND RIGHT History of heart artery stent (Chronic) 2017- STENT PLACED AT [facility] (DR. DAVILA) History of laminectomy (Chronic) LUMBAR History of tonsillectomy (Chronic) History of vascular access device (Chronic) PORT LEFT UPPER CHEST-IN PLACE Ovarian cyst (Chronic) X 2 Family History Mother Hypertension Father Hypertension Social History Preferred Language: Bolivian Communication Ability: Effective Publicity Director Required: No Beliefs That Will Affect Care: None marital status: Single Current Living Situation: Alone current occupational status: retired Other Information That Helps Us Care for You: Yes Feels Safe at Home: Yes Safety Concerns: Feels Safe At This Time Smoking Status: Never smoker Second Hand Exposure: No ; Hx Alcohol Use: No Hx Substance Use: No Review of Systems See HPI for pertinent positives & negatives. and A total of 10 systems reviewed and were otherwise negative Physical Exam Vital Signs Vital Signs - 24 hr 04/11/20 11:11 04/11/20 11:21 04/11/20 11:25 Temperature 36.9 C Temperature Source Oral Pulse Rate 83 90 84 Pulse Rate from SpO2 Sensor 83 85 Respiratory Rate 20 18 24 Blood Pressure 142/102 H 142/102 H Blood Pressure Mean 113 115 Pulse Oximetry 97 Oxygen Delivery Method Room Air Oxygen Flow Rate Sepsis Recent Fever Within 48 Hours No Sepsis New/Unexplained Change in Mental Status No Sepsis Action Taken by Nursing No Action Required Oxygen Flow Rate - Titration Pulse Oximetry Post Tiitration 04/11/20 11:30 04/11/20 12:00 04/11/20 12:01 Temperature Temperature Source Pulse Rate 87 81 85 Pulse Rate from SpO2 Sensor 87 82 85 Respiratory Rate 23 15 16 Blood Pressure 157/102 H Blood Pressure Mean 117 Pulse Oximetry 95 95 Oxygen Delivery Method Oxygen Flow Rate 2 2 Sepsis Recent Fever Within 48 Hours Sepsis New/Unexplained Change in Mental Status Sepsis Action Taken by Nursing Oxygen Flow Rate - Titration Pulse Oximetry Post Tiitration 04/11/20 12:04 04/11/20 12:30 04/11/20 12:31 Temperature Temperature Source Pulse Rate 82 80 Pulse Rate from SpO2 Sensor 82 76 Respiratory Rate 21 24 Blood Pressure 162/110 H Blood Pressure Mean 143 Pulse Oximetry 93 95 Oxygen Delivery Method Room Air Oxygen Flow Rate 2 2 Sepsis Recent Fever Within 48 Hours Sepsis New/Unexplained Change in Mental Status Sepsis Action Taken by Nursing Oxygen Flow Rate - Titration 2 Pulse Oximetry Post Tiitration 94 04/11/20 13:00 04/11/20 13:24 04/11/20 13:30 Temperature Temperature Source Pulse Rate 80 79 78 Pulse Rate from SpO2 Sensor 79 Respiratory Rate 17 19 20 Blood Pressure 165/110 H 155/99 H 174/102 H Blood Pressure Mean 120 110 133 Pulse Oximetry 96 Oxygen Delivery Method Oxygen Flow Rate 2 3 3 Sepsis Recent Fever Within 48 Hours Sepsis New/Unexplained Change in Mental Status Sepsis Action Taken by Nursing Oxygen Flow Rate - Titration Pulse Oximetry Post Tiitration 04/11/20 13:31 04/11/20 14:00 04/11/20 14:27 Temperature Temperature Source Pulse Rate 79 81 82 Pulse Rate from SpO2 Sensor Respiratory Rate 23 20 17 Blood Pressure 156/103 H 166/104 H Blood Pressure Mean 115 122 Pulse Oximetry Oxygen Delivery Method Oxygen Flow Rate 3 3 3 Sepsis Recent Fever Within 48 Hours Sepsis New/Unexplained Change in Mental Status Sepsis Action Taken by Nursing Oxygen Flow Rate - Titration Pulse Oximetry Post Tiitration 04/11/20 14:30 04/11/20 14:31 04/11/20 15:00 Temperature Temperature Source Pulse Rate 81 79 78 Pulse Rate from SpO2 Sensor Respiratory Rate 20 14 22 Blood Pressure 172/98 H Blood Pressure Mean 117 Pulse Oximetry Oxygen Delivery Method Oxygen Flow Rate 3 Sepsis Recent Fever Within 48 Hours Sepsis New/Unexplained Change in Mental Status Sepsis Action Taken by Nursing Oxygen Flow Rate - Titration Pulse Oximetry Post Tiitration 04/11/20 15:01 04/11/20 15:02 Temperature Temperature Source Pulse Rate 80 77 Pulse Rate from SpO2 Sensor Respiratory Rate 19 23 Blood Pressure 158/90 H Blood Pressure Mean 95 Pulse Oximetry Oxygen Delivery Method Oxygen Flow Rate 3 Sepsis Recent Fever Within 48 Hours Sepsis New/Unexplained Change in Mental Status Sepsis Action Taken by Nursing Oxygen Flow Rate - Titration Pulse Oximetry Post Tiitration Constitutional: Vital signs reviewed. Eyes: Pupils are equal round reactive to light. Conjunctiva are noninjected. ENT: Pharynx is clear without erythema or exudate. Mucous membranes are moist. Neck supple without meningeal signs. Respiratory: Clear to auscultation bilaterally. Breath sounds are equal bilaterally. Cardiovascular: Regular rate and rhythm. No rubs or gallops. GI: Soft, nondistended and nontender. Bowel sounds are present. Musculoskeletal: No peripheral edema. No lower extremity tenderness. Integumentary: No cyanosis. or jaundice. Neurologic: The patient is awake and alert. Cranial nerves II-XII are intact. Motor is 5 out of 5 all extremities. Sensation is intact to light touch all extremities. Normal speech. No pronator drift. No limb ataxia. Psychiatric: Normal affect. Not anxious appearing. Course Administered Medications Discontinued Medications Amlodipine Besylate (Norvasc) 10 mg PO NOW ONE Stop: 04/11/20 15:17 Last Admin: 04/11/20 15:57 Dose: 10 mg Documented by: [id number] Diphenhydramine HCl (Benadryl) 25 mg IV NOW STA Stop: 04/11/20 12:50 Last Admin: 04/11/20 12:59 Dose: 25 mg Documented by: [id number] Sodium Chloride (Nss) 500 mls @ 999 mls/hr IV .Q31M COLT Stop: 04/11/20 13:30 Last Infusion: 04/11/20 14:09 Dose: 0 mls/hr Documented by: [id number] Admin: 04/11/20 12:59 Dose: 999 mls/hr Documented by: [id number] Magnesium Sulfate/Dextrose (Magnesium Sulfate / D5w) 1 gm in 100 mls @ 100 mls/hr IV NOW STA Stop: 04/11/20 13:49 Last Infusion: 04/11/20 14:08 Dose: 0 mls/hr Documented by: [id number] Admin: 04/11/20 12:59 Dose: 100 mls/hr Documented by: [id number] Meclizine HCl (Antivert) 25 mg PO NOW STA Stop: 04/11/20 15:29 Last Admin: 04/11/20 15:56 Dose: 25 mg Documented by: [id number] Prochlorperazine (Compazine) 10 mg IV NOW STA Stop: 04/11/20 12:50 Last Admin: 04/11/20 12:59 Dose: 10 mg Documented by: [id number] Medical Decision Making Differential Diagnosis Migraine headache, tension headache, status migrainosus, anemia, cardiac, infection, CVA Medical Records Attestation: I reviewed the patient's medical records. The patient was just admitted to the hospital earlier this month for status migrainosus. She was treated with Dilaudid as needed which got rid of her headache. Home Medications Current Medication List: was personally reviewed by me Laboratory Data Attestation: I reviewed the patient's lab results. Result diagrams: 04/11/20 12:00 04/11/20 12:00 Lab Results 04/11/20 04/11/20 04/11/20 Range/Units 12:00 12:00 12:00 WBC 9.92 (4.8-10.8) K/uL RBC 5.05 (4.2-5.4) M/uL Hgb 14.8 (12.0-16.0) g/dL Hct 43.2 (37-47) % MCV 85.5 (80-100) fL MCH 29.3 (25-34) pg MCHC 34.3 (32-36) g/dL RDW Std Deviation 47.0 H (36.4-46.3) fL RDW Coeff of [place]den 15.1 H (11.5-14.5) % Plt Count 301 (130-400) K/uL MPV 9.2 (7.4-10.4) fL Immature Gran % (Auto) 0.1 % Neut % (Auto) 57.8 % Lymph % (Auto) 29.1 % [place] % (Auto) 8.9 % Eos % (Auto) 3.6 % Baso % (Auto) 0.5 % Neut # (Auto) 5.73 (1.4-6.5) K/uL Lymph # (Auto) 2.89 (1.2-3.4) K/uL [place] # (Auto) 0.88 H (0.11-0.59) K/uL Eos # (Auto) 0.36 (0-0.5) K/uL Baso # (Auto) 0.05 (0-0.2) K/uL Immature Gran # (Auto) 0.01 (0.00-0.02) K/uL PT 11.2 (9.0-12.0) Seconds INR 1.1 (0.9-1.1) APTT 61.1 H* (21.0-31.0) Seconds PTT Ratio 2.2 Sodium 138 (136-145) mmol/L Potassium 3.6 (3.5-5.1) mmol/L Chloride 106 (98-107) mmol/L Carbon Dioxide 26 (21-32) mmol/L Anion Gap 7.0 (3-11) BUN 16 (7-18) mg/dl Creatinine 0.88 (0.6-1.2) mg/dl Est Cr Clr Drug Dosing 60.1 ml/min Est GFR ( Amer) 76.1 Est GFR (Non-Af Amer) 65.6 BUN/Creatinine Ratio 18.2 (10-20) Glucose 123 H (70-99) mg/dl Calcium 9.5 (8.5-10.1) mg/dl Total Bilirubin 0.5 (0.2-1) mg/dl AST 12 L (15-37) U/L ALT 25 (12-78) U/L Alkaline Phosphatase 115 (45-117) U/L Troponin I (0-0.045) ng/ml Total Protein 7.7 (6.4-8.2) gm/dl Albumin 3.8 (3.4-5.0) gm/dl Globulin 3.9 (2.5-4.0) gm/dl Albumin/Globulin Ratio 1.0 (0.9-2) TSH (0.300-4.500) uIu/ml 04/11/20 Range/Units 12:00 WBC (4.8-10.8) K/uL RBC (4.2-5.4) M/uL Hgb (12.0-16.0) g/dL Hct (37-47) % MCV (80-100) fL MCH (25-34) pg MCHC (32-36) g/dL RDW Std Deviation (36.4-46.3) fL RDW Coeff of Arden (11.5-14.5) % Plt Count (130-400) K/uL MPV (7.4-10.4) fL Immature Gran % (Auto) % Neut % (Auto) % Lymph % (Auto) % [place] % (Auto) % Eos % (Auto) % Baso % (Auto) % Neut # (Auto) (1.4-6.5) K/uL Lymph # (Auto) (1.2-3.4) K/uL Bill[place] # (Auto) (0.11-0.59) K/uL Eos # (Auto) (0-0.5) K/uL Baso # (Auto) (0-0.2) K/uL Immature Gran # (Auto) (0.00-0.02) K/uL PT (9.0-12.0) Seconds INR (0.9-1.1) APTT (21.0-31.0) Seconds PTT Ratio Sodium (136-145) mmol/L Potassium (3.5-5.1) mmol/L Chloride (98-107) mmol/L Carbon Dioxide (21-32) mmol/L Anion Gap (3-11) BUN (7-18) mg/dl Creatinine (0.6-1.2) mg/dl Est Cr Clr Drug Dosing ml/min Est GFR ( Amer) Est GFR (Non-Af Amer) BUN/Creatinine Ratio (10-20) Glucose (70-99) mg/dl Calcium (8.5-10.1) mg/dl Total Bilirubin (0.2-1) mg/dl AST (15-37) U/L ALT (12-78) U/L Alkaline Phosphatase (45-117) U/L Troponin I < 0.015 (0-0.045) ng/ml Total Protein (6.4-8.2) gm/dl Albumin (3.4-5.0) gm/dl Globulin (2.5-4.0) gm/dl Albumin/Globulin Ratio (0.9-2) TSH 0.341 (0.300-4.500) uIu/ml Imaging Data Radiologist's Impression: XR chest 1V portable CLINICAL HISTORY: weak eval for pna dyspnea COMPARISON STUDY: 02/27/2020 FINDINGS: Improved aeration left lung base. No focal infiltrate current time. D iaphragms are smooth. Central catheter in superior vena cava. IMPRESSION: Improved densities left lung base. No acute process. ACT 112: Negative or not required by law. The above report was generated using voice recognition software. It may contain grammatical, syntax or spelling errors. Electronically signed by: Dann Felix M.D. 04/11/2020 1:26 PM Dictated: 04/11/20 1325 Transcribed: 04/11/[address] DOSE: 823.12 mGy.cm HISTORY: Headache/right leg weak eval for cva TECHNIQUE: Multiaxial CT images of the head were performed without the use of intravenous contrast. Automated exposure control was utilized for this study. A dose lowering technique was utilized adhering to the principles of ALARA. Comparison: Head CT 04/02/2020. Findings: The paranasal sinuses and mastoid air cells are clear. The calvarium and skull base are intact. The ventricles and sulci are within normal limits. There is no mass, hematoma, midline shift, or acute infarct. Impression: No acute intracranial abnormality. ACT 112: Negative or not required by law. Electronically signed by: Bulmaro Zavaleta M.D. 04/11/2020 1:35 PM Dictated: 04/11/20 1324 Transcribed: 04/11/20 1324 ECG Data Attestation: I personally reviewed and interpreted this ECG as follows: Indication: + other (weak) Rate (beats per minute): 81 Rhythm: + normal sinus ECG Intervals/blocks: no Left bundle branch block ECG ST segments: no ST elevation ECG Findings: + Q waves (Leads III and aVF) and + Other (Low voltage QRS); no PVCs Comparison ECG Date: from (February 29, 2020) Change: the following changes noted (Q wave in aVF is new today) Blood Pressure Blood Pressure Findings: Elevated blood pressure Blood Pressure Disposition: Referred to patients primary care provider [facility] Narrative I did evaluate the patient as noted above. The patient is presenting with a migraine headache as well as generalized weakness. She is at the point where she cannot stand on her own. She states that she lives by herself. IV access was established. I did place an order for continuous cardiac monitoring. The monitor showed no sinus rhythm at a rate of 88. I did order and personally review the patient's 12-lead EKG as described above. She has no acute ischemic changes on her twelve-lead EKG. There is a Q wave in aVF which was not present previously. She denies having any chest pain or shortness of breath. I did order and personally reviewed the images of the patient's chest x-ray as described above. She has no evidence of pneumonia. I did order a urine analysis. I did order and review the patient's blood work as noted in the electronic medical record. CBC does not demonstrate leukocytosis or anemia. Electrolytes are unremarkable. Troponin is negative. She did mention that she felt like she had worsening right-sided weakness initially this morning. I therefore felt a CT to evaluate with stroke was reasonable and she was agreeable. I did order a CT of the head. I did review the images myself as well as the radiology report as described above. There is no evidence of bleed or stroke. I did treat her with IV fluids with normal saline, magnesium, Benadryl and Compazine. I did reevaluate the patient. She continues to have a headache and states that she is too weak. We did attempt to get her up but she collapsed back onto the bed after standing for short period. I did discuss case with the hospitalist and test case developer. She will be hospitalized for further care and management. Impression & Plan Generalized weakness, Migraine Discharge Plan Visit Data *Final* Discharge Date/Time: 04/11/20 15:47 Chief Complaint: Headache ED Provider: Francis Avery Discharge Problem: Generalized weakness, Migraine Patient Disposition: Admitted As Inpatient Discharge Instructions Interventions: ED Discharge Assessment Last Done: 04/11/20 15:47
[2020-04-11] MEDS ORDERED: SODIUM CHLORIDE 0.9% 500 ML IV SCH (13:00)
--- NOTE | 2020-04-11 13:27 | XRay Report ---
XR chest 1V portable CLINICAL HISTORY: weak eval for pna dyspnea COMPARISON STUDY: 02/27/2020 FINDINGS: Improved aeration left lung base. No focal infiltrate current time. Diaphragms are smooth. Central catheter in superior vena cava. IMPRESSION: Improved densities left lung base. No acute process. ACT 112: Negative or not required by law. The above report was generated using voice recognition software. It may contain grammatical, syntax or spelling errors. Electronically signed by: Dann Felix M.D. 04/11/2020 1:26 PM
[2020-04-11 13:29] LABS: Thyroid Stimulating Hormone 0.341 uIu/ml (0.300-4.500); Troponin I < 0.015 ng/ml (0-0.045)
--- NOTE | 2020-04-11 13:36 | CT Scan Report ---
HEAD CT NONCONTRAST CT DOSE: 823.12 mGy.cm HISTORY: Headache/right leg weak eval for cva TECHNIQUE: Multiaxial CT images of the head were performed without the use of intravenous contrast. A utomated exposure control was utilized for this study. A dose lowering technique was utilized adheri ng to the principles of ALARA. Comparison: Head CT 04/02/2020. Findings: The paranasal sinuses and mastoid air cells are clear. The calvarium and skull base are int act. The ventricles and sulci are within normal limits. There is no mass, hematoma, midline shift, or acute infarct. Impression: No acute intracranial abnormality. ACT 112: Negative or not required by law. Electronically signed by: Bulmaro Zavaleta M.D. 04/11/2020 1:35 PM
--- NOTE | 2020-04-11 14:06 | Electrocardiogram Report ---
Test Reason : Blood Pressure : / mmHG Vent. Rate : 081 BPM Atrial Rate : 081 BPM P-R Int : 184 ms QRS Dur : 096 ms QT Int : 390 ms P-R-T Axes : 067 011 054 degrees QTc Int : 453 ms Normal sinus rhythm Low voltage QRS Inferior infarct , age undetermined Cannot rule out Anterior infarct (cited on or before 18-JUN-2019) Abnormal ECG When compared with ECG of 29-FEB-2020 06:56, Inferior infarct is now Present Non-specific change in ST segment in Inferior leads Confirmed by Alexx Duarte ([id number]) on 04/11/2020 2:06:06 PM Referred By: Confirmed By:Alexx Duarte
[2020-04-11] MEDS ORDERED: AMLODIPINE BESYLATE 5 MG TAB PO ONE (15:16)
[2020-04-11] MEDS ORDERED: MECLIZINE HCL 25 MG TAB PO STA (15:28)
--- NOTE | 2020-04-11 15:47 | History & Physical Report ---
Date of Service April 11, 2020 Assessment & Plan (1) Dizziness: (2) Ambulatory dysfunction: Mrs. Lua is a 70-year-old female with significant PMH of CAD, chronic diastolic CHF, HTN, HLD, hypothyroidism, prediabetes, CVS, GERD, failed back syndrome, postpolio syndrome, depression with anxiety, PTSD, history of DVT who presents to ED secondary to dizziness and off-balance x12 hours. Symptoms consistent with vertigo in nature. No recent or reported URI symptoms; therefore, likely not vestibular neuritis or labyrinthitis, ear exam benign, nystagmus May be BPPV in nature. CT head negative for acute abnormality. Admit to medical Meclizine 25 mg p.o. 3 times daily as needed Consult PT OT consider Anil maneuver Received IVF in ED -BMP otherwise unremarkable will not continue IVF Fall precautions If symptoms persistent or do not improve with PT measure consider MRI She otherwise has no neurofocal deficit prn antiemetics (3) Intractable migraine: Patient with complaints of right-sided eye pain with phonophobia and photophobia Also has associated nausea Likely component of migraine Did receive migraine cocktail in ED Monitor symptoms (4) CAD (coronary artery disease): Denies chest pain or shortness of breath Continue ASA, statin, carvedilol (5) Chronic heart failure with preserved ejection fraction (HFpEF): She is euvolemic Continue Coreg, Lasix Daily weights, strict I's and O's Heart healthy diet (6) Hypertension: Blood pressure elevated in ED He did not take her morning meds Give amlodipine 10 mg x 1 now Continue Coreg, amlodipine, Lasix (7) Hyperlipidemia: continue statin (8) Hypothyroidism: continue levothyroxine (9) Cyclical vomiting: has hx of CVS this has been stable (10) Chronic pain: Continue fentanyl patch, PRN tramadol (11) Restless leg syndrome: Continue Mirapex as needed (12) Depression: with anxiety, PTSD continue latuda, BuSpar, trazodone Mood stable (13) DVT prophylaxis: SQ Heparin pt with hx of DVT/PE Disposition: admit to medical Follow up: PCP Dr. Spann upon discharge Pt was seen and examined in collaboration with Dr. Niño, please see addendum History of Present Illness Chief Complaint: dizziness and off balance x 12 hours. Primary Care Provider: Charanjit Spann MD Mrs. Lua is a 70-year-old female with significant PMH of CAD, chronic diastolic CHF, HTN, HLD, hypothyroidism, prediabetes, CVS, GERD, failed back syndrome, postpolio syndrome, depression with anxiety, PTSD, history of DVT who presents to ED secondary to dizziness and off-balance x12 hours. She states that she awoke this morning and went to sit up at her bedside. When she tried to get up to go to the bathroom she, "collapsed." She denies syncope or loss of consciousness. She did not hit head or have any injuries. When she collapsed she felt extremely weak in her bilateral upper and lower extremities. She lives alone had a very difficult time returning herself to bed. When she did return to bed she got up a few hours later and tried to go to the bathroom again and when she went to stand up she, "collapsed again." At that time when she was able to get up she called PCP who recommended ED evaluation for possible stroke. At the time of collapse she admits to being dizzy and describes this as a spinning sensation. She overall felt off balance and had associated nausea. She does have history of cyclic vomiting syndrome and this nausea was different. Complains of R frontal headache, sharp, 8/10, nothing made better/worse, similar to migrainein past. During episode she denied any diaphoresis, chest pain, palpitations, shortness of breath, change in vision, change in hearing, tinnitus, emesis, abdominal pain, change in bowel or urinary habits. She further denies any recent URI symptoms including sinus congestion, rhinorrhea, sore throat or cough. She does have history of depression and overall feels that this is stable at this point. She also history of chronic pain syndrome and is on fentanyl patch. She removed her patch this morning but did not replace it. She do not take any of her a.m. meds. Her appetite is overall been reduced for the past few days but she has been drinking adequate fluid intake. She denies any prior history of vertigo. In ED patient was hemodynamically stable although she was hypotensive with a BP of 158/90. She underwent CBC, CMP, troponin and TSH was relatively unremarkable. Chest x- ray was negative acute abnormality. Head CT was negative for acute abnormality. She did receive IV fluids, IV diphenhydramine, 1 g IV magnesium and prochlorperazine in ED without much relief. Allergies Allergy/AdvReac Type Severity Reaction Status Date / Time latex Allergy Intermediate Rash Verified 04/11/20 11:28 nickel Allergy Intermediate SEVERE Verified 04/11/20 11:28 DERMATITIS NSAIDS (Non-Steroidal Allergy Intermediate HX OF Verified 04/11/20 11:28 Anti-Inflamma BLEEDING ULCERS-TO AVOID aspirin AdvReac Intermediate bleeding Verified 04/11/20 11:28 ulcers Home Medications Home Medications Medication Instructions Recorded Confirmed Type atorvastatin [Lipitor] 40 mg PO QAM 12/13/18 04/11/20 History buspirone 10 mg PO TID 12/13/18 04/11/20 History levothyroxine 75 mcg PO QAM 12/13/18 04/11/20 History pramipexole [Mirapex] 0.125 mg PO HS PRN 01/25/19 04/11/20 History tramadol [Ultram] 50 mg PO Q8 PRN 01/25/19 04/11/20 History polyethylene glycol 3350 17 g PO DAILY PRN 05/12/19 04/11/20 History prochlorperazine maleate 10 mg PO BID PRN 05/12/19 04/11/20 History promethazine 25 mg PO Q6H PRN 05/12/19 04/11/20 History Calcium 600 + D(3) 1 cap PO BID 05/23/19 04/11/20 History Ocuvite Adult 50 Plus 1 cap PO QAM 05/23/19 04/11/20 History aspirin [Aspir-81] 81 mg PO QAM 05/23/19 04/11/20 History epinephrine 0.3 mg IM Q3H PRN 05/23/19 04/11/20 History magnesium oxide 400 mg PO BID 05/23/19 04/11/20 History nitroglycerin [Nitrostat] 0.3 mg SUBLINGUAL UD PRN 05/23/19 04/11/20 History olopatadine 1 drp OPB QAM 05/23/19 04/11/20 History fentanyl [Duragesic] 1 patch TOPICAL [id number] 05/26/19 04/11/20 History fentanyl [Duragesic] 1 patch TOPICAL [id number] 05/26/19 04/11/20 History mirtazapine 7.5 mg PO HS 07/03/19 04/11/20 History pantoprazole 40 mg PO QAM 07/03/19 04/11/20 History Latuda 20 mg PO QPM 08/04/19 04/11/20 History gabapentin 600 mg PO HS 01/30/20 04/11/20 History amlodipine 10 mg PO DAILY 02/27/20 04/11/20 History carvedilol 12.5 mg PO BID 02/27/20 04/11/20 History diazepam 5 mg PO HS PRN 02/27/20 04/11/20 History furosemide 20 mg PO QAM #30 tab 02/29/20 04/11/20 Rx furosemide 20 mg PO QPM PRN #30 tab 02/29/20 04/11/20 Rx hydroxyzine HCl 25 mg PO BID PRN 04/03/20 04/11/20 History tizanidine 4 mg PO BID PRN 04/03/20 04/11/20 History trazodone 200 mg PO HS 04/03/20 04/11/20 History riboflavin (vitamin B2) 400 mg PO DAILY #30 tab 04/04/20 04/11/20 Rx Past Med/Surg History Medical History (Updated 04/11/20 @ 18:05 by Francis Avery MD) Anemia (Chronic) HX OF Anxiety (Chronic) CAD (coronary artery disease) (Chronic) 2017-[facility] to LAD Cervical spondylolysis (Chronic) Chronic heart failure with preserved ejection fraction (HFpEF) Chronic pain (Chronic) Colitis (Chronic) Cyclical vomiting (Chronic) Deep vein thrombosis (Chronic) 4 YEARS AGO Degenerative disc disease (Chronic) Depression (Chronic) Dyslipidemia (Chronic) GI bleed history of. declining anticoagulation due to hx of GIB. Hyperlipidemia (Chronic) Hypertension (Chronic) Hypothyroidism (Chronic) Migraine (Chronic) Mood disorder (Chronic) Myocardial Infarction (Chronic) 2 YEARS AGO Osteoarthritis (Chronic) Post traumatic stress disorder (Chronic) Pulmonary embolism (Chronic) 4 YEARS OLD (UNSURE OF REASON) Restless leg syndrome (Chronic) Scoliosis (Chronic) Surgical History Fusion of spine (Chronic) LUMBAR H/O ovarian cystectomy (Chronic) H/O repair of right rotator cuff (Chronic) H/O spinal fusion (Chronic) "1st surgery in [place], then multiple surgeries Dr. Catherine at [facility]" History of adenoidectomy (Chronic) History of anesthesia reaction (Chronic) WOKE UP IN MIDDLE OF SPINAL SURGERIES History of appendectomy (Chronic) History of cataract surgery (Chronic) LEFT AND RIGHT History of heart artery stent (Chronic) 2017- STENT PLACED AT [facility] (DR. DAVILA) History of laminectomy (Chronic) LUMBAR History of tonsillectomy (Chronic) History of vascular access device (Chronic) PORT LEFT UPPER CHEST-IN PLACE Ovarian cyst (Chronic) X 2 Family History Mother Hypertension Father Hypertension Social History Preferred Language: [place]ian Communication Ability: Effective Campaign Assistant Required: No Beliefs That Will Affect Care: None marital status: Single Current Living Situation: Alone current occupational status: retired Other Information That Helps Us Care for You: Yes Feels Safe at Home: Yes Safety Concerns: Feels Safe At This Time Smoking Status: Never smoker Second Hand Exposure: No ; Hx Alcohol Use: No Hx Substance Use: No Review of Systems Review of Systems: All systems reviewed & are unremarkable except as noted in HPI & below Physical Exam Physical Exam: Constitutional: WD/WN,acutely ill appearing, F, vitals as above,lying in bed, pleasant, conversing easily Head: Normocephalic, Atraumatic Eyes: PERRL, conjunctivae normal,no nystagmus anicteric sclerae +phonophobia ENMT: external ear WNL, TM white, good anatomical landmarks,nose normal, oropharynx normal Neck: trachea midline, no thyromegaly normal visual inspection Respiratory: normal respiratory effort, lungs clear to auscultation, no wheeze, rales, rhonchi. Normal insp/exp effort, no accessory muscle use Cardiovascular: RRR, no murmur, no edema Vessels: no JVD or carotid bruit Chest: normal inspection of chest Abdomen: normal bowel sounds, soft, nontender, no hepatosplenomegaly Musculoskeletal: no cyanosis or clubbing, extremities motor strength 5/5 Skin: no rashes, warm and dry normal turgor Neurologic: +dizziness with rapid head movements/position change improves with rest, PERRL, EOMI, accommodation nl, no face palsy, no dysarthria CN's II-XI intact bilaterally and moves all extremities, point to point negative, heel to aviles negative Psychiatric: A+Ox3, euthymic affect Lymphatic: no cervical or axillary lymphadenopathy : deferred Results & Data Results & Data ([facility]) Vital Signs (Past 12 Hours) Vital Signs Temp Pulse Resp BP Pulse Ox 04/11/20 15:01 80 19 158/90 H 04/11/20 15:00 78 22 04/11/20 14:31 79 14 04/11/20 14:30 81 20 172/98 H 04/11/20 14:27 82 17 166/104 H 04/11/20 14:00 81 20 156/103 H 04/11/20 13:31 79 23 04/11/20 13:30 78 20 174/102 H 04/11/20 13:24 79 19 155/99 H 04/11/20 13:00 80 17 165/110 H 96 04/11/20 12:31 80 24 95 04/11/20 12:30 82 21 162/110 H 93 04/11/20 12:01 85 16 157/102 H 95 04/11/20 12:00 81 15 95 04/11/20 11:30 87 23 04/11/20 11:25 84 24 04/11/20 11:21 36.9 C 90 18 142/102 H 97 04/11/20 11:11 83 20 142/102 H Laboratory Results Short CBC 04/11/20 Range/Units 12:00 WBC 9.92 (4.8-10.8) K/uL Hgb 14.8 (12.0-16.0) g/dL Hct 43.2 (37-47) % Plt Count 301 (130-400) K/uL BMP 04/11/20 12:00 Sodium 138 Potassium 3.6 Chloride 106 Carbon Dioxide 26 BUN 16 Creatinine 0.88 Glucose 123 H Calcium 9.5 Cardiac Enzymes 04/11/20 Range/Units 12:00 Troponin I < 0.015 (0-0.045) ng/ml Liver Function 04/11/20 Range/Units 12:00 Total Bilirubin 0.5 (0.2-1) mg/dl AST 12 L (15-37) U/L ALT 25 (12-78) U/L Alkaline Phosphatase 115 (45-117) U/L Albumin 3.8 (3.4-5.0) gm/dl Diagnostic Findings Head CT: Impression: No acute intracranial abnormality. CXR: IMPRESSION: Improved densities left lung base. No acute process. Medications Administered Discontinued Medications Diphenhydramine HCl (Benadryl) 25 mg IV NOW STA Stop: 04/11/20 12:50 Last Admin: 04/11/20 12:59 Dose: 25 mg Documented by: [id number] Sodium Chloride (Nss) 500 mls @ 999 mls/hr IV .Q31M COLT Stop: 04/11/20 13:30 Last Infusion: 04/11/20 14:09 Dose: 0 mls/hr Documented by: [id number] Admin: 04/11/20 12:59 Dose: 999 mls/hr Documented by: [id number] Magnesium Sulfate/Dextrose (Magnesium Sulfate / D5w) 1 gm in 100 mls @ 100 mls/hr IV NOW STA Stop: 04/11/20 13:49 Last Infusion: 04/11/20 14:08 Dose: 0 mls/hr Documented by: [id number] Admin: 04/11/20 12:59 Dose: 100 mls/hr Documented by: [id number] Prochlorperazine (Compazine) 10 mg IV NOW STA Stop: 04/11/20 12:50 Last Admin: 04/11/20 12:59 Dose: 10 mg Documented by: [id number] ECG Rate (beats per minute): 81 Rhythm: normal sinus Findings: + nonspecific-ST abn and + Q waves (inferior) Code Status & VTE Plan Code Status Full Code VTE Prophylaxis Plan VTE Prophylaxis will be ordered: Yes Supervising Physician Co-Signing Physician Notes Attending addendum: pt Seen and examined, care coordinated with Ritika Mayer PA-C This is a 70-year-old female with past medical history of cyclic vomiting syndrome, chronic migraine, Was recently discharged from [facility] approximately a week ago for intractable headache Getting admitted today secondary to severe generalized weakness, dizzy spell, ambulatory dysfunction Patient mentioned her symptom got worse last night, not able to sit up on bed due to profound dizzy spell, No focal weakness, no visual change, has chronic headache due to her migraine CT head noncontrast shows no acute change Physical exam: As per Ritika Mayer PA-C Assessment and plan: Dizzy spell/headache: Patient symptom gets worse with change of position, turning head side by side, possible benign positional vertigo? Ordered for PRN meclizine PT OT consulted Will benefit with Anil maneuver High blood pressure: Has not taken any of her a.m. meds this morning Blood pressure was slightly elevated SBP 150s, Ordered to give amlodipine 10 mg a.m. med now All her outpatient BP meds resumed Please refer to further documentation by Ritika Mayer PA-C for discussion of other chronic issues Ellen Niño MD
[2020-04-11] MEDS ORDERED: EPINEPHRINE 0.3 MG IM PRN (17:22)
[2020-04-11] MEDS ORDERED: PRAMIPEXOLE DIHYDROCHLO 0.25 MG TAB PO PRN (17:22)
[2020-04-11] MEDS ORDERED: diazePAM 5 MG TABLET PO PRN (17:22)
[2020-04-11] MEDS ORDERED: ACETAMINOPHEN 325 MG TAB PO PRN (17:22)
[2020-04-11] MEDS ORDERED: PROCHLORPERAZINE MALEATE 10 MG TAB PO PRN (17:22)
[2020-04-11] MEDS ORDERED: MECLIZINE HCL 25 MG TAB PO PRN (17:22)
[2020-04-11] MEDS ORDERED: POLYETHYLENE (MIRALAX) 17 GM PACK PO PRN ×2 (17:22)
[2020-04-11] MEDS ORDERED: FUROSEMIDE 20 MG TAB PO PRN ×2 (17:22)
[2020-04-11] MEDS ORDERED: ALUMINUM/MAGNESIUM SUSP 30 ML UDC PO PRN (17:22)
[2020-04-11] MEDS ORDERED: PROMETHAZINE HCL 25 MG TAB PO PRN (17:22)
[2020-04-11] MEDS ORDERED: NITROGLYCERIN 0.3 MG/1 TAB 100 TAB BTL SL PRN (17:22)
[2020-04-11] MEDS ORDERED: TIZANIDINE HCL 4 MG TABLET PO PRN (17:22)
[2020-04-11] MEDS ORDERED: MAGNESIUM HYDROXIDE SUSP 30 ML UDC PO PRN (17:22)
[2020-04-11] MEDS ORDERED: fentaNYL 12 MCG/HR TDSY TD SCH (18:00)
[2020-04-11] MEDS: fentaNYL 25 MCG/HR TDSY TD SCH (18:20)
[2020-04-11] MEDS ORDERED: HEPARIN 100 UNIT/ML 5ML FLUSH ONE (18:26)
[2020-04-11] MEDS: LURASIDONE HCL 40 MG TAB PO SCH (19:35)
[2020-04-11] MEDS: MIRTAZAPINE TAB 15 MG TAB PO SCH (20:06)
[2020-04-11] MEDS: GABAPENTIN 300 MG CAP PO SCH (20:07)
[2020-04-11] MEDS: MAGNESIUM OXIDE 400 MG TAB PO SCH (20:08)
[2020-04-11] MEDS: TRAZODONE HCL 100 MG TAB PO SCH (20:09)
[2020-04-11] MEDS: carvediloL 12.5 MG TAB PO SCH (20:09)
[2020-04-11 20:10] LABS: Appearance Urine Cloudy (Clear); Bacteria Urine Automated Negative (Negative); Bilirubin Urine Negative (Negative); Blood Urine Negative (Negative); Color Urine Yellow; Glucose Urine UA Negative (Negative); Ketones Urine Negative (Negative); Leukocyte Esterase Urine Negative (Negative); Nitrite Urine Negative (Negative); Protein Urine Negative (Negative); RBC Urine Automated 0-4 /hpf (0-4); Specific Gravity Urine 1.016 (1.000-1.030); Urobilinogen Urine Negative (Negative)
[2020-04-11] MEDS: CALCIUM 600MG + VIT D 400 IU TAB PO SCH (20:10)
[2020-04-11] MEDS: TRAMADOL HCL 50 MG TABLET PO PRN (20:30)
[2020-04-11] MEDS: HEPARIN SOD 5,000 UNIT/0.5 ML VIAL SQ SCH (21:55)
[2020-04-12] MEDS: CHECK FENTANYL PATCH PLACEMENT SCH ×8 (00:09→23:50)
[2020-04-12] MEDS: HEPARIN SOD 5,000 UNIT/0.5 ML VIAL SQ SCH ×3 (05:48→21:30)
[2020-04-12] MEDS: LEVOTHYROXINE SODIUM 75 MCG TABLET PO SCH (05:48)
[2020-04-12 06:58] LABS: BUN Creatinine Ratio 16.5 (10-20); Calcium 9.1 mg/dl (8.5-10.1); Creatinine Clr Calc Pharmacy 64.5 ml/min; Est GFR (African American) 82.9; Est GFR (Non-African American) 71.5; Magnesium 2.2 mg/dl (1.8-2.4); Potassium 3.5 mmol/L (3.5-5.1)
[2020-04-12] MEDS: TRAMADOL HCL 50 MG TABLET PO PRN (08:24)
[2020-04-12] MEDS: ONDANSETRON INJ 2 MG/ML 2 ML VIAL IV PRN (08:24)
[2020-04-12] MEDS: CALCIUM 600MG + VIT D 400 IU TAB PO SCH ×2 (08:25→20:22)
[2020-04-12] MEDS: carvediloL 12.5 MG TAB PO SCH ×2 (08:25→20:22)
[2020-04-12] MEDS: FUROSEMIDE 20 MG TAB PO SCH (08:26)
[2020-04-12] MEDS: ATORVASTATIN 40 MG TAB PO SCH (08:26)
[2020-04-12] MEDS: ASPIRIN 81 MG ECTAB PO SCH (08:26)
[2020-04-12] MEDS: MAGNESIUM OXIDE 400 MG TAB PO SCH ×2 (08:26→20:20)
[2020-04-12] MEDS: PANTOprazole 40 MG TAB PO SCH (08:27)
[2020-04-12] MEDS: AMLODIPINE BESYLATE 5 MG TAB PO SCH (08:27)
[2020-04-12] MEDS: CEROVITE ADV FORMULA TAB PO SCH (08:27)
[2020-04-12] MEDS ORDERED: NON-FORMULARY MEDICATION (Riboflavin (Vitamin B2) 400 MG) PO SCH (09:00)
[2020-04-12] MEDS: HYDROmorphone INJ 0.5 MG/0.5 ML SYR IV PRN ×2 (13:08→19:07)
--- NOTE | 2020-04-12 14:52 | Hospitalist Progress Note ---
Date of Service April 12, 2020 Assessment & Plan (1) Dizziness: Severe dizziness with nausea but no other associated symptoms Dizziness is worse with movement and with ambulation Neck movement causes dizziness to be worse Slightly better this morning CT scan of the head has been negative We will ask for physical therapy and Anil maneuver (2) Ambulatory dysfunction: Mrs. Lua is a 70-year-old female with significant PMH of CAD, chronic younger tolic CHF, HTN, HLD, hypothyroidism, prediabetes, CVS, GERD, failed back syndrome, postpolio syndrome, depression with anxiety, PTSD, history of DVT who presents to ED secondary to dizziness and off-balance x12 hours. Consult PT OT consider Anil maneuver Received IVF in ED -BMP otherwise unremarkable will not continue IVF (3) Intractable migraine: Patient with complaints of right-sided eye pain with phonophobia and photophobia Also has associated nausea Likely component of migraine Did receive migraine cocktail in ED Will try Zomig for migraine Prior treatment with Imitrex failed (4) CAD (coronary artery disease): Denies chest pain or shortness of breath Continue ASA, statin, carvedilol Denies any acute cardiac symptoms (5) Chronic heart failure with preserved ejection fraction (HFpEF): She is euvolemic Continue Coreg, Lasix Daily weights, strict I's and O's Heart healthy diet (6) Hypertension: Blood pressure elevated in ED He did not take her morning meds Give amlodipine 10 mg x 1 now Continue Coreg, amlodipine, Lasix Blood pressure remains at the upper side of normal (7) Hyperlipidemia: continue statin (8) Hypothyroidism: continue levothyroxine (9) Cyclical vomiting: has hx of CVS this has been stable (10) Chronic pain: Continue fentanyl patch, PRN tramadol (11) Restless leg syndrome: Continue Mirapex as needed (12) Depression: with anxiety, PTSD continue latuda, BuSpar, trazodone Mood stable (13) DVT prophylaxis: SQ Heparin pt with hx of DVT/PE Disposition: admit to medical Follow up: PCP Dr. Spann upon discharge Pt was seen and examined in collaboration with Dr. Niño, please see addendum (14) Chronic back pain: History of chronic back pain without radiation Has been on pain medication We will give small dose of Dilaudid IV while in the hospital and continue PT evaluation Admission and Anticipated Discharge Date Admission Date: April 11, 2020 Subjective The patient was seen and examined in medical floor She has multiple medical conditions as mentioned in H&P including history of migraine nonresponsive to Imitrex was admitted with dizziness, headache and ambulatory dysfunction She complains to have severe pain at the back which is causing more problem with her dizziness Headache is little better and she did participate with physical therapy Review of Systems Review of Systems: All systems reviewed and are unremarkable except as noted below Musculoskeletal: + back pain (Severe back pain without radiation with history of chronic back pain); no radicular pain Neurologic: + dizziness and + headache(s) Physical Exam Physical Exam: Lying in bed comfortably but looks depressed Constitutional: + acute distress (Back pain) and + ill appearing Eyes: PERRL, conjunctivae normal, anicteric sclerae ENMT: external ear and nose normal, oropharynx normal Neck: trachea midline, no thyromegaly Respiratory: normal respiratory effort; no respiratory distress Auscultation: lungs clear to auscultation bilaterally Cardiovascular: Rate/Rhythm: regular rate and regular rhythm Heart Sounds: no murmur Gastrointestinal (Abdomen): Inspection/Auscultation: abdomen normal to inspection; abdomen not distended Percussion/Palpation: abdomen soft; abdomen nontender Musculoskeletal: No acute arthritis in any joints Neurologic: moves all extremities; no focal motor deficits Psychiatric: Affect: + anxious affect Mood: + depressed mood Results & Data Results & Data ([facility]) Vital Signs (Past 12 Hours) Vital Signs Temp Pulse Resp BP Pulse Ox 04/12/20 07:11 36.6 C 74 18 151/88 H 91 Laboratory Results [facility] 04/12/20 06:16 Sodium 141 Potassium 3.5 Chloride 107 Carbon Dioxide 28 BUN 14 Creatinine 0.82 Glucose 121 H Calcium 9.1 Urine 04/11/20 Range/Units 19:55 Urine Color Yellow Urine Appearance Cloudy A (Clear) Urine pH 7.0 (4.5-7.5) Ur Specific [place] 1.016 (1.000-1.030) Urine Protein Negative (Negative) Urine Glucose (UA) Negative (Negative) Medications Administered Current Inpatient Medications Acetaminophen (Tylenol) 650 mg PO Q4H PRN PRN Reason: pain/fever Stop: 05/11/20 17:21 Al Hydrox/Mg Hydrox/Simethicone (Maalox) 30 ml PO Q6H PRN PRN Reason: Dyspepsia Stop: 05/11/20 17:21 Amlodipine Besylate (Norvasc) 10 mg PO DAILY [facility] Stop: 05/12/20 08:59 Last Admin: 04/12/20 08:27 Dose: 10 mg Documented by: Aspirin (Ecotrin Ectab) 81 mg PO QAM [facility] Stop: 05/12/20 08:59 Last Admin: 04/12/20 08:26 Dose: 81 mg Documented by: Atorvastatin Calcium (Lipitor) 40 mg PO QAM [facility] Stop: 05/12/20 08:59 Last Admin: 04/12/20 08:26 Dose: 40 mg Documented by: Buspirone HCl (Buspar) 10 mg PO TID [facility] Stop: 05/11/20 20:59 Last Admin: 04/12/20 13:54 Dose: 10 mg Documented by: Carvedilol (Coreg) 12.5 mg PO BID [facility] Stop: 05/11/20 20:59 Last Admin: 04/12/20 08:25 Dose: 12.5 mg Documented by: Diazepam (Valium) 5 mg PO HS PRN PRN Reason: Anxiety Stop: 05/11/20 17:21 Last Admin: 04/11/20 22:01 Dose: 5 mg Documented by: Fentanyl (Duragesic) 12 mcg TD Q72H [facility] Stop: 04/25/20 17:59 Last Admin: 04/11/20 18:20 Dose: 12 mcg Documented by: Fentanyl (Duragesic) 25 mcg TD Q72H [facility] Stop: 04/25/20 17:59 Last Admin: 04/11/20 18:20 Dose: 25 mcg Documented by: Furosemide (Lasix) 20 mg PO QAM [facility] Stop: 05/12/20 08:59 Last Admin: 04/12/20 08:26 Dose: 20 mg Documented by: Furosemide (Lasix) 20 mg PO QPM PRN PRN Reason: edema Stop: 05/11/20 17:21 Furosemide (Lasix) 20 mg PO QPM PRN PRN Reason: edema Stop: 05/11/20 17:21 Gabapentin (Neurontin) 600 mg PO HS [facility] Stop: 05/11/20 20:59 Last Admin: 04/11/20 20:07 Dose: 600 mg Documented by: Heparin Sodium (Porcine) (Heparin Sodium (Porcine)) 5,000 units SQ Q8 [facility] Stop: 05/11/20 21:59 Last Admin: 04/12/20 13:54 Dose: 5,000 units Documented by: Heparin Sodium (Porcine) (Heparin Sod 100 Unit/Ml Flush) 5 ml FLUSH PRN PRN PRN Reason: Flush Stop: 05/11/20 18:40 Hydromorphone HCl (Dilaudid) 0.5 mg IV Q6H PRN PRN Reason: Pain Stop: 04/26/20 11:11 Last Admin: 04/12/20 13:08 Dose: 0.5 mg Documented by: Hydroxyzine HCl (Vistaril) 25 mg PO BID PRN PRN Reason: Anxiety Stop: 05/11/20 17:21 Levothyroxine Sodium (Synthroid) 75 mcg PO DAILYBB [facility] Stop: 05/12/20 06:29 Last Admin: 04/12/20 05:48 Dose: 75 mcg Documented by: Lurasidone HCl (Latuda) 20 mg PO QDD [facility] Stop: 05/11/20 17:59 Last Admin: 04/11/20 19:35 Dose: 20 mg Documented by: Magnesium Hydroxide (Milk Of Magnesia) 30 ml PO Q6H PRN PRN Reason: Constipation Stop: 05/11/20 17:21 Magnesium Oxide (Mag-Ox) 400 mg PO BID [facility] Stop: 05/11/20 20:59 Last Admin: 04/12/20 08:26 Dose: 400 mg Documented by: Meclizine HCl (Antivert) 25 mg PO Q6H PRN PRN Reason: Dizziness or Vertigo Stop: 05/11/20 17:21 Mirtazapine (Remeron) 7.5 mg PO HS [facility] Stop: 05/11/20 20:59 Last Admin: 04/11/20 20:06 Dose: 7.5 mg Documented by: Miscellaneous (Fentanyl Patch Remove & Waste) 1 ea N/A Q72H [facility] Stop: 05/14/20 17:59 Miscellaneous (Fentanyl Patch Check Placement) 1 ea N/A QS [facility] Stop: 05/12/20 00:00 Last Admin: 04/12/20 08:24 Dose: 1 ea Documented by: Miscellaneous (Order Awaiting Action) 1 ea N/A QS [facility] Stop: 05/12/20 00:00 Last Admin: 04/12/20 07:30 Dose: Not Given Documented by: Miscellaneous (Fentanyl Patch Remove & Waste) 1 ea N/A Q72H [facility] Stop: 05/14/20 17:59 Miscellaneous (Fentanyl Patch Check Placement) 1 ea N/A QS [facility] Stop: 05/12/20 00:00 Last Admin: 04/12/20 08:24 Dose: 1 ea Documented by: Multivitamins/Minerals (Multivitamin W/ Minerals Tab) 1 tab PO QAM [facility] Stop: 05/12/20 08:59 Last Admin: 04/12/20 08:27 Dose: 1 tab Documented by: Multivitamins/Minerals (Caltrate Plus) 1 tab PO BID [facility] Stop: 05/11/20 20:59 Last Admin: 04/12/20 08:25 Dose: 1 tab Documented by: Nitroglycerin (Nitrostat) 0.3 mg SL UD PRN PRN Reason: Chest Pain Stop: 05/11/20 17:21 Ondansetron HCl (Zofran) 4 mg IV Q6H PRN PRN Reason: Nausea Stop: 05/11/20 17:21 Last Admin: 04/12/20 08:24 Dose: 4 mg Documented by: Pantoprazole Sodium (Protonix) 40 mg PO QAM [facility] Stop: 05/12/20 08:59 Last Admin: 04/12/20 08:27 Dose: 40 mg Documented by: Polyethylene Glycol (Miralax Powder Packet) 17 gm PO DAILY PRN PRN Reason: Constipation Stop: 05/11/20 17:21 Pramipexole Dihydrochloride (Mirapex) 0.125 mg PO HS PRN PRN Reason: Restless Leg(S) Stop: 05/11/20 17:21 Prochlorperazine (Compazine) 10 mg PO BID PRN PRN Reason: Nausea Stop: 05/11/20 17:21 Promethazine HCl (Phenergan) 25 mg PO Q6H PRN PRN Reason: Nausea Stop: 05/11/20 17:21 Last Admin: 04/12/20 13:08 Dose: 25 mg Documented by: Tizanidine HCl (Zanaflex) 4 mg PO BID PRN PRN Reason: Muscle Spasm Stop: 05/11/20 17:21 Tramadol HCl (Ultram) 50 mg PO Q8 PRN PRN Reason: severe pain Stop: 07/24/20 17:21 Last Admin: 04/12/20 08:24 Dose: 50 mg Documented by: Trazodone HCl (Desyrel) 200 mg PO HS COLT Stop: 05/11/20 20:59 Last Admin: 04/11/20 20:09 Dose: 200 mg Documented by:
[2020-04-12] MEDS: LURASIDONE HCL 40 MG TAB PO SCH (17:20)
[2020-04-12] MEDS: HEPARIN 100 UNIT/ML 5ML FLUSH FLUSH PRN (19:07)
[2020-04-12] MEDS: MIRTAZAPINE TAB 15 MG TAB PO SCH (20:21)
[2020-04-12] MEDS: TRAZODONE HCL 100 MG TAB PO SCH (20:21)
[2020-04-12] MEDS: GABAPENTIN 300 MG CAP PO SCH (20:22)
[2020-04-13] MEDS: HYDROmorphone INJ 0.5 MG/0.5 ML SYR IV PRN ×2 (01:16→07:55)
[2020-04-13] MEDS: HEPARIN SOD 5,000 UNIT/0.5 ML VIAL SQ SCH ×3 (05:50→21:43)
[2020-04-13] MEDS: LEVOTHYROXINE SODIUM 75 MCG TABLET PO SCH (05:50)
[2020-04-13] MEDS: CHECK FENTANYL PATCH PLACEMENT SCH ×5 (07:51→23:43)
[2020-04-13] MEDS: CALCIUM 600MG + VIT D 400 IU TAB PO SCH ×2 (07:52→20:09)
[2020-04-13] MEDS: carvediloL 12.5 MG TAB PO SCH ×2 (07:52→20:07)
[2020-04-13] MEDS: ASPIRIN 81 MG ECTAB PO SCH (07:53)
[2020-04-13] MEDS: FUROSEMIDE 20 MG TAB PO SCH (07:53)
[2020-04-13] MEDS: ATORVASTATIN 40 MG TAB PO SCH (07:53)
[2020-04-13] MEDS: MAGNESIUM OXIDE 400 MG TAB PO SCH ×2 (07:54→20:11)
[2020-04-13] MEDS: AMLODIPINE BESYLATE 5 MG TAB PO SCH (07:54)
[2020-04-13] MEDS: CEROVITE ADV FORMULA TAB PO SCH (07:54)
[2020-04-13] MEDS: PANTOprazole 40 MG TAB PO SCH (07:54)
[2020-04-13] MEDS: ONDANSETRON INJ 2 MG/ML 2 ML VIAL IV PRN (07:55)
[2020-04-13] MEDS: HEPARIN 100 UNIT/ML 5ML FLUSH FLUSH PRN ×2 (07:55→14:22)
--- NOTE | 2020-04-13 12:23 | Hospitalist Progress Note ---
Date of Service April 13, 2020 Assessment & Plan (1) Dizziness: Severe dizziness with nausea but no other associated symptoms Dizziness could due to Intractable Migraine Dizziness is worse with movement and with ambulation Neck movement causes dizziness to be worse Slightly better this morning CT scan of the head has been negative We will ask for physical therapy and Anil maneuver Symptomatically much improved today 04/13/2020 Has been ambulating in the room without any difficulty Will be discharged home this afternoon (2) Ambulatory dysfunction: Mrs. Lua is a 70-year-old female with significant PMH of CAD, chronic diastolic CHF, HTN, HLD, hypothyroidism, prediabetes, CVS, GERD, failed back syndrome, postpolio syndrome, depression with anxiety, PTSD, history of DVT who presents to ED secondary to dizziness and off-balance x12 hours. Consult PT OT consider Anil maneuver Received IVF in ED -BMP otherwise unremarkable will not continue IVF Has had PT and OT evaluation Recommended to go home (3) Intractable migraine: Patient with complaints of right-sided eye pain with phonophobia and photophobia Also has associated nausea Likely component of migraine Did receive migraine cocktail in ED Will try Zomig for migraine-nonformulary in the hospital Prior treatment with Imitrex failed Headache is much controlled (4) CAD (coronary artery disease): Denies chest pain or shortness of breath Continue ASA, statin, carvedilol Denies any acute cardiac symptoms (5) Chronic heart failure with preserved ejection fraction (HFpEF): She is euvolemic Continue Coreg, Lasix Daily weights, strict I's and O's Heart healthy diet (6) Hypertension: Blood pressure elevated in ED He did not take her morning meds Give amlodipine 10 mg x 1 now Continue Coreg, amlodipine, Lasix Blood pressure remains at the upper side of normal (7) Hyperlipidemia: continue statin (8) Hypothyroidism: continue levothyroxine (9) Cyclical vomiting: has hx of CVS this has been stable (10) Chronic pain: Continue fentanyl patch, PRN tramadol (11) Restless leg syndrome: Continue Mirapex as needed (12) Depression: with anxiety, PTSD continue latuda, BuSpar, trazodone Mood stable (13) DVT prophylaxis: SQ Heparin pt with hx of DVT/PE Disposition: admit to medical Follow up: PCP Dr. Spann upon discharge Discharged home this afternoon (14) Chronic back pain: History of chronic back pain without radiation Has been on pain medication We will give small dose of Dilaudid IV while in the hospital and continue PT evaluation Admission and Anticipated Discharge Date Admission Date: April 12, 2020 Subjective The patient was seen and examined in medical floor She has multiple medical conditions as mentioned in H&P including history of migraine nonresponsive to Imitrex was admitted with dizziness, headache and ambulatory dysfunction She complains to have severe pain at the back which is causing more problem with her dizziness Headache is little better and she did participate with physical therapy 04/13/2020 The patient was seen and examined in the medical floor She has been feeling a lot better Her headache is controlled and dizziness is much improved She has been ambulating in the room without any problem and she wants to go home Review of Systems Review of Systems: All systems reviewed and are unremarkable except as noted below Musculoskeletal: + back pain (Severe back pain without radiation with history of chronic back pain); no radicular pain Neurologic: no dizziness and no headache(s) Physical Exam Physical Exam: Lying in bed comfortably but looks depressed Constitutional: + ill appearing; no acute distress (Back pain) Eyes: PERRL, conjunctivae normal, anicteric sclerae ENMT: external ear and nose normal, oropharynx normal Neck: trachea midline, no thyromegaly Respiratory: normal respiratory effort; no respiratory distress Auscultation: lungs clear to auscultation bilaterally Cardiovascular: Rate/Rhythm: regular rate and regular rhythm Heart Sounds: no murmur Gastrointestinal (Abdomen): Inspection/Auscultation: abdomen normal to inspection; abdomen not distended Percussion/Palpation: abdomen soft; abdomen nontender Musculoskeletal: No acute arthritis involving any joints Neurologic: moves all extremities; no focal motor deficits Psychiatric: Affect: + anxious affect Mood: + depressed mood Results & Data Results & Data ([facility]) Vital Signs (Past 12 Hours) Vital Signs Temp Pulse Resp BP BP Pulse Ox 04/13/20 12:19 83 16 114/78 95 04/13/20 08:00 36.5 C 73 18 143/92 H 91 04/13/20 03:34 36.8 C 83 19 110/72 90 Medications Administered Current Inpatient Medications Acetaminophen (Tylenol) 650 mg PO Q4H PRN PRN Reason: pain/fever Stop: 05/11/20 17:21 Al Hydrox/Mg Hydrox/Simethicone (Maalox) 30 ml PO Q6H PRN PRN Reason: Dyspepsia Stop: 05/11/20 17:21 Amlodipine Besylate (Norvasc) 10 mg PO DAILY [facility] Stop: 05/12/20 08:59 Last Admin: 04/13/20 07:54 Dose: 10 mg Documented by: Aspirin (Ecotrin Ectab) 81 mg PO QAM [facility] Stop: 05/12/20 08:59 Last Admin: 04/13/20 07:53 Dose: 81 mg Documented by: Atorvastatin Calcium (Lipitor) 40 mg PO QAM [facility] Stop: 05/12/20 08:59 Last Admin: 04/13/20 07:53 Dose: 40 mg Documented by: Buspirone HCl (Buspar) 10 mg PO TID [facility] Stop: 05/11/20 20:59 Last Admin: 04/13/20 07:52 Dose: 10 mg Documented by: Carvedilol (Coreg) 12.5 mg PO BID [facility] Stop: 05/11/20 20:59 Last Admin: 04/13/20 07:52 Dose: 12.5 mg Documented by: Diazepam (Valium) 5 mg PO HS PRN PRN Reason: Anxiety Stop: 05/11/20 17:21 Last Admin: 04/11/20 22:01 Dose: 5 mg Documented by: Fentanyl (Duragesic) 12 mcg TD Q72H [facility] Stop: 04/25/20 17:59 Last Admin: 04/11/20 18:20 Dose: 12 mcg Documented by: Fentanyl (Duragesic) 25 mcg TD Q72H [facility] Stop: 04/25/20 17:59 Last Admin: 04/11/20 18:20 Dose: 25 mcg Documented by: Furosemide (Lasix) 20 mg PO QAM [facility] Stop: 05/12/20 08:59 Last Admin: 04/13/20 07:53 Dose: 20 mg Documented by: Furosemide (Lasix) 20 mg PO QPM PRN PRN Reason: edema Stop: 05/11/20 17:21 Furosemide (Lasix) 20 mg PO QPM PRN PRN Reason: edema Stop: 05/11/20 17:21 Gabapentin (Neurontin) 600 mg PO HS [facility] Stop: 05/11/20 20:59 Last Admin: 04/12/20 20:22 Dose: 600 mg Documented by: Heparin Sodium (Porcine) (Heparin Sodium (Porcine)) 5,000 units SQ Q8 [facility] Stop: 05/11/20 21:59 Last Admin: 04/13/20 05:50 Dose: 5,000 units Documented by: Heparin Sodium (Porcine) (Heparin Sod 100 Unit/Ml Flush) 5 ml FLUSH PRN PRN PRN Reason: Flush Stop: 05/11/20 18:40 Last Admin: 04/13/20 07:55 Dose: 5 ml Documented by: Hydromorphone HCl (Dilaudid) 0.5 mg IV Q6H PRN PRN Reason: Pain Stop: 04/26/20 11:11 Last Admin: 04/13/20 07:55 Dose: 0.5 mg Documented by: Hydroxyzine HCl (Vistaril) 25 mg PO BID PRN PRN Reason: Anxiety Stop: 05/11/20 17:21 Levothyroxine Sodium (Synthroid) 75 mcg PO DAILYBB [facility] Stop: 05/12/20 06:29 Last Admin: 04/13/20 05:50 Dose: 75 mcg Documented by: Lurasidone HCl (Latuda) 20 mg PO QDD [facility] Stop: 05/11/20 17:59 Last Admin: 04/12/20 17:20 Dose: 20 mg Documented by: Magnesium Hydroxide (Milk Of Magnesia) 30 ml PO Q6H PRN PRN Reason: Constipation Stop: 05/11/20 17:21 Magnesium Oxide (Mag-Ox) 400 mg PO BID [facility] Stop: 05/11/20 20:59 Last Admin: 04/13/20 07:54 Dose: 400 mg Documented by: Meclizine HCl (Antivert) 25 mg PO Q6H PRN PRN Reason: Dizziness or Vertigo Stop: 05/11/20 17:21 Mirtazapine (Remeron) 7.5 mg PO HS [facility] Stop: 05/11/20 20:59 Last Admin: 04/12/20 20:21 Dose: 7.5 mg Documented by: Miscellaneous (Fentanyl Patch Remove & Waste) 1 ea N/A Q72H [facility] Stop: 05/14/20 17:59 Miscellaneous (Fentanyl Patch Check Placement) 1 ea N/A QS [facility] Stop: 05/12/20 00:00 Last Admin: 04/13/20 07:51 Dose: 1 ea Documented by: Miscellaneous (Order Awaiting Action) 1 ea N/A QS [facility] Stop: 05/12/20 00:00 Last Admin: 04/13/20 07:51 Dose: Not Given Documented by: Miscellaneous (Fentanyl Patch Remove & Waste) 1 ea N/A Q72H [facility] Stop: 05/14/20 17:59 Miscellaneous (Fentanyl Patch Check Placement) 1 ea N/A QS [facility] Stop: 05/12/20 00:00 Last Admin: 04/13/20 07:51 Dose: 1 ea Documented by: Multivitamins/Minerals (Multivitamin W/ Minerals Tab) [facility] Stop: 05/12/20 08:59 Last Admin: 04/13/20 07:54 Dose: 1 tab Documented by: Multivitamins/Minerals (Caltrate Plus) 1 tab PO BID [facility] Stop: 05/11/20 20:59 Last Admin: 04/13/20 07:52 Dose: 1 tab Documented by: Nitroglycerin (Nitrostat) 0.3 mg SL UD PRN PRN Reason: Chest Pain Stop: 05/11/20 17:21 Ondansetron HCl (Zofran) 4 mg IV Q6H PRN PRN Reason: Nausea Stop: 05/11/20 17:21 Last Admin: 04/13/20 07:55 Dose: 4 mg Documented by: Pantoprazole Sodium (Protonix) 40 mg PO QAM [facility] Stop: 05/12/20 08:59 Last Admin: 04/13/20 07:54 Dose: 40 mg Documented by: Polyethylene Glycol (Miralax Powder Packet) 17 gm PO DAILY PRN PRN Reason: Constipation Stop: 05/11/20 17:21 Pramipexole Dihydrochloride (Mirapex) 0.125 mg PO HS PRN PRN Reason: Restless Leg(S) Stop: 05/11/20 17:21 Prochlorperazine (Compazine) 10 mg PO BID PRN PRN Reason: Nausea Stop: 05/11/20 17:21 Last Admin: 04/12/20 16:40 Dose: 10 mg Documented by: Promethazine HCl (Phenergan) 25 mg PO Q6H PRN PRN Reason: Nausea Stop: 05/11/20 17:21 Last Admin: 04/12/20 13:08 Dose: 25 mg Documented by: Tizanidine HCl (Zanaflex) 4 mg PO BID PRN PRN Reason: Muscle Spasm Stop: 05/11/20 17:21 Tramadol HCl (Ultram) 50 mg PO Q8 PRN PRN Reason: severe pain Stop: 05/11/20 17:21 Last Admin: 04/12/20 08:24 Dose: 50 mg Documented by: Trazodone HCl (Desyrel) 200 mg PO HS [facility]T Stop: 05/11/20 20:59 Last Admin: 04/12/20 20:21 Dose: 200 mg Documented by:
--- NOTE | 2020-04-13 13:56 | XRay Report ---
XR chest 1V portable CLINICAL HISTORY: Low pulse ox dyspnea COMPARISON STUDY: 04/11/2020 FINDINGS: Unchanging pleural reactive change left lung base. Lungs otherwise appear clear. Mild promi nence of the pulmonary vasculature IMPRESSION: 1. Mild stable cardiomegaly. 2. Unchanging pleural-based density left lung base. 3. Developing pulmonary vascular congestion. ACT 112: Negative or not required by law. The above report was generated using voice recognition software. It may contain grammatical, syntax or spelling errors. Electronically signed by: Dann Felix M.D. 04/13/2020 1:55 PM
[2020-04-13] MEDS ORDERED: FUROSEMIDE 40 MG in SYRINGE 0 ML IV ONE (14:15)
[2020-04-13] MEDS ORDERED: NALOXONE HCL 0.4 MG/1 ML VIAL/CARP IV STA (14:21)
[2020-04-13 14:28] LABS: iSTAT Allen Test Pass; iSTAT Art Bld Gas pCO2 Correct 72 mmHg (35-46); iSTAT Art Bld Gas pH Corrected 7.265 (7.35-7.45); iSTAT Arterial Blood Gas HCO3 33 meg/L (19-24); iSTAT Arterial Blood Gas pCO2 71 mmHg (35-46); iSTAT Arterial Blood Gas pH 7.27 (7.35-7.45); iSTAT Arterial Blood Gas pO2 70 mmHg (80-95); iSTAT Arterial Blood Gas pO2 C 71; iSTAT Carbon Dioxide 35 mmol/L (24-31); iSTAT Hematocrit 44 % (37-47); iSTAT Potassium 4.1 mmol/L (3.3-5.0); iSTAT Site R Radial; iSTAT Sodium 140 mmol/L (135-144)
[2020-04-13 14:59] LABS: Allen Test Pos (Pos); Base Excess ABG 1.3 mEq/L (-9-1.8); HCO3 ABG 29 mmol/L (19-24); Oxygen Saturation ABG 99.3 % (90-95); PCO2 ABG 60 mmHg (35-46); PO2 ABG 181 mmHg (80-95)
--- NOTE | 2020-04-13 15:57 | Electrocardiogram Report ---
Test Reason : Blood Pressure : / mmHG Vent. Rate : 081 BPM Atrial Rate : 081 BPM P-R Int : 190 ms QRS Dur : 092 ms QT Int : 396 ms P-R-T Axes : 056 -49 039 degrees QTc Int : 460 ms Normal sinus rhythm Left axis deviation Low voltage QRS Inferior infarct (cited on or before 18-JUN-2019) Cannot rule out Anterior infarct (cited on or before 18-JUN-2019) Abnormal ECG When compared with ECG of 11-APR-2020 11:44, Non-specific change in ST segment in Inferior leads Confirmed by Alexx Duarte ([id number]) on 04/13/2020 3:57:04 PM Referred By: Charanjit Spann Confirmed By:Alexx Duarte
[2020-04-13] MEDS: LURASIDONE HCL 40 MG TAB PO SCH (18:25)
[2020-04-13] MEDS: fentaNYL 25 MCG/HR TDSY TD SCH (20:02)
[2020-04-13] MEDS: TRAZODONE HCL 100 MG TAB PO SCH (20:07)
[2020-04-13] MEDS: MIRTAZAPINE TAB 15 MG TAB PO SCH (20:11)
[2020-04-13] MEDS: GABAPENTIN 300 MG CAP PO SCH (20:13)
[2020-04-13] MEDS: TRAMADOL HCL 50 MG TABLET PO PRN (23:51)
[2020-04-14] MEDS: HEPARIN 100 UNIT/ML 5ML FLUSH FLUSH PRN ×2 (05:58→13:00)
[2020-04-14] MEDS: LEVOTHYROXINE SODIUM 75 MCG TABLET PO SCH (06:04)
[2020-04-14] MEDS: HEPARIN SOD 5,000 UNIT/0.5 ML VIAL SQ SCH (06:04)
[2020-04-14 06:31] LABS: Basophils # (auto) 0.05 K/uL (0-0.2); Basophils % (auto) 0.5 %; Eosinophils # (auto) 0.52 K/uL (0-0.5); Eosinophils % (auto) 5.4 %; Hematocrit (blood only) 42.3 % (37-47); Hemoglobin 13.4 g/dL (12.0-16.0); Immature Granulocytes # (auto) 0.01 K/uL (0.00-0.02); Immature Granulocytes % (auto) 0.1 %; Lymphocytes # (auto) 3.75 K/uL (1.2-3.4); Lymphocytes % (auto) 38.9 %; Mean Corpuscular Hemoglobin 28.3 pg (25-34); Mean Corpuscular Hgb Conc 31.7 g/dL (32-36); Mean Corpuscular Volume 89.2 fL (80-100); Mean Platelet Volume 9.1 fL (7.4-10.4); Monocytes # (auto) 0.69 K/uL (0.11-0.59); Monocytes % (auto) 7.2 %; Neutrophils # (auto) 4.63 K/uL (1.4-6.5); Neutrophils % (auto) 47.9 %; Platelet Count 281 K/uL (130-400); RDW Coefficient of Variation 14.9 % (11.5-14.5); RDW Standard Deviation 49.1 fL (36.4-46.3); Red Blood Count 4.74 M/uL (4.2-5.4); White Blood Count 9.65 K/uL (4.8-10.8)
[2020-04-14 07:12] LABS: BUN Creatinine Ratio 12.4 (10-20); Creatinine Clr Calc Pharmacy 48.4 ml/min; Est GFR (African American) 57.5; Est GFR (Non-African American) 49.6; Potassium 3.6 mmol/L (3.5-5.1)
[2020-04-14] MEDS: CHECK FENTANYL PATCH PLACEMENT SCH (09:19)
[2020-04-14] MEDS: PANTOprazole 40 MG TAB PO SCH (09:21)
[2020-04-14] MEDS: AMLODIPINE BESYLATE 5 MG TAB PO SCH (09:22)
[2020-04-14] MEDS: MAGNESIUM OXIDE 400 MG TAB PO SCH (09:22)
[2020-04-14] MEDS: CEROVITE ADV FORMULA TAB PO SCH (09:22)
[2020-04-14] MEDS: ATORVASTATIN 40 MG TAB PO SCH (09:22)
[2020-04-14] MEDS: ASPIRIN 81 MG ECTAB PO SCH (09:22)
[2020-04-14] MEDS: FUROSEMIDE 20 MG TAB PO SCH (09:22)
[2020-04-14] MEDS: carvediloL 12.5 MG TAB PO SCH (09:22)
[2020-04-14] MEDS: CALCIUM 600MG + VIT D 400 IU TAB PO SCH (09:23)
[2020-04-14] MEDS: TRAMADOL HCL 50 MG TABLET PO PRN (09:29)
--- NOTE | 2020-04-14 12:12 | Hospitalist Progress Note ---
Date of Service April 14, 2020 Assessment & Plan (1) Dizziness: Severe dizziness with nausea but no other associated symptoms Dizziness could due to Intractable Migraine Dizziness is worse with movement and with ambulation Neck movement causes dizziness to be worse Slightly better this morning CT scan of the head has been negative We will ask for physical therapy and Anil maneuver Symptomatically much improved today 04/13/2020 Has been ambulating in the room without any difficulty Denies any symptoms as of this morning and has been ambulating without any dizziness Will be discharged home this afternoon Semi-responsiveness with desaturation P was called yesterday afternoon with decreased responsiveness and very low O2 saturation Was noted to have fentanyl patch in the mouth and the patient denies to put that patch in her mouth by herself and she cannot remember anything after she complained to have some itchiness involving that patch area. This morning she is asymptomatic and wants to go home She is mentally clear and knows that if she takes any patch orally or if she takes any medication overdose with narcotic she may She assured me repeatedly that she will not do it again and she knows the consequences of overmedication with narcotics She will be discharged home this afternoon (2) Ambulatory dysfunction: Mrs. Lua is a 70-year-old female with significant PMH of CAD, chronic diastolic CHF, HTN, HLD, hypothyroidism, prediabetes, CVS, GERD, failed back syndrome, postpolio syndrome, depression with anxiety, PTSD, history of DVT who presents to ED secondary to dizziness and off-balance x12 hours. Consult PT OT consider Anil maneuver Received IVF in ED -BMP otherwise unremarkable will not continue IVF Has had PT and OT evaluation Recommended to go home (3) Intractable migraine: Patient with complaints of right-sided eye pain with phonophobia and photophobia Also has associated nausea Likely component of migraine Did receive migraine cocktail in ED Will try Zomig for migraine-nonformulary in the hospital Prior treatment with Imitrex failed Headache is much controlled (4) CAD (coronary artery disease): Denies chest pain or shortness of breath Continue ASA, statin, carvedilol Denies any acute cardiac symptoms (5) Chronic heart failure with preserved ejection fraction (HFpEF): She is euvolemic Continue Coreg, Lasix Daily weights, strict I's and O's Heart healthy diet (6) Hypertension: Blood pressure elevated in ED He did not take her morning meds Give amlodipine 10 mg x 1 now Continue Coreg, amlodipine, Lasix Blood pressure remains at the upper side of normal (7) Hyperlipidemia: continue statin (8) Hypothyroidism: continue levothyroxine (9) Cyclical vomiting: has hx of CVS this has been stable (10) Chronic pain: Continue fentanyl patch, PRN tramadol (11) Restless leg syndrome: Continue Mirapex as needed (12) Depression: with anxiety, PTSD continue latuda, BuSpar, trazodone Mood stable (13) DVT prophylaxis: SQ Heparin pt with hx of DVT/PE Disposition: admit to medical Follow up: PCP Dr. Spann upon discharge Discharged home this afternoon (14) Chronic back pain: History of chronic back pain without radiation Has been on pain medication We will give small dose of Dilaudid IV while in the hospital and continue PT evaluation Admission and Anticipated Discharge Date Admission Date: April 12, 2020 Subjective The patient was seen and examined in medical floor She has multiple medical conditions as mentioned in H&P including history of migraine nonresponsive to Imitrex was admitted with dizziness, headache and ambulatory dysfunction She complains to have severe pain at the back which is causing more problem with her dizziness Headache is little better and she did participate with physical therapy 04/13/2020 The patient was seen and examined in the medical floor She has been feeling a lot better Her headache is controlled and dizziness is much improved She has been ambulating in the room without any problem and she wants to go home 04/14/2020 The patient was seen and examined in medical floor She cannot remember what happened yesterday that she was very unresponsive or semi-responsive with decreasing oxygen saturation She remembered that she reached the area with the fentanyl patch and after that she cannot remember anything She is mentally clear that if she should use the patch she may She mentioned that she will need the patch to control the pain without the patch she will be miserable Denies any symptoms as of this morning and she wants to go home Review of Systems Review of Systems: All systems reviewed and are unremarkable except as noted below Musculoskeletal: + back pain (Severe back pain without radiation with history of chronic back pain); no radicular pain Physical Exam Physical Exam: Lying in bed comfortably but looks depressed Constitutional: + ill appearing; no acute distress (Back pain) Eyes: PERRL, conjunctivae normal, anicteric sclerae ENMT: external ear and nose normal, oropharynx normal Neck: trachea midline, no thyromegaly Respiratory: normal respiratory effort; no respiratory distress Auscul tation: lungs clear to auscultation bilaterally Cardiovascular: Rate/Rhythm: regular rate and regular rhythm Heart Sounds: no murmur Gastrointestinal (Abdomen): Inspection/Auscultation: abdomen normal to inspection; abdomen not distended Percussion/Palpation: abdomen soft; abdomen nontender Neurologic: moves all extremities; no focal motor deficits Psychiatric: Affect: + anxious affect Mood: + depressed mood Results & Data Results & Data ([facility]) Vital Signs (Past 12 Hours) Vital Signs Temp Pulse Resp BP Pulse Ox 04/14/20 06:23 36.6 C 72 20 115/77 94 Laboratory Results Short CBC 04/14/20 Range/Units 05:58 WBC 9.65 (4.8-10.8) K/uL Hgb 13.4 (12.0-16.0) g/dL Hct 42.3 (37-47) % Plt Count 281 (130-400) K/uL BMP 04/14/20 05:58 Sodium 142 Potassium 3.6 Chloride 103 Carbon Dioxide 35 H BUN 14 Creatinine 1.11 Glucose 138 H Calcium 9.0 Medications Administered Current Inpatient Medications Acetaminophen (Tylenol) 650 mg PO Q4H PRN PRN Reason: pain/fever Stop: 05/11/20 17:21 Al Hydrox/Mg Hydrox/Simethicone (Maalox) 30 ml PO Q6H PRN PRN Reason: Dyspepsia Stop: 05/11/20 17:21 Amlodipine Besylate (Norvasc) 10 mg PO DAILY [facility] Stop: 05/12/20 08:59 Last Admin: 04/14/20 09:22 Dose: 10 mg Documented by: Aspirin (Ecotrin Ectab) 81 mg PO QAM [facility] Stop: 05/12/20 08:59 Last Admin: 04/14/20 09:22 Dose: 81 mg Documented by: Atorvastatin Calcium (Lipitor) 40 mg PO QAM [facility] Stop: 05/12/20 08:59 Last Admin: 04/14/20 09:22 Dose: 40 mg Documented by: Buspirone HCl (Buspar) 10 mg PO TID [facility] Stop: 05/11/20 20:59 Last Admin: 04/14/20 09:23 Dose: 10 mg Documented by: Carvedilol (Coreg) 12.5 mg PO BID [facility] Stop: 05/11/20 20:59 Last Admin: 04/14/20 09:22 Dose: 12.5 mg Documented by: Diazepam (Valium) 5 mg PO HS PRN PRN Reason: Anxiety Stop: 05/11/20 17:21 Last Admin: 04/11/20 22:01 Dose: 5 mg Documented by: Fentanyl (Duragesic) 25 mcg TD Q72H [facility] Stop: 04/25/20 17:59 Last Admin: 04/13/20 20:02 Dose: 25 mcg Documented by: Furosemide (Lasix) 20 mg PO QAM [facility] Stop: 05/12/20 08:59 Last Admin: 04/14/20 09:22 Dose: 20 mg Documented by: Furosemide (Lasix) 20 mg PO QPM PRN PRN Reason: edema Stop: 05/11/20 17:21 Furosemide (Lasix) 20 mg PO QPM PRN PRN Reason: edema Stop: 05/11/20 17:21 Gabapentin (Neurontin) 600 mg PO HS [facility] Stop: 05/11/20 20:59 Last Admin: 04/13/20 20:13 Dose: 600 mg Documented by: Heparin Sodium (Porcine) (Heparin Sodium (Porcine)) 5,000 units SQ Q8 [facility] Stop: 05/11/20 21:59 Last Admin: 04/14/20 06:04 Dose: 5,000 units Documented by: Heparin Sodium (Porcine) (Heparin Sod 100 Unit/Ml Flush) 5 ml FLUSH PRN PRN PRN Reason: Flush Stop: 05/11/20 18:40 Last Admin: 04/14/20 05:58 Dose: 5 ml Documented by: Hydroxyzine HCl (Vistaril) 25 mg PO BID PRN PRN Reason: Anxiety Stop: 05/11/20 17:21 Levothyroxine Sodium (Synthroid) 75 mcg PO DAILYBB [facility] Stop: 05/12/20 06:29 Last Admin: 04/14/20 06:04 Dose: 75 mcg Documented by: Lurasidone HCl (Latuda) 20 mg PO QDD [facility] Stop: 05/11/20 17:59 Last Admin: 04/13/20 18:25 Dose: 20 mg Documented by: Magnesium Hydroxide (Milk Of Magnesia) 30 ml PO Q6H PRN PRN Reason: Constipation Stop: 05/11/20 17:21 Magnesium Oxide (Mag-Ox) 400 mg PO BID [facility] Stop: 05/11/20 20:59 Last Admin: 04/14/20 09:22 Dose: 400 mg Documented by: Meclizine HCl (Antivert) 25 mg PO Q6H PRN PRN Reason: Dizziness or Vertigo Stop: 05/11/20 17:21 Mirtazapine (Remeron) 7.5 mg PO HS [facility] Stop: 05/11/20 20:59 Last Admin: 04/13/20 20:11 Dose: 7.5 mg Documented by: Miscellaneous (Fentanyl Patch Remove & Waste) 1 ea N/A Q72H [facility] Stop: 05/14/20 17:59 Miscellaneous (Fentanyl Patch Check Placement) 1 ea N/A QS [facility] Stop: 05/12/20 00:00 Last Admin: 04/14/20 09:19 Dose: 1 ea Documented by: Miscellaneous (Order Awaiting Action) 1 ea N/A QS [facility] Stop: 05/12/20 00:00 Last Admin: 04/14/20 09:53 Dose: Not Given Documented by: Multivitamins/Minerals (Multivitamin W/ Minerals Tab) 1 tab PO QAM [facility] Stop: 05/12/20 08:59 Last Admin: 04/14/20 09:22 Dose: 1 tab Documented by: Multivitamins/Minerals (Caltrate Plus) 1 tab PO BID [facility] Stop: 05/11/20 20:59 Last Admin: 04/14/20 09:23 Dose: 1 tab Documented by: Nitroglycerin (Nitrostat) 0.3 mg SL UD PRN PRN Reason: Chest Pain Stop: 05/11/20 17:21 Ondansetron HCl (Zofran) 4 mg IV Q6H PRN PRN Reason: Nausea Stop: 05/11/20 17:21 Last Admin: 04/13/20 07:55 Dose: 4 mg Documented by: Pantoprazole Sodium (Protonix) 40 mg PO QAM [facility] Stop: 05/12/20 08:59 Last Admin: 04/14/20 09:21 Dose: 40 mg Documented by: Polyethylene Glycol (Miralax Powder Packet) 17 gm PO DAILY PRN PRN Reason: Constipation Stop: 05/11/20 17:21 Pramipexole Dihydrochloride (Mirapex) 0.125 mg PO HS PRN PRN Reason: Restless Leg(S) Stop: 05/11/20 17:21 Prochlorperazine (Compazine) 10 mg PO BID PRN PRN Reason: Nausea Stop: 05/11/20 17:21 Last Admin: 04/12/20 16:40 Dose: 10 mg Documented by: Promethazine HCl (Phenergan) 25 mg PO Q6H PRN PRN Reason: Nausea Stop: 05/11/20 17:21 Last Admin: 04/12/20 13:08 Dose: 25 mg Documented by: Tizanidine HCl (Zanaflex) 4 mg PO BID PRN PRN Reason: Muscle Spasm Stop: 05/11/20 17:21 Tramadol HCl (Ultram) 50 mg PO Q8 PRN PRN Reason: severe pain Stop: 05/11/20 17:21 Last Admin: 04/14/20 09:29 Dose: 50 mg Documented by: Trazodone HCl (Desyrel) 200 mg PO HS [facility]T Stop: 05/11/20 20:59 Last Admin: 04/13/20 20:07 Dose: 200 mg Documented by:
--- NOTE | 2020-04-15 07:57 | Discharge Summary ---
Date of Service April 15, 2020 Admission HPI Per Admitting Provider Mrs. Lua is a 70-year-old female with significant PMH of CAD, chronic diastolic CHF, HTN, HLD, hypothyroidism, prediabetes, CVS, GERD, failed back syndrome, postpolio syndrome, depression with anxiety, PTSD, history of DVT who presents to ED secondary to dizziness and off-balance x12 hours. She states that she awoke this morning and went to sit up at her bedside. When she tried to get up to go to the bathroom she, "collapsed." She denies syncope or loss of consciousness. She did not hit head or have any injuries. When she collapsed she felt extremely weak in her bilateral upper and lower extremities. She lives alone had a very difficult time returning herself to bed. When she did return to bed she got up a few hours later and tried to go to the bathroom again and when she went to stand up she, "collapsed again." At that time when she was able to get up she called PCP who recommended ED evaluation for possible stroke. At the time of collapse she admits to being dizzy and describes this as a spinning sensation. She overall felt off balance and had associated nausea. She does have history of cyclic vomiting syndrome and this nausea was different. Complains of R frontal headache, sharp, 8/10, nothing made better/worse, similar to migrainein past. During episode she denied any diaphoresis, chest pain, palpitations, shortness of breath, change in vision, change in hearing, tinnitus, emesis, abdominal pain, change in bowel or urinary habits. She further denies any recent URI symptoms including sinus congestion, rhinorrhea, sore throat or cough. She does have history of depression and overall feels that this is stable at this point. She also history of chronic pain syndrome and is on fentanyl patch. She removed her patch this morning but did not replace it. She do not take any of her a.m. meds. Her appetite is overall been reduced for the past few days but she has been drinking adequate fluid intake. She denies any prior history of vertigo. In ED patient was hemodynamically stable although she was hypotensive with a BP of 158/90. She underwent CBC, CMP, troponin and TSH was relatively unremarkable. Chest x- ray was negative acute abnormality. Head CT was negative for acute abnormality. She did receive IV fluids, IV diphenhydramine, 1 g IV magnesium and prochlorperazine in ED without much relief. Admission Exam Per Admitting Provider Physical Exam: Constitutional: WD/WN,acutely ill appearing, F, vitals as above,lying in bed, pleasant, conversing easily Head: Normocephalic, Atraumatic Eyes: PERRL, conjunctivae normal,no nystagmus anicteric sclerae +phonophobia ENMT: external ear WNL, TM white, good anatomical landmarks,nose normal, oropharynx normal Neck: trachea midline, no thyromegaly normal visual inspection Respiratory: normal respiratory effort, lungs clear to auscultation, no wheeze, rales, rhonchi. Normal insp/exp effort, no accessory muscle use Cardiovascular: RRR, no murmur, no edema Vessels: no JVD or carotid bruit Chest: normal inspection of chest Abdomen: normal bowel sounds, soft, nontender, no hepatosplenomegaly Musculoskeletal: no cyanosis or clubbing, extremities motor strength 5/5 Skin: no rashes, warm and dry normal turgor Neurologic: +dizziness with rapid head movements/position change improves with rest, PERRL, EOMI, accommodation nl, no face palsy, no dysarthria CN's II-XI intact bilaterally and moves all extremities, point to point negative, heel to aviles negative Psychiatric: A+Ox3, euthymic affect Lymphatic: no cervical or axillary lymphadenopathy : deferred Principal Diagnosis Dizziness likely labyrinthine and is improved, intractable migraine, chronic CHF with preserved EF, hypertension, ambulatory dysfunction, chronic pain Discharge Exam Constitutional + ill appearing; no acute distress (Back pain) Eyes PERRL, conjunctivae normal, anicteric sclerae ENMT external ear and nose normal, oropharynx normal Neck trachea midline, no thyromegaly Respiratory normal respiratory effort; no respiratory distress Auscultation: lungs clear to auscultation bilaterally Cardiovascular Rate/Rhythm: regular rate and regular rhythm Heart Sounds: no murmur Gastrointestinal (Abdomen) Inspection/Auscultation: abdomen normal to inspection; abdomen not distended Percussion/Palpation: abdomen soft; abdomen nontender Neurologic moves all extremities; no focal motor deficits Psychiatric Affect: + anxious affect Mood: + depressed mood Discharge Data Allergies Allergy/AdvReac Type Severity Reaction Status Date / Time latex Allergy Intermediate Rash Verified 04/11/20 11:28 nickel Allergy Intermediate SEVERE Verified 04/11/20 11:28 DERMATITIS NSAIDS (Non-Steroidal Allergy Intermediate HX OF Verified 04/11/20 11:28 Anti-Inflamma BLEEDING ULCERS-TO AVOID aspirin AdvReac Intermediate bleeding Verified 04/11/20 11:28 ulcers Consultations 04/11/20 14:59 ED Decision to Admit Stat 04/11/20 17:22 Consult Case Management - Discharge Planning Routine Ordered Studies 04/11/20 12:49 CT head/brain wo con Stat Hospital Course (1) Dizziness: Severe dizziness with nausea but no other associated symptoms Dizziness could due to Intractable Migraine Dizziness is worse with movement and with ambulation Neck movement causes dizziness to be worse Slightly better this morning CT scan of the head has been negative We will ask for physical therapy and Anil maneuver Symptomatically much improved today 04/13/2020 Has been ambulating in the room without any difficulty Denies any symptoms as of this morning and has been ambulating without any dizziness Will be discharged home this afternoon Semi-responsiveness with desaturation P was called yesterday afternoon with decreased responsiveness and very low O2 saturation Was noted to have fentanyl patch in the mouth and the patient denies to put that patch in her mouth by herself and she cannot remember anything after she complained to have some itchiness involving that patch area. This morning she is asymptomatic and wants to go home She is mentally clear and knows that if she takes any patch orally or if she takes any medication overdose with narcotic she may She assured me repeatedly that she will not do it again and she knows the consequences of overmedication with narcotics She will be discharged home this afternoon (2) Ambulatory dysfunction: Mrs. Lua is a 70-year-old female with significant PMH of CAD, chronic diastolic CHF, HTN, HLD, hypothyroidism, prediabetes, CVS, GERD, failed back syndrome, postpolio syndrome, depression with anxiety, PTSD, history of DVT who presents to ED secondary to dizziness and off-balance x12 hours. Consult PT OT consider Anil maneuver Received IVF in ED -BMP otherwise unremarkable will not continue IVF Has had PT and OT evaluation Recommended to go home (3) Intractable migraine: Patient with complaints of right-sided eye pain with phonophobia and photophobia Also has associated nausea Likely component of migraine Did receive migraine cocktail in ED Will try Zomig for migraine-nonformulary in the hospital Prior treatment with Imitrex failed Headache is much controlled (4) CAD (coronary artery disease): Denies chest pain or shortness of breath Continue ASA, statin, carvedilol Denies any acute cardiac symptoms (5) Chronic heart failure with preserved ejection fraction (HFpEF): She is euvolemic Continue Coreg, Lasix Daily weights, strict I's and O's Heart healthy diet (6) Hypertension: Blood pressure elevated in ED He did not take her morning meds Give amlodipine 10 mg x 1 now Continue Coreg, amlodipine, Lasix Blood pressure remains at the upper side of normal (7) Hyperlipidemia: continue statin (8) Hypothyroidism: continue levothyroxine (9) Cyclical vomiting: has hx of CVS this has been stable (10) Chronic pain: Continue fentanyl patch, PRN tramadol (11) Restless leg syndrome: Continue Mirapex as needed (12) Depression: with anxiety, PTSD continue latuda, BuSpar, trazodone Mood stable (13) DVT prophylaxis: SQ Heparin pt with hx of DVT/PE Disposition: admit to medical Follow up: PCP Dr. Spann upon discharge Discharged home this afternoon (14) Chronic back pain: History of chronic back pain without radiation Has been on pain medication We will give small dose of Dilaudid IV while in the hospital and continue PT evaluation Total Time Total Time Spent Total Time Spent (In Minutes): 35 minutes Total Time Includes: Examination of the Patient, Discharge Planning, Medication Reconciliation and Communication With Other Providers Discharge Plan Discharge Items Patient Disposition: Home - Self-Care Reason For Visit: HEADACHE/WEAKNESS Discharge Diagnosis: Dizziness likely labyrinthine and is improved, intractable migraine, chronic CHF with preserved EF, hypertension, ambulatory dysfunction, chronic pain Activity: Resume your previous activity Non-emergency contact: Primary Care Provider Call non-emergency contact if: you have any medication questions and your symptoms worsen Follow-up/Referrals: Charanjit Spann MD [Primary Care Provider] - 04/19/20 2:00 pm (04/19/2020 2:00 PM Provider Charanjit Spann MD Department Family Practice [facility] ) Diet: Heart Healthy Addtl Attending Provider Instructions: Please take precaution to avoid falls Pending Studies at Discharge: No Stand-Alone Forms: My [employer], Smoking Cessation Medications and DC Order Prescriptions: Continued nitroglycerin [Nitrostat] 0.3 mg Tablet, Sublingual 0.3 mg sublingual UD PRN (Reason: Chest Pain) RF: 0 aspirin [Aspir-81] 81 mg Tablet,Delayed Release (Dr/Ec) 81 mg PO QAM RF: 0 magnesium oxide 400 mg (241.3 mg magnesium) Tablet 400 mg PO BID RF: 0 Calcium 600 + D(3) 600 mg calcium- 200 unit Capsule 1 cap PO BID RF: 0 olopatadine 0.2 % Drops 1 drp OPB QAM RF: 0 epinephrine 0.3 mg/0.3 mL Syringe 0.3 mg IM Q3H PRN (Reason: Allergic Reaction) RF: 0 Ocuvite Adult 50 Plus 250-5-1 mg Capsule 1 cap PO QAM RF: 0 pantoprazole 40 mg tablet,delayed release (DR/EC) 40 mg PO QAM RF: 0 mirtazapine 7.5 mg tablet 7.5 mg PO HS RF: 0 Latuda 20 mg Tablet 20 mg PO QPM RF: 0 gabapentin 300 mg capsule 600 mg PO HS RF: 0 carvedilol 12.5 mg tablet 12.5 mg PO BID RF: 0 amlodipine 10 mg tablet 10 mg PO DAILY RF: 0 diazepam 5 mg tablet 5 mg PO HS PRN (Reason: Anxiety) RF: 0 furosemide 20 mg Tablet 20 mg PO QAM Qty: 30 RF: 0 furosemide 20 mg Tablet 20 mg PO QPM PRN (Reason: edema) Qty: 30 RF: 0 atorvastatin [Lipitor] 40 mg Tablet 40 mg PO QAM RF: 0 levothyroxine 75 mcg Tablet 75 mcg PO QAM RF: 0 buspirone 10 mg Tablet 10 mg PO TID RF: 0 tramadol [Ultram] 50 mg Tablet 50 mg PO Q8 PRN (Reason: severe pain) RF: 0 pramipexole [Mirapex] 0.125 mg Tablet 0.125 mg PO HS PRN (Reason: Restless Leg(S)) RF: 0 prochlorperazine maleate 5 mg tablet 10 mg PO BID PRN (Reason: Nausea) RF: 0 polyethylene glycol 3350 17 gram Powder In Packet 17 g PO DAILY PRN (Reason: Constipation) RF: 0 promethazine 25 mg Tablet 25 mg PO Q6H PRN (Reason: Nausea) RF: 0 fentanyl [Duragesic] 25 mcg/hr patch 72 hour 1 patch topical [id number] RF: 0 fentanyl [Duragesic] 12 mcg/hr patch 72 hour 1 patch topical [id number] RF: 0 hydroxyzine HCl 25 mg tablet 25 mg PO BID PRN (Reason: Anxiety) RF: 0 tizanidine 4 mg tablet 4 mg PO BID PRN (Reason: Muscle Spasm) RF: 0 trazodone 100 mg Tablet 200 mg PO HS RF: 0 riboflavin (vitamin B2) 400 mg tablet 400 mg PO DAILY Qty: 30 RF: 1 Discharge Orders: Discharge Order (Routine); Ordered 04/14/20 Ordered By: Ramírez Pineda/Other Patient Handouts: Opioid Use Risks, ED Overdose, Opiate Admission Data Admit Date/Time: 04/12/20 14:25 Attending Provider: Ramírez Sotelo Admit Provider: Ellen Niño Primary Care Provider: Charanjit Spann Other Providers: Ellen Niño Other Interventions: Discharge Summary Assessment (RN) Last Done: 04/14/20 12:45 DC Date/Time DO NOT enter until pt leaves facility: 04/14/20 13:27
== END 2020-04-14 13:27 | disposition home or self-care (01) | DRG 103 ==
LOC: ED 11:07 → 2N 11:07 → SUATTDRO 15:33 → 2N 15:47 → 3N 04-13 12:13

== ENCOUNTER 2020-10-05 16:20 | Inpatient (IN) ==
[2020-10-05] MEDS ORDERED: ACETAMINOPHEN 325 MG TAB PO STA (16:41)
--- NOTE | 2020-10-05 17:06 | Emergency Department Note ---
Impression & Plan Hypoxia, Fall, Acute confusion, DVT (deep venous thrombosis) ED Provider Note NAME: JOVANNI DE SANTIAGO AGE: 70 SEX: F : 1950 ARRIVES VIA: Ambulance INFORMANT: Patient ED PROVIDER(S): Krystian Molina DO CHIEF COMPLAINT: Left and right hand pain as well as a headache and neck pain HPI: Patient is a 70-year-old female presents ER following falling out of bed. She fell a height of about 3 feet this morning. She is complaining of pain on her left third and fourth digits tracking into the palm of the hand as well as pain on her right fifth metacarpal but no pain anywhere else in that hand. She also complains of midline cervical pain and a headache which feels consistent with her previous migraines following hitting her head. Headache is worse with movement. She denies any change in vision. No chest pain, shortness of breath, nausea, vomiting or diarrhea. No cough or runny nose. She is on CPAP at night but no oxygen. She denies taking any narcotics. ROS: See above HPI for pertinent positives & negatives. A total of 10 systems reviewed and were otherwise negative. PAST MEDICAL HISTORY:See Below PAST SURGICAL HISTORY:See Below FAMILY HISTORY:See Below SOCIAL HISTORY:See Below HOME MEDICATIONS:See Below ALLERGIES:See Below VITALS:See Below PHYSICAL EXAMINATION: GENERAL: alert, disheveled, nontoxic HEAD: normal cephalic, atraumatic EYE EXAM: normal conjunctiva, pupils are pinpoint OROPHARYNX: Mask in place NECK: Mild midline mid cervical tenderness and paraspinal pain CHEST: stable to compression anteriorly and posteriorly LUNGS: clear to auscultation. Normal chest wall mechanics HEART: no murmurs, S1 normal and S2 normal ABDOMEN: abdomen soft, non-tender, normo-active bowel sounds, no masses, no rebound or guarding. PELVIS: stable to compression anteriorly and posteriorly BACK: Back is symmetrical on inspection and there is no deformity, no midline tenderness, no CVA tenderness. UPPER EXTREMITIES: No tenderness throughout bilateral shoulders, humerus, elbow tract through the mid radial ulna and to the wrist. Left hand with tenderness over the third and fourth digits tracking into the middle of the hand. No sign ificant swelling. Skin is intact. Radial pulses are 2 out of 4 bilaterally. Right hand with minimal tenderness over the distal aspect of the fifth metacarpal. LOWER EXTREMITIES: full active and passive range of motion of all joints without tenderness to palpation NEURO EXAM: Alert and oriented to person and place but falls asleep quickly cranial nerves II-XII grossly intact, normal speech, no gross weakness of arms, no gross weakness of legs. GCS: 15. MEDICAL DECISION MAKING: Patient is a 70-year-old female who presents the ER for multiple complaints following a fall out of bed at a height of about 3 feet. There is no obvious signs of any trauma on her. She was slightly elevated. She did have pinpoint pupils. On review of her chart does have a history of what appears to be an appropriate use of narcotics. IV was established blood work was obtained. Labs show no significant leukocytosis or anemia. INR was unremarkable. BMP with a potassium of 2.7. This was repleted with 40 mEq of potassium. She is given IV fluids and IV Zofran. Troponin was negative. Lipase unremarkable. Alcohol was negative. X-rays of bilateral hands and CT of the head and cervical spine were unremarkable. Patient was hypoxic at 87% on room air. Remains on 2 L nasal cannula. Was updated bedside. Tempted to obtain CT angio of the chest but the IV blew and consequently obtain Dopplers. Dopplers did not result until patient was admitted which did show a right peroneal DVT. As patient was admitted I discussed with Dr. Avendaño and he notes he will put in the orders for anticoagulation. favor that this likely cause of her prior hypoxia and she likely has PEs. Triage Nursing notes reviewed. Prior medical records reviewed Vital Signs: reviewed and remarkable for hypoxia Differential diagnosis: Differential diagnoses include major intracranial, cervical, spinal, thoracic, abdominal, pelvic and neurologic injury. Fracture, contusion, sprain, strain, laceration, abrasions included as well. ER treatment provided: See below Diagnostics interpreted by me: ECG: Sinus tachycardia rate of 102 Left axis No PVCs T wave inversion in septal leads Nonspecific ST wave changes in the high lateral leads QTC 497 No significant changes from 04/13/2020 Cardiac Monitoring: An order was placed for continuous cardiac monitoring. The monitor shows a rate of 80 with sinus rhythm. Laboratory studies: As stated above and show below. Imaging studies: CT head and cervical spine showed no acute pathology X-rays of the bilateral hands showed no acute fractures duplex shows DVT Consultation(s): Patient was discussed with admitted to Dr. Negron ED COURSE: Procedures: none Critical Care: I have personally spent 32 minutes of critical care time in the direct management of this patient. This includes bedside care, interpretation of diagnostic studies, and testing, discussion with consultants, patient, and family members, and other required patient management activities. This 32 minutes is in excess of all separately billable procedures. Past Med/Surg History Medical History (Updated 10/05/20 @ 21:49 by Krystian Molina DO) Anemia HX OF Anxiety CAD (coronary artery disease) 2017-[facility] to LAD Cervical spondylolysis Chronic heart failure with preserved ejection fraction (HFpEF) Chronic pain Colitis Cyclical vomiting Deep vein thrombosis 4 YEARS AGO Degenerative disc disease Depression Dyslipidemia GI bleed history of. declining anticoagulation due to hx of GIB. Hyperlipidemia Hypertension Hypothyroidism Migraine Mood disorder Myocardial Infarction 2 YEARS AGO Osteoarthritis Post traumatic stress disorder Pulmonary embolism 2 YEARS OLD (UNSURE OF REASON) Restless leg syndrome Scoliosis Surgical History Fusion of spine LUMBAR H/O ovarian cystectomy H/O repair of right rotator cuff H/O spinal fusion "1st surgery in [place], then multiple surgeries Dr. Catherine at [facility]" History of adenoidectomy History of anesthesia reaction WOKE UP IN MIDDLE OF SPINAL SURGERIES History of appendectomy History of cataract surgery LEFT AND RIGHT History of heart artery stent 2017- STENT PLACED AT [facility] (DR. DAVILA) History of laminectomy LUMBAR History of tonsillectomy History of vascular access device PORT LEFT UPPER CHEST-IN PLACE Ovarian cyst X 2 Family History Mother Hypertension Father Hypertension Social History Smoking Status: Never smoker Second Hand Exposure: No; Hx Alcohol Use: No Hx Substance Use: No Preferred Language: Palestinian Communication Ability: Effective Spanish Medical Interpreter Required: No Beliefs That Will Affect Care: None marital status: Single Current Living Situation: Alone current occupational status: retired Feels Safe at Home: Yes Assistive Devices: Oxygen - Continuous and Walker Allergies Allergies Allergy/AdvReac Type Severity Reaction Status Date / Time latex Allergy Intermediate Rash Verified 10/05/20 21:30 nickel Allergy Intermediate SEVERE Verified 10/05/20 21:30 DERMATITIS NSAIDS (Non-Steroidal Allergy Intermediate HX OF Verified 10/05/20 21:30 Anti-Inflamma BLEEDING ULCERS-TO AVOID adhesive tape AdvReac Intermediate SKIN Verified 10/05/20 21:30 IRRITATION aspirin AdvReac Intermediate bleeding Verified 10/05/20 21:30 ulcers Home Meds Home Medications Medication Instructions Recorded Confirmed atorvastatin [Lipitor] 40 mg PO QAM 12/13/18 04/11/20 buspirone 10 mg PO TID 12/13/18 04/11/20 levothyroxine 75 mcg PO QAM 12/13/18 04/11/20 pramipexole [Mirapex] 0.125 mg PO HS PRN 01/25/19 04/11/20 tramadol [Ultram] 50 mg PO Q8 PRN 01/25/19 04/11/20 polyethylene glycol 3350 17 g PO DAILY PRN 05/12/19 04/11/20 prochlorperazine maleate 10 mg PO BID PRN 05/12/19 04/11/20 promethazine 25 mg PO Q6H PRN 05/12/19 04/11/20 Calcium 600 + D(3) 1 cap PO BID 05/23/19 04/11/20 Ocuvite Adult 50 Plus 1 cap PO QAM 05/23/19 04/11/20 aspirin [Aspir-81] 81 mg PO QAM 05/23/19 04/11/20 epinephrine 0.3 mg IM Q3H PRN 05/23/19 04/11/20 magnesium oxide 400 mg PO BID 05/23/19 04/11/20 nitroglycerin [Nitrostat] 0.3 mg SUBLINGUAL UD PRN 05/23/19 04/11/20 olopatadine 1 drp OPB QAM 05/23/19 04/11/20 fentanyl [Duragesic] 1 patch TOPICAL [id number] 05/26/19 04/11/20 fentanyl [Duragesic] 1 patch TOPICAL [id number] 05/26/19 04/11/20 mirtazapine 7.5 mg PO HS 07/03/19 04/11/20 pantoprazole 40 mg PO QAM 07/03/19 04/11/20 Latuda 20 mg PO QPM 08/04/19 04/11/20 gabapentin 600 mg PO HS 01/30/20 04/11/20 amlodipine 10 mg PO DAILY 02/27/20 04/11/20 carvedilol 12.5 mg PO BID 02/27/20 04/11/20 diazepam 5 mg PO HS PRN 02/27/20 04/11/20 hydroxyzine HCl 25 mg PO BID PRN 04/03/20 04/11/20 tizanidine 4 mg PO BID PRN 04/03/20 04/11/20 trazodone 200 mg PO HS 04/03/20 04/11/20 Previous Rx's Medication Instructions Recorded furosemide 20 mg PO QAM #30 tab 02/29/20 furosemide 20 mg PO QPM PRN #30 tab 02/29/20 riboflavin (vitamin B2) 400 mg PO DAILY #30 tab 04/04/20 Results & Data (ED) Vital Signs Vital Signs - 24 hr 10/05/20 16:29 10/05/20 17:51 10/05/20 18:35 Temperature 37.1 C Temperature Source Oral Pulse Rate 106 H 99 H Pulse Rate [Apical] 99 H 95 H Respiratory Rate 20 18 18 Respiratory Effort / Characteristics Blood Pressure 105/87 Blood Pressure [Left Arm] 127/76 119/77 Blood Pressure Mean 93 Blood Pressure Mean [Left Arm] 93 91 Blood Pressure Position [Left Arm] Pulse Oximetry 88 L 96 93 Oxygen Delivery Method Room Air Nasal Cannula Nasal Cannula Oxygen Flow Rate 2 2 Sepsis Recent Fever Within 48 Hours No Sepsis New/Unexplained Change in Mental Status No Sepsis Action Taken by Nursing No Action Required 10/05/20 19:00 10/05/20 20:00 10/05/20 21:12 Temperature Temperature Source Pulse Rate Pulse Rate [Apical] 87 87 90 Respiratory Rate 21 20 19 Respiratory Effort / Characteristics Blood Pressure Blood Pressure [Left Arm] 118/64 129/61 122/77 Blood Pressure Mean Blood Pressure Mean [Left Arm] 82 83 92 Blood Pressure Position [Left Arm] Lying Pulse Oximetry 93 94 94 Oxygen Delivery Method Nasal Cannula Room Air Room Air Oxygen Flow Rate 2 Sepsis Recent Fever Within 48 Hours Sepsis New/Unexplained Change in Mental Status Sepsis Action Taken by Nursing 10/05/20 21:20 Temperature Temperature Source Pulse Rate Pulse Rate [Apical] 83 Respiratory Rate 18 Respiratory Effort / Characteristics Non-Labored Spontaneous Blood Pressure Blood Pressure [Left Arm] Blood Pressure Mean Blood Pressure Mean [Left Arm] Blood Pressure Position [Left Arm] Pulse Oximetry 94 Oxygen Delivery Method Nasal Cannula Oxygen Flow Rate 2 Sepsis Recent Fever Within 48 Hours Sepsis New/Unexplained Change in Mental Status Sepsis Action Taken by Nursing Laboratory Data Result diagrams: 10/05/20 17:06 10/05/20 17:06 Lab Results 10/05/20 10/05/20 10/05/20 Range/Units 17:06 17:06 17:06 WBC 10.32 (4.8-10.8) K/uL RBC 4.51 (4.2-5.4) M/uL Hgb 13.5 (12.0-16.0) g/dL Hct 38.9 (37-47) % MCV 86.3 (80-100) fL MCH 29.9 (25-34) pg MCHC 34.7 (32-36) g/dL RDW Std Deviation 43.4 (36.4-46.3) fL RDW Coeff of [place] 13.7 (11.5-14.5) % Plt Count 309 (130-400) K/uL MPV 9.7 (7.4-10.4) fL Immature Gran % (Auto) 0.2 % Neut % (Auto) 56.1 % Lymph % (Auto) 28.4 % [facility] % (Auto) 9.8 % Eos % (Auto) 4.9 % Baso % (Auto) 0.6 % Neut # (Auto) 5.79 (1.4-6.5) K/uL Lymph # (Auto) 2.93 (1.2-3.4) K/uL [facility] # (Auto) 1.01 H (0.11-0.59) K/uL Eos # (Auto) 0.51 H (0-0.5) K/uL Baso # (Auto) 0.06 (0-0.2) K/uL Immature Gran # (Auto) 0.02 (0.00-0.02) K/uL PT 11.1 (9.0-12.0) Seconds INR 1.1 (0.9-1.1) APTT 28.0 (21.0-31.0) Seconds PTT Ratio 1.0 Sodium 141 (136-145) mmol/L Potassium 2.7 L (3.5-5.1) mmol/L Chloride 100 (98-107) mmol/L Carbon Dioxide 34 H (21-32) mmol/L Anion Gap 7.0 (3-11) BUN 17 (7-18) mg/dl Creatinine 1.08 (0.6-1.2) mg/dl Est Cr Clr Drug Dosing 53.5 ml/min Est GFR ( Amer) 59.4 Est GFR (Non-Af Amer) 51.2 BUN/Creatinine Ratio 15.6 (10-20) Glucose 206 H (70-99) mg/dl Calcium 8.2 L (8.5-10.1) mg/dl Magnesium 1.7 L (1.8-2.4) mg/dl Total Bilirubin 0.5 (0.2-1) mg/dl AST 19 (15-37) U/L ALT 26 (12-78) U/L Alkaline Phosphatase 117 (45-117) U/L Troponin I < 0.015 (0-0.045) ng/ml Total Protein 7.5 (6.4-8.2) gm/dl Albumin 3.6 (3.4-5.0) gm/dl Globulin 3.9 (2.5-4.0) gm/dl Albumin/Globulin Ratio 0.9 (0.9-2) Lipase 60 L (73-393) U/L Ethyl Alcohol mg/dL (0-3) mg/dl COVID-19 Eval Order SARS-CoV-2, RNA, NAAT (NEGATIVE) 10/05/20 10/05/20 10/05/20 Range/Units 17:31 18:41 18:41 WBC (4.8-10.8) K/uL RBC (4.2-5.4) M/uL Hgb (12.0-16.0) g/dL Hct (37-47) % MCV (80-100) fL MCH (25-34) pg MCHC (32-36) g/dL RDW Std Deviation (36.4-46.3) fL RDW Coeff of [place]den (11.5-14.5) % Plt Count (130-400) K/uL MPV (7.4-10.4) fL Immature Gran % (Auto) % Neut % (Auto) % Lymph % (Auto) % [facility] % (Auto) % Eos % (Auto) % Baso % (Auto) % Neut # (Auto) (1.4-6.5) K/uL Lymph # (Auto) (1.2-3.4) K/uL [facility] # (Auto) (0.11-0.59) K/uL Eos # (Auto) (0-0.5) K/uL Baso # (Auto) (0-0.2) K/uL Immature Gran # (Auto) (0.00-0.02) K/uL PT (9.0-12.0) Seconds INR (0.9-1.1) APTT (21.0-31.0) Seconds PTT Ratio Sodium (136-145) mmol/L Potassium (3.5-5.1) mmol/L Chloride (98-107) mmol/L Carbon Dioxide (21-32) mmol/L Anion Gap (3-11) BUN (7-18) mg/dl Creatinine (0.6-1.2) mg/dl Est Cr Clr Drug Dosing ml/min Est GFR ( Amer) Est GFR (Non-Af Amer) BUN/Creatinine Ratio (10-20) Glucose (70-99) mg/dl Calcium (8.5-10.1) mg/dl Magnesium (1.8-2.4) mg/dl Total Bilirubin (0.2-1) mg/dl AST (15-37) U/L ALT (12-78) U/L Alkaline Phosphatase (45-117) U/L Troponin I (0-0.045) ng/ml Total Protein (6.4-8.2) gm/dl Albumin (3.4-5.0) gm/dl Globulin (2.5-4.0) gm/dl Albumin/Globulin Ratio (0.9-2) Lipase (73-393) U/L Ethyl Alcohol mg/dL < 3.0 (0-3) mg/dl COVID-19 Eval Order Covid19 IDNow [facility] SARS-CoV-2, RNA, NAAT NEGATIVE (NEGATIVE) Administered Medications Discontinued Medications Acetaminophen (Acetaminophen 325 Mg Tab) 650 mg PO NOW STA Stop: 10/05/20 16:42 Last Admin: 10/05/20 18:02 Dose: Not Given Documented by: [id number] Albuterol (Albut/Ipratrop 3mg/0.5mg Neb 3 Ml Vial) 3 ml NEB NOW STA Stop: 10/05/20 20:04 Last Admin: 10/05/20 21:20 Dose: 3 ml Documented by: [id number] Ioversol (Optiray 320 125ml) 118 ml IV ONCE ONE Stop: 10/05/20 19:44 Last Admin: 10/05/20 19:43 Dose: 118 ml Documented by: [id number] Ketorolac Tromethamine (Ketorolac Tromethamine 15 Mg/Ml Vial) 10 mg IV NOW ONE Stop: 10/05/20 19:20 Last Admin: 10/05/20 19:35 Dose: 10 mg Documented by: [id number] Ondansetron HCl (Ondansetron Inj 2 Mg/Ml 2 Ml Vial) 4 mg IV NOW STA Stop: 10/05/20 19:20 Last Admin: 10/05/20 19:35 Dose: 4 mg Documented by: [id number] Potassium Chloride (Potassium Chloride 10 Meq Tabcr) 40 meq PO NOW STA Stop: 10/05/20 18:12 Last Admin: 10/05/20 18:44 Dose: 40 meq Documented by: [id number] Discharge Plan Visit Data Chief Complaint: Fall Stated Complaint: FALL, HEADACHE, L HAND PAIN, BACK PAIN ED Provider: Krystian Molina Discharge Problem: Hypoxia, Fall, Acute confusion, DVT (deep venous thrombosis) Forms Stand Alone Forms: [facility] Prescriptions Prescriptions: No Action nitroglycerin [Nitrostat] 0.3 mg Tablet, Sublingual 0.3 mg sublingual UD PRN (Reason: Chest Pain) RF: 0 Calcium 600 + D(3) 600 mg calcium- 200 unit Capsule 1 cap PO BID RF: 0 olopatadine 0.2 % Drops 1 drp OPB QAM RF: 0 epinephrine 0.3 mg/0.3 mL Syringe 0.3 mg IM Q3H PRN (Reason: Allergic Reaction) RF: 0 Ocuvite Adult 50 Plus 250-5-1 mg Capsule 1 cap PO QAM RF: 0 pantoprazole 40 mg tablet,delayed release (DR/EC) 40 mg PO QAM RF: 0 Latuda 20 mg Tablet 20 mg PO QPM RF: 0 gabapentin 300 mg capsule 600 mg PO HS RF: 0 carvedilol 12.5 mg tablet 12.5 mg PO BID RF: 0 amlodipine 10 mg tablet 10 mg PO DAILY RF: 0 metformin 500 mg Tablet 500 mg PO BIDM RF: 0 doxepin 50 mg Capsule 50 mg PO HS RF: 0 lorazepam 0.5 mg Tablet 0.5 mg PO HS RF: 0 aspirin 81 mg Tablet,Chewable 81 mg PO DAILY RF: 0 duloxetine 60 mg Capsule,Delayed Release(Dr/Ec) 60 mg PO DAILY RF: 0 potassium chloride 20 mEq Tablet Extended Release 40 meq PO DAILY RF: 0 furosemide 20 mg tablet 20 mg PO DAILY RF: 0 atorvastatin [Lipitor] 40 mg Tablet 40 mg PO QAM RF: 0 levothyroxine 75 mcg Tablet 75 mcg PO DAILYBB RF: 0 buspirone 10 mg Tablet 10 mg PO TID RF: 0 polyethylene glycol 3350 17 gram Powder In Packet 17 g PO DAILY PRN (Reason: Constipation) RF: 0 promethazine 25 mg Tablet 25 mg PO Q6H PRN (Reason: Nausea) RF: 0 hydroxyzine HCl 25 mg tablet 25 mg PO BID PRN (Reason: Anxiety) RF: 0 tizanidine 4 mg tablet 4 mg PO BID PRN (Reason: Muscle Spasm) RF: 0 trazodone 100 mg Tablet 200 mg PO HS RF: 0 Discharge Problem: Fall Qualifiers: Encounter type: initial encounter Qualified Code(s): W19.XXXA - Unspecified fall, initial encounter DVT (deep venous thrombosis) Qualifiers: DVT location: lower extremity Affected thrombotic vein of extremity: unspecified vein of extremity Chronicity: unspecified Laterality: unspecified laterality Qualified Code(s): I82.409 - Acute embolism and thrombosis of unspecified deep veins of unspecified lower extremity
[2020-10-05 17:15] LABS: Basophils # (auto) 0.06 K/uL (0-0.2); Basophils % (auto) 0.6 %; Eosinophils # (auto) 0.51 K/uL (0-0.5); Eosinophils % (auto) 4.9 %; Hematocrit (blood only) 38.9 % (37-47); Hemoglobin 13.5 g/dL (12.0-16.0); Immature Granulocytes # (auto) 0.02 K/uL (0.00-0.02); Immature Granulocytes % (auto) 0.2 %; Lymphocytes # (auto) 2.93 K/uL (1.2-3.4); Lymphocytes % (auto) 28.4 %; Mean Corpuscular Hemoglobin 29.9 pg (25-34); Mean Corpuscular Hgb Conc 34.7 g/dL (32-36); Mean Corpuscular Volume 86.3 fL (80-100); Mean Platelet Volume 9.7 fL (7.4-10.4); Monocytes # (auto) 1.01 K/uL (0.11-0.59); Monocytes % (auto) 9.8 %; Neutrophils # (auto) 5.79 K/uL (1.4-6.5); Neutrophils % (auto) 56.1 %; Platelet Count 309 K/uL (130-400); RDW Coefficient of Variation 13.7 % (11.5-14.5); RDW Standard Deviation 43.4 fL (36.4-46.3); Red Blood Count 4.51 M/uL (4.2-5.4); White Blood Count 10.32 K/uL (4.8-10.8)
[2020-10-05 17:25] LABS: INR 1.1 (0.9-1.1); Prothrombin Time 11.1 Seconds (9.0-12.0)
[2020-10-05 17:31] LABS: Alanine Aminotransferase 26 U/L (12-78); Albumin Level 3.6 gm/dl (3.4-5.0); Aspartate Aminotransferase 19 U/L (15-37); BUN Creatinine Ratio 15.6 (10-20); Blood Urea Nitrogen 17 mg/dl (7-18); Calcium 8.2 mg/dl (8.5-10.1); Carbon Dioxide 34 mmol/L (21-32); Chloride 100 mmol/L (98-107); Creatinine Clr Calc Pharmacy 53.5 ml/min; Est GFR (African American) 59.4; Est GFR (Non-African American) 51.2; Glucose 206 mg/dl (70-99); Lipase 60 U/L (73-393); Potassium 2.7 mmol/L (3.5-5.1); Sodium 141 mmol/L (136-145)
--- NOTE | 2020-10-05 17:33 | XRay Report ---
XR chest 1V portable CLINICAL HISTORY: Atypical chest pain COMPARISON STUDY: 04/13/2020 FINDINGS: There is a left subclavian A-Port catheter present. There are postsurgical changes of midli ne sternotomy. The study is limited from a technical standpoint. There is increased right hilar densi ty which may be related to technical factors. The left lung base is obscured due to abdominal fold. T he upper lung zones are generally clear.[ IMPRESSION: 1. Moderately limited study from a technical standpoint 2. No evidence of lobar consolidation 3. Increased right hilar density possibly related to technical factors. 4. No evidence of failure ACT 112: Negative or not required by law. Electronically signed by: Jhonny Marsh M.D. 10/05/2020 5:31 PM
[2020-10-05 17:36] LABS: Albumin Globulin Ratio 0.9 (0.9-2); Alkaline Phosphatase 117 U/L (45-117); Bilirubin,Total 0.5 mg/dl (0.2-1); Globulin 3.9 gm/dl (2.5-4.0); Total Protein 7.5 gm/dl (6.4-8.2); Troponin I < 0.015 ng/ml (0-0.045)
--- NOTE | 2020-10-05 17:38 | XRay Report ---
XR hand LT min 3V routine CLINICAL HISTORY: Left hand pain status post trauma COMPARISON: None. DISCUSSION: No acute fractures or dislocations are visualized. There are moderate arthritic changes. There are chronic deformities of the second third carpal heads. IMPRESSION: 1. No acute fractures or dislocations 2. Degenerative change ACT 112: Negative or not required by law. Electronically signed by: Jhonny Marsh M.D. 10/05/2020 5:37 PM
--- NOTE | 2020-10-05 17:39 | XRay Report ---
XR hand RT min 3V routine CLINICAL HISTORY: Pain status post trauma COMPARISON: None. DISCUSSION: No acute fractures or dislocations are visualized. There are degenerative changes present . IMPRESSION: 1. Degenerative change 2. No acute fractures or dislocations identified. ACT 112: Negative or not required by law. Electronically signed by: Jhonny Marsh M.D. 10/05/2020 5:38 PM
[2020-10-05] MEDS ORDERED: POTASSIUM CHLORIDE 10 MEQ TABCR PO STA (18:11)
--- NOTE | 2020-10-05 18:15 | CT Scan Report ---
CT head/brain wo con CLINICAL HISTORY: Head pain status post trauma COMPARISON STUDY: 04/11/2020 TECHNIQUE: Axial CT of the brain is performed from the vertex to the skull base. IV contrast was not administered for this examination. A dose lowering technique was utilized adhering to the principles of ALARA. CT DOSE: 912.23 mGycm FINDINGS: No intra or extra-axial mass lesions are visualized. There is no CT evidence of acute cortical infarc tion. There is no evidence of midline shift. There is no acute hemorrhage. No calvarial fractures ar e visualized. There is no evidence of pathologic ventricular dilatation. There is no evidence of acute sinusitis IMPRESSION: No acute intracranial findings ACT 112: Negative or not required by law. Electronically signed by: Jhonny Marsh M.D. 10/05/2020 6:14 PM
--- NOTE | 2020-10-05 18:18 | CT Scan Report ---
CT OF THE CERVICAL SPINE CLINICAL HISTORY: Neck pain status post trauma COMPARISON STUDY: January 30, 2020 CT DOSE: 566.27 mGycm TECHNIQUE: CT scan of the cervical spine was performed from the skull base to the thoracic inlet. Latha ges are reviewed in the axial, sagittal, and coronal planes. IV contrast was not administered for thi s examination. A dose lowering technique was utilized adhering to the principles of ALARA. FINDINGS: The visualized portions of the lung apices reveal no evidence of pneumothorax. There is apical emphys adelaida The prevertebral soft tissues are normal. No fractures or subluxations are visualized. There are multilevel degenerative changes IMPRESSION: No evidence of acute fracture or traumatic subluxation. ACT 112: Negative or not required by law. Electronically signed by: Jhonny Marsh M.D. 10/05/2020 6:17 PM
[2020-10-05] MEDS ORDERED: ONDANSETRON INJ 2 MG/ML 2 ML VIAL IV STA (19:19)
[2020-10-05] MEDS ORDERED: KETOROLAC TROMETHAMINE 15 MG/ML VIAL IV ONE (19:19)
[2020-10-05] MEDS ORDERED: OPTIRAY 320 125ml IV ONE (19:43)
[2020-10-05] MEDS ORDERED: ALBUT/IPRATROP 3MG/0.5MG NEB 3 ML VIAL NEB STA (20:03)
--- NOTE | 2020-10-05 20:04 | CT Scan Report ---
CT ANGIOGRAM OF THE CHEST CLINICAL HISTORY: Shortness of breath COMPARISON STUDY: Chest x-ray dated 10/05/2020 TECHNIQUE: Following the IV administration of 118 mL of Optiray-320, CT angiogram of the thorax was p erformed from the thoracic inlet to the lung bases utilizing the pulmonary embolus protocol. Images a re reviewed in the axial, sagittal, and coronal planes. IV contrast was administered without complica tion. MIP imaging was performed. A dose lowering technique was utilized adhering to the principles o f ALARA. CT DOSE: 573.73 mGy.cm FINDINGS: There is mild hepatic steatosis There are minimally enlarged mediastinal lymph nodes including a 12 mm subcarinal lymph node. The ascending thoracic aorta measures 37 mm. There are coronary artery calcifications. There were no pulmonary artery filling defects to indicate acute pulmonary embolism. No pleural effusions are visualized. There is no lobar consolidation. There are dependent atelectatic changes. There is a persistent 1 cm pleural-based opacity within the left lower lobe, likely representing focal atelectasis. There are sc attered granulomatous calcifications. There are postsurgical changes involving the spine and left ribs.. IMPRESSION: 1. Minimally enlarged mediastinal lymph nodes 2. No evidence of acute pulmonary embolism 3. Basilar atelectasis 4. 1 cm pleural-based opacity within the left lower lobe likely representing focal atelectasis 5. Postsurgical changes involving the spine and left ribs. ACT 112: Negative or not required by law. Electronically signed by: Jhonny Marsh M.D. 10/05/2020 8:03 PM
[2020-10-05 20:15] LABS: Magnesium 1.7 mg/dl (1.8-2.4)
--- NOTE | 2020-10-05 21:02 | Ultrasound Report ---
US venous doppler LE BI CLINICAL HISTORY: Hypoxia. COMPARISON STUDY: 04/04/2020 FINDINGS: Grayscale, color-flow, and spectral Doppler waveform analysis was performed. On the right, no thrombus was visualized in the common femoral superficial femoral or popliteal veins . There is a short segment of thrombosis within one of the paired posterior tibial veins. No thrombus is visualized within the anterior tibial or peroneal veins on the right. The left, there is no intraluminal thrombus, femoral superficial femoral popliteal and proximal trifu rcation veins of the calf. IMPRESSION: 1. Right peroneal vein DVT. No evidence of [id number] thrombus 2. No evidence of left lower extremity DVT. ACT 112: Negative or not required by law. Electronically signed by: Jhonny Marsh M.D. 10/05/2020 9:00 PM
[2020-10-05] MEDS ORDERED: POTASSIUM CHLORIDE CRTAB 20 MEQ TABCR PO STA (21:21)
--- NOTE | 2020-10-05 21:22 | History & Physical Report ---
Date of Service October 05, 2020 Assessment & Plan (1) Hypoxia: Acute hypoxemic respiratory failure hx HOLLY, CPAP intolerance, probable OHS given hypercapnia on ABGs from prior admissions. Possibly from atelectasis, poor inspiratory effort from mild sedation from home neuropsychotropic meds/polypharmacy Patient currently more awake. Recurrent DVT Patient refused anticoagulation following documentation of DVT during January 2020 confinement hx CAD sp stenting Chronic diastolic heart failure (EF 55 to 59%, TTE 2019), euvolemic (although patient complaining of fluid retention. HTN, stable hyperlipidemia on statin Rx PTSD/mood disorder hx post polio syndrome/scoliosis as per records chronic pain, at baseline, off fentanyl patch following inpatient incident documenting drug misuse 6 months ago DM2 on oral medications, well-controlled as of recent hemoglobin A1c of 25 March 2020 Hypokalemia secondary to home diuretic Rx Medical telemetry Supplemental O2 Baseline ABG IV Heparin for now for recurrent DVT Defer discussion regarding oral anticoagulant choice between AM provider and tim nickerson. Fluid restriction, resume home diuretic in a.m. if creatinine stable post IV contrast administration. Basal insulin, ISS BG goal [id number], carb count coverage PT OT eval Social service RE discharge planning (Current living situation needs to be assessed if patient to be discharged home on oral anticoagulation given recurrent falls/rolling of the bed incidents likely from oversedation secondary to polypharmacy.) DVT prophylaxis. IV heparin Full code Text document was generated using [employer] voice recognition software. It may contain grammatical or spelling errors. Kindly contact undersigned for clarification of any documentation item in question. History of Present Illness Chief Complaint: Fall from bed Primary Care Provider: Charanjit Spann MD History obtained from patient and records. Medical history significant for chronic diastolic heart failure (EF 55 to 59%, TTE 2019), HOLLY CPAP noncompliance, CAD sp stenting, HTN, hyperlipidemia, PTSD/mood disorder, post polio syndrome/scoliosis as per records, chronic pain, hx drug misuse as per records, DM2 on oral medications, hx DVT (patient refused anticoagulation), cyclic vomiting syndrome as per records. Patient admitted January 2020 for hypoxemic respiratory failure. Found to have age-indeterminate DVT on ultrasound of the lower extremities on PE work-up. Patient refused anticoagulation at time of confinement as per documentation. Last confinement April 2020 for dizziness. During confinement, hong clark called for narcotic overdose. Patient found to have her Fentanyl patch in her mouth. Patient subsequently weaned off from her home Fentanyl to tramadol as needed. Patient fell out of bed while she was sleeping today. Has happened before. Complaining of left hand pain and achy headache, neck pain symptoms. Headache slightly worse with motion. Bilateral achy hand pain. Patient denies chest pain, S OB, cough symptoms. On and off swelling of the hands and legs with weight up and down as per patient At the ER, patient noted to have episodic sleepiness as per ER provider. 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 Allergies Allergy/AdvReac Type Severity Reaction Status Date / Time latex Allergy Intermediate Rash Verified 10/05/20 21:30 nickel Allergy Intermediate SEVERE Verified 10/05/20 21:30 DERMATITIS NSAIDS (Non-Steroidal Allergy Intermediate HX OF Verified 10/05/20 21:30 Anti-Inflamma BLEEDING ULCERS-TO AVOID adhesive tape AdvReac Intermediate SKIN Verified 10/05/20 21:30 IRRITATION aspirin AdvReac Intermediate bleeding Verified 10/05/20 21:30 ulcers Home Medications Medication Instructions Recorded Confirmed Type atorvastatin [Lipitor] 40 mg PO QAM 12/13/18 10/05/20 History buspirone 10 mg PO TID 12/13/18 10/05/20 History levothyroxine 75 mcg PO DAILYBB 12/13/18 10/05/20 History polyethylene glycol 3350 17 g PO DAILY PRN 05/12/19 10/05/20 History promethazine 25 mg PO Q6H PRN 05/12/19 10/05/20 History Calcium 600 + D(3) 1 cap PO BID 05/23/19 10/05/20 History Ocuvite Adult 50 Plus 1 cap PO QAM 05/23/19 10/05/20 History epinephrine 0.3 mg IM Q3H PRN 05/23/19 10/05/20 History nitroglycerin [Nitrostat] 0.3 mg SUBLINGUAL UD PRN 05/23/19 10/05/20 History olopatadine 1 drp OPB QAM 05/23/19 10/05/20 History pantoprazole 40 mg PO QAM 07/03/19 10/05/20 History Latuda 20 mg PO QPM 08/04/19 10/05/20 History gabapentin 600 mg PO HS 01/30/20 10/05/20 History amlodipine 10 mg PO DAILY 02/27/20 10/05/20 History carvedilol 12.5 mg PO BID 02/27/20 10/05/20 History hydroxyzine HCl 25 mg PO BID PRN 04/03/20 10/05/20 History tizanidine 4 mg PO BID PRN 04/03/20 10/05/20 History trazodone 200 mg PO HS 04/03/20 10/05/20 History aspirin 81 mg PO DAILY 10/05/20 10/05/20 History doxepin 50 mg PO HS 10/05/20 10/05/20 History duloxetine 60 mg PO DAILY 10/05/20 10/05/20 History furosemide 20 mg PO DAILY 10/05/20 10/05/20 History lorazepam 0.5 mg PO HS 10/05/20 10/05/20 History metformin 500 mg PO BIDM 10/05/20 10/05/20 History potassium chloride 40 meq PO DAILY 10/05/20 10/05/20 History Past Med/Surg History Medical History (Updated 10/05/20 @ 21:49 by Krystian Molina DO) Anemia HX OF Anxiety CAD (coronary artery disease) 2016-BMS to LAD Cervical spondylolysis Chronic heart failure with preserved ejection fraction (HFpEF) Chronic pain Colitis Cyclical vomiting Deep vein thrombosis 4 YEARS AGO Degenerative disc disease Depression Dyslipidemia GI bleed history of. declining anticoagulation due to hx of GIB. Hyperlipidemia Hypertension Hypothyroidism Migraine Mood disorder Myocardial Infarction 2 YEARS AGO Osteoarthritis Post traumatic stress disorder Pulmonary embolism 2 YEARS OLD (UNSURE OF REASON) Restless leg syndrome Scoliosis Surgical History Fusion of spine LUMBAR H/O ovarian cystectomy H/O repair of right rotator cuff H/O spinal fusion "1st surgery in [place], then multiple surgeries Dr. Catherine at [facility] [place] History of adenoidectomy History of anesthesia reaction WOKE UP IN MIDDLE OF SPINAL SURGERIES History of appendectomy History of cataract surgery LEFT AND RIGHT History of heart artery stent 2017- STENT PLACED AT [facility] (DR. DAVILA) History of laminectomy LUMBAR History of tonsillectomy History of vascular access device PORT LEFT UPPER CHEST-IN PLACE Ovarian cyst X 2 Family History Mother Hypertension Father Hypertension Social History Smoking Status: Never smoker Second Hand Exposure: No; Hx Alcohol Use: No Hx Substance Use: No Preferred Language: Trinidadian Communication Ability: Effective Teacher Of Family And Consumer Science Required: No Beliefs That Will Affect Care: None marital status: Single Current Living Situation: Alone current occupational status: retired Feels Safe at Home: Yes Assistive Devices: Oxygen - Continuous and Walker Review of Systems Review of Systems: As per HPI, all 10 systems reviewed, all other ROS negative Physical Exam Physical Exam: GENERAL: slightly uncomfortable, obese, no respiratory distress SKIN: Normal color, warm HEENT: Johnson palpebral conjunctivae, no ptosis, dry buccal mucosa, nasal cannula in place NECK : Supple, short neck, no tenderness CHEST : Decreased breath sounds, no tenderness HEART : RRR, no obvious murmurs ABDOMEN: Some distention, nontender EXTREMITIES : Minimal LE swelling/RLE tenderness, no other conspicuous deformities noted NEUROLOGIC : Coherent, no facial asymmetry, no other gross focality Results & Data Results & Data ([facility]) Vital Signs (Past 12 Hours) Vital Signs Temp Pulse Pulse Resp BP BP Pulse Ox 10/05/20 21:20 83 18 94 10/05/20 19:00 87 21 118/64 93 10/05/20 18:35 95 H 18 119/77 93 10/05/20 17:51 99 H 99 H 18 127/76 96 10/05/20 16:29 37.1 C 106 H 20 105/87 88 L Laboratory Results Laboratory Results WBC 10.32 K/uL (4.8-10.8) 10/05/20 17:06 RBC 4.51 M/uL (4.2-5.4) 10/05/20 17:06 Hgb 13.5 g/dL (12.0-16.0) 10/05/20 17:06 Hct 38.9 % (37-47) 10/05/20 17:06 MCV 86.3 fL (80-100) 10/05/20 17:06 MCH 29.9 pg (25-34) 10/05/20 17:06 MCHC 34.7 g/dL (32-36) 10/05/20 17:06 RDW Std Deviation 43.4 fL (36.4-46.3) 10/05/20 17:06 RDW Coeff of [place] 13.7 % (11.5-14.5) 10/05/20 17:06 Plt Count 309 K/uL (130-400) 10/05/20 17:06 MPV 9.7 fL (7.4-10.4) 10/05/20 17:06 Immature Gran % (Auto) 0.2 % 10/05/20 17:06 Neut % (Auto) 56.1 % 10/05/20 17:06 Lymph % (Auto) 28.4 % 10/05/20 17:06 Cooper % (Auto) 9.8 % 10/05/20 17:06 Eos % (Auto) 4.9 % 10/05/20 17:06 Baso % (Auto) 0.6 % 10/05/20 17:06 Neut # (Auto) 5.79 K/uL (1.4-6.5) 10/05/20 17:06 Lymph # (Auto) 2.93 K/uL (1.2-3.4) 10/05/20 17:06 Cooper # (Auto) 1.01 K/uL (0.11-0.59) H 10/05/20 17:06 Eos # (Auto) 0.51 K/uL (0-0.5) H 10/05/20 17:06 Baso # (Auto) 0.06 K/uL (0-0.2) 10/05/20 17:06 Immature Gran # (Auto) 0.02 K/uL (0.00-0.02) 10/05/20 17:06 PT 11.1 Seconds (9.0-12.0) 10/05/20 17:06 INR 1.1 (0.9-1.1) 10/05/20 17:06 APTT 28.0 Seconds (21.0-31.0) 10/05/20 17:06 PTT Ratio 1.0 10/05/20 17:06 Sodium 141 mmol/L (136-145) 10/05/20 17:06 Potassium 2.7 mmol/L (3.5-5.1) L 10/05/20 17:06 Chloride 100 mmol/L (98-107) 10/05/20 17:06 Carbon Dioxide 34 mmol/L (21-32) H 10/05/20 17:06 Anion Gap 7.0 (3-11) 10/05/20 17:06 BUN 17 mg/dl (7-18) 10/05/20 17:06 Creatinine 1.08 mg/dl (0.6-1.2) 10/05/20 17:06 Est Cr Clr Drug Dosing 53.5 ml/min 10/05/20 17:06 Est GFR ( Amer) 59.4 10/05/20 17:06 Est GFR (Non-Af Amer) 51.2 10/05/20 17:06 BUN/Creatinine Ratio 15.6 (10-20) 10/05/20 17:06 Glucose 206 mg/dl (70-99) H 10/05/20 17:06 Calcium 8.2 mg/dl (8.5-10.1) L 10/05/20 17:06 Magnesium 1.7 mg/dl (1.8-2.4) L 10/05/20 17:06 Total Bilirubin 0.5 mg/dl (0.2-1) 10/05/20 17:06 AST 19 U/L (15-37) 10/05/20 17:06 ALT 26 U/L (12-78) 10/05/20 17:06 Alkaline Phosphatase 117 U/L (45-117) 10/05/20 17:06 Troponin I < 0.015 ng/ml (0-0.045) 10/05/20 17:06 Total Protein 7.5 gm/dl (6.4-8.2) 10/05/20 17:06 Albumin 3.6 gm/dl (3.4-5.0) 10/05/20 17:06 Globulin 3.9 gm/dl (2.5-4.0) 10/05/20 17:06 Albumin/Globulin Ratio 0.9 (0.9-2) 10/05/20 17:06 Lipase 60 U/L (73-393) L 10/05/20 17:06 Ethyl Alcohol mg/dL < 3.0 mg/dl (0-3) 10/05/20 17:31 COVID-19 Eval Order Covid19 [facility]Now [facility] 10/05/20 18:41 SARS-CoV-2, RNA, NAAT NEGATIVE (NEGATIVE) 10/05/20 18:[address] head: No acute intracranial findings CT cervical spine: No evidence of acute fracture or traumatic subluxation. CT chest: 1. Minimally enlarged mediastinal lymph nodes 2. No evidence of acute pulmonary embolism 3. Basilar atelectasis 4. 1 cm pleural-based opacity within the left lower lobe likely representing focal atelectasis 5. Postsurgical changes involving the spine and left ribs. LE venous Dopplers: 1. Right peroneal vein DVT. No evidence of dtycj-wzl-crrf thrombus 2. No evidence of left lower extremity DVT. Bilateral hand x-rays: 1. No acute fractures or dislocations 2. Degenerative change EKG as per my interpretation : Rate 105, sinus tachycardia, LAD, LAFB, inferior infarct, T wave abnormalities inferior and anterolateral leads Code Status & VTE Plan VTE Prophylaxis Plan VTE Prophylaxis will be ordered: Yes
[2020-10-05 22:05] LABS: Base Excess ABG 8.2 mEq/L (-9-1.8); HCO3 ABG 34 mmol/L (19-24); Oxygen Saturation ABG 94.6 % (90-95); PCO2 ABG 50 mmHg (35-46); PO2 ABG 73 mmHg (80-95); pH ABG 7.45 (7.35-7.45)
[2020-10-05 22:05] LABS: NT Pro B Type Natriuretic Pept 51 pg/ml (0-900)
[2020-10-05 22:07] LABS: Allen Test Pos (Pos)
[2020-10-05] MEDS ORDERED: Heparin IV Adult Wt-Based Standard *NO* Bolus Protocol STA (22:07)
[2020-10-05] MEDS ORDERED: GLUCOSE 40% GEL 15 GM TUBE PO PRN (22:44)
[2020-10-05] MEDS ORDERED: GLUCOSE 10 TABS/TUBE PO PRN (22:44)
[2020-10-05] MEDS ORDERED: CARBOHYDRATES FOR HYPOGLYCEMIA PO PRN (22:44)
[2020-10-05] MEDS ORDERED: MAGNESIUM SULFATE / D5W 1 GM/100 ML BAG IV ONE (22:44)
[2020-10-05] MEDS ORDERED: DEXTROSE 50% 50 ML SYRINGE IV PRN (22:44)
[2020-10-05] MEDS ORDERED: tiZANidine HCL 4 MG TABLET PO PRN (22:44)
[2020-10-05] MEDS ORDERED: GLUCAGON FOR INJ 1 MG VIAL SQ PRN (22:44)
[2020-10-05] MEDS ORDERED: POLYETHYLENE (MIRALAX) 17 GM PACK PO PRN (22:44)
[2020-10-05] MEDS ORDERED: PROMETHAZINE HCL 12.5 MG in SODIUM CHLORIDE 0.9% 50 ML IV PRN (22:44)
[2020-10-05] MEDS: INSULIN ASPART 100 UNITS/ML 3 ML PEN SC SCH (23:51)
[2020-10-05] MEDS: carvediloL 12.5 MG TAB PO SCH (23:51)
[2020-10-05] MEDS: HEPARIN SODIUM/DEXTROSE 25,000 UNITS/500 ML BAG IV SCH (23:52)
[2020-10-06] MEDS ORDERED: LORazepam 0.5 MG TAB PO PRN (00:49)
[2020-10-06] MEDS: LURASIDONE HCL 40 MG TAB PO SCH ×2 (01:38→20:45)
[2020-10-06] MEDS: GABAPENTIN 300 MG CAP PO SCH ×2 (01:39→20:45)
[2020-10-06] MEDS: DOXEPIN HCL 50 MG CAPSULE PO SCH ×2 (01:40→20:46)
[2020-10-06] MEDS: traZODone HCL 100 MG TAB PO SCH ×2 (01:40→20:45)
[2020-10-06] MEDS: ALBUMIN 25% 12.5 GM/50 ML VIAL IV SCH ×2 (03:42→04:20)
[2020-10-06 03:53] LABS: Appearance Urine Clear (Clear); Bilirubin Urine Negative (Negative); Blood Urine Negative (Negative); Color Urine Yellow; Glucose Urine UA Negative (Negative); Ketones Urine Negative (Negative); Leukocyte Esterase Urine Negative (Negative); Nitrite Urine Negative (Negative); Protein Urine Negative (Negative); Specific Gravity Urine > 1.045 (1.000-1.030); Urobilinogen Urine Negative (Negative); pH Urine 5.5 (4.5-7.5)
[2020-10-06 04:20] LABS: Amphetamines+Metham, Urine Neg (Neg); Barbiturates, Urine Neg (Neg); Benzodiazepine, Urine Neg (Neg); Cocaine, Urine Neg (Neg); MDMA (Ecstacy), Urine Pos (Neg); Methadone, Urine Neg (Neg); Opiate, Urine Neg (Neg); Phencyclidine, Urine Neg (Neg)
[2020-10-06 06:02] LABS: Estimated Average Glucose 163 mg/dl; Hemoglobin A1C 7.3 % (4.5-5.6)
[2020-10-06 06:10] LABS: Basophils # (auto) 0.03 K/uL (0-0.2); Basophils % (auto) 0.3 %; Eosinophils # (auto) 0.53 K/uL (0-0.5); Eosinophils % (auto) 5.7 %; Hematocrit (blood only) 35.7 % (37-47); Hemoglobin 12.2 g/dL (12.0-16.0); Immature Granulocytes # (auto) 0.01 K/uL (0.00-0.02); Immature Granulocytes % (auto) 0.1 %; Lymphocytes # (auto) 4.03 K/uL (1.2-3.4); Lymphocytes % (auto) 43.4 %; Mean Corpuscular Hgb Conc 34.2 g/dL (32-36); Mean Corpuscular Volume 87.7 fL (80-100); Mean Platelet Volume 9.7 fL (7.4-10.4); Monocytes # (auto) 0.66 K/uL (0.11-0.59); Monocytes % (auto) 7.1 %; Neutrophils # (auto) 4.03 K/uL (1.4-6.5); Neutrophils % (auto) 43.4 %; Platelet Count 290 K/uL (130-400); RDW Coefficient of Variation 13.9 % (11.5-14.5); RDW Standard Deviation 44.2 fL (36.4-46.3); Red Blood Count 4.07 M/uL (4.2-5.4); White Blood Count 9.29 K/uL (4.8-10.8)
[2020-10-06] MEDS: LEVOTHYROXINE SODIUM 75 MCG TABLET PO SCH (06:18)
[2020-10-06 06:29] LABS: INR 1.1 (0.9-1.1); Partial Thromboplastin Ratio 1.7; Prothrombin Time 11.1 Seconds (9.0-12.0)
[2020-10-06 06:44] LABS: BUN Creatinine Ratio 17.7 (10-20); Calcium 8.2 mg/dl (8.5-10.1); Est GFR (African American) 82.9; Est GFR (Non-African American) 71.5; Magnesium 2.1 mg/dl (1.8-2.4); Potassium 2.7 mmol/L (3.5-5.1)
[2020-10-06] MEDS: INSULIN GLARGINE SOLOSTAR 100 UNITS/ML 3 ML PEN SC SCH (10:31)
[2020-10-06] MEDS: OLOPATADINE~ORDER AWAITING ACTION SCH ×2 (10:31→16:22)
[2020-10-06] MEDS: FUROSEMIDE 20 MG TAB PO SCH (10:31)
[2020-10-06] MEDS: POTASSIUM CHLORIDE / WTR 10 MEQ/100 ML PLCT IV SCH ×2 (10:31→10:41)
[2020-10-06] MEDS: INSULIN ASPART 100 UNITS/ML 3 ML PEN SC SCH ×4 (10:31→21:02)
[2020-10-06] MEDS: ASPIRIN 81 MG ECTAB PO SCH (10:32)
[2020-10-06] MEDS: DULoxetine HCL 60 MG CAP PO SCH (10:32)
[2020-10-06] MEDS: CALCIUM 600MG + VIT D 400 IU TAB PO SCH ×2 (10:32→20:45)
[2020-10-06] MEDS: carvediloL 12.5 MG TAB PO SCH ×2 (10:33→20:45)
[2020-10-06] MEDS: PANTOprazole 40 MG TAB PO SCH (10:33)
[2020-10-06] MEDS: amLODIPine BESYLATE 5 MG TAB PO SCH (10:33)
[2020-10-06] MEDS: ATORVASTATIN 40 MG TAB PO SCH (10:33)
[2020-10-06] MEDS: CEROVITE ADV FORMULA TAB PO SCH (10:34)
[2020-10-06] MEDS: POTASSIUM CHLORIDE CRTAB 20 MEQ TABCR PO SCH (10:35)
[2020-10-06] MEDS: busPIRone 5 MG TAB PO SCH ×4 (10:37→20:44)
--- NOTE | 2020-10-06 10:52 | Electrocardiogram Report ---
Test Reason : Blood Pressure : / mmHG Vent. Rate : 102 BPM Atrial Rate : 102 BPM P-R Int : 184 ms QRS Dur : 082 ms QT Int : 368 ms P-R-T Axes : 037 -28 056 degrees QTc Int : 479 ms Poor data quality, interpretation may be adversely affected Sinus tachycardia Low voltage QRS possible Inferior infarct (cited on or before 18-JUN-2019) Cannot rule out Anterior infarct (cited on or before 18-JUN-2019) Abnormal ECG When compared with ECG of 13-APR-2020 13:36, ST now depressed in Lateral leads Confirmed by Dennis Diana ([id number]) on 10/06/2020 10:52:00 AM Referred By: REFERRED SELF Confirmed By:Kuldip Diana
[2020-10-06] MEDS ORDERED: POTASSIUM CHLORIDE CRTAB 20 MEQ TABCR PO ONE (16:00)
[2020-10-06] MEDS: ACETAMINOPHEN 325 MG TAB PO PRN (17:05)
[2020-10-06] MEDS: HEPARIN SODIUM/DEXTROSE 25,000 UNITS/500 ML BAG IV SCH (17:08)
--- NOTE | 2020-10-06 17:12 | Hospitalist Progress Note ---
Date of Service October 06, 2020 Assessment & Plan (1) Hypoxia: Acute on Chronic hypoxic respiratory failure Acute Metabolic/Toxic Encephalopathy Uses 3 L of oxygen supplemental oxygen at bedtime--as per patient Likely multifactorial--H/O HOLLY, Possible OHS, Atelectasis, polypharmacy, ma rijuana use --CTA:Minimally enlarged mediastinal lymph nodes. No evidence of acute pulmonary embolism. Basilar atelectasis. 1 cm pleural-based opacity within the left lower lobe likely representing focal atelectasis. Postsurgical changes involving the spine and left ribs. -CT Head:No acute intracranial findings -H/O CPAP Intolerance -Hold sedating meds until more awake and alert -continue supplemental oxygen Recurrent DVT Venous Doppler:Right peroneal vein DVT. No evidence of nonlh-llq-nfhg thrombus. No evidence of left lower extremity DVT. Previously refused anticoagulation for DVT in the past as per documentation:January 2020 H/O BRBPR in the past and Colitis on CT scan Out patient Colonoscopy, Endoscopy not contributory in the past Currently interested in anticoagulation Denies recurrent falls Continue IV heparin Monitor CBC, and for bleeding issues Will transition to oral anticoagulation if no bleeding issues Unwitnessed Fall Fell out of bed during sleep ? Polypharmacy/marijuana use contributed Imaging studies reviewed Fall precautions PT/OT Hypokalemia Hypomagnesemia On Chronic potassium supplements Diuretics contributing Replace electrolytes as needed H/O CAD S/P Stent Chronic diastolic heart failure Continue home medications No signs of decompensation Hypertension Continue amlodipine, carvedilol Monitor Hyperlipidemia on statin PTSD/mood disorder Chronic Pain Off fentanyl patch from prior admission ? Concern for Narcotic abuse Resume home medications as able DM II HbA1C:7.3 Hold PO meds Utilize Insulin therapy while hospitalized Monitor BGs Hypothyroidism Continue levothyroxine DVT Px: on IV Heparin Code Status Full Code Disposition PT/OT prior to discharge Case management o help with discharge planning Admission and Anticipated Discharge Date Admission Date: October 05, 2020 Subjective Patient is seen and examined at bedside Very sleepy, lethargic this morning but later more alert and awake States having frontal headache, right leg pain and chronic back pain Admits to using marijuana but states using it 1 month ago Reports using oxygen 3 L at bedtime usually Denies chest pain, dizziness, nausea, abdominal pain Offers no other complaints Review of Systems Review of Systems: All systems reviewed & are unremarkable except as noted in HPI & below Physical Exam Physical Exam: Physical Exam: Vitals signs as noted above General Appearance:Obese, no apparent distress Head: normocephalic, Atraumatic Eyes: normal inspection, EOMI Neck: supple, Trachea midline Respiratory/Chest: Normal breath sounds, CTA Cardiovascular: S1, S2, No murmur Abdomen/GI:Soft, Non tender, Bowel sounds present Extremities/Musculoskelatal:normal inspection, 1+ B/L LE edema Neurologic/Psych:grossly no focal neurological deficits Skin: normal color, warm Results & Data Results & Data ([facility]) Vital Signs (Past 12 Hours) Vital Signs Temp Pulse Pulse Resp BP BP Pulse Ox 10/06/20 16:52 67 10/06/20 15:53 36.8 C 73 20 122/77 91 10/06/20 11:33 36.9 C 71 18 100/58 L 90 10/06/20 09:00 75 10/06/20 07:20 36.7 C 73 18 117/64 90 Laboratory Results Short CBC 10/05/20 10/06/20 Range/Units 17:06 05:39 WBC 10.32 9.29 (4.8-10.8) K/uL Hgb 13.5 12.2 (12.0-16.0) g/dL Hct 38.9 35.7 L (37-47) % Plt Count 309 290 (130-400) K/uL BMP 10/05/20 10/06/20 17:06 05:39 Sodium 141 141 Potassium 2.7 L 2.7 L Chloride 100 100 Carbon Dioxide 34 H 34 H BUN 17 15 Creatinine 1.08 0.82 Glucose 206 H 134 H Calcium 8.2 L 8.2 L Cardiac Enzymes 10/05/20 Range/Units 17:06 Troponin I < 0.015 (0-0.045) ng/ml Liver Function 10/05/20 Range/Units 17:06 Total Bilirubin 0.5 (0.2-1) mg/dl AST 19 (15-37) U/L ALT 26 (12-78) U/L Alkaline Phosphatase 117 (45-117) U/L Albumin 3.6 (3.4-5.0) gm/dl Urine 10/06/20 Range/Units 03:45 Urine Color Yellow Urine Appearance Clear (Clear) Urine pH 5.5 (4.5-7.5) Ur Specific [place] > 1.045 H (1.000-1.030) Urine Protein Negative (Negative) Urine Glucose (UA) Negative (Negative)
[2020-10-06] MEDS ORDERED: GABAPENTIN 300 MG CAP PO SCH (21:00)
[2020-10-06] MEDS ORDERED: DOXEPIN HCL 50 MG CAPSULE PO SCH (21:00)
[2020-10-06] MEDS ORDERED: traZODone HCL 100 MG TAB PO SCH (21:00)
[2020-10-06] MEDS ORDERED: LORazepam 0.5 MG TAB PO SCH (21:00)
[2020-10-06] MEDS ORDERED: LURASIDONE HCL 40 MG TAB PO SCH (21:00)
[2020-10-06] MEDS ORDERED: HEPARIN 100 UNIT/ML 5ML FLUSH FLUSH PRN (22:50)
[2020-10-07] MEDS: OLOPATADINE~ORDER AWAITING ACTION SCH ×3 (00:51→15:06)
[2020-10-07] MEDS: ACETAMINOPHEN 325 MG TAB PO PRN (01:24)
[2020-10-07] MEDS: LEVOTHYROXINE SODIUM 75 MCG TABLET PO SCH (06:20)
[2020-10-07 07:01] LABS: Basophils # (auto) 0.04 K/uL (0-0.2); Basophils % (auto) 0.5 %; Eosinophils % (auto) 7.9 %; Hematocrit (blood only) 36.6 % (37-47); Hemoglobin 12.2 g/dL (12.0-16.0); Immature Granulocytes # (auto) 0.01 K/uL (0.00-0.02); Immature Granulocytes % (auto) 0.1 %; Lymphocytes # (auto) 3.22 K/uL (1.2-3.4); Lymphocytes % (auto) 42.2 %; Mean Corpuscular Hemoglobin 29.7 pg (25-34); Mean Corpuscular Hgb Conc 33.3 g/dL (32-36); Mean Corpuscular Volume 89.1 fL (80-100); Mean Platelet Volume 9.8 fL (7.4-10.4); Monocytes # (auto) 0.65 K/uL (0.11-0.59); Monocytes % (auto) 8.5 %; Neutrophils # (auto) 3.11 K/uL (1.4-6.5); Neutrophils % (auto) 40.8 %; Platelet Count 258 K/uL (130-400); RDW Standard Deviation 45.4 fL (36.4-46.3); Red Blood Count 4.11 M/uL (4.2-5.4); White Blood Count 7.63 K/uL (4.8-10.8)
[2020-10-07 07:26] LABS: INR 1.1 (0.9-1.1); Partial Thromboplastin Ratio 2.2; Prothrombin Time 11.5 Seconds (9.0-12.0)
[2020-10-07 07:53] LABS: BUN Creatinine Ratio 14.5 (10-20); Calcium 8.8 mg/dl (8.5-10.1); Creatinine Clr Calc Pharmacy 70.7 ml/min; Est GFR (African American) 85.4; Est GFR (Non-African American) 73.7; Magnesium 2.2 mg/dl (1.8-2.4); Potassium 3.5 mmol/L (3.5-5.1)
[2020-10-07 08:36] LABS: Partial Thromboplastin Time 62.4 Seconds (21.0-31.0)
[2020-10-07] MEDS: INSULIN ASPART 100 UNITS/ML 3 ML PEN SC SCH ×4 (09:45→20:29)
[2020-10-07] MEDS: INSULIN GLARGINE SOLOSTAR 100 UNITS/ML 3 ML PEN SC SCH (09:45)
[2020-10-07] MEDS: PANTOprazole 40 MG TAB PO SCH (09:47)
[2020-10-07] MEDS: CEROVITE ADV FORMULA TAB PO SCH (09:47)
[2020-10-07] MEDS: carvediloL 12.5 MG TAB PO SCH ×2 (09:47→20:23)
[2020-10-07] MEDS: amLODIPine BESYLATE 5 MG TAB PO SCH (09:47)
[2020-10-07] MEDS: busPIRone 5 MG TAB PO SCH ×3 (09:47→20:23)
[2020-10-07] MEDS: ATORVASTATIN 40 MG TAB PO SCH (09:47)
[2020-10-07] MEDS: ASPIRIN 81 MG ECTAB PO SCH (09:47)
[2020-10-07] MEDS: POTASSIUM CHLORIDE CRTAB 20 MEQ TABCR PO SCH (09:47)
[2020-10-07] MEDS: FUROSEMIDE 20 MG TAB PO SCH (09:47)
[2020-10-07] MEDS: CALCIUM 600MG + VIT D 400 IU TAB PO SCH ×2 (09:47→20:23)
[2020-10-07] MEDS: DULoxetine HCL 60 MG CAP PO SCH (10:02)
[2020-10-07] MEDS ORDERED: BUTALBITAL/ACETAMIN/CAFFEINE TAB PO PRN (10:43)
[2020-10-07] MEDS: traMADol HCL 50 MG TABLET PO PRN ×2 (11:41→21:44)
[2020-10-07] MEDS: HEPARIN SODIUM/DEXTROSE 25,000 UNITS/500 ML BAG IV SCH (12:05)
--- NOTE | 2020-10-07 14:40 | Hospitalist Progress Note ---
Date of Service October 07, 2020 Assessment & Plan (1) Hypoxia: Acute on Chronic hypoxic respiratory failure Acute Metabolic/Toxic Encephalopathy Uses 3 L of oxygen supplemental oxygen at bedtime--as per patient Likely multifactorial--H/O HOLLY, Possible OHS, Atelectasis, polypharmacy, ma rijuana use --CTA:Minimally enlarged mediastinal lymph nodes. No evidence of acute pulmonary embolism. Basilar atelectasis. 1 cm pleural-based opacity within the left lower lobe likely representing focal atelectasis. Postsurgical changes involving the spine and left ribs. -CT Head:No acute intracranial findings -H/O CPAP Intolerance -Denies overdosing on home meds -Resumed home meds-- monitor for excessive sedation -continue supplemental oxygen Recurrent DVT Venous Doppler:Right peroneal vein DVT. No evidence of qvbzx-gxe-eodp thrombus. No evidence of left lower extremity DVT. Previously refused anticoagulation for DVT in the past as per documentation:January 2020 H/O BRBPR in the past and Colitis on CT scan Out patient Colonoscopy, Endoscopy not contributory in the past Currently interested in anticoagulation Denies recurrent falls Continue IV heparin Monitor CBC, and for bleeding issues Will transition to oral anticoagulation if no bleeding issues--patient prefers Eliquis No bleeding issues currently Unwitnessed Fall Fell out of bed during sleep ? Polypharmacy/marijuana use contributed Imaging studies reviewed Fall precautions PT/OT eval completed Hypokalemia Hypomagnesemia On Chronic potassium supplements Diuretics contributing Replace electrolytes as needed H/O CAD S/P Stent Chronic diastolic heart failure Continue home medications No signs of decompensation Hypertension Continue amlodipine, carvedilol Monitor Hyperlipidemia on statin PTSD/mood disorder Chronic Pain H/O migraine Off fentanyl patch from prior admission ? Concern for Narcotic abuse Continue home meds with caution DM II HbA1C:7.3 Hold PO meds Utilize Insulin therapy while hospitalized Monitor BGs Hypothyroidism Continue levothyroxine DVT Px: on IV Heparin Code Status Full Code Disposition PT/OT prior to discharge Case management to help with discharge planning Admission and Anticipated Discharge Date Admission Date: October 05, 2020 Subjective Patient is seen and examined at bedside Alert, awake, oriented today States having headache secondary to migraine Also reports chronic back pain Offers no other complaints Denies chest pain, dyspnea, dizziness, nausea, abdominal pain Review of Systems Review of Systems: All systems reviewed & are unremarkable except as noted in HPI & below Physical Exam Physical Exam: Physical Exam: Vitals signs as noted above General Appearance:Obese, no apparent distress Head: normocephalic, Atraumatic Eyes: normal inspection, EOMI Neck: supple, Trachea midline Respiratory/Chest: Normal breath sounds, CTA Cardiovascular: S1, S2, No murmur Abdomen/GI:Soft, Non tender, Bowel sounds present Extremities/Musculoskelatal:normal inspection, 1+ B/L LE edema Neurologic/Psych:grossly no focal neurological deficits Skin: normal color, warm Results & Data Results & Data ([facility]) Vital Signs (Past 12 Hours) Vital Signs Temp Pulse Pulse Resp BP BP Pulse Ox 10/07/20 11:53 36.5 C 66 18 123/74 91 10/07/20 08:36 36.6 C 63 20 120/72 90 10/07/20 08:00 54 L 10/07/20 04:22 36.7 C 89 20 109/72 93 Laboratory Results Short CBC 10/07/20 Range/Units 06:30 WBC 7.63 (4.8-10.8) K/uL Hgb 12.2 (12.0-16.0) g/dL Hct 36.6 L (37-47) % Plt Count 258 (130-400) K/uL BMP 10/07/20 06:30 Sodium 144 Potassium 3.5 D Chloride 105 Carbon Dioxide 34 H BUN 12 Creatinine 0.80 Glucose 129 H Calcium 8.8
[2020-10-07] MEDS: traZODone HCL 100 MG TAB PO SCH (20:24)
[2020-10-07] MEDS: GABAPENTIN 300 MG CAP PO SCH (20:24)
[2020-10-07] MEDS: DOXEPIN HCL 50 MG CAPSULE PO SCH (20:24)
[2020-10-07] MEDS: LURASIDONE HCL 40 MG TAB PO SCH (20:24)
[2020-10-08] MEDS: OLOPATADINE~ORDER AWAITING ACTION SCH ×2 (00:17→09:32)
[2020-10-08] MEDS: LEVOTHYROXINE SODIUM 75 MCG TABLET PO SCH (06:21)
[2020-10-08 06:32] LABS: Hemoglobin 12.7 g/dL (12.0-16.0); Mean Corpuscular Hemoglobin 29.9 pg (25-34); Mean Corpuscular Hgb Conc 33.4 g/dL (32-36); Mean Corpuscular Volume 89.4 fL (80-100); Mean Platelet Volume 9.7 fL (7.4-10.4); Platelet Count 278 K/uL (130-400); RDW Coefficient of Variation 14.1 % (11.5-14.5); RDW Standard Deviation 45.8 fL (36.4-46.3); Red Blood Count 4.25 M/uL (4.2-5.4); White Blood Count 10.25 K/uL (4.8-10.8)
[2020-10-08 06:55] LABS: BUN Creatinine Ratio 9.4 (10-20); Calcium 9.3 mg/dl (8.5-10.1); Creatinine Clr Calc Pharmacy 68.2 ml/min; Est GFR (African American) 81.7; Est GFR (Non-African American) 70.4; Potassium 3.6 mmol/L (3.5-5.1)
[2020-10-08] MEDS: HEPARIN SODIUM/DEXTROSE 25,000 UNITS/500 ML BAG IV SCH (07:27)
[2020-10-08 08:18] LABS: Partial Thromboplastin Ratio 2.6
[2020-10-08 08:20] LABS: Partial Thromboplastin Time 71.7 Seconds (21.0-31.0)
[2020-10-08] MEDS: INSULIN ASPART 100 UNITS/ML 3 ML PEN SC SCH ×2 (09:33→12:50)
[2020-10-08] MEDS: POTASSIUM CHLORIDE CRTAB 20 MEQ TABCR PO SCH (09:36)
[2020-10-08] MEDS: CEROVITE ADV FORMULA TAB PO SCH (09:36)
[2020-10-08] MEDS: DULoxetine HCL 60 MG CAP PO SCH (09:36)
[2020-10-08] MEDS: FUROSEMIDE 20 MG TAB PO SCH (09:36)
[2020-10-08] MEDS: amLODIPine BESYLATE 5 MG TAB PO SCH (09:37)
[2020-10-08] MEDS: ASPIRIN 81 MG ECTAB PO SCH (09:37)
[2020-10-08] MEDS: ATORVASTATIN 40 MG TAB PO SCH (09:37)
[2020-10-08] MEDS: busPIRone 5 MG TAB PO SCH (09:38)
[2020-10-08] MEDS: CALCIUM 600MG + VIT D 400 IU TAB PO SCH (09:38)
[2020-10-08] MEDS: PANTOprazole 40 MG TAB PO SCH (09:38)
[2020-10-08] MEDS: carvediloL 12.5 MG TAB PO SCH (09:38)
[2020-10-08] MEDS: INSULIN GLARGINE SOLOSTAR 100 UNITS/ML 3 ML PEN SC SCH (09:39)
[2020-10-08] MEDS: traMADol HCL 50 MG TABLET PO PRN (09:43)
[2020-10-08] MEDS ORDERED: APIXABAN 5 MG TABLET PO SCH (11:15)
--- NOTE | 2020-10-08 12:08 | Hospitalist Progress Note ---
Date of Service October 08, 2020 Assessment & Plan (1) Hypoxia: Acute on Chronic hypoxic respiratory failure Acute Metabolic/Toxic Encephalopathy Uses 3 L of oxygen supplemental oxygen at bedtime--as per patient Likely multifactorial--H/O HOLLY, Possible OHS, Atelectasis, polypharmacy, ma rijuana use --CTA:Minimally enlarged mediastinal lymph nodes. No evidence of acute pulmonary embolism. Basilar atelectasis. 1 cm pleural-based opacity within the left lower lobe likely representing focal atelectasis. Postsurgical changes involving the spine and left ribs. -CT Head:No acute intracranial findings -H/O CPAP Intolerance -Denies overdosing on home meds -Resumed home meds- monitor for excessive sedation -continue supplemental oxygen at bedtime -Mental status back to baseline Recurrent DVT Venous Doppler:Right peroneal vein DVT. No evidence of oajbm-rjw-auyk thrombus. No evidence of left lower extremity DVT. Previously refused anticoagulation for DVT in the past as per documentation:January 2020 H/O BRBPR in the past and Colitis on CT scan Out patient Colonoscopy, Endoscopy not contributory in the past Currently interested in anticoagulation Denies recurrent falls Received IV heparin Monitor CBC, and for bleeding issues Will transition to Eliquis (patient understands the risk for bleeding, and falls while on blood thinner--but prefers to continue anticoagulation) No bleeding issues Unwitnessed Fall Fell out of bed during sleep ? Polypharmacy/marijuana use contributed Imaging studies reviewed Fall precautions PT/OT eval completed Not interested in rehab facility placement Explained about fall risk while on blood thinner, but refuses rehab placement Hypokalemia Hypomagnesemia On Chronic potassium supplements Diuretics likely contributing Replace electrolytes as needed H/O CAD S/P Stent Chronic diastolic heart failure Continue home medications No signs of decompensation Hypertension Continue amlodipine, carvedilol Monitor Hyperlipidemia on statin PTSD/mood disorder Chronic Pain H/O migraine Off fentanyl patch from prior admission ? Concern for Narcotic abuse Continue home meds with caution DM II HbA1C:7.3 Hold PO meds Utilize Insulin therapy while hospitalized Monitor BGs Hypothyroidism Continue levothyroxine DVT Px: Eliquis Code Status Full Code Disposition Refuses Rehab placement Case management to help with discharge planning Admission and Anticipated Discharge Date Admission Date: October 05, 2020 Subjective Patient is seen and examined at bedside No new complaints Mental status at baseline Headache resolved Reports chronic back pain Denies any bleeding issues while on IV heparin Denies chest pain, dyspnea, dizziness, nausea, abdominal pain Eager to get discharged Not interested in Rehab placement Review of Systems Review of Systems: All systems reviewed & are unremarkable except as noted in HPI & below Physical Exam Physical Exam: Physical Exam: Vitals signs as noted above General Appearance:Obese, no apparent distress Head: normocephalic, Atraumatic Eyes: normal inspection, EOMI Neck: supple, Trachea midline Respiratory/Chest: Normal breath sounds, CTA Cardiovascular: S1, S2, No murmur Abdomen/GI:Soft, Non tender, Bowel sounds present Extremities/Musculoskelatal:normal inspection, 1+ B/L LE edema Neurologic/Psych:grossly no focal neurological deficits Skin: normal color, warm Results & Data Results & Data ([facility]) Vital Signs (Past 12 Hours) Vital Signs Temp Pulse Resp BP BP Pulse Ox 10/08/20 11:50 36.5 C 76 20 135/84 91 10/08/20 08:27 37.0 C 88 20 133/81 91 10/08/20 04:44 36.7 C 77 20 126/79 96 Laboratory Results Short CBC 10/08/20 Range/Units 06:06 WBC 10.25 (4.8-10.8) K/uL Hgb 12.7 (12.0-16.0) g/dL Hct 38.0 (37-47) % Plt Count 278 (130-400) K/uL [facility] 10/08/20 06:06 Sodium 144 Potassium 3.6 Chloride 105 Carbon Dioxide 33 H BUN 8 Creatinine 0.83 Glucose 125 H Calcium 9.3
--- NOTE | 2020-10-08 12:30 | Discharge Summary ---
Date of Service October 08, 2020 Admission HPI Per Admitting Provider History obtained from patient and records. Medical history significant for chronic diastolic heart failure (EF 55 to 59%, TTE 2019), HOLLY CPAP noncompliance, CAD sp stenting, HTN, hyperlipidemia, PTSD/mood disorder, post polio syndrome/scoliosis as per records, chronic pain, hx drug misuse as per records, DM2 on oral medications, hx DVT (patient refused anticoagulation), cyclic vomiting syndrome as per records. Patient admitted January 2020 for hypoxemic respiratory failure. Found to have age-indeterminate DVT on ultrasound of the lower extremities on PE work-up. Patient refused anticoagulation at time of confinement as per documentation. Last confinement April 2020 for dizziness. During confinement, hong clark called for narcotic overdose. Patient found to have her Fentanyl patch in her mouth. Patient subsequently weaned off from her home Fentanyl to tramadol as needed. Patient fell out of bed while she was sleeping today. Has happened before. Complaining of left hand pain and achy headache, neck pain symptoms. Headache slightly worse with motion. Bilateral achy hand pain. Patient denies chest pain, S OB, cough symptoms. On and off swelling of the hands and legs with weight up and down as per patient At the ER, patient noted to have episodic sleepiness as per ER provider. 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 Admission Exam Per Admitting Provider Physical Exam Physical Exam: GENERAL: slightly uncomfortable, obese, no respiratory distress SKIN: Normal color, warm HEENT: [place] palpebral conjunctivae, no ptosis, dry buccal mucosa, nasal cannula in place NECK : Supple, short neck, no tenderness CHEST : Decreased breath sounds, no tenderness HEART : RRR, no obvious murmurs ABDOMEN: Some distention, nontender EXTREMITIES : Minimal LE swelling/RLE tenderness, no other conspicuous deformities noted NEUROLOGIC : Coherent, no facial asymmetry, no other gross focality Principal Diagnosis Acute on Chronic hypoxic respiratory failure Acute Metabolic/Toxic Encephalopathy Recurrent DVT Unwitnessed Fall Hypokalemia Hypomagnesemia Discharge Data Allergies Allergy/AdvReac Type Severity Reaction Status Date / Time latex Allergy Intermediate Rash Verified 10/05/20 21:30 nickel Allergy Intermediate SEVERE Verified 10/05/20 21:30 DERMATITIS NSAIDS (Non-Steroidal Allergy Intermediate HX OF Verified 10/05/20 21:30 Anti-Inflamma BLEEDING ULCERS-TO AVOID adhesive tape AdvReac Intermediate SKIN Verified 10/05/20 21:30 IRRITATION aspirin AdvReac Intermediate bleeding Verified 10/05/20 21:30 ulcers Consultations 10/05/20 19:54 ED Decision to Admit Stat 10/05/20 22:44 Consult Case Management - Discharge Planning Routine Procedures Performed CTA:Minimally enlarged mediastinal lymph nodes. No evidence of acute pulmonary embolism. Basilar atelectasis. 1 cm pleural-based opacity within the left lower lobe likely representing focal atelectasis. Postsurgical changes involving the spine and left ribs. CT Head:No acute intracranial findings Venous Doppler:Right peroneal vein DVT. No evidence of [id number] thrombus. No evidence of left lower extremity DVT. Ordered Studies 10/05/20 16:40 CT cervical spine wo con Stat CT head/brain wo con Stat 10/05/20 18:35 CT angio chest PE protocol Stat 10/05/20 19:54 US venous doppler LE BI Stat Hospital Course (1) Hypoxia: Acute on Chronic hypoxic respiratory failure Acute Metabolic/Toxic Encephalopathy Uses 3 L of oxygen supplemental oxygen at bedtime--as per patient Likely multifactorial--H/O HOLLY, Possible OHS, Atelectasis, polypharmacy, marijuana use --CTA:Minimally enlarged mediastinal lymph nodes. No evidence of acute pulmonary embolism. Basilar atelectasis. 1 cm pleural-based opacity within the left lower lobe likely representing focal atelectasis. Postsurgical changes involving the spine and left ribs. -CT Head:No acute intracranial findings -H/O CPAP Intolerance -Denies overdosing on home meds -Resumed home meds- monitor for excessive sedation -continue supplemental oxygen at bedtime -Mental status back to baseline Recurrent DVT Venous Doppler:Right peroneal vein DVT. No evidence of oxirf-qeq-vzcw thrombus. No evidence of left lower extremity DVT. Previously refused anticoagulation for DVT in the past as per documentation:January 2020 H/O BRBPR in the past and Colitis on CT scan Out patient Colonoscopy, Endoscopy not contributory in the past Currently interested in anticoagulation Denies recurrent falls Received IV heparin Monitor CBC, and for bleeding issues Will transition to Eliquis (patient understands the risk for bleeding, and falls while on blood thinner--but prefers to continue anticoagulation) No bleeding issues Unwitnessed Fall Fell out of bed during sleep ? Polypharmacy/marijuana use contributed Imaging studies reviewed Fall precautions PT/OT naye completed Not interested in rehab facility placement Explained about fall risk while on blood thinner, but refuses rehab placement Hypokalemia Hypomagnesemia On Chronic potassium supplements Diuretics likely contributing Replace electrolytes as needed H/O CAD S/P Stent Chronic diastolic heart failure Continue home medications No signs of decompensation Hypertension Continue amlodipine, carvedilol Monitor Hyperlipidemia on statin PTSD/mood disorder Chronic Pain H/O migraine Off fentanyl patch from prior admission ? Concern for Narcotic abuse Continue home meds with caution DM II HbA1C:7.3 Hold PO meds Utilize Insulin therapy while hospitalized Monitor BGs Hypothyroidism Continue levothyroxine DVT Px: Eliquis Code Status Full Code Disposition Refuses Rehab placement Case management to help with discharge planning Total Time Total Time Spent Total Time Spent (In Minutes): 43 minutes Total Time Includes: Examination of the Patient, Discharge Planning, Medication Reconciliation, Communication With Other Providers and Other Discharge Plan Discharge Items Patient Disposition: Home - Home Health Services Reason For Visit: RESP FAILURE Discharge Diagnosis: Acute on Chronic hypoxic respiratory failure Acute Metabolic/Toxic Encephalopathy Recurrent DVT Unwitnessed Fall Hypokalemia Hypomagnesemia Activity: Per Instructions section Exercise/Sports: Gradually increase as tolerated Non-emergency contact: Primary Care Provider Call non-emergency contact if: you have any medication questions, your symptoms worsen, your pain is not controlled, your pain is worsening, your pain is unusual for you, your pain is concerning for you and you have a fever Follow-up/Referrals: Charanjit Spann MD [Primary Care Provider] - (Date & Time 10/15/2020 11:20 AM Provider Charanjit Spann MD Department Family [facility] ) Diet: Carb Consistent or DM2 and Heart Healthy Addtl Attending Provider Instructions: Follow up with your Primary Care Physician with on 10/15/2020 11:20 AM Eliquis (Apixaban) Dosing: Start taking Eliquis 10 mg twice a day for 7 days, then take 5mg twice a day. Please discuss with your physician for duration of anticoagulation (Eliquis) therapy. Get blood test(Hypercoagulability Work up ) as outpatient to determine the cause of your blood clots. If you have any bleeding issues, stop Eliquis and discuss with your physician for further instructions. Seek immediate medical attention if your symptoms reoccur or worsen Pending Studies at Discharge: No Stand-Alone Forms: My [facility], Smoking Cessation Medications and DC Order Prescriptions: New Eliquis 5 mg Tablet 5 mg PO UD Qty: 74 RF: 0 Continued nitroglycerin [Nitrostat] 0.3 mg Tablet, Sublingual 0.3 mg sublingual UD PRN (Reason: Chest Pain) RF: 0 Calcium 600 + D(3) 600 mg calcium- 200 unit Capsule 1 cap PO BID RF: 0 olopatadine 0.2 % Drops 1 drp OPB QAM RF: 0 epinephrine 0.3 mg/0.3 mL Syringe 0.3 mg IM Q3H PRN (Reason: Allergic Reaction) RF: 0 Ocuvite Adult 50 Plus 250-5-1 mg Capsule 1 cap PO QAM RF: 0 pantoprazole 40 mg tablet,delayed release (DR/EC) 40 mg PO QAM RF: 0 Latuda 20 mg Tablet 20 mg PO QPM RF: 0 gabapentin 300 mg capsule 600 mg PO HS RF: 0 carvedilol 12.5 mg tablet 12.5 mg PO BID RF: 0 amlodipine 10 mg tablet 10 mg PO DAILY RF: 0 metformin 500 mg Tablet 500 mg PO BIDM RF: 0 doxepin 50 mg Capsule 50 mg PO HS RF: 0 lorazepam 0.5 mg Tablet 0.5 mg PO HS RF: 0 aspirin 81 mg Tablet,Chewable 81 mg PO DAILY RF: 0 duloxetine 60 mg Capsule,Delayed Release(Dr/Ec) 60 mg PO DAILY RF: 0 potassium chloride 20 mEq Tablet Extended Release 40 meq PO DAILY RF: 0 furosemide 20 mg tablet 20 mg PO DAILY RF: 0 atorvastatin [Lipitor] 40 mg Tablet 40 mg PO QAM RF: 0 levothyroxine 75 mcg Tablet 75 mcg PO DAILYBB RF: 0 buspirone 10 mg Tablet 10 mg PO TID RF: 0 polyethylene glycol 3350 17 gram Powder In Packet 17 g PO DAILY PRN (Reason: Constipation) RF: 0 promethazine 25 mg Tablet 25 mg PO Q6H PRN (Reason: Nausea) RF: 0 hydroxyzine HCl 25 mg tablet 25 mg PO BID PRN (Reason: Anxiety) RF: 0 tizanidine 4 mg tablet 4 mg PO BID PRN (Reason: Muscle Spasm) RF: 0 trazodone 100 mg Tablet 200 mg PO HS RF: 0 Discharge Orders: Discharge Order (Routine); Ordered 10/08/20 Ordered By: Venkatesh Banks Admission Data Admit Date/Time: 10/05/20 21:16 Attending Provider: Venkatesh Banks Admit Provider: Latrell Kraft Primary Care Provider: Charanjit Spann Other Providers: Latrell Kraft ; [facility],Home Healthcare Other Interventions: Discharge Summary Assessment (RN) Last Done: 10/08/20 12:31
[2020-10-09 12:57] LABS: MDA negative; MDEA negative; MDMA (Ecstasy) Urine, Confirm negative; Marijuana Quant, GCMS Urine 1580 ng/mL (<5)
== END 2020-10-08 14:54 | disposition home health service (06) ==
LOC: ED 16:20 → 2N 21:16

== ENCOUNTER 2021-02-15 03:24 | Observation (INO) ==
[2021-02-15 04:16] LABS: Basophils # (auto) 0.06 K/uL (0-0.2); Basophils % (auto) 0.6 %; Eosinophils % (auto) 4.7 %; Hematocrit (blood only) 35.5 % (37-47); Hemoglobin 12.6 g/dL (12.0-16.0); Immature Granulocytes # (auto) 0.02 K/uL (0.00-0.02); Immature Granulocytes % (auto) 0.2 %; Lymphocytes # (auto) 2.28 K/uL (1.2-3.4); Lymphocytes % (auto) 21.4 %; Mean Corpuscular Hemoglobin 29.6 pg (25-34); Mean Corpuscular Hgb Conc 35.5 g/dL (32-36); Mean Corpuscular Volume 83.3 fL (80-100); Mean Platelet Volume 9.4 fL (7.4-10.4); Monocytes # (auto) 1.06 K/uL (0.11-0.59); Neutrophils # (auto) 6.73 K/uL (1.4-6.5); Neutrophils % (auto) 63.1 %; Platelet Count 339 K/uL (130-400); RDW Coefficient of Variation 14.9 % (11.5-14.5); RDW Standard Deviation 45.2 fL (36.4-46.3); Red Blood Count 4.26 M/uL (4.2-5.4); White Blood Count 10.65 K/uL (4.8-10.8)
[2021-02-15 04:23] LABS: iSTAT Creatinine 0.9 mg/dl (0.6-1.3); iSTAT Hemoglobin 12.6 g/dl (12.0-16.0); iSTAT Ionized Calcium 1.1 mmol/l (1.12-1.32); iSTAT Potassium 2.9 mmol/L (3.3-5.0)
[2021-02-15 04:27] LABS: Partial Thromboplastin Time 26.7 Seconds (21.0-31.0); Prothrombin Time 10.5 Seconds (9.0-12.0)
[2021-02-15 04:34] LABS: Appearance Urine Cloudy (Clear); Bacteria Urine Automated Negative (Negative); Blood Urine Negative (Negative); Color Urine Dark Yellow; Epithelial Cell Urine Auto >30 /lpf (0-5); Glucose Urine UA Negative (Negative); Ketones Urine Trace (Negative); Leukocyte Esterase Urine Trace (Negative); Nitrite Urine Negative (Negative); Protein Urine 1+ (Negative); Specific Gravity Urine 1.025 (1.000-1.030); Urobilinogen Urine Negative (Negative); pH Urine 5.5 (4.5-7.5)
[2021-02-15 04:34] LABS: Amphetamines+Metham, Urine Neg (Neg); Barbiturates, Urine Neg (Neg); Benzodiazepine, Urine Pos (Neg); Cocaine, Urine Neg (Neg); MDMA (Ecstacy), Urine Pos (Neg); Methadone, Urine Neg (Neg); Opiate, Urine Pos (Neg); Phencyclidine, Urine Neg (Neg)
[2021-02-15 04:35] LABS: Bilirubin Urine 1+ (Negative)
[2021-02-15 04:37] LABS: Alanine Aminotransferase 24 U/L (12-78); Albumin Level 3.7 gm/dl (3.4-5.0); Aspartate Aminotransferase 27 U/L (15-37); BUN Creatinine Ratio 15.6 (10-20); Blood Urea Nitrogen 16 mg/dl (7-18); Calcium 8.6 mg/dl (8.5-10.1); Carbon Dioxide 29 mmol/L (21-32); Chloride 105 mmol/L (98-107); Creatinine Clr Calc Pharmacy 61.8 ml/min; Est GFR (African American) 64.7; Est GFR (Non-African American) 55.8; Glucose 198 mg/dl (70-99); Magnesium 1.4 mg/dl (1.8-2.4); Sodium 139 mmol/L (136-145)
[2021-02-15 04:43] LABS: Albumin Globulin Ratio 0.9 (0.9-2); Alkaline Phosphatase 154 U/L (45-117); Bilirubin,Total 0.4 mg/dl (0.2-1); Globulin 3.9 gm/dl (2.5-4.0); Total Protein 7.6 gm/dl (6.4-8.2); Troponin I < 0.015 ng/ml (0-0.045)
[2021-02-15 04:45] LABS: Cast Urine Automated >30 /lpf (0-5); RBC Urine Automated 0-4 /hpf (0-4)
[2021-02-15] MEDS ORDERED: OPTIRAY 350 500ml IV ONE (05:00)
[2021-02-15] MEDS ORDERED: POTASSIUM CHLORIDE 20 MEQ/15 ML UDC PO STA (06:19)
--- NOTE | 2021-02-15 06:30 | CT Scan Report ---
CT OF THE HEAD WITHOUT CONTRAST CLINICAL HISTORY: Stroke Like Symptoms COMPARISON STUDY: Head CT October 05, 2020. CT DOSE: 1306.28 mGy.cm TECHNIQUE: Helical axial images of the head were obtained without IV contrast. Automated exposure con trol was utilized for the study. A dose lowering technique was utilized adhering to the principles o f ALARA. FINDINGS: No acute intracranial hemorrhage, midline shift or mass effect is present. The ventricular system is unremarkable. The basal cisterns are patent. No extra-axial collections are present. There are no findings to suggest acute dural sinus thrombosis or acute territorial infarct. No significant calvarial abnormalities are present. Visualized portions of the sinuses and mastoid air cells are cachorro ar. IMPRESSION: No acute intracranial findings. No change in appearance of the brain. ACT 112: Negative or not required by law. Electronically signed by: Gonsalo Villafana M.D. 02/15/2021 6:28 AM
[2021-02-15 06:32] LABS: Influenza A virus by PCR Negative (Neg); Influenza B virus by PCR Negative (Neg); RSV by PCR Negative (Neg); SARS CoV2 RNA(COVID-19) InHosp NEGATIVE (Negative)
[2021-02-15] MEDS: MAGNESIUM SULFATE / D5W 1 GM/100 ML BAG IV SCH ×2 (06:36→10:23)
[2021-02-15] MEDS: POTASSIUM CHLORIDE / WTR 10 MEQ/100 ML PLCT IV SCH ×7 (06:36→21:59)
--- NOTE | 2021-02-15 06:41 | CT Scan Report ---
CT ANGIOGRAPHY OF THE NECK WITH CONTRAST CLINICAL HISTORY: Stroke Like Symptoms COMPARISON STUDY: Cervical spine CT December 14, 2020. Technique: CT angiography of the carotid and vertebral arteries was obtained using Optir[employer] and 3D rec onstruction on an independent workstation. NASCET criteria was utilized. Automated exposure control was utilized for the study. A dose lowering technique was utilized adhering to the principles of ALA RA. Findings: Mild emphysema is noted within the lung apices. There is no cervical lymphadenopathy. There is no acute cervical spine fracture. The bilateral common carotid, cervical internal carotid and pool tebral arteries are patent. There is mild plaque within the proximal right internal carotid artery wi thout significant stenosis. The right vertebral artery is dominant. No dissection within the major ve ssels within neck is noted. No aneurysm within the neck is noted. CTA of the head will be reported se inez. Left subclavian [id number] is incidentally noted. IMPRESSION: Mild atherosclerotic plaque within the proximal right internal carotid artery. No stenosis or dissect ion within the major vessels of the neck. ACT 112: Negative or not required by law. Electronically signed by: Gonsalo Villafana M.D. 02/15/2021 6:39 AM
--- NOTE | 2021-02-15 07:18 | Emergency Department Note ---
ED Visit Note I saw this patient in conjunction with Chelly Turner PA-C. I agree with her decision making and treatment plan. .
--- NOTE | 2021-02-15 07:18 | CT Scan Report ---
HEAD CTA HISTORY: Confusion. Stroke Like Symptoms TECHNIQUE: Multiaxial CT images of the head were performed both before and after the intravenous admi nistration of contrast to evaluate the major cerebral vessels. Maximum intensity projection images we re also obtained. A dose lowering technique was utilized adhering to the principles of ALARA. COMPARISON: None. FINDINGS: There is no mass, hematoma, midline shift, or acute infarct. Visualized intracranial internal medicine specialist al carotid arteries, distal vertebral arteries, and basilar artery are widely patent. There is no sig nificant stenosis, occlusion, or aneurysm seen within the bilateral ACAs, MCAs, or bilingual counter sales [employer]. The major du ral venous sinuses appear patent. IMPRESSION: No significant stenosis, occlusion, or aneurysm within the [place]. ACT 112: Negative or not required by law. Electronically signed by: Bulmaro Zavaleta M.D. 02/15/2021 7:17 AM
--- NOTE | 2021-02-15 07:34 | Emergency Department Note ---
History of Present Illness General Chief complaint: Confusion Stated complaint: ALTERED MENTAL STATUS Time Seen by Provider: 02/15/21 03:30 Source: patient and EMS Mode of arrival: EMS Limitations: altered mental status History of Present Illness This patient is a 71-year-old female who presents to the emergency department via EMS for evaluation of altered mental status. Per EMS, patient was found wandering around in a neighbor's house, who thought she was sleepwalking and called 911. Patient was confused with intermittent aphasia on EMS arrival. EMS reported that the patient was found with several pill bottles laying around her. Most of the pill bottles were brought to the ED. These include oxycodone, lorazepam, gabapentin and trazodone. Per the neighbors, patient has been acting oddly lately. Home Medications Medication Instructions Recorded Confirmed Type atorvastatin [Lipitor] 40 mg PO QAM 12/13/18 02/15/21 History buspirone 10 mg PO TID PRN 12/13/18 02/15/21 History levothyroxine 75 mcg PO DAILYBB 12/13/18 02/15/21 History polyethylene glycol 3350 17 g PO DAILY PRN 05/12/19 10/05/20 History promethazine 25 mg PO Q6H PRN 05/12/19 10/05/20 History Calcium 600 + D(3) 1 cap PO BID 05/23/19 10/05/20 History Ocuvite Adult 50 Plus 1 cap PO QAM 05/23/19 10/05/20 History epinephrine 0.3 mg IM Q3H PRN 05/23/19 10/05/20 History nitroglycerin [Nitrostat] 0.3 mg SUBLINGUAL UD PRN 05/23/19 02/15/21 History olopatadine 1 drp OPB QAM 05/23/19 02/15/21 History pantoprazole 40 mg PO QAM 07/03/19 02/15/21 History Latuda 20 mg PO QPM 08/04/19 02/15/21 History amlodipine 10 mg PO DAILY 02/27/20 02/15/21 History carvedilol 12.5 mg PO BIDM 02/27/20 02/15/21 History tizanidine 4 mg PO BID PRN 04/03/20 02/15/21 History trazodone 100 mg PO HS 04/03/20 02/15/21 History aspirin 81 mg PO DAILY 10/05/20 10/05/20 History duloxetine 60 mg PO DAILY 10/05/20 02/15/21 History furosemide 20 mg PO DAILY 10/05/20 02/15/21 History metformin 500 mg PO BIDM 10/05/20 02/15/21 History potassium chloride 40 meq PO DAILY 10/05/20 02/15/21 History Eliquis 5 mg PO UD #74 tab 10/08/20 02/15/21 Rx lidocaine 1 patch TOP DAILY PRN #15 ea 12/14/20 Rx duloxetine 30 mg PO DAILY 02/15/21 02/15/21 History loperamide 2 mg PO QID PRN 02/15/21 02/15/21 History metformin 1,000 mg PO BIDM 02/15/21 02/15/21 History nystatin 1 applic TOPICAL DAILY PRN 02/15/21 02/15/21 History oxycodone 10 mg PO Q6H PRN 02/15/21 02/15/21 History pramipexole 0.125 mg PO HS PRN 02/15/21 02/15/21 History Allergies Allergy/AdvReac Type Severity Reaction Status Date / Time latex Allergy Intermediate Rash Verified 10/05/20 21:30 nickel Allergy Intermediate SEVERE Verified 10/05/20 21:30 DERMATITIS NSAIDS (Non-Steroidal Allergy Intermediate HX OF Verified 10/05/20 21:30 Anti-Inflamma BLEEDING ULCERS-TO AVOID adhesive tape AdvReac Intermediate SKIN Verified 10/05/20 21:30 IRRITATION aspirin AdvReac Intermediate bleeding Verified 10/05/20 21:30 ulcers Past Med/Surg History Medical History Anemia HX OF Anxiety CAD (coronary artery disease) 2017-BMS to LAD Cervical spondylolysis Chronic heart failure with preserved ejection fraction (HFpEF) Chronic pain Colitis Cyclical vomiting Deep vein thrombosis 4 YEARS AGO Degenerative disc disease Depression Dyslipidemia GI bleed history of. declining anticoagulation due to hx of GIB. Hyperlipidemia Hypertension Hypothyroidism Migraine Mood disorder Myocardial Infarction 2 YEARS AGO Osteoarthritis Post traumatic stress disorder Pulmonary embolism 2 YEARS OLD (UNSURE OF REASON) Restless leg syndrome Scoliosis Surgical History Fusion of spine LUMBAR H/O ovarian cystectomy H/O repair of right rotator cuff H/O spinal fusion "1st surgery in [place], then multiple surgeries Dr. Catherine at [facility] [place] History of adenoidectomy History of anesthesia reaction WOKE UP IN MIDDLE OF SPINAL SURGERIES History of appendectomy History of cataract surgery LEFT AND RIGHT History of heart artery stent 2017-1 STENT PLACED AT [facility] (DR. DAVILA) History of laminectomy LUMBAR History of tonsillectomy History of vascular access device PORT LEFT UPPER CHEST-IN PLACE Ovarian cyst X 2 Family History Mother Hypertension Father Hypertension Social History Smoking Status: Never smoker Second Hand Exposure: No; Hx Alcohol Use: No Hx Substance Use: Yes Last Used Substance: Days (ago) Preferred Language: Mohawk Communication Ability: Effective Visual Impairment: Limited Hearing Ability: Normal Jamb Cutter Required: No Beliefs That Will Affect Care: None marital status: Single Current Living Situation: Alone current occupational status: retired Feels Safe at Home: Yes Assistive Devices: Walker Review of Systems A total of 10 systems reviewed and were otherwise negative Physical Exam Vital Signs Vital Signs - 24 hr 02/15/21 03:36 02/15/21 03:48 02/15/21 05:32 Temperature 37 C Temperature Source Oral Pulse Rate 98 H 95 H 92 H Pulse Rate from SpO2 Sensor 95 H Pulse Rhythm Respiratory Rate 18 19 16 Respiratory Effort / Characteristics Non-Labored Spontaneous Respiratory Depth Normal Respiratory Pattern Regular Blood Pressure 203/116 H 143/73 H 138/76 Blood Pressure Mean 145 96 96 Blood Pressure Position Lying Pulse Oximetry 94 91 98 Oxygen Delivery Method Room Air Room Air Oxygen Flow Rate Sepsis Recent Fever Within 48 Hours No Sepsis New/Unexplained Change in Mental Status No Sepsis Action Taken by Nursing No Action Required Oxygen Flow Rate - Titration Pulse Oximetry Post Tiitration 02/15/21 05:58 02/15/21 05:59 02/15/21 06:00 Temperature Temperature Source Pulse Rate 89 88 89 Pulse Rate from SpO2 Sensor Pulse Rhythm Regular Regular Respiratory Rate 16 16 16 Respiratory Effort / Characteristics Respiratory Depth Respiratory Pattern Blood Pressure 132/80 Blood Pressure Mean 97 Blood Pressure Position Pulse Oximetry 86 L 93 94 Oxygen Delivery Method Room Air Nasal Cannula Nasal Cannula Oxygen Flow Rate 2 2 Sepsis Recent Fever Within 48 Hours Sepsis New/Unexplained Change in Mental Status Sepsis Action Taken by Nursing Oxygen Flow Rate - Titration Pulse Oximetry Post Tiitration 02/15/21 06:16 02/15/21 06:30 Temperature Temperature Source Pulse Rate 89 Pulse Rate from SpO2 Sensor Pulse Rhythm Respiratory Rate 14 Respiratory Effort / Characteristics Respiratory Depth Respiratory Pattern Blood Pressure 125/70 Blood Pressure Mean 88 Blood Pressure Position Pulse Oximetry 88 L 94 Oxygen Delivery Method Room Air Nasal Cannula Oxygen Flow Rate 2 Sepsis Recent Fever Within 48 Hours Sepsis New/Unexplained Change in Mental Status Sepsis Action Taken by Nursing Oxygen Flow Rate - Titration 2 Pulse Oximetry Post Tiitration 94 VITALS: Vitals are noted on the nurse's note and reviewed by myself. GENERAL: This is a 71-year-old female, in no acute distress, well-developed well-nourished. SKIN: The skin was without rashes. HEAD: Normocephalic atraumatic. EARS: External auditory canals clear, tympanic membranes pearly head without erythema or effusion bilaterally. EYES: Pupils equal round and reactive to light and accommodation. Extraocular movements intact. NOSE: Patent, turbinates without inflammation or discharge. MOUTH: Mucous membranes moist. Tonsils are not enlarged. Pharynx without erythema or exudate. NECK: Supple without nuchal rigidity. No lymphadenopathy. HEART: Regular rate and rhythm without murmurs gallops or rubs. LUNGS: Clear to auscultation bilaterally without wheezes, rales or rhonchi. No retractions or accessory muscle use. ABDOMEN: Positive bowel sounds x 4. Soft, nontender to palpation. MUSCULOSKELETAL: Full range of motion throughout strength 5/5 throughout. NEURO: Patient is alert to person and place, but not time. She displays intermi ttent expressive aphasia. Negative Romberg/pronator drift. Normal [id number] testing. Course Administered Medications Discontinued Medications Amlodipine Besylate (Amlodipine Besylate 5 Mg Tab) 10 mg PO DAILY [facility] Stop: 03/17/21 09:59 Last Admin: 02/16/21 07:41 Dose: 10 mg Documented by: [id number] Admin: 02/15/21 10:47 Dose: 10 mg Documented by: [id number] Aspirin (Aspirin 81 Mg Ectab) 81 mg PO DAILY [facility] Stop: 03/17/21 09:59 Last Admin: 02/16/21 07:38 Dose: 81 mg Documented by: [id number] Admin: 02/15/21 10:47 Dose: 81 mg Documented by: [id number] Atorvastatin Calcium (Atorvastatin 40 Mg Tab) 40 mg PO QAM COLT Stop: 03/17/21 09:59 Last Admin: 02/16/21 07:41 Dose: 40 mg Documented by: [id number] Admin: 02/15/21 10:47 Dose: 40 mg Documented by: [id number] Carvedilol (Carvedilol 12.5 Mg Tab) 12.5 mg PO BIDM COLT Stop: 03/17/21 16:59 Last Admin: 02/16/21 17:26 Dose: 12.5 mg Documented by: [id number] Admin: 02/16/21 07:41 Dose: 12.5 mg Documented by: [id number] Admin: 02/15/21 17:38 Dose: 12.5 mg Documented by: [id number] Furosemide (Furosemide 20 Mg Tab) 40 mg PO DAILY COLT Stop: 03/17/21 08:59 Last Admin: 02/16/21 07:38 Dose: 40 mg Documented by: [id number] Admin: 02/15/21 14:16 Dose: 40 mg Documented by: [id number] Magnesium Sulfate/Dextrose (Magnesium Sulfate / D5w) 1 gm in 100 mls @ 50 mls/hr IV Q2H COLT Stop: 02/15/21 10:18 Last Infusion: 02/15/21 12:27 Dose: 0 mls/hr Documented by: [id number] Admin: 02/15/21 10:23 Dose: 50 mls/hr Documented by: [id number] Infusion: 02/15/21 08:06 Dose: 0 mls/hr Documented by: [id number] Admin: 02/15/21 06:36 Dose: 50 mls/hr Documented by: [id number] Potassium Chloride (K Sai / Wtr) 10 meq in 100 mls @ 100 mls/hr IV Q1H COLT Stop: 02/15/21 10:18 Last Infusion: 02/15/21 19:24 Dose: 0 mls/hr Documented by: [id number] Admin: 02/15/21 17:36 Dose: 40 mls/hr Documented by: [id number] Infusion: 02/15/21 15:18 Dose: 40 mls/hr Documented by: [id number] Admin: 02/15/21 12:48 Dose: 40 mls/hr Documented by: [id number] Infusion: 02/15/21 12:43 Dose: 40 mls/hr Documented by: [id number] Infusion: 02/15/21 10:28 Dose: 40 mls/hr Documented by: [id number] Admin: 02/15/21 10:22 Dose: 100 mls/hr Documented by: [id number] Infusion: 02/15/21 08:05 Dose: 0 mls/hr Documented by: [id number] Admin: 02/15/21 06:36 Dose: 100 mls/hr Documented by: [id number] Sodium Chloride (Nss 1000ml) 1,000 mls @ 75 mls/hr IV .[id number] COLT Stop: 03/17/21 08:59 Last Admin: 02/16/21 12:40 Dose: 75 mls/hr Documented by: [id number] Infusion: 02/16/21 12:31 Dose: 75 mls/hr Documented by: [id number] Admin: 02/15/21 23:11 Dose: 75 mls/hr Documented by: [id number] Infusion: 02/15/21 22:36 Dose: 75 mls/hr Documented by: [id number] Admin: 02/15/21 09:16 Dose: 75 mls/hr Documented by: [id number] Potassium Chloride (K Sai / Wtr) 10 meq in 100 mls @ 100 mls/hr IV Q1H COLT Stop: 02/15/21 15:44 Last Admin: 02/15/21 13:28 Dose: Not Given Documented by: [id number] Admin: 02/15/21 13:28 Dose: Not Given Documented by: [id number] Potassium Chloride (K Sai / Wtr) 10 meq in 100 mls @ 100 mls/hr IV Q1H COLT Stop: 02/15/21 22:29 Last Infusion: 02/15/21 23:20 Dose: 0 mls/hr Documented by: [id number] Admin: 02/15/21 21:59 Dose: 100 mls/hr Documented by: [id number] Infusion: 02/15/21 21:55 Dose: 100 mls/hr Documented by: [id number] Admin: 02/15/21 20:55 Dose: 100 mls/hr Documented by: [id number] Insulin Aspart (Insulin Aspart 100 Units/Ml 3 Ml Pen) 0 units SC ACHS COLT Stop: 03/17/21 08:40 Last Admin: 02/16/21 17:23 Dose: Not Given Documented by: [id number] Admin: 02/16/21 12:01 Dose: Not Given Documented by: [id number] Admin: 02/16/21 07:37 Dose: Not Given Documented by: [id number] Admin: 02/15/21 21:00 Dose: Not Given Documented by: [id number] Cosigned by: [id number] Admin: 02/15/21 17:36 Dose: Not Given Documented by: [id number] Admin: 02/15/21 12:15 Dose: Not Given Documented by: [id number] Admin: 02/15/21 10:20 Dose: Not Given Documented by: [id number] Ioversol (Optiray 350 500ml) 125 ml IV ONCE ONE Stop: 02/15/21 05:01 Last Admin: 02/15/21 05:00 Dose: 103 ml Documented by: [id number] Levothyroxine Sodium (Levothyroxine Sodium 75 Mcg Tablet) 75 mcg PO DAILYBB [facility] Stop: 03/18/21 06:29 Last Admin: 02/16/21 06:05 Dose: 75 mcg Documented by: [id number] Miscellaneous (Olopatadine 0.2%: Order Awaiting Action) 1 ea N/A QS [facility] Stop: 03/17/21 15:59 Last Admin: 02/16/21 16:27 Dose: Not Given Documented by: [id number] Admin: 02/16/21 07:42 Dose: Not Given Documented by: [id number] Admin: 02/16/21 00:01 Dose: Not Given Documented by: [id number] Admin: 02/15/21 16:02 Dose: Not Given Documented by: [id number] Pantoprazole Sodium (Pantoprazole 40 Mg Tab) 40 mg PO QAM COLT Stop: 03/18/21 08:59 Last Admin: 02/16/21 07:38 Dose: 40 mg Documented by: [id number] Polyethylene Glycol (Polyethylene (Miralax) 17 Gm Pack) 17 gm PO DAILY COLT Stop: 03/17/21 13:59 Last Admin: 02/16/21 07:41 Dose: 17 gm Documented by: [id number] Admin: 02/15/21 16:01 Dose: 17 gm Documented by: [id number] Potassium Chloride (Potassium Chloride 20 Meq/15 Ml Udc) 40 meq PO NOW STA Stop: 02/15/21 06:20 Last Admin: 02/15/21 08:08 Dose: Not Given Documented by: [id number] Potassium Chloride (Potassium Chloride Crtab 20 Meq Tabcr) 40 meq PO DAILY COLT Stop: 03/18/21 08:59 Last Admin: 02/16/21 07:42 Dose: 40 meq Documented by: [id number] Potassium Chloride (Potassium Chloride Crtab 20 Meq Tabcr) 60 meq PO ONE ONE Stop: 02/15/21 12:42 Last Admin: 02/15/21 14:16 Dose: 60 meq Documented by: [id number] Potassium Chloride (Potassium Chloride Crtab 20 Meq Tabcr) 20 meq PO NOW STA Stop: 02/16/21 06:30 Last Admin: 02/16/21 07:36 Dose: 20 meq Documented by: [id number] Medical Decision Making Differential Diagnosis Infection, hypoglycemia, electrolyte abnormalities, overdose, toxicologic, cardiac sources, intracerebral event, neurologic, trauma, as well as other pathologies. Home Medications Current Medication List: was personally reviewed by me Laboratory Data Attestation: I reviewed the patient's lab results. Result diagrams: 02/16/21 06:26 02/16/21 06:26 Lab Results 02/15/21 02/15/21 02/15/21 Range/Units 04:05 04:06 04:06 WBC 10.65 (4.8-10.8) K/uL RBC 4.26 (4.2-5.4) M/uL Hgb 12.6 (12.0-16.0) g/dL POC Hgb (12.0-16.0) g/dl Hct 35.5 L (37-47) % POC Hct (37-47) % MCV 83.3 (80-100) fL MCH 29.6 (25-34) pg MCHC 35.5 (32-36) g/dL RDW Std Deviation 45.2 (36.4-46.3) fL RDW Coeff of Arden 14.9 H (11.5-14.5) % Plt Count 339 (130-400) K/uL MPV 9.4 (7.4-10.4) fL Immature Gran % (Auto) 0.2 % Neut % (Auto) 63.1 % Lymph % (Auto) 21.4 % Antelope % (Auto) 10.0 % Eos % (Auto) 4.7 % Baso % (Auto) 0.6 % Neut # (Auto) 6.73 H (1.4-6.5) K/uL Lymph # (Auto) 2.28 (1.2-3.4) K/uL Antelope # (Auto) 1.06 H (0.11-0.59) K/uL Eos # (Auto) 0.50 (0-0.5) K/uL Baso # (Auto) 0.06 (0-0.2) K/uL Immature Gran # (Auto) 0.02 (0.00-0.02) K/uL PT 10.5 (9.0-12.0) Seconds INR 1.0 (0.9-1.1) APTT 26.7 (21.0-31.0) Seconds PTT Ratio 1.0 POC Sodium (135-144) mmol/L Sodium (136-145) mmol/L POC Potassium (3.3-5.0) mmol/L Potassium (3.5-5.1) mmol/L POC Chloride (101-112) mmol/L Chloride (98-107) mmol/L Carbon Dioxide (21-32) mmol/L POC Total CO2 (24-31) mmol/L Anion Gap (3-11) POC Anion Gap (16-25) mmol/L POC BUN (7-18) mg/dl BUN (7-18) mg/dl Creatinine (0.6-1.2) mg/dl POC Creatinine (0.6-1.3) mg/dl Est Cr Clr Drug Dosing ml/min Est GFR ( Amer) Est GFR (Non-Af Amer) BUN/Creatinine Ratio (10-20) Glucose (70-99) mg/dl POC Glucose (other) (70-99) mg/dl Calcium (8.5-10.1) mg/dl POC Ioniz Calcium Corbin (1.12-1.32) mmol/l Magnesium (1.8-2.4) mg/dl Total Bilirubin (0.2-1) mg/dl AST (15-37) U/L ALT (12-78) U/L Alkaline Phosphatase (45-117) U/L Troponin I (0-0.045) ng/ml Total Protein (6.4-8.2) gm/dl Albumin (3.4-5.0) gm/dl Globulin (2.5-4.0) gm/dl Albumin/Globulin Ratio (0.9-2) Specimen Hemolysis Urine Color Dark Yellow Urine Appearance Cloudy A (Clear) Urine pH 5.5 (4.5-7.5) Ur Specific Clayton 1.025 (1.000-1.030) Urine Protein 1+ H (Negative) Urine Glucose (UA) Negative (Negative) Urine Ketones Trace H (Negative) Urine Blood Negative (Negative) Urine Nitrite Negative (Negative) Urine Bilirubin 1+ H (Negative) Urine Urobilinogen Negative (Negative) Ur Leukocyte Esterase Trace H (Negative) Urine WBC (Auto) 5-10 H (0-5) /hpf Urine RBC (Auto) 0-4 (0-4) /hpf U Hyaline Cast (Auto) >30 H (0-5) /lpf U Epithel Cells (Auto) >30 H (0-5) /lpf Urine Bacteria (Auto) Negative (Negative) Ur Renal Epithelial Cell Not Reportable Urine Opiates Screen (Neg) Ur Methadone, Qual (Neg) Urine Barbiturates (Neg) Ur Phencyclidine (PCP) (Neg) U Amphetamin/Meth Scrn (Neg) MDMA (Ecstasy) Screen (Neg) U Benzodiazepines Scrn (Neg) Ur Cocaine Metabolite (Neg) U Marijuana (THC) Screen (Neg) COVID-19 Eval Order SARS-CoV-2 (PCR) (Negative) Influenza Type A (PCR) (Neg) Influenza Type B (PCR) (Neg) RSV (RT-PCR) (Neg) Blood Type Antibody Screen 02/15/21 02/15/21 02/15/21 Range/Units 04:06 04:06 04:10 WBC (4.8-10.8) K/uL RBC (4.2-5.4) M/uL Hgb (12.0-16.0) g/dL POC Hgb 12.6 (12.0-16.0) g/dl Hct (37-47) % POC Hct 37 (37-47) % MCV (80-100) fL MCH (25-34) pg MCHC (32-36) g/dL RDW Std Deviation (36.4-46.3) fL RDW Coeff of Arden (11.5-14.5) % Plt Count (130-400) K/uL MPV (7.4-10.4) fL Immature Gran % (Auto) % Neut % (Auto) % Lymph % (Auto) % Antelope % (Auto) % Eos % (Auto) % Baso % (Auto) % Neut # (Auto) (1.4-6.5) K/uL Lymph # (Auto) (1.2-3.4) K/uL Antelope # (Auto) (0.11-0.59) K/uL Eos # (Auto) (0-0.5) K/uL Baso # (Auto) (0-0.2) K/uL Immature Gran # (Auto) (0.00-0.02) K/uL PT (9.0-12.0) Seconds INR (0.9-1.1) APTT (21.0-31.0) Seconds PTT Ratio POC Sodium 140 (135-144) mmol/L Sodium 139 (136-145) mmol/L POC Potassium 2.9 L (3.3-5.0) mmol/L Potassium 3.0 L (3.5-5.1) mmol/L POC Chloride 99 L (101-112) mmol/L Chloride 105 (98-107) mmol/L Carbon Dioxide 29 (21-32) mmol/L POC Total CO2 28 (24-31) mmol/L Anion Gap 5.0 (3-11) POC Anion Gap 17.0 (16-25) mmol/L POC BUN 17 (7-18) mg/dl BUN 16 (7-18) mg/dl Creatinine 1.00 (0.6-1.2) mg/dl POC Creatinine 0.9 (0.6-1.3) mg/dl Est Cr Clr Drug Dosing 61.8 ml/min Est GFR ( Amer) 64.7 Est GFR (Non-Af Amer) 55.8 BUN/Creatinine Ratio 15.6 (10-20) Glucose 198 H (70-99) mg/dl POC Glucose (other) 199 H (70-99) mg/dl Calcium 8.6 (8.5-10.1) mg/dl POC Ioniz Calcium Corbin 1.10 L (1.12-1.32) mmol/l Magnesium 1.4 L (1.8-2.4) mg/dl Total Bilirubin 0.4 (0.2-1) mg/dl AST 27 (15-37) U/L ALT 24 (12-78) U/L Alkaline Phosphatase 154 H (45-117) U/L Troponin I < 0.015 (0-0.045) ng/ml Total Protein 7.6 (6.4-8.2) gm/dl Albumin 3.7 (3.4-5.0) gm/dl Globulin 3.9 (2.5-4.0) gm/dl Albumin/Globulin Ratio 0.9 (0.9-2) Specimen Hemolysis Urine Color Urine Appearance (Clear) Urine pH (4.5-7.5) Ur Specific Clayton (1.000-1.030) Urine Protein (Negative) Urine Glucose (UA) (Negative) Urine Ketones (Negative) Urine Blood (Negative) Urine Nitrite (Negative) Urine Bilirubin (Negative) Urine Urobilinogen (Negative) Ur Leukocyte Esterase (Negative) Urine WBC (Auto) (0-5) /hpf Urine RBC (Auto) (0-4) /hpf U Hyaline Cast (Auto) (0-5) /lpf U Epithel Cells (Auto) (0-5) /lpf Urine Bacteria (Auto) (Negative) Ur Renal Epithelial Cell Urine Opiates Screen Pos H (Neg) Ur Methadone, Qual Neg (Neg) Urine Barbiturates Neg (Neg) Ur Phencyclidine (PCP) Neg (Neg) U Amphetamin/Meth Scrn Neg (Neg) MDMA (Ecstasy) Screen Pos H (Neg) U Benzodiazepines Scrn Pos H (Neg) Ur Cocaine Metabolite Neg (Neg) U Marijuana (THC) Screen Neg (Neg) COVID-19 Eval Order SARS-CoV-2 (PCR) (Negative) Influenza Type A (PCR) (Neg) Influenza Type B (PCR) (Neg) RSV (RT-PCR) (Neg) Blood Type Antibody Screen 02/15/21 02/15/21 02/15/21 Range/Units 04:12 05:25 05:25 WBC (4.8-10.8) K/uL RBC (4.2-5.4) M/uL Hgb (12.0-16.0) g/dL POC Hgb (12.0-16.0) g/dl Hct (37-47) % POC Hct (37-47) % MCV (80-100) fL MCH (25-34) pg MCHC (32-36) g/dL RDW Std Deviation (36.4-46.3) fL RDW Coeff of Arden (11.5-14.5) % Plt Count (130-400) K/uL MPV (7.4-10.4) fL Immature Gran % (Auto) % Neut % (Auto) % Lymph % (Auto) % Antelope % (Auto) % Eos % (Auto) % Baso % (Auto) % Neut # (Auto) (1.4-6.5) K/uL Lymph # (Auto) (1.2-3.4) K/uL Antelope # (Auto) (0.11-0.59) K/uL Eos # (Auto) (0-0.5) K/uL Baso # (Auto) (0-0.2) K/uL Immature Gran # (Auto) (0.00-0.02) K/uL PT (9.0-12.0) Seconds INR (0.9-1.1) APTT (21.0-31.0) Seconds PTT Ratio POC Sodium (135-144) mmol/L Sodium (136-145) mmol/L POC Potassium (3.3-5.0) mmol/L Potassium (3.5-5.1) mmol/L POC Chloride (101-112) mmol/L Chloride (98-107) mmol/L Carbon Dioxide (21-32) mmol/L POC Total CO2 (24-31) mmol/L Anion Gap (3-11) POC Anion Gap (16-25) mmol/L POC BUN (7-18) mg/dl BUN (7-18) mg/dl Creatinine (0.6-1.2) mg/dl POC Creatinine (0.6-1.3) mg/dl Est Cr Clr Drug Dosing ml/min Est GFR ( Amer) Est GFR (Non-Af Amer) BUN/Creatinine Ratio (10-20) Glucose (70-99) mg/dl POC Glucose (other) (70-99) mg/dl Calcium (8.5-10.1) mg/dl POC Ioniz Calcium Corbin (1.12-1.32) mmol/l Magnesium (1.8-2.4) mg/dl Total Bilirubin (0.2-1) mg/dl AST (15-37) U/L ALT (12-78) U/L Alkaline Phosphatase (45-117) U/L Troponin I (0-0.045) ng/ml Total Protein (6.4-8.2) gm/dl Albumin (3.4-5.0) gm/dl Globulin (2.5-4.0) gm/dl Albumin/Globulin Ratio (0.9-2) Specimen Hemolysis Urine Color Urine Appearance (Clear) Urine pH (4.5-7.5) Ur Specific Clayton (1.000-1.030) Urine Protein (Negative) Urine Glucose (UA) (Negative) Urine Ketones (Negative) Urine Blood (Negative) Urine Nitrite (Negative) Urine Bilirubin (Negative) Urine Urobilinogen (Negative) Ur Leukocyte Esterase (Negative) Urine WBC (Auto) (0-5) /hpf Urine RBC (Auto) (0-4) /hpf U Hyaline Cast (Auto) (0-5) /lpf U Epithel Cells (Auto) (0-5) /lpf Urine Bacteria (Auto) (Negative) Ur Renal Epithelial Cell Urine Opiates Screen (Neg) Ur Methadone, Qual (Neg) Urine Barbiturates (Neg) Ur Phencyclidine (PCP) (Neg) U Amphetamin/Meth Scrn (Neg) MDMA (Ecstasy) Screen (Neg) U Benzodiazepines Scrn (Neg) Ur Cocaine Metabolite (Neg) U Marijuana (THC) Screen (Neg) COVID-19 Eval Order CovFluRsv at [facility] SARS-CoV-2 (PCR) NEGATIVE (Negative) Influenza Type A (PCR) Negative (Neg) Influenza Type B (PCR) Negative (Neg) RSV (RT-PCR) Negative (Neg) Blood Type O Positive Antibody Screen NEGATIVE Imaging Data Attestation: I personally reviewed and interpreted this imaging study as follows: Radiologist's Impression: Head CT 02/15/21 03:44 CT OF THE HEAD WITHOUT CONTRAST CLINICAL HISTORY: Stroke Like Symptoms COMPARISON STUDY: Head CT October 05, 2020. CT DOSE: 1306.28 mGy.cm TECHNIQUE: Helical axial images of the head were obtained without IV contrast. Automated exposure control was utilized for the study. A dose lowering technique was utilized adhering to the principles of ALARA. FINDINGS: No acute intracranial hemorrhage, midline shift or mass effect is present. The ventricular system is unremarkable. The basal cisterns are patent. No extra-axial collections are present. There are no findings to suggest acute dural sinus thrombosis or acute territorial infarct. No significant calvarial abnormalities are present. Visualized portions of the sinuses and mastoid air cells are clear. IMPRESSION: No acute intracranial findings. No change in appearance of the brain. ACT 112: Negative or not required by law. Electronically signed by: Gonsalo Villafana M.D. 02/15/2021 6:28 AM Head CTA 02/15/21 03:44 HEAD CTA HISTORY: Confusion. Stroke Like Symptoms TECHNIQUE: Multiaxial CT images of the head were performed both before and after the intravenous administration of contrast to evaluate the major cerebral vessels. Maximum intensity projection images were also obtained. A dose lowering technique was utilized adhering to the principles of ALARA. COMPARISON: None. FINDINGS: There is no mass, hematoma, midline shift, or acute infarct. Visualized intracranial internal carotid arteries, distal vertebral arteries, and basilar artery are widely patent. There is no significant stenosis, occlusion, or aneurysm seen within the bilateral ACAs, MCAs, or wood milling machine hand. The major dural venous sinuses appear patent. IMPRESSION: No significant stenosis, occlusion, or aneurysm within the [place]. ACT 112: Negative or not required by law. Electronically signed by: Bulmaro Zavaleta M.D. 02/15/2021 7:17 AM Neck CTA 02/15/21 03:44 CT ANGIOGRAPHY OF THE NECK WITH CONTRAST CLINICAL HISTORY: Stroke Like Symptoms COMPARISON STUDY: Cervical spine CT December 14, 2020. Technique: CT angiography of the carotid and vertebral arteries was obtained using [employer] and 3D reconstruction on an independent workstation. NASCET criter ia was utilized. Automated exposure control was utilized for the study. A dose lowering technique was utilized adhering to the principles of ALARA. Findings: Mild emphysema is noted within the lung apices. There is no cervical lymphadenopathy. There is no acute cervical spine fracture. The bilateral common carotid, cervical internal carotid and vertebral arteries are patent. There is mild plaque within the proximal right internal carotid artery without significant stenosis. The right vertebral artery is dominant. No dissection within the major vessels within neck is noted. No aneurysm within the neck is noted. CTA of the head will be reported separately. Left subclavian [id number] is incidentally noted. IMPRESSION: Mild atherosclerotic plaque within the proximal right internal carotid artery. No stenosis or dissection within the major vessels of the neck. ACT 112: Negative or not required by law. Electronically signed by: Gonsalo Villafana M.D. 02/15/2021 6:39 AM MDM Narrative Continuous threat monitoring analyst: Order was placed for continuous threat monitoring analyst. Patient was placed on the threat monitoring analyst. Patient was noted to be in normal sinus rhythm at an initial rate of 70 bpm. The patient is a 71-year-old female who presents today for evaluation of confusion. Patient was found in a neighbor's apartment wandering around. She is intermittently confused and aphasic here. She otherwise has no focal neurological deficits. A work-up was performed and shows no obvious explanation for her symptoms. Patient has a history of admission for similar symptoms which was thought to be due to polypharmacy and drug overdose. During one hospitalization, patient was found with a fentanyl patch in her mouth, suggesting intentional misuse of her medications. She is on multiple medications which in combination could certainly cause these symptoms. Given her continued confusion, I did consult the [facility] who [facility] to evaluate the patient for further care. Impression & Plan Altered mental status Discharge Plan Visit Data Chief Complaint: Confusion Stated Complaint: ALTERED MENTAL STATUS ED Provider: Poppy Bell ED Midlevel Provider: Chelly Turner Discharge Problem: Altered mental status Patient Disposition: Admitted As Inpatient Discharge Instructions Interventions: ED Discharge Assessment Last Done: 02/15/21 08:15 Discharge Problem: Altered mental status Qualifiers: Altered mental status type: unspecified Qualified Code(s): R41.82 - Altered mental status, unspecified
[2021-02-15] MEDS ORDERED: PHARMACIST DISCHARGE MED REC CONSULT PRN (08:41)
[2021-02-15] MEDS ORDERED: NITROGLYCERIN SL 0.4 MG/TAB TAB SL PRN (08:41)
[2021-02-15] MEDS ORDERED: ACETAMINOPHEN 325 MG TAB PO PRN (08:41)
[2021-02-15] MEDS ORDERED: GLUCAGON FOR INJ 1 MG VIAL IM PRN (09:00)
[2021-02-15] MEDS ORDERED: GLUCOSE 10 TABS/TUBE PO PRN (09:00)
[2021-02-15] MEDS ORDERED: GLUCOSE 40% GEL 15 GM TUBE PO PRN (09:00)
[2021-02-15] MEDS ORDERED: DEXTROSE 50% 50 ML SYRINGE IV PRN (09:00)
[2021-02-15] MEDS ORDERED: CARBOHYDRATES FOR HYPOGLYCEMIA PO PRN (09:00)
[2021-02-15 09:11] LABS: Allen Test Pos (Pos); Base Excess ABG 3.6 mEq/L (-9-1.8); HCO3 ABG 27 mmol/L (19-24); PCO2 ABG 38 mmHg (35-46); PO2 ABG 64 mmHg (80-95); pH ABG 7.47 (7.35-7.45)
[2021-02-15] MEDS: SODIUM CHLORIDE 0.9% 1000ML 1,000 ML IV SCH ×2 (09:16→23:11)
[2021-02-15] MEDS ORDERED: EPINEPHRINE 0.3 MG/0.3 ML IM PRN (09:56)
[2021-02-15] MEDS ORDERED: NYSTATIN POWDER 15GM BTL EXT PRN (09:56)
[2021-02-15] MEDS ORDERED: LORazepam 0.5 MG/1 ML VIAL IV PRN (10:00)
--- NOTE | 2021-02-15 10:00 | History and Physical Report ---
DATE OF ADMISSION: 02/15/2021 CHIEF COMPLAINT: Altered mental status. HISTORY OF PRESENT ILLNESS: This is a 71-year-old female with past medical history significant for type 2 diabetes, hyperlipidemia, hypothyroidism, chronic diastolic CHF, hypertension, history of CAD, GERD, history of cervical spondylosis, posttraumatic stress syndrome, idiopathic scoliosis, postpolio syndrome, chronic pain syndrome, failed back surgical syndrome, migraine variant, history of depression, history of non-ST elevated myocardial infarction, generalized anxiety disorder, history of DVT, comes because of altered mental status and some on and off expressive aphasia. The patient was here in the hospital 09/2020 with hypoxia, acute on chronic respiratory failure, thought to be metabolic toxic encephalopathy, thought to be from overdosing of home medications. At that time, she was found to have recurrent DVT and she was started on Eliquis, which the patient says she is taking. History of colitis on CAT scan in the past, but outpatient colonoscopy and endoscopy was unremarkable. She is supposed to use CPAP at bedtime with oxygen at bedtime, as per the patient, she is not using regularly. She also has history, in 04/2020 when she was admitted in the hospital, at that time she had hong clark called for narcotic overdose. She was found to have fentanyl patch in her mouth and at that time, fentanyl patch was weaned off and she was placed on tramadol as needed. It seems the patient recently was started on oxycodone prn for back pain. The patient today around 2:00 a.m., she was found in the neighbor's apartment, confused and EMS was called and she was also on and off having expressive aphasia for the EMS and when they checked her house, she is on multiple medications and oxycodone, which was prescribed recently the whole bottle was empty. The patient says she is supposed to get back surgery in coming February. She denies any headache. Currently, she is alert and awake, can tell her name, knows that she is in the hospital, can tell her date of , but trouble telling current date, on and off she could not express herself and was having word finding difficulty, but denies any headache. Denies any blurred vision or double visions. Denies any runny nose or sore throat or cough. Denies any fevers. Denies any chest pain, no shortness of breath. Denies nausea, denies abdominal pain. She said she moved her bowels 3 days ago and she says has normal bladder movements. She says she is ambulating fine at home and she says she has no family around and she lives alone. She states her appetite is okay and she is eating fine. Denies any dysphagia. Hemodynamics are stable in the ER, saturating okay on 2 liters. ALLERGIES: LATEX, NICKEL, NSAIDS, ADHESIVE TAPES, ASPIRIN. PAST MEDICAL HISTORY: As mentioned above. PAST SURGICAL HISTORY: I and D of the abdominal wall hematoma, arthrodesis of sacroiliac joint, cataract surgery, colonoscopies, EGDs, excision of excessive skin, infraumbilical panniculectomy, spinal fusion x5, back surgeries, appendectomy, ovarian cystectomy, right knee meniscus repair, right rotator cuff repair, injection of the sacroiliac joint, trigger finger release on the right side. MEDICATIONS: The patient is on Imodium 2 mg p.o. q. 4 hours p.r.n., oxycodone 10 mg p.o. q. 6 hours p.r.n., pramipexole, Mirapex 0.125 mg 1 tablet p.o. at bedtime p.r.n., Lasix 40 mg p.o. daily, metformin 500 mg p.o. b.i.d., Klor-Con 20 mEq p.o. b.i.d., gabapentin 600 mg p.o. at bedtime, Protonix 40 mg p.o. daily, Zanaflex 4 mg p.o. b.i.d. p.r.n., duloxetine 60 mg p.o. daily, Ativan 1 mg p.o. at bedtime, levothyroxine 75 mcg p.o. daily, Eliquis 5 mg p.o. b.i.d., amlodipine 20 mg p.o. daily, atorvastatin 40 mg p.o. daily, Coreg 12.5 mg p.o. b.i.d., trazodone 100 mg p.o. at bedtime, buspirone 10 mg p.o. t.i.d. and 1 tablet as needed for anxiety, doxepin 50 mg p.o. at bedtime, hydroxyzine 25 mg p.o. b.i.d. p.r.n., olopatadine 0.2% ophthalmic instill 1 drop into both eyes daily, EpiPen p.r.n., Ativan 0.5 mg p.o. daily p.r.n., promethazine 25 mg p.o. q. 6 hours p.r.n., hydroxyzine 100 mg p.o. at bedtime, Latuda 20 mg p.o. daily, nitroglycerin 0.3 mg sublingual p.r.n., aspirin 81 mg p.o. daily, MiraLax 17 g p.o. daily p.r.n., calcium plus vitamin D 1 tablet b.i.d., Ocuvite 1 tablet p.o. daily. FAMILY HISTORY: Significant for aunt had breast cancer. Father had glaucoma, hypertension; mother had hypertension. Sister has heart disorder. SOCIAL HISTORY: Single. No smoking, no alcohol, no drug use. REVIEW OF SYMPTOMS: As per HPI, could not complete review of systems as patient is somewhat confused. PHYSICAL EXAMINATION: HEENT: Pupils are equal, round, and reactive to light. Oral mucosa moist. Tongue midline. No facial droop. NECK: No JVD, no neck masses. CARDIOVASCULAR: S1, S2 heard, regular rate and rhythm, no murmur, no gallop. RESPIRATORY SYSTEM: Normal AP diameter. No accessory muscle use. No wheezing, no crackles. ABDOMEN: Soft, bowel sounds present, nontender. No distention. CENTRAL NERVOUS SYSTEM: Cranial nerves II-XII grossly intact. Speech, has occasional expressive aphasia. No facial droop. Obeys simple commands. Power 5/5 in all extremities, can lift her lower extremities and hold for a few seconds. No pronator drift. Coordination movements normal. Sensation is intact. Position sense intact. EXTREMITIES: No edema, no erythema. LABORATORY DATA: WBC 10.6, hemoglobin 12.6, hematocrit 35.5, platelets 339. PT 12.5, INR 1, APTT 26.7. Sodium 139, potassium 3, chloride 105, bicarbonate 29, BUN 16, creatinine 1, serum glucose 198, calcium 8.6, magnesium 1.4, total bilirubin 0.4, AST 24, ALT 24, alkaline phosphatase 154. Troponin I less than 0.015. Urinalysis, +1 ketones, +1 bilirubin. Urine toxicology drug screen opiate screen positive, Ecstasy positive and benzodiazepines positive. SARS-CoV-2 PCR negative. Influenza A and B PCR negative, RSV PCR negative. IMAGING: CT of the head, no acute findings. CTA of the neck, mild atherosclerotic plaque within the proximal right internal carotid artery. No stenosis or dissection within the major vessels of the neck. Head CTA, preliminary report, no acute findings. EKG: Poor quality data, interpretation was referred to as accelerated junctional rhythm at a rate of 88, prolonged QT. ASSESSMENT AND PLAN: A 71-year-old female was found to be confused in the neighbor's apartment and having some expressive aphasia and also found to have an empty oxycodone tablet bottle, which was newly prescribed. 1. Altered mental status, ongoing some on and off expressive aphasia, ongoing on and off confusion, could be polypharmacy/drug overdose as patient has history of polypharmacy with toxic encephalopathy in the past. The patient is on lot of centrally acting medications. Recently prescribed oxycodone and the bottle was empty. She is also on gabapentin, hydroxyzine, Ativan, Promethazine, tizanidine, trazodone, and BuSpar. The patient also has history of putting fentanyl patch in her mouth and had code purple in the hospital in the past. We will also rule out stroke with MRI scan, echo, as well speech evaluation, neuro evaluation, PT and OT evaluation. CT of the head and neck and CT scan of the head unremarkable in the ER. We will start on gentle fluids and monitor in the tele floor .Will also follow abg, lactic acid levels and ammonia levels.If MRi scan and further workup ok consider psychiatry consult for drug overdose. 2. History of diabetes. Hold metformin, place on insulin sliding scale. Follow blood sugars, follow HbA1c levels. 3. History of coronary artery disease status post stent. Continue home medications of aspirin, statin and Coreg. 4. History of chronic diastolic congestive heart failure, on Coreg and Lasix. We will monitor for any volume overload. 5. History of generalized anxiety disorder and depression. on duloxetine, BuSpar and Ativan, which we will hold for now until the patient's mental status clears.Also hold qt prolonging drugs for now. 6. History of recurrent deep venous thrombosis, on Eliquis. Will be continue. 7. History of hypomagnesemia and hypokalemia. The patient on potassium supplements at home. We will replace and we will follow the repeat labs. 8.Prolonged QT on EKG. We will follow repeat EKG, will replace electrolytes. Avoid QT prolonging drugs. 9. History of hypotension. Continue amlodipine and Coreg, diuretics. We will monitor blood pressure. 10. History of hyperlipidemia, on statin. 11. History of post traumatic stress disorder, mood disorder, chronic pain, history of concern for narcotic abuse. We will hold the pain meds for now. Continue home medications for mood disorder. 12. Hypothyroidism. Continue Synthroid. 13. History of obstructive sleep apnea. Supposed to use oxygen with CPAP in the nighttime, but patient is not using. We will follow ABG levels. 14. Deep venous thrombosis prophylaxis, on Eliquis. DISPOSITION: Closely monitor in tele floor. Level 1 full code. PT and OT prior to discharge. Social service to help with discharge planning. MICHELLE
[2021-02-15] MEDS: INSULIN ASPART 100 UNITS/ML 3 ML PEN SC SCH ×4 (10:20→21:00)
[2021-02-15] MEDS: ASPIRIN 81 MG ECTAB PO SCH (10:47)
[2021-02-15] MEDS: amLODIPine BESYLATE 5 MG TAB PO SCH (10:47)
[2021-02-15] MEDS: ATORVASTATIN 40 MG TAB PO SCH (10:47)
--- NOTE | 2021-02-15 11:38 | Neurology Consultation ---
Date of Consultation February 15, 2021 Assessment & Plan (1) Acute confusion: 1. poly pharmacy likely cause of confusion 2. no acute abnormalities on MRI silas, CTA head/neck 3. TTE- done but not yet resulted Present on Admission?: Yes Supervising Physician Co-Signing Physician Notes Patient was seen and examined. A 71 year old admitted with transient encephalopathy due to presumed polypharmacy supported by EMS and recent UDS. Patient much improved today. MRI brain reviewed and no evidence of acute intracranial abnormality. Recommend outpatient EEG and follow up with PCP. Please call with any additional questions or concerns. History of Present Illness Reason for Consultation: AMS. expressive aphasia? Requesting Physician: Tre Olivo MD Attending Physician: Tre Olivo MD History of Present Illness Ester is a 71 year old female with PMH -DM2, HLD, hypothyroidism, chronic diastolic CHF, HTN, history of CAD, GERD, cervical spondylosis, PTSD, idiopathic scoliosis, postpolio syndrome, chronic pain syndrome, failed back surgical syndrome, migraine variant, depression, multiple over doses. non-ST RI, GENE, DVT, presents to [facility] 02/15/2020 with altered mental status and some on and off expressive aphasia. she had a recent hospitalization on 09/2020 with hypoxia, acute on chronic respiratory failure, metabolic toxic encephalopathy, thought to be from overdosing of home medications. she was ordered a CPAP at bedtime with oxygen at bedtime but does not use it. She was found in the neighbor's apartment, confused and EMS was called and she was also on and off having expressive aphasia for the EMS. Her medication bottle was empty. Allergies Allergy/AdvReac Type Severity Reaction Status Date / Time latex Allergy Intermediate Rash Verified 10/05/20 21:30 nickel Allergy Intermediate SEVERE Verified 10/05/20 21:30 DERMATITIS NSAIDS (Non-Steroidal Allergy Intermediate HX OF Verified 10/05/20 21:30 Anti-Inflamma BLEEDING ULCERS-TO AVOID adhesive tape AdvReac Intermediate SKIN Verified 10/05/20 21:30 IRRITATION aspirin AdvReac Intermediate bleeding Verified 10/05/20 21:30 ulcers Home Medications Medication Instructions Recorded Confirmed Type atorvastatin [Lipitor] 40 mg PO QAM 12/13/18 02/15/21 History buspirone 10 mg PO TID PRN 12/13/18 02/15/21 History levothyroxine 75 mcg PO DAILYBB 12/13/18 02/15/21 History polyethylene glycol 3350 17 g PO DAILY PRN 05/12/19 10/05/20 History promethazine 25 mg PO Q6H PRN 05/12/19 10/05/20 History Calcium 600 + D(3) 1 cap PO BID 05/23/19 10/05/20 History Ocuvite Adult 50 Plus 1 cap PO QAM 05/23/19 10/05/20 History epinephrine 0.3 mg IM Q3H PRN 05/23/19 10/05/20 History nitroglycerin [Nitrostat] 0.3 mg SUBLINGUAL UD PRN 05/23/19 02/15/21 History olopatadine 1 drp OPB QAM 05/23/19 02/15/21 History pantoprazole 40 mg PO QAM 07/03/19 02/15/21 History Latuda 20 mg PO QPM 08/04/19 02/15/21 History gabapentin 600 mg PO HS 01/30/20 02/15/21 History amlodipine 10 mg PO DAILY 02/27/20 02/15/21 History carvedilol 12.5 mg PO BIDM 02/27/20 02/15/21 History hydroxyzine HCl 25 mg PO BID PRN 04/03/20 02/15/21 History tizanidine 4 mg PO BID PRN 04/03/20 02/15/21 History trazodone 100 mg PO HS 04/03/20 02/15/21 History aspirin 81 mg PO DAILY 10/05/20 10/05/20 History duloxetine 60 mg PO DAILY 10/05/20 02/15/21 History furosemide 20 mg PO DAILY 10/05/20 02/15/21 History lorazepam See Rx Instructions .ROUTE .COMPLEX 10/05/20 02/15/21 History metformin 500 mg PO BIDM 10/05/20 02/15/21 History potassium chloride 40 meq PO DAILY 10/05/20 02/15/21 History apixaban [Eliquis] 5 mg PO UD #74 tab 10/08/20 02/15/21 Rx lidocaine 1 patch TOP DAILY PRN #15 ea 12/14/20 Rx duloxetine 30 mg PO DAILY 02/15/21 02/15/21 History hydroxyzine HCl 50 mg PO HS PRN 02/15/21 02/15/21 History loperamide 2 mg PO QID PRN 02/15/21 02/15/21 History metformin 1,000 mg PO BIDM 02/15/21 02/15/21 History nystatin 1 applic TOPICAL DAILY PRN 02/15/21 02/15/21 History oxycodone 10 mg PO Q6H PRN 02/15/21 02/15/21 History pramipexole 0.125 mg PO HS PRN 02/15/21 02/15/21 History Patient History Medical History Anemia HX OF Anxiety CAD (coronary artery disease) 2017-[facility] to LAD Cervical spondylolysis Chronic heart failure with preserved ejection fraction (HFpEF) Chronic pain Colitis Cyclical vomiting Deep vein thrombosis 4 YEARS AGO Degenerative disc disease Depression Dyslipidemia GI bleed history of. declining anticoagulation due to hx of GIB. Hyperlipidemia Hypertension Hypothyroidism Migraine Mood disorder Myocardial Infarction 2 YEARS AGO Osteoarthritis Post traumatic stress disorder Pulmonary embolism 2 YEARS OLD (UNSURE OF REASON) Restless leg syndrome Scoliosis Surgical History Fusion of spine LUMBAR H/O ovarian cystectomy H/O repair of right rotator cuff H/O spinal fusion "1st surgery in [place], then multiple surgeries Dr. Catherine at [facility]" History of adenoidectomy History of anesthesia reaction WOKE UP IN MIDDLE OF SPINAL SURGERIES History of appendectomy History of cataract surgery LEFT AND RIGHT History of heart artery stent 2017- STENT PLACED AT [facility] (DR. 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 Beliefs That Will Affect Care: None marital status: Single Current Living Situation: Alone current occupational status: retired Other Information That Helps Us Care for You: No Feels Safe at Home: Yes Safety Concerns: Feels Safe At This Time Assistive Devices: Cane, Walker and Wheelchair Review of Systems Review of Systems: All systems reviewed & are unremarkable except as noted in HPI & below Physical Exam Physical Exam: EXAM: Constitutional: appearance normally developed Face: normocephalic and atraumatic Eyes: normal lids, normal conjunctiva Neck: supple Respiratory: normal effort Cardiovascular: normal pulses Abdomen: non distended Skin: no rashes, lesions, or ulcers noted Psychiatric: normal mood and normal affect NEUROLOGIC EXAMINATION: Appearance: no acute distress Orientation: awake, alert and oriented x 3 Mental Status: alert Attention: normal Knowledge: appropriate Language: no aphasia Speech: no dysarthria Cranial Nerves: CN 2 - no visual defect on confrontation and pupils round, equal CN 3, 4, 6 - extra-ocular movements intact CN 5 - facial sensation intact CN 7 - no facial asymmetry CN 8 - intact hearing CN 9, 10 - palate symmetric CN 11 - good shoulder shrug CN 12 - tongue midline Gait: deferred due to back pain Coordination: no ataxia with finger to nose testing Sensory: intact and symmetric to light touch Muscle Tone: normal Muscle exam: No focal weakness Reflexes: toes down going bilaterla Results & Data ([facility]) Vital Signs (Past 12 Hours) Vital Signs Temp Pulse Pulse Resp BP BP Pulse Ox 02/15/21 10:11 88 02/15/21 08:46 36.5 C 90 18 133/82 94 02/15/21 08:44 36.5 C 90 18 133/82 94 02/15/21 07:30 90 12 112/62 95 02/15/21 06:30 89 14 125/70 94 02/15/21 06:16 88 L 02/15/21 06:00 89 16 132/80 94 02/15/21 05:59 88 16 93 02/15/21 05:58 89 16 86 L 02/15/21 05:32 92 H 16 138/76 98 02/15/21 03:48 95 H 19 143/73 H 91 02/15/21 03:36 37 C 98 H 18 203/116 H 94 Laboratory Results Abnormal lab results 02/15/21 02/15/21 02/15/21 Range/Units 04:05 04:06 04:06 Hct 35.5 L (37-47) % RDW Coeff of Arden 14.9 H (11.5-14.5) % Neut # (Auto) 6.73 H (1.4-6.5) K/uL Wilson # (Auto) 1.06 H (0.11-0.59) K/uL ABG pH (7.35-7.45) ABG pO2 (80-95) mmHg ABG HCO3 (19-24) mmol/L ABG Base Excess (-9-1.8) mEq/L POC Potassium (3.3-5.0) mmol/L Potassium 3.0 L (3.5-5.1) mmol/L POC Chloride (101-112) mmol/L Glucose 198 H (70-99) mg/dl POC Glucose (70-99) mg/dl POC Glucose (other) (70-99) mg/dl POC Ioniz Calcium Corbin (1.12-1.32) mmol/l Magnesium 1.4 L (1.8-2.4) mg/dl Alkaline Phosphatase 154 H (45-117) U/L Urine Appearance Cloudy A (Clear) Urine Protein 1+ H (Negative) Urine Ketones Trace H (Negative) Urine Bilirubin 1+ H (Negative) Ur Leukocyte Esterase Trace H (Negative) Urine WBC (Auto) 5-10 H (0-5) /hpf U Hyaline Cast (Auto) >30 H (0-5) /lpf U Epithel Cells (Auto) >30 H (0-5) /lpf Urine Opiates Screen (Neg) MDMA (Ecstasy) Screen (Neg) U Benzodiazepines Scrn (Neg) 02/15/21 02/15/21 02/15/21 Range/Units 04:06 04:10 08:58 Hct (37-47) % RDW Coeff of Arden (11.5-14.5) % Neut # (Auto) (1.4-6.5) K/uL Wilson # (Auto) (0.11-0.59) K/uL ABG pH 7.47 H (7.35-7.45) ABG pO2 64 L (80-95) mmHg ABG HCO3 27 H (19-24) mmol/L ABG Base Excess 3.6 H (-9-1.8) mEq/L POC Potassium 2.9 L (3.3-5.0) mmol/L Potassium (3.5-5.1) mmol/L POC Chloride 99 L (101-112) mmol/L Glucose (70-99) mg/dl POC Glucose (70-99) mg/dl POC Glucose (other) 199 H (70-99) mg/dl POC Ioniz Calcium Corbin 1.10 L (1.12-1.32) mmol/l Magnesium (1.8-2.4) mg/dl Alkaline Phosphatase (45-117) U/L Urine Appearance (Clear) Urine Protein (Negative) Urine Ketones (Negative) Urine Bilirubin (Negative) Ur Leukocyte Esterase (Negative) Urine WBC (Auto) (0-5) /hpf U Hyaline Cast (Auto) (0-5) /lpf U Epithel Cells (Auto) (0-5) /lpf Urine Opiates Screen Pos H (Neg) MDMA (Ecstasy) Screen Pos H (Neg) U Benzodiazepines Scrn Pos H (Neg) 02/15/21 Range/Units 11:31 Hct (37-47) % RDW Coeff of Arden (11.5-14.5) % Neut # (Auto) (1.4-6.5) K/uL Wilson # (Auto) (0.11-0.59) K/uL ABG pH (7.35-7.45) ABG pO2 (80-95) mmHg ABG HCO3 (19-24) mmol/L ABG Base Excess (-9-1.8) mEq/L POC Potassium (3.3-5.0) mmol/L Potassium (3.5-5.1) mmol/L POC Chloride (101-112) mmol/L Glucose (70-99) mg/dl POC Glucose 128 H (70-99) mg/dl POC Glucose (other) (70-99) mg/dl POC Ioniz Calcium Corbin (1.12-1.32) mmol/l Magnesium (1.8-2.4) mg/dl Alkaline Phosphatase (45-117) U/L Urine Appearance (Clear) Urine Protein (Negative) Urine Ketones (Negative) Urine Bilirubin (Negative) Ur Leukocyte Esterase (Negative) Urine WBC (Auto) (0-5) /hpf U Hyaline Cast (Auto) (0-5) /lpf U Epithel Cells (Auto) (0-5) /lpf Urine Opiates Screen (Neg) MDMA (Ecstasy) Screen (Neg) U Benzodiazepines Scrn (Neg) Diagnostic Findings CT head-No acute intracranial findings. No change in appearance of the brain. CTA head- no occlusion in the [facility] CTA neck-Mild atherosclerotic plaque within the proximal right internal carotid artery. No stenosis or dissection within the major vessels of the neck. MRI brain-No acute intracranial abnormality. No acute or subacute infarct.
[2021-02-15 11:56] LABS: BUN Creatinine Ratio 18.2 (10-20); Calcium 8.4 mg/dl (8.5-10.1); Creatinine Clr Calc Pharmacy 87.1 ml/min; Est GFR (African American) 101.6; Est GFR (Non-African American) 87.6; Magnesium 2.1 mg/dl (1.8-2.4); Potassium 2.8 mmol/L (3.5-5.1)
[2021-02-15] MEDS ORDERED: POTASSIUM CHLORIDE CRTAB 20 MEQ TABCR PO ONE (12:41)
--- NOTE | 2021-02-15 13:06 | Electrocardiogram Report ---
Test Reason : Blood Pressure : / mmHG Vent. Rate : 088 BPM Atrial Rate : 073 BPM P-R Int : 000 ms QRS Dur : 080 ms QT Int : 586 ms P-R-T Axes : 000 -20 079 degrees QTc Int : 709 ms Poor data quality, interpretation may be adversely affected Normal sinus rhythm Low voltage QRS Inferior infarct (cited on or before 18-JUN-2019) Cannot rule out Anterior infarct (cited on or before 18-JUN-2019) Abnormal ECG When compared with ECG of 05-OCT-2020 16:51, QT has lengthened Confirmed by Alexx Duarte ([id number]) on 02/15/2021 1:06:07 PM Referred By: REFERRED SELF Confirmed By:Alexx Duarte
--- NOTE | 2021-02-15 14:06 | Magnetic Resonance Report ---
MR brain wo con HISTORY: 71 years-old Female cva? Acute headache with altered mental status COMPARISON: Head CT, CTA head neck of same day, brain MRI 11/07/2012 TECHNIQUE: Multiplanar multisequence MRI the brain was obtained without the use of IV contrast. FINDINGS: No restricted diffusion to suggest acute or subacute infarct. There is no acute intracranial hemorrha ge, midline shift, abnormal extra-axial collection, hydrocephalus or intracranial mass. Age-related i nvolutional changes. Minimal T2/FLAIR hyperintense foci throughout the white matter suggest probable early chronic microvascular ischemic changes. The cerebral venous sinuses and major arterial flow voi ds are patent. Hyperostosis frontalis interna. Mastoid air cells are clear. Calcification of the para nasal sinuses. Prior bilateral lens repair. Unremarkable soft tissues. IMPRESSION: No acute intracranial abnormality. No acute or subacute infarct. ACT 112: Negative or not required by law. The above report was generated using voice recognition software. It may contain grammatical, syntax o r spelling errors. Electronically signed by: Ariel López M.D. 02/15/2021 2:04 PM
[2021-02-15] MEDS: FUROSEMIDE 20 MG TAB PO SCH (14:16)
[2021-02-15] MEDS: POLYETHYLENE (MIRALAX) 17 GM PACK PO SCH (16:01)
[2021-02-15] MEDS ORDERED: HEPARIN 100 UNIT/ML 5ML FLUSH FLUSH PRN (16:43)
[2021-02-15] MEDS: carvediloL 12.5 MG TAB PO SCH (17:38)
[2021-02-15 19:21] LABS: BUN Creatinine Ratio 12.6 (10-20); Calcium 7.8 mg/dl (8.5-10.1); Creatinine Clr Calc Pharmacy 78.7 ml/min; Est GFR (African American) 94.7; Est GFR (Non-African American) 81.7; Magnesium 1.8 mg/dl (1.8-2.4); Phosphorus 2.4 mg/dl (2.5-4.9)
[2021-02-16] MEDS ORDERED: POTASSIUM CHLORIDE CRTAB 20 MEQ TABCR PO STA (06:29)
[2021-02-16] MEDS ORDERED: LEVOTHYROXINE SODIUM 75 MCG TABLET PO SCH (06:30)
[2021-02-16 06:42] LABS: Basophils # (auto) 0.03 K/uL (0-0.2); Basophils % (auto) 0.4 %; Eosinophils # (auto) 0.32 K/uL (0-0.5); Eosinophils % (auto) 4.3 %; Hematocrit (blood only) 35.8 % (37-47); Hemoglobin 12.1 g/dL (12.0-16.0); Immature Granulocytes # (auto) 0.01 K/uL (0.00-0.02); Immature Granulocytes % (auto) 0.1 %; Lymphocytes # (auto) 2.45 K/uL (1.2-3.4); Lymphocytes % (auto) 32.9 %; Mean Corpuscular Hemoglobin 28.5 pg (25-34); Mean Corpuscular Hgb Conc 33.8 g/dL (32-36); Mean Corpuscular Volume 84.2 fL (80-100); Mean Platelet Volume 9.3 fL (7.4-10.4); Monocytes # (auto) 0.92 K/uL (0.11-0.59); Monocytes % (auto) 12.4 %; Neutrophils # (auto) 3.71 K/uL (1.4-6.5); Neutrophils % (auto) 49.9 %; Platelet Count 313 K/uL (130-400); RDW Coefficient of Variation 15.1 % (11.5-14.5); Red Blood Count 4.25 M/uL (4.2-5.4); White Blood Count 7.44 K/uL (4.8-10.8)
--- NOTE | 2021-02-16 06:50 | Hospitalist Progress Note ---
Date of Service February 16, 2021 Assessment & Plan (1) Toxic encephalopathy: A 71-year-old female was found to be confused in the neighbor's apartment and having some expressive aphasia and also found to have an empty oxycodone tablet bottle, which was newly prescribed. 1. Altered mental status, ongoing some on and off expressive aphasia, ongoing on and off confusion. Secondary to polypharmacy/drug overdose as patient has history of polypharmacy with toxic encephalopathy in the past. The patient is on lot of centrally acting medications. Recently prescribed oxycodone and the bottle was empty. She is also on gabapentin, hydroxyzine, Ativan, Promethazine, tizanidine, trazodone, and BuSpar. The patient also has history of putting fentanyl patch in her mouth and had code purple in the hospital in the past. UDS positive for opioids, benzos, ecstasy We will also rule out stroke with MRI scan, echo, as well speech evaluation, neuro evaluation, PT and OT evaluation. Speech eval - patient is currently speaking and swallowing without any difficulty MRI brain-no acute intracranial abnormality. No acute or subacute infarct. Echo -normal LV chamber size with mild concentric LVH. Normal LV systolic function, EF 65 to 70%. No segmental LV wall motion abnormalities are noted. Grade 1 dose of dysfunction. No significant valvular pathology. CT of the head and neck and CT scan of the head unremarkable in the ER. Ammonia level within normal limits. Lactate normal. Patient is clinically much improved already, she is able to speak better, she moves extremities, she understands that she is in the hospital however does not remember how she exactly got here. Neurology was consulted, transient encephalopathy presumed due to a polypharmacy, recommend outpatient EEG and follow-up with PCP. As current workup otherwise unrevealing, obtained psychiatry consult for drug overdose. Per psychiatry - pt to follow up with her providers at [place]. Records will be sent to them. Also recommend to stop Ativan, Neurontin, Hydroxyzine. This was discussed with the pt in detail. Close follow up w/ PCP also recommended. 2. History of diabetes. Hold metformin, place on insulin sliding scale. Follow blood sugars Current HbA1c 6.6%. 3. History of coronary artery disease status post stent. Continue home medications of aspirin, statin and Coreg. 4. History of chronic diastolic congestive heart failure, on Coreg and Lasix. We will monitor for any volume overload. 5. History of generalized anxiety disorder and depression. on duloxetine, BuSpar and Ativan, which we held on admission until the patient's mental status clears.Also hold qt prolonging drugs for now. 6. History of recurrent deep venous thrombosis, on Eliquis. Will continue. 7. Hypomagnesemia and hypokalemia. The patient on potassium supplements at home. We will replace and we will follow the repeat labs. Persistently hypokalemic, continue to closely monitor and replete as needed. 8.Prolonged QT on EKG. We will follow repeat EKG, will replace electrolytes. Avoid QT prolonging drugs. 9. HTN. Continue amlodipine and Coreg, diuretics. We will monitor blood pressure. 10. Hyperlipidemia, on statin. 11. History of post traumatic stress disorder, mood disorder, chronic pain, history of concern for narcotic abuse. Held the pain meds on admission. Continued home medications for mood disorder. 12. Hypothyroidism. Continue Synthroid. 13. Obstructive sleep apnea. Supposed to use oxygen with CPAP in the nighttime, but patient is not using. follow ABG levels. 14. Deep venous thrombosis prophylaxis, on Eliquis. Admission and Anticipated Discharge Date Admission Date: February 15, 2021 Subjective Patient seen in follow-up of encephalopathy, likely secondary to polypharmacy/drug overdose Currently feels well. She is alert and oriented and answering questions appropriately. She has no chest pain, shortness of breath, abd. pain. She is eager to be discharged. Seen by neurology yesterday - no CVA, but likely polypharmacy, given her pres entation and S Psychiatry consulted as well - recommend to follow up w/ providers at [place], records will be sent to them. Review of Systems Review of Systems: All systems reviewed & are unremarkable except as noted in HPI & below Constitutional: no fever and no chills Respiratory: no cough and no dyspnea Cardiovascular: no chest pain and no palpitations Gastrointestinal: no abdominal pain, no nausea and no vomiting Physical Exam Constitutional: WD/WN, vitals as above + obese; no acute distress Eyes: PERRL, conjunctivae normal, anicteric sclerae ENMT: external ear and nose normal, oropharynx normal Neck: normal visual inspection and + thick neck Respiratory: normal respiratory effort, lungs clear to auscultation A uscultation: no crackles, no rhonchi and no wheezes Cardiovascular: RRR, no murmur, no edema Chest (Breasts): Chest: normal inspection of chest Gastrointestinal (Abdomen): Inspection/Auscultation: abdomen normal to inspection, + abdomen distended (mildly) and normal bowel sounds Percussion/Palpation: abdomen soft; abdomen nontender, no guarding and abdomen not rigid Musculoskeletal: no cyanosis or clubbing, extremities motor strength 5/5 Head/Neck/Chest: normocephalic and head atraumatic Skin: no rashes, warm and dry Neurologic: PERRL, EOMI, accommodation nl, no face palsy, no dysarthria moves all extremities Psychiatric: A+Ox3, euthymic affect Genitourinary: no CVA tenderness Lymphatic: no lymphedema Results & Data Results & Data ([facility]) Vital Signs (Past 12 Hours) Vital Signs Temp Pulse Resp BP Pulse Ox 02/16/21 03:46 37.2 C 81 17 129/74 96 02/15/21 23:25 36.7 C 77 20 145/87 H 94 02/15/21 19:41 36.4 C L 82 15 137/83 92 Laboratory Results 02/16/21 02/16/21 02/16/21 Range/Units 07:12 06:26 06:26 WBC (4.8-10.8) K/uL RBC (4.2-5.4) M/uL Hgb (12.0-16.0) g/dL Hct (37-47) % MCV (80-100) fL MCH (25-34) pg MCHC (32-36) g/dL RDW Std Deviation (36.4-46.3) fL RDW Coeff of [place]den (11.5-14.5) % Plt Count (130-400) K/uL MPV (7.4-10.4) fL Immature Gran % (Auto) % Neut % (Auto) % Lymph % (Auto) % [place] % (Auto) % Eos % (Auto) % Baso % (Auto) % Neut # (Auto) (1.4-6.5) K/uL Lymph # (Auto) (1.2-3.4) K/uL [place] # (Auto) (0.11-0.59) K/uL Eos # (Auto) (0-0.5) K/uL Baso # (Auto) (0-0.2) K/uL Immature Gran # (Auto) (0.00-0.02) K/uL ABG pH (7.35-7.45) ABG pCO2 (35-46) mmHg ABG pO2 (80-95) mmHg ABG HCO3 (19-24) mmol/L ABG O2 Saturation (90-95) % ABG Base Excess (-9-1.8) mEq/L Kaleb Test (Pos) Barometric Pressure mm/Hg Oxygen Given Sodium 143 (136-145) mmol/L Potassium 3.2 L (3.5-5.1) mmol/L Chloride 109 H (98-107) mmol/L Carbon Dioxide 28 (21-32) mmol/L Anion Gap 6.0 (3-11) BUN 8 (7-18) mg/dl Creatinine 0.60 (0.6-1.2) mg/dl Est Cr Clr Drug Dosing 95.3 ml/min Est GFR ( Amer) 104.8 Est GFR (Non-Af Amer) 90.4 BUN/Creatinine Ratio 12.5 (10-20) Glucose 140 H (70-99) mg/dl POC Glucose 144 H (70-99) mg/dl Estimat Average Glucose Pending Hemoglobin A1c Pending Lactate (0.4-2.0) mmol/L Calcium 8.2 L (8.5-10.1) mg/dl Phosphorus (2.5-4.9) mg/dl Magnesium 1.9 (1.8-2.4) mg/dl Ammonia (11-32) umol/L Triglycerides 95 (0-150) mg/dl Cholesterol 122 (0-200) mg/dl LDL Cholesterol, Calc 52 mg/dl VLDL Cholesterol, Calc 19 mg/dl HDL Cholesterol 51 mg/dl Cholesterol/HDL Ratio 2 02/16/21 02/15/21 02/15/21 Range/Units 06:26 20:13 18:44 WBC 7.44 (4.8-10.8) K/uL RBC 4.25 (4.2-5.4) M/uL Hgb 12.1 (12.0-16.0) g/dL Hct 35.8 L (37-47) % MCV 84.2 (80-100) fL MCH 28.5 (25-34) pg MCHC 33.8 (32-36) g/dL RDW Std Deviation 46.0 (36.4-46.3) fL RDW Coeff of Arden 15.1 H (11.5-14.5) % Plt Count 313 (130-400) K/uL MPV 9.3 (7.4-10.4) fL Immature Gran % (Auto) 0.1 % Neut % (Auto) 49.9 % Lymph % (Auto) 32.9 % [place] % (Auto) 12.4 % Eos % (Auto) 4.3 % Baso % (Auto) 0.4 % Neut # (Auto) 3.71 (1.4-6.5) K/uL Lymph # (Auto) 2.45 (1.2-3.4) K/uL [place] # (Auto) 0.92 H (0.11-0.59) K/uL Eos # (Auto) 0.32 (0-0.5) K/uL Baso # (Auto) 0.03 (0-0.2) K/uL Immature Gran # (Auto) 0.01 (0.00-0.02) K/uL ABG pH (7.35-7.45) ABG pCO2 (35-46) mmHg ABG pO2 (80-95) mmHg ABG HCO3 (19-24) mmol/L ABG O2 Saturation (90-95) % ABG Base Excess (-9-1.8) mEq/L Kaleb Test (Pos) Barometric Pressure mm/Hg Oxygen Given Sodium 141 (136-145) mmol/L Potassium 3.0 L (3.5-5.1) mmol/L Chloride 106 (98-107) mmol/L Carbon Dioxide 31 (21-32) mmol/L Anion Gap 4.0 (3-11) BUN 9 (7-18) mg/dl Creatinine 0.73 (0.6-1.2) mg/dl Est Cr Clr Drug Dosing 78.7 ml/min Est GFR ( Amer) 94.7 Est GFR (Non-Af Amer) 81.7 BUN/Creatinine Ratio 12.6 (10-20) Glucose 127 H (70-99) mg/dl POC Glucose 99 (70-99) mg/dl Estimat Average Glucose Hemoglobin A1c Lactate (0.4-2.0) mmol/L Calcium 7.8 L (8.5-10.1) mg/dl Phosphorus 2.4 L (2.5-4.9) mg/dl Magnesium 1.8 (1.8-2.4) mg/dl Ammonia (11-32) umol/L Triglycerides (0-150) mg/dl Cholesterol (0-200) mg/dl LDL Cholesterol, Calc mg/dl VLDL Cholesterol, Calc mg/dl HDL Cholesterol mg/dl Cholesterol/HDL Ratio 02/15/21 02/15/21 02/15/21 Range/Units 16:23 11:31 11:12 WBC (4.8-10.8) K/uL RBC (4.2-5.4) M/uL Hgb (12.0-16.0) g/dL Hct (37-47) % MCV (80-100) fL MCH (25-34) pg MCHC (32-36) g/dL RDW Std Deviation (36.4-46.3) fL RDW Coeff of Arden (11.5-14.5) % Plt Count (130-400) K/uL MPV (7.4-10.4) fL Immature Gran % (Auto) % Neut % (Auto) % Lymph % (Auto) % [place] % (Auto) % Eos % (Auto) % Baso % (Auto) % Neut # (Auto) (1.4-6.5) K/uL Lymph # (Auto) (1.2-3.4) K/uL [place] # (Auto) (0.11-0.59) K/uL Eos # (Auto) (0-0.5) K/uL Baso # (Auto) (0-0.2) K/uL Immature Gran # (Auto) (0.00-0.02) K/uL ABG pH (7.35-7.45) ABG pCO2 (35-46) mmHg ABG pO2 (80-95) mmHg ABG HCO3 (19-24) mmol/L ABG O2 Saturation (90-95) % ABG Base Excess (-9-1.8) mEq/L Kaleb Test (Pos) Barometric Pressure mm/Hg Oxygen Given Sodium 141 (136-145) mmol/L Potassium 2.8 L (3.5-5.1) mmol/L Chloride 106 (98-107) mmol/L Carbon Dioxide 29 (21-32) mmol/L Anion Gap 6.0 (3-11) BUN 12 (7-18) mg/dl Creatinine 0.66 D (0.6-1.2) mg/dl Est Cr Clr Drug Dosing 87.1 ml/min Est GFR ( Amer) 101.6 Est GFR (Non-Af Amer) 87.6 BUN/Creatinine Ratio 18.2 (10-20) Glucose 132 H (70-99) mg/dl POC Glucose 118 H 128 H (70-99) mg/dl Estimat Average Glucose Hemoglobin A1c Lactate (0.4-2.0) mmol/L Calcium 8.4 L (8.5-10.1) mg/dl Phosphorus (2.5-4.9) mg/dl Magnesium 2.1 (1.8-2.4) mg/dl Ammonia (11-32) umol/L Triglycerides (0-150) mg/dl Cholesterol (0-200) mg/dl LDL Cholesterol, Calc mg/dl VLDL Cholesterol, Calc mg/dl HDL Cholesterol mg/dl Cholesterol/HDL Ratio 02/15/21 02/15/21 02/15/21 Range/Units 08:58 08:58 08:58 WBC (4.8-10.8) K/uL RBC (4.2-5.4) M/uL Hgb (12.0-16.0) g/dL Hct (37-47) % MCV (80-100) fL MCH (25-34) pg MCHC (32-36) g/dL RDW Std Deviation (36.4-46.3) fL RDW Coeff of Arden (11.5-14.5) % Plt Count (130-400) K/uL MPV (7.4-10.4) fL Immature Gran % (Auto) % Neut % (Auto) % Lymph % (Auto) % [place] % (Auto) % Eos % (Auto) % Baso % (Auto) % Neut # (Auto) (1.4-6.5) K/uL Lymph # (Auto) (1.2-3.4) K/uL [place] # (Auto) (0.11-0.59) K/uL Eos # (Auto) (0-0.5) K/uL Baso # (Auto) (0-0.2) K/uL Immature Gran # (Auto) (0.00-0.02) K/uL ABG pH 7.47 H (7.35-7.45) ABG pCO2 38 (35-46) mmHg ABG pO2 64 L (80-95) mmHg ABG HCO3 27 H (19-24) mmol/L ABG O2 Saturation 93.0 (90-95) % ABG Base Excess 3.6 H (-9-1.8) mEq/L Kaleb Test Pos (Pos) Barometric Pressure 724.2 mm/Hg Oxygen Given RA Sodium (136-145) mmol/L Potassium (3.5-5.1) mmol/L Chloride (98-107) mmol/L Carbon Dioxide (21-32) mmol/L Anion Gap (3-11) BUN (7-18) mg/dl Creatinine (0.6-1.2) mg/dl Est Cr Clr Drug Dosing ml/min Est GFR ( Amer) Est GFR (Non-Af Amer) BUN/Creatinine Ratio (10-20) Glucose (70-99) mg/dl POC Glucose (70-99) mg/dl Estimat Average Glucose Hemoglobin A1c Lactate 2.0 (0.4-2.0) mmol/L Calcium (8.5-10.1) mg/dl Phosphorus (2.5-4.9) mg/dl Magnesium (1.8-2.4) mg/dl Ammonia 18.1 (11-32) umol/L Triglycerides (0-150) mg/dl Cholesterol (0-200) mg/dl LDL Cholesterol, Calc mg/dl VLDL Cholesterol, Calc mg/dl HDL Cholesterol mg/dl Cholesterol/HDL Ratio Medications Administered Current Inpatient Medications Acetaminophen (Acetaminophen 325 Mg Tab) 650 mg PO Q4H PRN PRN Reason: Pain or Fever Stop: 03/17/21 08:40 Amlodipine Besylate (Amlodipine Besylate 5 Mg Tab) 10 mg PO DAILY [facility] Stop: 03/17/21 09:59 Last Admin: 02/15/21 10:47 Dose: 10 mg Documented by: Aspirin (Aspirin 81 Mg Ectab) 81 mg PO DAILY [facility] Stop: 03/17/21 09:59 Last Admin: 02/15/21 10:47 Dose: 81 mg Documented by: Atorvastatin Calcium (Atorvastatin 40 Mg Tab) 40 mg PO QAM [facility] Stop: 03/17/21 09:59 Last Admin: 02/15/21 10:47 Dose: 40 mg Documented by: Carvedilol (Carvedilol 12.5 Mg Tab) 12.5 mg PO BIDM [facility] Stop: 03/17/21 16:59 Last Admin: 02/15/21 17:38 Dose: 12.5 mg Documented by: Dextrose (Dextrose 50% 50 Ml Syringe) 25 - 50 ml IV UD PRN; Protocol PRN Reason: Hypoglycemia Protocol Stop: 03/17/21 08:59 Furosemide (Furosemide 20 Mg Tab) 40 mg PO DAILY [facility] Stop: 03/17/21 08:59 Last Admin: 02/15/21 14:16 Dose: 40 mg Documented by: Glucagon (Glucagon For Inj 1 Mg Vial) 1 mg IM UD PRN; Protocol PRN Reason: Hypoglycemia Protocol Stop: 03/17/21 08:59 Glucose (Glucose 40% Gel 15 Gm Tube) 15 - 30 gm PO UD PRN; Protocol PRN Reason: Hypoglycemia Protocol Stop: 03/17/21 08:59 Glucose (Glucose 10 Tabs/Tube) 4 - 8 tabs PO UD PRN; Protocol PRN Reason: Hypoglycemia Protocol Stop: 03/17/21 08:59 Heparin Sodium (Porcine) (Heparin 100 Unit/Ml 5ml Flush) 5 ml FLUSH PRN PRN PRN Reason: Flush Stop: 03/17/21 16:42 Sodium Chloride (Nss 1000ml) 1,000 mls @ 75 mls/hr IV .[id number] [facility] Stop: 03/17/21 08:59 Last Admin: 02/15/21 23:11 Dose: 75 mls/hr Documented by: Lorazepam (Ativan) 0.5 mg in 1 mls @ 1 mls/min IV Q4H PRN PRN Reason: Anxiety/Agitation Stop: 03/17/21 09:59 Insulin Aspart (Insulin Aspart 100 Units/Ml 3 Ml Pen) 0 units SC ACHS [facility] Stop: 03/17/21 08:40 Last Admin: 02/15/21 21:00 Dose: Not Given Documented by: Levothyroxine Sodium (Levothyroxine Sodium 75 Mcg Tablet) 75 mcg PO DAILYBB [facility] Stop: 03/18/21 06:29 Last Admin: 02/16/21 06:05 Dose: 75 mcg Documented by: Miscellaneous (Carbohydrates For Hypoglycemia ) 15 - 30 gm PO UD PRN PRN Reason: Hypoglycemia Treatment Stop: 03/17/21 08:59 Miscellaneous (Olopatadine 0.2%: Order Awaiting Action) 1 ea N/A QS COLT Stop: 03/17/21 15:59 Last Admin: 02/16/21 00:01 Dose: Not Given Documented by: Miscellaneous Information (Pharmacist Discharge Med Rec Consult) 1 ea N/A UD PRN PRN Reason: Consult Stop: 03/17/21 08:40 Nitroglycerin (Nitroglycerin Sl 0.4 Mg/Tab Tab) 0.4 mg SL UD PRN PRN Reason: Chest Pain Stop: 03/17/21 08:40 Nystatin (Nystatin Powder 15gm Btl) 1 appln EXT DAILY PRN PRN Reason: Rash Stop: 03/17/21 09:55 Pantoprazole Sodium (Pantoprazole 40 Mg Tab) 40 mg PO QAM COLT Stop: 03/18/21 08:59 Polyethylene Glycol (Polyethylene (Miralax) 17 Gm Pack) 17 gm PO DAILY COLT Stop: 03/17/21 13:59 Last Admin: 02/15/21 16:01 Dose: 17 gm Documented by: Potassium Chloride (Potassium Chloride Crtab 20 Meq Tabcr) 40 meq PO DAILY [facility] Stop: 03/18/21 08:59
[2021-02-16 07:01] LABS: BUN Creatinine Ratio 12.5 (10-20); Calcium 8.2 mg/dl (8.5-10.1); Creatinine Clr Calc Pharmacy 95.3 ml/min; Est GFR (African American) 104.8; Est GFR (Non-African American) 90.4; Potassium 3.2 mmol/L (3.5-5.1)
[2021-02-16 07:04] LABS: Magnesium 1.9 mg/dl (1.8-2.4)
[2021-02-16] MEDS: INSULIN ASPART 100 UNITS/ML 3 ML PEN SC SCH ×3 (07:37→17:23)
[2021-02-16] MEDS: FUROSEMIDE 20 MG TAB PO SCH (07:38)
[2021-02-16] MEDS: ASPIRIN 81 MG ECTAB PO SCH (07:38)
[2021-02-16] MEDS: POLYETHYLENE (MIRALAX) 17 GM PACK PO SCH (07:41)
[2021-02-16] MEDS: amLODIPine BESYLATE 5 MG TAB PO SCH (07:41)
[2021-02-16] MEDS: carvediloL 12.5 MG TAB PO SCH ×2 (07:41→17:26)
[2021-02-16] MEDS: ATORVASTATIN 40 MG TAB PO SCH (07:41)
[2021-02-16 08:10] LABS: Estimated Average Glucose 143 mg/dl; Hemoglobin A1C 6.6 % (4.5-5.6)
[2021-02-16] MEDS ORDERED: PANTOprazole 40 MG TAB PO SCH (09:00)
[2021-02-16] MEDS ORDERED: POTASSIUM CHLORIDE CRTAB 20 MEQ TABCR PO SCH (09:00)
[2021-02-16] MEDS: SODIUM CHLORIDE 0.9% 1000ML 1,000 ML IV SCH (12:40)
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
--- NOTE | 2021-02-16 17:14 | Communication Note ---
Date of Service: February 16, 2021 Code 44 attestation: The chart ,labs and imaging studies reviewed. Remains medically stable to be discharged. By CMS guidelines, a determination that the admission or continued stay is not medically necessary has been made by a member of the UR committee and a physician for this hospital stay, therefore a Code 44 will be completed and the Inpatient admission will be changed to outpatient. DR Edis Sotelo Member UR Committee
--- NOTE | 2021-02-17 21:18 | Electrocardiogram Report ---
Test Reason : Blood Pressure : / mmHG Vent. Rate : 085 BPM Atrial Rate : 085 BPM P-R Int : 182 ms QRS Dur : 086 ms QT Int : 316 ms P-R-T Axes : 059 -30 023 degrees QTc Int : 376 ms Normal sinus rhythm Left axis deviation Low voltage QRS Inferior infarct (cited on or before 18-JUN-2019) Abnormal ECG When compared with ECG of 15-FEB-2021 04:55, Minimal criteria for Anterior infarct are no longer Present Nonspecific T wave abnormality now evident in Inferior leads Confirmed by Jasbir Martell ([id number]) on 02/17/2021 9:18:11 PM Referred By: REFERRED SELF Confirmed By:Jasbir Martell
--- NOTE | 2021-02-17 21:46 | Discharge Summary ---
Date of Service February 16, 2021 Admission HPI Per Admitting Provider This is a 71-year-old female with past medical history significant for type 2 diabetes, hyperlipidemia, hypothyroidism, chronic diastolic CHF, hypertension, history of CAD, GERD, history of cervical spondylosis, posttraumatic stress syndrome, idiopathic scoliosis, postpolio syndrome, chronic pain syndrome, failed back surgical syndrome, migraine variant, history of depression, history of non-ST elevated myocardial infarction, generalized anxiety disorder, history of DVT, comes because of altered mental status and some on and off expressive aphasia. The patient was here in the hospital 09/2020 with hypoxia, acute on chronic respiratory failure, thought to be metabolic toxic encephalopathy, thought to be from overdosing of home medications. At that time, she was found to have recurrent DVT and she was started on Eliquis, which the patient says she is taking. History of colitis on CAT scan in the past, but outpatient colonoscopy and endoscopy was unremarkable. She is supposed to use CPAP at bedtime with oxygen at bedtime, as per the patient, she is not using regularly. She also has history, in 04/2020 when she was admitted in the hospital, at that time she had hong clark called for narcotic overdose. She was found to have fentanyl patch in her mouth and at that time, fentanyl patch was weaned off and she was placed on tramadol as needed. It seems the patient recently was started on oxycodone prn for back pain. The patient today around 2:00 a.m., she was found in the neighbor's apartment, confused and EMS was called and she was also on and off having expressive aphasia for the EMS and when they checked her house, she is on multiple medications and oxycodone, which was prescribed recently the whole bottle was empty. The patient says she is supposed to get back surgery in coming February. She denies any headache. Currently, she is alert and awake, can tell her name, knows that she is in the hospital, can tell her date of , but trouble telling current date, on and off she could not express herself and was having word finding difficulty, but denies any headache. Denies any blurred vision or double visions. Denies any runny nose or sore throat or cough. Denies any fevers. Denies any chest pain, no shortness of breath. Denies nausea, denies abdominal pain. She said she moved her bowels 3 days ago and she says has normal bladder movements. She says she is ambulating fine at home and she says she has no family around and she lives alone. She states her appetite is okay and she is eating fine. Denies any dysphagia. Hemodynamics are stable in the ER, saturating okay on 2 liters. Admission Exam Per Admitting Provider HEENT: Pupils are equal, round, and reactive to light. Oral mucosa moist. Tongue midline. No facial droop. NECK: No JVD, no neck masses. CARDIOVASCULAR: S1, S2 heard, regular rate and rhythm, no murmur, no gallop. RESPIRATORY SYSTEM: Normal AP diameter. No accessory muscle use. No wheezing, no crackles. ABDOMEN: Soft, bowel sounds present, nontender. No distention. CENTRAL NERVOUS SYSTEM: Cranial nerves II-XII grossly intact. Speech, has occasional expressive aphasia. No facial droop. Obeys simple commands. Power 5/5 in all extremities, can lift her lower extremities and hold for a few seconds. No pronator drift. Coordination movements normal. Sensation is intact. Position sense intact. EXTREMITIES: No edema, no erythema. Principal Diagnosis Toxic encephalopathy due to polypharmacy Discharge Exam Constitutional WD/WN, vitals as above + obese; no acute distress Eyes PERRL, conjunctivae normal, anicteric sclerae ENMT external ear and nose normal, oropharynx normal Neck normal visual inspection and + thick neck Respiratory normal respiratory effort, lungs clear to auscultation Auscultation: no crackles, no rhonchi and no wheezes Cardiovascular RRR, no murmur, no edema Chest (Breasts) Chest: normal inspection of chest Gastrointestinal (Abdomen) Inspection/Auscultation: abdomen normal to inspection, + abdomen distended (mildly) and normal bowel sounds Percussion/Palpation: abdomen soft; abdomen nontender, no guarding and abdomen not rigid Musculoskeletal no cyanosis or clubbing, extremities motor strength 5/5 Head/Neck/Chest: normocephalic and head atraumatic Skin no rashes, warm and dry Neurologic PERRL, EOMI, accommodation nl, no face palsy, no dysarthria moves all extremities Psychiatric A+Ox3, euthymic affect Genitourinary no CVA tenderness Lymphatic no lymphedema Discharge Data Allergies Allergy/AdvReac Type Severity Reaction Status Date / Time latex Allergy Intermediate Rash Verified 10/05/20 21:30 nickel Allergy Intermediate SEVERE Verified 10/05/20 21:30 DERMATITIS NSAIDS (Non-Steroidal Allergy Intermediate HX OF Verified 10/05/20 21:30 Anti-Inflamma BLEEDING ULCERS-TO AVOID adhesive tape AdvReac Intermediate SKIN Verified 10/05/20 21:30 IRRITATION aspirin AdvReac Intermediate bleeding Verified 10/05/20 21:30 ulcers Consultations 02/15/21 06:03 ED Decision to Admit Stat 02/15/21 08:41 Consult Neurology Routine 02/16/21 06:31 Consult Psychiatry Routine Ordered Studies 02/15/21 03:44 CT angio head w con Urgent IMPRESSION: No significant stenosis, occlusion, or aneurysm within the [place]. CT angio neck with con Urgent IMPRESSION: Mild atherosclerotic plaque within the proximal right internal carotid artery. No stenosis or dissection within the major vessels of the neck. CT head/brain wo con Urgent IMPRESSION: No acute intracranial findings. No change in appearance of the brain. 02/15/21 08:41 MR brain wo con Routine IMPRESSION: No acute intracranial abnormality. No acute or subacute infarct. Hospital Course (1) Toxic encephalopathy: A 71-year-old female was found to be confused in the neighbor's apartment and having some expressive aphasia and also found to have an empty oxycodone tablet bottle, which was newly prescribed. 1. Altered mental status, ongoing some on and off expressive aphasia, ongoing on and off confusion. Secondary to polypharmacy/drug overdose as patient has history of polypharmacy with toxic encephalopathy in the past. The patient is on lot of centrally acting medications. Recently prescribed oxycodone and the bottle was empty. She is also on gabapentin, hydroxyzine, Ativan, Promethazine, tizanidine, trazodone, and BuSpar. The patient also has history of putting fentanyl patch in her mouth and had code purple in the hospital in the past. UDS positive for opioids, benzos, ecstasy We will also rule out stroke with MRI scan, echo, as well speech evaluation, neuro evaluation, PT and OT evaluation. Speech eval - patient is currently speaking and swallowing without any difficulty MRI brain-no acute intracranial abnormality. No acute or subacute infarct. Echo -normal LV chamber size with mild concentric LVH. Normal LV systolic function, EF 65 to 70%. No segmental LV wall motion abnormalities are noted. Grade 1 dose of dysfunction. No significant valvular pathology. CT of the head and neck and CT scan of the head unremarkable in the ER. Ammonia level within normal limits. Lactate normal. Patient is clinically much improved, she is able to speak w/o difficulty, she moves extremities, she understands that she is in the hospital however does not remember how she exactly got here. Neurology was consulted, transient encephalopathy presumed due to a polypharmacy, recommend outpatient EEG and follow-up with PCP. As current workup otherwise unrevealing, obtained psychiatry consult for drug overdose. Per psychiatry - pt to follow up with her providers at [facility]. Records will be sent to them. Also recommend to stop Ativan, Neurontin, Hydroxyzine. This was discussed with the pt in detail. Close follow up w/ PCP also recommended. 2. History of diabetes. Hold metformin, place on insulin sliding scale. Follow blood sugars Current HbA1c 6.6%. 3. History of coronary artery disease status post stent. Continue home medications of aspirin, statin and Coreg. 4. History of chronic diastolic congestive heart failure, on Coreg and Lasix. We will monitor for any volume overload. 5. History of generalized anxiety disorder and depression. on duloxetine, BuSpar and Ativan, which we held on admission until the patient's mental status clears.Also hold qt prolonging drugs for now. 6. History of recurrent deep venous thrombosis, on Eliquis. Will continue. 7. Hypomagnesemia and hypokalemia. The patient on potassium supplements at home. We will replace and we will follow the repeat labs. Persistently hypokalemic, continue to closely monitor and replete as needed. 8.Prolonged QT on EKG. We will follow repeat EKG, will replace electrolytes. Avoid QT prolonging drugs. 9. HTN. Continue amlodipine and Coreg, diuretics. We will monitor blood pressure. 10. Hyperlipidemia, on statin. 11. History of post traumatic stress disorder, mood disorder, chronic pain, history of concern for narcotic abuse. Held the pain meds on admission. Continued home medications for mood disorder. 12. Hypothyroidism. Continue Synthroid. 13. Obstructive sleep apnea. Supposed to use oxygen with CPAP in the nighttime, but patient is not using. follow ABG levels. 14. Deep venous thrombosis prophylaxis, on Eliquis. Total Time Total Time Spent Total Time Spent (In Minutes): 40 Total Time Includes: Examination of the Patient, Discharge Planning, Medication Reconciliation and Communication With Other Providers Discharge Plan Discharge Items Patient Disposition: Home - Self-Care Reason For Visit: AMS Discharge Diagnosis: Toxic encephalopathy due to polypharmacy Activity: Per Instructions section Non-emergency contact: Primary Care Provider and Specialist Call non-emergency contact if: you have any medication questions and your symptoms worsen Follow-up/Referrals: Charanjit Spann MD [Primary Care Provider] - Diet: Carb Consistent or DM2 Addtl Attending Provider Instructions: Follow-up with your primary care doctor within 1 week. You should also follow- up with your providers at [facility]. As discussed with the psychiatrist here, your records will be sent to [facility]. It is recommended that you have somebody close to you help you with medications. It is strongly recommended that you do not take Ativan, Neurontin or Vistaril at this time. Further discuss this with your primary care doctor and your providers at [facility]. It is also recommended that you have a test done, EEG, with neurology in their clinic. You will be contacted about the appointment. Pending Studies at Discharge: No Stand-Alone Forms: My [facility] [employer], Smoking Cessation Medications and DC Order Prescriptions: Continued nitroglycerin [Nitrostat] 0.3 mg Tablet, Sublingual 0.3 mg sublingual UD PRN (Reason: Chest Pain) RF: 0 Calcium 600 + D(3) 600 mg calcium- 200 unit Capsule 1 cap PO BID RF: 0 olopatadine 0.2 % Drops 1 drp OPB QAM RF: 0 epinephrine 0.3 mg/0.3 mL Syringe 0.3 mg IM Q3H PRN (Reason: Allergic Reaction) RF: 0 Ocuvite Adult 50 Plus 250-5-1 mg Capsule 1 cap PO QAM RF: 0 pantoprazole 40 mg tablet,delayed release (DR/EC) 40 mg PO QAM RF: 0 Latuda 20 mg Tablet 20 mg PO QPM RF: 0 carvedilol 12.5 mg tablet 12.5 mg PO BIDM RF: 0 amlodipine 10 mg tablet 10 mg PO DAILY RF: 0 metformin 500 mg Tablet 500 mg PO BIDM RF: 0 aspirin 81 mg Tablet,Chewable 81 mg PO DAILY RF: 0 duloxetine 60 mg Capsule,Delayed Release(Dr/Ec) 60 mg PO DAILY RF: 0 potassium chloride 20 mEq Tablet Extended Release 40 meq PO DAILY RF: 0 furosemide 20 mg tablet 20 mg PO DAILY RF: 0 Eliquis 5 mg Tablet 5 mg PO UD Qty: 74 RF: 0 atorvastatin [Lipitor] 40 mg Tablet 40 mg PO QAM RF: 0 levothyroxine 75 mcg Tablet 75 mcg PO DAILYBB RF: 0 buspirone 10 mg Tablet 10 mg PO TID PRN (Reason: Anxiety) RF: 0 polyethylene glycol 3350 17 gram Powder In Packet 17 g PO DAILY PRN (Reason: Constipation) RF: 0 promethazine 25 mg Tablet 25 mg PO Q6H PRN (Reason: Nausea) RF: 0 tizanidine 4 mg tablet 4 mg PO BID PRN (Reason: Muscle Spasm) RF: 0 trazodone 100 mg Tablet 100 mg PO HS RF: 0 lidocaine 5 % adhesive patch,medicated 1 patch TOP DAILY PRN (Reason: pain) Qty: 15 RF: 0 loperamide 2 mg capsule 2 mg PO QID PRN (Reason: Diarrhea) RF: 0 metformin 1,000 mg tablet 1,000 mg PO BIDM RF: 0 pramipexole 0.125 mg tablet 0.125 mg PO HS PRN (Reason: Restless Leg(S)) RF: 0 nystatin 100,000 unit/gram powder 1 applic TOPICAL DAILY PRN (Reason: Rash) RF: 0 duloxetine 30 mg capsule,delayed release(DR/EC) 30 mg PO DAILY RF: 0 oxycodone 10 mg tablet 10 mg PO Q6H PRN (Reason: Severe Pain (Scale Score 7-10)) RF: 0 Discontinued gabapentin 300 mg capsule 600 mg PO HS RF: 0 lorazepam 0.5 mg Tablet See Rx Instructions .ROUTE .COMPLEX RF: 0 hydroxyzine HCl 25 mg tablet 25 mg PO BID PRN (Reason: Anxiety) RF: 0 hydroxyzine HCl 50 mg tablet 50 mg PO HS PRN (Reason: Sleep) RF: 0 Discharge Orders: Discharge Order (Routine); Ordered 02/16/21 Ordered By: Tre Pineda/Other Patient Handouts: Managing Type 2 Diabetes, Managing Diabetes: The A1C Test Admission Data Admit Date/Time: 02/15/21 07:00 Attending Provider: Tre Olivo Admit Provider: Reyes Miller Primary Care Provider: Maria Ines,Charanjit F. Other Providers: Reyes Miller ; Mina Cerda ; [facility] ; Maribel Santacruz. Other Interventions: Discharge Summary Assessment (RN) Last Done: 02/16/21 17:15
[2021-02-19 18:41] LABS: 7-Aminoclonaz, Confirm NEGATIVE ng/mL (<25); Codeine Urine NEGATIVE ng/mL (<50); Hydro-Alp Ur, GC/MS NEGATIVE ng/mL (<25); Hydrocodone Urine NEGATIVE ng/mL (<50); Hydromor Urine NEGATIVE ng/mL (<50); Hydroxyethylflurazepam, Conf NEGATIVE ng/mL (<50); Hydroxymidazolam Ur, GC/MS NEGATIVE ng/mL (<50); Hydroxytriazolam NEGATIVE ng/mL (<50); Lorazepam, Ur GC/MS >2000 ng/mL (<50); MDA negative; MDEA negative; MDMA (Ecstasy) Urine, Confirm negative; Morphine Urine NEGATIVE ng/mL (<50); Nordiazepam, Confirm NEGATIVE ng/mL (<50); Norhydrocodone Conf Ur NEGATIVE ng/mL (<50); Noroxycodone Urine >10000 ng/mL (<50); Oxazepam Ur, GC/MS 135 ng/mL (<50); Oxycodone Urine 9200 ng/mL (<50); Oxymorph Urine 3000 ng/mL (<50); Temazepam, Confirm 57 ng/mL (<50)
== END 2021-02-16 18:45 | disposition home or self-care (01) ==
LOC: ED 03:24 → 2S 07:00 → INTOOBSV 07:00 → 2S 08:15

== ENCOUNTER 2021-10-31 18:28 | Observation (INO) ==
[2021-10-31 19:15] LABS: Basophils # (auto) 0.06 K/uL (0-0.2); Basophils % (auto) 0.4 %; Eosinophils # (auto) 0.32 K/uL (0-0.5); Eosinophils % (auto) 2.4 %; Hematocrit (blood only) 36.6 % (37-47); Hemoglobin 11.5 g/dL (12.0-16.0); Immature Granulocytes # (auto) 0.03 K/uL (0.00-0.02); Immature Granulocytes % (auto) 0.2 %; Lymphocytes # (auto) 4.53 K/uL (1.2-3.4); Lymphocytes % (auto) 33.7 %; Mean Corpuscular Hemoglobin 26.1 pg (25-34); Mean Corpuscular Hgb Conc 31.4 g/dL (32-36); Mean Platelet Volume 9.6 fL (7.4-10.4); Monocytes # (auto) 1.24 K/uL (0.11-0.59); Monocytes % (auto) 9.2 %; Neutrophils # (auto) 7.27 K/uL (1.4-6.5); Neutrophils % (auto) 54.1 %; Platelet Count 288 K/uL (130-400); RDW Coefficient of Variation 19.1 % (11.5-14.5); RDW Standard Deviation 57.9 fL (36.4-46.3); Red Blood Count 4.41 M/uL (4.2-5.4); White Blood Count 13.45 K/uL (4.8-10.8)
--- NOTE | 2021-10-31 19:16 | Emergency Department Note ---
Impression & Plan COVID-19, Weakness, Chest pain, Breathlessness ED Provider Note Provider: Alejandro Garcia MD DATE OF SERVICE: 10/31/2021 CHIEF COMPLAINT: Shortness of breath HISTORY OF PRESENT ILLNESS: Patient is a 71-year-old female with a past medical history including migraine, VTE on Eliquis, CAD/CHF, and mood disorder presenting here today reporting cough that developed approximately 6 weeks ago. Initially she states she was treated for pneumonia and chronic bronchitis. Patient states she is a non-smoker. Tested positive for COVID with her primary care doctor's office on October 22. Did travel to [place] at the beginning of September. Denies significant leg swelling. Reports significant cough and some shortness of breath tach with exertion. Denies any trauma. Reports starting yesterday some sharp pain in her right chest worsened today that is worse with cough or deep breath here. Patient states compliance with her home Eliquis and other medications. Has been using some Tylenol as well as some Mucinex with codeine to help with cough. Patient denies any significant nausea or abdominal pain. She reports diffuse body aches and some headaches. Did complete a course of prednisone as well as Levaquin/doxycycline yesterday per her reports. Patient reports she has been vaccinated for COVID and did have the COVID booster vaccination as well. REVIEW OF SYSTEMS: A total of 10 review of systems was obtained and negative except as stated above in the HPI. PAST MEDICAL HISTORY: As noted above MEDICATIONS: Reviewed home medication list SOCIAL HISTORY: Non-smoker, lives at home alone PHYSICAL EXAM: GENERAL: alert and oriented in no acute distress on stretcher fatigued in a ppearance Head: normocephalic and atraumatic EYES: No injection, discharge or icterus. NECK: Trachea midline. LUNGS: Airway patent. No retractions. Breath sounds clear HEART: Regular rate and rhythm. No chest wall tenderness with left upper chest wall port in place. ABDOMEN: Soft and non-tender, without guarding or rebound. SKIN: Acyanotic, warm, dry, without rashes EXTREMITIES: Without swelling, tenderness or deformity NEUROLOGICAL: No focal deficits. No aphasia. No facial droop or slurred speech. Normal strength and tone in the extremities. Gross sense intact in all 4 extremities. Ambulates with limp centered on the right leg and appears quite unsteady. EK bpm normal sinus rhythm. No PVC or PAC. No acute ST segment elevation noted inferior T wave changes. QTc 457. Compared to previous from October 11, 2021 similar. CONTINUOUS CARDIAC MONITORING: was ordered and showed a heart rate of 70s to 90s bpm in normal sinus rhythm Patient's laboratory studies and imaging reviewed. Differential includes Infection, dehydration, metabolic abnormality, hypo/hyperglycemia, electrolyte disturbance, anemia, hypoxia, cardiac sources, intracerebral event, toxicologic, neurologic, as well as other pathologies. IMPRESSION/MEDICAL DECISION MAKING: Patient satting in the low 90s. No history of smoking. Recently completed course of outpatient prednisone and Levaquin/doxycycline. Given some Tylenol and Hycodan here to help with symptoms. Chest x-ray without evidence of significant classic pneumonia findings per radiology report. EKG and basic labs sent as well as troponin. EKG without significant acute ischemic changes and troponin is negative. Symptoms ongoing since yesterday and low suspicion this represents acute ACS. ?Musculoskeletal chest pain related to the coughing she has been experiencing. Patient is anticoagulant Eliquis lower suspicion for PE. Basic labs do show a slight leukocytosis of 13.4 likely related to her recent steroid burst. Did complete a course of steroids just over the past week or so and low suspicion for bacterial superinfection at this time. No severe electrolyte abnormality noted. Renal function is stable. No evidence of acute transaminitis or pancreatitis. Procalcitonin sent and again further confirm no significant bacterial component. Initial triage blood pressure was low with 80 systolic but otherwise in the room has been normotensive. Given her history wish to avoid fluid overload. Patient does live alone and appears significantly weak and fatigued. Ambulated in the room and the patient desaturates from 90 to 92% on room air into the high 80s with walking. Recovers over the course of 30 seconds to a minute on resting. Unsteady on her feet. Will give a dose of dexamethasone. Discussed with her and recommended further observation given her fatigue and transient hypoxia. The hospitalist to be consulted. DIAGNOSIS: COVID-19, chest pain, shortness of breath, weakness DISPOSITION: Hospitalist will evaluate Patient was agreeable with this plan. Past Med/Surg History Medical History Anemia HX OF Anxiety CAD (coronary artery disease) 2017-[facility] to LAD Cervical spondylolysis Chronic heart failure with preserved ejection fraction (HFpEF) Chronic pain Colitis Cyclical vomiting Deep vein thrombosis 4 YEARS AGO Degenerative disc disease Depression Dyslipidemia GI bleed history of. declining anticoagulation due to hx of GIB. Hyperlipidemia Hypertension Hypothyroidism Migraine Mood disorder Myocardial Infarction 2 YEARS AGO Osteoarthritis Post traumatic stress disorder Pulmonary embolism 2 YEARS OLD (UNSURE OF REASON) Restless leg syndrome Scoliosis Surgical History Fusion of spine LUMBAR H/O ovarian cystectomy H/O repair of right rotator cuff H/O spinal fusion "1[place] in [place], then [place] [facility] [place] History of adenoidectomy History of anesthesia reaction WOKE UP IN MIDDLE OF SPINAL SURGERIES History of appendectomy History of cataract surgery LEFT AND RIGHT History of heart artery stent 2017- STENT PLACED AT [facility] (DR. 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 Beliefs That Will Affect Care: None marital status: Single Current Living Situation: Alone current occupational status: retired Feels Safe at Home: Yes Assistive Devices: Walker Allergies Allergies Allergy/AdvReac Type Severity Reaction Status Date / Time latex Allergy Intermediate Rash Verified 10/31/21 20:12 nickel Allergy Intermediate SEVERE Verified 10/31/21 20:12 DERMATITIS NSAIDS (Non-Steroidal Allergy Intermediate HX OF Verified 10/31/21 20:12 Anti-Inflamma BLEEDING ULCERS-TO AVOID adhesive tape AdvReac Intermediate SKIN Verified 10/31/21 20:12 IRRITATION aspirin AdvReac Intermediate bleeding Verified 10/31/21 20:12 ulcers Home Meds Home Medications Medication Instructions Recorded Confirmed atorvastatin 40 mg tablet (Lipitor) 40 mg PO QAM 12/13/18 10/31/21 buspirone 10 mg tablet 10 mg PO TID PRN 12/13/18 10/31/21 levothyroxine 75 mcg tablet 75 mcg PO DAILYBB 12/13/18 10/31/21 polyethylene glycol 3350 17 gram 17 g PO DAILY PRN 05/12/19 10/31/21 oral powder packet promethazine 25 mg tablet 25 mg PO Q6H PRN 05/12/19 10/31/21 calcium carbonate 600 mg-vitamin 1 cap PO BID 05/23/19 10/31/21 D3 5 mcg (200 unit) capsule (Calcium 600 + D(3)) epinephrine 0.3 mg/0.3 mL 0.3 mg IM Q3H PRN 05/23/19 10/31/21 injection syringe nitroglycerin 0.3 mg sublingual 0.3 mg SUBLINGUAL UD PRN 05/23/19 10/31/21 tablet (Nitrostat) olopatadine 0.2 % eye drops 1 drp OPB QAM 05/23/19 10/31/21 vit C,E,zinc,copper-ryhze7p 250 1 cap PO QAM 05/23/19 10/31/21 mg-lutein 5 mg-zeaxanthin 1 mg capsule (Ocuvite Adult 50 Plus) pantoprazole 40 mg tablet,delayed 40 mg PO QAM 07/03/19 10/31/21 release amlodipine 10 mg tablet 10 mg PO DAILY 02/27/20 10/31/21 carvedilol 12.5 mg tablet 12.5 mg PO BIDM 02/27/20 10/31/21 tizanidine 4 mg tablet 4 mg PO BID PRN 04/03/20 10/31/21 trazodone 100 mg tablet 200 mg PO HS 04/03/20 10/31/21 duloxetine 60 mg capsule,delayed 60 mg PO DAILY 10/05/20 10/31/21 release furosemide 20 mg tablet 40 mg PO DAILY 10/05/20 10/31/21 metformin 500 mg tablet 500 mg PO BIDM 10/05/20 10/31/21 potassium chloride 20 mEq 40 meq PO DAILY 10/05/20 10/31/21 tablet,extended release loperamide 2 mg capsule 2 mg PO QID PRN 02/15/21 10/31/21 nystatin 100,000 unit/gram topical 1 applic TOPICAL DAILY PRN 02/15/21 10/31/21 powder apixaban 5 mg tablet (Eliquis) 5 mg PO BID 10/11/21 10/31/21 prednisone 10 mg tablet 0 mg PO DAILY 10/31/21 10/31/21 Previous Rx's Medication Instructions Recorded benzonatate 100 mg capsule 100 mg PO TID PRN #20 cap 10/11/21 Results & Data (ED) Vital Signs Vital Signs - 24 hr 10/31/21 18:36 10/31/21 20:41 10/31/21 22:00 Temperature 37.0 C Temperature Source Skin Pulse Rate 79 Pulse Rate [Apical] 66 69 Respiratory Rate 18 20 23 Respiratory Effort / Characteristics Blood Pressure 80/54 L Blood Pressure [Left Arm] 122/66 106/66 Blood Pressure Mean 62 Blood Pressure Mean [Left Arm] 84 79 Pulse Oximetry 92 92 91 Oxygen Delivery Method Room Air Room Air Room Air Oxygen Flow Rate Sepsis Recent Fever Within 48 Hours No Sepsis New/Unexplained Change in Mental Status No Sepsis Action Taken by Nursing No Action Required Oxygen Flow Rate - Titration Pulse Oximetry Post Tiitration 10/31/21 22:44 11/01/21 00:00 11/01/21 00:36 Temperature Temperature Source Pulse Rate Pulse Rate [Apical] 71 70 Respiratory Rate 20 22 Respiratory Effort / Characteristics Spontaneous Blood Pressure Blood Pressure [Left Arm] 141/68 H Blood Pressure Mean Blood Pressure Mean [Left Arm] 92 Pulse Oximetry 94 87 L 95 Oxygen Delivery Method Room Air Room Air Nasal Cannula Nasal Cannula Oxygen Flow Rate 2 Sepsis Recent Fever Within 48 Hours Sepsis New/Unexplained Change in Mental Status Sepsis Action Taken by Nursing Oxygen Flow Rate - Titration 2 Pulse Oximetry Post Tiitration 94 Laboratory Data Result diagrams: 10/31/21 19:05 10/31/21 19:05 Lab Results 10/31/21 10/31/21 10/31/21 Range/Units 19:05 19:05 19:05 WBC 13.45 H (4.8-10.8) K/uL RBC 4.41 (4.2-5.4) M/uL Hgb 11.5 L (12.0-16.0) g/dL Hct 36.6 L (37-47) % MCV 83.0 (80-100) fL MCH 26.1 (25-34) pg MCHC 31.4 L (32-36) g/dL RDW Std Deviation 57.9 H (36.4-46.3) fL RDW Coeff of [place]den 19.1 H (11.5-14.5) % Plt Count 288 (130-400) K/uL MPV 9.6 (7.4-10.4) fL Immature Gran % (Auto) 0.2 % Neut % (Auto) 54.1 % Lymph % (Auto) 33.7 % Page % (Auto) 9.2 % Eos % (Auto) 2.4 % Baso % (Auto) 0.4 % Neut # (Auto) 7.27 H (1.4-6.5) K/uL Lymph # (Auto) 4.53 H (1.2-3.4) K/uL Page # (Auto) 1.24 H (0.11-0.59) K/uL Eos # (Auto) 0.32 (0-0.5) K/uL Baso # (Auto) 0.06 (0-0.2) K/uL Immature Gran # (Auto) 0.03 H (0.00-0.02) K/uL Sodium 142 (136-145) mmol/L Potassium 3.4 L (3.5-5.1) mmol/L Chloride 102 (98-107) mmol/L Carbon Dioxide 33 H (21-32) mmol/L Anion Gap 7 (3-11) BUN 19 (6-23) mg/dl Creatinine 0.73 (0.6-1.2) mg/dl Est Cr Clr Drug Dosing Not Reportable Est GFR ( Amer) 94.7 ml/min Est GFR (Non-Af Amer) 81.7 ml/min BUN/Creatinine Ratio 26.0 H (10-20) Glucose 140 H (70-99) mg/dl Calcium 8.8 (8.5-10.1) mg/dl Magnesium (1.7-2.4) mg/dl Total Bilirubin 0.6 (0.2-1.0) mg/dl AST 13 (13-39) U/L ALT 14 (7-52) U/L Alkaline Phosphatase 90 (34-104) U/L Troponin I < 0.03 (0-0.04) ng/ml Total Protein 6.3 (6.0-8.3) gm/dl Albumin 3.7 (3.4-5.0) gm/dl Globulin 2.6 (2.5-4.0) gm/dl Albumin/Globulin Ratio 1.4 (0.9-2) Lipase 25 (11-82) U/L Procalcitonin < 0.05 (0-0.5) ng/ml 10/31/21 Range/Units 19:05 WBC (4.8-10.8) K/uL RBC (4.2-5.4) M/uL Hgb (12.0-16.0) g/dL Hct (37-47) % MCV (80-100) fL MCH (25-34) pg MCHC (32-36) g/dL RDW Std Deviation (36.4-46.3) fL RDW Coeff of [place]den (11.5-14.5) % Plt Count (130-400) K/uL MPV (7.4-10.4) fL Immature Gran % (Auto) % Neut % (Auto) % Lymph % (Auto) % Page % (Auto) % Eos % (Auto) % Baso % (Auto) % Neut # (Auto) (1.4-6.5) K/uL Lymph # (Auto) (1.2-3.4) K/uL Page # (Auto) (0.11-0.59) K/uL Eos # (Auto) (0-0.5) K/uL Baso # (Auto) (0-0.2) K/uL Immature Gran # (Auto) (0.00-0.02) K/uL Sodium (136-145) mmol/L Potassium (3.5-5.1) mmol/L Chloride (98-107) mmol/L Carbon Dioxide (21-32) mmol/L Anion Gap (3-11) BUN (6-23) mg/dl Creatinine (0.6-1.2) mg/dl Est Cr Clr Drug Dosing Est GFR ( Amer) ml/min Est GFR (Non-Af Amer) ml/min BUN/Creatinine Ratio (10-20) Glucose (70-99) mg/dl Calcium (8.5-10.1) mg/dl Magnesium 1.7 (1.7-2.4) mg/dl Total Bilirubin (0.2-1.0) mg/dl AST (13-39) U/L ALT (7-52) U/L Alkaline Phosphatase (34-104) U/L Troponin I (0-0.04) ng/ml Total Protein (6.0-8.3) gm/dl Albumin (3.4-5.0) gm/dl Globulin (2.5-4.0) gm/dl Albumin/Globulin Ratio (0.9-2) Lipase (11-82) U/L Procalcitonin (0-0.5) ng/ml Administered Medications Sodium Chloride (1/2 Nss) 1,000 mls @ 80 mls/hr IV .[id number] STA Stop: 11/01/21 12:26 Last Admin: 11/01/21 00:43 Dose: 80 mls/hr Documented by: [id number] Tramadol HCl (Tramadol Hcl 50 Mg Tablet) 25 mg PO Q4H PRN PRN Reason: Pain Stop: 12/01/21 00:48 Last Admin: 11/01/21 01:13 Dose: 25 mg Documented by: [id number] Discontinued Medications Benzonatate (Benzonatate 100 Mg Capsule) 100 mg PO NOW STA Stop: 10/31/21 21:54 Last Admin: 10/31/21 22:28 Dose: 100 mg Documented by: [id number] Dexamethasone Sodium Phosphate (DexamethasonePf 10 Mg/Ml Vial) 6 mg IV NOW ONE Stop: 10/31/21 20:49 Last Admin: 10/31/21 21:19 Dose: 6 mg Documented by: [id number] Hydrocodone Bit/Homatropine Methylb (Hydrocodone/Homatropine Syrup 5mg/1.5mg 5ml Udp) 5 ml PO NOW STA Stop: 10/31/21 19:45 Last Admin: 10/31/21 20:03 Dose: 5 ml Documented by: [id number] Acetaminophen (Ofirmev) 1,000 mg in 100 mls @ 400 mls/hr IV NOW STA Stop: 10/31/21 19:57 Last Infusion: 10/31/21 21:19 Dose: 0 mls/hr Documented by: [id number] Admin: 10/31/21 20:03 Dose: 400 mls/hr Documented by: [id number] Levalbuterol HCl (Levalbuterol Tartrate 15 Gm Hfa.Aer.Ad) 2 puffs INH NOW STA Stop: 10/31/21 21:49 Last Admin: 10/31/21 22:44 Dose: 2 puffs Documented by: [id number] Potassium Chloride (Potassium Chloride Crtab 20 Meq Tabcr) 40 meq PO NOW STA Stop: 10/31/21 21:22 Last Admin: 10/31/21 21:51 Dose: 40 meq Documented by: [id number] Imaging Data Radiologist's Impression: Chest X-Ray 10/31/21 18:41 SINGLE VIEW CHEST CLINICAL HISTORY: Atypical chest pain. FINDINGS: An AP, portable, upright chest radiograph is compared to chest x-ray and chest CT dated 10/11/2021. The examination is degraded by portable technique and patient rotation. Apical lordotic positioning. A left subclavian central venous infusion port is unchanged in position. The heart is enlarged noting ath erosclerotic calcification of the thoracic aorta. The pulmonary vasculature is noncongested. Emphysema and chronic interstitial thickening is similar to previous. Volume loss with basilar scarring/atelectasis is again seen at the left lung base. No airspace consolidation typical for pneumonia or large pleural effusion is identified. Scattered calcified granulomas are again noted. No pneumothorax is seen. The skeletal structures are osteopenic. The bony thorax is grossly intact. IMPRESSION: 1. Cardiomegaly and emphysema with chronic parenchymal changes as above. 2. No acute cardiopulmonary abnormality is identified. ACT 112: Negative or not required by law. Electronically signed by: Ivan Smith M.D. 10/31/2021 7:15 PM Discharge Plan Visit Data Chief Complaint: Illness Stated Complaint: SOB, (COVID +) ED Provider: Alejandro Garcia Discharge Problem: COVID-19, Weakness, Chest pain, Breathlessness Patient Disposition: Being Evaluated by Hospitalist Forms Stand Alone Forms: My [facility] Prescriptions Prescriptions: No Action nitroglycerin [Nitrostat] 0.3 mg Tablet, Sublingual 0.3 mg sublingual UD PRN (Reason: Chest Pain) RF: 0 Calcium 600 + D(3) 600 mg calcium- 200 unit Capsule 1 cap PO BID RF: 0 olopatadine 0.2 % Drops 1 drp OPB QAM RF: 0 epinephrine 0.3 mg/0.3 mL Syringe 0.3 mg IM Q3H PRN (Reason: Allergic Reaction) RF: 0 Ocuvite Adult 50 Plus 250-5-1 mg Capsule 1 cap PO QAM RF: 0 pantoprazole 40 mg tablet,delayed release (DR/EC) 40 mg PO QAM RF: 0 carvedilol 12.5 mg tablet 12.5 mg PO BIDM RF: 0 amlodipine 10 mg tablet 10 mg PO DAILY RF: 0 metformin 500 mg Tablet 500 mg PO BIDM RF: 0 duloxetine 60 mg Capsule,Delayed Release(Dr/Ec) 60 mg PO DAILY RF: 0 potassium chloride 20 mEq Tablet Extended Release 40 meq PO DAILY RF: 0 furosemide 20 mg tablet 40 mg PO DAILY RF: 0 atorvastatin [Lipitor] 40 mg Tablet 40 mg PO QAM RF: 0 levothyroxine 75 mcg Tablet 75 mcg PO DAILYBB RF: 0 buspirone 10 mg Tablet 10 mg PO TID PRN (Reason: Anxiety) RF: 0 polyethylene glycol 3350 17 gram Powder In Packet 17 g PO DAILY PRN (Reason: Constipation) RF: 0 promethazine 25 mg Tablet 25 mg PO Q6H PRN (Reason: Nausea) RF: 0 tizanidine 4 mg tablet 4 mg PO BID PRN (Reason: Muscle Spasm) RF: 0 trazodone 100 mg Tablet 200 mg PO HS RF: 0 loperamide 2 mg capsule 2 mg PO QID PRN (Reason: Diarrhea) RF: 0 nystatin 100,000 unit/gram powder 1 applic TOPICAL DAILY PRN (Reason: Rash) RF: 0 Eliquis 5 mg tablet 5 mg PO BID RF: 0 benzonatate 100 mg capsule 100 mg PO TID PRN (Reason: cough) Qty: 20 RF: 0 prednisone 10 mg tablet 0 mg PO DAILY RF: 0 Referrals Referrals: Chitra Dominguez DO [Primary Care Provider] -
--- NOTE | 2021-10-31 19:16 | XRay Report ---
SINGLE VIEW CHEST CLINICAL HISTORY: Atypical chest pain. FINDINGS: An AP, portable, upright chest radiograph is compared to chest x-ray and chest CT dated . The examination is degraded by portable technique and patient rotation. Apical lordotic posi tioning. A left subclavian central venous infusion port is unchanged in position. The heart is enlarg ed noting atherosclerotic calcification of the thoracic aorta. The pulmonary vasculature is nonconges марина. Emphysema and chronic interstitial thickening is similar to previous. Volume loss with basilar s carring/atelectasis is again seen at the left lung base. No airspace consolidation typical for pneumo bernice or large pleural effusion is identified. Scattered calcified granulomas are again noted. No pneum othorax is seen. The skeletal structures are osteopenic. The bony thorax is grossly intact. IMPRESSION: 1. Cardiomegaly and emphysema with chronic parenchymal changes as above. 2. No acute cardiopulmonary abnormality is identified. ACT 112: Negative or not required by law. Electronically signed by: Ivan Smith M.D. 10/31/2021 7:15 PM
[2021-10-31 19:37] LABS: Troponin I < 0.03 ng/ml (0-0.04)
[2021-10-31] MEDS ORDERED: ACETAMINOPHEN 1,000 MG/100 ML VIAL IV STA (19:43)
[2021-10-31] MEDS ORDERED: HYDROcodone/HOMATROPINE SYRUP 5MG/1.5MG 5ML UDP PO STA (19:44)
[2021-10-31 19:50] LABS: Alanine Aminotransferase 14 U/L (7-52); Albumin Globulin Ratio 1.4 (0.9-2); Albumin Level 3.7 gm/dl (3.4-5.0); Alkaline Phosphatase 90 U/L (34-104); Anion Gap 7 (3-11); Aspartate Aminotransferase 13 U/L (13-39); Bilirubin,Total 0.6 mg/dl (0.2-1.0); Blood Urea Nitrogen 19 mg/dl (6-23); Calcium 8.8 mg/dl (8.5-10.1); Carbon Dioxide 33 mmol/L (21-32); Chloride 102 mmol/L (98-107); Est GFR (African American) 94.7 ml/min; Est GFR (Non-African American) 81.7 ml/min; Globulin 2.6 gm/dl (2.5-4.0); Glucose 140 mg/dl (70-99); Lipase 25 U/L (11-82); Potassium 3.4 mmol/L (3.5-5.1); Sodium 142 mmol/L (136-145); Total Protein 6.3 gm/dl (6.0-8.3)
[2021-10-31] MEDS ORDERED: dexAMETHasone**PF** 10 MG/ML VIAL IV ONE (20:48)
[2021-10-31] MEDS ORDERED: POTASSIUM CHLORIDE CRTAB 20 MEQ TABCR PO STA (21:21)
[2021-10-31] MEDS ORDERED: LEVALBUTEROL TARTRATE 15 GM HFA.AER.AD INH STA (21:48)
--- NOTE | 2021-10-31 21:50 | History & Physical Report ---
Date of Service October 31, 2021 Assessment & Plan (1) Pneumonia due to COVID-19 virus: Plan: severe with documented lowest O2 sats of 91% RA at the ER hx HOLLY, CPAP intolerance, probable OHS given hypercapnia on ABGs from prior admissions. Recurrent DVT on Eliquis hx CAD sp stenting Chronic diastolic heart failure (EF 55 to 59%, TTE 2019), patient euvolemic to dry. HTN, stable hyperlipidemia on statin Rx PTSD/mood disorder hx post polio syndrome/scoliosis as per records chronic pain, off home narcotics secondary to drug misuse. DM2 on oral medications, well-controlled as of recent hemoglobin A1c of 7 last July 2021 Chronic anemia, hemoglobin at baseline Hypothyroidism, euthyroid as of recent outpatient TSH Hypokalemia secondary to home diuretic Rx OBS GMF Decadron for severe COVID-19 pneumonia MDI as needed given expiratory wheezes on exam Replace potassium, hold home diuretic until patient euvolemic Basal insulin, ISS BG goal [id number], carb count coverage, update hemoglobin A1c DVT prophylaxis. [employer] Full code Text document was generated using PureHistory voice recognition software. It may contain grammatical or spelling errors. Kindly contact undersigned for clarification of any documentation item in question. History of Present Illness Chief Complaint: Shortness of breath Primary Care Provider: Chitra Dominguez, History obtained from patient and records. Medical history significant for chronic diastolic heart failure (EF 65 to 70%, TTE 2020), HOLLY CPAP noncompliance, CAD sp stenting, HTN, hyperlipidemia, PTSD/mood disorder, post polio syndrome/scoliosis as per records, chronic pain, hx drug misuse as per records, DM2 on oral medications, hx DVT on Eliquis, hypothyroidism, chronic anemia (baseline hemoglobin 11) Last confinement January 2021 for toxic encephalopathy secondary to polypharmacy. Few weeks history of cough symptoms later productive of clear sputum. Unsure about recent COVID-19 contacts given travel to [place] last month. Patient completed COVID-19 vaccination and booster shot. Outpatient prednisone course for possible bronchitis. Outpatient COVID-19 test from 10/22/2020 was positive. Patient with worsening shortness of breath, achy right-sided chest pain with coughing, achy headache symptoms. O2 sats 87 on room air at some point during ER stay. IV Decadron given at the ER. 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 Allergies Allergy/AdvReac Type Severity Reaction Status Date / Time latex Allergy Intermediate Rash Verified 10/31/21 20:12 nickel Allergy Intermediate SEVERE Verified 10/31/21 20:12 DERMATITIS NSAIDS (Non-Steroidal Allergy Intermediate HX OF Verified 10/31/21 20:12 Anti-Inflamma BLEEDING ULCERS-TO AVOID adhesive tape AdvReac Intermediate SKIN Verified 10/31/21 20:12 IRRITATION aspirin AdvReac Intermediate bleeding Verified 10/31/21 20:12 ulcers Home Medications Medication Instructions Recorded Confirmed Type atorvastatin 40 mg tablet (Lipitor) 40 mg PO QAM 12/13/18 10/31/21 History buspirone 10 mg tablet 10 mg PO TID PRN 12/13/18 10/31/21 History levothyroxine 75 mcg tablet 75 mcg PO DAILYBB 12/13/18 10/31/21 History polyethylene glycol 3350 17 gram 17 g PO DAILY PRN 05/12/19 10/31/21 History oral powder packet promethazine 25 mg tablet 25 mg PO Q6H PRN 05/12/19 10/31/21 History calcium carbonate 600 mg-vitamin 1 cap PO BID 05/23/19 10/31/21 History D3 5 mcg (200 unit) capsule (Calcium 600 + D(3)) epinephrine 0.3 mg/0.3 mL 0.3 mg IM Q3H PRN 05/23/19 10/31/21 History injection syringe nitroglycerin 0.3 mg sublingual 0.3 mg SUBLINGUAL UD PRN 05/23/19 10/31/21 History tablet (Nitrostat) olopatadine 0.2 % eye drops 1 drp OPB QAM 05/23/19 10/31/21 History vit C,E,zinc,copper-[id number] 250 1 cap PO QAM 05/23/19 10/31/21 History mg-lutein 5 mg-zeaxanthin 1 mg capsule (Ocuvite Adult 50 Plus) pantoprazole 40 mg tablet,delayed 40 mg PO QAM 07/03/19 10/31/21 History release amlodipine 10 mg tablet 10 mg PO DAILY 02/27/20 10/31/21 History carvedilol 12.5 mg tablet 12.5 mg PO BIDM 02/27/20 10/31/21 History tizanidine 4 mg tablet 4 mg PO BID PRN 04/03/20 10/31/21 History trazodone 100 mg tablet 200 mg PO HS 04/03/20 10/31/21 History duloxetine 60 mg capsule,delayed 60 mg PO DAILY 10/05/20 10/31/21 History release furosemide 20 mg tablet 40 mg PO DAILY 10/05/20 10/31/21 History metformin 500 mg tablet 500 mg PO BIDM 10/05/20 10/31/21 History potassium chloride 20 mEq 40 meq PO DAILY 10/05/20 10/31/21 History tablet,extended release loperamide 2 mg capsule 2 mg PO QID PRN 02/15/21 10/31/21 History nystatin 100,000 unit/gram topical 1 applic TOPICAL DAILY PRN 02/15/21 10/31/21 History powder apixaban 5 mg tablet (Eliquis) 5 mg PO BID 10/11/21 10/31/21 History benzonatate 100 mg capsule 100 mg PO TID PRN #20 cap 10/11/21 10/31/21 Rx prednisone 10 mg tablet 0 mg PO DAILY 10/31/21 10/31/21 History Past Med/Surg History Medical History Anemia HX OF Anxiety CAD (coronary artery disease) 2017-BMS to LAD Cervical spondylolysis Chronic heart failure with preserved ejection fraction (HFpEF) Chronic pain Colitis Cyclical vomiting Deep vein thrombosis 4 YEARS AGO Degenerative disc disease Depression Dyslipidemia GI bleed history of. declining anticoagulation due to hx of GIB. Hyperlipidemia Hypertension Hypothyroidism Migraine Mood disorder Myocardial Infarction 2 YEARS AGO Osteoarthritis Post traumatic stress disorder Pulmonary embolism 2 YEARS OLD (UNSURE OF REASON) Restless leg syndrome Scoliosis Surgical History Fusion of spine LUMBAR H/O ovarian cystectomy H/O repair of right rotator cuff H/O spinal fusion "1st surgery in [place], then multiple surgeries Dr. Catherine at [facility] [place]" History of adenoidectomy History of anesthesia reaction WOKE UP IN MIDDLE OF SPINAL SURGERIES History of appendectomy History of cataract surgery LEFT AND RIGHT History of heart artery stent 2017- STENT PLACED AT [facility] (DR. DAVILA) History of laminectomy LUMBAR History of tonsillectomy History of vascular access device PORT LEFT UPPER CHEST-IN PLACE Ovarian cyst X 2 Family History Mother Hypertension Father Hypertension Social History Smoking Status: Never smoker Second Hand Exposure: No; Do You Dip or Chew Tobacco: No; Tobacco Cessation Education Requested by Patient: No Hx Alcohol Use: No Hx Substance Use: Yes Last Used Substance: Days (ago) Preferred Language: Malian Communication Ability: Effective Visual Impairment: Limited Hearing Ability: Normal Custom Designer Required: No Beliefs That Will Affect Care: None marital status: Single Current Living Situation: Alone current occupational status: retired Other Information That Helps Us Care for You: No Feels Safe at Home: Yes Safety Concerns: Feels Safe At This Time Assistive Devices: Cane, Walker and Wheelchair Review of Systems Review of Systems: As per HPI, all 10 systems reviewed, all other ROS negative Physical Exam Physical Exam: GENERAL: slightly uncomfortable, obese, no respiratory distress SKIN: Normal color, warm HEENT: [place] palpebral conjunctivae, no ptosis, dry buccal mucosa NECK : Supple, short neck, no tenderness CHEST : Decreased breath sounds, no tenderness HEART : RRR, no obvious murmurs ABDOMEN: Some distention, nontender EXTREMITIES : Minimal LE swelling, no LE tenderness NEUROLOGIC : Coherent, no facial asymmetry, no other gross focality Results & Data Results & Data ([facility]) Vital Signs (Past 12 Hours) Vital Signs Temp Pulse Pulse Resp BP BP Pulse Ox 10/31/21 20:41 66 20 122/66 92 10/31/21 18:36 37.0 C 79 18 80/54 L 92 Laboratory Results Laboratory Results WBC 13.45 K/uL (4.8-10.8) H 10/31/21 19:05 RBC 4.41 M/uL (4.2-5.4) 10/31/21 19:05 Hgb 11.5 g/dL (12.0-16.0) L 10/31/21 19:05 Hct 36.6 % (37-47) L 10/31/21 19:05 MCV 83.0 fL (80-100) 10/31/21 19:05 MCH 26.1 pg (25-34) 10/31/21 19:05 MCHC 31.4 g/dL (32-36) L 10/31/21 19:05 RDW Std Deviation 57.9 fL (36.4-46.3) H 10/31/21 19:05 RDW Coeff of Arden 19.1 % (11.5-14.5) H 10/31/21 19:05 Plt Count 288 K/uL (130-400) 10/31/21 19:05 MPV 9.6 fL (7.4-10.4) 10/31/21 19:05 Immature Gran % (Auto) 0.2 % 10/31/21 19:05 Neut % (Auto) 54.1 % 10/31/21 19:05 Lymph % (Auto) 33.7 % 10/31/21 19:05 [place] % (Auto) 9.2 % 10/31/21 19:05 Eos % (Auto) 2.4 % 10/31/21 19:05 Baso % (Auto) 0.4 % 10/31/21 19:05 Neut # (Auto) 7.27 K/uL (1.4-6.5) H 10/31/21 19:05 Lymph # (Auto) 4.53 K/uL (1.2-3.4) H 10/31/21 19:05 [place] # (Auto) 1.24 K/uL (0.11-0.59) H 10/31/21 19:05 Eos # (Auto) 0.32 K/uL (0-0.5) 10/31/21 19:05 Baso # (Auto) 0.06 K/uL (0-0.2) 10/31/21 19:05 Immature Gran # (Auto) 0.03 K/uL (0.00-0.02) H 10/31/21 19:05 Sodium 142 mmol/L (136-145) 10/31/21 19:05 Potassium 3.4 mmol/L (3.5-5.1) L 10/31/21 19:05 Chloride 102 mmol/L (98-107) 10/31/21 19:05 Carbon Dioxide 33 mmol/L (21-32) H 10/31/21 19:05 Anion Gap 7 (3-11) 01/13/22 19:05 BUN 19 mg/dl (6-23) 10/31/21 19:05 Creatinine 0.73 mg/dl (0.6-1.2) 10/31/21 19:05 Est Cr Clr Drug Dosing Not Reportable 10/31/21 19:05 Est GFR ( Amer) 94.7 ml/min 10/31/21 19:05 Est GFR (Non-Af Amer) 81.7 ml/min 10/31/21 19:05 BUN/Creatinine Ratio 26.0 (10-20) H 10/31/21 19:05 Glucose 140 mg/dl (70-99) H 10/31/21 19:05 Calcium 8.8 mg/dl (8.5-10.1) 10/31/21 19:05 Magnesium 1.7 mg/dl (1.7-2.4) 10/31/21 19:05 Total Bilirubin 0.6 mg/dl (0.2-1.0) 10/31/21 19:05 AST 13 U/L (13-39) 10/31/21 19:05 ALT 14 U/L (7-52) 10/31/21 19:05 Alkaline Phosphatase 90 U/L (34-104) 10/31/21 19:05 Troponin I < 0.03 ng/ml (0-0.04) 10/31/21 19:05 Total Protein 6.3 gm/dl (6.0-8.3) 10/31/21 19:05 Albumin 3.7 gm/dl (3.4-5.0) 10/31/21 19:05 Globulin 2.6 gm/dl (2.5-4.0) 10/31/21 19:05 Albumin/Globulin Ratio 1.4 (0.9-2) 10/31/21 19:05 Lipase 25 U/L (11-82) 10/31/21 19:05 Procalcitonin < 0.05 ng/ml (0-0.5) 10/31/21 19:05 Impressions Chest X-Ray 10/31/21 18:41 SINGLE VIEW CHEST CLINICAL HISTORY: Atypical chest pain. FINDINGS: An AP, portable, upright chest radiograph is compared to chest x-ray and chest CT dated 10/11/2021. The examination is degraded by portable technique and patient rotation. Apical lordotic positioning. A left subclavian central venous infusion port is unchanged in position. The heart is enlarged noting atherosclerotic calcification of the thoracic aorta. The pulmonary vasculature is noncongested. Emphysema and chronic interstitial thickening is similar to previous. Volume loss with basilar scarring/atelectasis is again seen at the left lung base. No airspace consolidation typical for pneumonia or large pleural effusion is identified. Scattered calcified granulomas are again noted. No pneumothorax is seen. The skeletal structures are osteopenic. The bony thorax is grossly intact. IMPRESSION: 1. Cardiomegaly and emphysema with chronic parenchymal changes as above. 2. No acute cardiopulmonary abnormality is identified. ACT 112: Negative or not required by law. Electronically signed by: Ivan Smith M.D. 10/31/2021 7:[address] head initial read: CT chest initial read: EKG as per my interpretation: Rate 70, NSR, inferior infarct, low voltage
[2021-10-31] MEDS ORDERED: BENZONATATE 100 MG CAPSULE PO STA (21:53)
[2021-10-31] MEDS ORDERED: SODIUM CHLORIDE 0.45 % 1,000 ML IV STA (23:57)
--- NOTE | 2021-11-01 00:09 | History & Physical Report ---
Date of Service November 01, 2021 Assessment & Plan (1) Acute hypoxemic respiratory failure: Plan: Secondary to severe COVID-19 pneumonia hx HOLLY, CPAP intolerance, probable OHS given hypercapnia on ABGs from prior admissions. Recurrent DVT on Eliquis hx CAD sp stenting Chronic diastolic heart failure (EF 55 to 59%, TTE 2019), patient euvolemic to dry. HTN, stable hyperlipidemia on statin Rx PTSD/mood disorder hx post polio syndrome/scoliosis as per records chronic pain, off home narcotics secondary to drug misuse. DM2 on oral medications, well-controlled as of recent hemoglobin A1c of 7 last July 2021 Chronic anemia, hemoglobin at baseline Hypothyroidism, euthyroid as of recent outpatient TSH Hypokalemia secondary to home diuretic Rx Medical telemetry Supplemental O2 Decadron for severe COVID-19 pneumonia MDI RTC for now given expiratory wheezes on exam, emphysematous changes on initial CT read Pulmonary consult if without improvement Replace potassium, hold home diuretic until patient euvolemic Basal insulin, ISS BG goal [id number], carb count coverage, update hemoglobin A1c DVT prophylaxis. [employer] Full code Text document was generated using [employer] voice recognition software. It may contain grammatical or spelling errors. Kindly contact undersigned for clarification of any documentation item in question. History of Present Illness Chief Complaint: Worsening shortness of breath Primary Care Provider: Chitra Dominguez DO History obtained from patient and records. Medical history significant for chronic diastolic heart failure (EF 65 to 70%, TTE 2020), HOLLY CPAP noncompliance, CAD sp stenting, HTN, hyperlipidemia, PTSD/mood disorder, post polio synd jeanine/scoliosis as per records, chronic pain, hx drug misuse as per records, DM2 on oral medications, hx DVT on Eliquis, hypothyroidism, chronic anemia (baseline hemoglobin 11) Last confinement January 2021 for toxic encephalopathy secondary to polypharmacy. Few weeks history of cough symptoms later productive of clear sputum. Unsure about recent COVID-19 contacts given travel to [place] last month. Patient completed COVID-19 vaccination and booster shot. Outpatient prednisone course for possible bronchitis. Outpatient COVID-19 test from 10/22/2020 was positive. Patient with worsening shortness of breath, achy right-sided chest pain with coughing, achy headache symptoms. O2 sats 87 on room air at some point during ER stay. IV Decadron given at the ER. 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 Allergies Allergy/AdvReac Type Severity Reaction Status Date / Time latex Allergy Intermediate Rash Verified 10/31/21 20:12 nickel Allergy Intermediate SEVERE Verified 10/31/21 20:12 DERMATITIS NSAIDS (Non-Steroidal Allergy Intermediate HX OF Verified 10/31/21 20:12 Anti-Inflamma BLEEDING ULCERS-TO AVOID adhesive tape AdvReac Intermediate SKIN Verified 10/31/21 20:12 IRRITATION aspirin AdvReac Intermediate bleeding Verified 10/31/21 20:12 ulcers Home Medications Medication Instructions Recorded Confirmed Type atorvastatin 40 mg tablet (Lipitor) 40 mg PO QAM 12/13/18 10/31/21 History buspirone 10 mg tablet 10 mg PO TID PRN 12/13/18 10/31/21 History levothyroxine 75 mcg tablet 75 mcg PO DAILYBB 12/13/18 10/31/21 History polyethylene glycol 3350 17 gram 17 g PO DAILY PRN 05/12/19 10/31/21 History oral powder packet promethazine 25 mg tablet 25 mg PO Q6H PRN 05/12/19 10/31/21 History calcium carbonate 600 mg-vitamin 1 cap PO BID 05/23/19 10/31/21 History D3 5 mcg (200 unit) capsule (Calcium 600 + D(3)) epinephrine 0.3 mg/0.3 mL 0.3 mg IM Q3H PRN 05/23/19 10/31/21 History injection syringe nitroglycerin 0.3 mg sublingual 0.3 mg SUBLINGUAL UD PRN 05/23/19 10/31/21 History tablet (Nitrostat) olopatadine 0.2 % eye drops 1 drp OPB QAM 05/23/19 10/31/21 History vit C,E,zinc,copper-[id number] 250 1 cap PO QAM 05/23/19 10/31/21 History mg-lutein 5 mg-zeaxanthin 1 mg capsule (Ocuvite Adult 50 Plus) pantoprazole 40 mg tablet,delayed 40 mg PO QAM 07/03/19 10/31/21 History release amlodipine 10 mg tablet 10 mg PO DAILY 02/27/20 10/31/21 History carvedilol 12.5 mg tablet 12.5 mg PO BIDM 02/27/20 10/31/21 History tizanidine 4 mg tablet 4 mg PO BID PRN 04/03/20 10/31/21 History trazodone 100 mg tablet 200 mg PO HS 04/03/20 10/31/21 History duloxetine 60 mg capsule,delayed 60 mg PO DAILY 10/05/20 10/31/21 History release furosemide 20 mg tablet 40 mg PO DAILY 10/05/20 10/31/21 History metformin 500 mg tablet 500 mg PO BIDM 10/05/20 10/31/21 History potassium chloride 20 mEq 40 meq PO DAILY 10/05/20 10/31/21 History tablet,extended release loperamide 2 mg capsule 2 mg PO QID PRN 02/15/21 10/31/21 History nystatin 100,000 unit/gram topical 1 applic TOPICAL DAILY PRN 02/15/21 10/31/21 History powder apixaban 5 mg tablet (Eliquis) 5 mg PO BID 10/11/21 10/31/21 History benzonatate 100 mg capsule 100 mg PO TID PRN #20 cap 10/11/21 10/31/21 Rx prednisone 10 mg tablet 0 mg PO DAILY 10/31/21 10/31/21 History Past Med/Surg History Medical History Anemia HX OF Anxiety CAD (coronary artery disease) 2017-BMS to LAD Cervical spondylolysis Chronic heart failure with preserved ejection fraction (HFpEF) Chronic pain Colitis Cyclical vomiting Deep vein thrombosis 4 YEARS AGO Degenerative disc disease Depression Dyslipidemia GI bleed history of. declining anticoagulation due to hx of GIB. Hyperlipidemia Hypertension Hypothyroidism Migraine Mood disorder Myocardial Infarction 2 YEARS AGO Osteoarthritis Post traumatic stress disorder Pulmonary embolism 2 YEARS OLD (UNSURE OF REASON) Restless leg syndrome Scoliosis Surgical History Fusion of spine LUMBAR H/O ovarian cystectomy H/O repair of right rotator cuff H/O spinal fusion "1st surgery in [place], then [place] [facility] [place] History of adenoidectomy History of anesthesia reaction WOKE UP IN MIDDLE OF SPINAL SURGERIES History of appendectomy History of cataract surgery LEFT AND RIGHT History of heart artery stent 2017-1 STENT PLACED AT [facility] (DR. DAVILA) History of laminectomy LUMBAR History of tonsillectomy History of vascular access device PORT LEFT UPPER CHEST-IN PLACE Ovarian cyst X 2 Family History Mother Hypertension Father Hypertension Social History Smoking Status: Never smoker Second Hand Exposure: No; Do You Dip or Chew Tobacco: No; Tobacco Cessation Education Requested by Patient: No Hx Alcohol Use: No Hx Substance Use: Yes Last Used Substance: Days (ago) Preferred Language: Uzbek Communication Ability: Effective Visual Impairment: Limited Hearing Ability: Normal Ship Liner Required: No Beliefs That Will Affect Care: None marital status: Single Current Living Situation: Alone current occupational status: retired Other Information That Helps Us Care for You: No Feels Safe at Home: Yes Safety Concerns: Feels Safe At This Time Assistive Devices: Cane, Walker and Wheelchair Review of Systems Review of Systems: As per HPI, all 10 systems reviewed, all other ROS negative Physical Exam Physical Exam: GENERAL: slightly uncomfortable, obese, no respiratory distress SKIN: Normal color, warm HEENT: [place] palpebral conjunctivae, no ptosis, dry buccal mucosa, nasal cannula in place NECK : Supple, short neck, no tenderness CHEST : Decreased breath sounds, expiratory wheezes, no tenderness HEART : RRR, no obvious murmurs ABDOMEN: Some distention, nontender EXTREMITIES : Minimal LE swelling, no LE tenderness NEUROLOGIC : Coherent, no facial asymmetry, no other gross focality Results & Data Results & Data ([facility]) Vital Signs (Past 12 Hours) Vital Signs Temp Pulse Pulse Resp BP BP Pulse Ox 10/31/21 22:44 71 20 94 10/31/21 22:00 69 23 106/66 91 10/31/21 20:41 66 20 122/66 92 10/31/21 18:36 37.0 C 79 18 80/54 L 92 Laboratory Results Laboratory Results WBC 13.45 K/uL (4.8-10.8) H 10/31/21 19:05 RBC 4.41 M/uL (4.2-5.4) 10/31/21 19:05 Hgb 11.5 g/dL (12.0-16.0) L 10/31/21 19:05 Hct 36.6 % (37-47) L 10/31/21 19:05 MCV 83.0 fL (80-100) 10/31/21 19:05 MCH 26.1 pg (25-34) 10/31/21 19:05 MCHC 31.4 g/dL (32-36) L 10/31/21 19:05 RDW Std Deviation 57.9 fL (36.4-46.3) H 10/31/21 19:05 RDW Coeff of Arden 19.1 % (11.5-14.5) H 10/31/21 19:05 Plt Count 288 K/uL (130-400) 10/31/21 19:05 MPV 9.6 fL (7.4-10.4) 10/31/21 19:05 Immature Gran % (Auto) 0.2 % 10/31/21 19:05 Neut % (Auto) 54.1 % 10/31/21:05 Lymph % (Auto) 33.7 % 10/31/21:05 [place] % (Auto) 9.2 % 10/31/21 19:05 Eos % (Auto) 2.4 % 10/31/21 19:05 Baso % (Auto) 0.4 % 10/31/21 19:05 Neut # (Auto) 7.27 K/uL (1.4-6.5) H 10/31/21 19:05 Lymph # (Auto) 4.53 K/uL (1.2-3.4) H 10/31/21 19:05 [place] # (Auto) 1.24 K/uL (0.11-0.59) H 10/31/21 19:05 Eos # (Auto) 0.32 K/uL (0-0.5) 10/31/21 19:05 Baso # (Auto) 0.06 K/uL (0-0.2) 10/31/21 19:05 Immature Gran # (Auto) 0.03 K/uL (0.00-0.02) H 10/31/21 19:05 Sodium 142 mmol/L (136-145) 10/31/21 19:05 Potassium 3.4 mmol/L (3.5-5.1) L 10/31/21 19:05 Chloride 102 mmol/L (98-107) 10/31/21 19:05 Carbon Dioxide 33 mmol/L (21-32) H 10/31/21 19:05 Anion Gap 7 (3-11) 10/31/21 19:05 BUN 19 mg/dl (6-23) 10/31/21 19:05 Creatinine 0.73 mg/dl (0.6-1.2) 10/31/21 19:05 Est Cr Clr Drug Dosing Not Reportable 10/31/21 19:05 Est GFR ( Amer) 94.7 ml/min 10/31/21 19:05 Est GFR (Non-Af Amer) 81.7 ml/min 10/31/21 19:05 BUN/Creatinine Ratio 26.0 (10-20) H 10/31/21 19:05 Glucose 140 mg/dl (70-99) H 10/31/21 19:05 Calcium 8.8 mg/dl (8.5-10.1) 10/31/21 19:05 Magnesium 1.7 mg/dl (1.7-2.4) 10/31/21 19:05 Total Bilirubin 0.6 mg/dl (0.2-1.0) 10/31/21 19:05 AST 13 U/L (13-39) 10/31/21 19:05 ALT 14 U/L (7-52) 10/31/21 19:05 Alkaline Phosphatase 90 U/L (34-104) 10/31/21 19:05 Troponin I < 0.03 ng/ml (0-0.04) 10/31/21 19:05 Total Protein 6.3 gm/dl (6.0-8.3) 10/31/21 19:05 Albumin 3.7 gm/dl (3.4-5.0) 10/31/21 19:05 Globulin 2.6 gm/dl (2.5-4.0) 10/31/21 19:05 Albumin/Globulin Ratio 1.4 (0.9-2) 10/31/21 19:05 Lipase 25 U/L (11-82) 10/31/21 19:05 Procalcitonin < 0.05 ng/ml (0-0.5) 10/31/21 19:05 Impressions Chest X-Ray 10/31/21 18:41 SINGLE VIEW CHEST CLINICAL HISTORY: Atypical chest pain. FINDINGS: An AP, portable, upright chest radiograph is compared to chest x-ray and chest CT dated 10/11/2021. The examination is degraded by portable technique and patient rotation. Apical lordotic positioning. A left subclavian central venous infusion port is unchanged in position. The heart is enlarged noting atherosclerotic calcification of the thoracic aorta. The pulmonary vasculature is noncongested. Emphysema and chronic interstitial thickening is similar to previous. Volume loss with basilar scarring/atelectasis is again seen at the left lung base. No airspace consolidation typical for pneumonia or large pleural effusion is identified. Scattered calcified granulomas are again noted. No pneumothorax is seen. The skeletal structures are osteopenic. The bony thorax is grossly intact. IMPRESSION: 1. Cardiomegaly and emphysema with chronic parenchymal changes as above. 2. No acute cardiopulmonary abnormality is identified. ACT 112: Negative or not required by law. Electronically signed by: Ivan Smith M.D. 10/31/2021 7:[address] head initial read: No intracranial hemorrhage, mass-effect or midline shift. There is no abnormal extra axial fluid collection. No evidence of acute infarct. Mild periventricular white matter hypodensities are most consistent with chronic micro-angiopathy. Mild mucosal thickening of the ethmoid sinuses. The remaining visualized paranasal sinuses and mastoid air cells are clear. No fracture. CT chest initial read: There are changes of emphysema. No consolidation. The heart size iswithin normal limits. No pathologicallyenlarged lymph nodes. No fracture. EKG as per my interpretation: Rate 70, NSR, inferior infarct, low voltage
[2021-11-01] MEDS ORDERED: GLUCOSE 10 TABS/TUBE PO PRN (01:10)
[2021-11-01] MEDS ORDERED: PROMETHAZINE HCL 12.5 MG in SODIUM CHLORIDE 0.9% 50 ML IV PRN (01:10)
[2021-11-01] MEDS ORDERED: MAGNESIUM SULFATE / D5W 1 GM/100 ML BAG IV ONE (01:10)
[2021-11-01] MEDS ORDERED: CARBOHYDRATES FOR HYPOGLYCEMIA PO PRN (01:10)
[2021-11-01] MEDS ORDERED: DEXTROSE 50% 50 ML SYRINGE IV PRN (01:10)
[2021-11-01] MEDS ORDERED: GLUCAGON FOR INJ 1 MG VIAL SQ PRN (01:10)
[2021-11-01] MEDS ORDERED: INSULIN GLARGINE SOLOSTAR 100 UNITS/ML 3 ML PEN SC STA (01:10)
[2021-11-01] MEDS: traMADol HCL 50 MG TABLET PO PRN ×4 (01:13→18:09)
[2021-11-01] MEDS ORDERED: POLYETHYLENE (MIRALAX) 17 GM PACK PO PRN (01:45)
[2021-11-01] MEDS ORDERED: GLUCOSE 40% GEL 15 GM TUBE PO PRN (01:45)
[2021-11-01] MEDS: INSULIN ASPART PER UNIT SC SCH ×5 (03:25→20:21)
[2021-11-01] MEDS: ACETAMINOPHEN 325 MG TAB PO PRN (03:49)
[2021-11-01] MEDS: BENZONATATE 100 MG CAPSULE PO PRN ×2 (03:50→12:25)
[2021-11-01] MEDS: LEVOTHYROXINE SODIUM 75 MCG TABLET PO SCH (05:18)
[2021-11-01] MEDS ORDERED: LEVALBUTEROL TARTRATE 15 GM HFA.AER.AD INH SCH (07:00)
--- NOTE | 2021-11-01 07:07 | CT Scan Report ---
CT SCAN OF THE BRAIN WITHOUT IV CONTRAST CLINICAL HISTORY: Headache. Generalized weakness. COMPARISON STUDY: CT of the brain dated 02/15/2021. TECHNIQUE: Unenhanced axial CT scan of the brain is performed from the vertex to the skull base. A do se lowering technique was utilized adhering to the principles of ALARA. CT DOSE: 691.05 mGy.cm FINDINGS: Brain parenchyma: There are age-related involutional changes noting minimal microangiopathic disease . There is no hemorrhage, mass effect, or evidence of acute territorial ischemia by CT criteria. Hernandez -white matter differentiation is preserved. No extra-axial fluid collection is seen. Ventricles, sulci, cisterns: Prominent secondary to involutional change. Intracranial vasculature: There is atherosclerotic calcification of the cavernous carotid and vertebr al arteries. Calvarium: Unremarkable. Sinuses and mastoids: There is trace mucosal thickening within the maxillary antra. The remaining par anasal sinuses are clear. The mastoid air cells are well pneumatized. Orbits: The bony orbits are grossly intact. There are bilateral ocular lens implants. IMPRESSION: There is no hemorrhage, mass effect, or evidence of acute territorial ischemia by CT calin chaves. ACT 112: Negative or not required by law. Electronically signed by: Ivan Smith M.D. 11/01/2021 7:06 AM
[2021-11-01 07:19] LABS: Basophils # (auto) 0.04 K/uL (0-0.2); Basophils % (auto) 0.4 %; Eosinophils # (auto) 0.23 K/uL (0-0.5); Eosinophils % (auto) 2.1 %; Hematocrit (blood only) 35.5 % (37-47); Hemoglobin 11.1 g/dL (12.0-16.0); Immature Granulocytes # (auto) 0.02 K/uL (0.00-0.02); Immature Granulocytes % (auto) 0.2 %; Lymphocytes # (auto) 3.36 K/uL (1.2-3.4); Mean Corpuscular Hemoglobin 26.2 pg (25-34); Mean Corpuscular Hgb Conc 31.3 g/dL (32-36); Mean Corpuscular Volume 83.9 fL (80-100); Mean Platelet Volume 10.1 fL (7.4-10.4); Monocytes # (auto) 1.01 K/uL (0.11-0.59); Neutrophils # (auto) 6.53 K/uL (1.4-6.5); Neutrophils % (auto) 58.3 %; Platelet Count 294 K/uL (130-400); RDW Coefficient of Variation 19.5 % (11.5-14.5); RDW Standard Deviation 59.6 fL (36.4-46.3); Red Blood Count 4.23 M/uL (4.2-5.4); White Blood Count 11.19 K/uL (4.8-10.8)
[2021-11-01 07:38] LABS: BUN Creatinine Ratio 29.5 (10-20); Calcium 8.1 mg/dl (8.5-10.1); Creatinine Clr Calc Pharmacy 93.5 ml/min; Est GFR (African American) 104.2 ml/min; Est GFR (Non-African American) 89.9 ml/min; Potassium 3.8 mmol/L (3.5-5.1)
--- NOTE | 2021-11-01 07:53 | CT Scan Report ---
CT SCAN OF THE CHEST WITHOUT IV CONTRAST CLINICAL HISTORY: Atypical chest pain. Cough and weakness. COMPARISON STUDY: Chest x-ray dated 10/31/2021. Chest CT dated 10/11/2021, 08/21/2019, and 04/30/2018. TECHNIQUE: CT scan of the thorax was performed from the thoracic inlet to the upper abdomen. Images are reviewed in the axial, sagittal, and coronal planes. IV contrast was not administered for this ex amination as per the referring clinician. A dose lowering technique was utilized ad[facility] DOSE: 518.75 mGy.cm FINDINGS: Thyroid: Imaged portions of the thyroid gland are normal in size and attenuation. Thoracic aorta: There is mild aneurysmal dilatation of the ascending thoracic aorta which measures up to 4.1 cm in diameter. The remainder of the thoracic aorta is normal in caliber, and the arch demons trates standard 3-vessel anatomy. Heart: A left subclavian central venous infusion port is in place. The heart is enlarged and without pericardial effusion. The coronary arteries are densely calcified. The pulmonary trunk is dilated, me asuring 3.8 cm in diameter. This suggests pulmonary artery hypertension. Lungs and pleural spaces: Emphysematous change is noted. There is no airspace consolidation typical f or pneumonia or pleural effusion. Postoperative change with volume loss and parenchymal scarring is a gain seen at the left lung base. The trachea and central airways are clear. There are scattered calci fied granulomas. Mediastinum: There is no mediastinal lymphadenopathy. Gracia: Not well assessed without IV contrast. Axillae: There is no axillary lymphadenopathy. Upper abdomen: There is a small hiatal hernia. Partially visualized upper abdominal viscera is otherw ise grossly unremarkable. Skeletal structures: The skeletal structures are osteopenic. No lytic or blastic bony lesions are see n. Postoperative change is noted throughout the thoracic spine and involving the left-sided ribs. Adv anced arthritic change is seen in the shoulders. Degenerative change and scoliosis is noted throughou t the thoracic spine. IMPRESSION: 1. Cardiomegaly, emphysema, and chronic/postoperative findings as above. 2. There is no airspace consolidation typical for pneumonia or pleural effusion. 3. There is mild aneurysmal dilatation of the ascending thoracic aorta which measures up to 4.1 cm in diameter. 4. Additional findings as above. ACT 112: Negative or not required by law. Electronically signed by: Ivan Smith M.D. 11/01/2021 7:51 AM
[2021-11-01] MEDS: busPIRone 5 MG TAB PO SCH ×3 (08:31→20:23)
[2021-11-01] MEDS: APIXABAN 5 MG TABLET PO SCH ×2 (08:32→20:23)
[2021-11-01] MEDS: DULoxetine HCL 60 MG CAP PO SCH (08:33)
[2021-11-01] MEDS: ATORVASTATIN 40 MG TAB PO SCH (08:33)
[2021-11-01] MEDS: amLODIPine BESYLATE 5 MG TAB PO SCH (08:34)
[2021-11-01] MEDS: carvediloL 12.5 MG TAB PO SCH ×2 (08:34→18:07)
[2021-11-01] MEDS: tiZANidine HCL 4 MG TABLET PO PRN (08:35)
[2021-11-01] MEDS: PANTOprazole 40 MG TAB PO SCH (08:35)
[2021-11-01] MEDS: dexAMETHasone 6 MG in SYRINGE 0 ML IV SCH (08:36)
[2021-11-01] MEDS ORDERED: NON-FORMULARY MEDICATION (C,E,Zinc,Copper 11-Omega3s-Lut [Ocuvite Adult 50 Plus] 250-5-1 m PO SCH (09:00)
[2021-11-01] MEDS: OLOPATADINE~ORDER AWAITING ACTION SCH ×3 (11:12→23:06)
[2021-11-01] MEDS ORDERED: LEVALBUTEROL TARTRATE 15 GM HFA.AER.AD INH PRN (11:46)
[2021-11-01] MEDS ORDERED: guaiFENesin/CODEINE 100MG/10MG 5ML UDC PO PRN (13:58)
[2021-11-01] MEDS: BENZONATATE 100 MG CAPSULE PO SCH ×2 (14:42→20:22)
--- NOTE | 2021-11-01 16:13 | Hospitalist Progress Note ---
Date of Service November 01, 2021 Assessment & Plan (1) COVID-19: Plan: Chest CT without contrast and no evidence of pneumonia or pleural effusion. Excessive coughing appears to be the main issue as well as hypoxia that is mils and has resolved overnight (acute respiratory failure ruled out). Cont with Robitussin AC and scheduled benzonatate. Cont with steroids for now but if still not requiring oxygen in am, will stop, perform two step and likely discharge to home. (2) Coughing: Plan: Plan as above. (3) Hypoxia: Plan: 2/2 covid infection/coughing. Resolved overnight. (4) Hypothyroidism: Plan: chronic, stable, cont synthroid per home regimen. (5) Depression: Plan: chronic, stable. cont current therapy. (6) CAD (coronary artery disease): Plan: chronic, stable. Cont current medical therapy. (7) DVT prophylaxis: Plan: Apixaban Full code Dispo-to home in am [facility] Admission and Anticipated Discharge Date Admission Date: November 01, 2021 Subjective 71 yo F presents with covid pneumonia presents with worsening shortness of breath. she reports excessive coughing that is keeping her up at night didn't get much sleep last night some chest pain wtih coughing excessively recent fever a couple of days ago Review of Systems Review of Systems: All systems were reviewed and negative except as indicated above. Physical Exam Physical Exam: CONSTITUTIONAL: WNWD, vitals as above, generally well- appearing, NAD EYES: normal conjunctivae, no scleral icterus, ENT: external ear and nose normal, MMM NECK: trachea midline, RESPIRATORY: clear to auscultation bilaterally, no crackles, rales or wheezes, normal respiratory effort CARDIOVASCULAR: regular rate and rhythm, S1 and 2 heard without murmurs, gallops or rubs, no JVD, no peripheral edema, CHEST: accessed left anterior port. GASTROINTESTINAL: soft, nontender, no guarding, ND MUSCULOSKELETAL: head is normocephalic and atraumatic, SKIN: warm and dry NEUROLOGIC: CN 2-12 grossly intact, normal cognition, normal speech, no tremor, no gross focal deficits. PSYCHIATRIC: alert cooperative and oriented to person, place and time. Results & Data Results & Data ([facility]) Vital Signs (Past 12 Hours) Vital Signs Temp Pulse Pulse Resp BP Pulse Ox 11/01/21 15:21 36.7 C 82 20 138/79 94 11/01/21 11:24 36.6 C 61 20 143/85 H 91 11/01/21 07:59 82 18 93 11/01/21 07:37 36.8 C 64 20 143/81 H 90 Laboratory Results Short CBC 10/31/21 11/01/21 Range/Units 19:05 06:20 WBC 13.45 H 11.19 H (4.8-10.8) K/uL Hgb 11.5 L 11.1 L (12.0-16.0) g/dL Hct 36.6 L 35.5 L (37-47) % Plt Count 288 294 (130-400) K/uL BMP 10/31/21 11/01/21 19:05 06:20 Sodium 142 140 Potassium 3.4 L 3.8 Chloride 102 103 Carbon Dioxide 33 H 31 BUN 19 18 Creatinine 0.73 0.61 Glucose 140 H 104 H Calcium 8.8 8.1 L Cardiac Enzymes 10/31/21 Range/Units 19:05 Troponin I < 0.03 (0-0.04) ng/ml Liver Function 10/31/21 Range/Units 19:05 Total Bilirubin 0.6 (0.2-1.0) mg/dl AST 13 (13-39) U/L ALT 14 (7-52) U/L Alkaline Phosphatase 90 (34-104) U/L Albumin 3.7 (3.4-5.0) gm/dl Diagnostic Findings Chest CT 10/31/21 21:49 CT SCAN OF THE CHEST WITHOUT IV CONTRAST CLINICAL HISTORY: Atypical chest pain. Cough and weakness. COMPARISON STUDY: Chest x-ray dated 10/31/2021. Chest CT dated 10/11/2021, 08/21/2019, and 04/30/2018. TECHNIQUE: CT scan of the thorax was performed from the thoracic inlet to the upper abdomen. Images are reviewed in the axial, sagittal, and coronal planes. IV contrast was not administered for this examination as per the referring clinician. A dose lowering technique was utilized adhering to the principles of ALARA. CT DOSE: 518.75 mGy.cm FINDINGS: Thyroid: Imaged portions of the thyroid gland are normal in size and attenuation. Thoracic aorta: There is mild aneurysmal dilatation of the ascending thoracic aorta which measures up to 4.1 cm in diameter. The remainder of the thoracic aorta is normal in caliber, and the arch demonstrates standard 3-vessel anatomy. Heart: A left subclavian central venous infusion port is in place. The heart is enlarged and without pericardial effusion. The coronary arteries are densely calcified. The pulmonary trunk is dilated, measuring 3.8 cm in diameter. This suggests pulmonary artery hypertension. Lungs and pleural spaces: Emphysematous change is noted. There is no airspace consolidation typical for pneumonia or pleural effusion. Postoperative change with volume loss and parenchymal scarring is again seen at the left lung base. The trachea and central airways are clear. There are scattered calcified granulomas. Mediastinum: There is no mediastinal lymphadenopathy. Gracia: Not well assessed without IV contrast. Axillae: There is no axillary lymphadenopathy. Upper abdomen: There is a small hiatal hernia. Partially visualized upper abdominal viscera is otherwise grossly unremarkable. Skeletal structures: The skeletal structures are osteopenic. No lytic or blastic bony lesions are seen. Postoperative change is noted throughout the thoracic spine and involving the left-sided ribs. Advanced arthritic change is seen in the shoulders. Degenerative change and scoliosis is noted throughout the thoracic spine. IMPRESSION: 1. Cardiomegaly, emphysema, and chronic/postoperative findings as above. 2. There is no airspace consolidation typical for pneumonia or pleural effusion. 3. There is mild aneurysmal dilatation of the ascending thoracic aorta which measures up to 4.1 cm in diameter. 4. Additional findings as above. ACT 112: Negative or not required by law. Electronically signed by: Ivan Smith M.D. 11/01/2021 7:[address] 10/31/21 21:49 CT SCAN OF THE BRAIN WITHOUT IV CONTRAST CLINICAL HISTORY: Headache. Generalized weakness. COMPARISON STUDY: CT of the brain dated 02/15/2021. TECHNIQUE: Unenhanced axial CT scan of the brain is performed from the vertex to the skull base. A dose lowering technique was utilized adhering to the principles of ALARA. CT DOSE: 691.05 mGy.cm FINDINGS: Brain parenchyma: There are age-related involutional changes noting minimal microangiopathic disease. There is no hemorrhage, mass effect, or evidence of acute territorial ischemia by CT criteria. Hernandez-white matter differentiation is preserved. No extra-axial fluid collection is seen. Ventricles, sulci, cisterns: Prominent secondary to involutional change. Intracranial vasculature: There is atherosclerotic calcification of the cavernous carotid and vertebral arteries. Calvarium: Unremarkable. Sinuses and mastoids: There is trace mucosal thickening within the maxillary antra. The remaining paranasal sinuses are clear. The mastoid air cells are well pneumatized. Orbits: The bony orbits are grossly intact. There are bilateral ocular lens implants. IMPRESSION: There is no hemorrhage, mass effect, or evidence of acute territorial ischemia by CT criteria. ACT 112: Negative or not required by law. Electronically signed by: Ivan Smith M.D. 11/01/2021 7:06 AM Medications Administered Current Inpatient Medications Acetaminophen (Acetaminophen 325 Mg Tab) 650 mg PO Q6H PRN PRN Reason: Fever/pain Stop: 12/01/21 00:48 Last Admin: 11/01/21 03:49 Dose: 650 mg Documented by: Amlodipine Besylate (Amlodipine Besylate 5 Mg Tab) 10 mg PO DAILY COLT Stop: 12/01/21 08:59 Last Admin: 11/01/21 08:34 Dose: 10 mg Documented by: Apixaban (Apixaban 5 Mg Tablet) 5 mg PO BID COLT Stop: 12/01/21 08:59 Last Admin: 11/01/21 08:32 Dose: 5 mg Documented by: Atorvastatin Calcium (Atorvastatin 40 Mg Tab) 40 mg PO QAM COLT Stop: 12/01/21 08:59 Last Admin: 11/01/21 08:33 Dose: 40 mg Documented by: Benzonatate (Benzonatate 100 Mg Capsule) 100 mg PO TID PRN PRN Reason: Cough Stop: 12/01/21 03:44 Last Admin: 11/01/21 12:25 Dose: 100 mg Documented by: Benzonatate (Benzonatate 100 Mg Capsule) 100 mg PO TID [facility] Stop: 12/01/21 13:59 Last Admin: 11/01/21 14:42 Dose: Not Given Documented by: Buspirone HCl (Buspirone 5 Mg Tab) 10 mg PO TID [facility] Stop: 12/01/21 08:59 Last Admin: 11/01/21 14:41 Dose: 10 mg Documented by: Carvedilol (Carvedilol 12.5 Mg Tab) 12.5 mg PO BIDM [facility] Stop: 12/01/21 07:59 Last Admin: 11/01/21 08:34 Dose: 12.5 mg Documented by: Dextrose (Dextrose 50% 50 Ml Syringe) 25 - 50 ml IV UD PRN; Protocol PRN Reason: Hypoglycemia Protocol Stop: 12/01/21 01:09 Duloxetine HCl (Duloxetine Hcl 60 Mg Cap) 60 mg PO DAILY COLT Stop: 12/01/21 08:59 Last Admin: 11/01/21 08:33 Dose: Not Given Documented by: Glucagon (Glucagon For Inj 1 Mg Vial) 1 mg SQ UD PRN; Protocol PRN Reason: Hypoglycemia Protocol Stop: 12/01/21 01:09 Glucose (Glucose 10 Tabs/Tube) 4 - 8 tabs PO UD PRN; Protocol PRN Reason: Hypoglycemia Protocol Stop: 12/01/21 01:09 Glucose (Glucose 40% Gel 15 Gm Tube) 15 - 30 gm PO UD PRN; Protocol PRN Reason: Hypoglycemia Protocol Stop: 12/01/21 01:44 Guaifenesin/Codeine Phosphate (Guaifenesin/Codeine 200mg/20mg 10ml Udc) 10 ml PO Q6H PRN PRN Reason: Cough Stop: 12/01/21 13:57 Dexamethasone 6 mg/ Syringe 1.5 mls @ 1 mls/min IV DAILY COLT Stop: 12/01/21 08:59 Last Admin: 11/01/21 08:36 Dose: 1 mls/min Documented by: Insulin Aspart (Insulin Aspart Per Unit) 0 units SC ACHS [facility] Stop: 12/01/21 01:09 Last Admin: 11/01/21 11:38 Dose: 6 units Documented by: Insulin Glargine (Insulin Glargine Solostar 100 Units/Ml 3 Ml Pen) 15 units SC BID [facility] Stop: 12/01/21 20:59 Levalbuterol HCl (Levalbuterol Tartrate 15 Gm Hfa.Aer.Ad) 2 puffs INH Q6R PRN PRN Reason: Shortness Of Breath Or Wheezing Stop: 12/01/21 06:59 Levothyroxine Sodium (Levothyroxine Sodium 75 Mcg Tablet) 75 mcg PO DAILYBB [facility] Stop: 12/01/21 06:29 Last Admin: 11/01/21 05:18 Dose: 75 mcg Documented by: Miscellaneous (Carbohydrates For Hypoglycemia ) 15 - 30 gm PO UD PRN PRN Reason: Hypoglycemia Protocol Stop: 12/01/21 01:09 Miscellaneous (Olopatadine~Order Awaiting Action) 1 ea N/A QS [facility] Stop: 12/01/21 07:59 Last Admin: 11/01/21 11:12 Dose: Not Given Documented by: Pantoprazole Sodium (Pantoprazole 40 Mg Tab) 40 mg PO QAM [facility] Stop: 12/01/21 08:59 Last Admin: 11/01/21 08:35 Dose: 40 mg Documented by: Polyethylene Glycol (Polyethylene (Miralax) 17 Gm Pack) 17 gm PO DAILY PRN PRN Reason: Constipation Stop: 12/01/21 01:44 Tizanidine HCl (Tizanidine Hcl 4 Mg Tablet) 4 mg PO BID PRN PRN Reason: Muscle Spasm Stop: 12/01/21 01:44 Last Admin: 11/01/21 08:35 Dose: 4 mg Documented by: Tramadol HCl (Tramadol Hcl 50 Mg Tablet) 25 mg PO Q4H PRN PRN Reason: Pain Stop: 12/01/21 00:48 Last Admin: 11/01/21 11:49 Dose: 25 mg Documented by: Trazodone HCl (Trazodone Hcl 100 Mg Tab) 100 mg PO HS [facility] Stop: 12/01/21 20:59
--- NOTE | 2021-11-01 18:41 | Electrocardiogram Report ---
Test Reason : Blood Pressure : / mmHG Vent. Rate : 070 BPM Atrial Rate : 070 BPM P-R Int : 166 ms QRS Dur : 078 ms QT Int : 424 ms P-R-T Axes : 025 -16 016 degrees QTc Int : 457 ms Normal sinus rhythm Low voltage QRS Inferior infarct (cited on or before 18-JUN-2019) Cannot rule out Anterior infarct (cited on or before 18-JUN-2019) Abnormal ECG When compared with ECG of 11-OCT-2021 14:37, No significant change was found Confirmed by Jasbir Martell ([id number]) on 11/01/2021 6:41:26 PM Referred By: REFERRED SELF Confirmed By:Jasbir Martell
[2021-11-01] MEDS ORDERED: PROMETHAZINE HCL 25 MG TAB PO PRN (18:48)
[2021-11-01] MEDS: INSULIN GLARGINE SOLOSTAR 100 UNITS/ML 3 ML PEN SC SCH (20:22)
[2021-11-01] MEDS ORDERED: INSULIN GLARGINE SOLOSTAR 100 UNITS/ML 3 ML PEN SC SCH (21:00)
[2021-11-01] MEDS ORDERED: traZODone HCL 100 MG TAB PO SCH ×2 (21:00)
[2021-11-02] MEDS: ACETAMINOPHEN 325 MG TAB PO PRN (00:49)
[2021-11-02] MEDS: traMADol HCL 50 MG TABLET PO PRN (00:49)
[2021-11-02] MEDS: HEPARIN 100 UNIT/ML 5ML FLUSH FLUSH PRN ×2 (02:32→06:30)
[2021-11-02] MEDS: LEVOTHYROXINE SODIUM 75 MCG TABLET PO SCH (05:55)
[2021-11-02] MEDS: amLODIPine BESYLATE 5 MG TAB PO SCH (08:09)
[2021-11-02] MEDS: busPIRone 5 MG TAB PO SCH ×2 (08:09→13:12)
[2021-11-02] MEDS: DULoxetine HCL 60 MG CAP PO SCH (08:10)
[2021-11-02] MEDS: BENZONATATE 100 MG CAPSULE PO SCH ×2 (08:10→13:12)
[2021-11-02] MEDS: ATORVASTATIN 40 MG TAB PO SCH (08:11)
[2021-11-02] MEDS: PANTOprazole 40 MG TAB PO SCH (08:11)
[2021-11-02] MEDS: APIXABAN 5 MG TABLET PO SCH (08:11)
[2021-11-02] MEDS: carvediloL 12.5 MG TAB PO SCH (08:11)
[2021-11-02] MEDS: dexAMETHasone 6 MG in SYRINGE 0 ML IV SCH (08:12)
[2021-11-02] MEDS: INSULIN ASPART PER UNIT SC SCH ×2 (08:12→12:03)
[2021-11-02] MEDS: INSULIN GLARGINE SOLOSTAR 100 UNITS/ML 3 ML PEN SC SCH (08:12)
[2021-11-02] MEDS: OLOPATADINE~ORDER AWAITING ACTION SCH (08:27)
[2021-11-02] MEDS ORDERED: FUROSEMIDE 40 MG TAB PO SCH (09:00)
[2021-11-02] MEDS ORDERED: POTASSIUM CHLORIDE CRTAB 20 MEQ TABCR PO SCH (09:00)
[2021-11-02] MEDS: tiZANidine HCL 4 MG TABLET PO PRN (09:34)
[2021-11-02] MEDS ORDERED: Nursing to Pharmacy Communication SCH (13:00)
--- NOTE | 2021-11-02 13:22 | Communication Note ---
Date of Service: November 02, 2021 By CMS guidelines, a determination that the admission or continued stay is not medically necessary has been made by a member of the UR committee and a edson stewart for this hospital stay, therefore a Code 44 will be completed and the Inpatient admission will be changed to outpatient. MD Uriel
--- NOTE | 2021-11-02 13:26 | Discharge Summary ---
Date of Service November 02, 2021 Principal Diagnosis Covid infection Cough hypoxia-resolved Discharge Exam CONSTITUTIONAL: WNWD, vitals as above, generally well-appearing, NAD EYES: normal conjunctivae, no scleral icterus, ENT: external ear and nose normal, MMM NECK: trachea midline, RESPIRATORY: clear to auscultation bilaterally, no crackles, rales or wheezes, normal respiratory effort CARDIOVASCULAR: regular rate and rhythm, S1 and 2 heard without murmurs, gallops or rubs, no JVD, no peripheral edema, CHEST: accessed left anterior port. GASTROINTESTINAL: soft, nontender, no guarding, ND MUSCULOSKELETAL: head is normocephalic and atraumatic, SKIN: warm and dry NEUROLOGIC: CN 2-12 grossly intact, normal cognition, normal speech, no tremor, no gross focal deficits. PSYCHIATRIC: alert cooperative and oriented to person, place and time. Discharge Data Allergies Allergy/AdvReac Type Severity Reaction Status Date / Time latex Allergy Intermediate Rash Verified 10/31/21 20:12 nickel Allergy Intermediate SEVERE Verified 10/31/21 20:12 DERMATITIS NSAIDS (Non-Steroidal Allergy Intermediate HX OF Verified 10/31/21 20:12 Anti-Inflamma BLEEDING ULCERS-TO AVOID adhesive tape AdvReac Intermediate SKIN Verified 10/31/21 20:12 IRRITATION aspirin AdvReac Intermediate bleeding Verified 10/31/21 20:12 ulcers Consultations 10/31/21 21:05 ED Decision to Admit Stat Ordered Studies 10/31/21 21:49 CT chest diagnostic wo con Urgent CT head/brain wo con Urgent Hospital Course (1) COVID-19: Chest CT without contrast and no evidence of pneumonia or pleural effusion. Excessive coughing appears to be the main issue as well as hypoxia that is mils and has resolved overnight (acute respiratory failure ruled out). Cont with Robitussin AC and scheduled benzonatate. Cont with steroids for now but if still not requiring oxygen in am, will stop, perform two step and likely discharge to home. (2) Coughing: Plan as above. (3) Hypoxia: 2/2 covid infection/coughing. Resolved overnight. (4) Hypothyroidism: chronic, stable, cont synthroid per home regimen. (5) Depression: chronic, stable. cont current therapy. (6) CAD (coronary artery disease): chronic, stable. Cont current medical therapy. (7) DVT prophylaxis: Apixaban Full code Dispo-to home in am DO Hola Carter Hospitalist Discharge Plan Discharge Items Patient Disposition: Home - Self-Care Reason For Visit: RESP FAILURE, COVID Discharge Diagnosis: Covid infection Cough hypoxia-resolved Condition on Discharge: Good Activity: Resume your previous activity Non-emergency contact: Primary Care Provider Call non-emergency contact if: you have any medication questions and your symptoms worsen Follow-up/Referrals: Chitra Dominguez DO [Primary Care Provider] - Diet: Carb Consistent or DM2 Addtl Attending Provider Instructions: Please take all medications as instructed on discharge list below. As we discussed, please do not mix your cough medicine with Zanaflex or trazodone. Please separate by at least two hours to avoid adverse side effects. It is recommended that you followup with your primary care physician within one week of discharge from the hospital to ensure you are still improved and doing well since returning home. You should remain on home isolation at least 10 days post symptom onset for covid-19 to avoid spreading it. SEe home isolation information below. It was a pleasure taking care of you! Please call if you have any questions or problems. You can reach a [facility] hospitalist on duty at [facility] 24 hours a day by calling [phone]. Take care of yourself. DO [facility] Addtl Publications Distribution Clerk Provider Instructions: Home Isolation COVID-19 Instructions The following information about Home Isolation is from the CDC Website: https://www.cdc.gov/coronavirus/2019-ncov/hcp/iukezruv-crybyar-srcuoq.html Stay home except to get medical care People who are mildly ill with COVID-19 are able to isolate at home during their illness. You should restrict activities outside your home, except for getting medical care. Do not go to work, school, or public areas. Avoid using public transportation, ride-sharing, or taxis. Separate yourself from other people and animals in your home People: As much as possible, you should stay in a specific room and away from other people in your home. Also, you should use a separate bathroom, if available. Animals: You should restrict contact with pets and other animals while you are sick with COVID-19, just like you would around other people. Although there have not been reports of pets or other animals becoming sick with COVID-19, it is still recommended that people sick with COVID-19 limit contact with animals until more information is known about the virus. When possible, have another member of your household care for your animals while you are sick. If you are sick with COVID-19, avoid contact with your pet, including petting, snuggling, being kissed or licked, and sharing food. If you must care for your pet or be around animals while you are sick, wash your hands before and after you interact with pets and wear a face mask. Call ahead before visiting your doctor If you have a medical appointment, call the healthcare provider and tell them that you have or may have COVID-19. This will help the healthcare providers office take steps to keep other people from getting infected or exposed. Wear a face mask You should wear a face mask when you are around other people (e.g., sharing a room or vehicle) or pets and before you enter a healthcare providers office. If you are not able to wear a face mask (for example, because it causes trouble breathing), then people who live with you should not stay in the same room with you, or they should wear a face mask if they enter your room. Cover your coughs and sneezes Cover your mouth and nose with a tissue when you cough or sneeze. Throw used tissues in a lined trash can. Immediately wash your hands with soap and water for at least 20 seconds or, if soap and water are not available, clean your hands with an alcohol-based hand senior restaurant manager that contains at least 60% alcohol. Clean your hands often Wash your hands often with soap and water for at least 20 seconds, especially after blowing your nose, coughing, or sneezing; going to the bathroom; and before eating or preparing food. If soap and water are not readily available, use an alcohol-based hand senior restaurant manager with at least 60% alcohol, covering all surfaces of your hands and rubbing them together until they feel dry. Soap and water are the best option if hands are visibly dirty. Avoid touching your eyes, nose, and mouth with unwashed hands. Avoid sharing personal household items You should not share dishes, drinking glasses, cups, eating utensils, towels, or bedding with other people or pets in your home. After using these items, they should be washed thoroughly with soap and water. Clean all high-touch surfaces everyday High touch surfaces include counters, tabletops, doorknobs, bathroom fixtures, toilets, phones, keyboards, tablets, and bedside tables. Also, clean any surfaces that may have blood, stool, or body fluids on them. Use a household cleaning spray or wipe, according to the label instructions. Labels contain instructions for safe and effective use of the cleaning product including precautions you should take when applying the product, such as wearing gloves and making sure you have good ventilation during use of the product. Monitor your symptoms Seek prompt medical attention if your illness is worsening (e.g., difficulty breathing).Beforeseeking care, call your healthcare provider and tell them that you have, or are being evaluated for, COVID-19. Put on a face mask before you enter the facility. These steps will help the healthcare providers office to keep other people in the office or waiting room from getting infected or exposed. Ask your healthcare provider to call the local or state health department. Persons who are placed under active monitoring or facilitated self- monitoring should follow instructions provided by their local health department or occupational health professionals, as appropriate. When working with your local health department check their available hours. If you have a medical emergency and need to call 911, notify the dispatch personnel that you have, or are being evaluated for COVID-19. If possible, put on a face mask before emergency medical services arrive. Discontinuing home isolation Patients with confirmed COVID-19 should remain under home isolation precautions until the risk of secondary transmission to others is thought to be low. The decision to discontinue home isolation precautions should be made on a [id number] basis, in consultation with healthcare providers and state and local health departments. Pending Studies at Discharge: No Stand-Alone Forms: [facility] Medications and DC Order Prescriptions: New codeine-guaifenesin 10-100 mg/5 mL Liquid 10 ml PO Q6H PRN (Reason: cough) Qty: 120 RF: 0 Continued nitroglycerin [Nitrostat] 0.3 mg Tablet, Sublingual 0.3 mg sublingual UD PRN (Reason: Chest Pain) RF: 0 Calcium 600 + D(3) 600 mg calcium- 200 unit Capsule 1 cap PO BID RF: 0 olopatadine 0.2 % Drops 1 drp OPB QAM RF: 0 epinephrine 0.3 mg/0.3 mL Syringe 0.3 mg IM Q3H PRN (Reason: Allergic Reaction) RF: 0 Ocuvite Adult 50 Plus 250-5-1 mg Capsule 1 cap PO QAM RF: 0 pantoprazole 40 mg tablet,delayed release (DR/EC) 40 mg PO QAM RF: 0 carvedilol 12.5 mg tablet 12.5 mg PO BIDM RF: 0 amlodipine 10 mg tablet 10 mg PO DAILY RF: 0 metformin 500 mg Tablet 500 mg PO BIDM RF: 0 duloxetine 60 mg Capsule,Delayed Release(Dr/Ec) 60 mg PO DAILY RF: 0 potassium chloride 20 mEq Tablet Extended Release 40 meq PO DAILY RF: 0 furosemide 20 mg tablet 40 mg PO DAILY RF: 0 atorvastatin [Lipitor] 40 mg Tablet 40 mg PO QAM RF: 0 levothyroxine 75 mcg Tablet 75 mcg PO DAILYBB RF: 0 buspirone 10 mg Tablet 10 mg PO TID PRN (Reason: Anxiety) RF: 0 polyethylene glycol 3350 17 gram Powder In Packet 17 g PO DAILY PRN (Reason: Constipation) RF: 0 promethazine 25 mg Tablet 25 mg PO Q6H PRN (Reason: Nausea) RF: 0 tizanidine 4 mg tablet 4 mg PO BID PRN (Reason: Muscle Spasm) RF: 0 trazodone 100 mg Tablet 200 mg PO HS RF: 0 loperamide 2 mg capsule 2 mg PO QID PRN (Reason: Diarrhea) RF: 0 nystatin 100,000 unit/gram powder 1 applic TOPICAL DAILY PRN (Reason: Rash) RF: 0 Eliquis 5 mg tablet 5 mg PO BID RF: 0 benzonatate 100 mg capsule 100 mg PO TID PRN (Reason: cough) Qty: 20 RF: 0 prednisone 10 mg tablet 0 mg PO DAILY RF: 0 Discharge Orders: Discharge Order (Routine); Ordered 11/02/21 Ordered By: Nanda Manning Admission Data Admit Date/Time: 11/01/21 01:06 Attending Provider: Nanda Manning Admit Provider: Latrell Kraft Primary Care Provider: Chitra Dominguez Other Providers: Latrell Kraft
[2021-11-03] MEDS ORDERED: busPIRone 15 MG TAB PO SCH (21:00)
== END 2021-11-02 14:25 | disposition home or self-care (01) ==
LOC: ED 18:28 → EDINP 11-01 01:06 → INTOOBSV 11-01 01:06 → 2W 11-01 02:09

== ENCOUNTER 2023-01-29 09:46 | Inpatient (IN) ==
--- NOTE | 2023-01-20 12:08 | PAT Medication Instructions ---
Medication Instructions Date of Service January 20, 2023 Home Medications atorvastatin 40 mg tablet (Lipitor) 40 mg PO QAM buspirone 10 mg tablet 10 mg PO TID PRN levothyroxine 75 mcg tablet 75 mcg PO DAILY polyethylene glycol 3350 17 gram oral powder packet 17 g PO DAILY PRN promethazine 25 mg tablet 25 mg PO Q6H PRN epinephrine 0.3 mg/0.3 mL injection syringe 0.3 mg IM Q3H PRN nitroglycerin 0.3 mg sublingual tablet (Nitrostat) 0.3 mg sublingual UD PRN olopatadine 0.2 % eye drops 1 drp OPB QAM tizanidine 4 mg tablet 4 mg PO BID PRN trazodone 100 mg tablet 200 mg PO HS furosemide 20 mg tablet 40 mg PO QAM metformin 500 mg tablet 500 mg PO BID loperamide 2 mg capsule 2 mg PO QID PRN apixaban 5 mg tablet (Eliquis) 5 mg PO BID aspirin 81 mg tablet,delayed release 81 mg PO QAM metoprolol succinate 100 mg tablet,extended release 24 hr 100 mg PO QAM semaglutide 2 mg/dose (8 mg/3 mL) subcutaneous pen injector (Ozempic) 2 mg subcut WK spironolactone 25 mg tablet 25 mg PO QAM Continue as directed levothyroxine 75 mcg tablet 75 mcg PO DAILY semaglutide 2 mg/dose (8 mg/3 mL) subcutaneous pen injector (Ozempic) 2 mg subcut WK nitroglycerin 0.3 mg sublingual tablet (Nitrostat) 0.3 mg sublingual UD PRN(if needed) epinephrine 0.3 mg/0.3 mL injection syringe 0.3 mg IM Q3H PRN(if needed) ASK your prescriber and surgeon apixaban 5 mg tablet (Eliquis) 5 mg PO BID(in order for spinal or epidural anesthesia, Eliquis needs to be stopped 72 hours/3 days before surgery. Please check if okay with doctor that prescribes this to you) aspirin 81 mg tablet,delayed release 81 mg PO QAM DO NOT take the morning of surgery polyethylene glycol 3350 17 gram oral powder packet 17 g PO DAILY PRN furosemide 20 mg tablet 40 mg PO QAM metformin 500 mg tablet 500 mg PO BID loperamide 2 mg capsule 2 mg PO QID PRN spironolactone 25 mg tablet 25 mg PO QAM Take morning of surgery With a small sip of water, OTHERWISE NOTHING TO EAT OR DRINK AFTER MIDNIGHT: atorvastatin 40 mg tablet (Lipitor) 40 mg PO QAM buspirone 10 mg tablet 10 mg PO TID PRN(if needed) promethazine 25 mg tablet 25 mg PO Q6H PRN(if needed) olopatadine 0.2 % eye drops 1 drp OPB QAM tizanidine 4 mg tablet 4 mg PO BID PRN(if needed) metoprolol succinate 100 mg tablet,extended release 24 hr 100 mg PO QAM Take evening before surgery buspirone 10 mg tablet 10 mg PO TID PRN(if needed) promethazine 25 mg tablet 25 mg PO Q6H PRN(if needed) tizanidine 4 mg tablet 4 mg PO BID PRN(if needed) trazodone 100 mg tablet 200 mg PO HS metformin 500 mg tablet 500 mg PO BID loperamide 2 mg capsule 2 mg PO QID PRN(if needed) Other Notes If you have any questions please call us at [phone] or [phone] or [phone] or [phone]
--- NOTE | 2023-01-22 11:55 | Anesthesiology Consultation ---
Date of Service January 22, 2023 Assessment & Plan (1) Encounter for pre-operative examination: - Check BSG AM DOS - COVID screening: Per assessment on 01/22: No known COVID-19 positive contacts or current COVID-19 related symptoms. Travel screen negative. Patient vaccinated. At surgeon discretion if preop Covid testing being done. - Eliquis instructions: per surgeon/prescriber - Cardiology visit (11/18/22): "Coronary artery disease, presentation in March 2017 ([facility]) with a NSTEMI, receiving 2 bare metal stents within the LAD. Nonischemic Lexiscan nuclear stress test on November 06, 2022. Continue appropriate medical management.. Hypotension. Asymptomatic. For now, hold losartan 12.5 mg/day. Attempt to resume down the road.. Chronic diastolic heart failure compensated. Continue the current diuretic regimen.. Mild aneurysmal dilatation of the ascending thoracic aorta. Follow routinely.. Emphysema.. HOLLY, CPAP noncompliance.. Hypertension.. Abnormal LFT's, fatty metamorphosis/fibrosis of the liver noted on prior imaging.. History of DVT on Eliquis.. Hold losartan 12.5 mg/day. Attempt to resume down the road. Continue all other medications as presently prescribed. Routine cardiology follow-up in 6 months time or as needed." F/U 6 months. Chart Review Chart Review: Acceptable Risk for Surgery (pending evaluation AM DOS) and Patient seen in Pre Admission Testing Teaching & Discussion Pre-Anesthesia Teaching/Discussion Notes: Instructed NPO after midnight before surgery,except medications with 15 cc of water. Medication instructions provided according to the PAT guidelines. History Surgery Operation Date: 01/29/23 08:55 Proposed Procedures p Arthroscopy Shoulder Right Rotator Cuff Repair, Subacromial Decompression, Possible Biceps Tenodesis - Michael Rosado MD Height/Weight Height: 5 ft 4 in Weight: 87.2 kg Allergies Allergy/AdvReac Type Severity Reaction Status Date / Time latex Allergy Intermediate Rash Verified 01/20/23 08:54 nickel Allergy Intermediate SEVERE Verified 01/20/23 08:54 DERMATITIS NSAIDS (Non-Steroidal Allergy Intermediate HX OF Verified 01/20/23 08:54 Anti-Inflamma BLEEDING ULCERS-TO AVOID adhesive tape AdvReac Intermediate SKIN Verified 01/20/23 08:54 IRRITATION aspirin AdvReac Intermediate full dose Verified 01/20/23 08:54 asa -> bleeding ulcers Medications Home Medications Medication Instructions Recorded Confirmed Last Taken atorvastatin 40 mg tablet (Lipitor) 40 mg PO QAM 12/13/18 01/21/23 10/31/21 buspirone 10 mg tablet 10 mg PO TID PRN Anxiety 12/13/18 01/21/23 10/05/20 08:00 levothyroxine 75 mcg tablet 75 mcg PO DAILYBB 12/13/18 01/21/23 10/31/21 polyethylene glycol 3350 17 gram 17 g PO DAILY PRN Constipation 05/12/19 01/21/23 07/29/19 oral powder packet promethazine 25 mg tablet 25 mg PO Q6H PRN Nausea 05/12/19 01/21/23 02/20/20 epinephrine 0.3 mg/0.3 mL 0.3 mg IM Q3H PRN Allergic Reaction 05/23/19 01/21/23 Unknown injection syringe nitroglycerin 0.3 mg sublingual 0.3 mg sublingual UD PRN Chest Pain 05/23/19 01/21/23 Unknown tablet (Nitrostat) olopatadine 0.2 % eye drops 1 drp OPB QAM 05/23/19 01/21/23 10/31/21 tizanidine 4 mg tablet 4 mg PO BID PRN Muscle Spasm 04/03/20 01/21/23 Unknown trazodone 100 mg tablet 200 mg PO HS 04/03/20 01/21/23 10/30/21 furosemide 20 mg tablet 40 mg PO QAM 10/05/20 01/21/23 10/31/21 metformin 500 mg tablet 500 mg PO BIDM 10/05/20 01/21/23 10/31/21 loperamide 2 mg capsule 2 mg PO QID PRN Diarrhea 02/15/21 01/21/23 Unknown apixaban 5 mg tablet (Eliquis) 5 mg PO BID 10/11/21 01/21/23 10/31/21 aspirin 81 mg tablet,delayed 81 mg PO QAM 01/20/23 01/21/23 Unknown release metoprolol succinate 100 mg 100 mg PO QAM 01/20/23 01/21/23 Unknown tablet,extended release 24 hr semaglutide 2 mg/dose (8 mg/3 mL) 2 mg subcut WK 01/20/23 01/21/23 Unknown subcutaneous pen injector (Ozempic) spironolactone 25 mg tablet 25 mg PO QAM 01/20/23 01/21/23 Unknown plecanatide 3 mg tablet (Trulance) 3 mg PO DAILY #30 tabs 01/21/23 01/21/23 Unknown Past Medical History Medical History Anemia Anxiety CAD (coronary artery disease) BMS to LAD (2016) Cervical spondylolysis Chronic heart failure with preserved ejection fraction (HFpEF) Deep vein thrombosis ~2014, unknown cause Degenerative disc disease Depression Diabetes mellitus, type 2 Dyslipidemia GI bleed Hx (declined AC d/t hx of GIB per records) History of COVID-19 10/2021 - treated inpatient at [facility]/Covid PNA Hx of Clostridium difficile infection Remote hx Hyperlipidemia Hypertension Hypothyroidism Migraine Hx, no recent issues Myocardial Infarction 2016 Osteoarthritis Post traumatic stress disorder Pulmonary embolism ~2014 (UNSURE OF REASON) Restless leg syndrome Scoliosis Exercise / Class Metabolic Activity II 4-5 Yardwork/Stairs/Walk up hill (one FS (no CP, no SOB)) Past Family History Family History Mother Hypertension Father Hypertension Other No family history of adverse response to anesthesia Past Surgical History Surgical History Fusion of spine LUMBAR H/O ovarian cystectomy x2 H/O repair of right rotator cuff H/O spinal fusion Multiple History of adenoidectomy History of anesthesia reaction Awareness with spinal surgeries History of appendectomy History of back surgery has bilateral SI Joint replacements (~2020 at [facility]) History of cataract surgery LEFT AND RIGHT History of colonoscopy History of esophagogastroduodenoscopy (EGD) History of heart artery stent 2017-x2 STENTS PLACED AT [facility] (DR. DAVILA) History of laminectomy and fusion "entire spine is fused(except cervical spine)" [facility] Mathias (Dr Catherine) History of tonsillectomy History of vascular access device Left upper chest port (*not a power port*) S/P hardware removal removal of all back hardware (~2002) Barney Archuleta Past Anesthesia History Other (Awareness with spinal surgery, no similar issues with other surgeries/anesthesia) History of PONV No Hx of PONV and Hx of Motion Sickness (Remote as child) Social History Smoking Status: Never smoker Do You Dip or Chew Tobacco: No Hx Alcohol Use: No Hx Substance Use: No Review of Systems Patient denies chest pain, shortness of breath, dyspnea on exertion, fever, chills, cough, wheezing, palpitations. Physical Exam Vital Signs VITALS BP 111/79 P 90 TEMP 98.4 SP02 96%RA RESP 16 PHYSICAL Full cervical extension range of motion. Full TMJ range of motion. TMD 3.5 finger breaths Mallampati Score 3 Dentition: lower partial Lungs: clear throughout to auscultation Cardiac: regular rate and rhythm, no murmurs noted Spine: normal Carotid arteries: negative bruit Extremities: no edema Lab Results Anesthesia Preop Results Results Anesthesia Widget: WBC 10.28 K/ul (4.8-10.8) 01/12/23 Hgb 15.0 g/dl (12.0-16.0) 01/12/23 Hct 42.7 % (37.0-47.0) 01/12/23 Plt 274 K/uL (130-400) 01/12/23 Na 140 mmol/L (136-145) 01/12/23 K 3.4 mmol/L (3.5-5.1) L 01/12/23 Cl 102 mmol/L (98-107) 01/12/23 CO2 26 mmol/L (21-32) 01/12/23 BUN 15 mg/dl (6-23) 01/12/23 Creat 0.72 mg/dl (0.6-1.2) 01/12/23 Glucose Level 86 mg/dl (70-99(Fasting)) 01/12/23 PT 11.9 Seconds (9.0-12.0) 01/12/23 INR 1.1 (0.9-1.1) 01/12/23 Blood Type O Positive 01/12/23 Antibody Screen NEGATIVE 01/12/23 Testing Electrocardiogram Date: 01/12/23 Sinus rhythm with occasional PVCs at 98 bpm. LAD. Low voltage criteria. Inferior infarct (cited on or before 06/18/2019). Cannot rule out anterior infarct (cited on or before 06/18/2019). Echo performed 02/15/2021* Chest X-Ray Date: 04/06/23 FINDINGS: A port catheter is seen. Median sternotomy wires are seen. Cardiomegaly is noted. The lungs are clear. No evidence of pleural effusion or pneumothorax. IMPRESSION: No acute chest disease. Cardiomegaly is noted. Echocardiogram Date: 11/06/22 LVEF 55-59%. Mildly increased cLV wall thickness. Grade I DD. No significant valvular disease. Compared to prior study 05/02/22, there is no significant change per report. Stress Test Date: 11/06/22 Type: DSE Lexiscan nuclear stress test is negative for ischemia or scar. Gated SPECT images reveals normal myocardial thickening and wall motion. LVEF > 70%. 78% MPHR. Cardiac Catheterization Date: 03/27/17 Clinical indications: Subtotal proximal LAD diagonal stenosis noted on diagnost ic angiography by Dr. Francis Baiely. The diagnostic procedure was performed for continued complaints of chest pain and non ST elevation myocardial infarction. Findings: Guiding angiography revealed a subtotal 99 percent proximal LAD diagonal stenosis. FAN 1 flow. Following PTCA FAN 2 flow was present in the diagonal. Following deployment of the stent and post stent deployment balloon inflation the residual stenosis at the stent site was 0-10 percent. No evidence of dissection, thrombus, perforation, or distal embolic event. FAN 3 flow into the diagonal. COVID-19 Risk Screen Screening Information COVID-19 Screen Date: 01/22/23 Exposure 21 Days Family/Household +COVID Last 21 Days: No Exposure 10 Days Any COVID Exposure Last 10 Days: No Symptoms Last 10 Days Experienced COVID Sx Last 10 Days: No + COVID 0-90 Days COVID + in Last 0-90 Days: No
[~2023-01-29 09:46] MED LIST changes: +ACETAMINOPHEN 1,000 MG/100 ML VIAL IV STA; +ALBUTEROL 0.083% NEBU SOLN 3 ML VIAL INH PRN; +ATROPINE SULFATE 0.1 MG/ML 10ML SYR IV PRN; +BUPIVACAINE 0.5 % 5 MG/1 ML PF 10ML VIAL ONE; -HydrALAZINE HCL 20 MG/ML VIAL IV ONE; +LABETALOL HCL IV 5 MG/ML 20ML IV PRN; +LR 15ML/HR IV SCH; +LR 60ML/HR IV SCH; +ONDANSETRON INJ 2 MG/ML 2 ML VIAL IV PRN; +ceFAZolin 2000MG 2,000 MG/15 ML SYR IV SCH; +ePHEDrine sulfate 50 MG/ML AMP IV PRN
[2023-01-29] MEDS ORDERED: HYDROmorphone INJ 0.5 MG/0.5 ML SYR IV STA (10:41)
[2023-01-29] MEDS ORDERED: KETOROLAC 30 MG/ML VIAL ONE (10:46)
[2023-01-29] MEDS ORDERED: PROPOFOL IV EMULSION 10 MG/ML 20 ML VIAL IV ONE (10:46)
[2023-01-29] MEDS ORDERED: ONDANSETRON INJ 2 MG/ML 2 ML VIAL ONE (10:46)
[2023-01-29] MEDS ORDERED: LIDOCAINE 2% MPF LOCAL 5 ML VIAL ONE (10:46)
[2023-01-29] MEDS ORDERED: ROCURONIUM BROMIDE 10 MG/ML 5 ML VIAL IV ONE ×5 (10:50)
--- NOTE | 2023-01-29 11:26 | History & Physical Bridge Note ---
Date of Service January 29, 2023 History & Physical Bridge Note I have examined the patient, reviewed the History & Physical and in the interval since the performance of the History & Physical I have noted the following changes of clinical significance: two separate ER visits since clinic for migraines and rectal bleeding. Conditions resolved. Cleared by PCP. Stopped Eliquis 2 days ago. Clear to proceed. Consent and surgical plan reviewed. She will be admitted observation postop, given medical comorbidities.
[2023-01-29] MEDS ORDERED: fentaNYL citrate PF 100 MCG/2 ML VIAL ONE (11:57)
[2023-01-29] MEDS ORDERED: BUPIVACAINE/EPINEPHRINE 0.25% 1:200,000 30 ML VIAL ONE (12:06)
[2023-01-29] MEDS ORDERED: HYDROmorphone INJ 2 MG/ML SYR/VIAL ONE (12:38)
--- NOTE | 2023-01-29 13:08 | Anesthesiology Progress Note ---
Date of Service January 29, 2023 Anesthesia Post Procedure Vital Signs Vital Signs: Temp Pulse Resp BP Pulse Ox O2 Del Method 01/29/23 10:12 36.7 C 76 18 164/96 H 94 Room Air Pain Intensity Right Shoulder: Pain Intensity: 7 Transfer of Care Handoff Completed per policy Notes Mental Status: alert / awake / arousable Patient Amnestic to Procedure: Yes Nausea / Vomiting: adequately controlled Pain: adequately controlled Airway Patency, RR, SpO2: stable & adequate BP & HR: stable & adequate Hydration State: stable & adequate Anesthetic Complications: no major complications apparent and Pt Satisfied with anesthetic care
[2023-01-29] MEDS ORDERED: GLYCOPYRROLATE 0.2 MG/ML VIAL ONE ×2 (13:41→13:42)
--- NOTE | 2023-01-29 13:56 | Operative Report ---
PG Post Operative Report Pre & Post Diagnosis Operation Date: 01/29/23 11:35 Pre-Op Diagnosis: Right shoulder: Biceps Tendon Tear, Rotator Cuff Tear, Subacromial Bursitis Post-Op Diagnosis: Right shoulder: Biceps Tendon Tear, recurrent rotator Cuff Tear, Subacromial im pingement I identified the patient and participated in the time-out.: Yes Procedure Operation Date: 01/29/23 11:35 Actual Procedures p right shoulder arthroscopy, revision rotator Cuff Repair, Subacromial Decompression, Biceps Tenodesis(Right) - Michael Rosado MD Surgeon Michael Rosado MD Community Relations Assistant Branden Gould PA-C Estimated Blood Loss 5 Findings See Below EUA showed full passive range of motion without crepitus. Arthroscopy revealed an intact subscapularis, significant biceps tendinopathy and impingement, and recurrence of a supraspinatus and infraspinatus rotator cuff tear at the site of previous open repair. The biceps tendon was tenotomized and tenodesed using a 4.75 bio composite swivel lock loaded for the anteromedial position of the superior rotator cuff repair. A 4 anchor, double row rotator cuff pair was performed with posterior medial 2.6 mm Arthrex RC knotless fiber tack, double linked medial knotless seal, and fiber and suture tape taken laterally into 2 Arthrex 4.75 bio composite swivel lock anchors in the lateral row. An additional luggage tag type lateral cuff margin, comealong long stitch was added. Full rotator cuff footprint coverage. Previous repair stitches debrided. Small subacromial spur planed using a bur for formal decompression. Specimens None Anesthesia Type General Regional Complications none Disposition Accompanied Patient To Recovery: No Disposition: Recovery Room Indications 73-year-old female sustained presented with longstanding symptoms of chronic shoulder pain and rotator cuff dysfunction. Physical exam and advanced imaging supported the diagnosis of recurrent rotator cuff tear after an open repair by another surgeon years ago. Arthroscopic intervention to restore her shoulder function was offered. We discussed the risks and benefits, as outlined in the preoperative note. Informed consent was obtained in the clinic. Description of Procedure On the day of surgery, the patient was greeted in the preoperative holding area. The informed consent was reviewed and confirmed by myself and the patient. The patient identified the surgical site, and it was marked by me. The patient was then turned over to anesthesia. Patient was then taken to the operating room and placed upon the OR table. Anesthesia was induced. The airway was secured. The patient was positioned in the beachchair with all bony prominences well- padded. Surgical timeout was called to anesthetize the shoulder. 60 cc solution of quarter percent Marcaine with epinephrine was infused into the shoulder joint and subacromial space. The operative extremity was then prepped and draped in usual sterile fashion for beachchair arthroscopy with Arthrex Trimano arm positioner. Surgical timeout was called by the circulating nurse and verified all present. Antibiotics been infused, and equipment was available and functional. We initiated the procedure by creating a standard posterior viewing portal for beachchair arthroscopy. Cursory diagnostic arthroscopy was carried out and an anterior portal was established using a spinal needle for localization. A motorized shaver was then introduced to address synovitis and improve visualization. Thorough diagnostic arthroscopy was carried out. The superior labrum had degenerative fraying. The inferior, posterior and anterior labrum also had abundant synovitis which was extensively debrided. The articular cartilage was intact with a grade 1 diffuse softening throughout. There were impingement lesions at the entrance to the biceps groove bicep tendon appeared significantly frayed. The subscapularis tendon was encased in thickened synovium, which was debrided to reveal an intact tendon on the lesser tuberosity footprint. The MGHL was released to improve visualization. The intra-articular exam demonstrated an obvious full-thickness tear with exposure of the rotator cuff footprint. Given the full-thickness superior rotator cuff tear, I established a lateral portal using a spinal needle for localization. A Tamra cannula was placed here for additional access while repairing the subscapularis and perform the biceps tenodesis. Given the condition of the biceps tendon in the superior labrum, biceps tenodesis was planned to be performed arthroscopically. This was performed using the loop and tack method. A link stitch was passed thru the bicep tendon and brought back down to capture with loop. A tissue penetrator device was then used to pass the suture tail back through the substance of the tendon to form secure grasping suture. Percutaneous 4.75 bio composite swivel lock loaded with fiber tape suture was then placed with the loop and tack stitch in order to tenodese the tendon and established our anteromedial rotator cuff anchor. The remainder of the intra- articular bicep tendon was truncated and debrided back to stable labral margin. We then exited the intra-articular space and entered the subacromial space using a trocar. Lateral working portal was established using a spinal needle for localization. Motorized shaver was introduced and that subacromial bursectomy was carried out to improve visualization. A spur was appreciated on the anterior lateral edge of the acromion. A formal subacromial decompression was performed using motorized bur to reduce this back to a flat stable margin all the way to the AC joint. Thorough irrigation was then performed. Once we have adequate visualization of the rotator cuff we evaluated the bursal aspect. We then changed to the lateral viewing portal. Switching stick was used to assist with this. Spinal needle was then used to create an accessory lateral viewing portal. Debridement of the rotator cuff insertion was carried out. We debrided back generative rotator cuff tissue back to stable tissue margins. Previous suture was encountered and appeared to be Ethibond type, and it was debrided in its entirety. The greater tuberosity footprint was then debrided of soft tissue. A arthroscopic sherice, motorized shaver, and curette was used to expose bleeding bone. A small bit of tuboplasty was performed on the most lateral margin that appeared enlarged. We then percutaneously inserted self punching 2.6 mm FiberTack RC anchor with knotless mechanism and suture tape into the posterior-medial row position on the articular cartilage margin which was visible. All suture tails were brought back out of the percutaneous insertion points for suture management.] An Arthrex scorpion was then used to pass a fiber link suture through the posterior and anterior cuff tissue. The fiber link was used to pass the swedged fiber tapes from the anchor as well as knotless mechanism stitches. The cuff grasper was used to reduce the tissue over the footprint while a linked, double francois technique was used for medial seal between the anchors using the knotless mechanism. An additional cinch stitch was added to anterolateral limb of the cuff tissue to be secured in the anterior lateral anchor. The tails were then brought back out the lateral portal. We used a Arthrex Tamra cannula to provisionally reduce the tissue using the suture tails. We chose our spot for the lateral row anchor based on a quality reduction of the tissue. The punch was used to create the hole for the anchor. A 4.75 mm bio composite swivel lock anchor was then loaded with these tails and deployed into its socket under arthroscopic visualization. This was repeated for the posterior lateral anchor position to complete the repair. The tear repair was then evaluated. Had good reduction of tissue and complete coverage of the footprint. There were no dogear formations. The subacromial space was then thoroughly irrigated and evacuated of arthroscopic fluid. Intra-articular exam demonstrated near anatomic reduction of the tissue. Joint was deflated of arthroscopic fluid as well. All instruments were then removed including the cannulas. Wounds were approximated using 3-0 Monocryl suture in a buried knot fashion, backed up by Steri-Strips. The wounds are dressed sterile Xeroform, sterile gauze and ABD. Ioban tape was then used to secure the final dressing. The arm was placed in a standard postoperative sling. Patient tolerated the procedure well, was extubated in the operating room without complication, and transported the PACU in stable condition. Disposition: Patient will undergo routine postoperative pain management at home and will initiate physical therapy before the 2-week follow-up appointment. The patient will follow a large rotator cuff repair physical therapy protocol. They be nonweightbearing for 6 weeks. They remain in the sling for 4 weeks. Follow- up will occur in 10 to 14 days in the orthopedic clinic. Physician assistant professor of physics attestation: Branden Gould PA-C was present and scrubbed for the duration of the case. He was essential to prepping/draping, patient positioning, retraction, and assistance with wound closure. In particular, he was essential to suture management for this complex rotator cuff repair. I attest to the content of the Intraoperative Record and any orders documented therein. Any exceptions are noted below.
[2023-01-29] MEDS: fentaNYL citrate PF 100 MCG/2 ML VIAL IV PRN ×5 (14:08→14:30)
[2023-01-29] MEDS ORDERED: ACETAMINOPHEN 1000 MG/100 ML IV IV ONE (14:33)
[2023-01-29] MEDS ORDERED: HYDROmorphone INJ 1 MG/ML SYRINGE ONE (14:33)
[2023-01-29] MEDS ORDERED: ACETAMINOPHEN 1,000 MG/100 ML VIAL IV STA (14:34)
[2023-01-29] MEDS ORDERED: ePHEDrine sulfate 50 MG/ML AMP IV PRN (14:34)
[2023-01-29] MEDS ORDERED: ATROPINE SULFATE 0.1 MG/ML 10ML SYR IV PRN (14:34)
[2023-01-29] MEDS: HYDROmorphone INJ 1 MG/ML SYRINGE IV PRN ×8 (14:35→15:10)
--- NOTE | 2023-01-29 14:35 | Anesthesiology Progress Note ---
Date of Service January 29, 2023 Anesthesia Post Procedure Vital Signs Vital Signs: Temp Pulse Resp BP Pulse Ox O2 Del Method O2 Flow Rate 01/29/23 14:15 68 16 127/72 100 Oxymask 5 01/29/23 14:08 36.6 C 78 16 154/69 H 100 Oxymask 5 01/29/23 10:12 36.7 C 76 18 164/96 H 94 Room Air Pain Intensity Right Shoulder: Pain Intensity: 7 Transfer of Care Handoff Completed per policy Notes Mental Status: alert / awake / arousable Patient Amnestic to Procedure: Yes Nausea / Vomiting: adequately controlled Pain: adequately controlled Airway Patency, RR, SpO2: stable & adequate BP & HR: stable & adequate Hydration State: stable & adequate Anesthetic Complications: no major complications apparent and Pt Satisfied with anesthetic care
[2023-01-29] MEDS ORDERED: ONDANSETRON INJ 2 MG/ML 2 ML VIAL IV PRN (15:48)
[2023-01-29] MEDS ORDERED: tiZANidine HCL 4 MG TABLET PO PRN (15:48)
[2023-01-29] MEDS ORDERED: HYDROmorphone INJ 0.5 MG/0.5 ML SYR IV PRN (15:48)
[2023-01-29] MEDS ORDERED: NALOXONE HCL 0.4 MG/1 ML VIAL/CARP IV PRN (15:48)
[2023-01-29] MEDS ORDERED: bisacodyL 10 MG SUPP PR PRN (15:48)
[2023-01-29] MEDS ORDERED: LOPERAMIDE HCL 2 MG CAP PO PRN (15:48)
[2023-01-29] MEDS ORDERED: MAGNESIUM HYDROXIDE SUSP 30 ML UDC PO PRN (15:48)
[2023-01-29] MEDS ORDERED: POLYETHYLENE (MIRALAX) 17 GM PACK PO PRN (15:48)
[2023-01-29] MEDS ORDERED: PHARMACY GLYCEMIC MGMT CONSULT PRN (15:48)
[2023-01-29] MEDS ORDERED: METOCLOPRAMIDE HCL INJ 5 MG/ML 2 ML VIAL IV PRN (15:48)
[2023-01-29] MEDS ORDERED: PROMETHAZINE HCL 25 MG TAB PO PRN (15:48)
[2023-01-29] MEDS: SODIUM CHLORIDE 0.9% 1000ML 1,000 ML IV SCH (15:53)
[2023-01-29] MEDS ORDERED: GLUCAGON FOR INJ 1 MG VIAL IM PRN (16:30)
[2023-01-29] MEDS ORDERED: DEXTROSE 50% 50 ML SYRINGE IV PRN (16:30)
[2023-01-29] MEDS ORDERED: GLUCOSE 10 TAB/TUBE PO PRN (16:30)
[2023-01-29] MEDS ORDERED: CARBOHYDRATES FOR HYPOGLYCEMIA PO PRN (16:30)
[2023-01-29] MEDS ORDERED: GLUCOSE 40% GEL 15 GM TUBE PO PRN (16:30)
--- NOTE | 2023-01-29 17:25 | Hospitalist Consultation ---
Date of Consultation January 29, 2023 Assessment & Plan (1) S/P right rotator cuff repair: - Pain management, bowel regimen and DVT ppx per the primary team - PT/OT consults, pt is planning on outpatient therapy - Follow am CBC to monitor for acute blood loss (2) Acute respiratory failure with hypoxia: - Appears to be secondary to narcotic use in the PACU, patient received multiple doses of IV Dilaudid totaling 2.25 mg IV as well as fentanyl 100 mcg IV -patient is conversing without difficulty, appears comfortable yet rates her pain as a 5/10. -As needed Narcan available-discussed with nurse -Patient came acutely hypoxic with sats in the 60s requiring 9 L NC, improved with wakening in conversation, O2 sats 96% at bedside on for L, does not wear supplemental O2 at baseline -No underlying respiratory issues -If becomes hypoxic again then patient will need transferred to upgraded floor with telemetry -Holding home trazodone and Zanaflex this evening due to acute hypoxia (3) Chronic heart failure with preserved ejection fraction (HFpEF): (4) Hypertension: (5) Hyperlipidemia: -May continue metoprolol in the a.m. pending holding parameters, -Continue atorvastatin 40 mg -Patient is on Eliquis 5 mg twice daily for history of PE -Continue Lasix 40 mg every morning, monitor for acute volume overload, appears to be euvolemic currently (6) Cyclical vomiting: -History of such, has not happened for the past 2 years, she has a Mediport in her right upper chest wall which has been accessed for IV fluids, patient was told by provider to keep Mediport access. (7) Anxiety: -May continue BuSpar prn DVT PPx: - teds, scds, resume Eliquis as per the primary team CODE: Full code Dispo: From home, likely to remain in the hospital x 1-2 days A total of 45 minutes were spent with greater than 50% of that time face to face with the patient, personally reviewing all current laboratories, imaging studies, past medication reconciliation, outpatient chart review, and discussion with specialists to collaborate care for the patient with attending. Please see attending documentation for corrections and/or additions. Supervising Physician Co-Signing Physician Notes Patient seen and examined independently. Chart reviewed. Case discussed with EDDY. Agree with above History of Present Illness Reason for Consultation: Hypoxia postoperatively, medical management Requesting Physician: Dr. Rosado Attending Physician: Michael Rosado MD History of Present Illness This is a 73-year-old female with PMHx of CAD, CHF with preserved EF, HTN, HLD, DM type II, hypothyroidism, PTSD, restless leg, history of C. difficile, migraine who presents to the hospital after elective right shoulder rotator cuff repair and revision by Dr. Rosado on 01/29/2023. After patient was sent up from the PACU to the floor, patient was found at a 30- minute check to be asleepwith O2 sats in the 60s and required being turned up to 9 L. Her surgical arm was positioned up behind her head, and out of the sling. Upon awakening by nursing personnel, she had improvement in her O2 sats to 97% and was able to be turned down to 4 L. Family friend is present at bedside. During our conversation she is able to answer all my questions without difficulty, answers appropriately, and denies feeling short of breath. Denies any underlying lung conditions such as asthma, COPD, never a smoker, no marijuana use. She rates her pain as a 5/10 although appears completely comfortable during our discussion. She is able to confirm her home meds with me, and we have decided to hold trazodone and Zanaflex. Instructions were based do not administer any further opioid this evening, and may possibly use Narcan if necessary. Charge nurse is present at bedside. Allergies Allergy/AdvReac Type Severity Reaction Status Date / Time latex Allergy Intermediate Rash Verified 01/29/23 10:08 nickel Allergy Intermediate SEVERE Verified 01/29/23 10:08 DERMATITIS NSAIDS (Non-Steroidal Allergy Intermediate HX OF Verified 01/29/23 10:08 Anti-Inflamma BLEEDING ULCERS-TO AVOID adhesive tape AdvReac Intermediate SKIN Verified 01/29/23 10:08 IRRITATION aspirin AdvReac Intermediate full dose Verified 01/29/23 10:08 asa -> bleeding ulcers Home Medications Medication Instructions Recorded Confirmed Type atorvastatin 40 mg tablet (Lipitor) 40 mg PO QAM 12/13/18 01/29/23 History buspirone 10 mg tablet 10 mg PO TID PRN Anxiety 12/13/18 01/29/23 History levothyroxine 75 mcg tablet 75 mcg PO DAILYBB 12/13/18 01/29/23 History polyethylene glycol 3350 17 gram 17 g PO DAILY PRN Constipation 05/12/19 01/29/23 History oral powder packet promethazine 25 mg tablet 25 mg PO Q6H PRN Nausea 05/12/19 01/29/23 History epinephrine 0.3 mg/0.3 mL 0.3 mg IM Q3H PRN Allergic Reaction 05/23/19 01/29/23 History injection syringe nitroglycerin 0.3 mg sublingual 0.3 mg sublingual UD PRN Chest Pain 05/23/19 01/29/23 History tablet (Nitrostat) olopatadine 0.2 % eye drops 1 drp OPB QAM 05/23/19 01/29/23 History tizanidine 4 mg tablet 4 mg PO BID PRN Muscle Spasm 04/03/20 01/29/23 History trazodone 100 mg tablet 200 mg PO HS 04/03/20 01/29/23 History furosemide 20 mg tablet 40 mg PO QAM 10/05/20 01/29/23 History metformin 500 mg tablet 500 mg PO BIDM 10/05/20 01/29/23 History loperamide 2 mg capsule 2 mg PO QID PRN Diarrhea 02/15/21 01/29/23 History apixaban 5 mg tablet (Eliquis) 5 mg PO BID 10/11/21 01/29/23 History aspirin 81 mg tablet,delayed 81 mg PO QAM 01/20/23 01/29/23 History release metoprolol succinate 100 mg 100 mg PO QAM 01/20/23 01/29/23 History tablet,extended release 24 hr semaglutide 2 mg/dose (8 mg/3 mL) 2 mg subcut WK 01/20/23 01/29/23 History subcutaneous pen injector (Ozempic) spironolactone 25 mg tablet 25 mg PO QAM 01/20/23 01/29/23 History sodium di- and 1 tab PO BID #6 tabs 01/26/23 01/29/23 Rx monophosphate-potassium phos monobasic 250 mg tablet (Phospha Neutral) lubiprostone 24 mcg capsule 24 mcg PO BID #60 caps 01/28/23 01/29/23 Rx (Amitiza) Patient History Medical History Anemia Anxiety CAD (coronary artery disease) BMS to LAD (2017) Cervical spondylolysis Chronic heart failure with preserved ejection fraction (HFpEF) Cyclic vomiting syndrome Deep vein thrombosis ~2014, unknown cause Degenerative disc disease Depression Diabetes mellitus, type 2 Dyslipidemia GI bleed Hx (declined AC d/t hx of GIB per records) History of COVID-19 10/2021 - treated inpatient at [facility]/Covid PNA Hx of Clostridium difficile infection Remote hx Hyperlipidemia Hypertension Hypothyroidism Migraine Hx, no recent issues Myocardial Infarction 2017 Osteoarthritis Post traumatic stress disorder Pulmonary embolism ~2014 (UNSURE OF REASON) Restless leg syndrome Scoliosis Surgical History (Updated 01/29/23 @ 18:00 by Rayne Osborne PA-C) Fusion of spine LUMBAR H/O ovarian cystectomy x2 H/O repair of right rotator cuff H/O spinal fusion Multiple History of adenoidectomy History of anesthesia reaction Awareness with spinal surgeries History of appendectomy History of back surgery has bilateral SI Joint replacements (~2020 at [facility]) History of cataract surgery LEFT AND RIGHT History of colonoscopy History of esophagogastroduodenoscopy (EGD) History of heart artery stent 2016-x2 STENTS PLACED AT [facility] (DR. DAVILA) History of laminectomy and fusion "entire spine is fused(except cervical spine)" [facility] [place] (Dr Catherine) History of tonsillectomy History of vascular access device Left upper chest port (*not a power port*) S/P hardware removal removal of all back hardware (~2002) Barney Archuleta Family History Mother Hypertension Father Hypertension Other No family history of adverse response to anesthesia Social History Smoking Status: Never smoker Second Hand Exposure: No; Do You Dip or Chew Tobacco: No; Tobacco Cessation Education Requested by Patient: No Hx Alcohol Use: No Hx Substance Use: No Preferred Language: Welsh Communication Ability: Effective Visual Impairment: Limited Hearing Ability: Normal Manager Application Required: No Beliefs That Will Affect Care: None marital status: Current Living Situation: Alone current occupational status: retired How many Children do You have: 2 Other Information That Helps Us Care for You: No Feels Safe at Home: Yes Safety Concerns: Feels Safe At This Time Assistive Devices: Denture - Lower and Glasses Assistive Devices Comment: bottom partial Review of Systems Review of Systems: Constitutional: No fever, sweats or chills Eyes: No diplopia, no worsening or blurred vision ENT: normal hearing, no trouble swallowing Respiratory: No cough, sputum, dyspnea at rest or on exertion Cardiovascular: No chest pain, tightness or palpitations Abdomen: No pain, nausea, vomiting, diarrhea or constipation Musculoskeletal: R shoulder joint pain is moderate, no calf pain, no swelling Neurologic: No weakness, numbness/tingling, or balance problems Psychiatric: No anxiety or depression Skin: No rash or itch Physical Exam Physical Exam: General: awake, alert, no apparent distress, + obese BMI 32.9 Head: Normocephalic, atraumatic ENT: + Pinpoint pupils, EOMI, no pharyngeal exudate, mucous membranes moist Chest: Clear to auscultation, on room air, no adventitious breath sounds Cardiac: Regular rate and rhythm, no murmur, no JVD, normal peripheral pulses, good capillary refill Abdominal: NABS x 4 quadrants, soft, nondistended, nontender to palpation, no rebound or guarding Extremities: Right shoulder dressing C/D/I, in a sling,, normal inspection, no peripheral edema or erythema, calfs nontender to palpation Psych: Normal mood and affect Neuro: AAO x 3, + pupils are pinpoint and sluggishly reactive to light bilaterally, strength intact bilaterally and rated 5/5, no motor deficits, speech is clear, no peripheral sensory deficits, + good street and building decorator strength in the right upper extremity, no numbness in right hand compared to the left with light touch. Results & Data Results & Data Vital Signs (Past 12 Hours) Vital Signs Temp Pulse Resp BP Pulse Ox O2 Del Method O2 Flow Rate 01/29/23 16:17 36.8 C 88 17 129/69 96 Nasal Cannula 4 01/29/23 15:45 36.8 C 72 18 125/63 97 Nasal Cannula 2 01/29/23 15:24 36.5 C 68 15 126/65 99 Nasal Cannula 2 01/29/23 15:15 36.5 C 84 15 113/55 L 98 Nasal Cannula 2 01/29/23 15:05 62 15 115/58 L 100 Oxymask 5 01/29/23 14:35 61 16 117/65 99 Oxymask 5 01/29/23 14:55 63 15 113/59 L 99 Oxymask 5 01/29/23 14:45 65 16 126/59 L 100 Oxymask 5 01/29/23 14:25 61 16 119/63 94 Oxymask 5 01/29/23 14:15 68 16 127/72 100 Oxymask 5 01/29/23 14:08 36.6 C 78 16 154/69 H 100 Oxymask 5 01/29/23 10:12 36.7 C 76 18 164/96 H 94 Room Air
[2023-01-29] MEDS: INSULIN ASPART PER UNIT CHARGE SC SCH ×2 (17:43→20:49)
[2023-01-29] MEDS: APIXABAN 5 MG TABLET PO SCH (19:43)
[2023-01-29] MEDS: ceFAZolin 2000MG 2,000 MG/15 ML SYR IV SCH (19:43)
[2023-01-29] MEDS: LUBIPROSTONE 8 MCG CAP PO SCH (19:44)
[2023-01-29] MEDS: DOCUSATE SODIUM 100 MG CAP PO SCH (19:44)
[2023-01-29] MEDS: POT PHOSPHATE MONOBASIC W/ SOD TAB PO SCH (19:46)
[2023-01-29] MEDS: SENNA 8.6 MG TAB PO SCH (19:46)
[2023-01-29] MEDS ORDERED: NURSING DECISION MEDICATION PRN (19:56)
[2023-01-29] MEDS ORDERED: COUGH DROP (SUGAR FREE) LOZ 24 LOZ/1 BOX BUCCAL PRN (20:00)
[2023-01-29] MEDS: oxyCODONE HCL IR 5 MG TAB (IMMEDIATE RELEASE) PO PRN (20:23)
[2023-01-29] MEDS ORDERED: traZODone HCL 100 MG TAB PO SCH (21:00)
[2023-01-29] MEDS ORDERED: LANTUS PER UNIT CHARGE SQ SCH (21:00)
[2023-01-29] MEDS: ACETAMINOPHEN 500 MG TAB PO SCH (21:35)
[2023-01-29] MEDS: HYDROmorphone INJ 0.5 MG/0.5 ML SYR IV PRN (22:32)
[2023-01-30] MEDS: SODIUM CHLORIDE 0.9% 1000ML 1,000 ML IV SCH (01:16)
[2023-01-30] MEDS: oxyCODONE HCL IR 5 MG TAB (IMMEDIATE RELEASE) PO PRN ×2 (01:19→06:16)
[2023-01-30] MEDS: ceFAZolin 2000MG 2,000 MG/15 ML SYR IV SCH (03:39)
[2023-01-30] MEDS: HYDROmorphone INJ 0.5 MG/0.5 ML SYR IV PRN ×5 (03:44→20:11)
[2023-01-30] MEDS: LEVOTHYROXINE SODIUM 75 MCG TABLET PO SCH (06:14)
[2023-01-30] MEDS: ACETAMINOPHEN 500 MG TAB PO SCH ×3 (06:16→21:49)
[2023-01-30] MEDS: APIXABAN 5 MG TABLET PO SCH ×2 (08:41→20:06)
[2023-01-30] MEDS: FUROSEMIDE 40 MG TAB PO SCH (08:41)
[2023-01-30] MEDS: ASPIRIN 81 MG ECTAB PO SCH (08:41)
[2023-01-30] MEDS: METOPROLOL SUCC 50MG EXT REL TAB PO SCH (08:42)
[2023-01-30] MEDS: MULTIVITAMIN TAB PO SCH (08:42)
[2023-01-30] MEDS: LUBIPROSTONE 8 MCG CAP PO SCH ×2 (08:42→20:07)
[2023-01-30] MEDS: ATORVASTATIN 40 MG TAB PO SCH (08:42)
[2023-01-30] MEDS: DOCUSATE SODIUM 100 MG CAP PO SCH ×2 (08:43→20:07)
[2023-01-30] MEDS: SPIRONOLACTONE 25 MG TAB PO SCH (08:43)
[2023-01-30] MEDS: POT PHOSPHATE MONOBASIC W/ SOD TAB PO SCH ×2 (08:43→20:09)
--- NOTE | 2023-01-30 09:06 | Pharmacy Report ---
Glycemic Ortho Sign Off Note - Date of Service January 30, 2023 - Scope Glycemic Pharmacist consulted for glycemic control and to write orders per [facility] inpatient glycemic control protocol. - Objective Accuchecks BSG (last 24hrs):: 01/29/23 01/29/23 01/29/23 10:21 14:12 16:51 POC Glucose 97 134 H 115 H 01/29/23 01/30/23 20:42 08:13 POC Glucose 140 H 127 H - Assessment * Pt is maintained on oral antidiabeticagentsas anoutpatient with excellent control per recent A1c * Oral agents are not recommended for inpatient use d/t drug interactions, changing PO intake, and difficulty titrating for acute hyper/hypoglycemia. * Recommended regimen for inpatient use is SQ insulin * Low stress weight based insulin dosing appropriate since patient has minimal risk factors for insulin resistance (i.e. no steroids). * Appropriate to DC insulin and resume outpatient antidiabetic regimen at discharge * Goal is to maintain BSGs <200 mg/dl (ideally <150 mg/dl) to prevent post op complications - Plan For Inpatient Glycemic Control * Basal insulin * Not needed based on A1c, pre-op BSGs, and minimal risk factors for insulin resistance * Bolus insulin * Utilize low stress weight based NovoLog parameters per scale ACHS * Pharmacy has entered glycemic orders and is signing off of the glycemic consult. We will no longer be making adjustments to inpatient regimen. Please feel free to re-consult if needed. Thank you.
--- NOTE | 2023-01-30 09:13 | Hospitalist Progress Note ---
Date of Service January 30, 2023 Assessment & Plan (1) S/P right rotator cuff repair: Plan: - Pain management, bowel regimen and DVT ppx per the primary team - PT/OT consults - Hgb 11.9 - acute blood loss anemia, post-op, vs. dilutional - no need for blood transfusion (2) Acute respiratory failure with hypoxia: Plan: -Appears to be secondary to narcotic use in the PACU, patient received multiple doses of IV Dilaudid totaling 2.25 mg IV as well as fentanyl 100 mcg IV -patient is conversing without difficulty, appears comfortable -Patient came acutely hypoxic with sats in the 60s requiring 9 L NC, does not wear supplemental O2 at baseline -per pt , no underlying respiratory issues -Holding home trazodone and Zanaflex last evening due to acute hypoxia 01/30 patient seen this morning, on room air, breathing comfortably. On physical exam clear to auscultation. Patient reports using incentive spirometer. Saturating 96% on room air Hypomagnesemia - replete and monitor (3) Chronic heart failure with preserved ejection fraction (HFpEF): (4) Hypertension: (5) Hyperlipidemia: Plan: -May continue metoprolol w/holding parameters -Continue atorvastatin 40 mg -Patient is on Eliquis 5 mg twice daily for history of PE -Continue Lasix 40 mg every morning, monitor for acute volume overload, appears to be euvolemic currently (6) Cyclical vomiting: Plan: -History of such, has not happened for the past 2 years, she has a Mediport in her right upper chest wall which has been accessed for IV fluids, patient was told by provider to keep Mediport access. (7) Anxiety: Plan: -May continue BuSpar prn DVT PPx: - teds, scds, resume Eliquis as per the primary team CODE: Full code Admission and Anticipated Discharge Date Admission Date: January 29, 2023 Subjective Pt seen in follow up of med consult for post-op hypoxia Status post right shoulder surgery yesterday This morning patient seen in the bathroom, brushing her teeth, without any assistance She is currently on room air, and having no difficulty breathing Also denies any fevers chills chest pain, denies abdominal pain, nausea vomiting Reports using incentive spirometer Review of Systems Review of Systems: All systems reviewed & are unremarkable except as noted in Subjective Physical Exam Physical Exam: General: WD/WN F in NAD Head: Normocephalic, atraumatic ENT: EOMI, mucous membranes moist Chest: Clear to auscultation, on room air, no adventitious breath sounds Cardiac: Regular rate and rhythm, no murmur, no JVD Abdominal: NABS x 4 quadrants, soft, nondistended, nontender to palpation Extremities: Right shoulder dressing C/D/I, in a sling, otherwise moves extremities Psych: Normal mood and affect Neuro: AAO x 3, speech is fluent, no facial asymmetry, moves extremities Results & Data Results & Data Vital Signs (Past 12 Hours) Vital Signs Temp Pulse Resp BP Pulse Ox O2 Del Method O2 Flow Rate 01/30/23 07:49 37.2 C 75 16 118/73 93 Nasal Cannula 2 01/30/23 04:00 37.1 C 81 18 147/79 H 95 Nasal Cannula 01/29/23 23:28 36.9 C 82 18 138/81 95 Nasal Cannula 2 Laboratory Results 01/30/23 01/30/23 01/30/23 Range/Units 12:03 11:22 11:22 WBC 11.46 H (4.8-10.8) K/ul RBC 3.70 L (4.20-5.40) M/uL Hgb 11.9 L (12.0-16.0) g/dl Hct 34.3 L (37.0-47.0) % MCV 92.7 (80.0-100.0) fL MCH 32.2 (25.0-34.0) pg MCHC 34.7 (32.0-36.0) g/dL RDW Std Deviation 48.4 H (36.4-46.3) fL RDW Coeff of Arden 14.4 (11.5-14.5) % Plt Count 244 (130-400) K/uL MPV 9.8 (9.4-12.4) fL Sodium 139 (136-145) mmol/L Potassium 3.6 (3.5-5.1) mmol/L Chloride 107 (98-107) mmol/L Carbon Dioxide 27 (21-32) mmol/L Anion Gap 5 (3-11) BUN 7 (6-23) mg/dl Creatinine 0.75 (0.6-1.2) mg/dl Est Cr Clr Drug Dosing 69.1 ml/min Est GFR ( Amer) 90.4 ml/min Est GFR (Non-Af Amer) 78.0 ml/min BUN/Creatinine Ratio 9.3 L (10-20) Glucose 101 H (70-99(Fasting)) mg/dl POC Glucose 144 H (70-99) mg/dl Estimat Average Glucose Hemoglobin A1c Calcium 8.5 L (8.6-10.3) mg/dl Phosphorus 3.2 (2.5-4.9) mg/dl Magnesium 1.5 L (1.7-2.4) mg/dl 01/30/23 01/30/23 01/29/23 Range/Units 11:22 08:13 20:42 WBC (4.8-10.8) K/ul RBC (4.20-5.40) M/uL Hgb (12.0-16.0) g/dl Hct (37.0-47.0) % MCV (80.0-100.0) fL MCH (25.0-34.0) pg MCHC (32.0-36.0) g/dL RDW Std Deviation (36.4-46.3) fL RDW Coeff of Arden (11.5-14.5) % Plt Count (130-400) K/uL MPV (9.4-12.4) fL Sodium (136-145) mmol/L Potassium (3.5-5.1) mmol/L Chloride (98-107) mmol/L Carbon Dioxide (21-32) mmol/L Anion Gap (3-11) BUN (6-23) mg/dl Creatinine (0.6-1.2) mg/dl Est Cr Clr Drug Dosing ml/min Est GFR ( Amer) ml/min Est GFR (Non-Af Amer) ml/min BUN/Creatinine Ratio (10-20) Glucose (70-99(Fasting)) mg/dl POC Glucose 127 H 140 H (70-99) mg/dl Estimat Average Glucose Pending Hemoglobin A1c Pending Calcium (8.6-10.3) mg/dl Phosphorus (2.5-4.9) mg/dl Magnesium (1.7-2.4) mg/dl 01/29/23 01/29/23 Range/Units 16:51 14:12 WBC (4.8-10.8) K/ul RBC (4.20-5.40) M/uL Hgb (12.0-16.0) g/dl Hct (37.0-47.0) % MCV (80.0-100.0) fL MCH (25.0-34.0) pg MCHC (32.0-36.0) g/dL RDW Std Deviation (36.4-46.3) fL RDW Coeff of Arden (11.5-14.5) % Plt Count (130-400) K/uL MPV (9.4-12.4) fL Sodium (136-145) mmol/L Potassium (3.5-5.1) mmol/L Chloride (98-107) mmol/L Carbon Dioxide (21-32) mmol/L Anion Gap (3-11) BUN (6-23) mg/dl Creatinine (0.6-1.2) mg/dl Est Cr Clr Drug Dosing ml/min Est GFR ( Amer) ml/min Est GFR (Non-Af Amer) ml/min BUN/Creatinine Ratio (10-20) Glucose (70-99(Fasting)) mg/dl POC Glucose 115 H 134 H (70-99) mg/dl Estimat Average Glucose Hemoglobin A1c Calcium (8.6-10.3) mg/dl Phosphorus (2.5-4.9) mg/dl Magnesium (1.7-2.4) mg/dl Medications Administered Current Inpatient Medications Acetaminophen (Acetaminophen 500 Mg Tab) 1,000 mg PO Q8 [facility] Stop: 02/28/23 21:59 Last Admin: 01/30/23 06:16 Dose: 1,000 mg Apixaban (Apixaban 5 Mg Tablet) 5 mg PO BID COLT Stop: 02/28/23 20:59 Last Admin: 01/30/23 08:41 Dose: 5 mg Aspirin (Aspirin 81 Mg Ectab) 81 mg PO QAM COLT Stop: 03/01/23 08:59 Last Admin: 01/30/23 08:41 Dose: 81 mg Atorvastatin Calcium (Atorvastatin 40 Mg Tab) 40 mg PO QAM [facility] Stop: 03/01/23 08:59 Last Admin: 01/30/23 08:42 Dose: 40 mg Bisacodyl (Bisacodyl 10 Mg Supp) 10 mg MO DAILY PRN PRN Reason: Constipation Stop: 02/28/23 15:47 Buspirone HCl (Buspirone 5 Mg Tab) 10 mg PO TID PRN PRN Reason: Anxiety Stop: 02/28/23 15:47 Dextrose (Dextrose 50% 50 Ml Syringe) 25 - 50 ml IV UD PRN; Protocol PRN Reason: Hypoglycemia Protocol Stop: 02/28/23 16:29 Docusate Sodium (Docusate Sodium 100 Mg Cap) 100 mg PO BID [facility] Stop: 02/28/23 20:59 Last Admin: 01/30/23 08:43 Dose: 100 mg Furosemide (Furosemide 40 Mg Tab) 40 mg PO QAM COLT Stop: 03/01/23 08:59 Last Admin: 01/30/23 08:41 Dose: 40 mg Glucagon (Glucagon For Inj 1 Mg Vial) 1 mg IM UD PRN; Protocol PRN Reason: Hypoglycemia Protocol Stop: 02/28/23 16:29 Glucose (Glucose 40% Gel 15 Gm Tube) 15 - 30 gm PO UD PRN; Protocol PRN Reason: Hypoglycemia Protocol Stop: 02/28/23 16:29 Glucose (Glucose 10 Tab/Tube) 4 - 8 tab PO UD PRN; Protocol PRN Reason: Hypoglycemia Protocol Stop: 02/28/23 16:29 Heparin Sodium (Porcine) (Heparin 100 Unit/Ml 5ml Flush) 5 ml FLUSH PRN PRN PRN Reason: Flush Stop: 03/01/23 00:59 Hydromorphone HCl (Hydromorphone Inj 0.5 Mg/0.5 Ml Syr) 0.25 mg IV Q3H PRN PRN Reason: Pain (1,2,3,4,5) & Pre PT Stop: 02/12/23 15:47 Hydromorphone HCl (Hydromorphone Inj 0.5 Mg/0.5 Ml Syr) 0.5 mg IV Q3H PRN PRN Reason: Pain (6,7,8,9,10) Stop: 02/12/23 15:47 Last Admin: 01/30/23 08:48 Dose: 0.5 mg Insulin Aspart (Insulin Aspart Per Unit Charge) 0 units SC ACHS [facility] Stop: 02/28/23 16:29 Last Admin: 01/29/23 20:49 Dose: Not Given Levothyroxine Sodium (Levothyroxine Sodium 75 Mcg Tablet) 75 mcg PO DAILYBB [facility] Stop: 03/01/23 06:29 Last Admin: 01/30/23 06:14 Dose: 75 mcg Loperamide HCl (Loperamide Hcl 2 Mg Cap) 2 mg PO QID PRN PRN Reason: Diarrhea Stop: 02/28/23 15:47 Lubiprostone (Lubiprostone 8 Mcg Cap) 24 mcg PO BID [facility] Stop: 02/28/23 20:59 Last Admin: 01/30/23 08:42 Dose: 24 mcg Magnesium Hydroxide (Magnesium Hydroxide Susp 30 Ml Udc) 30 ml PO Q6H PRN PRN Reason: Constipation Stop: 02/28/23 15:47 Menthol (Cough Drop (Sugar Free) Kolby 24 Kolby/1 Box) 1 kolby BUCCAL PRN PRN PRN Reason: Cough Stop: 02/28/23 19:59 Last Admin: 01/29/23 20:20 Dose: 1 kolby Metoclopramide HCl (Metoclopramide Hcl Inj 5 Mg/Ml 2 Ml Vial) 10 mg IV Q6H PRN PRN Reason: Nausea And Vomiting Stop: 02/28/23 15:47 Metoprolol Succinate (Metoprolol Succ 50mg Ext Rel Tab) 100 mg PO QAM [facility] Stop: 03/01/23 08:59 Last Admin: 01/30/23 08:42 Dose: 100 mg Miscellaneous (Order Awaiting Action: Olopatadine 0.2% Drops) 1 each N/A QS [facility] Stop: 03/01/23 00:00 Last Admin: 01/30/23 08:43 Dose: Not Given Miscellaneous (Carbohydrates For Hypoglycemia ) 15 - 30 gm PO UD PRN PRN Reason: Hypoglycemia Treatment Stop: 02/28/23 16:29 Miscellaneous Information (Pharmacy Glycemic Mgmt Consult) 1 each N/A UD PRN PRN Reason: Consult Stop: 02/28/23 15:47 Multivitamins (Multivitamin Tab) [facility] Stop: 03/01/23 08:59 Last Admin: 01/30/23 08:42 Dose: 1 tab Naloxone HCl (Naloxone Hcl 0.4 Mg/1 Ml Vial/Carp) 0.1 mg IV Q5M PRN PRN Reason: Oversedation/Resp Depression Stop: 02/28/23 15:47 Ondansetron HCl (Ondansetron Inj 2 Mg/Ml 2 Ml Vial) 4 mg IV Q6H PRN PRN Reason: Nausea And Vomiting Stop: 02/28/23 15:47 Oxycodone HCl (Oxycodone Hcl Ir 5 Mg Tab (Immediate Release)) 5 - 10 mg PO Q4H PRN PRN Reason: Pain or Pre PT Stop: 02/12/23 15:47 Last Admin: 01/30/23 06:16 Dose: 10 mg Polyethylene Glycol (Polyethylene (Miralax) 17 Gm Pack) 17 gm PO DAILY PRN PRN Reason: Constipation Stop: 02/28/23 15:47 Potassium Phosphate (Pot Phosphate Monobasic W/ Sod Tab) 1 tab PO BID [facility] Stop: 02/28/23 20:59 Last Admin: 01/30/23 08:43 Dose: 1 tab Promethazine HCl (Promethazine Hcl 25 Mg Tab) 25 mg PO Q6H PRN PRN Reason: Nausea Stop: 02/28/23 15:47 Sennosides (Senna 8.6 Mg Tab) 17.2 mg PO HS [facility] Stop: 02/28/23 20:59 Last Admin: 01/29/23 19:46 Dose: 17.2 mg Spironolactone (Spironolactone 25 Mg Tab) 25 mg PO QAM [facility] Stop: 03/01/23 08:59 Last Admin: 01/30/23 08:43 Dose: 25 mg
[2023-01-30] MEDS: INSULIN ASPART PER UNIT CHARGE SC SCH ×4 (09:44→21:02)
[2023-01-30 11:56] LABS: Hematocrit (blood only) 34.3 % (37.0-47.0); Hemoglobin 11.9 g/dl (12.0-16.0); Mean Corpuscular Hemoglobin 32.2 pg (25.0-34.0); Mean Corpuscular Hgb Conc 34.7 g/dL (32.0-36.0); Mean Corpuscular Volume 92.7 fL (80.0-100.0); Mean Platelet Volume 9.8 fL (9.4-12.4); Platelet Count 244 K/uL (130-400); RDW Coefficient of Variation 14.4 % (11.5-14.5); RDW Standard Deviation 48.4 fL (36.4-46.3); White Blood Count 11.46 K/ul (4.8-10.8)
[2023-01-30] MEDS: HEPARIN 100 UNIT/ML 5ML FLUSH FLUSH PRN ×4 (12:05→20:12)
[2023-01-30 12:07] LABS: BUN Creatinine Ratio 9.3 (10-20); Calcium 8.5 mg/dl (8.6-10.3); Creatinine Clr Calc Pharmacy 69.1 ml/min; Est GFR (African American) 90.4 ml/min; Magnesium 1.5 mg/dl (1.7-2.4); Phosphorus 3.2 mg/dl (2.5-4.9); Potassium 3.6 mmol/L (3.5-5.1)
[2023-01-30] MEDS ORDERED: POTASSIUM CHLORIDE CRTAB 20 MEQ TABCR PO STA (12:09)
[2023-01-30] MEDS: MAGNESIUM OXIDE 400 MG TAB PO SCH (12:49)
[2023-01-30] MEDS: MAGNESIUM SULFATE / D5W 1 GM/100 ML BAG IV SCH ×2 (12:50→14:31)
--- NOTE | 2023-01-30 15:18 | Orthopedic Progress Note ---
Date of Service January 30, 2023 Assessment & Plan (1) S/P right rotator cuff repair: S/p R Shoulder Arthroscopy, Rotator Cuff Repair, Subacromial Decompression, Biceps Tenodesis (DOS 01/30/2023; Dr. Rosado) -Progressing as expected from Orthopedic standpoint -Pain control is an ongoing issue, requiring ongoing IV dilaudid for adequate pain relief. Encouraged her to try to rely more on PO oxycodone/Tylenol. -PT/OT consulted. Needs sling at all times but OK to remove several times a day for gentle ROM exercises at wrist and elbow, Codman's exercises. NWB/No lifting w/ RUE. -Appreciate Medicine assistance regarding respiratory failure/electrolyte derangements. Dispo: PT/OT recommending inpatient rehab. Care management following. Continue inpatient management for now until she can improve more with PT/OT and is not requiring IV pain medication. Discussed w/ Dr. Rosado. Subjective Having a lot of pain today, requiring consistent IV dilaudid to manage. Medicine now follow d/t post op hypoxemia, presumed d/t narcotic use. Denies SOB, chest pain, abd pain. Review of Systems All systems reviewed & are unremarkable except as noted in HPI & below. Physical Exam General: Pleasant 73 y/o/m resting comfortably in NAD. AAO x 4. RUE: Dressing and sling left in place. Dressing C/D/I. Expected tenderness over R shoulder. Distally N/V/I . Results & Data Results & Data Laboratory Results Reviewed . Diagnostic Findings N/A . PG Care Time/CCT Total # of Minutes Spent Total Time Spent with Patient: Total time spent is greater than 50% in coordination of care (as documented) at patient's floor/unit and/or counseling patient: Coding Level of Care Code 30552 Post Operative Follow-Up Diagnoses S/P right rotator cuff repair Z98.890
[2023-01-30 15:26] LABS: Estimated Average Glucose 120 mg/dl; Hemoglobin A1C 5.8 % (4.5-5.6)
[2023-01-30] MEDS: SENNA 8.6 MG TAB PO SCH (20:09)
--- NOTE | 2023-01-30 21:45 | Electrocardiogram Report ---
Test Reason : Blood Pressure : / mmHG Vent. Rate : 074 BPM Atrial Rate : 074 BPM P-R Int : 194 ms QRS Dur : 084 ms QT Int : 394 ms P-R-T Axes : 065 -33 045 degrees QTc Int : 437 ms Normal sinus rhythm Left axis deviation Low voltage QRS Inferior infarct (cited on or before 18-JUN-2019) Cannot rule out Anterior infarct (cited on or before 18-JUN-2019) Abnormal ECG When compared with ECG of 26-JAN-2023 12:09, Aberrant conduction is no longer Present Vent. rate has decreased BY 41 BPM Nonspecific T wave abnormality now evident in Inferior leads Confirmed by Broderick Stewart ([id number]) on 01/30/2023 9:45:36 PM Referred By: Michael Rosado Confirmed By:Broderick Stewart
[2023-01-31] MEDS: HEPARIN 100 UNIT/ML 5ML FLUSH FLUSH PRN ×5 (00:26→20:39)
[2023-01-31] MEDS: HYDROmorphone INJ 0.5 MG/0.5 ML SYR IV PRN ×6 (00:26→20:38)
[2023-01-31] MEDS: LEVOTHYROXINE SODIUM 75 MCG TABLET PO SCH (05:48)
[2023-01-31] MEDS: ACETAMINOPHEN 500 MG TAB PO SCH ×3 (05:50→21:20)
--- NOTE | 2023-01-31 07:47 | Hospitalist Progress Note ---
Date of Service January 31, 2023 Assessment & Plan (1) S/P right rotator cuff repair: Plan: - Pain management, bowel regimen and DVT ppx per the primary team - PT/OT consults - post-op Hgb 11.9 ->11.0 - acute blood loss anemia, post-op, vs. dilutional - no need for blood transfusion, relat. stable from yesterday (2) Acute respiratory failure with hypoxia: Plan: -Appears to be secondary to narcotic use in the PACU, patient received multiple doses of IV Dilaudid totaling 2.25 mg IV as well as fentanyl 100 mcg IV -patient is conversing without difficulty, appears comfortable -Patient became acutely hypoxic with sats in the 60s requiring 9 L NC, does not wear supplemental O2 at baseline -per pt , no underlying respiratory issues -Holding home trazodone and Zanaflex evening of surgery due to acute hypoxia 01/30 patient seen this morning, on room air, breathing comfortably. On physical exam clear to auscultation. Patient reports using incentive spirometer. Saturating 96% on room air 01/31 Pt continues to do well. Saturating 95% on room air, breathing comfortably. Using incentive spirometer. Reports having some seasonal allergies Hypomagnesemia - replete and monitor (3) Chronic heart failure with preserved ejection fraction (HFpEF): (4) Hypertension: (5) Hyperlipidemia: Plan: -May continue metoprolol w/holding parameters -Continue atorvastatin 40 mg -Patient is on Eliquis 5 mg twice daily for history of PE -Continue Lasix 40 mg every morning, monitor for acute volume overload, appears to be euvolemic currently (6) Cyclical vomiting: Plan: -History of such, has not happened for the past 2 years, she has a Mediport in her right upper chest wall which has been accessed for IV fluids, patient was told by provider to keep Mediport access. (7) Anxiety: Plan: -May continue BuSpar prn DVT PPx: - teds, scds, resume Eliquis as per the primary team CODE: Full code Admission and Anticipated Discharge Date Admission Date: January 29, 2023 Subjective Pt seen in follow up of med consult for post-op hypoxia Status post right shoulder surgery She is currently on room air, and having no difficulty breathing Also denies any fevers chills chest pain, denies abdominal pain, nausea vomiting Reports using incentive spirometer Reports having seasonal allergies Review of Systems Review of Systems: All systems reviewed & are unremarkable except as noted in Subjective Physical Exam Physical Exam: General: WD/WN F in NAD Head: Normocephalic, atraumatic ENT: EOMI, mucous membranes moist Chest: Clear to auscultation, on room air, no adventitious breath sounds Cardiac: Regular rate and rhythm, no murmur, no JVD Abdominal: NABS x 4 quadrants, soft, nondistended, nontender to palpation Extremities: Right shoulder dressing C/D/I, in a sling, otherwise moves extremities Psych: Normal mood and affect Neuro: AAO x 3, speech is fluent, no facial asymmetry, moves extremities Results & Data Results & Data Vital Signs (Past 12 Hours) Vital Signs Temp Pulse Resp BP Pulse Ox O2 Del Method 01/30/23 20:06 Room Air 01/30/23 20:34 37.0 C 65 15 155/93 H 95 Room Air Laboratory Results 01/31/23 01/31/23 01/31/23 Range/Units 08:16 08:16 08:14 WBC 9.77 (4.8-10.8) K/ul RBC 3.42 L (4.20-5.40) M/uL Hgb 11.0 L (12.0-16.0) g/dl Hct 31.9 L (37.0-47.0) % MCV 93.3 (80.0-100.0) fL MCH 32.2 (25.0-34.0) pg MCHC 34.5 (32.0-36.0) g/dL RDW Std Deviation 47.9 H (36.4-46.3) fL RDW Coeff of Arden 14.1 (11.5-14.5) % Plt Count 196 (130-400) K/uL MPV 9.8 (9.4-12.4) fL Sodium 140 (136-145) mmol/L Potassium 3.6 (3.5-5.1) mmol/L Chloride 106 (98-107) mmol/L Carbon Dioxide 29 (21-32) mmol/L Anion Gap 5 (3-11) BUN 6 (6-23) mg/dl Creatinine 0.60 (0.6-1.2) mg/dl Est Cr Clr Drug Dosing 86.4 ml/min Est GFR ( Amer) 103.3 ml/min Est GFR (Non-Af Amer) 89.2 ml/min BUN/Creatinine Ratio 10.0 (10-20) Glucose 110 H (70-99(Fasting)) mg/dl POC Glucose 106 H (70-99) mg/dl Estimat Average Glucose mg/dl Hemoglobin A1c (4.5-5.6) % Calcium 8.2 L (8.6-10.3) mg/dl Phosphorus 2.4 L (2.5-4.9) mg/dl Magnesium 1.7 (1.7-2.4) mg/dl 01/30/23 01/30/23 01/30/23 Range/Units 20:37 17:05 12:03 WBC (4.8-10.8) K/ul RBC (4.20-5.40) M/uL Hgb (12.0-16.0) g/dl Hct (37.0-47.0) % MCV (80.0-100.0) fL MCH (25.0-34.0) pg MCHC (32.0-36.0) g/dL RDW Std Deviation (36.4-46.3) fL RDW Coeff of Arden (11.5-14.5) % Plt Count (130-400) K/uL MPV (9.4-12.4) fL Sodium (136-145) mmol/L Potassium (3.5-5.1) mmol/L Chloride (98-107) mmol/L Carbon Dioxide (21-32) mmol/L Anion Gap (3-11) BUN (6-23) mg/dl Creatinine (0.6-1.2) mg/dl Est Cr Clr Drug Dosing ml/min Est GFR ( Amer) ml/min Est GFR (Non-Af Amer) ml/min BUN/Creatinine Ratio (10-20) Glucose (70-99(Fasting)) mg/dl POC Glucose 91 136 H 144 H (70-99) mg/dl Estimat Average Glucose mg/dl Hemoglobin A1c (4.5-5.6) % Calcium (8.6-10.3) mg/dl Phosphorus (2.5-4.9) mg/dl Magnesium (1.7-2.4) mg/dl 01/30/23 01/30/23 01/30/23 Range/Units 11:22 11:22 11:22 WBC 11.46 H (4.8-10.8) K/ul RBC 3.70 L (4.20-5.40) M/uL Hgb 11.9 L (12.0-16.0) g/dl Hct 34.3 L (37.0-47.0) % MCV 92.7 (80.0-100.0) fL MCH 32.2 (25.0-34.0) pg MCHC 34.7 (32.0-36.0) g/dL RDW Std Deviation 48.4 H (36.4-46.3) fL RDW Coeff of Arden 14.4 (11.5-14.5) % Plt Count 244 (130-400) K/uL MPV 9.8 (9.4-12.4) fL Sodium 139 (136-145) mmol/L Potassium 3.6 (3.5-5.1) mmol/L Chloride 107 (98-107) mmol/L Carbon Dioxide 27 (21-32) mmol/L Anion Gap 5 (3-11) BUN 7 (6-23) mg/dl Creatinine 0.75 (0.6-1.2) mg/dl Est Cr Clr Drug Dosing 69.1 ml/min Est GFR ( Amer) 90.4 ml/min Est GFR (Non-Af Amer) 78.0 ml/min BUN/Creatinine Ratio 9.3 L (10-20) Glucose 101 H (70-99(Fasting)) mg/dl POC Glucose (70-99) mg/dl Estimat Average Glucose 120 mg/dl Hemoglobin A1c 5.8 H (4.5-5.6) % Calcium 8.5 L (8.6-10.3) mg/dl Phosphorus 3.2 (2.5-4.9) mg/dl Magnesium 1.5 L (1.7-2.4) mg/dl Medications Administered Current Inpatient Medications Acetaminophen (Acetaminophen 500 Mg Tab) 1,000 mg PO Q8 COLT Stop: 02/28/23 21:59 Last Admin: 01/31/23 05:50 Dose: 1,000 mg Apixaban (Apixaban 5 Mg Tablet) 5 mg PO BID COLT Stop: 02/28/23 20:59 Last Admin: 01/30/23 20:06 Dose: 5 mg Aspirin (Aspirin 81 Mg Ectab) 81 mg PO QAM [facility] Stop: 03/01/23 08:59 Last Admin: 01/30/23 08:41 Dose: 81 mg Atorvastatin Calcium (Atorvastatin 40 Mg Tab) 40 mg PO QAM [facility] Stop: 03/01/23 08:59 Last Admin: 01/30/23 08:42 Dose: 40 mg Bisacodyl (Bisacodyl 10 Mg Supp) 10 mg NM DAILY PRN PRN Reason: Constipation Stop: 02/28/23 15:47 Buspirone HCl (Buspirone 5 Mg Tab) 10 mg PO TID PRN PRN Reason: Anxiety Stop: 02/28/23 15:47 Dextrose (Dextrose 50% 50 Ml Syringe) 25 - 50 ml IV UD PRN; Protocol PRN Reason: Hypoglycemia Protocol Stop: 02/28/23 16:29 Docusate Sodium (Docusate Sodium 100 Mg Cap) 100 mg PO BID [facility] Stop: 02/28/23 20:59 Last Admin: 01/30/23 20:07 Dose: 100 mg Furosemide (F[facility]semide 40 Mg Tab) [facility]: 03/01/23 08:59 Last Admin: 01/30/23 08:41 Dose: 40 mg Glucagon (Glucagon For Inj 1 Mg Vial) 1 mg IM UD PRN; Protocol PRN Reason: Hypoglycemia Protocol Stop: 02/28/23 16:29 Glucose (Glucose 40% Gel 15 Gm Tube) 15 - 30 gm PO UD PRN; Protocol PRN Reason: Hypoglycemia Protocol Stop: 02/28/23 16:29 Glucose (Glucose 10 Tab/Tube) 4 - 8 tab PO UD PRN; Protocol PRN Reason: Hypoglycemia Protocol Stop: 02/28/23 16:29 Heparin Sodium (Porcine) (Heparin 100 Unit/Ml 5ml Flush) 5 ml FLUSH PRN PRN PRN Reason: Flush Stop: 03/01/23 00:59 Last Admin: 01/31/23 04:32 Dose: 5 ml Hydromorphone HCl (Hydromorphone Inj 0.5 Mg/0.5 Ml Syr) 0.25 mg IV Q3H PRN PRN Reason: Pain (1,2,3,4,5) & Pre PT Stop: 02/12/23 15:47 Hydromorphone HCl (Hydromorphone Inj 0.5 Mg/0.5 Ml Syr) 0.5 mg IV Q3H PRN PRN Reason: Pain (6,7,8,9,10) Stop: 02/12/23 15:47 Last Admin: 01/31/23 04:31 Dose: 0.5 mg Insulin Aspart (Insulin Aspart Per Unit Charge) 0 units SC ACHS [facility] Stop: 02/28/23 16:29 Last Admin: 01/30/23 21:02 Dose: Not Given Levothyroxine Sodium (Levothyroxine Sodium 75 Mcg Tablet) 75 mcg PO DAILYBB [facility] Stop: 03/01/23 06:29 Last Admin: 01/31/23 05:48 Dose: 75 mcg Loperamide HCl (Loperamide Hcl 2 Mg Cap) 2 mg PO QID PRN PRN Reason: Diarrhea Stop: 02/28/23 15:47 Lubiprostone (Lubiprostone 8 Mcg Cap) 24 mcg PO BID [facility] Stop: 02/28/23 20:59 Last Admin: 01/30/23 20:07 Dose: 24 mcg Magnesium Hydroxide (Magnesium Hydroxide Susp 30 Ml Udc) 30 ml PO Q6H PRN PRN Reason: Constipation Stop: 02/28/23 15:47 Magnesium Oxide (Magnesium Oxide 400 Mg Tab) 400 mg PO [facility] Stop: 03/01/23 12:14 Last Admin: 01/30/23 12:49 Dose: 400 mg Menthol (Cough Drop (Sugar Free) Kolby 24 Kolby/1 Box) 1 kolby BUCCAL PRN PRN PRN Reason: Cough Stop: 02/28/23 19:59 Last Admin: 01/29/23 20:20 Dose: 1 kolby Metoclopramide HCl (Metoclopramide Hcl Inj 5 Mg/Ml 2 Ml Vial) 10 mg IV Q6H PRN PRN Reason: Nausea And Vomiting Stop: 02/28/23 15:47 Metoprolol Succinate (Metoprolol Succ 50mg Ext Rel Tab) 100 [facility] [place] Stop: 03/01/23 08:59 Last Admin: 01/30/23 08:42 Dose: 100 mg Miscellaneous (Order Awaiting Action: Olopatadine 0.2% Drops) 1 each N/A QS [facility] Stop: 03/01/23 00:00 Last Admin: 01/30/23 22:52 Dose: Not Given Miscellaneous (Carbohydrates For Hypoglycemia ) 15 - 30 gm PO UD PRN PRN Reason: Hypoglycemia Treatment Stop: 02/28/23 16:29 Multivitamins (Multivitamin Tab) 1 tab PO QAM [facility] Stop: 03/01/23 08:59 Last Admin: 01/30/23 08:42 Dose: 1 tab Naloxone HCl (Naloxone Hcl 0.4 Mg/1 Ml Vial/Carp) 0.1 mg IV Q5M PRN PRN Reason: Oversedation/Resp Depression Stop: 02/28/23 15:47 Ondansetron HCl (Ondansetron Inj 2 Mg/Ml 2 Ml Vial) 4 mg IV Q6H PRN PRN Reason: Nausea And Vomiting Stop: 02/28/23 15:47 Oxycodone HCl (Oxycodone Hcl Ir 5 Mg Tab (Immediate Release)) 5 - 10 mg PO Q4H PRN PRN Reason: Pain or Pre PT Stop: 02/12/23 15:47 Last Admin: 01/30/23 06:16 Dose: 10 mg Polyethylene Glycol (Polyethylene (Miralax) 17 Gm Pack) 17 gm PO DAILY PRN PRN Reason: Constipation Stop: 02/28/23 15:47 Potassium Phosphate (Pot Phosphate Monobasic W/ Sod Tab) 1 tab PO BID [facility] Stop: 02/28/23 20:59 Last Admin: 01/30/23 20:09 Dose: 1 tab Promethazine HCl (Promethazine Hcl 25 Mg Tab) 25 mg PO Q6H PRN PRN Reason: Nausea Stop: 02/28/23 15:47 Sennosides (Senna 8.6 Mg Tab) 17.2 mg PO HS [facility] Stop: 02/28/23 20:59 Last Admin: 01/30/23 20:09 Dose: 17.2 mg Spironolactone (Spironolactone 25 Mg Tab) 25 mg PO QAM [facility] Stop: 03/01/23 08:59 Last Admin: 01/30/23 08:43 Dose: 25 mg
[2023-01-31] MEDS: MAGNESIUM OXIDE 400 MG TAB PO SCH (08:30)
[2023-01-31] MEDS: POT PHOSPHATE MONOBASIC W/ SOD TAB PO SCH ×2 (08:30→19:27)
[2023-01-31] MEDS: APIXABAN 5 MG TABLET PO SCH ×2 (08:30→19:27)
[2023-01-31] MEDS: DOCUSATE SODIUM 100 MG CAP PO SCH ×2 (08:30→19:28)
[2023-01-31] MEDS: LUBIPROSTONE 8 MCG CAP PO SCH ×2 (08:30→19:26)
[2023-01-31] MEDS: ASPIRIN 81 MG ECTAB PO SCH (08:31)
[2023-01-31] MEDS: ATORVASTATIN 40 MG TAB PO SCH (08:31)
[2023-01-31] MEDS: busPIRone 5 MG TAB PO PRN ×2 (08:31→19:28)
[2023-01-31] MEDS: METOPROLOL SUCC 50MG EXT REL TAB PO SCH (08:32)
[2023-01-31] MEDS: SPIRONOLACTONE 25 MG TAB PO SCH (08:32)
[2023-01-31] MEDS: FUROSEMIDE 40 MG TAB PO SCH (08:32)
[2023-01-31] MEDS: MULTIVITAMIN TAB PO SCH (08:32)
[2023-01-31] MEDS: INSULIN ASPART PER UNIT CHARGE SC SCH ×4 (08:39→20:56)
--- NOTE | 2023-01-31 08:39 | Orthopedic Progress Note ---
Date of Service January 31, 2023 Assessment & Plan (1) S/P right rotator cuff repair: POD 2 s/p R Shoulder Arthroscopy, Rotator Cuff Repair, Subacromial Decompression, Biceps Tenodesis (DOS 01/30/2023; Dr. Rosado) Admitted inpatient for pain control and safety for home. Remains an inpatient with parenteral pain management requirements -Plan to mobilize today with PT/OT and evaluate further needs. -Focus on oral pain management today with current regimen -Sling: Per the protocol, it should be offered most ambulatory activities. Okay to rest out of the sling. She has no restrictions on elbow wrist and digital range of motion. I cautioned her to avoid using the arm to push up out of bed, and for lifting/carrying/reaching. Otherwise, the sling should be used for comfort most of the day. -Appreciate Medicine assistance regarding respiratory failure/electrolyte derangements. Dispo: Evaluate today for readiness for transition to home versus inpatient facility. Needs to discontinue IV pain meds and to mobilize safely. PT protocol and prescription placed in the front of the chart. Please contact me via [place] text for all questions. Subjective Reports she is doing better today. Still requiring regular intervals of Dilaudid parenteral pain management. Does get some relief from the oral oxycodone. PT/OT evals show concern for discharge to home. Patient shares the same concerns. She feels she will do better today. Review of Systems All systems reviewed & are unremarkable except as noted in HPI & below. Physical Exam RUE: Dressing is clean and dry. Ice was applied appropriately. Sling is reasonably well fit. Results & Data Results & Data Laboratory Results . Diagnostic Findings . PG Care Time/CCT Total # of Minutes Spent Total Time Spent with Patient: Total time spent is greater than 50% in coordination of care (as documented) at patient's floor/unit and/or counseling patient: Coding Level of Care Code 63076 Post Operative Follow-Up Diagnoses S/P right rotator cuff repair Z98.890
[2023-01-31 08:42] LABS: Hematocrit (blood only) 31.9 % (37.0-47.0); Mean Corpuscular Hemoglobin 32.2 pg (25.0-34.0); Mean Corpuscular Hgb Conc 34.5 g/dL (32.0-36.0); Mean Corpuscular Volume 93.3 fL (80.0-100.0); Mean Platelet Volume 9.8 fL (9.4-12.4); Platelet Count 196 K/uL (130-400); RDW Coefficient of Variation 14.1 % (11.5-14.5); RDW Standard Deviation 47.9 fL (36.4-46.3); Red Blood Count 3.42 M/uL (4.20-5.40); White Blood Count 9.77 K/ul (4.8-10.8)
[2023-01-31 08:55] LABS: Calcium 8.2 mg/dl (8.6-10.3); Creatinine Clr Calc Pharmacy 86.4 ml/min; Est GFR (African American) 103.3 ml/min; Est GFR (Non-African American) 89.2 ml/min; Magnesium 1.7 mg/dl (1.7-2.4); Phosphorus 2.4 mg/dl (2.5-4.9); Potassium 3.6 mmol/L (3.5-5.1)
[2023-01-31] MEDS ORDERED: CETIRIZINE HCL 10 MG TABLET PO ONE (10:14)
[2023-01-31] MEDS ORDERED: POTASSIUM CHLORIDE CRTAB 20 MEQ TABCR PO STA (10:23)
[2023-01-31] MEDS: oxyCODONE HCL IR 5 MG TAB (IMMEDIATE RELEASE) PO PRN (15:23)
[2023-01-31] MEDS: SENNA 8.6 MG TAB PO SCH (19:27)
[2023-02-01] MEDS: HYDROmorphone INJ 0.5 MG/0.5 ML SYR IV PRN ×5 (00:06→20:19)
[2023-02-01] MEDS: HEPARIN 100 UNIT/ML 5ML FLUSH FLUSH PRN ×4 (00:07→20:20)
[2023-02-01] MEDS: ACETAMINOPHEN 500 MG TAB PO SCH ×3 (05:37→21:26)
[2023-02-01] MEDS: LEVOTHYROXINE SODIUM 75 MCG TABLET PO SCH (05:38)
[2023-02-01] MEDS: POT PHOSPHATE MONOBASIC W/ SOD TAB PO SCH ×2 (08:12→20:24)
[2023-02-01] MEDS: APIXABAN 5 MG TABLET PO SCH ×2 (08:12→20:23)
[2023-02-01] MEDS: ASPIRIN 81 MG ECTAB PO SCH (08:12)
[2023-02-01] MEDS: MAGNESIUM OXIDE 400 MG TAB PO SCH (08:12)
[2023-02-01] MEDS: FUROSEMIDE 40 MG TAB PO SCH (08:13)
[2023-02-01] MEDS: LUBIPROSTONE 8 MCG CAP PO SCH ×2 (08:13→20:24)
[2023-02-01] MEDS: ATORVASTATIN 40 MG TAB PO SCH (08:13)
[2023-02-01] MEDS: SPIRONOLACTONE 25 MG TAB PO SCH (08:14)
[2023-02-01] MEDS: METOPROLOL SUCC 50MG EXT REL TAB PO SCH (08:14)
[2023-02-01] MEDS: DOCUSATE SODIUM 100 MG CAP PO SCH ×2 (08:15→20:23)
[2023-02-01] MEDS: MULTIVITAMIN TAB PO SCH (08:15)
[2023-02-01] MEDS: INSULIN ASPART PER UNIT CHARGE SC SCH ×4 (08:47→21:14)
[2023-02-01] MEDS: oxyCODONE HCL IR 5 MG TAB (IMMEDIATE RELEASE) PO PRN ×3 (10:31→17:42)
--- NOTE | 2023-02-01 11:38 | Orthopedic Progress Note ---
Date of Service February 01, 2023 Assessment & Plan (1) S/P right rotator cuff repair: POD 3 s/p R Shoulder Arthroscopy, Rotator Cuff Repair, Subacromial Decompression, Biceps Tenodesis (DOS 01/30/2023; Dr. Rosado) Admitted inpatient for pain control and safety for home. Remains an inpatient with parenteral pain management requirements Cont POC: -PT/OT. -Focus on oral pain management today with current regimen -Sling: Per the protocol, it should be offered most ambulatory activities. Okay to rest out of the sling. She has no restrictions on elbow wrist and digital range of motion. I cautioned her to avoid using the arm to push up out of bed, and for lifting/carrying/reaching. Otherwise, the sling should be used for comfort most of the day. -Internal med recs for blood pressure mgt appreciated Dispo: Wean pain meds today. Home w services tomorrow. PT protocol and prescription placed in the front of the chart. Please contact me via [place] text for all questions. Subjective Feels that only IV dilaudid gave relief overnight. Some issues with BP - asymptomatic - this am, better after her established meds. Not confident to go home today. Review of Systems All systems reviewed & are unremarkable except as noted in HPI & below. Physical Exam RUE: dressing taken down. Wounds well approximated, clean, and dry. No need to redress. NV intact. Constitutional WD/WN, vitals as above no acute distress and not intoxicated appearing Respiratory normal respiratory effort; no labored breathing Cardiovascular Extremities: normal capillary refill Results & Data Results & Data Laboratory Results . Diagnostic Findings . PG Care Time/CCT Total # of Minutes Spent Total Time Spent with Patient: Total time spent is greater than 50% in coordination of care (as documented) at patient's floor/unit and/or counseling patient: Coding Level of Care Code 06341 Post Operative Follow-Up Diagnoses S/P right rotator cuff repair Z98.890
[2023-02-01] MEDS: busPIRone 5 MG TAB PO PRN ×2 (11:55→21:26)
--- NOTE | 2023-02-01 11:57 | Hospitalist Progress Note ---
Date of Service February 01, 2023 Assessment & Plan (1) S/P right rotator cuff repair: Plan: - Pain management, bowel regimen and DVT ppx per the primary team - PT/OT consults - post-op Hgb 11.9 ->11.0 - acute blood loss anemia, post-op, vs. dilutional - no need for blood transfusion (2) Acute respiratory failure with hypoxia: Plan: -Appears to be secondary to narcotic use in the PACU, patient received multiple doses of IV Dilaudid totaling 2.25 mg IV as well as fentanyl 100 mcg IV -patient is conversing without difficulty, appears comfortable -Patient became acutely hypoxic with sats in the 60s requiring 9 L NC, does not wear supplemental O2 at baseline -per pt , no underlying respiratory issues -Holding home trazodone and Zanaflex evening of surgery due to acute hypoxia -> may resume now 01/30 patient seen this morning, on room air, breathing comfortably. On physical exam clear to auscultation. Patient reports using incentive spirometer. Saturating 96% on room air 01/31 Pt continues to do well. Saturating 95% on room air, breathing comfortably. Using incentive spirometer. Reports having some seasonal allergies 02/01 Pt reports feeling well except for shoulder pain. breathing on RA. Hypomagnesemia - replete and monitor (3) Chronic heart failure with preserved ejection fraction (HFpEF): (4) Hypertension: (5) Hyperlipidemia: Plan: -May continue metoprolol w/holding parameters -Continue atorvastatin 40 mg -Patient is on Eliquis 5 mg twice daily for history of PE -Continue Lasix 40 mg every morning, monitor for acute volume overload, appears to be euvolemic currently (6) Cyclical vomiting: Plan: -History of such, has not happened for the past 2 years, she has a Mediport in her right upper chest wall which has been accessed for IV fluids, patient was told by provider to keep Mediport access. (7) Anxiety: Plan: -May continue BuSpar prn DVT PPx: - teds, scds, resume Eliquis as per the primary team CODE: Full code Admission and Anticipated Discharge Date Admission Date: January 31, 2023 Subjective Pt seen in follow up of med consult for post-op hypoxia Status post right shoulder surgery She is currently on room air, and having no difficulty breathing Pt seen ambulating in hallway w/ PT - complains of shoulder pain Also denies any fevers chills chest pain, denies abdominal pain, nausea vomiting Reports using incentive spirometer Review of Systems Review of Systems: All systems reviewed & are unremarkable except as noted in Subjective Physical Exam Physical Exam: General: WD/WN F in NAD Head: Normocephalic, atraumatic ENT: EOMI, mucous membranes moist Chest: Clear to auscultation, on room air, no adventitious breath sounds Cardiac: Regular rate and rhythm, no murmur, no JVD Abdominal: NABS x 4 quadrants, soft, nondistended, nontender to palpation Extremities: Right shoulder dressing C/D/I, in a sling, otherwise moves extremities Psych: Normal mood and affect Neuro: AAO x 3, speech is fluent, no facial asymmetry, moves extremities Results & Data Results & Data Vital Signs (Past 12 Hours) Vital Signs Temp Pulse Resp BP Pulse Ox O2 Del Method 02/01/23 09:35 162/93 H 02/01/23 08:22 178/108 H 02/01/23 07:35 36.4 C L 64 18 176/122 H 94 Room Air Medications Administered Current Inpatient Medications Acetaminophen (Acetaminophen 500 Mg Tab) 1,000 mg PO Q8 [facility] Stop: 02/28/23 21:59 Last Admin: 02/01/23 05:37 Dose: 1,000 mg Apixaban (Apixaban 5 Mg Tablet) 5 mg PO BID [facility] Stop: 02/28/23 20:59 Last Admin: 02/01/23 08:12 Dose: 5 mg Aspirin (Aspirin 81 Mg Ectab) 81 mg PO QAM [facility] Stop: 03/01/23 08:59 Last Admin: 02/01/23 08:12 Dose: 81 mg Atorvastatin Calcium (Atorvastatin 40 Mg Tab) 40 mg PO QAM [facility] Stop: 03/01/23 08:59 Last Admin: 02/01/23 08:13 Dose: 40 mg Bisacodyl (Bisacodyl 10 Mg Supp) 10 mg SC DAILY PRN PRN Reason: Constipation Stop: 02/28/23 15:47 Buspirone HCl (Buspirone 5 Mg Tab) 10 mg PO TID PRN PRN Reason: Anxiety Stop: 02/28/23 15:47 Last Admin: 01/31/23 19:28 Dose: 10 mg Dextrose (Dextrose 50% 50 Ml Syringe) 25 - 50 ml IV UD PRN; Protocol PRN Reason: Hypoglycemia Protocol Stop: 02/28/23 16:29 Docusate Sodium (Docusate Sodium 100 Mg Cap) 100 mg PO BID [facility] Stop: 02/28/23 20:59 Last Admin: 02/01/23 08:15 Dose: 100 mg Furosemide (Furosemide 40 Mg Tab) 40 mg PO QAM [facility] Stop: 03/01/23 08:59 Last Admin: 02/01/23 08:13 Dose: 40 mg Glucagon (Glucagon For Inj 1 Mg Vial) 1 mg IM UD PRN; Protocol PRN Reason: Hypoglycemia Protocol Stop: 02/28/23 16:29 Glucose (Glucose 40% Gel 15 Gm Tube) 15 - 30 gm PO UD PRN; Protocol PRN Reason: Hypoglycemia Protocol Stop: 02/28/23 16:29 Glucose (Glucose 10 Tab/Tube) 4 - 8 tab PO UD PRN; Protocol PRN Reason: Hypoglycemia Protocol Stop: 02/28/23 16:29 Heparin Sodium (Porcine) (Heparin 100 Unit/Ml 5ml Flush) 5 ml FLUSH PRN PRN PRN Reason: Flush Stop: 03/01/23 00:59 Last Admin: 02/01/23 03:26 Dose: 5 ml Hydromorphone HCl (Hydromorphone Inj 0.5 Mg/0.5 Ml Syr) 0.25 mg IV Q3H PRN PRN Reason: Pain (1,2,3,4,5) & Pre PT Stop: 02/12/23 15:47 Hydromorphone HCl (Hydromorphone Inj 0.5 Mg/0.5 Ml Syr) 0.5 mg IV Q3H PRN PRN Reason: Pain (6,7,8,9,10) Stop: 02/12/23 15:47 Last Admin: 02/01/23 07:21 Dose: 0.5 mg Insulin Aspart (Insulin Aspart Per Unit Charge) 0 units SC ACHS [facility] Stop: 02/28/23 16:29 Last Admin: 02/01/23 08:47 Dose: 5 units Levothyroxine Sodium (Levothyroxine Sodium 75 Mcg Tablet) 75 mcg PO DAILYBB [facility] Stop: 03/01/23 06:29 Last Admin: 02/01/23 05:38 Dose: 75 mcg Loperamide HCl (Loperamide Hcl 2 Mg Cap) 2 mg PO QID PRN PRN Reason: Diarrhea Stop: 02/28/23 15:47 Lubiprostone (Lubiprostone 8 Mcg Cap) 24 mcg PO BID [facility] Stop: 02/28/23 20:59 Last Admin: 02/01/23 08:13 Dose: 24 mcg Magnesium Hydroxide (Magnesium Hydroxide Susp 30 Ml Udc) 30 ml PO Q6H PRN PRN Reason: Constipation Stop: 02/28/23 15:47 Last Admin: 02/01/23 08:47 Dose: 30 ml Magnesium Oxide (Magnesium Oxide 400 Mg Tab) 400 mg PO [facility] Stop: 03/01/23 12:14 Last Admin: 02/01/23 08:12 Dose: 400 mg Menthol (Cough Drop (Sugar Free) Kolby 24 Kolby/1 Box) 1 kolby BUCCAL PRN PRN PRN Reason: Cough Stop: 02/28/23 19:59 Last Admin: 01/29/23 20:20 Dose: 1 kolby Metoclopramide HCl (Metoclopramide Hcl Inj 5 Mg/Ml 2 Ml Vial) 10 mg IV Q6H PRN PRN Reason: Nausea And Vomiting Stop: 02/28/23 15:47 Metoprolol Succinate (Metoprolol Succ 50mg Ext Rel Tab) 100 mg PO [facility] Stop: 03/01/23 08:59 Last Admin: 02/01/23 08:14 Dose: 100 mg Miscellaneous (Order Awaiting Action: Olopatadine 0.2% Drops) 1 each N/A QS [facility] Stop: 03/01/23 00:00 Last Admin: 02/01/23 08:16 Dose: Not Given Miscellaneous (Carbohydrates For Hypoglycemia ) 15 - 30 gm PO UD PRN PRN Reason: Hypoglycemia Treatment Stop: 02/28/23 16:29 Multivitamins (Multivitamin Tab) 1 tab PO [facility] Stop: 03/01/23 08:59 Last Admin: 02/01/23 08:15 Dose: 1 tab Naloxone HCl (Naloxone Hcl 0.4 Mg/1 Ml Vial/Carp) 0.1 mg IV Q5M PRN PRN Reason: Oversedation/Resp Depression Stop: 02/28/23 15:47 Ondansetron HCl (Ondansetron Inj 2 Mg/Ml 2 Ml Vial) 4 mg IV Q6H PRN PRN Reason: Nausea And Vomiting Stop: 02/28/23 15:47 Oxycodone HCl (Oxycodone Hcl Ir 5 Mg Tab (Immediate Release)) 5 - 15 mg PO Q3H PRN PRN Reason: Pain or Pre PT Stop: 02/12/23 15:47 Last Admin: 02/01/23 11:21 Dose: 5 mg Polyethylene Glycol (Polyethylene (Miralax) 17 Gm Pack) 17 gm PO DAILY PRN PRN Reason: Constipation Stop: 02/28/23 15:47 Last Admin: 01/31/23 08:39 Dose: 17 gm Potassium Phosphate (Pot Phosphate Monobasic W/ Sod Tab) 1 tab PO BID [facility] Stop: 02/28/23 20:59 Last Admin: 02/01/23 08:12 Dose: 1 tab Promethazine HCl (Promethazine Hcl 25 Mg Tab) 25 mg PO Q6H PRN PRN Reason: Nausea Stop: 02/28/23 15:47 Sennosides (Senna 8.6 Mg Tab) 17.2 mg PO HS [facility] Stop: 02/28/23 20:59 Last Admin: 01/31/23 19:27 Dose: 17.2 mg Spironolactone (Spironolactone 25 Mg Tab) 25 mg PO QAM [facility] Stop: 03/01/23 08:59 Last Admin: 02/01/23 08:14 Dose: 25 mg
[2023-02-01] MEDS: SENNA 8.6 MG TAB PO SCH (20:25)
[2023-02-01] MEDS ORDERED: traZODone HCL 50 MG TAB PO SCH (21:00)
[2023-02-02] MEDS: HEPARIN 100 UNIT/ML 5ML FLUSH FLUSH PRN ×2 (01:44→05:47)
[2023-02-02] MEDS: HYDROmorphone INJ 0.5 MG/0.5 ML SYR IV PRN ×2 (01:44→05:47)
[2023-02-02] MEDS: ACETAMINOPHEN 500 MG TAB PO SCH ×2 (05:45→14:20)
[2023-02-02] MEDS: LEVOTHYROXINE SODIUM 75 MCG TABLET PO SCH (05:46)
[2023-02-02] MEDS: METOPROLOL SUCC 50MG EXT REL TAB PO SCH (07:58)
[2023-02-02] MEDS: FUROSEMIDE 40 MG TAB PO SCH (07:58)
[2023-02-02] MEDS: ASPIRIN 81 MG ECTAB PO SCH (07:58)
[2023-02-02] MEDS: SPIRONOLACTONE 25 MG TAB PO SCH (07:58)
[2023-02-02] MEDS: ATORVASTATIN 40 MG TAB PO SCH (07:59)
[2023-02-02] MEDS: POT PHOSPHATE MONOBASIC W/ SOD TAB PO SCH (07:59)
[2023-02-02] MEDS: MAGNESIUM OXIDE 400 MG TAB PO SCH (07:59)
[2023-02-02] MEDS: MULTIVITAMIN TAB PO SCH (07:59)
[2023-02-02] MEDS: busPIRone 5 MG TAB PO PRN (08:00)
[2023-02-02] MEDS: APIXABAN 5 MG TABLET PO SCH (08:00)
[2023-02-02] MEDS: DOCUSATE SODIUM 100 MG CAP PO SCH (08:00)
[2023-02-02] MEDS: LUBIPROSTONE 8 MCG CAP PO SCH (08:00)
[2023-02-02] MEDS: oxyCODONE HCL IR 5 MG TAB (IMMEDIATE RELEASE) PO PRN ×2 (08:02→12:37)
[2023-02-02] MEDS ORDERED: HYDROmorphone INJ 0.5 MG/0.5 ML SYR IV ONE (08:21)
[2023-02-02] MEDS: INSULIN ASPART PER UNIT CHARGE SC SCH ×2 (09:13→12:41)
[2023-02-02] MEDS ORDERED: LORATADINE 10 MG TAB PO SCH (10:00)
--- NOTE | 2023-02-02 11:47 | Hospitalist Progress Note ---
Date of Service February 02, 2023 Assessment & Plan (1) S/P right rotator cuff repair: Plan: - Pain management, bowel regimen and DVT ppx per the primary team - PT/OT consults - post-op Hgb 11.9 ->11.0 - acute blood loss anemia, post-op, vs. dilutional - no need for blood transfusion - she was seen ambulating halls with PT and appeared comfortable (2) Acute respiratory failure with hypoxia: Plan: Acute respiratory failure following surgery -Appears to be secondary to narcotic use in the PACU, patient received multiple doses of IV Dilaudid totaling 2.25 mg IV as well as fentanyl 100 mcg IV -patient is conversing without difficulty, appears comfortable -Patient became acutely hypoxic with sats in the 60s requiring 9 L NC, does not wear supplemental O2 at baseline -per pt , no underlying respiratory issues -Holding home trazodone and Zanaflex evening of surgery due to acute hypoxia -> may resume now Hypomagnesemia - replete and monitor (3) Chronic heart failure with preserved ejection fraction (HFpEF): (4) Hypertension: (5) Hyperlipidemia: Plan: -May continue metoprolol w/holding parameters -Continue atorvastatin 40 mg -Patient is on Eliquis 5 mg twice daily for history of PE -Continue Lasix 40 mg every morning, and aldactone monitor for acute volume overload, appears to be euvolemic currently - BP had been elevated but improving with pain control (6) Cyclical vomiting: Plan: -History of such, has not happened for the past 2 years, she has a Mediport in her right upper chest wall which has been accessed for IV fluids, patient was told by provider to keep Mediport access. (7) Anxiety: Plan: -May continue BuSpar prn DVT PPx: - teds, scds, resume Eliquis CODE: Full code A total of 40 minutes was spent with greater than 50% of that time personally viewing all current laboratory work and diagnostic imaging studies obtained in the ED. Additionally, I was able to view the patients past medication reconciliation and history with direct visualization in the patients chart. Included in the time above, a portion of that time was spent assessing the patient while discussing and collaborating with specialists, if necessary, and making medical decision making on treatment plan. All of the above was collaborated with Dr. Olivo. Please see addendum for further details. Admission and Anticipated Discharge Date Admission Date: January 31, 2023 Supervising Physician Co-Signing Physician Notes Patient seen and examined by me, care coordinated with Eduardo Vela PA-C, please refer to her note above for full detail. Patient is status post right shoulder surgery, medicine was consulted for postop hypoxia. Likely secondary to narcotics. Patient has recovered well, and has not been using any oxygen since surgery. Currently lying in bed in no acute distress, breathing comfortably on room air. She is alert oriented answers appropriately. Lungs are clear to auscultation. Heart sounds regular. Abdomen soft nontender distended. Right upper extremity is in sling. She has been using incentive spirometer. Patient reports feeling well overall, and possible discharge later today. MD Geovani Subjective Patient was seen and examined in room 308. Follow-up right shoulder surgery. She continues to complain of right shoulder pain, currently 8 out of 10. She is requesting IV analgesia. She is hopeful to be discharged home today. Denies fever, chills, sweats, lightheadedness, dizziness, chest pain, shortness of breath, nausea, vomiting, abdominal pain. She is also requesting for antihistamine. Review of Systems Review of Systems: All systems reviewed & are unremarkable except as noted in HPI & below Physical Exam Physical Exam: Gen: WD/WN, NAD, A&O x3 HEENT: Normocephalic, atraumatic, conjunctivae moist, sclerae anicteric, mucous membranes moist. Lung: Clear to Auscultation bilaterally, no wheezes/rales/rhonchi Heart: Regular rate, regular rhythm, normal S1-S2, right anterior chest wall Mediport Abdomen: Soft, NT, ND +BS x 4 Extremities: Right upper extremity immobilizer in place, neurovascular intact distally Skin: Warm, no rash, negative turgor. Results & Data Results & Data Vital Signs (Past 12 Hours) Vital Signs Temp Pulse Pulse Resp BP Pulse Ox O2 Del Method 02/02/23 09:51 69 144/89 H 02/02/23 07:43 36.6 C 59 L 16 187/101 H 96 Room Air
--- NOTE | 2023-02-03 08:02 | Discharge Summary ---
Date of Service February 03, 2023 Admission HPI (Per Admitting) CC:Right shoulder pain after injury. HISTORY OF PRESENT ILLNESS:This is a 72-year-old female with several well- managed medical problems who presents with ongoing right shoulder pain since an injury last summer. She said she had a fall, which prompted an injury to her wrist, hand, and shoulder. She was seen in the emergency room in April. She underwent PT for upper extremity as well as her back and shoulder through May of last year. She had persistent pain, though improved motion. She is taken care of by my partner Dr. Hallman. She has done home exercise, activity modification, and anti-inflammatories. She was also provided guided injections to the subacromial space as well as the biceps tendon. These have been repeated. In December of this year, she had persistent symptoms so we obtained an MRI. This had demonstrated a full-thickness tear and she presents today for definitive management. She reports she is tired of her shoulder hurting. It has been almost a year, worse with lifting, carrying, and reaching. It interferes with daily activities as well as the quality of sleep. REVIEW OF SYSTEMS: No report of fevers, chills, nausea, vomiting, or respiratory complaints. Has been well recently, other than what is noted in Subjective. PHYSICAL EXAM: Gen: NAD, appears well, vitals reviewed. HEENT: Atraumatic, no abnormalities. CV: Normal and symmetric peripheral pulses, no significant diffuse extremity edema. Chest: No wheeze, non-labored breathing pattern with symmetric chest excursion. Skin: No significant diffuse rash. ORTHOPEDIC EXAM:Right Shoulder: She has symmetric muscle mass and tone. She demonstrates a full active arc of motion; however, she is very hesitant to do 90 degrees of abduction. With gentle passive assistance, she can achieve full range. She has some pseudoparalysis andhaving toadjust her scapular posture to return to neutral from a fullyabducted position. Full internal and external rotation. Negative drop-arm, negative lift-off. Negative rotator cuff lag; 4/5 strength in external rotation and abduction eliciting pain. Positive impingement signs. Principal Diagnosis Same as "Discharge Diagnosis" noted below under Discharge Instructions. Discharge Exam RUE: dressing taken down. Wounds well approximated, clean, and dry. No need to redress. NV intact. Discharge Data Consultations 01/29/23 17:01 Consult Hospitalist Routine Procedures Performed Operation Date: 01/29/23 11:35 Actual Procedures p Arthroscopy Shoulder Right Rotator Cuff Repair and Revision, Subacromial Decompression, Biceps Tenodesis(Right) - Michael Rosado MD Ordered Studies 01/29/23 05:00 US - OR guided needle placemen Routine Hospital Course (1) S/P right rotator cuff repair: Admitted on 01/29 after elective R rotator cuff repair. In PACU she became acutely hypoxic, Medicine consulted for management of acute hypoxic respiratory failure who felt respiratory failure was d/t high amount of narcotics post operatively. She remained inpatient post operatively d/t requirement of IV narcotics to control her post operative pain. Initially was recommended by PT to be discharged to inpatient rehab, placement difficult d/t insurance reasons. Con tinued to work w/ PT and was discharged home on 02/02. PG Care Time/CCT Total # of Minutes Spent Total Time Spent with Patient: Total time spent is greater than 50% in coordination of care (as documented) at patient's floor/unit and/or counseling patient: Discharge Plan Discharge Items Patient Disposition: Home - Self-Care Reason For Visit: POST OP Discharge Diagnosis: Right rotator cuff tear s/p repair Activity: Per Instructions section Non-emergency contact: Surgeon Call non-emergency contact if: you have any medication questions, your pain is not controlled and your temperature is above 101 Follow-up/Referrals: Michael Rosado MD [Surgeon] - Svetlana Jacobs DO [Primary Care Provider] - Diet: Regular Addtl Attending Provider Instructions: Michael Rosado M.D. [facility] [address] [place] [address], [place] [address] SHOULDER PROCEDURES WOUND CARE: Leave your dressing in place and keep the area clean and dry. After 3 days, you may remove your dressing. DO NOT REMOVE ANY SUTURES. DO NOT REMOVE THE PAPER TAPE STRIPS THAT ARE CROSSING YOUR INCISION THEY WILL FALL OFF GRADUALLY IN 2-3 WEEKS. After removing your dressing, you may begin to shower with the paper tape strips in place. Do not soak the incision. Allow gentle soap and water to run over the wound(s) and pat dry. Please cover the incision(s) with a clean, dry dressing, as needed. Do not use any ointments or topical medications unless directed by your surgeon. Do not submerse the incisions in water no pools, oceans, lakes, jacuzzis, bathtubs, etc for at least 3 weeks. ACTIVITY: Remain in the sling provided. Do not lift anything heavier than a cup of coffee with that hand. You may type or use a keyboard as tolerated. You may come out of the sling for careful hygiene and Range of Motion exercises, only. Please perform ROM (range of motion) exercises at least three times daily: 1. Wrist flexion and extension 2. Finger pump 3. Elbow flexion/extension and forearm rotation 4. Supported Codmans Exercises come out of sling, dangle your affected arm. Use your nonoperative (good) arm to support your operative (getting better!) arm at the elbow. Gently rotate/swing your operative arm in a pendulum motion for 1-2 minutes. Rest. Repeat three times. Do not reach out to your side (do not rotate your hand laterally NO EXTERNAL ROTATION) PAIN CONTROL: Use frequent ice to reduce amount of pain medications. Use for 30 minutes per hour. Do not leave in place longer than 30 minutes, especially when your block is in effect, to prevent frostbite or thermal injury. Medications: 1. Oxycodone (OxyIR) 1-2 tablet(s) orally every 4 hours for pain as needed. Use with Tylenol. Begin tapering OxyIR as soon as possible: reduce from 2 to 1 pills per dose, then spread out the doses over greater time intervals, then try to use only for therapy or for comfort while sleeping. Continue to use regular Tylenol until pain subsides. 2. Tylenol (325mg): 3 tablets every 8 hours orally. Regular dosing of Tylenol is an important part of your baseline pain control. Do not taper Tylenol until you have successfully tapered off of regular OxyIR. Do not take more than 3000mg of Tylenol per day. 3. Zofran 1 tablet orally every 6 hours as needed for nausea related to anesthesia, pain, and narcotic medications OVER THE COUNTER: Narcotics will cause constipation. Colace and or Miralax can help while you are taking oxycodone or other narcotics. 4. Colace (100mg): take 1-2 tabs twice daily to avoid constipation from OxyIR or other narcotics. 5. Miralax 1 tablespoon in a glass of water 2 times daily until normal bowel movements FOLLOWUP: 1. Ortho Clinic with Dr. Rosado: You should be seen in 10-14 days. Please call immediately to schedule if you do not have an appointment. 2. PHYSICAL THERAPY: It is OK to be seen by your therapist before the orthopedic postop appointment, if a specific consult has been placed. Pending Studies at Discharge: No Stand-Alone Forms: My [facility], Pain - Opioid Pain Management, Smoking Cessation Medications and DC Order Prescriptions: New oxycodone 5 mg tablet 5 - 15 mg PO Q4H MDD 6 tablets PRN (Reason: pain) Qty: 30 0RF Continued lubiprostone [Amitiza] 24 mcg capsule 24 mcg PO BID Qty: 60 2RF nitroglycerin [Nitrostat] 0.3 mg Tablet, Sublingual 0.3 mg sublingual UD PRN (Reason: Chest Pain) Rx Instructions: NEEDED FOR CHEST PAIN : ONE TABLET UNDER THE TONGUE EVERY 5 MINUTES UP TO 3 DOSES. olopatadine 0.2 % Drops 1 drp OPB QAM epinephrine 0.3 mg/0.3 mL Syringe 0.3 mg IM Q3H PRN (Reason: Allergic Reaction) metformin 500 mg Tablet 500 mg PO BIDM furosemide 20 mg tablet 40 mg PO QAM Rx Instructions: may take additional dose as directed for edema. atorvastatin [Lipitor] 40 mg Tablet 40 mg PO QAM levothyroxine 75 mcg Tablet 75 mcg PO DAILYBB Rx Instructions: take before breakfast or other meds buspirone 10 mg Tablet 10 mg PO TID PRN (Reason: Anxiety) polyethylene glycol 3350 17 gram Powder In Packet 17 g PO DAILY PRN (Reason: Constipation) promethazine 25 mg Tablet 25 mg PO Q6H PRN (Reason: Nausea) tizanidine 4 mg tablet 4 mg PO BID PRN (Reason: Muscle Spasm) trazodone 100 mg Tablet 200 mg PO HS loperamide 2 mg capsule 2 mg PO QID PRN (Reason: Diarrhea) Eliquis 5 mg tablet 5 mg PO BID Patient Comments: LAST DOSE YESTERDAY MORNING , STOP FOR SURGERY PER HOG WORKER /HAVE INSTRUCTIONS ON WHEN TO RE START. metoprolol succinate 100 mg Tablet Extended Release 24 Hr 100 mg PO QAM spironolactone 25 mg Tablet 25 mg PO QAM Ozempic 2 mg/dose (8 mg/3 mL) Pen Injector 2 mg SUBCUT WK Rx Instructions: Thursday aspirin 81 mg Tablet,Delayed Release (Dr/Ec) 81 mg PO QAM Patient Comments: LAST DOSE YESTERDAY MORNING, STOP FOR SURGERY PER HOG WORKER /HAVE INSTRUCTIONS ON WHEN TO RE START Phospha 250 Neutral 250 mg tablet 1 tab PO BID Qty: 6 0RF Patient Comments: JUST GAVE IT TO ME 2 DAYS AGO/STARTED AND ONLY TOOK ONCE Rx Instructions: administer with meals No Action Linzess 145 mcg capsule 145 mcg PO DAILY Qty: 30 2RF Discharge Orders: Discharge Order (Routine); Ordered 02/02/23 Ordered By: Michael Pineda/Other Patient Handouts: DVT Post Op Prevention Admission Data Admit Date/Time: 01/31/23 13:45 Attending Provider: Michael Rosado Admit Provider: Michael Rosado Primary Care Provider: Svetlana Jacobs Other Providers: Michael Rosado ; Tre Olivo ; [facility] ; Rayne Osborne Brittany L. Other Interventions: Discharge Summary Assessment (RN) Last Done: 02/02/23 14:23
== END 2023-02-02 15:48 | disposition home health service (06) | DRG 500 ==
LOC: ASU 09:46 → 3E 09:46 → SUATTDRO 14:06

== ENCOUNTER 2023-04-06 08:48 | Inpatient (IN) ==
[2023-04-06] MEDS ORDERED: ACETAMINOPHEN 1,000 MG/100 ML VIAL IV ONE (09:02)
[2023-04-06] MEDS ORDERED: SODIUM CHLORIDE 0.9% 1000ML 1,000 ML IV ONE ×2 (09:02→14:38)
[2023-04-06] MEDS ORDERED: MoRPHine SULFATE 4 MG/ML 1 ML CARP\\VIAL IV ONE (09:05)
[2023-04-06] MEDS ORDERED: ONDANSETRON INJ 2 MG/ML 2 ML VIAL IV ONE (09:05)
--- NOTE | 2023-04-06 09:14 | Emergency Department Note ---
Impression & Plan Intractable abdominal pain ED Provider Note Name: JOVANNI DE SANTIAGO Age: 73 Sex: F Arrives Via: Ambulance Informant: Patient, EMS ED Provider: Mandeep Silva MD Chief Complaint: Abdominal pain Impression: As per impressions above Medical Decision Makin-year-old female arrives for evaluation of abdominal pain. She notes its been ongoing for the last 3 weeks though had been getting worse over the last few days. She has been seen twice in the ER over the last few months including 3 weeks ago when a CT scan of the abdomen pelvis was negative at that time. On examination patient does have some vague diffuse left-sided abdominal tenderness palpation and is nauseous. She was given IV Zofran and fluids with vast improvement in nausea but even after first dose of morphine still significant abdominal pain thus a second dose and finally a third were given. She had x- rays of her abdomen which were unremarkable. In the setting of requiring 3 rounds of morphine it was determined that CT scan should be repeated. Laboratory work-up is fortunately benign. Throughout this her vital signs stayed stable. Patient does not have any overt peritonitis by examination I felt given the current amount of pain general surgery should be consulted and this was done. I also discussed the case with the hospitalist this patient will likely need to come and not convinced there is a surgical need. Prior Medical Record and Triage/Nursing Notes reviewed by Me External chart reviewed by me Differentials:Obstruction, appendicitis, diverticulitis, ischemia, perforation, aortic pathology, gastritis, gastroenteritis, renal colic, urinary infection amongst many other pathologies Vital Signs: reviewed and remarkable for no significant abnormalities Interventions: Normal saline bolus 1 L IV x 2, Zofran 4 mg IV, morphine 4 mg IV x3 Labs:Reviewed and remarkable for wnl Imagin view abdominal obstruction series as per my interpretation no clear evidence of obstruction or free air. CT of the abdomen pelvis with IV contrast as per my informal interpretation reveals thickened bowel wall consistent with gastroenteritis/colitis. There is no evidence of free air overt obstruction or abscess.. This was confirmed by radiology. Consults:[facility] Hospitalist. [facility] general surgeon Dr. Nieves team Plan: Disposition:Hospitalization. Condition: Good History of Present Illness:73-year-old female arrives for evaluation of abdominal pain. Patient with nausea vomiting abdominal pain for the last 3 weeks. She been seen a few weeks ago for symptoms in the ER and had labs CT scan and was feeling bit better at that time thus went home. She notes symptoms of sort of continued but over the last few days significantly worse. She notes her emesis is somewhat dark. She her last bowel movement was yesterday. No blood in the stool. She states that her pain is primarily in the left abdomen. Stabbing in nature. No medication prior to arrival. No falls, trauma, injuries. Has a long history of abdominal issues with previous ER visits for similar though states symptoms are much more severe today. Patient does have a history of ulcers. Past History:See Below Home Medications:See Below Allergies:Latex, nickel, NSAIDs, adhesive, aspirin Vitals:Blood Pressure: 100/74, Pulse 90, RR 16, T 36.3C, O2 95% on RA Physical Exam: GENERAL: Patient is uncomfortable/anxious appearing and in mild distress. GASTROINTESTINAL: Vague diffuse left-sided abdominal tenderness palpation without peritonitis. EXTREMITIES: Normal motion all extremities, no cyanosis, no edema. NEUROLOGIC: Alert and oriented, no focal neurologic deficit appreciated SKIN: No rash, no jaundice, no diaphoresis. PSYCH: Appropriate GCS: 15 ED Course: Times/Reassessments: Patient stable but continues to have discomfort throughout the left abdomen. She is agreeable to hospitalization. No respiratory or chest complaints throughout her stay. Mandeep Silva MD Past Med/Surg History Medical History Acute respiratory failure with hypoxia Anemia Anxiety CAD (coronary artery disease) BMS to LAD (2016) Cervical spondylolysis Chronic heart failure with preserved ejection fraction (HFpEF) Cyclic vomiting syndrome Cyclical vomiting Deep vein thrombosis ~2014, unknown cause Degenerative disc disease Depression Diabetes mellitus, type 2 Dyslipidemia GI bleed Hx (declined AC d/t hx of GIB per records) History of COVID-19 10/2021 - treated inpatient at [facility] History of pulmonary embolism Hx of Clostridium difficile infection Remote hx Hyperlipidemia Hypertension Hypothyroidism Intractable abdominal pain Migraine Hx, no recent issues Myocardial Infarction 2017 Non-specific colitis Osteoarthritis Post traumatic stress disorder Pulmonary embolism ~2014 (UNSURE OF REASON) Restless leg syndrome Scoliosis Vomiting Surgical History Fusion of spine LUMBAR H/O ovarian cystectomy x2 H/O repair of right rotator cuff H/O spinal fusion Multiple History of adenoidectomy History of anesthesia reaction Awareness with spinal surgeries History of appendectomy History of back surgery has bilateral SI Joint replacements (~2020 at [facility]) History of cataract surgery LEFT AND RIGHT History of colonoscopy History of esophagogastroduodenoscopy (EGD) History of heart artery stent 2017-x2 STENTS PLACED AT [facility] (DR. DAVILA) History of laminectomy and fusion "entire spine is fused(except cervical spine)" [facility] (Dr aCtherine) History of tonsillectomy History of vascular access device Left upper chest port (*not a power port*) S/P hardware removal removal of all back hardware (~2002) Barney Archuleta Family History Mother Hypertension Father Hypertension Other No family history of adverse response to anesthesia Social History Smoking Status: Never smoker Second Hand Exposure: No; Do You Dip or Chew Tobacco: No; Hx Alcohol Use: No Hx Substance Use: No Preferred Language: Kyrgyz Communication Ability: Effective Visual Impairment: Limited Hearing Ability: Normal [place] Required: No Beliefs That Will Affect Care: None marital status: Current Living Situation: Alone current occupational status: retired How many Children do You have: 2 Feels Safe at Home: Yes Assistive Devices: None Allergies Allergies Allergy/AdvReac Type Severity Reaction Status Date / Time latex Allergy Intermediate Rash Verified 04/06/23 14:48 nickel Allergy Intermediate SEVERE Verified 04/06/23 14:48 DERMATITIS NSAIDS (Non-Steroidal Allergy Intermediate HX OF Verified 04/06/23 14:48 Anti-Inflamma BLEEDING ULCERS-TO AVOID adhesive tape AdvReac Intermediate SKIN Verified 04/06/23 14:48 IRRITATION aspirin AdvReac Intermediate full dose Verified 04/06/23 14:48 asa -> bleeding ulcers Home Meds Home Medications Medication Instructions Recorded Confirmed atorvastatin 40 mg tablet (Lipitor) 40 mg PO QAM 12/13/18 04/06/23 levothyroxine 75 mcg tablet 75 mcg PO DAILYBB 12/13/18 04/06/23 polyethylene glycol 3350 17 gram 17 g PO DAILY PRN Constipation 05/12/19 04/06/23 oral powder packet promethazine 25 mg tablet 25 mg PO Q6H PRN Nausea 05/12/19 04/06/23 epinephrine 0.3 mg/0.3 mL 0.3 mg IM Q3H PRN Allergic Reaction 05/23/19 04/06/23 injection syringe nitroglycerin 0.3 mg sublingual 0.3 mg sublingual UD PRN Chest Pain 05/23/19 04/06/23 tablet (Nitrostat) olopatadine 0.2 % eye drops 1 drp ophthalmic (eye) QAM 05/23/19 04/06/23 tizanidine 4 mg tablet 4 mg PO BID PRN Muscle Spasm 04/03/20 04/06/23 trazodone 100 mg tablet 300 mg PO HS 04/03/20 04/06/23 furosemide 20 mg tablet 40 mg PO QAM 10/05/20 04/06/23 metformin 500 mg tablet 500 mg PO BIDM 10/05/20 04/06/23 loperamide 2 mg capsule 2 mg PO QID PRN Diarrhea 02/15/21 04/06/23 apixaban 5 mg tablet (Eliquis) 5 mg PO BID 10/11/21 04/06/23 aspirin 81 mg tablet,delayed 81 mg PO QAM 01/20/23 04/06/23 release metoprolol succinate 100 mg 100 mg PO QAM 01/20/23 04/06/23 tablet,extended release 24 hr semaglutide 2 mg/dose (8 mg/3 mL) 2 mg subcut WK 01/20/23 04/06/23 subcutaneous pen injector (Ozempic) spironolactone 25 mg tablet 25 mg PO QAM 01/20/23 04/06/23 buspirone 10 mg tablet 10 mg PO BID 02/20/23 04/06/23 Previous Rx's Medication Instructions Recorded ondansetron HCl 4 mg tablet 4 mg PO Q6 PRN nausea #15 tabs 02/13/23 Results & Data (ED) Vital Signs Vital Signs - 24 hr 04/06/23 08:55 04/06/23 08:59 04/06/23 08:56 Temperature 36.3 C L Temperature Source Oral Pulse Rate 89 92 H Pulse Rate [Apical] 90 Pulse Rhythm [Apical] Regular Respiratory Rate 14 16 Respiratory Effort / Characteristics Non-Labored Respiratory Depth Normal Blood Pressure 100/74 Blood Pressure Mean 82 Pulse Oximetry 95 95 Oxygen Delivery Method Room Air Sepsis Recent Fever Within 48 Hours No Sepsis New/Unexplained Change in Mental Status No Sepsis Action Taken by Nursing No Action Required 04/06/23 10:26 Temperature Temperature Source Pulse Rate Pulse Rate [Apical] 86 Pulse Rhythm [Apical] Regular Respiratory Rate 16 Respiratory Effort / Characteristics Respiratory Depth Blood Pressure Blood Pressure Mean Pulse Oximetry 95 Oxygen Delivery Method Room Air Sepsis Recent Fever Within 48 Hours Sepsis New/Unexplained Change in Mental Status Sepsis Action Taken by Nursing Laboratory Data 04/06/23 09:30 04/06/23 09:30 Lab Results 04/06/23 04/06/23 Range/Units 09:30 09:30 WBC 9.40 (4.8-10.8) K/ul RBC 4.37 (4.20-5.40) M/uL Hgb 13.8 (12.0-16.0) g/dl Hct 39.8 (37.0-47.0) % MCV 91.1 (80.0-100.0) fL MCH 31.6 (25.0-34.0) pg MCHC 34.7 (32.0-36.0) g/dL RDW Std Deviation 45.1 (36.4-46.3) fL RDW Coeff of [place] 13.4 (11.5-14.5) % Plt Count 263 (130-400) K/uL MPV 9.7 (9.4-12.4) fL Immature Gran % (Auto) 0.2 % Neut % (Auto) 63.1 % Lymph % (Auto) 25.7 % [place] % (Auto) 9.3 % Eos % (Auto) 1.4 % Baso % (Auto) 0.3 % Neut # (Auto) 5.93 (1.40-6.50) K/uL Lymph # (Auto) 2.42 (1.2-3.4) K/uL [place] # (Auto) 0.87 H (0.11-0.59) K/uL Eos # (Auto) 0.13 (0-0.50) K/uL Baso # (Auto) 0.03 (0-0.2) K/uL Immature Gran # (Auto) 0.02 (0.01-0.20) K/uL Sodium 137 (136-145) mmol/L Potassium 3.4 L (3.5-5.1) mmol/L Chloride 103 (98-107) mmol/L Carbon Dioxide 28 (21-32) mmol/L Anion Gap 6 (3-11) BUN 14 (6-23) mg/dl Creatinine 0.81 (0.6-1.2) mg/dl Est Cr Clr Drug Dosing 62.7 ml/min Est GFR ( Amer) 82.3 ml/min Est GFR (Non-Af Amer) 71.0 ml/min BUN/Creatinine Ratio 17.3 (10-20) Glucose 107 H (70-99(Fasting)) mg/dl Calcium 9.7 (8.6-10.3) mg/dl Total Bilirubin 1.0 (0.2-1.0) mg/dl AST 17 (13-39) U/L ALT 17 (7-52) U/L Alkaline Phosphatase 67 (34-104) U/L Total Protein 6.6 (6.0-8.3) gm/dl Albumin 4.1 (3.4-5.0) gm/dl Globulin 2.5 (2.5-4.0) gm/dl Albumin/Globulin Ratio 1.6 (0.9-2) Lipase 25 (11-82) U/L Administered Medications Acetaminophen (Acetaminophen 500 Mg Tab) 1,000 mg PO Q8 [facility] Stop: 05/06/23 20:14 Last Admin: 04/07/23 05:44 Dose: 1,000 mg Documented By: Admin: 04/06/23 20:45 Dose: 1,000 mg Documented By: RENEE Apixaban (Apixaban 5 Mg Tablet) 5 mg PO BID [facility] Stop: 05/06/23 20:59 Last Admin: 04/07/23 08:44 Dose: 5 mg Documented By: Admin: 04/06/23 20:46 Dose: 5 mg Documented By: RENEE Aspirin (Aspirin 81 Mg Ectab) [facility] [place]: 05/07/23 08:59 Last Admin: 04/07/23 08:44 Dose: 81 mg Documented By: EREN Atorvastatin Calcium (Atorvastatin 40 Mg Tab) [facility] [place] Stop: 05/07/23 08:59 Last Admin: 04/07/23 08:44 Dose: 40 mg Documented By: EREN Buspirone HCl (Buspirone 5 Mg Tab) 10 mg PO BID COLT Stop: 05/06/23 20:59 Last Admin: 04/07/23 08:44 Dose: 10 mg Documented By: Admin: 04/06/23 20:46 Dose: 10 mg Documented By: RENEE Hydromorphone HCl (Hydromorphone Inj 0.5 Mg/0.5 Ml Syr) 0.5 mg IV Q4H PRN PRN Reason: Pain Stop: 04/20/23 16:13 Last Admin: 04/07/23 10:02 Dose: 0.5 mg Documented By: Admin: 04/07/23 05:46 Dose: 0.5 mg Documented By: Admin: 04/07/23 01:31 Dose: 0.5 mg Documented By: Admin: 04/06/23 21:47 Dose: 0.5 mg Documented By: Admin: 04/06/23 17:30 Dose: 0.5 mg Documented By: MIRA Sodium Chloride (Nss 1000ml) 1,000 mls @ 80 mls/hr IV .[id number] COLT Stop: 04/07/23 17:14 Last Infusion: 04/07/23 07:42 Dose: 0 mls/hr Documented By: Admin: 04/06/23 18:41 Dose: 80 mls/hr Documented By: Infusion: 04/06/23 18:41 Dose: 80 mls/hr Documented By: Admin: 04/06/23 17:32 Dose: 80 mls/hr Documented By: MIRA Levothyroxine Sodium (Levothyroxine Sodium 75 Mcg Tablet) 75 mcg PO DAILYBB COLT Stop: 05/07/23 06:29 Last Admin: 04/07/23 05:44 Dose: 75 mcg Documented By: RENEE Metoprolol Succinate (Metoprolol Succ 50mg Ext Rel Tab) 100 mg PO QAM COLT Stop: 05/07/23 08:59 Last Admin: 04/07/23 08:44 Dose: 100 mg Documented By: EREN Ondansetron HCl (Ondansetron Inj 2 Mg/Ml 2 Ml Vial) 4 mg IV Q6H COLT Stop: 05/06/23 15:29 Last Admin: 04/07/23 08:42 Dose: 4 mg Documented By: Admin: 04/07/23 03:27 Dose: 4 mg Documented By: Admin: 04/06/23 20:47 Dose: 4 mg Documented By: Admin: 04/06/23 16:39 Dose: 4 mg Documented By: Discontinued Medications Sodium Chloride (Nss 1000ml) 1,000 mls @ 999 mls/hr IV .Q1H1M ONE Stop: 04/06/23 10:02 Last Infusion: 04/06/23 10:14 Dose: 0 mls/hr Documented By: Admin: 04/06/23 09:28 Dose: 999 mls/hr Documented By: MICHELLE Acetaminophen (Ofirmev) 1,000 mg in 100 mls @ 400 mls/hr IV NOW ONE Stop: 04/06/23 09:16 Last Infusion: 04/06/23 10:14 Dose: 0 mls/hr Documented By: Admin: 04/06/23 09:28 Dose: 400 mls/hr Documented By: MICHELLE Sodium Chloride (Nss 1000ml) 500 mls @ 999 mls/hr IV .Q31M ONE Stop: 04/06/23 12:41 Last Infusion: 04/06/23 15:08 Dose: 0 mls/hr Documented By: Admin: 04/06/23 13:40 Dose: 999 mls/hr Documented By: Sodium Chloride (Nss 1000ml) 1,000 mls @ 999 mls/hr IV .Q1H1M ONE Stop: 04/06/23 15:38 Last Infusion: 04/06/23 17:35 Dose: 0 mls/hr Documented By: Admin: 04/06/23 15:11 Dose: 999 mls/hr Documented By: Potassium Chloride (K Sai / Wtr) 10 meq in 100 mls @ 100 mls/hr IV Q1H COLT Stop: 04/06/23 18:14 Last Infusion: 04/06/23 21:36 Dose: 0 mls/hr Documented By: Admin: 04/06/23 18:41 Dose: 100 mls/hr Documented By: Infusion: 04/06/23 17:57 Dose: 0 mls/hr Documented By: Admin: 04/06/23 16:39 Dose: 100 mls/hr Documented By: Insulin Aspart (Insulin Aspart Per Unit Charge) 0 units SC ACHS COLT Stop: 05/06/23 20:59 Last Admin: 04/06/23 21:35 Dose: Not Given Documented By: CKW Insulin Aspart (Insulin Aspart Per Unit Charge) 0 units SC Q6 COLT Stop: 05/07/23 00:00 Last Admin: 04/07/23 06:45 Dose: Not Given Documented By: Admin: 04/06/23 21:46 Dose: Not Given Documented By: CKW Ioversol (Optiray 320 100ml) 95 ml IV ONCE ONE Stop: 04/06/23 13:31 Last Admin: 04/06/23 13:21 Dose: 95 ml Documented By: BREdis Morphine Sulfate (Morphine Sulfate 4 Mg/Ml 1 Ml Carp\\Vial) 4 mg IV NOW ONE Stop: 04/06/23 09:06 Last Admin: 04/06/23 09:28 Dose: 4 mg Documented By: KV Morphine Sulfate (Morphine Sulfate 4 Mg/Ml 1 Ml Carp\\Vial) 4 mg IV NOW STA Stop: 04/06/23 10:33 Last Admin: 04/06/23 10:54 Dose: 4 mg Documented By: KV Morphine Sulfate (Morphine Sulfate 4 Mg/Ml 1 Ml Carp\\Vial) 4 mg IV NOW STA Stop: 04/06/23 12:12 Last Admin: 04/06/23 13:08 Dose: 4 mg Documented By: Morphine Sulfate (Morphine Sulfate 4 Mg/Ml 1 Ml Carp\\Vial) 4 mg IV NOW STA Stop: 04/06/23 14:39 Last Admin: 04/06/23 15:11 Dose: 4 mg Documented By: ENS Ondansetron HCl (Ondansetron Inj 2 Mg/Ml 2 Ml Vial) 4 mg IV NOW ONE Stop: 04/06/23 09:06 Last Admin: 04/06/23 09:28 Dose: 4 mg Documented By: KV Imaging Data Radiologist's Impression: Chest/Abdomen X-ray 04/06/23 09:06 PA CHEST RADIOGRAPH AND UPRIGHT AND SUPINE AP RADIOGRAPHS OF THE ABDOMEN CLINICAL HISTORY: Persistent left lower quadrant pain. COMPARISON STUDY: Chest radiograph January 26, [address] of the abdomen and p larissa March 23, 2023. FINDINGS: Left subclavian [id number] is in place. No pneumothorax or pleural effusion is present. Linear left basilar opacity favors atelectasis or s carring. There is no consolidation to suggest pneumonia. No evidence for pulmonary edema. No free air. Pelvic calcifications represent phleboliths. There is no radiographic evidence for a bowel obstruction. Bilateral SI joint fusions are incidentally noted. S-shaped scoliosis of the thoracolumbar spine. IMPRESSION: 1. No free air or evidence for a bowel obstruction. 2. No acute cardiopulmonary findings. ACT 112: Negative or not required by law. Electronically signed by: Gonsalo Villafana M.D. 04/06/2023 12:50 PM Abdomen/Pelvis CT 04/06/23 12:11 CT SCAN OF THE ABDOMEN AND PELVIS WITH IV CONTRAST CLINICAL HISTORY: Generalized abdominal pain. Nausea and vomiting. COMPARISON STUDY: Abdominal CT dated 03/23/2023 TECHNIQUE: Following the IV administration of 95 cc of Optiray 320, CT scan of the abdomen and pelvis is performed from the lung bases to the proximal femora. Images are reviewed in the axial, sagittal, and coronal planes. IV contrast was administered without complication. A dose lowering technique was utilized adhering to the principles of ALARA. CT DOSE: 1247.48 mGy.cm FINDINGS: Lung bases: The heart is enlarged and without pericardial effusion. The lung bases are clear noting bibasilar scarring/atelectasis. There is a small hiatal hernia. There is ectasia of the visualized ascending thoracic aorta. This measures up to 3.9 cm in diameter. Liver: The contrast-enhanced liver is normal in size, contour, and attenuation. There is no intrahepatic biliary ductal dilatation. The hepatic veins and portal veins are patent. Gallbladder: Unremarkable. Spleen: Normal in size and attenuation. A 9 mm hypervascular lesion in the spleen on image #52 is unchanged and statistically of doubtful significance. Pancreas: Unremarkable. Adrenal glands: Unremarkable. Kidneys: The contrast enhanced kidneys are normal in size and without hydronephrosis. The kidneys enhance symmetrically. There are at least 2 n onobstructing left renal calculi which measure up to 4 mm. Scattered subcentimeter cortical hypodensities likely represent cysts but are too small for definitive characterization. A circumaortic left renal vein is incidentally noted. Abdominal vasculature: The abdominal aorta is normal in course and caliber noting moderate to advanced atherosclerotic calcification. Bowel: There is mild colonic diverticulosis without CT evidence of acute diverti culitis. No bowel obstruction is seen. The appendix is surgically absent. There is there is wall thickening and edema with mucosal hyperemia involving the sigmoid colon. Mild surrounding infiltration is observed. The more proximal colon is normal in appearance. The mesenteric vessels are widely patent. Peritoneum: There is no intraperitoneal free air or abdominal ascites. Lymphadenopathy: None. Pelvic viscera: Uterine fibroids are suggested. The bladder is normal as imaged. No adnexal lesion is seen. Calcified granulomas are noted in the gluteal soft tissues. Skeletal structures: The skeletal structures are osteopenic. There is advanced lumbosacral spondylosis and scoliosis. Extensive postsurgical change is seen throughout the imaged thoracolumbar spine. Bilateral iliac bolts are in place. Sclerotic change is noted in the sacroiliac joints with chronic erosions suggesting chronic sacroiliitis. No lytic or blastic lesions are seen. There is chronic deformity of the left-sided ribs. IMPRESSION: 1. There is evidence of a nonspecific colitis of the sigmoid colon. Correlate clinically. 2. Colonic diverticulosis without CT evidence of acute diverticulitis. 3. Left-sided nephrolithiasis. 4. Cardiomegaly. 5. Additional findings as above. ACT 112: Negative or not required by law. Electronically signed by: Ivan Smith M.D. 04/06/2023 2:31 PM Discharge Plan Visit Data Chief Complaint: Vomiting Stated Complaint: AB PAIN ED Provider: Mandeep Silva Discharge Problem: Intractable abdominal pain Patient Disposition: Admitted As Inpatient Discharge Instructions Interventions: ED Discharge Assessment Last Done: 04/06/23 17:56
[2023-04-06 09:48] LABS: Basophils # (auto) 0.03 K/uL (0-0.2); Basophils % (auto) 0.3 %; Eosinophils # (auto) 0.13 K/uL (0-0.50); Eosinophils % (auto) 1.4 %; Hematocrit (blood only) 39.8 % (37.0-47.0); Hemoglobin 13.8 g/dl (12.0-16.0); Immature Granulocytes # (auto) 0.02 K/uL (0.01-0.20); Immature Granulocytes % (auto) 0.2 %; Lymphocytes # (auto) 2.42 K/uL (1.2-3.4); Lymphocytes % (auto) 25.7 %; Mean Corpuscular Hemoglobin 31.6 pg (25.0-34.0); Mean Corpuscular Hgb Conc 34.7 g/dL (32.0-36.0); Mean Corpuscular Volume 91.1 fL (80.0-100.0); Mean Platelet Volume 9.7 fL (9.4-12.4); Monocytes # (auto) 0.87 K/uL (0.11-0.59); Monocytes % (auto) 9.3 %; Neutrophils # (auto) 5.93 K/uL (1.40-6.50); Neutrophils % (auto) 63.1 %; Platelet Count 263 K/uL (130-400); RDW Coefficient of Variation 13.4 % (11.5-14.5); RDW Standard Deviation 45.1 fL (36.4-46.3); Red Blood Count 4.37 M/uL (4.20-5.40)
[2023-04-06 10:04] LABS: Albumin Globulin Ratio 1.6 (0.9-2); Albumin Level 4.1 gm/dl (3.4-5.0); BUN Creatinine Ratio 17.3 (10-20); Calcium 9.7 mg/dl (8.6-10.3); Creatinine Clr Calc Pharmacy 62.7 ml/min; Est GFR (African American) 82.3 ml/min; Globulin 2.5 gm/dl (2.5-4.0); Potassium 3.4 mmol/L (3.5-5.1); Total Protein 6.6 gm/dl (6.0-8.3)
[2023-04-06] MEDS ORDERED: MoRPHine SULFATE 4 MG/ML 1 ML CARP\\VIAL IV STA ×3 (10:32→14:38)
[2023-04-06] MEDS ORDERED: SODIUM CHLORIDE 0.9% 1000ML 500 ML IV ONE (12:11)
--- NOTE | 2023-04-06 12:52 | XRay Report ---
PA CHEST RADIOGRAPH AND UPRIGHT AND SUPINE AP RADIOGRAPHS OF THE ABDOMEN CLINICAL HISTORY: Persistent left lower quadrant pain. COMPARISON STUDY: Chest radiograph January 26, [address] of the abdomen and pelvis March 23, 2023. FINDINGS: Left subclavian [id number] is in place. No pneumothorax or pleural effusion is present. Linear left basilar opacity favors atelectasis or scarring. There is no consolidation to suggest pne umonia. No evidence for pulmonary edema. No free air. Pelvic calcifications represent phleboliths. Th ere is no radiographic evidence for a bowel obstruction. Bilateral SI joint fusions are incidentally noted. S-shaped scoliosis of the thoracolumbar spine. IMPRESSION: 1. No free air or evidence for a bowel obstruction. 2. No acute cardiopulmonary findings. ACT 112: Negative or not required by law. Electronically signed by: Gonsalo Villafana M.D. 04/06/2023 12:50 PM
[2023-04-06] MEDS ORDERED: OPTIRAY 320 100ml IV ONE (13:30)
--- NOTE | 2023-04-06 14:32 | CT Scan Report ---
CT SCAN OF THE ABDOMEN AND PELVIS WITH IV CONTRAST CLINICAL HISTORY: Generalized abdominal pain. Nausea and vomiting. COMPARISON STUDY: Abdominal CT dated 03/23/2023 TECHNIQUE: Following the IV administration of 95 cc of Optiray 320, CT scan of the abdomen and pelvi s is performed from the lung bases to the proximal femora. Images are reviewed in the axial, sagittal , and coronal planes. IV contrast was administered without complication. A dose lowering technique wa s utilized adhering to the principles of ALARA. CT DOSE: 1247.48 mGy.cm FINDINGS: Lung bases: The heart is enlarged and without pericardial effusion. The lung bases are clear noting b ibasilar scarring/atelectasis. There is a small hiatal hernia. There is ectasia of the visualized asc ending thoracic aorta. This measures up to 3.9 cm in diameter. Liver: The contrast-enhanced liver is normal in size, contour, and attenuation. There is no intrahepa tic biliary ductal dilatation. The hepatic veins and portal veins are patent. Gallbladder: Unremarkable. Spleen: Normal in size and attenuation. A 9 mm hypervascular lesion in the spleen on image #52 is unc hanged and statistically of doubtful significance. Pancreas: Unremarkable. Adrenal glands: Unremarkable. Kidneys: The contrast enhanced kidneys are normal in size and without hydronephrosis. The kidneys enh ance symmetrically. There are at least 2 nonobstructing left renal calculi which measure up to 4 mm. Scattered subcentimeter cortical hypodensities likely represent cysts but are too small for definitiv e characterization. A circumaortic left renal vein is incidentally noted. Abdominal vasculature: The abdominal aorta is normal in course and caliber noting moderate to advance d atherosclerotic calcification. Bowel: There is mild colonic diverticulosis without CT evidence of acute diverticulitis. No bowel obs truction is seen. The appendix is surgically absent. There is there is wall thickening and edema wit h mucosal hyperemia involving the sigmoid colon. Mild surrounding infiltration is observed. The more proximal colon is normal in appearance. The mesenteric vessels are widely patent. Peritoneum: There is no intraperitoneal free air or abdominal ascites. Lymphadenopathy: None. Pelvic viscera: Uterine fibroids are suggested. The bladder is normal as imaged. No adnexal lesion is seen. Calcified granulomas are noted in the gluteal soft tissues. Skeletal structures: The skeletal structures are osteopenic. There is advanced lumbosacral spondylosi s and scoliosis. Extensive postsurgical change is seen throughout the imaged thoracolumbar spine. Héctor ateral iliac bolts are in place. Sclerotic change is noted in the sacroiliac joints with chronic eros ions suggesting chronic sacroiliitis. No lytic or blastic lesions are seen. There is chronic deformit y of the left-sided ribs. IMPRESSION: 1. There is evidence of a nonspecific colitis of the sigmoid colon. Correlate clinically. 2. Colonic diverticulosis without CT evidence of acute diverticulitis. 3. Left-sided nephrolithiasis. 4. Cardiomegaly. 5. Additional findings as above. ACT 112: Negative or not required by law. Electronically signed by: Ivan Smith M.D. 04/06/2023 2:31 PM
[2023-04-06] MEDS ORDERED: ALUMINUM/MAGNESIUM SUSP 30 ML UDC PO PRN (15:15)
[2023-04-06] MEDS ORDERED: ACETAMINOPHEN 325 MG TAB PO PRN (15:15)
[2023-04-06] MEDS ORDERED: MAGNESIUM HYDROXIDE SUSP 30 ML UDC PO PRN (15:15)
--- NOTE | 2023-04-06 15:27 | History & Physical Report ---
Date of Service April 06, 2023 Assessment & Plan (1) Intractable abdominal pain: (2) Non-specific colitis: (3) History of pulmonary embolism: (4) Vomiting: (5) CAD (coronary artery disease): (6) Hyperlipidemia: (7) Diabetes mellitus, type 2: (8) Hx of Clostridium difficile infection: (9) Hypertension: (10) Depression: Plan 73 year old female presents with intractable persistent abdominal pain x3 weeks. 2 abdominal and pelvic CTs negative; today evidence of nonspecific colitis of the sigmoid colon. No leukocytosis, lactate 0.9. Stool culture and C. difficile ordered. Patient reports hematochezia. Check FOBT. Patient on Eliquis and ASA with history of PE/DVT. Other PMH includes DM 2, history of C. difficile, HTN, HFpEF, HLD, and depression. GEN surge recommends conservative management. GI consult pending. Patient is planned to have endoscopy and colonoscopy in 1 week as outpatient Intractable Abdominal pain: Nonspecific Colitis: Vomiting: x3 weeks with [address]: There is evidence of a nonspecific colitis of the sigmoid colon. Colonic diverticulosis without CT evidence of acute diverticulitis. Left-sided nephrolithiasis. No leukocytosis, Lactate 0.9 Stool culture and panel ordered C-Diff ordered Check FOBT; pt reports blood in stool. If positive, signs of active bleeding or drop of Hgb, hold ASA and Eliquis Scheduled Zofran Strict NPO GI consult; suspect when colitis resolves EGD/Colonoscopy to r/o IBD. ED placed General sx consult; no ischemia noted on CT; appreciate their assistance. Conservative management for now. H/O PE/DVT: 2014; on Eliquis; continue for now. No stools noted since arrival to ED and Hgb 13.8. Hold if FOBT (+) H/O CDiff: Years ago No fecal transplant history Obtain stool sample to r/o C-Diff CAD: s/p AMI 2017: No stents placed Stable and takes Baby ASA; hold pending FOBT DM2: Takes Metformin and Ozempic; hold while inpt FSBS ACHS + SSI while inpatient A1C in AM HTN: Takes Metoprolol; continue HFpEF: Takes Aldactone;continue HLD: Takes Atorvastatin; continue Depression: Takes Buspar; continue Disposition: PCP: Dr. Webb Code Status: Full code VTE Prophylaxis: Teds/SCDs I spent a total of 88 minutes coordinating, documenting, and providing care for this patient excluding time spent in the performance of separately billed services. All of the aforementioned completed while collaborating with the yady nelson attending physician for a full treatment plan. Please see their addendum for further details. History of Present Illness Chief Complaint: intractable abdominal pain Primary Care Provider: Svetlana Jacobs DO Ms. Lua presented to the [facility] today with abdominal pain and worsening diarrhea that has been persistent for the past 3 weeks. She reports 15-20 episodes of diarrhea with hematochezia over the past 24 hours. Additionally, she has had nausea and vomiting. No episodes of vomiting since she has arrived to the ED. She has visited the ED a few times over the past month. She has had two Abdominal/Pelvic CT's that have been negative. Today, an abd/pelvic CT was obtained with evidence of a nonspecific colitis of the sigmoid colon. Colonic diverticulosis without CT evidence of acute diverticulitis. Left-sided nephrolithiasis, no ischemia noted. She reports having fluctuation between constipation and diarrhea over the past few weeks to a month. She is scheduled for an EGD next week. She did have a colonoscopy about 4 years ago which was unremarkable. No family history that includes any IBD or colon CA. She does have a history of C. difficile infection over the past few years. She has had 4 doses of IV morphine since arrival to the ED; will switch to Dilaudid. On exam left lower quadrant tenderness without radiation. Afebrile and does not appear toxic. Hemodynamically stable on room air. No leukocytosis WBC 9.40, otherwise labs unremarkable. Past medical history includes history of DVT and pulmonary embolism in 2015 (on Eliquis), both appear to be spontaneous but she reports it occured around when she had an AMI, but that is documented to be 2017. Additional PMH includes C. difficile infection, HTN, HLD, hypothyroidism, noninsulin-dependent diabetic, HFpEF, and depression. She has a left upper chest wall port from history of cyclic vomiting syndrome. This patient has been experiencing the symptoms for nearly a month would appreciate general surgery and GI weigh in. Patient will be admitted for further evaluation and management. Please see A/P for further details. Allergies Allergy/AdvReac Type Severity Reaction Status Date / Time latex Allergy Intermediate Rash Verified 04/06/23 14:48 nickel Allergy Intermediate SEVERE Verified 04/06/23 14:48 DERMATITIS NSAIDS (Non-Steroidal Allergy Intermediate HX OF Verified 04/06/23 14:48 Anti-Inflamma BLEEDING ULCERS-TO AVOID adhesive tape AdvReac Intermediate SKIN Verified 04/06/23 14:48 IRRITATION aspirin AdvReac Intermediate full dose Verified 04/06/23 14:48 asa -> bleeding ulcers Home Medications Medication Instructions Recorded Confirmed Type atorvastatin 40 mg tablet (Lipitor) 40 mg PO QAM 12/13/18 04/06/23 History levothyroxine 75 mcg tablet 75 mcg PO DAILYBB 12/13/18 04/06/23 History polyethylene glycol 3350 17 gram 17 g PO DAILY PRN Constipation 05/12/19 04/06/23 History oral powder packet promethazine 25 mg tablet 25 mg PO Q6H PRN Nausea 05/12/19 04/06/23 History epinephrine 0.3 mg/0.3 mL 0.3 mg IM Q3H PRN Allergic Reaction 05/23/19 04/06/23 History injection syringe nitroglycerin 0.3 mg sublingual 0.3 mg sublingual UD PRN Chest Pain 05/23/19 04/06/23 History tablet (Nitrostat) olopatadine 0.2 % eye drops 1 drp ophthalmic (eye) QAM 05/23/19 04/06/23 History tizanidine 4 mg tablet 4 mg PO BID PRN Muscle Spasm 04/03/20 04/06/23 History trazodone 100 mg tablet 300 mg PO HS 04/03/20 04/06/23 History furosemide 20 mg tablet 40 mg PO QAM 10/05/20 04/06/23 History metformin 500 mg tablet 500 mg PO BIDM 10/05/20 04/06/23 History loperamide 2 mg capsule 2 mg PO QID PRN Diarrhea 02/15/21 04/06/23 History apixaban 5 mg tablet (Eliquis) 5 mg PO BID 10/11/21 04/06/23 History aspirin 81 mg tablet,delayed 81 mg PO QAM 01/20/23 04/06/23 History release metoprolol succinate 100 mg 100 mg PO QAM 01/20/23 04/06/23 History tablet,extended release 24 hr semaglutide 2 mg/dose (8 mg/3 mL) 2 mg subcut WK 01/20/23 04/06/23 History subcutaneous pen injector (Ozempic) spironolactone 25 mg tablet 25 mg PO QAM 01/20/23 04/06/23 History ondansetron HCl 4 mg tablet 4 mg PO Q6 PRN nausea #15 tabs 02/13/23 04/06/23 Rx buspirone 10 mg tablet 10 mg PO BID 02/20/23 04/06/23 History Past Med/Surg History Medical History (Updated 04/06/23 @ 15:23 by NUPUR Everett) Acute respiratory failure with hypoxia Anemia Anxiety CAD (coronary artery disease) BMS to LAD (2017) Cervical spondylolysis Chronic heart failure with preserved ejection fraction (HFpEF) Cyclic vomiting syndrome Cyclical vomiting Deep vein thrombosis ~2014, unknown cause Degenerative disc disease Depression Diabetes mellitus, type 2 Dyslipidemia GI bleed Hx (declined AC d/t hx of GIB per records) History of COVID-19 10/2021 - treated inpatient at [facility]/Covid PNA History of pulmonary embolism Hx of Clostridium difficile infection Remote hx Hyperlipidemia Hypertension Hypothyroidism Intractable abdominal pain Migraine Hx, no recent issues Myocardial Infarction 2017 Non-specific colitis Osteoarthritis Post traumatic stress disorder Pulmonary embolism ~2014 (UNSURE OF REASON) Restless leg syndrome Scoliosis Vomiting Surgical History Fusion of spine LUMBAR H/O ovarian cystectomy x2 H/O repair of right rotator cuff H/O spinal fusion Multiple History of adenoidectomy History of anesthesia reaction Awareness with spinal surgeries History of appendectomy History of back surgery has bilateral SI Joint replacements (~2020 at [facility] Charli) History of cataract surgery LEFT AND RIGHT History of colonoscopy History of esophagogastroduodenoscopy (EGD) History of heart artery stent 2017-x2 STENTS PLACED AT [facility] (DR. DAVILA) History of laminectomy and fusion "entire spine is fused(except cervical spine)" Barney Archuleta (Dr Catherine) History of tonsillectomy History of vascular access device Left upper chest port (*not a power port*) S/P hardware removal removal of all back hardware (~2002) ROSENDA Archuleta Family History Mother Hypertension Father Hypertension Other No family history of adverse response to anesthesia Social History Smoking Status: Never smoker Second Hand Exposure: No; Do You Dip or Chew Tobacco: No; Hx Alcohol Use: No Hx Substance Use: No Preferred Language: Ukrainian Communication Ability: Effective Visual Impairment: Limited Hearing Ability: Normal Customer Insight Analyst Required: No Beliefs That Will Affect Care: None marital status: Current Living Situation: Alone current occupational status: retired How many Children do You have: 2 Feels Safe at Home: Yes Assistive Devices: None Review of Systems Review of Systems: Neuro: (-) Falls, trauma, slurred speech HEENT: (-) CASILLAS, dizziness, dysphagia, visual or auditory changes CV: (-) CP, palpitations, swelling Resp: (-) SOB GI: (-) appetite changes, N/V/D, (+) constipation and diarrhea : (-) urinary changes Skin: (-) rashes Psych: (-) anxiety, depression Physical Exam Physical Exam: Neuro: AAOx4, PERRLA, no aphagia, memory changes, CNII-XII grossly intact HEENT: head normocephalic, moist mucus membranes CV: S1/S2, (-) M/G/R, (-) edema, cap refill < 3 seconds Resp: Lungs CTA in all linares. On RA GI: Abdomen soft, + tenderness LLQ without radiation, Ax4 bowel sounds, (-) CVA tenderness Musculoskeletal: 5/5 B/L UE strength, 5/5 B/L LE strength. No gait disturbance Skin: (-) rashes , (-) erythema. Psych: euthymic mood Results & Data Results & Data Vital Signs (Past 12 Hours) Vital Signs Temp Pulse Pulse Resp BP Pulse Ox O2 Del Method 04/06/23 10:26 86 16 95 Room Air 04/06/23 08:56 92 H 04/06/23 08:59 90 16 95 04/06/23 08:55 36.3 C L 89 14 100/74 95 Room Air Laboratory Results Short CBC 04/06/23 Range/Units 09:30 WBC 9.40 (4.8-10.8) K/ul Hgb 13.8 (12.0-16.0) g/dl Hct 39.8 (37.0-47.0) % Plt Count 263 (130-400) K/uL BMP 04/06/23 09:30 Sodium 137 Potassium 3.4 L Chloride 103 Carbon Dioxide 28 BUN 14 Creatinine 0.81 Glucose 107 H Calcium 9.7 Liver Function 04/06/23 Range/Units 09:30 Total Bilirubin 1.0 (0.2-1.0) mg/dl AST 17 (13-39) U/L ALT 17 (7-52) U/L Alkaline Phosphatase 67 (34-104) U/L Albumin 4.1 (3.4-5.0) gm/dl Diagnostic Findings Chest/Abdomen X-ray 04/06/23 09:06 PA CHEST RADIOGRAPH AND UPRIGHT AND SUPINE AP RADIOGRAPHS OF THE ABDOMEN CLINICAL HISTORY: Persistent left lower quadrant pain. COMPARISON STUDY: Chest radiograph January 26, [address] of the abdomen and pelvis March 23, 2023. FINDINGS: Left subclavian [id number] is in place. No pneumothorax or pleural effusion is present. Linear left basilar opacity favors atelectasis or scarring. There is no consolidation to suggest pneumonia. No evidence for pulmonary edema. No free air. Pelvic calcifications represent phleboliths. There is no radiographic evidence for a bowel obstruction. Bilateral SI joint fusions are incidentally noted. S-shaped scoliosis of the thoracolumbar spine. IMPRESSION: 1. No free air or evidence for a bowel obstruction. 2. No acute cardiopulmonary findings. ACT 112: Negative or not required by law. Electronically signed by: Gonsalo Villafana M.D. 04/06/2023 12:50 PM Abdomen/Pelvis CT 04/06/23 12:11 CT SCAN OF THE ABDOMEN AND PELVIS WITH IV CONTRAST CLINICAL HISTORY: Generalized abdominal pain. Nausea and vomiting. COMPARISON STUDY: Abdominal CT dated 03/23/2023 TECHNIQUE: Following the IV administration of 95 cc of Optiray 320, CT scan of the abdomen and pelvis is performed from the lung bases to the proximal femora. Images are reviewed in the axial, sagittal, and coronal planes. IV contrast was administered without complication. A dose lowering technique was utilized adhering to the principles of ALARA. CT DOSE: 1247.48 mGy.cm FINDINGS: Lung bases: The heart is enlarged and without pericardial effusion. The lung bases are clear noting bibasilar scarring/atelectasis. There is a small hiatal hernia. There is ectasia of the visualized ascending thoracic aorta. This measures up to 3.9 cm in diameter. Liver: The contrast-enhanced liver is normal in size, contour, and attenuation. There is no intrahepatic biliary ductal dilatation. The hepatic veins and portal veins are patent. Gallbladder: Unremarkable. Spleen: Normal in size and attenuation. A 9 mm hypervascular lesion in the spleen on image #52 is unchanged and statistically of doubtful significance. Pancreas: Unremarkable. Adrenal glands: Unremarkable. Kidneys: The contrast enhanced kidneys are normal in size and without hydronephrosis. The kidneys enhance symmetrically. There are at least 2 nonobstructing left renal calculi which measure up to 4 mm. Scattered subcentimeter cortical hypodensities likely represent cysts but are too small for definitive characterization. A circumaortic left renal vein is incidentally noted. Abdominal vasculature: The abdominal aorta is normal in course and caliber noting moderate to advanced atherosclerotic calcification. Bowel: There is mild colonic diverticulosis without CT evidence of acute diverticulitis. No bowel obstruction is seen. The appendix is surgically absent. There is there is wall thickening and edema with mucosal hyperemia invo lving the sigmoid colon. Mild surrounding infiltration is observed. The more proximal colon is normal in appearance. The mesenteric vessels are widely patent. Peritoneum: There is no intraperitoneal free air or abdominal ascites. Lymphadenopathy: None. Pelvic viscera: Uterine fibroids are suggested. The bladder is normal as imaged. No adnexal lesion is seen. Calcified granulomas are noted in the gluteal soft tissues. Skeletal structures: The skeletal structures are osteopenic. There is advanced lumbosacral spondylosis and scoliosis. Extensive postsurgical change is seen throughout the imaged thoracolumbar spine. Bilateral iliac bolts are in place. Sclerotic change is noted in the sacroiliac joints with chronic erosions suggesting chronic sacroiliitis. No lytic or blastic lesions are seen. There is chronic deformity of the left-sided ribs. IMPRESSION: 1. There is evidence of a nonspecific colitis of the sigmoid colon. Correlate clinically. 2. Colonic diverticulosis without CT evidence of acute diverticulitis. 3. Left-sided nephrolithiasis. 4. Cardiomegaly. 5. Additional findings as above. ACT 112: Negative or not required by law. Electronically signed by: Ivan Smith M.D. 04/06/2023 2:31 PM Code Status & VTE Plan Code Status Full Code in the event of cardiac or respiratory arrest VTE Prophylaxis Plan VTE Prophylaxis will be ordered: Yes Supervising Physician Co-Signing Physician Notes I have seen and examined the patient and have discussed the case with the provider above. I agree with the assessment and plan as stated with the following exceptions. The patient is a 73-year-old female presenting with worsening abdominal pain and intermittent diarrhea over the past 3 weeks. Vomiting and nausea is persistent and diarrhea has been persistent. She reports vomiting and having diarrhea last this morning around 5 AM. She reports the pain medicine is helping her abdomen, especially the Dilaudid. We did discuss that this would not be a long-term option and hopefully rehydrating her will help with some of her symptoms. She verbalized understanding. She reports having blackish stools over the past 2 weeks. Hemoglobin is normal. She is hemodynamically stable. Other physical exam findings include an abdomen that is very tender to palpation out of proportion to exam. Her abdomen is soft and nondistended but appears to be exquisitely tender in the left lower quadrant/suprapubic area. She was notably very comfortable when I arrived in the room and progressively, her pain seemed to worsen each minute I was there including when she started to voluntarily shake her arms to express how painful her abdomen was. She was reporting feeling hungry and felt she should eat something "with substance." We agreed upon a clear liquid diet. Otherwise skin was warm and dry lungs were clear to auscultation bilaterally and cardiovascular exam was within normal limits. Lab work reveals a CBC with no abnormalities, potassium slightly low at 3.4 otherwise normal renal function, no issues with hepatic panel and lipase was 25. No urinary infection was noted. Exam included an abdomen pelvis CT with IV contrast revealing a nonspecific colitis of the sigmoid colon. She appears nontoxic and does not appear septic. Agree with plans to avoid antibiotics given the history of C. difficile and lack of toxicity clinically. She is afebrile with no evidence of elevated white count. Likely ischemic colitis given history of vomiting and poor p.o. intake in setting of diuretic use. Continue supportive care efforts including rehydration and hold diuretics for the time being. Continue to monitor clinical progress. DO Nigel
--- NOTE | 2023-04-06 16:22 | Surgery Consultation ---
Date of Consultation April 06, 2023 Assessment & Plan (1) Non-specific colitis: see below (2) Intractable abdominal pain: see below (3) Vomiting: see below (4) Hx of Clostridium difficile infection: see below Plan 73 year-old female with 3 week history of abdominal pain with constipation and diarrhea with progressively worsening abdominal pain in last 24-48 hours with 20 episodes of diarrhea with nausea and vomiting. CT scan with nonspecific colitis of sigmoid colon. No leukocytosis, afebrile, hemodynamically stable. Abdomen is soft with tenderness throughout left abdomen but no rigidity/guarding. Lactic acid pending. DDX: nonspecific colitis, c. diff colitis, vs ischemic colitis due to dehydration? Plan: No acute surgical intervention required at this time Conservative management: NPO for strict bowel rest, IV fluid hydration, IV pain management as needed (Consider trying Dilaudid as still having moderate pain with 3 doses of Morphine), IV antiemetics as needed. GI consultation Repeat am labs Discussed with Dr. Nieves who agrees with above. see addendum for further recommendations/plan. I Abelardo Nieves MD ) saw pt at ER. I agreed with above treatment plan, will F/U. History of Present Illness Reason for Consultation: Abdominal pain, nonspecific colitis of sigmoid colon Requesting Physician: Dr. Benjamin Attending Physician: Dr. Benjamin History of Present Illness Ester is a 73 year-old female who presented to emergency department with increasing abdominal pain in the left lower abdomen in last 24-48 hours. Has had chronic abdominal pain for past 3 weeks but started to increase in severity last few days. Was in ER on 03/23/[address] scan and labs. She has history of chronic constipation however has been having intermittent constipation and diarrhea for past few weeks. Follows with Juan Luis arreguin in GI and was last seen on 04/03/23 and scheduled for EGD and Colonoscopy. States she had about 20 episodes of diarrhea in last 24 hours with some bright red blood and then black stools. Also had nausea and vomiting. could not keep anything down. Noticed lightheadedness and dizziness. no fevers. no difficulty urinating or blood in urine. Has history of c. diff infection x 2 in past after hospitalization. History of DVT and pulmonary embolism on eliquis and baby aspirin. Unsure of cause of the blood clot. States she also has issues with her Gi system. Has cyclical vomiting syndrome but this has been different. Colonoscopy about 4-5 years ago which was unremarkable. No family history of co carrie cancer or inflammatory bowel disease. States she is feeling better regarding nausea and vomiting since coming to ER. States pain is about 6/10. Morphine helps pain but then seems to come back again with sharp stabbing pains. Has had 3 doses of IV Morphine. Allergies Allergy/AdvReac Type Severity Reaction Status Date / Time latex Allergy Intermediate Rash Verified 04/06/23 14:48 nickel Allergy Intermediate SEVERE Verified 04/06/23 14:48 DERMATITIS NSAIDS (Non-Steroidal Allergy Intermediate HX OF Verified 04/06/23 14:48 Anti-Inflamma BLEEDING ULCERS-TO AVOID adhesive tape AdvReac Intermediate SKIN Verified 04/06/23 14:48 IRRITATION aspirin AdvReac Intermediate full dose Verified 04/06/23 14:48 asa -> bleeding ulcers Home Medications Medication Instructions Recorded Confirmed Type atorvastatin 40 mg tablet (Lipitor) 40 mg PO QAM 12/13/18 04/06/23 History levothyroxine 75 mcg tablet 75 mcg PO DAILYBB 12/13/18 04/06/23 History polyethylene glycol 3350 17 gram 17 g PO DAILY PRN Constipation 05/12/19 04/06/23 History oral powder packet promethazine 25 mg tablet 25 mg PO Q6H PRN Nausea 05/12/19 04/06/23 History epinephrine 0.3 mg/0.3 mL 0.3 mg IM Q3H PRN Allergic Reaction 05/23/19 04/06/23 History injection syringe nitroglycerin 0.3 mg sublingual 0.3 mg sublingual UD PRN Chest Pain 05/23/19 04/06/23 History tablet (Nitrostat) olopatadine 0.2 % eye drops 1 drp ophthalmic (eye) QAM 05/23/19 04/06/23 History tizanidine 4 mg tablet 4 mg PO BID PRN Muscle Spasm 04/03/20 04/06/23 History trazodone 100 mg tablet 300 mg PO HS 04/03/20 04/06/23 History furosemide 20 mg tablet 40 mg PO QAM 10/05/20 04/06/23 History metformin 500 mg tablet 500 mg PO BIDM 10/05/20 04/06/23 History loperamide 2 mg capsule 2 mg PO QID PRN Diarrhea 02/15/21 04/06/23 History apixaban 5 mg tablet (Eliquis) 5 mg PO BID 10/11/21 04/06/23 History aspirin 81 mg tablet,delayed 81 mg PO QAM 01/20/23 04/06/23 History release metoprolol succinate 100 mg 100 mg PO QAM 01/20/23 04/06/23 History tablet,extended release 24 hr semaglutide 2 mg/dose (8 mg/3 mL) 2 mg subcut WK 01/20/23 04/06/23 History subcutaneous pen injector (Ozempic) spironolactone 25 mg tablet 25 mg PO QAM 01/20/23 04/06/23 History ondansetron HCl 4 mg tablet 4 mg PO Q6 PRN nausea #15 tabs 02/13/23 04/06/23 Rx buspirone 10 mg tablet 10 mg PO BID 02/20/23 04/06/23 History Patient History Medical History (Updated 04/06/23 @ 15:23 by NUPUR Everett) Acute respiratory failure with hypoxia Anemia Anxiety CAD (coronary artery disease) BMS to LAD (2016) Cervical spondylolysis Chronic heart failure with preserved ejection fraction (HFpEF) Cyclic vomiting syndrome Cyclical vomiting Deep vein thrombosis ~2014, unknown cause Degenerative disc disease Depression Diabetes mellitus, type 2 Dyslipidemia GI bleed Hx (declined AC d/t hx of GIB per records) History of COVID-19 10/2021 - treated inpatient at [facility]/Covid PNA History of pulmonary embolism Hx of Clostridium difficile infection Remote hx Hyperlipidemia Hypertension Hypothyroidism Intractable abdominal pain Migraine Hx, no recent issues Myocardial Infarction 2016 Non-specific colitis Osteoarthritis Post traumatic stress disorder Pulmonary embolism ~2014 (UNSURE OF REASON) Restless leg syndrome Scoliosis Vomiting Surgical History Fusion of spine LUMBAR H/O ovarian cystectomy x2 H/O repair of right rotator cuff H/O spinal fusion Multiple History of adenoidectomy History of anesthesia reaction Awareness with spinal surgeries History of appendectomy History of back surgery has bilateral SI Joint replacements (~2020 at [facility]) History of cataract surgery LEFT AND RIGHT History of colonoscopy History of esophagogastroduodenoscopy (EGD) History of heart artery stent 2017-x2 STENTS PLACED AT [facility] (DR. DAVILA) History of laminectomy and fusion "entire spine is fused(except cervical spine)" [facility] (Dr Catherine) 1989' History of tonsillectomy History of vascular access device Left upper chest port (*not a power port*) S/P hardware removal removal of all back hardware (~2002) [facility] Family History Mother Hypertension Father Hypertension Other No family history of adverse response to anesthesia Social History Smoking Status: Never smoker Second Hand Exposure: No; Do You Dip or Chew Tobacco: No; Hx Alcohol Use: No Hx Substance Use: No Preferred Language: Montenegrin Communication Ability: Effective Visual Impairment: Limited Hearing Ability: Normal 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 C-diff infection. S/P appendectomy, GI bleed Genitourinary: as per Subjective / HPI Musculoskeletal: as per Subjective / HPI Neurologic: as per Subjective / HPI Psychiatric: mood disorder Endocrine: as per Subjective / HPI Hematologic / Lymphatic: as per Subjective / HPI Physical Exam Constitutional: cooperative; no acute distress, not ill appearing and not combative seems uncomfortable, taking deep breath causes abdominal pain. Shivering as she is cold. Respiratory: normal respiratory effort, lungs clear to auscultation Cardiovascular: RRR, no murmur, no edema Chest (Breasts): Chest: + vascular access device or port (Right chest wall) Gastrointestinal (Abdomen): Inspection/Auscultation: abdomen normal to inspection and + hypoactive bowel sounds; abdomen not distended and + abnormal bowel sounds Percussion/Palpation: + abdomen tender (Left upper and lower quadrants), + guarding (left upper and lower abdomen) and abdomen soft; abdomen not rigid and abdomen not firm Very tender in the left abdomen on mild palpation however abdomen is soft with no rigidity or peritonitis Skin: no rashes, warm and dry Psychiatric: Orientation: alert and oriented x 3 Results & Data Vital Signs (Past 12 Hours) Vital Signs Temp Pulse Pulse Resp BP BP Pulse Ox 04/06/23 15:17 68 18 123/73 97 04/06/23 10:26 86 16 95 04/06/23 08:56 92 H 04/06/23 08:59 90 16 95 04/06/23 08:55 36.3 C L 89 14 100/74 95 O2 Del Method 04/06/23 15:17 Room Air 04/06/23 10:26 Room Air 04/06/23 08:56 04/06/23 08:59 04/06/23 08:55 Room Air Laboratory Results 04/06/23 04/06/23 Range/Units 09:30 09:30 WBC 9.40 (4.8-10.8) K/ul RBC 4.37 (4.20-5.40) M/uL Hgb 13.8 (12.0-16.0) g/dl Hct 39.8 (37.0-47.0) % MCV 91.1 (80.0-100.0) fL MCH 31.6 (25.0-34.0) pg MCHC 34.7 (32.0-36.0) g/dL RDW Std Deviation 45.1 (36.4-46.3) fL RDW Coeff of [place]den 13.4 (11.5-14.5) % Plt Count 263 (130-400) K/uL MPV 9.7 (9.4-12.4) fL Immature Gran % (Auto) 0.2 % Neut % (Auto) 63.1 % Lymph % (Auto) 25.7 % Anderson % (Auto) 9.3 % Eos % (Auto) 1.4 % Baso % (Auto) 0.3 % Neut # (Auto) 5.93 (1.40-6.50) K/uL Lymph # (Auto) 2.42 (1.2-3.4) K/uL Anderson # (Auto) 0.87 H (0.11-0.59) K/uL Eos # (Auto) 0.13 (0-0.50) K/uL Baso # (Auto) 0.03 (0-0.2) K/uL Immature Gran # (Auto) 0.02 (0.01-0.20) K/uL Sodium 137 (136-145) mmol/L Potassium 3.4 L (3.5-5.1) mmol/L Chloride 103 (98-107) mmol/L Carbon Dioxide 28 (21-32) mmol/L Anion Gap 6 (3-11) BUN 14 (6-23) mg/dl Creatinine 0.81 (0.6-1.2) mg/dl Est Cr Clr Drug Dosing 62.7 ml/min Est GFR ( Amer) 82.3 ml/min Est GFR (Non-Af Amer) 71.0 ml/min BUN/Creatinine Ratio 17.3 (10-20) Glucose 107 H (70-99(Fasting)) mg/dl Calcium 9.7 (8.6-10.3) mg/dl Total Bilirubin 1.0 (0.2-1.0) mg/dl AST 17 (13-39) U/L ALT 17 (7-52) U/L Alkaline Phosphatase 67 (34-104) U/L Total Protein 6.6 (6.0-8.3) gm/dl Albumin 4.1 (3.4-5.0) gm/dl Globulin 2.5 (2.5-4.0) gm/dl Albumin/Globulin Ratio 1.6 (0.9-2) Lipase 25 (11-82) U/L Diagnostic Findings CT SCAN OF THE ABDOMEN AND PELVIS WITH IV CONTRAST CLINICAL HISTORY: Generalized abdominal pain. Nausea and vomiting. COMPARISON STUDY: Abdominal CT dated 03/23/2023 TECHNIQUE: Following the IV administration of 95 cc of Optiray 320, CT scan of the abdomen and pelvis is performed from the lung bases to the proximal femora. Images are reviewed in the axial, sagittal, and coronal planes. IV contrast was administered without complication. A dose lowering technique was utilized adhering to the principles of ALARA. CT DOSE: 1247.48 mGy.cm FINDINGS: Lung bases: The heart is enlarged and without pericardial effusion. The lung bases are clear noting bibasilar scarring/atelectasis. There is a small hiatal hernia. There is ectasia of the visualized ascending thoracic aorta. This measures up to 3.9 cm in diameter. Liver: The contrast-enhanced liver is normal in size, contour, and attenuation. There is no intrahepatic biliary ductal dilatation. The hepatic veins and portal veins are patent. Gallbladder: Unremarkable. Spleen: Normal in size and attenuation. A 9 mm hypervascular lesion in the spleen on image #52 is unchanged and statistically of doubtful significance. Pancreas: Unremarkable. Adrenal glands: Unremarkable. Kidneys: The contrast enhanced kidneys are normal in size and without hydronephrosis. The kidneys enhance symmetrically. There are at least 2 nonobstructing left renal calculi which measure up to 4 mm. Scattered sub centimeter cortical hypodensities likely represent cysts but are too small for definitive characterization. A circumaortic left renal vein is incidentally noted. Abdominal vasculature: The abdominal aorta is normal in course and caliber noting moderate to advanced atherosclerotic calcification. Bowel: There is mild colonic diverticulosis without CT evidence of acute diverticulitis. No bowel obstruction is seen. The appendix is surgically absent. There is there is wall thickening and edema with mucosal hyperemia involving the sigmoid colon. Mild surrounding infiltration is observed. The more proximal colon is normal in appearance. The mesenteric vessels are widely patent. Peritoneum: There is no intraperitoneal free air or abdominal ascites. Lymphadenopathy: None. Pelvic viscera: Uterine fibroids are suggested. The bladder is normal as imaged. No adnexal lesion is seen. Calcified granulomas are noted in the gluteal soft tissues. Skeletal structures: The skeletal structures are osteopenic. There is advanced lumbosacral spondylosis and scoliosis. Extensive postsurgical change is seen throughout the imaged thoracolumbar spine. Bilateral iliac bolts are in place. Sclerotic change is noted in the sacroiliac joints with chronic erosions suggesting chronic sacroiliitis. No lytic or blastic lesions are seen. There is chronic deformity of the left-sided ribs. IMPRESSION: 1. There is evidence of a nonspecific colitis of the sigmoid colon. Correlate clinically. 2. Colonic diverticulosis without CT evidence of acute diverticulitis. 3. Left-sided nephrolithiasis. 4. Cardiomegaly. 5. Additional findings as above.
[2023-04-06] MEDS: POTASSIUM CHLORIDE / WTR 10 MEQ/100 ML PLCT IV SCH ×2 (16:39→18:41)
[2023-04-06] MEDS: ONDANSETRON INJ 2 MG/ML 2 ML VIAL IV SCH ×2 (16:39→20:47)
[2023-04-06] MEDS ORDERED: CARBOHYDRATES FOR HYPOGLYCEMIA PO PRN (17:25)
[2023-04-06] MEDS ORDERED: DEXTROSE 50% 50 ML SYRINGE IV PRN (17:25)
[2023-04-06] MEDS ORDERED: GLUCOSE 40% GEL 15 GM TUBE PO PRN (17:25)
[2023-04-06] MEDS ORDERED: GLUCAGON FOR INJ 1 MG VIAL SQ PRN (17:25)
[2023-04-06] MEDS ORDERED: PHARMACY GLYCEMIC MGMT CONSULT PRN (17:25)
[2023-04-06] MEDS ORDERED: GLUCOSE 10 TAB/TUBE PO PRN (17:25)
[2023-04-06] MEDS: HYDROmorphone INJ 0.5 MG/0.5 ML SYR IV PRN ×2 (17:30→21:47)
[2023-04-06] MEDS: SODIUM CHLORIDE 0.9% 1000ML 1,000 ML IV SCH ×2 (17:32→18:41)
[2023-04-06] MEDS: ACETAMINOPHEN 500 MG TAB PO SCH (20:45)
[2023-04-06 20:46] LABS: Appearance Urine Clear (Clear); Bilirubin Urine Negative (Negative); Blood Urine Negative (Negative); Color Urine Yellow; Glucose Urine UA Negative (Negative); Ketones Urine Trace (Negative); Leukocyte Esterase Urine Negative (Negative); Nitrite Urine Negative (Negative); Protein Urine Negative (Negative); Specific Gravity Urine > 1.045 (1.000-1.030); Urobilinogen Urine Negative (Negative); pH Urine 6.5 (4.5-7.5)
[2023-04-06] MEDS: busPIRone 5 MG TAB PO SCH (20:46)
[2023-04-06] MEDS: APIXABAN 5 MG TABLET PO SCH (20:46)
[2023-04-06] MEDS ORDERED: INSULIN ASPART PER UNIT CHARGE SC SCH (21:00)
[2023-04-06] MEDS ORDERED: LANTUS PER UNIT CHARGE SQ SCH (21:00)
[2023-04-06] MEDS: INSULIN ASPART PER UNIT CHARGE SC SCH (21:46)
[2023-04-06 22:16] LABS: Hematocrit (blood only) 34.1 % (37.0-47.0); Hemoglobin 11.7 g/dl (12.0-16.0); Mean Corpuscular Hgb Conc 34.3 g/dL (32.0-36.0); Mean Corpuscular Volume 93.2 fL (80.0-100.0); Mean Platelet Volume 9.9 fL (9.4-12.4); Platelet Count 182 K/uL (130-400); RDW Coefficient of Variation 13.5 % (11.5-14.5); RDW Standard Deviation 45.8 fL (36.4-46.3); Red Blood Count 3.66 M/uL (4.20-5.40); White Blood Count 9.16 K/ul (4.8-10.8)
[2023-04-07] MEDS: HYDROmorphone INJ 0.5 MG/0.5 ML SYR IV PRN ×6 (01:31→22:29)
[2023-04-07] MEDS: ONDANSETRON INJ 2 MG/ML 2 ML VIAL IV SCH ×4 (03:27→22:29)
[2023-04-07] MEDS: LEVOTHYROXINE SODIUM 75 MCG TABLET PO SCH (05:44)
[2023-04-07] MEDS: ACETAMINOPHEN 500 MG TAB PO SCH ×3 (05:44→22:30)
[2023-04-07] MEDS: INSULIN ASPART PER UNIT CHARGE SC SCH ×4 (06:45→21:38)
[2023-04-07 06:46] LABS: BUN Creatinine Ratio 11.5 (10-20); Calcium 8.7 mg/dl (8.6-10.3); Creatinine Clr Calc Pharmacy 83.1 ml/min; Est GFR (African American) 102.8 ml/min; Est GFR (Non-African American) 88.7 ml/min; Magnesium 1.7 mg/dl (1.7-2.4); Phosphorus 3.4 mg/dl (2.5-4.9)
[2023-04-07 06:47] LABS: Hematocrit (blood only) 33.2 % (37.0-47.0); Hemoglobin 11.1 g/dl (12.0-16.0); Mean Corpuscular Hemoglobin 31.4 pg (25.0-34.0); Mean Corpuscular Hgb Conc 33.4 g/dL (32.0-36.0); Mean Corpuscular Volume 94.1 fL (80.0-100.0); Mean Platelet Volume 9.8 fL (9.4-12.4); Platelet Count 222 K/uL (130-400); RDW Coefficient of Variation 13.6 % (11.5-14.5); RDW Standard Deviation 46.3 fL (36.4-46.3); Red Blood Count 3.53 M/uL (4.20-5.40)
[2023-04-07 07:15] LABS: Estimated Average Glucose 117 mg/dl; Hemoglobin A1C 5.7 % (4.5-5.6)
[2023-04-07] MEDS: busPIRone 5 MG TAB PO SCH ×2 (08:44→22:29)
[2023-04-07] MEDS: METOPROLOL SUCC 50MG EXT REL TAB PO SCH (08:44)
[2023-04-07] MEDS: ASPIRIN 81 MG ECTAB PO SCH (08:44)
[2023-04-07] MEDS: APIXABAN 5 MG TABLET PO SCH ×2 (08:44→22:30)
[2023-04-07] MEDS: ATORVASTATIN 40 MG TAB PO SCH (08:44)
[2023-04-07] MEDS ORDERED: FUROSEMIDE 40 MG TAB PO SCH (09:00)
[2023-04-07] MEDS ORDERED: SPIRONOLACTONE 25 MG TAB PO SCH (09:00)
--- NOTE | 2023-04-07 10:14 | Gastrointestinal Consultation ---
Date of Consultation April 07, 2023 Assessment & Plan (1) Change in bowel habits: (2) Non-specific colitis: (3) Intractable abdominal pain: Plan -Obtain stool PCR & C diff testing -Timing of EGD/colonoscopy TBD -Supportive care History of Present Illness Reason for Consultation: Intractable abdominal pain, colitis Attending Physician: Venkatesh Banks MD History of Present Illness Patient is a 73 yo female with PMH of DM2, C diff, HLD, HTN, CAD, PE, ovarian cyst, & recent abdominal pain and diarrhea with BRBPR. She was seen in our outpatient clinic on 04/03/23 by Juan Luis Shah PA-C for this issue. At the time she had an unremarkable CT scan. She was scheduled for an EGD and colonoscopy for further evaluation on 04/13. She notes that over the weekend her symptoms worsened. She notes she will have days of diarrhea occurring more than 20 times daily. She will then have 1-2 days without a bowel movement. Each bowel movement consists of a significant amount of BRBPR. H/H 11.1/33.[address] scan of the abdomen/pelvis with IV contrast showed a non-specific colitis of the sigmoid colon. She notes significant LLQ abdominal pain. LFTs unremarkable. She has a history of C diff infection x 2. She has a history of 2 abdominal surgeries in the past. No sick contacts. No other changes/concerns. Last colonoscopy in [address] Sanders that was interestingly performed for the indication of "abnormal CT of the GI tract" indicating colitis. Allergies Allergy/AdvReac Type Severity Reaction Status Date / Time latex Allergy Intermediate Rash Verified 04/06/23 14:48 nickel Allergy Intermediate SEVERE Verified 04/06/23 14:48 DERMATITIS NSAIDS (Non-Steroidal Allergy Intermediate HX OF Verified 04/06/23 14:48 Anti-Inflamma BLEEDING ULCERS-TO AVOID adhesive tape AdvReac Intermediate SKIN Verified 04/06/23 14:48 IRRITATION aspirin AdvReac Intermediate full dose Verified 04/06/23 14:48 asa -> bleeding ulcers Home Medications Medication Instructions Recorded Confirmed Type atorvastatin 40 mg tablet (Lipitor) 40 mg PO QAM 12/13/18 04/06/23 History levothyroxine 75 mcg tablet 75 mcg PO DAILYBB 12/13/18 04/06/23 History polyethylene glycol 3350 17 gram 17 g PO DAILY PRN Constipation 05/12/19 04/06/23 History oral powder packet promethazine 25 mg tablet 25 mg PO Q6H PRN Nausea 05/12/19 04/06/23 History epinephrine 0.3 mg/0.3 mL 0.3 mg IM Q3H PRN Allergic Reaction 05/23/19 04/06/23 History injection syringe nitroglycerin 0.3 mg sublingual 0.3 mg sublingual UD PRN Chest Pain 05/23/19 04/06/23 History tablet (Nitrostat) olopatadine 0.2 % eye drops 1 drp ophthalmic (eye) QAM 05/23/19 04/06/23 History tizanidine 4 mg tablet 4 mg PO BID PRN Muscle Spasm 04/03/20 04/06/23 History trazodone 100 mg tablet 300 mg PO HS 04/03/20 04/06/23 History furosemide 20 mg tablet 40 mg PO QAM 10/05/20 04/06/23 History metformin 500 mg tablet 500 mg PO BIDM 10/05/20 04/06/23 History loperamide 2 mg capsule 2 mg PO QID PRN Diarrhea 02/15/21 04/06/23 History apixaban 5 mg tablet (Eliquis) 5 mg PO BID 10/11/21 04/06/23 History aspirin 81 mg tablet,delayed 81 mg PO QAM 01/20/23 04/06/23 History release metoprolol succinate 100 mg 100 mg PO QAM 01/20/23 04/06/23 History tablet,extended release 24 hr semaglutide 2 mg/dose (8 mg/3 mL) 2 mg subcut WK 01/20/23 04/06/23 History subcutaneous pen injector (Ozempic) spironolactone 25 mg tablet 25 mg PO QAM 01/20/23 04/06/23 History ondansetron HCl 4 mg tablet 4 mg PO Q6 PRN nausea #15 tabs 02/13/23 04/06/23 Rx buspirone 10 mg tablet 10 mg PO BID 02/20/23 04/06/23 History Patient History Medical History Acute respiratory failure with hypoxia Anemia Anxiety CAD (coronary artery disease) BMS to LAD (2016) Cervical spondylolysis Chronic heart failure with preserved ejection fraction (HFpEF) Cyclic vomiting syndrome Cyclical vomiting Deep vein thrombosis ~2014, unknown cause Degenerative disc disease Depression Diabetes mellitus, type 2 Dyslipidemia GI bleed Hx (declined AC d/t hx of GIB per records) History of COVID-19 10/2021 - treated inpatient at [facility]/Covid PNA History of pulmonary embolism Hx of Clostridium difficile infection Remote hx Hyperlipidemia Hypertension Hypothyroidism Intractable abdominal pain Migraine Hx, no recent issues Myocardial Infarction 2017 Non-specific colitis Osteoarthritis Post traumatic stress disorder Pulmonary embolism ~2014 (UNSURE OF REASON) Restless leg syndrome Scoliosis Vomiting Surgical History Fusion of spine LUMBAR H/O ovarian cystectomy x2 H/O repair of right rotator cuff H/O spinal fusion Multiple History of adenoidectomy History of anesthesia reaction Awareness with spinal surgeries History of appendectomy History of back surgery has bilateral SI Joint replacements (~2020 at [facility]) History of cataract surgery LEFT AND RIGHT History of colonoscopy History of esophagogastroduodenoscopy (EGD) History of heart artery stent 2017-x2 STENTS PLACED AT [facility] (DR. DAVILA) History of laminectomy and fusion "entire spine is fused(except cervical spine)" [facility] (Dr Catherine) 1989' History of tonsillectomy History of vascular access device Left upper chest port (*not a power port*) S/P hardware removal removal of all back hardware (~2002) [facility] Family History Mother Hypertension Father Hypertension Other No family history of adverse response to anesthesia Social History Smoking Status: Never smoker Second Hand Exposure: No; Do You Dip or Chew Tobacco: No; Hx Alcohol Use: No Hx Substance Use: No Preferred Language: Greek Communication Ability: Effective Visual Impairment: Limited Hearing Ability: Normal Escape Wheel Tooth Cutter Required: No Beliefs That Will Affect Care: None marital status: Current Living Situation: Alone current occupational status: retired How many Children do You have: 2 Feels Safe at Home: Yes Assistive Devices: None Review of Systems Constitutional: no fever and no chills Respiratory: no cough and no dyspnea Cardiovascular: no chest pain Gastrointestinal: + abdominal pain, + change in bowel habits, + diarrhea/loose stools and + blood in stools Psychiatric: no problem reported Hematologic / Lymphatic: no unexplained weight loss Physical Exam Constitutional: well developed Respiratory: normal respiratory effort Cardiovascular: RRR, no murmur, no edema Gastrointestinal (Abdomen): Inspection/Auscultation: abdomen normal to inspection Percussion/Palpation: + abdomen tender and abdomen soft Musculoskeletal: Head/Neck/Chest: normocephalic Psychiatric: Orientation: alert and oriented x 3 Results & Data Vital Signs (Past 12 Hours) Vital Signs Temp Pulse Pulse Resp BP Pulse Ox O2 Del Method 04/07/23 07:42 36.5 C 62 18 108/68 94 Room Air 04/07/23 05:58 70 04/07/23 03:57 36.5 C 80 18 96/63 L 92 Room Air 04/07/23 01:00 80 04/06/23 23:05 36.9 C 82 18 115/68 91 Room Air PG Care Time/CCT Total # of Minutes Spent Total Time Spent with Patient: Total time spent is greater than 50% in coordination of care (as documented) at patient's floor/unit and/or counseling patient: Coding Level of Care Code 68048 INT INP/OBS CARE 3/75MIN Diagnoses Change in bowel habits R19.4 Non-specific colitis K52.9 Intractable abdominal pain R10.9
[2023-04-07] MEDS ORDERED: oxyCODONE/ACETAMINOPHEN 5mg/325mg TAB PO PRN (10:34)
--- NOTE | 2023-04-07 10:39 | Surgery Progress Note ---
Date of Service April 07, 2023 Assessment & Plan (1) Non-specific colitis: Plan: see below (2) Intractable abdominal pain: (3) Vomiting: Plan: resolved (4) Hx of Clostridium difficile infection: Plan afebrile, vss no leukocytosis pain better controlled but still rating 7/10 no diarrhea, + flatus tolerated clear liquids lactic acid wnl yesterday Plan: Continue conservative management Recommend clear liquids today given persistent pain and still very tender on exam pain management as needed, added oral percocet as she is tolerating clear li quids antiemetics as needed encourage ambulating GI consult pending, to determine timing of EGD/Colonoscopy discussed with patient this will likely be delayed given colitis and risk of perforation during acute inflammation. Ultimately will be decided by GI team Continue medical management Dr. Nieves has seen and examined pt, agrees with above. Admission and Anticipated Discharge Date Admission Date: April 06, 2023 Subjective feeling better , pain better controlled but currently rating 7/10 as she is due for pain medication nausea is controlled passing a lot of gas no diarrhea since prior to ER no chest pain or shortness of breath tolerated clear liquids Physical Exam Constitutional: WD/WN, vitals as above + obese, cooperative and comfortable; no acute distress and not ill appearing Respiratory: normal respiratory effort; no respiratory distress, no labored breathing and no retractions Gastrointestinal (Abdomen): Inspection/Auscultation: abdomen normal to inspection and + hypoactive bowel sounds; abdomen not distended and + abnormal bowel sounds Percussion/Palpation: + abdomen tender (left upper and lower abdomen on mild palpation), + guarding (voluntary left abdomen on mild palpation) and abdomen soft; abdomen not rigid and abdomen not firm Skin: no rashes, warm and dry Psychiatric: A+Ox3, euthymic affect Results & Data Vital Signs (Past 12 Hours) Vital Signs Temp Pulse Pulse Resp BP Pulse Ox O2 Del Method 04/07/23 07:42 36.5 C 62 18 108/68 94 Room Air 04/07/23 05:58 70 04/07/23 03:57 36.5 C 80 18 96/63 L 92 Room Air 04/07/23 01:00 80 04/06/23 23:05 36.9 C 82 18 115/68 91 Room Air Laboratory Results 04/07/23 04/07/23 04/07/23 Range/Units 06:42 05:39 05:39 WBC (4.8-10.8) K/ul RBC (4.20-5.40) M/uL Hgb (12.0-16.0) g/dl Hct (37.0-47.0) % MCV (80.0-100.0) fL MCH (25.0-34.0) pg MCHC (32.0-36.0) g/dL RDW Std Deviation (36.4-46.3) fL RDW Coeff of [place] (11.5-14.5) % Plt Count (130-400) K/uL MPV (9.4-12.4) fL Sodium 140 (136-145) mmol/L Potassium 4.0 (3.5-5.1) mmol/L Chloride 110 H (98-107) mmol/L Carbon Dioxide 26 (21-32) mmol/L Anion Gap 4 (3-11) BUN 7 (6-23) mg/dl Creatinine 0.61 (0.6-1.2) mg/dl Est Cr Clr Drug Dosing 83.1 ml/min Est GFR ( Amer) 102.8 ml/min Est GFR (Non-Af Amer) 88.7 ml/min BUN/Creatinine Ratio 11.5 (10-20) Glucose 85 (70-99(Fasting)) mg/dl POC Glucose 103 H (70-99) mg/dl Estimat Average Glucose 117 mg/dl Hemoglobin A1c 5.7 H (4.5-5.6) % Lactate (0.4-2.0) mmol/L Calcium 8.7 (8.6-10.3) mg/dl Phosphorus 3.4 (2.5-4.9) mg/dl Magnesium 1.7 (1.7-2.4) mg/dl Urine Color Urine Appearance (Clear) Urine pH (4.5-7.5) Ur Specific [place] (1.000-1.030) Urine Protein (Negative) Urine Glucose (UA) (Negative) Urine Ketones (Negative) Urine Blood (Negative) Urine Nitrite (Negative) Urine Bilirubin (Negative) Urine Urobilinogen (Negative) Ur Leukocyte Esterase (Negative) SARS-CoV-2, RNA, NAAT (NEGATIVE) 04/07/23 04/06/23 04/06/23 Range/Units 05:39 21:16 20:56 WBC 7.50 9.16 (4.8-10.8) K/ul RBC 3.53 L 3.66 L (4.20-5.40) M/uL Hgb 11.1 L 11.7 L (12.0-16.0) g/dl Hct 33.2 L 34.1 L (37.0-47.0) % MCV 94.1 93.2 (80.0-100.0) fL MCH 31.4 32.0 (25.0-34.0) pg MCHC 33.4 34.3 (32.0-36.0) g/dL RDW Std Deviation 46.3 45.8 (36.4-46.3) fL RDW Coeff of [place] 13.6 13.5 (11.5-14.5) % Plt Count 222 182 (130-400) K/uL MPV 9.8 9.9 (9.4-12.4) fL Sodium (136-145) mmol/L Potassium (3.5-5.1) mmol/L Chloride (98-107) mmol/L Carbon Dioxide (21-32) mmol/L Anion Gap (3-11) BUN (6-23) mg/dl Creatinine (0.6-1.2) mg/dl Est Cr Clr Drug Dosing ml/min Est GFR ( Amer) ml/min Est GFR (Non-Af Amer) ml/min BUN/Creatinine Ratio (10-20) Glucose (70-99(Fasting)) mg/dl POC Glucose 102 H (70-99) mg/dl Estimat Average Glucose mg/dl Hemoglobin A1c (4.5-5.6) % Lactate (0.4-2.0) mmol/L Calcium (8.6-10.3) mg/dl Phosphorus (2.5-4.9) mg/dl Magnesium (1.7-2.4) mg/dl Urine Color Urine Appearance (Clear) Urine pH (4.5-7.5) Ur Specific [place] (1.000-1.030) Urine Protein (Negative) Urine Glucose (UA) (Negative) Urine Ketones (Negative) Urine Blood (Negative) Urine Nitrite (Negative) Urine Bilirubin (Negative) Urine Urobilinogen (Negative) Ur Leukocyte Esterase (Negative) SARS-CoV-2, RNA, NAAT (NEGATIVE) 04/06/23 04/06/23 04/06/23 Range/Units 20:30 18:48 17:19 WBC (4.8-10.8) K/ul RBC (4.20-5.40) M/uL Hgb (12.0-16.0) g/dl Hct (37.0-47.0) % MCV (80.0-100.0) fL MCH (25.0-34.0) pg MCHC (32.0-36.0) g/dL RDW Std Deviation (36.4-46.3) fL RDW Coeff of [place] (11.5-14.5) % Plt Count (130-400) K/uL MPV (9.4-12.4) fL Sodium (136-145) mmol/L Potassium (3.5-5.1) mmol/L Chloride (98-107) mmol/L Carbon Dioxide (21-32) mmol/L Anion Gap (3-11) BUN (6-23) mg/dl Creatinine (0.6-1.2) mg/dl Est Cr Clr Drug Dosing ml/min Est GFR ( Amer) ml/min Est GFR (Non-Af Amer) ml/min BUN/Creatinine Ratio (10-20) Glucose (70-99(Fasting)) mg/dl POC Glucose 84 (70-99) mg/dl Estimat Average Glucose mg/dl Hemoglobin A1c (4.5-5.6) % Lactate 0.9 (0.4-2.0) mmol/L Calcium (8.6-10.3) mg/dl Phosphorus (2.5-4.9) mg/dl Magnesium (1.7-2.4) mg/dl Urine Color Yellow Urine Appearance Clear (Clear) Urine pH 6.5 (4.5-7.5) Ur Specific [place] > 1.045 H (1.000-1.030) Urine Protein Negative (Negative) Urine Glucose (UA) Negative (Negative) Urine Ketones Trace H (Negative) Urine Blood Negative (Negative) Urine Nitrite Negative (Negative) Urine Bilirubin Negative (Negative) Urine Urobilinogen Negative (Negative) Ur Leukocyte Esterase Negative (Negative) SARS-CoV-2, RNA, NAAT (NEGATIVE) 04/06/23 Range/Units 15:15 WBC (4.8-10.8) K/ul RBC (4.20-5.40) M/uL Hgb (12.0-16.0) g/dl Hct (37.0-47.0) % MCV (80.0-100.0) fL MCH (25.0-34.0) pg MCHC (32.0-36.0) g/dL RDW Std Deviation (36.4-46.3) fL RDW Coeff of [place] (11.5-14.5) % Plt Count (130-400) K/uL MPV (9.4-12.4) fL Sodium (136-145) mmol/L Potassium (3.5-5.1) mmol/L Chloride (98-107) mmol/L Carbon Dioxide (21-32) mmol/L Anion Gap (3-11) BUN (6-23) mg/dl Creatinine (0.6-1.2) mg/dl Est Cr Clr Drug Dosing ml/min Est GFR ( Amer) ml/min Est GFR (Non-Af Amer) ml/min BUN/Creatinine Ratio (10-20) Glucose (70-99(Fasting)) mg/dl POC Glucose (70-99) mg/dl Estimat Average Glucose mg/dl Hemoglobin A1c (4.5-5.6) % Lactate (0.4-2.0) mmol/L Calcium (8.6-10.3) mg/dl Phosphorus (2.5-4.9) mg/dl Magnesium (1.7-2.4) mg/dl Urine Color Urine Appearance (Clear) Urine pH (4.5-7.5) Ur Specific [place] (1.000-1.030) Urine Protein (Negative) Urine Glucose (UA) (Negative) Urine Ketones (Negative) Urine Blood (Negative) Urine Nitrite (Negative) Urine Bilirubin (Negative) Urine Urobilinogen (Negative) Ur Leukocyte Esterase (Negative) SARS-CoV-2, RNA, NAAT NEGATIVE (NEGATIVE)
--- NOTE | 2023-04-07 12:12 | Pharmacy Report ---
Pharmacy Glycemic Sign Off Nt - Date of Service April 07, 2023 - Assessment & Plan ASSESSMENT: * Pharmacy was consulted by Ashley Dumont on 04/06 for glycemic control and to write orders per [facility] inpatient glycemic control protocol. * Major changes made by pharmacy to antidiabetic regimen include: * added novolog SSI * Patient has not required any insulin over the last 24 hours PLAN FOR INPATIENT GLYCEMIC CONTROL: No changes needed to current regimen. * No basal warranted at this time * Continue NovoLog per scale ACHS/Q6hrs while NPO * Goal range = 110-140 mg/dl * CF = 30 mg/dl/unit * CR = 1 unit for ever 15 g CHO consumed * Pharmacy is signing off of glycemic consult and will no longer be making adjustments to inpatient regimen. Please feel free to re-consult if needed. Thank you.
[2023-04-07] MEDS: SODIUM CHLORIDE 0.9% 1000ML 1,000 ML IV SCH (13:13)
--- NOTE | 2023-04-07 15:58 | Hospitalist Progress Note ---
Date of Service April 07, 2023 Assessment & Plan (1) Intractable abdominal pain: (2) Non-specific colitis: (3) History of pulmonary embolism: (4) Vomiting: (5) CAD (coronary artery disease): (6) Hyperlipidemia: (7) Diabetes mellitus, type 2: (8) Hx of Clostridium difficile infection: (9) Hypertension: (10) Depression: Plan Patient is a 73 yr old female presents with intractable persistent abdominal pain x3 weeks. 2 abdominal and pelvic CTs negative; today evidence of nonspecific colitis of the sigmoid colon. Nonspecific Colitis: + FOBT ? Intractable pain secondary to gastroparesis from Ozempic H/O C diff Infection H/O diverticulosis, hemorrhoids per patient --CT ABD:There is evidence of a nonspecific colitis of the sigmoid colon. Correlate clinically. Colonic diverticulosis without CT evidence of acute diverticulitis. Left-sided nephrolithiasis. Cardiomegaly. -- Stool studies negative for C. difficile --Stool PCR pending --Blood Cx:pending EGD/Colonoscopy as per GI Gentle IV fluids On clear liquid diet Appreciate GI, surgery input Monitor CBC while on Eliquis, aspirin Nephrolithiasis Incidental finding on CT Follow-up as outpatient H/O PE/DVT: Continue Eliquis CAD: s/p AMI 2017 Continue aspirin, statin, metoprolol DM II Hold home regimen:Metformin and Ozempic HbA1c 5.7 Continue insulin while hospitalized HTN: Continue metoprolol Metoprolol HFpEF: Resume Aldactone as able HLD: Continue Atorvastatin Depression: Continue Buspar DVT Px: Eliquis Code Status Full Code Admission and Anticipated Discharge Date Admission Date: April 06, 2023 Subjective Patient is seen and examined at bedside Less abdominal pain today when compared to study Nausea improved with medications this morning Denies any chest pain, dyspnea, dizziness, vomiting Review of Systems Review of Systems: All systems reviewed & are unremarkable except as noted in Subjective Physical Exam Physical Exam: Physical Exam: Vitals signs as noted above General Appearance:Obese, no apparent distress Head: normocephalic, Atraumatic Eyes: normal inspection, EOMI Neck: supple, Trachea midline Respiratory/Chest: Normal breath sounds, CTA, No accessory muscle use Cardiovascular: S1, S2, No murmur Abdomen/GI:Soft, LLQ, Epigastric tender, Bowel sounds present, +Guarding Extremities/Musculoskeletal:normal inspection, no edema Neurologic/Psych:AAOX3, grossly no focal neurological deficits Skin: normal color, warm Results & Data Results & Data Vital Signs (Past 12 Hours) Vital Signs Temp Pulse Pulse Resp BP Pulse Ox O2 Del Method 04/07/23 11:43 36.4 C L 73 18 132/84 93 Room Air 04/07/23 07:42 36.5 C 62 18 108/68 94 Room Air 04/07/23 05:58 70 04/07/23 03:57 36.5 C 80 18 96/63 L 92 Room Air Laboratory Results Short CBC 04/06/23 04/07/23 Range/Units 20:56 05:39 WBC 9.16 7.50 (4.8-10.8) K/ul Hgb 11.7 L 11.1 L (12.0-16.0) g/dl Hct 34.1 L 33.2 L (37.0-47.0) % Plt Count 182 222 (130-400) K/uL BMP 04/07/23 05:39 Sodium 140 Potassium 4.0 Chloride 110 H Carbon Dioxide 26 BUN 7 Creatinine 0.61 Glucose 85 Calcium 8.7 Urine 04/06/23 Range/Units 20:30 Urine Color Yellow Urine Appearance Clear (Clear) Urine pH 6.5 (4.5-7.5) Ur Specific [place] > 1.045 H (1.000-1.030) Urine Protein Negative (Negative) Urine Glucose (UA) Negative (Negative)
[2023-04-07] MEDS ORDERED: HEPARIN 100 UNIT/ML 5ML FLUSH FLUSH PRN (23:57)
[2023-04-08] MEDS: ONDANSETRON INJ 2 MG/ML 2 ML VIAL IV SCH ×4 (02:32→20:55)
[2023-04-08] MEDS: HYDROmorphone INJ 0.5 MG/0.5 ML SYR IV PRN ×5 (02:32→20:55)
[2023-04-08] MEDS: LEVOTHYROXINE SODIUM 75 MCG TABLET PO SCH (06:30)
[2023-04-08] MEDS: ACETAMINOPHEN 500 MG TAB PO SCH ×3 (06:30→20:55)
[2023-04-08 06:41] LABS: Hematocrit (blood only) 33.7 % (37.0-47.0); Hemoglobin 11.6 g/dl (12.0-16.0)
[2023-04-08 07:00] LABS: Calcium 8.7 mg/dl (8.6-10.3); Creatinine Clr Calc Pharmacy 89.9 ml/min; Est GFR (African American) 105.1 ml/min; Est GFR (Non-African American) 90.7 ml/min; Potassium 3.7 mmol/L (3.5-5.1)
[2023-04-08] MEDS: METOPROLOL SUCC 50MG EXT REL TAB PO SCH (07:33)
[2023-04-08] MEDS: busPIRone 5 MG TAB PO SCH ×2 (07:33→20:54)
[2023-04-08] MEDS: APIXABAN 5 MG TABLET PO SCH ×2 (07:33→20:54)
[2023-04-08] MEDS: ASPIRIN 81 MG ECTAB PO SCH (07:33)
[2023-04-08] MEDS: ATORVASTATIN 40 MG TAB PO SCH (07:33)
[2023-04-08] MEDS: INSULIN ASPART PER UNIT CHARGE SC SCH ×4 (08:35→20:46)
--- NOTE | 2023-04-08 10:21 | Surgery Progress Note ---
Date of Service April 08, 2023 Assessment & Plan (1) Non-specific colitis: (2) Intractable abdominal pain: Plan: persistent 8/10 pain without pain medication requiring IV dilaudid q 4 hrs ? low pain tolerance hemodynamically stable and HR wnl, would expect elevated given amount of pain (3) Vomiting: Plan: resolved (4) Hx of Clostridium difficile infection: Plan: c. diff negative Plan Will obtain KUB to eval given persistent pain and guarding on exam await GI eval today Continue conservative management, no surgical indication at this time Dr. Nieves has seen and examined pt, agrees with above. Admission and Anticipated Discharge Date Admission Date: April 06, 2023 Subjective pain about the same, not worse. still 8/10 without pain medication, requiring IV dilaudid q 4 hours looks comfortable when entering room tolerating clear liquids, asking for something more passing gas,small smear of liquid stool yesterday nausea controlled, no vomiting Physical Exam Constitutional: WD/WN, vitals as above cooperative and comfortable; no acute distress and not ill appearing Gastrointestinal (Abdomen): Inspection/Auscultation: abdomen normal to inspection and + abdominal surgical scar (lower transverse scar); abdomen not distended Percussion/Palpation: + abdomen tender (LLQ and left mid abdomen on very mild palpation), + guarding (voluntary guarding LLQ and left mid abdomen on mild palpation) and abdomen soft; abdomen not rigid and abdomen not firm Skin: no rashes, warm and dry no jaundice and no ecchymosis Psychiatric: Orientation: alert and oriented x 3 Results & Data Vital Signs (Past 12 Hours) Vital Signs Temp Pulse Pulse Resp BP Pulse Ox O2 Del Method 04/08/23 08:10 85 04/08/23 07:00 36.7 C 65 18 131/81 95 Room Air 04/08/23 03:39 36.4 C L 63 18 168/94 H 93 Room Air 04/07/23 23:37 Room Air 04/07/23 22:48 36.4 C L 74 20 148/88 H 95 Room Air Laboratory Results 04/08/23 04/08/23 04/08/23 Range/Units 07:21 05:31 05:31 Hgb 11.6 L (12.0-16.0) g/dl Hct 33.7 L (37.0-47.0) % Sodium 141 (136-145) mmol/L Potassium 3.7 (3.5-5.1) mmol/L Chloride 110 H (98-107) mmol/L Carbon Dioxide 25 (21-32) mmol/L Anion Gap 6 (3-11) BUN 4 L (6-23) mg/dl Creatinine 0.57 L (0.6-1.2) mg/dl Est Cr Clr Drug Dosing 89.9 ml/min Est GFR ( Amer) 105.1 ml/min Est GFR (Non-Af Amer) 90.7 ml/min BUN/Creatinine Ratio 7.0 L (10-20) Glucose 78 (70-99(Fasting)) mg/dl POC Glucose 94 (70-99) mg/dl Calcium 8.7 (8.6-10.3) mg/dl Stool Occult Bld Scrn (Negative) Stl C. cayetanensis PCR Stool Rotavirus A PCR Stl Adenov F 40/41 PCR Stool Astrovirus (PCR) Stool Campylobacter PCR Stl C. diff Tox B Gene (Neg) Stool Cryptosporidium PCR Stl E.coli Shiga Tox PCR Stool E coli O157 PCR Stl Enterotoxigenic E PCR Stool EPEC (PCR) Stool EAEC (PCR) Stl E. histolytica PCR Stool Giardia Lamblia PCR Stool Salmonella PCR Stool Sapovirus (PCR) Stl P. shigelloides PCR Stl Shigella/EIEC PCR St Y.enterocolitica PCR Stool Vibrio (PCR) Stl Vibrio cholerae PCR Stl Norovirus GI/GII PCR 04/07/23 04/07/23 04/07/23 Range/Units 21:15 16:50 13:55 Hgb (12.0-16.0) g/dl Hct (37.0-47.0) % Sodium (136-145) mmol/L Potassium (3.5-5.1) mmol/L Chloride (98-107) mmol/L Carbon Dioxide (21-32) mmol/L Anion Gap (3-11) BUN (6-23) mg/dl Creatinine (0.6-1.2) mg/dl Est Cr Clr Drug Dosing ml/min Est GFR ( Amer) ml/min Est GFR (Non-Af Amer) ml/min BUN/Creatinine Ratio (10-20) Glucose (70-99(Fasting)) mg/dl POC Glucose 137 H 116 H (70-99) mg/dl Calcium (8.6-10.3) mg/dl Stool Occult Bld Scrn Positive A (Negative) Stl C. cay[place]anensis PCR Stool Rotavirus A PCR Stl Adenov F 40 PCR Stool Astrovirus (PCR) Stool Campylobacter PCR Stl C. diff Tox B Gene (Neg) Stool Cryptosporidium PCR Stl E.coli Shiga Tox PCR Stool E coli O157 PCR Stl Enterotoxigenic E PCR Stool EPEC (PCR) Stool EAEC (PCR) Stl E. histolytica PCR Stool Giardia Lamblia PCR Stool Salmonella PCR Stool Sapovirus (PCR) Stl P. shigelloides PCR Stl Shigella/EIEC PCR St Y.enterocolitica PCR Stool Vibrio (PCR) Stl Vibrio cholerae PCR Stl Norovirus GI/GII PCR 04/07/23 04/07/23 04/07/23 Range/Units 13:55 13:55 11:56 Hgb (12.0-16.0) g/dl Hct (37.0-47.0) % Sodium (136-145) mmol/L Potassium (3.5-5.1) mmol/L Chloride (98-107) mmol/L Carbon Dioxide (21-32) mmol/L Anion Gap (3-11) BUN (6-23) mg/dl Creatinine (0.6-1.2) mg/dl Est Cr Clr Drug Dosing ml/min Est GFR ( Amer) ml/min Est GFR (Non-Af Amer) ml/min BUN/Creatinine Ratio (10-20) Glucose (70-99(Fasting)) mg/dl POC Glucose 110 H (70-99) mg/dl Calcium (8.6-10.3) mg/dl Stool Occult Bld Scrn (Negative) Stl C. cayetanensis PCR Cancelled Stool Rotavirus A PCR Cancelled Stl Adenov F PCR Cancelled Stool Astrovirus (PCR) Cancelled Stool Campylobacter PCR Cancelled Stl C. diff Tox B Gene Negative Cdiff Gene (Neg) Stool Cryptosporidium PCR Cancelled Stl E.coli Shiga Tox PCR Cancelled Stool E coli O157 PCR Cancelled Stl Enterotoxigenic E PCR Cancelled Stool EPEC (PCR) Cancelled Stool EAEC (PCR) Cancelled Stl E. histolytica PCR Cancelled Stool Giardia Lamblia PCR Cancelled Stool Salmonella PCR Cancelled Stool Sapovirus (PCR) Cancelled Stl P. shigelloides PCR Cancelled Stl Shigella/EIEC PCR Cancelled St Y.enterocolitica PCR Cancelled Stool Vibrio (PCR) Cancelled Stl Vibrio cholerae PCR Cancelled Stl Norovirus GI/GII PCR Cancelled
--- NOTE | 2023-04-08 10:43 | Gastroenterology Progress Note ---
Date of Service April 08, 2023 Assessment & Plan (1) Non-specific colitis: Plan: -Await stool studies -Timing of endoscopic work-up TBD -Unfortunately, patient has had multiple CT scans of the abdomen and none of them were enhanced with oral contrast. If symptoms persist, consider repeat with oral contrast. Admission and Anticipated Discharge Date Admission Date: April 06, 2023 Supervising Physician Co-Signing Physician Notes Agree with GERBER Padgett as above Abd: Soft, NT, ND, +BS Stool PCR pending No plans for inpatient endoscopic workup Subjective Patient is a 73 yo female with abdominal pain. She notes 7/10 pain. Her HR is within normal limits and BP is appropriate. Abdominal exam is benign. CT abdomen/pelvis suggested a nonspecific sigmoid colitis. We are awaiting results of her stool studies as she notes intermittent severe diarrhea. She has an outpatient scheduled EGD & colonoscopy on 04/13/23. Review of Systems Constitutional: no fever and no chills Cardiovascular: no chest pain Gastrointestinal: + abdominal pain and + change in bowel habits Physical Exam Constitutional: well developed Respiratory: normal respiratory effort Cardiovascular: Rate/Rhythm: regular rate Gastrointestinal (Abdomen): normal bowel sounds, soft, nontender, no hepatosplenomegaly Musculoskeletal: Head/Neck/Chest: normocephalic Psychiatric: Orientation: alert and oriented x 3 Results & Data Results & Data Vital Signs (Past 12 Hours) Vital Signs Temp Pulse Pulse Resp BP Pulse Ox O2 Del Method 04/08/23 08:10 85 04/08/23 07:00 36.7 C 65 18 131/81 95 Room Air 04/08/23 03:39 36.4 C L 63 18 168/94 H 93 Room Air 04/07/23 23:37 Room Air 04/07/23 22:48 36.4 C L 74 20 148/88 H 95 Room Air PG Care Time/CCT Total # of Minutes Spent Total Time Spent with Patient: Total time spent is greater than 50% in coordination of care (as documented) at patient's floor/unit and/or counseling patient: Coding Level of Care Code 79758 SUB INP/OBS CARE 3/50MIN Diagnoses Non-specific colitis K52.9
--- NOTE | 2023-04-08 11:46 | XRay Report ---
KUB CLINICAL HISTORY: Colitis, severe intractable pain, guarding on exam COMPARISON STUDY: CT of the abdomen and pelvis April 06, 2023. FINDINGS: Incidental note is made of bilateral SI joint fusion. There is lumbar spine levoscoliosis. Postoperative findings within lumbar spine are present. There is no evidence for a bowel obstruction. Prominent gas-filled loop of bowel within the left mid abdomen likely reflects gas within the colon. No evidence for free air on supine exam. IMPRESSION: 1. No radiographic evidence for a bowel obstruction. 2. Prominent gas-filled loop of bowel within the left mid abdomen which likely reflects gas within th e colon. ACT 112: Negative or not required by law. Electronically signed by: Gonsalo Villafana M.D. 04/08/2023 11:45 AM
--- NOTE | 2023-04-08 15:38 | Hospitalist Progress Note ---
Date of Service April 08, 2023 Assessment & Plan (1) Intractable abdominal pain: (2) Non-specific colitis: (3) History of pulmonary embolism: (4) Vomiting: (5) CAD (coronary artery disease): (6) Hyperlipidemia: (7) Diabetes mellitus, type 2: (8) Hx of Clostridium difficile infection: (9) Hypertension: (10) Depression: Plan Patient is a 73 yr old female presents with intractable persistent abdominal pain x3 weeks. 2 abdominal and pelvic CTs negative; today evidence of nonspecific colitis of the sigmoid colon. Nonspecific Colitis: + FOBT ? Intractable pain secondary to gastroparesis from Ozempic H/O C diff Infection H/O diverticulosis, hemorrhoids per patient --CT ABD:There is evidence of a nonspecific colitis of the sigmoid colon. Correlate clinically. Colonic diverticulosis without CT evidence of acute diverticulitis. Left-sided nephrolithiasis. Cardiomegaly. -- Stool studies negative for C. difficile --Stool PCR pending --Blood Cx: Negative to date EGD/Colonoscopy as per GI Gentle IV fluids Continue liquid diet Appreciate GI, surgery input Monitor CBC while on Eliquis, aspirin KUB today shows no signs of obstruction May need to repeat CT with oral contrast if no improvement with current management Nephrolithiasis Incidental finding on CT Follow-up as outpatient H/O PE/DVT: Continue Eliquis CAD: s/p AMI 2016 Continue aspirin, statin, metoprolol DM II Hold home regimen:Metformin and Ozempic HbA1c 5.7 Continue insulin while hospitalized HTN: Continue metoprolol Metoprolol HFpEF: Resume Aldactone as able HLD: Continue Atorvastatin Depression: Continue Buspar DVT Px: Eliquis Code Status Full Code Admission and Anticipated Discharge Date Admission Date: April 06, 2023 Subjective Patient is seen and examined at bedside Continues to complain of abdominal pain associated with nausea Had 2 small loose bowel movements today Discussed with surgery today Tolerating current diet Denies any chest pain, dyspnea, dizziness Review of Systems Review of Systems: All systems reviewed & are unremarkable except as noted in Subjective Physical Exam Physical Exam: Physical Exam: Vitals signs as noted above General Appearance:Obese, no apparent distress Head: normocephalic, Atraumatic Eyes: normal inspection, EOMI Neck: supple, Trachea midline Respiratory/Chest: Normal breath sounds, CTA, No accessory muscle use Cardiovascular: S1, S2, No murmur Abdomen/GI:Soft, generalized tenderness, Bowel sounds present, +Guarding Extremities/Musculoskeletal:normal inspection, no edema Neurologic/Psych:AAOX3, grossly no focal neurological deficits Skin: normal color, warm Results & Data Results & Data Vital Signs (Past 12 Hours) Vital Signs Temp Pulse Pulse Resp BP Pulse Ox O2 Del Method 04/08/23 11:00 36.7 C 78 18 135/82 94 Room Air 04/08/23 08:10 85 04/08/23 07:00 36.7 C 65 18 131/81 95 Room Air 04/08/23 03:39 36.4 C L 63 18 168/94 H 93 Room Air Laboratory Results Short CBC 04/08/23 Range/Units 05:31 Hgb 11.6 L (12.0-16.0) g/dl Hct 33.7 L (37.0-47.0) % BMP 04/08/23 05:31 Sodium 141 Potassium 3.7 Chloride 110 H Carbon Dioxide 25 BUN 4 L Creatinine 0.57 L Glucose 78 Calcium 8.7
[2023-04-09] MEDS: HYDROmorphone INJ 0.5 MG/0.5 ML SYR IV PRN ×2 (01:31→05:48)
[2023-04-09] MEDS: ONDANSETRON INJ 2 MG/ML 2 ML VIAL IV SCH ×4 (02:47→21:12)
[2023-04-09] MEDS: ACETAMINOPHEN 500 MG TAB PO SCH ×3 (05:48→22:03)
[2023-04-09] MEDS: LEVOTHYROXINE SODIUM 75 MCG TABLET PO SCH (05:48)
[2023-04-09 06:58] LABS: BUN Creatinine Ratio 6.3 (10-20); Calcium 9.1 mg/dl (8.6-10.3); Creatinine Clr Calc Pharmacy 80.3 ml/min; Est GFR (African American) 101.2 ml/min; Est GFR (Non-African American) 87.3 ml/min; Magnesium 1.7 mg/dl (1.7-2.4); Potassium 3.9 mmol/L (3.5-5.1)
[2023-04-09 07:15] LABS: Hematocrit (blood only) 36.7 % (37.0-47.0); Hemoglobin 12.7 g/dl (12.0-16.0)
[2023-04-09] MEDS: INSULIN ASPART PER UNIT CHARGE SC SCH ×4 (08:48→20:28)
[2023-04-09] MEDS: APIXABAN 5 MG TABLET PO SCH ×2 (08:49→21:13)
[2023-04-09] MEDS: busPIRone 5 MG TAB PO SCH ×2 (08:49→21:13)
[2023-04-09] MEDS: METOPROLOL SUCC 50MG EXT REL TAB PO SCH (08:49)
[2023-04-09] MEDS: ATORVASTATIN 40 MG TAB PO SCH (08:49)
[2023-04-09] MEDS: ASPIRIN 81 MG ECTAB PO SCH (08:50)
[2023-04-09] MEDS ORDERED: HYDROmorphone INJ 0.5 MG/0.5 ML SYR IV PRN (09:38)
--- NOTE | 2023-04-09 09:42 | Surgery Progress Note ---
Date of Service April 09, 2023 Assessment & Plan (1) Non-specific colitis: (2) Intractable abdominal pain: Plan: persistent 8/10 pain without pain medication, slowly improving requiring IV dilaudid q 4 hrs ? low pain tolerance hemodynamically stable and HR wnl, would expect elevated given amount of pain KUB yesteday showing no obstruction, gas within loop of colon on left side (3) Vomiting: Plan: resolved (4) Hx of Clostridium difficile infection: Plan: c. diff negative Plan continue full liquids IV dilaudid q 6 hours, po Percocet also ordered, advised patient to try oral pain meds and decrease frequency of narcotic use highly encouraged oob to chair and ambulate as much as possible Continue conservative management, no surgical indication at this time Discussed with Dr. esposito who agrees with above. 04/09/2023 11:33AM Dr. Esposito I saw pt. pt feels better. pt wants to have regular foods, soft diet ok. may discharge tomorrow, if pt tolerated diet. Admission and Anticipated Discharge Date Admission Date: April 06, 2023 Supervising Physician Co-Signing Physician Notes Agree with GERBER Padgett as above Abd: Soft, NT, ND, +BS Stool PCR pending No plans for inpatient endoscopic workup Subjective feeling pain is slightly better but still taking IV dilaudid every 4 hours nausea better controlled, still requiring some Zofran had 3-4 liquid bowel movements yesterday, still passing gas tolerating full liquids ambulated hallway yesterday Physical Exam Constitutional: WD/WN, vitals as above + obese, cooperative and comfortable; no acute distress and not ill appearing Respiratory: normal respiratory effort Gastrointestinal (Abdomen): Inspection/Auscultation: abdomen normal to inspection and normal bowel sounds; abdomen not distended Percussion/Palpation: + abdomen tender (Left lower abdomen and left mid abdomen, mildly improved), + guarding (LLQ and left mid abdomen) and abdomen soft; abdomen not rigid and abdomen not firm Skin: no rashes, warm and dry Psychiatric: Orientation: alert and oriented x 3 Results & Data Vital Signs (Past 12 Hours) Vital Signs Temp Pulse Pulse Resp BP BP Pulse Ox 04/09/23 09:13 60 04/09/23 07:35 36.4 C L 65 18 161/83 H 96 04/09/23 03:23 36.7 C 66 18 151/88 H 95 04/08/23 22:36 36.6 C 63 18 146/85 H 95 04/08/23 22:33 65 04/08/23 21:52 O2 Del Method 04/09/23 09:13 04/09/23 07:35 Room Air 04/09/23 03:23 Room Air 04/08/23 22:36 Room Air 04/08/23 22:33 04/08/23 21:52 Room Air Laboratory Results 04/09/23 04/09/23 04/09/23 Range/Units 07:33 05:43 05:43 Hgb 12.7 (12.0-16.0) g/dl Hct 36.7 L (37.0-47.0) % Sodium 139 (136-145) mmol/L Potassium 3.9 (3.5-5.1) mmol/L Chloride 106 (98-107) mmol/L Carbon Dioxide 26 (21-32) mmol/L Anion Gap 7 (3-11) BUN 4 L (6-23) mg/dl Creatinine 0.64 (0.6-1.2) mg/dl Est Cr Clr Drug Dosing 80.3 ml/min Est GFR ( Amer) 101.2 ml/min Est GFR (Non-Af Amer) 87.3 ml/min BUN/Creatinine Ratio 6.3 L (10-20) Glucose 77 (70-99(Fasting)) mg/dl POC Glucose 100 H (70-99) mg/dl Calcium 9.1 (8.6-10.3) mg/dl Magnesium 1.7 (1.7-2.4) mg/dl 04/08/23 04/08/23 04/08/23 Range/Units 20:29 16:29 11:44 Hgb (12.0-16.0) g/dl Hct (37.0-47.0) % Sodium (136-145) mmol/L Potassium (3.5-5.1) mmol/L Chloride (98-107) mmol/L Carbon Dioxide (21-32) mmol/L Anion Gap (3-11) BUN (6-23) mg/dl Creatinine (0.6-1.2) mg/dl Est Cr Clr Drug Dosing ml/min Est GFR ( Amer) ml/min Est GFR (Non-Af Amer) ml/min BUN/Creatinine Ratio (10-20) Glucose (70-99(Fasting)) mg/dl POC Glucose 87 99 103 H (70-99) mg/dl Calcium (8.6-10.3) mg/dl Magnesium (1.7-2.4) mg/dl Diagnostic Findings KUB 04/08/2023 CLINICAL HISTORY: Colitis, severe intractable pain, guarding on exam COMPARISON STUDY: CT of the abdomen and pelvis April 06, 2023. FINDINGS: Incidental note is made of bilateral SI joint fusion. There is lumbar spine levoscoliosis. Postoperative findings within lumbar spine are present. There is no evidence for a bowel obstruction. Prominent gas-filled loop of bowel within the left mid abdomen likely reflects gas within the colon. No evidence for free air on supine exam. IMPRESSION: 1. No radiographic evidence for a bowel obstruction. 2. Prominent gas-filled loop of bowel within the left mid abdomen which likely reflects gas within the colon.
--- NOTE | 2023-04-09 10:26 | Communication Note ---
Date of Service: April 09, [address] Lechuga. Patient's symptoms continue to the same degree they were during her outpatient evaluation when outpatient testing was planned. KUB from yesterday was not alarming. Would proceed with outpatient EGD & colonoscopy as planned for 04/13/23.
[2023-04-09 15:26] LABS: Adenovirus F 40/41 PCR Not Detected (NotDetected); Astrovirus PCR Not Detected (NotDetected); Campylobacter PCR Not Detected (NotDetected); Cryptosporidium PCR Not Detected (NotDetected); Cyclospora cayetanensis PCR Not Detected (NotDetected); Entamoeba histolytica PCR Not Detected (NotDetected); Enteroaggregative E.coli(EAEC) Not Detected (NotDetected); Enteropathogenic E.coli (EPEC) Not Detected (NotDetected); Enterotoxigenic E.coli (ETEC) Not Detected (NotDetected); Giardia lamblia PCR Not Detected (NotDetected); Norovirus GI/GII PCR Not Detected (NotDetected); Plesiomonas shigelloides PCR Not Detected (NotDetected); Rotavirus A PCR Not Detected (NotDetected); Salmonella PCR Not Detected (NotDetected); Sapovirus PCR Not Detected (NotDetected); Shiga-like Toxin E.coli (STEC) Not Detected (NotDetected); Shigella/Enteroinvasive E.coli Not Detected (NotDetected); Vibrio cholerae PCR Not Detected (NotDetected); Vibrio species PCR Not Detected (NotDetected); Yersinia enterocolitica PCR Not Detected (NotDetected)
[2023-04-09] MEDS: oxyCODONE/ACETAMINOPHEN 5mg/325mg TAB PO PRN ×2 (15:27→21:11)
--- NOTE | 2023-04-09 15:43 | Hospitalist Progress Note ---
Date of Service April 09, 2023 Assessment & Plan (1) Intractable abdominal pain: (2) Non-specific colitis: (3) History of pulmonary embolism: (4) Vomiting: (5) CAD (coronary artery disease): (6) Hyperlipidemia: (7) Diabetes mellitus, type 2: (8) Hx of Clostridium difficile infection: (9) Hypertension: (10) Depression: Plan Patient is a 73 yr old female presents with intractable persistent abdominal pain x3 weeks. 2 abdominal and pelvic CTs negative; today evidence of nonspecific colitis of the sigmoid colon. Nonspecific Colitis: + FOBT ? Intractable pain secondary to gastroparesis from Ozempic H/O C diff Infection H/O diverticulosis, hemorrhoids per patient --CT ABD:There is evidence of a nonspecific colitis of the sigmoid colon. Correlate clinically. Colonic diverticulosis without CT evidence of acute diverticulitis. Left-sided nephrolithiasis. Cardiomegaly. -- Stool studies negative for C. difficile --Stool PCR negative --Blood Cx: Negative to date EGD/Colonoscopy as per GI Received IV fluids Advance to regular diet today Appreciate GI, surgery input Monitor CBC while on Eliquis, aspirin: Hb stable KUB on 04/08 shows no signs of obstruction Wean off of IV narcotics as able GI recommends EGD, colonoscopy as outpatient which were scheduled on 04/13/2023 Needs follow-up with GI upon discharge Nephrolithiasis Incidental finding on CT Follow-up as outpatient H/O PE/DVT: Continue Eliquis CAD: s/p AMI 2017 Continue aspirin, statin, metoprolol DM II Hold home regimen:Metformin and Ozempic HbA1c 5.7 Continue insulin while hospitalized HTN: Continue metoprolol Metoprolol HFpEF: Resume Aldactone as able HLD: Continue Atorvastatin Depression: Continue Buspar DVT Px: Eliquis Code Status Full Code Admission and Anticipated Discharge Date Admission Date: April 06, 2023 Subjective Patient is seen and examined at bedside States feeling better today No nausea, vomiting today Tolerating current diet States having diarrhea Abdominal pain better today Discussed with GI today Denies any chest pain, dyspnea, dizziness Review of Systems Review of Systems: All systems reviewed & are unremarkable except as noted in Subjective Physical Exam Physical Exam: Physical Exam: Vitals signs as noted above General Appearance:Obese, no apparent distress Head: normocephalic, Atraumatic Eyes: normal inspection, EOMI Neck: supple, Trachea midline Respiratory/Chest: Normal breath sounds, CTA, No accessory muscle use Cardiovascular: S1, S2, No murmur Abdomen/GI:Soft, generalized tenderness, Bowel sounds present, + voluntary guarding Extremities/Musculoskeletal:normal inspection, no edema Neurologic/Psych:AAOX3, grossly no focal neurological deficits Skin: normal color, warm Results & Data Results & Data Vital Signs (Past 12 Hours) Vital Signs Temp Pulse Pulse Resp BP Pulse Ox O2 Del Method 04/09/23 11:36 37.0 C 68 18 136/72 94 Room Air 04/09/23 09:13 60 04/09/23 07:35 36.4 C L 65 18 161/83 H 96 Room Air Laboratory Results Short CBC 04/09/23 Range/Units 05:43 Hgb 12.7 (12.0-16.0) g/dl Hct 36.7 L (37.0-47.0) % BMP 04/09/23 05:43 Sodium 139 Potassium 3.9 Chloride 106 Carbon Dioxide 26 BUN 4 L Creatinine 0.64 Glucose 77 Calcium 9.1
[2023-04-09] MEDS ORDERED: HYDROmorphone INJ 1 MG/ML SYRINGE IV ONE (17:26)
[2023-04-10] MEDS ORDERED: HYDROmorphone INJ 0.5 MG/0.5 ML SYR IV STA ×2 (02:08→14:02)
[2023-04-10] MEDS: ONDANSETRON INJ 2 MG/ML 2 ML VIAL IV SCH ×4 (02:15→20:43)
[2023-04-10] MEDS: oxyCODONE/ACETAMINOPHEN 5mg/325mg TAB PO PRN ×3 (03:18→14:02)
[2023-04-10] MEDS: LEVOTHYROXINE SODIUM 75 MCG TABLET PO SCH (05:35)
[2023-04-10] MEDS: ACETAMINOPHEN 500 MG TAB PO SCH ×3 (05:37→21:36)
[2023-04-10 06:26] LABS: Hematocrit (blood only) 37.7 % (37.0-47.0); Hemoglobin 13.1 g/dl (12.0-16.0); Mean Corpuscular Hemoglobin 31.9 pg (25.0-34.0); Mean Corpuscular Hgb Conc 34.7 g/dL (32.0-36.0); Mean Corpuscular Volume 91.7 fL (80.0-100.0); Mean Platelet Volume 9.7 fL (9.4-12.4); Platelet Count 273 K/uL (130-400); RDW Coefficient of Variation 13.2 % (11.5-14.5); RDW Standard Deviation 44.6 fL (36.4-46.3); Red Blood Count 4.11 M/uL (4.20-5.40); White Blood Count 7.43 K/ul (4.8-10.8)
[2023-04-10 06:55] LABS: BUN Creatinine Ratio 10.3 (10-20); Calcium 8.6 mg/dl (8.6-10.3); Creatinine Clr Calc Pharmacy 65.9 ml/min; Est GFR (African American) 86.2 ml/min; Est GFR (Non-African American) 74.4 ml/min; Magnesium 1.7 mg/dl (1.7-2.4); Potassium 3.8 mmol/L (3.5-5.1)
[2023-04-10] MEDS: APIXABAN 5 MG TABLET PO SCH ×2 (08:15→21:35)
[2023-04-10] MEDS: busPIRone 5 MG TAB PO SCH ×2 (08:15→21:34)
[2023-04-10] MEDS: ASPIRIN 81 MG ECTAB PO SCH (08:15)
[2023-04-10] MEDS: METOPROLOL SUCC 50MG EXT REL TAB PO SCH (08:15)
[2023-04-10] MEDS: ATORVASTATIN 40 MG TAB PO SCH (08:16)
[2023-04-10] MEDS: INSULIN ASPART PER UNIT CHARGE SC SCH ×4 (08:47→20:43)
--- NOTE | 2023-04-10 09:05 | Hospitalist Progress Note ---
Date of Service April 10, 2023 Assessment & Plan (1) Intractable abdominal pain: (2) Non-specific colitis: (3) History of pulmonary embolism: (4) CAD (coronary artery disease): (5) Hyperlipidemia: (6) Diabetes mellitus, type 2: (7) Hx of Clostridium difficile infection: (8) Hypertension: (9) Anxiety: Plan Patient is a 73 yr old female presents with intractable persistent abdominal pain x3 weeks. 2 abdominal and pelvic CTs negative; CT on admission with nonspecific colitis of the sigmoid colon. Colitis: + FOBT but no significant blood per rectum this admission and H/H normal at 13.1/37.7 Ozempic considered as a contributing factor to pain via gastroparesis, however, patient denies any side effects and is taking full strength Ozempic. She is tolerating food and her main complaint although there is nausea, is the severe pain. --CT ABD:There is evidence of a nonspecific colitis of the sigmoid colon. Correlate clinically. Colonic diverticulosis without CT evidence of acute diverticulitis. Left-sided nephrolithiasis. Cardiomegaly. -- Stool studies negative for C. difficile --Stool PCR negative --Blood Cx: Negative to date EGD/Colonoscopy as per GI as outpatient which was previously planned. Received IV fluids which seemed to help as she described vomiting and diarrhea prior to arrival-->colitis was felt to be ischemic in nature. Given the h/o c diff and nontoxic appearance without leukocytosis, held off on antibiotics initially. She is now tolerating solid food reliably but still reports persistent severe pain requiring IV narcotics. SHe does have a h/o opioid misuse and at one point was found in her neighborhood walking around confused; medical history also reveals h/o being found with a fentanyl patch in her mouth. So giving IV narcotics should be done with caution. I do believe she is having pain and her distribution of pain is the same as a few days ago. Will cont with APAP and narcotics as needed for pain, start IV hydration again, and will start an empiric trial of Cipro and Flagyl Surgery has signed off. Given she sees [facility] as outpatient, appreciate ongoing thoughts on her colitis picture with consideration for repeat imaging as needed. H/O PE/DVT: Continue Eliquis CAD: chronic, stable. s/p AMI 2017 Continue aspirin, statin, metoprolol DM II Hold home regimen:Metformin and Ozempic HbA1c 5.7 Continue insulin while hospitalized HTN: Continue metoprolol Metoprolol HFpEF: euvolemic. Resume Furosemide, Aldactone as able. Hold for now while rehydrating with IVF. HLD: chronic, stable. Continue Atorvastatin Anxiety (patient denies depression): Continue Buspar h/o chronic VTE: Cont Eliquis per home regimen. DVT proph: apixaban Code Status: Full Code Dispo-home pending improvement in her pain. Nanda Manning DO [facility] Hospitalist Admission and Anticipated Discharge Date Admission Date: April 06, 2023 Subjective 73 yo F with approximately 1 month of acute left lower abdominal pain today she is in a position and is writing in pain in the bed she reports no worsening of pain with food and states that she is eating since yesterday she does have ongoing nausea and has been consistently relying on antiemetics She reports "the only thing that helps me is the IV narcotic" She denies any constipation and states the ozempic has not caused a problem of constipation for her specifically She reports blood per rectum as outpatient prior to arrival but no further bleeding at this time Some loose stools reported States the IVF she was given on admission was helpful for her pain She declines Ibuprofen because "it messes my stomach up" so does Celebrex She reports stopping duloxetine and Latuda which she was previously on because "I don't have depression anymore" She does continue on the Buspar twice daily and reports that her mental health provider is supportive of this care plan Review of Systems Review of Systems: All systems were reviewed and negative except as indicated on HPI above. Physical Exam Physical Exam: CONSTITUTIONAL: WNWD, vitals as above, generally appears uncomfortable. EYES: normal conjunctivae, no scleral icterus ENT: external ear and nose normal, MMM NECK: trachea midline RESPIRATORY: clear to auscultation bilaterally, no crackles, rales or wheezes, normal respiratory effort CARDIOVASCULAR: regular rate and rhythm, S1 and 2 heard without murmurs, gallops or rubs, no JVD, no peripheral edema CHEST: inspection of chest was normal GASTROINTESTINAL: soft, TTP in left abdomen>suprapubic>epigastric region, nondistended, +voluntary guarding. MUSCULOSKELETAL: strength 5/5 throughout, head is normocephalic and atraumatic SKIN: warm and dry NEUROLOGIC: CN 2-12 grossly intact, no sensory deficit, normal cognition, normal speech, no tremor PSYCHIATRIC: alert cooperative and oriented to person, place and time. Euthymic mood, makes good eye contact, language grossly intact, recent and remote memory grossly intact. Results & Data Results & Data Vital Signs (Past 12 Hours) Vital Signs Temp Pulse Pulse Resp BP BP Pulse Ox 04/10/23 07:53 36.8 C 76 18 154/80 H 96 04/10/23 03:40 36.7 C 71 18 149/85 H 92 04/09/23 22:54 36.5 C 67 18 131/77 94 04/09/23 23:18 65 O2 Del Method 04/10/23 07:53 Room Air 04/10/23 03:40 Room Air 04/09/23 22:54 Room Air 04/09/23 23:18 Laboratory Results Short CBC 04/10/23 Range/Units 05:29 WBC 7.43 (4.8-10.8) K/ul Hgb 13.1 (12.0-16.0) g/dl Hct 37.7 (37.0-47.0) % Plt Count 273 (130-400) K/uL BMP 04/10/23 05:29 Sodium 139 Potassium 3.8 Chloride 106 Carbon Dioxide 27 BUN 8 Creatinine 0.78 Glucose 93 Calcium 8.6 Medications Administered Current Inpatient Medications Acetaminophen (Acetaminophen 500 Mg Tab) 1,000 mg PO Q8 [facility] Stop: 05/06/23 20:14 Last Admin: 04/10/23 05:37 Dose: Not Given Al Hydrox/Mg Hydrox/Simethicone (Aluminum/Magnesium Susp 30 Ml Udc) 15 ml PO Q4H PRN PRN Reason: Dyspepsia Stop: 05/06/23 15:14 Apixaban (Apixaban 5 Mg Tablet) 5 mg PO BID [facility] Stop: 05/06/23 20:59 Last Admin: 04/10/23 08:15 Dose: 5 mg Aspirin (Aspirin 81 Mg Ectab) 81 mg PO QAM [facility] Stop: 05/07/23 08:59 Last Admin: 04/10/23 08:15 Dose: 81 mg Atorvastatin Calcium (Atorvastatin 40 Mg Tab) 40 mg PO QAM [facility] Stop: 05/07/23 08:59 Last Admin: 04/10/23 08:16 Dose: 40 mg Buspirone HCl (Buspirone 5 Mg Tab) 10 mg PO BID [facility] Stop: 05/06/23 20:59 Last Admin: 04/10/23 08:15 Dose: 10 mg Dextrose (Dextrose 50% 50 Ml Syringe) 25 - 50 ml IV UD PRN; Protocol PRN Reason: Hypoglycemia Protocol Stop: 05/06/23 17:24 Furosemide (Furosemide 40 Mg Tab) 40 mg PO QAM [facility] Stop: 05/07/23 08:59 Glucagon (Glucagon For Inj 1 Mg Vial) 1 mg SQ UD PRN; Protocol PRN Reason: Hypoglycemia Protocol Stop: 05/06/23 17:24 Glucose (Glucose 10 Tab/Tube) 4 - 8 tab PO UD PRN; Protocol PRN Reason: Hypoglycemia Treatment Stop: 05/06/23 17:24 Glucose (Glucose 40% Gel 15 Gm Tube) 15 - 30 gm PO UD PRN; Protocol PRN Reason: Hypoglycemia Protocol Stop: 05/06/23 17:24 Heparin Sodium (Porcine) (Heparin 100 Unit/Ml 5ml Flush) 5 ml FLUSH PRN PRN PRN Reason: Flush Stop: 05/07/23 23:56 Insulin Aspart (Insulin Aspart Per Unit Charge) 0 units SC ACHS [facility] Stop: 05/07/23 11:29 Last Admin: 04/10/23 08:47 Dose: 3 units Levothyroxine Sodium (Levothyroxine Sodium 75 Mcg Tablet) 75 mcg PO DAILYBB [facility] Stop: 05/07/23 06:29 Last Admin: 04/10/23 05:35 Dose: 75 mcg Magnesium Hydroxide (Magnesium Hydroxide Susp 30 Ml Udc) 30 ml PO Q12H PRN PRN Reason: Constipation Stop: 05/06/23 15:14 Magnesium Oxide (Magnesium Oxide 400 Mg Tab) 400 mg PO BID [facility] Stop: 05/10/23 09:14 Metoprolol Succinate (Metoprolol Succ 50mg Ext Rel Tab) 100 mg PO QAM [facility]T Stop: 05/07/23 08:59 Last Admin: 04/10/23 08:15 Dose: 100 mg Miscellaneous (Carbohydrates For Hypoglycemia ) 15 - 30 gm PO UD PRN PRN Reason: Hypoglycemia Protocol Stop: 05/06/23 17:24 Ondansetron HCl (Ondansetron Inj 2 Mg/Ml 2 Ml Vial) 4 mg IV Q6H COLT Stop: 05/06/23 15:29 Last Admin: 04/10/23 08:15 Dose: 4 mg Oxycodone/Acetaminophen (Oxycodone/Acetaminophen 5mg/325mg Tab) 1 tab PO Q4H PRN PRN Reason: moderate pain Stop: 04/21/23 10:33 Last Admin: 04/10/23 08:14 Dose: 1 tab Spironolactone (Spironolactone 25 Mg Tab) [facility] [place]: 05/07/23 08:59
[2023-04-10] MEDS: MAGNESIUM OXIDE 400 MG TAB PO SCH ×2 (10:22→21:34)
[2023-04-10] MEDS ORDERED: PROMETHAZINE HCL 25 MG TAB PO PRN (11:17)
--- NOTE | 2023-04-10 11:49 | Surgery Progress Note ---
Date of Service April 10, 2023 Assessment & Plan (1) Non-specific colitis: (2) Intractable abdominal pain: Plan: persistent 8/10 pain without pain medication, slowly improving requiring IV dilaudid q 4 hrs ? low pain tolerance hemodynamically stable and HR wnl, would expect elevated given amount of pain KUB yesteday showing no obstruction, gas within loop of colon on left side (3) Vomiting: Plan: resolved (4) Hx of Clostridium difficile infection: Plan: c. diff negative Plan continue full liquids IV dilaudid q 6 hours, po Percocet also ordered, advised patient to try oral pain meds and decrease frequency of narcotic use highly encouraged oob to chair and ambulate as much as possible Continue conservative management, no surgical indication at this time Discussed with Dr. esposito who agrees with above. 04/09/2023 11:33AM Dr. Esposito I saw pt. pt feels better. pt wants to have regular foods, soft diet ok. may discharge tomorrow, if pt tolerated diet. 04/10/2023 11:47 Am, DR. Esposito F/U LLQ pain, pt is doing better, less LLQ pain, no nausea, no vomiting, no fever, normal; WBC, no surgery indication now, pt may be discharged per- hospitalist. F/U GI for EGD and colonoscopy sign off today, please call with questions, Thanks, Admission and Anticipated Discharge Date Admission Date: April 06, 2023 Supervising Physician Co-Signing Physician Notes Agree with GERBER Padgett as above Abd: Soft, NT, ND, +BS Stool PCR pending No plans for inpatient endoscopic workup Subjective Patient is seen and examined at bedside States feeling better today No nausea, vomiting today Tolerating current diet States having diarrhea Abdominal pain better today Discussed with GI today Denies any chest pain, dyspnea, dizziness 04/10/2023 111:[address] Esposito F/U LLQ pain, pt feels better today, no nausea, no vomiting, no fever, normal WBC, Physical Exam Constitutional: WD/WN, vitals as above Neck: trachea midline, no thyromegaly Respiratory: normal respiratory effort, lungs clear to auscultation Cardiovascular: RRR, no murmur, no edema Gastrointestinal (Abdomen): soft, mild tenderness at LLQ , no rebound pain, no distend, BS +, Musculoskeletal: no cyanosis or clubbing, extremities motor strength 5/5 Neurologic: patellar DTR's 2+ bilat, sensation intact Psychiatric: A+Ox3, euthymic affect Results & Data Vital Signs (Past 12 Hours) Vital Signs Temp Pulse Resp BP BP Pulse Ox O2 Del Method 04/10/23 07:53 36.8 C 76 18 154/80 H 96 Room Air 04/10/23 03:40 36.7 C 71 18 149/85 H 92 Room Air Laboratory Results Lab Results 04/06/23 04/06/23 04/06/23 Range/Units 09:30 09:30 15:15 WBC 9.40 (4.8-10.8) K/ul RBC 4.37 (4.20-5.40) M/uL Hgb 13.8 (12.0-16.0) g/dl Hct 39.8 (37.0-47.0) % MCV 91.1 (80.0-100.0) fL MCH 31.6 (25.0-34.0) pg MCHC 34.7 (32.0-36.0) g/dL RDW Std Deviation 45.1 (36.4-46.3) fL RDW Coeff of [place] 13.4 (11.5-14.5) % Plt Count 263 (130-400) K/uL MPV 9.7 (9.4-12.4) fL Immature Gran % (Auto) 0.2 % Neut % (Auto) 63.1 % Lymph % (Auto) 25.7 % Love % (Auto) 9.3 % Eos % (Auto) 1.4 % Baso % (Auto) 0.3 % Neut # (Auto) 5.93 (1.40-6.50) K/uL Lymph # (Auto) 2.42 (1.2-3.4) K/uL Love # (Auto) 0.87 H (0.11-0.59) K/uL Eos # (Auto) 0.13 (0-0.50) K/uL Baso # (Auto) 0.03 (0-0.2) K/uL Immature Gran # (Auto) 0.02 (0.01-0.20) K/uL Sodium 137 (136-145) mmol/L Potassium 3.4 L (3.5-5.1) mmol/L Chloride 103 (98-107) mmol/L Carbon Dioxide 28 (21-32) mmol/L Anion Gap 6 (3-11) BUN 14 (6-23) mg/dl Creatinine 0.81 (0.6-1.2) mg/dl Est Cr Clr Drug Dosing 62.7 ml/min Est GFR ( Amer) 82.3 ml/min Est GFR (Non-Af Amer) 71.0 ml/min BUN/Creatinine Ratio 17.3 (10-20) Glucose 107 H (70-99(Fasting)) mg/dl POC Glucose (70-99) mg/dl Estimat Average Glucose mg/dl Hemoglobin A1c (4.5-5.6) % Lactate (0.4-2.0) mmol/L Calcium 9.7 (8.6-10.3) mg/dl Phosphorus (2.5-4.9) mg/dl Magnesium (1.7-2.4) mg/dl Total Bilirubin 1.0 (0.2-1.0) mg/dl AST 17 (13-39) U/L ALT 17 (7-52) U/L Alkaline Phosphatase 67 (34-104) U/L Total Protein 6.6 (6.0-8.3) gm/dl Albumin 4.1 (3.4-5.0) gm/dl Globulin 2.5 (2.5-4.0) gm/dl Albumin/Globulin Ratio 1.6 (0.9-2) Lipase 25 (11-82) U/L Urine Color Urine Appearance (Clear) Urine pH (4.5-7.5) Ur Specific [place] (1.000-1.030) Urine Protein (Negative) Urine Glucose (UA) (Negative) Urine Ketones (Negative) Urine Blood (Negative) Urine Nitrite (Negative) Urine Bilirubin (Negative) Urine Urobilinogen (Negative) Ur Leukocyte Esterase (Negative) Stool Occult Bld Scrn (Negative) Stl C. cayetanensis PCR Stool Rotavirus A PCR Stl Adenov F 40/41 PCR Stool Astrovirus (PCR) Stool Campylobacter PCR Stl C. diff Tox B Gene (Neg) Stool Cryptosporidium PCR Stl E.coli Shiga Tox PCR Stool E coli O157 PCR Stl Enterotoxigenic E PCR Stool EPEC (PCR) Stool EAEC (PCR) Stl E. histolytica PCR Stool Giardia Lamblia PCR Stool Salmonella PCR Stool Sapovirus (PCR) Stl P. shigelloides PCR Stl Shigella/EIEC PCR St Y.enterocolitica PCR Stool Vibrio (PCR) Stl Vibrio cholerae PCR Stl Norovirus GI/GII PCR SARS-CoV-2, RNA, NAAT NEGATIVE (NEGATIVE) 04/06/23 04/06/23 04/06/23 Range/Units 17:19 18:48 20:30 WBC (4.8-10.8) K/ul RBC (4.20-5.40) M/uL Hgb (12.0-16.0) g/dl Hct (37.0-47.0) % MCV (80.0-100.0) fL MCH (25.0-34.0) pg MCHC (32.0-36.0) g/dL RDW Std Deviation (36.4-46.3) fL RDW Coeff of [place] (11.5-14.5) % Plt Count (130-400) K/uL MPV (9.4-12.4) fL Immature Gran % (Auto) % Neut % (Auto) % Lymph % (Auto) % Love % (Auto) % Eos % (Auto) % Baso % (Auto) % Neut # (Auto) (1.40-6.50) K/uL Lymph # (Auto) (1.2-3.4) K/uL Love # (Auto) (0.11-0.59) K/uL Eos # (Auto) (0-0.50) K/uL Baso # (Auto) (0-0.2) K/uL Immature Gran # (Auto) (0.01-0.20) K/uL Sodium (136-145) mmol/L Potassium (3.5-5.1) mmol/L Chloride (98-107) mmol/L Carbon Dioxide (21-32) mmol/L Anion Gap (3-11) BUN (6-23) mg/dl Creatinine (0.6-1.2) mg/dl Est Cr Clr Drug Dosing ml/min Est GFR ( Amer) ml/min Est GFR (Non-Af Amer) ml/min BUN/Creatinine Ratio (10-20) Glucose (70-99(Fasting)) mg/dl POC Glucose 84 (70-99) mg/dl Estimat Average Glucose mg/dl Hemoglobin A1c (4.5-5.6) % Lactate 0.9 (0.4-2.0) mmol/L Calcium (8.6-10.3) mg/dl Phosphorus (2.5-4.9) mg/dl Magnesium (1.7-2.4) mg/dl Total Bilirubin (0.2-1.0) mg/dl AST (13-39) U/L ALT (7-52) U/L Alkaline Phosphatase (34-104) U/L Total Protein (6.0-8.3) gm/dl Albumin (3.4-5.0) gm/dl Globulin (2.5-4.0) gm/dl Albumin/Globulin Ratio (0.9-2) Lipase (11-82) U/L Urine Color Yellow Urine Appearance Clear (Clear) Urine pH 6.5 (4.5-7.5) Ur Specific [place] > 1.045 H (1.000-1.030) Urine Protein Negative (Negative) Urine Glucose (UA) Negative (Negative) Urine Ketones Trace H (Negative) Urine Blood Negative (Negative) Urine Nitrite Negative (Negative) Urine Bilirubin Negative (Negative) Urine Urobilinogen Negative (Negative) Ur Leukocyte Esterase Negative (Negative) Stool Occult Bld Scrn (Negative) Stl C. cayetanensis PCR Stool Rotavirus A PCR Stl Adenov F 40/41 PCR Stool Astrovirus (PCR) Stool Campylobacter PCR Stl C. diff Tox B Gene (Neg) Stool Cryptosporidium PCR Stl E.coli Shiga Tox PCR Stool E coli O157 PCR Stl Enterotoxigenic E PCR Stool EPEC (PCR) Stool EAEC (PCR) Stl E. histolytica PCR Stool Giardia Lamblia PCR Stool Salmonella PCR Stool Sapovirus (PCR) Stl P. shigelloides PCR Stl Shigella/EIEC PCR St Y.enterocolitica PCR Stool Vibrio (PCR) Stl Vibrio cholerae PCR Stl Norovirus GI/GII PCR SARS-CoV-2, RNA, NAAT (NEGATIVE) 04/06/23 04/06/23 04/07/23 Range/Units 20:56 21:16 05:39 WBC 9.16 7.50 (4.8-10.8) K/ul RBC 3.66 L 3.53 L (4.20-5.40) M/uL Hgb 11.7 L 11.1 L (12.0-16.0) g/dl Hct 34.1 L 33.2 L (37.0-47.0) % MCV 93.2 94.1 (80.0-100.0) fL MCH 32.0 31.4 (25.0-34.0) pg MCHC 34.3 33.4 (32.0-36.0) g/dL RDW Std Deviation 45.8 46.3 (36.4-46.3) fL RDW Coeff of [place] 13.5 13.6 (11.5-14.5) % Plt Count 182 222 (130-400) K/uL MPV 9.9 9.8 (9.4-12.4) fL Immature Gran % (Auto) % Neut % (Auto) % Lymph % (Auto) % Love % (Auto) % Eos % (Auto) % Baso % (Auto) % Neut # (Auto) (1.40-6.50) K/uL Lymph # (Auto) (1.2-3.4) K/uL Love # (Auto) (0.11-0.59) K/uL Eos # (Auto) (0-0.50) K/uL Baso # (Auto) (0-0.2) K/uL Immature Gran # (Auto) (0.01-0.20) K/uL Sodium (136-145) mmol/L Potassium (3.5-5.1) mmol/L Chloride (98-107) mmol/L Carbon Dioxide (21-32) mmol/L Anion Gap (3-11) BUN (6-23) mg/dl Creatinine (0.6-1.2) mg/dl Est Cr Clr Drug Dosing ml/min Est GFR ( Amer) ml/min Est GFR (Non-Af Amer) ml/min BUN/Creatinine Ratio (10-20) Glucose (70-99(Fasting)) mg/dl POC Glucose 102 H (70-99) mg/dl Estimat Average Glucose mg/dl Hemoglobin A1c (4.5-5.6) % Lactate (0.4-2.0) mmol/L Calcium (8.6-10.3) mg/dl Phosphorus (2.5-4.9) mg/dl Magnesium (1.7-2.4) mg/dl Total Bilirubin (0.2-1.0) mg/dl AST (13-39) U/L ALT (7-52) U/L Alkaline Phosphatase (34-104) U/L Total Protein (6.0-8.3) gm/dl Albumin (3.4-5.0) gm/dl Globulin (2.5-4.0) gm/dl Albumin/Globulin Ratio (0.9-2) Lipase (11-82) U/L Urine Color Urine Appearance (Clear) Urine pH (4.5-7.5) Ur Specific [place] (1.000-1.030) Urine Protein (Negative) Urine Glucose (UA) (Negative) Urine Ketones (Negative) Urine Blood (Negative) Urine Nitrite (Negative) Urine Bilirubin (Negative) Urine Urobilinogen (Negative) Ur Leukocyte Esterase (Negative) Stool Occult Bld Scrn (Negative) Stl C. cayetanensis PCR Stool Rotavirus A PCR Stl Adenov F PCR Stool Astrovirus (PCR) Stool Campylobacter PCR Stl C. diff Tox B Gene (Neg) Stool Cryptosporidium PCR Stl E.coli Shiga Tox PCR Stool E coli O157 PCR Stl Enterotoxigenic E PCR Stool EPEC (PCR) Stool EAEC (PCR) Stl E. histolytica PCR Stool Giardia Lamblia PCR Stool Salmonella PCR Stool Sapovirus (PCR) Stl P. shigelloides PCR Stl Shigella/EIEC PCR St Y.enterocolitica PCR Stool Vibrio (PCR) Stl Vibrio cholerae PCR Stl Norovirus GI/GII PCR SARS-CoV-2, RNA, NAAT (NEGATIVE) 04/07/23 04/07/23 04/07/23 Range/Units 05:39 05:39 06:42 WBC (4.8-10.8) K/ul RBC (4.20-5.40) M/uL Hgb (12.0-16.0) g/dl Hct (37.0-47.0) % MCV (80.0-100.0) fL MCH (25.0-34.0) pg MCHC (32.0-36.0) g/dL RDW Std Deviation (36.4-46.3) fL RDW Coeff of [place] (11.5-14.5) % Plt Count (130-400) K/uL MPV (9.4-12.4) fL Immature Gran % (Auto) % Neut % (Auto) % Lymph % (Auto) % Love % (Auto) % Eos % (Auto) % Baso % (Auto) % Neut # (Auto) (1.40-6.50) K/uL Lymph # (Auto) (1.2-3.4) K/uL Love # (Auto) (0.11-0.59) K/uL Eos # (Auto) (0-0.50) K/uL Baso # (Auto) (0-0.2) K/uL Immature Gran # (Auto) (0.01-0.20) K/uL Sodium 140 (136-145) mmol/L Potassium 4.0 (3.5-5.1) mmol/L Chloride 110 H (98-107) mmol/L Carbon Dioxide 26 (21-32) mmol/L Anion Gap 4 (3-11) BUN 7 (6-23) mg/dl Creatinine 0.61 (0.6-1.2) mg/dl Est Cr Clr Drug Dosing 83.1 ml/min Est GFR ( Amer) 102.8 ml/min Est GFR (Non-Af Amer) 88.7 ml/min BUN/Creatinine Ratio 11.5 (10-20) Glucose 85 (70-99(Fasting)) mg/dl POC Glucose 103 H (70-99) mg/dl Estimat Average Glucose 117 mg/dl Hemoglobin A1c 5.7 H (4.5-5.6) % Lactate (0.4-2.0) mmol/L Calcium 8.7 (8.6-10.3) mg/dl Phosphorus 3.4 (2.5-4.9) mg/dl Magnesium 1.7 (1.7-2.4) mg/dl Total Bilirubin (0.2-1.0) mg/dl AST (13-39) U/L ALT (7-52) U/L Alkaline Phosphatase (34-104) U/L Total Protein (6.0-8.3) gm/dl Albumin (3.4-5.0) gm/dl Globulin (2.5-4.0) gm/dl Albumin/Globulin Ratio (0.9-2) Lipase (11-82) U/L Urine Color Urine Appearance (Clear) Urine pH (4.5-7.5) Ur Specific [place] (1.000-1.030) Urine Protein (Negative) Urine Glucose (UA) (Negative) Urine Ketones (Negative) Urine Blood (Negative) Urine Nitrite (Negative) Urine Bilirubin (Negative) Urine Urobilinogen (Negative) Ur Leukocyte Esterase (Negative) Stool Occult Bld Scrn (Negative) Stl C. cayetanensis PCR Stool Rotavirus A PCR Stl Adenov F 40 PCR Stool Astrovirus (PCR) Stool Campylobacter PCR Stl C. diff Tox B Gene (Neg) Stool Cryptosporidium PCR Stl E.coli Shiga Tox PCR Stool E coli O157 PCR Stl Enterotoxigenic E PCR Stool EPEC (PCR) Stool EAEC (PCR) Stl E. histolytica PCR Stool Giardia Lamblia PCR Stool Salmonella PCR Stool Sapovirus (PCR) Stl P. shigelloides PCR Stl Shigella/EIEC PCR St Y.enterocolitica PCR Stool Vibrio (PCR) Stl Vibrio cholerae PCR Stl Norovirus GI/GII PCR SARS-CoV-2, RNA, NAAT (NEGATIVE) 04/07/23 04/07/23 04/07/23 Range/Units 11:56 13:55 13:55 WBC (4.8-10.8) K/ul RBC (4.20-5.40) M/uL Hgb (12.0-16.0) g/dl Hct (37.0-47.0) % MCV (80.0-100.0) fL MCH (25.0-34.0) pg MCHC (32.0-36.0) g/dL RDW Std Deviation (36.4-46.3) fL RDW Coeff of [place] (11.5-14.5) % Plt Count (130-400) K/uL MPV (9.4-12.4) fL Immature Gran % (Auto) % Neut % (Auto) % Lymph % (Auto) % Love % (Auto) % Eos % (Auto) % Baso % (Auto) % Neut # (Auto) (1.40-6.50) K/uL Lymph # (Auto) (1.2-3.4) K/uL Love # (Auto) (0.11-0.59) K/uL Eos # (Auto) (0-0.50) K/uL Baso # (Auto) (0-0.2) K/uL Immature Gran # (Auto) (0.01-0.20) K/uL Sodium (136-145) mmol/L Potassium (3.5-5.1) mmol/L Chloride (98-107) mmol/L Carbon Dioxide (21-32) mmol/L Anion Gap (3-11) BUN (6-23) mg/dl Creatinine (0.6-1.2) mg/dl Est Cr Clr Drug Dosing ml/min Est GFR ( Amer) ml/min Est GFR (Non-Af Amer) ml/min BUN/Creatinine Ratio (10-20) Glucose (70-99(Fasting)) mg/dl POC Glucose 110 H (70-99) mg/dl Estimat Average Glucose mg/dl Hemoglobin A1c (4.5-5.6) % Lactate (0.4-2.0) mmol/L Calcium (8.6-10.3) mg/dl Phosphorus (2.5-4.9) mg/dl Magnesium (1.7-2.4) mg/dl Total Bilirubin (0.2-1.0) mg/dl AST (13-39) U/L ALT (7-52) U/L Alkaline Phosphatase (34-104) U/L Total Protein (6.0-8.3) gm/dl Albumin (3.4-5.0) gm/dl Globulin (2.5-4.0) gm/dl Albumin/Globulin Ratio (0.9-2) Lipase (11-82) U/L Urine Color Urine Appearance (Clear) Urine pH (4.5-7.5) Ur Specific [place] (1.000-1.030) Urine Protein (Negative) Urine Glucose (UA) (Negative) Urine Ketones (Negative) Urine Blood (Negative) Urine Nitrite (Negative) Urine Bilirubin (Negative) Urine Urobilinogen (Negative) Ur Leukocyte Esterase (Negative) Stool Occult Bld Scrn (Negative) Stl C. cayetanensis PCR Cancelled Stool Rotavirus A PCR Cancelled Stl Adenov F 40/41 PCR Cancelled Stool Astrovirus (PCR) Cancelled Stool Campylobacter PCR Cancelled Stl C. diff Tox B Gene Negative Cdiff Gene (Neg) Stool Cryptosporidium PCR Cancelled Stl E.coli Shiga Tox PCR Cancelled Stool E coli O157 PCR Cancelled Stl Enterotoxigenic E PCR Cancelled Stool EPEC (PCR) Cancelled Stool EAEC (PCR) Cancelled Stl E. histolytica PCR Cancelled Stool Giardia Lamblia PCR Cancelled Stool Salmonella PCR Cancelled Stool Sapovirus (PCR) Cancelled Stl P. shigelloides PCR Cancelled Stl Shigella/EIEC PCR Cancelled St Y.enterocolitica PCR Cancelled Stool Vibrio (PCR) Cancelled Stl Vibrio cholerae PCR Cancelled Stl Norovirus GI/GII PCR Cancelled SARS-CoV-2, RNA, NAAT (NEGATIVE) 04/07/23 04/07/23 04/07/23 Range/Units 13:55 16:50 21:15 WBC (4.8-10.8) K/ul RBC (4.20-5.40) M/uL Hgb (12.0-16.0) g/dl Hct (37.0-47.0) % MCV (80.0-100.0) fL MCH (25.0-34.0) pg MCHC (32.0-36.0) g/dL RDW Std Deviation (36.4-46.3) fL RDW Coeff of [place] (11.5-14.5) % Plt Count (130-400) K/uL MPV (9.4-12.4) fL Immature Gran % (Auto) % Neut % (Auto) % Lymph % (Auto) % Love % (Auto) % Eos % (Auto) % Baso % (Auto) % Neut # (Auto) (1.40-6.50) K/uL Lymph # (Auto) (1.2-3.4) K/uL Love # (Auto) (0.11-0.59) K/uL Eos # (Auto) (0-0.50) K/uL Baso # (Auto) (0-0.2) K/uL Immature Gran # (Auto) (0.01-0.20) K/uL Sodium (136-145) mmol/L Potassium (3.5-5.1) mmol/L Chloride (98-107) mmol/L Carbon Dioxide (21-32) mmol/L Anion Gap (3-11) BUN (6-23) mg/dl Creatinine (0.6-1.2) mg/dl Est Cr Clr Drug Dosing ml/min Est GFR ( Amer) ml/min Est GFR (Non-Af Amer) ml/min BUN/Creatinine Ratio (10-20) Glucose (70-99(Fasting)) mg/dl POC Glucose 116 H 137 H (70-99) mg/dl Estimat Average Glucose mg/dl Hemoglobin A1c (4.5-5.6) % Lactate (0.4-2.0) mmol/L Calcium (8.6-10.3) mg/dl Phosphorus (2.5-4.9) mg/dl Magnesium (1.7-2.4) mg/dl Total Bilirubin (0.2-1.0) mg/dl AST (13-39) U/L ALT (7-52) U/L Alkaline Phosphatase (34-104) U/L Total Protein (6.0-8.3) gm/dl Albumin (3.4-5.0) gm/dl Globulin (2.5-4.0) gm/dl Albumin/Globulin Ratio (0.9-2) Lipase (11-82) U/L Urine Color Urine Appearance (Clear) Urine pH (4.5-7.5) Ur Specific [place] (1.000-1.030) Urine Protein (Negative) Urine Glucose (UA) (Negative) Urine Ketones (Negative) Urine Blood (Negative) Urine Nitrite (Negative) Urine Bilirubin (Negative) Urine Urobilinogen (Negative) Ur Leukocyte Esterase (Negative) Stool Occult Bld Scrn Positive A (Negative) Stl C. cayetanensis PCR Stool Rotavirus A PCR Stl Adenov F 40/41 PCR Stool Astrovirus (PCR) Stool Campylobacter PCR Stl C. diff Tox B Gene (Neg) Stool Cryptosporidium PCR Stl E.coli Shiga Tox PCR Stool E coli O157 PCR Stl Enterotoxigenic E PCR Stool EPEC (PCR) Stool EAEC (PCR) Stl E. histolytica PCR Stool Giardia Lamblia PCR Stool Salmonella PCR Stool Sapovirus (PCR) Stl P. shigelloides PCR Stl Shigella/EIEC PCR St Y.enterocolitica PCR Stool Vibrio (PCR) Stl Vibrio cholerae PCR Stl Norovirus GI/GII PCR SARS-CoV-2, RNA, NAAT (NEGATIVE) 04/08/23 04/08/23 04/08/23 Range/Units 05:31 05:31 07:21 WBC (4.8-10.8) K/ul RBC (4.20-5.40) M/uL Hgb 11.6 L (12.0-16.0) g/dl Hct 33.7 L (37.0-47.0) % MCV (80.0-100.0) fL MCH (25.0-34.0) pg MCHC (32.0-36.0) g/dL RDW Std Deviation (36.4-46.3) fL RDW Coeff of [place] (11.5-14.5) % Plt Count (130-400) K/uL MPV (9.4-12.4) fL Immature Gran % (Auto) % Neut % (Auto) % Lymph % (Auto) % Love % (Auto) % Eos % (Auto) % Baso % (Auto) % Neut # (Auto) (1.40-6.50) K/uL Lymph # (Auto) (1.2-3.4) K/uL Love # (Auto) (0.11-0.59) K/uL Eos # (Auto) (0-0.50) K/uL Baso # (Auto) (0-0.2) K/uL Immature Gran # (Auto) (0.01-0.20) K/uL Sodium 141 (136-145) mmol/L Potassium 3.7 (3.5-5.1) mmol/L Chloride 110 H (98-107) mmol/L Carbon Dioxide 25 (21-32) mmol/L Anion Gap 6 (3-11) BUN 4 L (6-23) mg/dl Creatinine 0.57 L (0.6-1.2) mg/dl Est Cr Clr Drug Dosing 89.9 ml/min Est GFR ( Amer) 105.1 ml/min Est GFR (Non-Af Amer) 90.7 ml/min BUN/Creatinine Ratio 7.0 L (10-20) Glucose 78 (70-99(Fasting)) mg/dl POC Glucose 94 (70-99) mg/dl Estimat Average Glucose mg/dl Hemoglobin A1c (4.5-5.6) % Lactate (0.4-2.0) mmol/L Calcium 8.7 (8.6-10.3) mg/dl Phosphorus (2.5-4.9) mg/dl Magnesium (1.7-2.4) mg/dl Total Bilirubin (0.2-1.0) mg/dl AST (13-39) U/L ALT (7-52) U/L Alkaline Phosphatase (34-104) U/L Total Protein (6.0-8.3) gm/dl Albumin (3.4-5.0) gm/dl Globulin (2.5-4.0) gm/dl Albumin/Globulin Ratio (0.9-2) Lipase (11-82) U/L Urine Color Urine Appearance (Clear) Urine pH (4.5-7.5) Ur Specific [place] (1.000-1.030) Urine Protein (Negative) Urine Glucose (UA) (Negative) Urine Ketones (Negative) Urine Blood (Negative) Urine Nitrite (Negative) Urine Bilirubin (Negative) Urine Urobilinogen (Negative) Ur Leukocyte Esterase (Negative) Stool Occult Bld Scrn (Negative) Stl C. cayetanensis PCR Stool Rotavirus A PCR Stl Adenov F 40/41 PCR Stool Astrovirus (PCR) Stool Campylobacter PCR Stl C. diff Tox B Gene (Neg) Stool Cryptosporidium PCR Stl E.coli Shiga Tox PCR Stool E coli O157 PCR Stl Enterotoxigenic E PCR Stool EPEC (PCR) Stool EAEC (PCR) Stl E. histolytica PCR Stool Giardia Lamblia PCR Stool Salmonella PCR Stool Sapovirus (PCR) Stl P. shigelloides PCR Stl Shigella/EIEC PCR St Y.enterocolitica PCR Stool Vibrio (PCR) Stl Vibrio cholerae PCR Stl Norovirus GI/GII PCR SARS-CoV-2, RNA, NAAT (NEGATIVE) 04/08/23 04/08/23 04/08/23 Range/Units 11:44 16:29 20:29 WBC (4.8-10.8) K/ul RBC (4.20-5.40) M/uL Hgb (12.0-16.0) g/dl Hct (37.0-47.0) % MCV (80.0-100.0) fL MCH (25.0-34.0) pg MCHC (32.0-36.0) g/dL RDW Std Deviation (36.4-46.3) fL RDW Coeff of [place] (11.5-14.5) % Plt Count (130-400) K/uL MPV (9.4-12.4) fL Immature Gran % (Auto) % Neut % (Auto) % Lymph % (Auto) % Love % (Auto) % Eos % (Auto) % Baso % (Auto) % Neut # (Auto) (1.40-6.50) K/uL Lymph # (Auto) (1.2-3.4) K/uL Love # (Auto) (0.11-0.59) K/uL Eos # (Auto) (0-0.50) K/uL Baso # (Auto) (0-0.2) K/uL Immature Gran # (Auto) (0.01-0.20) K/uL Sodium (136-145) mmol/L Potassium (3.5-5.1) mmol/L Chloride (98-107) mmol/L Carbon Dioxide (21-32) mmol/L Anion Gap (3-11) BUN (6-23) mg/dl Creatinine (0.6-1.2) mg/dl Est Cr Clr Drug Dosing ml/min Est GFR ( Amer) ml/min Est GFR (Non-Af Amer) ml/min BUN/Creatinine Ratio (10-20) Glucose (70-99(Fasting)) mg/dl POC Glucose 103 H 99 87 (70-99) mg/dl Estimat Average Glucose mg/dl Hemoglobin A1c (4.5-5.6) % Lactate (0.4-2.0) mmol/L Calcium (8.6-10.3) mg/dl Phosphorus (2.5-4.9) mg/dl Magnesium (1.7-2.4) mg/dl Total Bilirubin (0.2-1.0) mg/dl AST (13-39) U/L ALT (7-52) U/L Alkaline Phosphatase (34-104) U/L Total Protein (6.0-8.3) gm/dl Albumin (3.4-5.0) gm/dl Globulin (2.5-4.0) gm/dl Albumin/Globulin Ratio (0.9-2) Lipase (11-82) U/L Urine Color Urine Appearance (Clear) Urine pH (4.5-7.5) Ur Specific [place] (1.000-1.030) Urine Protein (Negative) Urine Glucose (UA) (Negative) Urine Ketones (Negative) Urine Blood (Negative) Urine Nitrite (Negative) Urine Bilirubin (Negative) Urine Urobilinogen (Negative) Ur Leukocyte Esterase (Negative) Stool Occult Bld Scrn (Negative) Stl C. cayetanensis PCR Stool Rotavirus A PCR Stl Adenov F PCR Stool Astrovirus (PCR) Stool Campylobacter PCR Stl C. diff Tox B Gene (Neg) Stool Cryptosporidium PCR Stl E.coli Shiga Tox PCR Stool E coli O157 PCR Stl Enterotoxigenic E PCR Stool EPEC (PCR) Stool EAEC (PCR) Stl E. histolytica PCR Stool Giardia Lamblia PCR Stool Salmonella PCR Stool Sapovirus (PCR) Stl P. shigelloides PCR Stl Shigella/EIEC PCR St Y.enterocolitica PCR Stool Vibrio (PCR) Stl Vibrio cholerae PCR Stl Norovirus GI/GII PCR SARS-CoV-2, RNA, NAAT (NEGATIVE) 04/09/23 04/09/23 04/09/23 Range/Units 05:43 05:43 07:33 WBC (4.8-10.8) K/ul RBC (4.20-5.40) M/uL Hgb 12.7 (12.0-16.0) g/dl Hct 36.7 L (37.0-47.0) % MCV (80.0-100.0) fL MCH (25.0-34.0) pg MCHC (32.0-36.0) g/dL RDW Std Deviation (36.4-46.3) fL RDW Coeff of [place] (11.5-14.5) % Plt Count (130-400) K/uL MPV (9.4-12.4) fL Immature Gran % (Auto) % Neut % (Auto) % Lymph % (Auto) % Love % (Auto) % Eos % (Auto) % Baso % (Auto) % Neut # (Auto) (1.40-6.50) K/uL Lymph # (Auto) (1.2-3.4) K/uL Love # (Auto) (0.11-0.59) K/uL Eos # (Auto) (0-0.50) K/uL Baso # (Auto) (0-0.2) K/uL Immature Gran # (Auto) (0.01-0.20) K/uL Sodium 139 (136-145) mmol/L Potassium 3.9 (3.5-5.1) mmol/L Chloride 106 (98-107) mmol/L Carbon Dioxide 26 (21-32) mmol/L Anion Gap 7 (3-11) BUN 4 L (6-23) mg/dl Creatinine 0.64 (0.6-1.2) mg/dl Est Cr Clr Drug Dosing 80.3 ml/min Est GFR ( Amer) 101.2 ml/min Est GFR (Non-Af Amer) 87.3 ml/min BUN/Creatinine Ratio 6.3 L (10-20) Glucose 77 (70-99(Fasting)) mg/dl POC Glucose 100 H (70-99) mg/dl Estimat Average Glucose mg/dl Hemoglobin A1c (4.5-5.6) % Lactate (0.4-2.0) mmol/L Calcium 9.1 (8.6-10.3) mg/dl Phosphorus (2.5-4.9) mg/dl Magnesium 1.7 (1.7-2.4) mg/dl Total Bilirubin (0.2-1.0) mg/dl AST (13-39) U/L ALT (7-52) U/L Alkaline Phosphatase (34-104) U/L Total Protein (6.0-8.3) gm/dl Albumin (3.4-5.0) gm/dl Globulin (2.5-4.0) gm/dl Albumin/Globulin Ratio (0.9-2) Lipase (11-82) U/L Urine Color Urine Appearance (Clear) Urine pH (4.5-7.5) Ur Specific [place] (1.000-1.030) Urine Protein (Negative) Urine Glucose (UA) (Negative) Urine Ketones (Negative) Urine Blood (Negative) Urine Nitrite (Negative) Urine Bilirubin (Negative) Urine Urobilinogen (Negative) Ur Leukocyte Esterase (Negative) Stool Occult Bld Scrn (Negative) Stl C. cayetanensis PCR Stool Rotavirus A PCR Stl Adenov F 40/41 PCR Stool Astrovirus (PCR) Stool Campylobacter PCR Stl C. diff Tox B Gene (Neg) Stool Cryptosporidium PCR Stl E.coli Shiga Tox PCR Stool E coli O157 PCR Stl Enterotoxigenic E PCR Stool EPEC (PCR) Stool EAEC (PCR) Stl E. histolytica PCR Stool Giardia Lamblia PCR Stool Salmonella PCR Stool Sapovirus (PCR) Stl P. shigelloides PCR Stl Shigella/EIEC PCR St Y.enterocolitica PCR Stool Vibrio (PCR) Stl Vibrio cholerae PCR Stl Norovirus GI/GII PCR SARS-CoV-2, RNA, NAAT (NEGATIVE) 04/09/23 04/09/23 04/09/23 Range/Units 11:09 16:40 20:12 WBC (4.8-10.8) K/ul RBC (4.20-5.40) M/uL Hgb (12.0-16.0) g/dl Hct (37.0-47.0) % MCV (80.0-100.0) fL MCH (25.0-34.0) pg MCHC (32.0-36.0) g/dL RDW Std Deviation (36.4-46.3) fL RDW Coeff of [place] (11.5-14.5) % Plt Count (130-400) K/uL MPV (9.4-12.4) fL Immature Gran % (Auto) % Neut % (Auto) % Lymph % (Auto) % Love % (Auto) % Eos % (Auto) % Baso % (Auto) % Neut # (Auto) (1.40-6.50) K/uL Lymph # (Auto) (1.2-3.4) K/uL Love # (Auto) (0.11-0.59) K/uL Eos # (Auto) (0-0.50) K/uL Baso # (Auto) (0-0.2) K/uL Immature Gran # (Auto) (0.01-0.20) K/uL Sodium (136-145) mmol/L Potassium (3.5-5.1) mmol/L Chloride (98-107) mmol/L Carbon Dioxide (21-32) mmol/L Anion Gap (3-11) BUN (6-23) mg/dl Creatinine (0.6-1.2) mg/dl Est Cr Clr Drug Dosing ml/min Est GFR ( Amer) ml/min Est GFR (Non-Af Amer) ml/min BUN/Creatinine Ratio (10-20) Glucose (70-99(Fasting)) mg/dl POC Glucose 98 105 H 104 H (70-99) mg/dl Estimat Average Glucose mg/dl Hemoglobin A1c (4.5-5.6) % Lactate (0.4-2.0) mmol/L Calcium (8.6-10.3) mg/dl Phosphorus (2.5-4.9) mg/dl Magnesium (1.7-2.4) mg/dl Total Bilirubin (0.2-1.0) mg/dl AST (13-39) U/L ALT (7-52) U/L Alkaline Phosphatase (34-104) U/L Total Protein (6.0-8.3) gm/dl Albumin (3.4-5.0) gm/dl Globulin (2.5-4.0) gm/dl Albumin/Globulin Ratio (0.9-2) Lipase (11-82) U/L Urine Color Urine Appearance (Clear) Urine pH (4.5-7.5) Ur Specific [place] (1.000-1.030) Urine Protein (Negative) Urine Glucose (UA) (Negative) Urine Ketones (Negative) Urine Blood (Negative) Urine Nitrite (Negative) Urine Bilirubin (Negative) Urine Urobilinogen (Negative) Ur Leukocyte Esterase (Negative) Stool Occult Bld Scrn (Negative) Stl C. cayetanensis PCR Stool Rotavirus A PCR Stl Adenov F 40/41 PCR Stool Astrovirus (PCR) Stool Campylobacter PCR Stl C. diff Tox B Gene (Neg) Stool Cryptosporidium PCR Stl E.coli Shiga Tox PCR Stool E coli O157 PCR Stl Enterotoxigenic E PCR Stool EPEC (PCR) Stool EAEC (PCR) Stl E. histolytica PCR Stool Giardia Lamblia PCR Stool Salmonella PCR Stool Sapovirus (PCR) Stl P. shigelloides PCR Stl Shigella/EIEC PCR St Y.enterocolitica PCR Stool Vibrio (PCR) Stl Vibrio cholerae PCR Stl Norovirus GI/GII PCR SARS-CoV-2, RNA, NAAT (NEGATIVE) 04/09/23 04/10/23 04/10/23 Range/Units Unknown 05:29 05:29 WBC 7.43 (4.8-10.8) K/ul RBC 4.11 L (4.20-5.40) M/uL Hgb 13.1 (12.0-16.0) g/dl Hct 37.7 (37.0-47.0) % MCV 91.7 (80.0-100.0) fL MCH 31.9 (25.0-34.0) pg MCHC 34.7 (32.0-36.0) g/dL RDW Std Deviation 44.6 (36.4-46.3) fL RDW Coeff of [place] 13.2 (11.5-14.5) % Plt Count 273 (130-400) K/uL MPV 9.7 (9.4-12.4) fL Immature Gran % (Auto) % Neut % (Auto) % Lymph % (Auto) % Love % (Auto) % Eos % (Auto) % Baso % (Auto) % Neut # (Auto) (1.40-6.50) K/uL Lymph # (Auto) (1.2-3.4) K/uL Love # (Auto) (0.11-0.59) K/uL Eos # (Auto) (0-0.50) K/uL Baso # (Auto) (0-0.2) K/uL Immature Gran # (Auto) (0.01-0.20) K/uL Sodium 139 (136-145) mmol/L Potassium 3.8 (3.5-5.1) mmol/L Chloride 106 (98-107) mmol/L Carbon Dioxide 27 (21-32) mmol/L Anion Gap 6 (3-11) BUN 8 (6-23) mg/dl Creatinine 0.78 (0.6-1.2) mg/dl Est Cr Clr Drug Dosing 65.9 ml/min Est GFR ( Amer) 86.2 ml/min Est GFR (Non-Af Amer) 74.4 ml/min BUN/Creatinine Ratio 10.3 (10-20) Glucose 93 (70-99(Fasting)) mg/dl POC Glucose (70-99) mg/dl Estimat Average Glucose mg/dl Hemoglobin A1c (4.5-5.6) % Lactate (0.4-2.0) mmol/L Calcium 8.6 (8.6-10.3) mg/dl Phosphorus (2.5-4.9) mg/dl Magnesium 1.7 (1.7-2.4) mg/dl Total Bilirubin (0.2-1.0) mg/dl AST (13-39) U/L ALT (7-52) U/L Alkaline Phosphatase (34-104) U/L Total Protein (6.0-8.3) gm/dl Albumin (3.4-5.0) gm/dl Globulin (2.5-4.0) gm/dl Albumin/Globulin Ratio (0.9-2) Lipase (11-82) U/L Urine Color Urine Appearance (Clear) Urine pH (4.5-7.5) Ur Specific [place] (1.000-1.030) Urine Protein (Negative) Urine Glucose (UA) (Negative) Urine Ketones (Negative) Urine Blood (Negative) Urine Nitrite (Negative) Urine Bilirubin (Negative) Urine Urobilinogen (Negative) Ur Leukocyte Esterase (Negative) Stool Occult Bld Scrn (Negative) Stl C. cayetanensis PCR Not Detected Stool Rotavirus A PCR Not Detected Stl Adenov F 40/41 PCR Not Detected Stool Astrovirus (PCR) Not Detected Stool Campylobacter PCR Not Detected Stl C. diff Tox B Gene (Neg) Stool Cryptosporidium PCR Not Detected Stl E.coli Shiga Tox PCR Not Detected Stool E coli O157 PCR Stl Enterotoxigenic E PCR Not Detected Stool EPEC (PCR) Not Detected Stool EAEC (PCR) Not Detected Stl E. histolytica PCR Not Detected Stool Giardia Lamblia PCR Not Detected Stool Salmonella PCR Not Detected Stool Sapovirus (PCR) Not Detected Stl P. shigelloides PCR Not Detected Stl Shigella/EIEC PCR Not Detected St Y.enterocolitica PCR Not Detected Stool Vibrio (PCR) Not Detected Stl Vibrio cholerae PCR Not Detected Stl Norovirus GI/GII PCR Not Detected SARS-CoV-2, RNA, NAAT (NEGATIVE) 04/10/23 04/10/23 Range/Units 07:47 11:31 WBC (4.8-10.8) K/ul RBC (4.20-5.40) M/uL Hgb (12.0-16.0) g/dl Hct (37.0-47.0) % MCV (80.0-100.0) fL MCH (25.0-34.0) pg MCHC (32.0-36.0) g/dL RDW Std Deviation (36.4-46.3) fL RDW Coeff of [place] (11.5-14.5) % Plt Count (130-400) K/uL MPV (9.4-12.4) fL Immature Gran % (Auto) % Neut % (Auto) % Lymph % (Auto) % Love % (Auto) % Eos % (Auto) % Baso % (Auto) % Neut # (Auto) (1.40-6.50) K/uL Lymph # (Auto) (1.2-3.4) K/uL Love # (Auto) (0.11-0.59) K/uL Eos # (Auto) (0-0.50) K/uL Baso # (Auto) (0-0.2) K/uL Immature Gran # (Auto) (0.01-0.20) K/uL Sodium (136-145) mmol/L Potassium (3.5-5.1) mmol/L Chloride (98-107) mmol/L Carbon Dioxide (21-32) mmol/L Anion Gap (3-11) BUN (6-23) mg/dl Creatinine (0.6-1.2) mg/dl Est Cr Clr Drug Dosing ml/min Est GFR ( Amer) ml/min Est GFR (Non-Af Amer) ml/min BUN/Creatinine Ratio (10-20) Glucose (70-99(Fasting)) mg/dl POC Glucose 111 H 93 (70-99) mg/dl Estimat Average Glucose mg/dl Hemoglobin A1c (4.5-5.6) % Lactate (0.4-2.0) mmol/L Calcium (8.6-10.3) mg/dl Phosphorus (2.5-4.9) mg/dl Magnesium (1.7-2.4) mg/dl Total Bilirubin (0.2-1.0) mg/dl AST (13-39) U/L ALT (7-52) U/L Alkaline Phosphatase (34-104) U/L Total Protein (6.0-8.3) gm/dl Albumin (3.4-5.0) gm/dl Globulin (2.5-4.0) gm/dl Albumin/Globulin Ratio (0.9-2) Lipase (11-82) U/L Urine Color Urine Appearance (Clear) Urine pH (4.5-7.5) Ur Specific [place] (1.000-1.030) Urine Protein (Negative) Urine Glucose (UA) (Negative) Urine Ketones (Negative) Urine Blood (Negative) Urine Nitrite (Negative) Urine Bilirubin (Negative) Urine Urobilinogen (Negative) Ur Leukocyte Esterase (Negative) Stool Occult Bld Scrn (Negative) Stl C. cayetanensis PCR Stool Rotavirus A PCR Stl Adenov F 40/41 PCR Stool Astrovirus (PCR) Stool Campylobacter PCR Stl C. diff Tox B Gene (Neg) Stool Cryptosporidium PCR Stl E.coli Shiga Tox PCR Stool E coli O157 PCR Stl Enterotoxigenic E PCR Stool EPEC (PCR) Stool EAEC (PCR) Stl E. histolytica PCR Stool Giardia Lamblia PCR Stool Salmonella PCR Stool Sapovirus (PCR) Stl P. shigelloides PCR Stl Shigella/EIEC PCR St Y.enterocolitica PCR Stool Vibrio (PCR) Stl Vibrio cholerae PCR Stl Norovirus GI/GII PCR SARS-CoV-2, RNA, NAAT (NEGATIVE)
[2023-04-10] MEDS ORDERED: oxyCODONE HCL IR 5 MG TAB (IMMEDIATE RELEASE) PO PRN (14:02)
[2023-04-10] MEDS: CIPROFLOXACIN / D5W 400 MG/200 ML BAG IV SCH (14:44)
[2023-04-10] MEDS: metroNIDAZOLE 500 MG/100 ML BAG IV SCH ×2 (14:44→22:11)
[2023-04-10] MEDS: oxyCODONE HCL IR 5 MG TAB (IMMEDIATE RELEASE) PO SCH ×2 (14:46→20:43)
[2023-04-10] MEDS: LACTATED RINGER'S 1,000 ML IV SCH ×2 (14:56→23:00)
[2023-04-11] MEDS: oxyCODONE HCL IR 5 MG TAB (IMMEDIATE RELEASE) PO SCH ×4 (02:43→20:54)
[2023-04-11] MEDS: ONDANSETRON INJ 2 MG/ML 2 ML VIAL IV SCH ×4 (02:44→20:53)
[2023-04-11] MEDS: CIPROFLOXACIN / D5W 400 MG/200 ML BAG IV SCH ×2 (02:46→13:51)
[2023-04-11 03:57] LABS: A calco-baum cmplx NotReported Not Detected (NotDetected); Bact fragilis Not Reported Not Detected (NotDetected); C auris Not Reported Not Detected (NotDetected); Calbicans Not Reported Not Detected (NotDetected); Candida glabrata Not Reported Not Detected (NotDetected); Candida krusei Not Reported Not Detected (NotDetected); Cneoformans/gatti Not Reported Not Detected (NotDetected); Cparapsilosis Not Reported Not Detected (NotDetected); Ctropicalis Not Reported Not Detected (NotDetected); E cloacae compx Not Reported Not Detected (NotDetected); Efaecalis Not Reported Not Detected (NotDetected); Efaecium Not Reported Not Detected (NotDetected); Enterobacterales Not Reported Not Detected (NotDetected); Escherichia coli Not Reported Not Detected (NotDetected); H influenzae Not Reported Not Detected (NotDetected); K aerogenes Not Reported Not Detected (NotDetected); Koxytoca Not Reported Not Detected (NotDetected); Kpneumoniae grp Not Reported Not Detected (NotDetected); Lmonocyt Not Reported Not Detected (NotDetected); N meningitidis Not Reported Not Detected (NotDetected); P aeruginosa Not Reported Not Detected (NotDetected); Proteus spp Not Reported Not Detected (NotDetected); Salmonella spp Not Reported Not Detected (NotDetected); Smarcescens Not Reported Not Detected (NotDetected); Staph lugdunensis Not Reported Not Detected (NotDetected); Staph spp. Not Reported Not Detected (NotDetected); Staphaureus Not Reported Not Detected (NotDetected); Staphepi Not Reported Not Detected (NotDetected); Stenmaltophilia Not Reported Not Detected (NotDetected); Strep agal(GrpB) Not Reported Not Detected (NotDetected); Strep pneum Not Reported Not Detected (NotDetected); Strep pyog (GrpA) Not Reported Not Detected (NotDetected); Strep spp Not Reported Not Detected (NotDetected)
[2023-04-11] MEDS: LEVOTHYROXINE SODIUM 75 MCG TABLET PO SCH (05:31)
[2023-04-11] MEDS: ACETAMINOPHEN 500 MG TAB PO SCH ×3 (05:31→22:22)
[2023-04-11] MEDS: metroNIDAZOLE 500 MG/100 ML BAG IV SCH ×3 (05:32→22:21)
--- NOTE | 2023-04-11 07:33 | Hospitalist Progress Note ---
Date of Service April 11, 2023 Assessment & Plan (1) Intractable abdominal pain: (2) Non-specific colitis: (3) History of pulmonary embolism: (4) CAD (coronary artery disease): (5) Hyperlipidemia: (6) Diabetes mellitus, type 2: (7) Hx of Clostridium difficile infection: (8) Hypertension: (9) Anxiety: Plan Patient is a 73 yr old female presents with intractable persistent abdominal pain x3 weeks. 2 abdominal and pelvic CTs negative; CT on admission with nonspecific colitis of the sigmoid colon. Colitis: + FOBT but no significant blood per rectum this admission and H/H normal at 13.1/37.7 Ozempic considered as a contributing factor to pain via gastroparesis, however, patient denies any side effects and is taking full strength Ozempic. She is tolerating food and her main complaint although there is nausea, is the severe pain. --CT ABD:There is evidence of a nonspecific colitis of the sigmoid colon. Correlate clinically. Colonic diverticulosis without CT evidence of acute diverticulitis. Left-sided nephrolithiasis. Cardiomegaly. -- Stool studies negative for C. difficile --Stool PCR negative --Blood Cx: Negative to date EGD/Colonoscopy as per GI as outpatient which was previously planned. Received IV fluids which seemed to help as she described vomiting and diarrhea prior to arrival-->colitis was felt to be ischemic in nature. Given the h/o c diff and nontoxic appearance without leukocytosis, held off on antibiotics initially. She is now tolerating solid food reliably but still reports persistent severe pain requiring IV narcotics. SHe does have a h/o opioid misuse and at one point was found in her neighborhood walking around confused; medical history also reveals h/o being found with a fentanyl patch in her mouth. So giving IV narcotics should be done with caution. I do believe she is having pain and her distribution of pain is the same as a few days ago. Will cont with APAP and narcotics as needed for pain, start IV hydration again, and will start an empiric trial of Cipro and Flagyl Surgery has signed off. Given she sees [facility] as [place], appreciate ongoing thoughts on her colitis picture with consideration for repeat imaging as needed. H/O PE/DVT: Continue Eliquis CAD: chronic, stable. s/p AMI 2017 Continue aspirin, statin, metoprolol DM II Hold home regimen:Metformin and Ozempic HbA1c 5.7 Continue insulin while hospitalized HTN: Continue metoprolol Metoprolol HFpEF: euvolemic. Resume Furosemide, Aldactone as able. Hold for now while rehydrating with IVF. HLD: chronic, stable. Continue Atorvastatin Anxiety (patient denies depression): Continue Buspar h/o chronic VTE: Cont Eliquis per home regimen. DVT proph: apixaban Code Status: Full Code Dispo-home pending improvement in her pain. Nanda Manning DO [facility] Hospitalist Admission and Anticipated Discharge Date Admission Date: April 06, 2023 Subjective 73 yo F with approximately 1 month of acute left lower abdominal pain today she appears more comfortable and is able to sit up in bed and move around with ease She reports that she wants to go home despite her Pain is not controlled. She does state that she felt better with the IV fluids overnight and the mucousy diarrhea resolved with the addition of the antibiotics, however her pain is still significant. She is comfortable having a reevaluation by GI and potentially going home tomorrow in time to prep for her colonoscopy and EGD scheduled for Thursday with Dr. Lechuga. I did contact Dr. Pratt who is on-call and he will see her today or tomorrow. Review of Systems Review of Systems: All systems were reviewed and negative except as indicated on HPI above. Physical Exam Physical Exam: CONSTITUTIONAL: WNWD, vitals as above, generally appears uncomfortable. EYES: normal conjunctivae, no scleral icterus ENT: external ear and nose normal, MMM NECK: trachea midline RESPIRATORY: clear to auscultation bilaterally, no crackles, rales or wheezes, normal respiratory effort CARDIOVASCULAR: regular rate and rhythm, S1 and 2 heard without murmurs, gallops or rubs, no JVD, no peripheral edema CHEST: inspection of chest was normal GASTROINTESTINAL: soft, TTP in left abdomen>suprapubic>epigastric region, nondistended, +voluntary guarding. MUSCULOSKELETAL: strength 5/5 throughout, head is normocephalic and atraumatic SKIN: warm and dry NEUROLOGIC: CN 2-12 grossly intact, no sensory deficit, normal cognition, normal speech, no tremor PSYCHIATRIC: alert cooperative and oriented to person, place and time. Euthymic mood, makes good eye contact, language grossly intact, recent and remote memory grossly intact. Results & Data Results & Data Vital Signs (Past 12 Hours) Vital Signs Temp Pulse Resp BP Pulse Ox O2 Del Method 04/11/23 04:00 36.6 C 72 18 151/88 H 95 Room Air 04/10/23 23:09 36.7 C 76 18 134/49 L 94 Room Air 04/10/23 22:29 Room Air 04/10/23 19:36 36.6 C 77 18 129/78 95 Room Air Medications Administered Current Inpatient Medications Acetaminophen (Acetaminophen 500 Mg Tab) 1,000 mg PO Q8 [facility] Stop: 05/06/23 20:14 Last Admin: 04/11/23 05:31 Dose: 1,000 mg Al Hydrox/Mg Hydrox/Simethicone (Aluminum/Magnesium Susp 30 Ml Udc) 15 ml PO Q4H PRN PRN Reason: Dyspepsia Stop: 05/06/23 15:14 Apixaban (Apixaban 5 Mg Tablet) 5 mg PO BID [facility] Stop: 05/06/23 20:59 Last Admin: 04/10/23 21:35 Dose: 5 mg Aspirin (Aspirin 81 Mg Ectab) 81 mg PO QAM [facility] Stop: 05/07/23 08:59 Last Admin: 04/10/23 08:15 Dose: 81 mg Atorvastatin Calcium (Atorvastatin 40 Mg Tab) 40 mg PO QAM [facility] Stop: 05/07/23 08:59 Last Admin: 04/10/23 08:16 Dose: 40 mg Buspirone HCl (Buspirone 5 Mg Tab) 10 mg PO BID [facility] Stop: 05/06/23 20:59 Last Admin: 04/10/23 21:34 Dose: 10 mg Dextrose (Dextrose 50% 50 Ml Syringe) 25 - 50 ml IV UD PRN; Protocol PRN Reason: Hypoglycemia Protocol Stop: 05/06/23 17:24 Furosemide (Furosemide 40 Mg Tab) 40 mg PO QAM [facility] Stop: 05/07/23 08:59 Glucagon (Glucagon For Inj 1 Mg Vial) 1 mg SQ UD PRN; Protocol PRN Reason: Hypoglycemia Protocol Stop: 05/06/23 17:24 Glucose (Glucose 10 Tab/Tube) 4 - 8 tab PO UD PRN; Protocol PRN Reason: Hypoglycemia Treatment Stop: 05/06/23 17:24 Glucose (Glucose 40% Gel 15 Gm Tube) 15 - 30 gm PO UD PRN; Protocol PRN Reason: Hypoglycemia Protocol Stop: 05/06/23 17:24 Heparin Sodium (Porcine) (Heparin 100 Unit/Ml 5ml Flush) 5 ml FLUSH PRN PRN PRN Reason: Flush Stop: 05/07/23 23:56 Last Admin: 04/11/23 07:01 Dose: 5 ml Ciprofloxacin (Cipro / D5w) 400 mg in 200 mls @ 100 mls/hr IV Q12H [facility]; Protocol Stop: 04/20/23 14:14 Last Infusion: 04/11/23 04:50 Dose: Infused Metronidazole (Flagyl) 500 mg in 100 mls @ 100 mls/hr IV Q8H [facility]; Protocol Stop: 04/20/23 14:14 Last Infusion: 04/11/23 06:33 Dose: Infused Insulin Aspart (Insulin Aspart Per Unit Charge) 0 units SC ACHS [facility] Stop: 05/07/23 11:29 Last Admin: 04/10/23 20:43 Dose: 2 units Levothyroxine Sodium (Levothyroxine Sodium 75 Mcg Tablet) 75 mcg PO DAILYBB [facility] Stop: 05/07/23 06:29 Last Admin: 04/11/23 05:31 Dose: 75 mcg Magnesium Hydroxide (Magnesium Hydroxide Susp 30 Ml Udc) 30 ml PO Q12H PRN PRN Reason: Constipation Stop: 05/06/23 15:14 Magnesium Oxide (Magnesium Oxide 400 Mg Tab) 400 mg PO BID [facility] Stop: 05/10/23 09:14 Last Admin: 04/10/23 21:34 Dose: 400 mg Metoprolol Succinate (Metoprolol Succ 50mg Ext Rel Tab) 100 mg PO QAM [facility] Stop: 05/07/23 08:59 Last Admin: 04/10/23 08:15 Dose: 100 mg Miscellaneous (Carbohydrates For Hypoglycemia ) 15 - 30 gm PO UD PRN PRN Reason: Hypoglycemia Protocol Stop: 05/06/23 17:24 Ondansetron HCl (Ondansetron Inj 2 Mg/Ml 2 Ml Vial) 4 mg IV Q6H [facility] Stop: 05/06/23 15:29 Last Admin: 04/11/23 02:44 Dose: 4 mg Oxycodone HCl (Oxycodone Hcl Ir 5 Mg Tab (Immediate Release)) 5 mg PO Q6H [facility] Stop: 04/24/23 14:14 Last Admin: 04/11/23 02:43 Dose: 5 mg Oxycodone HCl (Oxycodone Hcl Ir 5 Mg Tab (Immediate Release)) 5 mg PO Q6H PRN PRN Reason: severe breakthrough pain Stop: 04/24/23 14:01 Promethazine HCl (Promethazine Hcl 25 Mg Tab) 25 mg PO Q6H PRN PRN Reason: Nausea And Vomiting Stop: 05/10/23 11:16 Last Admin: 04/10/23 12:25 Dose: 25 mg Spironolactone (Spironolactone 25 Mg Tab) 25 mg PO [facility] Stop: 05/07/23 08:59
[2023-04-11] MEDS: INSULIN ASPART PER UNIT CHARGE SC SCH ×4 (08:40→20:54)
[2023-04-11] MEDS: APIXABAN 5 MG TABLET PO SCH ×2 (08:42→20:53)
[2023-04-11] MEDS: busPIRone 5 MG TAB PO SCH ×2 (08:42→20:53)
[2023-04-11] MEDS: MAGNESIUM OXIDE 400 MG TAB PO SCH ×2 (08:43→20:53)
[2023-04-11] MEDS: METOPROLOL SUCC 50MG EXT REL TAB PO SCH (09:35)
[2023-04-11] MEDS: ASPIRIN 81 MG ECTAB PO SCH (09:35)
[2023-04-11] MEDS: ATORVASTATIN 40 MG TAB PO SCH (09:35)
[2023-04-11] MEDS ORDERED: SODIUM CHLORIDE 0.9% 1000ML 1,000 ML IV SCH (17:30)
[2023-04-12] MEDS ORDERED: SODIUM CHLORIDE 0.9% 1000ML 1,000 ML IV ONE (00:14)
[2023-04-12] MEDS ORDERED: METOPROLOL SUCC 50MG EXT REL TAB PO SCH (01:20)
[2023-04-12] MEDS: oxyCODONE HCL IR 5 MG TAB (IMMEDIATE RELEASE) PO SCH ×2 (02:24→08:22)
[2023-04-12] MEDS: CIPROFLOXACIN / D5W 400 MG/200 ML BAG IV SCH (02:24)
[2023-04-12] MEDS: ONDANSETRON INJ 2 MG/ML 2 ML VIAL IV SCH ×2 (03:55→09:38)
[2023-04-12] MEDS: ACETAMINOPHEN 500 MG TAB PO SCH (06:01)
[2023-04-12] MEDS: LEVOTHYROXINE SODIUM 75 MCG TABLET PO SCH (06:01)
[2023-04-12] MEDS: metroNIDAZOLE 500 MG/100 ML BAG IV SCH (06:04)
[2023-04-12] MEDS: INSULIN ASPART PER UNIT CHARGE SC SCH (08:21)
[2023-04-12] MEDS: MAGNESIUM OXIDE 400 MG TAB PO SCH (08:23)
[2023-04-12] MEDS: APIXABAN 5 MG TABLET PO SCH (08:23)
[2023-04-12] MEDS: busPIRone 5 MG TAB PO SCH (08:23)
[2023-04-12] MEDS: ASPIRIN 81 MG ECTAB PO SCH (08:23)
[2023-04-12] MEDS: ATORVASTATIN 40 MG TAB PO SCH (08:23)
--- NOTE | 2023-04-12 08:23 | Gastroenterology Progress Note ---
Date of Service April 12, 2023 Assessment & Plan (1) Intractable abdominal pain: Plan: I have nothing to add at this time. She needs to have her EGD and colonoscopy done whether as inpatient or outpatient. She is on schedule for tomorrow and is ready to go home to do prep because she "doesn't want to take the chance insurance won't cover it". I suspect they will but she is more comfortable going home just in case. Admission and Anticipated Discharge Date Admission Date: April 06, [address] Manning to come check on Mrs. Lua because of her continued abdominal pain. She tells me it has not changed at all. She is scheduled for EGD and colonoscopy tomorrow and is going home to do the prep and returning for procedure as outpatient because of potential issues with insurance coverage. Physical Exam Physical Exam: She looks well Results & Data Vital Signs (Past 12 Hours) Vital Signs Temp Pulse Resp BP BP Pulse Ox O2 Del Method 04/12/23 07:17 36.6 C 69 16 183/93 H 96 Room Air 04/12/23 07:32 Room Air 04/12/23 03:12 36.6 C 72 18 175/84 H 97 Room Air 04/12/23 01:10 187/98 H 04/11/23 23:38 177/92 H 04/11/23 23:28 36.6 C 72 18 182/110 H 96 Room Air 04/11/23 22:01 Room Air
--- NOTE | 2023-04-12 13:58 | Discharge Summary ---
Date of Service April 12, 2023 Admission HPI Per Admitting Provider Ms. Lua presented to the [facility] today with abdominal pain and worsening diarrhea that has been persistent for the past 3 weeks. She reports 15-20 episodes of diarrhea with hematochezia over the past 24 hours. Additionally, she has had nausea and vomiting. No episodes of vomiting since she has arrived to the ED. She has visited the ED a few times over the past month. She has had two Abdominal/Pelvic CT's that have been negative. Today, an abd/pelvic CT was obtained with evidence of a nonspecific colitis of the sigmoid colon. Colonic diverticulosis without CT evidence of acute diverticulitis. Left-sided ne phrolithiasis, no ischemia noted. She reports having fluctuation between constipation and diarrhea over the past few weeks to a month. She is scheduled for an EGD next week. She did have a colonoscopy about 4 years ago which was unremarkable. No family history that includes any IBD or colon CA. She does have a history of C. difficile infection over the past few years. She has had 4 doses of IV morphine since arrival to the ED; will switch to Dilaudid. On exam left lower quadrant tenderness without radiation. Afebrile and does not appear toxic. Hemodynamically stable on room air. No leukocytosis WBC 9.40, otherwise labs unremarkable. Past medical history includes history of DVT and pulmonary embolism in 2015 (on Eliquis), both appear to be spontaneous but she reports it occured around when she had an AMI, but that is documented to be 2016. Additional PMH includes C. difficile infection, HTN, HLD, hypothyroidism, noninsulin-dependent diabetic, HFpEF, and depression. She has a left upper chest wall port from history of cyclic vomiting syndrome. This patient has been experiencing the symptoms for nearly a month would appreciate general surgery and GI weigh in. Patient will be admitted for further evaluation and management. Please see A/P for further details. Admission Exam Per Admitting Provider Neuro: AAOx4, PERRLA, no aphagia, memory changes, CNII-XII grossly intact HEENT: head normocephalic, moist mucus membranes CV: S1/S2, (-) M/G/R, (-) edema, cap refill < 3 seconds Resp: Lungs CTA in all linares. On RA GI: Abdomen soft, + tenderness LLQ without radiation, Ax4 bowel sounds, (-) CVA tenderness Musculoskeletal: 5/5 B/L UE strength, 5/5 B/L LE strength. No gait disturbance Skin: (-) rashes , (-) erythema. Psych: euthymic mood Principal Diagnosis Intractable abdominal pain Discharge Exam General: Lying comfortably in bed, not in distress, on room air HEENT: EOMI, KIMMY, MMM Chest: Clear breath sounds bilaterally, no wheezes or crackles CVS: Regular rate and rhythm, normal heart sounds, no murmur Abdomen: Soft, tender left abd, not distended, normal bowel sounds Neuro: Awake, alert, oriented, conversing well, non focal Extremities: No cyanosis, clubbing or edema Discharge Data Allergies Allergy/AdvReac Type Severity Reaction Status Date / Time latex Allergy Intermediate Rash Verified 04/06/23 14:48 nickel Allergy Intermediate SEVERE Verified 04/06/23 14:48 DERMATITIS NSAIDS (Non-Steroidal Allergy Intermediate HX OF Verified 04/06/23 14:48 Anti-Inflamma BLEEDING ULCERS-TO AVOID adhesive tape AdvReac Intermediate SKIN Verified 04/06/23 14:48 IRRITATION aspirin AdvReac Intermediate full dose Verified 04/06/23 14:48 asa -> bleeding ulcers Consultations 04/06/23 15:09 ED Decision to Admit Stat 04/06/23 15:13 Consult General Surgery Stat 04/06/23 15:15 Consult Gastroenterology Routine Ordered Studies 04/06/23 12:11 CT abd pelvis IV con only Stat Laboratory Results WBC 7.43 K/ul (4.8-10.8) 04/10/23 05:29 RBC 4.11 M/uL (4.20-5.40) L 04/10/23 05:29 Hgb 13.1 g/dl (12.0-16.0) 04/10/23 05:29 Hct 37.7 % (37.0-47.0) 04/10/23 05:29 MCV 91.7 fL (80.0-100.0) 04/10/23 05:29 MCH 31.9 pg (25.0-34.0) 04/10/23 05:29 MCHC 34.7 g/dL (32.0-36.0) 04/10/23 05:29 RDW Std Deviation 44.6 fL (36.4-46.3) 04/10/23 05:29 RDW Coeff of [place] 13.2 % (11.5-14.5) 04/10/23 05:29 Plt Count 273 K/uL (130-400) 04/10/23 05:29 MPV 9.7 fL (9.4-12.4) 04/10/23 05:29 Immature Gran % (Auto) 0.2 % 04/06/23 09:30 Neut % (Auto) 63.1 % 04/06/23 09:30 Lymph % (Auto) 25.7 % 04/06/23 09:30 [place] % (Auto) 9.3 % 04/06/23 09:30 Eos % (Auto) 1.4 % 04/06/23 09:30 Baso % (Auto) 0.3 % 04/06/23 09:30 Neut # (Auto) 5.93 K/uL (1.40-6.50) 04/06/23 09:30 Lymph # (Auto) 2.42 K/uL (1.2-3.4) 04/06/23 09:30 [place] # (Auto) 0.87 K/uL (0.11-0.59) H 04/06/23 09:30 Eos # (Auto) 0.13 K/uL (0-0.50) 04/06/23 09:30 Baso # (Auto) 0.03 K/uL (0-0.2) 04/06/23 09:30 Immature Gran # (Auto) 0.02 K/uL (0.01-0.20) 04/06/23 09:30 Sodium 139 mmol/L (136-145) 04/10/23 05:29 Potassium 3.8 mmol/L (3.5-5.1) 04/10/23 05:29 Chloride 106 mmol/L (98-107) 04/10/23 05:29 Carbon Dioxide 27 mmol/L (21-32) 04/10/23 05:29 Anion Gap 6 (3-11) 04/10/23 05:29 BUN 8 mg/dl (6-23) 04/10/23 05:29 Creatinine 0.78 mg/dl (0.6-1.2) 04/10/23 05:29 Est Cr Clr Drug Dosing 65.9 ml/min 04/10/23 05:29 Est GFR ( Amer) 86.2 ml/min 04/10/23 05:29 Est GFR (Non-Af Amer) 74.4 ml/min 04/10/23 05:29 BUN/Creatinine Ratio 10.3 (10-20) 04/10/23 05:29 Glucose 93 mg/dl (70-99(Fasting)) 04/10/23 05:29 POC Glucose 99 mg/dl (70-99) 04/12/23 07:46 Estimat Average Glucose 117 mg/dl 04/07/23 05:39 Hemoglobin A1c 5.7 % (4.5-5.6) H 04/07/23 05:39 Lactate 0.9 mmol/L (0.4-2.0) 04/06/23 17:19 Calcium 8.6 mg/dl (8.6-10.3) 04/10/23 05:29 Phosphorus 3.4 mg/dl (2.5-4.9) 04/07/23 05:39 Magnesium 1.7 mg/dl (1.7-2.4) 04/10/23 05:29 Total Bilirubin 1.0 mg/dl (0.2-1.0) 04/06/23 09:30 AST 17 U/L (13-39) 04/06/23 09:30 ALT 17 U/L (7-52) 04/06/23 09:30 Alkaline Phosphatase 67 U/L (34-104) 04/06/23 09:30 Total Protein 6.6 gm/dl (6.0-8.3) 04/06/23 09:30 Albumin 4.1 gm/dl (3.4-5.0) 04/06/23 09:30 Globulin 2.5 gm/dl (2.5-4.0) 04/06/23 09:30 Albumin/Globulin Ratio 1.6 (0.9-2) 04/06/23 09:30 Lipase 25 U/L (11-82) 04/06/23 09:30 Urine Color Yellow 04/06/23 20:30 Urine Appearance Clear (Clear) 04/06/23 20:30 Urine pH 6.5 (4.5-7.5) 04/06/23 20:30 Ur Specific [place] > 1.045 (1.000-1.030) H 04/06/23 20:30 Urine Protein Negative (Negative) 04/06/23 20:30 Urine Glucose (UA) Negative (Negative) 04/06/23 20:30 Urine Ketones Trace (Negative) H 04/06/23 20:30 Urine Blood Negative (Negative) 04/06/23 20:30 Urine Nitrite Negative (Negative) 04/06/23 20:30 Urine Bilirubin Negative (Negative) 04/06/23 20:30 Urine Urobilinogen Negative (Negative) 04/06/23 20:30 Ur Leukocyte Esterase Negative (Negative) 04/06/23 20:30 Stool Occult Bld Scrn Positive (Negative) A 04/07/23 13:55 Stl C. cayetanensis PCR Not Detected (NotDetected) 04/09/23 Unknown Stool Rotavirus A PCR Not Detected (NotDetected) 04/09/23 Unknown Stl Adenov F 40/41 PCR Not Detected (NotDetected) 04/09/23 Unknown Stool Astrovirus (PCR) Not Detected (NotDetected) 04/09/23 Unknown Stool Campylobacter PCR Not Detected (NotDetected) 04/09/23 Unknown Stl C. diff Tox B Gene Negative Cdiff Gene (Neg) 04/07/23 13:55 Stool Cryptosporidium PCR Not Detected (NotDetected) 04/09/23 Unknown Stl E.coli Shiga Tox PCR Not Detected (NotDetected) 04/09/23 Unknown Stool E coli O157 PCR Cancelled 04/07/23 13:55 Stl Enterotoxigenic E PCR Not Detected (NotDetected) 04/09/23 Unknown Stool EPEC (PCR) Not Detected (NotDetected) 04/09/23 Unknown Stool EAEC (PCR) Not Detected (NotDetected) 04/09/23 Unknown Stl E. histolytica PCR Not Detected (NotDetected) 04/09/23 Unknown Stool Giardia Lamblia PCR Not Detected (NotDetected) 04/09/23 Unknown Stool Salmonella PCR Not Detected (NotDetected) 04/09/23 Unknown Stool Sapovirus (PCR) Not Detected (NotDetected) 04/09/23 Unknown Stl P. shigelloides PCR Not Detected (NotDetected) 04/09/23 Unknown Stl Shigella/EIEC PCR Not Detected (NotDetected) 04/09/[address].enterocolitica PCR Not Detected (NotDetected) 04/09/23 Unknown Stool Vibrio (PCR) Not Detected (NotDetected) 04/09/23 Unknown Stl Vibrio cholerae PCR Not Detected (NotDetected) 04/09/23 Unknown Stl Norovirus GI/GII PCR Not Detected (NotDetected) 04/09/23 Unknown SARS-CoV-2, RNA, NAAT NEGATIVE (NEGATIVE) 04/06/23 15:15 Bld Cult ID Panel PCR PCR Panel Negative (NotDetected) 04/06/23 17:19 Impressions Chest/Abdomen X-ray 04/06/23 09:06 PA CHEST RADIOGRAPH AND UPRIGHT AND SUPINE AP RADIOGRAPHS OF THE ABDOMEN CLINICAL HISTORY: Persistent left lower quadrant pain. COMPARISON STUDY: Chest radiograph January 26, [address] of the abdomen and pelvis March 23, 2023. FINDINGS: Left subclavian [id number]-[id number]-Nyta is in place. No pneumothorax or pleural effusion is present. Linear left basilar opacity favors atelectasis or scarring. There is no consolidation to suggest pneumonia. No evidence for pulmonary edema. No free air. Pelvic calcifications represent phleboliths. There is no radiographic evidence for a bowel obstruction. Bilateral SI joint fusions are incidentally noted. S-shaped scoliosis of the thoracolumbar spine. IMPRESSION: 1. No free air or evidence for a bowel obstruction. 2. No acute cardiopulmonary findings. ACT 112: Negative or not required by law. Electronically signed by: Gonsalo Villafana M.D. 04/06/2023 12:50 PM Abdomen/Pelvis CT 04/06/23 12:11 CT SCAN OF THE ABDOMEN AND PELVIS WITH IV CONTRAST CLINICAL HISTORY: Generalized abdominal pain. Nausea and vomiting. COMPARISON STUDY: Abdominal CT dated 03/23/2023 TECHNIQUE: Following the IV administration of 95 cc of Optiray 320, CT scan of the abdomen and pelvis is performed from the lung bases to the proximal femora. Images are reviewed in the axial, sagittal, and coronal planes. IV contrast was administered without complication. A dose lowering technique was utilized adhering to the principles of ALARA. CT DOSE: 1247.48 mGy.cm FINDINGS: Lung bases: The heart is enlarged and without pericardial effusion. The lung bases are clear noting bibasilar scarring/atelectasis. There is a small hiatal hernia. There is ectasia of the visualized ascending thoracic aorta. This measures up to 3.9 cm in diameter. Liver: The contrast-enhanced liver is normal in size, contour, and attenuation. There is no intrahepatic biliary ductal dilatation. The hepatic veins and portal veins are patent. Gallbladder: Unremarkable. Spleen: Normal in size and attenuation. A 9 mm hypervascular lesion in the spleen on image #52 is unchanged and statistically of doubtful significance. Pancreas: Unremarkable. Adrenal glands: Unremarkable. Kidneys: The contrast enhanced kidneys are normal in size and without hydronephrosis. The kidneys enhance symmetrically. There are at least 2 nonobstructing left renal calculi which measure up to 4 mm. Scattered subcen timeter cortical hypodensities likely represent cysts but are too small for definitive characterization. A circumaortic left renal vein is incidentally noted. Abdominal vasculature: The abdominal aorta is normal in course and caliber noting moderate to advanced atherosclerotic calcification. Bowel: There is mild colonic diverticulosis without CT evidence of acute diverticulitis. No bowel obstruction is seen. The appendix is surgically absent. There is there is wall thickening and edema with mucosal hyperemia involving the sigmoid colon. Mild surrounding infiltration is observed. The more proximal colon is normal in appearance. The mesenteric vessels are widely patent. Peritoneum: There is no intraperitoneal free air or abdominal ascites. Lymphadenopathy: None. Pelvic viscera: Uterine fibroids are suggested. The bladder is normal as imaged. No adnexal lesion is seen. Calcified granulomas are noted in the gluteal soft tissues. Skeletal structures: The skeletal structures are osteopenic. There is advanced lumbosacral spondylosis and scoliosis. Extensive postsurgical change is seen throughout the imaged thoracolumbar spine. Bilateral iliac bolts are in place. Sclerotic change is noted in the sacroiliac joints with chronic erosions suggesting chronic sacroiliitis. No lytic or blastic lesions are seen. There is chronic deformity of the left-sided ribs. IMPRESSION: 1. There is evidence of a nonspecific colitis of the sigmoid colon. Correlate clinically. 2. Colonic diverticulosis without CT evidence of acute diverticulitis. 3. Left-sided nephrolithiasis. 4. Cardiomegaly. 5. Additional findings as above. ACT 112: Negative or not required by law. Electronically signed by: Ivan Smith M.D. 04/06/2023 2:31 PM KUB X-Ray 04/08/23 10:12 KUB CLINICAL HISTORY: Colitis, severe intractable pain, guarding on exam COMPARISON STUDY: CT of the abdomen and pelvis April 06, 2023. FINDINGS: Incidental note is made of bilateral SI joint fusion. There is lumbar spine levoscoliosis. Postoperative findings within lumbar spine are present. There is no evidence for a bowel obstruction. Prominent gas-filled loop of bowel within the left mid abdomen likely reflects gas within the colon. No evidence for free air on supine exam. IMPRESSION: 1. No radiographic evidence for a bowel obstruction. 2. Prominent gas-filled loop of bowel within the left mid abdomen which likely reflects gas within the colon. ACT 112: Negative or not required by law. Electronically signed by: Gonsalo Villafana M.D. 04/08/2023 11:45 AM Hospital Course (1) Intractable abdominal pain: (2) Non-specific colitis: (3) History of pulmonary embolism: (4) CAD (coronary artery disease): (5) Hyperlipidemia: (6) Diabetes mellitus, type 2: (7) Hx of Clostridium difficile infection: (8) Hypertension: (9) Anxiety: Plan Patient is a 73 yr old female presents with intractable persistent abdominal pain x3 weeks. 2 abdominal and pelvic CTs negative; CT on admission with nonspecific colitis of the sigmoid colon. Sttol clx negative, GI biofire negative. She was seen by surgery who did not recommend any surgical intervention. She was seen by GI and recommended EGD/colonoscopy. Patient however has this set up for tomorrow as OP- she did not want to get it done inhouse due to concern for not being covered by insurance and requested to be discharged so she can get it done tomorrow as OP as scheduled. She has improved from admission and tolerating diet without N/V. She is coke still cleaner on left side. She was empirically started on cipro/flagyl on 04/10 and states that might have helped her. Her blood clx from admission 04/06 grew GBP in 1/4 bottles on day 5, repeat blood clx from 04/11 has been negative at 24 hours. Since patient was requesting discharge, I spoke to microbiology who stated it was pin point growth in anerobic bottle and likely a contamination and may not be able to identify further. Patient has remained afebrile and hemodynamically stable. However, given her improvement in symptoms and in absence of final clx results, will discharge on empiric cipro/flagyl for 5 more days. She has h/o C diff but last episode was more than 6 years ago. Discharging on 10 pills of oxycodone for pain- PDMP reviewed- no red flag signs. She had already received her eliquis this morning- recommended to hold further dose and let his GI doctor know tomorrow prior to procedure, as per GI recommendation. Resume after procedure as per GI. Colitis- As above Positive blood clx- Blood clx 04/06 with GPB in 1/4 bottles, repeat blood clx 04/11 negative. As above H/O PE/DVT: On Eliquis - to hold for EGD/Colonoscopy tomorrow CAD: chronic, stable. s/p AMI 2016; on aspirin, statin, metoprolol DM II- On Metformin and Ozempic; HbA1c 5.7 HTN: On metoprolol Chronic HFpEF: Euvolemic. To hold home diuretics tomorrow for GI procedure HLD: On Atorvastatin Anxiety (patient denies depression): On Buspar Total Time Total Time Spent Total Time Spent (In Minutes): 50 Discharge Plan Discharge Items Patient Disposition: Home - Self-Care Reason For Visit: INTRACTABLE ABDOMINAL PAIN Discharge Diagnosis: Abdominal pain Activity: Resume your previous activity Non-emergency contact: Primary Care Provider and Nutrition Services Aide Call non-emergency contact if: you have any medication questions, your symptoms worsen, your pain is not controlled and you have a fever Follow-up/Referrals: Svetlana Jacobs, DO [Primary Care Provider] - Diet: Carb Consistent or DM2 Addtl Attending Provider Instructions: PLEASE HOLD YOUR ELIQUIS and let the GI doctor tomorrow know that your last dose of Eliquis was today morning, which they will need to know in case they plan to do any biopsy. You can resume Eliquis when cleared by GI. We recommended you stay for EGD/colonoscopy inhouse however you would like to get it done as outpatient tomorrow due to concern for insurance issues. We also discussed about the positive blood culture from 04/06, which could be a contamination per microbiology who I discussed with. However, we will not know for sure until the results are final. We discussed about waiting for culture results with IV antibiotics, however since you would like to get discharged, we are giving you oral antibiotics just in case. This culture results will need to be followed upon closely with the family doctor to make sure it is not something serious. Pending Studies at Discharge: Yes Studies:: Final blood clx results Stand-Alone Forms: My [facility], Smoking Cessation Medications and DC Order Prescriptions: New metronidazole 500 mg tablet 500 mg PO TID 5 Days Qty: 15 0RF ciprofloxacin HCl [Cipro] 500 mg tablet 500 mg PO BID 5 Days Qty: 10 0RF oxycodone 5 mg Tablet 5 mg PO TID PRN (Reason: pain) 3 Days Qty: 10 0RF Continued ondansetron HCl 4 mg tablet 4 mg PO Q6 PRN (Reason: nausea) Qty: 15 0RF nitroglycerin [Nitrostat] 0.3 mg Tablet, Sublingual 0.3 mg sublingual UD PRN (Reason: Chest Pain) Rx Instructions: NEEDED FOR CHEST PAIN : ONE TABLET UNDER THE TONGUE EVERY 5 MINUTES UP TO 3 DOSES. olopatadine 0.2 % Drops 1 drp ophthalmic (eye) QAM epinephrine 0.3 mg/0.3 mL Syringe 0.3 mg IM Q3H PRN (Reason: Allergic Reaction) metformin 500 mg Tablet 500 mg PO BIDM furosemide 20 mg tablet 40 mg PO QAM Rx Instructions: may take additional dose as directed for edema. atorvastatin [Lipitor] 40 mg Tablet 40 mg PO QAM levothyroxine 75 mcg Tablet 75 mcg PO DAILYBB Rx Instructions: take before breakfast or other meds buspirone 10 mg tablet 10 mg PO BID polyethylene glycol 3350 17 gram Powder In Packet 17 g PO DAILY PRN (Reason: Constipation) promethazine 25 mg Tablet 25 mg PO Q6H PRN (Reason: Nausea) tizanidine 4 mg tablet 4 mg PO BID PRN (Reason: Muscle Spasm) trazodone 100 mg Tablet 300 mg PO HS loperamide 2 mg capsule 2 mg PO QID PRN (Reason: Diarrhea) metoprolol succinate 100 mg Tablet Extended Release 24 Hr 100 mg PO QAM spironolactone 25 mg Tablet 25 mg PO QAM Ozempic 2 mg/dose (8 mg/3 mL) Pen Injector 2 mg SUBCUT WK Rx Instructions: Thursday aspirin 81 mg Tablet,Delayed Release (Dr/Ec) 81 mg PO QAM Patient Comments: LAST DOSE YESTERDAY MORNING, STOP FOR SURGERY PER VICE PRESIDENT OF PROCUREMENT /HAVE INSTRUCTIONS ON WHEN TO RE START Held Eliquis 5 mg tablet 5 mg PO BID Hold Instructions: Resume on 04/14/23. Hold for the GI procedure tomorrow. resume when cleared by GI Patient Comments: LAST DOSE YESTERDAY MORNING , STOP FOR SURGERY PER VICE PRESIDENT OF PROCUREMENT /HAVE INSTRUCTIONS ON WHEN TO RE START. Discharge Orders: Discharge Order (Routine); Ordered 04/12/23 Ordered By: Slava Cesar Admission Data Admit Date/Time: 04/06/23 15:15 Attending Provider: Slava Cesar Admit Provider: Nanda Manning Primary Care Provider: Svetlana Jacobs Other Providers: Nanda Manning ; Abelardo Nieves ; Swapna Valdez Other Interventions: Discharge Summary Assessment (RN) Last Done: 04/12/23 11:18
== END 2023-04-12 12:13 | disposition home or self-care (01) | DRG 392 ==
LOC: ED 08:48 → 2N 15:15 → SUATTDRO 15:15 → 2N 17:56

== ENCOUNTER 2023-04-15 11:34 | Inpatient (IN) ==
--- NOTE | 2023-04-15 11:56 | Emergency Department Note ---
Impression & Plan Syncope, Acute dehydration, Diarrhea, Hypomagnesemia, Chronic back pain ED Provider Note NAME: JOVANNI DE SANTIAGO AGE: 73 SEX: F : 1950 ARRIVES VIA: Walk-In INFORMANT: Patient, ED PROVIDER(S): Oskar Corado MD CHIEF COMPLAINT: Syncope, lightheadedness, back pain MEDICAL DECISION MAKING: Patient presented due to concern for syncope headache and back pain. IV was established blood work is obtained. Clinically the patient does appear to be dehydrated was ordered IV fluids. Patient CT head cervical spine and lumbar thoracic spine are negative. The patient's blood work shows normal white count with mild anemia hemoglobin 11.7 with relatively normal electrolytes. Chloride of 109 likely incidental. Magnesium is low at 1.6. Urinalysis negative for blood or infection. COVID- negative. Given the patient's history of diuretic use but with diarrhea and prior hypotension last evening. The patient relates that her blood pressure was 70s over 50s and her associated syncope which may have been exacerbated by positional change do believe the patient would benefit from further monitoring and treatment and potential medication management. Upon reassessment the patient was having discomfort. The patient was ordered Ofirmev and Zofran. I initially had ordered an additional 500 of IV fluids but this was held given the patient's prior history of heart failure and diuretics use. Patient's weight is down about 1 kg since last being seen on 04/13. I did speak with the on-call hospitalist service Dr. Trevino and the patient was admitted to the medicine service Prior /Outside records reviewed: I did review a discharge summary from April [address] Cesar. Patient had presented for worsening abdominal pain vomiting and diarrhea. Patient does have a history of DVT PE on Eliquis C. difficile hypertension hyperlipidemia hypothyroidism heart failure with preserved ejection fraction. Patient did have a CT at that time which showed nonspecific colitis of the sigmoid colon no evidence of diverticulitis. Patient did have an EGD completed by Dr. Manzo on April 13. Patient was noted to have a medium sized hiatal hernia and gastritis. Patient did have a colonoscopy as well completed showed localized mild inflammation of the sigmoid colon a 5 mm polyp in the sigmoid colon which was resected and retrieved and diverticulosis. Differential diagnosis: Infection, dehydration, metabolic abnormality, hypo/hyperglycemia, electrolyte disturbance, anemia, hypoxia, cardiac sources, intracerebral event, toxicologic, neurologic, as well as other pathologies. Diagnostics, as interpreted by me: ECG: Normal sinus rhythm, rate of 64, normal intervals, left axis deviation, T wave inversions anteriorly without ST elevations. Patient's EKG is grossly unchanged from comparison EKG completed January 29, 2023 Cardiac monitoring: An order was placed for continuous cardiac monitoring. The monitor shows a rate of 67 with sinus rhythm. Patient was placed on pulse oximetry Medical decision rules: Ida head CT rule, Nexus rule Imaging studies: See below I informally reviewed the patient's CT of the head which showed no obvious ICH. HPI: Patient presents due to concern for weakness and associated syncope. The patient states that she had gotten up out of bed this morning and went to the sink and then she noticed herself to be on the floor. The patient does have associated back pain. Patient denies any chest pains or shortness of breath. Patient is unsure if she struck her head but does complain of some right-sided head pain. The patient does not use about 15 minutes went by. Patient's pain is reproducible. Patient has had associated diarrhea with bloody stools but this has been chronic in nature. Patient denies any cough or fever. No dysuria or hematuria. Patient denies any weakness to the lower extremities. PAST MEDICAL HISTORY: See Below PAST SURGICAL HISTORY: See Below SOCIAL HISTORY: See Below HOME MEDICATIONS: See Below ALLERGIES: See Below VITALS: See Below PHYSICAL EXAMINATION: GENERAL: NAD, non-toxic. EYE EXAM: Normal conjunctiva. PERRL, no anisocoria and EOM's grossly intact w/o pain. Head: No obvious trauma noted at the head. NECK: Supple, no nuchal rigidity, no adenopathy, non-tender. No signs of meningismus. FROM of the neck with good chin to chest and neck extension. No stridor. No midline C-spine TTP LUNGS: Clear to auscultation. Normal chest wall mechanics. HEART: NSR, no MRG. ABDOMEN: Abdomen soft, non-tender, no masses, no rebound or guarding. BACK: To lower thoracic pain without overlying skin changes, or midline pain without overlying skin changes or step-offs. SKIN: No rashes and no bruising. UPPER EXTREMITIES: Upper extremities are grossly normal. No TTP or deformity. LOWER EXTREMITIES: Grossly normal, no edema. Good range of motion no TTP. NEURO EXAM: A&O x3, cranial nerves II-XII grossly intact, normal speech, moves all 4 extremities. Past Med/Surg History Medical History Acute respiratory failure with hypoxia Anemia Anxiety CAD (coronary artery disease) BMS to LAD (2017) Cervical spondylolysis Chronic heart failure with preserved ejection fraction (HFpEF) Cyclic vomiting syndrome Cyclical vomiting Deep vein thrombosis ~2014, unknown cause Degenerative disc disease Depression Diabetes mellitus, type 2 Dyslipidemia Encounter for pre-operative examination GI bleed Hx (declined AC d/t hx of GIB per records) History of COVID-19 10/2021 - treated inpatient at [facility]/[place] [facility] History of pulmonary embolism Hx of Clostridium difficile infection Remote hx Hyperlipidemia Hypertension Hypothyroidism Intractable abdominal pain Migraine Hx, no recent issues Myocardial Infarction 2017 Non-specific colitis Osteoarthritis Post traumatic stress disorder Pulmonary embolism ~2014 (UNSURE OF REASON) Restless leg syndrome Scoliosis Vomiting Surgical History Fusion of spine LUMBAR H/O ovarian cystectomy x2 H/O repair of right rotator cuff H/O spinal fusion Multiple History of adenoidectomy History of anesthesia reaction Awareness with spinal surgeries History of appendectomy History of back surgery has bilateral SI Joint replacements (~2020 at [facility]) History of cataract surgery LEFT AND RIGHT History of colonoscopy History of esophagogastroduodenoscopy (EGD) History of heart artery stent 2016-x2 STENTS PLACED AT [facility] (DR. DAVILA) History of laminectomy and fusion "entire spine is fused(except cervical spine)" Barney Archuleta (Dr Catherine) History of tonsillectomy History of vascular access device Left upper chest port (*not a power port*) S/P hardware removal removal of all back hardware (~2002) Barney Archuleta Family History Mother Hypertension Father Hypertension Other No family history of adverse response to anesthesia Social History Smoking Status: Never smoker Second Hand Exposure: No; Do You Dip or Chew Tobacco: No; Hx Alcohol Use: No Hx Substance Use: No Preferred Language: Armenian Communication Ability: Effective Visual Impairment: Limited Hearing Ability: Normal Rcis Required: No Beliefs That Will Affect Care: None marital status: Current Living Situation: Alone current occupational status: retired How many Children do You have: 2 Feels Safe at Home: Yes Assistive Devices: Denture - Lower, Glasses and Walker Allergies Allergies Allergy/AdvReac Type Severity Reaction Status Date / Time latex Allergy Intermediate Rash Verified 04/15/23 15:05 nickel Allergy Intermediate SEVERE Verified 04/15/23 15:05 DERMATITIS adhesive tape AdvReac Intermediate SKIN Verified 04/15/23 15:05 IRRITATION aspirin AdvReac Intermediate full dose Verified 04/15/23 15:05 asa -> bleeding ulcers NSAIDS (Non-Steroidal AdvReac Intermediate HX OF Verified 04/16/23 01:18 Anti-Inflamma BLEEDING ULCERS-TO AVOID Home Meds Home Medications Medication Instructions Recorded Confirmed atorvastatin 40 mg tablet (Lipitor) 40 mg PO QAM 12/13/18 04/15/23 levothyroxine 75 mcg tablet 75 mcg PO DAILYBB 12/13/18 04/15/23 polyethylene glycol 3350 17 gram 17 g PO DAILY PRN Constipation 05/12/19 04/15/23 oral powder packet promethazine 25 mg tablet 25 mg PO Q6H PRN Nausea 05/12/19 04/15/23 epinephrine 0.3 mg/0.3 mL 0.3 mg IM Q3H PRN Allergic Reaction 05/23/19 04/15/23 injection syringe nitroglycerin 0.3 mg sublingual 0.3 mg sublingual UD PRN Chest Pain 05/23/19 04/15/23 tablet (Nitrostat) olopatadine 0.2 % eye drops 1 drp ophthalmic (eye) QA 05/23/19 04/15/23 tizanidine 4 mg tablet 4 mg PO BID PRN Muscle Spasm 04/03/20 04/15/23 trazodone 100 mg tablet 300 mg PO HS 04/03/20 04/15/23 furosemide 20 mg tablet 40 mg PO QAM 10/05/20 04/15/23 metformin 500 mg tablet 500 mg PO BIDM 10/05/20 04/15/23 loperamide 2 mg capsule 2 mg PO QID PRN Diarrhea 02/15/21 04/15/23 apixaban 5 mg tablet (Eliquis) 5 mg PO BID 10/11/21 04/15/23 aspirin 81 mg tablet,delayed 81 mg PO QAM 01/20/23 04/15/23 release metoprolol succinate 100 mg 100 mg PO QAM 01/20/23 04/15/23 tablet,extended release 24 hr semaglutide 2 mg/dose (8 mg/3 mL) 2 mg subcut WK 01/20/23 04/15/23 subcutaneous pen injector (Ozempic) spironolactone 25 mg tablet 25 mg PO QAM 01/20/23 04/15/23 buspirone 10 mg tablet 10 mg PO BID 02/20/23 04/15/23 plecanatide 3 mg tablet (Trulance) 3 mg PO QAM 04/15/23 04/15/23 Previous Rx's Medication Instructions Recorded ondansetron HCl 4 mg tablet 4 mg PO Q6 PRN nausea #15 tabs 02/13/23 ciprofloxacin HCl 500 mg tablet 500 mg PO BID 5 days #10 tabs 04/12/23 (Cipro) metronidazole 500 mg tablet 500 mg PO TID 5 days #15 tabs 04/12/23 Results & Data (ED) Vital Signs Vital Signs - 24 hr 04/15/23 11:46 04/15/23 12:24 04/15/23 13:05 Temperature 36.4 C L Temperature Source Temporal Artery Scan Pulse Rate 88 73 Pulse Rate [Apical] 62 Pulse Rate from SpO2 Sensor Pulse Rhythm [Apical] Regular Pulse Strength [Apical] Normal Respiratory Rate 18 20 Respiratory Effort / Characteristics Non-Labored Non-Labored Spontaneous Respiratory Depth Normal Respiratory Pattern Regular Regular Blood Pressure 118/80 Blood Pressure [Left Arm] 187/111 H Blood Pressure Mean 92 Blood Pressure Mean [Left Arm] 136 Blood Pressure Position [Left Arm] Pulse Oximetry 95 97 Oxygen Delivery Method Room Air Room Air Sepsis Recent Fever Within 48 Hours No Sepsis New/Unexplained Change in Mental Status N/A Sepsis Action Taken by Nursing No Action Required 04/15/23 14:35 04/15/23 12:05 04/15/23 16:35 Temperature Temperature Source Pulse Rate 64 Pulse Rate [Apical] 79 71 Pulse Rate from SpO2 Sensor Pulse Rhythm [Apical] Pulse Strength [Apical] Respiratory Rate 15 16 Respiratory Effort / Characteristics Respiratory Depth Respiratory Pattern Blood Pressure Blood Pressure [Left Arm] 169/102 H 201/100 H Blood Pressure Mean Blood Pressure Mean [Left Arm] 124 133 Blood Pressure Position [Left Arm] Semi-fowlers Semi-fowlers Pulse Oximetry 93 95 98 Oxygen Delivery Method Room Air Sepsis Recent Fever Within 48 Hours Sepsis New/Unexplained Change in Mental Status Sepsis Action Taken by Nursing 04/15/23 13:04 04/15/23 13:30 04/15/23 14:35 Temperature Temperature Source Pulse Rate 72 59 L Pulse Rate [Apical] Pulse Rate from SpO2 Sensor 73 Pulse Rhythm [Apical] Pulse Strength [Apical] Respiratory Rate 17 18 Respiratory Effort / Characteristics Respiratory Depth Respiratory Pattern Blood Pressure 169/102 H Blood Pressure [Left Arm] Blood Pressure Mean 138 Blood Pressure Mean [Left Arm] Blood Pressure Position [Left Arm] Pulse Oximetry 97 Oxygen Delivery Method Sepsis Recent Fever Within 48 Hours Sepsis New/Unexplained Change in Mental Status Sepsis Action Taken by Nursing 04/15/23 14:35 04/15/23 15:00 04/15/23 15:00 Temperature Temperature Source Pulse Rate 66 64 Pulse Rate [Apical] Pulse Rate from SpO2 Sensor 71 64 Pulse Rhythm [Apical] Pulse Strength [Apical] Respiratory Rate 13 19 Respiratory Effort / Characteristics Respiratory Depth Respiratory Pattern Blood Pressure 163/101 H Blood Pressure [Left Arm] Blood Pressure Mean 143 Blood Pressure Mean [Left Arm] Blood Pressure Position [Left Arm] Pulse Oximetry 96 95 Oxygen Delivery Method Sepsis Recent Fever Within 48 Hours Sepsis New/Unexplained Change in Mental Status Sepsis Action Taken by Nursing 04/15/23 15:30 04/15/23 16:00 04/15/23 16:00 Temperature Temperature Source Pulse Rate 72 66 Pulse Rate [Apical] Pulse Rate from SpO2 Sensor 75 66 Pulse Rhythm [Apical] Pulse Strength [Apical] Respiratory Rate 16 19 Respiratory Effort / Characteristics Respiratory Depth Respiratory Pattern Blood Pressure 191/101 H Blood Pressure [Left Arm] Blood Pressure Mean 142 Blood Pressure Mean [Left Arm] Blood Pressure Position [Left Arm] Pulse Oximetry 96 94 Oxygen Delivery Method Sepsis Recent Fever Within 48 Hours Sepsis New/Unexplained Change in Mental Status Sepsis Action Taken by Nursing 04/15/23 16:30 04/15/23 16:36 04/15/23 16:36 Temperature Temperature Source Pulse Rate 62 79 Pulse Rate [Apical] Pulse Rate from SpO2 Sensor 62 59 L Pulse Rhythm [Apical] Pulse Strength [Apical] Respiratory Rate 21 12 Respiratory Effort / Characteristics Respiratory Depth Respiratory Pattern Blood Pressure 201/100 H Blood Pressure [Left Arm] Blood Pressure Mean 105 Blood Pressure Mean [Left Arm] Blood Pressure Position [Left Arm] Pulse Oximetry 94 96 Oxygen Delivery Method Sepsis Recent Fever Within 48 Hours Sepsis New/Unexplained Change in Mental Status Sepsis Action Taken by Prison Medications Current Medication List: was personally reviewed by me Laboratory Data Attestation: I reviewed the patient's lab results. 04/16/23 06:22 04/16/23 06:22 Lab Results 04/15/23 04/15/23 04/15/23 Range/Units 12:48 12:48 12:48 WBC 8.23 (4.8-10.8) K/ul RBC 3.84 L (4.20-5.40) M/uL Hgb 12.1 (12.0-16.0) g/dl Hct 35.3 L (37.0-47.0) % MCV 91.9 (80.0-100.0) fL MCH 31.5 (25.0-34.0) pg MCHC 34.3 (32.0-36.0) g/dL RDW Std Deviation 45.8 (36.4-46.3) fL RDW Coeff of [place] 13.7 (11.5-14.5) % Plt Count 225 (130-400) K/uL MPV 9.7 (9.4-12.4) fL Immature Gran % (Auto) 0.1 % Neut % (Auto) 54.1 % Lymph % (Auto) 32.0 % [place] % (Auto) 11.1 % Eos % (Auto) 2.1 % Baso % (Auto) 0.6 % Neut # (Auto) 4.46 (1.40-6.50) K/uL Lymph # (Auto) 2.63 (1.2-3.4) K/uL [place] # (Auto) 0.91 H (0.11-0.59) K/uL Eos # (Auto) 0.17 (0-0.50) K/uL Baso # (Auto) 0.05 (0-0.2) K/uL Immature Gran # (Auto) 0.01 (0.01-0.20) K/uL Sodium 139 (136-145) mmol/L Potassium 3.7 (3.5-5.1) mmol/L Chloride 107 (98-107) mmol/L Carbon Dioxide 25 (21-32) mmol/L Anion Gap 7 (3-11) BUN 11 (6-23) mg/dl Creatinine 0.67 (0.6-1.2) mg/dl Est Cr Clr Drug Dosing 75.9 ml/min Est GFR ( Amer) 99.7 ml/min Est GFR (Non-Af Amer) 86.0 ml/min BUN/Creatinine Ratio 16.4 (10-20) Glucose 95 (70-99(Fasting)) mg/dl Calcium 8.8 (8.6-10.3) mg/dl Phosphorus 3.1 (2.5-4.9) mg/dl Magnesium 1.6 L (1.7-2.4) mg/dl Total Bilirubin 0.4 (0.2-1.0) mg/dl AST 29 (13-39) U/L ALT 25 (7-52) U/L Alkaline Phosphatase 69 (34-104) U/L Troponin I High Sens 3.6 (0-14) pg/ml Total Protein 6.0 (6.0-8.3) gm/dl Albumin 3.6 (3.4-5.0) gm/dl Globulin 2.4 L (2.5-4.0) gm/dl Albumin/Globulin Ratio 1.5 (0.9-2) TSH 0.750 (0.300-4.500) uIu/ml Urine Color Urine Appearance (Clear) Urine pH (4.5-7.5) Ur Specific [place] (1.000-1.030) Urine Protein (Negative) Urine Glucose (UA) (Negative) Urine Ketones (Negative) Urine Blood (Negative) Urine Nitrite (Negative) Urine Bilirubin (Negative) Urine Urobilinogen (Negative) Ur Leukocyte Esterase (Negative) SARS-CoV-2, RNA, NAAT (NEGATIVE) 04/15/23 04/15/23 Range/Units 13:49 15:36 WBC (4.8-10.8) K/ul RBC (4.20-5.40) M/uL Hgb (12.0-16.0) g/dl Hct (37.0-47.0) % MCV (80.0-100.0) fL MCH (25.0-34.0) pg MCHC (32.0-36.0) g/dL RDW Std Deviation (36.4-46.3) fL RDW Coeff of [place] (11.5-14.5) % Plt Count (130-400) K/uL MPV (9.4-12.4) fL Immature Gran % (Auto) % Neut % (Auto) % Lymph % (Auto) % [place] % (Auto) % Eos % (Auto) % Baso % (Auto) % Neut # (Auto) (1.40-6.50) K/uL Lymph # (Auto) (1.2-3.4) K/uL [place] # (Auto) (0.11-0.59) K/uL Eos # (Auto) (0-0.50) K/uL Baso # (Auto) (0-0.2) K/uL Immature Gran # (Auto) (0.01-0.20) K/uL Sodium (136-145) mmol/L Potassium (3.5-5.1) mmol/L Chloride (98-107) mmol/L Carbon Dioxide (21-32) mmol/L Anion Gap (3-11) BUN (6-23) mg/dl Creatinine (0.6-1.2) mg/dl Est Cr Clr Drug Dosing ml/min Est GFR ( Amer) ml/min Est GFR (Non-Af Amer) ml/min BUN/Creatinine Ratio (10-20) Glucose (70-99(Fasting)) mg/dl Calcium (8.6-10.3) mg/dl Phosphorus (2.5-4.9) mg/dl Magnesium (1.7-2.4) mg/dl Total Bilirubin (0.2-1.0) mg/dl AST (13-39) U/L ALT (7-52) U/L Alkaline Phosphatase (34-104) U/L Troponin I High Sens (0-14) pg/ml Total Protein (6.0-8.3) gm/dl Albumin (3.4-5.0) gm/dl Globulin (2.5-4.0) gm/dl Albumin/Globulin Ratio (0.9-2) TSH (0.300-4.500) uIu/ml Urine Color Yellow Urine Appearance Clear (Clear) Urine pH 6.5 (4.5-7.5) Ur Specific [place] 1.004 (1.000-1.030) Urine Protein Negative (Negative) Urine Glucose (UA) Negative (Negative) Urine Ketones Negative (Negative) Urine Blood Negative (Negative) Urine Nitrite Negative (Negative) Urine Bilirubin Negative (Negative) Urine Urobilinogen Negative (Negative) Ur Leukocyte Esterase Negative (Negative) SARS-CoV-2, RNA, NAAT NEGATIVE (NEGATIVE) Administered Medications Apixaban (Apixaban 5 Mg Tablet) 5 mg PO BID [facility] Stop: 05/15/23 21:03 Last Admin: 04/15/23 22:41 Dose: 5 mg Documented By: ASHER Buspirone HCl (Buspirone 5 Mg Tab) 10 mg PO BID [facility] Stop: 05/15/23 21:03 Last Admin: 04/15/23 22:41 Dose: 10 mg Documented By: ASHER Ciprofloxacin (Ciprofloxacin 500 Mg Tab) 500 mg PO BID [facility]; Protocol Stop: 04/17/23 21:03 Last Admin: 04/15/23 22:42 Dose: 500 mg Documented By: ASHER Insulin Aspart (Insulin Aspart Per Unit Charge) 0 units SC [facility] Stop: 05/15/23 21:03 Last Admin: 04/15/23 22:17 Dose: Not Given Documented By: ASHER Levothyroxine Sodium (Levothyroxine Sodium 75 Mcg Tablet) 75 mcg PO DAILYBB [facility] Stop: 05/16/23 06:29 Last Admin: 04/16/23 05:59 Dose: 75 mcg Documented By: ASHER Lidocaine (Lidocaine 5% 1 Patch) 1 patch TD QPM [facility] Stop: 05/15/23 21:29 Last Admin: 04/15/23 22:42 Dose: 1 patch Documented By: ASHER Metronidazole (Metronidazole 500 Mg Tab) 500 mg PO TID [facility]; Protocol Stop: 04/17/23 21:03 Last Admin: 04/15/23 22:41 Dose: 500 mg Documented By: ASHER Miscellaneous (Order Awaiting Action - Olopatadine 0.2 % Drops) 1 each N/A QS [facility] Stop: 05/16/23 00:00 Last Admin: 04/16/23 00:08 Dose: Not Given Documented By: ASHER Trazodone HCl (Trazodone Hcl 100 Mg Tab) 300 mg PO HS [facility] Stop: 05/15/23 21:03 Last Admin: 04/15/23 22:41 Dose: 300 mg Documented By: ASHER Discontinued Medications Hydralazine HCl (Hydralazine Hcl 20 Mg/Ml Vial) 10 mg IV NOW STA Stop: 04/15/23 21:16 Last Admin: 04/15/23 22:40 Dose: 10 mg Documented By: ASHER Sodium Chloride (Nss 1000ml) 1,000 mls @ 999 mls/hr IV .Q1H1M COLT Stop: 04/15/23 13:15 Last Infusion: 04/15/23 14:43 Dose: 0 mls/hr Documented By: Admin: 04/15/23 12:53 Dose: 999 mls/hr Documented By: Acetaminophen (Ofirmev) 1,000 mg in 100 mls @ 400 mls/hr IV NOW STA Stop: 04/15/23 14:32 Last Infusion: 04/15/23 14:43 Dose: 0 mls/hr Documented By: Admin: 04/15/23 14:28 Dose: 400 mls/hr Documented By: Sodium Chloride (Nss 1000ml) 500 mls @ 999 mls/hr IV .Q31M ONE Stop: 04/15/23 14:48 Last Infusion: 04/15/23 14:44 Dose: 0 mls/hr Documented By: Admin: 04/15/23 14:29 Dose: 999 mls/hr Documented By: Magnesium Sulfate/Dextrose (Magnesium Sulfate / D5w) 1 gm in 100 mls @ 50 mls/hr IV ONE ONE Stop: 04/15/23 23:14 Last Infusion: 04/16/23 00:46 Dose: 0 mls/hr Documented By: Admin: 04/15/23 22:39 Dose: 50 mls/hr Documented By: ASHER Ondansetron HCl (Ondansetron Inj 2 Mg/Ml 2 Ml Vial) 4 mg IV NOW STA Stop: 04/15/23 14:19 Last Admin: 04/15/23 14:28 Dose: 4 mg Documented By: Oxycodone HCl (Oxycodone Hcl Ir 5 Mg Tab (Immediate Release)) 5 mg PO Q6H PRN PRN Reason: Pain Stop: 04/30/23 00:09 Last Admin: 04/16/23 00:22 Dose: 5 mg Documented By: ASHER Oxycodone HCl (Oxycodone Hcl Ir 5 Mg Tab (Immediate Release)) 5 mg PO NOW STA Stop: 04/16/23 03:04 Last Admin: 04/16/23 03:29 Dose: 5 mg Documented By: NIDA Tramadol HCl (Tramadol Hcl 50 Mg Tablet) 50 mg PO NOW STA Stop: 04/15/23 21:12 Last Admin: 04/15/23 22:39 Dose: 50 mg Documented By: ASHER Imaging Data Radiologist's Impression: Chest X-Ray 04/15/23 12:05 SINGLE VIEW CHEST CLINICAL HISTORY: Generalized weakness FINDINGS: An AP, portable, upright chest radiograph is compared to study dated 04/06/2023 and correlated with chest CT dated 11/01/2021. The examination is degraded by portable technique, apical lordotic positioning, and patient rotation. Soft tissue density projects over the left lower chest. A left subclavian central venous infusion port is unchanged in position. The patient is status post midline sternotomy. The heart is enlarged. The pulmonary vasculature is noncongested. Emphysema and chronic interstitial thickening similar to previous. There is bibasilar scarring/atelectasis. Scarring/atelectasis is noted at the lung bases. There are scattered calcified granulomas. No airspace consolidation or large pleural effusion is identified. No pneumothorax is seen. The skeletal structures are osteopenic. There is chronic deformity of the left- sided ribs. There is mild S-shaped thoracolumbar scoliosis. IMPRESSION: Cardiomegaly and emphysema with no acute cardiopulmonary abnormality identified. ACT 112: Negative or not required by law. Electronically signed by: Ivan Smith M.D. 04/15/2023 12:22 PM Chest X-Ray 04/15/23 12:05 SINGLE VIEW CHEST CLINICAL HISTORY: Generalized weakness FINDINGS: An AP, portable, upright chest radiograph is compared to study dated 04/06/2023 and correlated with chest CT dated 11/01/2021. The examination is degraded by portable technique, apical lordotic positioning, and patient rotation. Soft tissue density projects over the left lower chest. A left bhandari bclavian central venous infusion port is unchanged in position. The patient is status post midline sternotomy. The heart is enlarged. The pulmonary vasculature is noncongested. Emphysema and chronic interstitial thickening similar to previous. There is bibasilar scarring/atelectasis. Scarring/atelectasis is noted at the lung bases. There are scattered calcified granulomas. No airspace consolidation or large pleural effusion is identified. No pneumothorax is seen. The skeletal structures are osteopenic. There is chronic deformity of the left- sided ribs. There is mild S-shaped thoracolumbar scoliosis. IMPRESSION: Cardiomegaly and emphysema with no acute cardiopulmonary abnormality identified. ACT 112: Negative or not required by law. Electronically signed by: Ivan Smith M.D. 04/15/2023 12:[address] 04/15/23 12:29 CT OF THE CERVICAL SPINE WITHOUT CONTRAST CLINICAL HISTORY: Fall. COMPARISON STUDY: Cervical spine CT December 14, 2020. CTA of the neck February 15, 2021. TECHNIQUE: Helical axial images of the cervical spine were obtained without IV contrast. Sagittal and coronal reconstructions were viewed. Automated exposure control was utilized for the study. A dose lowering technique was utilized adhering to the principles of ALARA. FINDINGS: Alignment of the cervical spine is anatomic. Vertebral body heights are maintained. No acute cervical spine fracture or subluxation is present. There is no prevertebral edema. Facet joints are intact. Moderate multilevel degenerative disc disease and facet arthrosis is present. The appearance of the cervical spine is unchanged. IMPRESSION: No acute cervical spine fracture or subluxation. ACT 112: Negative or not required by law. Electronically signed by: Gonsalo Villafana M.D. 04/15/2023 1:[address] 04/15/23 12:29 CT SCAN OF THE BRAIN WITHOUT IV CONTRAST CLINICAL HISTORY: Fall. COMPARISON STUDY: CT of the brain dated 01/26/2023. TECHNIQUE: Unenhanced axial CT scan of the brain is performed from the vertex to the skull base. A dose lowering technique was utilized adhering to the principles of ALARA. FINDINGS: Brain parenchyma: There is age-related involutional change noting mild subcortical and periventricular microangiopathic disease. There is no hemorrhage, mass effect, or evidence of acute territorial ischemia by CT criteria. Hernandez-white matter differentiation is preserved. No extra-axial fluid collection is seen. Ventricles, sulci, cisterns: Prominent secondary to involutional change. Intracranial vasculature: There is atherosclerotic calcification of the cavernous carotid and vertebral arteries. Calvarium: The skeletal structures are osteopenic. No depressed calvarial fracture is identified. Sinuses and mastoids: There is mild mucosal thickening within the maxillary antra. Trace mucosal thickening is seen in the right frontal sinus. The remaining visualized paranasal sinuses are clear. The mastoid air cells are well pneumatized. Orbits: The bony orbits are grossly intact. There are bilateral ocular lens implants. IMPRESSION: There is no hemorrhage, mass effect, or evidence of acute territorial ischemia by CT criteria. ACT 112: Negative or not required by law. Electronically signed by: Ivan Smith M.D. 04/15/2023 1:[address] 04/15/23 12:29 CT SCAN OF THE LUMBAR SPINE WITHOUT IV CONTRAST CLINICAL HISTORY: Fall. Low back pain. COMPARISON STUDY: CT scan of the lumbar spine dated 12/14/2020. Abdominal CT dated 04/06/2023. TECHNIQUE: CT scan of the lumbar spine is performed from the lower thoracic spine to the sacrum. Images are reviewed in the axial, sagittal, and coronal planes. IV contrast was not administered for this examination. A dose lowering technique was utilized adhering to the principles of ALARA. CT DOSE: 3737.92 mGy.cm FINDINGS: The skeletal structures are osteopenic. There is no evidence of acute fracture or malalignment involving the lumbar spine. Vertebral body height and alignment are maintained. Levocurvature is centered at L2. There are flowing anterior osteophytes. Extensive postlaminectomy change is seen throughout the imaged thoracolumbar spine. The transverse processes appear intact. No lytic or blastic lesion is seen. The disc spaces are calcified. The central canal is grossly clear. The visualized sacrum and bony pelvis appear intact. Bilateral iliac bones are in place. Degenerative change is noted throughout the sacroiliac joints. There is fatty atrophy throughout the paraspinous musculature. The abdominal aorta is normal in course and caliber noting moderate atherosclerotic calcification. No retroperitoneal lymphadenopathy is seen. There is a 4 mm nonobstructing left renal calculus. IMPRESSION: 1. There is no evidence of fracture or malalignment involving the lumbar spine. 2. Osteopenia with spondylotic and extensive postsurgical change throughout the lumbar spine as above. ACT 112: Negative or not required by law. Dictated: 04/15/2023 1:35 PM Transcribed: 04/15/2023 1:54 PM Rahul [id number] Shoaib [id number] Electronically signed by: Ivan Smith M.D. 04/15/2023 2:[address] 04/15/23 12:29 CT thoracic spine wo con CLINICAL HISTORY: mid to lower thoracic TTP s/p fall TECHNIQUE: Multidetector row helical CT of the thoracic spine was performed without administration of intravenous contrast. Coronal and sagittal reformations were obtained. Automated dose lowering techniques and/or adjustment according to patient size were utilized for this exam. Comparison: Comparison is made to CT thoracic spine 07/09/2016 FINDINGS: No acute fractures are identified. Degenerative changes are noted in the visualized spine. S-shaped scoliosis is seen. Surrounding soft tissues are unremarkable. Left rib deformity is unchanged. IMPRESSION: Degenerative changes in the thoracic spine without evidence of acute fracture. Redemonstration of left rib deformity. ACT 112: Negative or not required by law. Electronically signed by: Moisés Cordova M.D. 04/15/2023 2:16 PM Discharge Plan Visit Data Chief Complaint: Weakness Stated Complaint: WEAKNESS,SYNCOPE AND FELL,LOW BP, ED Provider: Oskar Corado Discharge Problem: Syncope, Acute dehydration, Diarrhea, Hypomagnesemia, Chronic back pain Patient Disposition: Admitted As Inpatient Discharge Instructions Interventions: ED Discharge Assessment Last Done: 04/15/23 20:44
[2023-04-15] MEDS ORDERED: SODIUM CHLORIDE 0.9% 1000ML 1,000 ML IV SCH (12:15)
--- NOTE | 2023-04-15 12:25 | XRay Report ---
SINGLE VIEW CHEST CLINICAL HISTORY: Generalized weakness FINDINGS: An AP, portable, upright chest radiograph is compared to study dated 04/06/2023 and correlat ed with chest CT dated 11/01/2021. The examination is degraded by portable technique, apical lordotic positioning, and patient rotation. Soft tissue density projects over the left lower chest. A left bhandari bclavian central venous infusion port is unchanged in position. The patient is status post midline st ernotomy. The heart is enlarged. The pulmonary vasculature is noncongested. Emphysema and chronic int erstitial thickening similar to previous. There is bibasilar scarring/atelectasis. Scarring/atelectas is is noted at the lung bases. There are scattered calcified granulomas. No airspace consolidation or large pleural effusion is identified. No pneumothorax is seen. The skeletal structures are osteopeni c. There is chronic deformity of the left-sided ribs. There is mild S-shaped thoracolumbar scoliosis. IMPRESSION: Cardiomegaly and emphysema with no acute cardiopulmonary abnormality identified. ACT 112: Negative or not required by law. Electronically signed by: Ivan Smith M.D. 04/15/2023 12:22 PM
[2023-04-15 13:17] LABS: Basophils # (auto) 0.05 K/uL (0-0.2); Basophils % (auto) 0.6 %; Eosinophils # (auto) 0.17 K/uL (0-0.50); Eosinophils % (auto) 2.1 %; Hematocrit (blood only) 35.3 % (37.0-47.0); Hemoglobin 12.1 g/dl (12.0-16.0); Immature Granulocytes # (auto) 0.01 K/uL (0.01-0.20); Immature Granulocytes % (auto) 0.1 %; Lymphocytes # (auto) 2.63 K/uL (1.2-3.4); Mean Corpuscular Hemoglobin 31.5 pg (25.0-34.0); Mean Corpuscular Hgb Conc 34.3 g/dL (32.0-36.0); Mean Corpuscular Volume 91.9 fL (80.0-100.0); Mean Platelet Volume 9.7 fL (9.4-12.4); Monocytes # (auto) 0.91 K/uL (0.11-0.59); Monocytes % (auto) 11.1 %; Neutrophils # (auto) 4.46 K/uL (1.40-6.50); Neutrophils % (auto) 54.1 %; Platelet Count 225 K/uL (130-400); RDW Coefficient of Variation 13.7 % (11.5-14.5); RDW Standard Deviation 45.8 fL (36.4-46.3); Red Blood Count 3.84 M/uL (4.20-5.40); White Blood Count 8.23 K/ul (4.8-10.8)
--- NOTE | 2023-04-15 13:24 | Electrocardiogram Report ---
Test Reason : Blood Pressure : / mmHG Vent. 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
[2023-04-15 13:29] LABS: Albumin Globulin Ratio 1.5 (0.9-2); Albumin Level 3.6 gm/dl (3.4-5.0); BUN Creatinine Ratio 16.4 (10-20); Bilirubin,Total 0.4 mg/dl (0.2-1.0); Calcium 8.8 mg/dl (8.6-10.3); Creatinine Clr Calc Pharmacy 75.9 ml/min; Est GFR (African American) 99.7 ml/min; Globulin 2.4 gm/dl (2.5-4.0); Magnesium 1.6 mg/dl (1.7-2.4); Phosphorus 3.1 mg/dl (2.5-4.9); Potassium 3.7 mmol/L (3.5-5.1)
[2023-04-15 13:33] LABS: Troponin I High Sensitivity 3.6 pg/ml (0-14)
--- NOTE | 2023-04-15 13:36 | CT Scan Report ---
CT SCAN OF THE BRAIN WITHOUT IV CONTRAST CLINICAL HISTORY: Fall. COMPARISON STUDY: CT of the brain dated 01/26/2023. TECHNIQUE: Unenhanced axial CT scan of the brain is performed from the vertex to the skull base. A do se lowering technique was utilized adhering to the principles of ALARA. FINDINGS: Brain parenchyma: There is age-related involutional change noting mild subcortical and periventricula r microangiopathic disease. There is no hemorrhage, mass effect, or evidence of acute territorial isc hemia by CT criteria. Hernandez-white matter differentiation is preserved. No extra-axial fluid collection is seen. Ventricles, sulci, cisterns: Prominent secondary to involutional change. Intracranial vasculature: There is atherosclerotic calcification of the cavernous carotid and vertebr al arteries. Calvarium: The skeletal structures are osteopenic. No depressed calvarial fracture is identified. Sinuses and mastoids: There is mild mucosal thickening within the maxillary antra. Trace mucosal thic kening is seen in the right frontal sinus. The remaining visualized paranasal sinuses are clear. The mastoid air cells are well pneumatized. Orbits: The bony orbits are grossly intact. There are bilateral ocular lens implants. IMPRESSION: There is no hemorrhage, mass effect, or evidence of acute territorial ischemia by CT calin chaves. ACT 112: Negative or not required by law. Electronically signed by: Ivan Smith M.D. 04/15/2023 1:35 PM
--- NOTE | 2023-04-15 13:43 | CT Scan Report ---
CT OF THE CERVICAL SPINE WITHOUT CONTRAST CLINICAL HISTORY: Fall. COMPARISON STUDY: Cervical spine CT December 14, 2020. CTA of the neck February 15, 2021. TECHNIQUE: Helical axial images of the cervical spine were obtained without IV contrast. Sagittal a nd coronal reconstructions were viewed. Automated exposure control was utilized for the study. A do se lowering technique was utilized adhering to the principles of ALARA. FINDINGS: Alignment of the cervical spine is anatomic. Vertebral body heights are maintained. No acut e cervical spine fracture or subluxation is present. There is no prevertebral edema. Facet joints are intact. Moderate multilevel degenerative disc disease and facet arthrosis is present. The appearanc e of the cervical spine is unchanged. IMPRESSION: No acute cervical spine fracture or subluxation. ACT 112: Negative or not required by law. Electronically signed by: Gonsalo Villafana M.D. 04/15/2023 1:41 PM
--- NOTE | 2023-04-15 14:01 | CT Scan Report ---
CT SCAN OF THE LUMBAR SPINE WITHOUT IV CONTRAST CLINICAL HISTORY: Fall. Low back pain. COMPARISON STUDY: CT scan of the lumbar spine dated 12/14/2020. Abdominal CT dated 04/06/2023. TECHNIQUE: CT scan of the lumbar spine is performed from the lower thoracic spine to the sacrum. Imag es are reviewed in the axial, sagittal, and coronal planes. IV contrast was not administered for this examination. A dose lowering technique was utilized adhering to the principles of ALARA. CT DOSE: 3737.92 mGy.cm FINDINGS: The skeletal structures are osteopenic. There is no evidence of acute fracture or malalignment involving the lumbar spine. Vertebral body hei ght and alignment are maintained. Levocurvature is centered at L2. There are flowing anterior osteoph ytes. Extensive postlaminectomy change is seen throughout the imaged thoracolumbar spine. The transve rse processes appear intact. No lytic or blastic lesion is seen. The disc spaces are calcified. The c entral canal is grossly clear. The visualized sacrum and bony pelvis appear intact. Bilateral iliac b ones are in place. Degenerative change is noted throughout the sacroiliac joints. There is fatty atro phy throughout the paraspinous musculature. The abdominal aorta is normal in course and caliber notin g moderate atherosclerotic calcification. No retroperitoneal lymphadenopathy is seen. There is a 4 mm nonobstructing left renal calculus. IMPRESSION: 1. There is no evidence of fracture or malalignment involving the lumbar spine. 2. Osteopenia with spondylotic and extensive postsurgical change throughout the lumbar spine as above . ACT 112: Negative or not required by law. Dictated: 04/15/2023 1:35 PM Transcribed: 04/15/2023 1:54 PM Rahul [id number] Shoaib [id number] Electronically signed by: Ivan Smith M.D. 04/15/2023 2:00 PM
[2023-04-15 14:07] LABS: Appearance Urine Clear (Clear); Bilirubin Urine Negative (Negative); Blood Urine Negative (Negative); Color Urine Yellow; Glucose Urine UA Negative (Negative); Ketones Urine Negative (Negative); Leukocyte Esterase Urine Negative (Negative); Nitrite Urine Negative (Negative); Protein Urine Negative (Negative); Specific Gravity Urine 1.004 (1.000-1.030); Urobilinogen Urine Negative (Negative); pH Urine 6.5 (4.5-7.5)
[2023-04-15] MEDS ORDERED: SODIUM CHLORIDE 0.9% 1000ML 500 ML IV ONE (14:18)
[2023-04-15] MEDS ORDERED: ACETAMINOPHEN 1,000 MG/100 ML VIAL IV STA (14:18)
[2023-04-15] MEDS ORDERED: ONDANSETRON INJ 2 MG/ML 2 ML VIAL IV STA (14:18)
--- NOTE | 2023-04-15 14:18 | CT Scan Report ---
CT thoracic spine wo con CLINICAL HISTORY: mid to lower thoracic TTP s/p fall TECHNIQUE: Multidetector row helical CT of the thoracic spine was performed without administration of intravenous contrast. Coronal and sagittal reformations were obtained. Automated dose lowering techn iques and/or adjustment according to patient size were utilized for this exam. Comparison: Comparison is made to CT thoracic spine 07/09/2016 FINDINGS: No acute fractures are identified. Degenerative changes are noted in the visualized spine. S-shaped s coliosis is seen. Surrounding soft tissues are unremarkable. Left rib deformity is unchanged. IMPRESSION: Degenerative changes in the thoracic spine without evidence of acute fracture. Redemonstration of lef t rib deformity. ACT 112: Negative or not required by law. Electronically signed by: Moisés Cordova M.D. 04/15/2023 2:16 PM
--- NOTE | 2023-04-15 17:00 | History & Physical Report ---
Date of Service April 15, 2023 Assessment & Plan (1) Syncope: Plan: Weakness Possible related to hypovolemia from recurrent diarrhea in the setting of diuretic CT imaging of thoracic/lumbar/cervical showed no acute fracture Received IVF fluid in the ER PT/OT eval Fall precaution Continue monitor in telemetry for any arrhythmia Recurrent diarrhea Recent discharge for colitis on Flagyl and Cipro S/P colonoscopy with polyp removal will check stool for Cdiff Continue Cipro and flagyl Continue monitor electrolytes Electrolyte imbalance Mg 1.6 on admission Mg replaced Continue monitor H/O PE/DVT: 2014; on Eliquis; continue for now. No stools noted since arrival to ED and Hgb 13.8. Hold if FOBT (+) H/O CDiff: Years ago No fecal transplant history Obtain stool sample to r/o C-Diff CAD: s/p AMI 2016: No stents placed Stable and takes Baby ASA and eliquis DM2: Most recent A1C 5.7 Takes Metformin and Ozempic; hold while inpt FSBS ACHS + SSI while inpatient Continue monitor BS HTN: BP elevated Continue Metoprolol Will add hydralazine IV prn HFpEF: Continue Aldactone for now Will resume lasix in am if no sign of hypovolemia and worsening diarrhea HLD: Continue Atorvastatin Depression: Continue Buspar Disposition: PCP: Dr. Webb Code Status: Full code History of Present Illness Chief Complaint: Weakness/syncope/recurrent diarrhea Primary Care Provider: Svetlana Jacobs DO 73 years old female with past medical history of DVT/PE, C. difficile, hypertension, HFpEF, dyslipidemia, hypothyroidism, diabetes, presented to the ER with chief complaint of weakness diarrhea and syncope. Pt was recently discharged on 04/12 for colitis on Metronidazole and Cipro. She said that she continues to have recurrent watery diarrhea. She said that she had 5 episodes of diarrhea yesterday. Pt said that she has been feeling weak and dizzy associated with nausea. She said that her blood pressure was low last night. She said last night she felt very weak and dizzy while walking to the sink. She had a syncopal episode and found herself on the floor in her right side. She said that she could have been on the floor for about 15 minutes. She said that she is having so much pain around her shoulders, back of her neck. She had colonoscopy and EGD done on 04/13 where a 5mm polyp removed and gastritis. She said that she called her PCP this morning that told her to go to the ER for eval. She denies any chest pain, palpitation, dizziness, SOB and fever. Allergies Allergy/AdvReac Type Severity Reaction Status Date / Time latex Allergy Intermediate Rash Verified 04/15/23 15:05 nickel Allergy Intermediate SEVERE Verified 04/15/23 15:05 DERMATITIS NSAIDS (Non-Steroidal Allergy Intermediate HX OF Verified 04/15/23 15:05 Anti-Inflamma BLEEDING ULCERS-TO AVOID adhesive tape AdvReac Intermediate SKIN Verified 04/15/23 15:05 IRRITATION aspirin AdvReac Intermediate full dose Verified 04/15/23 15:05 asa -> bleeding ulcers Home Medications Medication Instructions Recorded Confirmed Type atorvastatin 40 mg tablet (Lipitor) 40 mg PO QAM 12/13/18 04/15/23 History levothyroxine 75 mcg tablet 75 mcg PO DAILYBB 12/13/18 04/15/23 History polyethylene glycol 3350 17 gram 17 g PO DAILY PRN Constipation 05/12/19 04/15/23 History oral powder packet promethazine 25 mg tablet 25 mg PO Q6H PRN Nausea 05/12/19 04/15/23 History epinephrine 0.3 mg/0.3 mL 0.3 mg IM Q3H PRN Allergic Reaction 05/23/19 04/15/23 History injection syringe nitroglycerin 0.3 mg sublingual 0.3 mg sublingual UD PRN Chest Pain 05/23/19 04/15/23 History tablet (Nitrostat) olopatadine 0.2 % eye drops 1 drp ophthalmic (eye) QAM 05/23/19 04/15/23 History tizanidine 4 mg tablet 4 mg PO BID PRN Muscle Spasm 04/03/20 04/15/23 History trazodone 100 mg tablet 300 mg PO HS 04/03/20 04/15/23 History furosemide 20 mg tablet 40 mg PO QAM 10/05/20 04/15/23 History metformin 500 mg tablet 500 mg PO BIDM 10/05/20 04/15/23 History loperamide 2 mg capsule 2 mg PO QID PRN Diarrhea 02/15/21 04/15/23 History apixaban 5 mg tablet (Eliquis) 5 mg PO BID 10/11/21 04/15/23 History aspirin 81 mg tablet,delayed 81 mg PO QAM 01/20/23 04/15/23 History release metoprolol succinate 100 mg 100 mg PO QAM 01/20/23 04/15/23 History tablet,extended release 24 hr semaglutide 2 mg/dose (8 mg/3 mL) 2 mg subcut WK 01/20/23 04/15/23 History subcutaneous pen injector (Ozempic) spironolactone 25 mg tablet 25 mg PO QAM 01/20/23 04/15/23 History ondansetron HCl 4 mg tablet 4 mg PO Q6 PRN nausea #15 tabs 02/13/23 04/15/23 Rx buspirone 10 mg tablet 10 mg PO BID 02/20/23 04/15/23 History ciprofloxacin HCl 500 mg tablet 500 mg PO BID 5 days #10 tabs 04/12/23 04/15/23 Rx (Cipro) metronidazole 500 mg tablet 500 mg PO TID 5 days #15 tabs 04/12/23 04/15/23 Rx plecanatide 3 mg tablet (Trulance) 3 mg PO QAM 04/15/23 04/15/23 History Past Med/Surg History Medical History Acute respiratory failure with hypoxia Anemia Anxiety CAD (coronary artery disease) BMS to LAD (2016) Cervical spondylolysis Chronic heart failure with preserved ejection fraction (HFpEF) Cyclic vomiting syndrome Cyclical vomiting Deep vein thrombosis ~2014, unknown cause Degenerative disc disease Depression Diabetes mellitus, type 2 Dyslipidemia Encounter for pre-operative examination GI bleed Hx (declined AC d/t hx of GIB per records) History of COVID-19 10/2021 - treated inpatient at [facility]/[place] [facility] History of pulmonary embolism Hx of Clostridium difficile infection Remote hx Hyperlipidemia Hypertension Hypothyroidism Intractable abdominal pain Migraine Hx, no recent issues Myocardial Infarction 2017 Non-specific colitis Osteoarthritis Post traumatic stress disorder Pulmonary embolism ~2014 (UNSURE OF REASON) Restless leg syndrome Scoliosis Vomiting Surgical History Fusion of spine LUMBAR H/O ovarian cystectomy x2 H/O repair of right rotator cuff H/O spinal fusion Multiple History of adenoidectomy History of anesthesia reaction Awareness with spinal surgeries History of appendectomy History of back surgery has bilateral SI Joint replacements (~2020 at [facility] [place]) History of cataract surgery LEFT AND RIGHT History of colonoscopy History of esophagogastroduodenoscopy (EGD) History of heart artery stent 2017-x2 STENTS PLACED AT [facility] (DR. DAVILA) History of laminectomy and fusion "entire spine is fused(except cervical spine)" [facility] (Dr Catherine) 1989' History of tonsillectomy History of vascular access device Left upper chest port (*not a power port*) S/P hardware removal removal of all back hardware (~2002) [facility] [place] Family History Mother Hypertension Father Hypertension Other No family history of adverse response to anesthesia Social History Smoking Status: Never smoker Second Hand Exposure: No; Do You Dip or Chew Tobacco: No; Hx Alcohol Use: No Hx Substance Use: No Preferred Language: Palestinian Communication Ability: Effective Visual Impairment: Limited Hearing Ability: Normal Community Manager Required: No Beliefs That Will Affect Care: None marital status: Current Living Situation: Alone current occupational status: retired How many Children do You have: 2 Feels Safe at Home: Yes Assistive Devices: Cane Review of Systems Review of Systems: All systems reviewed & are unremarkable except as noted in HPI & below Physical Exam Physical Exam: General- No acute distress Head- atraumatic Eyes- PERRL, EOMI, ENT- oropharynx clear Neck- supple, no JVD Lungs- clear to auscultation Heart- regular rhythm; no murmur Abdomen-+LLQ tenderness, +BS Extremities- no calf tenderness Neuro- alert, oriented x 3; PERRL, EOMI; no facial palsy; no dysarthria Skin- warm & dry Results & Data Results & Data Vital Signs (Past 12 Hours) Vital Signs Temp Pulse Pulse Resp BP BP Pulse Ox 04/15/23 16:35 71 16 201/100 H 98 04/15/23 12:05 64 95 04/15/23 14:35 79 15 169/102 H 93 04/15/23 13:05 73 04/15/23 12:24 62 20 187/111 H 97 04/15/23 11:46 36.4 C L 88 18 118/80 95 O2 Del Method 04/15/23 16:35 04/15/23 12:05 Room Air 04/15/23 14:35 04/15/23 13:05 04/15/23 12:24 Room Air 04/15/23 11:46 Room Air Diagnostic Findings Laboratory Results WBC 8.23 K/ul (4.8-10.8) 04/15/23 12:48 RBC 3.84 M/uL (4.20-5.40) L 04/15/23 12:48 Hgb 12.1 g/dl (12.0-16.0) 04/15/23 12:48 Hct 35.3 % (37.0-47.0) L 04/15/23 12:48 MCV 91.9 fL (80.0-100.0) 04/15/23 12:48 MCH 31.5 pg (25.0-34.0) 04/15/23 12:48 MCHC 34.3 g/dL (32.0-36.0) 04/15/23 12:48 RDW Std Deviation 45.8 fL (36.4-46.3) 04/15/23 12:48 RDW Coeff of [place] 13.7 % (11.5-14.5) 04/15/23 12:48 Plt Count 225 K/uL (130-400) 04/15/23 12:48 MPV 9.7 fL (9.4-12.4) 04/15/23 12:48 Immature Gran % (Auto) 0.1 % 04/15/23 12:48 Neut % (Auto) 54.1 % 04/15/23 12:48 Lymph % (Auto) 32.0 % 04/15/23 12:48 Mckenzie % (Auto) 11.1 % 04/15/23 12:48 Eos % (Auto) 2.1 % 04/15/23 12:48 Baso % (Auto) 0.6 % 04/15/23 12:48 Neut # (Auto) 4.46 K/uL (1.40-6.50) 04/15/23 12:48 Lymph # (Auto) 2.63 K/uL (1.2-3.4) 04/15/23 12:48 Mckenzie # (Auto) 0.91 K/uL (0.11-0.59) H 04/15/23 12:48 Eos # (Auto) 0.17 K/uL (0-0.50) 04/15/23 12:48 Baso # (Auto) 0.05 K/uL (0-0.2) 04/15/23 12:48 Immature Gran # (Auto) 0.01 K/uL (0.01-0.20) 04/15/23 12:48 Sodium 139 mmol/L (136-145) 04/15/23 12:48 Potassium 3.7 mmol/L (3.5-5.1) 04/15/23 12:48 Chloride 107 mmol/L (98-107) 04/15/23 12:48 Carbon Dioxide 25 mmol/L (21-32) 04/15/23 12:48 Anion Gap 7 (3-11) 04/15/23 12:48 BUN 11 mg/dl (6-23) 04/15/23 12:48 Creatinine 0.67 mg/dl (0.6-1.2) 04/15/23 12:48 Est Cr Clr Drug Dosing 75.9 ml/min 04/15/23 12:48 Est GFR ( Amer) 99.7 ml/min 04/15/23 12:48 Est GFR (Non-Af Amer) 86.0 ml/min 04/15/23 12:48 BUN/Creatinine Ratio 16.4 (10-20) 04/15/23 12:48 Glucose 95 mg/dl (70-99(Fasting)) 04/15/23 12:48 Calcium 8.8 mg/dl (8.6-10.3) 04/15/23 12:48 Phosphorus 3.1 mg/dl (2.5-4.9) 04/15/23 12:48 Magnesium 1.6 mg/dl (1.7-2.4) L 04/15/23 12:48 Total Bilirubin 0.4 mg/dl (0.2-1.0) 04/15/23 12:48 AST 29 U/L (13-39) 04/15/23 12:48 ALT 25 U/L (7-52) 04/15/23 12:48 Alkaline Phosphatase 69 U/L (34-104) 04/15/23 12:48 Troponin I High Sens 3.6 pg/ml (0-14) 04/15/23 12:48 Total Protein 6.0 gm/dl (6.0-8.3) 04/15/23 12:48 Albumin 3.6 gm/dl (3.4-5.0) 04/15/23 12:48 Globulin 2.4 gm/dl (2.5-4.0) L 04/15/23 12:48 Albumin/Globulin Ratio 1.5 (0.9-2) 04/15/23 12:48 TSH 0.750 uIu/ml (0.300-4.500) 04/15/23 12:48 Urine Color Yellow 04/15/23 13:49 Urine Appearance Clear (Clear) 04/15/23 13:49 Urine pH 6.5 (4.5-7.5) 04/15/23 13:49 Ur Specific [place] 1.004 (1.000-1.030) 04/15/23 13:49 Urine Protein Negative (Negative) 04/15/23 13:49 Urine Glucose (UA) Negative (Negative) 04/15/23 13:49 Urine Ketones Negative (Negative) 04/15/23 13:49 Urine Blood Negative (Negative) 04/15/23 13:49 Urine Nitrite Negative (Negative) 04/15/23 13:49 Urine Bilirubin Negative (Negative) 04/15/23 13:49 Urine Urobilinogen Negative (Negative) 04/15/23 13:49 Ur Leukocyte Esterase Negative (Negative) 04/15/23 13:49 SARS-CoV-2, RNA, NAAT NEGATIVE (NEGATIVE) 04/15/23 15:36 Impressions Chest X-Ray 04/15/23 12:05 SINGLE VIEW CHEST CLINICAL HISTORY: Generalized weakness FINDINGS: An AP, portable, upright chest radiograph is compared to study dated 04/06/2023 and correlated with chest CT dated 11/01/2021. The examination is degraded by portable technique, apical lordotic positioning, and patient rotation. Soft tissue density projects over the left lower chest. A left subclavian central venous infusion port is unchanged in position. The patient is status post midline sternotomy. The heart is enlarged. The pulmonary vasculature is noncongested. Emphysema and chronic interstitial thickening similar to previous. There is bibasilar scarring/atelectasis. Scarring/atelectasis is noted at the lung bases. There are scattered calcified granulomas. No airspace consolidation or large pleural effusion is identified. No pneumothorax is seen. The skeletal structures are osteopenic. There is chronic deformity of the left- sided ribs. There is mild S-shaped thoracolumbar scoliosis. IMPRESSION: Cardiomegaly and emphysema with no acute cardiopulmonary abnormality identified. ACT 112: Negative or not required by law. Electronically signed by: Ivan Smith M.D. 04/15/2023 12:[address] 04/15/23 12:29 CT OF THE CERVICAL SPINE WITHOUT CONTRAST CLINICAL HISTORY: Fall. COMPARISON STUDY: Cervical spine CT December 14, 2020. CTA of the neck February 15, 2021. TECHNIQUE: Helical axial images of the cervical spine were obtained without IV contrast. Sagittal and coronal reconstructions were viewed. Automated exposure control was utilized for the study. A dose lowering technique was utilized adhering to the principles of ALARA. FINDINGS: Alignment of the cervical spine is anatomic. Vertebral body heights are maintained. No acute cervical spine fracture or subluxation is present. There is no prevertebral edema. Facet joints are intact. Moderate multilevel degenerative disc disease and facet arthrosis is present. The appearance of the cervical spine is unchanged. IMPRESSION: No acute cervical spine fracture or subluxation. ACT 112: Negative or not required by law. Electronically signed by: Gonsalo Villafana M.D. 04/15/2023 1:[address] 04/15/23 12:29 CT SCAN OF THE BRAIN WITHOUT IV CONTRAST CLINICAL HISTORY: Fall. COMPARISON STUDY: CT of the brain dated 01/26/2023. TECHNIQUE: Unenhanced axial CT scan of the brain is performed from the vertex to the skull base. A dose lowering technique was utilized adhering to the principles of ALARA. FINDINGS: Brain parenchyma: There is age-related involutional change noting mild subcortical and periventricular microangiopathic disease. There is no hemorrhage, mass effect, or evidence of acute territorial ischemia by CT criteria. Hernandez-white matter differentiation is preserved. No extra-axial fluid collection is seen. Ventricles, sulci, cisterns: Prominent secondary to involutional change. Intracranial vasculature: There is atherosclerotic calcification of the cavernous carotid and vertebral arteries. Calvarium: The skeletal structures are osteopenic. No depressed calvarial fracture is identified. Sinuses and mastoids: There is mild mucosal thickening within the maxillary antr a. Trace mucosal thickening is seen in the right frontal sinus. The remaining visualized paranasal sinuses are clear. The mastoid air cells are well pneumatized. Orbits: The bony orbits are grossly intact. There are bilateral ocular lens implants. IMPRESSION: There is no hemorrhage, mass effect, or evidence of acute territorial ischemia by CT criteria. ACT 112: Negative or not required by law. Electronically signed by: Ivan Smith M.D. 04/15/2023 1:[address] 04/15/23 12:29 CT SCAN OF THE LUMBAR SPINE WITHOUT IV CONTRAST CLINICAL HISTORY: Fall. Low back pain. COMPARISON STUDY: CT scan of the lumbar spine dated 12/14/2020. Abdominal CT dated 04/06/2023. TECHNIQUE: CT scan of the lumbar spine is performed from the lower thoracic spine to the sacrum. Images are reviewed in the axial, sagittal, and coronal planes. IV contrast was not administered for this examination. A dose lowering technique was utilized adhering to the principles of ALARA. CT DOSE: 3737.92 mGy.cm FINDINGS: The skeletal structures are osteopenic. There is no evidence of acute fracture or malalignment involving the lumbar spine. Vertebral body height and alignment are maintained. Levocurvature is centered at L2. There are flowing anterior osteophytes. Extensive postlaminectomy change is seen throughout the imaged thoracolumbar spine. The transverse processes appear intact. No lytic or blastic lesion is seen. The disc spaces are calcified. The central canal is grossly clear. The visualized sacrum and bony pelvis appear intact. Bilateral iliac bones are in place. Degenerative change is noted throughout the sacroiliac joints. There is fatty atrophy throughout the paraspinous musculature. The abdominal aorta is normal in course and caliber noting moderate atherosclerotic calcification. No retroperitoneal lymphadenopathy is seen. There is a 4 mm nonobstructing left renal calculus. IMPRESSION: 1. There is no evidence of fracture or malalignment involving the lumbar spine. 2. Osteopenia with spondylotic and extensive postsurgical change throughout the lumbar spine as above. ACT 112: Negative or not required by law. Dictated: 04/15/2023 1:35 PM Transcribed: 04/15/2023 1:54 PM Rahul [id number] Shoaib [id number] Electronically signed by: Ivan Smith M.D. 04/15/2023 2:[address] 04/15/23 12:29 CT thoracic spine wo con CLINICAL HISTORY: mid to lower thoracic TTP s/p fall TECHNIQUE: Multidetector row helical CT of the thoracic spine was performed without administration of intravenous contrast. Coronal and sagittal reformations were obtained. Automated dose lowering techniques and/or adjustment according to patient size were utilized for this exam. Comparison: Comparison is made to CT thoracic spine 07/09/2016 FINDINGS: No acute fractures are identified. Degenerative changes are noted in the visualized spine. S-shaped scoliosis is seen. Surrounding soft tissues are unremarkable. Left rib deformity is unchanged. IMPRESSION: Degenerative changes in the thoracic spine without evidence of acute fracture. Redemonstration of left rib deformity. ACT 112: Negative or not required by law. Electronically signed by: Moisés Cordova M.D. 04/15/2023 2:16 PM Code Status & VTE Plan VTE Prophylaxis Plan VTE Prophylaxis will be ordered: Yes
[2023-04-15] MEDS ORDERED: DEXTROSE 50% 50 ML SYRINGE IV PRN (21:04)
[2023-04-15] MEDS ORDERED: hydrALAZINE HCL 20 MG/ML VIAL IV PRN (21:04)
[2023-04-15] MEDS ORDERED: GLUCOSE 40% GEL 15 GM TUBE PO PRN (21:04)
[2023-04-15] MEDS ORDERED: GLUCAGON FOR INJ 1 MG VIAL SQ PRN (21:04)
[2023-04-15] MEDS ORDERED: LOPERAMIDE HCL 2 MG CAP PO PRN (21:04)
[2023-04-15] MEDS ORDERED: CARBOHYDRATES FOR HYPOGLYCEMIA PO PRN (21:04)
[2023-04-15] MEDS ORDERED: GLUCOSE 10 TAB/TUBE PO PRN (21:04)
[2023-04-15] MEDS ORDERED: tiZANidine HCL 4 MG TABLET PO PRN (21:04)
[2023-04-15] MEDS ORDERED: traMADol HCL 50 MG TABLET PO STA (21:11)
[2023-04-15] MEDS ORDERED: hydrALAZINE HCL 20 MG/ML VIAL IV STA (21:15)
[2023-04-15] MEDS ORDERED: MAGNESIUM SULFATE / D5W 1 GM/100 ML BAG IV ONE (21:15)
[2023-04-15] MEDS: INSULIN ASPART PER UNIT CHARGE SC SCH (22:17)
[2023-04-15] MEDS: busPIRone 5 MG TAB PO SCH (22:41)
[2023-04-15] MEDS: traZODone HCL 100 MG TAB PO SCH (22:41)
[2023-04-15] MEDS: metroNIDAZOLE 500 MG TAB PO SCH (22:41)
[2023-04-15] MEDS: APIXABAN 5 MG TABLET PO SCH (22:41)
[2023-04-15] MEDS: CIPROFLOXACIN 500 MG TAB PO SCH (22:42)
[2023-04-15] MEDS: LIDOCAINE 5% 1 PATCH TD SCH (22:42)
[2023-04-16] MEDS ORDERED: oxyCODONE HCL IR 5 MG TAB (IMMEDIATE RELEASE) PO PRN (00:10)
[2023-04-16] MEDS ORDERED: HEPARIN 100 UNIT/ML 5ML FLUSH FLUSH PRN (01:15)
[2023-04-16] MEDS ORDERED: oxyCODONE HCL IR 5 MG TAB (IMMEDIATE RELEASE) PO STA (03:03)
[2023-04-16] MEDS: LEVOTHYROXINE SODIUM 75 MCG TABLET PO SCH (05:59)
[2023-04-16 06:54] LABS: Hemoglobin 11.7 g/dl (12.0-16.0); Mean Corpuscular Hemoglobin 31.3 pg (25.0-34.0); Mean Corpuscular Hgb Conc 34.4 g/dL (32.0-36.0); Mean Corpuscular Volume 90.9 fL (80.0-100.0); Mean Platelet Volume 9.7 fL (9.4-12.4); Platelet Count 236 K/uL (130-400); RDW Coefficient of Variation 13.9 % (11.5-14.5); RDW Standard Deviation 45.5 fL (36.4-46.3); Red Blood Count 3.74 M/uL (4.20-5.40); White Blood Count 6.26 K/ul (4.8-10.8)
[2023-04-16 07:14] LABS: BUN Creatinine Ratio 11.6 (10-20); Calcium 8.3 mg/dl (8.6-10.3); Creatinine Clr Calc Pharmacy 73.5 ml/min; Est GFR (African American) 98.7 ml/min; Est GFR (Non-African American) 85.2 ml/min; Magnesium 1.9 mg/dl (1.7-2.4); Potassium 3.7 mmol/L (3.5-5.1)
[2023-04-16] MEDS: INSULIN ASPART PER UNIT CHARGE SC SCH ×4 (09:07→21:43)
[2023-04-16] MEDS: metroNIDAZOLE 500 MG TAB PO SCH ×3 (09:07→21:45)
[2023-04-16] MEDS: CIPROFLOXACIN 500 MG TAB PO SCH ×2 (09:07→21:46)
[2023-04-16] MEDS: METOPROLOL SUCC 50MG EXT REL TAB PO SCH (09:08)
[2023-04-16] MEDS: SPIRONOLACTONE 25 MG TAB PO SCH (09:08)
[2023-04-16] MEDS: APIXABAN 5 MG TABLET PO SCH ×2 (09:08→21:46)
[2023-04-16] MEDS: ATORVASTATIN 40 MG TAB PO SCH (09:09)
[2023-04-16] MEDS: busPIRone 5 MG TAB PO SCH ×2 (09:09→21:46)
[2023-04-16] MEDS: ASPIRIN 81 MG ECTAB PO SCH (09:09)
--- NOTE | 2023-04-16 11:30 | Orthopedic Consultation ---
Date of Service April 16, 2023 Assessment & Plan (1) Peroneus brevis tendinitis: Ester had an MRI of her right ankle that was ordered by Dr. Garcia her utilization supervisor. She obtained the MRI before she fell and was admitted to the hospital. The MRI showed some ganglion cyst and some tendinopathy of the peroneus brevis. She is not having any acute issues with the right ankle at this time. She will follow-up with Dr. Garcia for continued care. She is doing fairly well with her shoulder will follow-up with Dr. Rosado for that as scheduled. If you have any further questions please feel free to contact me personally on my cell phone at [phone] or contact me via [employer] text. Thank you History of Present Illness Reason for Consultation: Right ankle MRI. Requesting Physician: . Attending Physician: Quirino Bowman MD Ester is a pleasant 73-year-old female who had a syncopal episode a few days ago. She fell to the floor. She does have a history of a revision right rotator cuff repair done by Dr. Rosado about 2-1/2 months ago. She has been doing very well postoperatively. She is regaining her active range of motion and her shoulder pain had mostly subsided. She did not injure her shoulder in the fall. She has been following up with some foot and ankle issues with utilization supervisor Dr. Garcia. Dr. Garcia ordered an MRI of her right ankle and she had the MRI yesterday before she fell. The ankle MRI showed a cyst and some tendinopathy of the brevis. Orthopedics was consulted to evaluate. Allergies Allergy/AdvReac Type Severity Reaction Status Date / Time latex Allergy Intermediate Rash Verified 04/15/23 15:05 nickel Allergy Intermediate SEVERE Verified 04/15/23 15:05 DERMATITIS adhesive tape AdvReac Intermediate SKIN Verified 04/15/23 15:05 IRRITATION aspirin AdvReac Intermediate full dose Verified 04/15/23 15:05 asa -> bleeding ulcers NSAIDS (Non-Steroidal AdvReac Intermediate HX OF Verified 04/16/23 01:18 Anti-Inflamma BLEEDING ULCERS-TO AVOID Home Medications Medication Instructions Recorded Confirmed Type atorvastatin 40 mg tablet (Lipitor) 40 mg PO QAM 12/13/18 04/15/23 History levothyroxine 75 mcg tablet 75 mcg PO DAILYBB 12/13/18 04/15/23 History polyethylene glycol 3350 17 gram 17 g PO DAILY PRN Constipation 05/12/19 04/15/23 History oral powder packet promethazine 25 mg tablet 25 mg PO Q6H PRN Nausea 05/12/19 04/15/23 History epinephrine 0.3 mg/0.3 mL 0.3 mg IM Q3H PRN Allergic Reaction 05/23/19 04/15/23 History injection syringe nitroglycerin 0.3 mg sublingual 0.3 mg sublingual UD PRN Chest Pain 05/23/19 04/15/23 History tablet (Nitrostat) olopatadine 0.2 % eye drops 1 drp ophthalmic (eye) QAM 05/23/19 04/15/23 History tizanidine 4 mg tablet 4 mg PO BID PRN Muscle Spasm 04/03/20 04/15/23 History trazodone 100 mg tablet 300 mg PO HS 04/03/20 04/15/23 History furosemide 20 mg tablet 40 mg PO QAM 10/05/20 04/15/23 History metformin 500 mg tablet 500 mg PO BIDM 10/05/20 04/15/23 History loperamide 2 mg capsule 2 mg PO QID PRN Diarrhea 02/15/21 04/15/23 History apixaban 5 mg tablet (Eliquis) 5 mg PO BID 10/11/21 04/15/23 History aspirin 81 mg tablet,delayed 81 mg PO QAM 01/20/23 04/15/23 History release metoprolol succinate 100 mg 100 mg PO QAM 01/20/23 04/15/23 History tablet,extended release 24 hr semaglutide 2 mg/dose (8 mg/3 mL) 2 mg subcut WK 01/20/23 04/15/23 History subcutaneous pen injector (Ozempic) spironolactone 25 mg tablet 25 mg PO QAM 01/20/23 04/15/23 History ondansetron HCl 4 mg tablet 4 mg PO Q6 PRN nausea #15 tabs 02/13/23 04/15/23 Rx buspirone 10 mg tablet 10 mg PO BID 02/20/23 04/15/23 History ciprofloxacin HCl 500 mg tablet 500 mg PO BID 5 days #10 tabs 04/12/23 04/15/23 Rx (Cipro) metronidazole 500 mg tablet 500 mg PO TID 5 days #15 tabs 04/12/23 04/15/23 Rx plecanatide 3 mg tablet (Trulance) 3 mg PO QAM 04/15/23 04/15/23 History Past Med/Surg History Medical History Acute respiratory failure with hypoxia Anemia Anxiety CAD (coronary artery disease) BMS to LAD (2017) Cervical spondylolysis Chronic heart failure with preserved ejection fraction (HFpEF) Cyclic vomiting syndrome Cyclical vomiting Deep vein thrombosis ~2014, unknown cause Degenerative disc disease Depression Diabetes mellitus, type 2 Dyslipidemia Encounter for pre-operative examination GI bleed Hx (declined AC d/t hx of GIB per records) History of COVID-19 10/2021 - treated inpatient at [facility]/[place] [facility] History of pulmonary embolism Hx of Clostridium difficile infection Remote hx Hyperlipidemia Hypertension Hypothyroidism Intractable abdominal pain Migraine Hx, no recent issues Myocardial Infarction 2017 Non-specific colitis Osteoarthritis Post traumatic stress disorder Pulmonary embolism ~2014 (UNSURE OF REASON) Restless leg syndrome Scoliosis Vomiting Surgical History Fusion of spine LUMBAR H/O ovarian cystectomy x2 H/O repair of right rotator cuff H/O spinal fusion Multiple History of adenoidectomy History of anesthesia reaction Awareness with spinal surgeries History of appendectomy History of back surgery has bilateral SI Joint replacements (~2020 at [facility]) History of cataract surgery LEFT AND RIGHT History of colonoscopy History of esophagogastroduodenoscopy (EGD) History of heart artery stent 2017-x2 STENTS PLACED AT [facility] (DR. DAVILA) History of laminectomy and fusion "entire spine is fused(except cervical spine)" [facility] (Dr Catherine) History of tonsillectomy History of vascular access device Left upper chest port (*not a power port*) S/P hardware removal removal of all back hardware (~2002) [facility] [place] Family History Mother Hypertension Father Hypertension Other No family history of adverse response to anesthesia Social History Smoking Status: Never smoker Second Hand Exposure: No; Do You Dip or Chew Tobacco: No; Hx Alcohol Use: No Hx Substance Use: No Preferred Language: Austrian Communication Ability: Effective Visual Impairment: Limited Hearing Ability: Normal Nutritional Services Host Required: No Beliefs That Will Affect Care: None marital status: Current Living Situation: Alone current occupational status: retired How many Children do You have: 2 Feels Safe at Home: Yes Assistive Devices: Denture - Lower, Glasses and Walker Review of Systems All systems reviewed & are unremarkable except as noted in HPI & below. Physical Exam Physical examination of the right ankle, there is a previous incision. She has good motion of her ankle. She does not have much pain. There is no signs of acute trauma.. Constitutional WD/WN, vitals as above Eyes PERRL, conjunctivae normal, anicteric sclerae ENMT external ear and nose normal, oropharynx normal Neck trachea midline, no thyromegaly Respiratory normal respiratory effort, lungs clear to auscultation Cardiovascular RRR, no murmur, no edema Gastrointestinal (Abdomen) normal bowel sounds, soft, nontender, no hepatosplenomegaly Skin no rashes, warm and dry Psychiatric A+Ox3, euthymic affect Results & Data Results & Data Laboratory Results . Diagnostic Findings MRI of the right ankle was reviewed. It does show a small cystic area. There is some tendinopathy of the peroneus brevis and signs of possible plantar fasciitis.. PG Care Time/CCT Total # of Minutes Spent Total Time Spent with Patient: Total time spent is greater than 50% in coordination of care (as documented) at patient's floor/unit and/or counseling patient: Coding Level of Care Code 18855 IN/OBS CONSULT LVL 4,60M Diagnoses Peroneus brevis tendinitis M76.70
[2023-04-16] MEDS: oxyCODONE HCL IR 5 MG TAB (IMMEDIATE RELEASE) PO PRN ×2 (14:06→21:07)
[2023-04-16] MEDS ORDERED: KETOROLAC TROMETHAMINE 15 MG/ML VIAL IV PRN (14:09)
--- NOTE | 2023-04-16 18:02 | Hospitalist Progress Note ---
Date of Service April 16, 2023 Assessment & Plan (1) Syncope: (2) Acute dehydration: Plan 73-year-old lady with PMH of DVT/PE, C. difficile, HTN, HFpEF, HLD, hypothyroidism, DM presented to the ED 04/15 with complaint of weakness and syncope likely secondary to diarrhea. Patient reports no further diarrhea since the morning of arrival. Of note, she was recently discharged on 04/12 for colitis on metronidazole and ciprofloxacin. She is being managed for the following: Syncope/FaLL Weakness Diarrhea secondary to colitis: Resolved on the morning of arrival per patient. Weakness and syncope possibly related to hypovolemia from diarrhea in the se tting of colitis CT imaging of head/thoracic/lumbar/cervical showed no acute fracture Received IVF fluid in the ER, reports improvement. PT/OT eval Fall precaution Continue monitor in telemetry for any arrhythmia Follow orthostatic vitals Pain Mx w/ tylenol/oxycodone/ketorolac. Abn MRI ankle: ortho evaled, appreciate recs. pt to f/u w/ ortho on DC. Diarrhea likely 2/2 recent colitis: Recent discharge for colitis on Flagyl and Cipro. No more diarrhea since the morning of arrival per patient. Continue with Cipro and Flagyl as prescribed in the recent admission. Monitor electrolytes. Electrolyte imbalance: Mg 1.6 on admission. Monitor and replete. Other chronic medical conditions H/O PE/DVT: 2014; on Eliquis; continue for now. No stools noted since arrival to ED and Hgb 13.8. H/O CDiff: Years ago. Diarrhea has resolved this time. CAD: s/p AMI 2016, No stents placed. Stable and takes Baby ASA and eliquis DM2: Most recent A1C 5.7. Takes Metformin and Ozempic; hold while inpt. FSBS ACHS + SSI while inpatient. Continue monitor BS HTN: c/w home metoprolol. prn hydralazine on board. HFpEF: Continue Aldactone for now. Resume lasix from AM. Diarrhea has resolved. HLD: Continue Atorvastatin Depression: Continue Buspar Disposition: PT/OT, CM to assist. PCP: Dr. Webb Code Status: Full code Admission and Anticipated Discharge Date Admission Date: April 15, 2023 Subjective Patient seen and examined at bedside as a follow-up of syncope likely secondary to diarrhea at home, electrolyte imbalance. Patient was lying in bed, on room air, NAD, reports generalized body pain, reports no further diarrhea since yesterday morning. Patient reports just getting weak and falling down, denies any nausea/vomiting/dry heaves/sweating/palpitations/chest pain just prior to fall. Physical Exam Physical Exam: GENERAL: Alert and oriented x3. NAD, on RA. HEENT: No pallor, no icterus. Pupils equal, round and reactive to light. Oral mucosa moist. NECK: No JVD, no neck masses. HEART: S1 and S2 heard. Regular rate and rhythm. No murmur, no gallop. RESPIRATORY SYSTEM: Normal AP diameter. No accessory muscle use. No wheezing, no crackles. ABDOMEN: Soft, bowel sounds present, LLQ tender, no distention. CENTRAL NERVOUS SYSTEM: No facial droop. Speech is clear. Obeys simple commands. Moves extremities. EXTREMITIES: No edema, no erythema seen. Results & Data Results & Data Vital Signs (Past 12 Hours) Vital Signs Temp Pulse Pulse Resp BP Pulse Ox O2 Del Method 04/16/23 16:46 78 04/16/23 16:41 36.4 C L 65 18 136/85 91 Room Air 04/16/23 11:29 36.5 C 64 18 122/81 91 Room Air 04/16/23 08:06 36.4 C L 68 18 107/67 90 Room Air 04/16/23 07:00 77 04/16/23 06:30 36.6 C 84 20 95/61 L 94 Room Air (1) Syncope Syncope type: unspecified Qualified Code(s): R55 - Syncope and collapse
[2023-04-16] MEDS: traZODone HCL 100 MG TAB PO SCH (21:45)
[2023-04-16] MEDS: LIDOCAINE 5% 1 PATCH TD SCH (21:45)
[2023-04-16] MEDS ORDERED: LACTATED RINGER'S 1,000 ML IV ONE (22:23)
[2023-04-17] MEDS: ACETAMINOPHEN 325 MG TAB PO PRN (02:24)
[2023-04-17] MEDS: oxyCODONE HCL IR 5 MG TAB (IMMEDIATE RELEASE) PO PRN ×4 (04:06→22:30)
[2023-04-17] MEDS: LEVOTHYROXINE SODIUM 75 MCG TABLET PO SCH (05:47)
[2023-04-17 07:40] LABS: Hematocrit (blood only) 33.9 % (37.0-47.0); Hemoglobin 11.3 g/dl (12.0-16.0); Mean Corpuscular Hemoglobin 31.1 pg (25.0-34.0); Mean Corpuscular Hgb Conc 33.3 g/dL (32.0-36.0); Mean Corpuscular Volume 93.4 fL (80.0-100.0); Mean Platelet Volume 9.6 fL (9.4-12.4); Platelet Count 228 K/uL (130-400); RDW Coefficient of Variation 13.8 % (11.5-14.5); RDW Standard Deviation 47.2 fL (36.4-46.3); Red Blood Count 3.63 M/uL (4.20-5.40); White Blood Count 6.35 K/ul (4.8-10.8)
[2023-04-17 08:04] LABS: BUN Creatinine Ratio 13.6 (10-20); Calcium 8.4 mg/dl (8.6-10.3); Creatinine Clr Calc Pharmacy 89.3 ml/min; Est GFR (African American) 103.9 ml/min; Est GFR (Non-African American) 89.7 ml/min; Magnesium 1.7 mg/dl (1.7-2.4); Phosphorus 3.7 mg/dl (2.5-4.9); Potassium 3.8 mmol/L (3.5-5.1)
[2023-04-17] MEDS: INSULIN ASPART PER UNIT CHARGE SC SCH ×4 (08:10→21:01)
[2023-04-17] MEDS: busPIRone 5 MG TAB PO SCH ×2 (08:11→21:51)
[2023-04-17] MEDS: metroNIDAZOLE 500 MG TAB PO SCH ×3 (08:11→21:51)
[2023-04-17] MEDS: CIPROFLOXACIN 500 MG TAB PO SCH ×2 (08:11→21:51)
[2023-04-17] MEDS: APIXABAN 5 MG TABLET PO SCH ×2 (08:11→21:49)
[2023-04-17] MEDS: SPIRONOLACTONE 25 MG TAB PO SCH (08:12)
[2023-04-17] MEDS: METOPROLOL SUCC 50MG EXT REL TAB PO SCH (08:12)
[2023-04-17] MEDS: ATORVASTATIN 40 MG TAB PO SCH (08:12)
[2023-04-17] MEDS: ASPIRIN 81 MG ECTAB PO SCH (08:12)
[2023-04-17] MEDS: PROMETHAZINE HCL 25 MG TAB PO PRN (08:59)
--- NOTE | 2023-04-17 15:39 | Hospitalist Progress Note ---
Date of Service April 17, 2023 Assessment & Plan (1) Syncope: (2) Acute dehydration: Plan 73-year-old lady with PMH of DVT/PE, C. difficile, HTN, HFpEF, HLD, hypothyroidism, DM presented to the ED 04/15 with complaint of weakness and syncope likely secondary to diarrhea. Patient reports no further diarrhea since the morning of arrival. Of note, she was recently discharged on 04/12 for colitis on metronidazole and ciprofloxacin. She is being managed for the following: Syncope/FaLL Weakness Diarrhea secondary to colitis: Resolved on the morning of arrival per patient. Weakness and syncope possibly related to hypovolemia from diarrhea in the se tting of colitis CT imaging of head/thoracic/lumbar/cervical showed no acute fracture Received IVF fluid in the ER, reports improvement. PT/OT eval, likely will benefit from ongoing pt/ot, ?? snf or HH. Fall precaution, ortho vitals positive, recommend compression stocking/slow transitioning while changing position. Continue monitor in telemetry for any arrhythmia Pain Mx w/ tylenol/oxycodone/ketorolac. Abn MRI ankle: ortho evaled, appreciate recs. pt to f/u w/ ortho on DC. Diarrhea likely 2/2 recent colitis: Recent discharge for colitis on Flagyl and Cipro. No more diarrhea since the morning of arrival per patient. Continue with Cipro and Flagyl as prescribed in the recent admission. Monitor electrolytes. Pt still w/ LLQ pain, scale back to full liq diet today, monitor. Will extend cipro/flagyl for now, if w/ no clinical improvement consider repeat CT abd/pelvis. Electrolyte imbalance: Mg 1.6 on admission. Monitor and replete. Other chronic medical conditions H/O PE/DVT: 2015; on Eliquis; continue for now. No stools noted since arrival to ED and Hgb 13.8. H/O CDiff: Years ago. Diarrhea has resolved this time. CAD: s/p AMI 2017, No stents placed. Stable and takes Baby ASA and eliquis DM2: Most recent A1C 5.7. Takes Metformin and Ozempic; hold while inpt. FSBS ACHS + SSI while inpatient. Continue monitor BS HTN: c/w home metoprolol. prn hydralazine on board. HFpEF: Continue Aldactone for now. Resume lasix from AM. Diarrhea has resolved. HLD: Continue Atorvastatin Depression: Continue Buspar Disposition: PT/OT, CM to assist. PCP: Dr. Webb Code Status: Full code Admission and Anticipated Discharge Date Admission Date: April 15, 2023 Subjective Patient seen and examined at bedside as a follow-up of syncope likely secondary to diarrhea at home, electrolyte imbalance. Patient was lying in bed, on room air, NAD, reports generalized body pain slightly better, reports no further diarrhea since thursday morning. Pt reports being tired. Still w/ LLQ pain, will put her on full liq from soft diet. Continue to monitor. Physical Exam Physical Exam: GENERAL: Alert and oriented x3. NAD, on RA. HEENT: No pallor, no icterus. Pupils equal, round and reactive to light. Oral mucosa moist. NECK: No JVD, no neck masses. HEART: S1 and S2 heard. Regular rate and rhythm. No murmur, no gallop. RESPIRATORY SYSTEM: Normal AP diameter. No accessory muscle use. No wheezing, no crackles. ABDOMEN: Soft, bowel sounds present, LLQ tender, no distention. CENTRAL NERVOUS SYSTEM: No facial droop. Speech is clear. Obeys simple commands. Moves extremities. EXTREMITIES: No edema, no erythema seen. Results & Data Results & Data Vital Signs (Past 12 Hours) Vital Signs Temp Pulse Pulse Resp BP Pulse Ox O2 Del Method 04/17/23 15:28 67 04/17/23 08:15 Room Air 04/17/23 07:23 36.4 C L 74 18 120/79 94 Room Air 04/17/23 07:24 72 (1) Syncope Syncope type: unspecified Qualified Code(s): R55 - Syncope and collapse
[2023-04-17] MEDS: LIDOCAINE 5% 1 PATCH TD SCH (21:49)
[2023-04-17] MEDS: traZODone HCL 100 MG TAB PO SCH (21:52)
[2023-04-18] MEDS: oxyCODONE HCL IR 5 MG TAB (IMMEDIATE RELEASE) PO PRN ×2 (04:53→12:02)
[2023-04-18] MEDS: LEVOTHYROXINE SODIUM 75 MCG TABLET PO SCH (04:53)
[2023-04-18 05:49] LABS: Hematocrit (blood only) 34.6 % (37.0-47.0); Hemoglobin 11.9 g/dl (12.0-16.0); Mean Corpuscular Hemoglobin 31.6 pg (25.0-34.0); Mean Corpuscular Hgb Conc 34.4 g/dL (32.0-36.0); Mean Corpuscular Volume 91.8 fL (80.0-100.0); Mean Platelet Volume 9.8 fL (9.4-12.4); Platelet Count 248 K/uL (130-400); RDW Coefficient of Variation 13.9 % (11.5-14.5); RDW Standard Deviation 46.5 fL (36.4-46.3); Red Blood Count 3.77 M/uL (4.20-5.40); White Blood Count 7.61 K/ul (4.8-10.8)
[2023-04-18 06:04] LABS: BUN Creatinine Ratio 10.4 (10-20); Calcium 8.6 mg/dl (8.6-10.3); Creatinine Clr Calc Pharmacy 68.4 ml/min; Est GFR (African American) 87.5 ml/min; Est GFR (Non-African American) 75.5 ml/min; Magnesium 1.6 mg/dl (1.7-2.4); Phosphorus 3.7 mg/dl (2.5-4.9); Potassium 3.8 mmol/L (3.5-5.1)
[2023-04-18] MEDS: METOPROLOL SUCC 50MG EXT REL TAB PO SCH (07:44)
[2023-04-18] MEDS: ASPIRIN 81 MG ECTAB PO SCH (07:44)
[2023-04-18] MEDS: ATORVASTATIN 40 MG TAB PO SCH (07:45)
[2023-04-18] MEDS: busPIRone 5 MG TAB PO SCH (07:45)
[2023-04-18] MEDS: SPIRONOLACTONE 25 MG TAB PO SCH (07:45)
[2023-04-18] MEDS: APIXABAN 5 MG TABLET PO SCH (07:46)
[2023-04-18] MEDS: INSULIN ASPART PER UNIT CHARGE SC SCH ×2 (07:51→12:08)
[2023-04-18] MEDS: CIPROFLOXACIN 500 MG TAB PO SCH (09:05)
[2023-04-18] MEDS: metroNIDAZOLE 500 MG TAB PO SCH (09:05)
[2023-04-18] MEDS: MAGNESIUM SULFATE / D5W 1 GM/100 ML BAG IV SCH ×2 (09:33→11:35)
[2023-04-18] MEDS ORDERED: ADVANCED PROBIOTIC 1250 MG CAPSULE PO SCH (09:45)
[2023-04-18] MEDS: PROMETHAZINE HCL 25 MG TAB PO PRN (10:28)
[2023-04-18] MEDS: ACETAMINOPHEN 325 MG TAB PO PRN (11:33)
--- NOTE | 2023-04-18 12:53 | Discharge Summary ---
Date of Service April 18, 2023 Admission HPI Per Admitting Provider 73 years old female with past medical history of DVT/PE, C. difficile, hypertension, HFpEF, dyslipidemia, hypothyroidism, diabetes, presented to the ER with chief complaint of weakness diarrhea and syncope. Pt was recently discharged on 04/12 for colitis on Metronidazole and Cipro. She said that she continues to have recurrent watery diarrhea. She said that she had 5 episodes of diarrhea yesterday. Pt said that she has been feeling weak and dizzy associated with nausea. She said that her blood pressure was low last night. She said last night she felt very weak and dizzy while walking to the sink. She had a syncopal episode and found herself on the floor in her right side. She said that she could have been on the floor for about 15 minutes. She said that she is having so much pain around her shoulders, back of her neck. She had colonoscopy and EGD done on 04/13 where a 5mm polyp removed and gastritis. She said that she called her PCP this morning that told her to go to the ER for eval. She denies any chest pain, palpitation, dizziness, SOB and fever. Admission Exam Per Admitting Provider General- No acute distress Head- atraumatic Eyes- PERRL, EOMI, ENT- oropharynx clear Neck- supple, no JVD Lungs- clear to auscultation Heart- regular rhythm; no murmur Abdomen-+LLQ tenderness, +BS Extremities- no calf tenderness Neuro- alert, oriented x 3; PERRL, EOMI; no facial palsy; no dysarthria Skin- warm & dry Principal Diagnosis Syncope/fall Generalized weakness Diarrhea secondary to colitis and recent colon prep Abnormal MRI ankle Discharge Exam GENERAL: Alert and oriented x3. NAD, on RA. HEENT: No pallor, no icterus. Pupils equal, round and reactive to light. Oral mucosa moist. NECK: No JVD, no neck masses. HEART: S1 and S2 heard. Regular rate and rhythm. No murmur, no gallop. RESPIRATORY SYSTEM: Normal AP diameter. No accessory muscle use. No wheezing, no crackles. ABDOMEN: Soft, bowel sounds present, LLQ tender improving significantly, no distention. CENTRAL NERVOUS SYSTEM: No facial droop. Speech is clear. Obeys simple commands. Moves extremities. EXTREMITIES: No edema, no erythema seen. Discharge Data Allergies Allergy/AdvReac Type Severity Reaction Status Date / Time latex Allergy Intermediate Rash Verified 04/15/23 15:05 nickel Allergy Intermediate SEVERE Verified 04/15/23 15:05 DERMATITIS adhesive tape AdvReac Intermediate SKIN Verified 04/15/23 15:05 IRRITATION aspirin AdvReac Intermediate full dose Verified 04/15/23 15:05 asa -> bleeding ulcers NSAIDS (Non-Steroidal AdvReac Intermediate HX OF Verified 04/16/23 01:18 Anti-Inflamma BLEEDING ULCERS-TO AVOID Consultations 04/15/23 14:39 ED Decision to Admit Stat 04/16/23 09:17 Consult Orthopedic Surgery Routine Ordered Studies 04/15/23 12:29 CT cervical spine wo con Stat CT head/brain wo con Stat CT lumbar spine wo con Stat CT thoracic spine wo con Stat Hospital Course (1) Syncope: (2) Acute dehydration: Plan 73-year-old lady with PMH of DVT/PE, C. difficile, HTN, HFpEF, HLD, hypothyroidism, DM presented to the ED 04/15 with complaint of weakness and syncope likely secondary to diarrhea. Patient reports no further diarrhea since the morning of arrival. Of note, she was recently discharged on 04/12 for colitis on metronidazole and ciprofloxacin. She was managed for the following: Syncope/FaLL Weakness Diarrhea secondary to colitis: Resolved on the morning of arrival per patient. Weakness and syncope possibly related to hypovolemia from diarrhea in the setting of colitis CT imaging of head/thoracic/lumbar/cervical showed no acute fracture Received IVF fluid in the ER, reports improvement. PT/OT evaled, pt doens't want HH or rehab. Wants to go home on physical therapy, script provided. Fall precaution, ortho vitals positive, recommend compression stocking/slow transitioning while changing position. Pt is aware. Pain Mx w/ tylenol/oxycodone/lidocaine patch 4%. Abn MRI ankle: ortho evaled, appreciate recs. pt to f/u w/ ortho on DC. Pt is aware. Diarrhea likely 2/2 recent colitis/also recent colon prep: Recent discharge for colitis on Flagyl and Cipro. No more diarrhea since the morning of arrival per patient. Continue with Cipro and Flagyl as prescribed in the recent admission. Monitor electrolytes. Pt w/ improving LLQ pain, Will extend cipro/flagyl for now on dc. Pt hemodynamically stable and wants to go home today. Pt advised to continue with soft diet or scaling back on consistency of diet if increasing LLQ pain, pt has been reluctant. Electrolyte imbalance: Mg 1.6 on admission. Monitor and replete. Since diarrhea is resolved, expect it to be better stable, will need repeat labs in a week time at pcp office. Other chronic medical conditions H/O PE/DVT: 2015; on Eliquis; continue for now. No stools noted since arrival to ED and Hgb 13.8. H/O CDiff: Years ago. Diarrhea has resolved this time. CAD: s/p AMI 2016, No stents placed. Stable and takes Baby ASA and eliquis DM2: Most recent A1C 5.7. Takes Metformin and Ozempic; hold while inpt. FSBS ACHS + SSI while inpatient. Continue monitor BS HTN: c/w home metoprolol. prn hydralazine on board. HFpEF: Continue Aldactone for now. Resume lasix from AM. Diarrhea has resolved. HLD: Continue Atorvastatin Depression: Continue Buspar Disposition: PT/OT, CM to assist. PCP: Dr. Webb Code Status: Full code Patient being discharged to home with home physical therapy with following instruction at the point of discharge: Follow-up with your primary care physician within a week time and likely you will need labs CBC/CMP/magnesium/phosphorus. Maintain slow transition between changing position from lying to sitting and sitting to standing position as discussed at the bedside. Use compression stockings to help with orthostatic hypotension. You can use qigb-znu-xskychb Pedialyte solution to replace any fluid losses through diarrhea if diarrhea were to recur. If worsening left lower abdominal pain, contact emergency or your primary care physician. Your antibiotic will be extended for 5 more days upon discharge. Continue with probiotics. As recommended multiple times while in hospital, try to remain on soft consistency diet rather than regular consistency for few weeks to help with your colitis. Continue with physical therapy at home. For your ankle, follow-up with the orthopedics as an outpatient in 1 to 2 weeks. For your low back pain, you can use pqcz-ztu-nsmzrvj Tylenol for mild pain, you are being prescribed few days worth of Percocet for moderate to severe pain. You can also use wkfi-knl-aqproxh lidocaine patch 4% for moderate pain. If pain worsening/ongoing, you will need further evaluation by your PCP for further pain management/prescription. Please make sure that you are able to get your medications today by calling your pharmacy before you leave the hospital so that your treatment continuity is not broken. Home Health Attestation I certify that this patient is under my care and that I, or a physicians social worker assistant working with me, had a face to-face encounter that meets the critical access hospital mzwy-vs-ptna encounter requirements with this patient. The encounter with the patient was in whole, or in part, for the following medical condition, which is the primary reason for home health care (list medical condition): I certify that, based on my findings, the following services are medically necessary home health services: My clinical findings support the need for the above services because: Further, I certify that my clinical findings support that this patient is homebound (i.e. absences from home require considerable and taxing effort and are for medical reasons or rastafarian services or infrequently or of short duration when for other reasons) because: Certification for Home Health Services: Based on the above findings, I certify that this patient is confined to the home and needs intermittent senior living care, physical therapy and/or speech therapy or continues to need occupational therapy. The patient is under my care, and I have initiated the establishment of the plan of care. This patient will be followed by a physician who will periodically review the plan of care. Total Time Total Time Spent Total Time Spent (In Minutes): 45 Discharge Plan Discharge Items Patient Disposition: Home - Home Health Services Reason For Visit: WEAKNESS/SYNCOPE Discharge Diagnosis: Syncope/fall Generalized weakness Diarrhea secondary to colitis and recent colon prep Abnormal MRI ankle Activity: As commented below Activity Comment: slow transition between change in position. Non-emergency contact: Primary Care Provider Call non-emergency contact if: you have any medication questions, your symptoms worsen and your temperature is above 101 Follow-up/Referrals: Svetlana Jacobs DO [Primary Care Provider] - Diet: Carb Consistent or DM2 and Heart Healthy Addtl Attending Provider Instructions: Follow-up with your primary care physician within a week time and likely you will need labs CBC/CMP/magnesium/phosphorus. Maintain slow transition between changing position from lying to sitting and sitting to standing position as discussed at the bedside. Use compression stockings to help with orthostatic hypotension. You can use frfw-kfn-mhfiitg Pedialyte solution to replace any fluid losses through diarrhea if diarrhea were to recur. If worsening left lower abdominal pain, contact emergency or your primary care physician. Your antibiotic will be extended for 5 more days upon discharge. Continue with probiotics. As recommended multiple times while in hospital, try to remain on soft consist ency diet rather than regular consistency for few weeks to help with your colitis. Continue with physical therapy at home. For your ankle, follow-up with the orthopedics as an outpatient in 1 to 2 weeks. For your low back pain, you can use yubs-vwu-cspahtw Tylenol for mild pain, you are being prescribed few days worth of Percocet for moderate to severe pain. You can also use xmhl-orm-vswyyaj lidocaine patch 4% for moderate pain. If pain worsening/ongoing, you will need further evaluation by your PCP for further pain management/prescription. Please make sure that you are able to get your medications today by calling your pharmacy before you leave the hospital so that your treatment continuity is not broken. Pending Studies at Discharge: Yes Stand-Alone Forms: My [facility] [employer], Smoking Cessation Medications and DC Order Prescriptions: New Advanced Probiotic 625 mg (10 billion cell) Capsule 2 cap PO DAILY 14 Days Qty: 28 0RF oxycodone-acetaminophen [Percocet] 5-325 mg tablet 1 tab PO Q8H PRN (Reason: pain) 5 Days Qty: 15 0RF Continued ondansetron HCl 4 mg tablet 4 mg PO Q6 PRN (Reason: nausea) Qty: 15 0RF nitroglycerin [Nitrostat] 0.3 mg Tablet, Sublingual 0.3 mg sublingual UD PRN (Reason: Chest Pain) Rx Instructions: NEEDED FOR CHEST PAIN : ONE TABLET UNDER THE TONGUE EVERY 5 MINUTES UP TO 3 DOSES. olopatadine 0.2 % Drops 1 drp ophthalmic (eye) QAM epinephrine 0.3 mg/0.3 mL Syringe 0.3 mg IM Q3H PRN (Reason: Allergic Reaction) metformin 500 mg Tablet 500 mg PO BIDM furosemide 20 mg tablet 40 mg PO QAM Rx Instructions: may take additional dose as directed for edema. atorvastatin [Lipitor] 40 mg Tablet 40 mg PO QAM levothyroxine 75 mcg Tablet 75 mcg PO DAILYBB Rx Instructions: take before breakfast or other meds buspirone 10 mg tablet 10 mg PO BID polyethylene glycol 3350 17 gram Powder In Packet 17 g PO DAILY PRN (Reason: Constipation) promethazine 25 mg Tablet 25 mg PO Q6H PRN (Reason: Nausea) tizanidine 4 mg tablet 4 mg PO BID PRN (Reason: Muscle Spasm) trazodone 100 mg Tablet 300 mg PO HS loperamide 2 mg capsule 2 mg PO QID PRN (Reason: Diarrhea) Eliquis 5 mg tablet 5 mg PO BID Hold Instructions: Resume on 04/14/23. Hold for the GI procedure tomorrow. resume when cleared by GI Patient Comments: LAST DOSE YESTERDAY MORNING , STOP FOR SURGERY PER SENIOR PRODUCT MARKETING MANAGER /HAVE INSTRUCTIONS ON WHEN TO RE START. Trulance 3 mg tablet 3 mg PO QAM metronidazole 500 mg tablet 500 mg PO TID 5 Days Qty: 15 0RF Rx Instructions: Start Date 04/12/23 - End Date 04/17/23 ciprofloxacin HCl [Cipro] 500 mg tablet 500 mg PO BID 5 Days Qty: 10 0RF Rx Instructions: Start Date 04/12/23 - End Date 04/17/23 metoprolol succinate 100 mg Tablet Extended Release 24 Hr 100 mg PO QAM spironolactone 25 mg Tablet 25 mg PO QAM Ozempic 2 mg/dose (8 mg/3 mL) Pen Injector 2 mg SUBCUT WK Rx Instructions: Thursday aspirin 81 mg Tablet,Delayed Release (Dr/Ec) 81 mg PO QAM Patient Comments: LAST DOSE YESTERDAY MORNING, STOP FOR SURGERY PER SENIOR PRODUCT MARKETING MANAGER /HAVE INSTRUCTIONS ON WHEN TO RE START Discharge Orders: Discharge Order (Routine); Ordered 04/18/23 Ordered By: Quirino Bowman Admission Data Admit Date/Time: 04/15/23 16:46 Attending Provider: Quirino Bowman Admit Provider: Carissa Trevino Primary Care Provider: Svetlana Jacobs Other Providers: Carissa Trevino ; Michael Rosado
[2023-04-18] MEDS ORDERED: HEPARIN 100 UNIT/ML 5ML FLUSH FLUSH STA (13:42)
== END 2023-04-18 12:51 | disposition home or self-care (01) | DRG 394 ==
LOC: ED 11:34 → SUATTDRO 16:46 → 2W 16:46

== ENCOUNTER 2023-07-09 06:51 | Inpatient (IN) ==
--- NOTE | 2023-07-02 14:14 | Anesthesiology Consultation ---
Date of Service July 02, 2023 Assessment & Plan (1) Encounter for pre-operative examination: Chart Review Chart Review: Patient NOT seen in Pre Admission Testing Recent Anesthesia: EGD and Colonoscopy 04/13/23 (MAC without issue); R shoulder arthroscopy 01/29/23 (GA: ETT #7 Alex Kimball #2, Gr View 1) PCP clearance 07/02/23: "She is able to tolerate 4 METS of activity. Lab studies reviewed and appropriate. Stress test in October. Currently maximized for OR." Cardiology visit 06/01/23: Regular f/u and hospital f/u (pt admitted [facility] 04/15/23-04/18/23 for syncope... dx diarrhea 2/2 colitis and generalized weakness and bowel prep for recent EGD/colonoscopy). Med changes made: furosemide and spironolactone doses decreased 2/2 pt's orthostatic hypotension. Zio monitor ordered (subsequently reviewed and deemed WNL). Plan for 6month routine f/u. Infectious Disease screening: Per PAT nursing assessment on 07/02/23, No known infectious disease contacts in past 10 days or current infectious disease symptoms. No recent travel outside the country. History Surgery Operation Date: 07/09/23 07:15 Proposed Procedures p Right Shoulder Arthroscopy, Revision Rotator Cuff Repair, Possible Allograft Augmentation - Michael Rosado MD Height/Weight Height: 5 ft 4 in Weight: 74.843 kg Allergies Allergy/AdvReac Type Severity Reaction Status Date / Time latex Allergy Intermediate Rash Verified 07/02/23 12:49 nickel Allergy Intermediate SEVERE Verified 07/02/23 12:49 DERMATITIS adhesive tape AdvReac Intermediate SKIN Verified 07/02/23 12:49 IRRITATION aspirin AdvReac Intermediate full dose Verified 07/02/23 12:49 asa -> bleeding ulcers NSAIDS (Non-Steroidal AdvReac Intermediate HX OF Verified 07/02/23 12:49 Anti-Inflamma BLEEDING ULCERS-TO AVOID Medications Home Medications Medication Instructions Recorded Confirmed Last Taken atorvastatin 40 mg tablet (Lipitor) 40 mg PO QAM 12/13/18 07/02/23 04/15/23 levothyroxine 75 mcg tablet 75 mcg PO DAILYBB 12/13/18 07/02/23 04/15/23 polyethylene glycol 3350 17 gram 17 g PO DAILY PRN Constipation 05/12/19 07/02/23 01/26/23 oral powder packet promethazine 25 mg tablet 25 mg PO Q6H PRN Nausea 05/12/19 07/02/23 01/27/23 epinephrine 0.3 mg/0.3 mL 0.3 mg IM Q3H PRN Allergic Reaction 05/23/19 07/02/23 Unknown injection syringe nitroglycerin 0.3 mg sublingual 0.3 mg sublingual UD PRN Chest Pain 05/23/19 07/02/23 Unknown tablet (Nitrostat) olopatadine 0.2 % eye drops 1 drp ophthalmic (eye) QAM 05/23/19 07/02/23 04/15/23 tizanidine 4 mg tablet 4 mg PO BID PRN Muscle Spasm 04/03/20 07/02/23 01/28/23 19:00 trazodone 100 mg tablet 300 mg PO HS 04/03/20 07/02/23 04/14/23 furosemide 20 mg tablet 40 mg PO QAM 10/05/20 07/02/23 04/15/23 metformin 500 mg tablet 500 mg PO BIDM 10/05/20 07/02/23 04/15/23 loperamide 2 mg capsule 2 mg PO QID PRN Diarrhea 02/15/21 07/02/23 Unknown apixaban 5 mg tablet (Eliquis) 5 mg PO BID 10/11/21 07/02/23 04/15/23 aspirin 81 mg tablet,delayed 81 mg PO QAM 01/20/23 07/02/23 04/15/23 release metoprolol succinate 100 mg 100 mg PO QAM 01/20/23 07/02/23 04/14/23 tablet,extended release 24 hr semaglutide 2 mg/dose (8 mg/3 mL) 2 mg subcut WK 01/20/23 07/02/23 04/08/23 subcutaneous pen injector (Ozempic) spironolactone 25 mg tablet 25 mg PO QAM 01/20/23 07/02/23 04/14/23 ondansetron HCl 4 mg tablet 4 mg PO Q6 PRN nausea #15 tabs 02/13/23 07/02/23 Unknown buspirone 10 mg tablet 10 mg PO BID 02/20/23 07/02/23 04/15/23 diazepam 2 mg tablet 2 mg PO ONCE PRN anxiety #2 tabs 05/18/23 07/02/23 Unknown plecanatide 3 mg tablet (Trulance) 3 mg PO QAM #90 tabs 06/11/23 07/02/23 Unknown tramadol 50 mg tablet 50 - 100 mg PO Q6H PRN pain #30 06/29/23 07/02/23 Unknown tabs pantoprazole 40 mg tablet,delayed 40 mg PO QAM 07/02/23 07/02/23 Unknown release Past Medical History Medical History (Updated 07/02/23 @ 14:20 by Lucina Gold PA-C) Acute respiratory failure with hypoxia Anemia Anxiety Barretts esophagus on protonix; follows with GI CAD (coronary artery disease) 2 BMS to LAD (2016) Cervical spondylolysis Chronic heart failure with preserved ejection fraction (HFpEF) Cyclic vomiting syndrome Deep vein thrombosis ~2014, unknown cause Degenerative disc disease Depression Diabetes mellitus, type 2 06/26/23 Ha1c: 5.8% Dilation of thoracic aorta mild per cardio; monitoring Dyslipidemia GI bleed Hx (declined AC d/t hx of GIB per records) History of COVID-19 10/2021 - treated inpatient at [facility]/Covid PNA History of post-polio syndrome History of pulmonary embolism Hx of Clostridium difficile infection Remote hx Hyperlipidemia Hypertension Hypothyroidism Intractable abdominal pain Migraine Hx, no recent issues Myocardial Infarction NSTEMI 2016; s/p 2 BMS to LAD Non-specific colitis Orthostatic hypotension HOLLY (obstructive sleep apnea) noncompliant with CPAP per cardio note Osteoarthritis Post traumatic stress disorder Pulmonary embolism ~2014 (UNSURE OF REASON) Restless leg syndrome Scoliosis Past Family History Family History Mother Hypertension Father Hypertension Other No family history of adverse response to anesthesia Past Surgical History Surgical History Fusion of spine LUMBAR H/O ovarian cystectomy x2 H/O repair of right rotator cuff H/O spinal fusion Multiple History of adenoidectomy History of anesthesia reaction Awareness with spinal surgeries History of appendectomy History of back surgery has bilateral SI Joint replacements (~2020 at [facility]) History of cataract surgery LEFT AND RIGHT History of colonoscopy History of esophagogastroduodenoscopy (EGD) History of heart artery stent 2016-x2 STENTS PLACED AT [facility] (DR. DAVILA) History of laminectomy and fusion "entire spine is fused(except cervical spine)" [facility] [place] (Dr Catherine) 1989' History of tonsillectomy History of vascular access device Left upper chest port (*not a power port*) S/P hardware removal removal of all back hardware (~2002) ROSENDA Archuleta Social History Smoking Status: Never smoker Do You Dip or Chew Tobacco: No Hx Alcohol Use: No Hx Substance Use: No substance use type: does not use Lab Results Anesthesia Preop Results Results Anesthesia Widget: WBC 8.39 K/ul (4.8-10.8) 06/26/23 Hgb 14.8 g/dl (12.0-16.0) 06/26/23 Hct 42.1 % (37.0-47.0) 06/26/23 Plt 289 K/uL (130-400) 06/26/23 Na 137 mmol/L (136-145) 06/26/23 K 3.6 mmol/L (3.5-5.1) 06/26/23 Cl 102 mmol/L (98-107) 06/26/23 CO2 27 mmol/L (21-32) 06/26/23 BUN 15 mg/dl (6-23) 06/26/23 Creat 0.84 mg/dl (0.6-1.2) 06/26/23 Glucose Level 131 mg/dl (70-99(Fasting)) H 06/26/23 HA1c 5.8 % (4.5-5.6) H 06/26/23 Testing Electrocardiogram Date: 04/15/23 Findings: + NSR @ (64bpm) LAD. Inferior infarct and Anterior infarct (both cited on/before 06/18/2019). Compared to 01/29/23, No significant change found. Chest X-Ray Date: 04/15/23 Findings: + NAD The pulmonary vasculature is noncongested. Emphysema and chronic interstitial thickening similar to previous. There is bibasilar scarring/atelectasis. Scarring/atelectasis is noted at the lung bases. There are scattered calcified granulomas. No airspace consolidation or large pleural effusion is identified. No pneumothorax is seen. Echocardiogram Date: 11/06/22 EF: 55-59% mild cLVH. Gr I DD. No significant valve disease. The ascending aorta is borderline enlarged, 3.9cm. Stress Test Date: 11/06/22 Type: nuclear Findings: + WNL Negative Lexiscan nuclear stress for ischemia or scar. Gated SPECT images reveal normal myocardial thickening and wall motion. LVEF >70% Other Testing Zio Monitor 06/01/23-06/08/23: No significant bradycardia or pauses. Average HR 75bpm. No significant arrhythmias associated with triggered events. Neck CTA 02/15/21: Mild atherosclerotic plaque within the proximal right internal carotid artery. No stenosis or dissection within the major vessels of the neck.
[~2023-07-09 06:51] MED LIST changes: -ACETAMINOPHEN 1,000 MG/100 ML VIAL IV STA; -ALBUTEROL 0.083% NEBU SOLN 3 ML VIAL INH PRN; -ATROPINE SULFATE 0.1 MG/ML 10ML SYR IV PRN; +DEXAMETHASONE SOD INJ 4 MG/ML VIAL ONE; +KETAMINE 50 MG/5 ML SYRINGE ONE; -LABETALOL HCL IV 5 MG/ML 20ML IV PRN; +LIDOCAINE 2% 2 ML VIAL/AMP(20MG/ML) INFIL ONE; +MIDAZOLAM HCL 1 MG/ML 2ML VIAL ONE; -ONDANSETRON INJ 2 MG/ML 2 ML VIAL IV PRN; +ONDANSETRON INJ 2 MG/ML 2 ML VIAL ONE; +PROPOFOL IV EMULSION 10 MG/ML 20 ML VIAL IV ONE; +ROCURONIUM BROMIDE 10 MG/ML 5 ML VIAL IV ONE; +TRANEXAMIC ACID 1,000 MG **IV Pre-op IV SCH; -ePHEDrine sulfate 50 MG/ML AMP IV PRN; +fentaNYL citrate PF 100 MCG/2 ML VIAL ONE
[2023-07-09] MEDS ORDERED: SUGAMMADEX SODIUM 200 MG/2 ML VIAL IV ONE (08:03)
--- NOTE | 2023-07-09 08:41 | History & Physical Bridge Note ---
Date of Service July 09, 2023 History & Physical Bridge Note I have examined the patient, reviewed the History & Physical and in the interval since the performance of the History & Physical I have noted the following changes of clinical significance: no changes noted
--- NOTE | 2023-07-09 12:13 | Anesthesiology Progress Note ---
Date of Service July 09, 2023 Anesthesia Post Procedure Vital Signs Vital Signs: Temp Pulse Resp BP Pulse Ox O2 Del Method 07/09/23 07:34 36.8 C 81 18 140/92 93 Room Air Pain Intensity Right Shoulder: Pain Intensity: 6 Transfer of Care Handoff Completed per policy Notes Mental Status: alert / awake / arousable Patient Amnestic to Procedure: Yes Nausea / Vomiting: adequately controlled Pain: adequately controlled Airway Patency, RR, SpO2: stable & adequate BP & HR: stable & adequate Hydration State: stable & adequate Anesthetic Complications: no major complications apparent and Pt Satisfied with anesthetic care
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
[2023-07-09] MEDS ORDERED: ePHEDrine sulfate 50 MG/ML AMP IV PRN (12:25)
[2023-07-09] MEDS ORDERED: ATROPINE SULFATE 0.1 MG/ML 10ML SYR IV PRN (12:25)
[2023-07-09] MEDS ORDERED: PROMETHAZINE HCL 12.5 MG in SODIUM CHLORIDE 0.9% 50 ML IV PRN (12:25)
[2023-07-09] MEDS ORDERED: SODIUM CHLORIDE 0.9% 50 ML BAG ONE (12:36)
[2023-07-09] MEDS ORDERED: PROMETHAZINE HCL INJ 25 MG/ML 1 ML VIAL ONE (12:36)
[2023-07-09] MEDS: HYDROmorphone INJ 2 MG/ML SYR/VIAL IV PRN ×4 (12:38→13:20)
[2023-07-09] MEDS ORDERED: diphenhydrAMINE Capsule 25 MG CAP PO PRN (14:42)
[2023-07-09] MEDS ORDERED: HYDROmorphone INJ 0.5 MG/0.5 ML SYR IV PRN (14:42)
[2023-07-09] MEDS ORDERED: bisacodyL 10 MG SUPP PR PRN (14:42)
[2023-07-09] MEDS ORDERED: tiZANidine HCL 4 MG TABLET PO PRN (14:42)
[2023-07-09] MEDS ORDERED: NITROGLYCERIN 0.3 MG/1 TAB 100 TAB BTL SL PRN (14:42)
[2023-07-09] MEDS ORDERED: LOPERAMIDE HCL 2 MG CAP PO PRN (14:42)
[2023-07-09] MEDS ORDERED: diazePAM 2 MG TABLET PO PRN (14:42)
[2023-07-09] MEDS ORDERED: NALOXONE HCL 0.4 MG/1 ML VIAL/CARP IV PRN (14:42)
[2023-07-09] MEDS ORDERED: EPINEPHrine INJ 1 MG/ML AMP IM PRN (14:42)
[2023-07-09] MEDS ORDERED: ALUMINUM/MAGNESIUM SUSP 30 ML UDC PO PRN (14:42)
[2023-07-09] MEDS ORDERED: METOCLOPRAMIDE HCL INJ 5 MG/ML 2 ML VIAL IV PRN (14:42)
[2023-07-09] MEDS ORDERED: PROMETHAZINE HCL 25 MG TAB PO PRN (14:42)
[2023-07-09] MEDS ORDERED: POLYETHYLENE (MIRALAX) 17 GM PACK PO PRN (14:42)
[2023-07-09] MEDS ORDERED: MAGNESIUM HYDROXIDE SUSP 30 ML UDC PO PRN (14:42)
[2023-07-09] MEDS: SODIUM CHLORIDE 0.9% 1,000 ML IV SCH (15:08)
[2023-07-09] MEDS: HYDROmorphone INJ 1 MG/ML SYRINGE IV PRN ×3 (15:08→23:20)
[2023-07-09] MEDS: ACETAMINOPHEN 500 MG TAB PO SCH ×2 (15:15→22:19)
[2023-07-09] MEDS: ASCORBIC ACID 500 MG TAB PO SCH (16:45)
[2023-07-09] MEDS: ceFAZolin 2000MG 2,000 MG/15 ML SYR IV SCH (16:45)
[2023-07-09] MEDS: metFORMIN HCL 500 MG TAB PO SCH (16:45)
[2023-07-09] MEDS: oxyCODONE HCL IR 5 MG TAB (IMMEDIATE RELEASE) PO PRN ×2 (18:21→22:20)
[2023-07-09] MEDS: ONDANSETRON INJ 2 MG/ML 2 ML VIAL IV PRN (19:48)
[2023-07-09] MEDS ORDERED: APIXABAN 5 MG TABLET PO SCH (21:00)
[2023-07-09] MEDS: ASPIRIN 81 MG ECTAB PO SCH (21:09)
[2023-07-09] MEDS: DOCUSATE SODIUM 100 MG CAP PO SCH (21:10)
[2023-07-09] MEDS: busPIRone 5 MG TAB PO SCH (21:10)
[2023-07-09] MEDS: SENNA 8.6 MG TAB PO SCH (21:10)
[2023-07-09] MEDS: traZODone HCL 100 MG TAB PO SCH (21:10)
[2023-07-09] MEDS ORDERED: SODIUM CHLORIDE 0.65% NA SOLN 45 ML (OCEAN) ONE (21:22)
[2023-07-10] MEDS: ceFAZolin 2000MG 2,000 MG/15 ML SYR IV SCH (01:29)
[2023-07-10] MEDS: SODIUM CHLORIDE 0.9% 1,000 ML IV SCH (01:44)
[2023-07-10] MEDS: oxyCODONE HCL IR 5 MG TAB (IMMEDIATE RELEASE) PO PRN ×5 (02:13→21:20)
[2023-07-10] MEDS: HYDROmorphone INJ 1 MG/ML SYRINGE IV PRN ×5 (03:30→23:04)
[2023-07-10] MEDS: LEVOTHYROXINE SODIUM 75 MCG TABLET PO SCH (06:41)
[2023-07-10] MEDS: ACETAMINOPHEN 500 MG TAB PO SCH ×3 (06:41→22:07)
--- NOTE | 2023-07-10 08:36 | Orthopedic Progress Note ---
Date of Service July 10, 2023 Assessment & Plan (1) History of arthroscopy of right shoulder: Postop day 1 status post revision arthroscopic rotator cuff repair after reinjury. Operative course from her previous surgery was notable for balance issues and pain management. She was admitted until she is comfortable and safe to go home. I like her to have PT and OT evaluations for safety for discharge prior to considering discharge. Subjective Reports tolerable pain but the block is still in full effect. Tolerating diet. Has been out of bed. Review of Systems All systems reviewed & are unremarkable except as noted in HPI & below. Physical Exam R UE: Block in effect. Active extension and flexion of the digits. Minimal sensation throughout the extremity, as expected. Sling was readjusted Constitutional WD/WN, vitals as above no acute distress and not intoxicated appearing Respiratory normal respiratory effort; no labored breathing Cardiovascular Extremities: normal capillary refill Results & Data Results & Data Laboratory Results . Diagnostic Findings . PG Care Time/CCT Total # of Minutes Spent Total Time Spent with Patient: Total time spent is greater than 50% in coordination of care (as documented) at patient's floor/unit and/or counseling patient: Coding Level of Care Code 13660 Post Operative Follow-Up Diagnoses History of arthroscopy of right shoulder Z98.890
[2023-07-10] MEDS ORDERED: ASPIRIN 81 MG ECTAB PO SCH (09:00)
[2023-07-10] MEDS: ASPIRIN 81 MG ECTAB PO SCH ×2 (09:36→19:41)
[2023-07-10] MEDS: metFORMIN HCL 500 MG TAB PO SCH ×2 (09:36→17:11)
[2023-07-10] MEDS: PANTOprazole 40 MG TAB PO SCH (09:36)
[2023-07-10] MEDS: busPIRone 5 MG TAB PO SCH ×2 (09:36→19:40)
[2023-07-10] MEDS: MULTIVITAMIN TAB PO SCH (09:36)
[2023-07-10] MEDS: ATORVASTATIN 40 MG TAB PO SCH (09:37)
[2023-07-10] MEDS: APIXABAN 5 MG TABLET PO SCH ×2 (09:37→19:39)
[2023-07-10] MEDS: METOPROLOL SUCC 50MG EXT REL TAB PO SCH (09:37)
[2023-07-10] MEDS: ASCORBIC ACID 500 MG TAB PO SCH ×2 (09:37→17:11)
[2023-07-10] MEDS: SPIRONOLACTONE 25 MG TAB PO SCH (09:37)
[2023-07-10] MEDS: FUROSEMIDE 40 MG TAB PO SCH (09:37)
[2023-07-10] MEDS: DOCUSATE SODIUM 100 MG CAP PO SCH ×2 (09:43→19:38)
[2023-07-10] MEDS: traZODone HCL 100 MG TAB PO SCH (19:38)
[2023-07-10] MEDS: SENNA 8.6 MG TAB PO SCH (19:40)
[2023-07-11] MEDS: oxyCODONE HCL IR 5 MG TAB (IMMEDIATE RELEASE) PO PRN ×4 (02:53→22:24)
[2023-07-11] MEDS: HYDROmorphone INJ 1 MG/ML SYRINGE IV PRN ×2 (04:33→10:13)
[2023-07-11] MEDS: HEPARIN 100 UNIT/ML 5ML FLUSH FLUSH PRN ×3 (04:34→18:03)
[2023-07-11] MEDS: ACETAMINOPHEN 500 MG TAB PO SCH ×3 (05:41→22:28)
[2023-07-11] MEDS: LEVOTHYROXINE SODIUM 75 MCG TABLET PO SCH (05:43)
[2023-07-11] MEDS: FUROSEMIDE 40 MG TAB PO SCH (10:14)
[2023-07-11] MEDS: ATORVASTATIN 40 MG TAB PO SCH (10:14)
[2023-07-11] MEDS: ASPIRIN 81 MG ECTAB PO SCH ×2 (10:15→22:26)
[2023-07-11] MEDS: MULTIVITAMIN TAB PO SCH (10:15)
[2023-07-11] MEDS: PANTOprazole 40 MG TAB PO SCH (10:15)
[2023-07-11] MEDS: METOPROLOL SUCC 50MG EXT REL TAB PO SCH (10:15)
[2023-07-11] MEDS: APIXABAN 5 MG TABLET PO SCH ×2 (10:15→22:26)
[2023-07-11] MEDS: SPIRONOLACTONE 25 MG TAB PO SCH (10:15)
[2023-07-11] MEDS: busPIRone 5 MG TAB PO SCH ×2 (10:15→22:26)
[2023-07-11] MEDS: metFORMIN HCL 500 MG TAB PO SCH ×2 (10:15→17:55)
[2023-07-11] MEDS: ASCORBIC ACID 500 MG TAB PO SCH ×2 (10:16→17:55)
[2023-07-11] MEDS: DOCUSATE SODIUM 100 MG CAP PO SCH ×2 (10:31→22:27)
[2023-07-11] MEDS ORDERED: oxyCODONE HCL IR 5 MG TAB (IMMEDIATE RELEASE) PO STA (11:05)
--- NOTE | 2023-07-11 11:05 | Orthopedic Progress Note ---
Date of Service July 11, 2023 Assessment & Plan (1) History of arthroscopy of right shoulder: Postop day 2 status post revision arthroscopic rotator cuff repair after reinjury. Operative course from her previous surgery was notable for balance issues and pain management. Plan for inpatient stay today and evaluate pain management. We will try to wean from IV pain meds to oral. Previous inpatient stays pain course noted Dressing may stay on through tomorrow. Appreciate PT/OT treatment Subjective Rough night with block effect wearing off and been increasing. She required consistent parenteral opioid pain control. Had some desats this morning. No shortness of breath currently. She attributes to Raynaud's phenomenon in her finger. Pain tolerable at the moment. Still concerned about going home where she will have no help. Review of Systems All systems reviewed & are unremarkable except as noted in HPI & below. Physical Exam RUE: Dressing clean dry and intact. She is neurovascular intact. Results & Data Results & Data Laboratory Results . Diagnostic Findings . PG Care Time/CCT Total # of Minutes Spent Total Time Spent with Patient: Total time spent is greater than 50% in coordination of care (as documented) at patient's floor/unit and/or counseling patient: Coding Level of Care Code 18630 Post Operative Follow-Up Diagnoses History of arthroscopy of right shoulder Z98.890
[2023-07-11] MEDS ORDERED: HYDROmorphone INJ 1 MG/ML SYRINGE IV PRN (11:08)
[2023-07-11] MEDS: HYDROmorphone INJ 0.5 MG/0.5 ML SYR IV PRN (18:03)
[2023-07-11] MEDS: SENNA 8.6 MG TAB PO SCH (22:27)
[2023-07-11] MEDS: traZODone HCL 100 MG TAB PO SCH (22:27)
[2023-07-12] MEDS: HYDROmorphone INJ 0.5 MG/0.5 ML SYR IV PRN (00:11)
[2023-07-12] MEDS: HEPARIN 100 UNIT/ML 5ML FLUSH FLUSH PRN ×3 (00:11→13:28)
[2023-07-12] MEDS: LEVOTHYROXINE SODIUM 75 MCG TABLET PO SCH (05:48)
[2023-07-12] MEDS: ACETAMINOPHEN 500 MG TAB PO SCH (05:48)
[2023-07-12] MEDS: oxyCODONE HCL IR 5 MG TAB (IMMEDIATE RELEASE) PO PRN ×2 (08:05→12:53)
[2023-07-12] MEDS: ASPIRIN 81 MG ECTAB PO SCH (08:06)
[2023-07-12] MEDS: APIXABAN 5 MG TABLET PO SCH (08:06)
[2023-07-12] MEDS: DOCUSATE SODIUM 100 MG CAP PO SCH (08:06)
[2023-07-12] MEDS: MULTIVITAMIN TAB PO SCH (08:06)
[2023-07-12] MEDS: METOPROLOL SUCC 50MG EXT REL TAB PO SCH (08:06)
[2023-07-12] MEDS: busPIRone 5 MG TAB PO SCH (08:06)
[2023-07-12] MEDS: ATORVASTATIN 40 MG TAB PO SCH (08:06)
[2023-07-12] MEDS: SPIRONOLACTONE 25 MG TAB PO SCH (08:06)
[2023-07-12] MEDS: PANTOprazole 40 MG TAB PO SCH (08:07)
[2023-07-12] MEDS: FUROSEMIDE 40 MG TAB PO SCH (08:07)
[2023-07-12] MEDS: ASCORBIC ACID 500 MG TAB PO SCH (08:07)
[2023-07-12] MEDS: metFORMIN HCL 500 MG TAB PO SCH (08:07)
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
[2023-07-12] MEDS: ONDANSETRON INJ 2 MG/ML 2 ML VIAL IV PRN (13:28)
--- NOTE | 2023-07-17 09:44 | Coding Query ---
DEBRIDEMENT DOCUMENTATION To promote full compliance with coding requirements relating to patient care, physician participation is requested in all cases of web manager uncertainty. Please assist us with the question(s) below: Please place an X in the parenthesis (x). If other, please document the finding: Type of Debridement: ( ) Excisional Debridement- Cutting away necrotic, devitalized tissue or slough to the level of viable tissue using a sharp instrument (i.e. scalpel, scissors, etc.) ( ) Non Excisional Debridement- The removal of necrotic, devitalized tissue or slough by means of scraping, mechanical brushing, flushing, or washing (i.e. irrigation,whirlpool);minor removal of loose fragments. (x) Other (please specify): This is Arthroscopic Debridement: the extensive debridement included articular capsule (synovitis), anterior/posterior/superior labrum, and articular side of the rotator cuff. * CPT 93921 Arthroscopy, shoulder, surgical; debridement,limited, 1 or 2 discrete structures(e.g., humeral bone, humeral articular cartilage, glenoid bone, glenoid articular cartilage, biceps tendon, biceps anchor complex, labrum, articular capsule, articular side of the rotator cuff, bursal side of the rotator cuff, subacromial bursa, foreign body[ies]) * CPT 65141 Arthroscopy, shoulder, surgical; debridement,extensive, 3 or more discrete structures(e.g., humeral bone, humeral articular cartilage, glenoid bone, glenoid articular cartilage, biceps tendon, biceps anchor complex, labrum, articular capsule, articular side of the rotator cuff, bursal side of the rotator cuff, subacromial bursa, foreign body[ies]) Depth of Debridement: ( ) Skin ( ) Skin and Subcutaneous Tissue ( ) Skin, Subcutaneous Tissue and Muscle ( ) Skin, Subcutaneous Tissue, Muscle and Bone ( ) Other (please specify): Thank you Miya MARTINEZ
== END 2023-07-12 14:13 | disposition home or self-care (01) | DRG 501 ==
LOC: ASU 06:51 → 3W 06:51

== ENCOUNTER 2023-10-23 06:53 | Inpatient (IN) ==
--- NOTE | 2023-10-22 13:07 | Anesthesiology Consultation ---
Date of Service October 22, 2023 Assessment & Plan (1) Encounter for pre-operative examination: Plan - Per PAT RN discussion with patient, last dose of Ozempic was 10/20/23. Surgeon's notation: "...Physical exam was concerning for lack of shoulder function. Advanced imaging shows a large hematoma with associated effusion. Cannot exclude infection. Given the intractable pain and dysfunction and large effusion, I recommend surgical decompression. Will proceed with an urgent arthroscopic irrigation and debridement. She is on Ozempic and was not n.p.o. today. For that reason we will plan for tomorrow. I do not think this case can wait for 7 days due to progressive disability and intolerable pain, with the possibility of infection requiring urgent decompression. Will admit for an arthroscopic irrigation debridement as soon as possible. Plan for postoperative inpatient stay to evaluate cultures and pain management..." Acceptable to proceed per Dr. Hogan given urgency per Dr. Rosado. - check BSG am DOS. - ER 10/19/23 [facility]: "...severe right shoulder pain while laying in the bed. She has had prior rotator cuff shoulder in the past by Dr Rosado. Patient denies fall, chest pain, dyspnea, trauma to the area, localized weakness...advised to follow-up with her orthopedist in a few days..." - cardiology office visit/hospital follow-up 06/01/23 [facility]: "...hospital follow- up...diagnosed with orthostatic hypotension...syncopal episode prior to the most recent hospitalization, syncope x 15 minutes...reading of 70/50...hospitalization notable for colitis with associated diarrhea, dehydration, orthostasis...IV fluid resuscitation in the ER with improvement. Colitis was treated with Flagyl and Cipro...decreased furosemide from 40 mg to 20 mg/day. Decrease spironolactone from 25 to 12.5 mg/day...seven day Zio monitor...follow up in 6 months..." Subsequent [facility] notation on completed Zio monitor 06/17/23: "Zio monitor looks okay. Average heart rate 75 beats per min. No significant bradycardia or pauses. No significant arrhythmias associated with triggered events, 1 correlating with sinus at 69 bpm, the other correlating with sinus tachycardia at 107 bpm." - Per dialysis nurse on 10/22/2023: No known infectious disease contacts, current infectious disease symptoms in past 10 days or COVID positive test result in the past 30 days. Chart Review Chart Review: Acceptable Risk for Surgery and Patient NOT seen in Pre Admission Testing Consults Requested none ASA ASA4 Proposed Anesthesia Anesthesia Type: General Risk / Benefits Reviewed With: PT / POA / Parent / Guardian, Accepts Plan and Informed Consent Obtained History Surgery Operation Date: 10/23/23 08:30 Proposed Procedures p Right Shoulder Arthroscopy, Extensive Irrigation and Debridement - Michael Rosado MD Height/Weight Height: 5 ft 4 in Weight: 71 kg Allergies Allergy/AdvReac Type Severity Reaction Status Date / Time latex Allergy Intermediate Rash Verified 10/23/23 07:41 nickel Allergy Intermediate SEVERE Verified 10/23/23 07:41 DERMATITIS, difficulty breathing adhesive tape AdvReac Intermediate SKIN Verified 10/23/23 07:41 IRRITATION aspirin AdvReac Intermediate full dose Verified 10/23/23 07:41 asa -> bleeding ulcers NSAIDS (Non-Steroidal AdvReac Intermediate HX OF Verified 10/23/23 07:41 Anti-Inflamma BLEEDING ULCERS-TO AVOID Medications Home Medications Medication Instructions Recorded Confirmed Last Taken atorvastatin 40 mg tablet (Lipitor) 40 mg PO QAM 12/13/18 10/23/23 10/23/23 05:30 levothyroxine 75 mcg tablet 75 mcg PO QAM 12/13/18 10/23/23 10/23/23 05:30 polyethylene glycol 3350 17 gram 17 g PO DAILY PRN Constipation 05/12/1910/2301/26/23 oral powder packet promethazine 25 mg tablet 25 mg PO Q6H PRN Nausea 05/12/19 10/23/23 01/27/23 epinephrine 0.3 mg/0.3 mL 0.3 mg IM Q3H PRN Allergic Reaction 05/23/19 10/23/23 Unknown injection syringe nitroglycerin 0.3 mg sublingual 0.3 mg sublingual UD PRN Chest Pain 05/23/19 10/23/23 Unknown tablet (Nitrostat) olopatadine 0.2 % eye drops 1 drp ophthalmic (eye) QAM 05/23/19 10/23/23 10/19/23 tizanidine 4 mg tablet 4 mg PO BID PRN Muscle Spasm 04/03/20 10/23/23 10/22/23 20:00 trazodone 100 mg tablet 300 mg PO HS 04/03/20 10/23/23 10/21/23 furosemide 20 mg tablet 40 mg PO QAM 10/05/20 10/23/23 10/22/23 07:00 metformin 500 mg tablet 500 mg PO BIDM 10/05/20 10/23/23 10/23/23 05:30 loperamide 2 mg capsule 2 mg PO QID PRN Diarrhea 02/15/21 10/23/23 Unknown apixaban 5 mg tablet (Eliquis) 5 mg PO BID 10/11/21 10/23/23 10/22/23 06:30 aspirin 81 mg tablet,delayed 81 mg PO QAM 01/20/23 10/23/23 10/22/23 07:00 release metoprolol succinate 100 mg 100 mg PO QAM 01/20/23 10/23/23 10/23/23 05:30 tablet,extended release 24 hr semaglutide 2 mg/dose (8 mg/3 mL) 2 mg subcut WK 01/20/23 10/23/23 10/20/23 subcutaneous pen injector (Ozempic) spironolactone 25 mg tablet 25 mg PO QAM 01/20/23 10/23/23 10/22/23 07:00 buspirone 10 mg tablet 10 mg PO BID 02/20/23 10/23/23 10/23/23 06:00 plecanatide 3 mg tablet (Trulance) 3 mg PO QAM #90 tabs 06/11/23 10/23/23 10/23/23 06:00 pantoprazole 40 mg tablet,delayed 40 mg PO QAM 07/02/23 10/23/23 10/23/23 06:00 release acetaminophen 500 mg tablet 1,000 mg (2 x 500 mg) PO Q8 PRN 07/12/23 10/23/23 10/22/23 09:00 (Tylenol Extra Strength) pain #100 tabs oxycodone 5 mg tablet 5 - 10 mg (1 - 2 x 5 mg) PO Q4H 10/21/23 10/23/23 10/23/23 04:00 PRN pain, severe #30 tabs prednisone 10 mg tablets in a dose 10 mg PO UD #30 Tabs 10/21/23 10/23/23 10/23/23 06:00 pack 4 tablets NPO Date Last Intake of Fluids: 10/24/23 Time Last Intake of Fluids: 06:00 Last Intake of Fluids Comment: sip water w/ meds Date Last Intake of Solids: 10/22/23 Time Last Intake of Solids: 18:00 Past Medical History Medical History Dilation of thoracic aorta mild per cardio; monitoring HOLLY (obstructive sleep apnea) noncompliant with CPAP per cardio note History of post-polio syndrome Orthostatic hypotension Barretts esophagus on protonix; follows with GI Non-specific colitis Intractable abdominal pain Cyclic vomiting syndrome Diabetes mellitus, type 2 06/26/23 Ha1c: 5.8% Hx of Clostridium difficile infection Remote hx History of COVID-19 10/2021 - treated inpatient at [facility]/Covid PNA Chronic heart failure with preserved ejection fraction (HFpEF) EF 55-59% GI bleed Hx (declined AC d/t hx of GIB per records) CAD (coronary artery disease) 2 BMS to LAD (2016) Degenerative disc disease Hypothyroidism Anemia Post traumatic stress disorder Depression Anxiety Restless leg syndrome Migraine Hx, no recent issues Deep vein thrombosis ~2014, unknown cause Pulmonary embolism ~2014 (UNSURE OF REASON) Myocardial Infarction NSTEMI 2017; s/p 2 BMS to LAD Hypertension Hyperlipidemia Dyslipidemia Cervical spondylolysis Scoliosis Exercise / Class Metabolic Activity III < 4 Walking/Shop/Light housework Past Family History Family History Mother Hypertension Father Hypertension Other No family history of adverse response to anesthesia Past Surgical History Surgical History History of arthroscopy of right shoulder History of colonoscopy History of esophagogastroduodenoscopy (EGD) History of back surgery has bilateral SI Joint replacements (~2020 at [facility]) S/P hardware removal removal of all back hardware (~2002) [facility] History of vascular access device Left upper chest port (*not a power port*) History of cataract surgery LEFT AND RIGHT History of anesthesia reaction Awareness with spinal surgeries History of laminectomy and fusion "entire spine is fused(except cervical spine)" [facility] (Dr Catherine) 1990's Fusion of spine LUMBAR History of appendectomy History of tonsillectomy History of adenoidectomy History of heart artery stent 2017-x2 STENTS PLACED AT [facility] (DR. DAVILA) H/O ovarian cystectomy x2 H/O repair of right rotator cuff H/O spinal fusion Multiple Past Anesthesia History No Hx of Anesthesia Complications and No Family Hx of Anesthesia Complications History of PONV No Hx of PONV and No Hx of Motion Sickness Social History Smoking Status: Never smoker Do You Dip or Chew Tobacco: No Hx Alcohol Use: No Hx Substance Use: No substance use type: does not use Physical Exam Vital Signs Last Vital Signs Temp 36.5 C 10/23/23 07:29 Pulse 69 10/23/23 07:29 Resp 22 10/23/23 07:29 BP 153/98 H 10/23/23 07:29 Pulse Ox 94 10/23/23 07:29 O2 Del Method Room Air 10/23/23 07:29 ENMT Mouth: no dentition abnormality Thyromental Distance: < 3.5 Finger Breadths Mallampati Class: II Neck normal visual inspection and trachea midline; neck extension not limited Respiratory normal respiratory effort Auscultation: lungs clear to auscultation bilaterally Cardiovascular Rate/Rhythm: regular rate and regular rhythm Heart Sounds: no murmur Vessels: no carotid bruit Musculoskeletal Spine: normal cervical ROM Extremities: extremities normal to inspection Neurologic moves all extremities Motor/Sensory: no sensory deficit Psychiatric Orientation: alert and oriented x 3 Lab Results Anesthesia Preop Results Results Anesthesia Widget: WBC 9.89 K/ul (4.8-10.8) 10/16/23 Hgb 14.3 g/dl (12.0-16.0) 10/16/23 Hct 42.0 % (37.0-47.0) 10/16/23 Plt 289 K/uL (130-400) 10/16/23 Na 138 mmol/L (136-145) 10/16/23 K 3.9 mmol/L (3.5-5.1) 10/16/23 Cl 101 mmol/L (98-107) 10/16/23 CO2 30 mmol/L (21-32) 10/16/23 BUN 16 mg/dl (6-23) 10/16/23 Creat 0.85 mg/dl (0.6-1.2) 10/16/23 Glucose Level 80 mg/dl (70-99(Fasting)) 10/16/23 POC Glucose 157 mg/dl (70-99) H 10/23/23 TSH 1.340 uIu/ml (0.300-4.500) 10/16/23 HA1c 5.9 % (4.5-5.6) H 10/16/23 Testing Laboratory Results 10/23/23 07:24 POC Glucose 157 H Electrocardiogram Date: 04/15/23 NSR, rate 64 bpm Left axis deviation Inferior infarct, cited on or before 06/18/19 Anterior infarct, cited on or before 06/18/19 Chest X-Ray Date: 04/15/23 *1view* An AP, portable, upright chest radiograph is compared to study dated 04/06/2023 and correlated with chest CT dated 11/01/2021. The examination is degraded by portable technique, apical lordotic positioning, and patient rotation. Soft tissue density projects over the left lower chest. A left subclavian central venous infusion port is unchanged in position. The patient is status post midline sternotomy. The heart is enlarged. The pulmonary vasculature is noncongested. Emphysema and chronic interstitial thickening similar to previous. There is bibasilar scarring/atelectasis. Scarring/atelectasis is noted at the lung bases. There are scattered calcified granulomas. No airspace consolidation or large pleural effusion is identified. No pneumothorax is seen. The skeletal structures are osteopenic. There is chronic deformity of the left-sided ribs. There is mild S-shaped thoracolumbar scoliosis. IMPRESSION: Cardiomegaly and emphysema with no acute cardiopulmonary abnormality identified. Echocardiogram Date: 11/06/22 EF 55-59% Normal LV wall motion Mild cLVH Grade I diastolic dysfunction No significant valvular disease Stress Test Date: 11/06/22 Pharmacologic MPHR 66% Negative for ischemia or scar EF > 70% Normal LV wall motion Cervical Spine Date: 04/15/23 CT Alignment of the cervical spine is anatomic. Vertebral body heights are maintained. No acute cervical spine fracture or subluxation is present. There is no prevertebral edema. Facet joints are intact. Moderate multilevel degenerative disc disease and facet arthrosis is present. The appearance of the cervical spine is unchanged. IMPRESSION: No acute cervical spine fracture or subluxation. Other Testing Cardiac event monitor 06/01/23 Min HR 53 bpm, avg 75, max 174 Predominant rhythm: sinus rhythm SVT runs occurred-fastest interval 5 beats with max rate of 174 bpm; longest lasting 11 beats with avg rate 147 bpm Rare isolated SVEs, SVE couplets, SVE triplets, isolated VEs, VE couplets and VE triplets Ventricular bigeminy was present Abdomen pelvis CT 04/06/23 1. There is evidence of a nonspecific colitis of the sigmoid colon. Correlate clinically. 2. Colonic diverticulosis without CT evidence of acute diverticulitis. 3. Left-sided nephrolithiasis. 4. Cardiomegaly. 5. Additional findings as above. Head and neck CTA 02/15/21 Mild atherosclerotic plaque within the proximal right internal carotid artery. No stenosis or dissection within the major vessels of the neck. No significant stenosis, occlusion, or aneurysm within the mak[place] of [place].
--- NOTE | 2023-10-22 15:55 | History & Physical Report ---
Date of Service October 22, 2023 Assessment & Plan (1) Hematoma of shoulder: (2) Effusion of shoulder joint, right: (3) History of arthroscopy of right shoulder: Plan The patient has been in disabling pain for days and prompted an ER visit. Physical exam was concerning for lack of shoulder function. Advanced imaging shows a large hematoma with associated effusion. Cannot exclude infection. Given the intractable pain and dysfunction and large effusion, I recommend surgical decompression. Will proceed with an urgent arthroscopic irrigation and debridement. She is on Ozempic and was not n.p.o. today. For that reason we will plan for tomorrow. I do not think this case can wait for 7 days due to progressive disability and intolerable pain, with the possibility of infection requiring urgent decompression. Will admit for an arthroscopic irrigation debridement as soon as possible. Plan for postoperative inpatient stay to evaluate cultures and pain management. History of Present Illness Chief Complaint: Severe shoulder pain, postop Primary Care Provider: Svetlana Jacobs DO 73-year-old female seen in clinic yesterday for progressive right shoulder pain nearly 4 months out from revision rotator cuff repair. She has been treated in [place] with acupuncture with some good relief of abnormally high level of pain. When she returned she had increasing pain and now it is intolerable. She presented to the ED a few days ago. She presented to clinic for follow-up. My concern was for hematoma or infectious effusion so an MRI was obtained. The MRI results came back today. Allergies Allergy/AdvReac Type Severity Reaction Status Date / Time latex Allergy Intermediate Rash Verified 10/22/23 13:48 nickel Allergy Intermediate SEVERE Verified 10/22/23 13:48 DERMATITIS adhesive tape AdvReac Intermediate SKIN Verified 10/22/23 13:48 IRRITATION aspirin AdvReac Intermediate full dose Verified 10/22/23 13:48 asa -> bleeding ulcers NSAIDS (Non-Steroidal AdvReac Intermediate HX OF Verified 10/22/23 13:48 Anti-Inflamma BLEEDING ULCERS-TO AVOID Home Medications Medication Instructions Recorded Confirmed Type atorvastatin 40 mg tablet (Lipitor) 40 mg PO QAM 12/13/18 10/22/23 History levothyroxine 75 mcg tablet 75 mcg PO QAM 12/13/18 10/22/23 History polyethylene glycol 3350 17 gram 17 g PO DAILY PRN Constipation 05/12/19 10/22/23 History oral powder packet promethazine 25 mg tablet 25 mg PO Q6H PRN Nausea 05/12/19 10/22/23 History epinephrine 0.3 mg/0.3 mL 0.3 mg IM Q3H PRN Allergic Reaction 05/23/19 10/22/23 History injection syringe nitroglycerin 0.3 mg sublingual 0.3 mg sublingual UD PRN Chest Pain 05/23/19 10/22/23 History tablet (Nitrostat) olopatadine 0.2 % eye drops 1 drp ophthalmic (eye) QAM 05/23/19 10/22/23 History tizanidine 4 mg tablet 4 mg PO BID PRN Muscle Spasm 04/03/20 10/22/23 History trazodone 100 mg tablet 300 mg PO HS 04/03/20 10/22/23 History furosemide 20 mg tablet 40 mg PO QAM 10/05/20 10/22/23 History metformin 500 mg tablet 500 mg PO BIDM 10/05/20 10/22/23 History loperamide 2 mg capsule 2 mg PO QID PRN Diarrhea 02/15/21 10/22/23 History apixaban 5 mg tablet (Eliquis) 5 mg PO BID 10/11/21 10/22/23 History aspirin 81 mg tablet,delayed 81 mg PO QAM 01/20/23 10/22/23 History release metoprolol succinate 100 mg 100 mg PO QAM 01/20/23 10/22/23 History tablet,extended release 24 hr semaglutide 2 mg/dose (8 mg/3 mL) 2 mg subcut WK 01/20/23 10/22/23 History subcutaneous pen injector (Ozempic) spironolactone 25 mg tablet 25 mg PO QAM 01/20/23 10/22/23 History buspirone 10 mg tablet 10 mg PO BID 02/20/23 10/22/23 History plecanatide 3 mg tablet (Trulance) 3 mg PO QAM #90 tabs 06/11/23 10/22/23 Rx pantoprazole 40 mg tablet,delayed 40 mg PO QAM 07/02/23 10/22/23 History release acetaminophen 500 mg tablet 1,000 mg (2 x 500 mg) PO Q8 PRN 07/12/23 10/22/23 Rx (Tylenol Extra Strength) pain #100 tabs lorazepam 0.5 mg tablet (Ativan) 0.5 mg PO ONCE PRN anxiety #1 tab 10/21/23 10/22/23 Rx oxycodone 5 mg tablet 5 - 10 mg (1 - 2 x 5 mg) PO Q4H 10/21/23 10/22/23 Rx PRN pain, severe #30 tabs prednisone 10 mg tablets in a dose 10 mg PO UD #30 Tabs 10/21/23 10/22/23 Rx pack Past Med/Surg History Medical History Dilation of thoracic aorta mild per cardio; monitoring HOLLY (obstructive sleep apnea) noncompliant with CPAP per cardio note History of post-polio syndrome Orthostatic hypotension Barretts esophagus on protonix; follows with GI Non-specific colitis Intractable abdominal pain Cyclic vomiting syndrome Diabetes mellitus, type 2 06/26/23 Ha1c: 5.8% Hx of Clostridium difficile infection Remote hx History of COVID-19 10/2021 - treated inpatient at [facility]/Covid PNA Chronic heart failure with preserved ejection fraction (HFpEF) EF 55-59% GI bleed Hx (declined AC d/t hx of GIB per records) CAD (coronary artery disease) 2 BMS to LAD (2016) Degenerative disc disease Hypothyroidism Anemia Post traumatic stress disorder Depression Anxiety Restless leg syndrome Migraine Hx, no recent issues Deep vein thrombosis ~2014, unknown cause Pulmonary embolism ~2014 (UNSURE OF REASON) Myocardial Infarction NSTEMI 2017; s/p 2 BMS to LAD Hypertension Hyperlipidemia Dyslipidemia Cervical spondylolysis Scoliosis Surgical History History of arthroscopy of right shoulder History of colonoscopy History of esophagogastroduodenoscopy (EGD) History of back surgery has bilateral SI Joint replacements (~2020 at [facility]) S/P hardware removal removal of all back hardware (~2002) [facility] History of vascular access device Left upper chest port (*not a power port*) History of cataract surgery LEFT AND RIGHT History of anesthesia reaction Awareness with spinal surgeries History of laminectomy and fusion "entire spine is fused(except cervical spine)" [facility] (Dr Catherine) 1989' Fusion of spine LUMBAR History of appendectomy History of tonsillectomy History of adenoidectomy History of heart artery stent 2017-x2 STENTS PLACED AT [facility] (DR. DAVILA) H/O ovarian cystectomy x2 H/O repair of right rotator cuff H/O spinal fusion Multiple Family History Mother Hypertension Father Hypertension Other No family history of adverse response to anesthesia Social History Smoking Status: Never smoker Second Hand Exposure: No; Do You Dip or Chew Tobacco: No; Tobacco Cessation Education Requested by Patient: No Hx Alcohol Use: No Hx Substance Use: No Preferred Language: Chinese Communication Ability: Effective Visual Impairment: Limited Hearing Ability: Normal Elevator Examiner And Adjuster Required: No Beliefs That Will Affect Care: None marital status: Current Living Situation: Alone current occupational status: retired How many Children do You have: 2 Other Information That Helps Us Care for You: No Feels Safe at Home: Yes Safety Concerns: Feels Safe At This Time Assistive Devices: Denture - Lower and Glasses Assistive Devices Comment: partial lower denture, reading glasses prn Review of Systems All systems reviewed & are unremarkable except as noted in HPI & below. Physical Exam Right shoulder: The wounds are healed. There is no overlying severe skin edema or effusion palpable. She had exquisite tenderness and was very guarded with motion. Neurovascular intact. Constitutional WD/WN, vitals as above Respiratory normal respiratory effort; no respiratory distress Cardiovascular Extremities: normal capillary refill; no edema Chest (Breasts) Chest: normal inspection of chest Skin no rashes, warm and dry Psychiatric A+Ox3, euthymic affect Results & Data Results & Data Laboratory Results . Diagnostic Findings MRI was reviewed from the urgent return overnight. There is a large hematoma in the subacromial space with extensive effusion and subacromial bursal effusion. The size of the hematoma was displacing the humeral head and she was inferiorly subluxated. Due to the large effusion and significant hematoma, she was called for urgent care to decompress the space. PG Care Time/CCT Total # of Minutes Spent Total Time Spent with Patient: Total time spent is greater than 50% in coordination of care (as documented) at patient's floor/unit and/or counseling patient: Coding Level of Care Code None Diagnoses Hematoma of shoulder S40.019A Effusion of shoulder joint, right M25.411 History of arthroscopy of right shoulder Z98.890
[~2023-10-23 06:53] MED LIST changes: -DEXAMETHASONE SOD INJ 4 MG/ML VIAL ONE; -KETAMINE 50 MG/5 ML SYRINGE ONE; -LIDOCAINE 2% 2 ML VIAL/AMP(20MG/ML) INFIL ONE; -LR 60ML/HR IV SCH; -MIDAZOLAM HCL 1 MG/ML 2ML VIAL ONE; -ONDANSETRON INJ 2 MG/ML 2 ML VIAL ONE; -PROPOFOL IV EMULSION 10 MG/ML 20 ML VIAL IV ONE; -ROCURONIUM BROMIDE 10 MG/ML 5 ML VIAL IV ONE; -ceFAZolin 2000MG 2,000 MG/15 ML SYR IV SCH; -fentaNYL citrate PF 100 MCG/2 ML VIAL ONE
[2023-10-23] MEDS ORDERED: TRANEXAMIC ACID 1,000 MG in SODIUM CHLORIDE 0.9% 50 ML IV ONE (07:23)
[2023-10-23] MEDS ORDERED: ceFAZolin 2000MG 2,000 MG/15 ML SYR IV ONE (07:28)
[2023-10-23] MEDS ORDERED: MIDAZOLAM HCL 1 MG/ML 2ML VIAL ONE (08:04)
[2023-10-23] MEDS ORDERED: fentaNYL citrate PF 100 MCG/2 ML VIAL ONE ×2 (08:04→09:26)
[2023-10-23] MEDS ORDERED: ONDANSETRON INJ 2 MG/ML 2 ML VIAL ONE (08:29)
[2023-10-23] MEDS ORDERED: PROPOFOL IV EMULSION 10 MG/ML 20 ML VIAL IV ONE (08:29)
[2023-10-23] MEDS ORDERED: LIDOCAINE 2% 2 ML VIAL/AMP(20MG/ML) INFIL ONE (08:29)
[2023-10-23] MEDS ORDERED: DEXAMETHASONE SOD INJ 4 MG/ML VIAL ONE (08:29)
[2023-10-23] MEDS ORDERED: ROCURONIUM BROMIDE 10 MG/ML 5 ML VIAL IV ONE (08:29)
[2023-10-23] MEDS ORDERED: Nursing to Pharmacy Communication SCH (08:30)
--- NOTE | 2023-10-23 08:31 | History & Physical Bridge Note ---
Date of Service October 23, 2023 History & Physical Bridge Note I have examined the patient, reviewed the History & Physical and in the interval since the performance of the History & Physical I have noted the following changes of clinical significance: no changes noted
[2023-10-23] MEDS ORDERED: BUPIVACAINE/EPINEPHRINE 0.25% 1:200,000 30 ML VIAL ONE (09:13)
[2023-10-23] MEDS ORDERED: SUCCINYLCHOLINE CHLORIDE 20 MG/ML 10 ML VIAL IV ONE (09:36)
[2023-10-23] MEDS ORDERED: SUGAMMADEX SODIUM 200 MG/2 ML VIAL IV ONE ×2 (10:02→10:04)
[2023-10-23] MEDS ORDERED: NALOXONE HCL 0.4 MG/1 ML VIAL/CARP IV PRN ×2 (10:06→12:59)
[2023-10-23] MEDS ORDERED: FLUMAZENIL 0.1 MG/1 ML 10 ML VIAL IV PRN (10:06)
[2023-10-23] MEDS ORDERED: PROMETHAZINE HCL 12.5 MG in SODIUM CHLORIDE 0.9% 50 ML IV PRN (10:06)
[2023-10-23] MEDS ORDERED: ePHEDrine sulfate 50 MG/ML AMP IV PRN (10:06)
[2023-10-23] MEDS ORDERED: ONDANSETRON INJ 2 MG/ML 2 ML VIAL IV PRN ×2 (10:06→12:59)
[2023-10-23] MEDS ORDERED: ATROPINE SULFATE 0.1 MG/ML 10ML SYR IV PRN (10:06)
[2023-10-23] MEDS ORDERED: LABETALOL HCL IV 5 MG/ML 20ML IV PRN (10:06)
[2023-10-23] MEDS ORDERED: PHENYLEPHRINE HCL 10 MG/ML VIAL ONE (10:10)
[2023-10-23] MEDS: fentaNYL citrate PF 100 MCG/2 ML VIAL IV PRN ×4 (10:28→10:43)
--- NOTE | 2023-10-23 10:34 | Operative Report ---
PG Post Operative Report Pre & Post Diagnosis Operation Date: 10/23/23 08:30 Pre-Op Diagnosis: Post Operative Hematoma Right Shoulder Post-Op Diagnosis: Post Operative Hematoma Right Shoulder I identified the patient and participated in the time-out.: Yes Procedure Operation Date: 10/23/23 08:30 Actual Procedures p Right Shoulder Arthroscopy, Extensive Irrigation and Debridement(Right) - Michael Rosado MD Surgeon Michael Rosado MD Manager Mobile None Estimated Blood Loss 25 Findings See Below EUA demonstrated full passive range of motion without excessive external rotation. Arthroscopy revealed an intra-articular sanguinous effusion and an intact rotator cuff. The subacromial space revealed the large, expected, hematoma formation which was debrided. The bursal side of the rotator cuff showed integrity and full footprint coverage. Specimens Bloody synovial fluid aspiration x 2 for culture Anesthesia Type General Regional Complications none Disposition Accompanied Patient To Recovery: No Disposition: Recovery Room Indications 73-year-old female presented with extraordinary shoulder pain at 4 months after revision massive repair. Physical exam and subsequent advanced imaging were concerning for a symptomatic large subacromial hematoma. She was counseled on treatment options, and was desiring surgical intervention because of level of pain. I did offer elective surgical decompression of the subacromial space and evaluation to ensure no infection. We reviewed the risk, benefits, and alternatives. She wanted to proceed. Informed consent was obtained today in [facility] preoperative holding area. Description of Procedure On the day of surgery, the patient was greeted in the preoperative holding area. The informed consent was reviewed and confirmed by myself and the patient. The patient identified the surgical site, and it was marked by me. The patient was then turned over to anesthesia. The case was urgent and she had chronic Eliquis therapy for VTE, so no peripheral block was possible. The patient was positioned in the beachchair with all bony prominences well- padded. Skin was cleansed with ChloraPrep and I infused 60 cc of 0.25% Marcaine with epinephrine into the joint and subacromial space and lieu of the block. The operative extremity was then prepped and draped in usual sterile fashion for beachchair arthroscopy with Arthrex ciValueano arm positioner. Surgical timeout was called by the circulating nurse and verified all present. Antibiotics had been infused, and equipment was available and functional. We initiated the procedure by creating a standard posterior viewing portal for beachchair arthroscopy. Cursory diagnostic arthroscopy was carried out and an anterior portal was established using a spinal needle for localization. A motorized shaver was then introduced to address synovitis and improve visualization. Thorough diagnostic arthroscopy was carried out. There was a large bloody synovial fluid effusion which was evacuated. A motorized shaver was introduced and thorough debridement was carried out of the synovial tissue. [place] RF wand was then used to achieve hemostasis in a thorough manner given her hematoma complication. The underside of the rotator cuff was intact. The subscapularis was intact and healed. There are some adhesions from the capsule down to the superior glenoid tubercle which were released. The scope was then introduced into the subacromial space from the posterior portal. A lateral working portal was established. The large hematoma seen on MRI was easily identifiable. The motorized shaver was then introduced to perform the decompression. The entirety of the hematoma was evacuated from the gutters. It did extend down into the posterior and lateral subdeltoid gutter. RF [place] wand electrocautery was used to achieve hemostasis in the thorough manner once again. The care was then switched to the lateral working portal, and an accessory lateral viewing portal was established. We continued our inspection. We continue to debride the gutters of the hematoma. The bursal side of the rotator cuff had abundant scar and appeared of good healing and integrity. There was no disruption of the sutures. The subacromial space was then thoroughly irrigated. The [place] electrocautery wand was used throughout the subacromial space to ensure hemostasis. The subacromial space was then evacuated of arthroscopic fluid. Care was reintroduced into the joint 1 more time. Intra-articular exam demonstrated near anatomic reduction of the tissue and no recurrence of hematoma formation. Joint was deflated of arthroscopic fluid as well. All instruments were then removed. Wounds were approximated using 3-0 Monocryl suture in a buried knot fashion, backed up by Steri-Strips. The wounds are dressed sterile Xeroform, sterile gauze and ABD. Ioban tape was then used to secure the final dressing. The arm was placed in a standard postoperative sling. Patient tolerated the procedure well, was extubated in the operating room without complication, and transported the PACU in stable condition. Disposition: Patient will remain an inpatient to manage pain and ensure safety for mobilization with PT/OT evaluations. Will restart her Eliquis on postoperative day 1. Will keep TXA going today to avoid recurrent hematoma if possible. She will be range of motion and gentle weightbearing as tolerated particular for ADLs. She will be discharged when evaluated by PT and OT unit for postoperative care plan is established because she lives alone. Dressing will remain on for 3 days. I attest to the content of the Intraoperative Record and any orders documented therein. Any exceptions are noted below.
[2023-10-23] MEDS: HYDROmorphone INJ 1 MG/ML SYRINGE IV PRN ×12 (10:48→21:56)
[2023-10-23] MEDS ORDERED: HYDROmorphone INJ 0.5 MG/0.5 ML SYR IV PRN (11:40)
--- NOTE | 2023-10-23 12:17 | Anesthesiology Progress Note ---
Date of Service October 23, 2023 Anesthesia Post Procedure Vital Signs Vital Signs: Temp Pulse Resp BP Pulse Ox O2 Del Method O2 Flow Rate 10/23/23 11:40 86 18 150/78 H 96 Room Air 10/23/23 11:30 37 C 75 16 147/77 H 96 Room Air 10/23/23 11:20 84 18 140/85 95 Room Air 10/23/23 11:10 90 14 129/76 96 Room Air 10/23/23 11:00 86 16 135/97 98 Room Air 10/23/23 10:50 84 20 137/80 96 Room Air 10/23/23 10:40 80 24 134/75 95 Room Air 10/23/23 10:30 75 20 144/64 H 99 Oxymask 4 10/23/23 10:20 36.4 C L 87 18 121/91 100 Oxymask 6 10/23/23 07:29 36.5 C 69 22 153/98 H 94 Room Air Pain Intensity Right Shoulder: Pain Intensity: 7 Transfer of Care Handoff Completed per policy Notes Mental Status: alert / awake / arousable Patient Amnestic to Procedure: Yes Nausea / Vomiting: adequately controlled Pain: adequately controlled Airway Patency, RR, SpO2: stable & adequate BP & HR: stable & adequate Hydration State: stable & adequate Anesthetic Complications: no major complications apparent
[2023-10-23] MEDS ORDERED: PHARMACY GLYCEMIC MGMT CONSULT PRN (12:59)
[2023-10-23] MEDS ORDERED: METOCLOPRAMIDE HCL INJ 5 MG/ML 2 ML VIAL IV PRN (12:59)
[2023-10-23] MEDS ORDERED: diphenhydrAMINE 50 MG/ML VIAL IV PRN (12:59)
[2023-10-23] MEDS ORDERED: PROMETHAZINE HCL 25 MG TAB PO PRN (12:59)
[2023-10-23] MEDS ORDERED: MAGNESIUM HYDROXIDE SUSP 30 ML UDC PO PRN (12:59)
[2023-10-23] MEDS ORDERED: NITROGLYCERIN 0.3 MG/1 TAB 100 TAB BTL SL PRN (12:59)
[2023-10-23] MEDS ORDERED: LOPERAMIDE HCL 2 MG CAP PO PRN (12:59)
[2023-10-23] MEDS ORDERED: bisacodyL 10 MG SUPP PR PRN (12:59)
[2023-10-23] MEDS ORDERED: oxyCODONE HCL IR 5 MG TAB (IMMEDIATE RELEASE) PO PRN (12:59)
[2023-10-23] MEDS ORDERED: ALUMINUM/MAGNESIUM SUSP 30 ML UDC PO PRN (12:59)
[2023-10-23] MEDS ORDERED: POLYETHYLENE (MIRALAX) 17 GM PACK PO PRN (12:59)
[2023-10-23] MEDS ORDERED: ACETAMINOPHEN 500 MG TAB PO PRN (12:59)
[2023-10-23] MEDS: oxyCODONE HCL IR 5 MG TAB (IMMEDIATE RELEASE) PO PRN ×2 (14:06→18:37)
[2023-10-23] MEDS: tiZANidine HCL 4 MG TABLET PO PRN (14:06)
[2023-10-23] MEDS ORDERED: TRANEXAMIC ACID / 0.7% NACL 1,000 MG/100 ML BAG IV ONE (14:15)
[2023-10-23] MEDS ORDERED: EPINEPHrine INJ 1 MG/ML AMP IM PRN (14:36)
[2023-10-23] MEDS: ceFAZolin 2000MG 2,000 MG/15 ML SYR IV SCH ×2 (14:43→22:31)
[2023-10-23] MEDS ORDERED: GLUCOSE 40% GEL 15 GM TUBE PO PRN (14:45)
[2023-10-23] MEDS ORDERED: GLUCAGON FOR INJ 1 MG VIAL IM PRN (14:45)
[2023-10-23] MEDS ORDERED: DEXTROSE 50% 50 ML SYRINGE IV PRN (14:45)
[2023-10-23] MEDS ORDERED: GLUCOSE 10 TAB/TUBE PO PRN (14:45)
[2023-10-23] MEDS ORDERED: CARBOHYDRATES FOR HYPOGLYCEMIA PO PRN (14:45)
--- NOTE | 2023-10-23 14:48 | Pharmacy Report ---
Pharmacy Glycemic Short Note 2 - Date of Service October 23, 2023 - Glycemic Short BSG Results (Last 24 hours): 10/23/23 10/23/23 10/23/23 07:24 10:23 13:35 POC Glucose 157 H 120 H 143 H OUTPATIENT ANTIDIABETIC REGIMEN: * Metformin 500 mg PO BIDM * Ozempic 2 mg SC weekly HbA1c: 5.9% (10/16/23) ASSESSMENT: * PM is a 73 year old female POD #0 s/p right shoulder arthroscopy w/ excessive irrigation and debridement * Received 4 mg IV dexamethasone in OR * BSGs so far today of 157, 120, and 143 mg/dL * Excellent HbA1c on metformin and Ozempic - will plan on conservative initial insulin regimen PLAN FOR INPATIENT GLYCEMIC CONTROL: * Hold outpatient oral diabetes medications * Basal insulin * Lantus 0-10 units SQ HS (see EHR for details) * Bolus insulin * NovoLog per scale ACHS or Q6hrs while NPO * Goal Range: Low 110 mg/dL - High 140 mg/dL * Correction Factor: 30 mg/dL/unit * Nutritional / Prandial insulin per carb ratio of 1 unit per 10 grams CHO consumed
[2023-10-23] MEDS: FUROSEMIDE 40 MG TAB PO SCH (15:38)
[2023-10-23] MEDS: MULTIVITAMIN TAB PO SCH (15:39)
[2023-10-23] MEDS: DOCUSATE SODIUM 100 MG CAP PO SCH ×2 (15:40→20:40)
[2023-10-23] MEDS: SPIRONOLACTONE 25 MG TAB PO SCH (15:40)
[2023-10-23] MEDS: SODIUM CHLORIDE 0.9% 1,000 ML IV SCH (15:44)
[2023-10-23] MEDS ORDERED: metFORMIN HCL 500 MG TAB PO SCH (17:00)
[2023-10-23] MEDS: OLOPATADINE~ORDER AWAITING ACTION SCH (17:59)
[2023-10-23] MEDS: HYDROmorphone INJ 0.5 MG/0.5 ML SYR IV PRN (18:15)
[2023-10-23] MEDS: ASCORBIC ACID 500 MG TAB PO SCH (18:19)
[2023-10-23] MEDS: FERROUS GLUCONATE 324 MG TAB PO SCH (18:19)
[2023-10-23] MEDS: INSULIN ASPART PER UNIT CHARGE SC SCH ×2 (18:38→20:46)
[2023-10-23] MEDS: SENNA 8.6 MG TAB PO SCH (20:40)
[2023-10-23] MEDS: busPIRone 5 MG TAB PO SCH (20:41)
[2023-10-23] MEDS: traZODone HCL 100 MG TAB PO SCH (20:41)
[2023-10-23] MEDS: LANTUS PER UNIT CHARGE SC SCH (20:48)
[2023-10-24] MEDS: oxyCODONE HCL IR 5 MG TAB (IMMEDIATE RELEASE) PO PRN ×2 (00:29→06:14)
[2023-10-24] MEDS: HYDROmorphone INJ 1 MG/ML SYRINGE IV PRN ×4 (03:29→20:24)
[2023-10-24] MEDS: SODIUM CHLORIDE 0.9% 1,000 ML IV SCH (03:41)
[2023-10-24] MEDS: OLOPATADINE~ORDER AWAITING ACTION SCH ×4 (03:42→23:34)
[2023-10-24] MEDS: LEVOTHYROXINE SODIUM 75 MCG TABLET PO SCH (06:07)
[2023-10-24 07:10] LABS: Hemoglobin 11.7 g/dl (12.0-16.0); Mean Corpuscular Hemoglobin 30.1 pg (25.0-34.0); Mean Corpuscular Hgb Conc 34.4 g/dL (32.0-36.0); Mean Corpuscular Volume 87.4 fL (80.0-100.0); Mean Platelet Volume 10.1 fL (9.4-12.4); Platelet Count 266 K/uL (130-400); RDW Coefficient of Variation 14.5 % (11.5-14.5); RDW Standard Deviation 46.3 fL (36.4-46.3); Red Blood Count 3.89 M/uL (4.20-5.40); White Blood Count 13.91 K/ul (4.8-10.8)
[2023-10-24 07:14] LABS: BUN Creatinine Ratio 15.9 (10-20); Creatinine Clr Calc Pharmacy 70.2 ml/min; Est GFR (African American) 98.7 ml/min; Est GFR (Non-African American) 85.2 ml/min; Potassium 3.6 mmol/L (3.5-5.1)
--- NOTE | 2023-10-24 09:17 | Orthopedic Progress Note ---
Date of Service October 24, 2023 Assessment & Plan (1) Hematoma of shoulder: (2) Effusion of shoulder joint, right: (3) History of arthroscopy of right shoulder: Plan POD1. Making expected progress. Remains inpatient for pain control and pending cultures - continue 24 abx ppx - Restart home meds ie eliquis/asa - Wean from IV pain control - Mobilize PT/OT - Observe cultures - d/c planning for tomorrow Subjective Remains with significant pain. Minimal sleep. IV meds effective but not long lasting. Reviewed arthroscopic findings and plan to watch cultures today. Review of Systems All systems reviewed & are unremarkable except as noted in HPI & below. Physical Exam RUE: Dressing clean and dry. DNVI. Constitutional WD/WN, vitals as above no acute distress and not intoxicated appearing Respiratory normal respiratory effort; no labored breathing Cardiovascular Extremities: normal capillary refill Results & Data Results & Data Laboratory Results Laboratory Tests 10/24/23 06:27 WBC 13.91 H Hgb 11.7 L Hct 34.0 L Gram stains negative 2 synovial fluid cultures P Diagnostic Findings . PG Care Time/CCT Total # of Minutes Spent Total Time Spent with Patient: Total time spent is greater than 50% in coordination of care (as documented) at patient's floor/unit and/or counseling patient: Coding Level of Care Code 66124 Post Operative Follow-Up Diagnoses Hematoma of shoulder S40.019A Effusion of shoulder joint, right M25.411 History of arthroscopy of right shoulder Z98.890
[2023-10-24] MEDS ORDERED: HYDROmorphone HCL 2 MG TAB PO PRN (09:30)
[2023-10-24] MEDS: FERROUS GLUCONATE 324 MG TAB PO SCH ×2 (10:28→17:17)
[2023-10-24] MEDS: ASPIRIN 81 MG ECTAB PO SCH (10:29)
[2023-10-24] MEDS: FUROSEMIDE 40 MG TAB PO SCH (10:29)
[2023-10-24] MEDS: APIXABAN 5 MG TABLET PO SCH ×2 (10:30→20:41)
[2023-10-24] MEDS: busPIRone 5 MG TAB PO SCH ×2 (10:30→20:41)
[2023-10-24] MEDS: ATORVASTATIN 40 MG TAB PO SCH (10:32)
[2023-10-24] MEDS: ASCORBIC ACID 500 MG TAB PO SCH ×2 (10:32→17:16)
[2023-10-24] MEDS: DOCUSATE SODIUM 100 MG CAP PO SCH ×2 (10:33→20:40)
[2023-10-24] MEDS: METOPROLOL SUCC 50MG EXT REL TAB PO SCH (10:34)
[2023-10-24] MEDS: MULTIVITAMIN TAB PO SCH (10:35)
[2023-10-24] MEDS: PANTOprazole 40 MG TAB PO SCH (10:35)
[2023-10-24] MEDS: SPIRONOLACTONE 25 MG TAB PO SCH (10:36)
[2023-10-24] MEDS: predniSONE 10 MG TABLET PO SCH (10:36)
[2023-10-24] MEDS: INSULIN ASPART PER UNIT CHARGE SC SCH ×4 (10:42→20:40)
[2023-10-24] MEDS: ACETAMINOPHEN 500 MG TAB PO SCH ×2 (14:20→21:28)
[2023-10-24] MEDS: HYDROmorphone INJ 0.5 MG/0.5 ML SYR IV PRN (15:56)
[2023-10-24] MEDS: LANTUS PER UNIT CHARGE SC SCH (20:39)
[2023-10-24] MEDS: SENNA 8.6 MG TAB PO SCH (20:40)
[2023-10-24] MEDS: tiZANidine HCL 4 MG TABLET PO PRN (21:26)
[2023-10-24] MEDS: traZODone HCL 100 MG TAB PO SCH (21:26)
[2023-10-25] MEDS: HYDROmorphone INJ 1 MG/ML SYRINGE IV PRN (02:38)
[2023-10-25] MEDS: ACETAMINOPHEN 500 MG TAB PO SCH ×3 (05:32→20:08)
[2023-10-25] MEDS: LEVOTHYROXINE SODIUM 75 MCG TABLET PO SCH (05:32)
[2023-10-25] MEDS: OLOPATADINE~ORDER AWAITING ACTION SCH ×3 (07:42→22:14)
[2023-10-25] MEDS: HYDROmorphone HCL 2 MG TAB PO PRN ×2 (08:04→15:53)
[2023-10-25] MEDS: PANTOprazole 40 MG TAB PO SCH (08:05)
[2023-10-25] MEDS: predniSONE 10 MG TABLET PO SCH (08:05)
[2023-10-25] MEDS: METOPROLOL SUCC 50MG EXT REL TAB PO SCH (08:05)
[2023-10-25] MEDS: SPIRONOLACTONE 25 MG TAB PO SCH (08:06)
[2023-10-25] MEDS: MULTIVITAMIN TAB PO SCH (08:06)
[2023-10-25] MEDS: ATORVASTATIN 40 MG TAB PO SCH (08:06)
[2023-10-25] MEDS: ASPIRIN 81 MG ECTAB PO SCH (08:06)
[2023-10-25] MEDS: FUROSEMIDE 40 MG TAB PO SCH (08:06)
[2023-10-25] MEDS: INSULIN ASPART PER UNIT CHARGE SC SCH ×4 (09:27→20:09)
[2023-10-25] MEDS: ASCORBIC ACID 500 MG TAB PO SCH ×2 (09:28→17:11)
[2023-10-25] MEDS: busPIRone 5 MG TAB PO SCH ×2 (09:28→20:09)
[2023-10-25] MEDS: APIXABAN 5 MG TABLET PO SCH ×2 (09:28→20:08)
[2023-10-25] MEDS: FERROUS GLUCONATE 324 MG TAB PO SCH ×2 (09:29→17:11)
[2023-10-25] MEDS: DOCUSATE SODIUM 100 MG CAP PO SCH ×2 (09:30→20:11)
[2023-10-25] MEDS: HYDROmorphone INJ 0.5 MG/0.5 ML SYR IV PRN ×2 (11:57→18:32)
--- NOTE | 2023-10-25 12:42 | Orthopedic Progress Note ---
Date of Service October 25, 2023 Assessment & Plan (1) Hematoma of shoulder: (2) Effusion of shoulder joint, right: (3) History of arthroscopy of right shoulder: Plan POD2. Making slow progress in regard to pain, similar to previous episodes - Hold antibiotics for now. Cultures unrevealing, as expected - Wean from IV pain control - Mobilize w PT/OT - d/c planning for tomorrow - Dressing down in the am. Needs another day for pain mgt and benefits of PT/OT to safely accomplish ADLs. Lives alone - complicates discharge. Can resume outpatient PT upon discharge. Subjective She states there is some progress. Pain still at 68/10 at times. She has had some IV Dilaudid but mostly oral control. Therapy continues. Review of Systems All systems reviewed & are unremarkable except as noted in HPI & below. Physical Exam Dressing is clean and dry. She is neurovascular intact. She can flex to the elbow but any movement through the shoulder is quite irritable. Constitutional WD/WN, vitals as above no acute distress and not intoxicated appearing Respiratory normal respiratory effort; no labored breathing Cardiovascular Extremities: normal capillary refill Results & Data Results & Data Laboratory Results . Diagnostic Findings . PG Care Time/CCT Total # of Minutes Spent Total Time Spent with Patient: Total time spent is greater than 50% in coordination of care (as documented) at patient's floor/unit and/or counseling patient: Coding Level of Care Code 95982 Post Operative Follow-Up Diagnoses Hematoma of shoulder S40.019A Effusion of shoulder joint, right M25.411 History of arthroscopy of right shoulder Z98.890
[2023-10-25] MEDS: traZODone HCL 100 MG TAB PO SCH (20:08)
[2023-10-25] MEDS: LANTUS PER UNIT CHARGE SC SCH (20:09)
[2023-10-25] MEDS: SENNA 8.6 MG TAB PO SCH (20:09)
[2023-10-26] MEDS: HYDROmorphone HCL 2 MG TAB PO PRN ×3 (00:16→12:59)
[2023-10-26] MEDS: HYDROmorphone INJ 0.5 MG/0.5 ML SYR IV PRN (04:08)
[2023-10-26] MEDS: ACETAMINOPHEN 500 MG TAB PO SCH (04:10)
[2023-10-26] MEDS: LEVOTHYROXINE SODIUM 75 MCG TABLET PO SCH (04:10)
[2023-10-26] MEDS: OLOPATADINE~ORDER AWAITING ACTION SCH (07:36)
[2023-10-26] MEDS: INSULIN ASPART PER UNIT CHARGE SC SCH ×2 (08:08→12:27)
[2023-10-26] MEDS: PANTOprazole 40 MG TAB PO SCH (08:09)
[2023-10-26] MEDS: METOPROLOL SUCC 50MG EXT REL TAB PO SCH (08:09)
[2023-10-26] MEDS: FERROUS GLUCONATE 324 MG TAB PO SCH (08:09)
[2023-10-26] MEDS: MULTIVITAMIN TAB PO SCH (08:10)
[2023-10-26] MEDS: SPIRONOLACTONE 25 MG TAB PO SCH (08:10)
[2023-10-26] MEDS: predniSONE 10 MG TABLET PO SCH (08:10)
[2023-10-26] MEDS: ASPIRIN 81 MG ECTAB PO SCH (08:10)
[2023-10-26] MEDS: busPIRone 5 MG TAB PO SCH (08:10)
[2023-10-26] MEDS: ATORVASTATIN 40 MG TAB PO SCH (08:10)
[2023-10-26] MEDS: APIXABAN 5 MG TABLET PO SCH (08:10)
[2023-10-26] MEDS: ASCORBIC ACID 500 MG TAB PO SCH (08:10)
[2023-10-26] MEDS: FUROSEMIDE 40 MG TAB PO SCH (08:10)
[2023-10-26] MEDS: DOCUSATE SODIUM 100 MG CAP PO SCH (08:15)
--- NOTE | 2023-10-26 12:08 | Orthopedic Progress Note ---
Date of Service October 26, 2023 Assessment & Plan (1) Hematoma of shoulder: (2) Effusion of shoulder joint, right: (3) History of arthroscopy of right shoulder: Plan POD3. Making slow progress in regard to pain, similar to previous episodes - Hold antibiotics for now. Cultures unrevealing, as expected - Wean from IV pain control - Mobilize w PT/OT - d/c planning for today - Dressing down today. PT/OT prior to discharge to safely accomplish ADLs. Lives alone - complicates discharge. Can resume outpatient PT upon discharge. -F/U with Dr. Rosado in 7-10 days for post operative care. Subjective . Ester was seen and evaluated this morning resting comfortably at bedside. She was just seen by Occupational Therapy and which got her ready for the day. She has yet to be seen by physical therapy this morning. She notes that she has been doing exercises over the weekend and has been feeling a lot better since her surgery today. She is mostly on oral controlled medication at this point. Anticipated discharge will be today. Review of Systems All systems reviewed & are unremarkable except as noted in HPI & below. Physical Exam . Dressing is clean, dry, and intact. She is neurovascular intact. She can flex to the elbow but any movement through the shoulder still brings on some discomfort. +2 radial pulse. Less than 2-second capillary refill. Normal sensation. Neurovascular intact. Results & Data Results & Data Laboratory Results . Diagnostic Findings . PG Care Time/CCT Total # of Minutes Spent Total Time Spent with Patient: Total time spent is greater than 50% in coordination of care (as documented) at patient's floor/unit and/or counseling patient: Coding Level of Care Code 93808 Post Operative Follow-Up Diagnoses Hematoma of shoulder S40.019A Effusion of shoulder joint, right M25.411 History of arthroscopy of right shoulder Z98.890
--- NOTE | 2023-10-26 12:14 | Discharge Summary ---
Date of Service October 26, 2023 Admission HPI (Per Admitting) 73-year-old female seen in clinic yesterday for progressive right shoulder pain nearly 4 months out from revision rotator cuff repair. She has been treated in [place] with acupuncture with some good relief of abnormally high level of pain. When she returned she had increasing pain and now it is intolerable. She presented to the ED a few days ago. She presented to clinic for follow-up. My concern was for hematoma or infectious effusion so an MRI was obtained. The MRI results came back today. Admission Exam (Per Admitting) Right shoulder: The wounds are healed. There is no overlying severe skin edema or effusion palpable. She had exquisite tenderness and was very guarded with motion. Neurovascular intact. Principal Diagnosis Same as "Discharge Diagnosis" noted below under Discharge Instructions. Discharge Exam . Dressing is clean, dry, and intact. She is neurovascular intact. She can flex to the elbow but any movement through the shoulder still brings on some discomfort. +2 radial pulse. Less than 2-second capillary refill. Normal sensation. Neurovascular intact. Discharge Data Procedures Performed Operation Date: 10/23/23 08:30 Actual Procedures p Right Shoulder Arthroscopy, Extensive Irrigation and Debridement(Right) - Michael Rosado MD Ordered Studies 10/23/23 05:00 US - OR guided needle placemen Routine Hospital Course (1) History of arthroscopy of right shoulder: (2) Effusion of shoulder joint, right: (3) Hematoma of shoulder: Plan On October 23, 2023 Ester arrived at [facility] and underwent a right shoulder arthroscopy with extensive irrigation and debridement with Dr. Rosado with no complications. She had a general anesthetic. Postoperatively, she was transferred to the PACU for immediate postoperative care and then transferred to the general orthopedic floor in stable condition. Her hospital course was pretty much uneventful other than for pain control. On postoperative day #1, she noted that her pain was not well-controlled with oral analgesics regimen and still relied on IV analgesics. She did participate well with physical therapy and Occupational Therapy working on range of motion exercises. Postoperative day #2 was only significant for still needing IV analgesics but started to transition slightly more to oral analgesic coverage. On postoperative day #3, her pain was much better controlled with oral analgesics. She participated well with physical therapy and Occupational Therapy working on range of motion. She was then discharged home in stable condition. She will follow-up with Dr. Rosado in 7 to 10 days for postoperative care. PG Care Time/CCT Total # of Minutes Spent Total Time Spent with Patient: Total time spent is greater than 50% in coordination of care (as documented) at patient's floor/unit and/or counseling patient: Discharge Plan Discharge Items Patient Disposition: Home - Self-Care Reason For Visit: SHOULDER POSTOP HEMATOMA Discharge Diagnosis: as above Activity: Per Instructions section Non-emergency contact: Surgeon Call non-emergency contact if: your pain is not controlled, you have a fever and your temperature is above 101 Follow-up/Referrals: Svetlana Jacobs DO [Primary Care Provider] - Diet: Regular Addtl Attending Provider Instructions: Michael Rosado M.D. [facility] Orthopedic Surgery [address], [place] [address] SHOULDER PROCEDURES WOUND CARE: Dressings are removed at 3 days post op. Yours should be removed prior to your discharge. You may was the area with soap and water. Leave the steri strips in place. They will fall off on their own. Do not submerge the wounds. Pat to dry when wet. ACTIVITY: Remain in the sling provided. Range of motion as tolerated and weight bearing as tolerated. You may work with your physical therapost from before on this. Please perform ROM (range of motion) exercises at least three times daily: 1. Wrist flexion and extension 2. Finger pump 3. Elbow flexion/extension and forearm rotation 4. Supported Codmans Exercises come out of sling, dangle your affected arm. Use your nonoperative (good) arm to support your operative (getting better!) arm at the elbow. Gently rotate/swing your operative arm in a pendulum motion for 1-2 minutes. Rest. Repeat three times. 5. Shoulder ROM as tolerated. PAIN CONTROL: Use frequent ice to reduce amount of pain medications. Use for 30 minutes per hour. Do not leave in place longer than 30 minutes, especially when your block is in effect, to prevent frostbite or thermal injury. MEDICATIONS: 1. [id number] 1-2 tablet(s) orally every 4 hours for pain as needed. Use with Tylenol. Begin tapering this as soon as possible: reduce from 2 to 1 pills per dose, then spread out the doses over greater time intervals, then try to use only for therapy or for comfort while sleeping. Continue to use regular Tylenol until pain subsides. 2. Tylenol (325mg): 3 tablets every 8 hours orally. Regular dosing of Tylenol is an important part of your baseline pain control. Do not taper Tylenol until you have successfully tapered off of regular OxyIR. Do not take more than 3000mg of Tylenol per day. 3. Zofran 1 tablet orally every 6 hours as needed for nausea related to anesthesia, pain, and narcotic medications OVER THE COUNTER: Narcotics will cause constipation. Colace and or Miralax can help while you are taking oxycodone or other narcotics. 4. Colace (100mg): take 1-2 tabs twice daily to avoid constipation from OxyIR or other narcotics. 5. Miralax 1 tablespoon in a glass of water 2 times daily until normal mary wel movements FOLLOWUP: 1. Ortho Clinic with Dr. Rosado: You should be seen in 10-14 days. Please call immediately to schedule if you do not have an appointment. 2. PHYSICAL THERAPY: It is OK to be seen by your therapist before the orthopedic postop appointment, if a specific consult has been placed. Pending Studies at Discharge: No Stand-Alone Forms: My [facility], Smoking Cessation Medications and DC Order Prescriptions: New hydromorphone [Dilaudid] 2 mg Tablet 2 - 4 mg PO Q4H PRN (Reason: pain) Qty: 18 0RF ondansetron 4 mg tablet,disintegrating 4 mg PO Q6H PRN (Reason: nausea and vomiting) Qty: 10 0RF Continued Trulance 3 mg tablet 3 mg PO QAM Qty: 90 2RF prednisone 10 mg tablets,dose pack 10 mg PO UD Qty: 30 0RF Rx Instructions: 12 day prednisone taper 10mg, 30tabs For the first three days, take 4 tablets every morning with breakfast For the next three days, take 3 tablets every morning with breakfast For the next three days, take 2 tablets every morning with breakfast For the last three days, take 1 tablets every morning with breakfast nitroglycerin [Nitrostat] 0.3 mg Tablet, Sublingual 0.3 mg sublingual UD PRN (Reason: Chest Pain) Rx Instructions: NEEDED FOR CHEST PAIN : ONE TABLET UNDER THE TONGUE EVERY 5 MINUTES UP TO 3 DOSES. olopatadine 0.2 % Drops 1 drp ophthalmic (eye) QAM epinephrine 0.3 mg/0.3 mL Syringe 0.3 mg IM Q3H PRN (Reason: Allergic Reaction) metformin 500 mg Tablet 500 mg PO BIDM furosemide 20 mg tablet 40 mg PO QAM Rx Instructions: may take additional dose as directed for edema. atorvastatin [Lipitor] 40 mg Tablet 40 mg PO QAM levothyroxine 75 mcg Tablet 75 mcg PO QAM Rx Instructions: take before breakfast or other meds buspirone 10 mg tablet 10 mg PO BID polyethylene glycol 3350 17 gram Powder In Packet 17 g PO DAILY PRN (Reason: Constipation) promethazine 25 mg Tablet 25 mg PO Q6H PRN (Reason: Nausea) tizanidine 4 mg tablet 4 mg PO BID PRN (Reason: Muscle Spasm) trazodone 100 mg Tablet 300 mg PO HS loperamide 2 mg capsule 2 mg PO QID PRN (Reason: Diarrhea) Eliquis 5 mg tablet 5 mg PO BID Hold Instructions: Resume on 04/14/23. Hold for the GI procedure tomorrow. resume when cleared by GI Patient Comments: LAST DOSE YESTERDAY MORNING , STOP FOR SURGERY PER DIRECTOR SECURITY RISK MANAGEMENT /HAVE INSTRUCTIONS ON WHEN TO RE START. pantoprazole 40 mg tablet,delayed release (DR/EC) 40 mg PO QAM acetaminophen [Tylenol Extra Strength] 500 mg Tablet 1,000 mg PO Q8 PRN (Reason: pain) Qty: 100 0RF metoprolol succinate 100 mg Tablet Extended Release 24 Hr 100 mg PO QAM spironolactone 25 mg Tablet 25 mg PO QAM Ozempic 2 mg/dose (8 mg/3 mL) Pen Injector 2 mg SUBCUT WK aspirin 81 mg Tablet,Delayed Release (Dr/Ec) 81 mg PO QAM Patient Comments: LAST DOSE YESTERDAY MORNING, STOP FOR SURGERY PER DIRECTOR SECURITY RISK MANAGEMENT /HAVE INSTRUCTIONS ON WHEN TO RE START Discontinued oxycodone 5 mg tablet 5 - 10 mg PO Q4H PRN (Reason: pain, severe) Qty: 30 0RF Discharge Orders: Discharge Order (Routine); Ordered 10/26/23 Ordered By: Andrea Elizabeth Admission Data Admit Date/Time: 10/23/23 10:24 Attending Provider: Alonzo,Michael W. Admit Provider: Michael Rosado Primary Care Provider: Svetlana Jacobs
[2023-10-26] MEDS ORDERED: HEPARIN 100 UNIT/ML 5ML FLUSH ONE (13:01)
[2023-10-26] MEDS ORDERED: LANTUS PER UNIT CHARGE SC SCH (21:00)
== END 2023-10-26 14:33 | disposition home or self-care (01) | DRG 508 ==
LOC: ASU 06:53 → 3N 10:24

== ENCOUNTER 2024-02-14 11:51 | Inpatient (IN) ==
--- OUTSIDE RECORDS SUMMARY | 2024-02-14 11:57 | External Medical Summary | Summary of Care ---
Author Name Unknown Organization [facility] Address [address] [place] [address] Phone [phone] Care Team Providers Care Administrative Aide Name Role Phone Svetlana Jacobs DO Primary Care Provider Reason for Visit * Reason Onset Date Comments Appointment 02/04/2024 labs Test Results Lab 02/04/202402/03 Test Results 02/04/202402/04; 02/10 Encounter Details Date Type Department Care Team (Late st Contact Info) Description 02/04/2024 Telephone Family Practice [facility] [place] [address] [place] [address] Svetlana Jacobs DO [address] [place] [address] Appointment (labs); Test Results Lab (02/03... 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 Other reaction(s): SEVERE DERMATITIS Other reaction(s): CD - Contact dermatitis Nsaids High 07/25/2015 Other reaction(s): HX OF BLEEDING ULCERS-TO AVOID Oxycodone Neuro complications (Please comment) High 02/19/2021 Opioid abuse Other reaction(s): neuro complications opioid abuse-recent overdose 01/2021 documented as of this encounter (statuses as of 02/11/2024) Medications Medication Sig Dispensed Refills Start Date End Date Status Triamcinolone Acetonide 0.1 % External Cream (Aristocort)Indicat ions:Lichenoid dermatitis,Rash and nonspecific skin eruption Apply topically to affected area 2 times a day . To affected area. 60 g 5 2 Active Ketoconazole 2 % External Cream Apply topically to affected area 2 times a day . Apply to under breasts 60 g 5 2 Active Aspirin EC 81 MG Oral Tablet Delayed Release Take 1 Tablet by mouth in the morning. 0 3 Active tiZANidine HCl 4 MG Oral Tablet (Zanaflex)Indicatio ns:Post-polio syndrome,Postlamine ctomy syndrome,Chronic low back pain,Postlaminectom y syndrome, lumbar region,Postlaminect torey syndrome, thoracic region TAKE 1 TABLET BY MOUTH TWICE A DAY NEEDED FOR MUSCLE SPASMS, DO NOT TAKE WITH BACLOFEN 180 Tablet 1 3 Active Centrum Silver 50+Women Oral Tablet Take 2 Tablets by mouth in the morning. 0 3 Active Olopatadine HCl 0.2 % Ophthalmic SolutionIndications :Allergic conjunctivitis of both eyes INSTILL 1 DROP INTO BOTH EYES DAILY. 7.5 mL 1 3 Active Additional Information Patient not taking.Reported on 12/21/2023 Advanced Probiotic Oral Capsule Take 2 Capsules by mouth in the morning. 0 3 Active Spironolactone 25 MG Oral Tablet (Aldactone)Indicati ons:HTN, goal below 130/80 TAKE 1 TABLET BY MOUTH EVERY DAY IN THE MORNING 90 Tablet 3 3 Active Roller WalkerIndications:H istory of TIA (transient ischemic attack),Chronic diastolic congestive heart failure (HCC),Postlaminecto my syndrome, thoracic region,Postlaminect torey syndrome, lumbar region,Morbid obesity, unspecified obesity type (HCC) Rolling walker with seat and brakes. Would like walker with bigger wheels Would like cornflower blue or green in color 1 Each 0 3 Active Additional Information Patient not taking.Reported on 01/19/2024 Trulance 3 MG Oral Tablet (Plecanatide) take 1 tablet (3mg) by mouth daily in the morning 90 Tablet 2 3 Active busPIRone HCl 10 MG Oral Tablet (Buspar) take 1 tablet by mouth twice daily 180 Tablet 0 3 Active Myrbetriq 25 MG Oral Tablet Extended Release 24 Hour (Mirabegron ER) Take 1 Tablet by mouth in the morning. 30 Tablet 6 3 Active NATURAL SUPPLEMENT Take 2 Capsules by mouth in the morning. Help with BM's/constipation- Stephanie. 0 Active Promethazine HCl 25 MG Oral Tablet (Phenergan)Indicati ons:Nausea and vomiting, unspecified vomiting type Take 1 Tablet by mouth every 6 hours as needed for Nausea. 40 Tablet 1 3 Active Acetaminophen 500 MG Oral Packet Take 1,000 mg by mouth every 8 hours as needed for Pain. 0 Active Loperamide HCl 2 MG Oral Capsule (Imodium) Take 1 Capsule by mouth 4 times a day as needed for Diarrhea. 0 Active oxyCODONE HCl 5 MG Oral Tablet (Oxy IR) TAKE ONE OR TWO TABLETS orally EVERY 4 HOURS NEEDED Needed FOR pain, SEVERE 0 4 Active traZODone HCl 150 MG Oral Tablet (Desyrel) take 2 tablets by mouth daily at bedtime 180 Tablet 0 4 Active Ondansetron HCl 4 MG Oral Tablet (Zofran)Indications :Nausea and vomiting, unspecified vomiting type Take 1 Tablet by mouth 3 times a day as needed for Nausea or Vomiting. 30 Tablet 0 4 Active Levothyroxine Sodium 75 MCG Oral Tablet (Levoxyl)Indication s:Hypothyroidism, unspecified type TAKE 1 TABLET BY MOUTH DAILY 30 MINUTES BEFORE BREAKFAST OR MEDS 90 Tablet 3 4 Active Ozempic (2 MG/DOSE) 8 MG/3ML Subcutaneous Solution Pen-injector (Semaglutide (2 MG/DOSE)) Inject 2 mg under the skin once weekly 9 mL 1 4 Active EpiPen 2-Lee 0.3 MG/0.3ML Injection Solution Auto-injector INJECT INTO OUTER THIGH FOLLOWING DIRECTIONS ON PACKAGE AND TO GO EMERGENCY ROOM 2 Each 1 4 Active Nitroglycerin 0.3 MG Sublingual Tablet Sublingual (Nitrostat)Indicati ons:Coronary artery disease involving little shell tribe coronary artery of little shell tribe heart without angina pectoris,Dyslipidem ia, goal LDL below 100,Essential hypertension with goal blood pressure less than 140/90 Place 1 Tablet under the tongue every 5 minutes as needed for Pain, Chest. 25 Tablet 11 4 Active Pantoprazole Sodium 40 MG Oral Tablet Delayed Release (Protonix) Take 1 Tablet by mouth in the morning. 100 Tablet 1 4 Active Additional Information Patient taking differently:40 mg Oral Daily(AM),Pt reports she is taking twice a day., Reported on 12/30/2023 Apixaban 5 MG Oral Tablet (Eliquis)Indication s:History of DVT (deep vein thrombosis) TAKE ONE TABLET BY MOUTH EVERY MORNING AND TAKE ONE TABLET BY MOUTH AT BEDTIME 200 Tablet 0 4 12/30/19 25 Active Atorvastatin Calcium 40 MG Oral Tablet (Lipitor) TAKE 1 TABLET BY MOUTH EVERY DAY 100 Tablet 2 4 Active traMADol HCl 50 MG Oral Tablet (Ultram) 1 Tablet every 8 hours as needed. 0 4 Active Furosemide 20 MG Oral Tablet (Lasix)Indications: Chronic diastolic congestive heart failure (HCC) TAKE TWO TABLETS BY MOUTH EVERY MORNING 200 Tablet 1 4 Active Ozempic (2 MG/DOSE) 8 MG/3ML Subcutaneous Solution Pen-injector (Semaglutide (2 MG/DOSE)) inject 2 mg subcutaneously weekly 3 mL 2 4 Active Metoprolol Succinate ER 100 MG Oral Tablet Extended Release 24 Hour (toPROL XL) TAKE 1 TABLET BY MOUTH EVERY DAY IN THE MORNING 90 Tablet 1 3 02/09/20 24 Discontinu ed(Refill) documented as of this encounter (statuses as of 02/11/2024) Active Problems Problem Noted Date Diagnosed Date Hyperlipidemia 12/15/2023 Depression, unspecified 10/28/2023 Depression, unspecified 10/28/2023 Depression, unspecified 10/28/2023 Type 2 diabetes mellitus wit h diabetic polyneuropathy, without long-term current use of insulin 03/23/2023 Bipolar II disorder 12/04/2022 Age-related osteoporosis wit hout current pathological fracture 10/29/2022 Diabetes mellitus with stage 3 chronic kidney di sease 12/24/2020 Overview: Per CKD protocol Type 2 diabetes mellitus wit h hemoglobin A1c goal of less than 7.0% 07/04/2020 Chronic diastolic congestive heart failure 04/09 Migraine variant 04/08/2020 History of DVT (deep vein thrombosis) 02/08/2020 Coronary artery disease invo lving little shell tribe coronary artery of little shell tribe heart without angina pectoris 02/08/2020 Failed back surgical syndrome 02/08/2020 Gastroesophageal reflux disease with esophagitis 02/07/2020 GENE (generalized anxiety disorder) 02/07/2020 Chronic pain syndrome 07/28/2017 History of non-ST elevation myocardial infarctio n (NSTEMI) 04/02/2017 Body mass index 35.0-35.9, adult 03/29/2016 Overview: bmi= 35.74 03/29/16 Hypothyroidism 01/24/2016 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 Essential hypertension with goal blood pressure less than 140/90 10/30/2005 Recurrent major depressive disorder, in full rem ission 10/30/2005 Cervical spondylosis 05/08/2004 Idiopathic scoliosis 05/01/2004 documented as of this encounter (statuses as of 02/11/2024) Resolved Problems Problem Noted Date Diagnosed Date Resolved Date Sacroiliitis 10/22/2021 10/22/2021 Morbid obesity, unspecified obesity type 10/22/2021 10/28/2023 Atrial fibrillation 10/22/2021 10/22/19 22 Opioid abuse 02/19/2021 10/28/2023 Unspecified mood (affective) disorder 08/21/2019 02/07/2020 Prediabetes 02/28/2019 08/02/2020 Overview: Per Prediabetes protocol #1 Encounter for examination fo r normal comparison and control in clinical research program 02/23/2018 05/21/2020 Overview: DO NOT DELETE [facility] DETECT Study: Project # [id number], [place] Machine Operator: Yoel Sung, PhD. SUMMARY: Goal: Establish test characteristics (sensitivity, specificity, PPV, NPV) of a circulating tumor DNA (ctDNA)-based test for cancer. Hypothesis: Circulating tumor DNA (ctDNA) and elevated protein biomarkers (together, the marker panel) can be detected in asymptomatic individuals with early cancer. Specific Aim 1: Determine the prevalence of a positive marker panel test in a prospective clinical cohort of 10,000 asymptomatic women ages 65 to 75 years. Specific Aim 2: Determine the sensitivity, specificity, positive predictive value (PPV) and negative predictive value (NPV) of a marker panel test to identify histologically proven cancers that develop within 5-years of the marker panel evaluation. CONTACTS: During normal business hours, contact study staff at ; after hours [place] Machine Operator via the [facility] hospital videotape operator . Please contact study team before resolving/deleting from patients problem list. Study phone number: [phone]. Diagnosis changed due to Research Module. Go to Snapshot for study details. Encounter for examination fo r normal comparison and control in clinical research program 02/23/2018 06/19/2022 Overview: DO NOT DELETE - [facility] Study: Project # [id number], [place] Machine Operator: Ranjeet Villa, MS, MPH. SUMMARY: Goal: Establish test characteristics (sensitivity, specificity, PPV, NPV) of a circulating tumor DNA (ctDNA)-based test for cancer. - Hypothesis: Circulating tumor DNA (ctDNA) and elevated protein biomarkers (together, the marker panel) can be detected in asymptomatic individuals with early cancer. - Specific Aim 1: Determine the prevalence of a positive marker panel test in a prospective clinical cohort of 10,000 asymptomatic women ages 65 to 75 years. - Specific Aim 2: Determine the sensitivity, specificity, positive predictive value (PPV) and negative predictive value (NPV) of a marker panel test to identify histologically proven cancers that develop within 5-years of the marker panel evaluation. - CONTACTS: During normal business hours, contact study staff at ; after hours [place] Machine Operator via the [facility] videotape operator . - Please contact study team before resolving/deleting from patients problem list. Study phone number: [phone]. Diagnosis changed due to Research Module. Go to Snapshot for study details. Preop examination 03/29/2016 09/30/2016 Abnormal electrocardiogram 03/29/201611/07/2018 MEDICATION USE AGREEMENT 05/03/2015 Overview: Signed 05/03/2015 Charanjit Spann MD [facility] Encounter for long-term (cur rent) use of medications 12/31/2011 02/07/2020 Overview: ICD-10 update of inactive term Postlaminectomy syndrome 12/16/201107/2017 Lumbago 12/16/2011 07/28/2017 Mixed dyslipidemia 10/30/2005 9 Overview: Per Lipid Taxonomy. documented as of this encounter (statuses as of 02/11/2024) Immunizations Name Administration Dates Next Due COVID-19 mRNA, LNP-s, No Pre serve, 2-Dose Series (Reachpod - Inovaktif Bilisim) 08/29/2021,03/06/2021,02/13/2021 COVID-19, LNP-s, No Preserve , Ad-sucrose, Ages 12+ (Pfizer) 02/07/2022 COVID-19, MRNA-LNP, 23-24, P F, 30 MCG/0.3 mL, 12 YRS AND ABOVE, IM (FLIP4NEW-Comirnat) 12/15/2023 Covid-19, Mrna, Lnp-s, Pf, B ivalent, 30 Mcg, IM, 12 yrs and above (Pfizer) 08/01/2022 Pneumococcal Conjugate Vacc, 13 Valent (Prevnar) 06/06/2016 Pneumococcal Polysaccharide PPV23 (Pneumovax) 01/26/2013 RSV Vac., Bivalent, Perfusio n F, Pf,0.5 Ml (Abrysvo) 12/15/2023 Season Influenza, Quad, PF, Adjuvanted, 65+ Yrs, IM (FLUAD) 06/25/2020 Seasonal Influenza, Quad, Nasal (Flumist) 2016 Seasonal Influenza, Quadriva lent Hd (Fluzone Hd) 07/02/2023,07/17/2022,07/09/2021 Seasonal Influenza, Quadriva lent, No Preserve, IM 08/04/2016 Seasonal Influenza, Split, I IV3, With Preserve, Inj 07/03/2014 Seasonal Influenza, Trivalen t, Adjuvanted, 65+ yrs 06/19/2020,06/23/2019 Seasonal Influenza, Trivalen t, High Dose, No Preserve, IM 06/03/2018,08/30/2015 TDAP (age 10 and older)(Boostrix) 01/24/2016 Varicella Zoster Vaccine (Adult) 02/02/2013 Zoster Vaccine Recombinant (Shingrix) 06/23/2019 ,03/18/2019,02/23/2018 documented as of this encounter Social History Tobacco Use Types Packs/Day Years Used Date Smoking Tobacco: Never Passive Smoke Exposure: Never Smokeless Tobacco: Never Alcohol Use Standard Drinks/Week Comments No 0 (1 standard drink = 0.6 oz pur e alcohol) PHQ-2 Answer Date Recorded PHQ Adult Total Score 0 10/28/2023 Hunger Vital Sign Answer Date Recorded Within the past 12 months, y ou worried that your food would run out before you got the money to buy more. Never true 10/28/19 24 Within the past 12 months, t he food you bought just didn't last and you didn't have money to get more. Never true 10/28/2023 Sex and Gender Information Value Date Recorded Sex Assigned at Female 06/14/2020 12:32 PM EDT Gender Identity Female 06/14/2020 12:32 PM EDT Sexual Orientation Straight 06/14/2020 12 :32 PM EDT Job Start Date Occupation Industry Not on file Not on file Not on file documented as of this encounter Functional Status Functional Status Response Date of Assess ment Are you deaf or do you have serious difficulty h earing? No 03/12/2021 Are you blind or do you have serious difficulty seeing, even when wearing glasses? No 03/12/2021 Do you have serious difficul ty walking or climbing stairs? (5 years old or older) No 03/12/2021 Do you have difficulty dress ing or bathing? (5 years old or older) No 03/12/2021 Because of a physical, menta l, or emotional condition, do you have difficulty doing errands alone such as visiting a doctor s office or shopping? (15 years old or older) No 03/12/20 Cognitive Status Response Date of Assessm ent Because of a physical, menta l, or emotional condition, do you have serious difficulty concentrating, remembering, or making decisions? (5 years old or older) No 03/12/2021 documented as of this encounter Miscellaneous Notes * Telephone Encounter - Rose Miller LPN - 02/11/2024 2:02 PM EDT Call placed to patient - no answer. Message left to return call to [phone]. * Telephone Encounter - Svetlana Jacobs DO - 02/11/2024 1:03 PM EDT Potassium reviewed and was ok. They did not draw an A1C. I know she has difficulty leaving the home. I can give her an order for an A1C at her visit to complete with next port flush. * Telephone Encounter - Rose Miller LPN - 02/11/2024 12:21 PM EDT Call placed to patient and relayed information from Dr. Jacobs. Pt acknowledged understanding. Will continue to take Multivitamin containing potassium Pt states she just had lab work completed 02/09/24 and those results are in her EHR. Please advise if you would like repeat potassium. Pt has OV scheduled on 02/17 - please advise if any lab work is needed prior to that appt. * Telephone Encounter - Svetlana Jacobs DO - 02/10/2024 2:53 PM EDT I would continue on potassium as she is taking it in that vitamin. When does she go for labs/port flush again so we can recheck this? * Telephone Encounter - Rose Miller LPN - 02/05/2024 9:20 AM EDT Call placed to patient and relayed information from Dr. Jacobs. Pt states her Multivitamin contains Potassium 80 mg. Confirmed she does take it daily. States she used to take Potassium supplements in the past but her Foot And Ankle Surgeon stopped them approx 1 year ago due to levels being too high. * Telephone Encounter - Svetlana Jacobs DO - 02/04/2024 5:09 PM EDT Pt's lab studies looked ok other than a slightly low potassium. Is there any potassium in her multivitamin? * Telephone Encounter - Rose Miller LPN - 02/04/2024 4:55 PM EDT Call placed to patient - she is asking for results of lab work drawn at [facility] on . Also asking about results of A1c drawn that date. * Telephone Encounter - Radha Rodriguez OSA - 02/04/2024 4:34 PM EDT Pt calling to get results of recent labs that were done Please call her at [phone] documented in this encounter Plan of Treatment Upcoming Encounters Date Type Department Care Team (Late st Contact Info) Description 02/18/2024 8:40 AM EDT Office Visit Family Practice [facility] [place] [address] [place] [id number] Svetlana Jacobs DO [address] [facility], [place] [address] 06/22/2024 11:00 AM EDT Office Visit Cardiology, [facility] [address] [place] [address] Dann Hancock, PA-C [address] [facility] [place] [address] 07/19/2024 1:45 PM EDT Office Visit U[facility], [facility] [place] [address] Hayden Johnson MD [address] [place] [address] [place] [address] 09/08/2024 10:45 AM EST Office Visit Dermatology [facility] [address] [facility] [place] [address] Abdelrahman Silva MD [address] [facility] [place] [address] 09/29/2024 2:40 PM EST Office Visit Nephrology, [facility] [address] [facility] [place] [address] Blake Becker MD [address] [facility] [place] [address] 09/30/2024 11:00 AM EST Nurse Only Ancillary [address] [facility] [address] [place] [address] College, Nurse Annual Wellness Visit [address] [facility] [address] [place] [address] Health Maintenance Due Date Last Done Comments HOME BP CUFF VALIDATION YEARLY 07/01/2020 07/01/2019 *BISPHONATE OR OTHER ACCEPTABLE MEDICATION NEEDED FOR OSTEOPOROSIS (REFER TO SMARTSET #1146) 10/31/2022 Diabetic Eye Exam 01/21/2024 01/20/2023, , 12/03/2022, Additional history exists HbA1c 04/16/2024 10/16/2023, 09/0 05/2023, 11/18/2022, Additional history exists Diabetic Foot Exam 05/26/2024 05/26/2023, 1 , 07/09/2021 GFR 08/10/2024 02/09/2024, 12/18, 11/10/2023, Additional history exists Albumin/Creatinine Ratio 10/16/2024 023, 12/03/2022, 01/15/2022, Additional history exists TSH 10/16/2024 10/16/2023, 12/2022, 06/20/2022, Additional history exists CKD HGB USE SMARTSET 63529 02/08/202502/08, 02/09/2024, 11/10/2023, Additional history exists CKD PHOS USE SMARTSET 30919 02/08/202501/18, 10/16/2023, 01/28/2023, Additional history exists DXA Scan 01/10/2026 01/11/2024, 07/19, 05/09/2015 DTaP,Tdap,and Td Vaccines (2 - Td or Tdap) 01/23/2026 01/24/2016 Pneumococcal Vaccine: 65+ Years Completed 06/06/2016, 01/26/2013 Zoster Vaccines Completed 06/23/2019, 02/18, 02/23/2018, Additional history exists Colonoscopy Discontinued 08/19/2019, 10/2018, 07/20/2018, Additional history exists Colorectal Cancer Screening Discontinued VITAMIN D LEVEL ONCE IN A LIFETIME-USE SMARTSET# 97162 Completed 11/13/2022, 05/07/2006 Influenza Vaccine (FLU shot) Completed 07/02/2023, 07/17/2022, 07/09/2021, Additional history exists COVID-19 Vaccine Completed 12/15/2023, , 02/07/2022, Additional history exists Cologuard Discontinued Fecal Occult Blood Test Discontinued GARDASIL-HPV IMMUNIZATION SERIES Aged Out No longer eligible based on patient's age to complete this topic Hepatitis B Aged Out No longer eligi ble based on patient's age to complete this topic MENINGOCOCCAL (MENACTRA/MENVEO) Aged Out No longer eligible based on patient's age to complete this topic Sigmoidoscopy Discontinued documented as of this encounter Medical Devices Implanted Type Area Lodging Facilities Manager Device Identifier Shelf Expiration Date Model / Serial / Lot Dbx 5cc [id number] - [id number] - [id number] Implanted:Qty : 1 on 01/08/2021 by Kuldeep Fisher DO at OR [facility] Tissue - Human Left: Spine Lumbar [employer] [id number] 06/18/2022 [id number] / [id number] / LOT NA Description:[id number] Implant Ifuse 3d 7x55 Mm - [id number] Implanted:Qty : 1 on 01/08/2021 by Kuldeep Fisher DO at OR [facility] Left: Spine Lumbar [employer] 09/05/2024 7055M-90 / / [id number] Implant Ifuse 3d 7x55 Mm - [id number] Implanted:Qty : 1 on 01/08/2021 by Kuldeep Fisher DO OR [facility] Left: Spine Lumbar [employer] 03/29/2024 7055M-90 / / [id number] Ifuse Implant System 7.0 X 50mm Implant Implanted:Qty : 1 on 01/08/2021 by Kuldeep Fisher DO OR [facility] Left: Spine Lumbar 05/11/2025 7050M-90 / / [id number] Implant Ifuse 3d 7x50 Mm - [id number] Implanted:Qty : 2 on 03/12/2021 by Kuldeep Fisher DO OR [facility] Right: Pelvis [employer] 09/18/2025 7050M-90 / / [id number] Dbx 2.5cc [id number] - [id number] - [id number] Implanted:Qty : 1 on 03/12/2021 by Kuldeep Fisher DO OR [facility] Right: Iliac [employer] [id number] 07/20/2022 [id number] / [id number] / LOT NA Implant Ifuse 3d 7x45 Mm - [id number] Implanted:Qty : 1 on 03/12/2021 by Kuldeep Fisher DO OR [facility] Right: Pelvis [employer] 09/18/2025 7045M-90 / / [id number] documented as of this encounter Advance Directives Latest Code Status on File Code Status Date Activated Date Inactivated Comments Full Code 03/12/2021 2:35 PM 03/14/2021 6:46 PM This order reflects the patients wishes and were consensually agreed upon. Question Answer Comments Discussion of Advance Directives occurred with: Not Discussed Code Status History Code Status Date Activated Date Inactivated Comments Full Code 01/09/2021 9:12 PM 01/11/2021 9:11 AM Question Answer Comments Discussion of Advance Direct jordan occurred with: Not Discussed Full Code 08/19/2016 2:33 PM 08/21/2016 7:54 PM Question Answer Comments Discussion of Advance Direct jordan occurred with: Not Discussed Care Teams Administrative Aide Relationship Specialty Start Date End Date Svetlana Jacobs DO [address] [place] [address] PCP - General Family Medicine 10/01/23 documented as of this encounter
--- OUTSIDE RECORDS SUMMARY | 2024-02-14 11:57 | External Medical Summary | Summary of Care ---
Author Name Unknown Organization [facility] Address [address] [place] [address] Phone [phone] Care Team Providers Care Small Kick Press Operator Name Role Phone Svetlana Jacobs DO Primary Care Provider Reason for Visit * Reason Onset Date Comments Appointment 02/04/2024 labs Test Results Lab 02/04/202402/03 Test Results 02/04/202402/04; 02/10 Encounter Details Date Type Department Care Team (Late st Contact Info) Description 02/04/2024 Telephone Family Practice [facility] [place] [address] [place] [address] Svetlana Jacobs DO [address] [place] [address] Appointment (labs); Test Results Lab (02/03... Allergies Active Allergy Reactions Criticality Noted Date Comments Adhesive Tape Other (Please comment) Low 07/19/2019 Skin irritation Ibuprofen Bleeding High 09/03/2016 (NSAIDS) Other reaction(s): Bleeding Latex Rash High 01/25/2019 Other reaction(s): Rash Nickel High 12/16/2011 Rash/blisters if intermediate manager exposure Other reaction(s): SEVERE DERMATITIS Other reaction(s): [...] Tablet Sublingual (Nitrostat)Indicati ons:Coronary artery disease involving [place] coronary artery of [place] heart without angina pectoris,Dyslipidem ia, goal LDL [...] thrombosis) 02/08/2020 Coronary artery disease invo lving [place] coronary artery of [place] heart without angina pectoris 02/08/2020 Failed back [...] program 02/23/2018 05/21/2020 Overview: DO NOT DELETE [facility] [place] DETECT Study: Project # [id number], Installment Dealer: Yoel Sung, PhD. SUMMARY: Goal: Establish test [...] contact study staff at ; after hours Installment Dealer via the [facility] hospital powerhouse operator . Please contact study team before resolving/deleting from patients problem list. Study phone number: [phone]. Diagnosis changed due to Research Module. Go to Snapshot for study details. Encounter for examination fo r normal comparison and control in clinical research program 02/23/2018 06/19/2022 Overview: DO NOT DELETE - [facility] Study: Project # [id number], Installment Dealer: Ranjeet Villa, MS, MPH. SUMMARY: Goal: Establish [...] contact study staff at ; after hours Installment Dealer via the [facility] powerhouse operator . - Please contact study team before resolving/deleting from patients problem list. Study phone number: [phone]. Diagnosis changed due to Research Module. Go to Snapshot for study details. Preop examination 03/29/2016 09/30/2016 Abnormal electrocardiogram 03/29/201611/07/2018 MEDICATION USE AGREEMENT 05/03/2015 Overview: Signed 05/03/2015 Charanjit Spann MD [facility] Encounter for long-term (cur rent) use of medications 12/31/2011 02/07/2020 Overview: ICD-10 update of inactive term Postlaminectomy syndrome 12/16/201107/2017 Lumbago 12/16/2011 07/28/2017 Mixed dyslipidemia 10/30/2005 9 Overview: Per Lipid Taxonomy. documented as of this encounter (statuses as of 02/11/2024) Immunizations Name Administration Dates Next Due COVID-19 mRNA, LNP-s, No Pre serve, 2-Dose Series (Qranio) 08/29/2021,03/06/2021,02/13/2021 COVID-19, LNP-s, No Preserve , Ad-sucrose, Ages 12+ (Pfizer) 02/07/2022 COVID-19, MRNA-LNP, 23-24, P F, 30 MCG/0.3 mL, 12 YRS AND ABOVE, IM (imagoo-Comirnat) 12/15/2023 Covid-19, Mrna, Lnp-s, Pf, B ivalent, [...] Encounter - Rose Miller LPN - 02/11/2024 2:31 PM EDT Patient returned call. Relayed information from Dr. Jacobs. Pt acknowledged understanding. * Telephone Encounter - Rose Miller LPN - 02/11/2024 2:02 PM EDT Call placed to patient - no answer. Message left to return call to [phone]. * Telephone Encounter - Svetlana Jacobs DO [...] Potassium supplements in the past but her Block Out Machine Operator stopped them approx 1 year ago due to levels being too high. * Telephone Encounter - Svetlana Jacobs DO - 02/04/2024 5:09 PM EDT Pt's lab studies looked ok other than a slightly low potassium. Is there any potassium in her multivitamin? * Telephone Encounter - Rose Millre LPN - 02/04/2024 4:55 PM EDT Call placed to patient - she is asking for results of lab work drawn at [facility] on . Also asking about results of A1c drawn that date. * Telephone Encounter - Radha Rodriguez OSA - 02/04/2024 4:34 PM EDT Pt calling to get results of recent labs that were done Please call her at [phone] documented in this encounter Plan of Treatment Upcoming Encounters Date Type Department Care Team (Late st Contact Info) Description 02/18/2024 8:40 AM EDT Office Visit [facility] 65 [facility] [address] [place] [address] Svetlana Jacobs DO [address] [place] [address] 06/22/2024 11:00 AM EDT Office Visit Cardiology, [facility] [address] [place] [address] Dann Hancock PA-Leroy [address] [place] [address] 07/19/2024 1:45 PM EDT Office Visit Urology, [facility] [address] [place] [address] Hayden Johnson MD 27 [facility] [address] [place] [id number] 09/08/2024 10:45 AM EST Office Visit Dermatology [facility] [address] [facility] [place] [address] Abdelrahman Silva MD [address] [facility] [place] [address] 09/29/2024 2:40 PM EST Office Visit Nephrology, [facility] [address] [facility] [place] [address] Blake Becker MD [address] [facility] [place] [address] 09/30/2024 11:00 AM EST Nurse Only Ancillary 65 [facility] [address] [place], [place] [address] College, Nurse Annual Wellness Visit [address], [place] [address] Health Maintenance Due Date Last Done Comments HOME BP CUFF VALIDATION YEARLY 07/01/2020 07/01/2019 *BISPHONATE OR OTHER ACCEPTABLE MEDICATION NEEDED FOR OSTEOPOROSIS (REFER TO SMARTSET #1146) 10/31/2022 Diabetic Eye Exam 01/21/2024 01/20/2023, , 12/03/2022, Additional history exists HbA1c 04/16/2024 10/16/2023, 05/2023, 11/18/2022, Additional history exists Diabetic Foot Exam 05/26/2024 05/26/2023, 1 , 07/09/2021 GFR 08/10/2024 02/09/2024, 12/18, 11/10/2023, Additional history exists Albumin/Creatinine Ratio 10/16/2024 023, 12/03/2022, 01/15/2022, Additional history exists TSH 10/16/2024 10/16/2023, 12/2022, 06/20/2022, Additional history exists CKD HGB USE SMARTSET 41064 02/08/202502/08, 02/09/2024, 11/10/2023, Additional history exists CKD PHOS USE SMARTSET 22256 02/08/202501/18, 10/16/2023, 01/28/2023, Additional history exists DXA Scan 01/10/2026 01/11/2024, 07/19, 05/09/2015 DTaP,Tdap,and Td Vaccines (2 - Td or Tdap) 01/23/2026 01/24/2016 Pneumococcal Vaccine: 65+ Years Completed 06/06/2016, 01/26/2013 Zoster Vaccines Completed 06/23/2019, 02/18, 02/23/2018, Additional history exists Colonoscopy Discontinued 08/19/2019, 10/2018, 07/20/2018, Additional history exists Colorectal Cancer Screening Discontinued VITAMIN D LEVEL ONCE IN A LIFETIME-USE SMARTSET# 89184 Completed 11/13/2022, 05/07/2006 Influenza Vaccine (FLU shot) [...] this encounter Medical Devices Implanted Type Area Night Club Manager Device Identifier Shelf Expiration Date Model / Serial / Lot Dbx 5cc [id number] - [id number] - [id number] Implanted:Qty : 1 on 01/08/2021 by Kuldeep Fisher DO at OR [facility] Tissue - Human Left: Spine Lumbar MUSCULOSKELETAL TRANSPLANT FND [id number] 06/18/2022 [id number] / [id number] / LOT NA Description:[id number] Implant Ifuse 3d 7x55 Mm - [id number] Implanted:Qty : 1 on 01/08/2021 by Kuldeep Fisher DO at OR [facility] Left: Spine Lumbar [employer] 09/05/2024 7055M-90 / / [id number] Implant Ifuse 3d 7x55 Mm - [id number] Implanted:Qty : 1 on 01/08/2021 by Kuldeep Fisher DO at OR [facility] Left: Spine Lumbar [employer] 03/29/2024 7055M-90 / / [id number] Ifuse Implant System 7.0 X 50mm Implant Implanted:Qty : 1 on 01/08/2021 by Kuldeep Fisher DO at OR [facility] Left: Spine Lumbar 05/11/2025 7050M-90 / / [id number] Implant Ifuse 3d 7x50 Mm - [id number] Implanted:Qty : 2 on 03/12/2021 by Kuldeep Fisher DO at OR [facility] Right: Pelvis [employer] 09/18/2025 7050M-90 / / [id number] Dbx 2.5cc [id number] - [id number] - [id number] Implanted:Qty : 1 on 03/12/2021 by Kuldeep Fisher DO at OR [facility] Right: Iliac MUSCULOSKELETAL TRANSPLANT FND [id number] 07/20/2022 [id number] / [id number] / LOT NA Implant Ifuse 3d 7x45 Mm - [id number] Implanted:Qty : 1 on 03/12/2021 by Kuldeep Fisher DO at OR [facility] Right: Pelvis [employer] 09/18/2025 7045M-90 / / [id number] documented as of this encounter Advance Directives [...] jordan occurred with: Not Discussed Care Teams Small Kick Press Operator Relationship Specialty Start Date End Date Svetlana Jacobs DO [address] [place] [address] PCP - General Family Medicine 10/01/23 documented as of this encounter
--- OUTSIDE RECORDS SUMMARY | 2024-02-14 11:57 | External Medical Summary | Summary of Care ---
Author Name Unknown Organization [facility] Address [address] [place] [address] Phone [phone] Care Team Providers Care Payroll And Benefits Specialist Name Role Phone Svetlana Jacobs DO Primary Care Provider Reason for Visit * Reason Onset Date Comments Appointment 02/04/2024 labs Test Results Lab 02/04/202402/03 Test Results 02/04/202402/04; 02/10 Encounter Details Date Type Department Care Team (Late st Contact Info) Description 02/04/2024 Telephone Family Practice 65 [facility] [place] [address] [place] [address] Svetlana Jacobs DO [address] [place] [address] Appointment (labs); Test Results Lab (02/03... Allergies Active Allergy Reactions Criticality Noted Date Comments Adhesive Tape Other (Please comment) Low 07/19/2019 Skin irritation Ibuprofen Bleeding High 09/03/2016 (NSAIDS) Other reaction(s): Bleeding Latex Rash High 01/25/2019 Other reaction(s): Rash Nickel High 12/16/2011 Rash/blisters if lobsterman exposure Other reaction(s): SEVERE DERMATITIS Other reaction(s): [...] Tablet Sublingual (Nitrostat)Indicati ons:Coronary artery disease involving [place] coronary artery of [place] heart without angina pectoris,Dyslipidem ia, goal LDL [...] thrombosis) 02/08/2020 Coronary artery disease invo lving [place] coronary artery of [place] heart without angina pectoris 02/08/2020 Failed back [...] [facility] [place] DET[facility] Study: Project # [id number], Fruit Canner: Yoel Sung, PhD. SUMMARY: Goal: Establish test [...] contact study staff at ; after hours Fruit Canner via the [facility] hospital utility system operator . Please contact study team before resolving/deleting from patients problem list. Study phone number: [phone]. Diagnosis changed due to Research Module. Go to Snapshot for study details. Encounter for examination fo r normal comparison and control in clinical research program 02/23/2018 06/19/2022 Overview: DO NOT DELETE - [facility] Study: Project # [id number], Fruit Canner: Ranjeet Villa, MS, MPH. SUMMARY: Goal: Establish [...] contact study staff at ; after hours Fruit Canner via the [facility] utility system operator . - Please contact study team before resolving/deleting from patients problem list. Study phone number: [phone]. Diagnosis changed due to Research Module. Go to Snapshot for study details. Preop examination 03/29/2016 09/30/2016 Abnormal electrocardiogram 03/29/201611/07/2018 MEDICATION USE AGREEMENT 05/03/2015 Overview: Signed 05/03/2015 Charanjit Spann MD [facility] Encounter for long-term (cur rent) use of medications 12/31/2011 02/07/2020 Overview: ICD-10 update of inactive term Postlaminectomy syndrome 12/16/201107/2017 Lumbago 12/16/2011 07/28/2017 Mixed dyslipidemia 10/30/2005 9 Overview: Per Lipid Taxonomy. documented as of this encounter (statuses as of 02/11/2024) Immunizations Name Administration Dates Next Due COVID-19 mRNA, LNP-s, No Pre serve, 2-Dose Series (Proxama) 08/29/2021,03/06/2021,02/13/2021 COVID-19, LNP-s, No Preserve , Ad-sucrose, Ages 12+ (Pfizer) 02/07/2022 COVID-19, MRNA-LNP, 23-24, P F, 30 MCG/0.3 mL, 12 YRS AND ABOVE, IM ([employer]-Comirnat) 12/15/2023 Covid-19, Mrna, Lnp-s, Pf, B ivalent, [...] encounter Miscellaneous Notes * Telephone Encounter - Svetlana Jacobs DO [...] Potassium supplements in the past but her Trailer Technician stopped them approx 1 year ago due [...] for results of lab work drawn at [facility] on . Also asking about results of A1c drawn that date. * Telephone Encounter - Radha Rodriguez OSA - 02/04/2024 4:34 PM EDT Pt calling to get results of recent labs that were done Please call her at [phone] documented in this encounter Plan of Treatment Upcoming Encounters Date Type Department Care Team (Late st Contact Info) Description 02/18/2024 8:40 AM EDT Office Visit Family Practice 65 [facility] [place] [address] [place] [address] Svetlana Jacobs DO 293 [facility], [place] [address] 06/22/2024 11:00 AM EDT Office Visit Cardiology, [facility] 132 [facility] [place] [address] Dann Hancock PA-C [address] [place] [address] 07/19/2024 1:45 PM EDT Office Visit Urology, [facility] 132 [facility] [place] [address] Hayden Johnson MD [address] [place] [address] [place] [address] 09/08/2024 10:45 AM EST Office Visit Dermatology [facility] [address] [facility] [place] [address] Abdelrahman Silva MD [address] [facility] [place] [address] 09/29/2024 2:40 PM EST Office Visit Nephrology, [facility] [address] [facility] [place] [place] [address] Blake Becker MD [address] [facility] [place] [address] 09/30/2024 11:00 AM EST Nurse Only Ancillary 65 [facility] [address] [place] [address] College, Nurse Annual Wellness Visit [address] [address] Health Maintenance Due Date Last Done Comments [...] Additional history exists CKD HGB USE SMARTSET 28400 02/08/202502/08, 02/09/2024, 11/10/2023, Additional history exists CKD PHOS USE SMARTSET 28145 02/08/202501/18, 10/16/2023, 01/28/2023, Additional history exists DXA Scan 01/10/2026 01/11/2024, 07/19, 05/09/2015 DTaP,Tdap,and Td Vaccines (2 - Td or Tdap) 01/23/2026 01/24/2016 Pneumococcal Vaccine: 65+ Years Completed 06/06/2016, 01/26/2013 Zoster Vaccines Completed 06/23/2019, 02/18, 02/23/2018, Additional history exists Colonoscopy Discontinued 08/19/2019, 10/2018, 07/20/2018, Additional history exists Colorectal Cancer Screening Discontinued VITAMIN D LEVEL ONCE IN A LIFETIME-USE SMARTSET# 72671 Completed 11/13/2022, 05/07/2006 Influenza Vaccine (FLU shot) [...] this encounter Medical Devices Implanted Type Area Egg Separator Device Identifier Shelf Expiration Date Model / Serial / Lot Dbx 5cc [id number] - [id number] - [id number] Implanted:Qty : 1 on 01/08/2021 by Kuldeep Fisher DO at OR [facility] Tissue - Human Left: Spine Lumbar MUSCULOSKELETAL TRANSPLANT FND [id number] 06/18/2022 [id number] / [id number] / LOT NA Description:[id number] Implant Ifuse 3d 7x55 Mm - [id number] Implanted:Qty : 1 on 01/08/2021 by Kuldeep Fisher DO at OR [facility] Left: Spine Lumbar [employer] 09/05/2024 7055M-90 / / [id number] Implant Ifuse 3d 7x55 Mm - [id number] Implanted:Qty : 1 on 01/08/2021 by Kuldeep Fisher DO OR [facility] Left: Spine Lumbar [employer] 03/29/2024 7055M-90 / / [id number] Ifuse Implant System 7.0 X 50mm Implant Implanted:Qty : 1 on 01/08/2021 by Kuldeep Fisher DO OR [facility] Left: Spine Lumbar 05/11/2025 7050M-90 / / [id number] Implant Ifuse 3d 7x50 Mm - [id number] Implanted:Qty : 2 on 03/12/2021 by Kuldeep Fisher DO OR [facility] Right: Pelvis [employer] 09/18/2025 7050M-90 / / [id number] Dbx 2.5cc [id number] - [id number] - [id number] Implanted:Qty : 1 on 03/12/2021 by Kuldeep Fisher DO OR [facility] Right: Iliac MUSCULOSKELETAL TRANSPLANT FND [id number] 07/20/2022 [id number] / [id number] / LOT NA Implant Ifuse 3d 7x45 Mm - [id number] Implanted:Qty : 1 on 03/12/2021 by Kuldeep Fisher DO OR [facility] Right: Pelvis [employer] 09/18/2025 7045M-90 / / [id number] documented as of this encounter Advance Directives [...] jordan occurred with: Not Discussed Care Teams Payroll And Benefits Specialist Relationship Specialty Start Date End Date Svetlana Jacobs DO [address] [place] [address] PCP - General Family Medicine 10/01/23 documented as of this encounter
--- OUTSIDE RECORDS SUMMARY | 2024-02-14 11:58 | External Medical Summary | Summary of Care ---
Author Name Unknown Organization [facility] Address [address] [place] [address] Phone [phone] Care Team Providers Care Shipping Support Name Role Phone Svetlana Jacobs DO Primary Care Provider [phone] Reason for Visit * Reason Comments Medication Refill Encounter Details Date Type Department Care Team (Late st Contact Info) Description 02/09/2024 Refill Cardiology, [facility] [address] [place] [address] Carlos Alberto Hood PA-C [address] [place], [place] [id number] HTN, goal below 130/80* Allergies Active Allergy Reactions Criticality Noted Date Comments Adhesive Tape Other (Please comment) Low 07/19/2019 Skin irritation Ibuprofen Bleeding High 09/03/2016 (NSAIDS) Other reaction(s): Bleeding Latex Rash High 01/25/2019 Other reaction(s): Rash Nickel High 12/16/2011 Rash/blisters if prison exposure Other reaction(s): SEVERE DERMATITIS Other reaction(s): CD - Contact dermatitis Nsaids High 07/25/2015 Other reaction(s): HX OF BLEEDING ULCERS-TO AVOID Oxycodone Neuro complications (Please comment) High 02/19/2021 Opioid abuse Other reaction(s): neuro complications opioid abuse-recent overdose 01/2021 documented as of this encounter (statuses as of 02/09/2024) Medications Medication Sig Dispensed Refills Start Date [...] Tablet Sublingual (Nitrostat)Indicati ons:Coronary artery disease involving [place] coronary artery of [place] heart without angina pectoris,Dyslipidem ia, goal LDL [...] Oral Tablet Extended Release 24 Hour (toPROL XL)Indications:HTN, goal below 130/80 TAKE 1 TABLET BY MOUTH EVERY DAY IN THE MORNING 90 Tablet 1 4 Active Metoprolol Succinate ER 100 MG Oral Tablet Extended Release 24 Hour (toPROL XL) TAKE 1 TABLET BY MOUTH EVERY DAY IN THE MORNING 90 Tablet 1 3 02/09/20 24 Discontinu ed(Refill) documented as of this encounter (statuses as of 02/09/2024) Active Problems Problem Noted Date Diagnosed Date [...] thrombosis) 02/08/2020 Coronary artery disease invo lving [place] coronary artery of [place] heart without angina pectoris 02/08/2020 Failed back [...] as of this encounter (statuses as of 02/09/2024) Resolved Problems Problem Noted Date Diagnosed Date Resolved Date Sacroiliitis 10/22/2021 10/22/2021 Morbid obesity, unspecified obesity type 10/22/2021 10/28/2023 Atrial fibrillation 10/22/2021 10/22/19 Opioid abuse 02/19/2021 10/28/2023 Unspecified mood (affective) disorder 08/21/2019 02/07/2020 Prediabetes 02/28/2019 08/02/2020 Overview: Per Prediabetes protocol #1 Encounter for examination fo r normal comparison and control in clinical research program 02/23/2018 05/21/2020 Overview: DO NOT DELETE [facility] DETECT Study: Project # [id number], Court Clerk: Yoel Sung, PhD. SUMMARY: Goal: Establish test [...] contact study staff at ; after hours Court Clerk via the [facility] hospital container crane operator . Please contact study team before resolving/deleting from patients problem list. Study phone number: [phone]. Diagnosis changed due to Research Module. Go to [employer] for study details. Encounter for examination fo r normal comparison and control in clinical research program 02/23/2018 06/19/2022 Overview: DO NOT DELETE - [facility] Study: Project # [id number], Court Clerk: Ranjeet Villa, MS, MPH. SUMMARY: Goal: Establish [...] contact study staff at ; after hours Court Clerk via the [facility] container crane operator . - Please contact study team before resolving/deleting from patients problem list. Study phone number: [phone]. Diagnosis changed due to Research Module. Go to [employer] for study details. Preop examination 03/29/2016 09/30/2016 Abnormal electrocardiogram 03/29/2016 1 11/07/2018 MEDICATION USE AGREEMENT 05/03/2015 Overview: Signed 05/03/2015 Charanjit Spann MD [facility] Encounter for long-term (cur rent) use of medications 12/31/2011 02/07/2020 Overview: ICD-10 update of inactive term Postlaminectomy syndrome 12/16/201107/2017 Lumbago 12/16/2011 07/28/2017 Mixed dyslipidemia 10/30/2005 9 Overview: Per Lipid Taxonomy. documented as of this encounter (statuses as of 02/09/2024) Immunizations Name Administration Dates Next Due COVID-19 mRNA, LNP-s, No Pre serve, 2-Dose Series (Bluetector) 08/29/2021,03/06/2021,02/13/2021 COVID-19, LNP-s, No Preserve , Ad-sucrose, Ages 12+ (Pfizer) 02/07/2022 COVID-19, MRNA-LNP, 23-24, P F, 30 MCG/0.3 mL, 12 YRS AND ABOVE, IM ([employer]Comirnat) 12/15/2023 Covid-19, Mrna, Lnp-s, Pf, B ivalent, 30 Mcg, IM, 12 yrs and above (Bluetector) 08/01/2022 Pneumococcal Conjugate Vacc, 13 Valent (Prevnar) [...] (15 years old or older) No 03/12/20 21 Cognitive Status Response Date of Assessm ent Because of a physical, menta l, or emotional condition, do you have serious difficulty concentrating, remembering, or making decisions? (5 years old or older) No 03/12/2021 documented as of this encounter Miscellaneous Notes * Telephone Encounter - Carlos Alberto Hood PA-C - 02/09/2024 4:16 PM EDTSigned Prescriptions: Disp Refills Metoprolol Succinate ER 100 MG Oral Tablet*90 Tab*1 Sig: TAKE 1 TABLET BY MOUTH EVERY DAY IN THE MORNING Authorizing Provider: CARLOS ALBERTO HOOD * Telephone Encounter - Lina Larose CMA - 02/09/2024 2:40 PM EDTPending Prescriptions: Disp Refills Metoprolol Succinate ER 100 MG Oral Tablet*90 Tab*1 Sig: TAKE 1 TABLET BY MOUTH EVERY DAY IN THE MORNING * Telephone Encounter - Lina Larose CMA - 02/09/2024 2:39 PM EDT Did you pend patient's preferred pharmacy and medication before forwarding?yes Pharmacy: [facility] Pending Prescriptions: Disp Refills Metoprolol Succinate ER 100 MG Oral Table*90 Tab*1 Sig: TAKE 1 TABLET BY MOUTH EVERY DAY IN THE MORNING Last Visit: 12/21/2023 (in office), Visit date not found (telemedicine) Next Visit: 06/22/2024 If no future appointments scheduled, and last appointment is greater than a year ago, please schedule patient for a follow-up appointment Last date the medication was ordered: 08-17-2023 Is this request for a controlled substance?No Urine Drug Screen: Results for orders placed or performed in visit on 12/31/20 TOXICOLOGY, URINE SCREEN W/ CONFIRMATION Result Value Amphetamines Screen, U Negative Benzodiazepines Screen, U Negative Cannabinoids Screen, U Negative Cocaine Metabolite Screen, U Negative Hydrocodone Screen, U Negative Methadone Metabolite Screen, U Negative Morphine/Codeine Screen, U Negative Oxycodone Screen, U Negative Narrative Cutoff Concentrations: Drug Level Amphetamines 500 ng/mL Benzodiazepines 100 ng/mL Cannabinoids 50 ng/mL Cocaine Metabolite 150 ng/mL Hydrocodone / Hydromorphone 100 ng/mL Methadone Metabolite 100 ng/mL Morphine / Codeine 300 ng/mL Oxycodone / Oxymorphone 100 ng/mL Screening results are presumptive and can only be used for medical purposes. Positive screening results are reflexed to confirmatory testing. *Note: Due to a large number of results and/or encounters for the requested time period, some results have not been displayed. A complete set of results can be found in Results Review. Patient Phone Numbers Labs: Lab Results Component Value Date/Time CREAT 0.8 02/09/2024 10:16 AM CREAT 0.79 01/12/2024 12:00 AM CREAT 0.8 08/19/2019 01:40 PM CREAT 0.5 (L) 01/20/1997 05:58 AM POTASSIUM 3.9 02/09/2024 10:16 AM POTASSIUM 3.1 (A) 01/12/2024 12:00 AM POTASSIUM 3.5 08/19/2019 01:40 PM POTASSIUM 4.8 01/20/1997 05:58 AM TSH 1.340 10/16/2023 12:00 AM TSH 0.78 07/13/2018 01:49 PM TSH 4.11 01/19/1997 07:04 AM LDLCALC 56 10/16/2023 12:00 AM LDLCALC 148 (H) 03/06/2015 12:54 PM ALT 12 01/12/2024 12:00 AM ALT 18 08/19/2019 01:40 PM ALT 567 (HH) 01/17/1997 07:05 AM HGBA1C 5.9 (A) 10/16/2023 12:00 AM documented in this encounter Plan of Treatment Upcoming Encounters Date Type Department Care Team (Late st Contact Info) Description 02/10/2024 2:00 PM EDT Imaging Radiology [facility] [address] [facility] [place] [address] 02/10/2024 2:30 PM EDT Imaging Radiology [facility] [address] [facility] [address] 02/18/2024 8:40 AM EDT Office Visit Family Practice [address] [place] [address] [place] [address] Svetlana Jacobs DO [address] [place] [address] 06/22/2024 11:00 AM EDT Office Visit Cardiology, [facility] [address] [facility] [place] [address] Carlos Alberto Hodo, PA-C [address] [facility] [place] [address] 07/19/2024 1:45 PM EDT Office Visit Urology, [facility] [address] [facility] [place] [address] Hayden Johnson MD [address] [address] [place] [address] 09/08/2024 10:45 AM EST Office Visit Dermatology [facility] [address] [place] [address] Abdelrahman Silva MD [address] [facility] [place] [address] 09/29/2024 2:40 PM EST Office Visit Nephrology, [facility] [address] [facility] [address] [place] [address] Blake Becker MD [address] [facility] [place] [address] 09/30/2024 11:00 AM EST Nurse Only Ancillary [address] [place] [address] [place] [address] College, Nurse Annual Wellness Visit [address] [facility] [address] [place] [address] Health Maintenance Due Date Last Done Comments HOME BP CUFF VALIDATION YEARLY 07/01/2020 07/01/2019 *BISPHONATE OR OTHER ACCEPTABLE MEDICATION NEEDED FOR OSTEOPOROSIS (REFER TO SMARTSET #1146) 10/31/2022 Diabetic Eye Exam 01/21/2024 01/20/2023, , 12/03/2022, Additional history exists HbA1c 04/16/2024 10/16/2023, 09/0 05/2023, 11/18/2022, Additional history exists Diabetic Foot Exam 05/26/2024 05/26/2023, 1 , 07/09/2021 GFR 08/10/2024 02/09/2024, 2 03/2024, 11/10/2023, Additional history exists Albumin/Creatinine Ratio 10/16/2024 023, 12/03/2022, 01/15/2022, Additional history exists TSH 10/16/2024 10/16/2023, 0 12/2022, 06/20/2022, Additional history exists CKD HGB USE SMARTSET 62197 11/10/202402/08, 02/09/2024, 11/10/2023, Additional history exists CKD PHOS USE SMARTSET 55520 02/08/20252 12/2023, 10/16/2023, 01/28/2023, Additional history exists DXA Scan 01/10/2026 01/11/2024, 07/19, 05/09/2015 DTaP,Tdap,and Td Vaccines (2 - Td or Tdap) 01/23/2026 01/24/2016 Pneumococcal Vaccine: 65+ Years Completed 06/06/2016, 01/26/2013 Zoster Vaccines Completed 06/23/2019, 02/18, 02/23/2018, Additional history exists Colonoscopy Discontinued 08/19/2019, 10/2018, 07/20/2018, Additional history exists Colorectal Cancer Screening Discontinued VITAMIN D LEVEL ONCE IN A LIFETIME-USE SMARTSET# 68507 Completed 11/13/2022, 05/07/2006 Influenza Vaccine (FLU shot) [...] this encounter Medical Devices Implanted Type Area Diesel Inspector Device Identifier Shelf Expiration Date Model / Serial / Lot Dbx 5cc [id number] - [id number] - [id number] Implanted:Qty : 1 on 01/08/2021 by Kuldeep Fisher DO at OR [facility] Tissue - Human Left: Spine Lumbar [employer] FND [id number] 06/18/2022 [id number] / [id number] / LOT NA Description:[id number] Implant Ifuse 3d 7x55 Mm - [id number] Implanted:Qty : 1 on 01/08/2021 by Kuldeep Fisher DO at OR [facility] Left: Spine Lumbar [employer] 09/05/2024 7055M-90 / / [id number] Implant Ifuse 3d 7x55 Mm - [id number] Implanted:Qty : 1 on 01/08/2021 by Kuldeep Fisher DO at OR [facility] Left: Spine Lumbar [employer] 03/29/2024 7055M-90 / / [id number] Ifuse Implant System 7.0 X 50mm Implant Implanted:Qty : 1 on 01/08/2021 by Kuldeep Fisher DO at OR [facility] Left: Spine Lumbar 05/11/2025 7050M-90 / / [id number] Implant Ifuse 3d 7x50 Mm - [id number] Implanted:Qty : 2 on 03/12/2021 by Kuldeep Fisher DO at OR [facility] Right: Pelvis [employer] 09/18/2025 7050M-90 / / [id number] Dbx 2.5cc [id number] - [id number] - [id number] Implanted:Qty : 1 on 03/12/2021 by Kuldeep Fisher DO at OR [facility] Right: Iliac [employer]LET[employer] FND [id number] 07/20/2022 [id number] / [id number] / LOT NA Implant Ifuse 3d 7x45 Mm - [id number] Implanted:Qty : 1 on 03/12/2021 by Kuldeep Fisher DO at OR [facility] Right: Pelvis [employer] 09/18/2025 7045M-90 / / [id number] documented as of this encounter Visit Diagnoses Diagnosis HTN, goal below 130/80- Primary Unspecified essential hypertension documented in this encounter Advance Directives Latest Code Status [...] jordan occurred with: Not Discussed Care Teams Shipping Support Relationship Specialty Start Date End Date Svetlana Jacobs DO [address] [facility] [place] [address] PCP - General Family Medicine 10/01/23 documented as of this encounter
--- OUTSIDE RECORDS SUMMARY | 2024-02-14 11:58 | External Medical Summary ---
Author Name Unknown Address Unknown Organization [id number]:[facility] [address] Laboratory Report Ordering Provider Test Date Status NICK FREITAS 02/09/2024 10:16:40 Final Observation Date Value Abnormality Reference (Units ) Status BUN 02/09/2024 10:16:40 11 6-20 (mg/dL) Final Creatinine 02/09/2024 10:16:40 0.8 0.5-1.0 (mg/dL) Final Glomerular filtration rate/1.73 sq M.predicted [Volume Rate/Area] in Serum, Plasma or Blood by Creatinine-based formula (CKD-EPI) 02/09/2024 10:16:40 76 >=60 (mL/min) Final eGFR is calculated based on the CKD-EPI 2020 equation Sodium 02/09/2024 10:16:40 140 135-146 (m mol/L) Final Potassium 02/09/2024 10:16:40 3.9 3.5-5.1 (m mol/L) Final Cl 02/09/2024 10:16:40 102 98-107 (mm ol/L) Final CO2 02/09/2024 10:16:40 28 22-32 (mmo l/L) Final Anion gap 02/09/2024 10:16:40 10 7-15 (mmol /L) Final Glucose 02/09/2024 10:16:40 111 70-120 (mg /dL) Final Calcium 02/09/2024 10:16:40 9.9 8.4-10.2 ( mg/dL) Final Albumin 02/09/2024 10:16:40 4.2 3.8-5.0 (g /dL) Final Phosphate 02/09/2024 10:16:40 3.5 2.5-4.8 (m g/dL) Final Performing Location [facility] [place] [address]
--- OUTSIDE RECORDS SUMMARY | 2024-02-14 11:58 | External Medical Summary ---
Author Name Unknown Address Unknown Organization [id number] [place] [address] [facility] [place] [address] Laboratory Report Ordering Provider Test Date Status NICK FREITAS 02/09/2024 10:16:40 Final Observation Date Value Abnormality Reference (Units ) Status Parathyrin.intact [Mass/volume] in Serum or Plasma 02/09/2024 10:16:40 69 Above high normal 15-65 (pg/mL) Final Performing Location [facility] [place] [address] [facility] [address]
--- OUTSIDE RECORDS SUMMARY | 2024-02-14 11:58 | External Medical Summary ---
Author Name Unknown Address Unknown Organization [id number][place] [place] [address] [facility] [place] [address] Laboratory Report Ordering Provider Test Date Status COREY BRAVO 02/09/2024 10:16:40 Final Observation Date Value Abnormality Reference (Units ) Status CRP, low-sensitivity 02/09/2024 10:16:40 <3 <=5 (mg/L) Final Performing Location [facility] - [address] [facility] [address]
--- OUTSIDE RECORDS SUMMARY | 2024-02-14 11:58 | External Medical Summary | Summary of Care ---
Author Name Unknown Organization [facility] Address [address] [place] [address] Phone [phone] Care Team Providers Care Coffee Shop Attendant Name Role Phone Svetlana Jacobs DO Primary Care Provider Reason for Visit * Reason Onset Date Comments Appointment 02/04/2024 labs Test Results Lab 02/04/202402/03 Test Results 02/04/202402/04 Encounter Details Date Type Department Care Team (Late st Contact Info) Description 02/04/2024 Telephone Family Practice [address] [facility] [place] [address] [place] [phone] Svetlana Jacobs DO [address] [place], [place] [phone] Appointment (labs); Test Results Lab (02/03... Allergies Active Allergy Reactions Criticality Noted Date Comments Adhesive Tape Other (Please comment) Low 07/19/2019 Skin irritation Ibuprofen Bleeding High 09/03/2016 (NSAIDS) Other reaction(s): Bleeding Latex Rash High 01/25/2019 Other reaction(s): Rash Nickel High 12/16/2011 Rash/blisters if fpc exposure Other reaction(s): SEVERE DERMATITIS Other reaction(s): CD - Contact dermatitis Nsaids High 07/25/2015 Other reaction(s): HX OF BLEEDING ULCERS-TO AVOID Oxycodone Neuro complications (Please comment) High 02/19/2021 Opioid abuse Other reaction(s): neuro complications opioid abuse-recent overdose 01/2021 documented as of this encounter (statuses as of 02/10/2024) Medications Medication Sig Dispensed Refills Start Date [...] Tablet Sublingual (Nitrostat)Indicati ons:Coronary artery disease involving [place] coronary artery of [place] heart without angina pectoris,Dyslipidem ia, goal LDL [...] as of this encounter (statuses as of 02/10/2024) Active Problems Problem Noted Date Diagnosed Date [...] thrombosis) 02/08/2020 Coronary artery disease invo lving [place] coronary artery of [place] heart without angina pectoris 02/08/2020 Failed back [...] as of this encounter (statuses as of 02/10/2024) Resolved Problems Problem Noted Date Diagnosed Date Resolved Date Sacroiliitis 10/22/2021 10/22/2021 Morbid obesity, unspecified obesity type 10/22/2021 10/28/2023 Atrial fibrillation 10/22/2021 10/22/19 22 Opioid abuse 02/19/2021 10/28/2023 Unspecified mood (affective) disorder 08/21/2019 02/07/2020 Prediabetes 02/28/2019 08/02/2020 Overview: Per Prediabetes protocol #1 Encounter for examination fo r normal comparison and control in clinical research program 02/23/2018 05/21/2020 Overview: DO NOT DELETE [facility] DETECT Study: Project # [id number], Waiter/Waitress: Yoel Sung, PhD. SUMMARY: Goal: Establish test [...] contact study staff at ; after hours Waiter/Waitress via the [facility] power sweeper operator . Please contact study team before resolving/deleting from patients problem list. Study phone number: [phone]. Diagnosis changed due to Research Module. Go to Snapshot for study details. Encounter for examination fo r normal comparison and control in clinical research program 02/23/2018 06/19/2022 Overview: DO NOT DELETE - [facility] Study: Project # [id number], Waiter/Waitress: Ranjeet Villa, MS, MPH. SUMMARY: Goal: Establish [...] contact study staff at ; after hours Waiter/Waitress via the [facility] power sweeper operator . - Please contact study team before resolving/deleting from patients problem list. Study phone number: [phone]. Diagnosis changed due to Research Module. Go to [employer] for study details. Preop examination 03/29/2016 09/30/2016 Abnormal electrocardiogram 03/29/201611/07/2018 MEDICATION USE AGREEMENT 05/03/2015 Overview: Signed 05/03/2015 Charanjit Spann MD [facility] Encounter for long-term (cur rent) use of medications 12/31/2011 02/07/2020 Overview: ICD-10 update of inactive term Postlaminectomy syndrome 12/16/201107/2017 Lumbago 12/16/2011 07/28/2017 Mixed dyslipidemia 10/30/2005 9 Overview: Per Lipid Taxonomy. documented as of this encounter (statuses as of 02/10/2024) Immunizations Name Administration Dates Next Due COVID-19 mRNA, LNP-s, No Pre serve, 2-Dose Series (Tastebuds) 08/29/2021,03/06/2021,02/13/2021 COVID-19, LNP-s, No Preserve , Ad-sucrose, Ages 12+ (Pfizer) 02/07/2022 COVID-19, MRNA-LNP, 23-24, P F, 30 MCG/0.3 mL, 12 YRS AND ABOVE, IM (neoSaej-Comirnat) 12/15/2023 Covid-19, Mrna, Lnp-s, Pf, B ivalent, [...] Potassium supplements in the past but her Affiliate Marketing Coordinator stopped them approx 1 year ago due [...] for results of lab work drawn at [facility] on . Also asking about results of A1c drawn that date. * Telephone Encounter - Radha Rodriguez OSA - 02/04/2024 4:34 PM EDT Pt calling to get results of recent labs that were done Please call her at [phone] documented in this encounter Plan of Treatment Upcoming Encounters Date Type Department Care Team (Late st Contact Info) Description 02/18/2024 8:40 AM EDT Office Visit Family Practice 65 [facility] 293 [place] [address] Svetlana Jacobs DO 293 [place] [address] 06/22/2024 11:00 AM EDT Office Visit Cardiology, [facility] [address] [place] [address] Dann Hancock PA[facility]C [facility] [address] 07/19/2024 1:45 PM EDT Office Visit Urology, [facility] [address] [place] [address] Hayden Johnson MD 27 [facility] [address] [place] [address] 09/08/2024 10:45 AM EST Office Visit Dermatology [facility] 200 [facility] [place] [address] Abdelrahman Silva MD 200 [facility] [place] [address] 09/29/2024 2:40 PM EST Office Visit Nephrology, [facility] [address] [facility] [place] [address] Blake Becker MD 200 [facility] [place] [address] 09/30/2024 11:00 AM EST Nurse Only Ancillary 65 [facility] 293 [facility], [place] [address] College, Nurse Annual Wellness Visit [address] [place] [address], [place] [address] Health Maintenance Due Date Last Done Comments [...] Additional history exists CKD HGB USE SMARTSET 35948 02/08/202502/08, 02/09/2024, 11/10/2023, Additional history exists CKD PHOS USE SMARTSET 51391 02/08/202501/18, 10/16/2023, 01/28/2023, Additional history exists DXA Scan 01/10/2026 01/11/2024, 07/19, 05/09/2015 DTaP,Tdap,and Td Vaccines (2 - Td or Tdap) 01/23/2026 01/24/2016 Pneumococcal Vaccine: 65+ Years Completed 06/06/2016, 01/26/2013 Zoster Vaccines Completed 06/23/2019, 02/18, 02/23/2018, Additional history exists Colonoscopy Discontinued 08/19/2019, 10/2018, 07/20/2018, Additional history exists Colorectal Cancer Screening Discontinued VITAMIN D LEVEL ONCE IN A LIFETIME-USE SMARTSET# 26292 Completed 11/13/2022, 05/07/2006 Influenza Vaccine (FLU shot) [...] this encounter Medical Devices Implanted Type Area Feed In Worker Device Identifier Shelf Expiration Date Model / Serial / Lot Dbx 5cc [id number] - [id number] - [id number] Implanted:Qty : 1 on 01/08/2021 by Kuldeep Fisher DO at OR [facility] Tissue - Human Left: Spine Lumbar MUSCULOSKELETAL TRANSPLANT FND [id number] 06/18/2022 [id number] / [id number] / LOT NA Description:[id number] Implant Ifuse 3d 7x55 Mm - [id number] Implanted:Qty : 1 on 01/08/2021 by Kuldeep Fisher DO at OR [facility] Left: Spine Lumbar [employer] 09/05/2024 7055M-90 / / [id number] Implant Ifuse 3d 7x55 Mm - [id number] Implanted:Qty : 1 on 01/08/2021 by Kuldeep Fisher DO at OR [facility] Left: Spine Lumbar [employer] 03/29/2024 7055M-90 / / [id number] Ifuse Implant System 7.0 X 50mm Implant Implanted:Qty : 1 on 01/08/2021 by Kuldeep Fisher DO at OR [facility] Left: Spine Lumbar 05/11/2025 7050M-90 / / [id number] Implant Ifuse 3d 7x50 Mm - [id number] Implanted:Qty : 2 on 03/12/2021 by Kuldeep Fisher DO at OR [facility] Right: Pelvis [employer] 09/18/2025 7050M-90 / / [id number] Dbx 2.5cc [id number] - [id number] - [id number] Implanted:Qty : 1 on 03/12/2021 by Kuldeep Fisher DO at OR [facility] Right: Iliac MUSCULOSKELETAL TRANSPLANT FND [id number] 07/20/2022 [id number] / [id number] / LOT NA Implant Ifuse 3d 7x45 Mm - [id number] Implanted:Qty : 1 on 03/12/2021 by Kuldeep Fisher DO at OR [facility] Right: Pelvis [employer] 09/18/2025 7045M-90 / / [id number] documented as of this encounter Advance Directives [...] jordan occurred with: Not Discussed Care Teams Coffee Shop Attendant Relationship Specialty Start Date End Date Svetlana Jacobs DO [address] [facility] [place] [address] PCP - General Family Medicine 10/01/23 documented as of this encounter
--- OUTSIDE RECORDS SUMMARY | 2024-02-14 11:58 | External Medical Summary | Summary of Care ---
Author Name Unknown Organization [facility] Address [address] [place] [address] Phone [phone] Care Team Providers Care Fishing Manager Name Role Phone Svetlana Jacobs DO Primary Care Provider [phone] Reason for Visit * Reason Onset Date Comments Advice 02/02/2024 Encounter Details Date Type Department Care Team (Late st Contact Info) Description 02/02/2024 Telephone NephrologyHossein 200 [place] [address] Blake Becker MD 200 [facility] [place] [phone] Advice Allergies Active Allergy Reactions Criticality Noted Date [...] as of this encounter (statuses as of 02/03/2024) Medications Medication Sig Dispensed Refills Start Date End Date Status Triamcinolone Acetonide 0.1 % External Cream (Aristocort)Indicati ons:Lichenoid dermatitis,Rash and nonspecific skin eruption Apply topically to affected area 2 times a day . To affected area. 60 g 5 04/10/2022 Active Ketoconazole 2 % External Cream Apply topically to affected area 2 times a day . Apply to under breasts 60 g 5 04/25/2022 Active Aspirin EC 81 MG Oral Tablet Delayed Release Take 1 Tablet by mouth in the morning. 0 10/21/2022 Active tiZANidine HCl 4 MG Oral Tablet (Zanaflex)Indication s:Post-polio syndrome,Postlaminec marino syndrome,Chronic low back pain,Postlaminectomy syndrome, lumbar region,Postlaminecto my syndrome, thoracic region TAKE 1 TABLET BY MOUTH TWICE A DAY NEEDED FOR MUSCLE SPASMS, DO NOT TAKE WITH BACLOFEN 180 Tablet 1 01/28/2023 Active Centrum Silver 50+Women Oral Tablet Take 2 Tablets by mouth in the morning. 0 04/02/2023 Active Olopatadine HCl 0.2 % Ophthalmic SolutionIndications: Allergic conjunctivitis of both eyes INSTILL 1 DROP INTO BOTH EYES DAILY. 7.5 mL 1 04/02/2023 Active Additional Information Patient not taking.Reported on 12/21/2023 Advanced Probiotic Oral Capsule Take 2 Capsules by mouth in the morning. 0 04/18/2023 Active Spironolactone 25 MG Oral Tablet (Aldactone)Indicatio ns:HTN, goal below 130/80 TAKE 1 TABLET BY MOUTH EVERY DAY IN THE MORNING 90 Tablet 3 05/11/2023 Active Roller WalkerIndications:Hi story of TIA (transient ischemic attack),Chronic diastolic congestive heart failure (HCC),Postlaminectom y syndrome, thoracic region,Postlaminecto my syndrome, lumbar region,Morbid obesity, unspecified obesity type (HCC) Rolling walker with seat and brakes. Would like walker with bigger wheels Would like cornflower blue or green in color 1 Each 0 06/11/2023 Active Additional Information Patient not taking.Reported on 01/19/2024 Trulance 3 MG Oral Tablet (Plecanatide) take 1 tablet (3mg) by mouth daily in the morning 90 Tablet 2 06/11/2023 Active busPIRone HCl 10 MG Oral Tablet (Buspar) take 1 tablet by mouth twice daily 180 Tablet 0 06/19/2023 Active Metoprolol Succinate ER 100 MG Oral Tablet Extended Release 24 Hour (toPROL XL) TAKE 1 TABLET BY MOUTH EVERY DAY IN THE MORNING 90 Tablet 1 08/17/2023 Active Myrbetriq 25 MG Oral Tablet Extended Release 24 Hour (Mirabegron ER) Take 1 Tablet by mouth in the morning. 30 Tablet 6 09/01/2023 Active NATURAL SUPPLEMENT Take 2 Capsules by mouth in the morning. Help with BM's/constipation -Stephanie. 0 Active Promethazine HCl 25 MG Oral Tablet (Phenergan)Indicatio ns:Nausea and vomiting, unspecified vomiting type Take 1 Tablet by mouth every 6 hours as needed for Nausea. 40 Tablet 1 09/29/2023 Active Acetaminophen 500 MG Oral Packet Take [...] HOURS NEEDED Needed FOR pain, SEVERE 0 10/21/2023 Active traZODone HCl 150 MG Oral Tablet (Desyrel) take 2 tablets by mouth daily at bedtime 180 Tablet 0 11/30/2023 Active Ondansetron HCl 4 MG Oral Tablet (Zofran)Indications: Nausea and vomiting, unspecified vomiting type Take 1 Tablet by mouth 3 times a day as needed for Nausea or Vomiting. 30 Tablet 0 12/01/2023 Active Levothyroxine Sodium 75 MCG Oral Tablet (Levoxyl)Indications :Hypothyroidism, unspecified type TAKE 1 TABLET BY MOUTH DAILY 30 MINUTES BEFORE BREAKFAST OR MEDS 90 Tablet 3 12/01/2023 Active Ozempic (2 MG/DOSE) 8 MG/3ML Subcutaneous Solution Pen-injector (Semaglutide (2 MG/DOSE)) Inject 2 mg under the skin once weekly 9 mL 1 12/14/2023 Active EpiPen 2-Lee 0.3 MG/0.3ML Injection Solution Auto-injector INJECT INTO OUTER THIGH FOLLOWING DIRECTIONS ON PACKAGE AND TO GO EMERGENCY ROOM 2 Each 1 12/15/2023 Active Nitroglycerin 0.3 MG Sublingual Tablet Sublingual (Nitrostat)Indicatio ns:Coronary artery disease involving [place] coronary artery of [place] heart without angina pectoris,Dyslipidemi a, goal LDL below 100,Essential hypertension with goal blood pressure less than 140/90 Place 1 Tablet under the tongue every 5 minutes as needed for Pain, Chest. 25 Tablet 11 12/15/2023 Active Pantoprazole Sodium 40 MG Oral Tablet Delayed Release (Protonix) Take 1 Tablet by mouth in the morning. 100 Tablet 1 12/19/2023 Active Additional Information Patient taking differently:40 mg Oral Daily(AM),Pt reports she is taking twice a day., Reported on 12/30/2023 Apixaban 5 MG Oral Tablet (Eliquis)Indications :History of DVT (deep vein thrombosis) TAKE ONE TABLET BY MOUTH EVERY MORNING AND TAKE ONE TABLET BY MOUTH AT BEDTIME 200 Tablet 0 12/30/2023 Active Atorvastatin Calcium 40 MG Oral Tablet (Lipitor) TAKE 1 TABLET BY MOUTH EVERY DAY 100 Tablet 2 01/13/2024 Active traMADol HCl 50 MG Oral Tablet (Ultram) 1 Tablet every 8 hours as needed. 0 01/12/2024 Active Furosemide 20 MG Oral Tablet (Lasix)Indications:C hronic diastolic congestive heart failure (HCC) TAKE TWO TABLETS BY MOUTH EVERY MORNING 200 Tablet 1 02/01/2024 Active documented as of this encounter (statuses as of 02/03/2024) Active Problems Problem Noted Date Diagnosed Date [...] thrombosis) 02/08/2020 Coronary artery disease invo lving [place] coronary artery of [place] heart without angina pectoris 02/08/2020 Failed back [...] as of this encounter (statuses as of 02/03/2024) Resolved Problems Problem Noted Date Diagnosed Date Resolved Date Sacroiliitis 10/22/2021 10/22/2021 Morbid obesity, unspecified obesity type 10/22/2021 10/28/2023 Atrial fibrillation 10/22/2021 10/22/19 22 Opioid abuse 02/19/2021 10/28/2023 Unspecified mood (affective) disorder 08/21/2019 02/07/2020 Prediabetes 02/28/2019 08/02/2020 Overview: Per Prediabetes protocol #1 Encounter for examination fo r normal comparison and control in clinical research program 02/23/2018 05/21/2020 Overview: DO NOT DELETE [facility] DETECT Study: Project # [id number], Hand Candy Cutter: Yoel Sung, PhD. SUMMARY: Goal: Establish test [...] contact study staff at ; after hours Hand Candy Cutter via the [facility] latex thread machine operator . Please contact study team before resolving/deleting from patients problem list. Study phone number: [phone]. Diagnosis changed due to Research Module. Go to Snapshot for study details. Encounter for examination fo r normal comparison and control in clinical research program 02/23/2018 06/19/2022 Overview: DO NOT DELETE [facility] Study: Project # [id number], Hand Candy Cutter: Ranjeet Villa, MS, MPH. SUMMARY: Goal: Establish [...] contact study staff at ; after hours Hand Candy Cutter via the [facility] hospital latex thread machine operator . - Please contact study team before resolving/deleting from patients problem list. Study phone number: [phone]. Diagnosis changed due to Research Module. Go to Snapshot for study details. Preop examination 03/29/2016 09/30/2016 Abnormal electrocardiogram 03/29/2016 1 11/07/2018 MEDICATION USE AGREEMENT 05/03/2015 Overview: Signed 05/03/2015 Charanjit Spann MD [facility] Encounter for long-term (cur rent) use of medications 12/31/2011 02/07/2020 Overview: ICD-10 update of inactive term Postlaminectomy syndrome 12/16/201107/2017 Lumbago 12/16/2011 07/28/2017 Mixed dyslipidemia 10/30/2005 9 Overview: Per Lipid Taxonomy. documented as of this encounter (statuses as of 02/03/2024) Immunizations Name Administration Dates Next Due COVID-19 mRNA, LNP-s, No Pre serve, 2-Dose Series ([employer]) 08/29/2021,03/06/2021,02/13/2021 COVID-19, LNP-s, No Preserve , Ad-sucrose, Ages 12+ (Pfizer) 02/07/2022 COVID-19, MRNA-LNP, 23-24, P F, 30 MCG/0.3 mL, 12 YRS AND ABOVE, IM ([facility]) 12/15/2023 Covid-19, Mrna, Lnp-s, Pf, B ivalent, 30 Mcg, IM, 12 yrs and above ([employer]) 08/01/2022 Pneumococcal Conjugate Vacc, 13 Valent (Prevnar) [...] encounter Miscellaneous Notes * Telephone Encounter - Milagros Franco RN - 02/03/2024 11:10 AM EDT TE with pt. Will be completing test thru [facility] and will return specimen to [facility] lab. * Telephone Encounter - Karyn Alcazar OSA - 02/02/2024 4:34 PM EDT Patient calling about 24 hour urine collection that was given to her. She did not receive the requisition for [facility] in the box. She would like a call back at [phone]. documented in this encounter Plan of Treatment Upcoming Encounters Date Type Department Care Team (Late st Contact Info) Description 02/03/2024 1:45 PM EDT Imaging Radiology [facility] 132 [facility] [place] [address] 02/18/2024 8:40 AM EDT Office Visit Family Practice 65 [facility] 293 [place] [address] Svetlana Jacobs DO 293 [place] [address] 06/22/2024 11:00 AM EDT Office Visit Cardiology, [facility] [place] [address] Dann Hancock PA-C [facility] [place] [address] 07/19/2024 1:45 PM EDT Office Visit Urology, [facility] [address] [facility] [place] [address] Hayden Johnson MD 27 [facility] [address] [place] [address] 09/08/2024 10:45 AM EST Office Visit Dermatology [facility] [address] [place] [address] Abdelrahman Silva MD 200 [facility] [place] [address] 09/29/2024 2:40 PM EST Office Visit Nephrology, [facility] [address] [place] [address] Blake Becker MD 200 [facility] [place] [address] 09/30/2024 11:00 AM EST Nurse Only Ancillary 65 [facility] 293 [place] [address] College, Nurse Annual Wellness Visit [address] [facility] [address] [place] [address] Health Maintenance Due Date Last Done Comments HOME BP CUFF VALIDATION YEARLY 07/01/2020 07/01/2019 *BISPHONATE OR OTHER ACCEPTABLE MEDICATION NEEDED FOR OSTEOPOROSIS (REFER TO SMARTSET #1146) 10/31/2022 Diabetic Eye Exam 01/21/2024 01/20/2023, , 12/03/2022, Additional history exists HbA1c 04/16/2024 10/16/2023, 090 05/2023, 11/18/2022, Additional history exists Diabetic Foot Exam 05/26/2024 05/26/2023, 1 , 07/09/2021 GFR 07/14/2024 01/12/2024, 10/20, 10/16/2023, Additional history exists Albumin/Creatinine Ratio 10/16/2024 023, 12/03/2022, 01/15/2022, Additional history exists CKD PHOS USE SMARTSET 93227 10/16/202409/19, 01/28/2023, 01/26/2023, Additional history exists TSH 10/16/2024 10/16/2023, 0 12/2022, 06/20/2022, Additional history exists CKD HGB USE SMARTSET 07732 11/10/202411/10, 10/16/2023, 06/26/2023, Additional history exists DXA Scan 01/10/2026 01/11/2024, 07/19, 05/09/2015 DTaP,Tdap,and Td Vaccines (2 - Td or Tdap) 01/23/2026 01/24/2016 Pneumococcal Vaccine: 65+ Years Completed 06/06/2016, 01/26/2013 Zoster Vaccines Completed 06/23/2019, 02/18, 02/23/2018, Additional history exists Colonoscopy Discontinued 08/19/2019, 10/2018, 07/20/2018, Additional history exists Colorectal Cancer Screening Discontinued VITAMIN D LEVEL ONCE IN A LIFETIME-USE SMARTSET# 45407 Completed 11/13/2022, 05/07/2006 Influenza Vaccine (FLU shot) [...] this encounter Medical Devices Implanted Type Area Guest Service Manager Device Identifier Shelf Expiration Date Model / Serial / Lot Dbx 5cc [id number] - [id number] - [id number] Implanted:Qty : 1 on 01/08/2021 by Kuldeep Fisher DO at OR [facility] Tissue - Human Left: Spine Lumbar MUSCULOSKELETAL TRANSPLANT FND [id number] 06/18/2022 [id number] / [id number] / LOT NA Description:[id number] Implant Ifuse 3d 7x55 Mm - [id number] Implanted:Qty : 1 on 01/08/2021 by Kuldeep Fisher DO at OR [facility] Left: Spine Lumbar [employer] 09/05/2024 7055M-90 / / [id number] Implant Ifuse 3d 7x55 Mm - [id number] Implanted:Qty : 1 on 01/08/2021 by Kuldeep Fisher DO at OR [facility] Left: Spine Lumbar [employer] 03/29/2024 7055M-90 / / [id number] Ifuse Implant System 7.0 X 50mm Implant Implanted:Qty : 1 on 01/08/2021 by Kuldeep Fisher DO at OR [facility] Left: Spine Lumbar 05/11/2025 7050M-90 / / [id number] Implant Ifuse 3d 7x50 Mm - [id number] Implanted:Qty : 2 on 03/12/2021 by Kuldeep Fisher DO at OR [facility] Right: Pelvis [employer] 09/18/2025 7050M-90 / / [id number] Dbx 2.5cc [id number] - [id number] - [id number] Implanted:Qty : 1 on 03/12/2021 by Kuldeep Fisher DO at OR [facility] Right: Iliac MUSCULOSKELETAL TRANSPLANT FND [id number] 07/20/2022 [id number] / [id number] / LOT NA Implant Ifuse 3d 7x45 Mm - [id number] Implanted:Qty : 1 on 03/12/2021 by Kuldeep Fisher DO at OR [facility] Right: Pelvis [employer] 09/18/2025 7045M-90 / / [id number] documented as of this encounter Advance Directives [...] jordan occurred with: Not Discussed Care Teams Fishing Manager Relationship Specialty Start Date End Date Svetlana Jacobs DO [address] [place] [address] PCP - General Family Medicine 10/01/23 documented as of this encounter
--- OUTSIDE RECORDS SUMMARY | 2024-02-14 11:58 | External Medical Summary | Summary of Care ---
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 7.5 mL 1 04/02/2023 Active Additional Information Patient not taking.Reported on 12/21/2023 Advanced Probiotic Oral Capsule Take 2 Capsules by mouth in the morning. 0 04/18/2023 Active Spironolactone 25 MG Oral Tablet (Aldactone)Indicati ons:HTN, goal below 130/80 TAKE 1 TABLET BY MOUTH EVERY DAY IN THE MORNING 90 Tablet 3 05/11/2023 Active Roller WalkerIndications:H istory of TIA (transient [...] by mouth in the morning. Help with BM's/constipation-E mma. 0 Active Promethazine HCl 25 MG Oral [...] Tablet Sublingual (Nitrostat)Indicati ons:Coronary artery disease involving [place] coronary artery of [place] heart without angina pectoris,Dyslipidem ia, goal LDL [...] 01/12/2024 Active Furosemide 20 MG Oral Tablet (Lasix)Indications: Chronic diastolic congestive heart failure (HCC) TAKE TWO TABLETS BY MOUTH EVERY MORNING 200 Tablet 1 02/01/2024 Active Ozempic (2 MG/DOSE) 8 MG/3ML Subcutaneous Solution Pen-injector (Semaglutide (2 MG/DOSE)) inject 2 mg subcutaneously weekly 3 mL 2 02/02/2024 Active documented as of this encounter (statuses [...] thrombosis) 02/08/2020 Coronary artery disease invo lving [place] coronary artery of [place] heart without angina pectoris 02/08/2020 Failed back surgical syndrome 02/08/2020 Gastroesophageal reflux disease with esophagitis 02/07/2020 GENE (generalized anxiety disorder) 02/07/2020 Chronic pain syndrome 07/28/2017 History of non-ST elevation myocardial infarctio n (NSTEMI) 04/02/2017 Body mass index 35.0-35.9, adult 03/29/2016 Overview: bmi= 35.74 03/29/16 Hypothyroidism 01/24/2016 Post-polio syndrome 03/01/2015 Post traumatic stress disorder (PTSD) 03/01/2015 Postlaminectomy syndrome, lumbar region 12/16/19 Postlaminectomy syndrome, thoracic region 2011 Dyslipidemia 10/04/2009 [...] program 02/23/2018 05/21/2020 Overview: DO NOT DELETE [facility] DETECT Study: Project # [id number], Core Java Engineer: Yoel Sung, PhD. SUMMARY: Goal: Establish test [...] contact study staff at ; after hours Core Java Engineer via the [facility] electronic warfare operator . Please contact study team before resolving/deleting from patients problem list. Study phone number: [phone]. Diagnosis changed due to Research Module. Go to Snapshot for study details. Encounter for examination fo r normal comparison and control in clinical research program 02/23/2018 06/19/2022 Overview: DO NOT DELETE - [facility] Study: Project # [id number], Core Java Engineer: Ranjeet Villa, MS, MPH. SUMMARY: Goal: Establish [...] contact study staff at ; after hours Core Java Engineer via the [facility] electronic warfare operator . - Please contact study team before resolving/deleting from patients problem list. Study phone number: [phone]. Diagnosis changed due to Research Module. Go to Snapshot for study details. Preop examination 03/29/2016 09/30/2016 Abnormal electrocardiogram 03/29/2016 1 11/07/2018 MEDICATION USE AGREEMENT 05/03/2015 Overview: Signed 05/03/[address] Encounter for long-term (cur rent) use of medications 12/31/2011 02/07/2020 Overview: ICD-10 update of inactive term Postlaminectomy syndrome 12/16/201107/2017 Lumbago 12/16/2011 07/28/2017 Mixed dyslipidemia 10/30/2005 9 Overview: Per Lipid Taxonomy. documented as of this encounter (statuses as of 02/09/2024) Immunizations Name Administration Dates Next Due COVID-19 mRNA, LNP-s, No Pre serve, 2-Dose Series ([place]) 08/29/2021,03/06/2021,02/13/2021 COVID-19, LNP-s, No Preserve , Ad-sucrose, Ages 12+ (Pfizer) 02/07/2022 COVID-19, MRNA-LNP, 23-24, P F, 30 MCG/0.3 mL, 12 YRS AND ABOVE, IM (PFIZER-Comirnaty) 12/15/2023 Covid-19, Mrna, Lnp-s, Pf, B ivalent, [...] No 03/12/2021 documented as of this encounter Plan of Treatment Upcoming Encounters Date Type Department Care Team (Late st Contact Info) Description 02/10/2024 2:00 PM EDT Imaging Radiology [facility] 1st [facility] [address] [place] [address] 02/10/2024 2:30 PM EDT [facility] [address] [place] [address] 02/18/2024 8:40 AM EDT Office Visit Family Practice 65 [facility] [address] [place] [address] Svetalna Jacobs DO [address] [place] [address] 06/22/2024 11:00 AM EDT [facility] [address] [place] [address] Dann Hancock PA-C 132 [facility] [place] [address] 07/19/2024 1:45 PM EDT Office Visit Urology, [facility] [address] [place] [address] Hayedn Johnson MD 27 [facility] [address] [place] [address] 09/08/2024 10:45 AM EST Office Visit Dermatology [facility] [address] [place] [address] Abdelrahman Silva MD 200 [facility] [place] [address] 09/29/2024 2:40 PM EST Office Visit Nephrology, [facility] [address] [place], [place] [address] Blake Becker MD [address] [place] [address] 09/30/2024 11:00 AM EST Nurse Only Ancillary 65 [facility] [place] [address] [place] [address] College, Nurse Annual Wellness Visit [address] [facility] [address] 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) 02/09/2024 10:16 AM EDT URORISK(R) DIAGNOSTIC PROFILE Lab Routine Renal stones 02/09/2024 10:16 AM EDT PTH Lab Routine Renal stones 02/09/2024 10:16 AM EDT RENAL FUNCTION PANEL Lab Routine Renal stones 02/09/2024 10:16 AM EDT URIC ACID Lab Routine Renal stones 02/09/2024 10:16 AM EDT Health Maintenance Due Date Last Done Comments [...] Additional history exists CKD PHOS USE SMARTSET 01361 10/16/202409/19, 01/28/2023, 01/26/2023, Additional history exists TSH 10/16/2024 10/16/2023, 010 12/2022, 06/20/2022, Additional history exists CKD HGB USE SMARTSET 50190 11/10/202402/08, 02/09/2024, 11/10/2023, Additional history exists DXA Scan 01/10/2026 01/11/2024, 07/19, 05/09/2015 DTaP,Tdap,and Td Vaccines (2 - Td or Tdap) 01/23/2026 01/24/2016 Pneumococcal Vaccine: 65+ Years Completed 06/06/2016, 01/26/2013 Zoster Vaccines Completed 06/23/2019, 02/18, 02/23/2018, Additional history exists Colonoscopy Discontinued 08/19/2019, 10/2018, 07/20/2018, Additional history exists Colorectal Cancer Screening Discontinued VITAMIN D LEVEL ONCE IN A LIFETIME-USE SMARTSET# 23118 Completed 11/13/2022, 05/07/2006 Influenza Vaccine (FLU shot) [...] this encounter Medical Devices Implanted Type Area Acquisition Cost Estimator Device Identifier Shelf Expiration Date Model / Serial / Lot Dbx 5cc [id number] - [id number] - [id number] Implanted:Qty : 1 on 01/08/2021 by Kuldeep Fisher DO at OR [facility] Tissue - Human Left: Spine Lumbar MUSCULOSKELETAL TRANSPLANT FND [id number] 06/18/2022 [id number] / [id number] / LOT NA Description:[id number] Implant Ifuse 3d 7x55 Mm - [id number] Implanted:Qty : 1 on 01/08/2021 by Kuldeep Fisher DO at OR [facility] Left: Spine Lumbar [employer] 09/05/2024 7055M-90 / / [id number] Implant Ifuse 3d 7x55 Mm - [id number] Implanted:Qty : 1 on 01/08/2021 by Kuldeep Fisher DO at OR [facility] Left: Spine Lumbar [employer] 03/29/2024 7055M-90 / / [id number] Ifuse Implant System 7.0 X 50mm Implant Implanted:Qty : 1 on 01/08/2021 by Kuldeep Fisher DO at OR [facility] Left: Spine Lumbar 05/11/2025 7050M-90 / / [id number] Implant Ifuse 3d 7x50 Mm - [id number] Implanted:Qty : 2 on 03/12/2021 by Kuldeep Fisher DO at OR [facility] Right: Pelvis [employer] 09/18/2025 7050M-90 / / [id number] Dbx 2.5cc [id number] - [id number] - [id number] Implanted:Qty : 1 on 03/12/2021 by Kuldeep Fisher DO at OR [facility] Right: Iliac MUSCULOSKELETAL TRANSPLANT FND [id number] 07/20/2022 [id number] / [id number] / LOT NA Implant Ifuse 3d 7x45 Mm - [id number] Implanted:Qty : 1 on 03/12/2021 by Kuldeep Fisher DO at OR [facility] Right: Pelvis [employer] 09/18/2025 7045M-90 / / [id number] documented as of this encounter Procedures Procedure Name Priority Date/Time Associated Diagnosis Comments DIFFERENTIAL, AUTOMATED Routine 02/09/2024 10:16 AM EDT Dizziness 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) CBC Routine 02/09/2024 10:16 AM EDT Dizziness 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) CBC Routine 02/09/2024 10:16 AM EDT Dizziness 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) documented in this encounter Results * (ABNORMAL) DIFFERENTIAL, AUTOMATED (02/09/2024 10:16 AM EDT) [facility] WBC 9.63 4.00 - 10.80 K/uL 02/09/2024 10:24 AM EDT [facility] 56-02 Neutrophils % 58.2 40.0 - 75.0 % 02/09/2024 10:24 AM EDT [facility] 56-02 Lymphocytes % 27.6 18.0 - 42.0 % 02/09/2024 10:24 AM EDT [facility] 56-02 Monocytes % 11.2(H) 1.0 - 11.0 % 02/09/2024 10:24 AM EDT [facility] 56-02 Eosinophils % 2.5 0.0 - 6.0 % 02/09/2024 10:24 AM EDT [facility] 56-02 Basophils % 0.5 0.0 - 2.0 % 02/09/2024 10:24 AM EDT [facility] 56-02 Absolute Neutrophils 5.60 1.80 - 7.70 K/uL 02/09/2024 10:24 AM EDT [facility] 56-02 Absolute Lymphocytes 2.66 1.00 - 4.80 K/ul 02/09/2024 10:24 AM EDT [facility] 56-02 Absolute Monocytes 1.08 0.00 - 1.10 K/uL 02/09/2024 10:24 AM EDT [facility] 56-02 Absolute Eosinophils 0.24 0.00 - 0.70 K/uL 02/09/2024 10:24 AM EDT [facility] 56-02 Absolute Basophils 0.05 0.00 - 0.20 K/uL 02/09/2024 10:24 AM EDT [facility] 56-02 Blood Venous blood specimen / Unknown Venipuncture / Unknown 02/09/2024 10:16 AM EDT 02/09/2024 10:17 AM EDT Svetlana Jacobs DO LAB BLOOD ORDERABLES [facility] [address] [place] [address] * CBC (02/09/2024 10:16 AM EDT) WBC 9.63 4.00 - 10.80 K/uL 02/09/2024 10:24 AM EDT [facility] 56-02 RBC 4.58 3.85 - 5.15 M/uL 02/09/2024 10:24 AM EDT [facility] 56 HGB 13.6 12.0 - 15.3 g/dL 02/09/2024 10:24 AM EDT [facility] 56 HCT 40.9 36.0 - 45.2 % 02/09/2024 10:24 AM EDT [facility] 56 MCV 89.3 81.5 - 97.5 fL 02/09/2024 10:24 AM EDT [facility] 56 MCH 29.7 27.0 - 34.0 pg 02/09/2024 10:24 AM EDT [address] MCHC 33.3 32.0 - 36.0 g/dL 02/09/2024 10:24 AM EDT [facility] 56 RDW 14.3 11.5 - 15.5 % 02/09/2024 10:24 AM EDT [facility] 56 PLT 275 140 - 400 K/uL 02/09/2024 10:24 AM EDT [address] MPV 9.5 6.6 - 11.1 fL 02/09/2024 10:24 AM EDT [facility] 56 Blood Venous blood specimen / Unknown Venipuncture / Unknown 02/09/2024 10:16 AM EDT 02/09/2024 10:17 AM EDT Svetlana Jacobs DO LAB BLOOD ORDERABLES Performing Organization Address City/State/[facility] Co de Phone Number [facility] 56 [address] [place] [address] documented in this encounter Visit Diagnoses Diagnosis Dizziness Dizziness and giddiness 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
--- OUTSIDE RECORDS SUMMARY | 2024-02-14 11:58 | External Medical Summary ---
Author Name Unknown Address Unknown Organization K09[facility] [place] [place] [address] Laboratory Report Ordering Provider Test Date Status COREY BRAVO 02/09/2024 10:16:40 Final Observation Date Value Abnormality Reference (Units ) Status WBC, Total 02/09/2024 10:16:40 9.63 4.00-10.8 0 (K/uL) Final RBC 02/09/2024 10:16:40 4.58 3.85-5.15 (M/uL) Final Hemoglobin 02/09/2024 10:16:40 13.6 12.0-15.3 (g/dL) Final HCT 02/09/2024 10:16:40 40.9 36.0-45.2 (%) Final MCV 02/09/2024 10:16:40 89.3 81.5-97.5 (fL) Final MCH 02/09/2024 10:16:40 29.7 27.0-34.0 (pg) Final MCHC 02/09/2024 10:16:40 33.3 32.0-36.0 (g/dL) Final RDW 02/09/2024 10:16:40 14.3 11.5-15.5 (%) Final Platelets 02/09/2024 10:16:40 275 140-400 (K /uL) Final MPV 02/09/2024 10:16:40 9.5 6.6-11.1 ( fL) Final Performing Location [facility] [place] [place] [address]
--- OUTSIDE RECORDS SUMMARY | 2024-02-14 11:58 | External Medical Summary ---
Author Name Unknown Address Unknown Organization K01:[facility] [place] [address] [facility] [address] Laboratory Report Ordering Provider Test Date Status COREY BRAVO 02/09/2024 10:16:40 Final Observation Date Value Abnormality Reference (Units ) Status Erythrocyte sedimentation rate by Photometric method 02/09/2024 10:16:40 6 <30 (mm/hour) Final Performing Location [facility] [place] [address] [facility] [address]
--- OUTSIDE RECORDS SUMMARY | 2024-02-14 11:58 | External Medical Summary | Summary of Care ---
Author Name Unknown Organization [facility] Address [address] [place] [address] Phone [phone] Care Team Providers Care Website Developer Name Role Phone Svetlana Jacobs DO Primary Care Provider Reason for Visit * Reason Onset Date Comments Appointment 02/04/2024 labs Test Results Lab 02/04/202402/03 Test Results 02/04/202402/04; 02/10 Encounter Details Date Type Department Care Team (Late st Contact Info) Description 02/04/2024 Telephone Family Practice 65 [facility] [place] [address] [place] [address] Svetlana Jacobs DO [address] [place] [address] Appointment (labs); Test Results Lab (02/03... Allergies Active Allergy Reactions Criticality Noted Date Comments Adhesive Tape Other (Please comment) Low 07/19/2019 Skin irritation Ibuprofen Bleeding High 09/03/2016 (NSAIDS) Other reaction(s): Bleeding Latex Rash High 01/25/2019 Other reaction(s): Rash Nickel High 12/16/2011 Rash/blisters if terminal operations supervisor exposure Other reaction(s): SEVERE DERMATITIS Other reaction(s): [...] Tablet Sublingual (Nitrostat)Indicati ons:Coronary artery disease involving [place] coronary artery of [place] heart without angina pectoris,Dyslipidem ia, goal LDL [...] thrombosis) 02/08/2020 Coronary artery disease invo lving [place] coronary artery of [place] heart without angina pectoris 02/08/2020 Failed back [...] program 02/23/2018 05/21/2020 Overview: DO NOT DELETE [facility] DETECT Study: Project # [id number], Social Services Analyst: Yoel Sung, PhD. SUMMARY: Goal: Establish test [...] contact study staff at ; after hours Social Services Analyst via the [facility] ripsaw operator . Please contact study team before resolving/deleting from patients problem list. Study phone number: [phone]. Diagnosis changed due to Research Module. Go to Snapshot for study details. Encounter for examination fo r normal comparison and control in clinical research program 02/23/2018 06/19/2022 Overview: DO NOT DELETE - [facility] Study: Project # [id number], Social Services Analyst: Ranjeet Villa, MS, MPH. SUMMARY: Goal: Establish [...] contact study staff at ; after hours Social Services Analyst via the [facility] ripsaw operator . - Please contact study team before resolving/deleting from patients problem list. Study phone number: [phone]. Diagnosis changed due to Research Module. Go to Snapshot for study details. Preop examination 03/29/2016 09/30/2016 Abnormal electrocardiogram 03/29/201611/07/2018 MEDICATION USE AGREEMENT 05/03/2015 Overview: Signed 05/03/2015 Charanjit Spann MD [facility] Encounter for long-term (cur rent) use of medications 12/31/2011 02/07/2020 Overview: ICD-10 update of inactive term Postlaminectomy syndrome 12/16/201107/2017 Lumbago 12/16/2011 07/28/2017 Mixed dyslipidemia 10/30/2005 9 Overview: Per Lipid Taxonomy. documented as of this encounter (statuses as of 02/11/2024) Immunizations Name Administration Dates Next Due COVID-19 mRNA, LNP-s, No Pre serve, 2-Dose Series ([place]) 08/29/2021,03/06/2021,02/13/2021 COVID-19, LNP-s, No Preserve , Ad-sucrose, Ages 12+ (Pfizer) 02/07/2022 COVID-19, MRNA-LNP, 23-24, P F, 30 MCG/0.3 mL, 12 YRS AND ABOVE, IM (Chi2gel-Comirnat) 12/15/2023 Covid-19, Mrna, Lnp-s, Pf, B ivalent, [...] Potassium supplements in the past but her Handkerchief Cutter stopped them approx 1 year ago due [...] for results of lab work drawn at [facility] on . Also asking about results of A1c drawn that date. * Telephone Encounter - Radha Rodriguez OSA - 02/04/2024 4:34 PM EDT Pt calling to get results of recent labs that were done Please call her at [phone] documented in this encounter Plan of Treatment Upcoming Encounters Date Type Department Care Team (Late st Contact Info) Description 02/18/2024 8:40 AM EDT Office Visit Family Practice 65 [facility] [place] [address] [place] [address] Svetlana Jacobs DO 293 [place] [address] 06/22/2024 11:00 AM EDT Office Visit Cardiology, [facility] [address] [facility] [place] [address] Dann Hancock, [place] [facility] [place] [address] 07/19/2024 1:45 PM EDT Office Visit Urology, [facility] [address] [facility] [place] [address] Hayden Johnson MD 27 [facility] [address] [place] [address] 09/08/2024 10:45 AM EST Office Visit Dermatology [facility] [address] [place] [address] Abdelrahman Silva MD [address] [facility] [place] [address] 09/29/2024 2:40 PM EST Office Visit Nephrology, [facility] [address] [facility] [place], [place] [address] Blake Becker MD [address] [facility] [place], [place] [address] 09/30/2024 11:00 AM EST Nurse Only Ancillary 65 [facility] [address] [facility], [place] [address] College, Nurse Annual Wellness Visit 65 [facility] [address] [facility], [place] [address] Health Maintenance Due Date Last Done Comments [...] Additional history exists CKD HGB USE SMARTSET 88210 02/08/202502/08, 02/09/2024, 11/10/2023, Additional history exists CKD PHOS USE SMARTSET 87380 02/08/2025 042 12/2023, 10/16/2023, 01/28/2023, Additional history exists DXA Scan 01/10/2026 01/11/2024, 07/19, 05/09/2015 DTaP,Tdap,and Td Vaccines (2 - Td or Tdap) 01/23/2026 01/24/2016 Pneumococcal Vaccine: 65+ Years Completed 06/06/2016, 01/26/2013 Zoster Vaccines Completed 06/23/2019, 02/18, 02/23/2018, Additional history exists Colonoscopy Discontinued 08/19/2019, 10/2018, 07/20/2018, Additional history exists Colorectal Cancer Screening Discontinued VITAMIN D LEVEL ONCE IN A LIFETIME-USE SMARTSET# 26930 Completed 11/13/2022, 05/07/2006 Influenza Vaccine (FLU shot) [...] this encounter Medical Devices Implanted Type Area Chute Operator Device Identifier Shelf Expiration Date Model / Serial / Lot Dbx 5cc [id number] - [id number] - [id number] Implanted:Qty : 1 on 01/08/2021 by Kuldeep Fisher DO at OR [facility] Tissue - Human Left: Spine Lumbar MUSCULOSKELETAL TRANSPLANT FND [id number] 06/18/2022 [id number] / [id number] / LOT NA Description:[id number] Implant Ifuse 3d 7x55 Mm - [id number] Implanted:Qty : 1 on 01/08/2021 by Kuldeep Fisher DO at OR [facility] Left: Spine Lumbar [employer] 09/05/2024 7055M-90 / / [id number] Implant Ifuse 3d 7x55 Mm - [id number] Implanted:Qty : 1 on 01/08/2021 by Kuldeep Fisher DO at OR [facility] Left: Spine Lumbar [employer] 03/29/2024 7055M-90 / / [id number] Ifuse Implant System 7.0 X 50mm Implant Implanted:Qty : 1 on 01/08/2021 by Kuldeep Fisher DO at OR [facility] Left: Spine Lumbar 05/11/2025 7050M-90 / / [id number] Implant Ifuse 3d 7x50 Mm - [id number] Implanted:Qty : 2 on 03/12/2021 by Kuldeep Fisher DO at OR [facility] Right: Pelvis [employer] 09/18/2025 7050M-90 / / [id number] Dbx 2.5cc [id number] - [id number] - [id number] Implanted:Qty : 1 on 03/12/2021 by Kuldeep Fisher DO at OR [facility] Right: Iliac MUSCULOSKELETAL TRANSPLANT FND [id number] 07/20/2022 [id number] / [id number] / LOT NA Implant Ifuse 3d 7x45 Mm - [id number] Implanted:Qty : 1 on 03/12/2021 by Kuldeep Fisher DO at OR [facility] Right: Pelvis [employer] 09/18/2025 7045M-90 / / [id number] documented as of this encounter Advance Directives [...] jordan occurred with: Not Discussed Care Teams Website Developer Relationship Specialty Start Date End Date Svetlana Jacobs DO [address] [facility] [place] [address] PCP - General Family Medicine 10/01/23 documented as of this encounter
--- OUTSIDE RECORDS SUMMARY | 2024-02-14 11:58 | External Medical Summary | Summary of Care ---
Author Name Unknown Organization [facility] Address [address] [place] [address] Phone [phone] Care Team Providers Care Cylinder Valve Repairer Name Role Phone Svetlana Jacobs DO Primary Care Provider [phone] Reason for Visit * Reason Onset Date Comments Test Results 02/04/2024 Encounter Details Date Type Department Care Team (Late st Contact Info) Description 02/04/2024 Telephone Family Practice [address] [place] [address] [place] [address] Svetlana Jacobs DO [address] [place] [address] Test Results Allergies Active Allergy Reactions Criticality Noted Date Comments Adhesive Tape Other (Please comment) Low 07/19/2019 Skin irritation Ibuprofen Bleeding High 09/03/2016 (NSAIDS) Other reaction(s): Bleeding Latex Rash High 01/25/2019 Other reaction(s): Rash Nickel High 12/16/2011 Rash/blisters if senior care exposure Other reaction(s): SEVERE DERMATITIS Other reaction(s): CD - Contact dermatitis Nsaids High 07/25/2015 Other reaction(s): HX OF BLEEDING ULCERS-TO AVOID Oxycodone Neuro complications (Please comment) High 02/19/2021 Opioid abuse Other reaction(s): neuro complications opioid abuse-recent overdose 01/2021 documented as of this encounter (statuses as of 02/04/2024) Medications Medication Sig Dispensed Refills Start Date [...] Tablet Sublingual (Nitrostat)Indicati ons:Coronary artery disease involving twenty-nine palms coronary artery of twenty[place]nine [place] heart without angina pectoris,Dyslipidem ia, goal LDL [...] as of this encounter (statuses as of 02/04/2024) Active Problems Problem Noted Date Diagnosed Date [...] thrombosis) 02/08/2020 Coronary artery disease invo lving twenty-nine palms coronary artery of twenty[place]nine [place] heart without angina pectoris 02/08/2020 Failed back [...] as of this encounter (statuses as of 02/04/2024) Resolved Problems Problem Noted Date Diagnosed Date [...] [facility] DETECT Study: Project # [id number], Jewel Waxer: Yoel Sung, PhD. SUMMARY: Goal: Establish test [...] contact study staff at ; after hours Jewel Waxer via the [facility] sorting grapple operator . Please contact study team before resolving/deleting from patients problem list. Study phone number: [phone]. Diagnosis changed due to Research Module. Go to Snapshot for study details. Encounter for examination fo r normal comparison and control in clinical research program 02/23/2018 06/19/2022 Overview: DO NOT DELETE - [facility] Study: Project # [id number], Jewel Waxer: Ranjeet Villa, MS, MPH. SUMMARY: Goal: Establish [...] contact study staff at ; after hours Jewel Waxer via the [facility] sorting grapple operator . - Please contact study team before resolving/deleting from patients problem list. Study phone number: [phone]. Diagnosis changed due to Research Module. Go to Snapshot for study details. Preop examination 03/29/2016 09/30/2016 Abnormal electrocardiogram 03/29/2016 1 11/07/2018 MEDICATION USE AGREEMENT 05/03/2015 Overview: Signed 05/03/2015 Charanjit Spann MD [facility] [address] [address] Encounter for long-term (cur rent) use of medications 12/31/2011 02/07/2020 Overview: ICD-10 update of inactive term Postlaminectomy syndrome 12/16/201107/2017 Lumbago 12/16/2011 07/28/2017 Mixed dyslipidemia 10/30/2005 9 Overview: Per Lipid Taxonomy. documented as of this encounter (statuses as of 02/04/2024) Immunizations Name Administration Dates Next Due COVID-19 mRNA, LNP-s, No Pre serve, 2-Dose Series ([employer]) 08/29/2021,03/06/2021,02/13/2021 COVID-19, LNP-s, No Preserve , Ad-sucrose, [...] encounter Miscellaneous Notes * Telephone Encounter - Elba Nichols LPN - 02/04/2024 2:08 PM EDT Patient is aware and will comply. Thank you * Telephone Encounter - Svetlana Jacobs DO - 02/04/2024 8:02 AM EDT Radiology is recommending additional imaging of pt's left breast. Orders in. She should be sure to schedule. documented in this encounter Plan of Treatment Upcoming Encounters Date Type Department Care Team (Late st Contact Info) Description 02/10/2024 2:00 PM EDT Imaging Radiology [facility] [address] [facility] [place] [address] 02/10/2024 2:30 PM EDT Imaging Radiology [facility] 132 [facility] [place] [address] 02/18/2024 8:40 AM EDT Office Visit Family Practice [address] [place] [address] [facility] [place] [address] Svetlana Jacobs DO [facility] [address] 06/22/2024 11:00 AM EDT Office Visit Cardiology, [facility] [address] [facility] [place] [address] Dann Hancock PA-C 132 [facility] [place] [address] 07/19/2024 1:45 PM EDT Office Visit Urology, [facility] [address] [facility] [place] [address] Hayden Johnson MD 27 [facility] [address] [place] [address] 09/08/2024 10:45 AM EST Office Visit Dermatology [facility] 200 [facility] [place] [address] Abdelrahman Silva MD 200 [facility] [place] [address] 09/29/2024 2:40 PM EST Office Visit Nephrology, [facility] 200 [facility] [place] [address] Blake Becker MD 200 [facility] [place] [address] 09/30/2024 11:00 AM EST Nurse Only Ancillary 65 [facility] 293 [facility] [place] [address] College, Nurse Annual Wellness Visit [address], [place] [address] Scheduled Orders Name Type Priority Associated Diagnoses Orde r Schedule US BREAST LIMITED LEFT Medical Imaging Routine Abnormal mammogram Expected: 02/04/2024, Expires: 03/05/2025 MAMMOGRAM DIAGNOSTIC CLAY LEFT Medical Imaging Routine Abnormal mammogram Expected: 02/04/2024, Expires: 03/05/2025 Health Maintenance Due Date Last Done Comments [...] Additional history exists CKD PHOS USE SMARTSET 82668 10/16/202409/19, 01/28/2023, 01/26/2023, Additional history exists TSH 10/16/2024 10/16/2023, 12/2022, 06/20/2022, Additional history exists CKD HGB USE SMARTSET 61282 11/10/202411/10, 10/16/2023, 06/26/2023, Additional history exists DXA Scan 01/10/2026 01/11/2024, 07/19, 05/09/2015 DTaP,Tdap,and Td Vaccines (2 - Td or Tdap) 01/23/2026 01/24/2016 Pneumococcal Vaccine: 65+ Years Completed 06/06/2016, 01/26/2013 Zoster Vaccines Completed 06/23/2019, 02/18, 02/23/2018, Additional history exists Colonoscopy Discontinued 08/19/2019, 10/2018, 07/20/2018, Additional history exists Colorectal Cancer Screening Discontinued VITAMIN D LEVEL ONCE IN A LIFETIME-USE SMARTSET# [id number] Completed 11/13/2022, 05/07/2006 Influenza Vaccine (FLU shot) [...] this encounter Medical Devices Implanted Type Area Associate Professor Of Musicology Device Identifier Shelf Expiration Date Model / Serial / Lot Dbx 5cc [id number] - [id number] - [id number] Implanted:Qty : 1 on 01/08/2021 by Kuldeep Fisher, at OR [facility] Tissue - Human Left: Spine Lumbar MUSC[employer]KELETAL TRANSPLANT FND [id number] 06/18/2022 [id number] / [id number] / LOT NA Description:[id number] Implant Ifuse 3d 7x55 Mm - [id number] Implanted:Qty : 1 on 01/08/2021 by Kuldeep Fisher DO at [facility] Left: Spine Lumbar [employer] 09/05/2024 7055M-90 / / [id number] Implant Ifuse 3d 7x55 Mm - [id number] Implanted:Qty : 1 on 01/08/2021 by Kuldeep Fisher DO at [facility] Left: Spine Lumbar [employer] 03/29/2024 7055M-90 / / [id number] Ifuse Implant System 7.0 X 50mm Implant Implanted:Qty : 1 on 01/08/2021 by Kuldeep Fisher DO OR [facility] Left: Spine Lumbar 05/11/2025 7050M-90 / / [id number] Implant Ifuse 3d 7x50 Mm - [id number] Implanted:Qty : 2 on 03/12/2021 by Kuldeep Fisher DO OR [facility] Right: Pelvis [employer] 09/18/2025 7050M-90 / / [id number] Dbx 2.5cc [id number] - [id number] - [id number] Implanted:Qty : 1 on 03/12/2021 by Kuldeep Fisher DO OR [facility] Right: Iliac [employer]KELETAL TRANSPL[employer] FND [id number] 07/20/2022 [id number] / [id number] / LOT NA Implant Ifuse 3d 7x45 Mm - [id number] Implanted:Qty : 1 on 03/12/2021 by Kuldeep Fisher DO at OR [facility] Right: Pelvis [employer] 09/18/2025 7045M-90 / / [id number] documented as of this encounter Visit Diagnoses Diagnosis Abnormal mammogram- Primary Abnormal mammogram, unspecified documented in this encounter Advance Directives Latest [...] jordan occurred with: Not Discussed Care Teams Cylinder Valve Repairer Relationship Specialty Start Date End Date Svetlana Jacobs DO [address] [place] [address] PCP - General Family Medicine 10/01/23 documented as of this encounter
--- OUTSIDE RECORDS SUMMARY | 2024-02-14 11:58 | External Medical Summary | Summary of Care ---
Author Name Unknown Organization [facility] Address [address] [place] [address] Phone [phone] Care Team Providers Care Cage Maker Machine Name Role Phone Svetlana Nicole DO Primary Care Provider [phone] Reason for Visit * Reason Comments Medication Refill Encounter Details Date Type Department Care Team (Late st Contact Info) Description 01/30/2024 Refill Family Practice [address] [place] [address] [place] [address] Svetlana Nicole DO [address] [place] [address] Chronic diastolic congestive heart failure (HCC) Allergies Active Allergy Reactions Criticality Noted Date Comments Adhesive Tape Other (Please comment) Low 07/19/2019 Skin irritation Ibuprofen Bleeding High 09/03/2016 (NSAIDS) Other reaction(s): Bleeding Latex Rash High 01/25/2019 Other reaction(s): Rash Nickel High 12/16/2011 Rash/blisters if longterm exposure Other reaction(s): SEVERE DERMATITIS Other reaction(s): CD - Contact dermatitis Nsaids High 07/25/2015 Other reaction(s): HX OF BLEEDING ULCERS-TO AVOID Oxycodone Neuro complications (Please comment) High 02/19/2021 Opioid abuse Other reaction(s): neuro complications opioid abuse-recent overdose 01/2021 documented as of this encounter (statuses as of 02/01/2024) Medications Medication Sig Dispensed Refills Start Date [...] by mouth in the morning. Help with BM's/constipatio n-Stephanie. 0 Active Promethazine HCl 25 MG Oral [...] Tablet Sublingual (Nitrostat)Indicati ons:Coronary artery disease involving [place] coronary artery of [place] heart without angina pectoris,Dyslipidem ia, goal LDL [...] MOUTH AT BEDTIME 200 Tablet 0 12/30/2023 5 Active Atorvastatin Calcium 40 MG Oral Tablet (Lipitor) TAKE 1 TABLET BY MOUTH EVERY DAY 100 Tablet 2 01/13/2024 Active traMADol HCl 50 MG Oral Tablet (Ultram) 1 Tablet every 8 hours as needed. 0 01/12/2024 Active Furosemide 20 MG Oral Tablet (Lasix)Indications: Chronic diastolic congestive heart failure (HCC) TAKE TWO TABLETS BY MOUTH EVERY MORNING 200 Tablet 1 02/01/2024 Active Furosemide 20 MG Oral Tablet (Lasix)Indications: Chronic diastolic congestive heart failure (HCC) TAKE TWO TABLETS BY MOUTH EVERY MORNING 200 Tablet 3 11/05/2022 4 Discontinu ed(Refill) documented as of this encounter (statuses as of 02/01/2024) Active Problems Problem Noted Date Diagnosed Date [...] thrombosis) 02/08/2020 Coronary artery disease invo lving [place] coronary artery of [place] heart without angina pectoris 02/08/2020 Failed back [...] as of this encounter (statuses as of 02/01/2024) Resolved Problems Problem Noted Date Diagnosed Date Resolved Date Sacroiliitis 10/22/2021 10/22/2021 Morbid obesity, unspecified obesity type 10/22/2021 10/28/2023 Atrial fibrillation 10/22/2021 10/22/19 Opioid abuse 02/19/2021 10/28/2023 Unspecified mood (affective) disorder 08/21/2019 02/07/2020 Prediabetes 02/28/2019 08/02/2020 Overview: Per Prediabetes protocol #1 Encounter for examination fo r normal comparison and control in clinical research program 02/23/2018 05/21/2020 Overview: DO NOT DELETE [facility] DETECT Study: Project # [id number], Retail Sales Vitamin Consultant: Yoel Sung, PhD. SUMMARY: Goal: Establish test [...] contact study staff at ; after hours Retail Sales Vitamin Consultant via the [facility] bending frame operator . Please contact study team before resolving/deleting from patients problem list. Study phone number: [phone]. Diagnosis changed due to Research Module. Go to Snapshot for study details. Encounter for examination fo r normal comparison and control in clinical research program 02/23/2018 06/19/2022 Overview: DO NOT DELETE [facility] Study: Project # [id number], Retail Sales Vitamin Consultant: Ranjeet Villa, MS, MPH. SUMMARY: Goal: Establish [...] contact study staff at ; after hours Retail Sales Vitamin Consultant via the [facility] bending frame operator . - Please contact study team before resolving/deleting from patients problem list. Study phone number: [phone]. Diagnosis changed due to Research Module. Go to Snapshot for study details. Preop examination 03/29/2016 09/30/2016 Abnormal electrocardiogram 03/29/2016 1 11/07/2018 MEDICATION USE AGREEMENT 05/03/2015 Overview: Signed 05/03/[address] [facility]. Encounter for long-term (cur rent) use of medications 12/31/2011 02/07/2020 Overview: ICD-10 update of inactive term Postlaminectomy syndrome 12/16/201107/2017 Lumbago 12/16/2011 07/28/2017 Mixed dyslipidemia 10/30/2005 9 Overview: Per Lipid Taxonomy. documented as of this encounter (statuses as of 02/01/2024) Immunizations Name Administration Dates Next Due COVID-19 mRNA, LNP-s, No Pre serve, 2-Dose Series ([employer]) 08/29/2021,03/06/2021,02/13/2021 COVID-19, LNP-s, No Preserve , Ad-sucrose, [...] encounter Miscellaneous Notes * Telephone Encounter - Mandeep Weber [facility] - 02/01/2024 11:41 AM EDT Signed Prescriptions: Disp Refills Furosemide 20 MG Oral Tablet (Lasix) 200 Ta*1 Sig: TAKE TWO TABLETS BY MOUTH EVERY MORNINGAuthorizing Provider: SVETLANA NICOLE User: MANDEEP WEBER T documented in this encounter Plan of Treatment Upcoming Encounters Date Type Department Care Team (Late st Contact Info) Description 02/03/2024 1:45 PM EDT Imaging Radiology [facility] 1st [facility] 132 [facility] [place] [address] 02/18/2024 8:40 AM EDT Office Visit Family Practice 65 [facility] [address] [place] [address] Svetlana Nicole, [address] [place] [address] 06/22/2024 11:00 AM EDT Office Visit Cardiology, [facility] 132 [facility] [place] [address] Dann Hancock PA-C [facility] [place] [address] 07/19/2024 1:45 PM EDT Office Visit Urology, [facility] 132 [facility] [place] [address] Hayden Johnson MD 27 [facility] [address] [place] [address] 09/08/2024 10:45 AM EST Office Visit Dermatology [facility] 200 [place] [address] Abdelrahman Silva MD 200 [facility] [place], [place] [address] 09/29/2024 2:40 PM EST Office Visit Nephrology, [facility] 200 [facility] [place], [place] [address] Blake Becker MD 200 [facility] [place], [place] [address] 09/30/2024 11:00 AM EST Nurse Only Ancillary 65 [facility] 293 [place] [address] College, Nurse Annual Wellness Visit 65 [facility] 293 [place] [address] Health Maintenance Due Date Last Done Comments [...] Additional history exists CKD PHOS USE SMARTSET 51107 10/16/202409/19, 01/28/2023, 01/26/2023, Additional history exists TSH 10/16/2024 10/16/2023, 0 12/2022, 06/20/2022, Additional history exists CKD HGB USE SMARTSET 44253 11/10/202411/10, 10/16/2023, 06/26/2023, Additional history exists DXA Scan 01/10/2026 01/11/2024, 07/19, 05/09/2015 DTaP,Tdap,and Td Vaccines (2 - Td or Tdap) 01/23/2026 01/24/2016 Pneumococcal Vaccine: 65+ Years Completed 06/06/2016, 01/26/2013 Zoster Vaccines Completed 06/23/2019, 02/18, 02/23/2018, Additional history exists Colonoscopy Discontinued 08/19/2019, 10/2018, 07/20/2018, Additional history exists Colorectal Cancer Screening Discontinued VITAMIN D LEVEL ONCE IN A LIFETIME-USE SMARTSET# 18487 Completed 11/13/2022, 05/07/2006 Influenza Vaccine (FLU shot) [...] this encounter Medical Devices Implanted Type Area Interactive Graphic Designer Device Identifier Shelf Expiration Date Model / Serial / Lot Dbx 5cc [id number] - [id number] - [id number] Implanted:Qty : 1 on 01/08/2021 by Kuldeep Fisher DO at OR [facility] Tissue - Human Left: Spine Lumbar [employer]CULOSKELETAL TRANSPL[employer] FND [id number] 06/18/2022 [id number] / [id number] / LOT NA Description:[id number] Implant Ifuse 3d 7x55 Mm - [id number] Implanted:Qty : 1 on 01/08/2021 by Kuldeep Fisher DO at OR [facility] Left: Spine Lumbar [employer] 09/05/2024 7055M-90 / / [id number] Implant Ifuse 3d 7x55 Mm - [id number] Implanted:Qty : 1 on 01/08/2021 by Kuldeep Fisher DO at OR [facility] Left: Spine Lumbar [employer] 03/29/2024 7055M-90 / / [id number] Ifuse Implant System 7.0 X 50mm Implant Implanted:Qty : 1 on 01/08/2021 by Kuldeep Fisher DO at OR [facility] Left: Spine Lumbar 05/11/2025 7050M-90 / / [id number] Implant Ifuse 3d 7x50 Mm - [id number] Implanted:Qty : 2 on 03/12/2021 by Kuldeep Fisher DO at OR [facility] Right: Pelvis [employer] 09/18/2025 7050M-90 / / [id number] Dbx 2.5cc 156111 - [id number] - [id number] Implanted:Qty : 1 on 03/12/2021 by Kuldeep Fisher DO at OR [facility] Right: Iliac MUSCULOSKELETAL TRANSPLANT FND [id number] 07/20/2022 [id number] / [id number] / LOT NA Implant Ifuse 3d 7x45 Mm - [id number] Implanted:Qty : 1 on 03/12/2021 by Kuldeep Fisher DO at OR [facility] Right: Pelvis [employer] 09/18/2025 7045M-90 / / [id number] documented as of this encounter Visit Diagnoses Diagnosis Chronic diastolic congestive heart failure (HCC) Chronic diastolic heart failure documented in this encounter Advance Directives Latest [...] jordan occurred with: Not Discussed Care Teams Cage Maker Machine Relationship Specialty Start Date End Date Svetlana Nicole DO [facility] [place] [address] PCP - General Family Medicine 10/01/23 documented as of this encounter
--- OUTSIDE RECORDS SUMMARY | 2024-02-14 11:58 | External Medical Summary ---
Author Name Unknown Address Unknown Organization K01:[facility]ATORY [facility] - [address] [facility] [address] Laboratory Report Ordering Provider Test Date Status NICK FREITAS 02/09/2024 10:16:40 Final Observation Date Value Abnormality Reference (Units ) Status Uric Acid 02/09/2024 10:16:40 4.3 2.4-5.7 (m g/dL) Final Performing Location LABORATORY C - [address] [facility] [address]
--- OUTSIDE RECORDS SUMMARY | 2024-02-14 11:58 | External Medical Summary | Summary of Care ---
Author Name Unknown Organization [facility] Address [address] [place] [address] Phone [phone] Care Team Providers Care Remote Sensing Engineer Name Role Phone Svetlana Jacobs DO Primary Care Provider [phone] Reason for Visit * Reason Onset Date Comments Appointment 02/04/2024 labs Test Results Lab 02/04/202402/03 Test Results 02/04/202402/04 Encounter Details Date Type Department Care Team (Late st Contact Info) Description 02/04/2024 Telephone Family Practice 65 [facility] [place] [address] [place] [phone] Svetlana Jacobs DO [address] [place], [place] [phone] Appointment (labs); Test Results Lab (02/03... Allergies Active Allergy Reactions Criticality Noted Date Comments Adhesive Tape Other (Please comment) Low 07/19/2019 Skin irritation Ibuprofen Bleeding High 09/03/2016 (NSAIDS) Other reaction(s): Bleeding Latex Rash High 01/25/2019 Other reaction(s): Rash Nickel High 12/16/2011 Rash/blisters if half-way exposure Other reaction(s): SEVERE DERMATITIS Other reaction(s): CD - Contact dermatitis Nsaids High 07/25/2015 Other reaction(s): HX OF BLEEDING ULCERS-TO AVOID Oxycodone Neuro complications (Please comment) High 02/19/2021 Opioid abuse Other reaction(s): neuro complications opioid abuse-recent overdose 01/2021 documented as of this encounter (statuses as of 02/08/2024) Medications Medication Sig Dispensed Refills Start Date [...] Tablet Sublingual (Nitrostat)Indicati ons:Coronary artery disease involving egegik coronary artery of egegik heart without angina pectoris,Dyslipidem ia, goal LDL [...] as of this encounter (statuses as of 02/08/2024) Active Problems Problem Noted Date Diagnosed Date [...] thrombosis) 02/08/2020 Coronary artery disease invo lving egegik coronary artery of egegik heart without angina pectoris 02/08/2020 Failed back [...] as of this encounter (statuses as of 02/08/2024) Resolved Problems Problem Noted Date Diagnosed Date Resolved Date Sacroiliitis 10/22/2021 10/22/2021 Morbid obesity, unspecified obesity type 10/22/2021 10/28/2023 Atrial fibrillation 10/22/2021 10/22/19 Opioid abuse 02/19/2021 10/28/2023 Unspecified mood (affective) disorder 08/21/2019 02/07/2020 Prediabetes 02/28/2019 08/02/2020 Overview: Per Prediabetes protocol #1 Encounter for examination fo r normal comparison and control in clinical research program 02/23/2018 05/21/2020 Overview: DO NOT DELETE [facility] DETECT Study: Project # [id number], Senior Recruiter: Yoel Sung, PhD. SUMMARY: Goal: Establish test [...] contact study staff at ; after hours Senior Recruiter via the [facility] bulk sealer operator . Please contact study team before resolving/deleting from patients problem list. Study phone number: [phone]. Diagnosis changed due to Research Module. Go to Snapshot for study details. Encounter for examination fo r normal comparison and control in clinical research program 02/23/2018 06/19/2022 Overview: DO NOT DELETE - [facility] Study: Project # [id number], Senior Recruiter: Ranjeet Villa, MS, MPH. SUMMARY: Goal: Establish [...] contact study staff at ; after hours Senior Recruiter via the [facility] bulk sealer operator . - Please contact study team before resolving/deleting from patients problem list. Study phone number: [phone]. Diagnosis changed due to Research Module. Go to Snapshot for study details. Preop examination 03/29/2016 09/30/2016 Abnormal electrocardiogram 03/29/201611/07/2018 MEDICATION USE AGREEMENT 05/03/2015 Overview: Signed 05/03/2015 Charanjit Spann MD [facility] Encounter for long-term (cur rent) use of medications 12/31/2011 02/07/2020 Overview: ICD-10 update of inactive term Postlaminectomy syndrome 12/16/201107/2017 Lumbago 12/16/2011 07/28/2017 Mixed dyslipidemia 10/30/2005 9 Overview: Per Lipid Taxonomy. documented as of this encounter (statuses as of 02/08/2024) Immunizations Name Administration Dates Next Due COVID-19 mRNA, LNP-s, No Pre serve, 2-Dose Series ([employer]) 08/29/2021,03/06/2021,02/13/2021 COVID-19, LNP-s, No Preserve , Ad-sucrose, Ages 12+ (Pfizer) 02/07/2022 COVID-19, MRNA-LNP, 23-24, P F, 30 MCG/0.3 mL, 12 YRS AND ABOVE, IM (TDX-Comirnat) 12/15/2023 Covid-19, Mrna, Lnp-s, Pf, B ivalent, [...] Potassium supplements in the past but her Client Development Manager stopped them approx 1 year ago due [...] for results of lab work drawn at [facility] on . Also asking about results of A1c drawn that date. * Telephone Encounter - Radha Rodriguez OSA - 02/04/2024 4:34 PM EDT Pt calling to get results of recent labs that were done Please call her at [phone] documented in this encounter Plan of Treatment Upcoming Encounters Date Type Department Care Team (Late st Contact Info) Description 02/10/2024 2:00 PM EDT Imaging Radiology [facility] [address] [place] [address] 02/10/2024 2:30 PM EDT Imaging Radiology [place] [address] [facility] [place] [address] 02/18/2024 8:40 AM EDT Office Visit Family Practice 65 [facility] [address] [facility] [place] [address] Svetlana Jacobs DO 293 [place] [address] 06/22/2024 11:00 AM EDT Office Visit Cardiology, [facility] [address] [facility] [place] [address] Dann Hancock PA-C 132 [place] [address] 07/19/2024 1:45 PM EDT Office Visit Urology, [facility] [address] [facility] [place] [address] Hayden Johnson MD 27 [facility] [address] [place] [address] 09/08/2024 10:45 AM EST Office Visit Dermatology [facility] 200 [facility] [place] [address] Abdelrahman Silva MD 200 [facility] [place] [address] 09/29/2024 2:40 PM EST Office Visit Nephrology, [facility] 200 [facility] [place] [address] Blake Becker MD 200 [facility] [place] [address] 09/30/2024 11:00 AM EST Nurse Only Ancillary 65 [facility] 293 [facility], [place] [address] College, Nurse Annual Wellness Visit 65 [facility] [address] [facility], [place] [address] Health Maintenance Due Date Last Done Comments [...] Additional history exists CKD PHOS USE SMARTSET 69490 10/16/202409/19, 01/28/2023, 01/26/2023, Additional history exists TSH 10/16/2024 10/16/2023, 12/2022, 06/20/2022, Additional history exists CKD HGB USE SMARTSET 76861 11/10/202411/10, 10/16/2023, 06/26/2023, Additional history exists DXA Scan 01/10/2026 01/11/2024, 07/19, 05/09/2015 DTaP,Tdap,and Td Vaccines (2 - Td or Tdap) 01/23/2026 01/24/2016 Pneumococcal Vaccine: 65+ Years Completed 06/06/2016, 01/26/2013 Zoster Vaccines Completed 06/23/2019, 02/18, 02/23/2018, Additional history exists Colonoscopy Discontinued 08/19/2019, 10/2018, 07/20/2018, Additional history exists Colorectal Cancer Screening Discontinued VITAMIN D LEVEL ONCE IN A LIFETIME-USE SMARTSET# 54685 Completed 11/13/2022, 05/07/2006 Influenza Vaccine (FLU shot) [...] this encounter Medical Devices Implanted Type Area Commercial Glazier Device Identifier Shelf Expiration Date Model / Serial / Lot Dbx 5cc [id number] - [id number] - [id number] Implanted:Qty : 1 on 01/08/2021 by Kuldeep Fisher DO at OR [facility] Tissue - Human Left: Spine Lumbar MUSCULOSKELETAL TRANSPLANT FND [id number] 06/18/2022 [id number] / [id number] / LOT NA Description:[id number] Implant Ifuse 3d 7x55 Mm - [id number] Implanted:Qty : 1 on 01/08/2021 by Kuldeep Fisher DO at OR [facility] Left: Spine Lumbar [employer] 09/05/2024 7055M-90 / / [id number] Implant Ifuse 3d 7x55 Mm - [id number] Implanted:Qty : 1 on 01/08/2021 by Kuldeep Fisher DO at OR [facility] Left: Spine Lumbar [employer] 03/29/2024 7055M-90 / / [id number] Ifuse Implant System 7.0 X 50mm Implant Implanted:Qty : 1 on 01/08/2021 by Kuldeep Fisher DO at OR [facility] Left: Spine Lumbar 05/11/2025 7050M-90 / / [id number] Implant Ifuse 3d 7x50 Mm - [id number] Implanted:Qty : 2 on 03/12/2021 by Kuldeep Fisher DO at OR [facility] Right: Pelvis [employer] 09/18/2025 7050M-90 / / [id number] Dbx 2.5cc [id number] - [id number] - [id number] Implanted:Qty : 1 on 03/12/2021 by Kuldeep Fisher DO at OR [facility] Right: Iliac MUSCULOSKELETAL TRANSPLANT FND [id number] 07/20/2022 [id number] / [id number] / LOT NA Implant Ifuse 3d 7x45 Mm - [id number] Implanted:Qty : 1 on 03/12/2021 by Kuldeep Fisher DO at OR [facility] Right: Pelvis [employer] 09/18/2025 7045M-90 / / [id number] documented as of this encounter Advance Directives [...] jordan occurred with: Not Discussed Care Teams Remote Sensing Engineer Relationship Specialty Start Date End Date Svetlana Jacobs DO 293 [place] [address] PCP - General Family Medicine 10/01/23 documented as of this encounter
--- OUTSIDE RECORDS SUMMARY | 2024-02-14 11:58 | External Medical Summary ---
Author Name Unknown Address Unknown Organization K09:[facility] [place] [address] Laboratory Report Ordering Provider Test Date Status COREY BRAVO 02/09/2024 10:16:40 Final Observation Date Value Abnormality Reference (Units ) Status SYNC LEUKOCYTES IN BLOOD BY AUTOMATED COUNT 02/09/2024 10:16:40 9.63 4.00-10.80 (K/uL) Final Segs 02/09/2024 10:16:40 58.2 40.0-75.0 (%) Final Lymphs % 02/09/2024 10:16:40 27.6 18.0-42.0 (%) Final Monos 02/09/2024 10:16:40 11.2 Above high normal 1.0-11.0 (%) Final Eosinophils 02/09/2024 10:16:40 2.5 0.0-6.0 (%) Final Basos 02/09/2024 10:16:40 0.5 0.0-2.0 (%) Final Absolute Segs 02/09/2024 10:16:40 5.60 1.80-7.70 (K/uL) Final Lymphs, absolute 02/09/2024 10:16:40 2.66 1.00-4.80 (K/ul) Final Monos, Abs 02/09/2024 10:16:40 1.08 0.00-1.10 (K/uL) Final Eos, Abs 02/09/2024 10:16:40 0.24 0.00-0.70 (K/uL) Final Basos, Abs 02/09/2024 10:16:40 0.05 0.00-0.20 (K/uL) Final Performing Location [facility] [place] [address]
--- OUTSIDE RECORDS SUMMARY | 2024-02-14 11:58 | External Medical Summary | Summary of Care ---
Author Name Unknown Organization [facility] Address [address] [place] [address] Phone [phone] Care Team Providers Care Residential Carpet Installer Name Role Phone Svetlana Jacobs DO Primary Care Provider [phone] Reason for Visit * Reason Onset Date Comments Advice 02/02/2024 Encounter Details Date Type Department Care Team (Late st Contact Info) Description 02/02/2024 Telephone [facility]rology[facility]os[facility] 200 [facility] [place] [address] Blake Becker MD 200 [facility] [place] [phone] Advice Allergies Active Allergy Reactions Criticality Noted [...] as of this encounter (statuses as of 02/02/2024) Medications Medication Sig Dispensed Refills Start Date [...] Tablet Sublingual (Nitrostat)Indicatio ns:Coronary artery disease involving kenaitze coronary artery of kenaitze heart without angina pectoris,Dyslipidemi a, goal LDL [...] as of this encounter (statuses as of 02/02/2024) Active Problems Problem Noted Date Diagnosed Date [...] thrombosis) 02/08/2020 Coronary artery disease invo lving kenaitze coronary artery of kenaitze heart without angina pectoris 02/08/2020 Failed back [...] as of this encounter (statuses as of 02/02/2024) Resolved Problems Problem Noted Date Diagnosed Date Resolved Date Sacroiliitis 10/22/2021 10/22/2021 Morbid obesity, unspecified obesity type 10/22/2021 10/28/2023 Atrial fibrillation 10/22/2021 10/22/19 22 Opioid abuse 02/19/2021 10/28/2023 Unspecified mood (affective) disorder 08/21/2019 02/07/2020 Prediabetes 02/28/2019 08/02/2020 Overview: Per Prediabetes protocol #1 Encounter for examination fo r normal comparison and control in clinical research program 02/23/2018 05/21/2020 Overview: DO NOT DELETE [facility] DETECT Study: Project # [id number], Property Custodian: Yoel Sung, PhD. SUMMARY: Goal: Establish test [...] contact study staff at ; after hours Property Custodian via the [facility] photographic machine operator . Please contact study team before resolving/deleting from patients problem list. Study phone number: [phone]. Diagnosis changed due to Research Module. Go to Snapshot for study details. Encounter for examination fo r normal comparison and control in clinical research program 02/23/2018 06/19/2022 Overview: DO NOT DELETE [facility] Study: Project # [id number], Property Custodian: Ranjeet Villa, MS, MPH. SUMMARY: Goal: Establish [...] contact study staff at ; after hours Property Custodian via the [facility] hospital photographic machine operator . - Please contact study team before resolving/deleting from patients problem list. Study phone number: [phone]. Diagnosis changed due to Research Module. Go to Snapshot for study details. Preop examination 03/29/2016 09/30/2016 Abnormal electrocardiogram 03/29/2016 1 11/07/2018 MEDICATION USE AGREEMENT 05/03/2015 Overview: Signed 05/03/2015 Charanjit Spann MD [facility] Encounter for long-term (cur rent) use of medications 12/31/2011 02/07/2020 Overview: ICD-10 update of inactive term Postlaminectomy syndrome 12/16/201107/2017 Lumbago 12/16/2011 07/28/2017 Mixed dyslipidemia 10/30/2005 9 Overview: Per Lipid Taxonomy. documented as of this encounter (statuses as of 02/02/2024) Immunizations Name Administration Dates Next Due COVID-19 mRNA, LNP-s, No Pre serve, 2-Dose Series ([employer]) 08/29/2021,03/06/2021,02/13/2021 COVID-19, LNP-s, No Preserve , Ad-sucrose, Ages 12+ (Pfizer) 02/07/2022 COVID-19, MRNA-LNP, 23-24, P F, 30 MCG/0.3 mL, 12 YRS AND ABOVE, IM ([facility]) 12/15/2023 Covid-19, Mrna, Lnp-s, Pf, B ivalent, 30 Mcg, IM, 12 yrs and above (High Brew Coffee) 08/01/2022 Pneumococcal Conjugate Vacc, 13 Valent (Prevnar) [...] encounter Miscellaneous Notes * Telephone Encounter - Karyn Alcazar, HOLLY - 02/02/2024 4:34 PM EDT Patient calling about 24 hour urine collection that was given to her. She did not receive the requisition for [facility] in the box. She would like a call back at [phone]. documented in this encounter Plan of Treatment Upcoming Encounters Date Type Department Care Team (Late st Contact Info) Description 02/03/2024 1:45 PM EDT Imaging Radiology [facility] 1st [facility] [address] [place] [address] 02/18/2024 8:40 AM EDT Office Visit Family Practice [address] [place] 293 [place] [address] Svetlana Jacobs DO 293 [place] [address] 06/22/2024 11:00 AM EDT Office Visit Cardiology, [facility] 132 [place] [address] Dann Hancock PA-C 132 [place] [address] 07/19/2024 1:45 PM EDT Office Visit Urology, [facility] 132 [place] [address] Hayden Johnson MD 27 [facility] [address] [place] [address] 09/08/2024 10:45 AM EST Office Visit Dermatology [facility] [place] [address] [place] [address] Abdelrahman Silav MD [address] [place] [address] 09/29/2024 2:40 PM EST Office Visit Nephrology, [facility] [address] [place] [address] Blake Becker MD [address] [place] [address] 09/30/2024 11:00 AM EST Nurse Only Ancillary [address], [place] [address] [place] [address] College, Nurse Annual Wellness Visit [address] [facility] [address] [place] [address] Health Maintenance Due Date Last Done Comments [...] Additional history exists CKD PHOS USE SMARTSET 04163 10/16/202409/19, 01/28/2023, 01/26/2023, Additional history exists TSH 10/16/2024 10/16/2023, 12/2022, 06/20/2022, Additional history exists CKD HGB USE SMARTSET 21385 11/10/202411/10, 10/16/2023, 06/26/2023, Additional history exists DXA Scan 01/10/2026 01/11/2024, 07/19, 05/09/2015 DTaP,Tdap,and Td Vaccines (2 - Td or Tdap) 01/23/2026 01/24/2016 Pneumococcal Vaccine: 65+ Years Completed 06/06/2016, 01/26/2013 Zoster Vaccines Completed 06/23/2019, 02/18, 02/23/2018, Additional history exists Colonoscopy Discontinued 08/19/2019, 10/2018, 07/20/2018, Additional history exists Colorectal Cancer Screening Discontinued VITAMIN D LEVEL ONCE IN A LIFETIME-USE SMARTSET# 14337 Completed 11/13/2022, 05/07/2006 Influenza Vaccine (FLU shot) [...] this encounter Medical Devices Implanted Type Area Sausage Cutter Device Identifier Shelf Expiration Date Model / Serial / Lot Dbx 5cc [id number] - [id number] - [id number] Implanted:Qty : 1 on 01/08/2021 by Kuldeep Fisher DO OR [facility] Tissue - Human Left: Spine Lumbar MUSCULOSKELETAL TRANSPLANT FND [id number] 06/18/2022 [id number] / [id number] / LOT NA Description:[id number] Implant Ifuse 3d 7x55 Mm - [id number] Implanted:Qty : 1 on 01/08/2021 by Kuldeep Fisher DO OR [facility] Left: Spine Lumbar [employer] 09/05/2024 7055M-90 / / [id number] Implant Ifuse 3d 7x55 Mm - [id number] Implanted:Qty : 1 on 01/08/2021 by Kuldeep Fisher DO OR [facility] Left: Spine Lumbar [employer] 03/29/2024 7055M-90 / / [id number] Ifuse Implant System 7.0 X 50mm Implant Implanted:Qty : 1 on 01/08/2021 by Kuldeep Fisher DO OR [facility] Left: Spine Lumbar 05/11/2025 7050M-90 / / [id number] Implant Ifuse 3d 7x50 Mm - [id number] Implanted:Qty : 2 on 03/12/2021 by Kuldeep Fisher DO at OR [facility] Right: Pelvis [employer] 09/18/2025 7050M-90 / / [id number] Dbx 2.5cc [id number] - [id number] - [id number] Implanted:Qty : 1 on 03/12/2021 by Kuldeep Fisher DO at OR [facility] Right: Iliac MUSCULOSKELETAL TRANSPLANT FND [id number] 07/20/2022 [id number] / [id number] / LOT NA Implant Ifuse 3d 7x45 Mm - [id number] Implanted:Qty : 1 on 03/12/2021 by Kuldeep Fisher DO at OR [facility] Right: Pelvis [employer] 09/18/2025 7045M-90 / / [id number] documented as of this encounter Advance Directives [...] jordan occurred with: Not Discussed Care Teams Residential Carpet Installer Relationship Specialty Start Date End Date Svetlana Jacobs DO [address] [place] [address] PCP - General Family Medicine 10/01/23 documented as of this encounter
--- NOTE | 2024-02-14 12:21 | Emergency Department Note ---
Impression & Plan Rectal bleeding, Syncope, Acute shoulder pain, Proctocolitis ED Provider Note NAME: JOVANNI DE SANTIAGO AGE: 74 SEX: F : 1950 ARRIVES VIA: Ambulance INFORMANT: Patient, ED PROVIDER(S): Oskar Corado MD CHIEF COMPLAINT: Abdominal pain, syncope, rectal and vaginal bleeding MEDICAL DECISION MAKING: Patient presents due to concern for GI bleeding and abdominal pain with associated syncope and head strike. Patient is on blood thinning medications. IV was established and blood work was obtained along with CT head cervical spine CT abdomen pelvis. External vaginal exam was performed which did show blood distal to the external vagina but no evidence of bleeding at the introitus or labia. Patient does have bright red blood noted per rectum on rectal exam. These exams were completed with nurse burr picker Beverly. Patient's results from today showed a white count of 8 with a hemoglobin 11.5. The patient's platelet count is unremarkable kidney function unremarkable BSG at 144. Urinalysis does not show evidence of obvious infection. Type and screen was performed. The patient's CT head and cervical spine are negative. Patient CT abdomen pelvis does show circumferential thickening of the sigmoid and rectum consistent with a proctocolitis. No evidence of acute diverticulitis or acute traumatic process. Shoulder x-ray also performed on the patient has suffered from chronic right shoulder pain. Given the patient has had a drop in her hemoglobin from prior and is currently on blood thinning medication with active GI bleeding do not think it unreasonable to be admitted at this time. I did speak to the on-call hospital service, Gabriela Osborne PA-C and the patient was admitted by Dr. Olivo. Discussion w/ other healthcare providers: Gabriela Osborne PA-C and Dr. Olivo Prior /Outside records reviewed: I reviewed a pain management visit from Krystian Gonzalez from January 31. The patient has a history of right rotator cuff dysfunction and shoulder pain. Patient was referred to the pain clinic to reduce opioid intake. Patient has had persistent right shoulder pain status post right shoulder surgery x 4. Patient reportedly was having issues with the right shoulder and abnormal MRI of the shoulder done in October with associated large hematoma underwent for surgery in October for arthroscopy extensive debridement and irrigation of the hematoma. Patient reportedly had an abnormal bacillus drain grew out from a culture from the most recent procedure and orthopedics attempted to aspirate the shoulder at 6 weeks postop but no fluid was able to be aspirated at that time. Ever since the attempted Asper ration patient has been having worsening right shoulder pain. Differential diagnosis: Fracture, dislocation, contusion, strain, sprain, ICH, hemothorax, intra- abdominal injury, anemia among other causes were considered. Diagnostics, as interpreted by me: ECG: Normal sinus rhythm, rate of 75, normal intervals, left axis deviation, motion artifact in V5 Q waves noted inferiorly.Patient's EKG may have some mild improvement from comparison EKG T wave flattening noted V2 V3 as well as inferiorly which showed more T wave inversions in prior EKG from April 15, 2023. Q waves appear to be old. Cardiac monitoring: An order was placed for continuous cardiac monitoring. The monitor shows a rate of 75 with sinus rhythm. Patient was placed on pulse oximetry Medical decision rules: None Imaging studies: I informally interpreted the patient's right shoulder x-ray does not show obvious fracture dislocation with formal report to follow. HPI: Patient presents due to concern for abdominal pain headache. The patient states that she got lightheaded and dizzy the last night fell struck her forehead and and has had pain. Patient states that she also struck her right shoulder which has been ailing her for some time she has had recurrence of surgery there. The patient also does complain of abdominal pain with associated vaginal rectal bleeding. Patient states initially yesterday this began with a spot on her underwear which she thought was consistent with vaginal bleeding which then got progressively worse and resulted in rectal vaginal bleeding. The patient does take aspirin and Eliquis. Patient did not take anything for her pain at home. The patient denies any nausea or vomiting but does have mid abdominal pain as well ever since she had her fall. Patient states that her pain has been fairly constant. Patient's abdominal pain does worsen with palpation as does her headache. PAST MEDICAL HISTORY: See Below PAST SURGICAL HISTORY: See Below SOCIAL HISTORY: See Below HOME MEDICATIONS: See Below ALLERGIES: See Below VITALS: See Below PHYSICAL EXAMINATION: GENERAL: NAD, non-toxic. EYE EXAM: Normal conjunctiva. PERRL, no anisocoria and EOM's grossly intact w/o pain. Head: Reproducible left-sided head pain without obvious deformity. OROPHARYNX: Moist mucus membranes, grossly normal dentition. NECK: Trachea midline, no stridor. Supple, no nuchal rigidity, no adenopathy, non-tender. No signs of meningismus. FROM of the neck with good chin to chest and neck extension. LUNGS: Clear to auscultation. Normal chest wall mechanics. HEART: NSR, no MRG. ABDOMEN: Abdomen soft, mid abdominal pain, no masses, no rebound or guarding. BACK: No CVA TTP. SKIN: No rashes and no bruising. UPPER EXTREMITIES: Right shoulder pain without obvious deformity. LOWER EXTREMITIES: Grossly normal, no edema. NEURO EXAM: A&O x3, cranial nerves II-XII grossly intact, normal speech, moves all 4 extremities. Past Med/Surg History Medical History Right shoulder pain Encounter for pre-operative examination Dilation of thoracic aorta mild per cardio; monitoring HOLLY (obstructive sleep apnea) noncompliant with CPAP per cardio note History of post-polio syndrome Orthostatic hypotension Barretts esophagus on protonix; follows with GI Intractable abdominal pain Cyclic vomiting syndrome Diabetes mellitus, type 2 06/26/23 Ha1c: 5.8% Hx of Clostridium difficile infection Remote hx History of COVID-19 10/2021 - treated inpatient at [facility]/Covid PNA Chronic heart failure with preserved ejection fraction (HFpEF) EF 55-59% GI bleed Hx (declined AC d/t hx of GIB per records) CAD (coronary artery disease) 2 BMS to LAD (2016) Degenerative disc disease Hypothyroidism Anemia Post traumatic stress disorder Depression Anxiety Restless leg syndrome Migraine Hx, no recent issues Deep vein thrombosis ~2014, unknown cause Pulmonary embolism ~2014 (UNSURE OF REASON) Myocardial Infarction NSTEMI 2017; s/p 2 BMS to LAD Hypertension Hyperlipidemia Dyslipidemia Cervical spondylolysis Scoliosis Surgical History History of arthroscopy of right shoulder 10/23/23 ([facility]) Right shoulder arthroscopy, I&D of subacromial hematoma History of arthroscopy of right shoulder rt shoulder, 06/2023 History of colonoscopy History of esophagogastroduodenoscopy (EGD) History of back surgery has bilateral SI Joint replacements (~2020 at [facility]) S/P hardware removal removal of all back hardware (~2002) [facility] [place] History of vascular access device Left upper chest port (*not a power port*) History of cataract surgery LEFT AND RIGHT History of anesthesia reaction Awareness with spinal surgeries History of laminectomy and fusion "entire spine is fused(except cervical spine)" [facility] [place] (Dr Catherine) 1989' Fusion of spine LUMBAR History of appendectomy History of tonsillectomy History of adenoidectomy History of heart artery stent 2017-x2 STENTS PLACED AT [facility] (DR. DAVILA) H/O ovarian cystectomy x2 H/O repair of right rotator cuff H/O spinal fusion Multiple Family History Mother Hypertension Father Hypertension Other No family history of adverse response to anesthesia Social History Smoking Status: Never smoker Second Hand Exposure: No; Do You Dip or Chew Tobacco: No; Hx Alcohol Use: No Hx Substance Use: No Preferred Language: Ugandan Communication Ability: Effective Visual Impairment: Limited Hearing Ability: Normal Manager Provider Relations Required: No Beliefs That Will Affect Care: None marital status: Current Living Situation: Alone current occupational status: retired How many Children do You have: 2 Other Information That Helps Us Care for You: No Feels Safe at Home: Yes Safety Concerns: Feels Safe At This Time Assistive Devices: Walker Allergies Allergies Allergy/AdvReac Type Severity Reaction Status Date / Time latex Allergy Intermediate Rash Verified 02/01/24 10:08 nickel Allergy Intermediate SEVERE Verified 02/01/24 10:08 DERMATITIS, difficulty breathing adhesive tape AdvReac Intermediate SKIN Verified 02/01/24 10:08 IRRITATION aspirin AdvReac Intermediate full dose Verified 02/01/24 10:08 asa -> bleeding ulcers NSAIDS (Non-Steroidal AdvReac Intermediate HX OF Verified 02/01/24 10:08 Anti-Inflamma BLEEDING ULCERS-TO AVOID Home Meds Home Medications Medication Instructions Recorded Confirmed atorvastatin 40 mg tablet (Lipitor) 40 mg PO QAM 12/13/18 02/14/24 levothyroxine 75 mcg tablet 75 mcg PO QAM 12/13/18 02/14/24 promethazine 25 mg tablet 25 mg PO Q6H PRN Nausea 05/12/19 02/14/24 epinephrine 0.3 mg/0.3 mL 0.3 mg IM Q3H PRN Allergic Reaction 05/23/19 02/14/24 injection syringe nitroglycerin 0.3 mg sublingual 0.3 mg sublingual UD PRN Chest Pain 05/23/19 02/14/24 tablet (Nitrostat) olopatadine 0.2 % eye drops 1 drp ophthalmic (eye) QAM 05/23/19 02/14/24 tizanidine 4 mg tablet 4 mg PO BID PRN Muscle Spasm 04/03/20 02/14/24 trazodone 100 mg tablet 300 mg PO HS 04/03/20 02/14/24 furosemide 20 mg tablet 40 mg PO QAM 10/05/20 02/14/24 loperamide 2 mg capsule 2 mg PO QID PRN Diarrhea 02/15/21 02/14/24 apixaban 5 mg tablet (Eliquis) 5 mg PO BID 10/11/21 02/14/24 aspirin 81 mg tablet,delayed 81 mg PO QAM 01/20/23 02/14/24 release metoprolol succinate 100 mg 100 mg PO QAM 01/20/23 02/14/24 tablet,extended release 24 hr semaglutide 2 mg/dose (8 mg/3 mL) 2 mg subcut WK 01/20/23 02/14/24 subcutaneous pen injector (Ozempic) spironolactone 25 mg tablet 25 mg PO QAM 01/20/23 02/14/24 buspirone 10 mg tablet 10 mg PO BID 02/20/23 02/14/24 oxycodone 5 mg tablet 5 mg PO Q6H PRN pain 02/14/24 02/14/24 Previous Rx's Medication Instructions Recorded plecanatide 3 mg tablet (Trulance) 3 mg PO QAM #90 tabs 06/11/23 acetaminophen 500 mg tablet 1,000 mg (2 x 500 mg) PO Q8 PRN 07/12/23 (Tylenol Extra Strength) pain #100 tabs ondansetron 4 mg disintegrating 4 mg PO Q6H PRN nausea and 10/26/23 tablet vomiting #10 tabs pantoprazole 40 mg tablet,delayed 40 mg PO BID #60 tabs 12/21/23 release pregabalin 25 mg capsule 25 mg PO .COMPLEX #90 caps 02/01/24 Results & Data (ED) Vital Signs Vital Signs - 24 hr 02/14/24 12:02 02/14/24 12:02 02/14/24 12:18 Temperature 36.5 C 36.5 C Temperature Source Oral Oral Pulse Rate 76 74 Pulse Rate [Apical] 76 Respiratory Rate 18 18 Respiratory Effort / Characteristics Non-Labored Spontaneous Non-Labored Spontaneous Respiratory Depth Normal Normal Blood Pressure 123/92 Blood Pressure [Left Arm] 123/92 Blood Pressure Mean 102 Blood Pressure Mean [Left Arm] 102 Blood Pressure Position Semi-fowlers Blood Pressure Position [Left Arm] Semi-fowlers Pulse Oximetry 99 99 Oxygen Delivery Method Room Air Room Air Sepsis Recent Fever Within 48 Hours No Sepsis New/Unexplained Change in Mental Status N/A Sepsis Action Taken by Nursing No Action Required 02/14/24 12:25 Temperature Temperature Source Pulse Rate 75 Pulse Rate [Apical] Respiratory Rate 18 Respiratory Effort / Characteristics Respiratory Depth Blood Pressure Blood Pressure [Left Arm] Blood Pressure Mean Blood Pressure Mean [Left Arm] Blood Pressure Position Blood Pressure Position [Left Arm] Pulse Oximetry 90 Oxygen Delivery Method Room Air Sepsis Recent Fever Within 48 Hours Sepsis New/Unexplained Change in Mental Status Sepsis Action Taken by [facility] Medications Current Medication List: was personally reviewed by me Laboratory Data Attestation: I reviewed the patient's lab results. 02/16/24 04:20 02/16/24 04:20 Lab Results 02/14/24 02/14/24 02/14/24 Range/Units 12:04 12:05 13:22 WBC 8.74 (4.8-10.8) K/ul RBC 3.92 L (4.20-5.40) M/uL Hgb 11.5 L (12.0-16.0) g/dl Hct 34.7 L (37.0-47.0) % MCV 88.5 (80.0-100.0) fL MCH 29.3 (25.0-34.0) pg MCHC 33.1 (32.0-36.0) g/dL RDW Std Deviation 45.1 (36.4-46.3) fL RDW Coeff of [place] 14.1 (11.5-14.5) % Plt Count 268 (130-400) K/uL MPV 10.2 (9.4-12.4) fL Immature Gran % (Auto) 0.2 % Neut % (Auto) 57.8 % Lymph % (Auto) 31.6 % [place] % (Auto) 7.8 % Eos % (Auto) 2.1 % Baso % (Auto) 0.5 % Neut # (Auto) 5.06 (1.40-6.50) K/uL Lymph # (Auto) 2.76 (1.20-3.40) K/uL [place] # (Auto) 0.68 H (0.11-0.59) K/uL Eos # (Auto) 0.18 (0.00-0.50) K/uL Baso # (Auto) 0.04 (0.00-0.20) K/uL Immature Gran # (Auto) 0.02 (0.01-0.20) K/uL PT 12.0 (9.0-12.0) Seconds INR 1.1 (0.9-1.1) APTT 29 (21-31) Seconds PTT Ratio 1.0 Sodium 137 (136-145) mmol/L Potassium 3.6 (3.5-5.1) mmol/L Chloride 102 (98-107) mmol/L Carbon Dioxide 26 (21-32) mmol/L Anion Gap 9 (3-11) BUN 11 (6-23) mg/dl Creatinine 0.88 (0.6-1.2) mg/dl Est Cr Clr Drug Dosing 55.0 ml/min Est GFR ( Amer) 74.0 ml/min Est GFR (Non-Af Amer) 63.8 ml/min BUN/Creatinine Ratio 12.5 (10-20) Glucose 144 H (70-99(Fasting)) mg/dl Calcium 8.9 (8.6-10.3) mg/dl Phosphorus 3.6 (2.5-4.9) mg/dl Magnesium 1.6 L (1.7-2.4) mg/dl Total Bilirubin 0.5 (0.2-1.0) mg/dl AST 20 (13-39) U/L ALT 15 (7-52) U/L Alkaline Phosphatase 88 (34-104) U/L Troponin I High Sens 3.5 (0-14) pg/ml Total Protein 6.2 (6.0-8.3) gm/dl Albumin 3.9 (3.4-5.0) gm/dl Globulin 2.3 L (2.5-4.0) gm/dl Albumin/Globulin Ratio 1.7 (0.9-2) Urine Color Yellow Urine Appearance Clear (Clear) Urine pH 6.5 (4.5-7.5) Ur Specific [place] 1.011 (1.000-1.030) Urine Protein Negative (Negative) Urine Glucose (UA) Negative (Negative) Urine Ketones Negative (Negative) Urine Blood Negative (Negative) Urine Nitrite Negative (Negative) Urine Bilirubin Negative (Negative) Urine Urobilinogen Negative (Negative) Ur Leukocyte Esterase Trace H (Negative) Urine WBC (Auto) 0-5 (0-5) /hpf Urine RBC (Auto) 0-2 (0-2) /hpf U Hyaline Cast (Auto) 3-5 H (0-2) /lpf U Epithel Cells (Auto) 0-2 (0-2) /hpf Urine Bacteria (Auto) None Seen (None Seen) Blood Type O Positive Antibody Screen NEGATIVE Crossmatch See Detail Administered Medications Aspirin (Aspirin 81 Mg Ectab) [facility] [place] Stop: 03/16/24 08:59 Last Admin: 02/15/24 08:01 Dose: Not Given Documented By: SUSANNA Atorvastatin Calcium (Atorvastatin 40 Mg Tab) [facility] [place] Stop: 03/16/24 08:59 Last Admin: 02/16/24 08:36 Dose: 40 mg Documented By: Admin: 02/15/24 08:19 Dose: 40 mg Documented By: SUSANNA Buspirone HCl (Buspirone 5 Mg Tab) 10 mg PO BID [facility] Stop: 03/15/24 20:59 Last Admin: 02/16/24 08:36 Dose: 10 mg Documented By: Admin: 02/15/24 19:42 Dose: 10 mg Documented By: Admin: 02/15/24 08:19 Dose: 10 mg Documented By: Admin: 02/14/24 20:38 Dose: 10 mg Documented By: JAYA Rivas Syrup (Rivas Syrup 5 Ml Udp) 5 ml PO Q6 [facility] Stop: 02/25/24 07:44 Last Admin: 02/16/24 06:10 Dose: 5 ml Documented By: Admin: 02/15/24 21:51 Dose: 5 ml Documented By: Admin: 02/15/24 18:02 Dose: 5 ml Documented By: Admin: 02/15/24 13:06 Dose: 5 ml Documented By: Admin: 02/15/24 08:50 Dose: 5 ml Documented By: SUSANNA Pantoprazole Sodium 40 mg/ (Syringe) 10 mls @ 5 mls/min IV BID COLT Stop: 03/15/24 14:59 Last Admin: 02/16/24 08:37 Dose: 5 mls/min Documented By: Admin: 02/15/24 19:42 Dose: 5 mls/min Documented By: Admin: 02/15/24 08:20 Dose: 5 mls/min Documented By: Admin: 02/14/24 20:41 Dose: 5 mls/min Documented By: Admin: 02/14/24 16:41 Dose: 5 mls/min Documented By: PEEWEE Ciprofloxacin (Cipro / D5w) 400 mg in 200 mls @ 100 mls/hr IV Q12H COLT; Protocol Stop: 02/24/24 15:59 Last Infusion: 02/15/24 04:57 Dose: Infused Documented By: Admin: 02/15/24 02:30 Dose: 100 mls/hr Documented By: Infusion: 02/14/24 18:05 Dose: Infused Documented By: Admin: 02/14/24 15:35 Dose: 100 mls/hr Documented By: DI Metronidazole (Flagyl) 500 mg in 100 mls @ 100 mls/hr IV Q8H COLT; Protocol Stop: 02/24/24 15:59 Last Infusion: 02/16/24 09:48 Dose: Infused Documented By: Admin: 02/16/24 08:37 Dose: 100 mls/hr Documented By: Infusion: 02/15/24 22:48 Dose: Infused Documented By: Admin: 02/15/24 21:56 Dose: 100 mls/hr Documented By: Infusion: 02/15/24 16:57 Dose: Infused Documented By: Admin: 02/15/24 15:18 Dose: 100 mls/hr Documented By: Infusion: 02/15/24 09:18 Dose: Infused Documented By: Admin: 02/15/24 08:18 Dose: 100 mls/hr Documented By: Infusion: 02/14/24 23:45 Dose: Infused Documented By: Admin: 02/14/24 22:19 Dose: 100 mls/hr Documented By: Infusion: 02/14/24 19:31 Dose: Infused Documented By: Admin: 02/14/24 18:06 Dose: 100 mls/hr Documented By: GOLD Ceftriaxone Sodium (Rocephin) 2,000 mg in 50 mls @ 100 mls/hr IV Q24H [facility] Stop: 02/24/24 18:59 Last Infusion: 02/15/24 22:52 Dose: Infused Documented By: Admin: 02/15/24 19:40 Dose: 100 mls/hr Documented By: Infusion: 02/14/24 21:17 Dose: Infused Documented By: Admin: 02/14/24 20:37 Dose: 100 mls/hr Documented By: JAYA Sodium Chloride (Nss) 1,000 mls @ 80 mls/hr IV .[id number] [facility] Stop: 03/16/24 22:44 Last Admin: 02/15/24 23:56 Dose: 80 mls/hr Documented By: DUSTIN Insulin Aspart (Insulin Aspart Per Unit Charge) 0 units SC ACHS COLT Stop: 03/15/24 17:37 Last Admin: 02/16/24 09:47 Dose: Not Given Documented By: Admin: 02/15/24 21:25 Dose: Not Given Documented By: Admin: 02/15/24 17:37 Dose: Not Given Documented By: Admin: 02/15/24 13:05 Dose: Not Given Documented By: Admin: 02/15/24 08:19 Dose: Not Given Documented By: Admin: 02/14/24 20:42 Dose: Not Given Documented By: Admin: 02/14/24 18:06 Dose: Not Given Documented By: GOLD Levothyroxine Sodium (Levothyroxine Sodium 75 Mcg Tablet) 75 mcg PO DAILYBB [facility] Stop: 03/16/24 06:29 Last Admin: 02/16/24 06:10 Dose: 75 mcg Documented By: Admin: 02/15/24 05:23 Dose: 75 mcg Documented By: JAYA Metoprolol Succinate (Metoprolol Succ 50mg Ext Rel Tab) [facility] [place] Stop: 03/16/24 08:59 Last Admin: 02/16/24 08:36 Dose: 100 mg Documented By: Admin: 02/15/24 08:19 Dose: 100 mg Documented By: SUSANNA Miscellaneous (Olopatadine 0.2 % Drops: Order Awaiting Action) 1 each N/A QS COLT Stop: 03/16/24 00:00 Last Admin: 02/16/24 08:37 Dose: Not Given Documented By: Admin: 02/15/24 21:51 Dose: Not Given Documented By: Admin: 02/15/24 15:07 Dose: Not Given Documented By: Admin: 02/15/24 08:18 Dose: Not Given Documented By: Admin: 02/14/24 21:18 Dose: Not Given Documented By: JAYA Mismandi (Trulance Tab: Order Awaiting Action) 1 each N/A QS COLT Stop: 03/16/24 00:00 Last Admin: 02/16/24 08:37 Dose: Not Given Documented By: Admin: 02/15/24 21:51 Dose: Not Given Documented By: Admin: 02/15/24 15:07 Dose: Not Given Documented By: Admin: 02/15/24 08:18 Dose: Not Given Documented By: Admin: 02/14/24 21:18 Dose: Not Given Documented By: JAYA Morphine Sulfate (Morphine Sulfate 4 Mg/Ml 1 Ml Carp\\Vial) 4 mg IV Q4H PRN PRN Reason: Severe Pain (Scale 7, 8, 9,10) Stop: 02/28/24 15:25 Last Admin: 02/16/24 10:03 Dose: 4 mg Documented By: Admin: 02/16/24 06:08 Dose: 4 mg Documented By: Admin: 02/16/24 02:03 Dose: 4 mg Documented By: SRGallito Admin: 02/15/24 21:45 Dose: 4 mg Documented By: Admin: 02/15/24 17:46 Dose: 4 mg Documented By: Admin: 02/15/24 12:55 Dose: 4 mg Documented By: SUSANNA Oxycodone HCl (Oxycodone Hcl Ir 5 Mg Tab (Immediate Release)) 5 mg PO Q6H PRN PRN Reason: Moderate Pain (Scale 4, 5, 6) Stop: 02/28/24 15:13 Last Admin: 02/16/24 01:27 Dose: 5 mg Documented By: Admin: 02/15/24 19:57 Dose: 5 mg Documented By: DUSTIN Pregabalin (Pregabalin 25 Mg Cap) 25 mg PO TID COLT Stop: 03/15/24 20:59 Last Admin: 02/16/24 08:36 Dose: 25 mg Documented By: Admin: 02/15/24 19:58 Dose: 25 mg Documented By: Admin: 02/15/24 15:07 Dose: 25 mg Documented By: Admin: 02/15/24 08:25 Dose: 25 mg Documented By: Admin: 02/14/24 20:37 Dose: 25 mg Documented By: JAYA Tizanidine HCl (Tizanidine Hcl 4 Mg Tablet) 4 mg PO BID PRN PRN Reason: Muscle Spasm Stop: 03/15/24 15:13 Last Admin: 02/16/24 08:36 Dose: 4 mg Documented By: CARMEN Trazodone HCl (Trazodone Hcl 100 Mg Tab) 300 mg PO HS COLT Stop: 03/15/24 20:59 Last Admin: 02/15/24 19:42 Dose: 300 mg Documented By: Admin: 02/14/24 20:37 Dose: 300 mg Documented By: JAYA Vancomycin HCl (Vancomycin Hcl 500 Mg/10 Ml Soln) 500 mg PO Q6 COLT Stop: 02/25/24 07:44 Last Admin: 02/16/24 06:10 Dose: 500 mg Documented By: Admin: 02/15/24 21:51 Dose: 500 mg Documented By: Admin: 02/15/24 18:01 Dose: 500 mg Documented By: Admin: 02/15/24 13:05 Dose: 500 mg Documented By: Admin: 02/15/24 08:50 Dose: 500 mg Documented By: SUSANNA Discontinued Medications Diphenhydramine HCl (Diphenhydramine 50 Mg/Ml Vial) 25 mg IV NOW STA Stop: 02/14/24 17:20 Last Admin: 02/14/24 18:05 Dose: 25 mg Documented By: GOLD Diphenhydramine HCl (Diphenhydramine Capsule 25 Mg Cap) 25 mg PO NOW ONE Stop: 02/15/24 11:19 Last Admin: 02/15/24 11:33 Dose: 25 mg Documented By: SUSANNA Diphenhydramine HCl (Diphenhydramine Capsule 25 Mg Cap) 25 mg PO NOW ONE Stop: 02/15/24 21:41 Last Admin: 02/15/24 21:56 Dose: 25 mg Documented By: DUSTIN Acetaminophen (Ofirmev) 1,000 mg in 100 mls @ 400 mls/hr IV NOW STA Stop: 02/14/24 14:45 Last Infusion: 02/14/24 15:01 Dose: Infused Documented By: Admin: 02/14/24 14:40 Dose: 400 mls/hr Documented By: DAXA Sodium Chloride (Nss) 1,000 mls @ 125 mls/hr IV .Q8H COLT Stop: 03/15/24 17:29 Last Infusion: 02/15/24 22:53 Dose: Infused Documented By: Admin: 02/15/24 12:55 Dose: 125 mls/hr Documented By: Infusion: 02/15/24 08:10 Dose: Infused Documented By: Admin: 02/15/24 00:09 Dose: 125 mls/hr Documented By: Infusion: 02/15/24 00:09 Dose: Infused Documented By: Admin: 02/14/24 18:06 Dose: 125 mls/hr Documented By: GOLD Magnesium Sulfate/Dextrose (Magnesium Sulfate / D5w) 1 gm in 100 mls @ 50 mls/hr IV ONE ONE Stop: 02/15/24 17:21 Last Infusion: 02/15/24 19:39 Dose: Infused Documented By: Admin: 02/15/24 17:01 Dose: 50 mls/hr Documented By: SUSANNA Magnesium Sulfate/Dextrose (Magnesium Sulfate / D5w) 1 gm in 100 mls @ 50 mls/hr IV ONE ONE Stop: 02/16/24 00:33 Last Infusion: 02/16/24 02:29 Dose: Infused Documented By: Admin: 02/15/24 23:56 Dose: 50 mls/hr Documented By: DUSTIN Ioversol (Optiray 320 100ml) 93 ml IV ONCE ONE Stop: 02/14/24 13:08 Last Admin: 02/14/24 13:08 Dose: 93 ml Documented By: JAR Morphine Sulfate (Morphine Sulfate 4 Mg/Ml 1 Ml Carp\\Vial) 4 mg IV Q2H PRN PRN Reason: Severe Pain (Scale 7, 8, 9,10) Stop: 02/28/24 15:25 Last Admin: 02/15/24 08:16 Dose: 4 mg Documented By: Admin: 02/15/24 06:10 Dose: 4 mg Documented By: Admin: 02/15/24 04:12 Dose: 4 mg Documented By: Admin: 02/15/24 02:30 Dose: 4 mg Documented By: Admin: 02/15/24 00:10 Dose: 4 mg Documented By: Admin: 02/14/24 22:19 Dose: 4 mg Documented By: Admin: 02/14/24 20:36 Dose: 4 mg Documented By: Admin: 02/14/24 18:05 Dose: 4 mg Documented By: Admin: 02/14/24 15:41 Dose: 4 mg Documented By: PEEWEE Potassium Chloride (Potassium Chloride Crtab 20 Meq Tabcr) 40 meq PO NOW STA Stop: 02/15/24 07:36 Last Admin: 02/15/24 08:16 Dose: 40 meq Documented By: SUSANNA Imaging Data Radiologist's Impression: Cervical Spine CT 02/14/24 12:[address] DOSE: HISTORY: Trauma TECHNIQUE: Multiaxial CT images of the cervical spine were performed and reformatted in the sagittal and coronal plane without the use of contrast. A dose lowering technique was utilized adhering to the principles of ALARA. COMPARISON: Cervical spine CT 04/15/2023. FINDINGS: No fractures. No subluxation. Prevertebral soft tissues and the C1-C2 interval are intact. No pneumothorax. [id number] degenerative changes again noted. IMPRESSION: No fractures within the cervical spine. ACT 112: Negative or not required by law. Electronically signed by: Bulmaro Zavaleta M.D. 02/14/2024 1:[address] 02/14/24 12:[address] DOSE: HISTORY: Trauma, fall on eliquis TECHNIQUE: Multiaxial CT images of the head were performed without the use of intravenous contrast. Automated exposure control was utilized for this study. A dose lowering technique was utilized adhering to the principles of ALARA. Comparison: Head CT 04/15/2023. Findings: The paranasal sinuses and mastoid air cells are clear. The calvarium and skull base are intact. The ventricles and sulci are within normal limits. There is no mass, hematoma, midline shift, or acute infarct. Impression: No acute intracranial abnormality. ACT 112: Negative or not required by law. Electronically signed by: Bulmaro Zavaleta M.D. 02/14/2024 1:33 PM Abdomen/Pelvis CT 02/14/24 12:[address] WITH IV CONTRAST CT DOSE: 2561.38 mGy.cm HISTORY: ab pain, rectal/vaginal bleeding, fall on eliquis TECHNIQUE: Multiaxial CT images of the abdomen and pelvis were performed following the use of intravenous contrast. A dose lowering technique was utilized adhering to the principles of ALARA. COMPARISON STUDY: Abdomen and pelvis CT 12/27/2023. FINDINGS: A few punctate calcified granulomas and subsegmental atelectasis seen within the lung bases. No pneumoperitoneum. No pneumatosis. Bilateral sacroiliac bolts are noted. No acute fractures identified. Extensive bony fusion within the thoracolumbar spine with remnants of old postoperative change. Partial resection of a a few left lateral ribs. Mild circumferential the distal esophagus, unchanged. This favors a mild esophagitis. The liver, gallbladder, pancreas, spleen, and adrenal glands unremarkable. Subcentimeter bilateral renal hypodense lesions are technically too small to characterize but favor cysts. Left-sided nephrolithiasis again noted. No ureteral stones. No hydronephrosis. The main portal vein is patent. Calcified plaque within the normal caliber abdominal aorta. No retroperitoneal or pelvic lymphadenopathy. No pelvic free fluid. The bladder is unremarkable. There is a 2 cm pedunculated uterine fibroid, unchanged. Mild circumferential thickening within the sigmoid colon and rectum with minimal pericolonic fat stranding at the sigmoid colon. This is consistent with a mild nonspecific proctocolitis. Colonic diverticulosis. No evidence for acute diverticulitis. No dilated loops of bowel to suggest an obstruction. IMPRESSION: 1. No acute traumatic process within the abdomen or pelvis. 2. Mild circumferential thickening of the sigmoid colon and rectum with mild pericolonic fat stranding at the mid sigmoid colon. This consistent with a nonspecific proctocolitis. This favors an infectious or inflammatory process. 3. Left-sided nephrolithiasis. No hydronephrosis. 4. Colonic diverticulosis. No evidence for acute diverticulitis. 5. Additional findings as described above. ACT 112: Negative or not required by law. Electronically signed by: Bulmaro Zavaleta M.D. 02/14/2024 1:31 PM Shoulder X-Ray 02/14/24 13:59 XR shoulder RT min 2V routine CLINICAL HISTORY: fall, pain COMPARISON STUDY: Right shoulder 10/19/2023. FINDINGS: The bones are osteopenic. No acute fracture or dislocation within the right shoulder. The right clavicle is intact. Mild widening of the AC joint is likely chronic. Narrowing of the subacromial space consistent with chronic rotator cuff injury. IMPRESSION: No acute fracture or dislocation within the right shoulder. ACT 112: Negative or not required by law. Electronically signed by: Bulmaro Zavaleta M.D. 02/14/2024 2:39 PM Discharge Plan Visit Data Chief Complaint: Fall Stated Complaint: VAG & RECTAL BLEED, DIZZY, FALL, FOREHEAD CONTUSIO ED Provider: Oskar Corado Discharge Problem: Rectal bleeding, Syncope, Acute shoulder pain, Proctocolitis Patient Disposition: Admitted As Inpatient Discharge Instructions Interventions: ED Discharge Assessment Last Done: 02/14/24 16:56 Discharge Problem: Syncope Qualifiers: Syncope type: unspecified Qualified Code(s): R55 - Syncope and collapse Acute shoulder pain Qualifiers: Laterality: right Qualified Code(s): M25.511 - Pain in right shoulder
[2024-02-14 13:05] LABS: Basophils # (auto) 0.04 K/uL (0.00-0.20); Basophils % (auto) 0.5 %; Eosinophils # (auto) 0.18 K/uL (0.00-0.50); Eosinophils % (auto) 2.1 %; Hematocrit (blood only) 34.7 % (37.0-47.0); Hemoglobin 11.5 g/dl (12.0-16.0); Immature Granulocytes # (auto) 0.02 K/uL (0.01-0.20); Immature Granulocytes % (auto) 0.2 %; Lymphocytes # (auto) 2.76 K/uL (1.20-3.40); Lymphocytes % (auto) 31.6 %; Mean Corpuscular Hemoglobin 29.3 pg (25.0-34.0); Mean Corpuscular Hgb Conc 33.1 g/dL (32.0-36.0); Mean Corpuscular Volume 88.5 fL (80.0-100.0); Mean Platelet Volume 10.2 fL (9.4-12.4); Monocytes # (auto) 0.68 K/uL (0.11-0.59); Monocytes % (auto) 7.8 %; Neutrophils # (auto) 5.06 K/uL (1.40-6.50); Neutrophils % (auto) 57.8 %; Platelet Count 268 K/uL (130-400); RDW Coefficient of Variation 14.1 % (11.5-14.5); RDW Standard Deviation 45.1 fL (36.4-46.3); Red Blood Count 3.92 M/uL (4.20-5.40); White Blood Count 8.74 K/ul (4.8-10.8)
[2024-02-14] MEDS: OPTIRAY 320 100ml IV ONE (13:08)
[2024-02-14 13:20] LABS: Albumin Globulin Ratio 1.7 (0.9-2); Albumin Level 3.9 gm/dl (3.4-5.0); BUN Creatinine Ratio 12.5 (10-20); Bilirubin,Total 0.5 mg/dl (0.2-1.0); Calcium 8.9 mg/dl (8.6-10.3); Est GFR (Non-African American) 63.8 ml/min; Globulin 2.3 gm/dl (2.5-4.0); Potassium 3.6 mmol/L (3.5-5.1); Total Protein 6.2 gm/dl (6.0-8.3)
[2024-02-14 13:27] LABS: Troponin I High Sensitivity 3.5 pg/ml (0-14)
--- NOTE | 2024-02-14 13:33 | CT Scan Report ---
ABDOMEN AND PELVIS CT WITH IV CONTRAST CT DOSE: 2561.38 mGy.cm HISTORY: ab pain, rectal/vaginal bleeding, fall on eliquis TECHNIQUE: Multiaxial CT images of the abdomen and pelvis were performed following the use of intrave nous contrast. A dose lowering technique was utilized adhering to the principles of ALARA. COMPARISON STUDY: Abdomen and pelvis CT 12/27/2023. FINDINGS: A few punctate calcified granulomas and subsegmental atelectasis seen within the lung bases . No pneumoperitoneum. No pneumatosis. Bilateral sacroiliac bolts are noted. No acute fractures ident ified. Extensive bony fusion within the thoracolumbar spine with remnants of old postoperative change . Partial resection of a a few left lateral ribs. Mild circumferential the distal esophagus, unchange d. This favors a mild esophagitis. The liver, gallbladder, pancreas, spleen, and adrenal glands unrem arkable. Subcentimeter bilateral renal hypodense lesions are technically too small to characterize bu t favor cysts. Left-sided nephrolithiasis again noted. No ureteral stones. No hydronephrosis. The jeramy n portal vein is patent. Calcified plaque within the normal caliber abdominal aorta. No retroperitone al or pelvic lymphadenopathy. No pelvic free fluid. The bladder is unremarkable. There is a 2 cm pedu nculated uterine fibroid, unchanged. Mild circumferential thickening within the sigmoid colon and rec leonora with minimal pericolonic fat stranding at the sigmoid colon. This is consistent with a mild nonsp ecific proctocolitis. Colonic diverticulosis. No evidence for acute diverticulitis. No dilated loops of bowel to suggest an obstruction. IMPRESSION: 1. No acute traumatic process within the abdomen or pelvis. 2. Mild circumferential thickening of the sigmoid colon and rectum with mild pericolonic fat strandin g at the mid sigmoid colon. This consistent with a nonspecific proctocolitis. This favors an infectio us or inflammatory process. 3. Left-sided nephrolithiasis. No hydronephrosis. 4. Colonic diverticulosis. No evidence for acute diverticulitis. 5. Additional findings as described above. ACT 112: Negative or not required by law. Electronically signed by: Bulmaro Zavaleta M.D. 02/14/2024 1:31 PM
[2024-02-14 13:34] LABS: INR 1.1 (0.9-1.1); Partial Thromboplastin Time 29 Seconds (21-31)
--- NOTE | 2024-02-14 13:34 | CT Scan Report ---
HEAD CT NONCONTRAST CT DOSE: HISTORY: Trauma, fall on eliquis TECHNIQUE: Multiaxial CT images of the head were performed without the use of intravenous contrast. A utomated exposure control was utilized for this study. A dose lowering technique was utilized adheri ng to the principles of ALARA. Comparison: Head CT 04/15/2023. Findings: The paranasal sinuses and mastoid air cells are clear. The calvarium and skull base are int act. The ventricles and sulci are within normal limits. There is no mass, hematoma, midline shift, or acute infarct. Impression: No acute intracranial abnormality. ACT 112: Negative or not required by law. Electronically signed by: Bulmaro Zavaleta M.D. 02/14/2024 1:33 PM
--- NOTE | 2024-02-14 13:38 | CT Scan Report ---
CERVICAL SPINE CT CT DOSE: HISTORY: Trauma TECHNIQUE: Multiaxial CT images of the cervical spine were performed and reformatted in the sagittal and coronal plane without the use of contrast. A dose lowering technique was utilized adhering to th e principles of ALARA. COMPARISON: Cervical spine CT 04/15/2023. FINDINGS: No fractures. No subluxation. Prevertebral soft tissues and the C1-C2 interval are intact. No pneumothorax. [id number] degenerative changes again noted. IMPRESSION: No fractures within the cervical spine. ACT 112: Negative or not required by law. Electronically signed by: Bulmaro Zavaleta M.D. 02/14/2024 1:36 PM
[2024-02-14 13:52] LABS: Appearance Urine Clear (Clear); Bacteria Urine Automated None Seen (None Seen); Bilirubin Urine Negative (Negative); Blood Urine Negative (Negative); Color Urine Yellow; Epithelial Cell Urine Auto 0-2 /hpf (0-2); Glucose Urine UA Negative (Negative); Ketones Urine Negative (Negative); Leukocyte Esterase Urine Trace (Negative); Nitrite Urine Negative (Negative); Protein Urine Negative (Negative); RBC Urine Automated 0-2 /hpf (0-2); Specific Gravity Urine 1.011 (1.000-1.030); Urobilinogen Urine Negative (Negative); WBC Urine Automated 0-5 /hpf (0-5); pH Urine 6.5 (4.5-7.5)
--- NOTE | 2024-02-14 14:13 | History & Physical Report ---
Date of Service February 14, 2024 Assessment & Plan (1) Syncope: (2) Rectal bleeding: (3) Fall: (4) CAD (coronary artery disease): Plan: - Last echo from 11/06/22 showing LVEF of 55-59%, mildly increased LV wall thickness, left ventricular diastolic function is mildly abnormal. No valvular disease. - Repeat echo with syncopal episode but likely due to acute blood loss - [place] [facility] [place] [facility] [place], Dr. Hernandez - Blood loss of 2g compared to her baseline is noted -- hgb of 13.3 from 02/09/24 reviewed in [facility], as well as 13 in October. - CT imaging is negative for acute fractures but does show possible proctocolitis -may be adding to rectal bleeding - Concern for vaginal bleeding - check US vagina/uterus stat - r/o fistula. Will consult DIRECTOR OF PATIENT CARE. - Repeat H&H q6H, trend - On eliquis for hx of DVT/PE in 2014 - which will HOLD - Continue baby aspirin, statin therapy. antihypertensive medications as below - Check stool studies, c diff, r/o infectious source causing proctocolitis - GI consulted for possible intervention - PPI IV BID - Start Cipro/flagyl IV for GI abx coverage and downgrade as possible (5) Hypertension: Plan: -Home medications include: Metoprolol succinate 100 mg daily, Lasix 40 mg daily, spironolactone 25 mg daily - HOLD diuretics, allow beta blockade for morning. - Pt took all medications this morning -BP appears to be stable at 115/76, currently, monitor for signs of hypotension causing syncopal episodes (6) Dyslipidemia: Plan: -Chronic, stable May continue atorvastatin (7) Diabetes mellitus, type 2: Plan: -ISS with Accu-Cheks ACHS -Patient is on Ozempic, Trulance 3 mg daily (8) Chronic pain: Plan: -PDMP reviewed personally, patient is on oxycodone 5 mg every 4 hours as needed. She was called in a prescription for [address] Rosado who she has followed with with orthopedics on 02/07, today she would be out of her oxycodone. -It is unclear at this time if narcotic use has prompted worsening syncope - last dose was yesterday - IV MS for severe pain -Patient may continue pregabalin 25 mg daily DVT ppx: teds, scds Lines: 1 PIV FEN/GI: Clears, NPO at midnight CODE: Full Dispo: From home, likely to remain in the hospital x 1-2 days A total of 77 minutes were spent with greater than 50% of that time face to face with the patient, personally reviewing all current laboratories, imaging studies, past medication reconciliation, outpatient chart review, and discussion with specialists to collaborate care for the patient with attending. Please see attending documentation for corrections and/or additions. History of Present Illness Chief Complaint: Fall Primary Care Provider: Svetlana Jacobs DO This is a 74 yo F with PMHx chronic diastolic CHF, HTN, HLD, CAD, DVT Eliquis, DM type II, chronic pain syndrome, s/p R rotator cuff repair, GERD, bipolar 2 disorder, who presents to the hospital 1 day after she sustained a fall and syncope, with persistent lightheadedness and dizziness today. Presented with rectal and vaginal bleeding, on eliquis. BRBPR since her fall yesterday, and is concerned there is also vaginal bleeding. Pt reports that she noticed this yesterday, 3x yesterday it was coming out of the vagina "pouring out". She reports then she developed bleeding from her rectum. She was using pads that were soaked with blood, going through multiple pads at home yesterday. She states it has slowed down at this time and has changed 1 or 2 pads. Pt has followed with GI and has had colonoscopy and endoscopy in the past. She has not had any bleeding from vagina for many years. Pt feels chilled, denies any chest pain, shortness of breath. She has lower left quadrant abdominal pain currently which started yesterday with the bleeding. Pt admits to having watery explosive diarrhea 3x yesterday. Denies any undercooked foods, contaminated/spoiled foods. Pt has not had much to eat today. Tolerated clears. Took all her home medications this morning including BP med, diuretics, Eliquis and aspirin. Allergies Allergy/AdvReac Type Severity Reaction Status Date / Time latex Allergy Intermediate Rash Verified 02/01/24 10:08 nickel Allergy Intermediate SEVERE Verified 02/01/24 10:08 DERMATITIS, difficulty breathing adhesive tape AdvReac Intermediate SKIN Verified 02/01/24 10:08 IRRITATION aspirin AdvReac Intermediate full dose Verified 02/01/24 10:08 asa -> bleeding ulcers NSAIDS (Non-Steroidal AdvReac Intermediate HX OF Verified 02/01/24 10:08 Anti-Inflamma BLEEDING ULCERS-TO AVOID Home Medications Medication Instructions Recorded Confirmed Type atorvastatin 40 mg tablet (Lipitor) 40 mg PO QAM 12/13/18 02/14/24 History levothyroxine 75 mcg tablet 75 mcg PO QAM 12/13/18 02/14/24 History promethazine 25 mg tablet 25 mg PO Q6H PRN Nausea 05/12/19 02/14/24 History epinephrine 0.3 mg/0.3 mL 0.3 mg IM Q3H PRN Allergic Reaction 05/23/19 02/14/24 History injection syringe nitroglycerin 0.3 mg sublingual 0.3 mg sublingual UD PRN Chest Pain 05/23/19 02/14/24 History tablet (Nitrostat) olopatadine 0.2 % eye drops 1 drp ophthalmic (eye) QAM 05/23/19 02/14/24 History tizanidine 4 mg tablet 4 mg PO BID PRN Muscle Spasm 04/03/20 02/14/24 History trazodone 100 mg tablet 300 mg PO HS 04/03/20 02/14/24 History furosemide 20 mg tablet 40 mg PO QAM 10/05/20 02/14/24 History loperamide 2 mg capsule 2 mg PO QID PRN Diarrhea 02/15/21 02/14/24 History apixaban 5 mg tablet (Eliquis) 5 mg PO BID 10/11/21 02/14/24 History aspirin 81 mg tablet,delayed 81 mg PO QAM 01/20/23 02/14/24 History release metoprolol succinate 100 mg 100 mg PO QAM 01/20/23 02/14/24 History tablet,extended release 24 hr semaglutide 2 mg/dose (8 mg/3 mL) 2 mg subcut WK 01/20/23 02/14/24 History subcutaneous pen injector (Ozempic) spironolactone 25 mg tablet 25 mg PO QAM 01/20/23 02/14/24 History buspirone 10 mg tablet 10 mg PO BID 02/20/23 02/14/24 History plecanatide 3 mg tablet (Trulance) 3 mg PO QAM #90 tabs 06/11/23 02/14/24 Rx acetaminophen 500 mg tablet 1,000 mg (2 x 500 mg) PO Q8 PRN 07/12/23 02/14/24 Rx (Tylenol Extra Strength) pain #100 tabs ondansetron 4 mg disintegrating 4 mg PO Q6H PRN nausea and 10/26/23 02/14/24 Rx tablet vomiting #10 tabs pantoprazole 40 mg tablet,delayed 40 mg PO BID #60 tabs 12/21/23 02/14/24 Rx release pregabalin 25 mg capsule 25 mg PO .COMPLEX #90 caps 02/01/24 02/14/24 Rx oxycodone 5 mg tablet 5 mg PO Q6H PRN pain 02/14/24 02/14/24 History Past Med/Surg History Medical History Right shoulder pain Encounter for pre-operative examination Dilation of thoracic aorta mild per cardio; monitoring HOLLY (obstructive sleep apnea) noncompliant with CPAP per cardio note History of post-polio syndrome Orthostatic hypotension Barretts esophagus on protonix; follows with GI Intractable abdominal pain Cyclic vomiting syndrome Diabetes mellitus, type 2 06/26/23 Ha1c: 5.8% Hx of Clostridium difficile infection Remote hx History of COVID-19 10/2021 - treated inpatient at [facility]/Covid [facility] Chronic heart failure with preserved ejection fraction (HFpEF) EF 55-59% GI bleed Hx (declined AC d/t hx of GIB per records) CAD (coronary artery disease) 2 BMS to LAD (2016) Degenerative disc disease Hypothyroidism Anemia Post traumatic stress disorder Depression Anxiety Restless leg syndrome Migraine Hx, no recent issues Deep vein thrombosis ~2014, unknown cause Pulmonary embolism ~2014 (UNSURE OF REASON) Myocardial Infarction NSTEMI 2017; s/p 2 BMS to LAD Hypertension Hyperlipidemia Dyslipidemia Cervical spondylolysis Scoliosis Surgical History History of arthroscopy of right shoulder 10/23/23 ([facility]) Right shoulder arthroscopy, I&D of subacromial hematoma History of arthroscopy of right shoulder rt shoulder, 06/2023 History of colonoscopy History of esophagogastroduodenoscopy (EGD) History of back surgery has bilateral SI Joint replacements (~2020 at [facility]) S/P hardware removal removal of all back hardware (~2002) ROSENDA Archuleta History of vascular access device Left upper chest port (*not a power port*) History of cataract surgery LEFT AND RIGHT History of anesthesia reaction Awareness with spinal surgeries History of laminectomy and fusion "entire spine is fused(except cervical spine)" ROSENDA Archuleta (Dr Catherine) 1989' Fusion of spine LUMBAR History of appendectomy History of tonsillectomy History of adenoidectomy History of heart artery stent 2017-x2 STENTS PLACED AT [facility] (DR. DAVILA) H/O ovarian cystectomy x2 H/O repair of right rotator cuff H/O spinal fusion Multiple Family History Mother Hypertension Father Hypertension Other No family history of adverse response to anesthesia Social History Smoking Status: Never smoker Second Hand Exposure: No; Do You Dip or Chew Tobacco: No; Hx Alcohol Use: No Hx Substance Use: No Preferred Language: Ivorian Communication Ability: Effective Visual Impairment: Limited Hearing Ability: Normal Hot Roll Inspector Required: No Beliefs That Will Affect Care: None marital status: Current Living Situation: Alone current occupational status: retired How many Children do You have: 2 Feels Safe at Home: Yes Assistive Devices: Denture - Lower and Glasses Review of Systems Review of Systems: Constitutional: No fever, sweats or chills, + fatigue + weakness, + R headache Eyes: No diplopia, no worsening or blurred vision ENT: normal hearing, no trouble swallowing Respiratory: No cough, sputum, dyspnea at rest or on exertion Cardiovascular: No chest pain, tightness or palpitations Abdomen: LLQ pain with, nausea, vomiting, + diarrhea , no constipation Musculoskeletal: +chronic R shoulder joint pain, calf pain, swelling Neurologic: No weakness, numbness/tingling, or balance problems Psychiatric: No anxiety or depression Skin: No rash or itch Physical Exam Physical Exam: Please refer to attending addendum for physical exam. Results & Data Results & Data Vital Signs (Past 12 Hours) Vital Signs Temp Pulse Pulse Resp BP BP Pulse Ox 02/14/24 12:25 75 18 90 02/14/24 12:18 74 02/14/24 12:02 36.5 C 76 18 123/92 99 02/14/24 12:02 36.5 C 76 18 123/92 99 O2 Del Method 02/14/24 12:25 Room Air 02/14/24 12:18 02/14/24 12:02 Room Air 02/14/24 12:02 Room Air Laboratory Results 02/14/24 02/14/24 02/14/24 13:22 12:05 12:04 WBC 8.74 RBC 3.92 L Hgb 11.5 L Hct 34.7 L MCV 88.5 MCH 29.3 MCHC 33.1 RDW Std Deviation 45.1 RDW Coeff of [place] 14.1 Plt Count 268 MPV 10.2 Immature Gran % (Auto) 0.2 Neut % (Auto) 57.8 Lymph % (Auto) 31.6 Nolan % (Auto) 7.8 Eos % (Auto) 2.1 Baso % (Auto) 0.5 Neut # (Auto) 5.06 Lymph # (Auto) 2.76 Nolan # (Auto) 0.68 H Eos # (Auto) 0.18 Baso # (Auto) 0.04 Immature Gran # (Auto) 0.02 PT 12.0 INR 1.1 APTT 29 PTT Ratio 1.0 Sodium 137 Potassium 3.6 Chloride 102 Carbon Dioxide 26 Anion Gap 9 BUN 11 Creatinine 0.88 Est Cr Clr Drug Dosing 55.0 Est GFR ( Amer) 74.0 Est GFR (Non-Af Amer) 63.8 BUN/Creatinine Ratio 12.5 Glucose 144 H Calcium 8.9 Total Bilirubin 0.5 AST 20 ALT 15 Alkaline Phosphatase 88 Troponin I High Sens 3.5 Total Protein 6.2 Albumin 3.9 Globulin 2.3 L Albumin/Globulin Ratio 1.7 Urine Color Yellow Urine Appearance Clear Urine pH 6.5 Ur Specific [place] 1.011 Urine Protein Negative Urine Glucose (UA) Negative Urine Ketones Negative Urine Blood Negative Urine Nitrite Negative Urine Bilirubin Negative Urine Urobilinogen Negative Ur Leukocyte Esterase Trace H Urine WBC (Auto) 0-5 Urine RBC (Auto) 0-2 U Hyaline Cast (Auto) 3-5 H U Epithel Cells (Auto) 0-2 Urine Bacteria (Auto) None Seen Blood Type O Positive Antibody Screen NEGATIVE Diagnostic Findings Cervical Spine CT 02/14/24 12:[address] DOSE: HISTORY: Trauma TECHNIQUE: Multiaxial CT images of the cervical spine were performed and reformatted in the sagittal and coronal plane without the use of contrast. A dose lowering technique was utilized adhering to the principles of ALARA. COMPARISON: Cervical spine CT 04/15/2023. FINDINGS: No fractures. No subluxation. Prevertebral soft tissues and the C1-C2 interval are intact. No pneumothorax. [id number] degenerative changes again noted. IMPRESSION: No fractures within the cervical spine. ACT 112: Negative or not required by law. Electronically signed by: Bulmaro Zavaleta M.D. 02/14/2024 1:[address] 02/14/24 12:[address] DOSE: HISTORY: Trauma, fall on eliquis TECHNIQUE: Multiaxial CT images of the head were performed without the use of intravenous contrast. Automated exposure control was utilized for this study. A dose lowering technique was utilized adhering to the principles of ALARA. Comparison: Head CT 04/15/2023. Findings: The paranasal sinuses and mastoid air cells are clear. The calvarium and skull base are intact. The ventricles and sulci are within normal limits. There is no mass, hematoma, midline shift, or acute infarct. Impression: No acute intracranial abnormality. ACT 112: Negative or not required by law. Electronically signed by: Bulmaro Zavaleta M.D. 02/14/2024 1:33 PM Abdomen/Pelvis CT 02/14/24 12:[address] WITH IV CONTRAST CT DOSE: 2561.38 mGy.cm HISTORY: ab pain, rectal/vaginal bleeding, fall on eliquis TECHNIQUE: Multiaxial CT images of the abdomen and pelvis were performed following the use of intravenous contrast. A dose lowering technique was utilized adhering to the principles of ALARA. COMPARISON STUDY: Abdomen and pelvis CT 12/27/2023. FINDINGS: A few punctate calcified granulomas and subsegmental atelectasis seen within the lung bases. No pneumoperitoneum. No pneumatosis. Bilateral sacroiliac bolts are noted. No acute fractures identified. Extensive bony fusion within the thoracolumbar spine with remnants of old postoperative change. Partial resection of a a few left lateral ribs. Mild circumferential the distal esophagus, unchanged. This favors a mild esophagitis. The liver, gallbladder, pancreas, spleen, and adrenal glands unremarkable. Subcentimeter bilateral renal hypodense lesions are technically too small to characterize but favor cysts. Left-sided nephrolithiasis again noted. No ureteral stones. No hydronephrosis. The main portal vein is patent. Calcified plaque within the normal caliber abdominal aorta. No retroperitoneal or pelvic lymphadenopathy. No pelvic free fluid. The bladder is unremarkable. There is a 2 cm pedunculated uterine fibroid, unchanged. Mild circumferential thickening within the sigmoid colon and rectum with minimal pericolonic fat stranding at the sigmoid colon. This is consistent with a mild nonspecific proctocolitis. Colonic diverticulosis. No evidence for acute diverticulitis. No dilated loops of bowel to suggest an obstruction. IMPRESSION: 1. No acute traumatic process within the abdomen or pelvis. 2. Mild circumferential thickening of the sigmoid colon and rectum with mild pericolonic fat stranding at the mid sigmoid colon. This consistent with a nonspecific proctocolitis. This favors an infectious or inflammatory process. 3. Left-sided nephrolithiasis. No hydronephrosis. 4. Colonic diverticulosis. No evidence for acute diverticulitis. 5. Additional findings as described above. ACT 112: Negative or not required by law. Electronically signed by: Bulmaro Zavaleta M.D. 02/14/2024 1:31 PM Code Status & VTE Plan Code Status Full code - discussed with pt at bedside Supervising Physician Co-Signing Physician Notes Pt seen and examined by me, care coordinated w/ Freeman Osborne PA-C, pls refer to her note above for further detail. Pt is a 74 yo F with chronic diastolic CHF, HTN, HLD, CAD, DVT on Eliquis, DM type II, chronic pain syndrome, s/p R rotator cuff repair, GERD, bipolar 2 disorder, who presents to the hospital 1 day after she sustained a fall and syncope, with persistent lightheadedness and dizziness today. Presented with rectal and ? vaginal bleeding. Reports diarrhea x3 before having blood per rectum. BRBPR confirmed by ED doctor however pt feels certain she is having vaginal bleed as well. Currently laying in bed in NAD. She is awake, alert, able to answer appropriately. Reports lower abd. pain. No fever, chills, chest pain, shortness of breath, no nausea, or vomiting but + poor appetite. Lungs are CTAB. Heart sounds regular. Abdomen soft, no guarding but tender in lower abd. quadrants. No LE edema, moves extremities, skin is warm and dry. Stool studies ordered, lactate. H&H q6 hrs. hold eliquis. IV PPI, cipro + flagyl. GI consult. Will obtain pelvic US to eval vaginal bleed and will consult w/ Student Counselor. Cont. to closely monitor H&H and hemodynamic status. MD Geovani (1) Syncope Syncope type: unspecified Qualified Code(s): R55 - Syncope and collapse (3) Fall Encounter type: initial encounter Qualified Code(s): W19.XXXA - Unspecified fall, initial encounter
[2024-02-14] MEDS: ACETAMINOPHEN 1,000 MG/100 ML VIAL IV STA (14:40)
--- NOTE | 2024-02-14 14:41 | XRay Report ---
XR shoulder RT min 2V routine CLINICAL HISTORY: fall, pain COMPARISON STUDY: Right shoulder 10/19/2023. FINDINGS: The bones are osteopenic. No acute fracture or dislocation within the right shoulder. The r ight clavicle is intact. Mild widening of the AC joint is likely chronic. Narrowing of the subacromia l space consistent with chronic rotator cuff injury. IMPRESSION: No acute fracture or dislocation within the right shoulder. ACT 112: Negative or not required by law. Electronically signed by: Bulmaro Zavaleta M.D. 02/14/2024 2:39 PM
[2024-02-14] MEDS ORDERED: ACETAMINOPHEN 500 MG TAB PO PRN (15:14)
[2024-02-14] MEDS: CIPROFLOXACIN / D5W 400 MG/200 ML BAG IV SCH (15:35)
[2024-02-14] MEDS: MoRPHine SULFATE 4 MG/ML 1 ML CARP\\VIAL IV PRN (15:41)
[2024-02-14 16:37] LABS: Magnesium 1.6 mg/dl (1.7-2.4)
[2024-02-14] MEDS: PANTOprazole 40 MG in SYRINGE 0 ML IV SCH (16:41)
[2024-02-14 16:42] LABS: Phosphorus 3.6 mg/dl (2.5-4.9)
[2024-02-14] MEDS: metroNIDAZOLE 500 MG/100 ML BAG IV SCH (16:43)
[2024-02-14] MEDS ORDERED: DEXTROSE 50% 50 ML SYRINGE IV PRN (17:38)
[2024-02-14] MEDS ORDERED: GLUCOSE 10 TAB/TUBE PO PRN (17:38)
[2024-02-14] MEDS ORDERED: GLUCOSE 40% GEL 15 GM TUBE PO PRN (17:38)
[2024-02-14] MEDS ORDERED: GLUCAGON FOR INJ 1 MG VIAL SQ PRN (17:38)
[2024-02-14] MEDS ORDERED: CARBOHYDRATES FOR HYPOGLYCEMIA PO PRN (17:38)
[2024-02-14] MEDS: diphenhydrAMINE 50 MG/ML VIAL IV STA (18:05)
[2024-02-14] MEDS: INSULIN ASPART PER UNIT CHARGE SC SCH (18:06)
[2024-02-14] MEDS: SODIUM CHLORIDE 0.9% 1,000 ML IV SCH (18:06)
[2024-02-14 18:17] LABS: Hematocrit (blood only) 31.8 % (37.0-47.0); Hemoglobin 10.7 g/dl (12.0-16.0)
[2024-02-14 18:31] LABS: Adenovirus F 40/41 PCR Not Detected (NotDetected); Astrovirus PCR Not Detected (NotDetected); Campylobacter PCR Not Detected (NotDetected); Cryptosporidium PCR Not Detected (NotDetected); Cyclospora cayetanensis PCR Not Detected (NotDetected); Entamoeba histolytica PCR Not Detected (NotDetected); Enteroaggregative E.coli(EAEC) Not Detected (NotDetected); Enteropathogenic E.coli (EPEC) Not Detected (NotDetected); Enterotoxigenic E.coli (ETEC) Not Detected (NotDetected); Giardia lamblia PCR Not Detected (NotDetected); Norovirus GI/GII PCR Not Detected (NotDetected); Plesiomonas shigelloides PCR Not Detected (NotDetected); Rotavirus A PCR Not Detected (NotDetected); Salmonella PCR Not Detected (NotDetected); Sapovirus PCR Not Detected (NotDetected); Shiga-like Toxin E.coli (STEC) Not Detected (NotDetected); Shigella/Enteroinvasive E.coli Not Detected (NotDetected); Vibrio cholerae PCR Not Detected (NotDetected); Vibrio species PCR Not Detected (NotDetected); Yersinia enterocolitica PCR Not Detected (NotDetected)
[2024-02-14 18:51] LABS: Cdiff Toxin B Gene (2yr or >) Positive Cdiff Gene (Neg)
[2024-02-14 18:52] LABS: Cdiff Antigen Negative; Cdiff Toxin A+B Negative Cdiff Toxin (Negative)
--- NOTE | 2024-02-14 19:29 | OB/GYN Consultation ---
Date of Consultation February 14, 2024 Assessment & Plan (1) Postmenopausal bleeding: On exam no bleeding was noted, no signs of blood in the vagina, very unlikely that the bleeding was actually coming from her jet vagina due to the location on the pad, most likely was from her rectum Will follow-up on pelvic ultrasound. If they cannot ultrasound would recommend endometrial biopsy to be performed in the office outpatient History of Present Illness Reason for Consultation: ?vaginal bleeding Attending Physician: Tre Olivo MD History of Present Illness Patient is a pleasant 74-year-old G3, P3 postmenopausal female who was admitted to hospital service for follow-up after fall, syncope and ongoing bleeding. Patient is currently on Eliquis with multiple comorbidities. Patient states she had bleeding in her pad several hours ago in which it was more on the front of her pad so she believed it was vaginal bleeding. Went through menopause in her 50s but did explain she had an episode of postmenopausal bleeding at 61. Is followed with [facility] service at [facility]. Denies any further episodes of postmenopausal bleeding. The bleeding then continued to happen from her rectum as well in which there was a large amount of bleeding and she called her neighbor and explained that there was blood trailing down the hallway due to the amount of bleeding she had. She denies any pelvic discomfort, vaginal discharge. Allergies Allergy/AdvReac Type Severity Reaction Status Date / Time latex Allergy Intermediate Rash Verified 02/01/24 10:08 nickel Allergy Intermediate SEVERE Verified 02/01/24 10:08 DERMATITIS, difficulty breathing adhesive tape AdvReac Intermediate SKIN Verified 02/01/24 10:08 IRRITATION aspirin AdvReac Intermediate full dose Verified 02/01/24 10:08 asa -> bleeding ulcers NSAIDS (Non-Steroidal AdvReac Intermediate HX OF Verified 02/01/24 10:08 Anti-Inflamma BLEEDING ULCERS-TO AVOID Home Medications Medication Instructions Recorded Confirmed Type atorvastatin 40 mg tablet (Lipitor) 40 mg PO QAM 12/13/18 02/14/24 History levothyroxine 75 mcg tablet 75 mcg PO QAM 12/13/18 02/14/24 History promethazine 25 mg tablet 25 mg PO Q6H PRN Nausea 05/12/19 02/14/24 History epinephrine 0.3 mg/0.3 mL 0.3 mg IM Q3H PRN Allergic Reaction 05/23/19 02/14/24 History injection syringe nitroglycerin 0.3 mg sublingual 0.3 mg sublingual UD PRN Chest Pain 05/23/19 02/14/24 History tablet (Nitrostat) olopatadine 0.2 % eye drops 1 drp ophthalmic (eye) QAM 05/23/19 02/14/24 History tizanidine 4 mg tablet 4 mg PO BID PRN Muscle Spasm 04/03/20 02/14/24 History trazodone 100 mg tablet 300 mg PO HS 04/03/20 02/14/24 History furosemide 20 mg tablet 40 mg PO QAM 10/05/20 02/14/24 History loperamide 2 mg capsule 2 mg PO QID PRN Diarrhea 02/15/21 02/14/24 History apixaban 5 mg tablet (Eliquis) 5 mg PO BID 10/11/21 02/14/24 History aspirin 81 mg tablet,delayed 81 mg PO QAM 01/20/23 02/14/24 History release metoprolol succinate 100 mg 100 mg PO QAM 01/20/23 02/14/24 History tablet,extended release 24 hr semaglutide 2 mg/dose (8 mg/3 mL) 2 mg subcut WK 01/20/23 02/14/24 History subcutaneous pen injector (Ozempic) spironolactone 25 mg tablet 25 mg PO QAM 01/20/23 02/14/24 History buspirone 10 mg tablet 10 mg PO BID 02/20/23 02/14/24 History plecanatide 3 mg tablet (Trulance) 3 mg PO QAM #90 tabs 06/11/23 02/14/24 Rx acetaminophen 500 mg tablet 1,000 mg (2 x 500 mg) PO Q8 PRN 07/12/23 02/14/24 Rx (Tylenol Extra Strength) pain #100 tabs ondansetron 4 mg disintegrating 4 mg PO Q6H PRN nausea and 10/26/23 02/14/24 Rx tablet vomiting #10 tabs pantoprazole 40 mg tablet,delayed 40 mg PO BID #60 tabs 12/21/23 02/14/24 Rx release pregabalin 25 mg capsule 25 mg PO .COMPLEX #90 caps 02/01/24 02/14/24 Rx oxycodone 5 mg tablet 5 mg PO Q6H PRN pain 02/14/24 02/14/24 History Patient History Medical History Right shoulder pain Encounter for pre-operative examination Dilation of thoracic aorta mild per cardio; monitoring HOLLY (obstructive sleep apnea) noncompliant with CPAP per cardio note History of post-polio syndrome Orthostatic hypotension Barretts esophagus on protonix; follows with GI Intractable abdominal pain Cyclic vomiting syndrome Diabetes mellitus, type 2 06/26/23 Ha1c: 5.8% Hx of Clostridium difficile infection Remote hx History of COVID-19 10/2021 - treated inpatient at [facility]/Covid PNA Chronic heart failure with preserved ejection fraction (HFpEF) EF 55-59% GI bleed Hx (declined AC d/t hx of GIB per records) CAD (coronary artery disease) 2 BMS to LAD (2016) Degenerative disc disease Hypothyroidism Anemia Post traumatic stress disorder Depression Anxiety Restless leg syndrome Migraine Hx, no recent issues Deep vein thrombosis ~2014, unknown cause Pulmonary embolism ~2014 (UNSURE OF REASON) Myocardial Infarction NSTEMI 2016; s/p 2 BMS to LAD Hypertension Hyperlipidemia Dyslipidemia Cervical spondylolysis Scoliosis Surgical History History of arthroscopy of right shoulder 10/23/23 ([facility]) Right shoulder arthroscopy, I&D of subacromial hematoma History of arthroscopy of right shoulder rt shoulder, 06/2023 History of colonoscopy History of esophagogastroduodenoscopy (EGD) History of back surgery has bilateral SI Joint replacements (~2020 at [facility]) S/P hardware removal removal of all back hardware (~2002) [facility] History of vascular access device Left upper chest port (*not a power port*) History of cataract surgery LEFT AND RIGHT History of anesthesia reaction Awareness with spinal surgeries History of laminectomy and fusion "entire spine is fused(except cervical spine)" [facility] [place] (Dr Catherine) 1989' Fusion of spine LUMBAR History of appendectomy History of tonsillectomy History of adenoidectomy History of heart artery stent 2017-x2 STENTS PLACED AT [facility] (DR. 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 Insight Required: No Beliefs That Will Affect Care: None marital status: Current Living Situation: Alone current occupational status: retired How many Children do You have: 2 Other Information That Helps Us Care for You: No Feels Safe at Home: Yes Safety Concerns: Feels Safe At This Time Assistive Devices: None Review of Systems Review of Systems: All systems reviewed & are unremarkable except as noted in HPI & below Physical Exam Constitutional: WD/WN, vitals as above Respiratory: normal respiratory effort, lungs clear to auscultation Cardiovascular: RRR, no murmur, no edema Gastrointestinal (Abdomen): normal bowel sounds, soft, nontender, no hepatosplenomegaly Genitourinary: Offered protective services social worker, patient refused External genitalia: Atrophic Vagina: Atrophic, no masses or lesions seen, no blood in the vagina Cervix: Atrophic, no masses or lesions seen, no obvious blood coming from the cervix Bimanual exam: Nontender, no masses felt Results & Data Vital Signs (Past 12 Hours) Vital Signs Temp Pulse Pulse Resp BP BP Pulse Ox 02/14/24 18:16 36.5 C 85 16 87/58 L 98 02/14/24 17:00 36.9 C 73 19 108/70 98 02/14/24 15:40 36.7 C 74 19 137/86 95 02/14/24 14:00 73 17 115/76 97 02/14/24 12:25 75 18 90 02/14/24 12:18 74 02/14/24 12:02 36.5 C 76 18 123/92 99 02/14/24 12:02 36.5 C 76 18 123/92 99 O2 Del Method 02/14/24 18:16 Room Air 02/14/24 17:00 Room Air 02/14/24 15:40 Room Air 02/14/24 14:00 Room Air 02/14/24 12:25 Room Air 02/14/24 12:18 02/14/24 12:02 Room Air 02/14/24 12:02 Room Air
[2024-02-14] MEDS: PREGABALIN 25 MG CAP PO SCH (20:37)
[2024-02-14] MEDS: traZODone HCL 100 MG TAB PO SCH (20:37)
[2024-02-14] MEDS: cefTRIAXone SODIUM 2,000 MG/50 ML BAG IV SCH (20:37)
[2024-02-14] MEDS: busPIRone 5 MG TAB PO SCH (20:38)
[2024-02-14] MEDS ORDERED: PANTOprazole 40 MG TAB PO SCH (21:00)
--- NOTE | 2024-02-14 21:45 | Ultrasound Report ---
Exam(s): US PELVIS EXAM: US Pelvis Transabdominal and Transvaginal, Complete CLINICAL HISTORY: R/o uterine bleed. TECHNIQUE: Real-time complete transabdominal and transvaginal pelvic ultrasound with image documentation. Transvaginal imaging was used for better evaluation of the endometrium and adnexa. COMPARISON: No relevant prior studies available. FINDINGS: Uterus/cervix: The uterus measures 5.7 x 3 x 3.9 cm. There is a partially pedunculated rounded heterogeneously echogenic mass extending from the anterior uterine fundus measuring 1.5 x 1.8 cm with internal vascular flow. The endometrial stripe measures only 1.7 mm. No increased vascular flow noted. No fluid in the endometrial canal. Right ovary: The right ovary measures 1.7 x 0.6 x 1.2 cm. Internal vascular flow noted. Normal blood flow. Left ovary: Left ovary measures 1.1 x 1.5 x 1 cm. Internal vascular flow. Normal blood flow. Free fluid: No free fluid. Bladder: Unremarkable as visualized. Wall is normal thickness for degree of distention. IMPRESSION: 1. The endometrial stripe measures only 1.7 mm. No increased vascular flow noted. No fluid in the endometrial canal. 2. Pedunculated fibroid extending from the anterior fundus measuring 1.5 x 1.8 cm. 3. The ovaries are unremarkable without evidence for torsion. Electronically signed by: Kuldip Arevalo MD 02/14/24 21:44 PM
[2024-02-14 23:34] LABS: Hematocrit (blood only) 27.2 % (37.0-47.0); Hemoglobin 9.1 g/dl (12.0-16.0)
[2024-02-15 04:48] LABS: Hematocrit (blood only) 26.1 % (37.0-47.0); Hemoglobin 8.7 g/dl (12.0-16.0); Mean Corpuscular Hemoglobin 29.6 pg (25.0-34.0); Mean Corpuscular Hgb Conc 33.3 g/dL (32.0-36.0); Mean Corpuscular Volume 88.8 fL (80.0-100.0); Mean Platelet Volume 9.6 fL (9.4-12.4); Platelet Count 193 K/uL (130-400); RDW Standard Deviation 45.3 fL (36.4-46.3); Red Blood Count 2.94 M/uL (4.20-5.40); White Blood Count 5.65 K/ul (4.8-10.8)
[2024-02-15 05:03] LABS: Albumin Globulin Ratio 1.8 (0.9-2); Albumin Level 3.1 gm/dl (3.4-5.0); BUN Creatinine Ratio 9.8 (10-20); Bilirubin,Total 0.3 mg/dl (0.2-1.0); Calcium 7.8 mg/dl (8.6-10.3); Creatinine Clr Calc Pharmacy 79.3 ml/min; Est GFR (African American) 102.1 ml/min; Est GFR (Non-African American) 88.1 ml/min; Globulin 1.7 gm/dl (2.5-4.0); Magnesium 1.5 mg/dl (1.7-2.4); Potassium 3.1 mmol/L (3.5-5.1); Total Protein 4.8 gm/dl (6.0-8.3)
[2024-02-15] MEDS: LEVOTHYROXINE SODIUM 75 MCG TABLET PO SCH (05:23)
[2024-02-15 07:22] LABS: Estimated Average Glucose 123 mg/dl; Hemoglobin A1C 5.9 % (4.5-5.6)
[2024-02-15] MEDS: ASPIRIN 81 MG ECTAB PO SCH (08:01)
[2024-02-15] MEDS: POTASSIUM CHLORIDE CRTAB 20 MEQ TABCR PO STA (08:16)
[2024-02-15] MEDS: ATORVASTATIN 40 MG TAB PO SCH (08:19)
[2024-02-15] MEDS ORDERED: SODIUM CHLORIDE 0.9% 250 ML IV PRN (08:19)
[2024-02-15] MEDS: METOPROLOL SUCC 50MG EXT REL TAB PO SCH (08:19)
--- NOTE | 2024-02-15 08:37 | Hospitalist Progress Note ---
Date of Service February 15, 2024 Assessment & Plan (1) Syncope: (2) Rectal bleeding: (3) Fall: (4) CAD (coronary artery disease): Plan: - Last echo from 11/06/22 showing LVEF of 55-59%, mildly increased LV wall thickness, left ventricular diastolic function is mildly abnormal. No valvular disease. - Repeat echo with syncopal episode but likely due to acute blood loss - Follow with [facility] as outpt, Dr. Hernandez - Blood loss of 2g compared to her baseline is noted -- hgb of 13.3 from 02/09/24 reviewed in [facility], as well as 13 in October. - CT imaging with possible proctocolitis - Concern for vaginal bleeding - check US vagina/uterus - 1. The endometrial stripe measures only 1.7 mm. No increased vascular flow noted. No fluid in the endometrial canal. 2. Pedunculated fibroid extending from the anterior fundus measuring 1.5 x 1.8 cm. 3. The ovaries are unremarkable without evidence for torsion. [employer] consulted- per their exam - does not seem like vaginal bleed and awaiting pelvis US - Repeat H&H q6H, trend - this AM Hgb 8.7 - blood consent obtained - will transfuse 1 unit of pRBC - On eliquis for hx of DVT/PE in 2014 - HOLD , also hold ASA - Continue statin therapy. antihypertensive medications as below - Check stool studies obtained - per RN stool sample was grossly blood, c diff gene positive - will start PO vancomycin, rest of stool pcr negative. Will hold other abx for now and will discuss with GI - GI consulted for possible intervention - PPI IV BID - Started Cipro/flagyl IV on admission - developed rash with cipro and received benadryl. switched to ceftriaxone w/ flagyl. Will hold cef for now until further discussing w/ GI (5) Hypertension: Plan: -Home medications include: Metoprolol succinate 100 mg daily, Lasix 40 mg daily, spironolactone 25 mg daily - HOLD diuretics, allow beta blockade for morning. - Pt took all medications the morning of admission -BP appears to be stable at 115/76, currently, monitor for signs of hypotension causing syncopal episodes (6) Dyslipidemia: Plan: -Chronic, stable May continue atorvastatin (7) Diabetes mellitus, type 2: Plan: -ISS with Accu-Cheks ACHS -Patient is on Ozempic, Trulance 3 mg daily (8) Chronic pain: Plan: -PDMP reviewed personally, patient is on oxycodone 5 mg every 4 hours as needed. She was called in a prescription for [address] Rosado who she has followed with with orthopedics on 02/07, today she would be out of her oxycodone. -It is unclear at this time if narcotic use has prompted worsening syncope - last dose was yesterday - IV MS for severe pain -Patient may continue pregabalin 25 mg daily DVT ppx: teds, scds Lines: 1 PIV FEN/GI: Clears, NPO since midnight CODE: Full Admission and Anticipated Discharge Date Admission Date: February 14, 2024 Subjective Pt seen in follow up GI bleed, pt also concerned she is having vaginal bleed GI and Professor Scul[employer] consulted Per ED nurse pt had bloody BM - consisted from blood mostly - which was sent for pcr - positive only for c. diff gene Pt was started on antibiotics on admission, will order PO vanco now and will further discuss with GI Hgb is trending down, blood consent obtained - will transfuse 1 unit Pt states she continues to have abd. pain but it's controlled with pain meds, she feels weak and little lightheaded. Says she had some more bleeding overnight but in much less amount. Review of Systems Review of Systems: All systems reviewed & are unremarkable except as noted in Subjective Physical Exam Physical Exam: Constitutional: WD/WN F in NAD HEENT: NC/AT, EOMI Respiratory: CTAB Cardiovascular: RRR Abdomen: + tenderness in lower abd. quadrants, soft, + bowel sounds Musculoskeletal: +chronic R shoulder pain, moves extremities Neurologic: awake, alert, answers appropriately, no facial asymmetry, moves extremities Skin: warm, dry Results & Data Results & Data Vital Signs (Past 12 Hours) Vital Signs Temp Pulse Pulse Pulse Resp BP Pulse Ox 02/15/24 07:54 36.7 C 77 16 100/62 94 02/15/24 04:02 70 02/15/24 03:43 36.6 C 72 20 98/63 L 93 02/15/24 00:05 36.3 C L 73 18 92/58 L 94 O2 Del Method 02/15/24 07:54 Room Air 02/15/24 04:02 02/15/24 03:43 Room Air 02/15/24 00:05 Room Air Laboratory Results 02/15/24 02/14/24 02/14/24 Range/Units 04:25 23:08 20:39 WBC 5.65 (4.8-10.8) K/ul RBC 2.94 L (4.20-5.40) M/uL Hgb 8.7 L 9.1 L (12.0-16.0) g/dl Hct 26.1 L 27.2 L (37.0-47.0) % MCV 88.8 (80.0-100.0) fL MCH 29.6 (25.0-34.0) pg MCHC 33.3 (32.0-36.0) g/dL RDW Std Deviation 45.3 (36.4-46.3) fL RDW Coeff of [place] 14.0 (11.5-14.5) % Plt Count 193 (130-400) K/uL MPV 9.6 (9.4-12.4) fL Immature Gran % (Auto) % Neut % (Auto) % Lymph % (Auto) % Spink % (Auto) % Eos % (Auto) % Baso % (Auto) % Neut # (Auto) (1.40-6.50) K/uL Lymph # (Auto) (1.20-3.40) K/uL Spink # (Auto) (0.11-0.59) K/uL Eos # (Auto) (0.00-0.50) K/uL Baso # (Auto) (0.00-0.20) K/uL Immature Gran # (Auto) (0.01-0.20) K/uL PT (9.0-12.0) Seconds INR (0.9-1.1) APTT (21-31) Seconds PTT Ratio Sodium 138 (136-145) mmol/L Potassium 3.1 L (3.5-5.1) mmol/L Chloride 106 (98-107) mmol/L Carbon Dioxide 29 (21-32) mmol/L Anion Gap 3 (3-11) BUN 6 (6-23) mg/dl Creatinine 0.61 (0.6-1.2) mg/dl Est Cr Clr Drug Dosing 79.3 ml/min Est GFR ( Amer) 102.1 ml/min Est GFR (Non-Af Amer) 88.1 ml/min BUN/Creatinine Ratio 9.8 L (10-20) Glucose 106 H (70-99(Fasting)) mg/dl POC Glucose 115 H (70-99) mg/dl Estimat Average Glucose 123 mg/dl Hemoglobin A1c 5.9 H (4.5-5.6) % Lactate (0.4-2.0) mmol/L Calcium 7.8 L (8.6-10.3) mg/dl Phosphorus 4.0 (2.5-4.9) mg/dl Magnesium 1.5 L (1.7-2.4) mg/dl Total Bilirubin 0.3 (0.2-1.0) mg/dl AST 14 (13-39) U/L ALT 11 (7-52) U/L Alkaline Phosphatase 66 (34-104) U/L Troponin I High Sens (0-14) pg/ml Total Protein 4.8 L D (6.0-8.3) gm/dl Albumin 3.1 L (3.4-5.0) gm/dl Globulin 1.7 L (2.5-4.0) gm/dl Albumin/Globulin Ratio 1.8 (0.9-2) Urine Color Urine Appearance (Clear) Urine pH (4.5-7.5) Ur Specific [place] (1.000-1.030) Urine Protein (Negative) Urine Glucose (UA) (Negative) Urine Ketones (Negative) Urine Blood (Negative) Urine Nitrite (Negative) Urine Bilirubin (Negative) Urine Urobilinogen (Negative) Ur Leukocyte Esterase (Negative) Urine WBC (Auto) (0-5) /hpf Urine RBC (Auto) (0-2) /hpf U Hyaline Cast (Auto) (0-2) /lpf U Epithel Cells (Auto) (0-2) /hpf Urine Bacteria (Auto) (None Seen) Stl C. cayetanensis PCR (NotDetected) Stool Rotavirus A PCR (NotDetected) Stl Adenov F 40/41 PCR (NotDetected) Stool Astrovirus (PCR) (NotDetected) Stool Campylobacter PCR (NotDetected) Stl C. diff Tox B Gene (Neg) Stl C.difficile Tox A&B (Negative) Stool Cryptosporidium PCR (NotDetected) Stl E.coli Shiga Tox PCR (NotDetected) Stl Enterotoxigenic E PCR (NotDetected) Stool EPEC (PCR) (NotDetected) Stool EAEC (PCR) (NotDetected) Stl E. histolytica PCR (NotDetected) Stool Giardia Lamblia PCR (NotDetected) Stool Salmonella PCR (NotDetected) Stool Sapovirus (PCR) (NotDetected) Stl P. shigelloides PCR (NotDetected) Stl Shigella/EIEC PCR (NotDetected) St Y.enterocolitica PCR (NotDetected) Stool Vibrio (PCR) (NotDetected) Stl Vibrio cholerae PCR (NotDetected) Stl Norovirus GI/GII PCR (NotDetected) Blood Type Antibody Screen 02/14/24 02/14/24 02/14/24 Range/Units 20:27 17:51 16:47 WBC (4.8-10.8) K/ul RBC (4.20-5.40) M/uL Hgb 10.7 L (12.0-16.0) g/dl Hct 31.8 L (37.0-47.0) % MCV (80.0-100.0) fL MCH (25.0-34.0) pg MCHC (32.0-36.0) g/dL RDW Std Deviation (36.4-46.3) fL RDW Coeff of Arden (11.5-14.5) % Plt Count (130-400) K/uL MPV (9.4-12.4) fL Immature Gran % (Auto) % Neut % (Auto) % Lymph % (Auto) % Spink % (Auto) % Eos % (Auto) % Baso % (Auto) % Neut # (Auto) (1.40-6.50) K/uL Lymph # (Auto) (1.20-3.40) K/uL Spink # (Auto) (0.11-0.59) K/uL Eos # (Auto) (0.00-0.50) K/uL Baso # (Auto) (0.00-0.20) K/uL Immature Gran # (Auto) (0.01-0.20) K/uL PT (9.0-12.0) Seconds INR (0.9-1.1) APTT (21-31) Seconds PTT Ratio Sodium (136-145) mmol/L Potassium (3.5-5.1) mmol/L Chloride (98-107) mmol/L Carbon Dioxide (21-32) mmol/L Anion Gap (3-11) BUN (6-23) mg/dl Creatinine (0.6-1.2) mg/dl Est Cr Clr Drug Dosing ml/min Est GFR ( Amer) ml/min Est GFR (Non-Af Amer) ml/min BUN/Creatinine Ratio (10-20) Glucose (70-99(Fasting)) mg/dl POC Glucose (70-99) mg/dl Estimat Average Glucose mg/dl Hemoglobin A1c (4.5-5.6) % Lactate 1.1 2.3 H* (0.4-2.0) mmol/L Calcium (8.6-10.3) mg/dl Phosphorus (2.5-4.9) mg/dl Magnesium (1.7-2.4) mg/dl Total Bilirubin (0.2-1.0) mg/dl AST (13-39) U/L ALT (7-52) U/L Alkaline Phosphatase (34-104) U/L Troponin I High Sens (0-14) pg/ml Total Protein (6.0-8.3) gm/dl Albumin (3.4-5.0) gm/dl Globulin (2.5-4.0) gm/dl Albumin/Globulin Ratio (0.9-2) Urine Color Urine Appearance (Clear) Urine pH (4.5-7.5) Ur Specific [place] (1.000-1.030) Urine Protein (Negative) Urine Glucose (UA) (Negative) Urine Ketones (Negative) Urine Blood (Negative) Urine Nitrite (Negative) Urine Bilirubin (Negative) Urine Urobilinogen (Negative) Ur Leukocyte Esterase (Negative) Urine WBC (Auto) (0-5) /hpf Urine RBC (Auto) (0-2) /hpf U Hyaline Cast (Auto) (0-2) /lpf U Epithel Cells (Auto) (0-2) /hpf Urine Bacteria (Auto) (None Seen) Stl C. cayetanensis PCR Not Detected (NotDetected) Stool Rotavirus A PCR Not Detected (NotDetected) Stl Adenov F 40/41 PCR Not Detected (NotDetected) Stool Astrovirus (PCR) Not Detected (NotDetected) Stool Campylobacter PCR Not Detected (NotDetected) Stl C. diff Tox B Gene Positive Cdiff Gene H (Neg) Stl C.difficile Tox A&B Negative Cdiff Toxin (Negative) Stool Cryptosporidium PCR Not Detected (NotDetected) Stl E.coli Shiga Tox PCR Not Detected (NotDetected) Stl Enterotoxigenic E PCR Not Detected (NotDetected) Stool EPEC (PCR) Not Detected (NotDetected) Stool EAEC (PCR) Not Detected (NotDetected) Stl E. histolytica PCR Not Detected (NotDetected) Stool Giardia Lamblia PCR Not Detected (NotDetected) Stool Salmonella PCR Not Detected (NotDetected) Stool Sapovirus (PCR) Not Detected (NotDetected) Stl P. shigelloides PCR Not Detected (NotDetected) Stl Shigella/EIEC PCR Not Detected (NotDetected) St Y.enterocolitica PCR Not Detected (NotDetected) Stool Vibrio (PCR) Not Detected (NotDetected) Stl Vibrio cholerae PCR Not Detected (NotDetected) Stl Norovirus GI/GII PCR Not Detected (NotDetected) Blood Type Antibody Screen 02/14/24 02/14/24 02/14/24 Range/Units 13:22 12:05 12:04 WBC 8.74 (4.8-10.8) K/ul RBC 3.92 L (4.20-5.40) M/uL Hgb 11.5 L (12.0-16.0) g/dl Hct 34.7 L (37.0-47.0) % MCV 88.5 (80.0-100.0) fL MCH 29.3 (25.0-34.0) pg MCHC 33.1 (32.0-36.0) g/dL RDW Std Deviation 45.1 (36.4-46.3) fL RDW Coeff of Arden 14.1 (11.5-14.5) % Plt Count 268 (130-400) K/uL MPV 10.2 (9.4-12.4) fL Immature Gran % (Auto) 0.2 % Neut % (Auto) 57.8 % Lymph % (Auto) 31.6 % Spink % (Auto) 7.8 % Eos % (Auto) 2.1 % Baso % (Auto) 0.5 % Neut # (Auto) 5.06 (1.40-6.50) K/uL Lymph # (Auto) 2.76 (1.20-3.40) K/uL Spink # (Auto) 0.68 H (0.11-0.59) K/uL Eos # (Auto) 0.18 (0.00-0.50) K/uL Baso # (Auto) 0.04 (0.00-0.20) K/uL Immature Gran # (Auto) 0.02 (0.01-0.20) K/uL PT 12.0 (9.0-12.0) Seconds INR 1.1 (0.9-1.1) APTT 29 (21-31) Seconds PTT Ratio 1.0 Sodium 137 (136-145) mmol/L Potassium 3.6 (3.5-5.1) mmol/L Chloride 102 (98-107) mmol/L Carbon Dioxide 26 (21-32) mmol/L Anion Gap 9 (3-11) BUN 11 (6-23) mg/dl Creatinine 0.88 (0.6-1.2) mg/dl Est Cr Clr Drug Dosing 55.0 ml/min Est GFR ( Amer) 74.0 ml/min Est GFR (Non-Af Amer) 63.8 ml/min BUN/Creatinine Ratio 12.5 (10-20) Glucose 144 H (70-99(Fasting)) mg/dl POC Glucose (70-99) mg/dl Estimat Average Glucose mg/dl Hemoglobin A1c (4.5-5.6) % Lactate (0.4-2.0) mmol/L Calcium 8.9 (8.6-10.3) mg/dl Phosphorus 3.6 (2.5-4.9) mg/dl Magnesium 1.6 L (1.7-2.4) mg/dl Total Bilirubin 0.5 (0.2-1.0) mg/dl AST 20 (13-39) U/L ALT 15 (7-52) U/L Alkaline Phosphatase 88 (34-104) U/L Troponin I High Sens 3.5 (0-14) pg/ml Total Protein 6.2 (6.0-8.3) gm/dl Albumin 3.9 (3.4-5.0) gm/dl Globulin 2.3 L (2.5-4.0) gm/dl Albumin/Globulin Ratio 1.7 (0.9-2) Urine Color Yellow Urine Appearance Clear (Clear) Urine pH 6.5 (4.5-7.5) Ur Specific [place] 1.011 (1.000-1.030) Urine Protein Negative (Negative) Urine Glucose (UA) Negative (Negative) Urine Ketones Negative (Negative) Urine Blood Negative (Negative) Urine Nitrite Negative (Negative) Urine Bilirubin Negative (Negative) Urine Urobilinogen Negative (Negative) Ur Leukocyte Esterase Trace H (Negative) Urine WBC (Auto) 0-5 (0-5) /hpf Urine RBC (Auto) 0-2 (0-2) /hpf U Hyaline Cast (Auto) 3-5 H (0-2) /lpf U Epithel Cells (Auto) 0-2 (0-2) /hpf Urine Bacteria (Auto) None Seen (None Seen) Stl C. cayetanensis PCR (NotDetected) Stool Rotavirus A PCR (NotDetected) Stl Adenov F 40/41 PCR (NotDetected) Stool Astrovirus (PCR) (NotDetected) Stool Campylobacter PCR (NotDetected) Stl C. diff Tox B Gene (Neg) Stl C.difficile Tox A&B (Negative) Stool Cryptosporidium PCR (NotDetected) Stl E.coli Shiga Tox PCR (NotDetected) Stl Enterotoxigenic E PCR (NotDetected) Stool EPEC (PCR) (NotDetected) Stool EAEC (PCR) (NotDetected) Stl E. histolytica PCR (NotDetected) Stool Giardia Lamblia PCR (NotDetected) Stool Salmonella PCR (NotDetected) Stool Sapovirus (PCR) (NotDetected) Stl P. shigelloides PCR (NotDetected) Stl Shigella/EIEC PCR (NotDetected) St Y.enterocolitica PCR (NotDetected) Stool Vibrio (PCR) (NotDetected) Stl Vibrio cholerae PCR (NotDetected) Stl Norovirus GI/GII PCR (NotDetected) Blood Type O Positive Antibody Screen NEGATIVE Medications Administered Current Inpatient Medications Acetaminophen (Acetaminophen 500 Mg Tab) 1,000 mg PO Q8 PRN PRN Reason: Mild Pain (Scale 1, 2, 3) Stop: 03/15/24 15:13 Acetaminophen (Acetaminophen 325 Mg Tab) 650 mg PO Q4H PRN PRN Reason: Moderate Pain (Scale 4, 5, 6) Stop: 03/15/24 17:37 Aspirin (Aspirin 81 Mg Ectab) 81 mg PO QAM [facility] Stop: 03/16/24 08:59 Last Admin: 02/15/24 08:01 Dose: Not Given Atorvastatin Calcium (Atorvastatin 40 Mg Tab) 40 mg PO QAM [facility] Stop: 03/16/24 08:59 Last Admin: 02/15/24 08:19 Dose: 40 mg Buspirone HCl (Buspirone 5 Mg Tab) 10 mg PO BID [facility] Stop: 03/15/24 20:59 Last Admin: 02/15/24 08:19 Dose: 10 mg Rivas Syrup (Rivas Syrup 5 Ml Udp) 5 ml PO Q6 [facility] Stop: 02/25/24 07:44 Dextrose (Dextrose 50% 50 Ml Syringe) 25 - 50 ml IV UD PRN; Protocol PRN Reason: Hypoglycemia Protocol Stop: 03/15/24 17:37 Glucagon (Glucagon For Inj 1 Mg Vial) 1 mg SQ UD PRN; Protocol PRN Reason: Hypoglycemia Protocol Stop: 03/15/24 17:37 Glucose (Glucose 40% Gel 15 Gm Tube) 15 - 30 gm PO UD PRN; Protocol PRN Reason: Hypoglycemia Protocol Stop: 03/15/24 17:37 Glucose (Glucose 10 Tab/Tube) 4 - 8 tab PO UD PRN; Protocol PRN Reason: Hypoglycemia Treatment Stop: 03/15/24 17:37 Pantoprazole Sodium 40 mg/ (Syringe) 10 mls @ 5 mls/min IV BID [facility] Stop: 03/15/24 14:59 Last Admin: 02/15/24 08:20 Dose: 5 mls/min Ciprofloxacin (Cipro / D5w) 400 mg in 200 mls @ 100 mls/hr IV Q12H COLT; Protocol Stop: 02/24/24 15:59 Last Infusion: 02/15/24 04:57 Dose: Infused Metronidazole (Flagyl) 500 mg in 100 mls @ 100 mls/hr IV Q8H [facility]; Protocol Stop: 02/24/24 15:59 Last Admin: 02/15/24 08:18 Dose: 100 mls/hr Sodium Chloride (Nss) 1,000 mls @ 125 mls/hr IV .Q8H [facility] Stop: 03/15/24 17:29 Last Admin: 02/15/24 00:09 Dose: 125 mls/hr Ceftriaxone Sodium (Rocephin) 2,000 mg in 50 mls @ 100 mls/hr IV Q24H [facility] Stop: 02/24/24 18:59 Last Infusion: 02/14/24 21:17 Dose: Infused Sodium Chloride (Nss) 250 mls @ 15 mls/hr IV .[id number] PRN PRN Reason: For Transfusion Duration Stop: 02/15/24 18:19 Insulin Aspart (Insulin Aspart Per Unit Charge) 0 units SC ACHS [facility] Stop: 03/15/24 17:37 Last Admin: 02/15/24 08:19 Dose: Not Given Levothyroxine Sodium (Levothyroxine Sodium 75 Mcg Tablet) 75 mcg PO DAILYBB [facility] Stop: 03/16/24 06:29 Last Admin: 02/15/24 05:23 Dose: 75 mcg Metoprolol Succinate (Metoprolol Succ 50mg Ext Rel Tab) 100 mg PO QAM [facility] Stop: 03/16/24 08:59 Last Admin: 02/15/24 08:19 Dose: 100 mg Miscellaneous (Olopatadine 0.2 % Drops: Order Awaiting Action) 1 each N/A QS [facility] Stop: 03/16/24 00:00 Last Admin: 02/15/24 08:18 Dose: Not Given Miscellaneous (Trulance Tab: Order Awaiting Action) 1 each N/A QS [facility] Stop: 03/16/24 00:00 Last Admin: 02/15/24 08:18 Dose: Not Given Miscellaneous (Carbohydrates For Hypoglycemia ) 15 - 30 gm PO UD PRN PRN Reason: Hypoglycemia Protocol Stop: 03/15/24 17:37 Morphine Sulfate (Morphine Sulfate 4 Mg/Ml 1 Ml Carp\Vial) 4 mg IV Q2H PRN PRN Reason: Severe Pain (Scale 7, 8, 9,10) Stop: 02/28/24 15:25 Last Admin: 02/15/24 08:16 Dose: 4 mg Ondansetron HCl (Ondansetron Inj 2 Mg/Ml 2 Ml Vial) 4 mg IV Q4H PRN PRN Reason: Nausea And Vomiting Stop: 03/15/24 17:37 Oxycodone HCl (Oxycodone Hcl Ir 5 Mg Tab (Immediate Release)) 5 mg PO Q6H PRN PRN Reason: Moderate Pain (Scale 4, 5, 6) Stop: 02/28/24 15:13 Pregabalin (Pregabalin 25 Mg Cap) 25 mg PO TID [facility] Stop: 03/15/24 20:59 Last Admin: 02/15/24 08:25 Dose: 25 mg Tizanidine HCl (Tizanidine Hcl 4 Mg Tablet) 4 mg PO BID PRN PRN Reason: Muscle Spasm Stop: 03/15/24 15:13 Trazodone HCl (Trazodone Hcl 100 Mg Tab) 300 mg PO HS [facility] Stop: 03/15/24 20:59 Last Admin: 02/14/24 20:37 Dose: 300 mg Vancomycin HCl (Vancomycin Hcl 500 Mg/10 Ml Soln) 500 mg PO Q6 [facility] Stop: 02/25/24 07:44 (1) Syncope Syncope type: unspecified Qualified Code(s): R55 - Syncope and collapse (3) Fall Encounter type: initial encounter Qualified Code(s): W19.XXXA - Unspecified fall, initial encounter
--- NOTE | 2024-02-15 08:43 | Electrocardiogram Report ---
Test Reason : Blood Pressure : / mmHG Vent. Rate : 075 BPM Atrial Rate : 075 BPM P-R Int : 182 ms QRS Dur : 092 ms QT Int : 388 ms P-R-T Axes : 036 -41 036 degrees QTc Int : 433 ms Normal sinus rhythm Left axis deviation Low voltage QRS Inferior infarct (cited on or before 18-JUN-2019) Cannot rule out Anterior infarct (cited on or before 18-JUN-2019) Abnormal ECG When compared with ECG of 15-APR-2023 12:20, Nonspecific T wave abnormality has replaced inverted T waves in Inferior leads Nonspecific T wave abnormality has replaced inverted T waves in Anterior leads Confirmed by Jasbir Martell ([id number]) on 02/15/2024 8:43:14 AM Referred By: Confirmed By:Jasbir Martell
[2024-02-15] MEDS: CHERRY SYRUP 5 ML UDP PO SCH (08:50)
[2024-02-15] MEDS: VANCOMYCIN HCL 500 MG/10 ML SOLN PO SCH (08:50)
--- NOTE | 2024-02-15 10:49 | Gastrointestinal Consultation ---
Date of Consultation February 15, 2024 Assessment & Plan (1) Rectal bleeding: (2) Constipation: (3) Colitis: Plan Patient is a 74 y.o. female with a history of severe constipation admitted with brbpr, LLQ pain and abnormal CT of the colon suggestive of a nonspecific colitis, most likely ischemic given hx. -Diet advanced to full liquid with further advancement to low residue as tolerated. -Continue Cipro/Flagyl for a total of 10 days. -Supportive care per primary team. Thank you for allowing us to participate in the care of this patient. If you have any questions or concerns, please do not hesitate to contact us. Supervising Physician Co-Signing Physician Notes Agree with NUPUR Carrizales as above Interviewed and Examined patient and agree with above Abd: Soft, Tender LLQ, ND, +BS Continue current therapy and supportive care Will follow clinical course and make further recommendations as needed. History of Present Illness Reason for Consultation: GI Bleed Requesting Physician: Dr. Olivo Attending Physician: Tre Olivo MD History of Present Illness Pt is a 74 yo F with chronic diastolic CHF, HTN, HLD, CAD, DVT on Eliquis, DM type II, chronic pain syndrome, s/p R rotator cuff repair, GERD, bipolar 2 disorder admitted with acute blood loss anemia and rectal bleeding. Patient states the symptoms began after 8 days of not having a bowel movement followed by a day of "explosive diarrhea". Hemoglobin on 12/26 was noted to be 14.0 and was 8.7 this morning. She is receiving [address] with findings of nonspecific left sided colitis, without findings of diverticulitis. Biofire negative. She endorses ongoing LLQ abdominal pain but states the rectal bleeding has significantly reduced. She is tolerating a liquid diet and denies any n/v. Receiving Cipro/Flagyl IV. Allergies Allergy/AdvReac Type Severity Reaction Status Date / Time latex Allergy Intermediate Rash Verified 02/01/24 10:08 nickel Allergy Intermediate SEVERE Verified 02/01/24 10:08 DERMATITIS, difficulty breathing adhesive tape AdvReac Intermediate SKIN Verified 02/01/24 10:08 IRRITATION aspirin AdvReac Intermediate full dose Verified 02/01/24 10:08 asa -> bleeding ulcers NSAIDS (Non-Steroidal AdvReac Intermediate HX OF Verified 02/01/24 10:08 Anti-Inflamma BLEEDING ULCERS-TO AVOID Home Medications Medication Instructions Recorded Confirmed Type atorvastatin 40 mg tablet (Lipitor) 40 mg PO QAM 12/13/18 02/14/24 History levothyroxine 75 mcg tablet 75 mcg PO QAM 12/13/18 02/14/24 History promethazine 25 mg tablet 25 mg PO Q6H PRN Nausea 05/12/19 02/14/24 History epinephrine 0.3 mg/0.3 mL 0.3 mg IM Q3H PRN Allergic Reaction 05/23/19 02/14/24 History injection syringe nitroglycerin 0.3 mg sublingual 0.3 mg sublingual UD PRN Chest Pain 05/23/19 02/14/24 History tablet (Nitrostat) olopatadine 0.2 % eye drops 1 drp ophthalmic (eye) QAM 05/23/19 02/14/24 History tizanidine 4 mg tablet 4 mg PO BID PRN Muscle Spasm 04/03/20 02/14/24 History trazodone 100 mg tablet 300 mg PO HS 04/03/20 02/14/24 History furosemide 20 mg tablet 40 mg PO QAM 10/05/20 02/14/24 History loperamide 2 mg capsule 2 mg PO QID PRN Diarrhea 02/15/21 02/14/24 History apixaban 5 mg tablet (Eliquis) 5 mg PO BID 10/11/21 02/14/24 History aspirin 81 mg tablet,delayed 81 mg PO QAM 01/20/23 02/14/24 History release metoprolol succinate 100 mg 100 mg PO QAM 01/20/23 02/14/24 History tablet,extended release 24 hr semaglutide 2 mg/dose (8 mg/3 mL) 2 mg subcut WK 01/20/23 02/14/24 History subcutaneous pen injector (Ozempic) spironolactone 25 mg tablet 25 mg PO QAM 01/20/23 02/14/24 History buspirone 10 mg tablet 10 mg PO BID 02/20/23 02/14/24 History plecanatide 3 mg tablet (Trulance) 3 mg PO QAM #90 tabs 06/11/23 02/14/24 Rx acetaminophen 500 mg tablet 1,000 mg (2 x 500 mg) PO Q8 PRN 07/12/23 02/14/24 Rx (Tylenol Extra Strength) pain #100 tabs ondansetron 4 mg disintegrating 4 mg PO Q6H PRN nausea and 10/26/23 02/14/24 Rx tablet vomiting #10 tabs pantoprazole 40 mg tablet,delayed 40 mg PO BID #60 tabs 12/21/23 02/14/24 Rx release pregabalin 25 mg capsule 25 mg PO .COMPLEX #90 caps 02/01/24 02/14/24 Rx oxycodone 5 mg tablet 5 mg PO Q6H PRN pain 02/14/24 02/14/24 History Patient History Medical History Right shoulder pain Encounter for pre-operative examination Dilation of thoracic aorta mild per cardio; monitoring HOLLY (obstructive sleep apnea) noncompliant with CPAP per cardio note History of post-polio syndrome Orthostatic hypotension Barretts esophagus on protonix; follows with GI Intractable abdominal pain Cyclic vomiting syndrome Diabetes mellitus, type 2 06/26/23 Ha1c: 5.8% Hx of Clostridium difficile infection Remote hx History of COVID-19 10/2021 - treated inpatient at [facility]/Covid PNA Chronic heart failure with preserved ejection fraction (HFpEF) EF 55-59% GI bleed Hx (declined AC d/t hx of GIB per records) CAD (coronary artery disease) 2 BMS to LAD (2016) Degenerative disc disease Hypothyroidism Anemia Post traumatic stress disorder Depression Anxiety Restless leg syndrome Migraine Hx, no recent issues Deep vein thrombosis ~2014, unknown cause Pulmonary embolism ~2014 (UNSURE OF REASON) Myocardial Infarction NSTEMI 2016; s/p 2 BMS to LAD Hypertension Hyperlipidemia Dyslipidemia Cervical spondylolysis Scoliosis Surgical History History of arthroscopy of right shoulder 10/23/23 ([facility]) Right shoulder arthroscopy, I&D of subacromial hematoma History of arthroscopy of right shoulder rt shoulder, 06/2023 History of colonoscopy History of esophagogastroduodenoscopy (EGD) History of back surgery has bilateral SI Joint replacements (~2020 at [facility]) S/P hardware removal removal of all back hardware (~2002) [facility] History of vascular access device Left upper chest port (*not a power port*) History of cataract surgery LEFT AND RIGHT History of anesthesia reaction Awareness with spinal surgeries History of laminectomy and fusion "entire spine is fused(except cervical spine)" ROSENDA Archuleta (Dr Catherine) 1989' Fusion of spine LUMBAR History of appendectomy History of tonsillectomy History of adenoidectomy History of heart artery stent 2017-x2 STENTS PLACED AT [facility] (DR. DAVILA) H/O ovarian cystectomy x2 H/O repair of right rotator cuff H/O spinal fusion Multiple Family History Mother Hypertension Father Hypertension Other No family history of adverse response to anesthesia Social History Smoking Status: Never smoker Second Hand Exposure: No; Do You Dip or Chew Tobacco: No; Hx Alcohol Use: No Hx Substance Use: No Preferred Language: Frisian Communication Ability: Effective Visual Impairment: Limited Hearing Ability: Normal Chainer Required: No Beliefs That Will Affect Care: None marital status: Current Living Situation: Alone current occupational status: retired How many Children do You have: 2 Other Information That Helps Us Care for You: No Feels Safe at Home: Yes Safety Concerns: Feels Safe At This Time Assistive Devices: Walker Review of Systems Review of Systems: All systems reviewed & are unremarkable except as noted in HPI & below Physical Exam Constitutional: WD/WN, vitals as above Eyes: EOM intact bilaterally Respiratory: normal respiratory effort, lungs clear to auscultation Cardiovascular: Rate/Rhythm: regular rate and regular rhythm Gastrointestinal (Abdomen): Inspection/Auscultation: normal bowel sounds Percussion/Palpation: + abdomen tender (LLQ) and abdomen soft; no guarding and abdomen not rigid Psychiatric: A+Ox3, euthymic affect Results & Data Vital Signs (Past 12 Hours) Vital Signs Temp Pulse Pulse Pulse Resp BP BP 02/15/24 10:00 36.6 C 80 16 113/71 02/15/24 10:00 36.9 C 73 16 104/60 02/15/24 09:45 36.8 C 75 16 97/63 L 02/15/24 09:25 36.3 C L 76 16 94/62 L 02/15/24 07:54 36.7 C 77 16 100/62 02/15/24 04:02 70 02/15/24 03:43 36.6 C 72 20 98/63 L 02/15/24 00:05 36.3 C L 73 18 92/58 L Pulse Ox O2 Del Method 02/15/24 10:00 96 02/15/24 10:00 97 02/15/24 09:45 94 02/15/24 09:25 93 02/15/24 07:54 94 Room Air 02/15/24 04:02 02/15/24 03:43 93 Room Air 02/15/24 00:05 94 Room Air Diagnostic Findings Laboratory Results WBC 5.65 K/ul (4.8-10.8) 02/15/24 04:25 RBC 2.94 M/uL (4.20-5.40) L 02/15/24 04:25 Hgb 8.7 g/dl (12.0-16.0) L 02/15/24 04:25 Hct 26.1 % (37.0-47.0) L 02/15/24 04:25 MCV 88.8 fL (80.0-100.0) 02/15/24 04:25 MCH 29.6 pg (25.0-34.0) 02/15/24 04:25 MCHC 33.3 g/dL (32.0-36.0) 02/15/24 04:25 RDW Std Deviation 45.3 fL (36.4-46.3) 02/15/24 04:25 RDW Coeff of [place] 14.0 % (11.5-14.5) 02/15/24 04:25 Plt Count 193 K/uL (130-400) 02/15/24 04:25 MPV 9.6 fL (9.4-12.4) 02/15/24 04:25 Immature Gran % (Auto) 0.2 % 02/14/24 12:05 Neut % (Auto) 57.8 % 02/14/24 12:05 Lymph % (Auto) 31.6 % 02/14/24 12:05 Perkins % (Auto) 7.8 % 02/14/24 12:05 Eos % (Auto) 2.1 % 02/14/24 12:05 Baso % (Auto) 0.5 % 02/14/24 12:05 Neut # (Auto) 5.06 K/uL (1.40-6.50) 02/14/24 12:05 Lymph # (Auto) 2.76 K/uL (1.20-3.40) 02/14/24 12:05 Perkins # (Auto) 0.68 K/uL (0.11-0.59) H 02/14/24 12:05 Eos # (Auto) 0.18 K/uL (0.00-0.50) 02/14/24 12:05 Baso # (Auto) 0.04 K/uL (0.00-0.20) 02/14/24 12:05 Immature Gran # (Auto) 0.02 K/uL (0.01-0.20) 02/14/24 12:05 PT 12.0 Seconds (9.0-12.0) 02/14/24 12:05 INR 1.1 (0.9-1.1) 02/14/24 12:05 APTT 29 Seconds (21-31) 02/14/24 12:05 PTT Ratio 1.0 02/14/24 12:05 Sodium 138 mmol/L (136-145) 02/15/24 04:25 Potassium 3.1 mmol/L (3.5-5.1) L 02/15/24 04:25 Chloride 106 mmol/L (98-107) 02/15/24 04:25 Carbon Dioxide 29 mmol/L (21-32) 02/15/24 04:25 Anion Gap 3 (3-11) 02/15/24 04:25 BUN 6 mg/dl (6-23) 02/15/24 04:25 Creatinine 0.61 mg/dl (0.6-1.2) 02/15/24 04:25 Est Cr Clr Drug Dosing 79.3 ml/min 02/15/24 04:25 Est GFR ( Amer) 102.1 ml/min 02/15/24 04:25 Est GFR (Non-Af Amer) 88.1 ml/min 02/15/24 04:25 BUN/Creatinine Ratio 9.8 (10-20) L 02/15/24 04:25 Glucose 106 mg/dl (70-99(Fasting)) H 02/15/24 04:25 POC Glucose 101 mg/dl (70-99) H 02/15/24 08:25 Estimat Average Glucose 123 mg/dl 02/15/24 04:25 Hemoglobin A1c 5.9 % (4.5-5.6) H 02/15/24 04:25 Lactate 1.1 mmol/L (0.4-2.0) 02/14/24 20:27 Calcium 7.8 mg/dl (8.6-10.3) L 02/15/24 04:25 Phosphorus 4.0 mg/dl (2.5-4.9) 02/15/24 04:25 Magnesium 1.5 mg/dl (1.7-2.4) L 02/15/24 04:25 Total Bilirubin 0.3 mg/dl (0.2-1.0) 02/15/24 04:25 AST 14 U/L (13-39) 02/15/24 04:25 ALT 11 U/L (7-52) 02/15/24 04:25 Alkaline Phosphatase 66 U/L (34-104) 02/15/24 04:25 Troponin I High Sens 3.5 pg/ml (0-14) 02/14/24 12:05 Total Protein 4.8 gm/dl (6.0-8.3) L D 02/15/24 04:25 Albumin 3.1 gm/dl (3.4-5.0) L 02/15/24 04:25 Globulin 1.7 gm/dl (2.5-4.0) L 02/15/24 04:25 Albumin/Globulin Ratio 1.8 (0.9-2) 02/15/24 04:25 Urine Color Yellow 02/14/24 13:22 Urine Appearance Clear (Clear) 02/14/24 13:22 Urine pH 6.5 (4.5-7.5) 02/14/24 13:22 Ur Specific [place] 1.011 (1.000-1.030) 02/14/24 13:22 Urine Protein Negative (Negative) 02/14/24 13:22 Urine Glucose (UA) Negative (Negative) 02/14/24 13:22 Urine Ketones Negative (Negative) 02/14/24 13:22 Urine Blood Negative (Negative) 02/14/24 13:22 Urine Nitrite Negative (Negative) 02/14/24 13:22 Urine Bilirubin Negative (Negative) 02/14/24 13:22 Urine Urobilinogen Negative (Negative) 02/14/24 13:22 Ur Leukocyte Esterase Trace (Negative) H 02/14/24 13:22 Urine WBC (Auto) 0-5 /hpf (0-5) 02/14/24 13:22 Urine RBC (Auto) 0-2 /hpf (0-2) 02/14/24 13:22 U Hyaline Cast (Auto) 3-5 /lpf (0-2) H 02/14/24 13:22 U Epithel Cells (Auto) 0-2 /hpf (0-2) 02/14/24 13:22 Urine Bacteria (Auto) None Seen (None Seen) 02/14/24 13:22 Stl C. cayetanensis PCR Not Detected (NotDetected) 02/14/24 16:47 Stool Rotavirus A PCR Not Detected (NotDetected) 02/14/24 16:47 Stl Adenov F 40/41 PCR Not Detected (NotDetected) 02/14/24 16:47 Stool Astrovirus (PCR) Not Detected (NotDetected) 02/14/24 16:47 Stool Campylobacter PCR Not Detected (NotDetected) 02/14/24 16:47 Stl C. diff Tox B Gene Positive Cdiff Gene (Neg) H 02/14/24 16:47 Stl C.difficile Tox A&B Negative Cdiff Toxin (Negative) 02/14/24 16:47 Stool Cryptosporidium PCR Not Detected (NotDetected) 02/14/24 16:47 Stl E.coli Shiga Tox PCR Not Detected (NotDetected) 02/14/24 16:47 Stl Enterotoxigenic E PCR Not Detected (NotDetected) 02/14/24 16:47 Stool EPEC (PCR) Not Detected (NotDetected) 02/14/24 16:47 Stool EAEC (PCR) Not Detected (NotDetected) 02/14/24 16:47 Stl E. histolytica PCR Not Detected (NotDetected) 02/14/24 16:47 Stool Giardia Lamblia PCR Not Detected (NotDetected) 02/14/24 16:47 Stool Salmonella PCR Not Detected (NotDetected) 02/14/24 16:47 Stool Sapovirus (PCR) Not Detected (NotDetected) 02/14/24 16:47 Stl P. shigelloides PCR Not Detected (NotDetected) 02/14/24 16:47 Stl Shigella/EIEC PCR Not Detected (NotDetected) 02/14/24 16:47 St Y.enterocolitica PCR Not Detected (NotDetected) 02/14/24 16:47 Stool Vibrio (PCR) Not Detected (NotDetected) 02/14/24 16:47 Stl Vibrio cholerae PCR Not Detected (NotDetected) 02/14/24 16:47 Stl Norovirus GI/GII PCR Not Detected (NotDetected) 02/14/24 16:47 Blood Type O Positive 02/14/24 12:04 Antibody Screen NEGATIVE 02/14/24 12:04 Crossmatch See Detail 02/14/24 12:[address] 02/14/24 12:[address] DOSE: HISTORY: Trauma TECHNIQUE: Multiaxial CT images of the cervical spine were performed and reformatted in the sagittal and coronal plane without the use of contrast. A dose lowering technique was utilized adhering to the principles of ALARA. COMPARISON: Cervical spine CT 04/15/2023. FINDINGS: No fractures. No subluxation. Prevertebral soft tissues and the C1-C2 interval are intact. No pneumothorax. [id number] degenerative changes again noted. IMPRESSION: No fractures within the cervical spine. ACT 112: Negative or not required by law. Electronically signed by: Bulmaro Zavaleta M.D. 02/14/2024 1:[address] 02/14/24 12:[address] DOSE: HISTORY: Trauma, fall on eliquis TECHNIQUE: Multiaxial CT images of the head were performed without the use of intravenous contrast. Automated exposure control was utilized for this study. A dose lowering technique was utilized adhering to the principles of ALARA. Comparison: Head CT 04/15/2023. Findings: The paranasal sinuses and mastoid air cells are clear. The calvarium and skull base are intact. The ventricles and sulci are within normal limits. There is no mass, hematoma, midline shift, or acute infarct. Impression: No acute intracranial abnormality. ACT 112: Negative or not required by law. Electronically signed by: Bulmaro Zavaleta M.D. 02/14/2024 1:33 PM Abdomen/Pelvis CT 02/14/24 12:[address] WITH IV CONTRAST CT DOSE: 2561.38 mGy.cm HISTORY: ab pain, rectal/vaginal bleeding, fall on eliquis TECHNIQUE: Multiaxial CT images of the abdomen and pelvis were performed following the use of intravenous contrast. A dose lowering technique was utilized adhering to the principles of ALARA. COMPARISON STUDY: Abdomen and pelvis CT 12/27/2023. FINDINGS: A few punctate calcified granulomas and subsegmental atelectasis seen within the lung bases. No pneumoperitoneum. No pneumatosis. Bilateral sacroiliac bolts are noted. No acute fractures identified. Extensive bony fusion within the thoracolumbar spine with remnants of old postoperative change. Partial resection of a a few left lateral ribs. Mild circumferential the distal esophagus, unchanged. This favors a mild esophagitis. The liver, gallbladder, pancreas, spleen, and adrenal glands unremarkable. Subcentimeter bilateral renal hypodense lesions are technically too small to characterize but favor cysts. Left-sided nephrolithiasis again noted. No ureteral stones. No hydronephrosis. The main portal vein is patent. Calcified plaque within the normal caliber abdominal aorta. No retroperitoneal or pelvic lymphadenopathy. No pelvic free fluid. The bladder is unremarkable. There is a 2 cm pedunculated uterine fibroid, unchanged. Mild circumferential thickening within the sigmoid colon and rectum with minimal pericolonic fat stranding at the sigmoid colon. This is consistent with a mild nonspecific proctocolitis. Colonic diverticulosis. No evidence for acute diverticulitis. No dilated loops of bowel to suggest an obstruction. IMPRESSION: 1. No acute traumatic process within the abdomen or pelvis. 2. Mild circumferential thickening of the sigmoid colon and rectum with mild pericolonic fat stranding at the mid sigmoid colon. This consistent with a no nspecific proctocolitis. This favors an infectious or inflammatory process. 3. Left-sided nephrolithiasis. No hydronephrosis. 4. Colonic diverticulosis. No evidence for acute diverticulitis. 5. Additional findings as described above. ACT 112: Negative or not required by law. Electronically signed by: Bulmaro Zavaleta M.D. 02/14/2024 1:31 PM Shoulder X-Ray 02/14/24 13:59 XR shoulder RT min 2V routine CLINICAL HISTORY: fall, pain COMPARISON STUDY: Right shoulder 10/19/2023. FINDINGS: The bones are osteopenic. No acute fracture or dislocation within the right shoulder. The right clavicle is intact. Mild widening of the AC joint is likely chronic. Narrowing of the subacromial space consistent with chronic rotator cuff injury. IMPRESSION: No acute fracture or dislocation within the right shoulder. ACT 112: Negative or not required by law. Electronically signed by: Bulmaro Zavaleta M.D. 02/14/2024 2:39 PM Pelvis Ultrasound 02/14/24 15:18 Exam(s): US PELVIS EXAM: US Pelvis Transabdominal and Transvaginal, Complete CLINICAL HISTORY: R/o uterine bleed. TECHNIQUE: Real-time complete transabdominal and transvaginal pelvic ultrasound with image documentation. Transvaginal imaging was used for better evaluation of the endometrium and adnexa. COMPARISON: No relevant prior studies available. FINDINGS: Uterus/cervix: The uterus measures 5.7 x 3 x 3.9 cm. There is a partially pedunculated rounded heterogeneously echogenic mass extending from the anterior uterine fundus measuring 1.5 x 1.8 cm with internal vascular flow. The endometrial stripe measures only 1.7 mm. No increased vascular flow noted. No fluid in the endometrial canal. Right ovary: The right ovary measures 1.7 x 0.6 x 1.2 cm. Internal vascular flow noted. Normal blood flow. Left ovary: Left ovary measures 1.1 x 1.5 x 1 cm. Internal vascular flow. Normal blood flow. Free fluid: No free fluid. Bladder: Unremarkable as visualized. Wall is normal thickness for degree of distention. IMPRESSION: 1. The endometrial stripe measures only 1.7 mm. No increased vascular flow noted. No fluid in the endometrial canal. 2. Pedunculated fibroid extending from the anterior fundus measuring 1.5 x 1.8 cm. 3. The ovaries are unremarkable without evidence for torsion. Electronically signed by: Kuldip Arevalo MD 02/14/24 21:44 PM PG Care Time/CCT Total # of Minutes Spent Total Time Spent with Patient: Total time spent is greater than 50% in coordination of care (as documented) at patient's floor/unit and/or counseling patient: Coding Level of Care Code 78790 INT INP/OBS CARE 3/75MIN Diagnoses Rectal bleeding K62.5 Constipation K59.00 Colitis K52.9
[2024-02-15] MEDS: diphenhydrAMINE Capsule 25 MG CAP PO ONE ×2 (11:33→21:56)
[2024-02-15] MEDS: MoRPHine SULFATE 4 MG/ML 1 ML CARP\\VIAL IV PRN (12:55)
[2024-02-15 15:05] LABS: Hematocrit (blood only) 30.4 % (37.0-47.0); Hemoglobin 10.1 g/dl (12.0-16.0)
[2024-02-15] MEDS: MAGNESIUM SULFATE / D5W 1 GM/100 ML BAG IV ONE ×2 (17:01→23:56)
[2024-02-15 19:40] LABS: BUN Creatinine Ratio 8.2 (10-20); Calcium 8.3 mg/dl (8.6-10.3); Creatinine Clr Calc Pharmacy 79.3 ml/min; Est GFR (African American) 102.1 ml/min; Est GFR (Non-African American) 88.1 ml/min; Magnesium 1.4 mg/dl (1.7-2.4); Potassium 3.8 mmol/L (3.5-5.1)
[2024-02-15] MEDS: oxyCODONE HCL IR 5 MG TAB (IMMEDIATE RELEASE) PO PRN (19:57)
[2024-02-15 22:04] LABS: Hematocrit (blood only) 27.8 % (37.0-47.0); Hemoglobin 9.2 g/dl (12.0-16.0)
[2024-02-15] MEDS: SODIUM CHLORIDE 0.9% 1,000 ML IV SCH (23:56)
[2024-02-16 05:15] LABS: Albumin Globulin Ratio 1.9 (0.9-2); Albumin Level 3.1 gm/dl (3.4-5.0); BUN Creatinine Ratio 6.6 (10-20); Bilirubin,Total 0.3 mg/dl (0.2-1.0); Calcium 7.5 mg/dl (8.6-10.3); Creatinine Clr Calc Pharmacy 78.9 ml/min; Est GFR (African American) 102.1 ml/min; Est GFR (Non-African American) 88.1 ml/min; Globulin 1.6 gm/dl (2.5-4.0); Magnesium 1.8 mg/dl (1.7-2.4); Phosphorus 4.1 mg/dl (2.5-4.9); Potassium 3.6 mmol/L (3.5-5.1); Total Protein 4.7 gm/dl (6.0-8.3)
[2024-02-16 05:19] LABS: Hematocrit (blood only) 27.4 % (37.0-47.0); Hemoglobin 9.1 g/dl (12.0-16.0); Mean Corpuscular Hemoglobin 29.4 pg (25.0-34.0); Mean Corpuscular Hgb Conc 33.2 g/dL (32.0-36.0); Mean Corpuscular Volume 88.7 fL (80.0-100.0); Mean Platelet Volume 9.6 fL (9.4-12.4); Platelet Count 169 K/uL (130-400); RDW Coefficient of Variation 14.2 % (11.5-14.5); RDW Standard Deviation 45.3 fL (36.4-46.3); Red Blood Count 3.09 M/uL (4.20-5.40); White Blood Count 5.13 K/ul (4.8-10.8)
--- NOTE | 2024-02-16 08:01 | Hospitalist Progress Note ---
Date of Service February 16, 2024 Assessment & Plan (1) Syncope: (2) Rectal bleeding: (3) Fall: (4) CAD (coronary artery disease): Plan: - Last echo from 11/06/22 showing LVEF of 55-59%, mildly increased LV wall thickness, left ventricular diastolic function is mildly abnormal. No valvular disease. - Repeat echo with syncopal episode but likely due to acute blood loss - [place] [facility] [place] Dr. [place] - Blood loss of 2g compared to her baseline is noted -- hgb of 13.3 from 02/09/24 reviewed in [facility], as well as 13 in October. - CT imaging with possible proctocolitis - Concern for vaginal bleeding - check US vagina/uterus - 1. The endometrial stripe measures only 1.7 mm. No increased vascular flow noted. No fluid in the endometrial canal. 2. Pedunculated fibroid extending from the anterior fundus measuring 1.5 x 1.8 cm. 3. The ovaries are unremarkable without evidence for torsion. ADMINISTRATIVE FELLOW consulted- per their exam - does not seem like vaginal bleed and awaiting pelvis US (pelvic US as above) - Repeat H&H q6H, trend - Hgb 8.7 on 02/14 - blood consent obtained - transfused 1 unit of pRBC - On eliquis for hx of DVT/PE in 2014 - HOLD , also hold ASA - Continue statin therapy. antihypertensive medications as below - Started Cipro/flagyl IV on admission - developed rash with cipro and received benadryl. switched to ceftriaxone w/ flagyl. - stool studies obtained - per RN stool sample was grossly blood, c diff gene positive - rest of stool PCR negative. - PPI IV BID - GI consulted - CT of the colon suggestive of a nonspecific colitis, most likely ischemic given hx. Diet advanced to full liquid with further advancement to low residue as tolerated. Continue antibiotics for a total of 10 days. Discussed w/ GI - cont. abx but no need for PO vanco 02/15 Pt reports no bleeding since yesterday and overall feeling better. Abd. pain improved. (5) Hypertension: Plan: -Home medications include: Metoprolol succinate 100 mg daily, Lasix 40 mg daily, spironolactone 25 mg daily - HOLD diuretics, cont. metoprolol. - monitor BP (6) Dyslipidemia: Plan: -Chronic, stable May continue atorvastatin (7) Diabetes mellitus, type 2: Plan: -ISS with Accu-Cheks ACHS -Patient is on Ozempic, Trulance 3 mg daily (8) Chronic pain: Plan: -PDMP reviewed, patient is on oxycodone 5 mg every 4 hours as needed. She was called in a prescription for [address] Rosado who she has followed with with orthopedics on 02/07, now she would be out of her oxycodone. 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 pain is somewhat improved. She had last bloody stool ye sterday. Reports she felt much better after blood transfusion and fluids. Discussed w/ GI - cont. antibiotics for now, but no need for po vanco Review of Systems Review of Systems: All systems reviewed & are unremarkable except as noted in Subjective Physical Exam Physical Exam: Constitutional: WD/WN F in NAD HEENT: NC/AT, EOMI Respiratory: CTAB Cardiovascular: RRR Abdomen: + tenderness in lower abd. quadrants, soft, + bowel sounds Musculoskeletal: +chronic R shoulder pain, moves extremities Neurologic: awake, alert, answers appropriately, no facial asymmetry, moves extremities Skin: warm, dry Results & Data Results & Data Vital Signs (Past 12 Hours) Vital Signs Temp Pulse Pulse Resp BP Pulse Ox O2 Del Method 02/16/24 07:50 36.8 C 82 16 113/72 92 Room Air 02/16/24 02:51 36.5 C 83 18 102/69 90 Room Air 02/15/24 23:25 36.7 C 83 18 104/70 91 Room Air 02/15/24 23:00 79 02/15/24 20:34 36.9 C 79 18 113/78 93 Room Air Laboratory Results 02/16/24 02/15/24 02/15/24 Range/Units 04:20 21:34 20:28 WBC 5.13 (4.8-10.8) K/ul RBC 3.09 L (4.20-5.40) M/uL Hgb 9.1 L 9.2 L (12.0-16.0) g/dl Hct 27.4 L 27.8 L (37.0-47.0) % MCV 88.7 (80.0-100.0) fL MCH 29.4 (25.0-34.0) pg MCHC 33.2 (32.0-36.0) g/dL RDW Std Deviation 45.3 (36.4-46.3) fL RDW Coeff of Arden 14.2 (11.5-14.5) % Plt Count 169 (130-400) K/uL MPV 9.6 (9.4-12.4) fL Sodium 141 (136-145) mmol/L Potassium 3.6 (3.5-5.1) mmol/L Chloride 111 H (98-107) mmol/L Carbon Dioxide 26 (21-32) mmol/L Anion Gap 4 (3-11) BUN 4 L (6-23) mg/dl Creatinine 0.61 (0.6-1.2) mg/dl Est Cr Clr Drug Dosing 78.9 ml/min Est GFR ( Amer) 102.1 ml/min Est GFR (Non-Af Amer) 88.1 ml/min BUN/Creatinine Ratio 6.6 L (10-20) Glucose 118 H (70-99(Fasting)) mg/dl POC Glucose 115 H (70-99) mg/dl Calcium 7.5 L (8.6-10.3) mg/dl Phosphorus 4.1 (2.5-4.9) mg/dl Magnesium 1.8 (1.7-2.4) mg/dl Total Bilirubin 0.3 (0.2-1.0) mg/dl AST 18 (13-39) U/L ALT 14 (7-52) U/L Alkaline Phosphatase 66 (34-104) U/L Total Protein 4.7 L (6.0-8.3) gm/dl Albumin 3.1 L (3.4-5.0) gm/dl Globulin 1.6 L (2.5-4.0) gm/dl Albumin/Globulin Ratio 1.9 (0.9-2) Blood Type Antibody Screen Crossmatch 02/15/24 02/15/24 02/15/24 Range/Units 17:25 14:44 12:29 WBC (4.8-10.8) K/ul RBC (4.20-5.40) M/uL Hgb 10.1 L (12.0-16.0) g/dl Hct 30.4 L (37.0-47.0) % MCV (80.0-100.0) fL MCH (25.0-34.0) pg MCHC (32.0-36.0) g/dL RDW Std Deviation (36.4-46.3) fL RDW Coeff of Arden (11.5-14.5) % Plt Count (130-400) K/uL MPV (9.4-12.4) fL Sodium 138 (136-145) mmol/L Potassium 3.8 D (3.5-5.1) mmol/L Chloride 109 H (98-107) mmol/L Carbon Dioxide 25 (21-32) mmol/L Anion Gap 4 (3-11) BUN 5 L (6-23) mg/dl Creatinine 0.61 (0.6-1.2) mg/dl Est Cr Clr Drug Dosing 79.3 ml/min Est GFR ( Amer) 102.1 ml/min Est GFR (Non-Af Amer) 88.1 ml/min BUN/Creatinine Ratio 8.2 L (10-20) Glucose 109 H (70-99(Fasting)) mg/dl POC Glucose 98 92 (70-99) mg/dl Calcium 8.3 L (8.6-10.3) mg/dl Phosphorus (2.5-4.9) mg/dl Magnesium 1.4 L (1.7-2.4) mg/dl Total Bilirubin (0.2-1.0) mg/dl AST (13-39) U/L ALT (7-52) U/L Alkaline Phosphatase (34-104) U/L Total Protein (6.0-8.3) gm/dl Albumin (3.4-5.0) gm/dl Globulin (2.5-4.0) gm/dl Albumin/Globulin Ratio (0.9-2) Blood Type Antibody Screen Crossmatch 02/15/24 02/14/24 Range/Units 08:25 12:04 WBC (4.8-10.8) K/ul RBC (4.20-5.40) M/uL Hgb (12.0-16.0) g/dl Hct (37.0-47.0) % MCV (80.0-100.0) fL MCH (25.0-34.0) pg MCHC (32.0-36.0) g/dL RDW Std Deviation (36.4-46.3) fL RDW Coeff of Arden (11.5-14.5) % Plt Count (130-400) K/uL MPV (9.4-12.4) fL Sodium (136-145) mmol/L Potassium (3.5-5.1) mmol/L Chloride (98-107) mmol/L Carbon Dioxide (21-32) mmol/L Anion Gap (3-11) BUN (6-23) mg/dl Creatinine (0.6-1.2) mg/dl Est Cr Clr Drug Dosing ml/min Est GFR ( Amer) ml/min Est GFR (Non-Af Amer) ml/min BUN/Creatinine Ratio (10-20) Glucose (70-99(Fasting)) mg/dl POC Glucose 101 H (70-99) mg/dl Calcium (8.6-10.3) mg/dl Phosphorus (2.5-4.9) mg/dl Magnesium (1.7-2.4) mg/dl Total Bilirubin (0.2-1.0) mg/dl AST (13-39) U/L ALT (7-52) U/L Alkaline Phosphatase (34-104) U/L Total Protein (6.0-8.3) gm/dl Albumin (3.4-5.0) gm/dl Globulin (2.5-4.0) gm/dl Albumin/Globulin Ratio (0.9-2) Blood Type O Positive Antibody Screen NEGATIVE Crossmatch See Detail Medications Administered Current Inpatient Medications Acetaminophen (Acetaminophen 325 Mg Tab) 650 mg PO Q4H PRN PRN Reason: Moderate Pain (Scale 4, 5, 6) Stop: 03/15/24 17:37 Aspirin (Aspirin 81 Mg Ectab) 81 mg PO QAM [facility] Stop: 03/16/24 08:59 Last Admin: 02/15/24 08:01 Dose: Not Given Atorvastatin Calcium (Atorvastatin 40 Mg Tab) 40 mg PO QAM [facility] Stop: 03/16/24 08:59 Last Admin: 02/15/24 08:19 Dose: 40 mg Buspirone HCl (Buspirone 5 Mg Tab) 10 mg PO BID [facility] Stop: 03/15/24 20:59 Last Admin: 02/15/24 19:42 Dose: 10 mg Rivas Syrup (Rivas Syrup 5 Ml Udp) 5 ml PO Q6 COLT Stop: 02/25/24 07:44 Last Admin: 02/16/24 06:10 Dose: 5 ml Dextrose (Dextrose 50% 50 Ml Syringe) 25 - 50 ml IV UD PRN; Protocol PRN Reason: Hypoglycemia Protocol Stop: 03/15/24 17:37 Glucagon (Glucagon For Inj 1 Mg Vial) 1 mg SQ UD PRN; Protocol PRN Reason: Hypoglycemia Protocol Stop: 03/15/24 17:37 Glucose (Glucose 40% Gel 15 Gm Tube) 15 - 30 gm PO UD PRN; Protocol PRN Reason: Hypoglycemia Protocol Stop: 03/15/24 17:37 Glucose (Glucose 10 Tab/Tube) 4 - 8 tab PO UD PRN; Protocol PRN Reason: Hypoglycemia Treatment Stop: 03/15/24 17:37 Pantoprazole Sodium 40 mg/ (Syringe) 10 mls @ 5 mls/min IV BID [facility] Stop: 03/15/24 14:59 Last Admin: 02/15/24 19:42 Dose: 5 mls/min Ciprofloxacin (Cipro / D5w) 400 mg in 200 mls @ 100 mls/hr IV Q12H [facility]; Protocol Stop: 02/24/24 15:59 Last Infusion: 02/15/24 04:57 Dose: Infused Metronidazole (Flagyl) 500 mg in 100 mls @ 100 mls/hr IV Q8H [facility]; Protocol Stop: 02/24/24 15:59 Last Infusion: 02/15/24 22:48 Dose: Infused Ceftriaxone Sodium (Rocephin) 2,000 mg in 50 mls @ 100 mls/hr IV Q24H [facility] Stop: 02/24/24 18:59 Last Infusion: 02/15/24 22:52 Dose: Infused Sodium Chloride (Nss) 1,000 mls @ 80 mls/hr IV .[id number] [facility] Stop: 03/16/24 22:44 Last Admin: 02/15/24 23:56 Dose: 80 mls/hr Insulin Aspart (Insulin Aspart Per Unit Charge) 0 units SC ACHS [facility] Stop: 03/15/24 17:37 Last Admin: 02/15/24 21:25 Dose: Not Given Levothyroxine Sodium (Levothyroxine Sodium 75 Mcg Tablet) 75 mcg PO DAILYBB [facility] Stop: 03/16/24 06:29 Last Admin: 02/16/24 06:10 Dose: 75 mcg Metoprolol Succinate (Metoprolol Succ 50mg Ext Rel Tab) 100 mg PO QAM [facility] Stop: 03/16/24 08:59 Last Admin: 02/15/24 08:19 Dose: 100 mg Miscellaneous (Olopatadine 0.2 % Drops: Order Awaiting Action) 1 each N/A QS [facility] Stop: 03/16/24 00:00 Last Admin: 02/15/24 21:51 Dose: Not Given Miscellaneous (Trulance Tab: Order Awaiting Action) 1 each N/A QS [facility] Stop: 03/16/24 00:00 Last Admin: 02/15/24 21:51 Dose: Not Given Miscellaneous (Carbohydrates For Hypoglycemia ) 15 - 30 gm PO UD PRN PRN Reason: Hypoglycemia Protocol Stop: 03/15/24 17:37 Morphine Sulfate (Morphine Sulfate 4 Mg/Ml 1 Ml Carp\Vial) 4 mg IV Q4H PRN PRN Reason: Severe Pain (Scale 7, 8, 9,10) Stop: 02/28/24 15:25 Last Admin: 02/16/24 06:08 Dose: 4 mg Ondansetron HCl (Ondansetron Inj 2 Mg/Ml 2 Ml Vial) 4 mg IV Q4H PRN PRN Reason: Nausea And Vomiting Stop: 03/15/24 17:37 Oxycodone HCl (Oxycodone Hcl Ir 5 Mg Tab (Immediate Release)) 5 mg PO Q6H PRN PRN Reason: Moderate Pain (Scale 4, 5, 6) Stop: 02/28/24 15:13 Last Admin: 02/16/24 01:27 Dose: 5 mg Pregabalin (Pregabalin 25 Mg Cap) 25 mg PO TID [facility] Stop: 03/15/24 20:59 Last Admin: 02/15/24 19:58 Dose: 25 mg Tizanidine HCl (Tizanidine Hcl 4 Mg Tablet) 4 mg PO BID PRN PRN Reason: Muscle Spasm Stop: 03/15/24 15:13 Trazodone HCl (Trazodone Hcl 100 Mg Tab) 300 mg PO HS [facility] Stop: 03/15/24 20:59 Last Admin: 02/15/24 19:42 Dose: 300 mg Vancomycin HCl (Vancomycin Hcl 500 Mg/10 Ml Soln) 500 mg PO Q6 [facility] Stop: 02/25/24 07:44 Last Admin: 02/16/24 06:10 Dose: 500 mg (1) Syncope Syncope type: unspecified Qualified Code(s): R55 - Syncope and collapse (3) Fall Encounter type: initial encounter Qualified Code(s): W19.XXXA - Unspecified fall, initial encounter
[2024-02-16] MEDS: tiZANidine HCL 4 MG TABLET PO PRN (08:36)
[2024-02-16] MEDS ORDERED: Nursing to Pharmacy Communication SCH (17:30)
[2024-02-16] MEDS: MoRPHine SULFATE 4 MG/ML 1 ML CARP\\VIAL IV PRN (18:16)
[2024-02-16 18:27] LABS: Hematocrit (blood only) 27.9 % (37.0-47.0); Hemoglobin 9.3 g/dl (12.0-16.0)
[2024-02-17 06:20] LABS: Hematocrit (blood only) 27.3 % (37.0-47.0); Hemoglobin 9.3 g/dl (12.0-16.0); Mean Corpuscular Hgb Conc 34.1 g/dL (32.0-36.0); Mean Corpuscular Volume 88.1 fL (80.0-100.0); Mean Platelet Volume 9.9 fL (9.4-12.4); Platelet Count 189 K/uL (130-400); RDW Coefficient of Variation 14.1 % (11.5-14.5); RDW Standard Deviation 45.1 fL (36.4-46.3); White Blood Count 6.66 K/ul (4.8-10.8)
[2024-02-17 06:51] LABS: BUN Creatinine Ratio 5.5 (10-20); Calcium 7.8 mg/dl (8.6-10.3); Creatinine Clr Calc Pharmacy 89.4 ml/min; Est GFR (African American) 105.6 ml/min; Est GFR (Non-African American) 91.1 ml/min; Magnesium 1.5 mg/dl (1.7-2.4); Phosphorus 3.8 mg/dl (2.5-4.9); Potassium 3.7 mmol/L (3.5-5.1)
--- NOTE | 2024-02-17 14:07 | Gastroenterology Progress Note ---
Date of Service February 17, 2024 Assessment & Plan (1) Rectal bleeding: (2) Constipation: (3) Colitis: Plan Patient is a 74 y.o. female with a history of severe constipation admitted with brbpr, LLQ pain and abnormal CT of the colon suggestive of a nonspecific colitis, most likely ischemic given hx. -Diet advanced to low residue as tolerated. -Continue Cipro/Flagyl for a total of 10 days. -2 episodes of bleeding rectally. CTA abd/pelvis stat. -Supportive care per primary team. Admission and Anticipated Discharge Date Admission Date: February 14, 2024 Subjective Patient with a single episode of bright red bleeding with a bowel movement, first in the past 48 hours. No abdominal pain, n/v. Tolerating diet. H&H is stable. Review of Systems Constitutional: no problem reported Gastrointestinal: as per Subjective / HPI Physical Exam Constitutional: WD/WN, vitals as above Eyes: EOM intact bilaterally Respiratory: normal respiratory effort, lungs clear to auscultation Cardiovascular: Rate/Rhythm: regular rate and regular rhythm Gastrointestinal (Abdomen): Inspection/Auscultation: normal bowel sounds Percussion/Palpation: + abdomen tender (LLQ) and abdomen soft; no guarding and abdomen not rigid Psychiatric: A+Ox3, euthymic affect Results & Data Results & Data Vital Signs (Past 12 Hours) Vital Signs Temp Pulse Pulse Resp BP Pulse Ox O2 Del Method 02/17/24 11:47 36.9 C 79 16 131/77 92 Room Air 02/17/24 08:01 36.7 C 79 16 154/86 H 90 Room Air 02/17/24 07:12 83 02/17/24 03:50 36.8 C 82 18 126/82 93 Room Air PG Care Time/CCT Total # of Minutes Spent Total Time Spent with Patient: Total time spent is greater than 50% in coordination of care (as documented) at patient's floor/unit and/or counseling patient: Coding Level of Care Code 08657 SUB INP/OBS CARE 3/50MIN Diagnoses Rectal bleeding K62.5 Constipation K59.00 Colitis K52.9
[2024-02-17] MEDS: ONDANSETRON INJ 2 MG/ML 2 ML VIAL IV PRN (15:06)
--- NOTE | 2024-02-17 16:19 | Hospitalist Progress Note ---
Date of Service February 17, 2024 Assessment & Plan (1) Syncope: (2) Rectal bleeding: (3) Fall: (4) CAD (coronary artery disease): Plan: per previous attending notes with addendum: - Last echo from 11/06/22 showing LVEF of 55-59%, mildly increased LV wall thickness, left ventricular diastolic function is mildly abnormal. No valvular disease. - Repeat echo with syncopal episode but likely due to acute blood loss - [facility] [place] [facility] as outpt, Dr. Hernandez - Blood loss of 2g compared to her baseline is noted -- hgb of 13.3 from 02/09/24 reviewed in [facility], as well as 13 in October. - CT imaging with possible proctocolitis - Concern for vaginal bleeding - check US vagina/uterus - 1. The endometrial stripe measures only 1.7 mm. No increased vascular flow noted. No fluid in the endometrial canal. 2. Pedunculated fibroid extending from the anterior fundus measuring 1.5 x 1.8 cm. 3. The ovaries are unremarkable without evidence for torsion. NEGATIVE NOTCHER consulted- per their exam - does not seem like vaginal bleed and awaiting pelvis US (pelvic US as above) - Repeat H&H q6H, trend - Hgb 8.7 on 02/14 - blood consent obtained - transfused 1 unit of pRBC - On eliquis for hx of DVT/PE in 2014 - HOLD , also hold ASA - Continue statin therapy. antihypertensive medications as below - Started Cipro/flagyl IV on admission - developed rash with cipro and received benadryl. switched to ceftriaxone w/ flagyl. - stool studies obtained - per RN stool sample was grossly blood, c diff gene positive - rest of stool PCR negative. - PPI IV BID - GI consulted - CT of the colon suggestive of a nonspecific colitis, most likely ischemic given hx. Diet advanced to full liquid with further advancement to low residue as tolerated. Continue antibiotics for a total of 10 days. Discussed w/ GI - cont. abx but no need for PO vanco 02/15 Pt reports no bleeding since yesterday and overall feeling better. Abd. pain improved. 02/16 Having recurrence of hematochezia Check H&H at 4 PM GI service notified, CT angiogram abdomen and pelvis ordered Keep n.p.o. after midnight for possible procedure in a.m. Monitor closely (5) Hypertension: Plan: -Home medications include: Metoprolol succinate 100 mg daily, Lasix 40 mg daily, spironolactone 25 mg daily - HOLD diuretics, cont. metoprolol. - monitor BP (6) Dyslipidemia: Plan: -Chronic, stable May continue atorvastatin (7) Diabetes mellitus, type 2: Plan: -ISS with Accu-Cheks ACHS -Patient is on Ozempic, Trulance 3 mg daily (8) Chronic pain: Plan: -PDMP reviewed, patient is on oxycodone 5 mg every 4 hours as needed. She was called in a prescription for [address] Rosado who she has followed with with orthopedics on 02/07, now she would be out of her oxycodone. -It is unclear at this time if narcotic use has prompted worsening syncope - last dose was day prior to admission -IV MS for severe pain -Patient may continue pregabalin 25 mg daily DVT ppx: teds, scds FEN/GI: full liquid diet CODE: Full Admission and Anticipated Discharge Date Admission Date: February 14, 2024 Subjective Follow-up for GI bleed, etc. Seen resting in bed, comfortable, in good spirits States she feels better overall Would like to have her diet advanced to regular No abdominal pain, nausea no BM since Thursday No fevers or chills No other symptoms Later during the day, informed by RN that patient was having hematochezia x 2 episode Review of Systems Review of Systems: all noted and negative except for above Physical Exam Physical Exam: General- oriented x 3, not in distress, speaks in sentences with no effort or accessory muscle use Eyes- anicteric Neck- no JVD Lungs- clear breath sounds bilaterally, no rales/wheezes Heart- normal rate, regular rhythm; no murmurs Abdomen- normal bowel sounds, nondistended, soft, nontender Extremities- no pretibial edema, no calf tenderness Neuro- alert, oriented x 3; no gross focal neurologic deficits Skin- warm & dry Results & Data Results & Data Vital Signs (Past 12 Hours) Vital Signs Temp Pulse Pulse Resp BP Pulse Ox O2 Del Method 02/17/24 14:39 36.9 C 74 16 167/101 H 94 Room Air 02/17/24 11:47 36.9 C 79 16 131/77 92 Room Air 02/17/24 08:01 36.7 C 79 16 154/86 H 90 Room Air 02/17/24 07:12 83 all noted and reviewed including below (1) Syncope Syncope type: unspecified Qualified Code(s): R55 - Syncope and collapse (3) Fall Encounter type: initial encounter Qualified Code(s): W19.XXXA - Unspecified fall, initial encounter
[2024-02-17 16:32] LABS: Hematocrit (blood only) 28.5 % (37.0-47.0); Hemoglobin 9.7 g/dl (12.0-16.0)
[2024-02-17] MEDS: HYDROmorphone INJ 0.5 MG/0.5 ML SYR IV STA (17:08)
[2024-02-17] MEDS: OPTIRAY 320 125ml IV ONE (17:47)
[2024-02-17] MEDS: MAGNESIUM SULFATE / D5W 1 GM/100 ML BAG IV SCH (18:07)
[2024-02-17] MEDS ORDERED: Nursing to Pharmacy Communication SCH (18:15)
--- NOTE | 2024-02-17 18:18 | CT Scan Report ---
CT angio abd pelvis wo/w con HISTORY: 74 years-old Female rectal bleeding Acute lower abdominal pain with rectal bleeding and renetta sea. COMPARISON: CT abdomen and pelvis 02/14/2024. TECHNIQUE: CTA abdomen and pelvis was obtained with and without IV contrast. All measurements were ob tained according to NASCET criteria. 3-D coronal and sagittal MIPS were obtained and submitted for re view. A dose lowering technique was used consistent with the principals of KAYLEN. FINDINGS: CTA: Cardiomegaly. Atherosclerosis of the aorta without abdominal aortic aneurysm or dissection. There is patency of the celiac trunk, superior and inferior mesenteric arteries with moderate stenosis at the origin of the inferior mesenteric artery. CT ABDOMEN/PELVIS: A few punctate calcified granulomas and subsegmental atelectasis seen within the lung bases. Trace pl eural effusions with mild left basilar atelectasis versus scarring. No pneumoperitoneum. No pneumatos is. Bilateral sacroiliac bolts are noted. No acute fractures identified. Extensive bony fusion within the thoracolumbar spine with remnants of old postoperative change. Partial resection of a a few left lateral ribs. Mild circumferential the distal esophagus, unchanged. This favors a mild esophagitis. The liver, gall bladder, pancreas, and adrenal glands unremarkable. Enhancing 8 mm splenic lesion is indeterminate. S ubcentimeter bilateral renal hypodense lesions are technically too small to characterize but favor cy sts. Left-sided nephrolithiasis again noted. Punctate right nephrolithiasis. No ureteral stones. No h ydronephrosis. No retroperitoneal or pelvic lymphadenopathy. No pelvic free fluid. Partially decompressed urinary bl adder with wall thickening and punctate intraluminal air. There is a 2 cm pedunculated uterine fibroi d, unchanged. There is improvement of the previously described circumferential thickening within the sigmoid colon and rectum with minimal pericolonic fat stranding at the sigmoid colon. This is consist ent with a mild nonspecific proctocolitis. Scattered large and small bowel air-fluid levels. Colonic diverticulosis. No evidence for acute diverticulitis. No dilated loops of bowel to suggest an obstruc tion. IMPRESSION: 1. Atherosclerosis without aneurysm, dissection or arterial occlusion identified. 2. Improvement of the previously described nonspecific proctocolitis. 3. No bowel obstruction or pneumoperitoneum. 4. Left nephrolithiasis. 5. Foci of air within the urinary bladder may be secondary to instrumentation versus infection. 6. Additional findings as above. ACT 112: Negative or not required by law. The above report was generated using voice recognition software. It may contain grammatical, syntax o r spelling errors. Dictated: 02/17/2024 5:53 PM Transcribed: 02/17/2024 6:14 PM Tarun [id number] [email or web address] Electronically signed by: Andrea López M.D. 02/17/2024 6:17 PM
[2024-02-17] MEDS: ACETAMINOPHEN 325 MG TAB PO PRN (20:27)
[2024-02-17 23:12] LABS: Hematocrit (blood only) 27.3 % (37.0-47.0); Hemoglobin 9.2 g/dl (12.0-16.0)
[2024-02-18] MEDS: ACETAMINOPHEN 1,000 MG/100 ML VIAL IV STA (00:01)
[2024-02-18] MEDS: oxyCODONE HCL IR 5 MG TAB (IMMEDIATE RELEASE) PO PRN (02:49)
[2024-02-18 07:56] LABS: Magnesium 1.7 mg/dl (1.7-2.4)
--- NOTE | 2024-02-18 09:19 | Gastroenterology Progress Note ---
Date of Service February 18, 2024 Assessment & Plan (1) Rectal bleeding: (2) Constipation: (3) Colitis: Plan Patient is a 74 y.o. female with a history of severe constipation admitted with brbpr, LLQ pain and abnormal CT of the colon suggestive of a nonspecific colitis, most likely ischemic given hx. CT with improvement of colitis 02/17/24. -Diet advanced to low residue/lactose. -Continue Cipro/Flagyl for a total of 10 days. -No plan for invasive GI work up at this time. -Supportive care per primary team. -GI sign off. Please contact us if any clinical concerns. Admission and Anticipated Discharge Date Admission Date: February 14, 2024 Supervising Physician Co-Signing Physician Notes Agree with NUPUR Carrizales as above Interviewed and examined patient and agree with above Continue current therapy and supportive care. F/U as outpatient for further evaluation and recommendations Subjective Patient reports feeling tired and thirsty. Reports having a bowel movement with some blood and LLQ pain. CTA yesterday, however demonstrated improvement in the colitis. H&H is relatively stable at 9.2/27.3 this morning. Patient requesting diet. Review of Systems Constitutional: as per Subjective / HPI Gastrointestinal: as per Subjective / HPI Physical Exam Constitutional: WD/WN, vitals as above Respiratory: normal respiratory effort, lungs clear to auscultation Cardiovascular: RRR, no murmur, no edema Gastrointestinal (Abdomen): Inspection/Auscultation: normal bowel sounds Percussion/Palpation: + abdomen tender (LLQ) and abdomen soft; abdomen not rigid Psychiatric: A+Ox3, euthymic affect Results & Data Results & Data Vital Signs (Past 12 Hours) Vital Signs Temp Pulse Pulse Resp BP Pulse Ox O2 Del Method 02/18/24 09:10 36.8 C 78 17 149/82 H 92 Room Air 02/18/24 02:44 36.6 C 74 18 146/84 H 92 Room Air 02/17/24 22:40 36.8 C 85 18 110/69 94 Room Air 02/17/24 22:03 79 Diagnostic Findings Laboratory Results WBC 6.66 K/ul (4.8-10.8) 02/17/24 05:43 RBC 3.10 M/uL (4.20-5.40) L 02/17/24 05:43 Hgb 9.2 g/dl (12.0-16.0) L 02/17/24 22:27 Hct 27.3 % (37.0-47.0) L 02/17/24 22:27 MCV 88.1 fL (80.0-100.0) 02/17/24 05:43 MCH 30.0 pg (25.0-34.0) 02/17/24 05:43 MCHC 34.1 g/dL (32.0-36.0) 02/17/24 05:43 RDW Std Deviation 45.1 fL (36.4-46.3) 02/17/24 05:43 RDW Coeff of [place] 14.1 % (11.5-14.5) 02/17/24 05:43 Plt Count 189 K/uL (130-400) 02/17/24 05:43 MPV 9.9 fL (9.4-12.4) 02/17/24 05:43 Immature Gran % (Auto) 0.2 % 02/14/24 12:05 Neut % (Auto) 57.8 % 02/14/24 12:05 Lymph % (Auto) 31.6 % 02/14/24 12:05 [place] % (Auto) 7.8 % 02/14/24 12:05 Eos % (Auto) 2.1 % 02/14/24 12:05 Baso % (Auto) 0.5 % 02/14/24 12:05 Neut # (Auto) 5.06 K/uL (1.40-6.50) 02/14/24 12:05 Lymph # (Auto) 2.76 K/uL (1.20-3.40) 02/14/24 12:05 [place] # (Auto) 0.68 K/uL (0.11-0.59) H 02/14/24 12:05 Eos # (Auto) 0.18 K/uL (0.00-0.50) 02/14/24 12:05 Baso # (Auto) 0.04 K/uL (0.00-0.20) 02/14/24 12:05 Immature Gran # (Auto) 0.02 K/uL (0.01-0.20) 02/14/24 12:05 PT 12.0 Seconds (9.0-12.0) 02/14/24 12:05 INR 1.1 (0.9-1.1) 02/14/24 12:05 APTT 29 Seconds (21-31) 02/14/24 12:05 PTT Ratio 1.0 02/14/24 12:05 Sodium 141 mmol/L (136-145) 02/17/24 05:43 Potassium 3.7 mmol/L (3.5-5.1) 02/17/24 05:43 Chloride 110 mmol/L (98-107) H 02/17/24 05:43 Carbon Dioxide 25 mmol/L (21-32) 02/17/24 05:43 Anion Gap 6 (3-11) 02/17/24 05:43 BUN 3 mg/dl (6-23) L 02/17/24 05:43 Creatinine 0.55 mg/dl (0.6-1.2) L 02/17/24 05:43 Est Cr Clr Drug Dosing 89.4 ml/min 02/17/24 05:43 Est GFR ( Amer) 105.6 ml/min 02/17/24 05:43 Est GFR (Non-Af Amer) 91.1 ml/min 02/17/24 05:43 BUN/Creatinine Ratio 5.5 (10-20) L 02/17/24 05:43 Glucose 96 mg/dl (70-99(Fasting)) 02/17/24 05:43 POC Glucose 122 mg/dl (70-99) H 02/18/24 08:05 Estimat Average Glucose 123 mg/dl 02/15/24 04:25 Hemoglobin A1c 5.9 % (4.5-5.6) H 02/15/24 04:25 Lactate 1.1 mmol/L (0.4-2.0) 02/14/24 20:27 Calcium 7.8 mg/dl (8.6-10.3) L 02/17/24 05:43 Phosphorus 3.8 mg/dl (2.5-4.9) 02/17/24 05:43 Magnesium 1.7 mg/dl (1.7-2.4) 02/18/24 07:07 Total Bilirubin 0.3 mg/dl (0.2-1.0) 02/16/24 04:20 AST 18 U/L (13-39) 02/16/24 04:20 ALT 14 U/L (7-52) 02/16/24 04:20 Alkaline Phosphatase 66 U/L (34-104) 02/16/24 04:20 Troponin I High Sens 3.5 pg/ml (0-14) 02/14/24 12:05 Total Protein 4.7 gm/dl (6.0-8.3) L 02/16/24 04:20 Albumin 3.1 gm/dl (3.4-5.0) L 02/16/24 04:20 Globulin 1.6 gm/dl (2.5-4.0) L 02/16/24 04:20 Albumin/Globulin Ratio 1.9 (0.9-2) 02/16/24 04:20 Urine Color Yellow 02/14/24 13:22 Urine Appearance Clear (Clear) 02/14/24 13:22 Urine pH 6.5 (4.5-7.5) 02/14/24 13:22 Ur Specific [place] 1.011 (1.000-1.030) 02/14/24 13:22 Urine Protein Negative (Negative) 02/14/24 13:22 Urine Glucose (UA) Negative (Negative) 02/14/24 13:22 Urine Ketones Negative (Negative) 02/14/24 13:22 Urine Blood Negative (Negative) 02/14/24 13:22 Urine Nitrite Negative (Negative) 02/14/24 13:22 Urine Bilirubin Negative (Negative) 02/14/24 13:22 Urine Urobilinogen Negative (Negative) 02/14/24 13:22 Ur Leukocyte Esterase Trace (Negative) H 02/14/24 13:22 Urine WBC (Auto) 0-5 /hpf (0-5) 02/14/24 13:22 Urine RBC (Auto) 0-2 /hpf (0-2) 02/14/24 13:22 U Hyaline Cast (Auto) 3-5 /lpf (0-2) H 02/14/24 13:22 U Epithel Cells (Auto) 0-2 /hpf (0-2) 02/14/24 13:22 Urine Bacteria (Auto) None Seen (None Seen) 02/14/24 13:22 Stl C. cayetanensis PCR Not Detected (NotDetected) 02/14/24 16:47 Stool Rotavirus A PCR Not Detected (NotDetected) 02/14/24 16:47 Stl Adenov F 40/41 PCR Not Detected (NotDetected) 02/14/24 16:47 Stool Astrovirus (PCR) Not Detected (NotDetected) 02/14/24 16:47 Stool Campylobacter PCR Not Detected (NotDetected) 02/14/24 16:47 Stl C. diff Tox B Gene Positive Cdiff Gene (Neg) H 02/14/24 16:47 Stl C.difficile Tox A&B Negative Cdiff Toxin (Negative) 02/14/24 16:47 Stool Cryptosporidium PCR Not Detected (NotDetected) 02/14/24 16:47 Stl E.coli Shiga Tox PCR Not Detected (NotDetected) 02/14/24 16:47 Stl Enterotoxigenic E PCR Not Detected (NotDetected) 02/14/24 16:47 Stool EPEC (PCR) Not Detected (NotDetected) 02/14/24 16:47 Stool EAEC (PCR) Not Detected (NotDetected) 02/14/24 16:47 Stl E. histolytica PCR Not Detected (NotDetected) 02/14/24 16:47 Stool Giardia Lamblia PCR Not Detected (NotDetected) 02/14/24 16:47 Stool Salmonella PCR Not Detected (NotDetected) 02/14/24 16:47 Stool Sapovirus (PCR) Not Detected (NotDetected) 02/14/24 16:47 Stl P. shigelloides PCR Not Detected (NotDetected) 02/14/24 16:47 Stl Shigella/EIEC PCR Not Detected (NotDetected) 02/14/24 16:47 St Y.enterocolitica PCR Not Detected (NotDetected) 02/14/24 16:47 Stool Vibrio (PCR) Not Detected (NotDetected) 02/14/24 16:47 Stl Vibrio cholerae PCR Not Detected (NotDetected) 02/14/24 16:47 Stl Norovirus GI/GII PCR Not Detected (NotDetected) 02/14/24 16:47 Blood Type O Positive 02/14/24 12:04 Antibody Screen NEGATIVE 02/14/24 12:04 Crossmatch See Detail 02/14/24 12:[address] 04/28/24 12:[address] DOSE: HISTORY: Trauma TECHNIQUE: Multiaxial CT images of the cervical spine were performed and reformatted in the sagittal and coronal plane without the use of contrast. A dose lowering technique was utilized adhering to the principles of ALARA. COMPARISON: Cervical spine CT 04/15/2023. FINDINGS: No fractures. No subluxation. Prevertebral soft tissues and the C1-C2 interval are intact. No pneumothorax. [id number] degenerative changes again noted. IMPRESSION: No fractures within the cervical spine. ACT 112: Negative or not required by law. Electronically signed by: Bulmaro Zavaleta M.D. 02/14/2024 1:[address] 02/14/24 12:[address] DOSE: HISTORY: Trauma, fall on eliquis TECHNIQUE: Multiaxial CT images of the head were performed without the use of intravenous contrast. Automated exposure control was utilized for this study. A dose lowering technique was utilized adhering to the principles of ALARA. Comparison: Head CT 04/15/2023. Findings: The paranasal sinuses and mastoid air cells are clear. The calvarium and skull base are intact. The ventricles and sulci are within normal limits. There is no mass, hematoma, midline shift, or acute infarct. Impression: No acute intracranial abnormality. ACT 112: Negative or not required by law. Electronically signed by: Bulmaro Zavaleta M.D. 02/14/2024 1:33 PM Abdomen/Pelvis CT 02/14/24 12:[address] WITH IV CONTRAST CT DOSE: 2561.38 mGy.cm HISTORY: ab pain, rectal/vaginal bleeding, fall on eliquis TECHNIQUE: Multiaxial CT images of the abdomen and pelvis were performed following the use of intravenous contrast. A dose lowering technique was utilized adhering to the principles of ALARA. COMPARISON STUDY: Abdomen and pelvis CT 12/27/2023. FINDINGS: A few punctate calcified granulomas and subsegmental atelectasis seen within the lung bases. No pneumoperitoneum. No pneumatosis. Bilateral sacroiliac bolts are noted. No acute fractures identified. Extensive bony fusion within the thoracolumbar spine with remnants of old postoperative change. Partial resection of a a few left lateral ribs. Mild circumferential the distal esophagus, unchanged. This favors a mild esophagitis. The liver, gallbladder, pancreas, spleen, and adrenal glands unremarkable. Subcentimeter bilateral renal hypodense lesions are technically too small to characterize but favor cysts. Left-sided nephrolithiasis again noted. No ureteral stones. No hydronephrosis. The main portal vein is patent. Calcified plaque within the normal caliber abdominal aorta. No retroperitoneal or pelvic lymphadenopathy. No pelvic free fluid. The bladder is unremarkable. There is a 2 cm pedunculated uterine fibroid, unchanged. Mild circumferential thickening within the sigmoid colon and rectum with minimal pericolonic fat stranding at the sigmoid colon. This is consistent with a mild nonspecific proctocolitis. Colonic diverticulosis. No evidence for acute diverticulitis. No dilated loops of bowel to suggest an obstruction. IMPRESSION: 1. No acute traumatic process within the abdomen or pelvis. 2. Mild circumferential thickening of the sigmoid colon and rectum with mild pericolonic fat stranding at the mid sigmoid colon. This consistent with a nonspecific proctocolitis. This favors an infectious or inflammatory process. 3. Left-sided nephrolithiasis. No hydronephrosis. 4. Colonic diverticulosis. No evidence for acute diverticulitis. 5. Additional findings as described above. ACT 112: Negative or not required by law. Electronically signed by: Bulmaor Zavaleta M.D. 02/14/2024 1:31 PM Shoulder X-Ray 02/14/24 13:59 XR shoulder RT min 2V routine CLINICAL HISTORY: fall, pain COMPARISON STUDY: Right shoulder 10/19/2023. FINDINGS: The bones are osteopenic. No acute fracture or dislocation within the right shoulder. The right clavicle is intact. Mild widening of the AC joint is likely chronic. Narrowing of the subacromial space consistent with chronic rotator cuff injury. IMPRESSION: No acute fracture or dislocation within the right shoulder. ACT 112: Negative or not required by law. Electronically signed by: Bulmaro Zavaleta M.D. 02/14/2024 2:39 PM Pelvis Ultrasound 02/14/24 15:18 Exam(s): US PELVIS EXAM: US Pelvis Transabdominal and Transvaginal, Complete CLINICAL HISTORY: R/o uterine bleed. TECHNIQUE: Real-time complete transabdominal and transvaginal pelvic ultrasound with image documentation. Transvaginal imaging was used for better evaluation of the endometrium and adnexa. COMPARISON: No relevant prior studies available. FINDINGS: Uterus/cervix: The uterus measures 5.7 x 3 x 3.9 cm. There is a partially pedunculated rounded heterogeneously echogenic mass extending from the anterior uterine fundus measuring 1.5 x 1.8 cm with internal vascular flow. The endometrial stripe measures only 1.7 mm. No increased vascular flow noted. No fluid in the endometrial canal. Right ovary: The right ovary measures 1.7 x 0.6 x 1.2 cm. Internal vascular flow noted. Normal blood flow. Left ovary: Left ovary measures 1.1 x 1.5 x 1 cm. Internal vascular flow. Normal blood flow. Free fluid: No free fluid. Bladder: Unremarkable as visualized. Wall is normal thickness for degree of distention. IMPRESSION: 1. The endometrial stripe measures only 1.7 mm. No increased vascular flow noted. No fluid in the endometrial canal. 2. Pedunculated fibroid extending from the anterior fundus measuring 1.5 x 1.8 cm. 3. The ovaries are unremarkable without evidence for torsion. Electronically signed by: Kuldip Arevalo MD 02/14/24 21:44 PM Abdomen/Pelvis CTA 02/17/24 14:28 CT angio abd pelvis wo/w con HISTORY: 74 years-old Female rectal bleeding Acute lower abdominal pain with rectal bleeding and nausea. COMPARISON: CT abdomen and pelvis 02/14/2024. TECHNIQUE: CTA abdomen and pelvis was obtained with and without IV contrast. All measurements were obtained according to NASCET criteria. 3-D coronal and sagittal MIPS were obtained and submitted for review. A dose lowering technique was used consistent with the principals of KAYLEN. FINDINGS: CTA: Cardiomegaly. Atherosclerosis of the aorta without abdominal aortic aneurysm or dissection. There is patency of the celiac trunk, superior and inferior mesenteric arteries with moderate stenosis at the origin of the inferior mesenteric artery. CT ABDOMEN/PELVIS: A few punctate calcified granulomas and subsegmental atelectasis seen within the lung bases. Trace pleural effusions with mild left basilar atelectasis versus scarring. No pneumoperitoneum. No pneumatosis. Bilateral sacroiliac bolts are noted. No acute fractures identified. Extensive bony fusion within the thoracolumbar spine with remnants of old postoperative change. Partial resection of a a few left lateral ribs. Mild circumferential the distal esophagus, unchanged. This favors a mild esophagitis. The liver, gallbladder, pancreas, and adrenal glands unremarkable. Enhancing 8 mm splenic lesion is indeterminate. Subcentimeter bilateral renal hypodense lesions are technically too small to characterize but favor cysts. Left-sided nephrolithiasis again noted. Punctate right nephrolithiasis. No ureteral stones. No hydronephrosis. No retroperitoneal or pelvic lymphadenopathy. No pelvic free fluid. Partially decompressed urinary bladder with wall thickening and punctate intraluminal air. There is a 2 cm pedunculated uterine fibroid, unchanged. There is improvement of the previously described circumferential thickening within the sigmoid colon and rectum with minimal pericolonic fat stranding at the sigmoid colon. This is consistent with a mild nonspecific proctocolitis. Scattered large and small bowel air-fluid levels. Colonic diverticulosis. No evidence for acute diverticulitis. No dilated loops of bowel to suggest an obstruction. IMPRESSION: 1. Atherosclerosis without aneurysm, dissection or arterial occlusion identified. 2. Improvement of the previously described nonspecific proctocolitis. 3. No bowel obstruction or pneumoperitoneum. 4. Left nephrolithiasis. 5. Foci of air within the urinary bladder may be secondary to instrumentation versus infection. 6. Additional findings as above. ACT 112: Negative or not required by law. The above report was generated using voice recognition software. It may contain grammatical, syntax or spelling errors. Dictated: 02/17/2024 5:53 PM Transcribed: 02/17/2024 6:14 PM Tarun [id number] [email or web address] Electronically signed by: Andrea López M.D. 02/17/2024 6:17 PM PG Care Time/CCT Total # of Minutes Spent Total Time Spent with Patient: Total time spent is greater than 50% in coordination of care (as documented) at patient's floor/unit and/or counseling patient: Coding Level of Care Code 58948 SUB INP/OBS CARE 3/50MIN Diagnoses Rectal bleeding K62.5 Constipation K59.00 Colitis K52.9
[2024-02-18 09:54] LABS: BUN Creatinine Ratio 5.1 (10-20); Creatinine Clr Calc Pharmacy 82.9 ml/min; Est GFR (African American) 103.2 ml/min; Potassium 3.5 mmol/L (3.5-5.1)
[2024-02-18 10:03] LABS: Basophils # (auto) 0.03 K/uL (0.00-0.20); Basophils % (auto) 0.5 %; Eosinophils # (auto) 0.23 K/uL (0.00-0.50); Eosinophils % (auto) 4.1 %; Hematocrit (blood only) 28.9 % (37.0-47.0); Hemoglobin 9.7 g/dl (12.0-16.0); Immature Granulocytes # (auto) 0.01 K/uL (0.01-0.20); Immature Granulocytes % (auto) 0.2 %; Lymphocytes # (auto) 1.36 K/uL (1.20-3.40); Lymphocytes % (auto) 24.5 %; Mean Corpuscular Hemoglobin 29.4 pg (25.0-34.0); Mean Corpuscular Hgb Conc 33.6 g/dL (32.0-36.0); Mean Corpuscular Volume 87.6 fL (80.0-100.0); Mean Platelet Volume 9.5 fL (9.4-12.4); Monocytes # (auto) 0.52 K/uL (0.11-0.59); Monocytes % (auto) 9.4 %; Neutrophils % (auto) 61.3 %; Platelet Count 197 K/uL (130-400); RDW Standard Deviation 44.3 fL (36.4-46.3); White Blood Count 5.55 K/ul (4.8-10.8)
--- NOTE | 2024-02-18 18:11 | Hospitalist Progress Note ---
Date of Service February 18, 2024 Assessment & Plan (1) Syncope: (2) Rectal bleeding: (3) Fall: (4) CAD (coronary artery disease): Plan: per previous attending notes with addendum: - Last echo from 11/06/22 showing LVEF of 55-59%, mildly increased LV wall thickness, left ventricular diastolic function is mildly abnormal. No valvular disease. - Repeat echo with syncopal episode but likely due to acute blood loss - [place] [facility] [place] [facility] [place], Dr. Hernandez - Blood loss of 2g compared to her baseline is noted -- hgb of 13.3 from 02/09/24 reviewed in [facility], as well as 13 in October. - CT imaging with possible proctocolitis - Concern for vaginal bleeding - check US vagina/uterus - 1. The endometrial stripe measures only 1.7 mm. No increased vascular flow noted. No fluid in the endometrial canal. 2. Pedunculated fibroid extending from the anterior fundus measuring 1.5 x 1.8 cm. 3. The ovaries are unremarkable without evidence for torsion. EMERGENCY MAN consulted- per their exam - does not seem like vaginal bleed and awaiting pelvis US (pelvic US as above) - Repeat H&H q6H, trend - Hgb 8.7 on 02/14 - blood consent obtained - transfused 1 unit of pRBC - On eliquis for hx of DVT/PE in 2014 - HOLD , also hold ASA - Continue statin therapy. antihypertensive medications as below - Started Cipro/flagyl IV on admission - developed rash with cipro and received benadryl. switched to ceftriaxone w/ flagyl. - stool studies obtained - per RN stool sample was grossly blood, c diff gene positive - rest of stool PCR negative. - PPI IV BID - GI consulted - CT of the colon suggestive of a nonspecific colitis, most likely ischemic given hx. Diet advanced to full liquid with further advancement to low residue as tolerated. Continue antibiotics for a total of 10 days. Discussed w/ GI - cont. abx but no need for PO vanco 02/15 Pt reports no bleeding since yesterday and overall feeling better. Abd. pain improved. 02/16 Having recurrence of hematochezia Check H&H at 4 PM GI service notified, CT angiogram abdomen and pelvis ordered Keep n.p.o. after midnight for possible procedure in a.m. Monitor closely 5/2 Hematochezia has resolved Hemoglobin stable around 9 Appreciate GI service recommendations Continue diet DC IV fluids Monitor closely (5) Hypertension: Plan: -Home medications include: Metoprolol succinate 100 mg daily, Lasix 40 mg daily, spironolactone 25 mg daily - HOLD diuretics, cont. metoprolol. BP stable overall Continue to monitor closely (6) Dyslipidemia: Plan: -Chronic, stable May continue atorvastatin (7) Diabetes mellitus, type 2: Plan: -ISS with Accu-Cheks ACHS -Patient is on Ozempic, Trulance 3 mg daily (8) Chronic pain: Plan: -PDMP reviewed, patient is on oxycodone 5 mg every 4 hours as needed. She was called in a prescription for [address] Rosado who she has followed with with orthopedics on 02/07, now she would be out of her oxycodone. -It is unclear at this time if narcotic use has prompted worsening syncope - last dose was day prior to admission -IV MS for severe pain -Patient may continue pregabalin 25 mg daily DVT ppx: teds, scds Disposition Possible discharge tomorrow when medically stable Admission and Anticipated Discharge Date Admission Date: February 14, 2024 Subjective Follow-up for GI bleed, etc. Seen resting in bed, comfortable, not in distress Good spirits States she feels better overall today No recurrence of hematochezia today No abdominal pain, nausea, fevers or chills No other symptoms Review of Systems Review of Systems: all noted and negative except for above Physical Exam Physical Exam: General- oriented x 3, not in distress, speaks in sentences with no effort or accessory muscle use Eyes- anicteric Neck- no JVD Lungs- clear breath sounds bilaterally, no crackles or wheezes Heart- normal rate, regular rhythm; no murmurs Abdomen- normal bowel sounds, nondistended, soft, nontender Extremities- no pretibial edema, no calf tenderness Neuro- alert, oriented x 3; no gross focal neurologic deficits Skin- warm & dry Results & Data Results & Data Vital Signs (Past 12 Hours) Vital Signs Temp Pulse Pulse Resp BP Pulse Ox O2 Del Method 02/18/24 16:07 37.2 C 79 17 137/81 91 Room Air 02/18/24 14:53 78 02/18/24 11:23 36.9 C 79 17 168/95 H 92 Room Air 02/18/24 11:00 80 02/18/24 09:10 36.8 C 78 17 149/82 H 92 Room Air all noted and reviewed including below (1) Syncope Syncope type: unspecified Qualified Code(s): R55 - Syncope and collapse (3) Fall Encounter type: initial encounter Qualified Code(s): W19.XXXA - Unspecified fall, initial encounter
[2024-02-19] MEDS ORDERED: HEPARIN 100 UNIT/ML 5ML FLUSH FLUSH PRN (09:36)
[2024-02-19 09:50] LABS: Basophils # (auto) 0.04 K/uL (0.00-0.20); Basophils % (auto) 0.6 %; Eosinophils # (auto) 0.23 K/uL (0.00-0.50); Eosinophils % (auto) 3.5 %; Hematocrit (blood only) 27.3 % (37.0-47.0); Hemoglobin 9.3 g/dl (12.0-16.0); Immature Granulocytes # (auto) 0.02 K/uL (0.01-0.20); Immature Granulocytes % (auto) 0.3 %; Lymphocytes # (auto) 1.43 K/uL (1.20-3.40); Lymphocytes % (auto) 21.8 %; Mean Corpuscular Hemoglobin 29.9 pg (25.0-34.0); Mean Corpuscular Hgb Conc 34.1 g/dL (32.0-36.0); Mean Corpuscular Volume 87.8 fL (80.0-100.0); Mean Platelet Volume 9.6 fL (9.4-12.4); Monocytes # (auto) 0.58 K/uL (0.11-0.59); Monocytes % (auto) 8.8 %; Neutrophils # (auto) 4.27 K/uL (1.40-6.50); Platelet Count 204 K/uL (130-400); RDW Coefficient of Variation 14.3 % (11.5-14.5); RDW Standard Deviation 45.8 fL (36.4-46.3); Red Blood Count 3.11 M/uL (4.20-5.40); White Blood Count 6.57 K/ul (4.8-10.8)
[2024-02-19 10:17] LABS: BUN Creatinine Ratio 7.7 (10-20); Calcium 7.5 mg/dl (8.6-10.3); Creatinine Clr Calc Pharmacy 75.8 ml/min; Est GFR (Non-African American) 86.2 ml/min; Potassium 3.8 mmol/L (3.5-5.1)
--- NOTE | 2024-02-19 19:47 | Hospitalist Progress Note ---
Date of Service February 19, 2024 delayed entry date of service noted above Assessment & Plan (1) Syncope: (2) Rectal bleeding: (3) Fall: (4) CAD (coronary artery disease): Plan: per previous attending notes with addendum: - Last echo from 11/06/22 showing LVEF of 55-59%, mildly increased LV wall thickness, left ventricular diastolic function is mildly abnormal. No valvular disease. - Repeat echo with syncopal episode but likely due to acute blood loss - [place] [facility] [place] [facility] [place], Dr. Hernandez - Blood loss of 2g compared to her baseline is noted -- hgb of 13.3 from 02/09/24 reviewed in [facility], as well as 13 in October. - CT imaging with possible proctocolitis - Concern for vaginal bleeding - check US vagina/uterus - 1. The endometrial stripe measures only 1.7 mm. No increased vascular flow noted. No fluid in the endometrial canal. 2. Pedunculated fibroid extending from the anterior fundus measuring 1.5 x 1.8 cm. 3. The ovaries are unremarkable without evidence for torsion. [employer] consulted- per their exam - does not seem like vaginal bleed and awaiting pelvis US (pelvic US as above) - Repeat H&H q6H, trend - Hgb 8.7 on 02/14 - blood consent obtained - transfused 1 unit of pRBC - On eliquis for hx of DVT/PE in 2014 - HOLD , also hold ASA - Continue statin therapy. antihypertensive medications as below - Started Cipro/flagyl IV on admission - developed rash with cipro and received benadryl. switched to ceftriaxone w/ flagyl. - stool studies obtained - per RN stool sample was grossly blood, c diff gene positive - rest of stool PCR negative. - PPI IV BID - GI consulted - CT of the colon suggestive of a nonspecific colitis, most likely ischemic given hx. Diet advanced to full liquid with further advancement to low residue as tolerated. Continue antibiotics for a total of 10 days. Discussed w/ GI - cont. abx but no need for PO vanco 02/15 Pt reports no bleeding since yesterday and overall feeling better. Abd. pain improved. 02/16 Having recurrence of hematochezia Check H&H at 4 PM GI service notified, CT angiogram abdomen and pelvis ordered Keep n.p.o. after midnight for possible procedure in a.m. Monitor closely 5/2 Hematochezia has resolved Hemoglobin stable around 9 Appreciate GI service recommendations Continue diet DC IV fluids Monitor closely /3 stable overall No recurrence of hematochezia Hemoglobin stable Tolerating diet well Okay for discharge PCP follow-up in 1 week Hemoglobin check on follow-up with PCP (5) Hypertension: Plan: -Home medications include: Metoprolol succinate 100 mg daily, Lasix 40 mg daily, spironolactone 25 mg daily - HOLD diuretics, cont. metoprolol. BP stable overall Continue to monitor closely (6) Dyslipidemia: Plan: -Chronic, stable May continue atorvastatin (7) Diabetes mellitus, type 2: Plan: -ISS with Accu-Cheks ACHS -Patient is on Ozempic, Trulance 3 mg daily (8) Chronic pain: Plan: -PDMP reviewed, patient is on oxycodone 5 mg every 4 hours as needed. DVT ppx: teds, scds Disposition Discharge to home PCP follow-up in 1 week Admission and Anticipated Discharge Date Admission Date: February 14, 2024 Subjective ff up for GI bleed, etc seen resting in bed, comfortable in good spirits states she feels fine overall no chest pain, dyspnea, palpitations, dizziness no abdominal pain, nausea/vomiting (+) BMs, no bleeding No other symptoms States she is ready for discharge to home today Review of Systems Review of Systems: all noted and negative except for above Physical Exam Physical Exam: General- oriented x 3, not in distress, speaks in sentences with no effort or accessory muscle use Eyes- anicteric Neck- no JVD Lungs- clear breath sounds bilaterally, no crackles or wheezes Heart- normal rate, regular rhythm; no murmurs Abdomen- normal bowel sounds, nondistended, soft, nontender Extremities- no pretibial edema, no calf tenderness Neuro- alert, oriented x 3; no gross focal neurologic deficits Skin- warm & dry Results & Data Results & Data Vital Signs (Past 12 Hours) Vital Signs Temp Pulse Pulse Pulse Pulse Resp BP 02/19/24 12:13 36.7 C 72 74 68 18 145/82 H 02/19/24 12:01 75 02/19/24 11:12 36.7 C 68 18 145/82 H 02/19/24 08:00 36.6 C 78 18 166/87 H Pulse Ox O2 Del Method 02/19/24 12:13 91 02/19/24 12:01 02/19/24 11:12 91 Room Air 02/19/24 08:00 92 Room Air all noted and reviewed including below (1) Syncope Syncope type: unspecified Qualified Code(s): R55 - Syncope and collapse (3) Fall Encounter type: initial encounter Qualified Code(s): W19.XXXA - Unspecified fall, initial encounter
--- NOTE | 2024-02-25 13:59 | Discharge Summary ---
Discharge Summary Date of Service February 25, 2024 Notes For Next Care Provider Medication Changes From Visit Ciprofloxacin, Flagyl-antibiotics for colitis If still without rectal bleeding, you may resume your aspirin tomorrow. Wait until further advised by your primary care physician on your follow-up visit before restarting Eliquis. Maintain soft low fiber diet for now. Admission HPI Per Admitting Provider This is a 74 yo F with PMHx chronic diastolic CHF, HTN, HLD, CAD, DVT Eliquis, DM type II, chronic pain syndrome, s/p R rotator cuff repair, GERD, bipolar 2 disorder, who presents to the hospital 1 day after she sustained a fall and syncope, with persistent lightheadedness and dizziness today. Presented with rectal and vaginal bleeding, on eliquis. BRBPR since her fall yesterday, and is concerned there is also vaginal bleeding. Pt reports that she noticed this yesterday, 3x yesterday it was coming out of the vagina "pouring out". She reports then she developed bleeding from her rectum. She was using pads that were soaked with blood, going through multiple pads at home yesterday. She states it has slowed down at this time and has changed 1 or 2 pads. Pt has followed with GI and has had colonoscopy and endoscopy in the past. She has not had any bleeding from vagina for many years. Pt feels chilled, denies any chest pain, shortness of breath. She has lower left quadrant abdominal pain currently which started yesterday with the bleeding. Pt admits to having watery explosive diarrhea 3x yesterday. Denies any undercooked foods, contaminated/spoiled foods. Pt has not had much to eat today. Tolerated clears. Took all her home medications this morning including BP med, diuretics, Eliquis and aspirin. Principal Dx & Hospital Course #1 = Principal Diagnosis (1) Syncope: (2) Rectal bleeding: (3) Fall: (4) CAD (coronary artery disease): per previous attending notes with addendum: - Last echo from 11/06/22 showing LVEF of 55-59%, mildly increased LV wall thickness, left ventricular diastolic function is mildly abnormal. No valvular disease. - Repeat echo with syncopal episode but likely due to acute blood loss - [place] [facility] [place], Dr. Hernandez - Blood loss of 2g compared to her baseline is noted -- hgb of 13.3 from 02/09/24 reviewed in [facility], as well as 13 in October. - CT imaging with possible proctocolitis - Concern for vaginal bleeding - check US vagina/uterus - 1. The endometrial stripe measures only 1.7 mm. No increased vascular flow noted. No fluid in the endometrial canal. 2. Pedunculated fibroid extending from the anterior fundus measuring 1.5 x 1.8 cm. 3. The ovaries are unremarkable without evidence for torsion. [employer] consulted- per their exam - does not seem like vaginal bleed and awaiting pelvis US (pelvic US as above) - Repeat H&H q6H, trend - Hgb 8.7 on 02/14 - blood consent obtained - transfused 1 unit of pRBC - On eliquis for hx of DVT/PE in 2014 - HOLD , also hold ASA - Continue statin therapy. antihypertensive medications as below - Started Cipro/flagyl IV on admission - developed rash with cipro and received benadryl. switched to ceftriaxone w/ flagyl. - stool studies obtained - per RN stool sample was grossly blood, c diff gene positive - rest of stool PCR negative. - PPI IV BID - GI consulted - CT of the colon suggestive of a nonspecific colitis, most likely ischemic given hx. Diet advanced to full liquid with further advancement to low residue as tolerated. Continue antibiotics for a total of 10 days. Discussed w/ GI - cont. abx but no need for PO vanco 02/15 Pt reports no bleeding since yesterday and overall feeling better. Abd. pain improved. 02/16 Having recurrence of hematochezia Check H&H at 4 PM GI service notified, CT angiogram abdomen and pelvis ordered Keep n.p.o. after midnight for possible procedure in a.m. Monitor closely /2 Hematochezia has resolved Hemoglobin stable around 9 Appreciate GI service recommendations Continue diet DC IV fluids Monitor closely /3 stable overall No recurrence of hematochezia Hemoglobin stable Tolerating diet well Okay for discharge PCP follow-up in 1 week Hemoglobin check on follow-up with PCP (5) Hypertension: -Home medications include: Metoprolol succinate 100 mg daily, Lasix 40 mg daily, spironolactone 25 mg daily - HOLD diuretics, cont. metoprolol. BP stable overall Continue to monitor closely (6) Dyslipidemia: -Chronic, stable May continue atorvastatin (7) Diabetes mellitus, type 2: -ISS with Accu-Cheks ACHS -Patient is on Ozempic, Trulance 3 mg daily (8) Chronic pain: -PDMP reviewed, patient is on oxycodone 5 mg every 4 hours as needed. DVT ppx: teds, scds Disposition Discharge to home PCP follow-up in 1 week Discharge Exam General- oriented x 3, not in distress, speaks in sentences with no effort or accessory muscle use Eyes- anicteric Neck- no JVD Lungs- clear breath sounds bilaterally, no rales/wheezes Heart- normal rate, regular rhythm; no murmurs Abdomen- normal bowel sounds, nondistended, soft, nontender Extremities- no pretibial edema, no calf tenderness Neuro- alert, oriented x 3; no gross focal neurologic deficits Skin- warm & dry Updated Medication List Medication Instructions Recorded Confirmed Type atorvastatin 40 mg tablet (Lipitor) 40 mg PO QAM 12/13/18 02/14/24 History levothyroxine 75 mcg tablet 75 mcg PO QAM 12/13/18 02/14/24 History promethazine 25 mg tablet 25 mg PO Q6H PRN Nausea 05/12/19 02/14/24 History epinephrine 0.3 mg/0.3 mL 0.3 mg IM Q3H PRN Allergic Reaction 05/23/19 02/14/24 History injection syringe nitroglycerin 0.3 mg sublingual 0.3 mg sublingual UD PRN Chest Pain 05/23/19 02/14/24 History tablet (Nitrostat) olopatadine 0.2 % eye drops 1 drp ophthalmic (eye) QA 05/23/19 02/14/24 History tizanidine 4 mg tablet 4 mg PO BID PRN Muscle Spasm 04/03/20 02/14/24 History trazodone 100 mg tablet 300 mg PO HS 04/03/20 02/14/24 History furosemide 20 mg tablet 40 mg PO QAM 10/05/20 02/14/24 History loperamide 2 mg capsule 2 mg PO QID PRN Diarrhea 02/15/21 02/14/24 History apixaban 5 mg tablet (Eliquis) 5 mg PO BID 10/11/21 02/14/24 History metoprolol succinate 100 mg 100 mg PO QAM 01/20/23 02/14/24 History tablet,extended release 24 hr semaglutide 2 mg/dose (8 mg/3 mL) 2 mg subcut WK 01/20/23 02/14/24 History subcutaneous pen injector (Ozempic) spironolactone 25 mg tablet 25 mg PO QAM 01/20/23 02/14/24 History buspirone 10 mg tablet 10 mg PO BID 02/20/23 02/14/24 History plecanatide 3 mg tablet (Trulance) 3 mg PO QAM #90 tabs 06/11/23 02/14/24 Rx acetaminophen 500 mg tablet 1,000 mg (2 x 500 mg) PO Q8 PRN 07/12/23 02/14/24 Rx (Tylenol Extra Strength) pain #100 tabs ondansetron 4 mg disintegrating 4 mg PO Q6H PRN nausea and 10/26/23 02/14/24 Rx tablet vomiting #10 tabs pantoprazole 40 mg tablet,delayed 40 mg PO BID #60 tabs 12/21/23 02/14/24 Rx release pregabalin 25 mg capsule 25 mg PO .COMPLEX #90 caps 02/01/24 02/14/24 Rx aspirin 81 mg tablet,delayed 81 mg PO QAM #0 tabs 02/19/24 02/14/24 Rx release oxycodone 5 mg tablet 5 mg PO Q8H PRN pain #18 tabs 02/24/24 02/24/24 Rx Hospital Stay Data Consultations 02/14/24 14:31 ED Decision to Admit Stat 02/14/24 14:58 Consult Gastroenterology Routine 02/14/24 15:39 Consult Gynecology Routine Diagnostic Imagining Performed Laboratory Results WBC 6.57 K/ul (4.8-10.8) 02/19/24 09:31 RBC 3.11 M/uL (4.20-5.40) L 02/19/24 09:31 Hgb 9.3 g/dl (12.0-16.0) L 02/19/24 09:31 Hct 27.3 % (37.0-47.0) L 02/19/24 09:31 MCV 87.8 fL (80.0-100.0) 02/19/24 09:31 MCH 29.9 pg (25.0-34.0) 02/19/24 09:31 MCHC 34.1 g/dL (32.0-36.0) 02/19/24 09: RDW Std Deviation 45.8 fL (36.4-46.3) 02/19/24 09: RDW Coeff of [place] 14.3 % (11.5-14.5) 02/19/24 09: Plt Count 204 K/uL (130-400) 02/19/24 09: MPV 9.6 fL (9.4-12.4) 02/19/24 09: Immature Gran % (Auto) 0.3 % 02/19/24 09: Neut % (Auto) 65.0 % 02/19/24 09: Lymph % (Auto) 21.8 % 02/19/24 09: [place] % (Auto) 8.8 % 02/19/24 09: Eos % (Auto) 3.5 % 02/19/24 09: Baso % (Auto) 0.6 % 02/19/24 09: Neut # (Auto) 4.27 K/uL (1.40-6.50) 02/19/24 09: Lymph # (Auto) 1.43 K/uL (1.20-3.40) 02/19/24 09:31 [place] # (Auto) 0.58 K/uL (0.11-0.59) 02/19/24 09: Eos # (Auto) 0.23 K/uL (0.00-0.50) 02/19/24 09: Baso # (Auto) 0.04 K/uL (0.00-0.20) 02/19/24 09: Immature Gran # (Auto) 0.02 K/uL (0.01-0.20) 02/19/24 09: PT 12.0 Seconds (9.0-12.0) 02/14/24 12:05 INR 1.1 (0.9-1.1) 02/14/24 12:05 APTT 29 Seconds (21-31) 02/14/24 12:05 PTT Ratio 1.0 02/14/24 12:05 Sodium 139 mmol/L (136-145) 02/19/24 09: Potassium 3.8 mmol/L (3.5-5.1) 02/19/24 09:31 Chloride 108 mmol/L (98-107) H 02/19/24 09:31 Carbon Dioxide 27 mmol/L (21-32) 02/19/24 09:31 Anion Gap 4 (3-11) 02/19/24 09:31 BUN 5 mg/dl (6-23) L 02/19/24 09:31 Creatinine 0.65 mg/dl (0.6-1.2) 02/19/24 09:31 Est Cr Clr Drug Dosing 75.8 ml/min 02/19/24 09:31 Est GFR ( Amer) 100.0 ml/min 02/19/24 09:31 Est GFR (Non-Af Amer) 86.2 ml/min 02/19/24 09:31 BUN/Creatinine Ratio 7.7 (10-20) L 02/19/24 09:31 Glucose 140 mg/dl (70-99(Fasting)) H 02/19/24 09:31 POC Glucose 112 mg/dl (70-99) H 02/19/24 12:05 Estimat Average Glucose 123 mg/dl 02/15/24 04:25 Hemoglobin A1c 5.9 % (4.5-5.6) H 02/15/24 04:25 Lactate 1.1 mmol/L (0.4-2.0) 02/14/24 20:27 Calcium 7.5 mg/dl (8.6-10.3) L 02/19/24 09:31 Phosphorus 3.8 mg/dl (2.5-4.9) 02/17/24 05:43 Magnesium 1.7 mg/dl (1.7-2.4) 02/18/24 07:07 Total Bilirubin 0.3 mg/dl (0.2-1.0) 02/16/24 04:20 AST 18 U/L (13-39) 02/16/24 04:20 ALT 14 U/L (7-52) 02/16/24 04:20 Alkaline Phosphatase 66 U/L (34-104) 02/16/24 04:20 Troponin I High Sens 3.5 pg/ml (0-14) 02/14/24 12:05 Total Protein 4.7 gm/dl (6.0-8.3) L 02/16/24 04:20 Albumin 3.1 gm/dl (3.4-5.0) L 02/16/24 04:20 Globulin 1.6 gm/dl (2.5-4.0) L 02/16/24 04:20 Albumin/Globulin Ratio 1.9 (0.9-2) 02/16/24 04:20 Urine Color Yellow 02/14/24 13:22 Urine Appearance Clear (Clear) 02/14/24 13:22 Urine pH 6.5 (4.5-7.5) 02/14/24 13:22 Ur Specific [place] 1.011 (1.000-1.030) 02/14/24 13:22 Urine Protein Negative (Negative) 02/14/24 13:22 Urine Glucose (UA) Negative (Negative) 02/14/24 13:22 Urine Ketones Negative (Negative) 02/14/24 13:22 Urine Blood Negative (Negative) 02/14/24 13:22 Urine Nitrite Negative (Negative) 02/14/24 13:22 Urine Bilirubin Negative (Negative) 02/14/24 13:22 Urine Urobilinogen Negative (Negative) 02/14/24 13:22 Ur Leukocyte Esterase Trace (Negative) H 02/14/24 13:22 Urine WBC (Auto) 0-5 /hpf (0-5) 02/14/24 13:22 Urine RBC (Auto) 0-2 /hpf (0-2) 02/14/24 13:22 U Hyaline Cast (Auto) 3-5 /lpf (0-2) H 02/14/24 13:22 U Epithel Cells (Auto) 0-2 /hpf (0-2) 02/14/24 13:22 Urine Bacteria (Auto) None Seen (None Seen) 02/14/24 13:22 Stl C. cayetanensis PCR Not Detected (NotDetected) 02/14/24 16:47 Stool Rotavirus A PCR Not Detected (NotDetected) 02/14/24 16:47 Stl Adenov F 40/41 PCR Not Detected (NotDetected) 02/14/24 16:47 Stool Astrovirus (PCR) Not Detected (NotDetected) 02/14/24 16:47 Stool Campylobacter PCR Not Detected (NotDetected) 02/14/24 16:47 Stl C. diff Tox B Gene Positive Cdiff Gene (Neg) H 02/14/24 16:47 Stl C.difficile Tox A&B Negative Cdiff Toxin (Negative) 02/14/24 16:47 Stool Cryptosporidium PCR Not Detected (NotDetected) 02/14/24 16:47 Stl E.coli Shiga Tox PCR Not Detected (NotDetected) 02/14/24 16:47 Stl Enterotoxigenic E PCR Not Detected (NotDetected) 02/14/24 16:47 Stool EPEC (PCR) Not Detected (NotDetected) 02/14/24 16:47 Stool EAEC (PCR) Not Detected (NotDetected) 02/14/24 16:47 Stl E. histolytica PCR Not Detected (NotDetected) 02/14/24 16:47 Stool Giardia Lamblia PCR Not Detected (NotDetected) 02/14/24 16:47 Stool Salmonella PCR Not Detected (NotDetected) 02/14/24 16:47 Stool Sapovirus (PCR) Not Detected (NotDetected) 02/14/24 16:47 Stl P. shigelloides PCR Not Detected (NotDetected) 02/14/24 16:47 Stl Shigella/EIEC PCR Not Detected (NotDetected) 02/14/24 16:47 St Y.enterocolitica PCR Not Detected (NotDetected) 02/14/24 16:47 Stool Vibrio (PCR) Not Detected (NotDetected) 02/14/24 16:47 Stl Vibrio cholerae PCR Not Detected (NotDetected) 02/14/24 16:47 Stl Norovirus GI/GII PCR Not Detected (NotDetected) 02/14/24 16:47 Blood Type O Positive 02/14/24 12:04 Antibody Screen NEGATIVE 02/14/24 12:04 Crossmatch See Detail 02/14/24 12:[address] 02/14/24 12:[address] DOSE: HISTORY: Trauma TECHNIQUE: Multiaxial CT images of the cervical spine were performed and reformatted in the sagittal and coronal plane without the use of contrast. A dose lowering technique was utilized adhering to the principles of ALARA. COMPARISON: Cervical spine CT 04/15/2023. FINDINGS: No fractures. No subluxation. Prevertebral soft tissues and the C1-C2 interval are intact. No pneumothorax. [id number] degenerative changes again noted. IMPRESSION: No fractures within the cervical spine. ACT 112: Negative or not required by law. Electronically signed by: Bulmaro aZvaleta M.D. 02/14/2024 1:[address] 02/14/24 12:[address] DOSE: HISTORY: Trauma, fall on eliquis TECHNIQUE: Multiaxial CT images of the head were performed without the use of intravenous contrast. Automated exposure control was utilized for this study. A dose lowering technique was utilized adhering to the principles of ALARA. Comparison: Head CT 04/15/2023. Findings: The paranasal sinuses and mastoid air cells are clear. The calvarium and skull base are intact. The ventricles and sulci are within normal limits. There is no mass, hematoma, midline shift, or acute infarct. Impression: No acute intracranial abnormality. ACT 112: Negative or not required by law. Electronically signed by: Bulmaro Zavaleta M.D. 02/14/2024 1:33 PM Abdomen/Pelvis CT 02/14/24 12:[address] WITH IV CONTRAST CT DOSE: 2561.38 mGy.cm HISTORY: ab pain, rectal/vaginal bleeding, fall on eliquis TECHNIQUE: Multiaxial CT images of the abdomen and pelvis were performed following the use of intravenous contrast. A dose lowering technique was utilized adhering to the principles of ALARA. COMPARISON STUDY: Abdomen and pelvis CT 12/27/2023. FINDINGS: A few punctate calcified granulomas and subsegmental atelectasis seen within the lung bases. No pneumoperitoneum. No pneumatosis. Bilateral sacroiliac bolts are noted. No acute fractures identified. Extensive bony fusion within the thoracolumbar spine with remnants of old postoperative change. Partial resection of a a few left lateral ribs. Mild circumferential the distal esophagus, unchanged. This favors a mild esophagitis. The liver, gallbladder, pancreas, spleen, and adrenal glands unremarkable. Subcentimeter bilateral renal hypodense lesions are technically too small to characterize but favor cysts. Left-sided nephrolithiasis again noted. No ureteral stones. No hydronephrosis. The main portal vein is patent. Calcified plaque within the normal caliber abdominal aorta. No retroperitoneal or pelvic lymphadenopathy. No pelvic free fluid. The bladder is unremarkable. There is a 2 cm pedunculated uterine fibroid, unchanged. Mild circumferential thickening within the sigmoid colon and rectum with minimal pericolonic fat stranding at the sigmoid colon. This is consistent with a mild nonspecific proctocolitis. Colonic diverticulosis. No evidence for acute diverticulitis. No dilated loops of bowel to suggest an obstruction. IMPRESSION: 1. No acute traumatic process within the abdomen or pelvis. 2. Mild circumferential thickening of the sigmoid colon and rectum with mild pericolonic fat stranding at the mid sigmoid colon. This consistent with a nonspecific proctocolitis. This favors an infectious or inflammatory process. 3. Left-sided nephrolithiasis. No hydronephrosis. 4. Colonic diverticulosis. No evidence for acute diverticulitis. 5. Additional findings as described above. ACT 112: Negative or not required by law. Electronically signed by: Bulmaro Zavaleta M.D. 02/14/2024 1:31 PM Shoulder X-Ray 02/14/24 13:59 XR shoulder RT min 2V routine CLINICAL HISTORY: fall, pain COMPARISON STUDY: Right shoulder 10/19/2023. FINDINGS: The bones are osteopenic. No acute fracture or dislocation within the right shoulder. The right clavicle is intact. Mild widening of the AC joint is likely chronic. Narrowing of the subacromial space consistent with chronic rotator cuff injury. IMPRESSION: No acute fracture or dislocation within the right shoulder. ACT 112: Negative or not required by law. Electronically signed by: Bulmaro Zavaleta M.D. 02/14/2024 2:39 PM Pelvis Ultrasound 02/14/24 15:18 Exam(s): US PELVIS EXAM: US Pelvis Transabdominal and Transvaginal, Complete CLINICAL HISTORY: R/o uterine bleed. TECHNIQUE: Real-time complete transabdominal and transvaginal pelvic ultrasound with image documentation. Transvaginal imaging was used for better evaluation of the endometrium and adnexa. COMPARISON: No relevant prior studies available. FINDINGS: Uterus/cervix: The uterus measures 5.7 x 3 x 3.9 cm. There is a partially pedunculated rounded heterogeneously echogenic mass extending from the anterior uterine fundus measuring 1.5 x 1.8 cm with internal vascular flow. The endometrial stripe measures only 1.7 mm. No increased vascular flow noted. No fluid in the endometrial canal. Right ovary: The right ovary measures 1.7 x 0.6 x 1.2 cm. Internal vascular flow noted. Normal blood flow. Left ovary: Left ovary measures 1.1 x 1.5 x 1 cm. Internal vascular flow. Normal blood flow. Free fluid: No free fluid. Bladder: Unremarkable as visualized. Wall is normal thickness for degree of distention. IMPRESSION: 1. The endometrial stripe measures only 1.7 mm. No increased vascular flow noted. No fluid in the endometrial canal. 2. Pedunculated fibroid extending from the anterior fundus measuring 1.5 x 1.8 cm. 3. The ovaries are unremarkable without evidence for torsion. Electronically signed by: Kuldip Arevalo MD 02/14/24 21:44 PM Abdomen/Pelvis CTA 02/17/24 14:28 CT angio abd pelvis wo/w con HISTORY: 74 years-old Female rectal bleeding Acute lower abdominal pain with rectal bleeding and nausea. COMPARISON: CT abdomen and pelvis 02/14/2024. TECHNIQUE: CTA abdomen and pelvis was obtained with and without IV contrast. All measurements were obtained according to NASCET criteria. 3-D coronal and sagittal MIPS were obtained and submitted for review. A dose lowering technique was used consistent with the principals of KAYLEN. FINDINGS: CTA: Cardiomegaly. Atherosclerosis of the aorta without abdominal aortic aneurysm or dissection. There is patency of the celiac trunk, superior and inferior mesenteric arteries with moderate stenosis at the origin of the inferior mesenteric artery. CT ABDOMEN/PELVIS: A few punctate calcified granulomas and subsegmental atelectasis seen within the lung bases. Trace pleural effusions with mild left basilar atelectasis versus scarring. No pneumoperitoneum. No pneumatosis. Bilateral sacroiliac bolts are noted. No acute fractures identified. Extensive bony fusion within the thoracolumbar spine with remnants of old postoperative change. Partial resection of a a few left lateral ribs. Mild circumferential the distal esophagus, unchanged. This favors a mild esophagitis. The liver, gallbladder, pancreas, and adrenal glands unremarkable. Enhancing 8 mm splenic lesion is indeterminate. Subcentimeter bilateral renal hypodense lesions are technically too small to characterize but favor cysts. Left-sided nephrolithiasis again noted. Punctate right nephrolithiasis. No ureteral stones. No hydronephrosis. No retroperitoneal or pelvic lymphadenopathy. No pelvic free fluid. Partially decompressed urinary bladder with wall thickening and punctate intraluminal air. There is a 2 cm pedunculated uterine fibroid, unchanged. There is improvement of the previously described circumferential thickening within the sigmoid colon and rectum with minimal pericolonic fat stranding at the sigmoid colon. This is consistent with a mild nonspecific proctocolitis. Scattered large and small bowel air-fluid levels. Colonic diverticulosis. No evidence for acute diverticulitis. No dilated loops of bowel to suggest an obstruction. IMPRESSION: 1. Atherosclerosis without aneurysm, dissection or arterial occlusion identified. 2. Improvement of the previously described nonspecific proctocolitis. 3. No bowel obstruction or pneumoperitoneum. 4. Left nephrolithiasis. 5. Foci of air within the urinary bladder may be secondary to instrumentation versus infection. 6. Additional findings as above. ACT 112: Negative or not required by law. The above report was generated using voice recognition software. It may contain grammatical, syntax or spelling errors. Dictated: 02/17/2024 5:53 PM Transcribed: 02/17/2024 6:14 PM Tarun [id number] [email or web address] Electronically signed by: Andrea López M.D. 02/17/2024 6:17 PM Pending Results Patient Have Any Pending Studies at Discharge: No Discharge Instructions Given to Patient (Per Discharging Provider) PLEASE REFER TO YOUR NEW MEDICATION LIST AND FOLLOW INSTRUCTIONS CAREFULLY. YOUR NEW MEDICATIONS INCLUDE: Ciprofloxacin, Flagyl-antibiotics for colitis If still without rectal bleeding, you may resume your aspirin tomorrow. Wait until further advised by your primary care physician on your follow-up visit before restarting Eliquis. Maintain soft low fiber diet for now. PLEASE CALL YOUR PRIMARY CARE PHYSICIAN OR RETURN TO THE ER IF WITH WORSENING OF SYMPTOMS, INCLUDING Abdominal pain, rectal bleeding, dizziness, chest pain, shortness of breath, etc. FOLLOW UP WITH PRIMARY CARE PHYSICIAN OUTLINED ABOVE. Total Time Total Time Spent Total Time Spent (In Minutes): 40 minutes
== END 2024-02-19 13:42 | disposition home or self-care (01) | DRG 394 ==
LOC: ED 11:51 → SUATTDRO 14:47 → 2W 14:47
DX: K59.00 Constipation, unspecified; Z86.718 Personal history of other venous thrombosis and embolism; Z79.85 Long-term (current) use of injectable non-insulin antidiabetic drugs; Z79.4 Long term (current) use of insulin; G89.29 Other chronic pain; Z79.899 Other long term (current) drug therapy; G47.33 Obstructive sleep apnea (adult) (pediatric); I25.10 Atherosclerotic heart disease of native coronary artery without angina pectoris; F31.81 Bipolar II disorder; I11.0 Hypertensive heart disease with heart failure; E78.5 Hyperlipidemia, unspecified; K55.9 Vascular disorder of intestine, unspecified; D62 Acute posthemorrhagic anemia; E03.9 Hypothyroidism, unspecified; Z79.01 Long term (current) use of anticoagulants; I50.32 Chronic diastolic (congestive) heart failure; E11.9 Type 2 diabetes mellitus without complications; Z86.711 Personal history of pulmonary embolism; Z79.82 Long term (current) use of aspirin; Z79.890 Hormone replacement therapy

== ENCOUNTER 2024-09-08 09:29 | Inpatient (IN) ==
--- NOTE | 2024-08-12 15:57 | PAT Medication Instructions ---
Medication Instructions Date of Service August 12, 2024 Home Medications Medication Instructions Recorded ondansetron 4 mg disintegrating 4 mg PO Q6H PRN nausea and 10/26/23 tablet vomiting #10 tabs pantoprazole 40 mg tablet,delayed 40 mg PO BID #60 tabs 12/21/23 release aspirin 81 mg tablet,delayed 81 mg PO QAM #0 tabs 02/19/24 release plecanatide 3 mg tablet (Trulance) 3 mg PO QAM #90 tabs 03/03/24 tramadol 50 mg tablet 50 - 100 mg (1 - 2 x 50 mg) PO Q6 07/14/24 PRN pain #40 tabs oxycodone 5 mg tablet 5 - 10 mg (1 - 2 x 5 mg) PO Q4H 08/05/24 PRN pain #30 tabs atorvastatin 40 mg tablet (Lipitor) 40 mg PO QAM levothyroxine 75 mcg tablet 75 mcg PO QAM promethazine 25 mg tablet 25 mg PO Q6H PRN epinephrine 0.3 mg/0.3 mL injection syringe 0.3 mg IM Q3H PRN nitroglycerin 0.3 mg sublingual tablet (Nitrostat) 0.3 mg sublingual UD PRN olopatadine 0.2 % eye drops 1 drp ophthalmic (eye) QAM tizanidine 4 mg tablet 4 mg PO BID PRN trazodone 100 mg tablet 300 mg PO HS furosemide 20 mg tablet 40 mg PO QAM apixaban 5 mg tablet (Eliquis) 5 mg PO BID metoprolol succinate 100 mg tablet,extended release 24 hr 100 mg PO QAM semaglutide 2 mg/dose (8 mg/3 mL) subcutaneous pen injector (Ozempic) 2 mg subcut Q7D buspirone 10 mg tablet 10 mg PO BID ondansetron 4 mg disintegrating tablet 4 mg PO Q6H PRN pantoprazole 40 mg tablet,delayed release 40 mg PO BID aspirin 81 mg tablet,delayed release 81 mg PO QAM plecanatide 3 mg tablet (Trulance) 3 mg PO QAM tramadol 50 mg tablet 50 - 100 mg (1 - 2 x 50 mg) PO Q6 PRN oxycodone 5 mg tablet 5 - 10 mg (1 - 2 x 5 mg) PO Q4H PRN STOP 7 days before surgery semaglutide 2 mg/dose (8 mg/3 mL) subcutaneous pen injector (Ozempic) 2 mg subcut Q7D Continue as directed promethazine 25 mg tablet 25 mg PO Q6H PRN(if needed) epinephrine 0.3 mg/0.3 mL injection syringe 0.3 mg IM Q3H PRN(if needed) nitroglycerin 0.3 mg sublingual tablet (Nitrostat) 0.3 mg sublingual UD PRN(if needed) tramadol 50 mg tablet 50 - 100 mg (1 - 2 x 50 mg) PO Q6 PRN(if needed) oxycodone 5 mg tablet 5 - 10 mg (1 - 2 x 5 mg) PO Q4H PRN(if needed) ASK your prescriber and surgeon apixaban 5 mg tablet (Eliquis) 5 mg PO BID aspirin 81 mg tablet,delayed release 81 mg PO QAM DO NOT take the morning of surgery furosemide 20 mg tablet 40 mg PO QAM plecanatide 3 mg tablet (Trulance) 3 mg PO QAM Take morning of surgery With a small sip of water, OTHERWISE NOTHING TO EAT OR DRINK AFTER MIDNIGHT: atorvastatin 40 mg tablet (Lipitor) 40 mg PO QAM levothyroxine 75 mcg tablet 75 mcg PO QAM olopatadine 0.2 % eye drops 1 drp ophthalmic (eye) QAM tizanidine 4 mg tablet 4 mg PO BID PRN(if needed) ondansetron 4 mg disintegrating tablet 4 mg PO Q6H PRN(if needed) metoprolol succinate 100 mg tablet,extended release 24 hr 100 mg PO QAM buspirone 10 mg tablet 10 mg PO BID pantoprazole 40 mg tablet,delayed release 40 mg PO BID Take evening before surgery tizanidine 4 mg tablet 4 mg PO BID PRN(if needed) ondansetron 4 mg disintegrating tablet 4 mg PO Q6H PRN(if needed) trazodone 100 mg tablet 300 mg PO HS buspirone 10 mg tablet 10 mg PO BID pantoprazole 40 mg tablet,delayed release 40 mg PO BID Other Notes If you have any questions please call us at [phone] or [phone] or [phone] or [phone]
--- NOTE | 2024-08-22 12:40 | Anesthesiology Consultation ---
Date of Service August 22, 2024 Assessment & Plan (1) Encounter for pre-operative examination: Plan - check BSG am DOS. - positive antibody screen: [place] with blood bank advised no further testing is needed. - cardiology office visit 06/22/24 [facility]: "...preoperative cardiology consultation prior to unscheduled elective right reverse shoulder arthroplasty...Feeling OK. Able to ambulate one flight of stair without cardiopulmonary difficulty. No further chest pain...Lexiscan nuclear stress testing recommended prior to elective right shoulder surgery. If Lexiscan nuclear stress testing is OK, patient would be considered an acceptable candidate for elective right shoulder replacement...Refer for Cardiac MRI, RE: isolated basal septal hypertrophy..." Subsequent stress test without ischemia. Case discussed in detail with Dr. Kincaid who advised patient is acceptable to proceed. - semaglutide instructions: Patient informed at PAT visit to stop 7 days prior to surgery-voiced understanding. Patient advised to check with prescriber to see if alternative diabetic management changes recommended while holding semaglutide- if so, patient to call back to PAT to update chart and discuss if any further preop medication instructions needed. - Outpatient joint assessment: Patient is currently scheduled for inpatient pathway. If re-evaluated and patient/surgeon requests outpatient pathway, patient is not a candidate for outpatient joint program from anesthesia standpoint. Chart Review Chart Review: Acceptable Risk for Surgery and Patient seen in Pre Admission Test ing Teaching & Discussion Pre-Anesthesia Teaching/Discussion Notes: Instructed NPO after midnight before surgery, except medications with 15 cc of water. Medication instructions provided according to the PAT guidelines. History Surgery Operation Date: 09/08/24 09:25 Proposed Procedures p Right Reverse Total Shoulder Arthroplasty, Possible Open Biceps Tenodesis - Michael Rosado MD Height/Weight Height: 5 ft 4 in Weight: 79.4 kg Allergies Allergy/AdvReac Type Severity Reaction Status Date / Time adhesive tape Allergy Intermediate Skin Verified 08/22/24 10:35 irritation latex Allergy Intermediate Rash Verified 08/22/24 10:35 aspirin AdvReac Intermediate Bleeding Verified 08/22/24 10:35 ulcers (full dose ASA) NSAIDS (Non-Steroidal AdvReac Intermediate Hx Verified 08/22/24 10:35 Anti-Inflamma bleeding ulcers (advised to avoid) Medications Home Medications Medication Instructions Recorded Confirmed Last Taken atorvastatin 40 mg tablet (Lipitor) 40 mg PO QAM 12/13/18 08/22/24 04/17/24 07:00 levothyroxine 75 mcg tablet 75 mcg PO QAM 12/13/18 08/22/24 04/18/24 06:30 promethazine 25 mg tablet 25 mg PO Q6H PRN Nausea 05/12/19 08/22/24 11/13/23 epinephrine 0.3 mg/0.3 mL 0.3 mg IM Q3H PRN Allergic Reaction 05/23/19 08/22/24 Unknown injection syringe nitroglycerin 0.3 mg sublingual 0.3 mg sublingual UD PRN Chest Pain 05/23/19 08/22/24 Unknown tablet (Nitrostat) olopatadine 0.2 % eye drops 1 drp ophthalmic (eye) QAM 05/23/19 08/22/24 04/17/24 07:00 tizanidine 4 mg tablet 4 mg PO BID PRN Muscle Spasm 04/03/20 08/22/24 04/17/24 20:00 trazodone 100 mg tablet 300 mg PO HS 04/03/20 08/22/24 04/17/24 20:00 furosemide 20 mg tablet 40 mg PO QAM 10/05/20 08/22/24 04/17/24 07:00 apixaban 5 mg tablet (Eliquis) 5 mg PO BID 10/11/21 08/22/24 04/15/24 07:00 metoprolol succinate 100 mg 100 mg PO QAM 01/20/23 08/22/24 04/18/24 07:00 tablet,extended release 24 hr semaglutide 2 mg/dose (8 mg/3 mL) 2 mg subcut Q7D 01/20/23 08/22/24 04/07/24 subcutaneous pen injector (Ozempic) buspirone 10 mg tablet 10 mg PO BID 02/20/23 08/22/24 04/18/24 07:00 ondansetron 4 mg disintegrating 4 mg PO Q6H PRN nausea and 10/26/23 08/22/24 11/15/23 tablet vomiting #10 tabs pantoprazole 40 mg tablet,delayed 40 mg PO BID #60 tabs 12/21/23 08/22/24 04/18/24 07:00 release aspirin 81 mg tablet,delayed 81 mg PO QAM #0 tabs 02/19/24 08/22/24 04/17/24 07:00 release plecanatide 3 mg tablet (Trulance) 3 mg PO QAM #90 tabs 03/03/24 08/22/24 04/17/24 07:00 tramadol 50 mg tablet 50 - 100 mg (1 - 2 x 50 mg) PO Q6 07/14/24 08/22/24 Unknown PRN pain #40 tabs oxycodone 5 mg tablet 5 - 10 mg (1 - 2 x 5 mg) PO Q4H 08/22/24 08/22/24 Unknown PRN pain #20 tabs Past Medical History Medical History Anxiety Barretts esophagus on protonix; follows with GI CAD (coronary artery disease) BMS x2 to LAD Cervical spondylosis Chronic heart failure with preserved ejection fraction (HFpEF) Follows with [facility] cardio Chronic pain syndrome Back Cyclic vomiting syndrome hx, no issues in "years" Depression Diabetes NIDDM Dilation of thoracic aorta Echo 01/2024: Aortic root and proximal ascending aorta are normal sized Dyslipidemia History of anemia History of blood transfusion History of colitis History of COVID-19 (~10/2021) treated inpatient at [facility]/Covid PNA > symptoms resolved History of nickel allergy recent allergy testing showed she is not allergic to nickel HTN (hypertension) h/o orthostatic hypotension in 2022; controlled, stable per pt Hx of Clostridium difficile infection (~2016) Remote hx Hx of deep venous thrombosis (~2017) DVT > PE Hx of myocardial infarction (~2016) NSTEMI > BMS x2 to LAD Hx of post-polio syndrome Hx pulmonary embolism (~2017) DVT > PE Hyperlipidemia Hypothyroidism Migraine Hx, no recent issues HOLLY (obstructive sleep apnea) pt denies Osteoarthritis Port-A-Cath in place left chest wall, replacement 04/18/24, power port PTSD (post-traumatic stress disorder) RLS (restless legs syndrome) Scoliosis Patient denies h/o stroke or seizures. Exercise / Class Metabolic Activity II 4-5 Yardwork/Stairs/Walk up hill (denies chest discomfort or shortness of breath with one flight of stairs) Past Family History Family History Mother Hypertension Father Hypertension Other No family history of adverse response to anesthesia Past Surgical History Surgical History History of anesthesia reaction Awareness with spinal surgery History of back surgery bilateral SI Joint replacements (~2020/[facility] [place]) History of cataract surgery R/L History of colonoscopy History of esophagogastroduodenoscopy (EGD) History of tonsillectomy and adenoidectomy Hx of appendectomy Hx of arthroscopy of shoulder Right shoulder, 01/2023, 06/2023, 10/23/23 ([facility]) Right shoulder arthroscopy, I&D of subacromial hematoma Hx of cardiac cath BMS x2 Hx of dilation and curettage (06/2024) [facility]-- recent rectal and vaginal bleeding due to polyps Hx of heart artery stent BMS x2 Hx of knee surgery right-open meniscus repair Hx of laminectomy and fusion "entire spine is fused(except cervical spine)" [facility] [place] (Dr Catherine) Hx of ovarian cystectomy x2 Hx of spinal surgery Multiple back surgeries S/P hardware removal Removal of all back hardware (~2002) [facility] [place] S/P panniculectomy Past Anesthesia History No Family Hx of Anesthesia Complications and Other (see above) History of PONV History of PONV (denies needing scop patch) and Hx of Motion Sickness Social History Smoking Status: Never smoker Do You Dip or Chew Tobacco: No Hx Alcohol Use: No Hx Substance Use: No substance use type: does not use Review of Systems Patient denies chest pain, shortness of breath, dyspnea on exertion, fever, chills, cough, wheezing, dizziness, presyncope, or palpitations. Physical Exam Vital Signs Vitals BP 102/70 P 93 TEMP 98.6 SP02 94% on RA RESP 18 Physical Patient resting comfortably in chair in no acute distress, alert and oriented, responding appropriately throughout visit Full cervical extension range of motion without pain TMD 3.5 finger breadths Mallampati Score 2 Dentition: two partial, denies chipped or loose teeth, caps/crowns, implants or bridges Lungs: normal respiratory effort. Good air movement, clear throughout to auscultation, no adventitious breath sounds Cardiac: regular rate and rhythm, no murmurs noted Carotid arteries: negative bruit bilat Lab Results Anesthesia Preop Results Results Anesthesia Widget: WBC 10.70 K/ul (4.8-10.8) 08/22/24 Hgb 13.0 g/dl (12.0-16.0) 08/22/24 Hct 37.4 % (37.0-47.0) 08/22/24 Plt 299 K/uL (130-400) 08/22/24 Na 140 mmol/L (136-145) 08/22/24 K 3.6 mmol/L (3.5-5.1) 08/22/24 Cl 104 mmol/L (98-107) 08/22/24 CO2 29 mmol/L (21-32) 08/22/24 BUN 16 mg/dl (6-23) 08/22/24 Creat 0.69 mg/dl (0.6-1.2) 08/22/24 Glucose Level 87 mg/dl (70-99(Fasting)) 08/22/24 PT 11.1 Seconds (9.0-12.0) 08/22/24 PTT 28 Seconds (21-31) 08/22/24 INR 1.0 (0.9-1.1) 08/22/24 HA1c 5.8 % (4.5-5.6) H 08/22/24 Blood Type O Positive 08/22/24 Antibody Screen POSITIVE A 08/22/24 Testing Electrocardiogram Date: 06/22/24 NSR, rate 81 bpm Left axis deviation Inferior infarct, cited on or before 05/08/2004 Chest X-Ray Date: 04/18/24 Satisfactory position of the exchanged port catheter. Echocardiogram Date: 02/15/24 EF 60-65% Normal LV wall motion Mild cLVH Grade I diastolic dysfunction No significant valvular pathology Stress Test Date: 06/28/24 MPHR 79% Negative without evidence of inducible ischemia or myocardial scar EF 70% Cervical Spine Date: 02/14/24 No fractures within the cervical spine. Other Testing Chest CTA 04/05/24 1. There is no evidence of pulmonary embolus in the main, lobar, or segmental pulmonary arteries. 2. Cardiomegaly and emphysema with postsurgical change as above. 3. There is no airspace consolidation typical for pneumonia or pleural effusion. 4. Additional findings as above. Abdomen pelvis CTA 02/17/24 1. Atherosclerosis without aneurysm, dissection or arterial occlusion identified. 2. Improvement of the previously described nonspecific proctocolitis. 3. No bowel obstruction or pneumoperitoneum. 4. Left nephrolithiasis. 5. Foci of air within the urinary bladder may be secondary to instrumentation versus infection. 6. Additional findings as above. Head and neck CTA 02/15/21 Mild atherosclerotic plaque within the proximal right internal carotid artery. N o stenosis or dissection within the major vessels of the neck. No significant stenosis, occlusion, or aneurysm within the [place] of [place].
[~2024-09-08 09:29] MED LIST changes: -LR 15ML/HR IV SCH; -TRANEXAMIC ACID 1,000 MG **IV Pre-op IV SCH
[2024-09-08] MEDS: LR 60ML/HR IV SCH (11:02)
[2024-09-08] MEDS: LR 15ML/HR IV SCH (11:02)
[2024-09-08] MEDS: ACETAMINOPHEN 500 MG TAB PO SCH ×2 (11:02→20:45)
[2024-09-08] MEDS ORDERED: MIDAZOLAM HCL 1 MG/ML 2ML VIAL ONE ×2 (11:40→13:54)
[2024-09-08] MEDS ORDERED: fentaNYL citrate PF 100 MCG/2 ML VIAL ONE (11:40)
[2024-09-08] MEDS ORDERED: PROMETHAZINE HCL 6.25 MG in SODIUM CHLORIDE 0.9% 50 ML IV PRN (12:19)
[2024-09-08] MEDS ORDERED: ONDANSETRON INJ 2 MG/ML 2 ML VIAL IV PRN (12:19)
[2024-09-08] MEDS ORDERED: ATROPINE SULFATE 0.1 MG/ML 10ML SYR IV PRN (12:19)
[2024-09-08] MEDS ORDERED: ePHEDrine sulfate 50 MG/ML AMP IV PRN (12:19)
[2024-09-08] MEDS ORDERED: LIDOCAINE 2% 2 ML VIAL/AMP(20MG/ML) INFIL ONE (12:39)
[2024-09-08] MEDS ORDERED: PROPOFOL IV EMULSION 10 MG/ML 20 ML VIAL IV ONE (12:40)
[2024-09-08] MEDS ORDERED: ROCURONIUM BROMIDE 10 MG/ML 5 ML VIAL IV ONE ×2 (12:41→14:16)
--- NOTE | 2024-09-08 13:07 | History & Physical Bridge Note ---
Date of Service September 08, 2024 History & Physical Bridge Note I have examined the patient, reviewed the History & Physical and in the interval since the performance of the History & Physical I have noted the following changes of clinical significance: no changes noted. She has held Eliquis for the past 48 hours, as instructed. Will restart tomorrow. Proceed as planned.
[2024-09-08] MEDS: ceFAZolin 2000MG 2,000 MG/15 ML SYR IV SCH (13:54)
[2024-09-08] MEDS ORDERED: PHENYLEPHRINE 100MCG/ML 5ML SYR ONE (14:24)
[2024-09-08] MEDS ORDERED: ONDANSETRON INJ 2 MG/ML 2 ML VIAL ONE (14:24)
[2024-09-08] MEDS ORDERED: DEXAMETHASONE SOD INJ 4 MG/ML VIAL ONE (14:24)
[2024-09-08] MEDS ORDERED: PHENYLEPHRINE HCL 10 MG/ML VIAL ONE (14:59)
[2024-09-08] MEDS: TRANEXAMIC ACID / 0.7% NACL 1000MG/100ML BAG IV ONE (16:33)
[2024-09-08] MEDS: VANCOMYCIN HCL 1000MG/20ML VIAL ONE (16:35)
[2024-09-08] MEDS ORDERED: NEOSTIGMINE METHYLSULFATE 1 MG/ML 10ML VIAL ONE ×2 (16:42→16:44)
[2024-09-08] MEDS ORDERED: GLYCOPYRROLATE 0.2 MG/ML VIAL ONE ×2 (16:42)
[2024-09-08] MEDS ORDERED: diphenhydrAMINE Capsule 25 MG CAP PO PRN (17:07)
[2024-09-08] MEDS ORDERED: PHARMACY GLYCEMIC MGMT CONSULT PRN (17:07)
[2024-09-08] MEDS ORDERED: NALOXONE HCL 0.4 MG/1 ML VIAL/CARP IV PRN (17:07)
[2024-09-08] MEDS ORDERED: bisacodyL 10 MG SUPP PR PRN (17:07)
[2024-09-08] MEDS ORDERED: METOCLOPRAMIDE HCL INJ 5 MG/ML 2 ML VIAL IV PRN (17:07)
[2024-09-08] MEDS ORDERED: MAGNESIUM HYDROXIDE SUSP 30 ML UDC PO PRN (17:07)
[2024-09-08] MEDS ORDERED: NITROGLYCERIN SL 0.4 MG/TAB TAB SL PRN (17:10)
[2024-09-08] MEDS ORDERED: ONDANSETRON 4 MG OD TAB PO PRN (17:10)
[2024-09-08] MEDS ORDERED: tiZANidine HCL 4 MG TABLET PO PRN (17:10)
[2024-09-08] MEDS ORDERED: EPINEPHrine INJ 1 MG/ML AMP IM PRN (17:10)
[2024-09-08] MEDS ORDERED: PROMETHAZINE HCL 25 MG TAB PO PRN (17:10)
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
[2024-09-08] MEDS: fentaNYL citrate PF 100 MCG/2 ML VIAL IV PRN (17:22)
--- NOTE | 2024-09-08 18:01 | Anesthesiology Progress Note ---
Date of Service September 08, 2024 Anesthesia Post Procedure Vital Signs Vital Signs: Temp Pulse Pulse Resp BP Pulse Ox O2 Del Method 09/08/24 17:50 78 16 158/94 H 92 Nasal Cannula 09/08/24 17:40 80 17 153/98 H 91 Nasal Cannula 09/08/24 17:35 80 17 153/98 H 97 Nasal Cannula 09/08/24 17:25 75 17 166/101 H 99 Oxymask 09/08/24 17:15 77 17 159/98 H 99 Oxymask 09/08/24 17:06 36.2 C L 86 19 156/95 H 95 Oxymask 09/08/24 11:16 36.7 C 78 20 119/79 95 Room Air O2 Flow Rate 09/08/24 17:50 3 09/08/24 17:40 2 09/08/24 17:35 2 09/08/24 17:25 5 09/08/24 17:15 5 09/08/24 17:06 5 09/08/24 11:16 Transfer of Care Handoff Completed per policy Notes Mental Status: alert / awake / arousable and participated in evaluation Patient Amnestic to Procedure: Yes Nausea / Vomiting: adequately controlled Pain: adequately controlled Airway Patency, RR, SpO2: stable & adequate BP & HR: stable & adequate Hydration State: stable & adequate Anesthetic Complications: no major complications apparent and Pt Satisfied with anesthetic care
[2024-09-08] MEDS: HYDROmorphone INJ 2 MG/ML SYR/VIAL IV PRN (18:05)
--- NOTE | 2024-09-08 18:06 | XRay Report ---
EXAM: Radiographs of the Right Shoulder Complete 2 Views INDICATION: Postoperative arthroplasty assessment. TECHNIQUE: 2 views of the right shoulder. COMPARISON: No relevant prior studies available. FINDINGS: Bones/joints: Satisfactory appearance of reverse shoulder arthroplasty component which is well-seated and intact. No fracture or dislocation. Visualized right ribs intact. Soft tissues: Expected postoperative gas and swelling about the shoulder. Lungs and pleural spaces: There is mild atelectasis in the right lung base. No pleural effusion or pneumothorax. Tubes, lines and devices: Tip of the central venous port noted in the right atrium. IMPRESSION: Satisfactory appearance of reverse right shoulder arthroplasty. ACT 112: Negative or not required by law. Electronically signed by Azalea Merino 09-08-2024 6:06 PM
[2024-09-08] MEDS ORDERED: GLUCOSE 40% GEL 15 GM TUBE PO PRN (19:00)
[2024-09-08] MEDS ORDERED: DEXTROSE 50% 50 ML SYRINGE IV PRN (19:00)
[2024-09-08] MEDS ORDERED: CARBOHYDRATES FOR HYPOGLYCEMIA PO PRN (19:00)
[2024-09-08] MEDS ORDERED: GLUCOSE 10 TAB/TUBE PO PRN (19:00)
[2024-09-08] MEDS ORDERED: GLUCAGON FOR INJ 1 MG VIAL SQ PRN (19:00)
[2024-09-08] MEDS: FAMOTIDINE/PF 20 MG/2 ML VIAL IV ONE (19:03)
[2024-09-08] MEDS: INSULIN ASPART PER UNIT CHARGE SC SCH (19:14)
[2024-09-08] MEDS: KETOROLAC TROMETHAMINE 15 MG/ML VIAL IV SCH (19:27)
[2024-09-08] MEDS: busPIRone 5 MG TAB PO SCH (20:44)
[2024-09-08] MEDS: SENNA 8.6 MG TAB PO SCH (20:44)
[2024-09-08] MEDS: PANTOprazole 40 MG TAB PO SCH (20:44)
[2024-09-08] MEDS: DOCUSATE SODIUM 100 MG CAP PO SCH (20:44)
[2024-09-08] MEDS: traZODone HCL 100 MG TAB PO SCH (20:45)
[2024-09-09] MEDS: oxyCODONE HCL IR 5 MG TAB (IMMEDIATE RELEASE) PO PRN (00:03)
[2024-09-09] MEDS: ceFAZolin 2000MG 2,000 MG/15 ML SYR IV SCH (00:03)
[2024-09-09] MEDS: OLOPATADINE~ORDER AWAITING ACTION SCH (00:09)
[2024-09-09] MEDS: HYDROmorphone INJ 0.5 MG/0.5 ML SYR IV PRN (01:35)
[2024-09-09] MEDS: LEVOTHYROXINE SODIUM 75 MCG TABLET PO SCH (05:48)
[2024-09-09 06:00] LABS: Basophils # (auto) 0.03 K/uL (0.00-0.20); Basophils % (auto) 0.2 %; Eosinophils # (auto) 0.01 K/uL (0.00-0.50); Eosinophils % (auto) 0.1 %; Hematocrit (blood only) 31.3 % (37.0-47.0); Hemoglobin 10.7 g/dl (12.0-16.0); Immature Granulocytes # (auto) 0.04 K/uL (0.01-0.20); Immature Granulocytes % (auto) 0.3 %; Lymphocytes # (auto) 1.85 K/uL (1.20-3.40); Lymphocytes % (auto) 14.6 %; Mean Corpuscular Hemoglobin 30.1 pg (25.0-34.0); Mean Corpuscular Hgb Conc 34.2 g/dL (32.0-36.0); Mean Corpuscular Volume 87.9 fL (80.0-100.0); Mean Platelet Volume 9.5 fL (9.4-12.4); Monocytes # (auto) 1.26 K/uL (0.11-0.59); Neutrophils # (auto) 9.47 K/uL (1.40-6.50); Neutrophils % (auto) 74.8 %; Platelet Count 242 K/uL (130-400); RDW Coefficient of Variation 14.2 % (11.5-14.5); RDW Standard Deviation 45.9 fL (36.4-46.3); Red Blood Count 3.56 M/uL (4.20-5.40); White Blood Count 12.66 K/ul (4.8-10.8)
[2024-09-09 06:14] LABS: BUN Creatinine Ratio 18.1 (10-20); Calcium 8.3 mg/dl (8.6-10.3); Creatinine Clr Calc Pharmacy 67.7 ml/min; Potassium 4.1 mmol/L (3.5-5.1)
--- NOTE | 2024-09-09 07:45 | Orthopedic Progress Note ---
Date of Service September 09, 2024 Assessment & Plan (1) Status post reverse total arthroplasty of right shoulder: Postop day 1 from a right reverse total shoulder arthroplasty -Work with PT/OT for mobilization/ambulation. Remain nonweightbearing right upper extremity. -Continue the use of the sling -Pain as per the protocol -Dressing can be taken off on postop day 2. This can be done by nursing staff. It should then be covered until she is discharged from the hospital. -Discharge disposition as per PT/OT/case management. Subjective Operation Date: 09/08/24 11:40 Actual Procedures p Right Reverse Total Shoulder Arthroplasty, Uncemented(Right) - Michael Rosado MD Ester is a 74-year-old female who is postop day 1 from a right reverse total shoulder arthroplasty. She states she is doing okay. States that she did have a large amount of pain throughout the night that she needed pain medication for. She states that she still is unable to move her arm due to the block, however she is able to feel light touch and some sensation in her hands., No questions today. Review of Systems All systems reviewed & are unremarkable except as noted in HPI & below. Physical Exam General: Alert and oriented. No acute distress. Right shoulder: Sling is in place. Dressing without saturation. Distal pulses palpated. Results & Data Results & Data Laboratory Results . Diagnostic Findings . PG Care Time/CCT Total # of Minutes Spent Total Time Spent with Patient: Total time spent is greater than 50% in coordination of care (as documented) at patient's floor/unit and/or counseling patient: Coding Level of Care Code 47663 Post Operative Follow-Up Diagnoses Status post reverse total arthroplasty of right shoulder Z96.611
--- OUTSIDE RECORDS SUMMARY | 2024-09-09 08:38 | External Medical Summary | Summary of Care ---
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 Name Role Phone Svetlana Jacobs DO Primary Care Provider [phone] Reason for Visit * Reason Comments pre-op exam Encounter Details Date Type Department Care Team (Late st Contact Info) Description 09/05/2024 8:40 AM EST Office Visit Family Practice [address] [place] [id number] Svetlana Jacobs DO [address] [place] [address] Pre-operative clearance*; Chronic right shoulder pain; Type 2 diabetes mellitus with diabetic polyneuropathy, without long-term current use of insulin ([facility]); Type 2 diabetes mellitus with hemoglobin A1c goal of less than 7.0% ([facility]); Essential hypertension with goal blood pressure less than 140/90 Allergies Active Allergy Reactions Criticality Noted Date Comments Adhesive Tape Other (Please comment) Low 07/19/2019 Skin irritation Ibuprofen Bleeding High 09/03/2016 (NSAIDS) Other reaction(s): Bleeding Latex Rash High 01/25/2019 Other reaction(s): Rash Nickel High 12/16/2011 Rash/blisters if intermediate exposure Other reaction(s): SEVERE DERMATITIS Other reaction(s): CD - Contact dermatitis Nsaids High 07/25/2015 Other reaction(s): HX OF BLEEDING ULCERS-TO AVOID Oxycodone Neuro complications (Please comment) High 02/19/2021 Opioid abuse Other reaction(s): neuro complications opioid abuse-recent overdose 01/2021 documented as of this encounter (statuses as of 09/07/2024) Medications Triamcinolone Acetonide 0.1 % External Cream (Aristocort)Indica tions:Lichenoid dermatitis,Rash and nonspecific skin eruption Apply topically to affected area 2 times a day . To affected area. 60 g 5 04/10/20 22 Active Ketoconazole 2 % External Cream Apply topically to affected area 2 times a day . Apply to under breasts 60 g 5 04/25/20 22 Active Aspirin EC 81 MG Oral Tablet Delayed Release Take 1 Tablet by mouth in the morning. 10/21/19 23 Active Centrum Silver 50+Women Oral Tablet Take 1 Tablet by mouth in the morning. 04/02/20 23 Active Olopatadine HCl 0.2 % Ophthalmic SolutionIndication s:Allergic conjunctivitis of both eyes INSTILL 1 DROP INTO BOTH EYES DAILY. 7.5 mL 1 04/02/20 23 Active Advanced Probiotic Oral Capsule Take 2 Capsules by mouth in the morning. 04/18/20 23 Active Roller WalkerIndications: History of TIA (transient ischemic attack),Chronic diastolic congestive heart failure (HCC),Postlaminect torey syndrome, thoracic region,Postlaminec marino syndrome, lumbar region,Morbid obesity, unspecified obesity type (HCC) Rolling walker with seat and brakes. Would like walker with bigger wheels Would like cornflower blue or green in color 1 Each 06/11/20 23 Active Myrbetriq 25 MG Oral Tablet Extended Release 24 Hour (Mirabegron ER) Take 1 Tablet by mouth in the morning. 30 Tablet 6 09/01/20 23 Active Loperamide HCl 2 MG Oral Capsule (Imodium) Take 1 Capsule by mouth 4 times a day as needed for Diarrhea. Active Levothyroxine Sodium 75 MCG Oral Tablet (Levoxyl)Indicatio ns:Hypothyroidism, unspecified type TAKE 1 TABLET BY MOUTH DAILY 30 MINUTES BEFORE BREAKFAST OR MEDS 90 Tablet 3 08/23/2024 12:21 PM EST 12/01/19 24 Active EpiPen 2-Lee 0.3 MG/0.3ML Injection Solution Auto-injector INJECT INTO OUTER THIGH FOLLOWING DIRECTIONS ON PACKAGE AND TO GO EMERGENCY ROOM 2 Each 1 12/16/2023 3:02 PM EST 12/15/19 24 Active Additional Information Patient not taking.Reported on 09/05/2024 Nitroglycerin 0.3 MG Sublingual Tablet Sublingual (Nitrostat)Indicat ions:Coronary artery disease involving ute mountain coronary artery of ute mountain heart without angina pectoris,Dyslipide vivienne, goal LDL below 100,Essential hypertension with goal blood pressure less than 140/[address] 1 Tablet under the tongue every 5 minutes as needed for Pain, Chest. 25 Tablet 11 12/16/2023 3:02 PM EST 12/15/19 24 Active Atorvastatin Calcium 40 MG Oral Tablet (Lipitor) TAKE 1 TABLET BY MOUTH EVERY DAY 100 Tablet 2 08/01/2024 6:49 AM EDT 01/13/20 24 Active Berberine HCI 500 MG Oral Capsule (Berberine Chloride) EDILBERTO gut supplement - 2 capsules daily in the morning Active Trulance 3 MG Oral Tablet (Plecanatide) take 1 tablet by mouth daily in the morning 90 Tablet 2 08/27/2024 12:55 PM EST 03/03/20 24 Active tiZANidine HCl 4 MG Oral Tablet (Zanaflex)Indicati ons:Post-polio syndrome,Postlamin ectomy syndrome,Chronic low back pain,Postlaminecto my syndrome, lumbar region,Postlaminec marino syndrome, thoracic region TAKE 1 TABLET BY MOUTH TWICE A DAY NEEDED FOR MUSCLE SPASMS, DO NOT TAKE WITH BACLOFEN 180 Tablet 1 04/05/2024 11:08 AM EDT 04/01/20 24 Active Apixaban 5 MG Oral Tablet (Eliquis)Indicatio ns:History of DVT (deep vein thrombosis) TAKE ONE TABLET BY MOUTH EVERY MORNING AND TAKE ONE TABLET BY MOUTH AT BEDTIME 200 Tablet 1 07/16/2024 2:08 PM EDT 04/08/20 24 025 Active traMADol HCl 50 MG Oral Tablet (Ultram) Take 1 Tablet by mouth every 6 hours as needed for Pain, Moderate. 10 Tablet 04/22/20 24 Active Pantoprazole Sodium 40 MG Oral Tablet Delayed Release (Protonix) Take 1 Tablet by mouth in the morning and 1 Tablet before bedtime. 200 Tablet 3 08/05/2024 11:49 AM EDT 05/02/20 24 Active Additional Information Patient taking differently:40 mg Oral BID (.AM/PM),Only taking daily., Reported on 09/05/2024 Ozempic (2 MG/DOSE) 8 MG/3ML Subcutaneous Solution Pen-injector (Semaglutide (2 MG/DOSE)) Inject 2 mg under the skin once weekly 9 mL 1 07/05/2024 3:12 PM EDT 07/04/20 24 Active Potassium Chloride Regla ER 10 MEQ Oral Tablet Extended ReleaseIndications :Hypokalemia Take 1 Tablet by mouth in the morning. 90 Tablet 3 07/08/20 24 Active busPIRone HCl 10 MG Oral Tablet (Buspar) take 1 tablet by mouth twice daily 180 Tablet 07/19/2024 12:31 PM EDT 07/18/20 24 Active traZODone HCl 150 MG Oral Tablet (Desyrel) take 2 tablets by mouth daily at bedtime 180 Tablet 07/29/2024 10:46 AM EDT 07/18/20 24 Active Metoprolol Succinate ER 100 MG Oral Tablet Extended Release 24 Hour (toPROL XL)Indications:HTN , goal below 130/80 TAKE 1 TABLET BY MOUTH EVERY DAY IN THE MORNING 90 Tablet 3 08/04/2024 7:01 AM EDT 08/02/20 24 Active Furosemide 20 MG Oral Tablet (Lasix)Indications :Chronic diastolic congestive heart failure (HCC) TAKE TWO TABLETS BY MOUTH EVERY MORNING 200 Tablet 2 08/16/2024 10:17 AM EDT 08/13/20 24 Active Promethazine HCl 25 MG Oral Tablet (Phenergan)Indicat ions:Nausea and vomiting, unspecified vomiting type Take 1 Tablet by mouth every 6 hours as needed for Nausea. 40 Tablet 1 09/07/2024 6:16 AM EST 09/05/20 24 Active Ondansetron HCl 4 MG Oral Tablet (Zofran)Indication s:Nausea and vomiting, unspecified vomiting type Take 1 Tablet by mouth 3 times a day as needed for Nausea or Vomiting. 30 Tablet 1 09/07/2024 6:16 AM EST 09/05/20 24 Active documented as of this encounter (statuses as of 09/07/2024) Active Problems Problem Noted Date Diagnosed Date Hyperlipidemia 12/15/2023 Depression, unspecified 10/28/2023 Type 2 diabetes mellitus [...] thrombosis) 02/08/2020 Coronary artery disease invo lving ute mountain coronary artery of ute mountain heart without angina pectoris 02/08/2020 Failed back surgical syndrome 02/08/2020 Gastroesophageal reflux disease with esophagitis 02/07/2020 GENE (generalized anxiety disorder) 02/07/2020 Chronic pain syndrome 07/28/2017 History of non-ST elevation myocardial infarctio n (NSTEMI) 04/02/2017 Body mass index 35.0-35.9, adult 03/29/2016 Overview (03/29/2016): bmi= 35.74 03/29/16 Hypothyroidism 01/24/2016 Post-polio syndrome 03/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 Essential hypertension with goal blood pressure less than 140/90 10/30/2005 Recurrent major depressive disorder, in full rem ission 10/30/2005 Cervical spondylosis 05/08/2004 Idiopathic scoliosis 05/01/2004 documented as of this encounter (statuses as of 09/07/2024) Resolved Problems Problem Noted Date Diagnosed Date Resolved Date Sacroiliitis 10/22/2021 10/22/2021 Morbid obesity, unspecified obesity type 10/22/2021 10/28/2023 Atrial fibrillation 10/22/2021 10/22/19 Opioid abuse 02/19/2021 10/28/2023 Unspecified mood (affective) disorder 08/21/2019 02/07/2020 Prediabetes 02/28/2019 08/02/2020 Overview: Per Prediabetes protocol #1 Encounter for examination fo r normal comparison and control in clinical research program 02/23/2018 05/21/2020 Overview (02/04/2021): DO NOT DELETE [facility] DIOGO Study: Project # [id number], Checker: Yoel Sung, PhD. SUMMARY: Goal: Establish test [...] contact study staff at ; after hours Checker via the [facility] hospital mottle lay up operator . Please contact study team before resolving/deleting from patients problem list. Study phone number: [phone]. Diagnosis changed due to Research Module. Go to Snapshot for study details. Encounter for examination fo r normal comparison and control in clinical research program 02/23/2018 06/19/2022 Overview (02/04/2021): DO NOT DELETE - [facility] DETECT Study: Project # [id number], Checker: Ranjeet Villa, MS, MPH. SUMMARY: Goal: Establish [...] contact study staff at ; after hours Checker via the [facility] hospital mottle lay up operator . - Please contact study team before resolving/deleting from patients problem list. Study phone number: [phone]. Diagnosis changed due to Research Module. Go to Snapshot for study details. Preop examination 03/29/2016 09/30/2016 Abnormal electrocardiogram 03/29/2016 1 11/07/2018 MEDICATION USE AGREEMENT 05/03/2015 Overview (05/03/2015): Signed 05/03/2015 Charanjit Spann MD [facility]. Encounter for long-term (cur rent) use of medications 12/31/2011 02/07/2020 Overview (08/11/2017): ICD-10 update of inactive term Postlaminectomy syndrome 12/16/201107/2017 Lumbago 12/16/2011 07/28/2017 Mixed dyslipidemia 10/30/2005 9 Overview (10/04/2009): Per Lipid Taxonomy. documented as of this encounter (statuses as of 09/07/2024) Immunizations Name Administration Dates Next Due COVID-19 mRNA, LNP-s, No Pre serve, 2-Dose Series ([email or web address]) 08/29/2021,03/06/2021,02/13/2021 COVID-19, LNP-s, No Preserve , Ad-sucrose, Ages 12+ (Pfizer) 02/07/2022 COVID-19, MRNA-LNP, PF, 30 M CG/0.3 mL, 12 YRS AND ABOVE, IM (PFIZER-Comirnaty) 06/30/2024,12/15/2023 Covid-19, Mrna, Lnp-s, Pf, B ivalent, 30 Mcg, IM, 12 yrs and above (Pfizer) 08/01/2022 Pneumococcal Conjugate Vacc, 13 Valent (Prevnar) 06/06/2016 Pneumococcal Polysaccharide PPV23 (Pneumovax) 01/26/2013 RSV Vac., Bivalent, Perfusio n F, Pf,0.5 Ml (Abrysvo) 12/15/2023 Season Influenza, Quad, PF, Adjuvanted, 65+ Yrs, IM (FLUAD) 06/25/2020 Seasonal Influenza Vac., MDV , IM, 0.5 mL (Fluzone) 07/03/2014 Seasonal Influenza, High Dos e, Trivalent, PF, IM (Fluzone HD) 06/30/2024,06/03/2018,08/30/2015 Seasonal Influenza, Quad, Nasal (Flumist) 2016 Seasonal Influenza, Quadriva lent Hd (Fluzone Hd) 07/02/2023,07/17/2022,07/09/2021 Seasonal Influenza, Quadriva lent, No Preserve, IM 08/04/2016 Seasonal Influenza, Trivalen t, Adjuvanted, 65+ YRS, PF, (Fluad) 06/19/2020,06/23/2019 TDAP (age 10 and older)(Boostrix) 01/24/2016 Varicella Zoster Vaccine (Adult) 02/02/2013 Zoster Vaccine Recombinant (Shingrix) 06/23/2019 ,03/18/2019,02/23/2018 documented as of this encounter Social History Tobacco Use Types Packs/Day Years Used Date Smoking Tobacco: Never Passive Smoke Exposure: Never Smokeless Tobacco: Never Tobacco Cessation:Counseling Given: Yes Alcohol Use Standard Drinks/Week Comments No 0 (1 standard drink = 0.6 oz pur e alcohol) PHQ-2 Answer Date Recorded PHQ Adult Total Score 0 10/28/2023 Hunger Vital Sign Answer Date Recorded Within the past 12 months, y ou worried that your food would run out before you got the money to buy more. Never true 06/30/20 24 Within the past 12 months, t he food you bought just didn't last and you didn't have money to get more. Never true 06/30/2024 Childcare Answer Date Recorded Do you feel overwhelmed with taking care of a child, family member or friend? No 06/30/2024 Does your family need help f inding childcare? (Household - for ages 0-17 years) Not on file 06/30/2024 Clothing Answer Date Recorded Have you been unable to get clothing when it was really needed? No 06/30/2024 Is your family able to get c lothes or diapers when needed? (Household - for ages 0-17 years) Not on file 06/30/2024 Personal Safety Answer Date Recorded Do you feel unsafe or have concerns for your saf ety? No 06/30/2024 Do you have concerns for you r family's safety? (Household - for ages 0-17 years) Not on file 06/30/2024 Utilities Answer Date Recorded Do you have trouble paying y our heating, water, or electric bill? No 06/30/2024 Is your family able to pay t he heat, water, or electric bill? (Household - for ages 0-17 years) Not on file 06/30/2024 Does your family have access to good internet? (Household - for ages 0-17 years) Not on file 06/30/2024 Employment Status Answer Date Recorded Are you unemployed or without regular income? No 06/30/2024 Does the household have a re lar source of income? (Household - for ages 0-17 years) Not on file 06/30/2024 Social Connections Answer Date Recorded How often do you feel lonely or isolated from those around you? Sometimes 06/30/2024 Financial Resource Strain Answer Date R ecorded Do you have any trouble payi ng for your medications, or do you think you might in the future? No 06/30/2024 Does your family have troubl e paying for medicine? (Household - for ages 0-17 years) Not on file 06/30/2024 Transportation Needs Answer Date Record ed READ ONLY Do you have troubl e getting a ride to medical visits or work? Sometimes True 06/30/2024 Does your family have a hard time getting a ride to doctors visits? (Household - for ages 0-17 years) Not on file 06/30/2024 Has lack of transportation k ept you from medical appointments, meetings, work, or from getting things needed for daily living? Check all that apply. Yes, it has kept me from non-medical meetings, appointments, work, or from getting things that I need;No 06/30/2024 Do you (or your family) have trouble finding or paying for a ride (transportation)? (Household - for ages 0-17 years) Not on file 06/30/2024 Housing Stability Answer Date Recorded Do you currently live in a s helter or have no steady place to sleep at night? No 06/30/2024 READ ONLY Do you think you a re at risk of becoming homeless? No 06/30/2024 Does your family worry about paying for your home or becoming homeless? (Household - for ages 0-17 years) Not on file 0 06/30/2024 Are you homeless or worried that you might be in the future? No 06/30/2024 Are you (or your family) alicia eless or worried that you might be in the future? (Household - for ages 0-17 years) Not on file Food Insecurity Answer Date Recorded Do you need food for this week? No 06/30/2024 Are you able to get enough f ood for your family? (Household - for ages 0-17 years) Not on file 06/30/2024 Does your family need food t his week? (Household - for ages 0-17 years) Not on file 06/30/2024 Do you always have enough fo od for your family? (Household - for ages 0-17 years) Not on file 06/30/2024 Comments No Sex and Gender Information Value Date Recorded Sex Assigned at Female 06/14/2020 12:32 PM EDT Legal Sex Female 5:16 AM EST Gender Identity Female 06/14/2020 12:32 PM EDT Sexual Orientation Straight 06/14/2020 12 :32 PM EDT Occupation Industry Job Start Date Job End Date DISABLED Not on file Not on file Not on file documented as of this encounter Last Filed Vital Signs Vital Sign Reading Time Taken Comments Blood Pressure 112/68 09/05/2024 8:47 AM EST Pulse 80 09/05/2024 8:47 AM EST Temperature 36.9 C (98.5 F) 09/05/2024 8:47 AM ES T Respiratory Rate 14 09/05/2024 8:47 AM EST Oxygen Saturation 96% 09/05/2024 8:47 AM EST Inhaled Oxygen Concentration - - Weight 77.5 kg (170 lb 12.8 oz) 09/05/2024 8:47 AM EST Height 160.7 cm (5' 3.25") 09/05/2024 8:47 AM ES T Body Mass Index 30.02 09/05/2024 8:47 AM EST documented in this encounter Functional Status * Are you deaf or do you have serious difficulty hearing? Answer Date of Assessment Author No 03/12/2021 5:05 PM EDT Ramiro Green RN * Are you blind or do you have serious difficulty seeing, even when wearing glasses? Answer Date of Assessment Author No 03/12/2021 5:05 PM EDT Ramiro Green RN * Do you have serious difficulty walking or climbing stairs? (5 years old or older) Answer Date of Assessment Author No 03/12/2021 5:05 PM EDT Ramiro Green RN * Do you have difficulty dressing or bathing? (5 years old or older) Answer Date of Assessment Author No 03/12/2021 5:05 PM EDT Ramiro Green RN * Because of a physical, mental, or emotional condition, do you have difficulty doing errands alone such as visiting a doctors office or shopping? (15 years old or older) Answer Date of Assessment Author No 03/12/2021 5:05 PM Ramiro Landa RN documented as of this encounter Mental Status * Because of a physical, mental, or emotional condition, do you have serious difficulty concentrating, remembering, or making decisions? (5 years old or older) Answer Entry Date Author No 03/12/2021 5:05 PM Ramiro Landa RN documented in this encounter Progress Notes * Svetlana Jacobs, - 09/05/2024 9:11 AM EST SUBJECTIVE: Chief Complaint Patient presents with pre-op exam HPI: Ester Lua is a 74 year old female who presents today for pre- operative exam. Pt will undergo shoulder surgery with Dr. Rosado on . She has had extensive cardiac testing and was cleared previously by cardiology. She notes that she did see anesthesia as well. No issues with anesthesia in the past. No shortness of breath or chest pain. No recent illnesses. She notes she will have people who can check in on her but nobody to stay with her. She notes she is likely going to [facility] after surgery. PHM: Patient Active Problem List Diagnosis Idiopathic scoliosis Cervical spondylosis Essential hypertension with goal blood pressure less than 140/90 Recurrent major depressive disorder, in full remission (HCC) Dyslipidemia Postlaminectomy syndrome, lumbar region Postlaminectomy syndrome, thoracic region Post-polio syndrome Post traumatic stress disorder (PTSD) Hypothyroidism Body mass index 35.0-35.9, adult History of non-ST elevation myocardial infarction (NSTEMI) Chronic pain syndrome Gastroesophageal reflux disease with esophagitis GENE (generalized anxiety disorder) History of DVT (deep vein thrombosis) Coronary artery disease involving ute mountain coronary artery of ute mountain heart without angina pectoris Failed back surgical syndrome Migraine variant Chronic diastolic congestive heart failure ([facility]) Type 2 diabetes mellitus with hemoglobin A1c goal of less than 7.0% ([facility]) Diabetes mellitus with stage 3 chronic kidney disease ([facility]) Age-related osteoporosis without current pathological fracture Bipolar II disorder ([facility]) Type 2 diabetes mellitus with diabetic polyneuropathy, without long-term current use of insulin ([facility]) Depression, unspecified Hyperlipidemia Current Outpatient Medications Medication Sig Dispense Refill Triamcinolone Acetonide 0.1 % External Cream (Aristocort) Apply topically to affected area 2 times a day . To affected area. 60 g 5 Ketoconazole 2 % External Cream Apply topically to affected area 2 times a day . Apply to under breasts 60 g 5 Aspirin EC 81 MG Oral Tablet Delayed Release Take 1 Tablet by mouth in the morning. Centrum Silver 50+Women Oral Tablet Take 1 Tablet by mouth in the morning. Olopatadine HCl 0.2 % Ophthalmic Solution INSTILL 1 DROP INTO BOTH EYES DAILY. 7.5 mL 1 Advanced Probiotic Oral Capsule Take 2 Capsules by mouth in the morning. Myrbetriq 25 MG Oral Tablet Extended Release 24 Hour (Mirabegron ER) Take 1 Tablet by mouth in the morning. 30 Tablet 6 Loperamide HCl 2 MG Oral Capsule (Imodium) Take 1 Capsule by mouth 4 times a day as needed for Diarrhea. Levothyroxine Sodium 75 MCG Oral Tablet (Levoxyl) TAKE 1 TABLET BY MOUTH DAILY 30 MINUTES BEFORE BREAKFAST OR MEDS 90 Tablet 3 Nitroglycerin 0.3 MG Sublingual Tablet Sublingual (Nitrostat) Place 1 Tablet under the tongue every5 minutes as needed for Pain, Chest. 25 Tablet 11 Atorvastatin Calcium 40 MG Oral Tablet (Lipitor) TAKE 1 TABLET BY MOUTH EVERY DAY 100 Tablet 2 Berberine HCI 500 MG Oral Capsule (Berberine Chloride) EDILBERTO gut supplement - 2 capsules daily in the morning Trulance 3 MG Oral Tablet (Plecanatide) take 1 tablet by mouth daily in the morning 90 Tablet 2 tiZANidine HCl 4 MG Oral Tablet (Zanaflex) TAKE 1 TABLET BY MOUTH TWICE A DAY NEEDED FOR MUSCLE SPASMS, DO NOT TAKE WITH BACLOFEN 180 Tablet 1 Apixaban 5 MG Oral Tablet (Eliquis) TAKE ONE TABLET BY MOUTH EVERY MORNING AND TAKE ONE TABLET BY MOUTH AT BEDTIME 200 Tablet 1 traMADol HCl 50 MG Oral Tablet (Ultram) Take 1 Tablet by mouth every 6 hours as needed for Pain, Moderate. 10 Tablet 0 Pantoprazole Sodium 40 MG Oral Tablet Delayed Release (Protonix) Take 1 Tablet by mouth in the morning and 1 Tablet before bedtime. (Patient taking differently: Take 1 Tablet by mouth in the morning and 1 Tablet before bedtime. Only taking daily. .) 200 Tablet 3 Ozempic (2 MG/DOSE) 8 MG/3ML Subcutaneous Solution Pen-injector (Semaglutide (2 MG/DOSE)) Inject 2 mg under the skin once weekly 9 mL 1 Potassium Chloride Regla ER 10 MEQ Oral Tablet Extended Release Take 1 Tablet by mouth in the morning. 90 Tablet 3 busPIRone HCl 10 MG Oral Tablet (Buspar) take 1 tablet by mouth twice daily 180 Tablet 0 traZODone HCl 150 MG Oral Tablet (Desyrel) take 2 tablets by mouth daily at bedtime 180 Tablet 0 Metoprolol Succinate ER 100 MG Oral Tablet Extended Release 24 Hour (toPROL XL) TAKE 1 TABLET BY MOUTH EVERY DAY IN THE MORNING 90 Tablet 3 Furosemide 20 MG Oral Tablet (Lasix) TAKE TWO TABLETS BY MOUTH EVERY MORNING 200 Tablet 2 Promethazine HCl 25 MG Oral Tablet (Phenergan) Take 1 Tablet by mouth every 6 hours as needed for Nausea. 40 Tablet 1 Ondansetron HCl 4 MG Oral Tablet (Zofran) Take 1 Tablet by mouth 3 times a day as needed for Nauseaor Vomiting. 30 Tablet 1 Roller Walker Rolling walker with seat and brakes. Would like walker with bigger wheels Would like cornflower blue or green in color 1 Each 0 EpiPen 2-Lee 0.3 MG/0.3ML Injection Solution Auto-injector INJECT INTO OUTER THIGH FOLLOWING DIRECTIONS ON PACKAGE AND TO GO EMERGENCY ROOM (Patient not taking: Reported on 09/05/2024) 2 Each 1 No current facility-administered medications for this visit. Past Medical History: Diagnosis Date ADJ DISORDER W/DEPRES MOOD 10/30/2005 Cervical spondylosis 05/08/2004 Chronic diastolic congestive heart failure (HCC) 04/09/2020 Coronary artery disease involving ute mountain coronary artery of ute mountain heart without angina pectoris 02/08/2020 Dyslipidemia, goal to be determined 10/04/2009 Per Lipid Taxonomy. Encounter for long-term (current) use of other medications 12/31/2011 Failed back surgical syndrome 02/08/2020 GENE (generalized anxiety disorder) 02/07/2020 Gastroesophageal reflux disease with esophagitis 02/07/2020 History of DVT (deep vein thrombosis) 02/08/2020 HTN, goal below 130/80 10/30/2005 HTN, goal below 140/90 10/30/2005 Hypothyroid Idiopathic scoliosis 05/01/2004 Lumbago 12/16/2011 Migraine variant 04/08/2020 Migraine variant, intractable cluster Migraine with intractable migraine Post traumatic stress disorder (PTSD) 03/01/2015 Post-polio syndrome 03/01/2015 Postlaminectomy syndrome, lumbar region 12/16/2011 Postlaminectomy syndrome, thoracic region 12/16/2011 Postlaminectomy syndrome, unspecified region 12/16/2011 Recurrent major depressive disorder, in full remission (HCC) 10/30/2005 Past Surgical History: Procedure Laterality Date ABDOMEN SURGERY PROCEDURE NEC 09/17/2016 I and D of infection abd wall hematoma ARTHRODESIS SACROILIAC JOINT Left 01/08/2021 ARTHRODESIS, SACROILIAC JOINT, PERCUTANEOUS OR MINIMALLY INVASIVE performed by Kuldeep Fisher DO at OR [facility] ARTHRODESIS SACROILIAC JOINT Right 03/12/2021 ARTHRODESIS, SACROILIAC JOINT, PERCUTANEOUS OR MINIMALLY INVASIVE performed by Kuldeep Fisher DO at OR [facility] CATARACT SURGERY,COMPLEX Left 12/26/2018 COLONOSCOPY, DIAGNOSTIC (RECTUM) 03/08/2015 ischemic colitis, diverticulosis COLONOSCOPY, DIAGNOSTIC (RECTUM) 09/17/2016 hiatal hernia/[facility] COLONOSCOPY, DIAGNOSTIC (RECTUM) 07/20/2018 poor prep, diverticulosis/COLONOSCOPY FLEXIBLE PROXIMAL DIAGNOSTIC performed by Ирина Sanders MD at ENDOSCOPY [facility] COLONOSCOPY, DIAGNOSTIC (RECTUM) 08/19/2019 normal bx / COLONOSCOPY FLEXIBLE PROXIMAL DIAGNOSTIC performed by Ирина Sanders MD at ENDOSCOPY [facility] EGD, FLEXIBLE, DIAGNOSTIC 08/19/2019 reflux on bx / ESOPHAGOGASTRODUODENOSCOPY (EGD), FLEXIBLE, TRANSORAL, DIAGNOSTIC performed by Ирина Sanders MD at ENDOSCOPY [facility] EXCISION EXCES SKIN,PANNICULECTOMY,INFRAUMB N/A 08/19/2016 EXCISION EXCESSIVE SKIN AND SUBCUTANEOUS TISSUE INCLUDING LIPECTOMY ABDOMEN INFRAUMBILICAL PANNICULECTOMY performed by Latrell Negron MD at OR [facility] FOOT/TOE SURGERY NEC Right 07/2023 removal of cyst and tendon repair FOREARM/WRIST SUBQ TUMOR REMOVE,3CM OR MORE Right 08/29/2022 EXCISION FOREARM/WRIST SUBQ TUMOR, 3CM OR MORE performed by Abelardo Nieves MD at OR [facility] HYSTEROSCOPY W/BIOPSY AND/OR POLYPECTOMY W/WO D&C N/A 07/07/2024 HYSTEROSCOPY WITH BIOPSY AND/OR POLYPECTOMY WITH OR WITHOUT D&C performed by Dre Bennett MD at OR [facility] INCISION OF TENDON SHEATH Right 11/26/2017 INCISION EXTENSOR TENDON SHEATH WRIST performed by Prashanth Nguyễn Jr., MD at OR [facility] INFORMATION spinal fusion x 5 back surgeries PELVIC EXAM UNDER ANESTHESIA, NOT LOCAL N/A 07/07/2024 PELVIC EXAMINATION UNDER ANESTHESIA performed by Dre Bennett MD at OR [facility] REMOVAL OF APPENDIX Appendectomy REMOVAL OF OVARIAN CYST(S) Ovarian cystectomy REPAIR OF KNEE CARTILAGE Right Meniscus Repair, Open REPAIR RUPTURED ROTATOR CUFF, ACUTE Right Rotator cuff repair SACROILIAC JOINT INJECT W/GUIDANCE 11/28/2020 INJECTION SACROILIAC JOINT performed by Juan Luis Knight DO at OR [facility] TENDON SHEATH INCISION, FINGER Right 11/26/2017 TRIGGER FINGER RELEASE performed by Prashanth Nguyễn Jr., MD at OR [facility] Review of patient's allergies indicates: Allergen Reactions Ibuprofen Bleeding (NSAIDS) Other reaction(s): Bleeding Latex Rash Other reaction(s): Rash Nickel Rash/blisters if intermediate exposure Other reaction(s): SEVERE DERMATITIS Other reaction(s): CD - Contact dermatitis Nsaids Other reaction(s): HX OF BLEEDING ULCERS-TO AVOID Oxycodone Neuro complications (Please comment) Opioid abuse Other reaction(s): neuro complications opioid abuse-recent overdose 01/2021 Adhesive Tape Other (Please comment) Skin irritation Family History Problem Relation Name Age of Onset Hypertension Mother Heart failure Mother Hypertension Father Glaucoma Father Blindness Father at , legally blind in one eye Heart attack Father Heart failure Sister twin sister Gastro-intestinal disorder Son Sphincter of Oddi Breast Cancer Aunt (Unspecified) great aunt Diabetes None Stroke None Thyroid Disorder None Brain cancer Niece Family Status Relation Status Mo (Not Specified) Fa (Not Specified) Sis (Not Specified) Son Alive AUNT (Not Specified) NONE (Not Specified) NONE (Not Specified) NONE (Not Specified) Niece (Not Specified) Social History Tobacco Use Smoking status: Never Passive exposure: Never Smokeless tobacco: Never Substance Use Topics Alcohol use: No Vaping/E-Cigarette Use Vaping/E-Cigarette Use Never User Vaping/E-Cigarette Substances Vaping/E-Cigarette Devices REVIEW OF SYSTEMS: Review of Systems Constitutional: Negative for chills, fatigue, fever and unexpected weight change. Respiratory: Negative for cough, chest tightness, shortness of breath and wheezing. Cardiovascular: Negative for chest pain, palpitations and leg swelling. Gastrointestinal: Negative for abdominal pain, constipation, diarrhea, nausea and vomiting. Musculoskeletal: Negative for arthralgias, gait problem and joint swelling. Skin: Negative for color change, pallor and rash. OBJECTIVE: BP 112/68 (BP Site: Left Arm, BP Position: Sitting, BP Cuff Size: Large) | Pulse 80 | Temp 36.9 C(98.5 F) (Tympanic) | Resp 14 | Ht 1.607 m (5' 3.25") | Wt 77.5 kg (170 lb 12.8 oz) | SpO2 96% | BMI 30.02 kg/m | BSA 1.86 m PHYSICAL EXAM: Physical Exam Constitutional: General: She is not in acute distress. Appearance: She is well-developed. Cardiovascular: Rate and Rhythm: Normal rate and regular rhythm. Heart sounds: Normal heart sounds. No murmur heard. No friction rub. No gallop. Pulmonary: Effort: Pulmonary effort is normal. No respiratory distress. Breath sounds: Normal breath sounds. No wheezing or rales. Abdominal: General: Bowel sounds are normal. There is no distension. Palpations: Abdomen is soft. Tenderness: There is no abdominal tenderness. There is no guarding. Musculoskeletal: General: No tenderness or deformity. Normal range of motion. Skin: General: Skin is warm and dry. Coloration: Skin is not pale. Findings: No erythema or rash. Neurological: Mental Status: She is alert and oriented to person, place, and time. ASSESSMENT/PLAN: (Z01.818) Pre-operative clearance (primary encounter diagnosis) (M25.511, G89.29) Chronic right shoulder pain Plan: pt will undergo surgery with Dr. Rosado later this week. She has been medically cleared by cardiology. No change in status since that time. Medically maximized for OR. (E11.42) Type 2 diabetes mellitus with diabetic polyneuropathy, without long- term current use of insulin (HCC) (E11.9) Type 2 diabetes mellitus with hemoglobin A1c goal of less than 7.0% (HCC) Plan: ALBUMIN / CREATININE RATIO, URINE DM has been well controlled. Remain on current regimen. No changes for now. (I10) Essential hypertension with goal blood pressure less than 140/90 Plan: BP controlled. No changes for now. Follow-up: 3 months and after surgery discharge Total time today including reviewing chart before the visit, pertinent labs, imaging reports, face to face time, and documentation time was 33 minutes. Svetlana Jacobs DO * Rose Miller LPN - 09/05/2024 8:46 AM EST Urine albumin/creatinine ratio ordered today. Provider aware. documented in this encounter Nursing Notes * Rose Miller LPN - 09/05/2024 8:44 AM EST Patient here for pre-op exam. Reports she is having right shoulder replacement on , Dr. Rosado at [facility] ortho. Reports she is to start holding low dose aspirin and eliquis starting tomorrow. Reports her urine has a strange, familiar chemical smell in the morning. Denies burning, urgency, frequency. Reports she is not allergic to Nickel and not allergic to Oxycodone. Would like to wait until after surgery for Pneumococcal vaccine. documented in this encounter Plan of Treatment Upcoming Encounters Date Type Department Care Team (Late st Contact Info) Description 09/21/2024 3:30 PM EST Home Visit Care at Home [address] [place] [address] Karen Lezama PA-C [address] [facility] [address] 09/29/2024 2:40 PM EST Office Visit Nephrology, [facility] [address] [place] [address] Blake Becker MD [address] [facility] [place] [address] 11/18/2024 11:20 AM EST Office Visit Family Practice [address] [place] [address] [address] [place] [id number] Svetlana Jacobs DO [address] [place] [address] 12/20/2024 8:30 AM EST Office Visit Cardiology, [facility] [address] [facility] [place] [address] Dann Hancock PA-C [address] [facility] [place] [address] Scheduled Orders Name Type Priority Associated Diagnoses Orde r Schedule ALBUMIN / CREATININE RATIO, URINE Lab Routine Type 2 diabetes mellitus with diabetic polyneuropathy, without long-term current use of insulin (HCC) Expected: 09/05/2024, Expires: 09/05/2025 Health Maintenance Due Date Last Done Comments HOME BP CUFF VALIDATION YEARLY 07/01/2020 07/01/2019 *BISPHONATE OR OTHER ACCEPTABLE MEDICATION NEEDED FOR OSTEOPOROSIS (REFER TO SMARTSET #1146) 10/31/2022 Adult Wellness Visit 09/29/2024 09/29/2023, 07/09/20 21 Albumin/Creatinine Ratio 10/16/2024 023, 12/03/2022, 01/15/2022, Additional history exists TSH 10/16/2024 10/16/2023, 12/2022, 06/20/2022, Additional history exists Depression Monitoring 10/28/2024 10/28/2023 GFR 01/03/2025 07/06/2024, 02/16, 02/09/2024, Additional history exists HbA1c 01/03/2025 07/06/2024, 09/19, 06/26/2023, Additional history exists Diabetic Eye Exam 01/21/2025 01/22/2024, , 01/20/2023, Additional history exists CKD PHOS USE SMARTSET 03950 02/08/202501/18, 10/16/2023, 01/28/2023, Additional history exists CKD HGB USE SMARTSET 59491 02/25/202502/25, 02/09/2024, 02/09/2024, Additional history exists Diabetic Foot Exam 06/30/2025 06/30/2024, 0 05/26/2023, 08/01/2022, Additional history exists DXA Scan 01/10/2026 01/11/2024, 12/18, 07/30/2021, Additional history exists DTap/Tdap Vaccines (2 - Td or Tdap) 01/23/2026 01/24/2016 Pneumococcal Vaccine: 65+ Years Completed 06/06/2016, 01/26/2013 Zoster Vaccines Completed 06/23/2019, 02/18, 02/23/2018, Additional history exists Colonoscopy Discontinued 08/19/2019, 10/2018, 07/20/2018, Additional history exists Colorectal Cancer Screening Discontinued VITAMIN D LEVEL ONCE IN A LIFETIME-USE SMARTSET# [id number] Completed 11/13/2022, 05/07/2006 COVID-19 Vaccine Completed 06/30/2024, , 08/01/2022, Additional history exists Influenza Vaccine (FLU shot) Completed 06/30/2024, 07/02/2023, 07/17/2022, Additional history exists Cologuard Discontinued Fecal Occult Blood Test Discontinued HPV (Gardasil) Vaccine Aged Out No lo nger eligible based on patient's age to complete this topic Hepatitis B Vaccine Aged Out No longe r eligible based on patient's age to complete this topic MENINGOCOCCAL (MENACTRA/MENVEO) Aged Out No longer eligible based on patient's age to complete this topic Sigmoidoscopy Discontinued documented as of this encounter Medical Devices Implanted Type Area Comb Setter Device Identifier Shelf Expiration Date Model / Serial / Lot Dbx 5cc [id number] - [id number] - [id number] Implanted:Qty : 1 on 01/08/2021 by Kuldeep Fisher DO at OR [facility] Tissue - Human Left: Spine Lumbar [employer]ND [id number] 06/18/2022 [id number] / [id number] / LOT NA Description:[id number] Implant Ifuse 3d 7x55 Mm - [id number] Implanted:Qty : 1 on 01/08/2021 by Kuldeep Fisher DO OR [facility] Left: Spine Lumbar [employer] 09/05/2024 7055M-90 / / [id number] Implant Ifuse 3d 7x55 Mm - [id number] Implanted:Qty : 1 on 01/08/2021 by Kuldeep Fisher DO OR [facility] Left: Spine Lumbar [employer] 03/29/2024 7055M-90 / / [id number] Ifuse Implant System 7.0 X 50mm Implant Implanted:Qty : 1 on 01/08/2021 by Kuldeep Fisher DO OR [facility] Left: Spine Lumbar 05/11/2025 7050M-90 / / [id number] Implant Ifuse 3d 7x50 Mm - [id number] Implanted:Qty : 2 on 03/12/2021 by Kuldeep Fisher DO at OR [facility] Right: Pelvis [employer] 09/18/2025 7050M-90 / / [id number] Dbx 2.5cc [id number] - [id number] - [id number] Implanted:Qty : 1 on 03/12/2021 by Kuldeep Fisher DO OR [facility] Right: Iliac [employer] [id number] 07/20/2022 [id number] / [id number] / LOT NA Implant Ifuse 3d 7x45 Mm - [id number] Implanted:Qty : 1 on 03/12/2021 by Kuldeep Fisher DO at OR [facility] Right: Pelvis [employer] 09/18/2025 7045M-90 / / [id number] documented as of this encounter Visit Diagnoses Diagnosis Pre-operative clearance- Primary Preoperative examination, unspecified Chronic right shoulder pain Pain in joint, shoulder region Type 2 diabetes mellitus with diabetic polyneuropathy, without long-term current use of insulin (HCC) Type 2 diabetes mellitus with hemoglobin A1c goal of less than 7.0% (HCC) Essential hypertension with goal blood pressure less than 140/90 documented in this encounter Advance Directives * Full Code (Latest Code Status on File) Date Activated Date Inactivated Comments 03/12/2021 2:35 PM 03/14/2021 6:46 PM This order r eflects the patients wishes and were consensually agreed upon. Question Answer Comments Discussion of Advance Directives occurred with: Not Discussed * Full Code Date Activated Date Inactivated Comments 01/09/2021 9:12 PM 01/11/2021 9:11 AM Question Answer Comments Discussion of Advance Directives occurred with: Not Discussed * Full Code Date Activated Date Inactivated Comments 08/19/2016 2:33 PM 08/21/2016 7:54 PM Question Answer Comments Discussion of Advance Directives occurred with: Not Discussed Care Teams Ice Skating Coach Relationship Specialty Start Date End Date Svetlana Jacobs DO [address] [place] [address] PCP - General Family Medicine 03/31/24 documented as of this encounter
--- OUTSIDE RECORDS SUMMARY | 2024-09-09 08:39 | External Medical Summary | Summary of Care ---
Author Name Unknown Organization [facility] Address [address] [place] [address] Phone [phone] Care Team Providers Care Supervisor [employer] Name Role Phone Svetlana Nicole DO Primary Care Provider [phone] Reason for Visit * Reason Onset Date Comments Medication Refill 09/01/2024 Encounter Details Date Type Department Care Team (Late st Contact Info) Description 09/01/2024 Refill Family Practice [address], [place] [address] [place] [id number] Svetlana Nicole DO [address] [place] [address] Nausea and vomiting, unspecified vomiting type Allergies Active Allergy Reactions Criticality Noted Date Comments Adhesive Tape Other (Please comment) Low 07/19/2019 Skin irritation Ibuprofen Bleeding High 09/03/2016 (NSAIDS) Other reaction(s): Bleeding Latex Rash High 01/25/2019 Other reaction(s): Rash Nickel High 12/16/2011 Rash/blisters if senior living exposure Other reaction(s): SEVERE DERMATITIS Other reaction(s): CD - Contact dermatitis Nsaids High 07/25/2015 Other reaction(s): HX OF BLEEDING ULCERS-TO AVOID Oxycodone Neuro complications (Please comment) High 02/19/2021 Opioid abuse Other reaction(s): neuro complications opioid abuse-recent overdose 01/2021 documented as of this encounter (statuses as of 09/05/2024) Medications Triamcinolone Acetonide 0.1 % External Cream [...] BREAKFAST OR MEDS 90 Tablet 3 4 12:21 PM EST 12/01/19 24 Active EpiPen 2-Lee 0.3 MG/0.3ML Injection Solution Auto-injector INJECT INTO OUTER THIGH FOLLOWING DIRECTIONS ON PACKAGE AND TO GO EMERGENCY ROOM 2 Each 1 4 3:02 PM EST 12/15/19 24 Active Nitroglycerin 0.3 MG Sublingual Tablet Sublingual (Nitrostat)Indicat ions:Coronary artery disease involving king salmon coronary artery of king salmon heart without angina pectoris,Dyslipide vivienne, goal LDL below 100,Essential hypertension with goal blood pressure less than 140/90 Place 1 Tablet under the tongue every 5 minutes as needed for Pain, Chest. 25 Tablet 11 4 3:02 PM EST 12/15/19 24 Active Atorvastatin Calcium 40 MG Oral Tablet (Lipitor) TAKE 1 TABLET BY MOUTH EVERY DAY 100 Tablet 2 4 6:49 AM EDT 01/13/20 24 Active Berberine HCI 500 MG Oral Capsule (Berberine Chloride) EDILBERTO gut supplement - 2 capsules daily in the morning Active Trulance 3 MG Oral Tablet (Plecanatide) take 1 tablet by mouth daily in the morning 90 Tablet 2 4 12:55 PM EST 03/03/20 24 Active tiZANidine HCl 4 MG Oral Tablet (Zanaflex)Indicati ons:Post-polio syndrome,Postlamin ectomy syndrome,Chronic low back pain,Postlaminecto my syndrome, lumbar region,Postlaminec marino syndrome, thoracic region TAKE 1 TABLET BY MOUTH TWICE A DAY NEEDED FOR MUSCLE SPASMS, DO NOT TAKE WITH BACLOFEN 180 Tablet 1 4 11:08 AM EDT 04/01/20 24 Active Apixaban 5 MG Oral Tablet (Eliquis)Indicatio ns:History of DVT (deep vein thrombosis) TAKE ONE TABLET BY MOUTH EVERY MORNING AND TAKE ONE TABLET BY MOUTH AT BEDTIME 200 Tablet 1 4 2:08 PM EDT 04/08/20 24 025 Active traMADol HCl 50 MG Oral Tablet (Ultram) Take 1 Tablet by mouth every 6 hours as needed for Pain, Moderate. 10 Tablet 04/22/20 24 Active Pantoprazole Sodium 40 MG Oral Tablet Delayed Release (Protonix) Take 1 Tablet by mouth in the morning and 1 Tablet before bedtime. 200 Tablet 3 4 11:49 AM EDT 05/02/20 24 Active Additional Information Patient taking differently:40 mg Oral BID (.AM/PM),Only taking daily., Reported on 06/30/2024 Ozempic (2 MG/DOSE) 8 MG/3ML Subcutaneous Solution Pen-injector (Semaglutide (2 MG/DOSE)) Inject 2 mg under the skin once weekly 9 mL 1 4 3:12 PM EDT 07/04/20 24 Active Potassium Chloride Regla ER 10 MEQ Oral Tablet Extended ReleaseIndications :Hypokalemia Take 1 Tablet by mouth in the morning. 90 Tablet 3 07/08/20 24 Active busPIRone HCl 10 MG Oral Tablet (Buspar) take 1 tablet by mouth twice daily 180 Tablet 4 12:31 PM EDT 07/18/20 24 Active traZODone HCl 150 MG Oral Tablet (Desyrel) take 2 tablets by mouth daily at bedtime 180 Tablet 4 10:46 AM EDT 07/18/20 24 Active Metoprolol Succinate ER 100 MG Oral Tablet Extended Release 24 Hour (toPROL XL)Indications:HTN , goal below 130/80 TAKE 1 TABLET BY MOUTH EVERY DAY IN THE MORNING 90 Tablet 3 4 7:01 AM EDT 08/02/20 24 Active Furosemide 20 MG Oral Tablet (Lasix)Indications :Chronic diastolic congestive heart failure (HCC) TAKE TWO TABLETS BY MOUTH EVERY MORNING 200 Tablet 2 4 10:17 AM EDT 08/13/20 24 Active Promethazine HCl 25 MG Oral Tablet (Phenergan)Indicat ions:Nausea and vomiting, unspecified vomiting type Take 1 Tablet by mouth every 6 hours as needed for Nausea. 40 Tablet 1 09/05/20 24 Active Ondansetron HCl 4 MG Oral Tablet (Zofran)Indication s:Nausea and vomiting, unspecified vomiting type Take 1 Tablet by mouth 3 times a day as needed for Nausea or Vomiting. 30 Tablet 1 09/05/20 24 Active Promethazine HCl 25 MG Oral Tablet (Phenergan)Indicat ions:Nausea and vomiting, unspecified vomiting type Take 1 Tablet by mouth every 6 hours as needed for Nausea. 40 Tablet 1 04/29/20 24 024 Discontin ued(Refil l) Ondansetron HCl 4 MG Oral Tablet (Zofran)Indication s:Nausea and vomiting, unspecified vomiting type Take 1 Tablet by mouth 3 times a day as needed for Nausea or Vomiting. 30 Tablet 08/11/20 24 024 Discontin ued(Refil l) documented as of this encounter (statuses as of 09/05/2024) Active Problems Problem Noted Date Diagnosed Date [...] thrombosis) 02/08/2020 Coronary artery disease invo lving king salmon coronary artery of king salmon heart without angina pectoris 02/08/2020 Failed back [...] as of this encounter (statuses as of 09/05/2024) Resolved Problems Problem Noted Date Diagnosed Date Resolved Date Sacroiliitis 10/22/2021 10/22/2021 Morbid obesity, unspecified obesity type 10/22/2021 10/28/2023 Atrial fibrillation 10/22/2021 10/22/19 Opioid abuse 02/19/2021 10/28/2023 Unspecified mood (affective) disorder 08/21/2019 02/07/2020 Prediabetes 02/28/2019 08/02/2020 Overview: Per Prediabetes protocol #1 Encounter for examination fo r normal comparison and control in clinical research program 02/23/2018 05/21/2020 Overview (02/04/2021): DO NOT DELETE [facility] DIOGO Study: Project # [id number], Animal Assisted Therapist: Yoel Sung, PhD. SUMMARY: Goal: Establish test [...] contact study staff at ; after hours Animal Assisted Therapist via the [facility] hospital cistern room operator . Please contact study team before resolving/deleting from patients problem list. Study phone number: [phone]. Diagnosis changed due to Research Module. Go to Snapshot for study details. Encounter for examination fo r normal comparison and control in clinical research program 02/23/2018 06/19/2022 Overview (02/04/2021): DO NOT DELETE - [facility] DETECT Study: Project # [id number], Animal Assisted Therapist: Ranjeet Villa, MS, MPH. SUMMARY: Goal: Establish [...] contact study staff at ; after hours Animal Assisted Therapist via the [facility] hospital cistern room operator . - Please contact study team before resolving/deleting from patients problem list. Study phone number: [phone]. Diagnosis changed due to Research Module. Go to Snapshot for study details. Preop examination 03/29/2016 09/30/2016 Abnormal electrocardiogram 03/29/2016 1 11/07/2018 MEDICATION USE AGREEMENT 05/03/2015 Overview (05/03/2015): Signed 05/03/[address] [facility] Encounter for long-term (cur rent) use of medications 12/31/2011 02/07/2020 Overview (08/11/2017): ICD-10 update of inactive term Postlaminectomy syndrome 12/16/201107/2017 Lumbago 12/16/2011 07/28/2017 Mixed dyslipidemia 10/30/2005 9 Overview (10/04/2009): Per Lipid Taxonomy. documented as of this encounter (statuses as of 09/05/2024) Immunizations Name Administration Dates Next Due COVID-19 mRNA, LNP-s, No Pre serve, 2-Dose Series ([employer] 08/29/2021,03/06/2021,02/13/2021 COVID-19, LNP-s, No Preserve , Ad-sucrose, Ages 12+ ([employer] 02/07/2022 COVID-19, MRNA-LNP, PF, 30 M CG/0.3 mL, 12 YRS AND ABOVE, IM ([employer]-Comirnaty) 06/30/2024,12/15/2023 Covid-19, Mrna, Lnp-s, Pf, B ivalent, 30 Mcg, IM, 12 yrs and above ([employer] 08/01/2022 Pneumococcal Conjugate Vacc, 13 Valent (Prevnar) [...] documented as of this encounter Functional Status * Are you [...] 03/12/2021 5:05 PM EDT Ramiro Green RN documented as of this encounter Mental Status * Because of a physical, mental, or emotional condition, do you have serious difficulty concentrating, remembering, or making decisions? (5 years old or older) Answer Entry Date Author No 03/12/2021 5:05 PM Ramiro Landa RN documented in this encounter Miscellaneous Notes * Telephone Encounter - Svetlana Nicole DO - 09/05/2024 8:18 AM ESTSigned Prescriptions: Disp Refills Promethazine HCl 25 MG Oral Tablet (Phener*40 Tab*1 Sig: Take 1 Tablet by mouth every 6 hours as needed for Nausea. Authorizing Provider: SVETLANA NICOLE Ondansetron HCl 4 MG Oral Tablet (Zofran) 30 Tab*1 Sig: Take 1 Tablet by mouth 3 times a day as needed for Nausea or Vomiting. Authorizing Provider: SVETLANA NICOLE * Telephone Encounter - Asia Spann [facility] - 09/02/2024 3:39 PM ESTPending Prescriptions: Disp Refills Promethazine HCl 25 MG Oral Tablet (Phener*40 Tab*1 Sig: Take 1 Tablet by mouth every 6 hours as needed for Nausea. Ondansetron HCl 4 MG Oral Tablet (Zofran) 30 Tab*1 Sig: Take 1 Tablet by mouth 3 times a day as needed for Nausea or Vomiting. * Telephone Encounter - Asia Spann [facility] - 09/02/2024 3:36 PM EST [facility] is currently not authorized to approve refills for the pended medication(s) per refill protocol. Please approve if appropriate. Did you pend patient's preferred pharmacy and medication before forwarding?yes Pharmacy: [facility] Pending Prescriptions: Disp Refills Promethazine HCl 25 MG Oral Tablet (Phene*40 Tab*1 Sig: Take 1 Tablet by mouth every 6 hours as needed for Nausea. Ondansetron HCl 4 MG Oral Tablet (Zofran) 30 Tab*1 Sig: Take 1 Tablet by mouth 3 times a day as needed for Nausea or Vomiting. Last Visit: 06/30/2024 (in office), 12/15/2023 (telemedicine) Next Visit: 09/05/2024 If no future appointments scheduled, and last appointment is greater than a year ago, please schedule patient for a follow-up appointment Last date the medication was ordered: various Is this request for a controlled substance?No Urine Drug Screen:No results found. However, due to the size of the patient record, not all encounters were searched. Please check Results Review for a complete set of results. Patient Phone Numbers Labs: Lab Results Component Value Date/Time CREAT 0.69 07/06/2024 12:00 AM CREAT 0.8 08/19/2019 01:40 PM CREAT 0.5 (L) 01/20/1997 05:58 AM POTASSIUM 3.4 (A) 07/06/2024 12:00 AM POTASSIUM 3.5 08/19/2019 01:40 PM POTASSIUM 4.8 01/20/1997 05:58 AM TSH 1.340 10/16/2023 12:00 AM TSH 0.78 07/13/2018 01:49 PM TSH 4.11 01/19/1997 07:04 AM LDL 79 01/15/2022 10:21 AM LDL 148 (H) 03/06/2015 12:54 PM LDLCALC 56 10/16/2023 12:00 AM ALT 12 01/12/2024 12:00 AM ALT 18 08/19/2019 01:40 PM ALT 567 (HH) 01/17/1997 07:05 AM HGBA1C 6.2 (A) 07/06/2024 12:00 AM * Telephone Encounter - Josefa Cantu, pst supervisor - 09/01/2024 9:55 AM EST Did you pend patient's preferred pharmacy and medication before forwarding?yes Pharmacy: [facility] Pending Prescriptions: Disp Refills Promethazine HCl 25 MG Oral Tablet (Phene*40 Tab*1 Sig: Take 1 Tablet by mouth every 6 hours as needed for Nausea. Ondansetron HCl 4 MG Oral Tablet (Zofran) 30 Tab*0 Sig: Take 1 Tablet by mouth 3 times a day as needed for Nausea or Vomiting. Last Visit: 06/30/2024 (in office), 12/15/2023 (telemedicine) Next Visit: 09/05/2024 If no future appointments scheduled, and last appointment is greater than a year ago, please schedule patient for a follow-up appointment Last date the medication was ordered: 08/11/2024,04/29/2024 Is this request for a controlled substance?No Urine Drug Screen:No results found. However, due to the size of the patient record, not all encounters were searched. Please check Results Review for a complete set of results. Patient Phone Numbers Labs: Lab Results Component Value Date/Time CREAT 0.69 07/06/2024 12:00 AM CREAT 0.8 08/19/2019 01:40 PM CREAT 0.5 (L) 01/20/1997 05:58 AM POTASSIUM 3.4 (A) 07/06/2024 12:00 AM POTASSIUM 3.5 08/19/2019 01:40 PM POTASSIUM 4.8 01/20/1997 05:58 AM TSH 1.340 10/16/2023 12:00 AM TSH 0.78 07/13/2018 01:49 PM TSH 4.11 01/19/1997 07:04 AM LDL 79 01/15/2022 10:21 AM LDL 148 (H) 03/06/2015 12:54 PM LDLCALC 56 10/16/2023 12:00 AM ALT 12 01/12/2024 12:00 AM ALT 18 08/19/2019 01:40 PM ALT 567 (HH) 01/17/1997 07:05 AM HGBA1C 6.2 (A) 07/06/2024 12:00 AM documented in this encounter Plan of Treatment Upcoming Encounters Date Type Department Care Team (Late st Contact Info) Description 09/05/2024 8:40 AM EST Office Visit Family Practice [address] [place] [address] [address] [place] [address] Svetlana Nicole DO [address] [place] [address] Arrived 09/21/2024 3:30 PM EST Home Visit Care at Home [address] [place] [address] Karen Lezama PA-C [address] [place] [address] 09/29/2024 2:40 PM EST Office Visit Nephrology, [facility] [address] [place] [address] Blake Becker MD [address] [facility] [place] [address] 12/20/2024 8:30 AM EST Office Visit Cardiology, [facility] [address] [address] Dann Hancock PA-C [address] [place] [address] Health Maintenance Due Date Last Done Comments [...] Additional history exists CKD PHOS USE SMARTSET 89451 02/08/202501/18, 10/16/2023, 01/28/2023, Additional history exists CKD HGB USE SMARTSET 24432 02/25/202502/25, 02/09/2024, 02/09/2024, Additional history exists Diabetic [...] D LEVEL ONCE IN A LIFETIME-USE SMARTSET# 34127 Completed 11/13/2022, 05/07/2006 COVID-19 Vaccine Completed 06/30/2024, [...] this encounter Medical Devices Implanted Type Area Septic Technician Device Identifier Shelf Expiration Date Model / Serial / Lot Dbx 5cc [id number] - [id number] - [id number] Implanted:Qty : 1 on 01/08/2021 by Kuldeep Fisher DO at OR [facility] Tissue - Human Left: Spine Lumbar [employer] [id number] 06/18/2022 [id number] / [id number] / LOT NA Description:[id number] Implant Ifuse 3d 7x55 Mm - [id number] Implanted:Qty : 1 on 01/08/2021 by Kuldeep Fisher DO at OR [facility] Left: Spine Lumbar [employer] 09/05/2024 7055M-90 / / [id number] Implant Ifuse 3d 7x55 Mm - [id number] Implanted:Qty : 1 on 01/08/2021 by Kuldeep Fisher DO OR [facility] Left: Spine Lumbar [employer] 03/29/2024 7055M-90 / / [id number] Ifuse Implant System 7.0 X 50mm Implant Implanted:Qty : 1 on 01/08/2021 by Kuldeep Fisher DO at OR [facility] Left: Spine Lumbar 05/11/2025 7050M-90 / / [id number] Implant Ifuse 3d 7x50 Mm - [id number] Implanted:Qty : 2 on 03/12/2021 by Kuldeep Fisher DO at OR [facility] Right: Pelvis [employer] 09/18/2025 7050M-90 / / [id number] Dbx 2.5cc [id number] - [id number] - [id number] Implanted:Qty : 1 on 03/12/2021 by Kuldeep Fisher DO at OR [facility] Right: Iliac [employer] [id number] 07/20/2022 [id number] / [id number] / LOT NA Implant Ifuse 3d 7x45 Mm - [id number] Implanted:Qty : 1 on 03/12/2021 by Kuldeep Fisher DO at OR [facility] Right: Pelvis [employer] 09/18/2025 7045M- / / [id number] documented as of this encounter Visit Diagnoses Diagnosis Nausea and vomiting, unspecified vomiting type documented in this encounter Advance Directives * [...] Directives occurred with: Not Discussed Care Teams Supervisor Bakery San[employer] Relationship Specialty Start Date End Date Svetlana Nicole DO [address] [facility] [place] [address] PCP - General Family Medicine 03/31/24 documented as of this encounter
--- OUTSIDE RECORDS SUMMARY | 2024-09-09 08:39 | External Medical Summary | Summary of Care ---
Author Name Unknown Organization [facility] Address [address] [place] [address] Phone [phone] Care Team Providers Care Team Leader/Research Psychologist Name Role Phone Svetlana Jacobs DO Primary Care Provider Encounter Details Date Type Department Care Team (Late st Contact Info) Description 08/25/2024 Population Health External Data Unspecified Department Allergies Active Allergy Reactions Criticality Noted Date Comments Adhesive Tape Other (Please comment) Low 07/19/2019 Skin irritation Ibuprofen Bleeding High 09/03/2016 (NSAIDS) Other reaction(s): Bleeding Latex Rash High 01/25/2019 Other reaction(s): Rash Nickel High 12/16/2011 Rash/blisters if care home exposure Other reaction(s): SEVERE DERMATITIS Other reaction(s): CD - Contact dermatitis Nsaids High 07/25/2015 Other reaction(s): HX OF BLEEDING ULCERS-TO AVOID Oxycodone Neuro complications (Please comment) High 02/19/2021 Opioid abuse Other reaction(s): neuro complications opioid abuse-recent overdose 01/2021 documented as of this encounter (statuses as of 09/01/2024) Medications Triamcinolone Acetonide 0.1 % External Cream [...] 12/16/2023 3:02 PM EST 12/15/19 24 Active Nitroglycerin 0.3 MG Sublingual Tablet Sublingual (Nitrostat)Indicat ions:Coronary artery disease involving solomon coronary artery of solomon heart without angina pectoris,Dyslipide vivienne, goal LDL [...] Pain, Moderate. 10 Tablet 04/22/20 24 Active Promethazine HCl 25 MG Oral Tablet (Phenergan)Indicat ions:Nausea and vomiting, unspecified vomiting type Take 1 Tablet by mouth every 6 hours as needed for Nausea. 40 Tablet 1 04/29/20 24 Active Pantoprazole Sodium 40 MG Oral [...] 08/04/2024 7:01 AM EDT 08/02/20 24 Active Ondansetron HCl 4 MG Oral Tablet (Zofran)Indication s:Nausea and vomiting, unspecified vomiting type Take 1 Tablet by mouth 3 times a day as needed for Nausea or Vomiting. 30 Tablet 08/11/20 24 Active Furosemide 20 MG Oral Tablet (Lasix)Indications :Chronic diastolic congestive heart failure (HCC) TAKE TWO TABLETS BY MOUTH EVERY MORNING 200 Tablet 2 08/16/2024 10:17 AM EDT 08/13/20 24 Active documented as of this encounter (statuses as of 09/01/2024) Active Problems Problem Noted Date Diagnosed Date [...] thrombosis) 02/08/2020 Coronary artery disease invo lving solomon coronary artery of solomon heart without angina pectoris 02/08/2020 Failed back [...] as of this encounter (statuses as of 09/01/2024) Resolved Problems Problem Noted Date Diagnosed Date Resolved Date Sacroiliitis 10/22/2021 10/22/2021 Morbid obesity, unspecified obesity type 10/22/2021 10/28/2023 Atrial fibrillation 10/22/2021 10/22/19 22 Opioid abuse 02/19/2021 10/28/2023 Unspecified mood (affective) disorder 08/21/2019 02/07/2020 Prediabetes 02/28/2019 08/02/2020 Overview: Per Prediabetes protocol #1 Encounter for examination fo r normal comparison and control in clinical research program 02/23/2018 05/21/2020 Overview (02/04/2021): DO NOT DELETE [facility] DETECT Study: Project # [id number], Substation Operator Transforming: Yoel Sung, PhD. SUMMARY: Goal: Establish test [...] contact study staff at ; after hours Substation Operator Transforming via the [facility] lollypop machine operator . Please contact study team before resolving/deleting from patients problem list. Study phone number: [phone]. Diagnosis changed due to Research Module. Go to Snapshot for study details. Encounter for examination fo r normal comparison and control in clinical research program 02/23/2018 06/19/2022 Overview (02/04/2021): DO NOT DELETE - [facility] Study: Project # [id number], Substation Operator Transforming: Ranjeet Villa, MS, MPH. SUMMARY: Goal: Establish [...] contact study staff at ; after hours Substation Operator Transforming via the [facility] lollypop machine operator . - Please contact study team before resolving/deleting from patients problem list. Study phone number: [phone]. Diagnosis changed due to Research Module. Go to OM Latam for study details. Preop examination 03/29/2016 09/30/2016 Abnormal electrocardiogram 03/29/2016 1 11/07/2018 MEDICATION USE AGREEMENT 05/03/2015 Overview (05/03/2015): Signed 05/03/2015 Charanjit Spann MD [facility]. Encounter for long-term (cur rent) use of medications 12/31/2011 02/07/2020 Overview (08/11/2017): ICD-10 update of inactive term Postlaminectomy syndrome 12/16/201107/2017 Lumbago 12/16/2011 07/28/2017 Mixed dyslipidemia 10/30/2005 9 Overview (10/04/2009): Per Lipid Taxonomy. documented as of this encounter (statuses as of 09/01/2024) Immunizations Name Administration Dates Next Due COVID-19 mRNA, LNP-s, No Pre serve, 2-Dose Series ([employer]) 08/29/2021,03/06/2021,02/13/2021 COVID-19, LNP-s, No Preserve , Ad-sucrose, Ages 12+ (Pfizer) 02/07/2022 COVID-19, MRNA-LNP, PF, 30 M CG/0.3 mL, 12 YRS AND ABOVE, IM ([employer]) 06/30/2024,12/15/2023 Covid-19, Mrna, Lnp-s, Pf, B ivalent, 30 Mcg, IM, 12 yrs and above ([employer]) 08/01/2022 Pneumococcal Conjugate Vacc, 13 Valent (Prevnar) [...] 06/30/2024 Does the household have a re gular source of income? (Household - for ages [...] Entry Date Author No 03/12/2021 5:05 PM EDT Ramiro Green RN documented in this encounter Plan of Treatment Upcoming Encounters Date Type Department Care Team (Late st Contact Info) Description 09/05/2024 8:40 AM EST Office Visit Family Practice [address] [place] [address] [facility] [place] [address] Svetlana Jacobs DO [address] [place] [address] 09/08/2024 10:45 AM EST Office Visit Dermatology [facility] [address] [facility] [place] [address] Abdelrahman Silva MD [address] [facility] [place] [address] 09/21/2024 3:30 PM EST Home Visit Care at Home [address], [place] [phone] Karen Lezama PA-C [address], [place] [id number] 09/29/2024 2:40 PM EST Office Visit Nephrology, [facility] [address] [facility] [place] [address] Blake Becker MD [address] [facility] [place] [address] 12/20/2024 8:30 AM EST Office Visit Cardiology, [facility] [address] [facility] [place] [address] Dann Hancock PA-C [address] [facility] [place] [address] Health Maintenance Due Date Last Done Comments [...] Additional history exists CKD PHOS USE SMARTSET 44313 02/08/202501/18, 10/16/2023, 01/28/2023, Additional history exists CKD HGB USE SMARTSET 44952 02/25/202502/25, 02/09/2024, 02/09/2024, Additional history exists Diabetic Foot Exam 06/30/2025 06/30/2024, 0 05/26/2023, 08/01/2022, Additional history exists DXA Scan 01/10/2026 01/11/2024, 12/18, 07/30/2021, Additional history exists DTap/Tdap Vaccines (2 - Td or Tdap) 01/23/2026 01/24/2016 Pneumococcal Vaccine: 65+ Years Completed 06/06/2016, 01/26/2013 Zoster Vaccines Completed 06/23/2019, 02/18, 02/23/2018, Additional history exists Colonoscopy Discontinued 08/19/2019, 1110/2018, 07/20/2018, Additional history exists Colorectal Cancer Screening Discontinued VITAMIN D LEVEL ONCE IN A LIFETIME-USE SMARTSET# 78085 Completed 11/13/2022, 05/07/2006 COVID-19 Vaccine Completed 06/30/2024, [...] this encounter Medical Devices Implanted Type Area Construction Helper Device Identifier Shelf Expiration Date Model / Serial / Lot Dbx 5cc [id number] - [id number] - [id number] Implanted:Qty : 1 on 01/08/2021 by Kuldeep Fisher DO at OR [facility] Tissue - Human Left: Spine Lumbar [employer]ND [id number] 06/18/2022 [id number] / [id number] / LOT NA Description:[id number] Implant Ifuse 3d 7x55 Mm - [id number] Implanted:Qty : 1 on 01/08/2021 by Kuldeep Fisher DO at OR [facility] Left: Spine Lumbar [employer] 09/05/2024 7055M-90 / / [id number] Implant Ifuse 3d 7x55 Mm - [id number] Implanted:Qty : 1 on 01/08/2021 by Kuldeep Fisher DO at OR [facility] Left: Spine Lumbar [employer] 03/29/2024 7055M-90 / / [id number] Ifuse Implant System 7.0 X 50mm Implant Implanted:Qty : 1 on 01/08/2021 by Kuldeep Fisher DO OR [facility] Left: Spine Lumbar 05/11/2025 7050M-90 / / [id number] Implant Ifuse 3d 7x50 Mm - [id number] Implanted:Qty : 2 on 03/12/2021 by Kuldeep Fisher DO at OR [facility] Right: Pelvis [employer] 09/18/2025 7050M-90 / / [id number] Dbx 2.5cc [id number] - [id number] - [id number] Implanted:Qty : 1 on 03/12/2021 by Kuldeep Fisher DO at OR [facility] Right: Iliac [employer] [id number] 07/20/2022 [id number] / [id number] / LOT NA Implant Ifuse 3d 7x45 Mm - [id number] Implanted:Qty : 1 on 03/12/2021 by Kuldeep Fisher DO at OR [facility] Right: Pelvis [employer] 09/18/2025 7045M-90 / / [id number] documented as of this encounter Advance Directives * Full Code [...] Directives occurred with: Not Discussed Care Teams Team Leader/Research Psychologist Relationship Specialty Start Date End Date Svetlana Jacobs DO [address] [place] [address] PCP - General Family Medicine 03/31/24 documented as of this encounter
[2024-09-09] MEDS: FUROSEMIDE 40 MG TAB PO SCH (09:27)
[2024-09-09] MEDS: MULTIVITAMIN TAB PO SCH (09:27)
[2024-09-09] MEDS: ASPIRIN 81 MG ECTAB PO SCH (09:27)
[2024-09-09] MEDS: METOPROLOL SUCC 50MG EXT REL TAB PO SCH (09:27)
[2024-09-09] MEDS: APIXABAN 5 MG TABLET PO SCH (09:27)
[2024-09-09] MEDS: ATORVASTATIN 40 MG TAB PO SCH (09:27)
[2024-09-09] MEDS: HEPARIN 100 UNIT/ML 5ML FLUSH FLUSH PRN (09:52)
--- NOTE | 2024-09-09 10:19 | Pharmacy Report ---
Pharmacy Glycemic Short Note 2 - Date of Service September 09, 2024 - Glycemic Short BSG Results (Last 24 hours): 09/08/24 09/08/24 09/08/24 10:47 17:08 18:48 Glucose POC Glucose 109 H 119 H 134 H 09/08/24 09/09/24 09/09/24 23:04 05:40 07:17 Glucose 127 H POC Glucose 154 H 113 H OUTPATIENT ANTIDIABETIC REGIMEN: * Ozempic 2mg Qwk * HbA1c 5.8% (08/22/24) ASSESSMENT: * Ester is a 74 YOF admitted status post total shoulder arthroplasty and a history of diabetes mellitus. Pharmacy has been consulted to assist with glycemic management while inpatient. * Preoperative BSG well controlled, received 8 mg IV dexamethasone preoperatively, controlled with Novolog at a weight based stress of 2. Will consider loosening throughout the day if patient is not discharged. * No basal insulin indicated at this time as fasting BSG within goal range and A1c well controlled outpatient. PLAN FOR INPATIENT GLYCEMIC CONTROL: * Hold outpatient oral diabetes medications * Basal insulin * none * Bolus insulin * NovoLog per scale ACHS or Q6hrs while NPO * Goal Range: Low 110 mg/dL - High 140 mg/dL * Correction Factor: 30 mg/dL/unit * Nutritional / Prandial insulin per carb ratio of 1 unit per 9 grams CHO consumed
[2024-09-09] MEDS: HYDROmorphone INJ 1 MG/ML SYRINGE IV PRN (22:21)
[2024-09-10] MEDS: ONDANSETRON INJ 2 MG/ML 2 ML VIAL IV PRN (07:51)
[2024-09-10] MEDS ORDERED: HYDROmorphone HCL 2 MG TAB PO PRN (10:45)
[2024-09-10] MEDS ORDERED: HYDROmorphone INJ 1 MG/ML SYRINGE IV PRN (10:47)
--- NOTE | 2024-09-10 11:00 | Orthopedic Progress Note ---
Date of Service September 10, 2024 Assessment & Plan (1) Status post reverse total arthroplasty of right shoulder: Postop day 2 from a right reverse total shoulder arthroplasty for rotator cuff arthropathy. Patient back to progress given medical comorbidities and chronic opioid use. -Work with PT/OT for mobilization/ambulation. Less than 5 pounds weight restriction. Can use gently for assistance with ADLs. Do not recommend using for rolling walker. -Continue the use of the sling. Primarily for comfort. May remove while sitting or lying if comfortable. Can loosen for assistance with ADLs. -Range of motion: Full active range of motion to the elbow wrist and digits. Avoid shoulder external rotation and internal rotation behind her back. May have active assisted and gentle forward flexion and abduction to assist with ADLs. -Pain management: Complicated by chronic opioid use. Will transition from oxycodone to oral Dilaudid and encourage this as first-line. Baseline scheduled acetaminophen and another 24 hours of Toradol. Increase breakthrough Dilaudid IV to every 6 hours. Goal of weaning from parenteral meds in the next 24 hours. I reviewed this with the patient. -Dressing can be taken off on postop day 3. This can be done by nursing staff. It should then be covered until she is discharged from the hospital. Dispo: Appreciate PT/OT recommendations. Will likely be discharged home with nursing and visiting therapy. She will need some assistance with ADLs and she with minimal assistance in the area. Appreciate case management assistance. Expect services to be arranged by Thursday or Thursday. Will continue to remain inpatient until pain is managed on oral regimen. Will follow-up hospitalist consult today. (2) Acute hypotension: Seem to be resolved when placed in bed. Certainly could be attributed to acute blood loss anemia from surgery. Will update labs and EKG today. Given her overall condition, previous history, and multiple medical comorbidities, will ask for hospitalist assistance for internal medicine evaluation Subjective Reports that she is having a tough day. Does not feel that well. Pain is been an issue. Block just recently worn off. She says she can feel all of her fi ngers but the thumb is diminished. Has use of her hand. Has not been out of bed yet this morning, but the physical therapist had just arrived. Diet okay. Concerned about going home versus [facility]. I told her that we have to arrange some home services. She does not wish to go to a shelter facility. Nursing called later this morning to alert me that she had some hypotension and syncope when out of bed. Given her heart history and multiple medical comorbidities in the postop setting, will evaluate with labs and EKG and ask internal medicine to see her. Review of Systems All systems reviewed & are unremarkable except as noted in HPI & below. Physical Exam RUE: Full motor and sensation intact to the hand. Noted diminishment in sensation of the thumb but can sense light touch. The dressing is clean and dry and intact. No significant swelling or ecchymosis settling in the arm. Constitutional WD/WN, vitals as above no acute distress and not intoxicated appearing Respiratory normal respiratory effort; no labored breathing Cardiovascular Extremities: normal capillary refill Results & Data Results & Data Laboratory Results H & H 09/09/24 Range/Units 05:40 Hgb 10.7 L (12.0-16.0) g/dl Hct 31.3 L (37.0-47.0) % Diagnostic Findings . PG Care Time/CCT Total # of Minutes Spent Total Time Spent with Patient: Total time spent is greater than 50% in coordination of care (as documented) at patient's floor/unit and/or counseling patient: Coding Level of Care Code 52295 Post Operative Follow-Up Diagnoses Status post reverse total arthroplasty of right shoulder Z96.611 Acute hypotension I95.9
--- NOTE | 2024-09-10 11:32 | Hospitalist Consultation ---
Date of Consultation September 10, 2024 Assessment & Plan (1) Acute hypotension: Right shoulder arthroplasty status post POD #2 Noted to have significant hypotension of systolic blood pressure 78 during PT evaluation today Hypotension could be due to postural drop in blood pressure, dehydration, receiving a pain medications and also any significant blood loss anemia Blood pressure went up to systolic 98 on lying down EKG reviewed and will get troponin and also CBC and chest x-ray before getting any more fluid to increase the blood pressure Will monitor and change the metoprolol dose to 50 mg twice daily (2) Status post reverse total arthroplasty of right shoulder: As above management will be as per Ortho (3) Right rotator cuff tear arthropathy: (4) HOLLY (obstructive sleep apnea): (5) CAD (coronary artery disease): Denies any cardiac symptoms EKG remains unremarkable Will get troponin (6) Diabetes mellitus, type 2: Has been getting sliding scale insulin Blood sugar is around 140s (7) History of pulmonary embolism: Has been on Eliquis (8) Hypertension: History of hypertension and takes metoprolol succinate 100 mg in the morning Will change the doses to 50 mg succinate twice daily (9) Dyslipidemia: Continue statin Plan DVT prophylaxis on Eliquis CODE STATUS Full as documented in the chart History of Present Illness Reason for Consultation: Symptomatic hypotension Requesting Physician: Dr. Rosado Attending Physician: Michael Rosado MD History of Present Illness Is a 74 years old female with significant past medical history of chronic diastolic heart failure, hypertension, hyperlipidemia, CAD, history of DVT on Eliquis, type 2 diabetes, chronic pain bipolar disorder, GERD. Apparently has had left total shoulder arthroplasty on of this month. She was noted to have significant postural hypotension with symptoms during physical therapy t sam[facility]. Her blood pressure was noted to be systolic 70 during the physical therapy with symptoms of dizziness and weakness. She denied any chest pain, shortness of breath or palpitation and she does not have any abdominal pain nausea no vomiting. Her blood pressure went up to more than 90 on lying down and she was still feeling weak and lethargic. She denies any fever and or chills and does not have any evidence of bloody stool or any blood vomiting. She received oxycodone 5 mg at around midnight and Dilaudid 1 mg IV around 730 this morning. She has a total of 2900 mL of positive balance since admission. Her metoprolol has been on hold since this morning. Allergies Allergy/AdvReac Type Severity Reaction Status Date / Time adhesive tape Allergy Intermediate Skin Verified 09/08/24 10:46 irritation latex Allergy Intermediate Rash Verified 09/08/24 10:46 aspirin AdvReac Intermediate Bleeding Verified 09/08/24 10:46 ulcers (full dose ASA) NSAIDS (Non-Steroidal AdvReac Intermediate Hx Verified 09/08/24 10:46 Anti-Inflamma bleeding ulcers (advised to avoid) Home Medications Medication Instructions Recorded Confirmed Type atorvastatin 40 mg tablet (Lipitor) 40 mg PO QAM 12/13/18 09/08/24 History levothyroxine 75 mcg tablet 75 mcg PO QAM 12/13/18 09/08/24 History promethazine 25 mg tablet 25 mg PO Q6H PRN Nausea 05/12/19 09/08/24 History epinephrine 0.3 mg/0.3 mL 0.3 mg IM Q3H PRN Allergic Reaction 05/23/19 09/08/24 History injection syringe nitroglycerin 0.3 mg sublingual 0.3 mg sublingual UD PRN Chest Pain 05/23/19 09/08/24 History tablet (Nitrostat) olopatadine 0.2 % eye drops 1 drp ophthalmic (eye) QAM 05/23/19 09/08/24 History tizanidine 4 mg tablet 4 mg PO BID PRN Muscle Spasm 04/03/20 09/08/24 History trazodone 100 mg tablet 300 mg PO HS 04/03/20 09/08/24 History furosemide 20 mg tablet 40 mg PO QAM 10/05/20 09/08/24 History apixaban 5 mg tablet (Eliquis) 5 mg PO BID 10/11/21 09/08/24 History metoprolol succinate 100 mg 100 mg PO QAM 01/20/23 09/08/24 History tablet,extended release 24 hr semaglutide 2 mg/dose (8 mg/3 mL) 2 mg subcut Q7D 01/20/23 09/08/24 History subcutaneous pen injector (Ozempic) buspirone 10 mg tablet 10 mg PO BID 02/20/23 09/08/24 History ondansetron 4 mg disintegrating 4 mg PO Q6H PRN nausea and 10/26/23 09/08/24 Rx tablet vomiting #10 tabs pantoprazole 40 mg tablet,delayed 40 mg PO BID #60 tabs 12/21/23 09/08/24 Rx release aspirin 81 mg tablet,delayed 81 mg PO QAM #0 tabs 02/19/24 09/08/24 Rx release plecanatide 3 mg tablet (Trulance) 3 mg PO QAM #90 tabs 03/03/24 09/08/24 Rx tramadol 50 mg tablet 50 - 100 mg (1 - 2 x 50 mg) PO Q6 07/14/24 09/08/24 Rx PRN pain #40 tabs oxycodone 5 mg tablet 5 - 10 mg (1 - 2 x 5 mg) PO Q4H 09/01/24 09/08/24 Rx PRN pain #30 tabs Patient History Medical History Anxiety Barretts esophagus on protonix; follows with GI CAD (coronary artery disease) BMS x2 to LAD Cervical spondylosis Chronic heart failure with preserved ejection fraction (HFpEF) Follows with [facility] Chronic pain syndrome Back Cyclic vomiting syndrome hx, no issues in "years" Depression Diabetes NIDDM Dilation of thoracic aorta Echo 01/2024: Aortic root and proximal ascending aorta are normal sized Dyslipidemia History of anemia History of blood transfusion History of colitis History of COVID-19 (~10/2021) treated inpatient at [facility]/Covid PNA > symptoms resolved History of nickel allergy recent allergy testing showed she is not allergic to nickel HTN (hypertension) h/o orthostatic hypotension in 2022; controlled, stable per pt Hx of Clostridium difficile infection (~2016) Remote hx Hx of deep venous thrombosis (~2017) DVT > PE Hx of myocardial infarction (~2016) NSTEMI > BMS x2 to LAD Hx of post-polio syndrome Hx pulmonary embolism (~2017) DVT > PE Hyperlipidemia Hypothyroidism Migraine Hx, no recent issues HOLLY (obstructive sleep apnea) pt denies Osteoarthritis Port-A-Cath in place left chest wall, replacement 04/18/24, power port PTSD (post-traumatic stress disorder) RLS (restless legs syndrome) Scoliosis Surgical History History of anesthesia reaction Awareness with spinal surgery History of back surgery bilateral SI Joint replacements (~2020/[facility] Charli) History of cataract surgery R/L History of colonoscopy History of esophagogastroduodenoscopy (EGD) History of tonsillectomy and adenoidectomy Hx of appendectomy Hx of arthroscopy of shoulder Right shoulder, 01/2023, 06/2023, 10/23/23 ([facility]) Right shoulder arthroscopy, I&D of subacromial hematoma Hx of cardiac cath x2 Hx of dilation and curettage (06/2024) [facility]-- recent rectal and vaginal bleeding due to polyps Hx of heart artery stent BMS x2 Hx of knee surgery right-open meniscus repair Hx of laminectomy and fusion "entire spine is fused(except cervical spine)" [facility] [place] (Dr Catherine) Hx of ovarian cystectomy x2 Hx of spinal surgery Multiple back surgeries S/P hardware removal Removal of all back hardware (~2002) [facility] [place] S/P panniculectomy Family History Mother Hypertension Father Hypertension Other No family history of adverse response to anesthesia Social History Smoking Status: Never smoker Second Hand Exposure: No; Do You Dip or Chew Tobacco: No; Tobacco Cessation Education Requested by Patient: No Hx Alcohol Use: No Hx Substance Use: No Preferred Language: Israeli Communication Ability: Effective Visual Impairment: Limited Hearing Ability: Normal Barrel Lathe Operator Required: No Beliefs That Will Affect Care: None marital status: Current Living Situation: Alone current occupational status: retired How many Children do You have: 2 Other Information That Helps Us Care for You: No Feels Safe at Home: Yes Safety Concerns: Feels Safe At This Time Assistive Devices: Cane and Walker Assistive Devices Comment: upper and lower partial; glasses prn Review of Systems Review of Systems: All systems reviewed and are unremarkable except as noted below Physical Exam Physical Exam: lying in bed without any apparent distress but remains very weak and lethargic Constitutional: well developed, well nourished, + ill appearing and + obese Eyes: PERRL, conjunctivae normal, anicteric sclerae ENMT: external ear and nose normal, oropharynx normal Neck: trachea midline, no thyromegaly Respiratory: no respiratory distress Auscultation: + diminished lung sounds and + crackles ( minimal crackles at the bases) Cardiovascular: Rate/Rhythm: regular rate and regular rhythm; not tachycardic Heart Sounds: normal S1 and normal S2; no murmur Extremities: + edema ( trace edema bilaterally) Gastrointestinal (Abdomen): Inspection/Auscultation: normal bowel sounds; abdomen not distended Percussion/Palpation: abdomen soft; abdomen nontender Musculoskeletal: status post Right shoulder surgery which is in bandages and right upper extremity in sling Neurologic: normal touch/pain/proprioception and moves all extremities; no focal motor deficits Lymphatic: no cervical or axillary lymphadenopathy Results & Data Results & Data Vital Signs (Past 12 Hours) Vital Signs Temp Pulse Resp BP Pulse Ox O2 Del Method O2 Flow Rate 09/10/24 09:13 85 14 110/71 93 Nasal Cannula 4 09/10/24 07:32 37 C 90 16 147/78 H 92 Nasal Cannula 4 Medications Administered Current Inpatient Medications Acetaminophen (Acetaminophen 500 Mg Tab) 1,000 mg PO Q8 COLT Stop: 10/08/24 21:59 Last Admin: 09/10/24 06:06 Dose: 1,000 mg Apixaban (Apixaban 5 Mg Tablet) 5 mg PO BID COLT Stop: 10/09/24 08:59 Last Admin: 09/10/24 09:17 Dose: 5 mg Aspirin (Aspirin 81 Mg Ectab) 81 mg PO QAM COLT Stop: 10/09/24 08:59 Last Admin: 09/10/24 09:17 Dose: 81 mg Atorvastatin Calcium (Atorvastatin 40 Mg Tab) 40 mg PO QAM COLT Stop: 10/09/24 08:59 Last Admin: 09/10/24 09:17 Dose: 40 mg Bisacodyl (Bisacodyl 10 Mg Supp) 10 mg MT DAILY PRN PRN Reason: Constipation Stop: 10/08/24 17:06 Buspirone HCl (Buspirone 5 Mg Tab) 10 mg PO BID COLT Stop: 10/08/24 20:59 Last Admin: 09/10/24 09:17 Dose: 10 mg Dextrose (Dextrose 50% 50 Ml Syringe) 25 - 50 ml IV UD PRN; Protocol PRN Reason: Hypoglycemia Protocol Stop: 10/08/24 18:59 Diphenhydramine HCl (Diphenhydramine Capsule 25 Mg Cap) 25 mg PO Q8H PRN PRN Reason: Itching Stop: 10/08/24 17:06 Docusate Sodium (Docusate Sodium 100 Mg Cap) 100 mg PO BID COLT Stop: 10/08/24 20:59 Last Admin: 09/10/24 07:51 Dose: Not Given Epinephrine HCl (Epinephrine Inj 1 Mg/Ml Amp) 0.3 mg IM Q3H PRN PRN Reason: Allergic Reaction Furosemide (Furosemide 40 Mg Tab) 40 mg PO QAM COLT Stop: 10/09/24 08:59 Last Admin: 09/10/24 09:18 Dose: 40 mg Glucagon (Glucagon For Inj 1 Mg Vial) 1 mg SQ UD PRN; Protocol PRN Reason: Hypoglycemia Protocol Stop: 10/08/24 18:59 Glucose (Glucose 40% Gel 15 Gm Tube) 15 - 30 gm PO UD PRN; Protocol PRN Reason: Hypoglycemia Protocol Stop: 10/08/24 18:59 Glucose (Glucose 10 Tab/Tube) 4 - 8 tab PO UD PRN; Protocol PRN Reason: Hypoglycemia Protocol Stop: 10/08/24 18:59 Heparin Sodium (Porcine) (Heparin 100 Unit/Ml 5ml Flush) 5 ml FLUSH PRN PRN PRN Reason: Flush Stop: 10/09/24 07:04 Last Admin: 09/10/24 03:06 Dose: 5 ml Hydromorphone HCl (Hydromorphone Inj 0.5 Mg/0.5 Ml Syr) 0.5 mg IV Q6H PRN PRN Reason: 4-6 Pain or Pre PT Stop: 09/22/24 17:06 Hydromorphone HCl (Hydromorphone Inj 1 Mg/Ml Syringe) 1 mg IV Q6H PRN PRN Reason: > 6 Pain Stop: 09/22/24 17:06 Hydromorphone HCl (Hydromorphone Hcl 2 Mg Tab) 2 - 4 mg PO Q4H PRN PRN Reason: Pain Stop: 09/24/24 10:44 Insulin Aspart (Insulin Aspart Per Unit Charge) 0 units SC ACHS COLT Stop: 10/08/24 18:59 Last Admin: 09/10/24 08:41 Dose: Not Given Ketorolac Tromethamine (Ketorolac Tromethamine 15 Mg/Ml Vial) 15 mg IV Q6H COLT Stop: 09/15/24 10:59 Levothyroxine Sodium (Levothyroxine Sodium 75 Mcg Tablet) 75 mcg PO DAILYBB [facility] Stop: 10/09/24 06:29 Last Admin: 09/10/24 06:06 Dose: 75 mcg Magnesium Hydroxide (Magnesium Hydroxide Susp 30 Ml Udc) 30 ml PO Q6H PRN PRN Reason: Constipation Stop: 10/08/24 17:06 Metoclopramide HCl (Metoclopramide Hcl Inj 5 Mg/Ml 2 Ml Vial) 10 mg IV Q6H PRN PRN Reason: Nausea And Vomiting Stop: 10/08/24 17:06 Metoprolol Succinate (Metoprolol Succ 50mg Ext Rel Tab) 100 mg PO [facility] Stop: 10/09/24 08:59 Last Admin: 09/10/24 09:18 Dose: Not Given Miscellaneous (Olopatadine~Order Awaiting Action) 1 each N/A QS [facility] Stop: 10/09/24 00:00 Last Admin: 09/10/24 07:50 Dose: Not Given Miscellaneous (Trulance~Order Awaiting Action) 1 each N/A QS [facility] Stop: 10/09/24 00:00 Last Admin: 09/10/24 07:50 Dose: Not Given Miscellaneous (Carbohydrates For Hypoglycemia ) 15 - 30 gm PO UD PRN PRN Reason: Hypoglycemia Treatment Stop: 10/08/24 18:59 Miscellaneous Information (Pharmacy Glycemic Mgmt Consult) 1 each N/A UD PRN PRN Reason: Consult Stop: 10/08/24 17:06 Multivitamins (Multivitamin Tab) 1 tab PO [facility] Stop: 10/09/24 08:59 Last Admin: 09/10/24 09:18 Dose: 1 tab Naloxone HCl (Naloxone Hcl 0.4 Mg/1 Ml Vial/Carp) 0.1 mg IV Q5M PRN PRN Reason: Oversedation/Resp Depression Stop: 10/08/24 17:06 Nitroglycerin (Nitroglycerin Sl 0.4 Mg/Tab Tab) 0.4 mg SL UD PRN PRN Reason: Chest Pain Stop: 10/08/24 17:09 Ondansetron HCl (Ondansetron Inj 2 Mg/Ml 2 Ml Vial) 4 mg IV Q6H PRN PRN Reason: Nausea And Vomiting Stop: 10/08/24 17:06 Last Admin: 09/10/24 07:51 Dose: 4 mg Ondansetron HCl (Ondansetron 4 Mg Od Tab) 4 mg PO Q6H PRN PRN Reason: nausea and vomiting Stop: 10/08/24 17:09 Pantoprazole Sodium (Pantoprazole 40 Mg Tab) 40 mg PO BID [facility] Stop: 10/08/24 20:59 Last Admin: 09/10/24 09:18 Dose: 40 mg Sennosides (Senna 8.6 Mg Tab) 17.2 mg PO HS [facility] Stop: 10/08/24 20:59 Last Admin: 09/09/24 21:14 Dose: 17.2 mg Tizanidine HCl (Tizanidine Hcl 4 Mg Tablet) 4 mg PO BID PRN PRN Reason: Muscle Spasm Stop: 10/08/24 17:09 Trazodone HCl (Trazodone Hcl 100 Mg Tab) 300 mg PO [facility] Stop: 10/08/24 20:59 Last Admin: 09/09/24 21:14 Dose: 300 mg
[2024-09-10 11:39] LABS: Basophils # (auto) 0.02 K/uL (0.00-0.20); Basophils % (auto) 0.2 %; Eosinophils # (auto) 0.05 K/uL (0.00-0.50); Eosinophils % (auto) 0.4 %; Hematocrit (blood only) 30.9 % (37.0-47.0); Hemoglobin 10.3 g/dl (12.0-16.0); Immature Granulocytes # (auto) 0.03 K/uL (0.01-0.20); Immature Granulocytes % (auto) 0.3 %; Lymphocytes # (auto) 0.63 K/uL (1.20-3.40); Lymphocytes % (auto) 5.6 %; Mean Corpuscular Hemoglobin 30.1 pg (25.0-34.0); Mean Corpuscular Hgb Conc 33.3 g/dL (32.0-36.0); Mean Corpuscular Volume 90.4 fL (80.0-100.0); Mean Platelet Volume 9.6 fL (9.4-12.4); Monocytes # (auto) 0.79 K/uL (0.11-0.59); Neutrophils # (auto) 9.78 K/uL (1.40-6.50); Neutrophils % (auto) 86.5 %; Platelet Count 206 K/uL (130-400); RDW Coefficient of Variation 14.6 % (11.5-14.5); RDW Standard Deviation 48.2 fL (36.4-46.3); Red Blood Count 3.42 M/uL (4.20-5.40)
[2024-09-10 11:54] LABS: Albumin Globulin Ratio 1.4 (0.9-2); Albumin Level 3.1 gm/dl (3.4-5.0); BUN Creatinine Ratio 25.9 (10-20); Bilirubin,Total 0.5 mg/dl (0.2-1.0); Calcium 7.9 mg/dl (8.6-10.3); Creatinine Clr Calc Pharmacy 60.2 ml/min; Globulin 2.2 gm/dl (2.5-4.0); Potassium 3.8 mmol/L (3.5-5.1); Total Protein 5.3 gm/dl (6.0-8.3)
[2024-09-10 12:00] LABS: Troponin I High Sensitivity 6.3 pg/ml (0-14)
[2024-09-10] MEDS: KETOROLAC TROMETHAMINE 15 MG/ML VIAL IV SCH (12:03)
[2024-09-10 12:04] LABS: INR 1.4 (0.9-1.1); Prothrombin Time 14.8 Seconds (9.0-12.0)
--- NOTE | 2024-09-10 12:09 | XRay Report ---
XR chest 1V portable CLINICAL HISTORY: ?chf COMPARISON STUDY: Chest CT April 05, 2024. Chest radiograph April 18, 2024. FINDINGS: Right shoulder arthroplasty is incidentally noted. Moderate elevation of the right hemidiap hragm has developed since prior chest radiograph. There is associated right basilar opacity. A left s ubclavian [id number] is in place. Cardiomegaly without evidence for pulmonary edema. IMPRESSION: 1. Moderate elevation of the right hemidiaphragm , as described above. This could represent hemidiaph ragm paresis related to an interscalene block. 2. Right basilar opacity which favors atelectasis. 3. Cardiomegaly. No evidence for pulmonary edema. ACT 112: Negative or not required by law. Electronically signed by: Gonsalo Villafana M.D. 09/10/2024 12:07 PM
[2024-09-10] MEDS: HYDROmorphone HCL 2 MG TAB PO PRN (13:57)
[2024-09-10] MEDS: SODIUM CHLORIDE 0.9% 500 ML IV ONE (13:58)
[2024-09-10] MEDS: METOPROLOL SUCC 50MG EXT REL TAB PO SCH (19:30)
--- NOTE | 2024-09-10 19:39 | Electrocardiogram Report ---
Test Reason : Blood Pressure : */* mmHG Vent. Rate : 77 BPM Atrial Rate : 77 BPM P-R Int : 176 ms QRS Dur : 94 ms QT Int : 392 ms P-R-T Axes : 53 -43 14 degrees QTcB Int : 443 ms Normal sinus rhythm Left axis deviation Low voltage QRS Inferior infarct (cited on or before 26-Sep-2006) Abnormal ECG When compared with ECG of 05-Apr-2024 11:42, No significant change was found Confirmed by Dennis Diana ([id number]) on 09/10/2024 7:38:53 PM Referred By: Michael Rosado Confirmed By: Dennis Diana
[2024-09-10] MEDS: HYDROmorphone INJ 0.5 MG/0.5 ML SYR IV PRN (20:29)
--- NOTE | 2024-09-11 09:34 | Orthopedic Progress Note ---
Date of Service September 11, 2024 Assessment & Plan (1) Status post reverse total arthroplasty of right shoulder: Postop day 3 from right reverse total shoulder arthroplasty for rotator cuff arthropathy. Hospitalist was consulted yesterday due to orthostatic hypotension. Would appreciate assistance from them with discharge. -From an orthopedic standpoint, she is ready for discharge. She does have home physical therapy set up per [facility] knowledge [facility] that is expected to start on Thursday or Thursday. The patient is a little anxious about going home as she has limited help as she does live alone with minimal assistance in the area. She did well with physical therapy today per my observation. -She can be discharged once hospitalist signs off. -She does have chronic opioid use. This is little of a complicating factor in her recovery/discharge. Will discharge her on p.o. Dilaudid. We did have a detailed discussion about this. We discussed her using the Dilaudid for 1 week and then going down to oxycodone. -Her dressing can be changed at today's nursing check. She can have on 4 x 4's and foam tape. Explained to the patient that she can remove these when she is home. Does not need to be covered unless there is drainage or if the irineo are bothersome to her. -She will follow-up with me at a 2-week postop check. We will continue to be in touch with her over the next few days to weeks. Did encourage her to reach out with questions or concerns after her discharge. Please reach out to orthopedics if there are any concerns with her discharge. Subjective Ester is postop day 3 from a right reverse total shoulder arthroplasty. She states that she is doing okay. Yesterday, she was having some orthostatic hypotension. Hospitalist was consulted due to this. At my visit today, physical therapy did come into evaluate her and work with her. She did well with transferring from the bed from sit to standing as well as walking. She was walking with a cane and with some assistance with therapy. She tolerated this w ell without any problems. She is quite anxious to go home. To my understanding, [facility] does have [facility] who is coming in to help her from an outpatient/home PT standpoint. No other questions or concerns at today's visit. Review of Systems All systems reviewed & are unremarkable except as noted in HPI & below. Physical Exam General: Alert and oriented. No acute distress. Right shoulder: Inspection unremarkable. No saturation of the dressing. Dressing can be changed today by nursing staff. She is wearing her sling as appropriate. Neurovascularly intact. I did observe the ambulatory trial with physical therapy. She did quite well. Results & Data Results & Data Laboratory Results . Diagnostic Findings . PG Care Time/CCT Total # of Minutes Spent Total Time Spent with Patient: Total time spent is greater than 50% in coordination of care (as documented) at patient's floor/unit and/or counseling patient: Coding Level of Care Code 20003 Post Operative Follow-Up Diagnoses Status post reverse total arthroplasty of right shoulder Z96.611
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
[2024-09-11] MEDS: CALCIUM 600MG + VIT D 400 IU TAB PO SCH (10:04)
--- NOTE | 2024-09-11 10:09 | Hospitalist Progress Note ---
Date of Service September 11, 2024 Assessment & Plan (1) Acute hypotension: (2) Status post reverse total arthroplasty of right shoulder: (3) Right rotator cuff tear arthropathy: (4) HOLLY (obstructive sleep apnea): (5) CAD (coronary artery disease): (6) Diabetes mellitus, type 2: (7) History of pulmonary embolism: (8) Hypertension: (9) Dyslipidemia: Plan Ms. Lua is a 74 year old female with significant past medical history of chronic diastolic heart failure, hypertension, hyperlipidemia, CAD, history of DVT on Eliquis, type 2 diabetes, chronic pain bipolar disorder, GERD and is now s/p right reverse total shoulder arthroplasty for rotator cuff arthropathy . Medicine consulted due to acute orthostatic hypotension. Orthostatics negative today. Patient lives alone and has HH to start this week per case management. Anemia stable at this time. #Orthostatic hypotension *resolved likely multifactorial iso poor post op intake, received small bolus 09/10, orthostats negative today reports improving appetite minimize narcotics as able #Acute anemia 2.2 post op losses #Right shoulder arthroplasty status post POD #3 hgb 13 preop 08/22, now 10.3 postop and stable Dispo per Ortho patient to go home alone with HH analgesia and follow up per ortho #CAD (coronary artery disease): Denies any cardiac symptoms EKG remains unremarkable trop negative continue home metoprolol xl, furosemide, statin and ASA #Diabetes mellitus, type 2: resume home semaglutide as directed # History of pulmonary embolism: continue apixaban # Hypertension: continue toprol xl # Dyslipidemia: Continue statin Plan DVT prophylaxis on Eliquis Admission and Anticipated Discharge Date Admission Date: September 10, 2024 Subjective NAEO Patient reports mild hesitance for going home, but notes she will have home health Denies any other new concerns. No dizziness or presyncope upon standing Physical Exam Constitutional: WD/WN, vitals as above Respiratory: normal respiratory effort, lungs clear to auscultation Cardiovascular: RRR, no murmur, no edema Musculoskeletal: right arm in immobilizer Results & Data Results & Data Vital Signs (Past 12 Hours) Vital Signs Temp Pulse Resp BP Pulse Ox O2 Del Method O2 Flow Rate 09/11/24 09:02 89 14 131/79 90 Room Air 09/11/24 07:24 36.5 C 62 16 119/79 97 Nasal Cannula 4 09/11/24 03:45 94 Nasal Cannula 4 09/11/24 03:43 131/73 87 L Room Air Laboratory Results Short CBC 09/10/24 Range/Units 11:11 WBC 11.30 H (4.8-10.8) K/ul Hgb 10.3 L (12.0-16.0) g/dl Hct 30.9 L (37.0-47.0) % Plt Count 206 (130-400) K/uL BMP 09/10/24 11:11 Sodium 141 Potassium 3.8 Chloride 109 H Carbon Dioxide 26 BUN 21 Creatinine 0.81 Glucose 134 H Calcium 7.9 L Liver Function 09/10/24 Range/Units 11:11 Total Bilirubin 0.5 (0.2-1.0) mg/dl AST 23 (13-39) U/L ALT 11 (7-52) U/L Alkaline Phosphatase 79 (34-104) U/L Albumin 3.1 L (3.4-5.0) gm/dl Medications Administered Home Medications Medication Instructions Recorded Confirmed Last Taken atorvastatin 40 mg tablet (Lipitor) 40 mg PO QAM 12/13/18 09/08/24 09/07/24 06:0 0 levothyroxine 75 mcg tablet 75 mcg PO QAM 12/13/18 09/08/24 09/08/24 06:00 promethazine 25 mg tablet 25 mg PO Q6H PRN Nausea 05/12/19 09/08/24 11/13/23 epinephrine 0.3 mg/0.3 mL 0.3 mg IM Q3H PRN Allergic Reaction 05/23/19 09/08/24 Unknown injection syringe nitroglycerin 0.3 mg sublingual 0.3 mg sublingual UD PRN Chest Pain 05/23/19 09/08/24 Unknown tablet (Nitrostat) olopatadine 0.2 % eye drops 1 drp ophthalmic (eye) QA 05/23/19 09/08/24 04/17/24 07:00 tizanidine 4 mg tablet 4 mg PO BID PRN Muscle Spasm 04/03/20 09/08/24 09/07/24 20:00 trazodone 100 mg tablet 300 mg PO HS 04/03/20 09/08/24 04/17/24 20:00 furosemide 20 mg tablet 40 mg PO QAM 10/05/20 09/08/24 09/07/24 06:00 apixaban 5 mg tablet (Eliquis) 5 mg PO BID 10/11/21 09/08/24 09/04/24 06:00 metoprolol succinate 100 mg 100 mg PO QAM 01/20/23 09/08/24 09/07/24 06:00 tablet,extended release 24 hr semaglutide 2 mg/dose (8 mg/3 mL) 2 mg subcut Q7D 01/20/23 09/08/24 08/26/24 06:00 subcutaneous pen injector (Ozempic) buspirone 10 mg tablet 10 mg PO BID 02/20/23 09/08/24 09/07/24 06:00 ondansetron 4 mg disintegrating 4 mg PO Q6H PRN nausea and 10/26/23 09/08/24 11/15/23 tablet vomiting #10 tabs pantoprazole 40 mg tablet,delayed 40 mg PO BID #60 tabs 12/21/23 09/08/24 09/08/24 07:00 release aspirin 81 mg tablet,delayed 81 mg PO QAM #0 tabs 02/19/24 09/08/24 09/05/24 0 6:00 release plecanatide 3 mg tablet (Trulance) 3 mg PO QAM #90 tabs 03/03/24 09/08/24 09/07/24 06:00 tramadol 50 mg tablet 50 - 100 mg (1 - 2 x 50 mg) PO Q6 07/14/24 09/08/24 Unknown PRN pain #40 tabs oxycodone 5 mg tablet 5 - 10 mg (1 - 2 x 5 mg) PO Q4H 09/01/24 09/08/24 09/07/24 17:00 PRN pain #30 tabs cefadroxil 500 mg capsule 500 mg PO BID 10 days #20 caps 09/11/24 Unknown hydromorphone 2 mg tablet 2 mg PO Q6H PRN pain #20 tabs 09/11/24 Unknown (Dilaudid) ondansetron 4 mg disintegrating 4 mg PO Q6H PRN nausea and 09/11/24 Unknown tablet vomiting #10 tabs Active Medications Generic Name Dose Route Start Last Admin Trade Name Freq PRN Reason Stop Dose Admin Acetaminophen 1,000 mg 09/08/24 22:00 09/11/24 06:02 Acetaminophen 500 Mg Tab PO 10/08/24 21:59 1,000 mg Q8 COLT Administration Apixaban 5 mg 09/09/24 09:00 09/11/24 09:29 Apixaban 5 Mg Tablet PO 10/09/24 08:59 5 mg BID COLT Administration Aspirin 81 mg 09/09/24 09:00 09/11/24 09:29 Aspirin 81 Mg Ectab PO 10/09/24 08:59 81 mg QAM COLT Administration Atorvastatin Calcium 40 mg 09/09/24 09:00 09/11/24 09:29 Atorvastatin 40 Mg Tab PO 10/09/24 08:59 40 mg QAM COLT Administration Buspirone HCl 10 mg 09/08/24 21:00 09/11/24 09:29 Buspirone 5 Mg Tab PO 10/08/24 20:59 10 mg BID COLT Administration Calcium/Vitamin D 1 tab 09/11/24 09:15 09/11/24 10:04 Calcium 600mg + Vit D 400 Iu Tab PO 10/11/24 09:14 1 tab BID COLT Administration Docusate Sodium 100 mg 09/08/24 21:00 09/11/24 09:33 Docusate Sodium 100 Mg Cap PO 10/08/24 20:59 Not Given BID COLT Furosemide 40 mg 09/09/24 09:00 09/11/24 09:30 Furosemide 40 Mg Tab PO 10/09/24 08:59 40 mg QAM COLT Administration Heparin Sodium (Porcine) 5 ml 09/09/24 07:05 09/10/24 03:06 Heparin 100 Unit/Ml 5ml Flush FLUSH 10/09/24 07:04 5 ml PRN PRN Administration Flush Hydromorphone HCl 0.5 mg 09/10/24 10:47 09/11/24 10:05 Hydromorphone Inj 0.5 Mg/0.5 Ml Syr IV 09/22/24 17:06 0.5 mg Q6H PRN Administration 4-6 Pain or Pre PT Hydromorphone HCl 2 - 4 mg 09/10/24 10:49 09/10/24 17:50 Hydromorphone Hcl 2 Mg Tab PO 09/24/24 10:44 2 mg Q4H PRN Administration Pain Insulin Aspart 0 units 09/08/24 19:00 09/11/24 08:04 Insulin Aspart Per Unit Charge SC 10/08/24 18:59 Not Given ACHS COLT Ketorolac Tromethamine 15 mg 09/10/24 11:00 09/11/24 10:58 Ketorolac Tromethamine 15 Mg/Ml Vial IV 09/15/24 10:59 15 mg Q6H COLT Administration Levothyroxine Sodium 75 mcg 09/09/24 06:30 09/11/24 06:02 Levothyroxine Sodium 75 Mcg Tablet PO 10/09/24 06:29 75 mcg DAILYBB COLT Administration Metoprolol Succinate 50 mg 09/10/24 21:00 09/11/24 09:30 Metoprolol Succ 50mg Ext Rel Tab PO 10/10/24 20:59 50 mg BID COLT Administration Miscellaneous 1 each 09/09/24 00:00 09/11/24 08:05 Olopatadine~Order Awaiting Action N/A 10/09/24 00:00 Not Given QS COLT Miscellaneous 1 each 09/09/24 00:00 09/11/24 08:05 Trulance~Order Awaiting Action N/A 10/09/24 00:00 Not Given QS COLT Multivitamins 1 tab 09/09/24 09:00 09/11/24 09:30 Multivitamin Tab PO 10/09/24 08:59 1 tab QAM COLT Administration Ondansetron HCl 4 mg 09/08/24 17:07 09/10/24 07:51 Ondansetron Inj 2 Mg/Ml 2 Ml Vial IV 10/08/24 17:06 4 mg Q6H PRN Administration Nausea And Vomiting Pantoprazole Sodium 40 mg 09/08/24 21:00 09/11/24 09:30 Pantoprazole 40 Mg Tab PO 10/08/24 20:59 40 mg BID COLT Administration Sennosides 17.2 mg 09/08/24 21:00 09/10/24 20:17 Senna 8.6 Mg Tab PO 10/08/24 20:59 Not Given HS COLT Trazodone HCl 300 mg 09/08/24 21:00 09/10/24 20:29 Trazodone Hcl 100 Mg Tab PO 10/08/24 20:59 300 mg HS COLT Administration
[2024-09-11 15:24] VITALS: RESP 18
[2024-09-11 20:18] VITALS: O2SAT 92
[2024-09-12 07:26] VITALS: BP 146/85; PULSE 63; TEMP 97.7
--- NOTE | 2024-09-12 08:31 | Orthopedic Progress Note ---
Date of Service September 12, 2024 Assessment & Plan (1) Status post reverse total arthroplasty of right shoulder: Postop day 4 from right reverse total shoulder arthroplasty for rotator cuff arthropathy. - no new issues - plan for home today with services. Subjective Pain is improving. Getting to bathroom on own. No new issues Review of Systems All systems reviewed & are unremarkable except as noted in HPI & below. Physical Exam RUE: wound exposed. clean, dry and intact. DNVI. Constitutional WD/WN, vitals as above no acute distress and not intoxicated appearing Respiratory normal respiratory effort; no labored breathing Cardiovascular Extremities: normal capillary refill Results & Data Results & Data Laboratory Results H & H 09/09/24 09/10/24 Range/Units 05:40 11:11 Hgb 10.7 L 10.3 L (12.0-16.0) g/dl Hct 31.3 L 30.9 L (37.0-47.0) % Coagulation 09/10/24 Range/Units 11:11 INR 1.4 H (0.9-1.1) Diagnostic Findings . PG Care Time/CCT Total # of Minutes Spent Total Time Spent with Patient: Total time spent is greater than 50% in coordination of care (as documented) at patient's floor/unit and/or counseling patient: Coding Level of Care Code 26704 Post Operative Follow-Up Diagnoses Status post reverse total arthroplasty of right shoulder Z96.611
--- NOTE | 2024-09-12 10:22 | Hospitalist Progress Note ---
Date of Service September 12, 2024 Assessment & Plan (1) Acute hypotension: (2) Status post reverse total arthroplasty of right shoulder: (3) Right rotator cuff tear arthropathy: (4) HOLLY (obstructive sleep apnea): (5) CAD (coronary artery disease): (6) Diabetes mellitus, type 2: (7) History of pulmonary embolism: (8) Hypertension: (9) Dyslipidemia: Plan Ms. Lua is a 74 year old female with significant past medical history of chronic diastolic heart failure, hypertension, hyperlipidemia, CAD, history of DVT on Eliquis, type 2 diabetes, chronic pain bipolar disorder, GERD and is now s/p right reverse total shoulder arthroplasty for rotator cuff arthropathy . Medicine consulted due to acute orthostatic hypotension. Patient doing well today. Patient underwent two step and requires O2 at this time. CXR notes right hemidiaphragm elevation and atelectasis. Patient encouraged to continue IS Patient lives alone and has HH to start this week per case management. Anemia stable at this time. #Acute resp insufficiency #Right hemidiaphragm #Atelectasis 2 step with 2L continuous at this time IS encouraged Home O2 coordinated PCP follow up coordinated #Orthostatic hypotension *resolved likely multifactorial iso poor post op intake, received small bolus 09/10, ortho stats negative today reports improving appetite minimize narcotics as able #Acute anemia 2.2 post op losses *stable #Right shoulder arthroplasty status post POD #3 hgb 13 preop 08/22, now 10.3 postop and stable Dispo per Ortho patient to go home alone with HH analgesia and follow up per ortho #CAD (coronary artery disease): Denies any cardiac symptoms EKG remains unremarkable trop negative continue home metoprolol xl, furosemide, statin and ASA #Diabetes mellitus, type 2: resume home semaglutide as directed # History of pulmonary embolism: continue apixaban # Hypertension: continue toprol xl # Dyslipidemia: Continue statin Plan DVT prophylaxis on Eliquis Admission and Anticipated Discharge Date Admission Date: September 10, 2024 Subjective NAEO Reports feeling ok today. Was unable to get a ride day prior coorindated and not safe for an uber Denies any uncontolled pain, chets pain or other acute concerns at this time Physical Exam Constitutional: WD/WN, vitals as above Respiratory: normal respiratory effort, lungs clear to auscultation Cardiovascular: RRR, no murmur, no edema Gastrointestinal (Abdomen): normal bowel sounds, soft, nontender, no hepatosplenomegaly Results & Data Results & Data Vital Signs (Past 12 Hours) Vital Signs Temp Pulse Resp BP Pulse Ox O2 Del Method O2 Flow Rate 09/12/24 07:40 Nasal Cannula 2 09/12/24 07:25 36.5 C 63 18 146/85 H 92 Nasal Cannula Medications Administered Home Medications Medication Instructions Recorded Confirmed Last Taken atorvastatin 40 mg tablet (Lipitor) 40 mg PO QAM 12/13/18 09/08/24 09/07/24 06:00 levothyroxine 75 mcg tablet 75 mcg PO QAM 12/13/18 09/08/24 09/08/24 06:00 promethazine 25 mg tablet 25 mg PO Q6H PRN Nausea 05/12/19 09/08/24 11/13/23 epinephrine 0.3 mg/0.3 mL 0.3 mg IM Q3H PRN Allergic Reaction 05/23/19 09/08/24 Unknown injection syringe nitroglycerin 0.3 mg sublingual 0.3 mg sublingual UD PRN Chest Pain 05/23/19 09/08/24 Unknown tablet (Nitrostat) olopatadine 0.2 % eye drops 1 drp ophthalmic (eye) QAM 05/23/19 09/08/24 04/17/24 07:00 tizanidine 4 mg tablet 4 mg PO BID PRN Muscle Spasm 04/03/20 09/08/24 09/07/24 20:00 trazodone 100 mg tablet 300 mg PO HS 04/03/20 09/08/24 04/17/24 20:00 furosemide 20 mg tablet 40 mg PO QAM 10/05/20 09/08/24 09/07/24 06:00 apixaban 5 mg tablet (Eliquis) 5 mg PO BID 10/11/21 09/08/24 09/04/24 06:00 metoprolol succinate 100 mg 100 mg PO QAM 01/20/23 09/08/24 09/07/24 06:00 tablet,extended release 24 hr semaglutide 2 mg/dose (8 mg/3 mL) 2 mg subcut Q7D 01/20/23 09/08/24 08/26/24 06:00 subcutaneous pen injector (Ozempic) buspirone 10 mg tablet 10 mg PO BID 02/20/23 09/08/24 09/07/24 06:00 ondansetron 4 mg disintegrating 4 mg PO Q6H PRN nausea and 10/26/23 09/08/24 11/15/23 tablet vomiting #10 tabs pantoprazole 40 mg tablet,delayed 40 mg PO BID #60 tabs 12/21/23 09/08/24 09/08/24 07:00 release aspirin 81 mg tablet,delayed 81 mg PO QAM #0 tabs 02/19/24 09/08/24 09/05/24 06:00 release plecanatide 3 mg tablet (Trulance) 3 mg PO QAM #90 tabs 03/03/24 09/08/24 09/07/24 06:00 tramadol 50 mg tablet 50 - 100 mg (1 - 2 x 50 mg) PO Q6 07/14/24 09/08/24 Unknown PRN pain #40 tabs oxycodone 5 mg tablet 5 - 10 mg (1 - 2 x 5 mg) PO Q4H 09/01/24 09/08/24 09/07/24 17:00 PRN pain #30 tabs cefadroxil 500 mg capsule 500 mg PO BID 10 days #20 caps 09/11/24 Unknown hydromorphone 2 mg tablet 2 mg PO Q6H PRN pain #20 tabs 09/11/24 Unknown (Dilaudid) ondansetron 4 mg disintegrating 4 mg PO Q6H PRN nausea and 09/11/24 Unknown tablet vomiting #10 tabs Active Medications Generic Name Dose Route Start Last Admin Trade Name Freq PRN Reason Stop Dose Admin Acetaminophen 1,000 mg 09/08/24 22:00 09/12/24 05:35 Acetaminophen 500 Mg Tab PO 10/08/24 21:59 1,000 mg Q8 COLT Administration Apixaban 5 mg 09/09/24 09:00 09/12/24 10:14 Apixaban 5 Mg Tablet PO 10/09/24 08:59 5 mg BID COLT Administration Aspirin 81 mg 09/09/24 09:00 09/12/24 08:31 Aspirin 81 Mg Ectab PO 10/09/24 08:59 81 mg QAM COLT Administration Atorvastatin Calcium 40 mg 09/09/24 09:00 09/12/24 08:32 Atorvastatin 40 Mg Tab PO 10/09/24 08:59 40 mg QAM COLT Administration Buspirone HCl 10 mg 09/08/24 21:00 09/12/24 08:32 Buspirone 5 Mg Tab PO 10/08/24 20:59 10 mg BID COLT Administration Calcium/Vitamin D 1 tab 09/11/24 09:15 09/12/24 08:32 Calcium 600mg + Vit D 400 Iu Tab PO 10/11/24 09:14 1 tab BID COLT Administration Docusate Sodium 100 mg 09/08/24 21:00 09/12/24 08:32 Docusate Sodium 100 Mg Cap PO 10/08/24 20:59 Not Given BID COLT Furosemide 40 mg 09/09/24 09:00 09/12/24 08:32 Furosemide 40 Mg Tab PO 10/09/24 08:59 40 mg QAM COLT Administration Heparin Sodium (Porcine) 5 ml 09/09/24 07:05 09/12/24 08:40 Heparin 100 Unit/Ml 5ml Flush FLUSH 10/09/24 07:04 5 ml PRN PRN Administration Flush Hydromorphone HCl 0.5 mg 09/10/24 10:47 09/12/24 08:30 Hydromorphone Inj 0.5 Mg/0.5 Ml Syr IV 09/22/24 17:06 0.5 mg Q6H PRN Administration 4-6 Pain or Pre PT Hydromorphone HCl 2 - 4 mg 09/10/24 10:49 09/11/24 22:13 Hydromorphone Hcl 2 Mg Tab PO 09/24/24 10:44 2 mg Q4H PRN Administration Pain Insulin Aspart 0 units 09/08/24 19:00 09/12/24 08:27 Insulin Aspart Per Unit Charge SC 10/08/24 18:59 Not Given ACHS COLT Ketorolac Tromethamine 15 mg 09/10/24 11:00 09/12/24 05:36 Ketorolac Tromethamine 15 Mg/Ml Vial IV 09/15/24 10:59 15 mg Q6H COLT Administration Levothyroxine Sodium 75 mcg 09/09/24 06:30 09/12/24 05:36 Levothyroxine Sodium 75 Mcg Tablet PO 10/09/24 06:29 75 mcg DAILYBB COLT Administration Metoprolol Succinate 50 mg 09/10/24 21:00 09/12/24 08:33 Metoprolol Succ 50mg Ext Rel Tab PO 10/10/24 20:59 50 mg BID COLT Administration Miscellaneous 1 each 09/09/24 00:00 09/12/24 08:29 Olopatadine~Order Awaiting Action N/A 10/09/24 00:00 Not Given QS COLT Miscellaneous 1 each 09/09/24 00:00 09/12/24 08:29 Trulance~Order Awaiting Action N/A 10/09/24 00:00 Not Given QS COLT Multivitamins 1 tab 09/09/24 09:00 09/12/24 08:33 Multivitamin Tab PO 10/09/24 08:59 1 tab QAM COLT Administration Ondansetron HCl 4 mg 09/08/24 17:07 09/10/24 07:51 Ondansetron Inj 2 Mg/Ml 2 Ml Vial IV 10/08/24 17:06 4 mg Q6H PRN Administration Nausea And Vomiting Pantoprazole Sodium 40 mg 09/08/24 21:00 09/12/24 08:33 Pantoprazole 40 Mg Tab PO 10/08/24 20:59 40 mg BID COLT Administration Sennosides 17.2 mg 09/08/24 21:00 09/11/24 20:35 Senna 8.6 Mg Tab PO 10/08/24 20:59 Not Given HS COLT Trazodone HCl 300 mg 09/08/24 21:00 09/11/24 20:44 Trazodone Hcl 100 Mg Tab PO 10/08/24 20:59 300 mg HS COLT Administration
== END 2024-09-12 13:36 | disposition home health service (06) | DRG 483 ==
LOC: ASU 09:29 → 3E 17:07 → INTOOBSV 17:07

== ENCOUNTER 2025-05-18 11:40 | Inpatient (IN) ==
[2025-05-18 12:50] LABS: Appearance Urine Clear (Clear); Bacteria Urine Automated None Seen (None Seen); Cast Urine Automated 0-2 /lpf (0-2); Epithelial Cell Urine Auto 0-2 /hpf (0-2); Glucose Urine UA Negative (Negative); Hematocrit (blood only) 39.1 % (37.0-47.0); Hemoglobin 13.2 g/dl (12.0-16.0); Immature Granulocytes # (auto) 0.01 K/uL (0.01-0.20); Immature Granulocytes % (auto) 0.1 %; Mean Corpuscular Hemoglobin 29.2 pg (25.0-34.0); Mean Corpuscular Volume 86.5 fL (80.0-100.0); Platelet Count 274 K/uL (130-400); RBC Urine Automated 0-2 /hpf (0-2); RDW Standard Deviation 46.5 fL (36.4-46.3); Red Blood Count 4.52 M/uL (4.20-5.40); WBC Urine Automated 0-5 /hpf (0-5); White Blood Count 8.36 K/ul (4.8-10.8)
[2025-05-18 13:06] LABS: Alanine Aminotransferase 18 U/L (7-52); Albumin Globulin Ratio 1.4 (0.9-2); Alkaline Phosphatase 107 U/L (34-104); Anion Gap 9 (3-11); Bilirubin,Total 0.6 mg/dl (0.2-1.0); Blood Urea Nitrogen 14 mg/dl (6-23); Calcium 9.4 mg/dl (8.6-10.3); Carbon Dioxide 26 mmol/L (21-32); Chloride 104 mmol/L (98-107); Globulin 3.0 gm/dl (2.5-4.0); Glucose 108 mg/dl (70-99(Fasting)); Potassium 3.8 mmol/L (3.5-5.1); Sodium 139 mmol/L (136-145); Total Protein 7.3 gm/dl (6.0-8.3)
--- NOTE | 2025-05-18 13:39 | Emergency Department Note ---
History of Present Illness General Chief complaint: Dehydration Stated complaint: DEHYDRATION, UTI, SEVERE PAIN IN HEAD Time Seen by Provider: 05/18/25 13:31 History of Present Illness Maximum Pain Intensity: 8 This is a 75-year-old female with an extensive past medical history that presents to the emergency department via private vehicle referred by physician at [facility] with complaints of "dehydration, UTI, left head pain". The patient notes that last evening she began with left-sided headache as well as urinary frequency. She denies any trauma or injury. She has associated nausea. No vomiting. No fevers or chills. Patient denies taking any pain medicine today. Patient is anticoagulated, noting oral Eliquis plus antiplatelet aspirin. The patient denies any current antibiotic use. Current pain 05/28. No abdominal pain or back pain. No chest pain or shortness of breath. Home Medications Medication Instructions Recorded Confirmed Type atorvastatin 40 mg tablet (Lipitor) 40 mg PO QAM 12/13/18 05/18/25 History levothyroxine 75 mcg tablet 75 mcg PO DAILYBB 12/13/18 05/18/25 History promethazine 25 mg tablet 25 mg PO Q6H PRN Nausea 05/12/19 05/18/25 History nitroglycerin 0.3 mg sublingual 0.3 mg sublingual DIRECTED PRN 05/23/19 05/18/25 History tablet (Nitrostat) Chest Pain olopatadine 0.2 % eye drops 0 drp ophthalmic (eye) QAM 05/23/19 05/18/25 History tizanidine 4 mg tablet 4 mg PO BID PRN Muscle Spasm 04/03/20 05/18/25 History furosemide 20 mg tablet 40 mg PO QAM 10/05/20 05/18/25 History apixaban 5 mg tablet (Eliquis) 5 mg PO BID 10/11/21 05/18/25 History metoprolol succinate 100 mg 100 mg PO QAM 01/20/23 05/18/25 History tablet,extended release 24 hr semaglutide 2 mg/dose (8 mg/3 mL) 2 mg subcut WK 01/20/23 05/18/25 History subcutaneous pen injector (Ozempic) buspirone 10 mg tablet 10 mg PO BID 02/20/23 05/18/25 History ondansetron 4 mg disintegrating 4 mg PO Q6H PRN nausea and 01/08/24 07/31/25 Rx tablet vomiting #10 tabs pantoprazole 40 mg tablet,delayed 40 mg PO BID #60 tabs 12/21/23 05/18/25 Rx release aspirin 81 mg tablet,delayed 81 mg PO QAM #0 tabs 02/19/24 05/18/25 Rx release trazodone 150 mg tablet 300 mg PO HS 12/28/24 05/18/25 History oxycodone 5 mg tablet 5 mg PO TID PRN pain #30 tabs 01/06/25 05/18/25 Rx epinephrine 0.3 mg/0.3 mL 0.3 mg IM DIRECTED PRN Allergic 03/31/25 05/18/25 History injection, auto-injector (EpiPen) Reaction lidocaine 5 % topical patch 1 patch transdermal HS #30 ea 04/06/25 05/18/25 Rx potassium chloride 10 mEq 10 meq PO DAILY 05/18/25 05/18/25 History tablet,extended release(part/cryst) Allergies Allergy/AdvReac Type Severity Reaction Status Date / Time adhesive tape Allergy Intermediate Skin Verified 04/25/25 09:45 irritation latex Allergy Intermediate Rash Verified 04/25/25 09:45 aspirin AdvReac Intermediate Bleeding Verified 04/25/25 09:45 ulcers (full dose ASA) NSAIDS (Non-Steroidal AdvReac Intermediate Hx Verified 04/25/25 09:45 Anti-Inflamma bleeding ulcers (advised to avoid) Past Med/Surg History Problem List (Updated 05/19/25 @ 00:05 by Juancarlos Lorenzo PA-C) UTI symptoms (Acute) Headache (Acute) Acute migraine Failure of outpatient treatment (Acute) Cervical disc disease (Acute) Right shoulder pain (Acute) Cervical radiculopathy Chronic pain after musculoskeletal injury Acute hypotension Status post reverse total arthroplasty of right shoulder History of nickel allergy Right rotator cuff tear arthropathy Chronic right shoulder pain Proctocolitis (Acute) 02/16/24 Postmenopausal bleeding 02/14/24 Right shoulder pain History of arthroscopy of right shoulder 10/23/23 ([facility]) Right shoulder arthroscopy, I&D of subacromial hematoma Encounter for pre-operative examination History of arthroscopy of right shoulder rt shoulder, 06/2023 Dilation of thoracic aorta mild per cardio; monitoring HOLLY (obstructive sleep apnea) noncompliant with CPAP per cardio note History of post-polio syndrome Orthostatic hypotension 07/02/23 Dysfunction of right rotator cuff History of rotator cuff surgery Barretts esophagus on protonix; follows with GI Peroneus brevis tendinitis Hypomagnesemia (Acute) 04/16/23 History of pulmonary embolism Non-specific colitis 04/06/23 S/P right rotator cuff repair Diabetes mellitus, type 2 06/26/23 Ha1c: 5.8% Constipation 01/14/23 Rotator cuff tear Rotator cuff tendinitis DVT (deep venous thrombosis) (Acute) Migraine (Acute) Generalized weakness (Acute) 04/11/20 Ambulatory dysfunction Chronic pain (Chronic) History of vascular access device (Chronic) Left upper chest port (*not a power port*) Mood disorder (Chronic) CAD (coronary artery disease) 2 BMS to LAD (2017) History of anesthesia reaction (Chronic) Awareness with spinal surgeries Ovarian cyst (Chronic) X 2 Degenerative disc disease (Chronic) History of laminectomy (Chronic) and fusion "entire spine is fused(except cervical spine)" [facility] (Dr Catherine) 1989' Fusion of spine (Chronic) LUMBAR Osteoarthritis (Chronic) History of appendectomy (Chronic) Colitis (Chronic) 02/15/24 Anemia (Chronic) History of tonsillectomy (Chronic) History of adenoidectomy (Chronic) Post traumatic stress disorder (Chronic) Depression Restless leg syndrome (Chronic) Migraine (Chronic) Hx, no recent issues Deep vein thrombosis (Chronic) ~2014, unknown cause Pulmonary embolism (Chronic) ~2014 (UNSURE OF REASON) History of heart artery stent (Chronic) 2017-x2 STENTS PLACED AT [facility] (DR. DAVILA) Myocardial Infarction (Chronic) NSTEMI 2016; s/p 2 BMS to LAD Hypertension H/O ovarian cystectomy (Chronic) x2 H/O repair of right rotator cuff (Chronic) H/O spinal fusion (Chronic) Multiple Dyslipidemia (Chronic) Cervical spondylolysis (Chronic) Scoliosis (Chronic) Medical History History of blood transfusion Osteoarthritis History of colitis Migraine Hx, no recent issues HTN (hypertension) h/o orthostatic hypotension in 2022; controlled, stable per pt Port-A-Cath in place left chest wall, replacement 04/18/24, power port Dyslipidemia Depression Cervical spondylosis no ROM limits Barretts esophagus on protonix; follows with GI History of nickel allergy recent allergy testing showed she is not allergic to nickel Diabetes NIDDM History of anemia PTSD (post-traumatic stress disorder) RLS (restless legs syndrome) Hx of myocardial infarction (~2016) NSTEMI > BMS x2 to LAD Scoliosis CAD (coronary artery disease) BMS x2 to LAD Hx of post-polio syndrome HOLLY (obstructive sleep apnea) pt denies Dilation of thoracic aorta Echo 01/2024: Aortic root and proximal ascending aorta are normal sized Hx of deep venous thrombosis (~2017) DVT > PE Hx pulmonary embolism (~2017) DVT > PE Chronic pain syndrome Back Cyclic vomiting syndrome hx, no issues in "years" Hx of Clostridium difficile infection (~2016) Remote hx History of COVID-19 (~10/2021) treated inpatient at [facility]/Covid PNA > symptoms resolved Chronic heart failure with preserved ejection fraction (HFpEF) Follows with [facility] cardio Hypothyroidism Anxiety Hyperlipidemia duplicate Surgical History History of reverse total replacement of right shoulder joint 09/07/24, [facility] Hx of laminectomy and fusion "entire spine is fused(except cervical spine)" [facility] (Dr Catherine) 1989' Hx of dilation and curettage (06/2024) [facility]-- recent rectal and vaginal bleeding due to polyps Hx of knee surgery right-open meniscus repair History of anesthesia reaction Awareness with spinal surgery History of cataract surgery R/L S/P panniculectomy Hx of appendectomy History of tonsillectomy and adenoidectomy Hx of ovarian cystectomy x2 Hx of heart artery stent 2017- BMS x2 Hx of cardiac cath 2017- BMS x2 Hx of arthroscopy of shoulder Right shoulder, 01/2023, 06/2023, 10/23/23 ([facility]) Right shoulder arthroscopy, I&D of subacromial hematoma Hx of spinal surgery Multiple back surgeries History of colonoscopy History of esophagogastroduodenoscopy (EGD) History of back surgery bilateral SI Joint replacements (~2020/[facility]) S/P hardware removal Removal of all back hardware (~2002) [facility] Family History Mother Hypertension Father Hypertension Other No family history of adverse response to anesthesia Social History Smoking Status: Never smoker Second Hand Exposure: No; Do You Dip or Chew Tobacco: No; Hx Alcohol Use: No Hx Substance Use: No Preferred Language: Kyrgyz Communication Ability: Effective Visual Impairment: Limited Hearing Ability: Normal Drug Purchaser Required: No Beliefs That Will Affect Care: None marital status: Current Living Situation: Alone current occupational status: retired How many Children do You have: 2 Feels Safe at Home: Yes Assistive Devices: Walker Review of Systems A total of 10 systems reviewed and were otherwise negative Physical Exam Vital Signs Vital Signs - 24 hr 05/18/25 11:46 05/18/25 15:20 05/18/25 16:10 Temperature 37.4 C Temperature Source Skin Pulse Rate 89 Pulse Rate [Apical] 62 Respiratory Rate 19 18 Respiratory Effort / Characteristics Non-Labored Non-Labored Spontaneous Respiratory Depth Normal Normal Respiratory Pattern Regular Blood Pressure 120/85 Blood Pressure [Right Arm] 119/74 Blood Pressure Mean 96 Blood Pressure Mean [Right Arm] 89 Pulse Oximetry 96 94 Oxygen Delivery Method Room Air Room Air Room Air Sepsis Recent Fever Within 48 Hours No Sepsis New/Unexplained Change in Mental Status No Sepsis Action Taken by Nursing No Action Required VITAL SIGNS - Vital signs and nursing notes were reviewed. Stable and afebrile. GENERAL -75-year-old female appearing her stated age who is in no acute distress. Communicates well with provider and answers questions appropriately. SKIN - Without rashes. No meningeal or petechial rash. No herpetic lesions. HEAD - NC/AT. EYES - PERRL with EOMI bilaterally. Sclera anicteric. EARS - No deformities of external structures noted on gross examination bilaterally. NOSE - Midline and without cyanosis. No epistaxis or purulent drainage noted. MOUTH/OROPHARYNX - Without perioral cyanosis. NECK - Neck with FROM. No nuchal rigidity. LUNGS - CTA CARDIAC - RRR ABDOMEN - Abdominal contour normal without pulsations or visible masses. BS normoactive all four quadrants. No tenderness, palpable masses, hepatosplenomegaly, or ascites noted. EXTREMITIES - No clubbing or peripheral cyanosis. +5/5 strength noted in UE/LE bilaterally. NEUROLOGIC - Cranial nerves II through XII grossly intact. PSYCH - alert, oriented and pleasant on exam Course Administered Medications Buspirone HCl (Buspirone 5 Mg Tab) 10 mg PO BID COLT Stop: 06/17/25 20:59 Last Admin: 05/18/25 21:05 Dose: 10 mg Documented By: LARA Ceftriaxone Sodium (Rocephin) 2,000 mg in 50 mls @ 100 mls/hr IV Q24H COLT Stop: 05/20/25 17:29 Last Infusion: 05/18/25 18:34 Dose: Infused Documented By: Admin: 05/18/25 17:45 Dose: 100 mls/hr Documented By: CYDNEY Sodium Chloride (Nss) 1,000 mls @ 80 mls/hr IV .[id number] COLT Stop: 05/21/25 17:29 Last Admin: 05/18/25 17:45 Dose: 80 mls/hr Documented By: CYDNEY Lidocaine (Lidocaine 5% 1 Patch) 1 patch TD HS COLT Stop: 06/17/25 20:59 Last Admin: 05/18/25 21:06 Dose: Not Given Documented By: LARA Miscellaneous (Remove Lidoderm Patch) 1 each N/A DAILY@2100 COLT Stop: 06/17/25 20:59 Last Admin: 05/18/25 21:38 Dose: Not Given Documented By: LARA Ondansetron HCl (Ondansetron 4 Mg Od Tab) 4 mg PO Q6H PRN PRN Reason: nausea and vomiting Stop: 06/17/25 19:13 Last Admin: 05/18/25 21:46 Dose: 4 mg Documented By: NATAN Oxycodone HCl (Oxycodone Hcl Ir 5 Mg Tab (Immediate Release)) 5 mg PO Q8H PRN PRN Reason: Pain Stop: 06/01/25 17:28 Last Admin: 05/18/25 21:46 Dose: 5 mg Documented By: NATAN Pantoprazole Sodium (Pantoprazole 40 Mg Tab) 40 mg PO BID COLT Stop: 06/17/25 20:59 Last Admin: 05/18/25 21:03 Dose: 40 mg Documented By: LARA Trazodone HCl (Trazodone Hcl 100 Mg Tab) 300 mg PO HS COLT Stop: 06/17/25 20:59 Last Admin: 05/18/25 21:03 Dose: 300 mg Documented By: LARA Discontinued Medications Acetaminophen (Acetaminophen 325 Mg Tab) 650 mg PO NOW STA Stop: 05/18/25 13:38 Last Admin: 05/18/25 13:54 Dose: 650 mg Documented By: CYDNEY Diphenhydramine HCl (Diphenhydramine 50 Mg/Ml Vial) 12.5 mg IV NOW STA Stop: 05/18/25 15:25 Last Admin: 05/18/25 15:34 Dose: 12.5 mg Documented By: CYDNEY Sodium Chloride (Nss) 500 mls @ 500 mls/hr IV .Q1H ONE Stop: 05/18/25 14:37 Last Infusion: 05/18/25 15:51 Dose: Infused Documented By: Admin: 05/18/25 13:55 Dose: 500 mls/hr Documented By: CYDNEY Prochlorperazine (Compazine) 1 mls @ 1 mls/min IV ONE ONE Stop: 05/18/25 15:25 Last Admin: 05/18/25 15:34 Dose: 1 mls/min Documented By: CYDNEY Magnesium Sulfate/Dextrose (Magnesium Sulfate / D5w) 1 gm in 100 mls @ 100 mls/hr IV NOW STA Stop: 05/18/25 16:59 Last Infusion: 05/18/25 17:18 Dose: Infused Documented By: Admin: 05/18/25 16:08 Dose: 100 mls/hr Documented By: CYDNEY Miscellaneous (Patient's Height &/Or Weight Needed) 1 each N/A Q2H STA Stop: 05/18/25 17:34 Last Admin: 05/18/25 18:02 Dose: Not Given Documented By: CYDNEY Medical Decision Making Laboratory Data 05/18/25 12:30 05/18/25 12:30 Lab Results 05/18/25 Range/Units 12:30 WBC 8.36 (4.8-10.8) K/ul RBC 4.52 (4.20-5.40) M/uL Hgb 13.2 (12.0-16.0) g/dl Hct 39.1 (37.0-47.0) % MCV 86.5 (80.0-100.0) fL MCH 29.2 (25.0-34.0) pg MCHC 33.8 (32.0-36.0) g/dL RDW Std Deviation 46.5 H (36.4-46.3) fL RDW Coeff of Arden 14.7 H (11.5-14.5) % Plt Count 274 (130-400) K/uL MPV 9.6 (9.4-12.4) fL Immature Gran % (Auto) 0.1 % Neut % (Auto) 64.2 % Lymph % (Auto) 25.1 % Trigg % (Auto) 8.4 % Eos % (Auto) 1.6 % Baso % (Auto) 0.6 % Neut # (Auto) 5.37 (1.40-6.50) K/uL Lymph # (Auto) 2.10 (1.20-3.40) K/uL Trigg # (Auto) 0.70 H (0.11-0.59) K/uL Eos # (Auto) 0.13 (0.00-0.50) K/uL Baso # (Auto) 0.05 (0.00-0.20) K/uL Immature Gran # (Auto) 0.01 (0.01-0.20) K/uL Sodium 139 (136-145) mmol/L Potassium 3.8 (3.5-5.1) mmol/L Chloride 104 (98-107) mmol/L Carbon Dioxide 26 (21-32) mmol/L Anion Gap 9 (3-11) BUN 14 (6-23) mg/dl Creatinine 0.77 (0.6-1.2) mg/dl Est Cr Clr Drug Dosing Not Reportable eGFR 79.40 BUN/Creatinine Ratio 18.2 (10-20) Glucose 108 H (70-99(Fasting)) mg/dl Calcium 9.4 (8.6-10.3) mg/dl Magnesium 1.8 (1.7-2.4) mg/dl Total Bilirubin 0.6 (0.2-1.0) mg/dl AST 22 (13-39) U/L ALT 18 (7-52) U/L Alkaline Phosphatase 107 H (34-104) U/L Total Protein 7.3 (6.0-8.3) gm/dl Albumin 4.3 (3.4-5.0) gm/dl Globulin 3.0 (2.5-4.0) gm/dl Albumin/Globulin Ratio 1.4 (0.9-2) Urine Color Yellow Urine Appearance Clear (Clear) Urine pH 7.5 (4.5-7.5) Ur Specific Brandon 1.006 (1.000-1.030) Urine Protein Negative (Negative) Urine Glucose (UA) Negative (Negative) Urine Ketones Negative (Negative) Urine Blood Negative (Negative) Urine Nitrite Negative (Negative) Urine Bilirubin Negative (Negative) Urine Urobilinogen Negative (Negative) Ur Leukocyte Esterase 1+ H (Negative) Urine WBC (Auto) 0-5 (0-5) /hpf Urine RBC (Auto) 0-2 (0-2) /hpf U Hyaline Cast (Auto) 0-2 (0-2) /lpf U Epithel Cells (Auto) 0-2 (0-2) /hpf Urine Bacteria (Auto) None Seen (None Seen) Urine Comment Lyme Disease Screen Negative (Negative) Imaging Data Radiologist's Impression: Head CT 05/18/25 13:37 CT head/brain wo con CLINICAL HISTORY: L sided headache, anticoagulated. TECHNIQUE: Multiple axial CT images of the head were obtained without contrast. A dose lowering technique was utilized adhering to the principles of ALARA. CT DOSE: 625.8 mGy.cm COMPARISON: 11/06/2024 FINDINGS: There is motion artifact. No intracranial hemorrhage seen. No mass effect, midline shift, or hydrocephalus. No skull fracture seen. Visualized paranasal sinuses and mastoid air cells are clear. IMPRESSION: No acute findings. ACT 112: Negative or not required by law. The above report was generated using voice recognition software. It may contain grammatical, syntax or spelling errors. Electronically signed by: Yoel Damian M.D. 05/18/2025 2:47 PM MDM Narrative Patient was seen and evaluated as above in room A11a. Review was performed of nursing notes and vital signs. I did review pertinent previous visits and patient history. After obtaining a thorough history and physical examination the above work up was performed. Patient presents to us today she notes referred from a physician at [facility] for evaluation of headache, urinary urgency. Both of which began last evening. Patient well-appearing and nontoxic on exam. Negative Kernig. Negative Brudzinski. NIHSS 0. GCS 15. Options of care were discussed with the patient. IV access was established. Labs were drawn. No leukocytosis or concerning anemia. No emergent metabolic disturbance. Urinalysis revealed 1+ leukocytes. Urine culture added. Lyme screen negative. CT scan head performed and was negative for acute process. Patient did receive multiple medicines here to help alleviate her headache. I did review benefit versus risk of each medication with the patient. It was felt that the benefit outweighed risk. Unfortunately her headache persisted. I discussed multiple options with the patient. Ultimately plan was to proceed with further evaluation and management in the inpatient setting. Case discussed with the hospitalist service. Please refer to further documentation regarding her stay. GCS: 15 In the evaluation and treatment of this patient the following differential diagnoses were entertained: Intracranial hemorrhage, skull fracture, carbon monoxide exposure, CVA, TIA, aneurysm, migraine, UTI, pyelonephritis, among others. Impression & Plan Headache, UTI symptoms Discharge Plan Visit Data Chief Complaint: Dehydration Stated Complaint: DEHYDRATION, UTI, SEVERE PAIN IN HEAD ED Provider: Jamaal Bentley ED Midlevel Provider: Juancarlos Lorenzo Discharge Problem: Headache, UTI symptoms Patient Disposition: Admitted As Inpatient Condition: Good Discharge Instructions Interventions: ED Discharge Assessment Last Done: 05/18/25 19:14
[2025-05-18] MEDS: ACETAMINOPHEN 325 MG TAB PO STA (13:54)
[2025-05-18] MEDS: SODIUM CHLORIDE 0.9% 500 ML IV ONE (13:55)
--- NOTE | 2025-05-18 14:48 | CT Scan Report ---
CT head/brain wo con CLINICAL HISTORY: L sided headache, anticoagulated. TECHNIQUE: Multiple axial CT images of the head were obtained without contrast. A dose lowering tech nique was utilized adhering to the principles of ALARA. CT DOSE: 625.8 mGy.cm COMPARISON: 11/06/2024 FINDINGS: There is motion artifact. No intracranial hemorrhage seen. No mass effect, midline shift, o r hydrocephalus. No skull fracture seen. Visualized paranasal sinuses and mastoid air cells are clear . IMPRESSION: No acute findings. ACT 112: Negative or not required by law. The above report was generated using voice recognition software. It may contain grammatical, syntax o r spelling errors. Electronically signed by: Yoel Damian M.D. 05/18/2025 2:47 PM
[2025-05-18 15:21] VITALS: RESP 18
[2025-05-18] MEDS: PROCHLORPERAZINE 1 ML IV ONE (15:34)
[2025-05-18] MEDS: diphenhydrAMINE 50 MG/ML VIAL IV STA (15:34)
[2025-05-18 15:56] LABS: Magnesium 1.8 mg/dl (1.7-2.4)
[2025-05-18] MEDS: MAGNESIUM SULFATE / D5W 1 GM/100 ML BAG IV STA (16:08)
[2025-05-18] MEDS ORDERED: POLYETHYLENE (MIRALAX) 17 GM PACK PO PRN (17:29)
[2025-05-18] MEDS ORDERED: ALUMINUM/MAGNESIUM SUSP 30 ML UDC PO PRN (17:29)
[2025-05-18] MEDS ORDERED: MAGNESIUM HYDROXIDE SUSP 30 ML UDC PO PRN (17:29)
--- NOTE | 2025-05-18 17:38 | History & Physical Report ---
Date of Service May 18, 2025 Assessment & Plan (1) Acute migraine: Plan Intractable headache,possible migrane Possible UTI Patient presents to the hospital with intractable left-sided headache and increasing urinary frequency. CBC, BMP were unremarkable. Urinalysis showed 1+ leukocyte esterase. Head CT did not show any acute finding. IV fluids with NSS Empiric ceftriaxone; follow-up on urine culture Pain control with home dose of oxycodone Chronic pain Multiple back surgeries - prescription hx reveals multiple prescriptions of oxycodone. continue oxycodone 5mg q8 as needed History of CAD Status post 2 bare-metal stents to LAD Continue On aspirin, Eliquis, Lipitor and metoprolol succinate Chronic diastolic CHF On Lasix, continue home dose History of DVT/PE On Eliquis,continue in am Obstructive sleep apnea CPAP noncompliance Hypertension On metoprolol succinate, continue monitor blood pressure Hyperlipidemia On statin,continue Type 2 diabetes Hold Ozempic Hba1c of 6.1% PTSD Generalized anxiety disorder Depression Bipolar disorder On buspirone and trazodone-conitnue History of Ramirez's esophagus GERD On Protonix-continue DVT prophylaxis On Eliquis Disposition med/surg Full code Time spent evaluating patient, direct bedside care, chart review, placing orders, interpretation of diagnostic studies, discussion with consultants, patient, and family members, as well as other required patient management a ctivities is 75 minutes Please note the above document was generated using voice recognition software. It may contain grammatical, syntax or spelling errors. Any formal questions or concerns about the content, text or information contained within the body of this dictation should be directly addressed to the provider for clarification History of Present Illness Chief Complaint: Headache for 1 day Primary Care Provider: Svetlana Jacobs DO History obtained from chart review, discussion with ED provider and discussed with patient Past medical history of type 2 diabetes mellitus, hyperlipidemia, COPD, chronic diastolic CHF, hypertension, CAD, GERD, diverticulosis, chronic pain syndrome on opioids, depression, PTSD, GENE, history of DVT, bipolar disorder, history of opioid use Her last admission was in March 2025 with right shoulder pain. Patient was referred to the hospital by her primary care provider for headache. Patient reports that she has left-sided headache which started last evening with associated nausea. Denies any vomiting. She also reports increased urinary frequency and feels that she is dehydrated. She denies fever, chills, chest pain, abdominal pain. Patient reports that IV morphine helps with the pain. I discussed with her regarding abortive treatment for migraine including dexamethasone, Reglan which she declined to use. On presentation to the ED, she was afebrile, normotensive and saturating well in room air. CBC, BMP were unremarkable. Urinalysis showed 1+ leukocyte esterase. Head CT did not show any acute finding. Allergies Allergy/AdvReac Type Severity Reaction Status Date / Time adhesive tape Allergy Intermediate Skin Verified 04/25/25 09:45 irritation latex Allergy Intermediate Rash Verified 04/25/25 09:45 aspirin AdvReac Intermediate Bleeding Verified 04/25/25 09:45 ulcers (full dose ASA) NSAIDS (Non-Steroidal AdvReac Intermediate Hx Verified 04/25/25 09:45 Anti-Inflamma bleeding ulcers (advised to avoid) Home Medications Medication Instructions Recorded Confirmed Type atorvastatin 40 mg tablet (Lipitor) 40 mg PO QAM 12/13/18 05/18/25 History levothyroxine 75 mcg tablet 75 mcg PO DAILYBB 12/13/18 05/18/25 History promethazine 25 mg tablet 25 mg PO Q6H PRN Nausea 05/12/19 05/18/25 History nitroglycerin 0.3 mg sublingual 0.3 mg sublingual DIRECTED PRN 05/23/19 05/18/25 History tablet (Nitrostat) Chest Pain olopatadine 0.2 % eye drops 0 drp ophthalmic (eye) QAM 05/23/19 05/18/25 History tizanidine 4 mg tablet 4 mg PO BID PRN Muscle Spasm 04/03/20 05/18/25 History furosemide 20 mg tablet 40 mg PO QAM 10/05/20 05/18/25 History apixaban 5 mg tablet (Eliquis) 5 mg PO BID 10/11/21 05/18/25 History metoprolol succinate 100 mg 100 mg PO QAM 01/20/23 05/18/25 History tablet,extended release 24 hr semaglutide 2 mg/dose (8 mg/3 mL) 2 mg subcut WK 01/20/23 05/18/25 History subcutaneous pen injector (Ozempic) buspirone 10 mg tablet 10 mg PO BID 02/20/23 05/18/25 History ondansetron 4 mg disintegrating 4 mg PO Q6H PRN nausea and 01/08/24 07/31/25 Rx tablet vomiting #10 tabs pantoprazole 40 mg tablet,delayed 40 mg PO BID #60 tabs 12/21/23 05/18/25 Rx release aspirin 81 mg tablet,delayed 81 mg PO QAM #0 tabs 02/19/24 05/18/25 Rx release trazodone 150 mg tablet 300 mg PO HS 12/28/24 05/18/25 History oxycodone 5 mg tablet 5 mg PO TID PRN pain #30 tabs 01/06/25 05/18/25 Rx epinephrine 0.3 mg/0.3 mL 0.3 mg IM DIRECTED PRN Allergic 03/31/25 05/18/25 History injection, auto-injector (EpiPen) Reaction lidocaine 5 % topical patch 1 patch transdermal HS #30 ea 04/06/25 05/18/25 Rx potassium chloride 10 mEq 10 meq PO DAILY 05/18/25 05/18/25 History tablet,extended release(part/cryst) Past Med/Surg History Problem List (Updated 05/18/25 @ 17:34 by Gil Ortiz MD) Acute migraine Failure of outpatient treatment (Acute) Cervical disc disease (Acute) Right shoulder pain (Acute) Cervical radiculopathy Chronic pain after musculoskeletal injury Acute hypotension Status post reverse total arthroplasty of right shoulder History of nickel allergy Right rotator cuff tear arthropathy Chronic right shoulder pain Proctocolitis (Acute) 02/16/24 Postmenopausal bleeding 02/14/24 Right shoulder pain History of arthroscopy of right shoulder 10/23/23 ([facility]) Right shoulder arthroscopy, I&D of subacromial hematoma Encounter for pre-operative examination History of arthroscopy of right shoulder rt shoulder, 06/2023 Dilation of thoracic aorta mild per cardio; monitoring HOLLY (obstructive sleep apnea) noncompliant with CPAP per cardio note History of post-polio syndrome Orthostatic hypotension 07/02/23 Dysfunction of right rotator cuff History of rotator cuff surgery Barretts esophagus on protonix; follows with GI Peroneus brevis tendinitis Hypomagnesemia (Acute) 04/16/23 History of pulmonary embolism Non-specific colitis 04/06/23 S/P right rotator cuff repair Diabetes mellitus, type 2 06/26/23 Ha1c: 5.8% Constipation 3/29/23 Rotator cuff tear Rotator cuff tendinitis DVT (deep venous thrombosis) (Acute) Migraine (Acute) Generalized weakness (Acute) 04/11/20 Ambulatory dysfunction Chronic pain (Chronic) History of vascular access device (Chronic) Left upper chest port (*not a power port*) Mood disorder (Chronic) CAD (coronary artery disease) 2 BMS to LAD (2017) History of anesthesia reaction (Chronic) Awareness with spinal surgeries Ovarian cyst (Chronic) X 2 Degenerative disc disease (Chronic) History of laminectomy (Chronic) and fusion "entire spine is fused(except cervical spine)" [facility] (Dr Catherine) 1989' Fusion of spine (Chronic) LUMBAR Osteoarthritis (Chronic) History of appendectomy (Chronic) Colitis (Chronic) 02/15/24 Anemia (Chronic) History of tonsillectomy (Chronic) History of adenoidectomy (Chronic) Post traumatic stress disorder (Chronic) Depression Restless leg syndrome (Chronic) Migraine (Chronic) Hx, no recent issues Deep vein thrombosis (Chronic) ~2014, unknown cause Pulmonary embolism (Chronic) ~2014 (UNSURE OF REASON) History of heart artery stent (Chronic) 2016-x2 STENTS PLACED AT [facility] (DR. DAVILA) Myocardial Infarction (Chronic) NSTEMI 2017; s/p 2 BMS to LAD Hypertension H/O ovarian cystectomy (Chronic) x2 H/O repair of right rotator cuff (Chronic) H/O spinal fusion (Chronic) Multiple Dyslipidemia (Chronic) Cervical spondylolysis (Chronic) Scoliosis (Chronic) Medical History History of blood transfusion Osteoarthritis History of colitis Migraine Hx, no recent issues HTN (hypertension) h/o orthostatic hypotension in 2022; controlled, stable per pt Port-A-Cath in place left chest wall, replacement 04/18/24, power port Dyslipidemia Depression Cervical spondylosis no ROM limits Barretts esophagus on protonix; follows with GI History of nickel allergy recent allergy testing showed she is not allergic to nickel Diabetes NIDDM History of anemia PTSD (post-traumatic stress disorder) RLS (restless legs syndrome) Hx of myocardial infarction (~2016) NSTEMI > BMS x2 to LAD Scoliosis CAD (coronary artery disease) BMS x2 to LAD Hx of post-polio syndrome HOLLY (obstructive sleep apnea) pt denies Dilation of thoracic aorta Echo 01/2024: Aortic root and proximal ascending aorta are normal sized Hx of deep venous thrombosis (~2017) DVT > PE Hx pulmonary embolism (~2017) DVT > PE Chronic pain syndrome Back Cyclic vomiting syndrome hx, no issues in "years" Hx of Clostridium difficile infection (~2016) Remote hx History of COVID-19 (~10/2021) treated inpatient at [facility]/Covid PNA > symptoms resolved Chronic heart failure with preserved ejection fraction (HFpEF) Follows with [facility] Hypothyroidism Anxiety Hyperlipidemia duplicate Surgical History History of reverse total replacement of right shoulder joint 09/07/24, [facility] Hx of laminectomy and fusion "entire spine is fused(except cervical spine)" [facility] (Dr Catherine) Hx of dilation and curettage (06/2024) [facility]-- recent rectal and vaginal bleeding due to polyps Hx of knee surgery right-open meniscus repair History of anesthesia reaction Awareness with spinal surgery History of cataract surgery R/L S/P panniculectomy Hx of appendectomy History of tonsillectomy and adenoidectomy Hx of ovarian cystectomy x2 Hx of heart artery stent 2017- BMS x2 Hx of cardiac cath 2017- BMS x2 Hx of arthroscopy of shoulder Right shoulder, 01/2023, 06/2023, 10/23/23 ([facility]) Right shoulder arthroscopy, I&D of subacromial hematoma Hx of spinal surgery Multiple back surgeries History of colonoscopy History of esophagogastroduodenoscopy (EGD) History of back surgery bilateral SI Joint replacements (~2020/[facility]) S/P hardware removal Removal of all back hardware (~2002) [facility] Family History Mother Hypertension Father Hypertension Other No family history of adverse response to anesthesia Social History Smoking Status: Never smoker Second Hand Exposure: No; Do You Dip or Chew Tobacco: No; Hx Alcohol Use: No Hx Substance Use: No Preferred Language: Spanish Communication Ability: Effective Visual Impairment: Limited Hearing Ability: Normal 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 Normal insp/exp effort, no accessory muscle use Cardiovascular: RRR, no murmur, no edema Vessels: no JVD or carotid bruit Chest: normal inspection of chest Abdomen: normal bowel sounds, soft, nontender, no hepatosplenomegaly Musculoskeletal: no cyanosis or clubbing, extremities motor strength 5/5 Skin: no rashes, warm and dry normal turgor Neurologic: PERRL, EOMI, accommodation nl, no face palsy, no dysarthria CN's II- XI intact bilaterally and moves all extremities Psychiatric: A+Ox3, euthymic affect Results & Data Results & Data Vital Signs (Past 12 Hours) Vital Signs Temp Pulse Pulse Resp BP BP Pulse Ox 05/18/25 16:10 94 05/18/25 15:20 62 18 119/74 05/18/25 11:46 37.4 C 89 19 120/85 96 O2 Del Method 05/18/25 16:10 Room Air 05/18/25 15:20 Room Air 05/18/25 11:46 Room Air
[2025-05-18] MEDS: SODIUM CHLORIDE 0.9% 1,000 ML IV SCH (17:45)
[2025-05-18] MEDS: cefTRIAXone SODIUM 2,000 MG/50 ML BAG IV SCH (17:45)
[2025-05-18] MEDS: Patient's HEIGHT &/or WEIGHT Needed STA (18:02)
[2025-05-18] MEDS ORDERED: PROMETHAZINE HCL 25 MG TAB PO PRN (19:14)
[2025-05-18] MEDS ORDERED: EPINEPHrine INJ 1 MG/ML AMP IM PRN (19:31)
[2025-05-18] MEDS ORDERED: NITROGLYCERIN SL 0.4 MG/TAB TAB SL PRN (19:33)
[2025-05-18] MEDS: busPIRone 5 MG TAB PO SCH (21:05)
[2025-05-18] MEDS: LIDOCAINE 5% 1 PATCH TD SCH (21:06)
[2025-05-18] MEDS: REMOVE LIDODERM PATCH SCH (21:38)
[2025-05-18] MEDS: ONDANSETRON 4 MG OD TAB PO PRN (21:46)
[2025-05-19] MEDS: KETOROLAC TROMETHAMINE 15 MG/ML VIAL IV STA (01:25)
[2025-05-19] MEDS: METOCLOPRAMIDE HCL INJ 5 MG/ML 2 ML VIAL IV STA (01:27)
[2025-05-19] MEDS: ACETAMINOPHEN 1000 MG/100 ML IV IV STA (01:29)
[2025-05-19] MEDS: diphenhydrAMINE 50 MG/ML VIAL IV STA (01:29)
[2025-05-19] MEDS: LEVOTHYROXINE SODIUM 75 MCG TABLET PO SCH (05:41)
[2025-05-19] MEDS: ACETAMINOPHEN 325 MG TAB PO PRN (07:54)
[2025-05-19] MEDS: ATORVASTATIN 40 MG TAB PO SCH (08:00)
[2025-05-19] MEDS: METOPROLOL SUCC 50MG EXT REL TAB PO SCH (08:00)
[2025-05-19] MEDS: FUROSEMIDE 40 MG TAB PO SCH (08:00)
[2025-05-19] MEDS: ASPIRIN 81 MG ECTAB PO SCH (08:00)
[2025-05-19] MEDS: POTASSIUM CHLORIDE 10 MEQ TABCR PO SCH (08:45)
[2025-05-19 15:21] VITALS: BP 101/63; PULSE 86; TEMP 97.5; O2SAT 95
--- NOTE | 2025-05-19 15:55 | Discharge Summary ---
Date of Service May 19, 2025 Admission HPI Per Admitting Provider History obtained from chart review, discussion with ED provider and discussed with patient Past medical history of type 2 diabetes mellitus, hyperlipidemia, COPD, chronic diastolic CHF, hypertension, CAD, GERD, diverticulosis, chronic pain syndrome on opioids, depression, PTSD, GENE, history of DVT, bipolar disorder, history of opioid use Her last admission was in March 2025 with right shoulder pain. Patient was referred to the hospital by her primary care provider for headache. Patient reports that she has left-sided headache which started last evening with associated nausea. Denies any vomiting. She also reports increased urinary frequency and feels that she is dehydrated. She denies fever, chills, chest pain, abdominal pain. Patient reports that IV morphine helps with the pain. I discussed with her regarding abortive treatment for migraine including dexamethasone, Reglan which she declined to use. On presentation to the ED, she was afebrile, normotensive and saturating well in room air. CBC, BMP were unremarkable. Urinalysis showed 1+ leukocyte esterase. Head CT did not show any acute finding. Admission Exam Per Admitting Provider On physical examination; Constitutional: WD/WN, vitals as above, NAD, sitting up in bed, pleasant, conversing easily Respiratory: normal respiratory effort, lungs clear to auscultation, no wheeze, rales, rhonchi. Normal insp/exp effort, no accessory muscle use Cardiovascular: RRR, no murmur, no edema Vessels: no JVD or carotid bruit Chest: normal inspection of chest Abdomen: normal bowel sounds, soft, nontender, no hepatosplenomegaly Musculoskeletal: no cyanosis or clubbing, extremities motor strength 5/5 Skin: no rashes, warm and dry normal turgor Neurologic: PERRL, EOMI, accommodation nl, no face palsy, no dysarthria CN's II- XI intact bilaterally and moves all extremities Psychiatric: A+Ox3, euthymic affect Principal Diagnosis Headache Acute UTI Discharge Exam On physical examination; Constitutional: WD/WN, vitals as above, NAD, sitting up in bed, pleasant, conversing easily Respiratory: normal respiratory effort, lungs clear to auscultation, no wheeze, rales, rhonchi. Normal insp/exp effort, no accessory muscle use Cardiovascular: RRR, no murmur, no edema Vessels: no JVD or carotid bruit Chest: normal inspection of chest Abdomen: normal bowel sounds, soft, nontender, no hepatosplenomegaly Musculoskeletal: no cyanosis or clubbing, extremities motor strength 5/5 Skin: no rashes, warm and dry normal turgor Neurologic: PERRL, EOMI, accommodation nl, no face palsy, no dysarthria CN's II- XI intact bilaterally and moves all extremities Psychiatric: A+Ox3, euthymic affect Discharge Data Allergies Allergy/AdvReac Type Severity Reaction Status Date / Time adhesive tape Allergy Intermediate Skin Verified 04/25/25 09:45 irritation latex Allergy Intermediate Rash Verified 04/25/25 09:45 aspirin AdvReac Intermediate Bleeding Verified 04/25/25 09:45 ulcers (full dose ASA) NSAIDS (Non-Steroidal AdvReac Intermediate Hx Verified 04/25/25 09:45 Anti-Inflamma bleeding ulcers (advised to avoid) Consultations 05/18/25 16:33 ED Decision to Admit Stat Ordered Studies 05/18/25 13:37 CT head/brain wo con Stat Hospital Course (1) Acute migraine: Plan Intractable headache,possible migrane Possible UTI Patient presents to the hospital with intractable left-sided headache and increasing urinary frequency. CBC, BMP were unremarkable. Urinalysis showed 1+ leukocyte esterase. Head CT did not show any acute finding. Patient was admitted to medical floor; was started on IV antibiotic, IV fluids and analgesics with improvement in pain and symptoms. She was discharged on oral antibiotic with instructions to follow-up with her primary care doctor. Please note the above document was generated using voice recognition software. It may contain grammatical, syntax or spelling errors. Any formal questions or concerns about the content, text or information contained within the body of this dictation should be directly addressed to the provider for clarification Total Time Total Time Spent Total Time Spent (In Minutes): 45 Total Time Includes: Examination of the Patient, Discharge Planning, Medication Reconciliation, Communication With Other Providers and Other Discharge Plan Discharge Items Patient Disposition: Home - Self-Care Reason For Visit: HEADACHE Discharge Diagnosis: Migraine headache Acute UTI Condition on Discharge: Good Activity: Resume your previous activity Non-emergency contact: Primary Care Provider Call non-emergency contact if: you have any medication questions and your symptoms worsen Follow-up/Referrals: Svetlana Jacobs DO [Primary Care Provider] - (The office will call you with a follow up appointment.) Diet: Regular Addtl Attending Provider Instructions: You were admitted to the hospital due to UTI. You were treated with antibiotic during the hospitalization and you are prescribed Augmentin to be taken for 4 more days to complete the antibiotic course. Pending Studies at Discharge: No Stand-Alone Forms: [facility], Smoking Cessation Medications and DC Order Prescriptions: New amoxicillin-pot clavulanate 875-125 mg tablet 1 tab PO BID 4 Days Qty: 8 0RF Continued pantoprazole 40 mg tablet,delayed release (DR/EC) 40 mg PO BID Qty: 60 2RF Patient Comments: only takes once daily QAM oxycodone 5 mg tablet 5 mg PO TID MDD 4 tablets PRN (Reason: pain) Qty: 30 0RF nitroglycerin [Nitrostat] 0.3 mg Tablet, Sublingual 0.3 mg sublingual DIRECTED PRN (Reason: Chest Pain) Patient Comments: 05/18- no fill history unable to verify Rx Instructions: NEEDED FOR CHEST PAIN : ONE TABLET UNDER THE TONGUE EVERY 5 MINUTES UP TO 3 DOSES. olopatadine 0.2 % Drops 0 drp ophthalmic (eye) QAM Rx Instructions: 05/18- otc unable to verify furosemide 20 mg tablet 40 mg PO QAM Rx Instructions: may take additional dose as directed for edema. atorvastatin [Lipitor] 40 mg Tablet 40 mg PO QAM levothyroxine 75 mcg Tablet 75 mcg PO DAILYBB Rx Instructions: take before breakfast or other meds buspirone 10 mg tablet 10 mg PO BID Patient Comments: 05/18- last filled 02/10 90 day supply #180 promethazine 25 mg Tablet 25 mg PO Q6H PRN (Reason: Nausea) tizanidine 4 mg tablet 4 mg PO BID PRN (Reason: Muscle Spasm) Eliquis 5 mg tablet 5 mg PO BID Hold Instructions: Resume on 02/23/24. Resume once allowed by your primary care physician Patient Comments: was restarted, but will stop for sx that is on 04/18. ondansetron 4 mg tablet,disintegrating 4 mg PO Q6H PRN (Reason: nausea and vomiting) Qty: 10 0RF metoprolol succinate 100 mg Tablet Extended Release 24 Hr 100 mg PO QAM Ozempic 2 mg/dose (8 mg/3 mL) Pen Injector 2 mg SUBCUT WK Rx Instructions: WEDN[facility]DA[facility] trazodone 150 mg tablet 300 mg PO HS aspirin 81 mg Tablet,Delayed Release (Dr/Ec) 81 mg PO QAM Qty: 0 0RF Patient Comments: 05/18- otc unable to verify epinephrine [EpiPen] 0.3 mg/0.3 mL Auto-Injector 0.3 mg IM DIRECTED PRN (Reason: Allergic Reaction) Patient Comments: 05/18- no fill history unable to verify lidocaine 5 % Adhesive Patch,Medicated 1 patch transdermal HS Qty: 30 0RF Patient Comments: 05/18- otc unable to verify potassium chloride 10 mEq tablet,ER particles/crystals 10 meq PO DAILY Discharge Orders: Discharge Order (Routine); Ordered 05/19/25 Ordered By: Gil Ortiz Admission Data Admit Date/Time: 05/18/25 17:29 Attending Provider: Gil Ortiz Admit Provider: Gil Ortiz Primary Care Provider: Svetlana Jacobs Other Providers: Gil Ortiz
[2025-05-19] MEDS ORDERED: HEPARIN 100 UNIT/ML 5ML FLUSH FLUSH PRN (18:06)
[2025-05-19] MEDS: HEPARIN 100 UNIT/ML 5ML FLUSH ONE (18:09)
== END 2025-05-19 18:27 | disposition home or self-care (01) | DRG 103 ==
LOC: ED 11:40 → EDINP 17:29 → 3W 19:14

== ENCOUNTER 2025-05-29 00:29 | Inpatient (IN) ==
[2025-05-29] MEDS: ONDANSETRON INJ 2 MG/ML 2 ML VIAL IV STA ×2 (01:14→01:35)
[2025-05-29] MEDS: SODIUM CHLORIDE 0.9% 1,000 ML IV ONE (01:14)
--- NOTE | 2025-05-29 01:31 | Emergency Department Note ---
History of Present Illness General Chief complaint: Vomiting Stated complaint: Vomiting Time Seen by Provider: 05/29/25 01:19 History of Present Illness This 75 yo female with a PMH of type 2 diabetes mellitus, hyperlipidemia, COPD, chronic diastolic CHF, hypertension, CAD, GERD, diverticulosis, chronic pain syndrome on opioids, depression, PTSD, GENE, history of DVT, bipolar disorder, history of opioid use presents ER for nausea and vomiting and has a history of cyclic vomiting. No known trigger. Patient also complains of mid abdominal pain. Patient denies chest pain, dyspnea, fever, chills, cough, congestion, marijuana use. Patient states she normally needs antiemetics, fluids and admission. Home Medications Medication Instructions Recorded Confirmed Type atorvastatin 40 mg tablet (Lipitor) 40 mg PO QAM 12/13/18 05/18/25 History levothyroxine 75 mcg tablet 75 mcg PO DAILYBB 12/13/18 05/18/25 History promethazine 25 mg tablet 25 mg PO Q6H PRN Nausea 05/12/19 05/18/25 History nitroglycerin 0.3 mg sublingual 0.3 mg sublingual DIRECTED PRN 05/23/19 05/18/25 History tablet (Nitrostat) Chest Pain olopatadine 0.2 % eye drops 0 drp ophthalmic (eye) QAM 05/23/19 05/18/25 History tizanidine 4 mg tablet 4 mg PO BID PRN Muscle Spasm 04/03/20 05/18/25 History furosemide 20 mg tablet 40 mg PO QAM 10/05/20 05/18/25 History apixaban 5 mg tablet (Eliquis) 5 mg PO BID 10/11/21 05/18/25 History metoprolol succinate 100 mg 100 mg PO QAM 01/20/23 05/18/25 History tablet,extended release 24 hr semaglutide 2 mg/dose (8 mg/3 mL) 2 mg subcut WK 01/20/23 05/18/25 History subcutaneous pen injector (Ozempic) buspirone 10 mg tablet 10 mg PO BID 02/20/23 05/18/25 History ondansetron 4 mg disintegrating 4 mg PO Q6H PRN nausea and 10/26/23 05/18/25 Rx tablet vomiting #10 tabs pantoprazole 40 mg tablet,delayed 40 mg PO BID #60 tabs 12/21/23 05/18/25 Rx release aspirin 81 mg tablet,delayed 81 mg PO QAM #0 tabs 02/19/24 05/18/25 Rx release trazodone 150 mg tablet 300 mg PO HS 12/28/24 05/18/25 History oxycodone 5 mg tablet 5 mg PO TID PRN pain #30 tabs 01/06/25 05/18/25 Rx epinephrine 0.3 mg/0.3 mL 0.3 mg IM DIRECTED PRN Allergic 03/31/25 05/18/25 History injection, auto-injector (EpiPen) Reaction lidocaine 5 % topical patch 1 patch transdermal HS #30 ea 04/06/25 05/18/25 Rx potassium chloride 10 mEq 10 meq PO DAILY 05/18/25 05/18/25 History tablet,extended release(part/cryst) Allergies Allergy/AdvReac Type Severity Reaction Status Date / Time adhesive tape Allergy Intermediate Skin Verified 04/25/25 09:45 irritation latex Allergy Intermediate Rash Verified 04/25/25 09:45 aspirin AdvReac Intermediate Bleeding Verified 04/25/25 09:45 ulcers (full dose ASA) NSAIDS (Non-Steroidal AdvReac Intermediate Hx Verified 04/25/25 09:45 Anti-Inflamma bleeding ulcers (advised to avoid) Past Med/Surg History Problem List (Updated 05/29/25 @ 02:16 by Flor Garcia PA-C) Abdominal pain, acute (Acute) Intractable nausea and vomiting (Acute) Headache (Acute) Acute migraine Failure of outpatient treatment (Acute) Cervical disc disease (Acute) Right shoulder pain (Acute) Cervical radiculopathy Chronic pain after musculoskeletal injury Acute hypotension Status post reverse total arthroplasty of right shoulder History of nickel allergy Right rotator cuff tear arthropathy Chronic right shoulder pain Proctocolitis (Acute) 02/16/24 Postmenopausal bleeding 02/14/24 Right shoulder pain History of arthroscopy of right shoulder 10/23/23 ([facility]) Right shoulder arthroscopy, I&D of subacromial hematoma Encounter for pre-operative examination History of arthroscopy of right shoulder rt shoulder, 06/2023 Dilation of thoracic aorta mild per cardio; monitoring HOLLY (obstructive sleep apnea) noncompliant with CPAP per cardio note History of post-polio syndrome Orthostatic hypotension 07/02/23 Dysfunction of right rotator cuff History of rotator cuff surgery Barretts esophagus on protonix; follows with GI Peroneus brevis tendinitis Hypomagnesemia (Acute) 04/16/23 History of pulmonary embolism Non-specific colitis 04/06/23 S/P right rotator cuff repair Diabetes mellitus, type 2 06/26/23 Ha1c: 5.8% Constipation 01/14/23 Rotator cuff tear Rotator cuff tendinitis DVT (deep venous thrombosis) (Acute) Migraine (Acute) Generalized weakness (Acute) 04/11/20 Ambulatory dysfunction Chronic pain (Chronic) History of vascular access device (Chronic) Left upper chest port (*not a power port*) Mood disorder (Chronic) CAD (coronary artery disease) 2 BMS to LAD (2017) History of anesthesia reaction (Chronic) Awareness with spinal surgeries Ovarian cyst (Chronic) X 2 Degenerative disc disease (Chronic) History of laminectomy (Chronic) and fusion "entire spine is fused(except cervical spine)" [facility] (Dr Catherine) 1989' Fusion of spine (Chronic) LUMBAR Osteoarthritis (Chronic) History of appendectomy (Chronic) Colitis (Chronic) 02/15/24 Anemia (Chronic) History of tonsillectomy (Chronic) History of adenoidectomy (Chronic) Post traumatic stress disorder (Chronic) Depression Restless leg syndrome (Chronic) Migraine (Chronic) Hx, no recent issues Deep vein thrombosis (Chronic) ~2014, unknown cause Pulmonary embolism (Chronic) ~2014 (UNSURE OF REASON) History of heart artery stent (Chronic) 2017-x2 STENTS PLACED AT [facility] (DR. DAVILA) Myocardial Infarction (Chronic) NSTEMI 2017; s/p 2 BMS to LAD Hypertension H/O ovarian cystectomy (Chronic) x2 H/O repair of right rotator cuff (Chronic) H/O spinal fusion (Chronic) Multiple Dyslipidemia (Chronic) Cervical spondylolysis (Chronic) Scoliosis (Chronic) Medical History History of blood transfusion Osteoarthritis History of colitis Migraine Hx, no recent issues HTN (hypertension) h/o orthostatic hypotension in 2022; controlled, stable per pt Port-A-Cath in place left chest wall, replacement 04/18/24, power port Dyslipidemia Depression Cervical spondylosis no ROM limits Barretts esophagus on protonix; follows with GI History of nickel allergy recent allergy testing showed she is not allergic to nickel Diabetes NIDDM History of anemia PTSD (post-traumatic stress disorder) RLS (restless legs syndrome) Hx of myocardial infarction (~2016) NSTEMI > BMS x2 to LAD Scoliosis CAD (coronary artery disease) BMS x2 to LAD Hx of post-polio syndrome HOLLY (obstructive sleep apnea) pt denies Dilation of thoracic aorta Echo 01/2024: Aortic root and proximal ascending aorta are normal sized Hx of deep venous thrombosis (~2017) DVT > PE Hx pulmonary embolism (~2017) DVT > PE Chronic pain syndrome Back Cyclic vomiting syndrome hx, no issues in "years" Hx of Clostridium difficile infection (~2016) Remote hx History of COVID-19 (~10/2021) treated inpatient at [facility]/Covid PNA > symptoms resolved Chronic heart failure with preserved ejection fraction (HFpEF) Follows with greg jarrett [facility] cardio Hypothyroidism Anxiety Hyperlipidemia duplicate Surgical History History of reverse total replacement of right shoulder joint 09/07/24, [facility] Hx of laminectomy and fusion "entire spine is fused(except cervical spine)" [facility] (Dr Catherine) 1989' Hx of dilation and curettage (06/2024) [facility]-- recent rectal and vaginal bleeding due to polyps Hx of knee surgery right-open meniscus repair History of anesthesia reaction Awareness with spinal surgery History of cataract surgery R/L S/P panniculectomy Hx of appendectomy History of tonsillectomy and adenoidectomy Hx of ovarian cystectomy x2 Hx of heart artery stent 2017- BMS x2 Hx of cardiac cath 2017- BMS x2 Hx of arthroscopy of shoulder Right shoulder, 01/2023, 06/2023, 10/23/23 ([facility]) Right shoulder arthroscopy, I&D of subacromial hematoma Hx of spinal surgery Multiple back surgeries History of colonoscopy History of esophagogastroduodenoscopy (EGD) History of back surgery bilateral SI Joint replacements (~2020/[facility]) S/P hardware removal Removal of all back hardware (~2002) [facility] Family History Mother Hypertension Father Hypertension Other No family history of adverse response to anesthesia Social History Smoking Status: Never smoker Second Hand Exposure: No; Do You Dip or Chew Tobacco: No; Hx Alcohol Use: No Hx Substance Use: No Preferred Language: Greek Communication Ability: Effective Visual Impairment: Limited Hearing Ability: Normal Emergency Veterinarian Required: No Beliefs That Will Affect Care: None marital status: Current Living Situation: Alone current occupational status: retired How many Children do You have: 2 Feels Safe at Home: Yes Assistive Devices: Cane and Walker Review of Systems A total of 10 systems reviewed and were otherwise negative Physical Exam Vital Signs Vital Signs - 24 hr 05/29/25 00:25 05/29/25 02:25 05/29/25 02:39 Temperature 36.9 C Temperature Source Oral Pulse Rate 69 86 Pulse Rate [Apical] 98 H Pulse Rhythm Regular Pulse Rhythm [Apical] Regular Pulse Strength Normal Pulse Strength [Apical] Normal Respiratory Rate 20 20 Respiratory Effort / Characteristics Non-Labored Spontaneous Non-Labored Spontaneous Respiratory Depth Normal Normal Respiratory Pattern Regular Regular Blood Pressure 175/107 H Blood Pressure [Right Arm] 181/95 H Blood Pressure Mean 129 Blood Pressure Mean [Right Arm] 123 Blood Pressure Position Lying Blood Pressure Position [Right Arm] Lying Pulse Oximetry 97 98 Oxygen Delivery Method Room Air Sepsis Recent Fever Within 48 Hours No Sepsis New/Unexplained Change in Mental Status N/A Sepsis Action Taken by Nursing No Action Required VITALS: Vitals are noted on the nurse's note and reviewed by myself. Vital signs stable. GENERAL: White female with vomiting, in no acute distress, nondiaphoretic, well- developed well-nourished. SKIN: Capillary reflex less than 2 seconds. HEENT: Normocephalic. PERRLA. EOMI. Nares patent. Mucous membranes moist. Neck is supple without nuchal rigidity. HEART: Regular rate and rhythm LUNGS: Clear to auscultation bilaterally without wheezes, rales or rhonchi. No retractions or accessory muscle use. ABDOMEN: Positive bowel sounds x 4. Normal tympanic percussion. Soft, tender mid abdomen, without masses or organomegaly. Sylvester sign negative. No guarding or rebound tenderness. no CVA tenderness MUSCULOSKELETAL: No gross musculoskeletal defects. NEURO: Patient was alert and oriented to person place and time. No focal neurological deficits. Course Administered Medications Discontinued Medications Sodium Chloride (Nss) 1,000 mls @ 999 mls/hr IV .Q1H1M ONE Stop: 05/29/25 02:03 Last Infusion: 05/29/25 02:15 Dose: Infused Documented By: Admin: 05/29/25 01:14 Dose: 999 mls/hr Documented By: JENNIFER Famotidine (Pepcid 20mg Iv Push) 20 mg in 5 mls @ 2.5 mls/min IV NOW STA Stop: 05/29/25 01:26 Last Admin: 05/29/25 01:35 Dose: 2.5 mls/min Documented By: EJNNIFER Acetaminophen (Ofirmev) 1,000 mg in 100 mls @ 400 mls/hr IV NOW STA Stop: 05/29/25 01:39 Last Infusion: 05/29/25 01:50 Dose: Infused Documented By: Admin: 05/29/25 01:35 Dose: 400 mls/hr Documented By: JENNIFER Ioversol (Optiray 320 100ml) 100 ml IV ONCE ONE Stop: 05/29/25 02:15 Last Admin: 05/29/25 02:14 Dose: 93 ml Documented By: CAN Metoclopramide HCl (Metoclopramide Hcl Inj 5 Mg/Ml 2 Ml Vial) 10 mg IV NOW STA Stop: 05/29/25 02:53 Last Admin: 05/29/25 02:56 Dose: 10 mg Documented By: DESIREE Ondansetron HCl (Ondansetron Inj 2 Mg/Ml 2 Ml Vial) 4 mg IV NOW STA Stop: 05/29/25 01:04 Last Admin: 05/29/25 01:14 Dose: 4 mg Documented By: JENNIFER Ondansetron HCl (Ondansetron Inj 2 Mg/Ml 2 Ml Vial) 4 mg IV NOW STA Stop: 05/29/25 01:26 Last Admin: 05/29/25 01:35 Dose: 4 mg Documented By: JENNIFER Medical Decision Making Medical Records Attestation: I reviewed the patient's medical records. Home Medications Current Medication List: was personally reviewed by me Laboratory Data Attestation: I reviewed the patient's lab results. 05/29/25 00:45 05/29/25 00:45 Lab Results 05/29/25 Range/Units 00:45 WBC 15.08 H (4.8-10.8) K/ul RBC 4.93 (4.20-5.40) M/uL Hgb 14.4 (12.0-16.0) g/dl Hct 42.2 (37.0-47.0) % MCV 85.6 (80.0-100.0) fL MCH 29.2 (25.0-34.0) pg MCHC 34.1 (32.0-36.0) g/dL RDW Std Deviation 45.3 (36.4-46.3) fL RDW Coeff of [place] 14.6 H (11.5-14.5) % Plt Count 308 (130-400) K/uL MPV 9.7 (9.4-12.4) fL Immature Gran % (Auto) 0.3 % Neut % (Auto) 88.0 % Lymph % (Auto) 10.0 % [place] % (Auto) 1.3 % Eos % (Auto) 0.1 % Baso % (Auto) 0.3 % Neut # (Auto) 13.28 H (1.40-6.50) K/uL Lymph # (Auto) 1.51 (1.20-3.40) K/uL [place] # (Auto) 0.20 (0.11-0.59) K/uL Eos # (Auto) 0.01 (0.00-0.50) K/uL Baso # (Auto) 0.04 (0.00-0.20) K/uL Immature Gran # (Auto) 0.04 (0.01-0.20) K/uL Sodium 139 (136-145) mmol/L Potassium 3.4 L (3.5-5.1) mmol/L Chloride 102 (98-107) mmol/L Carbon Dioxide 25 (21-32) mmol/L Anion Gap 12 H (3-11) BUN 16 (6-23) mg/dl Creatinine 0.78 (0.6-1.2) mg/dl Est Cr Clr Drug Dosing 62.4 ml/min eGFR 78.18 BUN/Creatinine Ratio 20.5 H (10-20) Glucose 213 H (70-99(Fasting)) mg/dl Calcium 9.4 (8.6-10.3) mg/dl Magnesium 1.7 (1.7-2.4) mg/dl Total Bilirubin 0.9 (0.2-1.0) mg/dl AST 28 (13-39) U/L ALT 25 (7-52) U/L Alkaline Phosphatase 108 H (34-104) U/L Troponin I High Sens 5.9 (0-14) pg/ml Total Protein 7.4 (6.0-8.3) gm/dl Albumin 4.3 (3.4-5.0) gm/dl Globulin 3.1 (2.5-4.0) gm/dl Albumin/Globulin Ratio 1.4 (0.9-2) Lipase 14 (11-82) U/L Imaging Data Attestation: I personally reviewed and interpreted this imaging study as follows: Radiologist's Impression: Abdomen/Pelvis CT 05/29/25 01:26 EXAM: CT abd pelvis IV con only CLINICAL HISTORY: Mid-abdominal pain. TECHNIQUE: CT of the abdomen and pelvis was performed, with the following protocol: axial images, and reconstructed coronal and sagittal images. Intravenous contrast (93 ml Optiray 320) was administered. One of the following dose reduction techniques was utilized for this exam: Automated exposure control, adjustment of the mA and/or kV according to patient size, and use of iterative reconstruction. COMPARISON: None. FINDINGS: Sections of the lower thorax show subpleural fibroatelectatic changes with emphysema in visualized lung linares. Small sliding hiatus hernia. Abdomen: Liver: Normal in size, and density. No focal lesions, cysts, or masses were identified. Gallbladder and Biliary System: The gallbladder is distended. No radiodense gallstones were identified. Pancreas: Mild pancreatic parenchymal atrophy. Spleen: Normal in size, shape, and density. No splenic lesions or masses were identified. Kidneys and Adrenal Glands: Both kidneys are normal in size. Few small non-obstructive calculi measuring up to 3 mm in right kidney. Few calculi also seen in left kidney, the largest measuring 13 mm in length and 8.5 mm in transverse dimension in inferior calyx extending up to the lateral margin of the renal pelvis. Small bilateral renal cortical cysts. No renal calculi or hydronephrosis. Adrenal glands are unremarkable. Pelvis: Urinary Bladder: Partially distended. A 20 x 15 mm iso enhancing lesion is seen along the right posterolateral wall of the uterus, likely representing subserosal fibroid. The rest of the uterus appears unremarkable. No definite ovarian lesions. Multiple phleboliths in pelvis. Peritoneal and Retroperitoneal Structures: No free fluid or abnormal fluid collections were identified within the abdomen or pelvis. Subcentimetric mesenteric nodes noted. Bowel: Uncomplicated colonic diverticulosis noted. Mild circumferential mural thickening of right hemicolon appears to be due to underdistention. No significant surrounding fat stranding. The visualized bowel loops are normal in caliber and appearance. Appendix is not well delineated. Bones and Soft Tissues: Severe degenerative changes in thoracolumbar spine with levoscoliosis and bony ankylosis. Diffuse osteopenic changes noted. Screw fixation of bilateral sacro-iliac joints. Calcified injection granulomas in gluteal regions. IMPRESSION: 1. Small non-obstructive stones (up to 3 mm) in the right kidney. 2. Multiple left renal stones, largest 13 x 8.5 mm in the inferior calyx, extending to the renal pelvis. 3. 20 x 15 mm iso-enhancing lesion on right posterolateral uterine wall, likely subserosal fibroid. 4. Rest of the findings as described above. Electronically signed by Yonas Perez 05-29-2025 03:41 AM Chest X-Ray 05/29/25 01:26 EXAM: XR chest 1V portable CLINICAL HISTORY: n/v TECHNIQUE: An X-ray image of the chest is obtained in AP projection. COMPARISON: Prior 03/31/2025 FINDINGS: Adequate position of the left subclavian vein catheter is located with its tip below the level of the byron at the level of the cavo-atrial junction. unchanged. Pulmonary Parenchyma: No evidence of consolidation, collapse, or focal opacities. No pulmonary nodules are identified. Blunted left costophrenic angle; pleural effusion or pleural thickening. Heart and Mediastinum: Mild cardiomegaly with prominent bilateral vascular shadows No mediastinal widening or masses. No hilar or mediastinal lymphadenopathy. Bony Thorax: Bony thorax appears intact without fractures or deformities. Right sided thoracic scoliosis. Soft Tissues: Soft tissues overlying the chest wall are unremarkable. Sternotomy wires. IMPRESSION: No time interval changes regarding the following: Mild cardiomegaly with prominent bilateral vascular shadows Blunted left costophrenic angle; pleural effusion or pleural thickening. Adequate position of the left subclavian vein catheter Electronically signed by Yonas Perez 05-29-2025 03:18 AM MDM Narrative Prior records/ancillary studies reviewed. Triage Nursing notes reviewed. Additional history obtained from nursing The patient's history was concerning for nausea vomiting and abdominal pain. Differential diagnosis: Etiologies such as cyclic vomiting, appendicitis, diverticulitis, PUD, biliary pathology, UTI, pancreatitis, obstruction, mesenteric ischemia, aortic pathology, infections, inflammatory bowel disease, renal colic, as well as others were entertained. Physical examination findings: As above. ER treatment provided: An order was placed for continuous cardiac monitoring. The monitor shows a rate of 60-100 with a sinus rhythm per my Independent interpretation. Zofran, Pepcid, IV fluids On reassessment the patient felt better. Diagnostics interpreted by me: ECG: Ordered for upper abdominal pain EKG: Poor baseline, Q waves in inferior leads, no acute ST-T wave changes, rate of 70. Impression normal sinus rhythm poor baseline Q waves in inferior leads independently interpreted by myself The labs Independently Interpreted by myself revealed mild hyperglycemia without DKA Mild leukocytosis, most likely marginalization from vomiting, stable H&H Imaging studies: Imaging was reviewed and read by radiology Consultation: A consultation was placed with the hospitalist. The case was discussed and diagnostics were reviewed. The patient was evaluated in the ER for further treatment. Exam and history seem consistent with cyclic vomiting. This is recurrent for the patient. She continued to vomit despite multiple rounds of antiemetics. Medicine Was Consulted and the Case Was Discussed. She Will Be Evaluated for Admission. By the evaluation outlined above emergent etiologies such as appendicitis, diverticulitis, PUD, biliary pathology, pancreatitis, obstruction, mesenteric ischemia, aortic pathology, inflammatory bowel disease, renal colic, as well as others were deemed relatively unlikely. The pt informed about the findings as listed above. All questions were answered and pleased with the treatment. The chart was completed utilizing [employer] Speech voice recognition software. Grammatical errors, random word insertions, pronoun errors, and incomplete sentences are an occassional consequence of this system due to software limitations, ambient noise, and hardware issues. Any formal questions or concerns about the content, text, or information contained within the body of this dictation should be directly addressed to the physician assistant chief nursing officer for clarification. Impression & Plan Intractable nausea and vomiting, Abdominal pain, acute Discharge Plan Visit Data Chief Complaint: Vomiting Stated Complaint: Vomiting ED Provider: Poppy Bell ED Midlevel Provider: Flor Garcia Discharge Problem: Intractable nausea and vomiting, Abdominal pain, acute Patient Disposition: Being Evaluated by Hospitalist Condition: Fair Forms Stand Alone Forms: My [employer] Prescriptions Prescriptions: No Action pantoprazole 40 mg tablet,delayed release (DR/EC) 40 mg PO BID Qty: 60 2RF Patient Comments: only takes once daily QAM oxycodone 5 mg tablet 5 mg PO TID MDD 4 tablets PRN (Reason: pain) Qty: 30 0RF nitroglycerin [Nitrostat] 0.3 mg Tablet, Sublingual 0.3 mg sublingual DIRECTED PRN (Reason: Chest Pain) Patient Comments: 05/18- no fill history unable to verify Rx Instructions: NEEDED FOR CHEST PAIN : ONE TABLET UNDER THE TONGUE EVERY 5 MINUTES UP TO 3 DOSES. olopatadine 0.2 % Drops 0 drp ophthalmic (eye) QAM Rx Instructions: 05/18- otc unable to verify furosemide 20 mg tablet 40 mg PO QAM Rx Instructions: may take additional dose as directed for edema. atorvastatin [Lipitor] 40 mg Tablet 40 mg PO QAM levothyroxine 75 mcg Tablet 75 mcg PO DAILYBB Rx Instructions: take before breakfast or other meds buspirone 10 mg tablet 10 mg PO BID Patient Comments: 05/18- last filled 02/10 90 day supply #180 promethazine 25 mg Tablet 25 mg PO Q6H PRN (Reason: Nausea) tizanidine 4 mg tablet 4 mg PO BID PRN (Reason: Muscle Spasm) Eliquis 5 mg tablet 5 mg PO BID Hold Instructions: Resume on 02/23/24. Resume once allowed by your primary care physician Patient Comments: was restarted, but will stop for sx that is on 04/18. ondansetron 4 mg tablet,disintegrating 4 mg PO Q6H PRN (Reason: nausea and vomiting) Qty: 10 0RF metoprolol succinate 100 mg Tablet Extended Release 24 Hr 100 mg PO QAM Ozempic 2 mg/dose (8 mg/3 mL) Pen Injector 2 mg SUBCUT WK Rx Instructions: WEDNESDAYS trazodone 150 mg tablet 300 mg PO HS aspirin 81 mg Tablet,Delayed Release (Dr/Ec) 81 mg PO QAM Qty: 0 0RF Patient Comments: 05/18- otc unable to verify epinephrine [EpiPen] 0.3 mg/0.3 mL Auto-Injector 0.3 mg IM DIRECTED PRN (Reason: Allergic Reaction) Patient Comments: 05/18- no fill history unable to verify lidocaine 5 % Adhesive Patch,Medicated 1 patch transdermal HS Qty: 30 0RF Patient Comments: 05/18- otc unable to verify potassium chloride 10 mEq tablet,ER particles/crystals 10 meq PO DAILY Referrals Referrals: Svetlana Jacobs DO [Primary Care Provider] -
[2025-05-29] MEDS: ACETAMINOPHEN 1,000 MG/100 ML VIAL IV STA (01:35)
[2025-05-29] MEDS: FAMOTIDINE 20MG IV PUSH 20 MG/5 ML SYR IV STA (01:35)
[2025-05-29 01:42] LABS: Hematocrit (blood only) 42.2 % (37.0-47.0); Hemoglobin 14.4 g/dl (12.0-16.0); Immature Granulocytes # (auto) 0.04 K/uL (0.01-0.20); Immature Granulocytes % (auto) 0.3 %; Mean Corpuscular Hemoglobin 29.2 pg (25.0-34.0); Mean Corpuscular Volume 85.6 fL (80.0-100.0); Platelet Count 308 K/uL (130-400); RDW Standard Deviation 45.3 fL (36.4-46.3); Red Blood Count 4.93 M/uL (4.20-5.40); White Blood Count 15.08 K/ul (4.8-10.8)
[2025-05-29 02:00] LABS: Alanine Aminotransferase 25.0 U/L (7-52); Albumin Globulin Ratio 1.4 (0.9-2); Alkaline Phosphatase 108.0 U/L (34-104); Anion Gap 12.0 (3-11); Bilirubin,Total 0.9 mg/dl (0.2-1.0); Blood Urea Nitrogen 16.0 mg/dl (6-23); Calcium 9.4 mg/dl (8.6-10.3); Carbon Dioxide 25.0 mmol/L (21-32); Chloride 102.0 mmol/L (98-107); Creatinine Clr Calc Pharmacy 62.4 ml/min; Globulin 3.1 gm/dl (2.5-4.0); Glucose 213.0 mg/dl (70-99(Fasting)); Lipase 14.0 U/L (11-82); Magnesium 1.7 mg/dl (1.7-2.4); Potassium 3.4 mmol/L (3.5-5.1); Sodium 139.0 mmol/L (136-145); Total Protein 7.4 gm/dl (6.0-8.3)
[2025-05-29] MEDS: OPTIRAY 320 100ml IV ONE (02:14)
[2025-05-29] MEDS: METOCLOPRAMIDE HCL INJ 5 MG/ML 2 ML VIAL IV STA (02:56)
--- NOTE | 2025-05-29 03:18 | XRay Report ---
EXAM: XR chest 1V portable CLINICAL HISTORY: n/v TECHNIQUE: An X-ray image of the chest is obtained in AP projection. COMPARISON: Prior 03/31/2025 FINDINGS: Adequate position of the left subclavian vein catheter is located with its tip below the level of the byron at the level of the cavo-atrial junction. unchanged. Pulmonary Parenchyma: No evidence of consolidation, collapse, or focal opacities. No pulmonary nodules are identified. Blunted left costophrenic angle; pleural effusion or pleural thickening. Heart and Mediastinum: Mild cardiomegaly with prominent bilateral vascular shadows No mediastinal widening or masses. No hilar or mediastinal lymphadenopathy. Bony Thorax: Bony thorax appears intact without fractures or deformities. Right sided thoracic scoliosis. Soft Tissues: Soft tissues overlying the chest wall are unremarkable. Sternotomy wires. IMPRESSION: No time interval changes regarding the following: Mild cardiomegaly with prominent bilateral vascular shadows Blunted left costophrenic angle; pleural effusion or pleural thickening. Adequate position of the left subclavian vein catheter Electronically signed by Yonas Perez 05-29-2025 03:18 AM
--- NOTE | 2025-05-29 03:41 | CT Scan Report ---
EXAM: CT abd pelvis IV con only CLINICAL HISTORY: Mid-abdominal pain. TECHNIQUE: CT of the abdomen and pelvis was performed, with the following protocol: axial images, and reconstructed coronal and sagittal images. Intravenous contrast (93 ml Optiray 320) was administered. One of the following dose reduction techniques was utilized for this exam: Automated exposure control, adjustment of the mA and/or kV according to patient size, and use of iterative reconstruction. COMPARISON: None. FINDINGS: Sections of the lower thorax show subpleural fibroatelectatic changes with emphysema in visualized lung linares. Small sliding hiatus hernia. Abdomen: Liver: Normal in size, and density. No focal lesions, cysts, or masses were identified. Gallbladder and Biliary System: The gallbladder is distended. No radiodense gallstones were identified. Pancreas: Mild pancreatic parenchymal atrophy. Spleen: Normal in size, shape, and density. No splenic lesions or masses were identified. Kidneys and Adrenal Glands: Both kidneys are normal in size. Few small non-obstructive calculi measuring up to 3 mm in right kidney. Few calculi also seen in left kidney, the largest measuring 13 mm in length and 8.5 mm in transverse dimension in inferior calyx extending up to the lateral margin of the renal pelvis. Small bilateral renal cortical cysts. No renal calculi or hydronephrosis. Adrenal glands are unremarkable. Pelvis: Urinary Bladder: Partially distended. A 20 x 15 mm iso enhancing lesion is seen along the right posterolateral wall of the uterus, likely representing subserosal fibroid. The rest of the uterus appears unremarkable. No definite ovarian lesions. Multiple phleboliths in pelvis. Peritoneal and Retroperitoneal Structures: No free fluid or abnormal fluid collections were identified within the abdomen or pelvis. Subcentimetric mesenteric nodes noted. Bowel: Uncomplicated colonic diverticulosis noted. Mild circumferential mural thickening of right hemicolon appears to be due to underdistention. No significant surrounding fat stranding. The visualized bowel loops are normal in caliber and appearance. Appendix is not well delineated. Bones and Soft Tissues: Severe degenerative changes in thoracolumbar spine with levoscoliosis and bony ankylosis. Diffuse osteopenic changes noted. Screw fixation of bilateral sacro-iliac joints. Calcified injection granulomas in gluteal regions. IMPRESSION: 1. Small non-obstructive stones (up to 3 mm) in the right kidney. 2. Multiple left renal stones, largest 13 x 8.5 mm in the inferior calyx, extending to the renal pelvis. 3. 20 x 15 mm iso-enhancing lesion on right posterolateral uterine wall, likely subserosal fibroid. 4. Rest of the findings as described above. Electronically signed by Yonas Perez 05-29-2025 03:41 AM
[2025-05-29] MEDS ORDERED: PROMETHAZINE 12.5 MG/50.5 ML BAG IV PRN (04:02)
[2025-05-29] MEDS: PROMETHAZINE 12.5 MG/50.5 ML BAG IV STA (04:38)
--- NOTE | 2025-05-29 04:44 | History & Physical Report ---
Date of Service May 29, 2025 Assessment & Plan (1) Asymptomatic hypertensive urgency: Plan: Assessment and plan below following discussion of case with ED provider and reviewing patient history/pertinent normal/abnormal diagnostic test results. Hypertensive urgency Secondary to acute stomach upset History cyclical vomiting as per records chronic diastolic heart failure (EF 55 to 60%, TTE 2024), patient on the dry side hx HOLLY CPAP noncompliance CAD sp stenting/PVD (ascending thoracic aorta enlargement) hxDVT on Eliquis DM2 diet-controlled, well-controlled as of recent hemoglobin A1c of 6.1 from March 2025 hypothyroidism, euthyroid as of recent outpatient TSH chronic pain/opioid abuse as per records Hypokalemia secondary to emesis/home diuretic Rx OBS Admit to medical telemetry IV Lopressor 1 dose now Analgesia Antiemetics Emend trial if without response to above management GI consult if with intractable emesis symptoms, history of cyclical vomiting Replace potassium, hold home diuretic until patient euvolemic ISS BG goal 101427, carb count coverage DVT prophylaxis. Limundo Full code Text document was generated using Trot voice recognition software. It may contain grammatical or spelling errors. Kindly contact undersigned for clarification of any documentation item in question. History of Present Illness Chief Complaint: Abdominal pain, nausea vomiting Primary Care Provider: Svetlana Jacobs DO History obtained from patient and records. Medical history significant for chronic diastolic heart failure (EF 55 to 60%, TTE 2024), HOLLY CPAP noncompliance, CAD sp stenting, PVD, HTN, hyperlipidemia,DVT on Eliquis, DM2 diet-controlled, hypothyroidism, GERD, history of cyclical vomiting as per records, PTSD/mood disorder, post polio syndrome/scoliosis as per records, chronic pain, opioid abuse as per records. Recent confinement last month for headache and UTI. 2 days history of generalized abdominal pain associated with nausea, vomiting. Denies headache, chest pain, SOB. No diarrhea. Good BM as per patient. No fever, no chills. Intractable nausea/emesis symptoms at the ER. 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 Allergies Allergy/AdvReac Type Severity Reaction Status Date / Time adhesive tape Allergy Intermediate Skin Verified 05/29/25 08:10 irritation latex Allergy Intermediate Rash Verified 05/29/25 08:10 aspirin AdvReac Intermediate Bleeding Verified 05/29/25 08:10 ulcers (full dose ASA) NSAIDS (Non-Steroidal AdvReac Intermediate Hx Verified 05/29/25 08:10 Anti-Inflamma bleeding ulcers (advised to avoid) Home Medications Medication Instructions Recorded Confirmed Type atorvastatin 40 mg tablet (Lipitor) 40 mg PO QAM 12/13/18 05/29/25 History levothyroxine 75 mcg tablet 75 mcg PO DAILYBB 12/13/18 05/29/25 History promethazine 25 mg tablet 25 mg PO Q6H PRN Nausea 05/12/19 05/29/25 History nitroglycerin 0.3 mg sublingual 0.3 mg sublingual DIRECTED PRN 05/23/19 05/29/25 History tablet (Nitrostat) Chest Pain olopatadine 0.2 % eye drops 1 drp ophthalmic (eye) QAM 05/23/19 05/29/25 History tizanidine 4 mg tablet 4 mg PO BID PRN Muscle Spasm 04/03/20 05/29/25 History furosemide 20 mg tablet 40 mg PO QAM 10/05/20 05/29/25 History apixaban 5 mg tablet (Eliquis) 5 mg PO BID 10/11/21 05/29/25 History metoprolol succinate 100 mg 100 mg PO QAM 01/20/23 05/29/25 History tablet,extended release 24 hr semaglutide 2 mg/dose (8 mg/3 mL) 2 mg subcut WK 01/20/23 05/29/25 History subcutaneous pen injector (Ozempic) buspirone 10 mg tablet 10 mg PO BID 02/20/23 05/29/25 History ondansetron 4 mg disintegrating 4 mg PO Q6H PRN nausea and 10/26/23 05/29/25 Rx tablet vomiting #10 tabs pantoprazole 40 mg tablet,delayed 40 mg PO BID #60 tabs 12/21/23 05/29/25 Rx release aspirin 81 mg tablet,delayed 81 mg PO QAM #0 tabs 02/19/24 05/29/25 Rx release trazodone 150 mg tablet 300 mg PO HS 12/28/24 05/29/25 History epinephrine 0.3 mg/0.3 mL 0.3 mg IM DIRECTED PRN Allergic 03/31/25 05/29/25 History injection, auto-injector (EpiPen) Reaction lidocaine 5 % topical patch 1 patch transdermal HS #30 ea 04/06/25 05/29/25 Rx potassium chloride 10 mEq 10 meq PO QAM 05/18/25 05/29/25 History tablet,extended release(part/cryst) oxycodone 5 mg tablet 5 mg PO Q6H PRN pain 05/29/25 05/29/25 History Past Med/Surg History Problem List (Updated 05/29/25 @ 10:29 by Latrell Kraft MD) Asymptomatic hypertensive urgency Abdominal pain, acute (Acute) Intractable nausea and vomiting (Acute) Headache (Acute) Acute migraine Failure of outpatient treatment (Acute) Cervical disc disease (Acute) Right shoulder pain (Acute) Cervical radiculopathy Chronic pain after musculoskeletal injury Acute hypotension Status post reverse total arthroplasty of right shoulder History of nickel allergy Right rotator cuff tear arthropathy Chronic right shoulder pain Proctocolitis (Acute) 02/16/24 Postmenopausal bleeding 02/14/24 Right shoulder pain History of arthroscopy of right shoulder 10/23/23 ([facility]) Right shoulder arthroscopy, I&D of subacromial hematoma Encounter for pre-operative examination History of arthroscopy of right shoulder rt shoulder, 06/2023 Dilation of thoracic aorta mild per cardio; monitoring HOLLY (obstructive sleep apnea) noncompliant with CPAP per cardio note History of post-polio syndrome Orthostatic hypotension 07/02/23 Dysfunction of right rotator cuff History of rotator cuff surgery Barretts esophagus on protonix; follows with GI Peroneus brevis tendinitis Hypomagnesemia (Acute) 04/16/23 History of pulmonary embolism Non-specific colitis 04/06/23 S/P right rotator cuff repair Diabetes mellitus, type 2 06/26/23 Ha1c: 5.8% Constipation 01/14/23 Rotator cuff tear Rotator cuff tendinitis DVT (deep venous thrombosis) (Acute) Migraine (Acute) Generalized weakness (Acute) 04/11/20 Ambulatory dysfunction Chronic pain (Chronic) History of vascular access device (Chronic) Left upper chest port (*not a power port*) Mood disorder (Chronic) CAD (coronary artery disease) 2 BMS to LAD (2017) History of anesthesia reaction (Chronic) Awareness with spinal surgeries Ovarian cyst (Chronic) X 2 Degenerative disc disease (Chronic) History of laminectomy (Chronic) and fusion "entire spine is fused(except cervical spine)" [facility] (Dr Catherine) 1989' Fusion of spine (Chronic) LUMBAR Osteoarthritis (Chronic) History of appendectomy (Chronic) Colitis (Chronic) 02/15/24 Anemia (Chronic) History of tonsillectomy (Chronic) History of adenoidectomy (Chronic) Post traumatic stress disorder (Chronic) Depression Restless leg syndrome (Chronic) Migraine (Chronic) Hx, no recent issues Deep vein thrombosis (Chronic) ~2014, unknown cause Pulmonary embolism (Chronic) ~2014 (UNSURE OF REASON) History of heart artery stent (Chronic) 2017-x2 STENTS PLACED AT [facility] (DR. DAVILA) Myocardial Infarction (Chronic) NSTEMI 2017; s/p 2 BMS to LAD Hypertension H/O ovarian cystectomy (Chronic) x2 H/O repair of right rotator cuff (Chronic) H/O spinal fusion (Chronic) Multiple Dyslipidemia (Chronic) Cervical spondylolysis (Chronic) Scoliosis (Chronic) Medical History History of blood transfusion Osteoarthritis History of colitis Migraine Hx, no recent issues HTN (hypertension) h/o orthostatic hypotension in 2022; controlled, stable per pt Port-A-Cath in place left chest wall, replacement 04/18/24, power port Dyslipidemia Depression Cervical spondylosis no ROM limits Barretts esophagus on protonix; follows with GI History of nickel allergy recent allergy testing showed she is not allergic to nickel Diabetes NIDDM History of anemia PTSD (post-traumatic stress disorder) RLS (restless legs syndrome) Hx of myocardial infarction (~2016) NSTEMI > BMS x2 to LAD Scoliosis CAD (coronary artery disease) BMS x2 to LAD Hx of post-polio syndrome HOLLY (obstructive sleep apnea) pt denies Dilation of thoracic aorta Echo 01/2024: Aortic root and proximal ascending aorta are normal sized Hx of deep venous thrombosis (~2017) DVT > PE Hx pulmonary embolism (~2018) DVT > PE Chronic pain syndrome Back Cyclic vomiting syndrome hx, no issues in "years" Hx of Clostridium difficile infection (~2016) Remote hx History of COVID-19 (~10/2021) treated inpatient at [facility]/Covid PNA > symptoms resolved Chronic heart failure with preserved ejection fraction (HFpEF) Follows with greg jarrett [facility] cardio Hypothyroidism Anxiety Hyperlipidemia duplicate Surgical History History of reverse total replacement of right shoulder joint 09/07/24, [facility] Hx of laminectomy and fusion "entire spine is fused(except cervical spine)" [facility] (Dr Catherine) Hx of dilation and curettage (06/2024) [facility]-- recent rectal and vaginal bleeding due to polyps Hx of knee surgery right-open meniscus repair History of anesthesia reaction Awareness with spinal surgery History of cataract surgery R/L S/P panniculectomy Hx of appendectomy History of tonsillectomy and adenoidectomy Hx of ovarian cystectomy x2 Hx of heart artery stent 2016- BMS x2 Hx of cardiac cath BMS x2 Hx of arthroscopy of shoulder Right shoulder, 01/2023, 06/2023, 10/23/23 ([facility]) Right shoulder arthroscopy, I&D of subacromial hematoma Hx of spinal surgery Multiple back surgeries History of colonoscopy History of esophagogastroduodenoscopy (EGD) History of back surgery bilateral SI Joint replacements (~2020/[facility] [place]) S/P hardware removal Removal of all back hardware (~2002) [facility] Family History Mother Hypertension Father Hypertension Other No family history of adverse response to anesthesia Social History Smoking Status: Never smoker Second Hand Exposure: No; Do You Dip or Chew Tobacco: No; Hx Alcohol Use: No Hx Substance Use: No Preferred Language: [place] Communication Ability: Effective Visual Impairment: Limited Hearing Ability: Normal 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 Beliefs That Will Affect Care: None marital status: Current Living Situation: Alone current occupational status: retired How many Children do You have: 2 Feels Safe at Home: Yes Assistive Devices: Cane and Walker Review of Systems Review of Systems: As per HPI, all other systems reviewed and negative Physical Exam Physical Exam: GENERAL: uncomfortable, obese, dry heaving, no respiratory distress SKIN: Normal color, warm HEENT: [place] palpebral conjunctivae, no ptosis, dry buccal mucosa NECK : Supple, short neck, no tenderness CHEST : Decreased breath sounds, no tenderness HEART : RRR, no obvious murmurs ABDOMEN: Some distention, epigastric tenderness EXTREMITIES : Minimal LE swelling, no LE tenderness NEUROLOGIC : Coherent, no facial asymmetry, no other gross focality Results & Data Results & Data Vital Signs (Past 12 Hours) Vital Signs Temp Pulse Pulse Resp BP BP Pulse Ox 05/29/25 02:39 86 05/29/25 02:25 98 H 20 181/95 H 98 05/29/25 00:25 36.9 C 69 20 175/107 H 97 O2 Del Method 05/29/25 02:39 05/29/25 02:25 05/29/25 00:25 Room Air Laboratory Results Laboratory Results WBC 15.08 K/ul (4.8-10.8) H 05/29/25 00:45 RBC 4.93 M/uL (4.20-5.40) 05/29/25 00:45 Hgb 14.4 g/dl (12.0-16.0) 05/29/25 00:45 Hct 42.2 % (37.0-47.0) 05/29/25 00:45 MCV 85.6 fL (80.0-100.0) 05/29/25 00:45 MCH 29.2 pg (25.0-34.0) 05/29/25 00:45 MCHC 34.1 g/dL (32.0-36.0) 05/29/25 00:45 RDW Std Deviation 45.3 fL (36.4-46.3) 05/29/25 00:45 RDW Coeff of [place] 14.6 % (11.5-14.5) H 05/29/25 00:45 Plt Count 308 K/uL (130-400) 05/29/25 00:45 MPV 9.7 fL (9.4-12.4) 05/29/25 00:45 Immature Gran % (Auto) 0.3 % 05/29/25 00:45 Neut % (Auto) 88.0 % 05/29/25 00:45 Lymph % (Auto) 10.0 % 05/29/25 00:45 [place] % (Auto) 1.3 % 05/29/25 00:45 Eos % (Auto) 0.1 % 05/29/25 00:45 Baso % (Auto) 0.3 % 05/29/25 00:45 Neut # (Auto) 13.28 K/uL (1.40-6.50) H 05/29/25 00:45 Lymph # (Auto) 1.51 K/uL (1.20-3.40) 05/29/25 00:45 [place] # (Auto) 0.20 K/uL (0.11-0.59) 05/29/25 00:45 Eos # (Auto) 0.01 K/uL (0.00-0.50) 05/29/25 00:45 Baso # (Auto) 0.04 K/uL (0.00-0.20) 05/29/25 00:45 Immature Gran # (Auto) 0.04 K/uL (0.01-0.20) 05/29/25 00:45 Sodium 139 mmol/L (136-145) 05/29/25 00:45 Potassium 3.4 mmol/L (3.5-5.1) L 05/29/25 00:45 Chloride 102 mmol/L (98-107) 05/29/25 00:45 Carbon Dioxide 25 mmol/L (21-32) 05/29/25 00:45 Anion Gap 12 (3-11) H 05/29/25 00:45 BUN 16 mg/dl (6-23) 05/29/25 00:45 Creatinine 0.78 mg/dl (0.6-1.2) 05/29/25 00:45 Est Cr Clr Drug Dosing 62.4 ml/min 05/29/25 00:45 eGFR 78.18 05/29/25 00:45 BUN/Creatinine Ratio 20.5 (10-20) H 05/29/25 00:45 Glucose 213 mg/dl (70-99(Fasting)) H 05/29/25 00:45 Calcium 9.4 mg/dl (8.6-10.3) 05/29/25 00:45 Magnesium 1.7 mg/dl (1.7-2.4) 05/29/25 00:45 Total Bilirubin 0.9 mg/dl (0.2-1.0) 05/29/25 00:45 AST 28 U/L (13-39) 05/29/25 00:45 ALT 25 U/L (7-52) 05/29/25 00:45 Alkaline Phosphatase 108 U/L (34-104) H 05/29/25 00:45 Troponin I High Sens 5.9 pg/ml (0-14) 05/29/25 00:45 Total Protein 7.4 gm/dl (6.0-8.3) 05/29/25 00:45 Albumin 4.3 gm/dl (3.4-5.0) 05/29/25 00:45 Globulin 3.1 gm/dl (2.5-4.0) 05/29/25 00:45 Albumin/Globulin Ratio 1.4 (0.9-2) 05/29/25 00:45 Lipase 14 U/L (11-82) 05/29/25 00:45 Impressions Abdomen/Pelvis CT 05/29/25 01:26 EXAM: CT abd pelvis IV con only CLINICAL HISTORY: Mid-abdominal pain. TECHNIQUE: CT of the abdomen and pelvis was performed, with the following protocol: axial images, and reconstructed coronal and sagittal images. Intravenous contrast (93 ml Optiray 320) was administered. One of the following dose reduction techniques was utilized for this exam: Automated exposure control, adjustment of the mA and/or kV according to patient size, and use of iterative reconstruction. COMPARISON: None. FINDINGS: Sections of the lower thorax show subpleural fibroatelectatic changes with emphysema in visualized lung linares. Small sliding hiatus hernia. Abdomen: Liver: Normal in size, and density. No focal lesions, cysts, or masses were identified. Gallbladder and Biliary System: The gallbladder is distended. No radiodense gallstones were identified. Pancreas: Mild pancreatic parenchymal atrophy. Spleen: Normal in size, shape, and density. No splenic lesions or masses were identified. Kidneys and Adrenal Glands: Both kidneys are normal in size. Few small non-obstructive calculi measuring up to 3 mm in right kidney. Few calculi also seen in left kidney, the largest measuring 13 mm in length and 8.5 mm in transverse dimension in inferior calyx extending up to the lateral margin of the renal pelvis. Small bilateral renal cortical cysts. No renal calculi or hydronephrosis. Adrenal glands are unremarkable. Pelvis: Urinary Bladder: Partially distended. A 20 x 15 mm iso enhancing lesion is seen along the right posterolateral wall of the uterus, likely representing subserosal fibroid. The rest of the uterus appears unremarkable. No definite ovarian lesions. Multiple phleboliths in pelvis. Peritoneal and Retroperitoneal Structures: No free fluid or abnormal fluid collections were identified within the abdomen or pelvis. Subcentimetric mesenteric nodes noted. Bowel: Uncomplicated colonic diverticulosis noted. Mild circumferential mural thickening of right hemicolon appears to be due to underdistention. No significant surrounding fat stranding. The visualized bowel loops are normal in caliber and appearance. Appendix is not well delineated. Bones and Soft Tissues: Severe degenerative changes in thoracolumbar spine with levoscoliosis and bony ankylosis. Diffuse osteopenic changes noted. Screw fixation of bilateral sacro-iliac joints. Calcified injection granulomas in gluteal regions. IMPRESSION: 1. Small non-obstructive stones (up to 3 mm) in the right kidney. 2. Multiple left renal stones, largest 13 x 8.5 mm in the inferior calyx, extending to the renal pelvis. 3. 20 x 15 mm iso-enhancing lesion on right posterolateral uterine wall, likely subserosal fibroid. 4. Rest of the findings as described above. Electronically signed by Yonas Perez 05-29-2025 03:41 AM Chest X-Ray 05/29/25 01:26 EXAM: XR chest 1V portable CLINICAL HISTORY: n/v TECHNIQUE: An X-ray image of the chest is obtained in AP projection. COMPARISON: Prior 03/31/2025 FINDINGS: Adequate position of the left subclavian vein catheter is located with its tip below the level of the byron at the level of the cavo-atrial junction. unchanged. Pulmonary Parenchyma: No evidence of consolidation, collapse, or focal opacities. No pulmonary nodules are identified. Blunted left costophrenic angle; pleural effusion or pleural thickening. Heart and Mediastinum: Mild cardiomegaly with prominent bilateral vascular shadows No mediastinal widening or masses. No hilar or mediastinal lymphadenopathy. Bony Thorax: Bony thorax appears intact without fractures or deformities. Right sided thoracic scoliosis. Soft Tissues: Soft tissues overlying the chest wall are unremarkable. Sternotomy wires. IMPRESSION: No time interval changes regarding the following: Mild cardiomegaly with prominent bilateral vascular shadows Blunted left costophrenic angle; pleural effusion or pleural thickening. Adequate position of the left subclavian vein catheter Electronically signed by Yonas Perez 05-29-2025 03:18 AM Diagnostic Findings EKG as per my interpretation :Rate 70, NSR, LAD, LAFB, T wave abnormalities inferior leads
[2025-05-29] MEDS: METOPROLOL TARTRATE 1 MG/ML VIAL IV STA (05:08)
[2025-05-29] MEDS: POTASSIUM CHLORIDE / WTR 10 MEQ/100 ML PLCT IV SCH (05:09)
[2025-05-29] MEDS: FOSAPREPITANT DIMEGLUMINE 150 MG in SODIUM CHLORIDE 0.9% 145 ML IV ONE (05:42)
[2025-05-29 06:16] LABS: Appearance Urine Clear (Clear); Bacteria Urine Automated None Seen (None Seen); Cast Urine Automated 0-2 /lpf (0-2); Epithelial Cell Urine Auto 0-2 /hpf (0-2); Glucose Urine UA Trace (Negative); WBC Urine Automated 0-5 /hpf (0-5)
[2025-05-29] MEDS: LACTATED RINGER'S 1,000 ML IV STA (06:20)
[2025-05-29] MEDS ORDERED: GLUCAGON FOR INJ 1 MG VIAL SQ PRN (06:44)
[2025-05-29] MEDS ORDERED: CARBOHYDRATES FOR HYPOGLYCEMIA PO PRN (06:44)
[2025-05-29] MEDS ORDERED: DEXTROSE 50% 50 ML SYRINGE IV PRN (06:44)
[2025-05-29] MEDS ORDERED: GLUCOSE 40% GEL 15 GM TUBE PO PRN (06:44)
[2025-05-29] MEDS ORDERED: GLUCOSE 10 TAB/TUBE PO PRN (06:44)
--- NOTE | 2025-05-29 08:37 | Emergency Department Note ---
ED Visit Note I was consulted by the Advanced Practice Provider. I personally made/approved the management plan and take responsibility for the patient management. I performed a substantive portion of the visit. This includes the aspects of: Personally seeing the patient -MDM -I independently interpreted the following studies: portable chest x-ray: No new or acute findings. .
[2025-05-29] MEDS: INSULIN ASPART PER UNIT CHARGE SC SCH (08:46)
[2025-05-29] MEDS: ONDANSETRON INJ 2 MG/ML 2 ML VIAL IV PRN (09:55)
[2025-05-29] MEDS: APIXABAN 5 MG TABLET PO SCH (09:56)
[2025-05-29] MEDS: ATORVASTATIN 40 MG TAB PO SCH (09:56)
[2025-05-29] MEDS: ASPIRIN 81 MG ECTAB PO SCH (09:56)
[2025-05-29] MEDS: busPIRone 5 MG TAB PO SCH (09:57)
[2025-05-29] MEDS: METOPROLOL SUCC 50MG EXT REL TAB PO SCH (09:57)
[2025-05-29] MEDS: HALOPERIDOL LACTATE 5 MG/ML 1 ML VIAL IV PRN (11:31)
--- NOTE | 2025-05-29 11:50 | Hospitalist Progress Note ---
Date of Service May 29, 2025 Assessment & Plan (1) Cyclical vomiting associated with migraine: (2) Uncontrolled hypertension: (3) Chronic pain syndrome: (4) Diabetes mellitus type 2, controlled: (5) HOLLY (obstructive sleep apnea): (6) Hypothyroidism: (7) Chronic diastolic congestive heart failure: (8) History of venous thromboembolism: Plan Patient continues with pretty severe nausea, unable to take anything by mouth. History of cyclic vomiting but has not been a problem in the most recent past. Trial of Haldol to manage cyclic vomiting, Zofran as needed Most recent blood pressure significantly improved with management of some of her other symptoms Continue chronic anticoagulation for history of VTE Advance diet as tolerated Activity Admission and Anticipated Discharge Date Admission Date: May 29, 2025 Subjective Patient reports still significant nausea and headache. Physical Exam Physical Exam: Constitutional: Alert, ill in appearance but not toxic HEENT: Mucous membranes moist. Lungs: Clear to auscultation, decreased, no wheezes rales or rhonchi CV: S1-S2, regular Abdomen: Soft, mild diffuse tenderness, nondistended Extremities: No significant edema Neuro: No focal deficits Psych: Cooperative, normal mood Results & Data Results & Data Vital Signs (Past 12 Hours) Vital Signs Temp Pulse Pulse Resp BP BP Pulse Ox 05/29/25 10:14 70 18 118/63 95 05/29/25 08:44 05/29/25 07:31 90 05/29/25 06:30 90 22 184/106 H 05/29/25 06:27 86 05/29/25 06:03 172/111 H 05/29/25 06:01 93 H 172/111 H 05/29/25 06:00 91 H 20 184/106 H 05/29/25 05:30 84 23 183/105 H 05/29/25 05:08 96 H 186/115 H 05/29/25 04:30 184/93 H 05/29/25 04:21 98 H 19 05/29/25 03:06 106 H 20 150/109 H 97 05/29/25 02:39 86 05/29/25 02:25 98 H 20 181/95 H 98 05/29/25 00:25 36.9 C 69 20 175/107 H 97 Pulse Ox O2 Del Method O2 Del Method 05/29/25 10:14 Room Air 05/29/25 08:44 98 Room Air 05/29/25 07:31 05/29/25 06:30 05/29/25 06:27 05/29/25 06:03 05/29/25 06:01 05/29/25 06:00 Room Air 05/29/25 05:30 05/29/25 05:08 05/29/25 04:30 05/29/25 04:21 05/29/25 03:06 05/29/25 02:39 05/29/25 02:25 05/29/25 00:25 Room Air Diagnostic Findings Reviewed imaging, laboratory and diagnostic studies. Pertinent findings as below. WBCs 15.0 Hemoglobin 14.0 Potassium 3.4 Anion gap [address] report
--- NOTE | 2025-05-29 12:09 | Electrocardiogram Report ---
Test Reason : Blood Pressure : */* mmHG Vent. Rate : 70 BPM Atrial Rate : 70 BPM P-R Int : 192 ms QRS Dur : 98 ms QT Int : 410 ms P-R-T Axes : -27 -13 -19 degrees QTcB Int : 442 ms Sinus rhythm with marked sinus arrhythmia Septal infarct (cited on or before 21-Dec-2006) Inferior infarct (cited on or before 26-Sep-2006) Abnormal ECG When compared with ECG of 10-Apr-2025 10:38, QRS axis Shifted right Questionable change in initial forces of Anteroseptal leads Inverted T waves have replaced nonspecific T wave abnormality in Inferior leads Confirmed by Alexx Duarte ([id number]) on 05/29/2025 12:08:53 PM Referred By: Confirmed By: Alexx Duarte
[2025-05-29] MEDS: POTASSIUM CHLORIDE 40 MEQ in SODIUM CHLORIDE 0.9% 1,000 ML IV SCH (12:28)
[2025-05-29 14:13] LABS: Anion Gap 10.0 (3-11); Blood Urea Nitrogen 10.0 mg/dl (6-23); Calcium 9.2 mg/dl (8.6-10.3); Carbon Dioxide 25.0 mmol/L (21-32); Chloride 105.0 mmol/L (98-107); Creatinine Clr Calc Pharmacy 79.8 ml/min; Glucose 109.0 mg/dl (70-99(Fasting)); Potassium 3.1 mmol/L (3.5-5.1); Sodium 140.0 mmol/L (136-145)
[2025-05-29] MEDS: HALOPERIDOL LACTATE 5 MG/ML 1 ML VIAL IM PRN (22:37)
[2025-05-30] MEDS: LEVOTHYROXINE SODIUM 75 MCG TABLET PO SCH (05:40)
[2025-05-30 06:49] LABS: Hematocrit (blood only) 37.9 % (37.0-47.0); Hemoglobin 12.5 g/dl (12.0-16.0); Immature Granulocytes # (auto) 0.02 K/uL (0.01-0.20); Immature Granulocytes % (auto) 0.2 %; Mean Corpuscular Hemoglobin 29.6 pg (25.0-34.0); Mean Corpuscular Volume 89.8 fL (80.0-100.0); Platelet Count 252 K/uL (130-400); RDW Standard Deviation 50.2 fL (36.4-46.3); Red Blood Count 4.22 M/uL (4.20-5.40); White Blood Count 9.45 K/ul (4.8-10.8)
[2025-05-30 07:04] LABS: Anion Gap 6.0 (3-11); Blood Urea Nitrogen 9.0 mg/dl (6-23); Calcium 8.6 mg/dl (8.6-10.3); Carbon Dioxide 26.0 mmol/L (21-32); Chloride 111.0 mmol/L (98-107); Creatinine Clr Calc Pharmacy 78.5 ml/min; Glucose 92.0 mg/dl (70-99(Fasting)); Potassium 4.2 mmol/L (3.5-5.1); Sodium 143.0 mmol/L (136-145)
--- NOTE | 2025-05-30 12:19 | Hospitalist Progress Note ---
Date of Service May 30, 2025 Assessment & Plan (1) Cyclical vomiting associated with migraine: (2) Uncontrolled hypertension: (3) Chronic pain syndrome: (4) Diabetes mellitus type 2, controlled: (5) HOLLY (obstructive sleep apnea): (6) Hypothyroidism: (7) Chronic diastolic congestive heart failure: (8) History of venous thromboembolism: Plan Patient has found Haldol to be very effective managing her nausea and vomiting. Trial of oral Haldol to manage symptoms, IM Haldol as needed as nausea becomes severe Blood pressure really seems to fluctuate with her other symptoms. At this time we will not change any of her antihypertensive medications Patient is tolerating liquids without problem, saline lock IV fluids Continue to encourage advancing her diet Continue activity Patient still requires hospital level care to ensure that she is able to tolerate enough oral intake to maintain adequate hydration and nutrition. Anticipate continuing to improve throughout the next 24 hours and then discharge most likely tomorrow. Patient aware of the plan Continue to monitor glucose and cover with insulin as needed Continue other outpatient medications including anticoagulation. History of chronic recurrent VTE. Admission and Anticipated Discharge Date Admission Date: May 29, 2025 Subjective Patient reports she definitely feels improved. Still a little bit nauseated. Headache is improved. Blood pressure continues to fluctuate. Patient reports a longstanding history of cyclic vomiting syndrome dating back to the age of 10. She describes 2 or 3 separate times during her life when it was really severe. Actually had Port-A-Cath placed due to her severe episodes of cyclic vomiting and recurrent hospitalizations. Has been good for at least a few years up until this episode. Physical Exam Physical Exam: Constitutional: Alert, significantly improved compared to yesterday, brighter in her face, nontoxic HEENT: Mucous membranes moist. Lungs: Clear to auscultation, decreased, no wheezes rales or rhonchi CV: S1-S2, regular Abdomen: Soft, nontender, nondistended Extremities: No significant edema Neuro: No focal deficits Psych: Cooperative, normal mood Results & Data Results & Data Vital Signs (Past 12 Hours) Vital Signs Temp Pulse Resp BP Pulse Ox O2 Del Method 05/30/25 07:55 68 14 149/78 H 92 Room Air 05/30/25 07:29 36.6 C 69 16 149/75 H 97 Room Air Diagnostic Findings Reviewed imaging, laboratory and diagnostic studies. Pertinent findings as below. CBC stable Potassium 4.2, improved Creatinine 0.62
[2025-05-30] MEDS: HEPARIN 100 UNIT/ML 5ML FLUSH FLUSH PRN (12:50)
[2025-05-30] MEDS: ACETAMINOPHEN 325 MG TAB PO PRN (20:31)
[2025-05-30 23:51] VITALS: O2SAT 93
[2025-05-31 07:05] VITALS: PULSE 64; RESP 16; TEMP 97.7
[2025-05-31 07:56] LABS: Anion Gap 6.0 (3-11); Blood Urea Nitrogen 10.0 mg/dl (6-23); Calcium 8.5 mg/dl (8.6-10.3); Carbon Dioxide 27.0 mmol/L (21-32); Chloride 108.0 mmol/L (98-107); Creatinine Clr Calc Pharmacy 72.6 ml/min; Glucose 82.0 mg/dl (70-99(Fasting)); Potassium 3.9 mmol/L (3.5-5.1); Sodium 141.0 mmol/L (136-145)
[2025-05-31 12:18] VITALS: BP 170/93
--- NOTE | 2025-05-31 14:09 | Discharge Summary ---
Date of Service May 31, 2025 Admission HPI Per Admitting Provider History obtained from patient and records. Medical history significant for chronic diastolic heart failure (EF 55 to 60%, TTE 2024), HOLLY CPAP noncompliance, CAD sp stenting, PVD, HTN, hyperlipidemia,DVT on Eliquis, DM2 diet-controlled, hypothyroidism, GERD, history of cyclical vomiting as per records, PTSD/mood disorder, post polio syndrome/scoliosis as per records, chronic pain, opioid abuse as per records. Recent confinement last month for headache and UTI. 2 days history of generalized abdominal pain associated with nausea, vomiting. Denies headache, chest pain, SOB. No diarrhea. Good BM as per patient. No fever, no chills. Intractable nausea/emesis symptoms at the ER. 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 Admission Exam Per Admitting Provider GENERAL: uncomfortable, obese, dry heaving, no respiratory distress SKIN: Normal color, warm HEENT: [place] palpebral conjunctivae, no ptosis, dry buccal mucosa NECK : Supple, short neck, no tenderness CHEST : Decreased breath sounds, no tenderness HEART : RRR, no obvious murmurs ABDOMEN: Some distention, epigastric tenderness EXTREMITIES : Minimal LE swelling, no LE tenderness NEUROLOGIC : Coherent, no facial asymmetry, no other gross focality Principal Diagnosis Cyclic vomiting syndrome Migraine headaches Hypertension uncontrolled Discharge Exam Constitutional: WD/WN F in NAD HEENT: NC/AT. Mucous membranes moist. Lungs: Clear to auscultation, decreased, no wheezes rales or rhonchi CV: S1-S2, regular Abdomen: Soft, nontender, nondistended Extremities: No significant edema, moves extremities Neuro: Awake, alert, answers appropriately, speech fluent, moves extremities Psych: Cooperative, normal mood Discharge Data Allergies Allergy/AdvReac Type Severity Reaction Status Date / Time adhesive tape Allergy Intermediate Skin Verified 05/29/25 08:10 irritation latex Allergy Intermediate Rash Verified 05/29/25 08:10 aspirin AdvReac Intermediate Bleeding Verified 05/29/25 08:10 ulcers (full dose ASA) NSAIDS (Non-Steroidal AdvReac Intermediate Hx Verified 05/29/25 08:10 Anti-Inflamma bleeding ulcers (advised to avoid) Consultations 05/29/25 04:05 ED Decision to Admit Stat Ordered Studies 05/29/25 01:26 CT abd pelvis IV con only Stat FINDINGS: Sections of the lower thorax show subpleural fibroatelectatic changes with emphysema in visualized lung linares. Small sliding hiatus hernia. Abdomen: Liver: Normal in size, and density. No focal lesions, cysts, or masses were identified. Gallbladder and Biliary System: The gallbladder is distended. No radiodense gallstones were identified. Pancreas: Mild pancreatic parenchymal atrophy. Spleen: Normal in size, shape, and density. No splenic lesions or masses were identified. Kidneys and Adrenal Glands: Both kidneys are normal in size. Few small non-obstructive calculi measuring up to 3 mm in right kidney. Few calculi also seen in left kidney, the largest measuring 13 mm in length and 8.5 mm in transverse dimension in inferior calyx extending up to the lateral margin of the renal pelvis. Small bilateral renal cortical cysts. No renal calculi or hydronephrosis. Adrenal glands are unremarkable. Pelvis: Urinary Bladder: Partially distended. A 20 x 15 mm iso enhancing lesion is seen along the right posterolateral wall of the uterus, likely representing subserosal fibroid. The rest of the uterus appears unremarkable. No definite ovarian lesions. Multiple phleboliths in pelvis. Peritoneal and Retroperitoneal Structures: No free fluid or abnormal fluid collections were identified within the abdomen or pelvis. Subcentimetric mesenteric nodes noted. Bowel: Uncomplicated colonic diverticulosis noted. Mild circumferential mural thickening of right hemicolon appears to be due to underdistention. No significant surrounding fat stranding. The visualized bowel loops are normal in caliber and appearance. Appendix is not well delineated. Bones and Soft Tissues: Severe degenerative changes in thoracolumbar spine with levoscoliosis and bony ankylosis. Diffuse osteopenic changes noted. Screw fixation of bilateral sacro-iliac joints. Calcified injection granulomas in gluteal regions. IMPRESSION: 1. Small non-obstructive stones (up to 3 mm) in the right kidney. 2. Multiple left renal stones, largest 13 x 8.5 mm in the inferior calyx, extending to the renal pelvis. 3. 20 x 15 mm iso-enhancing lesion on right posterolateral uterine wall, likely subserosal fibroid. 4. Rest of the findings as described above. Hospital Course (1) Cyclical vomiting associated with migraine: (2) Uncontrolled hypertension: (3) Chronic pain syndrome: (4) Diabetes mellitus type 2, controlled: (5) HOLLY (obstructive sleep apnea): (6) Hypothyroidism: (7) Chronic diastolic congestive heart failure: (8) History of venous thromboembolism: Plan Patient has found Haldol to be very effective managing her nausea and vomiting. Currently pt reports she feels much improved (even though she received haldol today), pt reports she did not have any vomiting and able to tolerate some po intake. She would very much like to be discharged. PO haldol was already sent to her pharmacy by my colleague (previous provider). Pt was advised to follow up closely with her PCP. Blood pressure really seems to fluctuate with her other symptoms. At this time we will not change any of her antihypertensive medications Continue activity Continue other outpatient medications including anticoagulation. History of chronic recurrent VTE. Incidental findings on CT abdomen/pelvis - 1. Small non-obstructive stones (up to 3 mm) in the right kidney. 2. Multiple left renal stones, largest 13 x 8.5 mm in the inferior calyx, extending to the renal pelvis. 3. 20 x 15 mm iso-enhancing lesion on right posterolateral uterine wall, likely subserosal fibroid. Outpt follow up Total Time Total Time Spent Total Time Spent (In Minutes): 40 Discharge Plan Discharge Items Patient Disposition: Home - Self-Care Reason For Visit: HTN URG Discharge Diagnosis: Cyclic vomiting syndrome Migraine headaches Hypertension uncontrolled Condition on Discharge: Fair Activity: As commented below Activity Comment: Increase activity as tolerated Non-emergency contact: Primary Care Provider Call non-emergency contact if: your symptoms worsen Follow-up/Referrals: Svetlana Jacobs DO [Primary Care Provider] - (The office will call you for a follow up appointment.) Diet: Carb Consistent or DM2 Addtl Attending Provider Instructions: Continue to follow with your PCP for your ongoing medical issues. You responded well to Haldol in the hospital, will give you prescription for this to use at home should you start to get nauseated again. Pending Studies at Discharge: No Stand-Alone Forms: My [employer], Smoking Cessation Medications and DC Order Prescriptions: New haloperidol 5 mg Tablet 5 mg PO Q4H PRN (Reason: nausea/vomiting) Qty: 20 0RF Continued pantoprazole 40 mg tablet,delayed release (DR/EC) 40 mg PO BID Qty: 60 2RF Patient Comments: only takes once daily QAM nitroglycerin [Nitrostat] 0.3 mg Tablet, Sublingual 0.3 mg sublingual DIRECTED PRN (Reason: Chest Pain) Patient Comments: 05/18- no fill history unable to verify Rx Instructions: NEEDED FOR CHEST PAIN : ONE TABLET UNDER THE TONGUE EVERY 5 MINUTES UP TO 3 DOSES. olopatadine 0.2 % Drops 1 drp ophthalmic (eye) QAM furosemide 20 mg tablet 40 mg PO QAM Rx Instructions: may take additional dose as directed for edema. atorvastatin [Lipitor] 40 mg Tablet 40 mg PO QAM levothyroxine 75 mcg Tablet 75 mcg PO DAILYBB Rx Instructions: take before breakfast or other meds buspirone 10 mg tablet 10 mg PO BID Patient Comments: 05/18- last filled 02/10 90 day supply #180 promethazine 25 mg Tablet 25 mg PO Q6H PRN (Reason: Nausea) tizanidine 4 mg tablet 4 mg PO BID PRN (Reason: Muscle Spasm) Eliquis 5 mg tablet 5 mg PO BID Hold Instructions: Resume on 02/23/24. Resume once allowed by your primary care physician ondansetron 4 mg tablet,disintegrating 4 mg PO Q6H PRN (Reason: nausea and vomiting) Qty: 10 0RF metoprolol succinate 100 mg Tablet Extended Release 24 Hr 100 mg PO QAM Ozempic 2 mg/dose (8 mg/3 mL) Pen Injector 2 mg SUBCUT WK Rx Instructions: Saturdays trazodone 150 mg tablet 300 mg PO HS aspirin 81 mg Tablet,Delayed Release (Dr/Ec) 81 mg PO QAM Qty: 0 0RF Patient Comments: Is listed on pt's allergy list, but pt can tolerate 81mg as long as it is EC. Cannot tolerate 325mg NOR chewables/non-EC. - 05/29/25 epinephrine [EpiPen] 0.3 mg/0.3 mL Auto-Injector 0.3 mg IM DIRECTED PRN (Reason: Allergic Reaction) Patient Comments: 05/18- no fill history unable to verify lidocaine 5 % Adhesive Patch,Medicated 1 patch transdermal HS Qty: 30 0RF Patient Comments: 05/18- otc unable to verify oxycodone 5 mg tablet 5 mg PO Q6H MDD 4 tablets PRN (Reason: pain) Changed potassium chloride 10 mEq tablet,ER particles/crystals 20 meq PO QAM Qty: 60 0RF Discharge Orders: Discharge Order (Routine); Ordered 05/31/25 Ordered By: Tre Olivo Admission Data Admit Date/Time: 05/30/25 12:12 Attending Provider: Tre Olivo Admit Provider: Latrell Kraft Primary Care Provider: Svetlana Jacobs Other Providers: Latrell Kraft; Jonah Lockhart
== END 2025-05-31 16:33 | disposition home or self-care (01) | DRG 103 ==
LOC: EDINP 00:29 → ED 00:29 → SUATTDRO 04:45 → 3E 06:44 → SUATTDRO 05-30 12:12

== ENCOUNTER 2025-06-10 18:46 | Inpatient (IN) ==
[2025-06-10 19:32] LABS: Hematocrit (blood only) 40.7 % (37.0-47.0); Hemoglobin 14.0 g/dl (12.0-16.0); Immature Granulocytes # (auto) 0.02 K/uL (0.01-0.20); Immature Granulocytes % (auto) 0.2 %; Mean Corpuscular Hemoglobin 29.9 pg (25.0-34.0); Mean Corpuscular Volume 86.8 fL (80.0-100.0); Platelet Count 298 K/uL (130-400); RDW Standard Deviation 46.4 fL (36.4-46.3); Red Blood Count 4.69 M/uL (4.20-5.40); White Blood Count 10.94 K/ul (4.8-10.8)
[2025-06-10] MEDS: FAMOTIDINE 20MG IV PUSH 20 MG/5 ML SYR IV STA (19:34)
[2025-06-10] MEDS: ONDANSETRON INJ 2 MG/ML 2 ML VIAL IV STA (19:35)
[2025-06-10] MEDS: MoRPHine SULFATE 4 MG/ML 1 ML CARP\\VIAL IV STA ×3 (19:35→23:44)
[2025-06-10] MEDS: SODIUM CHLORIDE 0.9% 1,000 ML IV SCH (19:39)
[2025-06-10 19:51] LABS: Alanine Aminotransferase 21.0 U/L (7-52); Albumin Globulin Ratio 1.2 (0.9-2); Alkaline Phosphatase 106.0 U/L (34-104); Anion Gap 9.0 (3-11); Bilirubin,Total 0.5 mg/dl (0.2-1.0); Blood Urea Nitrogen 14.0 mg/dl (6-23); Calcium 9.2 mg/dl (8.6-10.3); Carbon Dioxide 27.0 mmol/L (21-32); Chloride 104.0 mmol/L (98-107); Creatinine Clr Calc Pharmacy 60.2 ml/min; Globulin 3.3 gm/dl (2.5-4.0); Glucose 135.0 mg/dl (70-99(Fasting)); Lipase 25.0 U/L (11-82); Magnesium 1.6 mg/dl (1.7-2.4); Potassium 3.2 mmol/L (3.5-5.1); Sodium 140.0 mmol/L (136-145); Total Protein 7.4 gm/dl (6.0-8.3)
[2025-06-10 20:06] LABS: INR 1.1 (0.9-1.1); Prothrombin Time 11.4 Seconds (9.0-12.0)
[2025-06-10] MEDS: OPTIRAY 320 100ml IV ONE (20:44)
[2025-06-10] MEDS: MAGNESIUM SULFATE / D5W 1 GM/100 ML BAG IV STA (20:53)
[2025-06-10 21:28] LABS: Appearance Urine Clear (Clear); Bacteria Urine Automated 4+ (None Seen); Cast Urine Automated 0-2 /lpf (0-2); Epithelial Cell Urine Auto 0-2 /hpf (0-2); Glucose Urine UA Negative (Negative); RBC Urine Automated 0-2 /hpf (0-2)
[2025-06-10] MEDS: cefTRIAXone SODIUM 2,000 MG/50 ML BAG IV STA (21:57)
--- NOTE | 2025-06-10 23:02 | Emergency Department Note ---
Impression & Plan Abdominal pain, Acute UTI (urinary tract infection) ED Provider Note ED Provider Note NAME: JOVANNI DE SANTIAGO AGE:75 SEX: Female : 1950 ARRIVES VIA: EMS INFORMANT: Patient ED PROVIDER(s): Rosemarie Reyes DO CHIEF COMPLAINT: abdominal pain, nausea/vomiting HPI: This is a 75-year-old female who presents emergency department due to concern for abdominal pain with nausea and vomiting. Patient states she felt unwell earlier in the day today and mildly yesterday. However pain became abruptly worse this afternoon predominantly in the right lower quadrant. Pain is otherwise nonradiating. She did have nausea and vomiting. She denies fevers or chills. Patient states pain feels similar to when she previously had a kidney stone. No recent trauma or change in activity, no recent change in diet. No recent change in medications. No recent change in stools. She denies noting any change to her urinary urinary habits recently. Patient states she vomited multiple times at home, no blood noted. Patient has had a prior appendectomy, she denies any other abdominal surgeries. PAST MEDICAL HISTORY:See Below PAST SURGICAL HISTORY:See Below FAMILY HISTORY:See Below SOCIAL HISTORY:See Below HOME MEDICATIONS:See Below ALLERGIES:See Below VITALS:See Below PHYSICAL EXAMINATION: GENERAL: alert, uncomfortable appearing, well nourished, no distress, non-toxic EYE EXAM: normal conjunctiva, PERRL and EOM's grossly intact OROPHARYNX: no exudate, no erythema, lips, buccal mucosa, and tongue normal and mucous membranes are dry NECK: supple, no nuchal rigidity, no adenopathy, non-tender LUNGS: Clear to auscultation. Normal chest wall mechanics, no w/r/r HEART: no murmurs, S1 normal and S2 normal, port noted left anterior superior chest wall ABDOMEN: abdomen soft, pain with palpation of the right lower quadrant, normo- active bowel sounds, no masses, no rebound or guarding. BACK: Back is symmetrical on inspection and there is no deformity, no midline tenderness, no CVA tenderness. SKIN: no rashes, petechiae, orbruising UPPER EXTREMITIES: upper extremities are grossly normal. FROM, nml pulses b/l. LOWER EXTREMITIES: No pitting edema. FROM, nml pulses b/l. NEURO EXAM: Normal sensorium, cranial nerves II-XII grossly intact, normal speech, no facial droop,nogross weakness of arms, no gross weakness of legs. Gross sensation intact. No ataxia. Vital Signs: reviewed and remarkable Differential Diagnosis: Ureterolithiasis, UTI, pyelonephritis, colitis, perforation, GI bleed, bowel obstruction, mesenteric ischemia, intussusception, mass, cholecystitis, as well as others were considered MEDICAL DECISION MAKING: This is a 75-year-old female who presents emergency department complaining of right lower quadrant abdominal pain, nausea and vomiting. Patient was afebrile and vital signs were stable on arrival. Labs drawn and sent, IV established, EKG performed at bedside and interpreted by me and the patient was monitored on telemetry. Patient sent for CT abdomen pelvis, urine collected and sent for analysis. Patient's UA suggestive of infection. After review of prior urine cultures, patient was given IV Rocephin. Patient given IV fluids, IV morphine and IV Tylenol for pain, IV Zofran for nausea. Patient given IV magnesium for her mild hypomagnesemia additionally. Patient CT reassuring however patient continued to complain of pain in the abdomen. Due to concern for possible ascending UTI or early pyelonephritis, case discussed with the hospitalist team for additional evaluation and management. IV Toradol was added. Consultation(s): 0101: Discussed with Dr. Kraft, [facility] hospitalist team, for additional evaluation and mgmt. ER Treatment Provided: See below Diagnostics Interpreted By Me: -ECG: Normal sinus at 92, normal axis, normal intervals, no acute ST/T wave changes -Cardiac Monitoring: An order was placed for continuous cardiac monitoring. The monitor shows a rate of 80 with normal sinus rhythm. -Laboratory studies: As stated above and show below. -Imaging studies: ct a/p - no hydro, no stone Triage Nursing Note Reviewed Prior/Outside Records Reviewed -prior urine cultures reviewed. Past Med/Surg History Problem List (Updated 06/11/25 @ 12:59 by Jonah Lockhart DO) Constipation by delayed colonic transit Acute UTI (urinary tract infection) (Acute) Abdominal pain (Acute) History of venous thromboembolism Chronic diastolic congestive heart failure Diabetes mellitus type 2, controlled Uncontrolled hypertension Cyclical vomiting associated with migraine Asymptomatic hypertensive urgency Abdominal pain, acute (Acute) Intractable nausea and vomiting (Acute) Headache (Acute) Acute migraine Failure of outpatient treatment (Acute) Cervical disc disease (Acute) Right shoulder pain (Acute) Cervical radiculopathy Chronic pain after musculoskeletal injury Acute hypotension Status post reverse total arthroplasty of right shoulder History of nickel allergy Right rotator cuff tear arthropathy Chronic right shoulder pain Proctocolitis (Acute) 02/16/24 Postmenopausal bleeding 02/14/24 Right shoulder pain History of arthroscopy of right shoulder 10/23/23 ([facility]) Right shoulder arthroscopy, I&D of subacromial hematoma Encounter for pre-operative examination History of arthroscopy of right shoulder rt shoulder, 06/2023 Dilation of thoracic aorta mild per cardio; monitoring HOLLY (obstructive sleep apnea) noncompliant with CPAP per cardio note History of post-polio syndrome Orthostatic hypotension 07/02/23 Dysfunction of right rotator cuff History of rotator cuff surgery Barretts esophagus on protonix; follows with GI Peroneus brevis tendinitis Hypomagnesemia (Acute) 04/16/23 History of pulmonary embolism Non-specific colitis 04/06/23 S/P right rotator cuff repair Diabetes mellitus, type 2 06/26/23 Ha1c: 5.8% Constipation 01/14/23 Rotator cuff tear Rotator cuff tendinitis DVT (deep venous thrombosis) (Acute) Migraine (Acute) Generalized weakness (Acute) 04/11/20 Ambulatory dysfunction Chronic pain (Chronic) History of vascular access device (Chronic) Left upper chest port (*not a power port*) Mood disorder (Chronic) CAD (coronary artery disease) 2 BMS to LAD (2017) History of anesthesia reaction (Chronic) Awareness with spinal surgeries Ovarian cyst (Chronic) X 2 Degenerative disc disease (Chronic) History of laminectomy (Chronic) and fusion "entire spine is fused(except cervical spine)" [facility] (Dr Catherine) 1989' Fusion of spine (Chronic) LUMBAR Osteoarthritis (Chronic) History of appendectomy (Chronic) Colitis (Chronic) 02/15/24 Anemia (Chronic) History of tonsillectomy (Chronic) History of adenoidectomy (Chronic) Post traumatic stress disorder (Chronic) Depression Restless leg syndrome (Chronic) Migraine (Chronic) Hx, no recent issues Deep vein thrombosis (Chronic) ~2014, unknown cause Pulmonary embolism (Chronic) ~2014 (UNSURE OF REASON) History of heart artery stent (Chronic) 2017-x2 STENTS PLACED AT [facility] (DR. DAVILA) Myocardial Infarction (Chronic) NSTEMI 2017; s/p 2 BMS to LAD Hypertension H/O ovarian cystectomy (Chronic) x2 H/O repair of right rotator cuff (Chronic) H/O spinal fusion (Chronic) Multiple Dyslipidemia (Chronic) Cervical spondylolysis (Chronic) Scoliosis (Chronic) Medical History History of blood transfusion Osteoarthritis History of colitis Migraine Hx, no recent issues HTN (hypertension) h/o orthostatic hypotension in 2022; controlled, stable per pt Port-A-Cath in place left chest wall, replacement 04/18/24, power port Dyslipidemia Depression Cervical spondylosis no ROM limits Barretts esophagus on protonix; follows with GI History of nickel allergy recent allergy testing showed she is not allergic to nickel Diabetes NIDDM History of anemia PTSD (post-traumatic stress disorder) RLS (restless legs syndrome) Hx of myocardial infarction (~2016) NSTEMI > BMS x2 to LAD Scoliosis CAD (coronary artery disease) BMS x2 to LAD Hx of post-polio syndrome HOLLY (obstructive sleep apnea) pt denies Dilation of thoracic aorta Echo 01/2024: Aortic root and proximal ascending aorta are normal sized Hx of deep venous thrombosis (~2017) DVT > PE Hx pulmonary embolism (~2017) DVT > PE Chronic pain syndrome Back Cyclic vomiting syndrome hx, no issues in "years" Hx of Clostridium difficile infection (~2016) Remote hx History of COVID-19 (~10/2021) treated inpatient at [facility]/Covid PNA > symptoms resolved Chronic heart failure with preserved ejection fraction (HFpEF) Follows with [facility] cardio Hypothyroidism Anxiety Hyperlipidemia duplicate Surgical History History of reverse total replacement of right shoulder joint 09/07/24, [facility] Hx of laminectomy and fusion "entire spine is fused(except cervical spine)" [facility] [place] (Dr Catherine) 1989' Hx of dilation and curettage (06/2024) [facility]-- recent rectal and vaginal bleeding due to polyps Hx of knee surgery right-open meniscus repair History of anesthesia reaction Awareness with spinal surgery History of cataract surgery R/L S/P panniculectomy Hx of appendectomy History of tonsillectomy and adenoidectomy Hx of ovarian cystectomy x2 Hx of heart artery stent 2017- BMS x2 Hx of cardiac cath 2017- BMS x2 Hx of arthroscopy of shoulder Right shoulder, 01/2023, 06/2023, 10/23/23 ([facility]) Right shoulder arthroscopy, I&D of subacromial hematoma Hx of spinal surgery Multiple back surgeries History of colonoscopy History of esophagogastroduodenoscopy (EGD) History of back surgery bilateral SI Joint replacements (~2020/[facility] [place]) S/P hardware removal Removal of all back hardware (~2002) [facility] Family History Mother Hypertension Father Hypertension Other No family history of adverse response to anesthesia Social History Smoking Status: Never smoker Second Hand Exposure: No; Do You Dip or Chew Tobacco: No; Hx Alcohol Use: No Hx Substance Use: No Preferred Language: Hebrew Communication Ability: Effective Visual Impairment: Limited Hearing Ability: Normal 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 Beliefs That Will Affect Care: None marital status: Current Living Situation: Alone current occupational status: retired How many Children do You have: 2 Feels Safe at Home: Yes Assistive Devices: None Allergies Allergies Allergy/AdvReac Type Severity Reaction Status Date / Time adhesive tape Allergy Intermediate Skin Verified 05/29/25 08:10 irritation latex Allergy Intermediate Rash Verified 05/29/25 08:10 aspirin AdvReac Intermediate Bleeding Verified 05/29/25 08:10 ulcers (full dose ASA) NSAIDS (Non-Steroidal AdvReac Intermediate Hx Verified 05/29/25 08:10 Anti-Inflamma bleeding ulcers (advised to avoid) Home Meds Home Medications Medication Instructions Recorded Confirmed atorvastatin 40 mg tablet (Lipitor) 40 mg PO QAM 12/13/18 06/11/25 levothyroxine 75 mcg tablet 75 mcg PO DAILYBB 12/13/18 06/11/25 promethazine 25 mg tablet 25 mg PO Q6H PRN Nausea 05/12/19 06/11/25 nitroglycerin 0.3 mg sublingual 0.3 mg sublingual DIRECTED PRN 05/23/19 06/11/25 tablet (Nitrostat) Chest Pain olopatadine 0.2 % eye drops 1 drp ophthalmic (eye) QAM 05/23/19 06/11/25 tizanidine 4 mg tablet 4 mg PO BID PRN Muscle Spasm 04/03/20 06/11/25 furosemide 20 mg tablet 40 mg PO QAM 10/05/20 06/11/25 apixaban 5 mg tablet (Eliquis) 5 mg PO BID 10/11/21 06/11/25 metoprolol succinate 100 mg 100 mg PO QAM 01/20/23 06/11/25 tablet,extended release 24 hr semaglutide 2 mg/dose (8 mg/3 mL) 2 mg subcut WK 01/20/23 06/11/25 subcutaneous pen injector (Ozempic) buspirone 10 mg tablet 10 mg PO BID 02/20/23 06/11/25 trazodone 150 mg tablet 300 mg PO HS 12/28/24 06/11/25 epinephrine 0.3 mg/0.3 mL 0.3 mg IM DIRECTED PRN Allergic 03/31/25 06/11/25 injection, auto-injector (EpiPen) Reaction oxycodone 5 mg tablet 5 mg PO Q6H PRN pain 05/29/25 06/11/25 Previous Rx's Medication Instructions Recorded ondansetron 4 mg disintegrating 4 mg PO Q6H PRN nausea and 10/26/23 tablet vomiting #10 tabs pantoprazole 40 mg tablet,delayed 40 mg PO BID #60 tabs 12/21/23 release aspirin 81 mg tablet,delayed 81 mg PO QAM #0 tabs 02/19/24 release lidocaine 5 % topical patch 1 patch transdermal HS #30 ea 04/06/25 haloperidol 5 mg tablet 5 mg PO Q4H PRN nausea/vomiting 05/30/25 #20 tabs potassium chloride 10 mEq 20 meq (2 x 10 mEq) PO QAM #60 tabs 05/30/25 tablet,extended release(part/cryst) cephalexin 500 mg capsule 500 mg PO BID 5 days #10 caps 06/11/25 polyethylene glycol 3350 17 17 g PO DAILY #850 grams 06/11/25 gram/dose oral powder (Miralax) sennosides 8.6 mg capsule (senna) 8.6 mg PO BID #60 caps 06/11/25 Results & Data (ED) Vital Signs Vital Signs - 24 hr 06/11/25 01:30 Pulse Rate 73 Respiratory Rate 12 Blood Pressure 114/83 Blood Pressure Mean 93 Pulse Oximetry 96 Oxygen Delivery Method Nasal Cannula Oxygen Flow Rate 3 Laboratory Data 06/11/25 05:53 06/11/25 05:53 Lab Results 06/10/25 06/10/25 Range/Units 19:05 21:06 WBC 10.94 H (4.8-10.8) K/ul RBC 4.69 (4.20-5.40) M/uL Hgb 14.0 (12.0-16.0) g/dl Hct 40.7 (37.0-47.0) % MCV 86.8 (80.0-100.0) fL MCH 29.9 (25.0-34.0) pg MCHC 34.4 (32.0-36.0) g/dL RDW Std Deviation 46.4 H (36.4-46.3) fL RDW Coeff of [place] 14.6 H (11.5-14.5) % Plt Count 298 (130-400) K/uL MPV 9.3 L (9.4-12.4) fL Immature Gran % (Auto) 0.2 % Neut % (Auto) 75.5 % Lymph % (Auto) 15.8 % [place] % (Auto) 6.5 % Eos % (Auto) 1.4 % Baso % (Auto) 0.6 % Neut # (Auto) 8.26 H (1.40-6.50) K/uL Lymph # (Auto) 1.73 (1.20-3.40) K/uL [place] # (Auto) 0.71 H (0.11-0.59) K/uL Eos # (Auto) 0.15 (0.00-0.50) K/uL Baso # (Auto) 0.07 (0.00-0.20) K/uL Immature Gran # (Auto) 0.02 (0.01-0.20) K/uL PT 11.4 (9.0-12.0) Seconds INR 1.1 (0.9-1.1) Sodium 140 (136-145) mmol/L Potassium 3.2 L (3.5-5.1) mmol/L Chloride 104 (98-107) mmol/L Carbon Dioxide 27 (21-32) mmol/L Anion Gap 9 (3-11) BUN 14 (6-23) mg/dl Creatinine 0.82 (0.6-1.2) mg/dl Est Cr Clr Drug Dosing 60.2 ml/min eGFR 73.63 BUN/Creatinine Ratio 17.1 (10-20) Glucose 135 H (70-99(Fasting)) mg/dl Calcium 9.2 (8.6-10.3) mg/dl Magnesium 1.6 L (1.7-2.4) mg/dl Total Bilirubin 0.5 (0.2-1.0) mg/dl AST 24 (13-39) U/L ALT 21 (7-52) U/L Alkaline Phosphatase 106 H (34-104) U/L Total Protein 7.4 (6.0-8.3) gm/dl Albumin 4.1 (3.4-5.0) gm/dl Globulin 3.3 (2.5-4.0) gm/dl Albumin/Globulin Ratio 1.2 (0.9-2) Lipase 25 (11-82) U/L Procalcitonin < 0.02 (0-0.5) ng/ml Urine Color Yellow Urine Appearance Clear (Clear) Urine pH 6.5 (4.5-7.5) Ur Specific [place] 1.019 (1.000-1.030) Urine Protein Negative (Negative) Urine Glucose (UA) Negative (Negative) Urine Ketones Negative (Negative) Urine Blood Negative (Negative) Urine Nitrite Positive A (Negative) Urine Bilirubin Negative (Negative) Urine Urobilinogen Negative (Negative) Ur Leukocyte Esterase 1+ H (Negative) Urine WBC (Auto) 6-10 H (0-5) /hpf Urine RBC (Auto) 0-2 (0-2) /hpf U Hyaline Cast (Auto) 0-2 (0-2) /lpf U Epithel Cells (Auto) 0-2 (0-2) /hpf Urine Bacteria (Auto) 4+ H (None Seen) Urine Comment Administered Medications Discontinued Medications Albuterol (Albut/Ipratrop 3mg/0.5mg Neb 3 Ml Vial) 3 ml NEB NOW STA; Protocol Stop: 06/11/25 02:10 Last Admin: 06/11/25 02:18 Dose: 3 ml Documented By: LUIS FELIPE Apixaban (Apixaban 5 Mg Tablet) 5 mg PO BID [facility] Stop: 07/11/25 08:59 Last Admin: 06/11/25 09:22 Dose: 5 mg Documented By: VAUGHN Aspirin (Aspirin 81 Mg Ectab) [facility] Stop: 07/11/25 08:59 Last Admin: 06/11/25 09:22 Dose: 81 mg Documented By: VAUGHN Atorvastatin Calcium (Atorvastatin 40 Mg Tab) [facility] Stop: 07/11/25 08:59 Last Admin: 06/11/25 09:22 Dose: 40 mg Documented By: VAUGHN Buspirone HCl (Buspirone 5 Mg Tab) 10 mg PO BID COLT Stop: 07/11/25 08:59 Last Admin: 06/11/25 09:22 Dose: 10 mg Documented By: VAUGHN Dicyclomine HCl (Dicyclomine Hcl 10 Mg Cap) 10 mg PO NOW ONE Stop: 06/11/25 00:53 Last Admin: 06/11/25 01:16 Dose: 10 mg Documented By: MARITO Sodium Chloride (Nss) 1,000 mls @ 250 mls/hr IV .Q4H COLT Stop: 06/13/25 19:29 Last Admin: 06/11/25 01:40 Dose: Not Given Documented By: LUIS FELIPE Infusion: 06/11/25 00:47 Dose: Infused Documented By: Admin: 06/10/25 19:39 Dose: 250 mls/hr Documented By: roland Famotidine (Pepcid 20mg Iv Push) 20 mg in 5 mls @ 2.5 mls/min IV NOW STA Stop: 06/10/25 19:18 Last Admin: 06/10/25 19:34 Dose: 2.5 mls/min Documented By: roland Magnesium Sulfate/Dextrose (Magnesium Sulfate / D5w) 1 gm in 100 mls @ 100 mls/hr IV NOW STA Stop: 06/10/25 21:07 Last Infusion: 06/10/25 21:55 Dose: Infused Documented By: roland Admin: 06/10/25 20:53 Dose: 100 mls/hr Documented By: roland Ceftriaxone Sodium (Rocephin) 2,000 mg in 50 mls @ 100 mls/hr IV NOW STA Stop: 06/10/25 22:19 Last Infusion: 06/10/25 22:29 Dose: Infused Documented By: Admin: 06/10/25 21:57 Dose: 100 mls/hr Documented By: roland Acetaminophen (Ofirmev) 1,000 mg in 100 mls @ 400 mls/hr IV NOW STA Stop: 06/11/25 00:36 Last Infusion: 06/11/25 00:47 Dose: Infused Documented By: Admin: 06/11/25 00:25 Dose: 400 mls/hr Documented By: MARITO Sodium Chloride (Nss) 1,000 mls @ 125 mls/hr IV .Q8H COLT Stop: 06/14/25 00:59 Last Admin: 06/11/25 02:17 Dose: Not Given Documented By: LUIS FELIPE Cefepime HCl (Maxipime 2000mg) 2,000 mg in 20 mls @ 5 mls/min IV Q8H [facility]; Protocol Stop: 06/21/25 09:59 Last Admin: 06/11/25 11:24 Dose: 5 mls/min Documented By: VAUGHN Cefepime HCl (Maxipime 2000mg) 2,000 mg in 20 mls @ 5 mls/min IV ONE STA; Protocol Stop: 06/11/25 02:16 Last Admin: 06/11/25 02:18 Dose: 5 mls/min Documented By: LUIS FELIPE Insulin Aspart (Insulin Aspart Per Unit Charge) 0 units SC [facility] Stop: 07/11/25 03:36 Last Admin: 06/11/25 13:04 Dose: Not Given Documented By: Admin: 06/11/25 09:27 Dose: 2 units Documented By: VAUGHN [place] [facility]: 06/11/25 03:50 Dose: Not Given Documented By: NATHAN Ioversol (Optiray 320 100ml) 93 ml IV ONCE ONE Stop: 06/10/25 20:45 Last Admin: 06/10/25 20:44 Dose: 93 ml Documented By: AZAM Ketorolac Tromethamine (Ketorolac Tromethamine 15 Mg/Ml Vial) 10 mg IV NOW ONE Stop: 06/11/25 00:53 Last Admin: 06/11/25 01:16 Dose: 10 mg Documented By: MARITO Levothyroxine Sodium (Levothyroxine Sodium 75 Mcg Tablet) 75 mcg PO DAILYBB COLT Stop: 07/11/25 06:29 Last Admin: 06/11/25 06:05 Dose: 75 mcg Documented By: NATHAN Magnesium Citrate (Magnesium Citrate 296 Ml/Btl) 148 ml PO TODAY@0800 [facility] Stop: 07/11/25 07:59 Last Admin: 06/11/25 09:21 Dose: 148 ml Documented By: VAUGHN Metoprolol Succinate (Metoprolol Succ 50mg Ext Rel Tab) 100 mg PO QAM COLT Stop: 07/11/25 08:59 Last Admin: 06/11/25 09:22 Dose: 100 mg Documented By: VAUGHN Miscellaneous ((Olopatadine 0.2 % Drops)~Order Awaiting Action) 1 each N/A QS [facility] Stop: 07/11/25 07:59 Last Admin: 06/11/25 09:25 Dose: Not Given Documented By: VAUGHN Morphine Sulfate (Morphine Sulfate 4 Mg/Ml 1 Ml Carp\\Vial) 4 mg IV NOW STA Stop: 06/10/25 19:18 Last Admin: 06/10/25 19:35 Dose: 4 mg Documented By: roland Morphine Sulfate (Morphine Sulfate 4 Mg/Ml 1 Ml Carp\\Vial) 4 mg IV NOW STA Stop: 06/10/25 20:27 Last Admin: 06/10/25 20:33 Dose: 4 mg Documented By: roland Morphine Sulfate (Morphine Sulfate 4 Mg/Ml 1 Ml Carp\\Vial) 4 mg IV NOW STA Stop: 06/10/25 23:42 Last Admin: 06/10/25 23:44 Dose: 4 mg Documented By: MARITO Ondansetron HCl (Ondansetron Inj 2 Mg/Ml 2 Ml Vial) 4 mg IV NOW STA Stop: 06/10/25 19:18 Last Admin: 06/10/25 19:35 Dose: 4 mg Documented By: roland Oxycodone HCl (Oxycodone Hcl Ir 5 Mg Tab (Immediate Release)) 5 mg PO Q4H PRN PRN Reason: Pain Stop: 06/25/25 01:09 Last Admin: 06/11/25 11:23 Dose: 5 mg Documented By: Admin: 06/11/25 06:05 Dose: 5 mg Documented By: NATHAN Oxycodone HCl (Oxycodone Hcl Ir 5 Mg Tab (Immediate Release)) 5 mg PO NOW STA Stop: 06/11/25 02:10 Last Admin: 06/11/25 02:18 Dose: 5 mg Documented By: LUIS FELIPE Pantoprazole Sodium (Pantoprazole 40 Mg Tab) 40 mg PO BID COLT Stop: 07/11/25 08:59 Last Admin: 06/11/25 09:22 Dose: 40 mg Documented By: VAUGHN Polyethylene Glycol (Polyethylene (Miralax) 17 Gm Pack) 17 gm PO DAILY COLT Stop: 07/11/25 08:59 Last Admin: 06/11/25 09:29 Dose: 17 gm Documented By: VAUGHN Potassium Chloride (Potassium Chloride Pwd 20 Meq Pack) 40 meq PO NOW STA Stop: 06/11/25 01:07 Last Admin: 06/11/25 02:17 Dose: Not Given Documented By: LUIS FELIPE Potassium Chloride (Potassium Chloride Crtab 20 Meq Tabcr) 40 meq PO NOW STA Stop: 06/11/25 02:10 Last Admin: 06/11/25 02:18 Dose: 40 meq Documented By: LUIS FELIPE Senna/Docusate Sodium (Docusate Sodium/Senna 50/8.6mg Tab) 1 tab PO QAM COLT Stop: 07/11/25 03:04 Last Admin: 06/11/25 03:50 Dose: 1 tab Documented By: NATHAN Trazodone HCl (Trazodone Hcl 100 Mg Tab) 300 mg PO HS COLT Stop: 07/11/25 03:09 Last Admin: 06/11/25 06:03 Dose: Not Given Documented By: NATHAN Imaging Data Radiologist's Impression: Abdomen/Pelvis CT 06/10/25 20:05 Exam(s): CT ABDOMEN + PELVIS With Contrast IV Amt: 93ML OPTIRAY 320 EXAM: CT Abdomen and Pelvis With Intravenous Contrast CLINICAL HISTORY: Right lower quadrant Pain. TECHNIQUE: Axial computed tomography images of the abdomen and pelvis with intravenous contrast. CTDI is 27.72 mGy and DLP is 1296.95 mGy-cm. Automated exposure control was utilized for the study. A dose lowering technique was utilized adhering to the principles of ALARA. CONTRAST: Patient received 93ML OPTIRAY 320 of IV contrast COMPARISON: CT abdomen and pelvis 05/29/2025. FINDINGS: Lung bases: Unremarkable. No mass. No consolidation. ABDOMEN: Liver: Unremarkable. No mass. Gallbladder and bile ducts: Unremarkable. No calcified stones. No ductal dilation. Pancreas: Unremarkable. No mass. No ductal dilation. Spleen: Unremarkable. No splenomegaly. Adrenals: Unremarkable. No mass. Kidneys and ureters: Simple appearing bilateral renal cysts are present, no follow up is needed. Nonobstructing left renal calculi. No hydronephrosis. Stomach and bowel: Significant stool throughout the colon is concerning for constipation. Diverticulosis. No obstruction. No mucosal thickening. PELVIS: Appendix: No findings to suggest acute appendicitis. Bladder: Unremarkable. No mass. Reproductive: A mass in the uterus measures 2.2 cm. The adnexa are unremarkable. ABDOMEN and PELVIS: Intraperitoneal space: Unremarkable. No free air. No significant fluid collection. Bones/joints: There are degenerative changes of the spine. No acute fracture. There are surgical changes of the both SI joints. Flowing anterior osteophytes is concerning for bone view spine. No dislocation. There is levoscoliosis of the thoracolumbar spine. Soft tissues: Unremarkable. Vasculature: Moderate atherosclerosis. No aneurysm. Lymph nodes: Unremarkable. No enlarged lymph nodes. IMPRESSION: 1. No acute finding of the abdomen or pelvis. 2. Significant stool throughout the colon is concerning for constipation. 3. Nonobstructing left renal calculi. 4. Diverticulosis. 5. A mass in the uterus measures 2.2 cm. This likely represents a fibroid although nonspecific. 6. Flowing anterior osteophytes is concerning for bone view spine. Electronically signed by: Ashley Carroll MD 06/11/25 00:44 AM Discharge Plan Visit Data Chief Complaint: Abdominal Pain ED Provider: Rosemarie Reyes Discharge Problem: Abdominal pain, Acute UTI (urinary tract infection) Patient Disposition: Admitted As Inpatient Condition: Good Discharge Instructions Interventions: ED Discharge Assessment Last Done: 06/11/25 02:33
[2025-06-11] MEDS: ACETAMINOPHEN 1,000 MG/100 ML VIAL IV STA (00:25)
--- NOTE | 2025-06-11 00:46 | CT Scan Report ---
Exam(s): CT ABDOMEN + PELVIS With Contrast IV Amt: 93ML OPTIRAY 320 EXAM: CT Abdomen and Pelvis With Intravenous Contrast CLINICAL HISTORY: Right lower quadrant Pain. TECHNIQUE: Axial computed tomography images of the abdomen and pelvis with intravenous contrast. CTDI is 27.72 mGy and DLP is 1296.95 mGy-cm. Automated exposure control was utilized for the study. A dose lowering technique was utilized adhering to the principles of ALARA. CONTRAST: Patient received 93ML OPTIRAY 320 of IV contrast COMPARISON: CT abdomen and pelvis 05/29/2025. FINDINGS: Lung bases: Unremarkable. No mass. No consolidation. ABDOMEN: Liver: Unremarkable. No mass. Gallbladder and bile ducts: Unremarkable. No calcified stones. No ductal dilation. Pancreas: Unremarkable. No mass. No ductal dilation. Spleen: Unremarkable. No splenomegaly. Adrenals: Unremarkable. No mass. Kidneys and ureters: Simple appearing bilateral renal cysts are present, no follow up is needed. Nonobstructing left renal calculi. No hydronephrosis. Stomach and bowel: Significant stool throughout the colon is concerning for constipation. Diverticulosis. No obstruction. No mucosal thickening. PELVIS: Appendix: No findings to suggest acute appendicitis. Bladder: Unremarkable. No mass. Reproductive: A mass in the uterus measures 2.2 cm. The adnexa are unremarkable. ABDOMEN and PELVIS: Intraperitoneal space: Unremarkable. No free air. No significant fluid collection. Bones/joints: There are degenerative changes of the spine. No acute fracture. There are surgical changes of the both SI joints. Flowing anterior osteophytes is concerning for bone view spine. No dislocation. There is levoscoliosis of the thoracolumbar spine. Soft tissues: Unremarkable. Vasculature: Moderate atherosclerosis. No aneurysm. Lymph nodes: Unremarkable. No enlarged lymph nodes. IMPRESSION: 1. No acute finding of the abdomen or pelvis. 2. Significant stool throughout the colon is concerning for constipation. 3. Nonobstructing left renal calculi. 4. Diverticulosis. 5. A mass in the uterus measures 2.2 cm. This likely represents a fibroid although nonspecific. 6. Flowing anterior osteophytes is concerning for bone view spine. Electronically signed by: Ashley Carroll MD 06/11/25 00:44 AM
[2025-06-11] MEDS ORDERED: PROMETHAZINE 12.5 MG/50.5 ML BAG IV PRN (01:10)
[2025-06-11] MEDS ORDERED: ACETAMINOPHEN 325 MG TAB PO PRN (01:10)
[2025-06-11] MEDS: DICYCLOMINE HCL 10 MG CAP PO ONE (01:16)
[2025-06-11] MEDS: KETOROLAC TROMETHAMINE 15 MG/ML VIAL IV ONE (01:16)
--- NOTE | 2025-06-11 01:51 | History & Physical Report ---
Date of Service June 11, 2025 Assessment & Plan (1) Acute hypoxemic respiratory failure: Plan: Assessment and plan below following discussion of case with ED provider and reviewing patient history/pertinent normal/abnormal diagnostic test results. Acute hypoxemic respiratory failure Possible viral bronchitis Rule out pneumonia Complicated UTI no sepsis for now ? Uterine mass contributing to right-sided abdominal pain Hypertension stable chronic diastolic heart failure (EF 55 to 60%, TTE 2024), patient euvolemic to dry hx HOLYL/CPAP noncompliance CAD sp stenting/PVD (ascending thoracic aorta enlargement) hxDVT on Eliquis DM2 diet-controlled, well-controlled as of recent hemoglobin A1c of 6.1 from March 2025 hypothyroidism, euthyroid as of recent outpatient TSH chronic pain/opioid abuse as per records Hypokalemia secondary to emesis/home diuretic Rx Admit to medical telemetry Supplemental O2 Baseline VBG Neb trial BioFire respiratory panel swab CT chest re: low O2 and cough rule out pneumonia Urine CS, cefepime [facility] consult for fibroid tumor on imaging Replace potassium, hold home diuretic until patient euvolemic ISS BG goal [id number], carb count coverage DVT prophylaxis. Eliquis Full code Text document was generated using [employer] voice recognition software. It may contain grammatical or spelling errors. Kindly contact undersigned for clarification of any documentation item in question. History of Present Illness Chief Complaint: Right-sided abdominal pain Primary Care Provider: Svetlana Jacobs DO History obtained from patient and records. Medical history significant for chronic diastolic heart failure (EF 55 to 60%, TTE 2024), HOLLY CPAP noncompliance, CAD sp stenting, PVD, HTN, hyperlipidemia,DVT on Eliquis, DM2 diet-controlled, hypothyroidism, GERD, history of cyclical vomiting as per records, PTSD/mood disorder, post polio syndrome/scoliosis as per records, chronic pain, opioid abuse as per records. Monthly admissions since March,. Recent confinement 2 weeks ago for cyclic vomiting syndrome and migraine hea dache. Haldol effective for patient vomiting symptoms. Patient woke up with achy right sided abdominal pain yesterday morning later followed by emesis. Denies fever or chills, hematuria. No vaginal bleeding. No unusual chest pain, SOB, headache symptoms. Cough symptoms productive of clear sputum the last 2 weeks. Denies aspiration. Not sure about sick contacts. Lowest O2 sats of 80s documented at the ER. IV ceftriaxone administered at the ER. 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 Allergies Allergy/AdvReac Type Severity Reaction Status Date / Time adhesive tape Allergy Intermediate Skin Verified 05/29/25 08:10 irritation latex Allergy Intermediate Rash Verified 05/29/25 08:10 aspirin AdvReac Intermediate Bleeding Verified 05/29/25 08:10 ulcers (full dose ASA) NSAIDS (Non-Steroidal AdvReac Intermediate Hx Verified 05/29/25 08:10 Anti-Inflamma bleeding ulcers (advised to avoid) Home Medications Medication Instructions Recorded Confirmed Type atorvastatin 40 mg tablet (Lipitor) 40 mg PO QAM 12/13/18 06/11/25 History levothyroxine 75 mcg tablet 75 mcg PO DAILYBB 12/13/18 06/11/25 History promethazine 25 mg tablet 25 mg PO Q6H PRN Nausea 05/12/19 06/11/25 History nitroglycerin 0.3 mg sublingual 0.3 mg sublingual DIRECTED PRN 05/23/19 06/11/25 History tablet (Nitrostat) Chest Pain olopatadine 0.2 % eye drops 1 drp ophthalmic (eye) QAM 05/23/19 06/11/25 History tizanidine 4 mg tablet 4 mg PO BID PRN Muscle Spasm 04/03/20 06/11/25 History furosemide 20 mg tablet 40 mg PO QAM 10/05/20 06/11/25 History apixaban 5 mg tablet (Eliquis) 5 mg PO BID 10/11/21 06/11/25 History metoprolol succinate 100 mg 100 mg PO QAM 01/20/23 06/11/25 History tablet,extended release 24 hr semaglutide 2 mg/dose (8 mg/3 mL) 2 mg subcut WK 01/20/23 06/11/25 History subcutaneous pen injector (Ozempic) buspirone 10 mg tablet 10 mg PO BID 02/20/23 06/11/25 History ondansetron 4 mg disintegrating 4 mg PO Q6H PRN nausea and 10/26/23 06/11/25 Rx tablet vomiting #10 tabs pantoprazole 40 mg tablet,delayed 40 mg PO BID #60 tabs 12/21/23 06/11/25 Rx release aspirin 81 mg tablet,delayed 81 mg PO QAM #0 tabs 02/19/24 06/11/25 Rx release trazodone 150 mg tablet 300 mg PO HS 12/28/24 06/11/25 History epinephrine 0.3 mg/0.3 mL 0.3 mg IM DIRECTED PRN Allergic 03/31/25 06/11/25 History injection, auto-injector (EpiPen) Reaction lidocaine 5 % topical patch 1 patch transdermal HS #30 ea 04/06/25 06/11/25 Rx oxycodone 5 mg tablet 5 mg PO Q6H PRN pain 05/29/25 06/11/25 History haloperidol 5 mg tablet 5 mg PO Q4H PRN nausea/vomiting 05/30/25 06/11/25 Rx #20 tabs potassium chloride 10 mEq 20 meq (2 x 10 mEq) PO QAM #60 tabs 05/30/25 06/11/25 Rx tablet,extended release(part/cryst) Past Med/Surg History Problem List (Updated 06/11/25 @ 03:27 by Background Joe) Acute UTI (urinary tract infection) (Acute) Abdominal pain (Acute) History of venous thromboembolism Chronic diastolic congestive heart failure Diabetes mellitus type 2, controlled Uncontrolled hypertension Cyclical vomiting associated with migraine Asymptomatic hypertensive urgency Abdominal pain, acute (Acute) Intractable nausea and vomiting (Acute) Headache (Acute) Acute migraine Failure of outpatient treatment (Acute) Cervical disc disease (Acute) Right shoulder pain (Acute) Cervical radiculopathy Chronic pain after musculoskeletal injury Acute hypotension Status post reverse total arthroplasty of right shoulder History of nickel allergy Right rotator cuff tear arthropathy Chronic right shoulder pain Proctocolitis (Acute) 02/16/24 Postmenopausal bleeding 02/14/24 Right shoulder pain History of arthroscopy of right shoulder 10/23/23 ([facility]) Right shoulder arthroscopy, I&D of subacromial hematoma Encounter for pre-operative examination History of arthroscopy of right shoulder rt shoulder, 06/2023 Dilation of thoracic aorta mild per cardio; monitoring HOLLY (obstructive sleep apnea) noncompliant with CPAP per cardio note History of post-polio syndrome Orthostatic hypotension 07/02/23 Dysfunction of right rotator cuff History of rotator cuff surgery Barretts esophagus on protonix; follows with GI Peroneus brevis tendinitis Hypomagnesemia (Acute) 04/16/23 History of pulmonary embolism Non-specific colitis 04/06/23 S/P right rotator cuff repair Diabetes mellitus, type 2 06/26/23 Ha1c: 5.8% Constipation 01/14/23 Rotator cuff tear Rotator cuff tendinitis DVT (deep venous thrombosis) (Acute) Migraine (Acute) Generalized weakness (Acute) 04/11/20 Ambulatory dysfunction Chronic pain (Chronic) History of vascular access device (Chronic) Left upper chest port (*not a power port*) Mood disorder (Chronic) CAD (coronary artery disease) 2 BMS to LAD (2017) History of anesthesia reaction (Chronic) Awareness with spinal surgeries Ovarian cyst (Chronic) X 2 Degenerative disc disease (Chronic) History of laminectomy (Chronic) and fusion "entire spine is fused(except cervical spine)" [facility] (Dr Catherine) 1989' Fusion of spine (Chronic) LUMBAR Osteoarthritis (Chronic) History of appendectomy (Chronic) Colitis (Chronic) 02/15/24 Anemia (Chronic) History of tonsillectomy (Chronic) History of adenoidectomy (Chronic) Post traumatic stress disorder (Chronic) Depression Restless leg syndrome (Chronic) Migraine (Chronic) Hx, no recent issues Deep vein thrombosis (Chronic) ~2014, unknown cause Pulmonary embolism (Chronic) ~2014 (UNSURE OF REASON) History of heart artery stent (Chronic) 2017-x2 STENTS PLACED AT [facility] (DR. DAVILA) Myocardial Infarction (Chronic) NSTEMI 2016; s/p 2 BMS to LAD Hypertension H/O ovarian cystectomy (Chronic) x2 H/O repair of right rotator cuff (Chronic) H/O spinal fusion (Chronic) Multiple Dyslipidemia (Chronic) Cervical spondylolysis (Chronic) Scoliosis (Chronic) Medical History History of blood transfusion Osteoarthritis History of colitis Migraine Hx, no recent issues HTN (hypertension) h/o orthostatic hypotension in 2022; controlled, stable per pt Port-A-Cath in place left chest wall, replacement 04/18/24, power port Dyslipidemia Depression Cervical spondylosis no ROM limits Barretts esophagus on protonix; follows with GI History of nickel allergy recent allergy testing showed she is not allergic to nickel Diabetes NIDDM History of anemia PTSD (post-traumatic stress disorder) RLS (restless legs syndrome) Hx of myocardial infarction (~2016) NSTEMI > BMS x2 to LAD Scoliosis CAD (coronary artery disease) BMS x2 to LAD Hx of post-polio syndrome HOLLY (obstructive sleep apnea) pt denies Dilation of thoracic aorta Echo 01/2024: Aortic root and proximal ascending aorta are normal sized Hx of deep venous thrombosis (~2017) DVT > PE Hx pulmonary embolism (~2017) DVT > PE Chronic pain syndrome Back Cyclic vomiting syndrome hx, no issues in "years" Hx of Clostridium difficile infection (~2016) Remote hx History of COVID-19 (~10/2021) treated inpatient at [facility]/Covid PNA > symptoms resolved Chronic heart failure with preserved ejection fraction (HFpEF) Follows with greg jarrett [facility] cardio Hypothyroidism Anxiety Hyperlipidemia duplicate Surgical History History of reverse total replacement of right shoulder joint 09/07/24, [facility] Hx of laminectomy and fusion "entire spine is fused(except cervical spine)" [facility] (Dr Catherine) 1989' Hx of dilation and curettage (06/2024) [facility]-- recent rectal and vaginal bleeding due to polyps Hx of knee surgery right-open meniscus repair History of anesthesia reaction Awareness with spinal surgery History of cataract surgery R/L S/P panniculectomy Hx of appendectomy History of tonsillectomy and adenoidectomy Hx of ovarian cystectomy x2 Hx of heart artery stent 2017- BMS x2 Hx of cardiac cath 2016- BMS x2 Hx of arthroscopy of shoulder Right shoulder, 01/2023, 06/2023, 10/23/23 ([facility]) Right shoulder arthroscopy, I&D of subacromial hematoma Hx of spinal surgery Multiple back surgeries History of colonoscopy History of esophagogastroduodenoscopy (EGD) History of back surgery bilateral SI Joint replacements (~2020/[facility]) S/P hardware removal Removal of all back hardware (~2002) [facility] Family History Mother Hypertension Father Hypertension Other No family history of adverse response to anesthesia Social History Smoking Status: Never smoker Second Hand Exposure: No; Do You Dip or Chew Tobacco: No; Hx Alcohol Use: No Hx Substance Use: No Preferred Language: Irish Communication Ability: Effective Visual Impairment: Limited Hearing Ability: Normal Patient Resource Coordinator Required: No Beliefs That Will Affect Care: None marital status: Current Living Situation: Alone current occupational status: retired How many Children do You have: 2 Other Information That Helps Us Care for You: No Feels Safe at Home: Yes Safety Concerns: Feels Safe At This Time Assistive Devices: None Review of Systems Review of Systems: As per HPI, all other systems reviewed and negative Physical Exam Physical Exam: GENERAL: obese, pleasant, no respiratory distress SKIN: Normal color, warm HEENT: [place] palpebral conjunctivae, no ptosis, dry buccal mucosa, nasal cannula in place NECK : Supple, short neck, no tenderness CHEST : Decreased breath sounds, no tenderness HEART : RRR, no obvious murmurs ABDOMEN: Some distention, right-sided abdominal tenderness EXTREMITIES : Minimal LE swelling, no LE tenderness NEUROLOGIC : Coherent, no facial asymmetry, no other gross focality Results & Data Results & Data Vital Signs (Past 12 Hours) Vital Signs Temp Pulse Pulse Resp BP BP Pulse Ox 06/11/25 00:00 80 13 128/91 98 06/10/25 23:09 83 20 105/72 96 06/10/25 22:33 82 12 96 06/10/25 22:03 83 15 133/83 94 06/10/25 21:19 89 L 06/10/25 20:58 88 20 135/82 88 L 06/10/25 19:13 91 H 06/10/25 18:42 37.2 C 91 H 16 173/94 H 92 O2 Del Method O2 Flow Rate 06/11/25 00:00 06/10/25 23:09 Nasal Cannula 3 06/10/25 22:33 Nasal Cannula 3 06/10/25 22:03 Nasal Cannula 3 06/10/25 21:19 Nasal Cannula 0 06/10/25 20:58 Room Air 06/10/25 19:13 06/10/25 18:42 Room Air Laboratory Results Laboratory Results WBC 10.94 K/ul (4.8-10.8) H 06/10/25 19:05 RBC 4.69 M/uL (4.20-5.40) 06/10/25 19:05 Hgb 14.0 g/dl (12.0-16.0) 06/10/25 19:05 Hct 40.7 % (37.0-47.0) 06/10/25 19:05 MCV 86.8 fL (80.0-100.0) 06/10/25 19:05 MCH 29.9 pg (25.0-34.0) 06/10/25 19:05 MCHC 34.4 g/dL (32.0-36.0) 06/10/25 19:05 RDW Std Deviation 46.4 fL (36.4-46.3) H 06/10/25 19:05 RDW Coeff of [place] 14.6 % (11.5-14.5) H 06/10/25 19:05 Plt Count 298 K/uL (130-400) 06/10/25 19:05 MPV 9.3 fL (9.4-12.4) L 06/10/25 19:05 Immature Gran % (Auto) 0.2 % 06/10/25 19:05 Neut % (Auto) 75.5 % 06/10/25 19:05 Lymph % (Auto) 15.8 % 06/10/25 19:05 [place] % (Auto) 6.5 % 06/10/25 19:05 Eos % (Auto) 1.4 % 06/10/25 19:05 Baso % (Auto) 0.6 % 06/10/25 19:05 Neut # (Auto) 8.26 K/uL (1.40-6.50) H 06/10/25 19:05 Lymph # (Auto) 1.73 K/uL (1.20-3.40) 06/10/25 19:05 [place] # (Auto) 0.71 K/uL (0.11-0.59) H 06/10/25 19:05 Eos # (Auto) 0.15 K/uL (0.00-0.50) 06/10/25 19:05 Baso # (Auto) 0.07 K/uL (0.00-0.20) 06/10/25 19:05 Immature Gran # (Auto) 0.02 K/uL (0.01-0.20) 06/10/25 19:05 PT 11.4 Seconds (9.0-12.0) 06/10/25 19:05 INR 1.1 (0.9-1.1) 06/10/25 19:05 Sodium 140 mmol/L (136-145) 06/10/25 19:05 Potassium 3.2 mmol/L (3.5-5.1) L 06/10/25 19:05 Chloride 104 mmol/L (98-107) 06/10/25 19:05 Carbon Dioxide 27 mmol/L (21-32) 06/10/25 19:05 Anion Gap 9 (3-11) 06/10/25 19:05 BUN 14 mg/dl (6-23) 06/10/25 19:05 Creatinine 0.82 mg/dl (0.6-1.2) 06/10/25 19:05 Est Cr Clr Drug Dosing 60.2 ml/min 06/10/25 19:05 eGFR 73.63 06/10/25 19:05 BUN/Creatinine Ratio 17.1 (10-20) 06/10/25 19:05 Glucose 135 mg/dl (70-99(Fasting)) H 06/10/25 19:05 Calcium 9.2 mg/dl (8.6-10.3) 06/10/25 19:05 Magnesium 1.6 mg/dl (1.7-2.4) L 06/10/25 19:05 Total Bilirubin 0.5 mg/dl (0.2-1.0) 06/10/25 19:05 AST 24 U/L (13-39) 06/10/25 19:05 ALT 21 U/L (7-52) 06/10/25 19:05 Alkaline Phosphatase 106 U/L (34-104) H 06/10/25 19:05 Total Protein 7.4 gm/dl (6.0-8.3) 06/10/25 19:05 Albumin 4.1 gm/dl (3.4-5.0) 06/10/25 19:05 Globulin 3.3 gm/dl (2.5-4.0) 06/10/25 19:05 Albumin/Globulin Ratio 1.2 (0.9-2) 06/10/25 19:05 Lipase 25 U/L (11-82) 06/10/25 19:05 Procalcitonin < 0.02 ng/ml (0-0.5) 06/10/25 19:05 Urine Color Yellow 06/10/25 21:06 Urine Appearance Clear (Clear) 06/10/25 21:06 Urine pH 6.5 (4.5-7.5) 06/10/25 21:06 Ur Specific [place] 1.019 (1.000-1.030) 06/10/25 21:06 Urine Protein Negative (Negative) 06/10/25 21:06 Urine Glucose (UA) Negative (Negative) 06/10/25 21:06 Urine Ketones Negative (Negative) 06/10/25 21:06 Urine Blood Negative (Negative) 06/10/25 21:06 Urine Nitrite Positive (Negative) A 06/10/25 21:06 Urine Bilirubin Negative (Negative) 06/10/25 21:06 Urine Urobilinogen Negative (Negative) 06/10/25 21:06 Ur Leukocyte Esterase 1+ (Negative) H 06/10/25 21:06 Urine WBC (Auto) 6-10 /hpf (0-5) H 06/10/25 21:06 Urine RBC (Auto) 0-2 /hpf (0-2) 06/10/25 21:06 U Hyaline Cast (Auto) 0-2 /lpf (0-2) 06/10/25 21:06 U Epithel Cells (Auto) 0-2 /hpf (0-2) 06/10/25 21:06 Urine Bacteria (Auto) 4+ (None Seen) H 06/10/25 21:06 Urine Comment 06/10/25 21:06 Impressions Abdomen/Pelvis CT 06/10/25 20:05 Exam(s): CT ABDOMEN + PELVIS With Contrast IV Amt: 93ML OPTIRAY 320 EXAM: CT Abdomen and Pelvis With Intravenous Contrast CLINICAL HISTORY: Right lower quadrant Pain. TECHNIQUE: Axial computed tomography images of the abdomen and pelvis with intravenous contrast. CTDI is 27.72 mGy and DLP is 1296.95 mGy-cm. Automated exposure control was utilized for the study. A dose lowering technique was utilized adhering to the principles of ALARA. CONTRAST: Patient received 93ML OPTIRAY 320 of IV contrast COMPARISON: CT abdomen and pelvis 05/29/2025. FINDINGS: Lung bases: Unremarkable. No mass. No consolidation. ABDOMEN: Liver: Unremarkable. No mass. Gallbladder and bile ducts: Unremarkable. No calcified stones. No ductal dilation. Pancreas: Unremarkable. No mass. No ductal dilation. Spleen: Unremarkable. No splenomegaly. Adrenals: Unremarkable. No mass. Kidneys and ureters: Simple appearing bilateral renal cysts are present, no follow up is needed. Nonobstructing left renal calculi. No hydronephrosis. Stomach and bowel: Significant stool throughout the colon is concerning for constipation. Diverticulosis. No obstruction. No mucosal thickening. PELVIS: Appendix: No findings to suggest acute appendicitis. Bladder: Unremarkable. No mass. Reproductive: A mass in the uterus measures 2.2 cm. The adnexa are unremarkable. ABDOMEN and PELVIS: Intraperitoneal space: Unremarkable. No free air. No significant fluid collection. Bones/joints: There are degenerative changes of the spine. No acute fracture. There are surgical changes of the both SI joints. Flowing anterior osteophytes is concerning for bone view spine. No dislocation. There is levoscoliosis of the thoracolumbar spine. Soft tissues: Unremarkable. Vasculature: Moderate atherosclerosis. No aneurysm. Lymph nodes: Unremarkable. No enlarged lymph nodes. IMPRESSION: 1. No acute finding of the abdomen or pelvis. 2. Significant stool throughout the colon is concerning for constipation. 3. Nonobstructing left renal calculi. 4. Diverticulosis. 5. A mass in the uterus measures 2.2 cm. This likely represents a fibroid although nonspecific. 6. Flowing anterior osteophytes is concerning for bone view spine. Electronically signed by: Ashley Carroll MD 06/11/25 00:44 AM Diagnostic Findings Chest x-ray as per my interpretation : Cardiomegaly, atelectasis EKG as per my interpretation :Rate 90, NSR, normal axis, inferior infarct, anterior infarct, T wave flattening inferior leads
[2025-06-11] MEDS: POTASSIUM CHLORIDE PWD 20 MEQ PACK PO STA (02:17)
[2025-06-11] MEDS: SODIUM CHLORIDE 0.9% 1,000 ML IV SCH (02:17)
[2025-06-11] MEDS: ALBUT/IPRATROP 3MG/0.5MG NEB 3 ML VIAL NEB STA (02:18)
[2025-06-11] MEDS: POTASSIUM CHLORIDE CRTAB 20 MEQ TABCR PO STA (02:18)
[2025-06-11] MEDS: CEFEPIME 2000MG 2,000 MG/20 ML SYR IV STA (02:18)
[2025-06-11 02:27] LABS: Base Excess VBG 1.7 mEq/L; HCO3 VBG 28 mmol/L; Oxygen Saturation VBG 67.3 %; PCO2 VBG 48 mmHg (38-50); PO2 VBG 40 mmHg; pH VBG 7.37 (7.36-7.41)
[2025-06-11] MEDS ORDERED: POLYETHYLENE (MIRALAX) 17 GM PACK PO PRN (03:05)
--- NOTE | 2025-06-11 03:12 | XRay Report ---
EXAM: XR chest 1V portable CLINICAL HISTORY: low o2 TECHNIQUE: An X-ray image of the chest is obtained in AP portable projection. COMPARISON: CR 05/29/2025. FINDINGS: Pulmonary Parenchyma: Lungs are clear bilaterally. No evidence of consolidation, collapse, or focal opacities. No pulmonary nodules are identified. Blunted left costophrenic angle; pleural effusion or pleural thickening. Adequate position of the left subclavian vein catheter is located with its tip below the level of the byron at the level of the cavo-atrial junction. unchanged. Heart and Mediastinum: Mild cardiomegaly with prominent bilateral vascular shadows. No mediastinal widening or masses. No hilar or mediastinal lymphadenopathy. Bony Thorax: Bony thorax appears intact without fractures. Right-sided thoracic scoliosis. Right shoulder arthroplasty. Soft Tissues: Soft tissues overlying the chest wall are unremarkable. Sternotomy wires. IMPRESSION: 1. No time interval changes compared to CR 05/29/2025. 2. Mild cardiomegaly. 3. Blunted left costophrenic angle; pleural effusion or pleural thickening. 4. Adequate position of the left subclavian vein catheter. Electronically signed by Yonas Perez 06-11-2025 03:11 AM
[2025-06-11 03:21] LABS: Chlamydia pneumoniae PCR Not Detected (NotDetected); Coronavirus 229E PCR Not Detected (NotDetected); Coronavirus CoV-2 (COVID19)PCR Not Detected (NotDetected); Coronavirus HKU1 PCR Not Detected (NotDetected); Coronavirus NL63 PCR Not Detected (NotDetected); Coronavirus OC43PCR Not Detected (NotDetected); Human Metapneumovirus PCR Not Detected (NotDetected); Parainfluenza Virus 1 PCR Not Detected (NotDetected); Parainfluenza Virus 2 PCR Not Detected (NotDetected); Parainfluenza Virus 3 PCR Not Detected (NotDetected); Parainfluenza Virus 4 PCR Not Detected (NotDetected); Respiratory Syncytial VirusPCR Not Detected (NotDetected); Rhinovirus/Enterovirus PCR Not Detected (NotDetected)
[2025-06-11] MEDS ORDERED: GLUCOSE 10 TAB/TUBE PO PRN (03:37)
[2025-06-11] MEDS ORDERED: DEXTROSE 50% 50 ML SYRINGE IV PRN (03:37)
[2025-06-11] MEDS ORDERED: GLUCAGON FOR INJ 1 MG VIAL SQ PRN (03:37)
[2025-06-11] MEDS ORDERED: GLUCOSE 40% GEL 15 GM TUBE PO PRN (03:37)
[2025-06-11] MEDS ORDERED: CARBOHYDRATES FOR HYPOGLYCEMIA PO PRN (03:37)
[2025-06-11] MEDS: DOCUSATE SODIUM/SENNA 50/8.6MG TAB PO SCH (03:50)
[2025-06-11] MEDS: INSULIN ASPART PER UNIT CHARGE SC SCH (03:50)
--- NOTE | 2025-06-11 04:33 | CT Scan Report ---
EXAM: CT chest diagnostic wo con CLINICAL HISTORY: low o2 TECHNIQUE: Contiguous axial images were obtained from the neck base through the upper abdomen without contrast. In addition, sagittal and coronal reconstructions were performed to potentially increase the sensitivity for the detection of disease. CT scan was performed according to ALARA (as low as reasonable achievable). COMPARISON: 06/11/2025 00:38:00 RESIDENTIAL SOLAR CONSULTANT. FINDINGS: Atelectatic bands are seen in the left lower lobe. Rest of the lungs are clear, with no focal areas of consolidation. No pulmonary nodules are seen. The central airways are patent. There are no pleural effusions. No pneumothorax is seen. Central venous catheter with subcutaneous port are seen insitu with the tip of the catheter in the superior vena cava close to its junction with the right atrium. Evaluation of the mediastinum and jaime is limited due to the lack of intravenous contrast. No axillary or mediastinal adenopathy is identified. The heart, aorta, and pulmonary arteries are of normal size and configuration. There are appreciable coronary artery and aortic atherosclerotic calcifications. No pericardial effusion is identified. The thyroid is unremarkable. Metallic artifacts are seen arising from the right shoulder replacement prosthesis. No aggressive appearing osseous lesions are identified. Degenerative changes are seen in the visualised spine. Note is made of hyperdense calculi in the left renal upper polar calyces. IMPRESSION: 1. Atlectatic bands in left lower lobe - limited significance. Electronically signed by Dinesh Stone 06-11-2025 04:33 AM
[2025-06-11] MEDS: LEVOTHYROXINE SODIUM 75 MCG TABLET PO SCH (06:05)
[2025-06-11 06:38] LABS: Hematocrit (blood only) 35.0 % (37.0-47.0); Hemoglobin 11.8 g/dl (12.0-16.0); Immature Granulocytes # (auto) 0.02 K/uL (0.01-0.20); Immature Granulocytes % (auto) 0.2 %; Mean Corpuscular Hemoglobin 29.9 pg (25.0-34.0); Mean Corpuscular Volume 88.6 fL (80.0-100.0); Platelet Count 235 K/uL (130-400); RDW Standard Deviation 47.6 fL (36.4-46.3); Red Blood Count 3.95 M/uL (4.20-5.40); White Blood Count 8.91 K/ul (4.8-10.8)
[2025-06-11 07:04] LABS: Anion Gap 6.0 (3-11); Blood Urea Nitrogen 14.0 mg/dl (6-23); Calcium 8.5 mg/dl (8.6-10.3); Carbon Dioxide 28.0 mmol/L (21-32); Chloride 105.0 mmol/L (98-107); Creatinine Clr Calc Pharmacy 63.2 ml/min; Glucose 87.0 mg/dl (70-99(Fasting)); Magnesium 1.9 mg/dl (1.7-2.4); Potassium 3.8 mmol/L (3.5-5.1); Sodium 139.0 mmol/L (136-145)
[2025-06-11 08:04] VITALS: RESP 18
[2025-06-11] MEDS: MAGNESIUM CITRATE 296 ML/BTL PO SCH (09:21)
[2025-06-11] MEDS: APIXABAN 5 MG TABLET PO SCH (09:22)
[2025-06-11] MEDS: ATORVASTATIN 40 MG TAB PO SCH (09:22)
[2025-06-11] MEDS: ASPIRIN 81 MG ECTAB PO SCH (09:22)
[2025-06-11] MEDS: METOPROLOL SUCC 50MG EXT REL TAB PO SCH (09:22)
[2025-06-11] MEDS: busPIRone 5 MG TAB PO SCH (09:22)
[2025-06-11] MEDS: POLYETHYLENE (MIRALAX) 17 GM PACK PO SCH (09:29)
[2025-06-11 11:14] VITALS: BP 142/84; TEMP 98.1; O2SAT 93
[2025-06-11] MEDS: CEFEPIME 2000MG 2,000 MG/20 ML SYR IV SCH (11:24)
--- NOTE | 2025-06-11 12:45 | Electrocardiogram Report ---
Test Reason : Blood Pressure : */* mmHG Vent. Rate : 92 BPM Atrial Rate : 92 BPM P-R Int : 196 ms QRS Dur : 92 ms QT Int : 358 ms P-R-T Axes : -19 -9 -19 degrees QTcB Int : 442 ms Normal sinus rhythm Inferior infarct (cited on or before 26-Sep-2006) Anterior infarct (cited on or before 21-Dec-2006) Abnormal ECG When compared with ECG of 29-May-2025 01:39, Questionable change in initial forces of Anterior leads Confirmed by Alexx Duarte ([id number]) on 06/11/2025 12:45:26 PM Referred By: REFERRED SELF Confirmed By: Alexx Duarte
--- NOTE | 2025-06-11 13:02 | Discharge Summary ---
Discharge Summary Date of Service June 11, 2025 Principal Dx & Hospital Course #1 = Principal Diagnosis (1) Acute UTI (urinary tract infection): (2) Constipation by delayed colonic transit: (3) Hypoxia: (4) Chronic diastolic congestive heart failure: (5) Diabetes mellitus type 2, controlled: Plan Patient 75-year-old female presenting to the emergency room with acute abdominal pain. Also noted to be slightly hypoxic. Imaging in the emergency room was consistent with constipation. Urinalysis consistent with urinary tract infection. Patient was admitted to the hospital. She was given IV fluids and antibiotics. By the following morning she had significant improvement of her symptoms. Acute abdominal pain essentially resolved. Suspect the patient's abdominal pain is combination of UTI as well as some constipation. Given MiraLAX and mag citrate. Diet was advanced. Patient was only transiently hypoxic. Currently on room air without any shortness of breath. Patient was eager to get home. Has a important appointment tomorrow morning. Her activity was increased throughout the afternoon. Urine culture was growing E. coli. Based on previous sensitivities E. coli has been pansensitive. Anticipate jose maria ent we discharged home this afternoon on oral antibiotics for UTI, but bowel regimen and follow-up with outpatient provider Notes For Next Care Provider Continue to manage chronic medical issues Medication Changes From Visit Keflex for UTI Senna and MiraLAX for chronic constipation Admission HPI Per Admitting Provider History obtained from patient and records. Medical history significant for chronic diastolic heart failure (EF 55 to 60%, TTE 2024), HOLLY CPAP noncompliance, CAD sp stenting, PVD, HTN, hyperlipidemia,DVT on Eliquis, DM2 diet-controlled, hypothyroidism, GERD, history of cyclical vomiting as per records, PTSD/mood disorder, post polio syndrome/scoliosis as per records, chronic pain, opioid abuse as per records. Monthly admissions since March,. Recent confinement 2 weeks ago for cyclic vomiting syndrome and migraine headache. Haldol effective for patient vomiting symptoms. Patient woke up with achy right sided abdominal pain yesterday morning later followed by emesis. Denies fever or chills, hematuria. No vaginal bleeding. No unusual chest pain, SOB, headache symptoms. Cough symptoms productive of clear sputum the last 2 weeks. Denies aspiration. Not sure about sick contacts. Lowest O2 sats of 80s documented at the ER. IV ceftriaxone administered at the ER. 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 Lungs: Clear to auscultation, decreased, no wheezes rales or rhonchi CV: S1-S2, regular Abdomen: Soft, nontender, nondistended, no guarding, no rigidity Extremities: No significant edema Neuro: No focal deficits Psych: Cooperative, normal mood Updated Medication List Medication Instructions Recorded Confirmed Type atorvastatin 40 mg tablet (Lipitor) 40 mg PO QAM 12/13/18 06/11/25 History levothyroxine 75 mcg tablet 75 mcg PO DAILYBB 12/13/18 06/11/25 History promethazine 25 mg tablet 25 mg PO Q6H PRN Nausea 05/12/19 06/11/25 History nitroglycerin 0.3 mg sublingual 0.3 mg sublingual DIRECTED PRN 05/23/19 06/11/25 History tablet (Nitrostat) Chest Pain olopatadine 0.2 % eye drops 1 drp ophthalmic (eye) QAM 05/23/19 06/11/25 History tizanidine 4 mg tablet 4 mg PO BID PRN Muscle Spasm 04/03/20 06/11/25 History furosemide 20 mg tablet 40 mg PO QAM 10/05/20 06/11/25 History apixaban 5 mg tablet (Eliquis) 5 mg PO BID 10/11/21 06/11/25 History metoprolol succinate 100 mg 100 mg PO QAM 01/20/23 06/11/25 History tablet,extended release 24 hr semaglutide 2 mg/dose (8 mg/3 mL) 2 mg subcut WK 01/20/23 06/11/25 History subcutaneous pen injector (Ozempic) buspirone 10 mg tablet 10 mg PO BID 02/20/23 06/11/25 History ondansetron 4 mg disintegrating 4 mg PO Q6H PRN nausea and 10/26/23 06/11/25 Rx tablet vomiting #10 tabs pantoprazole 40 mg tablet,delayed 40 mg PO BID #60 tabs 12/21/23 06/11/25 Rx release aspirin 81 mg tablet,delayed 81 mg PO QAM #0 tabs 02/19/24 06/11/25 Rx release trazodone 150 mg tablet 300 mg PO HS 12/28/24 06/11/25 History epinephrine 0.3 mg/0.3 mL 0.3 mg IM DIRECTED PRN Allergic 03/31/25 06/11/25 History injection, auto-injector (EpiPen) Reaction lidocaine 5 % topical patch 1 patch transdermal HS #30 ea 04/06/25 06/11/25 Rx oxycodone 5 mg tablet 5 mg PO Q6H PRN pain 05/29/25 06/11/25 History haloperidol 5 mg tablet 5 mg PO Q4H PRN nausea/vomiting 05/30/25 06/11/25 Rx #20 tabs potassium chloride 10 mEq 20 meq (2 x 10 mEq) PO QAM #60 tabs 05/30/25 06/11/25 Rx tablet,extended release(part/cryst) cephalexin 500 mg capsule 500 mg PO BID 5 days #10 caps 06/11/25 Rx polyethylene glycol 3350 17 17 g PO DAILY #850 grams 06/11/25 Rx gram/dose oral powder (Miralax) sennosides 8.6 mg capsule (senna) 8.6 mg PO BID #60 caps 06/11/25 Rx Hospital Stay Data Diagnostic Imagining Performed 06/10/25 20:05 CT abd pelvis IV con only Stat 06/11/25 02:10 CT chest diagnostic wo con Stat Reviewed imaging, laboratory and diagnostic studies. Pertinent findings as below. WBCs 8.9, improved Hemoglobin 11.8 Platelets of 235 Electrolytes stable Creatinine 0.77 Urine culture growing out E. coli greater than 100,000 colonies Viral respiratory panel negative Chest CT showed some atelectasis, no infiltrates, consolidations Pending Results Patient Have Any Pending Studies at Discharge: Yes Discharge Instructions Given to Patient (Per Discharging Provider) Your urine is growing E. coli, consistent with urinary tract infection. Complete course of antibiotics Strongly recommend a regular bowel regimen Total Time Total Time Spent Total Time Spent (In Minutes): 26
[2025-06-11 14:48] VITALS: PULSE 69
== END 2025-06-11 15:37 | disposition home or self-care (01) | DRG 689 ==
LOC: ED 18:46 → 2W 06-11 01:53